=== PATIENT | male | born 1955 | race Caucasian/White ===

== ENCOUNTER → 2018-10-03 10:05 | Outpatient (CLI) | payer MEDICARE, OTHER, SELFPAY ==
--- NOTE | 2018-10-03 10:14 | VDLE_ITS ---
Reason For Study: Increase Swelling RIGHT LEFT GSV is normal. CFV is compressible, spontaneous, phasic, CFV is compressible, spontaneous, phasic, competent, and demonstrates normal competent and demonstrates normal augmentation. augmentation. FV is compressible, spontaneous, phasic, competent and demonstrates normal augmentation. POP V is compressible, spontaneous, phasic, competent and demonstrates normal augmentation. T/P Trunk is compressible. PTV is compressible. RT PerV is compressible. Procedure Exam performed in department. A preliminary report was called and/or faxed to Radha @ 10:36 am. Interpretation Summary Deep veins of the right lower extremity are patent and compressible segmentally. There is no evidence of right lower extremity deep vein thrombosis. Valvular competence appears intact within the proximal deep venous system on the right . The right greater saphenous vein appears patent and compressible segmentally. Ordering Physician: KAYLEN RENE Referring Physician: DOCTOR, OUT OF TOWN Performed By: Ashlie Bruce RVT, RDCS and Student
--- OUTSIDE RECORDS SUMMARY | 2018-11-19 00:35 | XMS RPT_ITS ---
:1955 Author Organization [place] Support Name Relationship Address Phone ESTELLA COLUNGA Unavailable [address] + [place] [address] LULA INGRAM Unavailable Unavailable + JORGE ALBERTO VILLAGRAN Unavailable [address] [facility] [address] + [place] [address] JAMAR LORENZANA Unavailable [address] + [place] [address] ESTELLA COLUNGA Unavailable [address] + [place] [address] LULA INGRAM Unavailable Unavailable + JORGE ALBERTO VILLAGRAN Unavailable [address] [facility] [address] + [place] [address] JAMAR LORENZANA Unavailable [address] + [place] [address] LULA COLUNGA Unavailable [address] + [address] [place] [address] D Unavailable Unavailable Unavailable LULA COLUNGA Unavailable [address] + [address] [place] [address] D Unavailable Unavailable Unavailable LULA COLUNGA Unavailable [address] + [address] [place] [address] D Unavailable Unavailable Unavailable LULA COLUNGA Unavailable [address] + [address] [place] [address] D Unavailable Unavailable Unavailable LULA COLUNGA Unavailable [address] + [address] [place] [address] D Unavailable Unavailable Unavailable LULA COLUNGA Unavailable [address] + [address] [place] [address] D Unavailable Unavailable Unavailable LULA COLUNGA Unavailable [address] + [address] [place] [address] D Unavailable Unavailable Unavailable LULA COLUNGA Unavailable [address] + [address] [place] [address] D Unavailable Unavailable Unavailable LULA COLUNGA Unavailable [address] + [address] [place] [address] D Unavailable Unavailable Unavailable LULA COLUNGA Unavailable [address] + [address] [place] [address] D Unavailable Unavailable Unavailable LULA COLUNGA Unavailable [address] + [address] [place] [address] D Unavailable Unavailable Unavailable LULA COLUNGA Unavailable [address] + [address] [place] [address] D Unavailable Unavailable Unavailable LULA COLUNGA Unavailable [address] + [address] [place] [address] D Unavailable Unavailable Unavailable LULA COLUNGA Unavailable [address] + [address] [place] [address] D Unavailable Unavailable Unavailable LULA COLUNGA Unavailable [address] + [address] [place] [address] D Unavailable Unavailable Unavailable LULA COLUNGA Unavailable [address] + [address] [place] [address] D Unavailable Unavailable Unavailable LULA COLUNGA Unavailable [address] + [address] [place] [address] D Unavailable Unavailable Unavailable LULA COLUNGA Unavailable [address] + [address] [place] [address] D Unavailable Unavailable Unavailable LULA COLUNGA Unavailable [address] + [address] [place] [address] D Unavailable Unavailable Unavailable LULA COLUNGA Unavailable [address] + [address] [place] [address] D Unavailable Unavailable Unavailable LULA COLUNGA Unavailable [address] + [address] [place] [address] D Unavailable Unavailable Unavailable LULA COLUNGA Unavailable [address] + [address] [place] [address] D Unavailable Unavailable Unavailable BRENEMAN, ESTELLA Unavailable [address] + [place] [address] LULA INGRAM Unavailable Unavailable + JORGE ALBERTO VILLAGRAN Unavailable [address] [facility] [address] + [place] [address] KABETHANY, JAMAR Unavailable [address] + [place] [address] BRENEMAN, ESTELLA Unavailable [address] + [place] [address] LULA INGRAM Unavailable Unavailable + JORGE ALBERTO VILLAGRAN Unavailable [address] [facility] [address] + [place] [address] KABETHANY, JAMAR Unavailable [address] + [place] [address] BRENEMAN, ESTELLA Unavailable [address] + [place] [address] LULA INGRAM Unavailable Unavailable + JORGE ALBERTO VILLAGRAN Unavailable [address] [facility] [address] + [place] [address] KAUF, JAMAR Unavailable [address] + [place] [address] LULA COLUNGA Unavailable [address] + [address] [place] [address] D Unavailable Unavailable Unavailable LULA COLUNGA Unavailable [address] + [address] [place] [address] D Unavailable Unavailable Unavailable LULA COLUNGA Unavailable [address] + [address] [place] [address] D Unavailable Unavailable Unavailable LULA COLUNGA Unavailable [address] + [address] [place] [address] D Unavailable Unavailable Unavailable LULA COLUNGA Unavailable [address] + [address] [place] [address] D Unavailable Unavailable Unavailable LULA COLUNGA Unavailable [address] + [address] [place] [address] D Unavailable Unavailable Unavailable LULA COLUNGA Unavailable [address] + [address] [place] [address] D Unavailable Unavailable Unavailable LULA COLUNGA Unavailable [address] + [address] [place] [address] D Unavailable Unavailable Unavailable LULA COLUNGA Unavailable [address] + [address] [place] [address] D Unavailable Unavailable Unavailable LULA COLUNGA Unavailable [address] + [address] [place] [address] D Unavailable Unavailable Unavailable LULA COLUNGA Unavailable [address] + [address] [place] [address] D Unavailable Unavailable Unavailable BRENEMAN, ESTELLA Unavailable [address] + [place] [address] LULA INGRAM Unavailable Unavailable + JORGE ALBERTO VILLAGRAN Unavailable [address] [facility] [address] + [place] [address] KAUF, JAMAR Unavailable [address] + [place] [address] LULA COLUNGA Unavailable [address] + [address] [place] [address] D Unavailable Unavailable Unavailable BRENEMAN, ESTELLA Unavailable [address] + [place] [address] LULA INGRAM Unavailable Unavailable + JORGE ALBERTO VILLAGRAN Unavailable [address] [facility] [address] + [place] [address] KAUF, JAMAR Unavailable [address] + [place] [address] BRENEMAN, ESTELLA Unavailable [address] + [place] [address] LULA INGRAM Unavailable Unavailable + JORGE ALBERTO VILLAGRAN Unavailable [address] [facility] [address] + [place] [address] KABETHANY, JAMAR Unavailable [address] + [place] [address] BRENEMAN, ESTELLA Unavailable [address] + [place] [address] LULA INGRAM Unavailable Unavailable + JORGE ALBERTO VILLAGRAN Unavailable [address] + [place] [address] KAUF, JAMAR Unavailable [address] + [place] [address] BRENEMAN, ESTELLA Unavailable [address] + [place] [address] LULA INGRAM Unavailable Unavailable + JORGE ALBERTO VILLAGRAN Unavailable [address] + [place] [address] KAUF, JAMAR Unavailable [address] + [place] [address] BRENEMAN, ESTELLA Unavailable [address] + [place] [address] LULA INGRAM Unavailable Unavailable + JORGE ALBERTO VILLAGRAN Unavailable [address] [facility] [address] + [place] [address] KAUF, JAMAR Unavailable [address] + [place] [address] BRENEMAN, ESTELLA Unavailable [address] + [place] [address] LULA INGRAM Unavailable Unavailable + JORGE ALBERTO VILLAGRAN Unavailable [address] + [place] [address] KAUF, JAMAR Unavailable [address] + [place] [address] BRENEMAN, ESTELLA Unavailable [address] + [place] [address] LULA INGRAM Unavailable Unavailable + JORGE ALBERTO VILLAGRAN Unavailable [address] + [place] [address] KAUF, JAMAR Unavailable [address] + [place] [address] BRENEMAN, ESTELLA Unavailable [address] + [place] [address] LULA INGRAM Unavailable Unavailable + JORGE ALBERTO VILLAGRAN Unavailable [address] + [place] [address] KABETHANY, JAMAR Unavailable [address] + [place] [address] BRENEMAN, ESTELLA Unavailable [address] + [place] [address] JORGE ALBERTO VILLAGRAN Unavailable [address] + [place] [address] SALOMÓN, JAMAR Unavailable [address] + [place] [address] BRENEMAN, ESTELLA Unavailable [address] + [place] [address] JORGE ALBERTO VILLAGRAN Unavailable [address] + [place] [address] KABETHANY, JAMAR Unavailable [address] + [place] [address] BRENEMAN, ESTELLA Unavailable [address] + [place] [address] JORGE ALBERTO VILLAGRAN Unavailable [address] + [place] [address] SALOMÓN, JAMAR Unavailable [address] + [place] [address] BRENEMAN, ESTELLA Unavailable [address] + [place] [address] JORGE ALBERTO VILLAGRAN Unavailable [address] + [place] [address] KABETHANY, JAMAR Unavailable [address] + [place] [address] BRENEMAN, ESTELLA Unavailable [address] + [place] [address] JORGE ALBERTO VILLAGRAN Unavailable [address] + [place] [address] JORGE ALBERTO VILLAGRAN Unavailable [address] [facility] [address] + [place] [address] BRENEMAN, ESTELLA Unavailable [address] + [place] [address] BRENEMAN, ESTELLA Unavailable [address] + [place] [address] CHARLENE VILLAGRANLI Unavailable [address] [facility] [address] + [place] [address] BRENEMAN, ESTELLA Unavailable [address] + [place] [address] BRENEMAN, ESTELLA Unavailable [address] + [place] [address] CHARLENE VILLAGRANLI Unavailable [address] [address] + [place] [address] BRENEMAN, ESTELLA Unavailable [address] + [place] [address] BRENEMAN, ESTELLA Unavailable [address] + [place] [address] TYSHAWN JORGE ALBERTO Unavailable [address] [facility] + [facility] [address] BRENEMAN, ESTELLA Unavailable [address] + [place] [address] BRENEMAN, ESTELLA Unavailable [address] + [place] [address] JORGE ALBERTO VILLAGRAN Unavailable [address] [facility] [address] + [place] [address] BRENEMAN, ESTELLA Unavailable [address] + [place] [address] BRENEMAN, ESTELLA Unavailable [address] + [place] [address] TYSHAWN JORGE ALBERTO Unavailable [address] [facility] [address] + [facility] [address] Care Team Providers Name Role Phone BOB KEY, TRINITY Gutiérrez Attending Unavailable ALLEN CANTRELL, MER HERNANDEZ Primary Care Unavailable TRINITY ROJAS MD Admitting Unavailable BLAZE ZAMBRANO MD Attending Unavailable ALLEN KEY., MER HERNANDEZ Primary Care Unavailable BLAZE ZAMBRANO MD Attending Unavailable PHYSICIAN, NONE Primary Care Unavailable BLAZE ZAMBRANO MD Attending Unavailable PHYSICIAN, NONE Primary Care Unavailable BLAZE ZAMBRANO MD Attending Unavailable PHYSICIAN, NONE Primary Care Unavailable GARYHRI, ROXANA Primary Care Unavailable NOAH BOUCHER MD, V. Admitting Unavailable NOAH BOUCHER MD, V. Attending Unavailable BRENDAN العراقي MD Consulting Unavailable YODIT TORRES MD Consulting Unavailable MARILU MERCER MD Consulting Unavailable KRISTY DAMON Consulting Unavailable JACKELIN BURGER MD Attending Unavailable GARYHRI, ROXANA Primary Care Unavailable CHASUZANNEHRI, ROXANA Primary Care Unavailable ALICIA SEE MD Admitting Unavailable ALICIA SEE MD Attending Unavailable LEIDY CANTRELL, DR. FALCON Consulting Unavailable GARYHRI, ROXANA Primary Care Unavailable GUY COLES MD Admitting Unavailable HALIMAI, ROXANA Attending Unavailable HALIMAI, ROXANA Consulting Unavailable ORTIZ PERERA MD Consulting Unavailable JACKELIN BURGER MD Consulting Unavailable BLAZE ZAMBRANO MD Consulting Unavailable CONRADO HIGGINS MD Admitting Unavailable CONRADO HIGGINS MD Attending Unavailable NAHID, ROXANA Primary Care Unavailable ROXANA WHITFIELD Consulting Unavailable DAMASO Eid, CECI Panchal Consulting Unavailable CONRADO HIGGINS MD Attending Unavailable JACKELIN BURGER MD Primary Care Unavailable JACKELIN BURGER MD Attending Unavailable JACKELIN BURGER MD Primary Care Unavailable JACKELIN BURGER MD Primary Care Unavailable CHRIS VILLAR, DR. JERI Currie Admitting Unavailable BRENDAN العراقي MD Attending Unavailable BLAZE ZAMBRANO MD Consulting Unavailable BRENDAN العراقي MD Consulting Unavailable JACKELIN BURGER MD Primary Care Unavailable BLAZE ZAMBRANO MD Consulting Unavailable JIM BARRETO MD Admitting Unavailable JIM BARRETO MD Attending Unavailable SHAWNEE CANTRELL, DR. AVITIA Consulting Unavailable JACKELIN BURGER MD Consulting Unavailable SINCERE SHETTY MD Consulting Unavailable JACKELIN BURGER MD Primary Care Unavailable JOSE L BARBOSA MD Attending Unavailable JACKELIN BURGER MD Primary Care Unavailable BLAZE ZAMBRANO MD Admitting Unavailable BLAZE ZAMBRANO MD Attending Unavailable BLAZE ZAMBRANO MD Consulting Unavailable JACKELIN BURGER MD Attending Unavailable JACKELIN BURGER MD Primary Care Unavailable RADHA GARNER, KAYLEN Miller Attending Unavailable JACKELIN BURGER MD Primary Care Unavailable HARINI GUNDERSON MD, JR. Attending Unavailable JACKELIN BURGER MD Primary Care Unavailable LENA JENSEN MD Admitting Unavailable JACKELIN BURGER MD Primary Care Unavailable RAÚL REEVES MD Attending Unavailable VANNA CLAIRE DO Consulting Unavailable JACKELIN BURGER MD Consulting Unavailable RAÚL REEVES MD Consulting Unavailable SERA HYDE MD Consulting Unavailable RAMA BRITTON Consulting Unavailable JC FERNANDES MD Consulting Unavailable SHAVONNE MYERS Consulting Unavailable LINDY LAWSON MD Consulting Unavailable PRASHANT CANTRELL, DR. FIGUEROA Attending Unavailable JACKELIN BURGER MD Primary Care Unavailable RAÚL REEVES MD Attending Unavailable JACKELIN BURGER MD Primary Care Unavailable JIM BARRETO MD Attending Unavailable JACKELIN BURGER MD Primary Care Unavailable JIM BARRETO MD Admitting Unavailable TRINITY ROJAS MD Consulting Unavailable ZOIE JJ MD Consulting Unavailable LIBERTY WOODY MD Consulting Unavailable JACKELIN NOVAK MD Consulting Unavailable HARINI CAMPA DO Consulting Unavailable MARIANA GORE MD Consulting Unavailable BAILEE LOPEZ MD Consulting Unavailable DR. JUSTIN GUY DO Consulting Unavailable CORNELIO GALE MD, JUSTO GUZMÁN Consulting Unavailable HARINI WEBB DO Attending Unavailable JACKELIN BURGER MD Primary Care Unavailable FIOR LYNCH Attending Unavailable FIOR LYNCH Referring Unavailable Primay Care Physicia, No Primary Care Unavailable FIOR LYNCH Primary Care Unavailable James Gunderson Admitting Unavailable Jeremie Blankenship Consulting Unavailable Octavio Alvarez Attending Unavailable Raúl Mendes Consulting Unavailable Aaron Cool Consulting Unavailable Gumaro Ott Consulting Unavailable Sudheer Ken Consulting Unavailable James Gunderson Admitting Unavailable James Gunderson Attending Unavailable FIOR LYNCH Primary Care Unavailable Wunning, Jeremie Consulting Unavailable Tereletsky, James Consulting Unavailable Tereletsky, James Admitting Unavailable Sementi, Geraldine Attending Unavailable FIOR LYNCH Primary Care Unavailable Wunning, Jeremie Consulting Unavailable Sementi, Geradline Consulting Unavailable Tereletsky, James Admitting Unavailable Jopperi, Octavio Attending Unavailable FIOR LYNCH Primary Care Unavailable Wunning, Jeremie Consulting Unavailable Jopperi, Octavio Consulting Unavailable Tereletsky, James Admitting Unavailable Jopperi, Octavio Attending Unavailable FIOR LYNCH Primary Care Unavailable Wunning, Jeremie Consulting Unavailable Vaughn, Raúl Consulting Unavailable Jopperi, Octavio Consulting Unavailable Tereletsky, James Admitting Unavailable Jopperi, Octavio Attending Unavailable FIOR LYNCH Primary Care Unavailable Wunning, Jeremie Consulting Unavailable Vaughn, Raúl Consulting Unavailable Jopperi, Octavio Consulting Unavailable Tereletsky, James Admitting Unavailable FIOR LYNCH Primary Care Unavailable Wunning, Jeremie Consulting Unavailable Jopperi, Octavio Attending Unavailable Vaughn, Raúl Consulting Unavailable Silvina, Aaron Consulting Unavailable Jopperi, Octavio Consulting Unavailable Tereletsky, James Admitting Unavailable Moodispaw, Gumaro Attending Unavailable FIOR LYNCH Primary Care Unavailable Wunning, Jeremie Consulting Unavailable Vaughn, Raúl Consulting Unavailable Silvina, Aaron Consulting Unavailable Moodispaw, Gumaro Consulting Unavailable Jopperi, Octavio Consulting Unavailable Tereletsky, James Admitting Unavailable Moodispaw, Gumaro Attending Unavailable FIOR LYNCH Primary Care Unavailable Wunning, Jeremie Consulting Unavailable Vaughn, Raúl Consulting Unavailable Silvina, Aaron Consulting Unavailable Moodispaw, Gumaro Consulting Unavailable Jesus Manuel, Sudheer Consulting Unavailable Jopperi, Octavio Consulting Unavailable Tereletsky, James Admitting Unavailable Jopperi, Octavio Attending Unavailable FIOR LYNCH Primary Care Unavailable Wunning, Jeremie Consulting Unavailable Vaughn, Raúl Consulting Unavailable Silvina, Aaron Consulting Unavailable Moodispaw, Gumaro Consulting Unavailable Jesus Manuel, Sudheer Consulting Unavailable Jopperi, Octavio Consulting Unavailable Tereletsky, James Admitting Unavailable Jesus Manuel, Sudheer Attending Unavailable FIOR LYNCH Primary Care Unavailable Wunning, Jeremie Consulting Unavailable Vaughn, Raúl Consulting Unavailable Silvina, Aaron Consulting Unavailable Moodispaw, Gumaro Consulting Unavailable Sudheer Ken Consulting Unavailable Niharika Octavio Consulting Unavailable FIOR LYNCH Attending Unavailable FIOR LYNCH Referring Unavailable FIOR LYNCH Primary Care Unavailable Harini Gunderson Attending Unavailable Harini Gunderson Referring Unavailable Primay Care Physicia, No Primary Care Unavailable FIOR LYNCH Primary Care Unavailable Kemp, Gumaro Admitting Unavailable Moodispaw, Gumaro Consulting Unavailable Leidy Parrish Attending Unavailable Elayne, Jayaprakash Consulting Unavailable Kemp, Gumaro Admitting Unavailable Kemp, Gumaro Attending Unavailable FIOR LYNCH Primary Care Unavailable Kemp, Gumaro Consulting Unavailable Kemp, Gumaro Admitting Unavailable FIOR LYNCH Primary Care Unavailable MoodisGumaro wills Consulting Unavailable Ashelfah, Ghasem Attending Unavailable Ashelfah, Ghasem Consulting Unavailable Kemp, Gumaro Admitting Unavailable FIOR LYNCH Primary Care Unavailable Moodispaprerna, Gumaro Consulting Unavailable Ashelfah, Ghasem Attending Unavailable Ashelfah, Ghasem Consulting Unavailable Kemp, Gumaro Admitting Unavailable Moodispaprerna, Guamro Attending Unavailable FIOR LYNCH Primary Care Unavailable Moodispaw, Gumaro Consulting Unavailable Ashelfah, Ghasem Consulting Unavailable Kemp, Gumaro Admitting Unavailable FIOR LYNCH Primary Care Unavailable MoodisGumaro wills Consulting Unavailable Ashelfah, Ghasem Attending Unavailable Ashelfah, Ghasem Consulting Unavailable Kemp, Gumaro Admitting Unavailable Moodispaw, Gumaro Attending Unavailable FIOR LYNCH Primary Care Unavailable Moodispaprerna, Gumaro Consulting Unavailable Ashelfah, Ghasem Consulting Unavailable Kemp, Gumaro Admitting Unavailable Moodispaprerna, Gumaro Attending Unavailable FIOR LYNCH Primary Care Unavailable Moodispaprerna, Gumaro Consulting Unavailable Ashelfah, Ghasem Consulting Unavailable Kemp, Gumaro Admitting Unavailable FIOR LYNCH Primary Care Unavailable MoodisGumaro wills Consulting Unavailable Ashelfah, Ghasem Attending Unavailable Ashelfah, Ghasem Consulting Unavailable Kemp, Gumaro Admitting Unavailable Ashelfah, Ghasem Attending Unavailable FIOR LYNCH Primary Care Unavailable MoodisGumaro wills Consulting Unavailable Elayne, Jayaprakash Consulting Unavailable Ashelfah, Ghasem Consulting Unavailable Kemp, Gumaro Admitting Unavailable Moodispaw, Gumaro Attending Unavailable FIOR LYNCH Primary Care Unavailable Moodispaw, Gumaro Consulting Unavailable Elayne, Jayaprakash Consulting Unavailable Ashelfah, Ghasem Consulting Unavailable Kemp, Gumaro Admitting Unavailable Ashelfah, Ghasem Attending Unavailable FIOR LYNCH Primary Care Unavailable Moodispaw, Gumaro Consulting Unavailable Elayne, Jayaprakash Consulting Unavailable Ashelfah, Ghasem Consulting Unavailable Kemp, Gumaro Admitting Unavailable Moodcynthia, Gumaro Attending Unavailable FIOR LYNCH Primary Care Unavailable Moodispaprerna, Gumaro Consulting Unavailable Elayne, Jayaprakash Consulting Unavailable Ashelfah, Ghasem Consulting Unavailable Kemp, Gumaro Admitting Unavailable FIOR LYNCH Primary Care Unavailable Moodisjohann, Gumaro Consulting Unavailable Leidy Parrish Attending Unavailable Elayne, Jayaprakash Consulting Unavailable Leidy Parrish Consulting Unavailable Kemp, Gumaro Admitting Unavailable Moodispaprerna, Gumaro Attending Unavailable FIOR LYNCH Primary Care Unavailable Moodispaprerna, Gumaro Consulting Unavailable Elayne, Jayaprakash Consulting Unavailable Leidy Parrish Consulting Unavailable FIOR LYNCH Primary Care Unavailable Sementi, Geraldine Admitting Unavailable Knapic, Justin Consulting Unavailable Chuck, Akhil Attending Unavailable Wunning, Jeremie Consulting Unavailable Vaughn, Raúl Consulting Unavailable Bakhous, Aziz Consulting Unavailable Sementi, Geraldine Admitting Unavailable Sementi, Geraldine Attending Unavailable FIOR LYNCH Primary Care Unavailable Knapic, Justin Consulting Unavailable Wunning, Jeremie Consulting Unavailable Sementi, Geraldine Consulting Unavailable Sementi, Geraldine Admitting Unavailable Chuck, Akhil Attending Unavailable FIOR LYNCH Primary Care Unavailable Knapic, Justin Consulting Unavailable Wunning, Jeremie Consulting Unavailable Chuck, Akhil Consulting Unavailable Sementi, Geraldine Admitting Unavailable Chuck, Akhil Attending Unavailable FIOR LYNCH Primary Care Unavailable Knapic, Justin Consulting Unavailable Wunning, Jeremie Consulting Unavailable Vaughn, Raúl Consulting Unavailable Bakhous, Aziz Consulting Unavailable Chuck, Akhil Consulting Unavailable Jonathanispaw, Gumaro Attending Unavailable Leidy Parrish Referring Unavailable PROBLEMS PROBLEMS DATE TYPE CONDITION / CODE ATTENDING STATUS SOURCE 11/12/2018 Unknown R07.9 - Chest pain, Moodispaw, Active [facility] unspecified / [facility] R07.9(ICD-10) Hospital Repository 11/12/2018 Unknown R06.02 - Shortness Moodispaw, Active Sandra of breath / [facility] R06.02(ICD-10) Hospital Repository 11/12/2018 Unknown 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, 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 / I25.10(ICD-10) 11/12/2018 Unknown 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, Active Sandra cardiomyopathy / [facility] I25.5(ICD-10) Hospital Repository 11/12/2018 Unknown I50.23 - Acute on Moodispaw, Active Sandra chronic systolic [facility] (congestive) heart Hospital failure / Repository I50.23(ICD-10) 11/12/2018 Unknown 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, 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 / Z95.810(ICD-10) 11/12/2018 Unknown I11.0 - Hypertensive Moodispaw, Active [facility] heart disease with [facility] heart failure / Hospital I11.0(ICD-10) Repository 11/12/2018 Unknown Z95.5 - Presence of Moodispaw, Active Sandra coronary angioplasty [facility] implant and graft / Hospital Z95.5(ICD-10) Repository 09/19/2018 Admitting Chronic systolic JENNYFER KEY, Active [facility] Diagnosis (congestive) heart [facility] failure / Repository I50.22(ICD-10) PROCEDURES PROCEDURES No Procedure Records FoundRESULTS RESULTS .GFR Collected: 11/12/2018 Status: F Source: [facility] 9:17 AM FOUNDATION REPOSITORY TYPE CODE TESTS RESULT OUT OF REFERENCE UNITS RANGE LAB GFRAA(LOINC ml/min/1.73 ) sqm GFR >60 [place] Result Comment: GFR Population mean for , Non- Americans Ages 20-29 = 116 mL/min/1.73 sq.m. Ages 30-39 = 107 mL/min/1.73 sq.m. Ages 40-49 = 99 mL/min/1.73 sq.m. Ages 50-59 = 93 mL/min/1.73 sq.m. Ages 60-69 = 85 mL/min/1.73 sq.m. Ages 70+ = 75 mL/min/1.73 sq.m. Chronic Kidney Disease: Less than 60 mL/min/1.73 square meters End Stage Renal Disease: Less than 15 mL/min/1.73 square meters LAB GFRNO(LOINC) ml/min/1.73sqm GFR Non- 54 Result Comment: GFR Population mean for , Non- Americans Ages 20-29 = 116 mL/min/1.73 sq.m. Ages 30-39 = 107 mL/min/1.73 sq.m. Ages 40-49 = 99 mL/min/1.73 sq.m. Ages 50-59 = 93 mL/min/1.73 sq.m. Ages 60-69 = 85 mL/min/1.73 sq.m. Ages 70+ = 75 mL/min/1.73 sq.m. Chronic Kidney Disease: Less than 60 mL/min/1.73 square meters End Stage Renal Disease: Less than 15 mL/min/1.73 square meters Performed By: #### GFR, BMP #### [address] [address] BMP Collected: 11/12/2018 Status: F Source: [facility] 9:17 AM FOUNDATION REPOSITORY TYPE CODE TESTS RESULT OUT OF REFERENCE UNITS RANGE LAB GLU(LOINC) 82-115 mg/dL Glucose Level 97 LAB NA(LOINC) 136-145 mEq/L Sodium Level 140 LAB K(LOINC) 3.5-5.0 mEq/L Low Potassium Level 2.9 LAB CL(LOINC) 98-110 mEq/L Chloride 103 LAB CO2(LOINC) 22-32 mEq/L CO2 31 LAB EBAL(LOINC 4.0-15.0 mEq/L ) Electrolyte Balance 6.0 LAB BUN(LOINC) 8.0-22.0 mg/dL BUN High 52.0 LAB CRE(LOINC) 0.60-1.40 mg/dL Creatinine Lvl (s) 1.34 LAB BC(LOINC) 10.0-22.0 ratio High BUN/Creatinine 38.8 Ratio LAB CA(LOINC) 8.4-10.1 mg/dL Low Calcium Lvl 7.3 Performed By: #### GFR, BMP #### [address] [address] [address] HEAD OR BRAIN W/O Observed: 11/11/2018 Status: F Source: [facility] CONTRAST 10:37 AM [facility] REPOSITORY ORIGINAL CT HEAD OR BRAIN W/O CONTRAST This exam was performed according to our departmental dose optimization program, and includes the following measures where applicable: automated exposure control, adjustment of the mAs and/or kVp accord ing to patient size and/or exam, and an iterative reconstruction algorithm. CLINICAL STATEMENT: Altered mentation. COMPARISON: 11/11/2018 FINDINGS: There is smith-white differentiation loss and mild volume loss in the RIGHT parietal lobe medially, suspicious for a subacute to remote infarct. There is a punctate age-indeterminate lacunar in farct in the RIGHT caudate head. There is no acute intracranial hemorrhage. Ventricles are stable. The calvarium and skull base are intact. Mild paranasal sinus mucosal thickening is visible. The tympanomastoid cavities are clear. IMPRESSION: 1. No acute intracranial hemorrhage. 2. 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 3. Punctate age-indeterminate lacunar infarct in the RIGHT caudate head. Interpreted By: Justin Jacobs Preliminary Report By: Justin Jacobs Electronically Signed By: Justin Jacobs Dictated Date: 11/11/2018 10:56:20 AM Prelim Date: 11/11/2018 10:56:20 AM Sign Date: 11/11/2018 11:01:54 AM Observed: 11/11/2018 Status: P Source: [facility] CUR 10:13 AM [facility] REPOSITORY . MICRO - Microbiology PROCEDURE: Urine Culture [*1] SOURCE: Urine, Corea Catheter BODY SITE: COLLECTED DATE/TIME: 11/11/2018 10:13 EST RECEIVED DATE/TIME: 11/11/2018 10:44 EST START DATE/TIME: 11/11/2018 10:44 EST FREE TEXT SOURCE: PRELIMINARY REPORTS Preliminary Report [] Verified Date/Time/Personnel: 11/12/2018 15:05 EST Culture results pending. Performing Locations *1: This test was performed at: [facility], [address] [place] [address], [facility]- , [facility] Performed By: #### CUR #### [place] [address] CBC Collected: 11/11/2018 Status: F Source: [facility] 5:07 AM [facility] REPOSITORY TYPE CODE TESTS RESULT OUT OF REFERENCE UNITS RANGE LAB WBC(LOINC) 4.50-10.80 10 3/mcL WBC 6.60 LAB RBCCT(LOINC 4.50-6.00 10 6/mcL ) Low RBC 2.85 LAB HGB(LOINC) 13.0-17.5 G/dL Low Hgb 8.5 LAB HCT(LOINC) 40.0-52.0 % Low Hct 25.4 LAB MCV(LOINC) 81.0-100.0 fL MCV 89.4 LAB MCH(LOINC) 27.0-33.0 pg MCH 29.7 LAB MCHC(LOINC) 32.0-36.0 G/dL MCHC 33.2 LAB RDW(LOINC) 11.5-15.5 % High RDW 16.8 LAB PLT(LOINC) 150-450 10 3/mcL Platelet 177 LAB MPV(LOINC) 6.4-10.5 fL MPV 7.5 Performed By: #### CBC, ADIFF, ANEU, BMP, GFR #### [place] [address] .AUTO DIFF Collected: 11/11/2018 Status: F Source: [facility] 5:07 AM [facility] REPOSITORY TYPE CODE TESTS RESULT OUT OF REFERENCE UNITS RANGE LAB MOLLY(LOINC) 50.0-75.0 % Neutrophil % 59.6 LAB LYM(LOINC) 20.0-40.0 % Low Lymphocyte % 14.1 LAB MON(LOINC) 2.0-13.0 % Monocyte % 11.8 LAB EO(LOINC) 0.0-6.0 % High Eosinophil % 13.7 LAB BAS(LOINC) 0.0-2.5 % Basophil % 0.8 LAB ABLYM(LOIN 0.90-4.32 10 3/mcL C) Lymphocyte, 0.90 Absolute LAB FRANK(LOINC 0.09-1.40 10 3/mcL ) Monocyte, 0.80 Absolute LAB AEOS(LOINC 0.00-0.65 10 3/mcL ) High Eosinophil, 0.90 Absolute LAB ABAS(LOINC 0.00-0.27 10 3/mcL ) Basophil, 0.10 Absolute Performed By: #### CBC, ADIFF, ANEU, BMP, GFR #### [facility] [address] [place], [place] [address] .NEUABS Collected: 11/11/2018 Status: F Source: [facility] 5:07 AM [facility] REPOSITORY TYPE CODE TESTS RESULT OUT OF REFERENCE UNITS RANGE LAB ANEU(LOINC) 2.25-8.10 10 3/mcL Neutrophil, 3.90 Absolute Performed By: #### CBC, ADIFF, ANEU, BMP, GFR #### [place] [address] BMP Collected: 11/11/2018 Status: F Source: [facility] 5:07 AM [facility] REPOSITORY TYPE CODE TESTS RESULT OUT OF REFERENCE UNITS RANGE LAB GLU(LOINC) 82-115 mg/dL Glucose High Level 151 LAB NA(LOINC) 136-145 mEq/L Sodium Level 141 LAB K(LOINC) 3.5-5.0 mEq/L Potassium Level 4.6 LAB CL(LOINC) 98-110 mEq/L Chloride 106 LAB CO2(LOINC) 22-32 mEq/L CO2 26 LAB EBAL(LOINC 4.0-15.0 mEq/L ) Electrolyte Balance 9.0 LAB BUN(LOINC) 8.0-22.0 mg/dL BUN High 57.0 LAB CRE(LOINC) 0.60-1.40 mg/dL Creatinine High Lvl (s) 1.65 LAB BC(LOINC) 10.0-22.0 ratio High BUN/Creatinine 34.5 Ratio LAB CA(LOINC) 8.4-10.1 mg/dL Calcium Lvl 8.9 Performed By: #### CBC, ADIFF, ANEU, BMP, GFR #### [address] [address] .GFR Collected: 11/11/2018 Status: F Source: [facility] 5:07 AM [facility] REPOSITORY TYPE CODE TESTS RESULT OUT OF REFERENCE UNITS RANGE LAB GFRAA(LOINC ml/min/1.73 ) sqm GFR 51 [place] Result Comment: GFR Population mean for , Non- Americans Ages 20-29 = 116 mL/min/1.73 sq.m. Ages 30-39 = 107 mL/min/1.73 sq.m. Ages 40-49 = 99 mL/min/1.73 sq.m. Ages 50-59 = 93 mL/min/1.73 sq.m. Ages 60-69 = 85 mL/min/1.73 sq.m. Ages 70+ = 75 mL/min/1.73 sq.m. Chronic Kidney Disease: Less than 60 mL/min/1.73 square meters End Stage Renal Disease: Less than 15 mL/min/1.73 square meters LAB GFRNO(LOINC) ml/min/1.73sqm GFR Non- 42 Result Comment: GFR Population mean for , Non- Americans Ages 20-29 = 116 mL/min/1.73 sq.m. Ages 30-39 = 107 mL/min/1.73 sq.m. Ages 40-49 = 99 mL/min/1.73 sq.m. Ages 50-59 = 93 mL/min/1.73 sq.m. Ages 60-69 = 85 mL/min/1.73 sq.m. Ages 70+ = 75 mL/min/1.73 sq.m. Chronic Kidney Disease: Less than 60 mL/min/1.73 square meters End Stage Renal Disease: Less than 15 mL/min/1.73 square meters Performed By: #### CBC, ADIFF, ANEU, BMP, GFR #### [place] [address] 12 LEAD ELECTROCARDIOGRAM Observed: 11/10/2018 Status: F Source: [place] 9:09 AM [facility] REPOSITORY [facility] Cardiovascular Services [address] [place] [id number] 12 Lead EKG 11/05/18 1251 MR#: [id number] Acct: [id number] Name: JADA COLUNGA Rep #: [id number] : 1955 63 From: Faisal Rg MD Attending Dr: Akhil Woods MD Status: DIS IN Ordering Dr: Jeremie Li MD Date: 11/05/18 Location: MS3 Sex: M C Admitted: 11/05/18 Test Reason : FALL Blood Pressure : / mmHG Vent. Rate : 072 BPM Atrial Rate : 072 BPM P-R Int : 232 ms QRS Dur : 170 ms QT Int : 468 ms P-R-T Axes : 071 259 052 degrees QTc Int : 512 ms Sinus rhythm with 1st degree A-V block Right bundle branch block Abnormal ECG Confirmed by SHERI KEY, FAISAL ([id number]), senior editor DORI PRAJAPATI ([id number]) on 11/10/2018 9:09:22 AM Referred By: Harini Gunderson Confirmed By:FAISAL RG MD 11/10/1809 Date Faisal Rg MD CC: Jeremie Li MD; OUT OF TOWN DOCTOR; Akhil Woods MD Signed BMP Collected: 11/10/2018 Status: F Source: [facility] 5:18 AM [facility] REPOSITORY TYPE CODE TESTS RESULT OUT OF REFERENCE UNITS RANGE LAB GLU(LOINC) 82-115 mg/dL Glucose High Level 190 LAB NA(LOINC) 136-145 mEq/L Low Sodium Level 134 LAB K(LOINC) 3.5-5.0 mEq/L Potassium Level 4.4 LAB CL(LOINC) 98-110 mEq/L Chloride 99 LAB CO2(LOINC) 22-32 mEq/L CO2 27 LAB EBAL(LOINC 4.0-15.0 mEq/L ) Electrolyte Balance 8.0 LAB BUN(LOINC) 8.0-22.0 mg/dL BUN High 60.0 LAB CRE(LOINC) 0.60-1.40 mg/dL Creatinine High Lvl (s) 1.70 LAB BC(LOINC) 10.0-22.0 ratio High BUN/Creatinine 35.3 Ratio LAB CA(LOINC) 8.4-10.1 mg/dL Low Calcium Lvl 7.5 Performed By: #### BMP, PBNP, GFR, CBC, ADIFF, ANEU, IFES #### [address] [address] PBNP Collected: 11/10/2018 Status: F Source: [facility] 5:18 AM [facility] REPOSITORY TYPE CODE TESTS RESULT OUT OF REFERENCE UNITS RANGE LAB PBNP(LOINC) 0-900 pg/mL High N-Terminal 7039 proBNP Result Comment: NT-proBNP results of less than 300 pg/mL effectively rules out acute congestive heart failure with 99% negative predictive value. Performed By: #### BMP, PBNP, GFR, CBC, ADIFF, ANEU, IFES #### [address] [address] .GFR Collected: 11/10/2018 Status: F Source: [facility] 5:18 AM [facility] REPOSITORY TYPE CODE TESTS RESULT OUT OF REFERENCE UNITS RANGE LAB GFRAA(LOINC ml/min/1.73 ) sqm GFR 50 [place] Result Comment: GFR Population mean for , Non- Americans Ages 20-29 = 116 mL/min/1.73 sq.m. Ages 30-39 = 107 mL/min/1.73 sq.m. Ages 40-49 = 99 mL/min/1.73 sq.m. Ages 50-59 = 93 mL/min/1.73 sq.m. Ages 60-69 = 85 mL/min/1.73 sq.m. Ages 70+ = 75 mL/min/1.73 sq.m. Chronic Kidney Disease: Less than 60 mL/min/1.73 square meters End Stage Renal Disease: Less than 15 mL/min/1.73 square meters LAB GFRNO(LOINC) ml/min/1.73sqm GFR Non- 41 Result Comment: GFR Population mean for , Non- Americans Ages 20-29 = 116 mL/min/1.73 sq.m. Ages 30-39 = 107 mL/min/1.73 sq.m. Ages 40-49 = 99 mL/min/1.73 sq.m. Ages 50-59 = 93 mL/min/1.73 sq.m. Ages 60-69 = 85 mL/min/1.73 sq.m. Ages 70+ = 75 mL/min/1.73 sq.m. Chronic Kidney Disease: Less than 60 mL/min/1.73 square meters End Stage Renal Disease: Less than 15 mL/min/1.73 square meters Performed By: #### BMP, PBNP, GFR, CBC, ADIFF, ANEU, IFES #### [address] [address] CBC Collected: 11/10/2018 Status: F Source: [facility] 5:18 AM [facility] REPOSITORY TYPE CODE TESTS RESULT OUT OF REFERENCE UNITS RANGE LAB WBC(LOINC) 4.50-10.80 10 3/mcL WBC 7.80 LAB RBCCT(LOINC 4.50-6.00 10 6/mcL ) Low RBC 2.90 LAB HGB(LOINC) 13.0-17.5 G/dL Low Hgb 8.6 LAB HCT(LOINC) 40.0-52.0 % Low Hct 26.0 LAB MCV(LOINC) 81.0-100.0 fL MCV 89.7 LAB MCH(LOINC) 27.0-33.0 pg MCH 29.6 LAB MCHC(LOINC) 32.0-36.0 G/dL MCHC 33.0 LAB RDW(LOINC) 11.5-15.5 % High RDW 16.9 LAB PLT(LOINC) 150-450 10 3/mcL Platelet 185 LAB MPV(LOINC) 6.4-10.5 fL MPV 7.9 Performed By: #### BMP, PBNP, GFR, CBC, ADIFF, ANEU, IFES #### [address] [address] .AUTO DIFF Collected: 11/10/2018 Status: F Source: [facility] 5:18 [facility] REPOSITORY TYPE CODE TESTS RESULT OUT OF REFERENCE UNITS RANGE LAB MOLLY(LOINC) 50.0-75.0 % High Neutrophil % 76.1 LAB LYM(LOINC) 20.0-40.0 % Low Lymphocyte % 9.7 LAB MON(LOINC) 2.0-13.0 % Monocyte % 10.1 LAB EO(LOINC) 0.0-6.0 % Eosinophil % 3.5 LAB BAS(LOINC) 0.0-2.5 % Basophil % 0.6 LAB ABLYM(LOIN 0.90-4.32 10 3/mcL C) Low Lymphocyte, 0.80 Absolute LAB FRANK(LOINC 0.09-1.40 10 3/mcL ) Monocyte, 0.80 Absolute LAB AEOS(LOINC 0.00-0.65 10 3/mcL ) Eosinophil, 0.30 Absolute LAB ABAS(LOINC 0.00-0.27 10 3/mcL ) Basophil, 0.00 Absolute Performed By: #### BMP, PBNP, GFR, CBC, ADIFF, ANEU, IFES #### [address] [address] .NEUABS Collected: 11/10/2018 Status: F Source: [place] [address]:18 AM [facility] REPOSITORY TYPE CODE TESTS RESULT OUT OF REFERENCE UNITS RANGE LAB ANEU(LOINC) 2.25-8.10 10 3/mcL Neutrophil, 6.00 Absolute Performed By: #### BMP, PBNP, GFR, CBC, ADIFF, ANEU, IFES #### [facility] [address] [place] [address] IFES Collected: 11/10/2018 Status: F Source: [facility] 5:18 AM [facility] REPOSITORY TYPE CODE TESTS RESULT OUT OF REFERENCE UNITS RANGE LAB IFES(LUDMILA NC) IFES Immunofixation Interpretation electrophoresis of serum show the presence of a faint possible Result Comment: Electronically Signed by: JAMES WINTERS DO 11/10/2018 11:45 EST Performed By: #### BMP, PBNP, GFR, CBC, ADIFF, ANEU, IFES #### [facility] [address] [place] [address] XR FOOT TWO VIEWS Observed: 11/10/2018 Status: F Source: [facility] RIGHT 5:08 AM [facility] REPOSITORY ORIGINAL XR FOOT TWO VIEWS RIGHT CLINICAL STATEMENT: infection / osteomyelitis , patient has a sore on the bottom of the foot COMPARISON: None FINDINGS: There is moderate arterial calcification in the foot/ankle region. Moderate dorsal soft tissue edema. No soft tissue gas. Bones in the foot show no fracture, lytic process or periosteal reaction. Degene rative changes at the ankle. IMPRESSION: No acute bony abnormality. Soft tissue edema and atherosclerotic arterial calcifications. Interpreted By: Elliott Olivarez MD Preliminary Report By: Elliott Olivarez MD Electronically Signed By: Elliott Olivarez MD Dictated Date: 11/10/2018 8:35:04 AM Prelim Date: 11/10/2018 8:35:04 AM Sign Date: 11/10/2018 8:36:08 AM TROPI Collected: 11/09/2018 Status: F Source: [facility] 10:36 AM [facility] REPOSITORY TYPE CODE TESTS RESULT OUT OF REFERENCE UNITS RANGE LAB TROPI(LOINC 0.000-0.040 ng/mL ) Troponin I 0.023 Result Comment: Troponin I reference ranges (06/28/14): 0.00-0.040 ng/mL Negative and non-diagnostic. >0.040 ng/mL Consistent with cardiac damage, increased clinical risk and possibility of myocardial infarction. Serial measurements, a rise & fall in test results, clinical history, appropriate symptoms and/or ECG changes may help assess possibility of UT. *Other non-acute coronary syndrome conditions such as CHF, myocarditis, pulmonary emboli, sepsis and cardiac surgery could result in myocardial damage and increased troponin levels. Performed By: #### TROPI #### [address] [address] CBC Collected: 11/09/2018 Status: F Source: [facility] 10:36 AM [facility] REPOSITORY TYPE CODE TESTS RESULT OUT OF REFERENCE UNITS RANGE LAB WBC(LOINC) 4.50-10.80 10 3/mcL WBC 8.20 LAB RBCCT(LOINC 4.50-6.00 10 6/mcL ) Low RBC 3.19 LAB HGB(LOINC) 13.0-17.5 G/dL Low Hgb 9.4 LAB HCT(LOINC) 40.0-52.0 % Low Hct 28.7 LAB MCV(LOINC) 81.0-100.0 fL MCV 89.9 LAB MCH(LOINC) 27.0-33.0 pg MCH 29.5 LAB MCHC(LOINC) 32.0-36.0 G/dL MCHC 32.8 LAB RDW(LOINC) 11.5-15.5 % High RDW 16.3 LAB PLT(LOINC) 150-450 10 3/mcL Platelet 175 LAB MPV(LOINC) 6.4-10.5 fL MPV 8.1 Performed By: #### CBC, ADIFF, ANEU #### [address] [address] .AUTO DIFF Collected: 11/09/2018 Status: F Source: [facility] 10:36 [facility] REPOSITORY TYPE CODE TESTS RESULT OUT OF REFERENCE UNITS RANGE LAB MOLLY(LOINC) 50.0-75.0 % High Neutrophil % 88.3 LAB LYM(LOINC) 20.0-40.0 % Low Lymphocyte % 6.2 LAB MON(LOINC) 2.0-13.0 % Monocyte % 5.3 LAB EO(LOINC) 0.0-6.0 % Eosinophil % 0.0 LAB BAS(LOINC) 0.0-2.5 % Basophil % 0.2 LAB ABLYM(LOIN 0.90-4.32 10 3/mcL C) Low Lymphocyte, 0.50 Absolute LAB FRANK(LOINC 0.09-1.40 10 3/mcL ) Monocyte, 0.40 Absolute LAB AEOS(LOINC 0.00-0.65 10 3/mcL ) Eosinophil, 0.00 Absolute LAB ABAS(LOINC 0.00-0.27 10 3/mcL ) Basophil, 0.00 Absolute Performed By: #### CBC, ADIFF, ANEU #### [place] [address] .NEUABS Collected: 11/09/2018 Status: F Source: [facility] 10:36 AM [facility] REPOSITORY TYPE CODE TESTS RESULT OUT OF REFERENCE UNITS RANGE LAB ANEU(LOINC) 2.25-8.10 10 3/mcL Neutrophil, 7.20 Absolute Performed By: #### CBC, ADIFF, ANEU #### [place] [address] NAUR Collected: 11/09/2018 Status: F Source: [facility] 10:36 AM [facility] REPOSITORY TYPE CODE TESTS RESULT OUT OF REFERENCE UNITS RANGE LAB ROSA(LOINC) mEq/L U Sodium 39.0 Performed By: #### NAUR, UA, UAMIC #### [place] [address] UA Collected: 11/09/2018 Status: F Source: [facility] 10:36 AM [facility] REPOSITORY TYPE CODE TESTS RESULT OUT OF RANGE REFERENCE UNITS LAB SPCUA(LUDMILA NC) UA Specimen Type Catheter LAB CLRUA(LUDMILA NC) UA Color Yellow LAB APPUA(LUD[place]A Clear NC) UA Appear Clear LAB SGUA(LOIN 1.006-1.029 C) UA Spec Grav 1.015 LAB GLUA(LOIN Negative mg/dL C) UA Glucose Negative LAB BILUA(LUD[place] Neg-Trace NC) UA Bili Negative LAB KETUA(LUDMILA Neg-Trace mg/dL NC) UA Ketones Trace LAB BLDUA(LUD[place]ILA Neg-Trace NC) UA Blood Unknown Moderate LAB PHUA(LOIN 5.0 - 8.0 C) UA pH 5.0 LAB PROUA(LUDMILA Negative mg/dL NC) UA Protein Negative LAB UROUA(LUDMILA 0.2-1.0 E.U./dL NC) UA Urobilinogen 1.0 LAB NITUA(LUDMILA Negative NC) UA Nitrite Negative LAB LEUUA(LUDMILA Negative NC) UA Leuk Est Unknown Small Performed By: #### BRIAN, UA, UAMIC #### [place] [address] UAMIC Collected: 11/09/2018 Status: F Source: [facility] 10:36 AM [facility] TYPE CODE TESTS RESULT OUT OF RANGE REFERENCE UNITS LAB RBCUA(LOIN 0-2 /hpf C) UA RBC Unknown 25-50 LAB WBCUA(LOIN 0-5 /hpf C) UA WBC Unknown 25-50 LAB EPIUA(LOIN 0-20 /hpf C) UA Squam Epithelial Negative LAB MUCUA(LOIN /hpf C) UA Mucous 2+ LAB AMOUA(LOIN /hpf C) UA Amorphus 1+ LAB BACUA(LOIN Negative /hpf C) UA Unknown Bacteria 1+ LAB YSTUA(LOIN /hpf C) UA Yeast Unknown 1+ LAB HYAC(LOINC /lpf ) UA Hyal Unknown Cast 3-5 Performed By: #### BRIAN, UA, UAMIC #### [place] [address] CRUR Collected: 11/09/2018 Status: F Source: [facility] 10:36 AM [facility] TYPE CODE TESTS RESULT OUT OF REFERENCE UNITS RANGE LAB CRU(LOINC) mg/dL U Creatinine 66.6 Performed By: #### CRUR #### [place] [address] US RENAL Observed: 11/09/2018 Status: F Source: [facility] 10:23 AM [facility] REPOSITORY ORIGINAL US RENAL (US RETROPERITONEUM COMPLETE) CLINICAL STATEMENT: denisha. COMPARISON: CT abdomen and pelvis 10/21/2018 The kidneys are normal in size, contour, cortical thickness, and echogenicity. The right and left kidneys measure 11.2 cm and 11.0 cm in size, respectively. There is no renal calcification, solid renal mass, pelvicaliectasis, or perirenal fluid. There is compromised visualization of the kidneys, due to patient body habitus. There is no free fluid seen in the abdomen. Urinary bladder is decompressed by a Corea catheter. IMPRESSION: Grossly normal kidneys without hydronephrosis. Interpreted By: Lynne Gates MD Preliminary Report By: Lynne Gates MD Electronically Signed By: Lynne Gates MD Dictated Date: 11/09/2018 1:37:38 PM Prelim Date: 11/09/2018 1:37:38 PM Sign Date: 11/09/2018 1:38:42 PM BMP Collected: 11/09/2018 Status: F Source: [facility] 3:27 AM [facility] REPOSITORY TYPE CODE TESTS RESULT OUT OF REFERENCE UNITS RANGE LAB GLU(LOINC) 82-115 mg/dL Glucose High Level 119 LAB NA(LOINC) 136-145 mEq/L Sodium Level 138 LAB K(LOINC) 3.5-5.0 mEq/L Potassium Level 4.7 LAB CL(LOINC) 98-110 mEq/L Chloride 103 LAB CO2(LOINC) 22-32 mEq/L CO2 26 LAB EBAL(LOINC 4.0-15.0 mEq/L ) Electrolyte Balance 9.0 LAB BUN(LOINC) 8.0-22.0 mg/dL BUN High 52.0 LAB CRE(LOINC) 0.60-1.40 mg/dL Creatinine High Lvl (s) 1.81 LAB BC(LOINC) 10.0-22.0 ratio High BUN/Creatinine 28.7 Ratio LAB CA(LOINC) 8.4-10.1 mg/dL Low Calcium Lvl 8.2 Performed By: #### BMP, GFR, PBNP #### [place] [address] .GFR Collected: 11/09/2018 Status: F Source: [facility] 3:27 AM [facility] REPOSITORY TYPE CODE TESTS RESULT OUT OF REFERENCE UNITS RANGE LAB GFRAA(LOINC ml/min/1.73 ) sqm GFR 46 [place] Result Comment: GFR Population mean for , Non- Americans Ages 20-29 = 116 mL/min/1.73 sq.m. Ages 30-39 = 107 mL/min/1.73 sq.m. Ages 40-49 = 99 mL/min/1.73 sq.m. Ages 50-59 = 93 mL/min/1.73 sq.m. Ages 60-69 = 85 mL/min/1.73 sq.m. Ages 70+ = 75 mL/min/1.73 sq.m. Chronic Kidney Disease: Less than 60 mL/min/1.73 square meters End Stage Renal Disease: Less than 15 mL/min/1.73 square meters LAB GFRNO(LOINC) ml/min/1.73sqm GFR Non- 38 Result Comment: GFR Population mean for , Non- Americans Ages 20-29 = 116 mL/min/1.73 sq.m. Ages 30-39 = 107 mL/min/1.73 sq.m. Ages 40-49 = 99 mL/min/1.73 sq.m. Ages 50-59 = 93 mL/min/1.73 sq.m. Ages 60-69 = 85 mL/min/1.73 sq.m. Ages 70+ = 75 mL/min/1.73 sq.m. Chronic Kidney Disease: Less than 60 mL/min/1.73 square meters End Stage Renal Disease: Less than 15 mL/min/1.73 square meters Performed By: #### VINNIE, GFR, PBNP #### [address] [address] PBNP Collected: 11/09/2018 Status: F Source: [facility] REPOSITORY TYPE CODE TESTS RESULT OUT OF REFERENCE UNITS RANGE LAB PBNP(LOINC) 0-900 pg/mL High N-Terminal 5034 proBNP Result Comment: NT-proBNP results of less than 300 pg/mL effectively rules out acute congestive heart failure with 99% negative predictive value. Performed By: #### VINNIE, GFR, PBNP #### [address] [address] TROPI Collected: 11/09/2018 Status: F Source: [facility] REPOSITORY TYPE CODE TESTS RESULT OUT OF REFERENCE UNITS RANGE LAB TROPI(LOINC 0.000-0.040 ng/mL ) Troponin I <0.015 Result Comment: Troponin I reference ranges (06/28/14): 0.00-0.040 ng/mL Negative and non-diagnostic. >0.040 ng/mL Consistent with cardiac damage, increased clinical risk and possibility of myocardial infarction. Serial measurements, a rise & fall in test results, clinical history, appropriate symptoms and/or ECG changes may help assess possibility of UT. *Other non-acute coronary syndrome conditions such as CHF, myocarditis, pulmonary emboli, sepsis and cardiac surgery could result in myocardial damage and increased troponin levels. Performed By: #### TROPI #### [address] [address] BG Collected: 11/08/2018 Status: F Source: [facility] 8:53 PM [facility] REPOSITORY TYPE CODE TESTS RESULT OUT OF REFERENCE UNITS RANGE LAB PH(LOINC) 7.380-7.460 Low pH 7.354 LAB PCO2(LOINC 32.0-46.0 mmHg ) pCO2 43.1 LAB PO2(LOINC) 74.0-108.0 mmHg pO2 80.5 LAB HCO3(LOINC 21.0-29.0 mmol/L ) HCO3 23.5 LAB TCO2(LOINC 22.0-30.0 mmol/L ) CO2 Totl 24.8 LAB BE(LOINC) mmol/L Base Excess -2.0 LAB O2SAT(LOIN 92.0-96.0 % C) O2 Sat 95.3 LAB BPRES(LOIN mmHg C) Barometric 722 Pressure Performed By: #### BG #### [place] [id number] CBC Collected: 11/08/2018 Status: F Source: [facility] 8:33 [facility] REPOSITORY TYPE CODE TESTS RESULT OUT OF REFERENCE UNITS RANGE LAB WBC(LOINC) 4.50-10.80 10 3/mcL WBC 8.20 LAB RBCCT(LOINC 4.50-6.00 10 6/mcL ) Low RBC 3.33 LAB HGB(LOINC) 13.0-17.5 G/dL Low Hgb 9.8 LAB HCT(LOINC) 40.0-52.0 % Low Hct 30.1 LAB MCV(LOINC) 81.0-100.0 fL MCV 90.3 LAB MCH(LOINC) 27.0-33.0 pg MCH 29.4 LAB MCHC(LOINC) 32.0-36.0 G/dL MCHC 32.6 LAB RDW(LOINC) 11.5-15.5 % High RDW 16.6 LAB PLT(LOINC) 150-450 10 3/mcL Low Platelet 146 LAB MPV(LOINC) 6.4-10.5 fL MPV 8.0 Performed By: #### CBC, ADIFF, ANEU, BMP, GFR, CK, TROPI #### [place] [id number] .AUTO DIFF Collected: 11/08/2018 Status: F Source: [facility] 8:33 PM [facility] REPOSITORY TYPE CODE TESTS RESULT OUT OF REFERENCE UNITS RANGE LAB MOLLY(LOINC) 50.0-75.0 % High Neutrophil % 87.8 LAB LYM(LOINC) 20.0-40.0 % Low Lymphocyte % 3.9 LAB MON(LOINC) 2.0-13.0 % Monocyte % 3.1 LAB EO(LOINC) 0.0-6.0 % Eosinophil % 4.8 LAB BAS(LOINC) 0.0-2.5 % Basophil % 0.4 LAB ABLYM(LOIN 0.90-4.32 10 3/mcL C) Low Lymphocyte, 0.30 Absolute LAB FRANK(LOINC 0.09-1.40 10 3/mcL ) Monocyte, 0.30 Absolute LAB AEOS(LOINC 0.00-0.65 10 3/mcL ) Eosinophil, 0.40 Absolute LAB ABAS(LOINC 0.00-0.27 10 3/mcL ) Basophil, 0.00 Absolute Performed By: #### CBC, ADIFF, ANEU, BMP, GFR, CK, TROPI #### [place] [id number] .NEUABS Collected: 11/08/2018 Status: F Source: [facility] 8:33 [facility] REPOSITORY TYPE CODE TESTS RESULT OUT OF REFERENCE UNITS RANGE LAB ANEU(LOINC) 2.25-8.10 10 3/mcL Neutrophil, 7.20 Absolute Performed By: #### CBC, ADIFF, ANEU, BMP, GFR, CK, TROPI #### [place] [id number] BMP Collected: 11/08/2018 Status: F Source: [facility] 8:33 [facility] REPOSITORY TYPE CODE TESTS RESULT OUT OF REFERENCE UNITS RANGE LAB GLU(LOINC) 82-115 mg/dL Glucose Level 99 LAB NA(LOINC) 136-145 mEq/L Low Sodium Level 135 LAB K(LOINC) 3.5-5.0 mEq/L Potassium Level 4.7 LAB CL(LOINC) 98-110 mEq/L Chloride 102 LAB CO2(LOINC) 22-32 mEq/L CO2 27 LAB EBAL(LOINC 4.0-15.0 mEq/L ) Electrolyte Balance 6.0 LAB BUN(LOINC) 8.0-22.0 mg/dL BUN High 58.0 LAB CRE(LOINC) 0.60-1.40 mg/dL Creatinine High Lvl (s) 2.06 LAB BC(LOINC) 10.0-22.0 ratio High BUN/Creatinine 28.2 Ratio LAB CA(LOINC) 8.4-10.1 mg/dL Low Calcium Lvl 7.7 Performed By: #### CBC, ADIFF, ANEU, BMP, GFR, CK, TROPI #### [place] [id number] .GFR Collected: 11/08/2018 Status: F Source: [facility] 8:33 [facility] REPOSITORY TYPE CODE TESTS RESULT OUT OF REFERENCE UNITS RANGE LAB GFRAA(LOINC ml/min/1.73 ) sqm GFR 40 [place] Result Comment: GFR Population mean for , Non- Americans Ages 20-29 = 116 mL/min/1.73 sq.m. Ages 30-39 = 107 mL/min/1.73 sq.m. Ages 40-49 = 99 mL/min/1.73 sq.m. Ages 50-59 = 93 mL/min/1.73 sq.m. Ages 60-69 = 85 mL/min/1.73 sq.m. Ages 70+ = 75 mL/min/1.73 sq.m. Chronic Kidney Disease: Less than 60 mL/min/1.73 square meters End Stage Renal Disease: Less than 15 mL/min/1.73 square meters LAB GFRNO(LOINC) ml/min/1.73sqm GFR Non- 33 Result Comment: GFR Population mean for , Non- Americans Ages 20-29 = 116 mL/min/1.73 sq.m. Ages 30-39 = 107 mL/min/1.73 sq.m. Ages 40-49 = 99 mL/min/1.73 sq.m. Ages 50-59 = 93 mL/min/1.73 sq.m. Ages 60-69 = 85 mL/min/1.73 sq.m. Ages 70+ = 75 mL/min/1.73 sq.m. Chronic Kidney Disease: Less than 60 mL/min/1.73 square meters End Stage Renal Disease: Less than 15 mL/min/1.73 square meters Performed By: #### CBC, ADIFF, ANEU, BMP, GFR, CK, TROPI #### [place] [id number] [address] [place] [id number] CK Collected: 11/08/2018 Status: F Source: [facility] 8:33 PM [facility] REPOSITORY TYPE CODE TESTS RESULT OUT OF RANGE REFERENCE UNITS LAB CK(LOINC) 7-185 U/L CPK 123 Performed By: #### CBC, ADIFF, ANEU, BMP, GFR, CK, TROPI #### [address] [address] TROPI Collected: 11/08/2018 Status: F Source: [facility] 8:33 PM [facility] REPOSITORY TYPE CODE TESTS RESULT OUT OF REFERENCE UNITS RANGE LAB TROPI(LOINC 0.000-0.040 ng/mL ) Troponin I 0.031 Result Comment: Troponin I reference ranges (06/28/14): 0.00-0.040 ng/mL Negative and non-diagnostic. >0.040 ng/mL Consistent with cardiac damage, increased clinical risk and possibility of myocardial infarction. Serial measurements, a rise & fall in test results, clinical history, appropriate symptoms and/or ECG changes may help assess possibility of UT. *Other non-acute coronary syndrome conditions such as CHF, myocarditis, pulmonary emboli, sepsis and cardiac surgery could result in myocardial damage and increased troponin levels. Performed By: #### CBC, ADIFF, ANEU, BMP, GFR, CK, TROPI #### [address] [address] XR ABDOMEN AP Observed: 11/08/2018 Status: F Source: [facility] 8:06 PM [facility] REPOSITORY ORIGINAL XR ABDOMEN AP CLINICAL STATEMENT: NG placement. COMPARISON: 11/26/2016 x-ray abdomen IMPRESSION: Interval placement of an enteric tube, with the distal tip and side-port projecting over the body of the stomach. I have personally reviewed the images of this examination and agree with the resident's findings and interpretation. Interpreted By: Harini Gold MD Preliminary Report By: Leidy Melo DO Electronically Signed By: Harini Gold MD Dictated Date: 11/08/2018 9:36:10 PM Prelim Date: 11/08/2018 9:37:26 PM Sign Date: 11/08/2018 9:40:39 PM XR CHEST 1 VIEW Observed: 11/08/2018 Status: F Source: [facility] 8:06 PM [facility] REPOSITORY ORIGINAL XR CHEST 1 VIEW CLINICAL STATEMENT: Intubation/pos-op COMPARISON: 09/08/2018 chest x-ray FINDINGS: The cardiac silhouette is a candidate enlarged. Several sternotomy wires are noted to be fractured. A LEFT chest ICD is again noted. RIGHT chest port is noted. Interval placement of enteric tu be as described on same day abdominal x-ray. There is been interval placement of an endotracheal tube, which appears to terminate 3 cm above the level of the almita. No focal consolidation, appreciable pleural effusion, pneumothorax, or vascular congestion is noted. IMPRESSION: No acute radiographic findings. Interval placement of enteric and endotracheal tube as above. I have personally reviewed the images of this examination and agree with the resident's findings and interpretation. Interpreted By: Harini Gold MD Preliminary Report By: Leidy Melo DO Electronically Signed By: Harini Gold MD Dictated Date: 11/08/2018 9:37:35 PM Prelim Date: 11/08/2018 9:39:29 PM Sign Date: 11/08/2018 9:59:19 PM XR FLUORO 1-2 HRS Observed: 11/08/2018 Status: F Source: [facility] TECH TIME 9:30 AM [facility] REPOSITORY ORIGINAL Fluoroscopy, 11/08/2018 6:26 PM INDICATION: Fracture COMPARISON: X-ray previous day FLUOROSCOPY TIME: 67 seconds FINDINGS: 11 fluoroscopic images are provided showing internal fixation of the hip. IMPRESSION: Fluoroscopy provided to the orthopedic surgery service. Interpreted By: Harini Gold MD Preliminary Report By: Harini Gold MD Electronically Signed By: Harini Gold MD Dictated Date: 11/08/2018 7:20:10 PM Prelim Date: 11/08/2018 7:20:10 PM Sign Date: 11/08/2018 7:21:05 PM CBC Collected: 11/08/2018 Status: F Source: [facility] 6:02 AM [facility] REPOSITORY TYPE CODE TESTS RESULT OUT OF REFERENCE UNITS RANGE LAB WBC(LOINC) 4.50-10.80 10 3/mcL WBC 7.00 LAB RBCCT(LOINC 4.50-6.00 10 6/mcL ) Low RBC 3.12 LAB HGB(LOINC) 13.0-17.5 G/dL Low Hgb 9.2 LAB HCT(LOINC) 40.0-52.0 % Low Hct 28.1 LAB MCV(LOINC) 81.0-100.0 fL MCV 90.2 LAB MCH(LOINC) 27.0-33.0 pg MCH 29.6 LAB MCHC(LOINC) 32.0-36.0 G/dL MCHC 32.8 LAB RDW(LOINC) 11.5-15.5 % High RDW 16.8 LAB PLT(LOINC) 150-450 10 3/mcL Low Platelet 142 LAB MPV(LOINC) 6.4-10.5 fL MPV 7.9 Performed By: #### CBC, ADIFF, ANEU, BMP, GFR #### [address] [address] .AUTO DIFF Collected: 11/08/2018 Status: F Source: [facility] 6:02 [facility] REPOSITORY TYPE CODE TESTS RESULT OUT OF REFERENCE UNITS RANGE LAB MOLLY(LOINC) 50.0-75.0 % Neutrophil % 63.4 LAB LYM(LOINC) 20.0-40.0 % Low Lymphocyte % 13.4 LAB MON(LOINC) 2.0-13.0 % Monocyte % 9.7 LAB EO(LOINC) 0.0-6.0 % High Eosinophil % 12.8 LAB BAS(LOINC) 0.0-2.5 % Basophil % 0.7 LAB ABLYM(LOIN 0.90-4.32 10 3/mcL C) Lymphocyte, 0.90 Absolute LAB FRANK(LOINC 0.09-1.40 10 3/mcL ) Monocyte, 0.70 Absolute LAB AEOS(LOINC 0.00-0.65 10 3/mcL ) High Eosinophil, 0.90 Absolute LAB ABAS(LOINC 0.00-0.27 10 3/mcL ) Basophil, 0.00 Absolute Performed By: #### CBC, ADIFF, ANEU, BMP, GFR #### [address] [address] .NEUABS Collected: 11/08/2018 Status: F Source: [facility] 6:02 AM [facility] REPOSITORY TYPE CODE TESTS RESULT OUT OF REFERENCE UNITS RANGE LAB ANEU(LOINC) 2.25-8.10 10 3/mcL Neutrophil, 4.50 Absolute Performed By: #### CBC, ADIFF, ANEU, BMP, GFR #### [address] [address] BMP Collected: 11/08/2018 Status: F Source: [facility] 6:02 AM [facility] REPOSITORY TYPE CODE TESTS RESULT OUT OF REFERENCE UNITS RANGE LAB GLU(LOINC) 82-115 mg/dL Glucose Level 115 LAB NA(LOINC) 136-145 mEq/L Sodium Level 137 LAB K(LOINC) 3.5-5.0 mEq/L Potassium Level 4.5 LAB CL(LOINC) 98-110 mEq/L Chloride 103 LAB CO2(LOINC) 22-32 mEq/L CO2 25 LAB EBAL(LOINC 4.0-15.0 mEq/L ) Electrolyte Balance 9.0 LAB BUN(LOINC) 8.0-22.0 mg/dL BUN High 57.0 LAB CRE(LOINC) 0.60-1.40 mg/dL Creatinine High Lvl (s) 2.18 LAB BC(LOINC) 10.0-22.0 ratio High BUN/Creatinine 26.1 Ratio LAB CA(LOINC) 8.4-10.1 mg/dL Low Calcium Lvl 7.6 Performed By: #### CBC, ADIFF, ANEU, BMP, GFR #### [address] [address] .GFR Collected: 11/08/2018 Status: F Source: [facility] 6:02 AM [facility] REPOSITORY TYPE CODE TESTS RESULT OUT OF REFERENCE UNITS RANGE LAB GFRAA(LOINC ml/min/1.73 ) sqm GFR 37 [place] Result Comment: GFR Population mean for , Non- Americans Ages 20-29 = 116 mL/min/1.73 sq.m. Ages 30-39 = 107 mL/min/1.73 sq.m. Ages 40-49 = 99 mL/min/1.73 sq.m. Ages 50-59 = 93 mL/min/1.73 sq.m. Ages 60-69 = 85 mL/min/1.73 sq.m. Ages 70+ = 75 mL/min/1.73 sq.m. Chronic Kidney Disease: Less than 60 mL/min/1.73 square meters End Stage Renal Disease: Less than 15 mL/min/1.73 square meters LAB GFRNO(LOINC) ml/min/1.73sqm GFR Non- 31 Result Comment: GFR Population mean for , Non- Americans Ages 20-29 = 116 mL/min/1.73 sq.m. Ages 30-39 = 107 mL/min/1.73 sq.m. Ages 40-49 = 99 mL/min/1.73 sq.m. Ages 50-59 = 93 mL/min/1.73 sq.m. Ages 60-69 = 85 mL/min/1.73 sq.m. Ages 70+ = 75 mL/min/1.73 sq.m. Chronic Kidney Disease: Less than 60 mL/min/1.73 square meters End Stage Renal Disease: Less than 15 mL/min/1.73 square meters Performed By: #### CBC, ADIFF, ANEU, BMP, GFR #### [place] [address] XR HIP MINIMUM 2 Observed: 11/07/2018 Status: F Source: [facility] VIEWS RIGHT 8:08 PM [facility] REPOSIT[facility] ORIGINAL XR HIP MINIMUM 2 VIEWS RIGHT CLINICAL STATEMENT: Right hip fracture. COMPARISON: CT 10/21/2018 FINDINGS: There is an intertrochanteric fracture without significant displacement. Severe arthritic changes of the hip are again seen with complete obscuration of the joint space, a mushroom head deform ity of the femoral head, subchondral sclerosis, and subchondral cystic changes. IMPRESSION: Acute intertrochanteric fracture without significant displacement. No dislocation. Severe arthritis of the hip. Interpreted By: Shankar Tavarez DO Preliminary Report By: Shankar Tavarez DO Electronically Signed By: Shankar Tavarez DO Dictated Date: 11/07/2018 11:27:11 PM Prelim Date: 11/07/2018 11:27:11 PM Sign Date: 11/07/2018 11:30:11 PM BMP Collected: 11/07/2018 Status: F Source: [facility] 7:58 PM [facility]POS[facility] TYPE CODE TESTS RESULT OUT OF REFERENCE UNITS RANGE LAB GLU(LOINC) 82-115 mg/dL Glucose Level 106 LAB NA(LOINC) 136-145 mEq/L Sodium Level 137 LAB K(LOINC) 3.5-5.0 mEq/L Potassium Level 4.6 LAB CL(LOINC) 98-110 mEq/L Chloride 102 LAB CO2(LOINC) 22-32 mEq/L CO2 27 LAB EBAL(LOINC 4.0-15.0 mEq/L ) Electrolyte Balance 8.0 LAB BUN(LOINC) 8.0-22.0 mg/dL BUN High 50.0 LAB CRE(LOINC) 0.60-1.40 mg/dL Creatinine High Lvl (s) 2.27 LAB BC(LOINC) 10.0-22.0 ratio BUN/Creatinine 22.0 Ratio LAB CA(LOINC) 8.4-10.1 mg/dL Low Calcium Lvl 8.1 Performed By: #### BMP, GFR, PBNP #### [place] [address] .GFR Collected: 11/07/2018 Status: F Source: [facility] 7:58 PM [facility] REPOSIT[facility] TYPE CODE TESTS RESULT OUT OF REFERENCE UNITS RANGE LAB GFRAA(LOINC ml/min/1.73 ) sqm GFR 36 [place] Result Comment: GFR Population mean for , Non- Americans Ages 20-29 = 116 mL/min/1.73 sq.m. Ages 30-39 = 107 mL/min/1.73 sq.m. Ages 40-49 = 99 mL/min/1.73 sq.m. Ages 50-59 = 93 mL/min/1.73 sq.m. Ages 60-69 = 85 mL/min/1.73 sq.m. Ages 70+ = 75 mL/min/1.73 sq.m. Chronic Kidney Disease: Less than 60 mL/min/1.73 square meters End Stage Renal Disease: Less than 15 mL/min/1.73 square meters LAB GFRNO(LOINC) ml/min/1.73sqm GFR Non- 29 Result Comment: GFR Population mean for , Non- Americans Ages 20-29 = 116 mL/min/1.73 sq.m. Ages 30-39 = 107 mL/min/1.73 sq.m. Ages 40-49 = 99 mL/min/1.73 sq.m. Ages 50-59 = 93 mL/min/1.73 sq.m. Ages 60-69 = 85 mL/min/1.73 sq.m. Ages 70+ = 75 mL/min/1.73 sq.m. Chronic Kidney Disease: Less than 60 mL/min/1.73 square meters End Stage Renal Disease: Less than 15 mL/min/1.73 square meters Performed By: #### BMP, GFR, PBNP #### [facility] [address] [place] [address] PBNP Collected: 11/07/2018 Status: F Source: [facility] 7:58 PM [facility] REPOSITORY TYPE CODE TESTS RESULT OUT OF REFERENCE UNITS RANGE LAB PBNP(LOINC) 0-900 pg/mL High [facility] [address] proBNP Result Comment: NT-proBNP results of less than 300 pg/mL effectively rules out acute congestive heart failure with 99% negative predictive value. Performed By: #### BMP, GFR, PBNP #### [facility] [address] [id number] DISCHARGE SUMMARY Observed: 11/07/2018 Status: F Source: [place] 4:13 PM [facility] REPOSITORY [facility] Medical Records Department [address] [place] [address] Discharge Summary 11/07/18 1557 MR#: [id number] Acct: [id number] Name: JADA COLUNGA Rep #: [id number] : [id number] 63 From: Akhil Woods MD PCP: OUT OF TOWN DOCTOR Status: ADM IN Location: [id number] Discharge Date and Diagnosis - Problem List Patient Problems: Active and Suspected Problems LISSA (obstructive sleep apnea) (Acute) Date of Admission: 11/05/18 Date of Discharge: 11/07/18 - Primary Discharge Diagnosis Active and Suspected Problems LISSA (obstructive sleep apnea) (Acute) - Secondary Discharge Diagnosis Chronic Problems Decubitus ulcer of heel, right, unstageable (Chronic) Cellulitis of right heel (Chronic) S/P PTCA (percutaneous transluminal coronary angioplasty) (Chronic) Cardiomyopathy (Chronic) 38% gated nuclear EF on 11/03/18 ICD (implantable cardioverter-defibrillator) in place (Chronic) mediport placement (Chronic) Hyperlipidemia (Chronic) DM type 2 (diabetes mellitus, type 2) (Chronic) Chronic CHF (congestive heart failure) (Chronic) ef=25% as of 04/04 Carotid artery stenosis (Chronic) R CEA CAD (coronary artery disease) (Chronic) extensive disease multiple stents Hx of CABG (Chronic) Obesity (Chronic) Benign hypertension (Chronic) Hospital Course and Treatment Consultations 11/05/18 18:53 Consult: Onc/Wound/program engineer Routine Comment: Operations: None Summary of Care Provided: [] This is a 63-year-old gentleman with with history of multiple comorbidities complicates the present care and expect difficult and delay recovery Including coronary artery disease status post CABG, multiple stents, ischemic cardiomyopathy with EF of about 38% on stress test done on 11/03/2018, chronic systolic congestive heart failure, AICD placement, hyperlipidemia, hypertension, diabetes mellitus type 2, carotid artery stenosis with history of right carotid endarterectomy, chronic renal failure, obstructive sleep apnea was admitted for right hip pain after fall which on further evaluation found to be right hip intertrochanteric fracture with evidence of severe DJD. Patient was seen by Dr. Mensah and recommended further evaluation by Dr. Moriera who is joint a specialist for [facility]. 1. Acute right intertrochanteric hip fracture secondary to fall on chronic degenerative joint disease. Patient is being admitted on regular [facility] floor. Patient was seen by Dr. Mensah. Pain management. Needs further evaluation by Dr. Moreira. Discussed with Dr. Mensah today he advised transfer to tertiary care center as Dr. Moreira is not available. Patient has advanced left hip joint and needs total hip replacement. Transfer line to [facility] called and discussed with Dr. Jim Barreto, hospitalist who accepted the patient. Discussed about the need for packer fuser to follow-up on recent acute kidney injury. Acute kidney injury on CKD stage III, with oliguria most probably secondary to vancomycin toxicity: ID consult was called. Discussed with ID and prefers amoxicillin and doxycycline as the patient is on Zoloft and duloxetine which is significant interaction with Zyvox. No more vancomycin in the future. Patient has vancomycin induced ATN. Patient had 1500 mL normal saline given. Blood pressure is stable. The patient had 325 mill in output. Seen by packer fuser. Discussed with him. 2. Decubitus ulcer right heel, stage II nonhealing, 3 x 3 cm and left heel ulceration/crack: Being followed by bindery technician. Patient had debridement done. Dr. Blankenship consult appreciated. Preliminary Gram stain shows Staphylococcus species and beta hemolytic strep toe coccus. Staph species most likely MRSA based on the previous cultures. Amoxicillin and doxycycline. 3. Ischemic cardiomyopathy with chronic systolic heart failure with EF 38% on recent stress test: stable. Compensated. 4. Coronary artery disease with history of CABG and PTCA/stents 5. Diabetes mellitus type 2 complicated with diabetic neuropathy and peripheral arterial disease: UA is positive of proteinuria and glucosuria. Blood sugar is controlled. 6. Hypertension blood pressure is controlled. 7. Hyperlipidemia 8. Morbid obesity 9. Normochromic normocytic anemia with recent acute blood loss secondary to peptic ulcer disease with hemorrhage 10. Recent acute kidney injury with creatinine of 5.43 on 10/19/2018-never required dialysis and current creatinine is 1.36 11. Mild hypokalemia: K is corrected. K 4.3 12. Carotid artery stenosis with history of right CEA 13. Peptic ulcer disease 14. History of AICD placement 15. Obstructive sleep apnea-compliant with CPAP 16. Hypophosphatemia Transfer line to [facility] called and discussed with Dr. Jim Barreto, hospitalist who accepted the patient. Discussed about the need for packer fuser to follow-up on recent acute kidney injury. Total time spent more than 40 minutes in the discharge process. Transfer process discussed with the patient and all questions were answered to patient's satisfaction.. Patient Problems: Active and Suspected Problems LISSA (obstructive sleep apnea) (Acute) Subjective: Seen and examined in the morning and afternoon. Yesterday vancomycin was started after discussion with the pharmacist at the lower dose on 1 g. Patient had oliguria with increase in creatinine from 1.7 6 to2.35 dose of vancomycin 1 g. Vancomycin is stopped. - Physical Exam General: Alert, Oriented x3, Cooperative HEENT: Atraumatic, PERRLA, EOMI, Normocephalic Neck: Supple, No JVD, Negative Carotid Bruits Lungs: Diminished, Rales, Rhonchi, - - No shortness of breath. Cardiovascular: Regular rate, Regular Rhythm, Normal S1, Normal S2, No murmurs Abdomen: Bowel Sounds Present, Soft, Non Tender, Non-Distended, - - Corea catheter draining clear urine. Extremities: Capillary Refill Less than 3 Seconds, Edema Skin: Ulcer/ Wound - Bilateral heel ulcers. Musculoskeletal: Arthritic Changes, Muscle Wasting, Tenderness - Tenderness over right hip. Right hip fracture with external rotation. Neurological: Cranial nerves II-XII grossly intact Psych/Mental Status: Normal Affect, Appropriate Vital Signs Temp Pulse Resp BP Pulse Ox 99.0 F 64 18 116/57 L 93 11/07/18 14:25 11/07/18 14:25 11/07/18 14:25 11/07/18 14:25 11/07/18 14:25 Oxygen Flow Rate (L/min) 1 Oxygen Delivery Method Room Air Weight: 263 lb 10.766 oz Body Mass Index (BMI) 38.9 Finger Stick Blood Glucose 42 Intake and Output for Last 24 Hours Intake Total 400 / 400 1803.4 / 1803.4 2564 / 2564 Output Total 450 / 450 525 / 525 250 / 250 Balance -50 / -50 1278.4 / 1278.4 2314 / 2314 Microbiology Past 72 Hours 11/05/18 16:35 Urine Culture - Preliminary Urine Catheter - Catheter Culture exhibits no growth. Laboratory Tests Past 24 Hrs POC Glucose POC Glucose 109 116 H 104 POC Glucose 151 H Home Medications: Medications to take at Discharge Isosorbide Mononitrate [Imdur] 30 mg PO BID 03/05/16 Amlodipine [Norvasc] 10 mg PO DAILY 10/13/18 Atorvastatin Calcium [Lipitor] 80 mg PO QHS 10/13/18 Duloxetine HCl 30 mg PO DAILY 10/13/18 Ferrous Sulfate [Ferosul] 325 mg PO QODAY 10/13/18 Gabapentin 600 mg PO TID 10/13/18 Hydroxyzine HCl 25 mg PO TID PRN 10/13/18 Melatonin 20 mg PO QHS PRN 10/13/18 Sertraline HCl 100 mg PO DAILY 10/13/18 hydrALAZINE [Apresoline] 25 mg PO TID 10/13/18 Aspirin [Aspirin, Baby] 81 mg PO DAILY@0800 tab.chew 11/03/18 Furosemide [Lasix] 40 mg PO DAILY #30 tab 11/03/18 Tamsulosin HCl [Flomax] 0.4 mg PO DAILY@0830 #30 cap 11/03/18 Carvedilol 25 mg PO BID 11/05/18 Insulin Glargine,Hum.rec.anlog [Basaglar Kwikpen U-100] 30 unit SC BID 11/05/18 Tizanidine HCl 8 mg PO TID PRN PRN 11/05/18 Primary Care Physician: [facility] Doctor,Out of [Primary Care Provider] - Medical Necessity - Tobacco Use Smoking Status: Never smoker Tobacco Use: Non-smoker Meaningful Use Info Meaningful Use Diagnoses (Choose all that apply): None applicable Code Visit Inpatient E AND M: 33730 Disch Hosp 11/07/18 1613 <Electronically signed by Akhil Woods MD> Date Akhil Woods MD Cosigner Signature (if applicable): Date CC: OUT OF TOWN DOCTOR; Akhil Woods MD Signed CONSULTATION Observed: 11/07/2018 Status: F Source: [place] 1:54 PM [facility] REPOSITORY [facility] Medical Records Department [address] [place] [address] Consultation 11/07/18 1350 MR#: [id number] Acct: [id number] Name: JADA COLUNGA Rep #: [id number] : [id number] 63 From: Raúl Mendes MD PCP: OUT OF TOWN DOCTOR Status: ADM IN Y [place] [facility] [id number] Problem List (1) Cellulitis of right heel Status: Chronic Reason for Consult: heel infection Consulted by: Dr. Woods History of Present Illness: The patient is a 63 year old M with recent admit for L heel MRSA and enterococcus infection complicated by DENISHA while on vanc who presented after fall with R hip fracture. Heel has been doing well off of abx. No fever, no n/v/d. Has not noticed heel drainage, redness, or pain. Admitted here, seen by ortho and podiatry. No heel involvement of bone. Wound cx pending. On vanc with rising Cr, so changed to linezolid but not given yet. Feeling ok. Full ROS performed and neg except as noted above. - Medical History Past Medical History (Chronic Problems): Chronic Problems Decubitus ulcer of heel, right, unstageable (Chronic) Cellulitis of right heel (Chronic) S/P PTCA (percutaneous transluminal coronary angioplasty) (Chronic) Cardiomyopathy (Chronic) 38% gated nuclear EF on 11/03/18 ICD (implantable cardioverter-defibrillator) in place (Chronic) mediport placement (Chronic) Hyperlipidemia (Chronic) DM type 2 (diabetes mellitus, type 2) (Chronic) Chronic CHF (congestive heart failure) (Chronic) ef=25% as of 04/04 Carotid artery stenosis (Chronic) R CEA CAD (coronary artery disease) (Chronic) extensive disease multiple stents Hx of CABG (Chronic) Obesity (Chronic) Benign hypertension (Chronic) Allergies/Adverse Reactions: Allergies metoclopramide HCl [From Reglan] Adverse Reaction (Verified 11/05/18 11:26) goofy, anxious, elevated BP ondansetron HCl [From Zofran] Adverse Reaction (Verified 11/05/18 11:26) goofy, anxious, elevated BP Ubpkznz-Bck-Pxt Reductase Inhibitor Adverse Reaction (Verified 11/05/18 11:26) rhabdomyolosis Home Medications: Ambulatory Orders Medication Instructions Recorded Isosorbide Mononitrate [Imdur] 30 mg PO BID 03/05/16 - Social History Tobacco Use: non-smoker Vital Signs Temp Pulse Resp BP Pulse Ox 100.0 F H 68 18 121/63 H 93 11/07/18 08:16 11/07/18 08:16 11/07/18 08:16 11/07/18 08:16 11/07/18 08:16 Oxygen Flow Rate (L/min) 1 Oxygen Delivery Method Room Air Weight: 119.6 kg Body Mass Index (BMI) 38.9 Finger Stick Blood Glucose 42 Microbiology Past 72 Hours 11/05/18 16:35 Urine Culture - Preliminary Urine Catheter - Catheter Culture exhibits no growth. Laboratory Tests Past 24 Hrs - Other Studies Radiology: [] reviewed Other Studies: [] Route of nutrition/ use of supplements: [] Nutritional Intake: [] IV Site: [] Corea Catheter: [] - Physical Exam General: Alert, Oriented x3, Cooperative, No apparent distress HEENT: Atraumatic, PERRLA, EOMI Neck: Supple, No Nodes Lungs: Clear to auscultation, Normal air movement Cardiovascular: Regular rate, Regular Rhythm Abdomen: Soft, Non Tender, Non-Distended Extremities: Edema - mild Skin: Ulcer/ Wound - L heel, reviewed photo IV Site: Peripheral, without redness Musculoskeletal: - - R hip soreness Neurological: Cranial nerves II-XII grossly intact - Assessment/Plan Antibiotics: [] Assessment/Plan: [] Active and Suspected Problems LISSA (obstructive sleep apnea) (Acute) L heel infection - recent cxs with MRSA and enterococcus. Improving since last admit. I AND D at bedside by podiatry. Cx now with staph and beta hemolytic orgs. PCR (+) MRSA. Rising Cr with vanc. Has been on duloxetine and sertraline, so would like to avoid linezolid with risk of serotonin syndrome. Will change abx to po doxy/amox. Infection of heel appears well controlled. Will follow, thank you. 11/07/18 1354 <Electronically signed by Raúl Mendes MD> Date Raúl Mendes MD Cosigner Signature (if applicable): Date CC: Syed Neville MD; Jeremie GAYM; Justin Mensah DO; OUT OF TOWN DOCTOR; Raúl Mendes MD Signed URINALYSIS, COMPLETE Collected: 11/07/2018 Status: F Source: [place] 1:45 PM [facility] REPOSITORY Order Comment: How was Urine Obtained? YARN SALVAGER TO SPECIFY TYPE CODE TESTS RESULT OUT OF RANGE REFERENCE UNITS LAB L400.3000 Yellow COLOR Normal Yellow LAB L400.3050 Clear Normal CLARITY Sl. Cloudy LAB L400.3200 Normal mg/dl Normal GLUCOSE, UR Normal LAB L400.3300 Negative mg/dL High BILIRUBIN URINE 3 Result Comment: COLOR OF URINE MAY AFFECT DIPSTICK RESULTS. LAB L400.3400 Negative mg/dl High KETONE UR 5 LAB L400.3465 1.002-1.030 Normal SP.GR. DIPSTX 1.020 LAB L400.3550 5.0 - 8.0 pH Normal UR 5.0 LAB L400.3600 Negative mg/dl High PROT DIPSTX 100 LAB L400.3700 Normal mg/dl High UROBILI 4 LAB L400.3750 Negative Normal NITRITE UR Negative LAB L400.3780 Negative /ul High OCCULT 250 BLOOD-UR LAB L400.3800 Negative /ul High LEUK ESTERASE 500 LAB L400.4050 0-5 /hpf Normal WBC 25-50 SEEN LAB L400.4100 0-5 /hpf Normal RBC-UA 25-50 SEEN LAB L400.4150 0-5 /hpf Normal SQUAM EPI 0-5 SEEN LAB L400.4300 None Seen /hpf Normal BACTERIA 1+ LAB L400.4350 <or=2+ /hpf Normal MUCUS, URINE 0 SEEN Performed By: #### L400.0001 #### [facility] [address] [place], [address] URINE SODIUM Collected: 11/07/2018 Status: F Source: [place] 1:45 PM [facility] REPOSITORY TYPE CODE TESTS RESULT OUT OF RANGE REFERENCE UNITS LAB L501.5500 Not Establ. mmol/L Normal UR NA 7 Performed By: #### L501.5500 #### [facility] [address] [place], [address] CREATININE, URINE Collected: 11/07/2018 Status: F Source: [place] 1:45 PM [facility] REPOSITORY TYPE CODE TESTS RESULT OUT OF RANGE REFERENCE UNITS LAB L502.0300 NO RANGE EST. mg/dL Normal URINE 302.00 CREAT Performed By: #### L502.0300 #### [facility] [address] [place], [address] CONSULTATION Observed: 11/07/2018 Status: F Source: [place] 11:49 AM [facility] REPOSITORY [facility] Medical Records Department [address] [place] [address] Consultation 11/07/18 1143 MR#: [id number] Acct: [id number] Name: JADA COLUNGA Rep #: [id number] : 1955 63 From: Syed Neville MD PCP: OUT OF TOWN DOCTOR Status: ADM IN Y Location: MS3 [id number] Problem List (1) Acute kidney injury Status: Resolved Consultation - Renal PCP/ Referring MD: Requesting physician: [] Primary care physician: Out of [facility] Doctor - History of Present Illness History of Present Illness: The patient is a 63 year old M past medical history of coronary artery disease status post PCI , ischemic cardiomyopathy with last ejection fraction of 38% , status post AICD placement , hypertension , diabetes . Patient had recent acute kidney injury from possible vancomycin induced ATN . Patient presented to the hospital after a fall . X-ray shows right hip fracture . Renal team was consulted today for worsening kidney function . In the previous AK I , creatinine peaked at 5.4 . Patient did not the dialysis . Patient presented this time with a creatinine 1.3 and it has been gradually increased to 1.7 and then 2.2 today . Patient was started on vancomycin again this admission for heel ulcers culture positive for MRSA . Patient is complaining of hip pain . Edema is well controlled . Patient is on Lasix 40 mg p.o. daily . Patient is not on MARGARET inhibitor or ARB . Review of system : 12 system review is negative except as mentioned HPI [] - Allergies Allergies: Allergies metoclopramide HCl [From Reglan] Adverse Reaction (Verified 11/05/18 11:26) goofy, anxious, elevated BP ondansetron HCl [From Zofran] Adverse Reaction (Verified 11/05/18 11:26) goofy, anxious, elevated BP Kguustl-Hrv-Lkh Reductase Inhibitor Adverse Reaction (Verified 11/05/18 11:26) rhabdomyolosis - Current Medications Current Medications: Current Medications Amlodipine Besylate (Norvasc) 10 mg PO DAILY [facility] Last Admin: 11/07/18 08:01 Dose: 10 mg Aspirin (Aspirin, Baby) 81 mg PO DAILY@0800 [facility] Last Admin: 11/07/18 08:01 Dose: 81 mg Atorvastatin Calcium (Lipitor) 80 mg PO QHS [facility] Last Admin: 11/06/18 22:10 Dose: 80 mg Bisacodyl (Dulcolax) 10 mg RECTAL .X1 PRN PRN PRN Reason: See label comments Bisacodyl (Dulcolax) 10 mg PO .X1 PRN PRN PRN Reason: See label comments Calamine/Phenol (Calmoseptine Ointment) 1 applic TOPICAL TID [facility]; Protocol Last Admin: 11/07/18 05:30 Dose: 1 applicatio Carvedilol (Coreg) 25 mg PO BID [facility] Last Admin: 11/07/18 08:01 Dose: 25 mg Diphenhydramine HCl (Benadryl) 12.5 - 25 mg PO Q6H PRN PRN PRN Reason: Pruritis Duloxetine HCl (Cymbalta) 30 mg PO DAILY [facility] Last Admin: 11/07/18 08:01 Dose: 30 mg Enoxaparin Sodium (Lovenox) 40 mg SC DAILY [facility] Last Admin: 11/07/18 08:00 Dose: 40 mg Ferrous Sulfate (Ferrous Sulfate) 325 mg PO DAILYCM [facility] Last Admin: 11/07/18 08:01 Dose: 325 mg Furosemide (Lasix) 40 mg PO DAILY [facility] Last Admin: 11/07/18 08:01 Dose: 40 mg Gabapentin (Neurontin) 600 mg PO TIDCM [facility] Last Admin: 11/07/18 11:07 Dose: 600 mg Hydralazine HCl (Apresoline) 25 mg PO TID [facility] Last Admin: 11/07/18 05:30 Dose: 25 mg Naloxone HCl 4 mg/ Dextrose 504 mls @ 0 mls/hr IV .Q0M PRN; Protocol PRN Reason: To maintain Resp. rate >10 Vancomycin IV Pharmacy to Dose (1 ea/ Sodium Chloride) 500 mls @ 250 mls/hr IV DAILY [facility]; Protocol Vancomycin HCl (Vancomycin) 1,000 mg in 200 mls @ 200 mls/hr IV Q24H [facility] Last Admin: 11/06/18 16:25 Dose: 200 mls/hr Insulin Glargine (Lantus (Bkc)) 25 units SC DAILY [facility] Last Admin: 11/07/18 08:01 Dose: 25 units Insulin Glargine (Lantus (Bkc)) 15 units SC QHS [facility] Last Admin: 11/06/18 22:11 Dose: Not Given Insulin Human Lispro (Humalog Kwikpen (Bkc)) 0 unit SC ACHS [facility]; Protocol Last Admin: 11/07/18 11:08 Dose: Not Given Isosorbide Mononitrate (Imdur) 30 mg PO BID [facility] Last Admin: 11/07/18 08:01 Dose: 30 mg Magnesium Hydroxide (Milk Of Magnesia) 30 ml PO DAILY PRN PRN PRN Reason: Constipation Melatonin (Melatonin) 20 mg PO QHS PRN PRN Reason: SLEEP Last Admin: 11/06/18 23:07 Dose: 20 mg Morphine Sulfate () 100 mg IV UD [facility]; Protocol Last Admin: 11/05/18 17:19 Dose: 100 mg Morphine Sulfate () 2 mg IV Q3H PRN PRN PRN Reason: SEVERE PAIN (6-10/10) Last Admin: 11/07/18 06:40 Dose: 2 mg Naloxone HCl (Narcan) 0.02 mg IV Q1M PRN PRN Reason: RR <10 and pt unresponsive Nutritional Formula (Lactose Free) (Glucerna Shake) 120 ml PO 4X/DAY [facility] Last Admin: 11/07/18 08:01 Dose: 120 ml Pantoprazole Sodium (Protonix) 40 mg PO DAILY [facility] Last Admin: 11/07/18 08:00 Dose: 40 mg [facility]assium [facility] Admin: 11/07/18 08:01 Dose: 20 meq Promethazine HCl (Phenergan) 6.25 mg IV Q4H PRN PRN PRN Reason: NAUSEA/VOMITING Last Admin: 11/07/18 07:20 Dose: 6.25 mg Senna/Docusate Sodium (Senokot-S, Kaur-Colace) 2 tablet PO QHS [facility] Last Admin: 11/06/18 22:10 Dose: 2 tablet Sertraline HCl (Zoloft) 100 mg PO DAILY [facility] Last Admin: 11/07/18 08:00 Dose: 100 mg Sodium Chloride () 5 - 15 ml IV UD PRN PRN Reason: SALINE FLUSH Last Admin: 11/07/18 07:23 Dose: 10 ml Sodium Chloride ([place] Nasal [place]) 1 spray NASAL TID PRN PRN PRN Reason: NASAL DRYNESS Tamsulosin HCl (Flomax) 0.4 mg PO DAILY@0830 [facility] Last Admin: 11/07/18 08:01 Dose: 0.4 mg Tizanidine HCl (Zanaflex) 4 mg PO TID PRN PRN Reason: SPASMS - Past Medical History Past Medical History (Chronic Problems): Chronic Problems Decubitus ulcer of heel, right, unstageable (Chronic) Cellulitis of right heel (Chronic) S/P PTCA (percutaneous transluminal coronary angioplasty) (Chronic) Cardiomyopathy (Chronic) 38% gated nuclear EF on 11/03/18 ICD (implantable cardioverter-defibrillator) in place (Chronic) mediport placement (Chronic) Hyperlipidemia (Chronic) DM type 2 (diabetes mellitus, type 2) (Chronic) Chronic CHF (congestive heart failure) (Chronic) ef=25% as of 04/04 Carotid artery stenosis (Chronic) R CEA CAD (coronary artery disease) (Chronic) extensive disease multiple stents Hx of CABG (Chronic) Obesity (Chronic) Benign hypertension (Chronic) - Past Surgical History Surgical History: appendectomy, cataract, cholecystectomy, coronary bypass surgery - 2004 - [place], herniorrhaphy, tonsillectomy, - - Cardiac stent placement 24 (according to patient), right carotid endarterectomy. - Social History Smoking Status: Never smoker Alcohol: Rare Drugs: None - Family History Maternal History Items: No pertinent history Paternal History Items: Heart Disease - of an UT at age 61 Sibling History Items: No pertinent history Patient Problems: Active and Suspected Problems LISSA (obstructive sleep apnea) (Acute) - Physical Exam General: Alert, Oriented x3 HEENT: Atraumatic Oral: Moist Mucosa Neck: Supple, No JVD Lungs: Clear to auscultation, Normal air movement, No rhonchi, No wheeze Cardiovascular: Regular rate, Regular Rhythm, Normal S1, Normal S2 Abdomen: Bowel Sounds Present, Soft, Non Tender Extremities: No clubbing, No cyanosis, Edema - +1 edema of lower extremity Lymphatic: No Cervical, Supraclavicular, or Inguinal Adenopathy Neurological: Cranial nerves II-XII grossly intact, Neuro grossly intact Psych/Mental Status: Normal Affect Vital Signs Temp Pulse Resp BP Pulse Ox 100.0 F H 68 18 121/63 H 93 11/07/18 08:16 11/07/18 08:16 11/07/18 08:16 11/07/18 08:16 11/07/18 08:16 Oxygen Flow Rate (L/min) 1 Oxygen Delivery Method Room Air Weight: 119.6 kg Body Mass Index (BMI) 38.9 Finger Stick Blood Glucose 42 Intake and Output for Last 24 Hours Intake Total 400 / 400 1803.4 / 1803.4 1822 / 1822 Output Total 450 / 450 525 / 525 150 / 150 Balance -50 / -50 1278.4 / 1278.4 1672 / 1672 Microbiology Past 72 Hours 11/05/18 16:35 Urine Culture - Preliminary Urine Catheter - Catheter Culture exhibits no growth. Laboratory Tests Past 24 Hrs POC Glucose POC Glucose 109 116 H 104 POC Glucose 151 H 169 H Assessment/Plan All Active Problems Acute kidney injury (Resolved) LISSA (obstructive sleep apnea) (Acute) Anemia (Acute) Abnormal cardiac enzyme level (Resolved) Chest pain (Resolved) Shortness of breath (Resolved) hx epidural abscess (Resolved) 1-acute kidney injury on chronic kidney disease. Patient has recent history of acute kidney injury from possible vancomycin induced ATN. Creatinine peaked at 5.4. Patient did not need dialysis. Creatinine improved to 1.3 when he presented to the hospital this admission. Creatinine has been increasing slowly since admission. Creatinine today 2.3. Patient said he is making less urine. He has a Corea catheter. UA at admission showed 100 protein, 10 occult blood. No white cell. No red cell. DENISHA this admission is most probablyfrom vancomycin toxicity. I prefer to switch vancomycin to Zyvox. Please check vancomycin trough level. We will do UA along with urine sodium and urine creatinine to calculate FENa No indication for hemodialysis. Please avoid MARGARET inhibitor or ARB. Please check renal function in a.m. 2 hypertension-: Blood pressure is well controlled. I will make no changes in blood pressure medication. Please avoid MARGARET inhibitor or ARB due to acute kidney injury. 3-CHF. Will compensating. Continue the same dose of Lasix. 4-right hip fracture. Management as per the orthopedic team. Thank you for the consult. Renal team will continue to follow. I will discuss with the primary service physician 11/07/18 2228 <Electronically signed by Syed Neville MD> Date Syed Neville MD Cosigner Signature (if applicable): Date CC: Syed Neville MD; Jeremie GAYM; Justin Mensah DO; OUT OF TOWN DOCTOR; Raúl Mendes MD Signed BEDSIDE GLUCOSE Collected: 11/07/2018 Status: F Source: [place] 11:06 AM [facility] REPOSITORY TYPE CODE TESTS RESULT OUT OF RANGE REFERENCE UNITS LAB L501.080 70-110 mg/dL Normal BEDSIDE GLU 109 Result Comment: MANAGEMENT OF PATIENT CARE PER NURSING PROTOCOL Performed By: #### L501.080 #### [facility] Point of Care [address] [place] [address] BEDSIDE GLUCOSE Collected: 11/07/2018 Status: F Source: [place] 6:39 AM [facility] REPOSITORY TYPE CODE TESTS RESULT OUT OF REFERENCE UNITS RANGE LAB L501.080 70-110 mg/dL High BEDSIDE GLU 116 Result Comment: MANAGEMENT OF PATIENT CARE PER NURSING PROTOCOL Performed By: #### L501.080 #### [facility] Point [facility] [address] [place] [address] BASIC METABOLIC Collected: 11/07/2018 Status: F Source: [place] PROFILE (BMP) 5:45 AM [facility] REPOSITORY Order Comment: SPECIMEN OBTAINED FROM LINE DRAW TYPE CODE TESTS RESULT OUT OF RANGE REFERENCE UNITS LAB L501.0100 74-106 mg/dL High GLU 112 Result Comment: Fasting Glucose result from 100 to 125 mg/dL suggests IMPAIRED HOMEOSTASIS per A.D.A. criteria. Please note revised GLUCOSE reference range effective 2017. LAB L501.1000 7-18 mg/dL High BUN 51 LAB L501.1100 0.70-1.30 mg/dL High CREAT,SERUM 2.35 Result Comment: The validity of the calculated GFR AND GFRAA in patients over 70 years has not been determined. Clinical correlation is essential. LAB L501.1110 >60 mL/min Low EST GFR 30 Result Comment: Non- GFR Calc LAB L501.1115 >60 mL/min Low EST GFR - AA 36 Result Comment: GFR Calc LAB L501.1255 ml/min Normal Estimated CRCL 32.59 LAB L501.1300 10-20 RATIO High BUN/CRE 21.7 LAB L501.2200 8.5-10 mg/dL Low .1 CA 8.1 LAB L501.5300 136-14 mmol/L Normal 5 NA 136 LAB L501.5600 3.5-5. mmol/L Normal 1 K 4.5 LAB L501.5900 98-107 mmol/L Normal CL 101 LAB L501.6100 21.0-3 mmol/L Normal 2.0 CO2 27.0 LAB L501.6200 5-15 Normal GAP 8 Performed By: #### L500.2500 #### [facility] [address] [place], [address] BEDSIDE GLUCOSE Collected: 11/06/2018 Status: F Source: [place] 10:05 PM [facility] REPOSITORY TYPE CODE TESTS RESULT OUT OF RANGE REFERENCE UNITS LAB L501.080 70-110 mg/dL Normal BEDSIDE GLU 104 Result Comment: MANAGEMENT OF PATIENT CARE PER NURSING PROTOCOL Performed By: #### L501.080 #### [facility] Point of Care [address] [place] [address] MRSA WOUND DNA BY Collected: 11/06/2018 Status: F Source: [place] PCR 6:25 PM [facility] REPOSITORY Order Comment: Comments: RIGHT HEEL TYPE CODE TESTS RESULT OUT OF REFERENCE UNITS RANGE LAB L8200.1100 Negative High MRSA POSITIVE RESULT Result Comment: CALLED TO Polly CALDERA 11/[birth year]/181956 BY [facility] LAB L8200.1150 Negative High SA RESULT POSITIVE Performed By: #### L8200.1075 #### [facility] [facility] [place], [address] M R STAPH AUREUS Collected: 11/06/2018 Status: F Source: [place] DNA BY PCR 6:15 PM [facility] REPOSITORY TYPE CODE TESTS RESULT OUT OF RANGE REFERENCE UNITS LAB L8200.1100 Negative Normal MRSA Negative RESULT Performed By: #### L8200.1000 #### [facility] [place], [address] BEDSIDE GLUCOSE Collected: 11/06/2018 Status: F Source: [place] 4:33 PM [facility] REPOSITORY TYPE CODE TESTS RESULT OUT OF REFERENCE UNITS RANGE LAB L501.080 70-110 mg/dL High BEDSIDE GLU 151 Result Comment: MANAGEMENT OF PATIENT CARE PER NURSING PROTOCOL Performed By: #### L501.080 #### [facility] Point [facility] [address] [place] [address] CONSULTATION Observed: 11/06/2018 Status: F Source: [place] 1:05 PM [facility] REPOSITORY [facility] Medical Records Department [address] [place] [address] Consultation 11/05/18 1833 MR#: [id number] Acct: [id number] Name: JADA COLUNGA Rep #: [id number] : 1955 63 From: Jeremie Blankenship DPM PCP: OUT OF TOWN DOCTOR Status: ADM IN Y [place] [facility] [place] [id number] Reason for Consult Date of Consultation: 11/05/18 Reason for Consultation: Heel ulcers History of Present Illness: The patient is a 63 year old male with history of bilateral heel ulcerations, was last seen by myself end of 2017, had bilateral heel debridement, had infection to the right foot, was +MRSA at that time, he ultimately was transferred to [place] due to DENISHA, he relates he did not get dialysis. He relates he has been off of antibiotic for several weeks. He presented to the ER today after a fall, broke right hip. He relates his hip surgery is scheduled for Saturday. Podiatry was consulted for management of the heel ulcerations. He relates they have been healing well. He has no new pedal complaints. Right heel ulcer was cultured in preparation for right hip surgery. Past Medical History Past Medical History (Chronic Problems): Chronic Problems Decubitus ulcer of heel, right, unstageable (Chronic) Cellulitis of right heel (Chronic) S/P PTCA (percutaneous transluminal coronary angioplasty) (Chronic) Cardiomyopathy (Chronic) 38% gated nuclear EF on 11/03/18 ICD (implantable cardioverter-defibrillator) in place (Chronic) mediport placement (Chronic) Hyperlipidemia (Chronic) DM type 2 (diabetes mellitus, type 2) (Chronic) Chronic CHF (congestive heart failure) (Chronic) ef=25% as of 04/04 Carotid artery stenosis (Chronic) R CEA CAD (coronary artery disease) (Chronic) extensive disease multiple stents Hx of CABG (Chronic) Obesity (Chronic) Benign hypertension (Chronic) Allergies metoclopramide HCl [From Reglan] Adverse Reaction (Verified 11/05/18 11:26) goofy, anxious, elevated BP ondansetron HCl [From Zofran] Adverse Reaction (Verified 11/05/18 11:26) goofy, anxious, elevated BP Mdzmgeo-Gpg-Zux Reductase Inhibitor Adverse Reaction (Verified 11/05/18 11:26) rhabdomyolosis Home Medications: Ambulatory Orders Medication Instructions Recorded Isosorbide Mononitrate [Imdur] 30 mg PO BID 03/05/16 Surgical History: appendectomy, cataract, cholecystectomy, coronary bypass surgery - 2005 - [place], herniorrhaphy, tonsillectomy, - - Cardiac stent placement 24 (according to patient), right carotid endarterectomy. Psychiatric History: No pertinent psych hx Lives: With Family - he and his daughter live together, - - Smoking Status: Never smoker Tobacco Use: Non-smoker Alcohol: Rare Drugs: None - *Family History Maternal History Items: No pertinent history Paternal History Items: Heart Disease - of an UT at age 61 Sibling History Items: No pertinent history Review of Systems Constitutional: Denies: Chills, Fever Gastrointestinal: Denies: Nausea, Vomiting Patient Problems: Active and Suspected Problems LISSA (obstructive sleep apnea) (Acute) - Physical Exam General: Alert, Oriented x3, Cooperative, No apparent distress Extremities: No clubbing, No cyanosis, Capillary Refill Less than 3 Seconds, Edema - diffuse lower extremity edema, right worse than left, Peripheral Pulses Normal, - - Ulceration right heel - down to the subcutaneous tissue, there is some nonviable tissue present to the base and the margins, there is no deep probing or tracking - no evidence of bone, joint or muscle involvement, the margins are intact with no undermining, there is no maloder, no fluctuance, no crepitus, no visible abscess, no purulence present - there is some granular tissue present in the wound bed, no cellulitis or evidence of infection at this time, prior to debridement measured 2.8cm x 2.9cm down to subcutaneous tissue. Ulceration left heel - down to the subcutaneous tissue, there is some nonviable tissue present to the base and the margins, there is no deep probing or tracking, the margins are intact with no undermining, there is no maloder, no fluctuance, no crepitus, no visible abscess, no purulence present - there is some granular tissue present in the wound bed, no cellulitis or evidence of infection at this time. It measures 0.6cm x 0.3cm down to the subcutaneous tissue prior to debridement. No evidence of bone, joint or muscle involvement. No other open lesions bilateral foot/ankle or leg. Sensation significantly diminished bilateral foot due to peripheral neuropathy. Pedal pulses intact, CFT < 2 seconds to all toes bilateral foot. Musculoskeletal: No Tenderness to Palpation of Joints or Extremities - to the foot/ankle bilateral Vital Signs Temp Pulse Resp BP Pulse Ox 98.0 F 69 16 176/108 H 93 11/05/18 17:26 11/05/18 17:26 11/05/18 17:26 11/05/18 17:26 11/05/18 17:26 Oxygen Flow Rate (L/min) 2 Oxygen Delivery Method Nasal Cannula Weight: 119.6 kg Body Mass Index (BMI) 38.9 Finger Stick Blood Glucose 42 Laboratory Tests Past 24 Hrs WBC 8.6 RBC 3.61 L Hgb 10.5 L Hct 33.8 L MCV 93.6 MCH 29.1 MCHC 31.1 L RDW 17.2 H RDW Differential 59.0 H WBC RBC Hgb Hct MCV WBC RBC Hgb Hct Assessment/Plan All Active Problems Acute kidney injury (Resolved) LISSA (obstructive sleep apnea) (Acute) Anemia (Acute) Abnormal cardiac enzyme level (Resolved) Chest pain (Resolved) Shortness of breath (Resolved) hx epidural abscess (Resolved) Ulcer right heel down to the subcutaneous tissue layer - healing Ulcer/crack left heel down to the subcutaneous tissue layer - healing Diabetes with peripheral neuropathy Reviewed diagnostic data - right foot xray obtained - no acute changes, previous bone scan was negative for osteomyelitis, WBC within normal limits, no evidence of infection to the heel ulcerations. The ulceration right heel was debrided in excisional fashion down to the subcutaneous tissue layer using a 15 blade. Post debridement the ulceration right heel measures 3cm x 3cm, down to the subcutaneous tissue layer, no anesthesia was needed due to patient's peripheral neuropathy, base and margins healthy and viable post debridement - there was no visible abscess or pockets, no fluctuance or crepitus, no purulence, margins intact with no undermining - there is no probe or tracking to bone or deeper structures. Betadine solution and a gauze / margaret dressing applied. Keep offloaded at all times. Ulceration/crack left heel: The ulceration was debrided in excisional fashion down to the subcutaneous tissue layer using a 15 blade. Post debridement the ulceration right heel measures 0.8cm x 0.4cm and down to the subcutaneous tissue layer, no anesthesia was needed due to patient's peripheral neuropathy, base and margins healthy and viable post debridement - there was no visible abscess or pockets, no fluctuance or crepitus, no purulence, margins intact with no undermining - there is no probe or tracking to bone or deeper structures. Betadine solution and a gauze / margaret dressing applied. Keep offloaded at all times. Wound nurse consulted. Daily dressing changes of Aquacel Ag with overlying gauze dressing - change daily. Patient to keep heels offloaded at all times. Reviewed with patient importance of proper diabetic / blood sugar control to optimize healing. Podiatry will continue to follow 1-2 times weekly. Thank you for consultation. 11/06/18 1305 <Electronically signed by Jeremie Blankenship DPM> Date Jeremie Blankenship DPM Cosigner Signature (if applicable): Date CC: Jeremie Blankenship DPM; Justin Mensah DO; OUT OF TOWN DOCTOR Signed CONSULTATION Observed: 11/06/2018 Status: F Source: [place] 12:16 PM [facility] REPOSITORY [facility] Medical Records Department [address] [place] [id number] Consultation 11/06/18 1203 MR#: [id number] Acct: [id number] Name: JADA COLUNGA Rep #: [id number] : 1955 63 From: Justin Mensah DO PCP: OUT OF TOWN DOCTOR Status: ADM IN Y Location: MS3 [id number] Reason for Consult Date of Consultation: 11/06/18 Reason for Consultation: Right hip pain secondary to a fall at home History of Present Illness: The patient is a 63 year old M [with significant DJD of his hip and significant antecedent right hip pain. He uses a wheeled walker at home to ambulate. He fell at home suffering an intertrochanteric fracture of his right hip. He has multiple medical co-morbidities and bilateral heel ulcers. He was seen by podiatry yesterday. He is well known to them. He had the right heel debrided yesterday. Podiatry consult in chart and reviewed.] Past Medical History Past Medical History (Chronic Problems): Chronic Problems Decubitus ulcer of heel, right, unstageable (Chronic) Cellulitis of right heel (Chronic) S/P PTCA (percutaneous transluminal coronary angioplasty) (Chronic) Cardiomyopathy (Chronic) 38% gated nuclear EF on 11/03/18 ICD (implantable cardioverter-defibrillator) in place (Chronic) mediport placement (Chronic) Hyperlipidemia (Chronic) DM type 2 (diabetes mellitus, type 2) (Chronic) Chronic CHF (congestive heart failure) (Chronic) ef=25% as of 04/04 Carotid artery stenosis (Chronic) R CEA CAD (coronary artery disease) (Chronic) extensive disease multiple stents Hx of CABG (Chronic) Obesity (Chronic) Benign hypertension (Chronic) Allergies metoclopramide HCl [From Reglan] Adverse Reaction (Verified 11/05/18 11:26) goofy, anxious, elevated BP ondansetron HCl [From Zofran] Adverse Reaction (Verified 11/05/18 11:26) goofy, anxious, elevated BP Corfave-Txx-Ajs Reductase Inhibitor Adverse Reaction (Verified 11/05/18 11:26) rhabdomyolosis Home Medications: Ambulatory Orders Medication Instructions Recorded Isosorbide Mononitrate [Imdur] 30 mg PO BID 03/05/16 Surgical History: appendectomy, cataract, cholecystectomy, coronary bypass surgery - 2004 - [place], herniorrhaphy, tonsillectomy, - - Cardiac stent placement 24 (according to patient), right carotid endarterectomy. Psychiatric History: No pertinent psych hx Lives: With Family - he and his daughter live together, - - Smoking Status: Never smoker Tobacco Use: Non-smoker Alcohol: Rare Drugs: None - *Family History Maternal History Items: No pertinent history Paternal History Items: Heart Disease - of an UT at age 61 Sibling History Items: No pertinent history Patient Problems: Active and Suspected Problems LISSA (obstructive sleep apnea) (Acute) - Physical Exam General: Alert, Oriented x3, No apparent distress Skin: Ulcer/ Wound - bilateral heels. Dressing in place on right. Musculoskeletal: Tenderness - right hip, motion not tested due to known fracture. Neurological: Neuro grossly intact - Distal sensation is diminished secondary to peripheral neuropathy Psych/Mental Status: Appropriate Comment: xrays and CT reviewed Vital Signs Temp Pulse Resp BP Pulse Ox 99.2 F H 62 18 133/76 H 94 11/06/18 10:00 11/06/18 10:00 11/06/18 10:00 11/06/18 10:00 11/06/18 10:00 Oxygen Flow Rate (L/min) 3 Oxygen Delivery Method Nasal Cannula Weight: 263 lb 10.766 oz Body Mass Index (BMI) 38.9 Finger Stick Blood Glucose 42 Intake and Output for Last 24 Hours Intake Total 400 / 400 1264 / 1264 Output Total 450 / 450 300 / 300 Balance -50 / -50 964 / 964 Microbiology Past 72 Hours 11/05/18 16:45 Gram Stain - Final Wound - Heel Right Laboratory Tests Past 24 Hrs WBC 8.6 RBC 3.61 L Hgb 10.5 L Hct 33.8 L WBC RBC Hgb Hct MCV MCH MCHC RDW RDW Differential Plt Count MPV PT INR Sodium POC Glucose POC Glucose 228 H 213 H Assessment/Plan All Active Problems Acute kidney injury (Resolved) LISSA (obstructive sleep apnea) (Acute) Anemia (Acute) Abnormal cardiac enzyme level (Resolved) Chest pain (Resolved) Shortness of breath (Resolved) hx epidural abscess (Resolved) Intertrochanteric fracture right hip with significant underlying DJD. Bilateral heel ulcers Multiple medical co-morbidities. This patient was scheduled for a right THR in 2015 which was ultimately cancelled due to medical co-morbidities. He is medically more stable now and I think he would benefit most from a right THR. Will discuss case with my partner (Dr. Moreira) who is our total joint specialist. He is unavailable until next week to do this procedure. Patient understands this. If Dr. Moreira is unable or unwilling to do his surgery here due to the patient's medical co-morbidities, the patient may need transferred to a tertiary facility. 11/06/18 1216 <Electronically signed by Justin Mensah DO> Date Justin Antoinesherly DO Cosigner Signature (if applicable): Date CC: Jeremie Blankenship DPM; Justin Mensah DO; OUT OF TOWN DOCTOR Signed BEDSIDE GLUCOSE Collected: 11/06/2018 Status: F Source: [place]DR[facility] 12:02 PM [facility] REPOSITORY TYPE CODE TESTS RESULT OUT OF REFERENCE UNITS RANGE LAB L501.080 70-110 mg/dL High BEDSIDE GLU 169 Result Comment: MANAGEMENT OF PATIENT CARE PER NURSING PROTOCOL Performed By: #### L501.080 #### [facility] Point of Care [address] [place], [place] [address] BEDSIDE GLUCOSE Collected: 11/06/2018 Status: F Source: SANDRA 6:36 AM [facility] REPOSITORY TYPE CODE TESTS RESULT OUT OF REFERENCE UNITS RANGE LAB L501.080 70-110 mg/dL High BEDSIDE GLU 228 Result Comment: MANAGEMENT OF PATIENT CARE PER NURSING PROTOCOL Performed By: #### L501.080 #### [facility] Point [facility] [address] [place], [place] [address] CBC-COMPLETE BLOOD CNT Collected: 11/06/2018 Status: F Source: [place]DR[place] NO DIFF 6:05 AM [facility] REPOSITORY TYPE CODE TESTS RESULT OUT OF RANGE REFERENCE UNITS LAB L100.1000 4.4-11.0 K/mm3 Normal WBC 10.2 LAB L100.1200 4.6-6.2 M/mm3 Low RBC 3.45 LAB L100.1300 13.0-16.5 g/dl Low HGB 10.0 LAB L100.1400 40-54 % Low HCT 32.5 LAB L100.1500 80-94 fL High MCV 94.2 LAB L100.1600 27.0-32.0 pg Normal MCH 29.0 LAB L100.1700 32-36 g/gl Low MCHC 30.8 LAB L100.1810 11.6-14.6 % High RDW CV 16.8 LAB L100.1820 35.1-43.9 fl High RDW SD 58.4 LAB L100.1900 150-450 K/mm3 Normal PLT 189 LAB L100.2000 6.2-12.0 fl Normal MPV 9.8 Performed By: #### L100.0500 #### [facility] [address] [place], [address] BASIC METABOLIC Collected: 11/06/2018 Status: F Source: [place] PROFILE (BMP) 6:05 AM [facility] REPOSITORY TYPE CODE TESTS RESULT OUT OF RANGE REFERENCE UNITS LAB L501.0100 74-106 mg/dL High GLU 231 Result Comment: Glucose result greater than or equal to 200 mg/dL suggests DIABETES MELLITUS per A.D.A. criteria. Please note revised GLUCOSE reference range effective 2017. LAB L501.1000 7-18 mg/dL High BUN 47 LAB L501.1100 0.70-1.30 mg/dL High CREAT,SERUM 1.76 Result Comment: The validity of the calculated GFR AND GFRAA in patients over 70 years has not been determined. Clinical correlation is essential. LAB L501.1110 >60 mL/min Low EST GFR 42 Result Comment: Non- GFR Calc LAB L501.1115 >60 mL/min Low EST GFR - AA 51 Result Comment: GFR Calc LAB L501.1255 ml/min Normal Estimated CRCL 43.52 LAB L501.1300 10-20 RATIO High BUN/CRE 26.7 LAB L501.2200 8.5-10 mg/dL Low .1 CA 8.1 LAB L501.5300 136-14 mmol/L Low 5 NA 135 LAB L501.5600 3.5-5. mmol/L Normal 1 K 4.3 LAB L501.5900 98-107 mmol/L Normal CL 100 LAB L501.6100 21.0-3 mmol/L Normal 2.0 CO2 28.0 LAB L501.6200 5-15 Normal GAP 7 Performed By: #### L500.2500, L500.4100, L501.5200 #### [facility] [address] [place], [place], [address] LIPID PROFILE Collected: 11/06/2018 Status: F Source: [place] 6:05 AM [facility] REPOSITORY TYPE CODE TESTS RESULT OUT OF RANGE REFERENCE UNITS LAB L501.4900 200 mg/dL Normal CHOL 76 Result Comment: <200 mg/dL Desirable 200-240 mg/dL Borderline >240 mg/dL High Risk LAB L501.5000 mg/dL Normal TRIG 99 Result Comment: The drugs N-Acetylcysteine and Metamizole may falsely depress this assay. Serum Triglycerides Reference Interval Normal <150 mg/dL Borderline high 150 - 199 mg/dL High 200 - 499 mg/dL Very High > or = 500 mg/dL LAB L501.6400 mg/dL Low HDL 25 Result Comment: The drugs N-Acetylcysteine and Metamizole may falsely depress this assay. Reference Range HDL <40 mg/dL Low HDL Cholesterol HDL >or= 60 mg/dL High HDL Cholesterol LAB L501.6500 0-130 mg/dL Normal LDL 31 LAB L501.6600 5-40 mg/dL Normal VLDL 20 Performed By: #### L500.2500, L500.4100, L501.5200 #### [facility] [address] [place], [address] MAGNESIUM Collected: 11/06/2018 Status: F Source: [place]DR[place] 6:05 AM [facility] REPOSITORY TYPE CODE TESTS RESULT OUT OF RANGE REFERENCE UNITS LAB L501.5200 1.6-2.6 mg/dL High MG 2.7 Performed By: #### L500.2500, L500.4100, L501.5200 #### [facility] [address] [place], [address] BEDSIDE GLUCOSE Collected: 11/05/2018 Status: F Source: [place] 9:32 PM [facility] REPOSITORY TYPE CODE TESTS RESULT OUT OF REFERENCE UNITS RANGE LAB L501.080 70-110 mg/dL High BEDSIDE GLU 213 Result Comment: MANAGEMENT OF PATIENT CARE PER NURSING PROTOCOL Performed By: #### L501.080 #### [facility] Point [facility] [address] [place] [address] HISTORY AND PHYSICAL Observed: 11/05/2018 Status: F Source: [place] EXAM 5:26 PM [facility] REPOSITORY [facility] Medical Records Department [address] [place] [address] History and Physical 01/16/19 1433 MR#: [id number] Acct: [id number] Name: JADA COLUNGA Rep #: [id number] : [id number] 63 From: Kenyon Hanks DO PCP: OUT OF TOWN DOCTOR Status: ADM IN Y Location: MS3 [id number] ADDENDUM by Geraldine Hanks on 11/05/18 at 1726 Code Visit Inpatient E AND M: [id number] Init Hosp L3 11/05/18 1726 <Electronically signed by Kenyon Hanks DO> Date Kenyon Hanks DO cc: Geraldine Hanks; Justin Mensah DO; OUT OF TOWN DOCTOR * Signed Problem List (1) Abnormal cardiac enzyme level Status: Resolved (2) Acute kidney injury Status: Resolved (3) Anemia Status: Acute Qualifiers: Anemia type: other cause Other causes of anemia: acute posthemorrhagic Qualified Code(s): D62 - Acute posthemorrhagic anemia (4) Chest pain Status: Resolved (5) Shortness of breath Status: Resolved (6) Benign hypertension Status: Chronic (7) CAD (coronary artery disease) Status: Chronic Comment: extensive disease multiple stents (8) Cardiomyopathy Status: Chronic Qualifiers: Cardiomyopathy type: ischemic Comment: 38% gated nuclear EF on 11/03/18 (9) Carotid artery stenosis Status: Chronic Comment: R CEA (10) Cellulitis of right heel Status: Chronic (11) Chronic CHF (congestive heart failure) Status: Chronic Qualifiers: Heart failure type: systolic Qualified Code(s): I50.22 - Chronic systolic (congestive) heart failure Comment: ef=25% as of 04/04 (12) DM type 2 (diabetes mellitus, type 2) Status: Chronic (13) Hx of CABG Status: Chronic (14) Hyperlipidemia Status: Chronic (15) ICD (implantable cardioverter-defibrillator) in place Status: Chronic (16) Obesity Status: Chronic Qualifiers: Obesity classification: adult class 2 (BMI 35 - 39.9) (17) S/P PTCA (percutaneous transluminal coronary angioplasty) Status: Chronic (18) hx epidural abscess Status: Resolved (19) mediport placement Status: Chronic (20) LISSA (obstructive sleep apnea) Status: Acute (21) Decubitus ulcer of heel, right, unstageable Status: Chronic History of Present Illness Date of Admission: 11/05/18 Chief Complaint: Pain in the right hip after falling out of bed. The patient is a 63 year old M with a past medical history of coronary artery disease, PTCA with multiple stents, CABG, ischemic cardiomyopathy with a gated nuclear ejection fraction of 38% on stress test done 11/03/18, chronic systolic congestive heart failure, AICD placement, hyperlipidemia, hypertension, diabetes mellitus type 2, carotid artery stenosis with history of right carotid endarterectomy, chronic renal failure, peptic ulcer disease, anemia thought to be secondary to PUD and morbid obesity who presented to the emergency department at [facility] on 11/05/2018 complaining of right hip pain after a fall at home. He was standing at the bedside using a urinal and when he was done he fell. He denies syncope. no CP and no SOB or palpitations. An x-ray of the right hip revealed a right intertrochanteric fracture and evidence of severe DJD. He admits to having R hip pain for quite some time and has been using a FWW. He also has a decubitus ulcer on the R heel that is at least a stage 2 and is non-healing. He recently had a venous ultrasound of the right lower extremity that was negative for DVT. An arterial study of the RLE recently showed ALFRED's > 1.0 but, there is no read on the study yet. Vital signs at presentation to the emergency room were temp 99 F, pulse rate 75, blood pressure 162/80, respiratory rate 17 and he was 87% saturated on room air. CBC is remarkable for a hemoglobin of 10.5 with normochromic normocytic indices and an elevated RDW at 17.2. INR is prolonged at 1.4 with a PT of 17 and he is on no anticoagulants. BMP shows potassium of 3.5 and a BUN of 46 with a creatinine of 1.36 which is down from 1.9 on 11/03/2018. He has been following with with cardiology in [facility] but, recently moved back to [place] and was recently an inpt at [facility] from 1/7 to 11/03. The last stress test was 1419 and showed extensive previous anterior and anterior apical infarct with minimal kaur-infarct ischemia. Gated nuclear ejection fraction was 38%. The anterior wall is severely hypokinetic. Last echocardiogram was 10/18/2018 and showed mild to moderate segmental systolic dysfunction with an ejection fraction estimated at 45%. There was mild concentric left ventricular hypertrophy, moderate left atrial enlargement, 1-2+ mitral valve insufficiency, borderline enlarged aortic root, evidence of diastolic dysfunction and a right ventricular systolic pressure estimated at 37. Past Medical History Past Medical History (Chronic Problems): Chronic Problems Decubitus ulcer of heel, right, unstageable (Chronic) Cellulitis of right heel (Chronic) S/P PTCA (percutaneous transluminal coronary angioplasty) (Chronic) Cardiomyopathy (Chronic) 38% gated nuclear EF on 11/03/18 ICD (implantable cardioverter-defibrillator) in place (Chronic) mediport placement (Chronic) Hyperlipidemia (Chronic) DM type 2 (diabetes mellitus, type 2) (Chronic) Chronic CHF (congestive heart failure) (Chronic) ef=25% as of 04/04 Carotid artery stenosis (Chronic) R CEA CAD (coronary artery disease) (Chronic) extensive disease multiple stents Hx of CABG (Chronic) Obesity (Chronic) Benign hypertension (Chronic) Allergies metoclopramide HCl [From Reglan] Adverse Reaction (Verified 11/05/18 11:26) goofy, anxious, elevated BP ondansetron HCl [From Zofran] Adverse Reaction (Verified 11/05/18 11:26) goofy, anxious, elevated BP Xqnhppf-Fju-Rua Reductase Inhibitor Adverse Reaction (Verified 11/05/18 11:26) rhabdomyolosis Home Medications: Ambulatory Orders Medication Instructions Recorded Isosorbide Mononitrate [Imdur] 30 mg PO BID 03/05/16 Surgical History: appendectomy, cataract, cholecystectomy, coronary bypass surgery - 2005 - [place], herniorrhaphy, tonsillectomy, - - Cardiac stent placement 24 (according to patient), right carotid endarterectomy. Psychiatric History: No pertinent psych hx Lives: With Family - he and his daughter live together, - - Smoking Status: Never smoker Tobacco Use: Non-smoker Alcohol: Rare Drugs: None - *Family History Maternal History Items: No pertinent history Paternal History Items: Heart Disease - of an UT at age 61 Sibling History Items: No pertinent history Review of Systems Constitutional: Denies: Anorexia, Chills, Fever, Weight Change Eyes: Denies: Conjunctivae Inflammation, Drainage, Redness HEENT: Denies: Difficulty Swallowing, Head Aches, Sinus Congestion, Sinus Drainage Cardiovascular: Denies: Chest Pain, Light Headedness, Orthopnea, Palpitations, Paroxysmal Noc. Dyspnea, Syncope Respiratory: Denies: Cough, Shortness of Breath, Shortness of breath at rest, Sputum production Gastrointestinal: Denies: Abdominal Pain, Nausea, Vomiting Genitourinary: Denies: Dysuria Musculoskeletal: Reports: Joint Tenderness - chronic R hip pain, - - acute R hip pain due to acute R hip fracture. Denies: Joint Pain Skin: Denies: Rash, Wounds Neurological: Denies: Change in Speech, Slurred speech, Confusion, Focal weakness, Numbness, Tingling, Seizures Psychiatric: Denies: Anxiety, Depression, Homicidal Ideations, Suicidal Ideations Endocrine: Denies: Change in Body Habitus Hematologic/ Lymphatic: Denies: Easy Bruising, Easy Bleeding, Hx of blood clot VTE Information - Inpt Only VTE Present on Admission: No VTE Mechan Device Prophylaxis: SCD's, Knee High NUBIA Hose VTE Pharm Prophylaxis ordered?: Yes Patient Problems: Active and Suspected Problems LISSA (obstructive sleep apnea) (Acute) - Physical Exam General: Alert, Oriented x3, Cooperative, Well developed, Well nourished HEENT: Atraumatic, PERRLA, EOMI, Normocephalic, - - No scleral icterus Oral: Moist Mucosa Neck: Supple, No JVD, Negative Carotid Bruits, No Nodes, No Nuchal Rigidity, Trachea Midline Lungs: Clear to auscultation, Normal air movement, No rhonchi, No wheeze, No rales Cardiovascular: Regular rate, Regular Rhythm, Normal S1, Normal S2, Murmur - He has a 1/6 to 2/6 systolic murmur at the lower left sternal border, No rub noted, No Gallop Abdomen: Bowel Sounds Present, Soft, Non Tender, Non-Distended, No Hepato-splenomegaly, - - No masses Extremities: No clubbing, No cyanosis, Capillary Refill Less than 3 Seconds, No Calf Tenderness, Edema - R>L LE, pitting, Peripheral Pulses Normal Skin: No rashes, Ulcer/ Wound - he has at least a stage II decubitus ulcer on the R heel......rim of hyperkeratotic skin with copious yellow/brown DC, can not tell at this time if it is into the muscle or not. there is no erythema and no odor Musculoskeletal: No Tenderness to Palpation of Joints or Extremities, No Muscle Wasting Neurological: Cranial nerves II-XII grossly intact Psych/Mental Status: Normal Affect, Appropriate Vital Signs Temp Pulse Resp BP Pulse Ox 99 F 74 17 164/74 H 93 11/05/18 11:23 11/05/18 14:21 11/05/18 14:21 11/05/18 14:21 11/05/18 14:21 Oxygen Flow Rate (L/min) 2 Oxygen Delivery Method Nasal Cannula Weight: 247 lb Body Mass Index (BMI) 36.4 Finger Stick Blood Glucose 42 Laboratory Tests Past 24 Hrs WBC 8.6 RBC 3.61 L Hgb 10.5 L Hct 33.8 L MCV 93.6 MCH 29.1 MCHC 31.1 L RDW 17.2 H RDW Differential 59.0 H WBC RBC Hgb Hct MCV MCH MCHC RDW RDW Differential Plt Count MPV PT INR Sodium Potassium Chloride Carbon Dioxide Anion Gap Assessment/Plan All Active Problems Acute kidney injury (Resolved) LISSA (obstructive sleep apnea) (Acute) Anemia (Acute) Abnormal cardiac enzyme level (Resolved) Chest pain (Resolved) Shortness of breath (Resolved) hx epidural abscess (Resolved) Impressions 1. Acute right intertrochanteric hip fracture secondary to fall on chronic severe degenerative joint disease right hip 2. Nonhealing decubitus ulcer of the right heel 3. Ischemic cardiomyopathy with a recent gated nuclear ejection fraction of 38% 4. Coronary artery disease with history of CABG and PTCA/stents in the past-recent chemical nuclear stress test with minimal kaur-infarct ischemia 5. Diabetes mellitus type 2 6. Hypertension 7. Hyperlipidemia 8. Morbid obesity 9. Normochromic normocytic anemia with recent acute blood loss secondary to peptic ulcer disease with hemorrhage 10. Recent acute kidney injury with creatinine of 5.43 on 10/19/2018-never required dialysis and current creatinine is 1.36 11. Borderline hypokalemia 12. Carotid artery stenosis with history of right CEA 13. Peptic ulcer disease 14. History of AICD placement 15. Obstructive sleep apnea-compliant with CPAP 16. Hypophosphatemia Admitted to [place] on Telemetry Dr. Mensah on consult CT scan of the R hip - Dr. Mensah suspects he will need a THR Check a HGBA1C, liver panel, mag and phos Accuchecks AC and HS with SSI Lovenox 40 mg daily for DVT prophylaxis in addition to TEDS and SCD's Consult Dr. Blankenship for the R heel Decub Consult the wound care nurse Culture the wound after washing with NS Recheck the lab in the AM Supplement the potassium to keep it at 4 Supplement phosphorus Lipid panel in the a.m. [place] [employer]PER[employer] APPRENTICE for pain control Recently told he has PUD but not on a PPI or and H2 bridgett - start Protonix 40 mg daily Check a Hemoccult stool 11/05/18 1630 <Electronically signed by Kenyon Hanks DO> Date Kenyon Hanks DO Cosigner Signature: Date (if applicable) CC: Geraldine Hanks; Justin Mensah DO; OUT OF TOWN DOCTOR Signed BEDSIDE GLUCOSE Collected: 11/05/2018 Status: F Source: [place]DRA 5:01 PM [facility] REPOSITORY TYPE CODE TESTS RESULT OUT OF REFERENCE UNITS RANGE LAB L501.080 70-110 mg/dL High BEDSIDE GLU 232 Result Comment: MANAGEMENT OF PATIENT CARE PER NURSING PROTOCOL Performed By: #### L501.080 #### [facility] Point of Care [address] [place] [address] URINALYSIS, COMPLETE Collected: 11/05/2018 Status: F Source: SANDRA 4:45 PM [facility] REPOSITORY Order Comment: How was Urine Obtained? CATHETER SPECIMEN TYPE CODE TESTS RESULT OUT OF RANGE REFERENCE UNITS LAB L400.3000 Yellow COLOR Normal Yellow LAB L400.3050 Clear Normal CLARITY Clear LAB L400.3200 Normal mg/dl High GLUCOSE, UR 250 LAB L400.3300 Negative mg/dL Normal BILIRUBIN URINE Negative LAB L400.3400 Negative mg/dl High 5 KETONE UR LAB L400.3465 1.002-1.030 Normal SP.GR. DIPSTX 1.015 LAB L400.3550 5.0 - 8.0 pH UR Normal 5.0 LAB L400.3600 Negative mg/dl High PROT DIPSTX 100 LAB L400.3700 Normal mg/dl High 1 UROBILI LAB L400.3750 Negative Normal NITRITE UR Negative LAB L400.3780 Negative /ul High 10 OCCULT BLOOD-UR LAB L400.3800 Negative /ul LEUK Normal ESTERASE Negative LAB L400.4050 0-5 /hpf WBC 0 Normal SEEN LAB L400.4100 0-5 /hpf 0 Normal RBC-UA SEEN LAB L400.4150 0-5 /hpf SQUAM 0 Normal EPI SEEN LAB L400.4300 None Seen /hpf 0 Normal BACTERIA SEEN LAB L400.4350 <or=2+ /hpf 0 Normal MUCUS, URINE SEEN Performed By: #### L400.0001 #### [facility] [address] [place], [address] Observed: 11/05/2018 Status: F Source: [place] CULTURE, WOUND 4:45 PM [facility] REPOSITORY List Antibiotics Last 48 Hours? none Comments: decub R heel Gram Stain Gram Stain 1+ Gram positive cocci 1+ White Blood Cells Wound Culture RESULTS CALLED TO /NURSE LINE 11/10/18 0814 Teodora Mazariegos. Copy of report sent to Infection Control Printer [id number] 11/08/18 0816 KIMBERLY. ORGANISM 1: Meth. resistant Staph. aureus Amount Growth 3+ ORGANISM 2: Streptococcus group G Amount Growth 3+ Meth. resistant Staph. aureus: REACTION Cefoxitin *NF POS Doxycline <=0.5 S Daptomycin $$ 0.25 S Clindamycin $$ >=4 R Inducable Clindamycin Resistan NEG Erythromycin $ >=8 R Gentamicin $ <=0.5 S Levofloxacin $ 0.5 S Linezolid $$$$ 1 S Moxifloxicin *NF <=0.25 S Oxacillin NF >=4 R Tigecycline $$$$ <=0.12 S Rifampin $$ <=0.5 S Tetracycline NF <=1 S Trimethoprim/Sulfametho $ <=10 S Vancomycin $ <=0.5 S (NF) indicates non-formulary drug at [facility]. Approval by Infectious Disease Specialist required before non-formulary drugs may be ordered and/or dispensed. * CLSI guidelines does not recommend testing of cephalosporins. This interpretation is deduced from Beta-lactam/penicillin results. Streptococcus group G: REACTION Ampicillin $ <=0.25 S Benzylpenicillin NF <=0.06 S Cefotaxime (Other dx) $ <=0.12 S Ceftriaxone (other dx) $ <=0.12 S Clindamycin $$ R Erythromycin $ >=8 R Linezolid $$$$ <=2 S Vancomycin $ 0.5 S (NF) indicates non-formulary drug at [facility]. Approval by Infectious Disease Specialist required before non-formulary drugs may be ordered and/or dispensed. * CLSI guidelines does not recommend testing of cephalosporins. This interpretation is deduced from Beta-lactam/penicillin results. Performed By: #### M100.1400 #### [facility] [address] [place], [address] Observed: 11/05/2018 Status: F Source: [place] CULTURE, URINE 4:35 PM [facility] REPOSITORY Urine Culture Culture exhibits no growth. Performed By: #### M100.0650 #### [facility] [address] [facility] [place], [place], [address] FOOT 2 VIEWS Observed: 11/05/2018 Status: F Source: [place] 4:22 PM [facility] REPOSITORY [facility] Imaging Services [address] [place] [address] Foot 2 Views MR#: [id number] Acct: [id number] Name: JADA COLUNGA Rep #: [id number] : 1955 M 63 From: Gerardo Villegas MD PCP: OUT OF TOWN DOCTOR Status: ADM IN Study: Foot 2 Views Date of Exam: 11/05/18 Exam# [id number] Ordering Dr: Jeremie Blankenship DPM STUDY: X-RAY - RIGHT FOOT CLINICAL: Male, 63 years old. Right foot ulcer TECHNIQUE: 1 view(s) of the foot. COMPARISON: Previous study of 10/13/2018 FINDINGS: There is a tiny plantar aspect calcaneal spur. Normal visualized subtalar, talonavicular, calcaneocuboid, tarsal and tarsometatarsal articulations. Normal metatarsi. Normal metatarsophalangeal joint of the great toe. Normal tibial and fibular sesamoid bones. Normal interphalangeal joint of the great toe. There is limited visualization of the phalanges as only a lateral projection was obtained. There is soft tissue swelling of the dorsum of the foot. Several tiny splinterlike metallic appearing foreign bodies are seen in the soft tissues of the plantar aspect of the midfoot. RAD/Foot 2 Views IMPRESSION: Soft tissue swelling of the dorsum of the foot. Several tiny splinterlike metallic appearing foreign bodies are seen in the soft tissues of the plantar aspect of the midfoot. Arterial calcifications are noted in the right foot and ankle. There is no evidence of soft tissue gas. Electronically Signed: Gerardo Villegas MD at 18:06 EST , Service support , CC: Jeremie Blankenship DPM; OUT OF TOWN DOCTOR Software Developer Mid Level: Signed EMERGENCY DEPARTMENT Observed: 11/05/2018 Status: F Source: [place] SUMMARY 4:04 PM [facility] REPOSITORY [facility] Medical Records Department [address] [place] [address] Emergency Department Summary 11/05/18 1133 MR#: [id number] Acct: [id number] Name: JADA COLUNGA Rep #: [id number] : 1955 63 From: Jeremie Li MD PCP: OUT OF TOWN DOCTOR Status: ADM IN - ER Visit Summary Date of Service: 11/05/18 Chief Complaint: Fall with right hip pain History of Present Illness: The patient is a 63 M history of noncemented diabetes, multiple cardiac stents, CAD,'s TIA and renal insufficiency. Patient states around 10:00 he was try to get out of bed. He fell and landing awkwardly on his right hip. States that he has I am locked hip pain and severe pain with trying to stand and bear weight on his right hip. No prior history of than arthritis in his hip. He denies hitting his head. He is not on blood thinners. Physical Examination: Older male no acute distress. Lying in bed. Vital signs are stable and afebrile. HEENT exam pupils round reactive light. No signs of trauma to his face or scalp. Nontender. C-spine nontender. Trachea midline. Lungs clear to auscultation bilaterally. Heart regular rhythm no murmur. Abdomen is soft and nontender. Normal bowel sounds no peritoneal signs. Upper extremities are nontender. Normal handbag framer strength. Wrists, elbows and shoulders are nontender. Back is nontender. His pelvis and right hip are tender to palpation. He has decreased range of motion of the right hip due to pain. And pain with attempted range of motion. Left lower extremity ankle knee and hip are nontender. Neurologically is awake alert with no focal motor deficits. Test Results: All his right hip x-ray shows an arthritis of the right hip with an acute right intertrochanteric hip fracture.. Screening labs were obtained for preop. EKG shows sinus rhythm rate of 72 with first-degree AV block. White count 8. Hemoglobin 10.5 which is his baseline anemia. Electrolytes show a gap of 7. Creatinine 1.36 which is better than baseline. INR 1.4. Patient was typed and screened. Emergency Department Course and Treatment: Patient will concern for possible right hip fracture. Patient be medicated with morphine and Zofran. X-rays will be obtained. Treatment Plan: Morphine x2 doses and Zofran. Currently is doing well. Hospitalist and orthopedic physician are both on page for admission. Disposition: Admission Impression: Acute fall Acute right hip pain intertrochanteric hip fracture This note was generated with [employer] dictation software. It may contain incorrect words, spelling, and punctuation that were not noted in review of the chart prior to signing ED Disposition - Plan for ED Patient: Chief Complaint: Fall Referrals: [facility] Doctor,Out of [Primary Care Provider] - What to do if you have Problems For any increased pain, shortness of breath, bleeding, nausea or vomiting, chest pain, or any unexpected problems, contact your Primary Care Provider. Call [facility] ([phone]) or report to the closest Emergency Room. Call 911 if necessary. 11/05/18 1604 <Electronically signed by Jeremie Li MD> Date Jeremie Li MD Cosigner Signature (If Indicated): Date CC: OUT OF TOWN DOCTOR CHEST 1 VIEW Observed: 11/05/2018 Status: F Source: [place] 3:05 PM [facility] REPOSITORY [facility] Imaging Services [address] [place] [address] Chest 1 View MR#: [id number] Acct: [id number] Name: BRIGITTEJADA GRAHAM Prerna Rep #: [id number] : 1955 M 63 From: Boris Lizarraga MD PCP: OUT OF TOWN DOCTOR Status: ADM IN Study: Chest 1 View Date of Exam: 11/05/18 Exam# [id number] Ordering Dr: Kenyon Hanks DO STUDY: X-RAY CHEST REASON FOR EXAM: Male, 63 years old. Shortness of breath TECHNIQUE: Frontal view of the chest COMPARISON: 10/27/2018 FINDINGS: There is a right-sided port with its tip in the superior vena cava. The lungs are clear. There are no pleural effusions. There is no pneumothorax. The heart is enlarged, but stable. Again noted is a pacemaker and sternotomy wires. The visualized osseous structures are within normal limits. RAD/Chest 1 View IMPRESSION: No acute thoracic pathology. Electronically Signed: Boris Lizarraga, at 15:37 EST Tel , Service support , CC: Geraldine Hanks; OUT OF TOWN DOCTOR Software Developer Mid Level: Signed PELVIS WITHOUT IV Observed: 11/05/2018 Status: F Source: [place] CONTRAST 3:05 PM [facility] REPOSITORY [facility] Imaging Services [address] [place] [address] Pelvis without IV Contrast MR#: [id number] Acct: [id number] Name: JADA COLUNGA Rep #: [id number] : 1955 63 From: Gerardo Villegas MD PCP: OUT OF TOWN DOCTOR Status: ADM IN Study: Pelvis without IV Contrast Date of Exam: 11/05/18 Exam# [id number] Ordering Dr: Kenyon Hanks DO STUDY: CT PELVIS WITHOUT CONTRAST REASON FOR EXAM: Male, 63 years old. Right hip fracture RADIATION DOSAGE (If Supplied By Facility): CTDIvol = ( 44.58 ) mGy, DLP = ( 1313.30 ) mGycm TECHNIQUE: Transaxial imaging of the pelvis was performed with oral contrast, and without intravenous administration of contrast material. Individualized dose optimization techniques were used for this CT. COMPARISON: None. FINDINGS: Normal urinary bladder. Normal visualized small intestine. Normal visualized colon. There is a small amount of pelvic ascites. There is diffuse fatty stranding of the pelvis. There is no pelvic mass lesion or lymphadenopathy. There is calcification of the vas deferens. Normal visualized pelvic arteries. There is fatty stranding of the subcutaneous fat. There is a fat-containing left inguinal hernia. There are severe arthritic changes of the right hip. There is a nondisplaced comminuted intertrochanteric fracture of the right femur. There is no evidence of pelvic fracture. CT/Pelvis without IV Contrast IMPRESSION: 1. Nondisplaced comminuted intertrochanteric fracture of the right femur. 2. There are severe arthritic changes of the right hip. 3. There is a small amount of pelvic ascites. There is diffuse fatty stranding in the pelvis. 4. Subcutaneous fatty stranding suggestive of anasarca. 5. Fat-containing left inguinal hernia. Electronically Signed: Gerardo Villegas MD at 16:32 EST , Service support , CC: Geraldine Hanks; OUT OF TOWN DOCTOR Software Developer Mid Level: Signed CBC-COMPLETE BLOOD CNT Collected: 11/05/2018 Status: F Source: [place] NO DIFF 12:50 PM [facility] REPOSITORY TYPE CODE TESTS RESULT OUT OF RANGE REFERENCE UNITS LAB L100.1000 4.4-11.0 K/mm3 Normal WBC 8.6 LAB L100.1200 4.6-6.2 M/mm3 Low RBC 3.61 LAB L100.1300 13.0-16.5 g/dl Low HGB 10.5 LAB L100.1400 40-54 % Low HCT 33.8 LAB L100.1500 80-94 fL Normal MCV 93.6 LAB L100.1600 27.0-32.0 pg Normal MCH 29.1 LAB L100.1700 32-36 g/gl Low MCHC 31.1 LAB L100.1810 11.6-14.6 % High RDW CV 17.2 LAB L100.1820 35.1-43.9 fl High RDW SD 59.0 LAB L100.1900 150-450 K/mm3 Normal PLT 166 LAB L100.2000 6.2-12.0 fl Normal MPV 9.6 Performed By: #### L100.0500 #### [facility] [address] [place], [place], [address] PROTHROMBIN TIME W/INR Collected: 11/05/2018 Status: F Source: [place] 12:50 PM [facility] REPOSITORY TYPE CODE TESTS RESULT OUT OF RANGE REFERENCE UNITS LAB L300.4150 11.7-14.9 SECONDS High PROTIME 17.0 LAB L300.4200 Normal INR 1.4 Performed By: #### L300.3900 #### [facility] [address] [address] [place], [address] BASIC METABOLIC Collected: 11/05/2018 Status: F Source: [place] PROFILE (BMP) 12:50 PM [facility] REPOSITORY TYPE CODE TESTS RESULT OUT OF RANGE REFERENCE UNITS LAB L501.0100 74-106 mg/dL High GLU 275 Result Comment: Glucose result greater than or equal to 200 mg/dL suggests DIABETES MELLITUS per A.D.A. criteria. Please note revised GLUCOSE reference range effective 2017. LAB L501.1000 7-18 mg/dL High BUN 46 LAB L501.1100 0.70-1.30 mg/dL High CREAT,SERUM 1.36 Result Comment: The validity of the calculated GFR AND GFRAA in patients over 70 years has not been determined. Clinical correlation is essential. LAB L501.1110 >60 mL/min Low EST GFR 56 Result Comment: Non- GFR Calc LAB L501.1115 >60 mL/min Normal EST GFR - AA 68 Result Comment: GFR Calc LAB L501.1255 ml/min Normal Estimated CRCL 56.32 LAB L501.1300 10-20 RATIO High BUN/CRE 33.8 LAB L501.2200 8.5-10 mg/dL Low .1 CA 8.0 LAB L501.5300 136-14 mmol/L Normal 5 NA 136 LAB L501.5600 3.5-5. mmol/L Normal 1 K 3.5 LAB L501.5900 98-107 mmol/L Normal CL 103 LAB L501.6100 21.0-3 mmol/L Normal 2.0 CO2 26.0 LAB L501.6200 5-15 Normal GAP 7 Performed By: #### L500.2500 #### [facility] [address] [place], [address] TYPE AND SCREEN Collected: 11/05/2018 Status: F Source: [place] 12:50 PM [facility] REPOSITORY Order Comment: Reason for Type AND Screen/Red Cells: SURGERY Type of Surgery: FRACTURED HIP TYPE CODE TESTS RESULT OUT OF RANGE REFERENCE UNITS LAB B10.0800 A Normal BLOOD TYPE GEL POSITIVE LAB B100.4000 Normal Antibody NEGATIVE Screen Performed By: #### B101.7450 #### [facility] [address] [place], [address] PHOSPHORUS Collected: 11/05/2018 Status: F Source: [place] 12:50 PM [facility] REPOSITORY TYPE CODE TESTS RESULT OUT OF RANGE REFERENCE UNITS LAB L501.2300 2.5-4.9 mg/dL Low PHOS 2.2 Performed By: #### L501.2300, L501.5200 #### [facility] [address] [place], [address] MAGNESIUM Collected: 11/05/2018 Status: F Source: [place] 12:50 PM [facility] REPOSITORY TYPE CODE TESTS RESULT OUT OF RANGE REFERENCE UNITS LAB L501.5200 1.6-2.6 mg/dL Normal MG 2.4 Performed By: #### L501.2300, L501.5200 #### [facility] [address] [place], [address] HEMOGLOBIN A1C Collected: 11/05/2018 Status: F Source: [place] 12:50 PM [facility] REPOSITORY TYPE CODE TESTS RESULT OUT OF RANGE REFERENCE UNITS LAB L501.9985 4.2-6.3 % High HGB A1C 7.8 Performed By: #### L501.9985 #### [facility] [address] [place], [address] HIP, UNI W/ PELVIS Observed: 11/05/2018 Status: F Source: [place] 2-3 VIEWS 11:33 AM [facility] REPOSITORY [facility] Imaging Services [address] [place] [address] HIP, UNI W/ Pelvis 2-3 Views MR#: [id number] Acct: [id number] Name: CRISTINEJADA W Rep #: [id number] : 1955 M 63 From: Harry Fair MD PCP: OUT OF TOWN DOCTOR Status: REG ER Study: HIP, UNI W/ Pelvis 2-3 Views Date of Exam: 11/05/18 Exam# [id number] Ordering Dr: Jeremie Li MD STUDY: X-RAY - RIGHT HIP REASON FOR EXAM: Right hip pain, fall. TECHNIQUE: 2 views of the hip. COMPARISON: Radiographs 12/31/2014. FINDINGS: There is calcification of the vas deferens. There is an intertrochanteric right hip fracture. There is advanced right hip arthrosis with subchondral cystic change of the right hip and acetabulum. Normal visualized superior and inferior pubic rami and ischial tuberosities. RAD/HIP, UNI W/ Pelvis 2-3 Views IMPRESSION: Right intertrochanteric hip fracture. Right hip arthrosis. Electronically Signed: Harry Fair MD at 13:23 EST Tel , Service support , CC: Jeremie Li MD; OUT OF TOWN DOCTOR Software Developer Mid Level: Signed 12 LEAD ELECTROCARDIOGRAM Observed: 11/04/2018 Status: F Source: [place] 5:30 PM [facility] REPOSITORY [facility] Cardiovascular Services [address] [place] [address] 12 Lead EKG 11/03/18 0533 MR#: [id number] Acct: [id number] Name: JADA COLUNGA Rep #: [id number] : 1955 63 From: Faisal Rg MD Attending Dr: Leidy Parrish MD Status: DIS IN Ordering Dr: Gumaro Ott MD Date: 11/03/18 Location: [facility] Sex: M C Admitted: 10/28/18 Test Reason : AM EKG Blood Pressure : / mmHG Vent. Rate : 060 BPM Atrial Rate : 060 BPM P-R Int : 264 ms QRS Dur : 170 ms QT Int : 496 ms P-R-T Axes : 060 256 057 degrees QTc Int : 496 ms Sinus rhythm with 1st degree A-V block Right bundle branch block Septal infarct , age undetermined Abnormal ECG When compared with ECG of 28-OCT-2018 00:50, No significant change was found Confirmed by FAISAL RG MD ([id number]), senior editor MATHIEU KOENIG ([id number]) on 11/04/2018 5:30:16 PM Referred By: GAMAL Confirmed By:FAISAL RG MD 11/04/18 1730 Date Faisal Rg MD CC: Leidy Parrish MD; OUT OF TOWN DOCTOR; Gumaro Ott MD Signed DISCHARGE SUMMARY Observed: 11/03/2018 Status: F Source: [place] 3:49 PM [facility] REPOSITORY [facility] Medical Records Department [address] [place] [address] [place] [address] Discharge Summary 11/03/18 1528 MR#: [id number] Acct: [id number] Name: JADA COLUNGA Rep #: [id number] : 1955 63 From: Antonio ONTIVEROS PCP: OUT OF TOWN DOCTOR Status: ADM IN Y Location: [facility] [id number] <Antonio Ham - Last Filed: 11/03/18 15:33> Discharge Date and Diagnosis - Problem List Patient Problems: Active and Suspected Problems Acute kidney injury (Acute) Chest pain (Acute) Shortness of breath (Acute) Abnormal cardiac enzyme level (Acute) Anemia (Acute) Date of Admission: 10/27/18 Date of Discharge: 11/03/18 - Primary Discharge Diagnosis Active and Suspected Problems Chest pain with elevated troponin Acute on chronic heart failure with intermediate ejection fraction Acute kidney injury secondary to Lasix administration Hypertension Ischemic cardiomyopathy AICD in place Urinary retention Hyperlipidemia Type 2 diabetes with hypoglycemia Anxiety and depression CAD with prior stents and prior CABG Obstructive sleep apnea History of CVA History of GI bleed secondary to ulcers with chronic anemia - Secondary Discharge Diagnosis Chronic Problems Cellulitis of right heel (Chronic) S/P CABG (coronary artery bypass graft) (Chronic) S/P PTCA (percutaneous transluminal coronary angioplasty) (Chronic) Cardiomyopathy (Chronic) ICD (implantable cardioverter-defibrillator) in place (Chronic) mediport placement (Chronic) Hyperlipidemia (Chronic) DM type 2 (diabetes mellitus, type 2) (Chronic) Chronic CHF (congestive heart failure) (Chronic) ef=25% as of 04/04 Carotid artery stenosis (Chronic) R CEA CAD (coronary artery disease) (Chronic) extensive disease multiple stents Hx of CABG (Chronic) hx epidural abscess (Chronic) Obesity (Chronic) Benign hypertension (Chronic) Hospital Course and Treatment Imaging Results: RAD/Chest 1 View (Portable) IMPRESSION: No acute cardiopulmonary process. US/Abdomen Limited IMPRESSION: Hepatomegaly and lobular hepatic contour. Mild cirrhosis not excluded. Status post cholecystectomy. Pancreas is obscured. Small right pleural effusion. Consultations Cardiology - [facility] 10/28/18 05:19 Consult: Onc/Wound/program engineer Routine Comment: pressure injuries to bilateral heels Operations: None Procedures: Stress test Summary of Care Provided: Hospital course: The patient is a 63 year old M with extensive past medical history as above who presented to the emergency room with increased left-sided chest pain and shortness of breath and lower extremity edema. He had recently been [facility] with a CHF exacerbation which led to need for dialysis. He also recently had an EGD which demonstrated ulcers. He had a negative EKG, elevated troponin, evidence of congestive heart failure. He was admitted to the PCU and started on IV Lasix and cardiology was consulted. His shortness of breath improved however his renal function did not tolerate the Lasix therapy. He appeared to have some urinary retention and was started on Flomax while here. He also had worsening of chronic anemia and was placed on a Protonix drip given his history of GI bleeding, and his aspirin was decreased to 81 mg from full strength. Protonix was transitioned to p.o. twice daily. He did receive 2 units of packed red blood cells while here and his hemoglobin has remained stable since. With his indeterminate troponins and ongoing chest pain cardiology desired to perform heart catheterization however his renal function continued to decline. Nephrology was consulted and adjusted his Lasix dose. Eventually his renal function stabilized and began to improve. Cardiology decided to pursue a stress test in lieu of heart catheterization. The stress test was negative and cardiology did not feel that any further workup was indicated at this time. An echo was not obtained this admission as he had one 1 month prior. He was discharged home in stable condition and did not desire any home health care services. He was prescribed daily Lasix, Flomax, Protonix. He also experienced hypoglycemia with his home Lantus dose and so this was held while here in exchange for sliding scale. He remained persistently in the 200s with his blood sugar so at discharge he will go back on Lantus but at a much lower dose. He will need this followed up with his with his PCP as well as for his other chronic medical conditions. He will need to follow-up with cardiology in 2 weeks, he will also need to follow-up with nephrology in 2 weeks. He will need to have an outpatient CBC and BMP to follow his anemia and his kidney function in 5 days. He will need to maintain his previously scheduled appointments with his surgeons that took care of him at [facility] as well. This patient was seen by Antonio Ham PA-C under the supervision of Doctor Parrish. [] Patient Problems: Active and Suspected Problems Acute kidney injury (Acute) Chest pain (Acute) Shortness of breath (Acute) Abnormal cardiac enzyme level (Acute) Anemia (Acute) - Physical Exam General: Alert, Oriented x3, Cooperative HEENT: Atraumatic, PERRLA, EOMI, Normocephalic Neck: Supple, No JVD, Negative Carotid Bruits Lungs: Clear to auscultation, Normal air movement Cardiovascular: Regular rate, No murmurs Abdomen: Bowel Sounds Present, Soft, Non Tender Extremities: No edema, Capillary Refill Less than 3 Seconds Skin: No rashes, No breakdown Musculoskeletal: No Tenderness to Palpation of Joints or Extremities Neurological: Cranial nerves II-XII grossly intact Psych/Mental Status: Normal Affect, Appropriate Vital Signs Temp Pulse Resp BP Pulse Ox 98.1 F 65 16 128/72 H 93 11/03/18 09:54 11/03/18 11:33 11/03/18 09:54 11/03/18 09:54 11/03/18 14:00 Oxygen Flow Rate (L/min) 3 Oxygen Delivery Method Room Air Weight: 262 lb 12.656 oz Body Mass Index (BMI) 36.7 Finger Stick Blood Glucose 42 Intake and Output for Last 24 Hours Intake Total 960 / 960 720 / 720 120 / 120 Output Total 875 / 875 1050 / 1050 850 / 850 Balance 85 / 85 -330 / -330 -730 / -730 Laboratory Tests Past 24 Hrs POC Glucose POC Glucose 213 H 180 H 225 H POC Glucose 230 H Discharge Diet: Low fat/ Low Cholesterol, 1800 Calorie Control Diet, 2000 mg Sodium Diet Discharge Activity: Return to Normal Activity Home Medications: Medications to take at Discharge Carvedilol [Coreg (Beta Bridgett)] 25 mg PO BID 08/11/15 Isosorbide Mononitrate [Imdur] 30 mg PO BID 03/05/16 Tizanidine HCl 8 mg PO TID PRN 03/05/16 Amlodipine [Norvasc] 10 mg PO DAILY 10/13/18 Atorvastatin Calcium [Lipitor] 80 mg PO QHS 10/13/18 Duloxetine HCl 30 mg PO DAILY 10/13/18 Ferrous Sulfate [Ferosul] 325 mg PO QODAY 10/13/18 Gabapentin 600 mg PO TID 10/13/18 Hydroxyzine HCl 25 mg PO TID PRN 10/13/18 Melatonin 20 mg PO QHS PRN 10/13/18 Sertraline HCl 100 mg PO DAILY 10/13/18 hydrALAZINE [Apresoline] 25 mg PO TID 10/13/18 Aspirin [Aspirin, Baby] 81 mg PO DAILY@0800 tab.chew 11/03/18 Furosemide [Lasix] 40 mg PO DAILY #30 tablet 11/03/18 Insulin Glargine,Hum.rec.anlog [Basaglar Kwikpen U-100] 10 unit SC QHS #1 pen 11/03/18 Pantoprazole Sodium [Protonix] 40 mg PO BID #60 tablet 11/03/18 Tamsulosin HCl [Flomax] 0.4 mg PO DAILY@0830 #30 capsule 11/03/18 Following Prescrptions Were Given to Patient: Furosemide [Lasix] 40 mg PO DAILY #30 tablet Pantoprazole Sodium [Protonix] 40 mg PO BID #60 tablet Tamsulosin HCl [Flomax] 0.4 mg PO DAILY@0830 #30 capsule Other Amb Orders: Basic Metabolic Profile (BMP) Time Frame: 5 Days, Location: Laboratory CBC-Complete Blood Cnt No Diff Time Frame: 5 Days, Location: Laboratory Primary Care Physician: [facility] Doctor,Out of [Primary Care Provider] - Please follow up with your Primary Care Physician in: 1-2 weeks Please Follow Up With: Gumaro Ott MD When: 2 weeks Please Follow Up With: Cesilia surgeon - concerning ulcers. When: As previously directed Please Follow Up With: Syed Neville MD When: 2 weeks Disposition: Home Minutes spent on discharge:: 35 Patient Condition:: Stable Medical Necessity - Tobacco Use Smoking Status: Never smoker Meaningful Use Info Meaningful Use Diagnoses (Choose all that apply): CHF - CHF MARGARET/ARB ordered at discharge?: No Reason MARGARET/ARB not ordered?: Worsening renal disease Documented LVEF (%): 45 <Leidy Parrish - Last Filed: 11/03/18 15:48> Discharge Date and Diagnosis - Primary Discharge Diagnosis Active and Suspected Problems Acute kidney injury (Acute) Chest pain (Acute) Shortness of breath (Acute) Abnormal cardiac enzyme level (Acute) Anemia (Acute) - Secondary Discharge Diagnosis Chronic Problems Cellulitis of right heel (Chronic) S/P CABG (coronary artery bypass graft) (Chronic) S/P PTCA (percutaneous transluminal coronary angioplasty) (Chronic) Cardiomyopathy (Chronic) ICD (implantable cardioverter-defibrillator) in place (Chronic) mediport placement (Chronic) Hyperlipidemia (Chronic) DM type 2 (diabetes mellitus, type 2) (Chronic) Chronic CHF (congestive heart failure) (Chronic) ef=25% as of 04/04 Carotid artery stenosis (Chronic) R CEA CAD (coronary artery disease) (Chronic) extensive disease multiple stents Hx of CABG (Chronic) hx epidural abscess (Chronic) Obesity (Chronic) Benign hypertension (Chronic) Hospital Course and Treatment Consultations 10/28/18 05:19 Consult: Onc/Wound/program engineer Routine Comment: pressure injuries to bilateral heels Summary of Care Provided: This patient was seen in conjunction with Antonio Ham PA-C . I have independently interviewed and examined the patient and reviewed pertinent historical, laboratory, and other data. Please refer to Antonio Ham PA-C note for details of this patient's presentation, findings, and recommendations. I have reviewed Antonio Ham PA-C note and concur with documented findings. In brief, patient is he patient is a 63 year old M with extensive medical past history admitted with progressive shortness of breath and chest pain. Patient admitted to a monitored bed for subsequent evaluation Patient was seen and examined on the day of his discharge instructions reviewed with him. Hospital course as elicited above by Antonio Ham - Physical Exam Vital Signs Temp Pulse Resp BP Pulse Ox 97.6 F L 64 20 H 113/92 H 90 11/03/18 15:31 11/03/18 15:31 11/03/18 15:31 11/03/18 15:31 11/03/18 15:42 Oxygen Flow Rate (L/min) 3 Oxygen Delivery Method Room Air Weight: 119.2 kg Body Mass Index (BMI) 36.7 Finger Stick Blood Glucose 42 Intake and Output for Last 24 Hours Intake Total 960 / 960 720 / 720 120 / 120 Output Total 875 / 875 1050 / 1050 850 / 850 Balance 85 / 85 -330 / -330 -730 / -730 Laboratory Tests Past 24 Hrs POC Glucose POC Glucose 213 H 180 H 225 H POC Glucose 230 H Code Visit Inpatient E AND M: [id number] Disch Hosp 11/03/18 1538 <Electronically signed by Antonio ONTIVEROS> Date Antonio ONTIVEROS 11/03/18 1549<Electronically signed by Leidy Parrish MD> Cosigner Signature (if applicable): Date Leidy Parrish MD CC: RAMA Ham; Leidy Parrish MD; OUT OF [facility] DOCTOR Signed DISCHARGE INSTRUCTION Observed: 11/03/2018 Status: F Source: [place] 3:28 PM [facility] REPOSITORY [facility] Medical Records Department [address] [place] [id number] Instructions for Home/Discharge Instructions 11/03/18 1524 MR#: [id number] Acct: [id number] Name: JADA COLUNGA Rep #: [id number] : 1955 63 From: Antonio ONTIVEROS PCP: OUT OF TOWN DOCTOR Status: ADM IN - Discharge Diagnoses Current Active Problems: Current Active and Chronic Problems Acute kidney injury (Acute) Chest pain (Acute) Shortness of breath (Acute) Abnormal cardiac enzyme level (Acute) S/P CABG (coronary artery bypass graft) (Chronic) Anemia (Acute) You will use the following diet at home:: Calorie/Carbohydrate Controlled (specify 1200, 1400, etc) - 1800 caitlyn / day, Cardiac Your food should be the consistency of: Regular Your liquids should be the consistency of: Regular/Thin Discharge Activity: Return to Normal Activity Allergies/Adverse Reactions: Allergies metoclopramide HCl [From Reglan] Adverse Reaction (Verified 10/13/18 12:27) goofy, anxious, elevated BP ondansetron HCl [From Zofran] Adverse Reaction (Verified 10/13/18 12:27) goofy, anxious, elevated BP Jlsjrvb-Ofy-Knh Reductase Inhibitor Adverse Reaction (Verified 10/13/18 16:05) rhabdomyolosis Medications to take at Discharge Carvedilol [Coreg (Beta Bridgett)] 25 mg PO BID 08/11/15 Isosorbide Mononitrate [Imdur] 30 mg PO BID 03/05/16 Tizanidine HCl 8 mg PO TID PRN 03/05/16 Amlodipine [Norvasc] 10 mg PO DAILY 10/13/18 Atorvastatin Calcium [Lipitor] 80 mg PO QHS 10/13/18 Duloxetine HCl 30 mg PO DAILY 10/13/18 Ferrous Sulfate [Ferosul] 325 mg PO QODAY 10/13/18 Gabapentin 600 mg PO TID 10/13/18 Hydroxyzine HCl 25 mg PO TID PRN 10/13/18 Melatonin 20 mg PO QHS PRN 10/13/18 Sertraline HCl 100 mg PO DAILY 10/13/18 hydrALAZINE [Apresoline] 25 mg PO TID 10/13/18 Aspirin [Aspirin, Baby] 81 mg PO DAILY@0800 tab.chew 11/03/18 Furosemide [Lasix] 40 mg PO DAILY #30 tablet 11/03/18 Insulin Glargine,Hum.rec.anlog [Basaglar Kwikpen U-100] 10 unit SC QHS #1 pen 11/03/18 Pantoprazole Sodium [Protonix] 40 mg PO BID #60 tablet 11/03/18 Tamsulosin HCl [Flomax] 0.4 mg PO DAILY@0830 #30 capsule 11/03/18 The following prescriptions were given: Furosemide [Lasix] 40 mg PO DAILY #30 tablet Pantoprazole Sodium [Protonix] 40 mg PO BID #60 tablet Tamsulosin HCl [Flomax] 0.4 mg PO DAILY@0830 #30 capsule Orders to be completed after discharge: Basic Metabolic Profile (BMP) Time Frame: 5 Days, Location: Laboratory CBC-Complete Blood Cnt No Diff Time Frame: 5 Days, Location: Laboratory Primary Care Physician: [facility] Doctor,Out of [Primary Care Provider] - Please follow up with your Primary Care Physician in: 1-2 weeks Test Results: Test results from this visit will be discussed in further detail at your follow-up appointment, if applicable. Please Follow Up With: Gumaro Ott MD When: 2 weeks Please Follow Up With: Cesilia surgeon - concerning ulcers. When: As previously directed Please Follow Up With: Syed Neville MD When: 2 weeks Proposed Discharge Date: 11/03/18 11/03/18 1528 <Electronically signed by Antonio ONTIVEROS> Date Antonio ONTIVEROS CC: Charles Holly M.D.; OUT OF TOWN DOCTOR; Gumaro Ott MD Signed STRESS REPORT Observed: 11/03/2018 Status: F Source: [place] 12:52 PM [facility] REPOSITORY [facility] Cardiovascular Services [address] [place] [address] MR#: [id number] Acct: [id number] Name: JADA COLUNGA Rep #: [id number] : 1955 63 From: Faisal Rg MD Primary Care: OUT OF TOWN DOCTOR Status: ADM IN Ordering Dr: Adams: Kenyon C Stress Test Report Pharmacologic myocardial perfusion stress test. 63-year-old man with a history of coronary artery disease status post coronary bypass surgery and ICD implantation. Medications: Norvasc, aspirin, Coreg, Lipitor, Lasix. Stress protocol: Resting EKG demonstrates normal sinus rhythm with a right bundle branch block patent noted. Rate of 63 bpm is noted resting blood pressure 134/80 mmHg. 0.4 mg of regadenoson was infused per usual protocol followed by rapid intravenous saline flush injection continuous EKG monitoring was performed. The patient maintained sinus rhythm throughout the recording. The maximum heart rate attained was 65 bpm which was 41% of maximum predicted heart rate. Patient maintained sinus rhythm throughout the recording. At rest there were no ST or T wave changes noted to suggest abnormal flow reserve at peak infusion nonspecific ST-T wave changes were noted we did not suggest abnormal flow reserve. The resting blood pressure is 134/80 with a final blood pressure 124/72. Myocardial perfusion protocol. 14.8 mCi of technetium 99m sestamibi was injected at rest. 0.4 mg of regadenoson was infused per usual protocol peak infusion 45.0 mCi of technetium 99m sestamibi was injected stress images were obtained stress and rest images were reconstructed and compared in the short axis vertical long horizontal long axis. Gated images were also obtained Perfusion SPECT analysis: Review of the images demonstrate a normal cardiac silhouette size. The septum appears to be well perfused and the inferior wall appears to be largely well perfused. The anterolateral wall also appears to be well perfused in the inferolateral wall as well. There is a large defect involving the mid anterior wall extending to the apex in the anterior apex. This is present on the stress images. The resting images demonstrate minimal improvement at the edges suggestive of mild kaur-infarct ischemia. No large areas of ischemia are noted. Gated SPECT analysis: The gated ejection fraction is noted to be 38% with a dilated cardiomyopathy and severely hypokinetic anterior wall. Conclusion 1 Ischemic cardiomyopathy. Extensive previous anterior and anterior apical infarct with minimal kaur-infarct ischemia. 11/03/18 1252 <Electronically signed by Faisal Rg MD> Date Faisal Rg MD CC: Leidy Parrish MD; OUT OF TOWN DOCTOR Date Dictated: 11/03/18 1249 Date Transcribed: 11/03/18 124 Software Developer Mid Level: [place] Signed BEDSIDE GLUCOSE Collected: 11/03/2018 Status: F Source: [place] 10:40 AM [facility] REPOSITORY TYPE CODE TESTS RESULT OUT OF REFERENCE UNITS RANGE LAB L501.080 70-110 mg/dL High BEDSIDE GLU 213 Result Comment: MANAGEMENT OF PATIENT CARE PER NURSING PROTOCOL Performed By: #### L501.080 #### [facility] Point of Care [address] [place], [place] [address] [address] BEDSIDE GLUCOSE Collected: 11/03/2018 Status: F Source: [place] 4:56 AM [facility] REPOSITORY TYPE CODE TESTS RESULT OUT OF REFERENCE UNITS RANGE LAB L501.080 70-110 mg/dL High BEDSIDE GLU 180 Result Comment: MANAGEMENT OF PATIENT CARE PER NURSING PROTOCOL Performed By: #### L501.080 #### [facility] Point of Care [address] [place], [place] [address] CBC W/DIFF, AUTOMATED Collected: 11/03/2018 Status: F Source: [place] 4:10 AM [facility] REPOSITORY TYPE CODE TESTS RESULT OUT OF RANGE REFERENCE UNITS LAB L100.1000 4.4-11.0 K/mm3 Normal WBC 7.7 LAB L100.1200 4.6-6.2 M/mm3 Low RBC 3.24 LAB L100.1300 13.0-16.5 g/dl Low HGB 9.3 LAB L100.1400 40-54 % Low HCT 30.0 LAB L100.1500 80-94 fL Normal MCV 92.6 LAB L100.1600 27.0-32.0 pg Normal MCH 28.7 LAB L100.1700 32-36 g/gl Low MCHC 31.0 LAB L100.1810 11.6-14.6 % High RDW CV 17.0 LAB L100.1820 35.1-43.9 fl High RDW SD 57.8 LAB L100.1900 150-450 K/mm3 Normal PLT 167 LAB L100.2000 6.2-12.0 fl Normal MPV 9.3 LAB L100.2100 47-70 % Normal NEUT% 69.2 LAB L100.2200 19-41 % Low LY% 9.9 LAB L100.2300 0-10 % High MONO% 10.9 LAB L100.2400 0-5 % High EO% 9.4 LAB L100.2500 0-1 % Normal BASO% 0.5 LAB L100.2550 0.0-0.9 % Normal IM GRAN % 0.100 Result Comment: IG% - Immature Granulocytes (promyelocytes, myelocytes and metamyelocytes) > 1% indicates that a LEFT SHIFT is Present. LAB L100.2620 2.0-7.7 X10 3/uL Normal Absolute Neut 5.4 LAB L100.2720 0.83-4.51 X10 3/ul Low Absolute Lymph 0.77 Performed By: #### L100.0100 #### [facility] [address] [place], [place], [address] BASIC METABOLIC Collected: 11/03/2018 Status: F Source: [place] PROFILE (BMP) 4:10 AM [facility] REPOSITORY TYPE CODE TESTS RESULT OUT OF RANGE REFERENCE UNITS LAB L501.0100 74-106 mg/dL High GLU 172 Result Comment: Fasting Glucose result greater than or equal to 126 mg/dL suggests DIABETES MELLITUS per A.D.A. criteria. Please note revised GLUCOSE reference range effective 2017. LAB L501.1000 7-18 mg/dL High BUN 64 LAB L501.1100 0.70-1.30 mg/dL High CREAT,SERUM 1.90 Result Comment: The validity of the calculated GFR AND GFRAA in patients over 70 years has not been determined. Clinical correlation is essential. LAB L501.1110 >60 mL/min Low EST GFR 38 Result Comment: Non- GFR Calc LAB L501.1115 >60 mL/min Low EST GFR - AA 46 Result Comment: GFR Calc LAB L501.1255 ml/min Normal Estimated CRCL 40.31 LAB L501.1300 10-20 RATIO High BUN/CRE 33.7 LAB L501.2200 8.5-10 mg/dL Low .1 CA 8.1 LAB L501.5300 136-14 mmol/L Low 5 NA 135 LAB L501.5600 3.5-5. mmol/L Normal 1 K 3.7 LAB L501.5900 98-107 mmol/L Normal CL 98 LAB L501.6100 21.0-3 mmol/L Normal 2.0 CO2 27.0 LAB L501.6200 5-15 Normal GAP 10 Performed By: #### L500.2500 #### [facility] [address] [place], [address] PROTHROMBIN TIME W/INR Collected: 11/03/2018 Status: F Source: [place] 4:10 AM [facility] REPOSITORY TYPE CODE TESTS RESULT OUT OF RANGE REFERENCE UNITS LAB L300.4150 11.7-14.9 SECONDS High PROTIME 16.9 LAB L300.4200 Normal INR 1.4 Performed By: #### L300.3900, L300.4310 #### [facility] [address] [place], [address] PARTIAL THROMBOPLAST Collected: 11/03/2018 Status: F Source: [place] TIME 4:10 AM [facility] REPOSITORY TYPE CODE TESTS RESULT OUT OF RANGE REFERENCE UNITS LAB L300.4310 24.1-36.2 Seconds Normal PTT 35.0 Performed By: #### L300.3900, L300.4310 #### [facility] [address] [place], [address] BEDSIDE GLUCOSE Collected: 11/02/2018 Status: F Source: [place] 10:56 PM [facility] REPOSITORY TYPE CODE TESTS RESULT OUT OF REFERENCE UNITS RANGE LAB L501.080 70-110 mg/dL High BEDSIDE GLU 225 Result Comment: MANAGEMENT OF PATIENT CARE PER NURSING PROTOCOL Performed By: #### L501.080 #### [facility] Point of Care [address] [place] [address] BEDSIDE GLUCOSE Collected: 11/02/2018 Status: F Source: [place] 4:13 PM [facility] REPOSITORY TYPE CODE TESTS RESULT OUT OF REFERENCE UNITS RANGE LAB L501.080 70-110 mg/dL High BEDSIDE GLU 230 Result Comment: MANAGEMENT OF PATIENT CARE PER NURSING PROTOCOL Performed By: #### L501.080 #### [facility] Point of Care [address] [place] [address] BEDSIDE GLUCOSE Collected: 11/02/2018 Status: F Source: [place] 10:54 AM [facility] REPOSITORY TYPE CODE TESTS RESULT OUT OF REFERENCE UNITS RANGE LAB L501.080 70-110 mg/dL High BEDSIDE GLU 230 Result Comment: MANAGEMENT OF PATIENT CARE PER NURSING PROTOCOL Performed By: #### L501.080 #### [facility] Point of Care [address] [place] [address] BEDSIDE GLUCOSE Collected: 11/02/2018 Status: F Source: [place] 7:04 AM [facility] REPOSITORY TYPE CODE TESTS RESULT OUT OF REFERENCE UNITS RANGE LAB L501.080 70-110 mg/dL High BEDSIDE GLU 139 Result Comment: MANAGEMENT OF PATIENT CARE PER NURSING PROTOCOL Performed By: #### L501.080 #### [facility] Point of Care [address] [place], [place] [address] URINALYSIS, COMPLETE Collected: 11/02/2018 Status: F Source: [place] 5:50 AM [facility] REPOSITORY Order Comment: How was Urine Obtained? CLEAN CATCH TYPE CODE TESTS RESULT OUT OF RANGE REFERENCE UNITS LAB L400.3000 Yellow COLOR Normal Yellow LAB L400.3050 Clear Normal CLARITY Sl. Cloudy LAB L400.3200 Normal mg/dl Normal GLUCOSE, UR Normal LAB L400.3300 Negative mg/dL Normal BILIRUBIN URINE Negative LAB L400.3400 Negative mg/dl Normal KETONE UR Negative LAB L400.3465 1.002-1.030 Normal SP.GR. DIPSTX 1.020 LAB L400.3550 5.0 - 8.0 pH UR Normal 5.0 LAB L400.3600 Negative mg/dl High PROT 30 DIPSTX LAB L400.3700 Normal mg/dl High 1 UROBILI LAB L400.3750 Negative Normal NITRITE UR Negative LAB L400.3780 Negative /ul Normal OCCULT BLOOD-UR Negative LAB L400.3800 Negative /ul High LEUK 25 ESTERASE LAB L400.4050 0-5 /hpf WBC Normal 0-5 SEEN LAB L400.4100 0-5 /hpf 0 Normal RBC-UA SEEN LAB L400.4150 0-5 /hpf SQUAM Normal EPI 0-5 SEEN LAB L400.4300 None Seen /hpf Normal BACTERIA RARE LAB L400.4350 <or=2+ /hpf 0 Normal MUCUS, URINE SEEN LAB L400.4400 0-5 /lpf Normal HYALINE CAST 0-5 SEEN Performed By: #### L400.0001 #### [facility] [address] [place], [place], [id number] CBC W/DIFF, AUTOMATED Collected: 11/02/2018 Status: F Source: [place] 5:05 AM [facility] REPOSITORY TYPE CODE TESTS RESULT OUT OF RANGE REFERENCE UNITS LAB L100.1000 4.4-11.0 K/mm3 Normal WBC 7.9 LAB L100.1200 4.6-6.2 M/mm3 Low RBC 3.14 LAB L100.1300 13.0-16.5 g/dl Low HGB 9.3 LAB L100.1400 40-54 % Low HCT 29.5 LAB L100.1500 80-94 fL Normal MCV 93.9 LAB L100.1600 27.0-32.0 pg Normal MCH 29.6 LAB L100.1700 32-36 g/gl Low MCHC 31.5 LAB L100.1810 11.6-14.6 % High RDW CV 17.1 LAB L100.1820 35.1-43.9 fl High RDW SD 56.6 LAB L100.1900 150-450 K/mm3 Normal PLT 200 LAB L100.2000 6.2-12.0 fl Normal MPV 9.7 LAB L100.2100 47-70 % High NEUT% 70.1 LAB L100.2200 19-41 % Low LY% 11.3 LAB L100.2300 0-10 % High MONO% 10.7 LAB L100.2400 0-5 % High EO% 7.3 LAB L100.2500 0-1 % Normal BASO% 0.5 LAB L100.2550 0.0-0.9 % Normal IM GRAN % 0.100 Result Comment: IG% - Immature Granulocytes (promyelocytes, myelocytes and metamyelocytes) > 1% indicates that a LEFT SHIFT is Present. LAB L100.2620 2.0-7.7 X10 3/uL Normal Absolute Neut 5.5 LAB L100.2720 0.83-4.51 X10 3/ul Normal Absolute Lymph 0.89 Performed By: #### L100.0100 #### [facility] [address] [place], [place], [id number] BASIC METABOLIC Collected: 11/02/2018 Status: F Source: [place] PROFILE ([facility]) 5:05 AM [facility] REPOSITORY TYPE CODE TESTS RESULT OUT OF RANGE REFERENCE UNITS LAB L501.0100 74-106 mg/dL High GLU 146 Result Comment: Fasting Glucose result greater than or equal to 126 mg/dL suggests DIABETES MELLITUS per A.D.A. criteria. Please note revised GLUCOSE reference range effective 2017. LAB L501.1000 7-18 mg/dL High BUN 63 LAB L501.1100 0.70-1.30 mg/dL High CREAT,SERUM 2.10 Result Comment: The validity of the calculated GFR AND GFRAA in patients over 70 years has not been determined. Clinical correlation is essential. LAB L501.1110 >60 mL/min Low EST GFR 34 Result Comment: Non- GFR Calc LAB L501.1115 >60 mL/min Low EST GFR - AA 41 Result Comment: GFR Calc LAB L501.1255 ml/min Normal Estimated CRCL 36.47 LAB L501.1300 10-20 RATIO High BUN/CRE 30.0 LAB L501.2200 8.5-10 mg/dL Low .1 CA 7.9 LAB L501.5300 136-14 mmol/L Low 5 NA 135 LAB L501.5600 3.5-5. mmol/L Normal 1 K 3.8 LAB L501.5900 98-107 mmol/L Normal CL 98 LAB L501.6100 21.0-3 mmol/L Normal 2.0 CO2 26.0 LAB L501.6200 5-15 Normal GAP 11 Performed By: #### L500.2500 #### [facility] [address] [facility] [place], [address] BEDSIDE GLUCOSE Collected: 11/02/2018 Status: F Source: [place] 3:13 AM [facility] REPOSITORY TYPE CODE TESTS RESULT OUT OF REFERENCE UNITS RANGE LAB L501.080 70-110 mg/dL High BEDSIDE GLU 153 Result Comment: MANAGEMENT OF PATIENT CARE PER NURSING PROTOCOL Performed By: #### L501.080 #### [facility] Point of Care [address] [place] [address] BEDSIDE GLUCOSE Collected: 11/01/2018 Status: F Source: [place] 9:23 PM [facility] REPOSITORY TYPE CODE TESTS RESULT OUT OF REFERENCE UNITS RANGE LAB L501.080 70-110 mg/dL High BEDSIDE GLU 200 Result Comment: MANAGEMENT OF PATIENT CARE PER NURSING PROTOCOL Performed By: #### L501.080 #### [facility] Point of Care [address] [place] [address] BEDSIDE GLUCOSE Collected: 11/01/2018 Status: F Source: [place] 4:42 PM [facility] REPOSITORY TYPE CODE TESTS RESULT OUT OF REFERENCE UNITS RANGE LAB L501.080 70-110 mg/dL High BEDSIDE GLU 185 Result Comment: MANAGEMENT OF PATIENT CARE PER NURSING PROTOCOL Performed By: #### L501.080 #### [facility] Point of Care [address] [place] [address] CONSULTATION Observed: 11/01/2018 Status: F Source: [place] 4:12 PM [facility] REPOSITORY [facility] Medical Records Department [address] [place] [address] Consultation 11/01/18 1607 MR#: [id number] Acct: [id number] Name: JADA COLUNGA Rep #: [id number] : 1955 63 From: Syed Neville MD PCP: OUT OF TOWN DOCTOR Status: ADM IN Y Location: [place] [id number] Problem List (1) Acute kidney injury Status: Acute Consultation - Renal PCP/ Referring MD: Requesting physician: [] Primary care physician: Out of Town Doctor - History of Present Illness History of Present Illness: The patient is a 63 year old M medical history of ischemic cardiomyopathy , UT , CHF . Patient has history of recent admission to [facility] for leg infection needed antibiotics . Patient developed AK I from antibiotics . No record available from [facility] . Patient presented with a creatinine 2.2 mg a deciliter . Patient presented this time to the hospital with the chest pain and some shortness of breath . Patient is going to have cardiac cath tomorrow . Patient is not on MARGARET inhibitor . Patient is taking Norvasc , Coreg , hydralazine , isosorbide dinitrate Blood pressures well controlled . No recent MARGARET inhibitor . No NSAIDs used . No IV contrast exposure Review of systems . 12 systems review is negative except for joint pain and some chest pain [] - Allergies Allergies: Allergies metoclopramide HCl [From Reglan] Adverse Reaction (Verified 10/13/18 12:27) goofy, anxious, elevated BP ondansetron HCl [From Zofran] Adverse Reaction (Verified 10/13/18 12:27) goofy, anxious, elevated BP Kzneixg-Xim-Igu Reductase Inhibitor Adverse Reaction (Verified 10/13/18 16:05) rhabdomyolosis - Current Medications Current Medications: Current Medications Amlodipine Besylate (Norvasc) 10 mg PO DAILY [facility] Last Admin: 11/01/18 08:07 Dose: 10 mg Aspirin (Aspirin, Baby) 81 mg PO DAILY@0800 [facility] Last Admin: 11/01/18 08:05 Dose: 81 mg Atorvastatin Calcium (Lipitor) 80 mg PO QHS [facility] Last Admin: 10/31/18 21:30 Dose: 80 mg Carvedilol (Coreg) 25 mg PO BID [facility] Last Admin: 11/01/18 08:06 Dose: 25 mg Dextrose (D50w Syringe) 0 gm IV X1 PRN; Protocol PRN Reason: Hypoglycemia Duloxetine HCl (Cymbalta) 30 mg PO DAILY [facility] Last Admin: 11/01/18 08:06 Dose: 30 mg Ferrous Sulfate (Ferrous Sulfate) 325 mg PO QODAY@0800 [facility] Last Admin: 10/31/18 10:13 Dose: 325 mg Gabapentin (Neurontin) 600 mg PO TID [facility] Last Admin: 11/01/18 13:54 Dose: 600 mg Glucagon () 1 mg IM .X1 PRN PRN Reason: Hypoglycemia Hydralazine HCl (Apresoline) 25 mg PO TID [facility] Last Admin: 11/01/18 13:53 Dose: 25 mg Hydroxyzine Pamoate (Vistaril Pamoate Capsule) 25 mg PO TID PRN PRN PRN Reason: ITCHING/ANXIETY Last Admin: 10/30/18 10:36 Dose: 25 mg Insulin Human Lispro (Humalog Kwikpen (Bkc)) 0 unit SQ ACHS [facility]; Protocol Last Admin: 11/01/18 11:28 Dose: 2 u Isosorbide Mononitrate (Imdur) 30 mg PO BID [facility] Last Admin: 11/01/18 08:06 Dose: 30 mg Magnesium Hydroxide (Milk Of Magnesia) 30 ml PO DAILY PRN PRN Reason: Constipation Melatonin (Melatonin) 20 mg PO QHS PRN PRN Reason: SLEEP Morphine Sulfate () 2 mg IV Q4H PRN PRN PRN Reason: SEVERE PAIN (6-10/10) Nitroglycerin (Nitrostat) 0.4 mg SUBLINGUAL Q5M PRN PRN Reason: CHEST PAIN Nystatin (Mycostatin Powder) 1 applic TOPICAL BID [facility]; Protocol Last Admin: 11/01/18 08:08 Dose: 1 applic Pantoprazole Sodium (Protonix) 40 mg PO BID [facility] Last Admin: 11/01/18 08:07 Dose: 40 mg Promethazine HCl (Phenergan) 6.25 mg IV Q6H PRN PRN PRN Reason: NAUSEA/VOMITING Last Admin: 11/01/18 11:04 Dose: 6.25 mg Sertraline HCl (Zoloft) 100 mg PO DAILY [facility] Last Admin: 11/01/18 08:07 Dose: 100 mg Sodium Chloride () 10 ml IV UD PRN PRN Reason: VAD FLUSH Last Admin: 11/01/18 11:04 Dose: 10 ml Tamsulosin HCl (Flomax) 0.4 mg PO DAILY@0830 [facility] Last Admin: 11/01/18 08:05 Dose: 0.4 mg Tizanidine HCl (Zanaflex) 8 mg PO TID PRN PRN PRN Reason: SPASMS - Past Medical History Past Medical History (Chronic Problems): Chronic Problems Cellulitis of right heel (Chronic) S/P CABG (coronary artery bypass graft) (Chronic) S/P PTCA (percutaneous transluminal coronary angioplasty) (Chronic) Cardiomyopathy (Chronic) ICD (implantable cardioverter-defibrillator) in place (Chronic) mediport placement (Chronic) Hyperlipidemia (Chronic) DM type 2 (diabetes mellitus, type 2) (Chronic) Chronic CHF (congestive heart failure) (Chronic) ef=25% as of 04/04 Carotid artery stenosis (Chronic) R CEA CAD (coronary artery disease) (Chronic) extensive disease multiple stents Hx of CABG (Chronic) hx epidural abscess (Chronic) Obesity (Chronic) Benign hypertension (Chronic) - Past Surgical History Surgical History: appendectomy, cataract, cholecystectomy, coronary bypass surgery - 2004 - [place], herniorrhaphy, tonsillectomy, - - Cardiac stent placement 24 (according to patient), right carotid endarterectomy. - Social History Smoking Status: Never smoker - Family History Maternal History Items: No pertinent history Paternal History Items: Heart Disease - of an UT at age 61 Sibling History Items: No pertinent history Patient Problems: Active and Suspected Problems Acute kidney injury (Acute) Chest pain (Acute) Shortness of breath (Acute) Abnormal cardiac enzyme level (Acute) Anemia (Acute) - Physical Exam General: Alert, Oriented x3 HEENT: Atraumatic Oral: Moist Mucosa Neck: Supple, No JVD, Negative Carotid Bruits Lungs: Clear to auscultation, Normal air movement, No rhonchi Cardiovascular: Regular rate, Regular Rhythm, Normal S1, Normal S2 Abdomen: Bowel Sounds Present, Soft, Non Tender Extremities: No clubbing, No cyanosis, No edema Skin: No rashes Musculoskeletal: No Tenderness to Palpation of Joints or Extremities Lymphatic: No Cervical, Supraclavicular, or Inguinal Adenopathy Neurological: Cranial nerves II-XII grossly intact, Neuro grossly intact Psych/Mental Status: Normal Affect Vital Signs Temp Pulse Resp BP Pulse Ox 99.1 F 66 16 140/84 H 94 11/01/18 13:49 11/01/18 15:14 11/01/18 13:49 11/01/18 13:49 11/01/18 13:49 Oxygen Flow Rate (L/min) 2 Oxygen Delivery Method Room Air Weight: 119.2 kg Body Mass Index (BMI) 36.7 Finger Stick Blood Glucose 42 Intake and Output for Last 24 Hours Intake Total 1901 / 1901 876 / 876 600 / 600 Output Total 625 / 625 425 / 425 525 / 525 Balance 1276 / 1276 451 / 451 75 / 75 Laboratory Tests Past 24 Hrs Hgb 9.4 L Hct 29.9 L Sodium 134 L Potassium 4.1 Chloride 97 L Carbon Dioxide 27.0 Anion Gap 10 POC Glucose POC Glucose 257 H 180 H 173 H POC Glucose 168 H 248 H Assessment/Plan All Active Problems Acute kidney injury (Acute) Chest pain (Acute) Shortness of breath (Acute) Abnormal cardiac enzyme level (Acute) Anemia (Acute) 1-acute kidney injury. Patient has a history of recent acute kidney injury most probably from antibiotics induced ATN. Creatinine during this admission is stable at 2.2. Check UA Patient at risk for worsening kidney function if he would receive IV contrast. Please hold all diuretics, MARGARET inhibitor/ARB before cardiac cath. Please hydrate the patient with normal saline at 75 cc/h 6 hours before to 6 hours after the procedure check renal function in a.m. 2-hypertension: Blood pressure is well controlled. Please avoid MARGARET inhibitor/ARB for now 3-chest pain. Patient might need cardiac cath. Please see above instruction to preserve kidney function. Thank you for the consult. Renal team will continue to follow 11/01/18 1612 <Electronically signed by Syed Neville MD> Date Syed Neville MD Cosigner Signature (if applicable): Date CC: Charles Holly M.D.; OUT OF TOWN DOCTOR; Gumaro Ott MD Signed BEDSIDE GLUCOSE Collected: 11/01/2018 Status: F Source: [facility] 11:26 AM [facility] REPOSITORY TYPE CODE TESTS RESULT OUT OF REFERENCE UNITS RANGE LAB L501.080 70-110 mg/dL High BEDSIDE GLU 257 Result Comment: MANAGEMENT OF PATIENT CARE PER NURSING PROTOCOL Performed By: #### L501.080 #### [facility] Point of [facility] [address] [place] [address] BEDSIDE GLUCOSE Collected: 11/01/2018 Status: F Source: [facility] 7:02 AM [facility] REPOSITORY TYPE CODE TESTS RESULT OUT OF REFERENCE UNITS RANGE LAB L501.080 70-110 mg/dL High BEDSIDE GLU 180 Result Comment: MANAGEMENT OF PATIENT CARE PER NURSING PROTOCOL Performed By: #### L501.080 #### [facility] [address] [place] [address] HH, HEMOGLOBIN AND Collected: 11/01/2018 Status: F Source: [facility] HEMATOCRIT 4:25 AM [facility] REPOSITORY TYPE CODE TESTS RESULT OUT OF RANGE REFERENCE UNITS LAB L100.1300 13.0-16.5 g/dl Low HGB 9.4 LAB L100.1400 40-54 % Low HCT 29.9 Performed By: #### L100.0600 #### [facility] [address] [place], [address] BASIC METABOLIC Collected: 11/01/2018 Status: F Source: [facility] PROFILE (BMP) 4:25 AM [facility] REPOSITORY TYPE CODE TESTS RESULT OUT OF RANGE REFERENCE UNITS LAB L501.0100 74-106 mg/dL High GLU 176 Result Comment: Fasting Glucose result greater than or equal to 126 mg/dL suggests DIABETES MELLITUS per A.D.A. criteria. Please note revised GLUCOSE reference range effective 2017. LAB L501.1000 7-18 mg/dL High BUN 57 LAB L501.1100 0.70-1.30 mg/dL High CREAT,SERUM 2.20 Result Comment: The validity of the calculated GFR AND GFRAA in patients over 70 years has not been determined. Clinical correlation is essential. LAB L501.1110 >60 mL/min Low EST GFR 32 Result Comment: Non- GFR Calc LAB L501.1115 >60 mL/min Low EST GFR - AA 39 Result Comment: GFR Calc LAB L501.1255 ml/min Normal Estimated CRCL 34.81 LAB L501.1300 10-20 RATIO High BUN/CRE 25.9 LAB L501.2200 8.5-10 mg/dL Low .1 CA 8.3 LAB L501.5300 136-14 mmol/L Low 5 NA 134 LAB L501.5600 3.5-5. mmol/L Normal 1 K 4.1 LAB L501.5900 98-107 mmol/L Low CL 97 LAB L501.6100 21.0-3 mmol/L Normal 2.0 CO2 27.0 LAB L501.6200 5-15 Normal GAP 10 Performed By: #### L500.2500 #### [facility] [address] [facility] [place], [place], [address] BEDSIDE GLUCOSE Collected: 11/01/2018 Status: F Source: [facility] 3:25 AM [facility] REPOSITORY TYPE CODE TESTS RESULT OUT OF REFERENCE UNITS RANGE LAB L501.080 70-110 mg/dL High BEDSIDE GLU 173 Result Comment: MANAGEMENT OF PATIENT CARE PER NURSING PROTOCOL Performed By: #### L501.080 #### [facility] [address] [facility] [place], [place] [address] BEDSIDE GLUCOSE Collected: 10/31/2018 Status: F Source: [facility] 9:26 PM [facility] REPOSITORY TYPE CODE TESTS RESULT OUT OF REFERENCE UNITS RANGE LAB L501.080 70-110 mg/dL High BEDSIDE GLU 168 Result Comment: MANAGEMENT OF PATIENT CARE PER NURSING PROTOCOL Performed By: #### L501.080 #### [facility] [address] [place] [address] BEDSIDE GLUCOSE Collected: 10/31/2018 Status: F Source: [facility] 4:24 PM [facility] REPOSITORY TYPE CODE TESTS RESULT OUT OF REFERENCE UNITS RANGE LAB L501.080 70-110 mg/dL High BEDSIDE GLU 248 Result Comment: MANAGEMENT OF PATIENT CARE PER NURSING PROTOCOL Performed By: #### L501.080 #### [facility] [address] [place] [address] BEDSIDE GLUCOSE Collected: 10/31/2018 Status: F Source: [facility] 12:05 PM [facility] REPOSITORY TYPE CODE TESTS RESULT OUT OF REFERENCE UNITS RANGE LAB L501.080 70-110 mg/dL High BEDSIDE GLU 191 Result Comment: MANAGEMENT OF PATIENT CARE PER NURSING PROTOCOL Performed By: #### L501.080 #### [facility] [address] [place] [address] BEDSIDE GLUCOSE Collected: 10/31/2018 Status: F Source: [facility] 6:35 AM [facility] REPOSITORY TYPE CODE TESTS RESULT OUT OF REFERENCE UNITS RANGE LAB L501.080 70-110 mg/dL High BEDSIDE GLU 136 Result Comment: MANAGEMENT OF PATIENT CARE PER NURSING PROTOCOL Performed By: #### L501.080 #### [facility] [address] [place] [address] BASIC METABOLIC Collected: 10/31/2018 Status: F Source: [facility] PROFILE (BMP) 4:05 AM [facility] REPOSITORY TYPE CODE TESTS RESULT OUT OF RANGE REFERENCE UNITS LAB L501.0100 74-106 mg/dL High GLU 111 Result Comment: Fasting Glucose result from 100 to 125 mg/dL suggests IMPAIRED HOMEOSTASIS per A.D.A. criteria. Please note revised GLUCOSE reference range effective 2017. LAB L501.1000 7-18 mg/dL High BUN 52 LAB L501.1100 0.70-1.30 mg/dL High CREAT,SERUM 2.36 Result Comment: The validity of the calculated GFR AND GFRAA in patients over 70 years has not been determined. Clinical correlation is essential. LAB L501.1110 >60 mL/min Low EST GFR 30 Result Comment: Non- GFR Calc LAB L501.1115 >60 mL/min Low EST GFR - AA 36 Result Comment: GFR Calc LAB L501.1255 ml/min Normal Estimated CRCL 32.45 LAB L501.1300 10-20 RATIO High BUN/CRE 22.0 LAB L501.2200 8.5-10 mg/dL Low .1 CA 8.0 LAB L501.5300 136-14 mmol/L Low 5 NA 135 LAB L501.5600 3.5-5. mmol/L Normal 1 K 4.4 LAB L501.5900 98-107 mmol/L Normal CL 99 LAB L501.6100 21.0-3 mmol/L Normal 2.0 CO2 28.0 LAB L501.6200 5-15 Normal GAP 8 Performed By: #### L500.2500 #### [facility] [address] [facility] [place], [address] BEDSIDE GLUCOSE Collected: 10/31/2018 Status: F Source: [facility] 2:14 AM [facility] REPOSITORY TYPE CODE TESTS RESULT OUT OF REFERENCE UNITS RANGE LAB L501.080 70-110 mg/dL High BEDSIDE GLU 111 Result Comment: MANAGEMENT OF PATIENT CARE PER NURSING PROTOCOL Performed By: #### L501.080 #### [facility] [address] [facility] [place] [address] BEDSIDE GLUCOSE Collected: 10/30/2018 Status: F Source: [facility]A 8:39 PM [facility] REPOSITORY TYPE CODE TESTS RESULT OUT OF REFERENCE UNITS RANGE LAB L501.080 70-110 mg/dL High BEDSIDE GLU 143 Result Comment: MANAGEMENT OF PATIENT CARE PER NURSING PROTOCOL Performed By: #### L501.080 #### [facility] [address] [place] [address] BEDSIDE GLUCOSE Collected: 10/30/2018 Status: F Source: [facility]DRA 3:59 PM [facility] REPOSITORY TYPE CODE TESTS RESULT OUT OF REFERENCE UNITS RANGE LAB L501.080 70-110 mg/dL High BEDSIDE GLU 134 Result Comment: MANAGEMENT OF PATIENT CARE PER NURSING PROTOCOL Performed By: #### L501.080 #### [facility] [address] [place] [address] BEDSIDE GLUCOSE Collected: 10/30/2018 Status: F Source: [place] 11:15 AM [facility] REPOSITORY TYPE CODE TESTS RESULT OUT OF RANGE REFERENCE UNITS LAB L501.080 70-110 mg/dL Normal BEDSIDE GLU 86 Result Comment: MANAGEMENT OF PATIENT CARE PER NURSING PROTOCOL Performed By: #### L501.080 #### [facility] [address] [place] [address] 12 LEAD ELECTROCARDIOGRAM Observed: 10/30/2018 Status: F Source: [place] 10:50 AM [facility] REPOSITORY [facility] Cardiovascular Services [address] [place] [address] 12 Lead EKG 10/28/18 0050 MR#: [id number] Acct: [id number] Name: JADA COLUNGA Prerna Rep #: [id number] : 1955 63 From: Gumaro Ott MD Attending Dr: Nikia Ramirez Status: ADM IN Ordering Dr: Gumaro Kemp MD Date: 10/28/18 Location: [facility] Sex: M C Admitted: 10/28/18 Test Reason : CP ADMISSION Blood Pressure : / mmHG Vent. Rate : 086 BPM Atrial Rate : 086 BPM P-R Int : 224 ms QRS Dur : 164 ms QT Int : 430 ms P-R-T Axes : 059 258 066 degrees QTc Int : 514 ms Sinus rhythm with 1st degree A-V block Right bundle branch block Abnormal ECG Confirmed by NAMRATA KEY, GUMARO ([id number]), senior editor MATHIEU KOENIG ([id number]) on 10/30/2018 10:50:20 AM Referred By: HERMINIO Confirmed By:GUMARO OTT MD 10/30/18 1050 Date Gumaro Ott MD CC: Nikia Ramirez; OUT OF TOWN DOCTOR; Gumaro Kemp MD Signed BEDSIDE GLUCOSE Collected: 10/30/2018 Status: F Source: [facility] 6:45 AM [facility] REPOSITORY TYPE CODE TESTS RESULT OUT OF RANGE REFERENCE UNITS LAB L501.080 70-110 mg/dL Normal BEDSIDE GLU 96 Result Comment: MANAGEMENT OF PATIENT CARE PER NURSING PROTOCOL Performed By: #### L501.080 #### [facility] [address] [place], [place] [address] CBC-COMPLETE BLOOD CNT Collected: 10/30/2018 Status: F Source: [facility] NO DIFF 4:45 AM [facility] REPOSITORY TYPE CODE TESTS RESULT OUT OF RANGE REFERENCE UNITS LAB L100.1000 4.4-11.0 K/mm3 Normal WBC 11.0 LAB L100.1200 4.6-6.2 M/mm3 Low RBC 3.29 LAB L100.1300 13.0-16.5 g/dl Low HGB 9.5 LAB L100.1400 40-54 % Low HCT 30.4 LAB L100.1500 80-94 fL Normal MCV 92.4 LAB L100.1600 27.0-32.0 pg Normal MCH 28.9 LAB L100.1700 32-36 g/gl Low MCHC 31.3 LAB L100.1810 11.6-14.6 % High RDW CV 17.8 LAB L100.1820 35.1-43.9 fl High RDW SD 60.2 LAB L100.1900 150-450 K/mm3 Normal PLT 192 LAB L100.2000 6.2-12.0 fl Normal MPV 9.6 Performed By: #### L100.0500 #### [facility] [address] [place], [place], [id number] BASIC METABOLIC Collected: 10/30/2018 Status: F Source: [facility] PROFILE (BMP) 4:45 AM [facility] REPOSITORY TYPE CODE TESTS RESULT OUT OF RANGE REFERENCE UNITS LAB L501.0100 74-106 mg/dL Normal GLU 88 Result Comment: Please note revised GLUCOSE reference range effective 2017. LAB L501.1000 7-18 mg/dL High BUN 46 LAB L501.1100 0.70-1.30 mg/dL High CREAT,SERUM 2.22 Result Comment: The validity of the calculated GFR AND GFRAA in patients over 70 years has not been determined. Clinical correlation is essential. LAB L501.1110 >60 mL/min Low EST GFR 32 Result Comment: Non- GFR Calc LAB L501.1115 >60 mL/min Low EST GFR - AA 39 Result Comment: GFR Calc LAB L501.1255 ml/min Normal Estimated CRCL 34.50 LAB L501.1300 10-20 RATIO High BUN/CRE 20.7 LAB L501.2200 8.5-10 mg/dL Low .1 CA 8.2 LAB L501.5300 136-14 mmol/L Normal 5 NA 136 LAB L501.5600 3.5-5. mmol/L Normal 1 K 4.2 LAB L501.5900 98-107 mmol/L Normal CL 100 LAB L501.6100 21.0-3 mmol/L Normal 2.0 CO2 24.0 LAB L501.6200 5-15 Normal GAP 12 Performed By: #### L500.2500 #### [facility] [address] [place], [address] T4 FREE DIRECT Collected: 10/30/2018 Status: F Source: [facility] 4:45 AM [facility] REPOSITORY Order Comment: Comments: ok to add on TYPE CODE TESTS RESULT OUT OF RANGE REFERENCE UNITS LAB L506.0400 0.76-1.46 ng/dL Normal T4 FREE 1.17 DIRECT Performed By: #### L506.0400 #### [facility] [address] [place], [address] BEDSIDE GLUCOSE Collected: 10/30/2018 Status: F Source: [place] 3:01 AM [facility] REPOSITORY TYPE CODE TESTS RESULT OUT OF RANGE REFERENCE UNITS LAB L501.080 70-110 mg/dL Normal BEDSIDE GLU 101 Result Comment: MANAGEMENT OF PATIENT CARE PER NURSING PROTOCOL Performed By: #### L501.080 #### [facility] [address] [place] [address] BEDSIDE GLUCOSE Collected: 10/30/2018 Status: F Source: [place] 1:17 AM [facility] REPOSITORY TYPE CODE TESTS RESULT OUT OF REFERENCE UNITS RANGE LAB L501.080 70-110 mg/dL Low BEDSIDE GLU 65 Result Comment: MANAGEMENT OF PATIENT CARE PER NURSING PROTOCOL Performed By: #### L501.080 #### [facility] [address] [place] [address] BEDSIDE GLUCOSE Collected: 10/30/2018 Status: F Source: [place] 12:18 AM [facility] REPOSITORY TYPE CODE TESTS RESULT OUT OF REFERENCE UNITS RANGE LAB L501.080 70-110 mg/dL Low BEDSIDE GLU 67 Result Comment: MANAGEMENT OF PATIENT CARE PER NURSING PROTOCOL Performed By: #### L501.080 #### [facility] [address] [place] [address] BEDSIDE GLUCOSE Collected: 10/29/2018 Status: F Source: [place] 11:52 PM [facility] REPOSITORY TYPE CODE TESTS RESULT OUT OF REFERENCE UNITS RANGE LAB L501.080 70-110 mg/dL Low BEDSIDE GLU 59 Result Comment: MANAGEMENT OF PATIENT CARE PER NURSING PROTOCOL Performed By: #### L501.080 #### [facility] [address] [place] [address] BEDSIDE GLUCOSE Collected: 10/29/2018 Status: F Source: [place] 9:40 PM [facility] REPOSITORY TYPE CODE TESTS RESULT OUT OF REFERENCE UNITS RANGE LAB L501.080 70-110 mg/dL Low BEDSIDE GLU 61 Result Comment: MANAGEMENT OF PATIENT CARE PER NURSING PROTOCOL Performed By: #### L501.080 #### [facility] [address] [place] [address] BEDSIDE GLUCOSE Collected: 10/29/2018 Status: F Source: [facility] 5:02 PM [facility] REPOSITORY TYPE CODE TESTS RESULT OUT OF RANGE REFERENCE UNITS LAB L501.080 70-110 mg/dL Normal BEDSIDE GLU 105 Result Comment: MANAGEMENT OF PATIENT CARE PER NURSING PROTOCOL Performed By: #### L501.080 #### [facility] [address] [place] [address] 12 LEAD ELECTROCARDIOGRAM Observed: 10/29/2018 Status: F Source: [facility] 3:23 PM [facility] REPOSITORY [facility] Cardiovascular Services [address] [place] [address] 12 Lead EKG 10/27/182222 MR#: [id number] Acct: [id number] Name: FERNYSULEIMANJADA Velasquez Rep #: [id number] : 1955 62 From: Gumaro Ott MD Attending Dr: Nikia Ramirez Status: ADM IN Ordering Dr: Justin Woody MD Date: 10/27/18 Location: [facility] Sex: M C Admitted: 10/28/18 Test Reason : CP Blood Pressure : / mmHG Vent. Rate : 091 BPM Atrial Rate : 091 BPM P-R Int : 222 ms QRS Dur : 162 ms QT Int : 418 ms P-R-T Axes : 078 251 058 degrees QTc Int : 514 ms Sinus rhythm with 1st degree A-V block Right bundle branch block Abnormal ECG Confirmed by NAMRATA KEY, GUMARO ([id number]), senior editor MATHIEU KOENIG ([id number]) on 10/29/2018 3:22:59 PM Referred By: Confirmed By:GUMARO OTT MD 10/29/18 1523 Date Gumaro Ott MD CC: Nikia Ramirez; Justin Woody MD; OUT OF TOWN DOCTOR Signed CONSULTATION Observed: 10/29/2018 Status: F Source: [facility]DR[place] 2:08 PM [facility] REPOSITORY [facility] Medical Records Department [address] [place] [address] Consultation 10/28/18 0952 MR#: [id number] Acct: [id number] Name: JADA COLUNGA Rep #: [id number] : 1955 63 From: Gumaro Ott MD PCP: OUT OF TOWN DOCTOR Status: ADM IN Y Location: [place] [address] Problem List (1) Chest pain Status: Acute (2) Shortness of breath Status: Acute (3) Abnormal cardiac enzyme level Status: Acute (4) CAD (coronary artery disease) Status: Chronic Comment: extensive disease multiple stents (5) S/P PTCA (percutaneous transluminal coronary angioplasty) Status: Chronic (6) S/P CABG (coronary artery bypass graft) Status: Chronic (7) Cardiomyopathy Status: Chronic Qualifiers: (8) Chronic CHF (congestive heart failure) Status: Acute Comment: ef=25% as of 04/04 (9) ICD (implantable cardioverter-defibrillator) in place Status: Chronic (10) Hyperlipidemia Status: Chronic (11) Benign hypertension Status: Chronic (12) DM type 2 (diabetes mellitus, type 2) Status: Chronic (13) Carotid artery stenosis Status: Chronic Comment: R CEA (14) Anemia Status: Acute Reason for Consult Date of Consultation: 10/28/18 History of Present Illness: The patient is a 63 year old white male who has previously been evaluated by Faisal Rg MD of the [facility] and currently has been following with cardiology in [place], [place] who is referred at this time for evaluation of concerns of chest discomfort, shortness of breath/dyspnea, nausea, abnormal cardiac enzymes, superimposed upon a history of underlying CAD, PCI, CABG, ischemic mediated cardiomyopathy, chronic systolic CHF, single-chamber ICD, hyperlipidemia, hypertension, diabetes mellitus, carotid artery disease, recent acute renal insufficiency, and now a recent history of anemia thought secondary to a GI bleed secondary to peptic ulcer disease-Per the patient's report, for cardiovascular evaluation. The patient was recently evaluated at [facility] in cardiovascular consultation on 10/18/2018. At that time there was concerns about his multiple medical issues including acute renal insufficiency and the need for dialysis catheter placement and subsequent hemodialysis. He was transferred to [facility] for further evaluation and care. He states while at [facility] a dialysis catheter was placed, however, he states after his svvkcwpfrof-ynjfylsrx-vxyt discontinued that his renal function improved and he did not require dialysis. However while there he was diagnosed with progressive anemia, underwent an EGD, and was diagnosed with peptic ulcer disease. He states he was told he required a repeat EGD in approximately 2 months. He was then released home for outpatient follow-up. He notes that he has had ongoing chest discomfort that waxes and wanes, of ongoing shortness of breath/dyspnea, and nausea. He is also noted edema of his lower extremities. He presented back to the [facility] for reevaluation. He was found to have concerns of abnormal troponin I levels. His ECG demonstrated sinus rhythm with a continued right bundle branch block pattern. He was referred for a pharmacologic stress nuclear imaging study, however, based upon his ongoing symptoms, he declined the study. He has denied any obvious near syncope or syncope. He states his ICD has not discharged. He does not recall undergoing any cardiovascular testing while at [facility]. He only recalls undergoing evaluation by nephrology and gastroenterology. [] Past Medical History Allergies/Adverse Reactions: Allergies metoclopramide HCl [From Reglan] Adverse Reaction (Verified 10/13/18 12:27) goofy, anxious, elevated BP ondansetron HCl [From Zofran] Adverse Reaction (Verified 10/13/18 12:27) goofy, anxious, elevated BP Tzawppe-Dxp-Jrk Reductase Inhibitor Adverse Reaction (Verified 10/13/18 16:05) rhabdomyolosis Home Medications: Ambulatory Orders Medication Instructions Recorded Carvedilol [Coreg (Beta Bridgett)] 25 mg PO BID 08/11/15 Isosorbide Mononitrate [Imdur] 30 mg PO BID 03/05/16 Past Medical History (Chronic Problems): Chronic Problems S/P CABG (coronary artery bypass graft) (Chronic) S/P PTCA (percutaneous transluminal coronary angioplasty) (Chronic) Cardiomyopathy (Chronic) ICD (implantable cardioverter-defibrillator) in place (Chronic) mediport placement (Chronic) Hyperlipidemia (Chronic) DM type 2 (diabetes mellitus, type 2) (Chronic) Carotid artery stenosis (Chronic) R CEA CAD (coronary artery disease) (Chronic) extensive disease multiple stents Hx of CABG (Chronic) hx epidural abscess (Chronic) Obesity (Chronic) Benign hypertension (Chronic) Surgical History: appendectomy, cataract, cholecystectomy, coronary bypass surgery - 2004 - [place], herniorrhaphy, tonsillectomy, - - Cardiac stent placement 24 (according to patient), right carotid endarterectomy. - *Family History Maternal History Items: No pertinent history Paternal History Items: Heart Disease - of an UT at age 61 Sibling History Items: No pertinent history Smoking Status: Never smoker Review of Systems - Review of Systems General: Reports: Weakness. Denies: Fever, Fatigue, Night Sweats Cardiovascular: Reports: Chest Discomfort, Chest Discomfort at Rest, Chest Discomfort with Exertion, Shortness of Breath, Shortness of Breath at Rest, Shortness of Breath with Exertion, Peripheral Edema. Denies: Orthopnea, PND, Palpitations, Lightheadedness, Dizziness, Near Syncope, Syncope Respiratory: Reports: Shortness of Breath. Denies: Cough, Sputum Production, Hemoptysis Gastrointestinal: Denies: Hematemesis, Hematochezia, Melena Genitourinary: Denies: Dysuria, Hematuria Skin: Denies: Rash Hematologic/ Lymphatic: Reports: Anemia Subjectve: This is a 63-year-old white male who appears to not be feeling well at this time but in no acute distress. Objective: Vital Signs Temp Pulse Resp BP Pulse Ox 98.6 F 82 18 148/79 H 98 10/28/18 05:55 10/28/18 06:15 10/28/18 05:55 10/28/18 05:55 10/28/18 05:55 Oxygen Flow Rate (L/min) 2 Oxygen Delivery Method Room Air Weight: 248 lb 10.903 oz Body Mass Index (BMI) 36.7 Finger Stick Blood Glucose 42 Intake and Output for Last 24 Hours Output Total 200 / 200 Balance -200 / -200 General: Awake, Alert, Oriented x 3, Cooperative, Ill Appearing HEENT: Atraumatic, Normocephalic, PERRL, EOMI, Sclera Non Icteric Oral: Moist Mucosa Neck: Supple, Good ROM, No JVD Lungs: Clear to auscultation Cardiovascular: Regular Rhythm, Normal S1, Normal S2 Abdomen: Bowel Sounds Present, Soft, Non Tender Extremities: Mild RLE Edema, Mild LLE Edema Psych/Mental Status: Appropriate 10/27/18 22:34: WBC 13.1 H, RBC 3.07 L, Hgb 9.0 L, Hct 28.4 L, MCV 92.5, MCH 29.3, MCHC 31.7 L, RDW 16.9 H, RDW Differential 56.0 H, Plt Count 202, MPV 8.7, Immature Gran % (Auto) 0.200, Neut % (Auto) 81.3 H, Lymph % (Auto) 8.2 L, Denali % (Auto) 5.9, Eos % (Auto) 4.2, Baso % (Auto) 0.2, Absolute Neuts (auto) 10.7 H, Total Counted Not Reportable 10/27/18 22:34: Sodium 138, Potassium 3.3 L, Chloride 101, Carbon Dioxide 28.0, Anion Gap 9, BUN 30 H, Creatinine 1.23, Est GFR (MDRD) Af Amer 77, Est GFR (MDRD) Non-Af 63, BUN/Creatinine Ratio 24.4 H, Glucose 227 H, Calcium 8.4 L, Troponin I 0.052 H 10/27/18 22:34: B-Natriuretic Peptide 1581.3 H 10/28/18 01:25: Troponin I 0.051 H 10/28/18 04:25: WBC 12.0 H, RBC 2.90 L, Hgb 8.4 L, Hct 27.2 L, MCV 93.8, MCH 29.0, MCHC 30.9 L, RDW 17.0 H, RDW Differential 58.1 H, Plt Count 216, MPV 9.8, Immature Gran % (Auto) 0.200, Neut % (Auto) 76.3 H, Lymph % (Auto) 9.5 L, Denali % (Auto) 7.9, Eos % (Auto) 5.5 H, Baso % (Auto) 0.6, Absolute Neuts (auto) 9.1 H, Total Counted Not Reportable 10/28/18 04:25: APTT 34.0 10/28/18 04:30: Sodium 139, Potassium 3.5, Chloride 102, Carbon Dioxide 30.0, Anion Gap 7, BUN 31 H, Creatinine 1.28, Est GFR (MDRD) Af Amer 73, Est GFR (MDRD) Non-Af 61, BUN/Creatinine Ratio 24.2 H, Glucose 167 H, Calcium 8.1 L, Total Bilirubin 1.60 H, Direct Bilirubin 0.88 H, Triglycerides 74, Cholesterol 75, LDL Cholesterol 33, VLDL Cholesterol 15, HDL Cholesterol 27 L 10/28/18 04:30: B-Natriuretic Peptide 1640.2 H 10/28/18 04:30: PT 16.5 H, INR 1.3 10/28/18 04:30: Troponin I 0.048 H Rhythm: Sinus rhythm EKG: As noted above ECHO: 10/18/2018: Technically difficult study; contrast injection performed; mildly dilated left ventricle with mild to moderate segmental systolic dysfunction; estimated LVEF 45%; mild concentric LVH; moderate left atrial enlargement; mild to moderate MR; mild TR; mild diffuse aortic valve thickening; trivial MD; borderline enlarged aortic root; estimated RV systolic pressure of 37 mmHg; diastolic dysfunction; pacemaker/ICD leads in the right atrium and right ventricle Cardiac Cath: 03/24/2015: [facility]: Left main coronary normal; LAD occluded; LCx proximal stent patent with distal 80% stenosis; RCA with distal 70% stenosis; LV dysfunction with an LVEF of 20-25% PCI: 03/24/2015: [facility]: PTCA/EVERTON to the LCx system and PTCA/EVERTON to the right PDA system CT Surgery: Reported as having a PARK to the LAD and an SVG to the diagonal branch-previously reported as occluded CXR: Preliminary evaluation: Post open heart surgery changes; post ICD changes; no acute cardiopulmonary disease process; please see official report Assessment/Plan 1. Chest pain/shortness of breath/nausea The patient has a combination of symptoms. The symptoms may be concerning for underlying cardiovascular disease. However at the same time they may be compatible with his multiple noncardiovascular issues as well. From a cardiac standpoint the patient has been noted to have indeterminate troponin I levels. His ECG is as noted above. His recent echocardiogram is as noted above. He will continue medical management with adjustment of medications as needed for the possibility of underlying cardiovascular involvement with his CAD/ischemic cardiomyopathy process. As part of this, based upon his anemia thought secondary to his recent GI bleed secondary to what he reports to be an the finding of peptic ulcer disease, be reasonable to try and increase his H AND H and oxygen carrying capacity with additional PRBCs. He states he received 2 units of PRBCs while at [facility]. However, his H AND H remains low. There may be a need for future noninvasive or invasive cardiovascular evaluation. However there may be hesitancy in proceeding in such manner at this time based upon a combination of concerns. These concerns would be in regard to his recent gastrointestinal bleeding process requiring multiple units of PRBCs as well as his recent acute renal insufficiency with continued concern of the possibility of, despite improvement in his renal function, IV contrast related studies producing an episode of acute renal insufficiency, etc. 2. CAD status post PCI and CABG The patient does have a history of underlying CAD, PCI, and CABG as previously noted. Again at the present time he will continue medical management. He may eventually need further noninvasive or invasive evaluation. However it may be prudent to attempt medical management in the interim until his overall status has improved. 3. Ischemic mediated cardiomyopathy He has recently undergone evaluation of his left ventricular wall motion and systolic function. He will need to continue medical therapy. He does have an ICD in place. 4. Chronic systolic CHF States while at [facility] his diuretics were discontinued. There is concern based upon his symptoms, lower extremity edema, and his elevated BNP level that he will retain fluid and have concerns of acute on chronic stomach mediated CHF. Thus he may need to be back on diuretic therapy. 5. ICD The patient does have a single-chamber ICD. It can be reassessed as needed. 6. Hperlipidemia lowering therapy as deemed appropriate. 7. Hypertension The patient will need to have his blood pressure monitored. His medications can be adjusted as needed. 8. Diabetes mellitus The patient will continue under the care of internal medicine for this. 9. Carotid artery disease The patient does have peripheral arterial occlusive disease and is status post right carotid endarterectomy. He will continue medical management and follow- up as deemed appropriate. 10. Anemia thought secondary to upper GI bleed secondary to peptic ulcer disease The patient should be considered for additional medical therapy and PRBCs. He states he was told he required a follow-up EGD in approximately 2 months. This note was generated using a voice recognition system and there may be incorrect words, spelling or punctuation that were not noted when reviewing the office note prior to saving. 10/29/18 1408 <Electronically signed by Gumaro Ott MD> Date Gumaro Ott MD Cosigner Signature (if applicable): Date CC: OUT OF TOWN DOCTOR; Gumaro Ott MD Signed BEDSIDE GLUCOSE Collected: 10/29/2018 Status: F Source: [facility] 11:00 AM [facility] REPOSITORY TYPE CODE TESTS RESULT OUT OF REFERENCE UNITS RANGE LAB L501.080 70-110 mg/dL High BEDSIDE GLU 172 Result Comment: MANAGEMENT OF PATIENT CARE PER NURSING PROTOCOL Performed By: #### L501.080 #### [facility] Point of Care [address] [place], [place] [id number] BEDSIDE GLUCOSE Collected: 10/29/2018 Status: F Source: [place] 6:47 AM [facility] REPOSITORY TYPE CODE TESTS RESULT OUT OF REFERENCE UNITS RANGE LAB L501.080 70-110 mg/dL High BEDSIDE GLU 130 Result Comment: MANAGEMENT OF PATIENT CARE PER NURSING PROTOCOL Performed By: #### L501.080 #### [facility] Point of Care [address] [facility] [place], [place] [address] CBC-COMPLETE BLOOD CNT Collected: 10/29/2018 Status: F Source: [place] NO DIFF 4:44 AM [facility] REPOSITORY TYPE CODE TESTS RESULT OUT OF RANGE REFERENCE UNITS LAB L100.1000 4.4-11.0 K/mm3 Normal WBC 9.1 LAB L100.1200 4.6-6.2 M/mm3 Low RBC 3.04 LAB L100.1300 13.0-16.5 g/dl Low HGB 8.9 LAB L100.1400 40-54 % Low HCT 28.6 LAB L100.1500 80-94 fL High MCV 94.1 LAB L100.1600 27.0-32.0 pg Normal MCH 29.3 LAB L100.1700 32-36 g/gl Low MCHC 31.1 LAB L100.1810 11.6-14.6 % High RDW CV 17.4 LAB L100.1820 35.1-43.9 fl High RDW SD 59.2 LAB L100.1900 150-450 K/mm3 Normal PLT 174 LAB L100.2000 6.2-12.0 fl Normal MPV 9.6 Performed By: #### L100.0500 #### [facility] [address] [facility] [place], [place], [id number] BASIC METABOLIC Collected: 10/29/2018 Status: F Source: [place] PROFILE (BMP) 4:44 AM [facility] REPOSITORY TYPE CODE TESTS RESULT OUT OF RANGE REFERENCE UNITS LAB L501.0100 74-106 mg/dL High GLU 165 Result Comment: Fasting Glucose result greater than or equal to 126 mg/dL suggests DIABETES MELLITUS per A.D.A. criteria. Please note revised GLUCOSE reference range effective 2017. LAB L501.1000 7-18 mg/dL High BUN 38 LAB L501.1100 0.70-1.30 mg/dL High CREAT,SERUM 1.76 Result Comment: The validity of the calculated GFR AND GFRAA in patients over 70 years has not been determined. Clinical correlation is essential. LAB L501.1110 >60 mL/min Low EST GFR 42 Result Comment: Non- GFR Calc LAB L501.1115 >60 mL/min Low EST GFR - AA 51 Result Comment: GFR Calc LAB L501.1255 ml/min Normal Estimated CRCL 43.52 LAB L501.1300 10-20 RATIO High BUN/CRE 21.6 LAB L501.2200 8.5-10 mg/dL Low .1 CA 8.0 LAB L501.5300 136-14 mmol/L Normal 5 NA 137 LAB L501.5600 3.5-5. mmol/L Normal 1 K 3.8 LAB L501.5900 98-107 mmol/L Normal CL 100 LAB L501.6100 21.0-3 mmol/L Normal 2.0 CO2 30.0 LAB L501.6200 5-15 Normal GAP 7 Performed By: #### L500.2500 #### [facility] [address] [facility] [place], [place], [address] IRON+IRON BINDING Collected: 10/29/2018 Status: F Source: [facility] 4:44 AM [facility] REPOSITORY TYPE CODE TESTS RESULT OUT OF RANGE REFERENCE UNITS LAB L503.6075 250-450 ug/dL TIBC Normal 270 LAB L503.6150 65-175 ug/dL Low IRON 51 LAB L503.6250 15.0-55.0 % IRON Normal SATURATION 18.9 Performed By: #### L503.6030, L503.6550 #### [facility] [address] [facility] [place], [place], [address] FERRITIN Collected: 10/29/2018 Status: F Source: [place] 4:44 AM [facility] REPOSITORY TYPE CODE TESTS RESULT OUT OF REFERENCE UNITS RANGE LAB L503.6550 26-388 ng/mL High FERRITIN 402 Performed By: #### L503.6030, L503.6550 #### [facility] [address] [place], [address] VITAMIN B12 Collected: 10/29/2018 Status: F Source: [place] 4:44 AM [facility] REPOSITORY TYPE CODE TESTS RESULT OUT OF RANGE REFERENCE UNITS LAB L503.0105 211-911 pg/mL Normal Vitamin B12 717 Performed By: #### L503.0105 #### [facility] [address] [place], [address] FOLATES, RBC Collected: 10/29/2018 Status: F Source: [place] 4:44 AM [facility] REPOSITORY TYPE CODE TESTS RESULT OUT OF RANGE REFERENCE UNITS LAB L3100.1735 Not Estab. ng/mL Normal 378.3 FOL,HEMOLYSA TE LAB L3100.1740 37.5-51.0 % Low 26.3 FOLR,HEMATOC RIT LAB L3100.1745 >498 ng/mL Normal FOLATE, 1438 RBC Result Comment: Performed at: - [facility] [address] [id number] Dehairing Machine Tender: Lg Kingsley PhD, Phone: [phone] Performed By: #### L3100.1725 #### [facility] (refer to report for specific site) refer to report for address and phone number BEDSIDE GLUCOSE Collected: 2018 Status: F Source: [place] 9:33 PM [facility] REPOSITORY TYPE CODE TESTS RESULT OUT OF REFERENCE UNITS RANGE LAB L501.080 70-110 mg/dL High BEDSIDE GLU 191 Result Comment: MANAGEMENT OF PATIENT CARE PER NURSING PROTOCOL Performed By: #### L501.080 #### [facility] Point [facility] [address] [place], [place] [address] BEDSIDE GLUCOSE Collected: 2018 Status: F Source: [place] 4:00 PM [facility] REPOSITORY TYPE CODE TESTS RESULT OUT OF REFERENCE UNITS RANGE LAB L501.080 70-110 mg/dL High BEDSIDE GLU 195 Result Comment: MANAGEMENT OF PATIENT CARE PER NURSING PROTOCOL Performed By: #### L501.080 #### [facility] [address] [place] [address] ABDOMEN LIMITED Observed: 2018 Status: F Source: [place] 2:01 PM [facility] REPOSITORY [facility] Imaging Services [address] [place] [address] Abdomen Limited MR#: [id number] Acct: [id number] Name: JADA COLUNGA Rep #: [id number] : 1955 M 63 From: Karishma Munoz MD PCP: OUT OF TOWN DOCTOR Status: ADM IN Study: Abdomen Limited Date of Exam: 10/28/18 Exam# [id number] Ordering Dr: Nikia Ramirez MD STUDY: ABDOMINAL ULTRASOUND - RIGHT UPPER QUADRANT REASON FOR VISIT: Male, 63 years old. Elevated liver function tests. TECHNIQUE: Ultrasound evaluation of the right upper quadrant was performed with real-time and static smith-scale imaging. TECHNICAL QUALITY: Limited. Examination limited by bowel gas. COMPARISON: Renal ultrasound 10/17/2018. CTA chest 01/25/2015 and 09/26/2014. CT abdomen pelvis 06/19/2014 and 3-07/20/2014. FINDINGS: Liver: The liver measures 19.3 cm. There is mild lobularity of the hepatic contour. There is normal echogenicity of the liver. The bile ducts are within normal limits. There is hepatic color flow. The direction of portal flow is hepatopetal. There is no demonstrated mass lesion. Gallbladder: The patient is status post cholecystectomy. Common Bile Duct (C.B.D.): The common bile duct measures 7 mm. Pancreas: There is nonvisualization of the pancreas. Right Kidney: Normal size of the right kidney. The right kidney measures 13 x 7 x 6 cm. Normal renal cortex. The right cortex measures 2.5 cm. There is no demonstrated renal mass or cyst. There is no right hydronephrosis. There is small right pleural effusion. There is no ascites. US/Abdomen Limited IMPRESSION: Hepatomegaly and lobular hepatic contour. Mild cirrhosis not excluded. Status post cholecystectomy. Pancreas is obscured. Small right pleural effusion. Electronically Signed: Karishma Munoz MD at 23:35 EST , Service support , CC: Nikia Ramirez; OUT OF TOWN DOCTOR Software Developer Mid Level: Signed BEDSIDE GLUCOSE Collected: 2018 Status: F Source: [place] 11:36 AM [facility] REPOSITORY TYPE CODE TESTS RESULT OUT OF REFERENCE UNITS RANGE LAB L501.080 70-110 mg/dL High BEDSIDE GLU 227 Result Comment: MANAGEMENT OF PATIENT CARE PER NURSING PROTOCOL Performed By: #### L501.080 #### [facility] [address] [facility] [address] [place], [place] [address] TYPE AND SCREEN Collected: 2018 Status: F Source: [place] 10:55 AM [facility] REPOSITORY Order Comment: CMV NEG? N Number of units to transfuse: 1 Reason for Ordering Blood: Acute Are the blood/blood products to be transfused? Y Is the patient having/had surgery? N Give When? When Ready Irradiated? N Leukodepleted? Y TYPE CODE TESTS RESULT OUT OF RANGE REFERENCE UNITS LAB B10.0800 A Normal BLOOD TYPE GEL POSITIVE LAB B100.4000 Normal Antibody NEGATIVE Screen Performed By: #### B101.7450 #### [facility] [address] [place], [place], [address] RC Collected: 2018 Status: F Source: [place] 10:55 AM [facility] REPOSITORY TYPE CODE TESTS RESULT OUT OF REFERENCE UNITS RANGE LAB U100.0000 [id number] TRANSFUSED PRODUCT: T AND S with Crossmatch, Red Cells COUNT: 1 Performed By: #### U100.0000 #### [facility] - refer to report for specific site RC Collected: 2018 Status: F Source: [place] 10:55 AM [facility] REPOSITORY TYPE CODE TESTS RESULT OUT OF REFERENCE UNITS RANGE LAB U100.0000 [id number] TRANSFUSED PRODUCT: T AND S with Crossmatch, Red Cells COUNT: 1 Performed By: #### U100.0000 #### [facility] - refer to report for specific site BEDSIDE GLUCOSE Collected: 2018 Status: F Source: [place] 9:24 AM [facility] REPOSITORY TYPE CODE TESTS RESULT OUT OF REFERENCE UNITS RANGE LAB L501.080 70-110 mg/dL High BEDSIDE GLU 139 Result Comment: MANAGEMENT OF PATIENT CARE PER NURSING PROTOCOL Performed By: #### L501.080 #### [facility] Point [facility] [address] [place] [address] BEDSIDE GLUCOSE Collected: 2018 Status: F Source: [place] 5:55 AM [facility] REPOSITORY TYPE CODE TESTS RESULT OUT OF REFERENCE UNITS RANGE LAB L501.080 70-110 mg/dL High BEDSIDE GLU 154 Result Comment: MANAGEMENT OF PATIENT CARE PER NURSING PROTOCOL Performed By: #### L501.080 #### [facility] [address] [place] [address] TROPONIN-I Collected: 2018 Status: F Source: [place] 4:30 AM [facility] REPOSITORY Order Comment: 'TROP' Serial specimen #1, #2 or #3: 3 TYPE CODE TESTS RESULT OUT OF RANGE REFERENCE UNITS LAB L501.4010 <0.045 ng/mL High 0.048 TROPONIN-I Result Comment: TROPONIN-I EXPECTED VALUES <0.045 Negative 0.045 - 0.590 Consistent with Cardiac Damage > OR = 0.600 Critical Value Not every elevated troponin is indicative of UT. These values should be used with clinical judgement in examining the patient's clinical picture for diagnosis. To establish a diagnosis of UT versus myocardial injury, there must be a demonstrated rise and/or fall in the troponin values, in addition to ischemic symptoms, EKG changes, new regional wall motion abnormality, and/or angiographical evidence. PLEASE NOTE: REFERENCE RANGES EDITED 18 Performed By: #### L501.4010 #### [facility] [address] [place], [place], [address] PROTHROMBIN TIME W/INR Collected: 2018 Status: F Source: [place] 4:30 AM [facility] REPOSITORY TYPE CODE TESTS RESULT OUT OF RANGE REFERENCE UNITS LAB L300.4150 11.7-14.9 SECONDS High PROTIME 16.5 LAB L300.4200 Normal INR 1.3 Performed By: #### L300.3900 #### [facility] [address] [place], [address] BNP,B-TYPE NATRIURETIC Collected: 2018 Status: F Source: [place] PEPTIDE 4:30 AM [facility] REPOSITORY TYPE CODE TESTS RESULT OUT OF RANGE REFERENCE UNITS LAB L503.6620 0-100 pg/mL High B-TYPE 1640.2 FRED PEP Performed By: #### L503.6620 #### [facility] [address] [place], [address] BASIC METABOLIC Collected: 2018 Status: F Source: [place] PROFILE (BMP) 4:30 AM [facility] REPOSITORY TYPE CODE TESTS RESULT OUT OF RANGE REFERENCE UNITS LAB L501.0100 74-106 mg/dL High GLU 167 Result Comment: Fasting Glucose result greater than or equal to 126 mg/dL suggests DIABETES MELLITUS per A.D.A. criteria. Please note revised GLUCOSE reference range effective 2017. LAB L501.1000 7-18 mg/dL High BUN 31 LAB L501.1100 0.70-1.30 mg/dL Normal CREAT,SERUM 1.28 Result Comment: The validity of the calculated GFR AND GFRAA in patients over 70 years has not been determined. Clinical correlation is essential. LAB L501.1110 >60 mL/min Normal EST GFR 61 Result Comment: Non- GFR Calc LAB L501.1115 >60 mL/min Normal EST GFR - AA 73 Result Comment: GFR Calc LAB L501.1255 ml/min Normal Estimated CRCL 59.84 LAB L501.1300 10-20 RATIO High BUN/CRE 24.2 LAB L501.2200 8.5-10 mg/dL Low .1 CA 8.1 LAB L501.5300 136-14 mmol/L Normal 5 NA 139 LAB L501.5600 3.5-5. mmol/L Normal 1 K 3.5 LAB L501.5900 98-107 mmol/L Normal CL 102 LAB L501.6100 21.0-3 mmol/L Normal 2.0 CO2 30.0 LAB L501.6200 5-15 Normal GAP 7 Performed By: #### L500.2500, L500.3400, L500.4050, L500.4100, L501.9520 #### [facility] [address] [place], [place], [id number] LIVER PROFILE Collected: 2018 Status: F Source: [place] 4:30 AM [facility] REPOSITORY TYPE CODE TESTS RESULT OUT OF RANGE REFERENCE UNITS LAB L501.1500 6.4-8.2 g/dL Normal T PROT 6.9 LAB L501.1800 3.2-5.0 g/dL Low ALB 2.8 LAB L501.1950 2.2-4.2 g/dL Normal GLOB 4.1 LAB L501.4100 15-37 U/L Normal AST 32 LAB L501.4305 45-117 U/L High ALK P 248 LAB L501.4405 16-61 U/L Normal ALT 24 LAB L501.4600 0.20-1.00 mg/dL High T BILI 1.60 LAB L501.4700 0.00-0.30 mg/dL High D BILI 0.88 Performed By: #### L500.2500, L500.3400, L500.4050, L500.4100, L501.9520 #### [facility] [address] [place], [place], [id number] COMPREHENSIVE METABOLIC Collected: 2018 Status: F Source: [facility] 4:30 AM [facility] REPOSITORY TYPE CODE TESTS RESULT OUT OF RANGE REFERENCE UNITS LAB L501.2000 0.9-2.4 RATIO Low A/G 0.7 Performed By: #### L500.2500, L500.3400, L500.4050, L500.4100, L501.9520 #### [facility] [address] [facility] [place], [address] LIPID PROFILE Collected: 2018 Status: F Source: [place] 4:30 AM [facility] REPOSITORY TYPE CODE TESTS RESULT OUT OF RANGE REFERENCE UNITS LAB L501.4900 200 mg/dL Normal CHOL 75 Result Comment: <200 mg/dL Desirable 200-240 mg/dL Borderline >240 mg/dL High Risk LAB L501.5000 mg/dL Normal TRIG 74 Result Comment: The drugs N-Acetylcysteine and Metamizole may falsely depress this assay. Serum Triglycerides Reference Interval Normal <150 mg/dL Borderline high 150 - 199 mg/dL High 200 - 499 mg/dL Very High > or = 500 mg/dL LAB L501.6400 mg/dL Low HDL 27 Result Comment: The drugs N-Acetylcysteine and Metamizole may falsely depress this assay. Reference Range HDL <40 mg/dL Low HDL Cholesterol HDL >or= 60 mg/dL High HDL Cholesterol LAB L501.6500 0-130 mg/dL Normal LDL 33 LAB L501.6600 5-40 mg/dL Normal VLDL 15 Performed By: #### L500.2500, L500.3400, L500.4050, L500.4100, L501.9520 #### [facility] [address] [facility] [place], [place], [address] THYROID STIM HORMONE Collected: 2018 Status: F Source: [place] (TSH) 4:30 AM [facility] REPOSITORY TYPE CODE TESTS RESULT OUT OF RANGE REFERENCE UNITS LAB L501.9520 0.358-3.74 uIU/mL High TSH 4.74 Performed By: #### L500.2500, L500.3400, L500.4050, L500.4100, L501.9520 #### [facility] [address] [facility] [place], [place], [address] CBC W/DIFF, AUTOMATED Collected: 2018 Status: F Source: [place] 4:25 AM [facility] REPOSITORY TYPE CODE TESTS RESULT OUT OF RANGE REFERENCE UNITS LAB L100.1000 4.4-11.0 K/mm3 High WBC 12.0 LAB L100.1200 4.6-6.2 M/mm3 Low RBC 2.90 LAB L100.1300 13.0-16.5 g/dl Low HGB 8.4 LAB L100.1400 40-54 % Low HCT 27.2 LAB L100.1500 80-94 fL Normal MCV 93.8 LAB L100.1600 27.0-32.0 pg Normal MCH 29.0 LAB L100.1700 32-36 g/gl Low MCHC 30.9 LAB L100.1810 11.6-14.6 % High RDW CV 17.0 LAB L100.1820 35.1-43.9 fl High RDW SD 58.1 LAB L100.1900 150-450 K/mm3 Normal PLT 216 LAB L100.2000 6.2-12.0 fl Normal MPV 9.8 LAB L100.2100 47-70 % High NEUT% 76.3 LAB L100.2200 19-41 % Low LY% 9.5 LAB L100.2300 0-10 % Normal MONO% 7.9 LAB L100.2400 0-5 % High EO% 5.5 LAB L100.2500 0-1 % Normal BASO% 0.6 LAB L100.2550 0.0-0.9 % Normal IM GRAN % 0.200 Result Comment: IG% - Immature Granulocytes (promyelocytes, myelocytes and metamyelocytes) > 1% indicates that a LEFT SHIFT is Present. LAB L100.2620 2.0-7.7 X10 3/uL High Absolute Neut 9.1 LAB L100.2720 0.83-4.51 X10 3/ul Normal Absolute Lymph 1.13 Performed By: #### L100.0100 #### [facility] [address] [place], [address] PARTIAL THROMBOPLAST Collected: 2018 Status: F Source: [place] TIME 4:25 AM [facility] REPOSITORY TYPE CODE TESTS RESULT OUT OF RANGE REFERENCE UNITS LAB L300.4310 24.1-36.2 Seconds Normal PTT 34.0 Performed By: #### L300.4310 #### [facility] [address] [place], [address] EMERGENCY DEPARTMENT Observed: 2018 Status: F Source: [place] SUMMARY 1:26 AM [facility] REPOSITORY [facility] Medical Records Department [address] [place] [address] Emergency Department Summary 10/27/18 2319 MR#: [id number] Acct: [id number] Name: JADA COLUNGA Rep #: [id number] : 1955 62 From: Justin Woody MD PCP: OUT OF TOWN DOCTOR Status: ADM CECILE - ER Visit Summary Date of Service: 10/27/18 Chief Complaint: Chest pain History of Present Illness: The patient is a 62 M with multiple comorbidities including coronary artery disease status post CABG with multiple stents, cardiomyopathy, implanted defibrillator, hyperlipidemia, diabetes, and heel infection presents to the emergency department chest pain. The patient was recently admitted to the hospital about 2 weeks ago for cellulitis with concern for osteomyelitis. The patient was placed on IV antibiotics. He ended up having acute kidney injury from his antibiotics and was transferred to [facility]. He had a temporary dialysis catheter placed, but his kidney function recovered and he did not require dialysis. He states his been at home. Today, he had gradual onset of chest heaviness and shortness of breath. States his been worsening. He states he does feel like his prior MIs in the past. He denies any fever or chills. He has had a scant cough. Mild dyspnea. Physical Examination: Vital signs reviewed General: Well-nourished, well-developed Head: Normocephalic, atraumatic Eyes: Pupils equal and reactive, extraocular muscles intact Neck, supple, no lymphadenopathy Heart: Regular rate and rhythm Respiratory: No distress, clear bilaterally Abdomen: Soft, nontender, nondistended, no peritoneal signs Back: Nontender Extremities: Nontender, no edema, no cords Skin: Normal color no rash Neuro: Alert and oriented, no focal or lateralizing deficits Test Results: [] Emergency Department Course and Treatment: EKG was obtained on patient arrival. It showed right bundle branch block, but no acute ischemic change. This was unchanged from prior. Patient was given nitro and aspirin. He continued to complain of some mild pain but was improved. His initial cardiac enzymes are mildly elevated. He also has a leukocytosis, but has had no other infectious symptoms. BNP is elevated. My suspicion is that the patient likely has chronic respiratory failure especially given his morbid obesity and dilated cardia myopathy. With his chest pain and indeterminate cardiac enzymes, I do feel that he would benefit from admission for cardiac rule out. Patient was discussed with the hospitalist. Treatment Plan: [] Disposition: Admission Impression: 1. Chest pain 2. CHF This note was generated with DevHDation software. It may contain incorrect words, spelling, and punctuation that were not noted in review of the chart prior to signing ED Disposition - Plan for ED Patient: Chief Complaint: Chest Pain Referrals: [facility] Doctor,Out of [Primary Care Provider] - What to do if you have Problems For any increased pain, shortness of breath, bleeding, nausea or vomiting, chest pain, or any unexpected problems, contact your Primary Care Provider. Call [facility] ([phone]) or report to the closest Emergency Room. Call 911 if necessary. 10/28/18 0126 <Electronically signed by Justin Woody MD> Date Justin Woody MD Cosigner Signature (If Indicated): Date CC: OUT OF TOWN DOCTOR HISTORY AND PHYSICAL Observed: 2018 Status: F Source: [place] EXAM 12:07 AM [facility] REPOSITORY [facility] Medical Records Department [address] [place] [address] History and Physical 10/27/18 2352 MR#: [id number] Acct: [id number] Name: JADA COLUNGA Rep #: [id number] : 1955 62 From: Gumaro Kemp MD PCP: OUT OF TOWN DOCTOR Status: ADM CECILE Y Location: [place] [address] Problem List (1) S/P PTCA (percutaneous transluminal coronary angioplasty) Status: Chronic (2) Cardiomyopathy Status: Chronic Qualifiers: (3) ICD (implantable cardioverter-defibrillator) in place Status: Chronic (4) Hyperlipidemia Status: Chronic (5) DM type 2 (diabetes mellitus, type 2) Status: Chronic (6) Chronic CHF (congestive heart failure) Status: Acute Comment: ef=25% as of 04/04 (7) CAD (coronary artery disease) Status: Chronic Comment: extensive disease multiple stents (8) Hx of CABG Status: Chronic (9) Obesity Status: Chronic (10) Chest pain Status: Acute History of Present Illness Date of Admission: 10/27/18 Chief Complaint: chest pain and shortness of breath The patient is a 62 year old male patient with an extensive cardiac history including UT, CHF, Cardiomyopathy, 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 He was recently at [facility] following treatment for ATN secondary to IV antibiotics for a wound on his heel. His kidney function improved without dialysis. He states nitro did little to help his chest pain. The pain is moderate and substernal. WBC count is 13, hemoglobin is 9.0. potassium is 3.3, troponin. 0.052, BNP is >1500. CXR is negative for acute findings. He will be admitted for chest pain, echo and stress to be done in am along with cardiology consult. 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) mediport placement (Chronic) Hyperlipidemia (Chronic) DM type 2 (diabetes mellitus, type 2) (Chronic) Carotid artery stenosis (Chronic) R CEA CAD (coronary artery disease) (Chronic) extensive disease multiple stents Hx of CABG (Chronic) hx epidural abscess (Chronic) Obesity (Chronic) Benign hypertension (Chronic) Allergies metoclopramide HCl [From Reglan] Adverse Reaction (Verified 10/13/18 12:27) goofy, anxious, elevated BP ondansetron HCl [From Zofran] Adverse Reaction (Verified 10/13/18 12:27) goofy, anxious, elevated BP Gxpohnd-Rgc-Ryc Reductase Inhibitor Adverse Reaction (Verified 10/13/18 16:05) rhabdomyolosis Home Medications: Ambulatory Orders Medication Instructions Recorded Carvedilol [Coreg (Beta Bridgett)] 25 mg PO BID 08/11/15 Isosorbide Mononitrate [Imdur] 30 mg PO BID 03/05/16 Surgical History: appendectomy, cataract, cholecystectomy, coronary bypass surgery - 2005 - [place], herniorrhaphy, tonsillectomy, - - Cardiac stent placement 24 (according to patient), right carotid endarterectomy. Smoking Status: Never smoker - *Family History Maternal History Items: No pertinent history Paternal History Items: Heart Disease - of an UT at age 61 Sibling History Items: No pertinent history Review of Systems Constitutional: Reports: Weakness. Denies: Chills, Fever, Weight Change HEENT: Denies: Head Aches, Sinus Congestion, Sinus Drainage Cardiovascular: Reports: Chest Pain. Denies: Palpitations Respiratory: Reports: Shortness of breath at rest. Denies: Cough, Sputum production Gastrointestinal: Denies: Abdominal Pain, Nausea, Vomiting Genitourinary: Denies: Dysuria Musculoskeletal: Denies: Joint Pain, Joint Tenderness Skin: Reports: Wounds. Denies: Rash Neurological: Denies: Numbness, Tingling, Focal weakness Psychiatric: Denies: Anxiety, Depression, Homicidal Ideations, Suicidal Ideations Hematologic/ Lymphatic: Denies: Easy Bruising, Easy Bleeding VTE Information - Inpt Only VTE Present on Admission: No VTE Mechan Device Prophylaxis: None VTE Pharm Prophylaxis ordered?: Yes Patient Problems: Active and Suspected Problems Chest pain (Acute) - Physical Exam General: Alert, Oriented x3, Cooperative HEENT: Atraumatic, Normocephalic Neck: Supple Lungs: Clear to auscultation, Normal air movement, No rhonchi, No wheeze, No rales Cardiovascular: Regular rate, Normal S1, Normal S2, No murmurs Abdomen: Bowel Sounds Present, Soft, Non Tender, Obese Extremities: No edema, Capillary Refill Less than 3 Seconds Skin: No rashes, Ulcer/ Wound Musculoskeletal: No Tenderness to Palpation of Joints or Extremities Neurological: Neuro grossly intact Psych/Mental Status: Normal Affect, Appropriate Vital Signs Temp Pulse Resp BP Pulse Ox 99.4 F H 91 21 H 117/64 90 10/27/18 22:18 10/27/18 22:58 10/27/18 22:18 10/27/18 22:58 10/27/18 22:39 Oxygen Flow Rate (L/min) 2 Oxygen Delivery Method Nasal Cannula Weight: 254 lb 6.615 oz Body Mass Index (BMI) 37.5 Finger Stick Blood Glucose 42 Laboratory Tests Past 24 Hrs Assessment/Plan All Active Problems Chest pain (Acute) Bradycardia (Acute) Encephalopathy acute (Acute) DENISHA (acute kidney injury) (Acute) Pain of right heel (Acute) Cellulitis of right heel (Acute) Chronic CHF (congestive heart failure) (Acute) Chronic Problems S/P PTCA (percutaneous transluminal coronary angioplasty) (Chronic) Cardiomyopathy (Chronic) ICD (implantable cardioverter-defibrillator) in place (Chronic) mediport placement (Chronic) Hyperlipidemia (Chronic) DM type 2 (diabetes mellitus, type 2) (Chronic) Carotid artery stenosis (Chronic) R CEA CAD (coronary artery disease) (Chronic) extensive disease multiple stents Hx of CABG (Chronic) hx epidural abscess (Chronic) Obesity (Chronic) Benign hypertension (Chronic) Plan 1. Chest Pain- cycle cardiac enzymes, consult Dr Ott, morphine , nitro, oxygen and aspirin per routine, echo and nuclear stress test in am after discussing case with Dr. Rg. repeat CBC, BMP in am 2. CHF - Lasix in ER, repeat BNP in am 3. DVT prophylaxis- LMWH for DVT prophylaxis Code Visit Inpatient E AND M: 16412 Init Hosp L3 10/28/18 0007 <Electronically signed by Gumaro Kemp MD> Date Gumaro Kemp MD Cosigner Signature: Date (if applicable) CC: OUT OF TOWN DOCTOR; Gumaro Kemp MD Signed CBC W/DIFF, AUTOMATED Collected: 10/27/2018 Status: F Source: [place] 10:34 PM [facility] REPOSITORY TYPE CODE TESTS RESULT OUT OF RANGE REFERENCE UNITS LAB L100.1000 4.4-11.0 K/mm3 High WBC 13.1 LAB L100.1200 4.6-6.2 M/mm3 Low RBC 3.07 LAB L100.1300 13.0-16.5 g/dl Low HGB 9.0 LAB L100.1400 40-54 % Low HCT 28.4 LAB L100.1500 80-94 fL Normal MCV 92.5 LAB L100.1600 27.0-32.0 pg Normal MCH 29.3 LAB L100.1700 32-36 g/gl Low MCHC 31.7 LAB L100.1810 11.6-14.6 % High RDW CV 16.9 LAB L100.1820 35.1-43.9 fl High RDW SD 56.0 LAB L100.1900 150-450 K/mm3 Normal PLT 202 LAB L100.2000 6.2-12.0 fl Normal MPV 8.7 LAB L100.2100 47-70 % High NEUT% 81.3 LAB L100.2200 19-41 % Low LY% 8.2 LAB L100.2300 0-10 % Normal MONO% 5.9 LAB L100.2400 0-5 % Normal EO% 4.2 LAB L100.2500 0-1 % Normal BASO% 0.2 LAB L100.2550 0.0-0.9 % Normal IM GRAN % 0.200 Result Comment: IG% - Immature Granulocytes (promyelocytes, myelocytes and metamyelocytes) > 1% indicates that a LEFT SHIFT is Present. LAB L100.2620 2.0-7.7 X10 3/uL High Absolute Neut 10.7 LAB L100.2720 0.83-4.51 X10 3/ul Normal Absolute Lymph 1.08 Performed By: #### L100.0100 #### [facility] [address] [place], [address] BASIC METABOLIC Collected: 10/27/2018 Status: F Source: [place] PROFILE ([facility]) 10:34 PM [facility] REPOSITORY TYPE CODE TESTS RESULT OUT OF RANGE REFERENCE UNITS LAB L501.0100 74-106 mg/dL High GLU 227 Result Comment: Glucose result greater than or equal to 200 mg/dL suggests DIABETES MELLITUS per A.D.A. criteria. Please note revised GLUCOSE reference range effective 2017. LAB L501.1000 7-18 mg/dL High BUN 30 LAB L501.1100 0.70-1.30 mg/dL Normal CREAT,SERUM 1.23 Result Comment: The validity of the calculated GFR AND GFRAA in patients over 70 years has not been determined. Clinical correlation is essential. LAB L501.1110 >60 mL/min Normal EST GFR 63 Result Comment: Non- GFR Calc LAB L501.1115 >60 mL/min Normal EST GFR - AA 77 Result Comment: GFR Calc LAB L501.1255 ml/min Normal Estimated CRCL 63.07 LAB L501.1300 10-20 RATIO High BUN/CRE 24.4 LAB L501.2200 8.5-10 mg/dL Low .1 CA 8.4 LAB L501.5300 136-14 mmol/L Normal 5 NA 138 LAB L501.5600 3.5-5. mmol/L Low 1 K 3.3 LAB L501.5900 98-107 mmol/L Normal CL 101 LAB L501.6100 21.0-3 mmol/L Normal 2.0 CO2 28.0 LAB L501.6200 5-15 Normal GAP 9 Performed By: #### L500.2500, L501.4010 #### [facility] [address] [place], [address] TROPONIN-I Collected: 10/27/2018 Status: F Source: [place] 10:34 PM [facility] REPOSITORY TYPE CODE TESTS RESULT OUT OF RANGE REFERENCE UNITS LAB L501.4010 <0.045 ng/mL High 0.052 TROPONIN-I Result Comment: TROPONIN-I EXPECTED VALUES <0.045 Negative 0.045 - 0.590 Consistent with Cardiac Damage > OR = 0.600 Critical Value Not every elevated troponin is indicative of UT. These values should be used with clinical judgement in examining the patient's clinical picture for diagnosis. To establish a diagnosis of UT versus myocardial injury, there must be a demonstrated rise and/or fall in the troponin values, in addition to ischemic symptoms, EKG changes, new regional wall motion abnormality, and/or angiographical evidence. PLEASE NOTE: REFERENCE RANGES EDITED 18 Performed By: #### L500.2500, L501.4010 #### [facility] [address] [place], [address] BNP,B-TYPE NATRIURETIC Collected: 10/27/2018 Status: F Source: [place] PEPTIDE 10:34 PM [facility] REPOSITORY TYPE CODE TESTS RESULT OUT OF RANGE REFERENCE UNITS LAB L503.6620 0-100 pg/mL High B-TYPE 1581.3 FRED PEP Performed By: #### L503.6620 #### [facility] [address] [place], [address] CHEST 1 VIEW Observed: 10/27/2018 Status: F Source: [place] (PORTABLE) 10:29 PM [facility] REPOSITORY [facility] Imaging Services [address] [place] [address] Chest 1 View (Portable) MR#: [id number] Acct: [id number] Name: JADA COLUNGA Rep #: [id number] : 1955 M 62 From: Elham Wesley MD PCP: OUT OF TOWN DOCTOR Status: REG ER Study: Chest 1 View (Portable) Date of Exam: 10/27/18 Exam# [id number] Ordering Dr: Justin Woody MD STUDY: X-RAY CHEST REASON FOR EXAM: Male, 62 years old. Chest pain. TECHNIQUE: Single frontal view of the chest. COMPARISON: August 11, 2015 FINDINGS: There is no new focal consolidation. There is a pacer device in place. Sternal cerclage wires are present from a prior sternotomy. Cardiac silhouette is within normal limits. There is a right-sided central venous catheter in place terminating within the superior vena cava. Normal mediastinum and rachele. Normal visualized pulmonary arteries. Normal visualized aortic arch and descending thoracic aorta. Normal visualized thoracic spine. There is a left lower posterior rib deformity consistent with a healed fracture. There are degenerative changes of the visualized right shoulder. There is no demonstrated abnormality of the visualized soft tissue structures of the upper abdomen. RAD/Chest 1 View (Portable) IMPRESSION: No acute cardiopulmonary process. Electronically Signed: Elham Wesley MD at 22:56 EST Tel , Service support , CC: Justin Woody MD; OUT OF TOWN DOCTOR Software Developer Mid Level: Signed CBC Collected: 10/24/2018 Status: F Source: [facility] 6:23 AM [facility] REPOSITORY TYPE CODE TESTS RESULT OUT OF REFERENCE UNITS RANGE LAB WBC(LOINC) 4.50-10.80 10 3/mcL WBC 8.30 LAB RBCCT(LOINC 4.50-6.00 10 6/mcL ) Low RBC 2.76 LAB HGB(LOINC) 13.0-17.5 G/dL Low Hgb 8.2 LAB HCT(LOINC) 40.0-52.0 % Low Hct 24.6 LAB MCV(LOINC) 81.0-100.0 fL MCV 89.3 LAB MCH(LOINC) 27.0-33.0 pg MCH 29.8 LAB MCHC(LOINC) 32.0-36.0 G/dL MCHC 33.4 LAB RDW(LOINC) 11.5-15.5 % High RDW 16.5 LAB PLT(LOINC) 150-450 10 3/mcL Platelet 172 LAB MPV(LOINC) 6.4-10.5 fL MPV 7.5 Performed By: #### CBC, ADIFF, ANEU, BMP, GFR #### [address] [address] .AUTO DIFF Collected: 10/24/2018 Status: F Source: [facility] 6:23 [facility] REPOSITORY TYPE CODE TESTS RESULT OUT OF REFERENCE UNITS RANGE LAB MOLLY(LOINC) 50.0-75.0 % Neutrophil % 72.9 LAB LYM(LOINC) 20.0-40.0 % Low Lymphocyte % 9.9 LAB MON(LOINC) 2.0-13.0 % Monocyte % 10.6 LAB EO(LOINC) 0.0-6.0 % Eosinophil % 6.0 LAB BAS(LOINC) 0.0-2.5 % Basophil % 0.6 LAB ABLYM(LOIN 0.90-4.32 10 3/mcL C) Low Lymphocyte, 0.80 Absolute LAB FRANK(LOINC 0.09-1.40 10 3/mcL ) Monocyte, 0.90 Absolute LAB AEOS(LOINC 0.00-0.65 10 3/mcL ) Eosinophil, 0.50 Absolute LAB ABAS(LOINC 0.00-0.27 10 3/mcL ) Basophil, 0.10 Absolute Performed By: #### CBC, ADIFF, ANEU, BMP, GFR #### [address] [address] .NEUABS Collected: 10/24/2018 Status: F Source: [facility] 6:23 AM [facility] REPOSITORY TYPE CODE TESTS RESULT OUT OF REFERENCE UNITS RANGE LAB ANEU(LOINC) 2.25-8.10 10 3/mcL Neutrophil, 6.00 Absolute Performed By: #### CBCAMY ANEU, BMP, GFR #### [place] [id number] BMP Collected: 10/24/2018 Status: F Source: [facility] 6:23 AM [facility] REPOSITORY TYPE CODE TESTS RESULT OUT OF REFERENCE UNITS RANGE LAB GLU(LOINC) 82-115 mg/dL Glucose High Level 232 LAB NA(LOINC) 136-145 mEq/L Sodium Level 138 LAB K(LOINC) 3.5-5.0 mEq/L Potassium Level 3.6 LAB CL(LOINC) 98-110 mEq/L Chloride 98 LAB CO2(LOINC) 22-32 mEq/L CO2 31 LAB EBAL(LOINC 4.0-15.0 mEq/L ) Electrolyte Balance 9.0 LAB BUN(LOINC) 8.0-22.0 mg/dL BUN High 41.0 LAB CRE(LOINC) 0.60-1.40 mg/dL Creatinine High Lvl (s) 1.58 LAB BC(LOINC) 10.0-22.0 ratio High BUN/Creatinine 25.9 Ratio LAB CA(LOINC) 8.4-10.1 mg/dL Low Calcium Lvl 8.0 Performed By: #### AMY HCU ANEU, BMP, GFR #### [address] [address] .GFR Collected: 10/24/2018 Status: F Source: [facility] 6:23 AM [facility] REPOSITORY TYPE CODE TESTS RESULT OUT OF REFERENCE UNITS RANGE LAB GFRAA(LOINC ml/min/1.73 ) sqm GFR 54 [place] Result Comment: GFR Population mean for , Non- Americans Ages 20-29 = 116 mL/min/1.73 sq.m. Ages 30-39 = 107 mL/min/1.73 sq.m. Ages 40-49 = 99 mL/min/1.73 sq.m. Ages 50-59 = 93 mL/min/1.73 sq.m. Ages 60-69 = 85 mL/min/1.73 sq.m. Ages 70+ = 75 mL/min/1.73 sq.m. Chronic Kidney Disease: Less than 60 mL/min/1.73 square meters End Stage Renal Disease: Less than 15 mL/min/1.73 square meters LAB GFRNO(LOINC) ml/min/1.73sqm GFR Non- 45 Result Comment: GFR Population mean for , Non- Americans Ages 20-29 = 116 mL/min/1.73 sq.m. Ages 30-39 = 107 mL/min/1.73 sq.m. Ages 40-49 = 99 mL/min/1.73 sq.m. Ages 50-59 = 93 mL/min/1.73 sq.m. Ages 60-69 = 85 mL/min/1.73 sq.m. Ages 70+ = 75 mL/min/1.73 sq.m. Chronic Kidney Disease: Less than 60 mL/min/1.73 square meters End Stage Renal Disease: Less than 15 mL/min/1.73 square meters Performed By: #### CBC, ADIFF, ANEU, BMP, GFR #### [place] [address] FINAL SURGICAL Observed: 10/23/2018 Status: F Source: [facility] PATHOLOGY REPORT 10:45 AM [facility] REPOSITORY . Pathology Reports Accession: Collected Date/Time: Received Date/Time: Pathologist: [id number] 10/23/2018 10:45 EST 10/23/2018 10:45 DO JAMES MARCIAL Final Surgical Pathology Report DIAGNOSIS: GASTRIC -- MILD REACTIVE GASTROPATHY. Negative for H. Pylori. CLINICAL INFORMATION: ANEMIA, FOB+ Procedure: EGD WITH BIOPSIES SPECIMEN: A GASTRIC ULCER BIOPSY GROSS DESCRIPTION: Received in formalin labeled gastric ulcer biopsy are two baum - red glistening soft tissue, 0.4 and 0.5 cm. TS- 1 Dictated by JAMES WINTERS DO MICROSCOPIC DESCRIPTION: Slides reviewed. Electronically Signed by Pathology Report verified by [facility] Electronically signed by JAMES WINTERS DO Sign out Date: 10/24/2018 12:19 Performing Lab: [address] Performed By: #### SPFR #### [place] [address] FERR Collected: 10/23/2018 Status: F Source: [facility] 8:16 AM [facility] REPOSITORY TYPE CODE TESTS RESULT OUT OF REFERENCE UNITS RANGE LAB FERR(LOINC) 26-388 ng/mL Ferritin 69 Performed By: #### FERR #### [place] [id number] CBC Collected: 10/23/2018 Status: F Source: [facility] 5:14 AM [facility] REPOSITORY TYPE CODE TESTS RESULT OUT OF REFERENCE UNITS RANGE LAB WBC(LOINC) 4.50-10.80 10 3/mcL WBC 9.80 LAB RBCCT(LOINC 4.50-6.00 10 6/mcL ) Low RBC 2.81 LAB HGB(LOINC) 13.0-17.5 G/dL Low Hgb 8.2 LAB HCT(LOINC) 40.0-52.0 % Low Hct 25.0 LAB MCV(LOINC) 81.0-100.0 fL MCV 89.2 LAB MCH(LOINC) 27.0-33.0 pg MCH 29.1 LAB MCHC(LOINC) 32.0-36.0 G/dL MCHC 32.7 LAB RDW(LOINC) 11.5-15.5 % High RDW 16.2 LAB PLT(LOINC) 150-450 10 3/mcL Platelet 174 LAB MPV(LOINC) 6.4-10.5 fL MPV 7.6 Performed By: #### CBC, ADIFF, ANEU, BMP, GFR #### [place] [address] .AUTO DIFF Collected: 10/23/2018 Status: F Source: [facility] 5:14 AM [facility] REPOSITORY TYPE CODE TESTS RESULT OUT OF REFERENCE UNITS RANGE LAB MOLLY(LOINC) 50.0-75.0 % Neutrophil % 73.9 LAB LYM(LOINC) 20.0-40.0 % Low Lymphocyte % 10.2 LAB MON(LOINC) 2.0-13.0 % Monocyte % 11.0 LAB EO(LOINC) 0.0-6.0 % Eosinophil % 4.4 LAB BAS(LOINC) 0.0-2.5 % Basophil % 0.5 LAB ABLYM(LOIN 0.90-4.32 10 3/mcL C) Lymphocyte, 1.00 Absolute LAB FRANK(LOINC 0.09-1.40 10 3/mcL ) Monocyte, 1.10 Absolute LAB AEOS(LOINC 0.00-0.65 10 3/mcL ) Eosinophil, 0.40 Absolute LAB ABAS(LOINC 0.00-0.27 10 3/mcL ) Basophil, 0.10 Absolute Performed By: #### CBC, ADIFF, ANEU, BMP, GFR #### [place] [address] .NEUABS Collected: 10/23/2018 Status: F Source: [facility] 5:14 AM [facility] REPOSITORY TYPE CODE TESTS RESULT OUT OF REFERENCE UNITS RANGE LAB ANEU(LOINC) 2.25-8.10 10 3/mcL Neutrophil, 7.30 Absolute Performed By: #### CBC, ADIFF, ANEU, BMP, GFR #### [place] [address] BMP Collected: 10/23/2018 Status: F Source: [facility] 5:14 AM [facility] REPOSITORY TYPE CODE TESTS RESULT OUT OF REFERENCE UNITS RANGE LAB GLU(LOINC) 82-115 mg/dL Glucose High Level 220 LAB NA(LOINC) 136-145 mEq/L Sodium Level 137 LAB K(LOINC) 3.5-5.0 mEq/L Potassium Level 3.6 LAB CL(LOINC) 98-110 mEq/L Chloride 99 LAB CO2(LOINC) 22-32 mEq/L CO2 30 LAB EBAL(LOINC 4.0-15.0 mEq/L ) Electrolyte Balance 8.0 LAB BUN(LOINC) 8.0-22.0 mg/dL BUN High 58.0 LAB CRE(LOINC) 0.60-1.40 mg/dL Creatinine High Lvl (s) 1.75 LAB BC(LOINC) 10.0-22.0 ratio High BUN/Creatinine 33.1 Ratio LAB CA(LOINC) 8.4-10.1 mg/dL Low Calcium Lvl 7.9 Performed By: #### CBC, ADIFF, ANEU, BMP, GFR #### [place] [address] .GFR Collected: 10/23/2018 Status: F Source: [facility] 5:14 AM [facility] REPOSITORY TYPE CODE TESTS RESULT OUT OF REFERENCE UNITS RANGE LAB GFRAA(LOINC ml/min/1.73 ) sqm GFR 48 [place] Result Comment: GFR Population mean for , Non- Americans Ages 20-29 = 116 mL/min/1.73 sq.m. Ages 30-39 = 107 mL/min/1.73 sq.m. Ages 40-49 = 99 mL/min/1.73 sq.m. Ages 50-59 = 93 mL/min/1.73 sq.m. Ages 60-69 = 85 mL/min/1.73 sq.m. Ages 70+ = 75 mL/min/1.73 sq.m. Chronic Kidney Disease: Less than 60 mL/min/1.73 square meters End Stage Renal Disease: Less than 15 mL/min/1.73 square meters LAB GFRNO(LOINC) ml/min/1.73sqm GFR Non- 40 Result Comment: GFR Population mean for , Non- Americans Ages 20-29 = 116 mL/min/1.73 sq.m. Ages 30-39 = 107 mL/min/1.73 sq.m. Ages 40-49 = 99 mL/min/1.73 sq.m. Ages 50-59 = 93 mL/min/1.73 sq.m. Ages 60-69 = 85 mL/min/1.73 sq.m. Ages 70+ = 75 mL/min/1.73 sq.m. Chronic Kidney Disease: Less than 60 mL/min/1.73 square meters End Stage Renal Disease: Less than 15 mL/min/1.73 square meters Performed By: #### CBC, ADIFF, ANEU, BMP, GFR #### [place] [address] 12 LEAD ELECTROCARDIOGRAM Observed: 10/22/2018 Status: F Source: [place] 3:10 PM [facility] REPOSITORY [facility] Cardiovascular Services [address] [place] [id number] 12 Lead EKG 10/18/18 0014 MR#: [id number] Acct: [id number] Name: JADA COLUNGA Rep #: [id number] : 1955 62 From: Gumaro Ott MD Attending Dr: Octavio Alvarez DO Status: DIS IN Ordering Dr: Mason Paredes MD Date: 10/17/18 Location: U Sex: M C Admitted: 10/13/18 Test Reason : BRADYCARDIA Blood Pressure : / mmHG Vent. Rate : 041 BPM Atrial Rate : 041 BPM P-R Int : 264 ms QRS Dur : 168 ms QT Int : 548 ms P-R-T Axes : 059 251 038 degrees QTc Int : 452 ms Marked sinus bradycardia with 1st degree A-V block Right bundle branch block Abnormal ECG Confirmed by NAMRATA KEY, GUMARO ([id number]), senior editor MATHIEU KOENIG ([id number]) on 10/22/2018 3:09:38 PM Referred By: NIHARIKA Confirmed By:GUMARO OTT MD 10/22/18 1509 Date Gumaro Ott MD CC: Octavio Alvarez DO; Mason Paredes MD; OUT OF TOWN DOCTOR Signed HGB Collected: 10/22/2018 Status: F Source: [facility] 2:38 PM [facility] REPOSITORY TYPE CODE TESTS RESULT OUT OF RANGE REFERENCE UNITS LAB HGB(LOINC) 13.0-17.5 G/dL Low Hgb 8.4 Performed By: #### HGB, FES #### [place] [address] FES Collected: 10/22/2018 Status: F Source: [facility] 2:38 PM [facility] REPOSITORY TYPE CODE TESTS RESULT OUT OF RANGE REFERENCE UNITS LAB FE(LOINC) 49-181 mcg/dL Low Iron 34 LAB IBC(LOINC) 250-500 mcg/dL TIBC 304 LAB FESAT(LOINC % ) Iron Sat 11 Performed By: #### HGB, FES #### [place] [address] RFP Collected: 10/22/2018 Status: F Source: [facility] 5:32 AM [facility] REPOSITORY TYPE CODE TESTS RESULT OUT OF REFERENCE UNITS RANGE LAB GLU(LOINC) 82-115 mg/dL Glucose High Level 303 LAB NA(LOINC) 136-145 mEq/L Sodium Level 138 LAB K(LOINC) 3.5-5.0 mEq/L Low Potassium Level 3.4 LAB CL(LOINC) 98-110 mEq/L Chloride 99 LAB CO2(LOINC) 22-32 mEq/L CO2 29 LAB EBAL(LOINC 4.0-15.0 mEq/L ) Electrolyte Balance 10.0 LAB BUN(LOINC) 8.0-22.0 mg/dL BUN High 81.0 LAB CRE(LOINC) 0.60-1.40 mg/dL Creatinine High Lvl (s) 2.14 LAB BC(LOINC) 10.0-22.0 ratio High BUN/Creatinine 37.9 Ratio LAB CA(LOINC) 8.4-10.1 mg/dL Low Calcium Lvl 8.1 LAB PHOS(LOINC 2.5-4.5 mg/dL ) Phosphorus 3.5 LAB ALB(LOINC) 3.2-4.8 G/dL Low Albumin Level 2.7 Performed By: #### CBC, ADIFF, ANEU, RFP, GFR #### [place] [address] .GFR Collected: 10/22/2018 Status: F Source: [facility] 5:32 AM [facility] REPOSIT[facility] TYPE CODE TESTS RESULT OUT OF REFERENCE UNITS RANGE LAB GFRAA(LOINC ml/min/1.73 ) sqm GFR 38 [place] Result Comment: GFR Population mean for , Non- Americans Ages 20-29 = 116 mL/min/1.73 sq.m. Ages 30-39 = 107 mL/min/1.73 sq.m. Ages 40-49 = 99 mL/min/1.73 sq.m. Ages 50-59 = 93 mL/min/1.73 sq.m. Ages 60-69 = 85 mL/min/1.73 sq.m. Ages 70+ = 75 mL/min/1.73 sq.m. Chronic Kidney Disease: Less than 60 mL/min/1.73 square meters End Stage Renal Disease: Less than 15 mL/min/1.73 square meters LAB GFRNO(LOINC) ml/min/1.73sqm GFR Non- 32 Result Comment: GFR Population mean for , Non- Americans Ages 20-29 = 116 mL/min/1.73 sq.m. Ages 30-39 = 107 mL/min/1.73 sq.m. Ages 40-49 = 99 mL/min/1.73 sq.m. Ages 50-59 = 93 mL/min/1.73 sq.m. Ages 60-69 = 85 mL/min/1.73 sq.m. Ages 70+ = 75 mL/min/1.73 sq.m. Chronic Kidney Disease: Less than 60 mL/min/1.73 square meters End Stage Renal Disease: Less than 15 mL/min/1.73 square meters Performed By: #### CBC, ADIFF, ANEU, RFP, GFR #### [address] [address] CBC Collected: 10/22/2018 Status: F Source: [facility] 4:47 AM [facility] REPOSITORY TYPE CODE TESTS RESULT OUT OF REFERENCE UNITS RANGE LAB WBC(LOINC) 4.50-10.80 10 3/mcL WBC 10.80 LAB RBCCT(LOINC 4.50-6.00 10 6/mcL ) Low RBC 2.85 LAB HGB(LOINC) 13.0-17.5 G/dL Low Hgb 8.4 LAB HCT(LOINC) 40.0-52.0 % Low Hct 24.8 LAB MCV(LOINC) 81.0-100.0 fL MCV 87.0 LAB MCH(LOINC) 27.0-33.0 pg MCH 29.6 LAB MCHC(LOINC) 32.0-36.0 G/dL MCHC 34.0 LAB RDW(LOINC) 11.5-15.5 % High RDW 15.7 LAB PLT(LOINC) 150-450 10 3/mcL Platelet 172 LAB MPV(LOINC) 6.4-10.5 fL MPV 7.7 Performed By: #### CBC, ADIFF, ANEU, RFP, GFR #### [address] [address] .AUTO DIFF Collected: 10/22/2018 Status: F Source: [facility] 4:47 AM [facility] REPOSITORY TYPE CODE TESTS RESULT OUT OF REFERENCE UNITS RANGE LAB MOLLY(LOINC) 50.0-75.0 % Neutrophil % 74.3 LAB LYM(LOINC) 20.0-40.0 % Low Lymphocyte % 10.8 LAB MON(LOINC) 2.0-13.0 % Monocyte % 9.9 LAB EO(LOINC) 0.0-6.0 % Eosinophil % 4.1 LAB BAS(LOINC) 0.0-2.5 % Basophil % 0.9 LAB ABLYM(LOIN 0.90-4.32 10 3/mcL C) Lymphocyte, 1.20 Absolute LAB FRANK(LOINC 0.09-1.40 10 3/mcL ) Monocyte, 1.10 Absolute LAB AEOS(LOINC 0.00-0.65 10 3/mcL ) Eosinophil, 0.40 Absolute LAB ABAS(LOINC 0.00-0.27 10 3/mcL ) Basophil, 0.10 Absolute Performed By: #### CBC, ADIFF, ANEU, RFP, GFR #### [place] [id number] .NEUABS Collected: 10/22/2018 Status: F Source: [facility] 4:47 AM [facility] REPOSITORY TYPE CODE TESTS RESULT OUT OF REFERENCE UNITS RANGE LAB ANEU(LOINC) 2.25-8.10 10 3/mcL Neutrophil, 8.00 Absolute Performed By: #### CBC, ADIFF, ANEU, RFP, GFR #### [place] [id number] HH Collected: 10/21/2018 Status: F Source: [facility] 11:59 PM [facility] REPOSITORY TYPE CODE TESTS RESULT OUT OF RANGE REFERENCE UNITS LAB HGB(LOINC) 13.0-17.5 G/dL Low Hgb 8.7 LAB HCT(LOINC) 40.0-52.0 % Low Hct 26.5 Performed By: #### HH #### [place] [address] CT ABDOMEN/PELVIS W/O Observed: 10/21/2018 Status: F Source: [facility] 8:00 PM HEALTH [facility] REPOSITORY ORIGINAL CT ABDOMEN/PELVIS W/O CONTRAST, 10/21/2018 8:25 PM INDICATION: Patient with an acute drop in hemoglobin. Complaining of bloating. Concern for intra-abdominal bleed. COMPARISON: December 2016 Technique: CT of the abdomen and pelvis with sagittal and coronal reconstructions. This exam was performed according to our departmental dose optimization program, and includes the following measures where applicable: automated exposure control, adjustment of the mAs and/or kVp accord ing to patient size and/or exam, and an iterative reconstruction algorithm. FINDINGS: There are small pleural effusions and there is mild basilar atelectasis on the RIGHT. There is a cholecystectomy. The remaining abdominal organs are unremarkable in appearance. There is mild ascites, mainly over the dome of the liver. There is an appendectomy. Bowel is poorly evaluated in the absence of oral contrast. There is a curvilinear fat focus in the RIGHT lower quadrant. There is a small amount of fluid along the paracolic gu tters and low the kidneys, slightly greater on the LEFT. There is more prominent fluid in the RIGHT lower quadrant. There is mild edema or infiltration on the flanks, noticeably greater on the RIGHT. IMPRESSION: 1. Curvilinear fat density in the RIGHT lower quadrant along with mild RIGHT lower quadrant fluid; this may represents fat necrosis or omental infarct. 2. Mild ascites and small pleural effusions. 3 . Infiltration of the superficial lateral abdominal tissues, RIGHT greater than LEFT. Interpreted By: Harini Gold MD Preliminary Report By: Harini Gold MD Electronically Signed By: Harini Gold MD Dictated Date: 10/21/2018 8:31:39 PM Prelim Date: 10/21/2018 8:31:39 PM Sign Date: 10/21/2018 8:38:25 PM Collected: 10/21/2018 Status: F Source: [facility] 5:13 PM [facility] REPOSITORY TYPE CODE TESTS RESULT OUT OF RANGE REFERENCE UNITS LAB HGB(LOINC) 13.0-17.5 G/dL Low Hgb 9.2 LAB HCT(LOINC) 40.0-52.0 % Low Hct 27.7 Performed By: #### HH #### [address] [address] OCC (LAB) Collected: 10/21/2018 Status: F Source: [facility] 5:13 PM [facility] REPOSITORY TYPE CODE TESTS RESULT OUT OF RANGE REFERENCE UNITS LAB OCC(LOINC) Negative Unknown Occult Positive Blood Fecal Result Comment: This test utilizes the guaiac fecal blood method, which detects peroxidase activity (heme) indicating bleeding from stomach, small intestine, or large intestine. If bleeding from either upper or lower gastrointestinal tract is a clinical consideration, the [facility] recommends the use of both the guaiac fecal blood test and the Immunochemical fecal blood test. Performed By: #### OCC #### [address] [address] UA Collected: 10/21/2018 Status: F Source: [facility] 1:53 PM [facility] REPOSITORY TYPE CODE TESTS RESULT OUT OF RANGE REFERENCE UNITS LAB SPCUA(LUDMILA NC) UA Specimen Type Void LAB CLRUA(LUDMILA NC) UA Color Yellow LAB APPUA(LUDMILA Clear NC) UA Appear Clear LAB SGUA(LOIN 1.006-1.029 C) UA Spec Grav 1.010 LAB GLUA(LOIN Negative mg/dL C) UA Glucose Unknown 250 LAB BILUA(LUDMILA Neg-Trace NC) UA Bili Negative LAB KETUA(LUDMILA Neg-Trace mg/dL NC) UA Ketones Negative LAB BLDUA(LUDMILA Neg-Trace NC) UA Blood Negative LAB PHUA(LOIN 5.0 - 8.0 C) UA pH 5.0 LAB PROUA(LUDMILA Negative mg/dL NC) UA Protein Negative LAB UROUA(LUDMILA 0.2-1.0 E.U./dL NC) UA Urobilinogen 0.2 LAB NITUA(LUDMILA Negative NC) UA Nitrite Negative LAB LEUUA(LUDMILA Negative NC) UA Leuk Est Negative Performed By: #### UA #### [place] [address] RBC (PRODUCT) Collected: 10/21/2018 Status: F Source: [facility] 9:37 AM [facility] REPOSITORY TYPE CODE TESTS RESULT OUT OF REFERENCE UNITS RANGE LAB RBCPR(LOINC ) RBC Product RBC Ready Ready for Pickup Performed By: #### RBCP #### [address] Collected: 10/21/2018 Status: F Source: [facility] 8:42 AM [facility] REPOSITORY Order Comment: Please recollect, specimen QNS. TYPE CODE TESTS RESULT OUT OF RANGE REFERENCE UNITS LAB HGB(LOINC) 13.0-17.5 G/dL Abnormal Alert Hgb 6.8 Result Comment: Microtainer specimen received. LAB HCT(LOINC) 40.0-52.0 % Low Hct 20.5 Performed By: #### ABORH, ANTIS, #### [place] [address] TABO Collected: 10/21/2018 Status: F Source: [facility] 7:58 AM [facility] REPOSITORY TYPE CODE TESTS RESULT OUT OF RANGE REFERENCE UNITS LAB ABORH(LOINC ) Unknown ABO/Rh A POS Interp Performed By: #### ABORH, ANTIS, #### [address] [address] TABS Collected: 10/21/2018 Status: F Source: [facility] 7:58 AM [facility] REPOSIT[facility] TYPE CODE TESTS RESULT OUT OF REFERENCE UNITS RANGE LAB ANST(LOINC ) Antibody Negative ABSC Screen Tango Performed By: #### PAM DO, HH #### [place] [address] BMP Collected: 10/21/2018 Status: F Source: [facility] 5:23 AM [facility] REPOSITORY TYPE CODE TESTS RESULT OUT OF REFERENCE UNITS RANGE LAB GLU(LOINC) 82-115 mg/dL Glucose High Level 241 LAB NA(LOINC) 136-145 mEq/L Sodium Level 137 LAB K(LOINC) 3.5-5.0 mEq/L Potassium Level 3.9 LAB CL(LOINC) 98-110 mEq/L Chloride 101 LAB CO2(LOINC) 22-32 mEq/L CO2 27 LAB EBAL(LOINC 4.0-15.0 mEq/L ) Electrolyte Balance 9.0 LAB BUN(LOINC) 8.0-22.0 mg/dL BUN High 97.0 LAB CRE(LOINC) 0.60-1.40 mg/dL Creatinine High Lvl (s) 3.16 LAB BC(LOINC) 10.0-22.0 ratio High BUN/Creatinine 30.7 Ratio LAB CA(LOINC) 8.4-10.1 mg/dL Low Calcium Lvl 7.8 Performed By: #### BMP, GFR, CBC, DIFF, MORPH #### [place] [address] .GFR Collected: 10/21/2018 Status: F Source: [facility] 5:23 AM [facility] REPOSIT[facility] TYPE CODE TESTS RESULT OUT OF REFERENCE UNITS RANGE LAB GFRAA(LOINC ml/min/1.73 ) sqm GFR 24 [place] Result Comment: GFR Population mean for , Non- Americans Ages 20-29 = 116 mL/min/1.73 sq.m. Ages 30-39 = 107 mL/min/1.73 sq.m. Ages 40-49 = 99 mL/min/1.73 sq.m. Ages 50-59 = 93 mL/min/1.73 sq.m. Ages 60-69 = 85 mL/min/1.73 sq.m. Ages 70+ = 75 mL/min/1.73 sq.m. Chronic Kidney Disease: Less than 60 mL/min/1.73 square meters End Stage Renal Disease: Less than 15 mL/min/1.73 square meters LAB GFRNO(LOINC) ml/min/1.73sqm GFR Non- 20 Result Comment: GFR Population mean for , Non- Americans Ages 20-29 = 116 mL/min/1.73 sq.m. Ages 30-39 = 107 mL/min/1.73 sq.m. Ages 40-49 = 99 mL/min/1.73 sq.m. Ages 50-59 = 93 mL/min/1.73 sq.m. Ages 60-69 = 85 mL/min/1.73 sq.m. Ages 70+ = 75 mL/min/1.73 sq.m. Chronic Kidney Disease: Less than 60 mL/min/1.73 square meters End Stage Renal Disease: Less than 15 mL/min/1.73 square meters Performed By: #### BMP, GFR, CBC, DIFF, MORPH #### [place] [address] CBC Collected: 10/21/2018 Status: F Source: [facility] 5:23 AM [facility] REPOSIT[facility] TYPE CODE TESTS RESULT OUT OF RANGE REFERENCE UNITS LAB WBC(LOINC) 4.50-10.80 10 3/mcL WBC 9.20 LAB RBCCT(LOIN 4.50-6.00 10 6/mcL C) Low RBC 2.28 LAB HGB(LOINC) 13.0-17.5 G/dL Abnormal Alert Hgb 6.6 LAB HCT(LOINC) 40.0-52.0 % Low Hct 19.7 LAB MCV(LOINC) 81.0-100.0 fL MCV 86.7 LAB MCH(LOINC) 27.0-33.0 pg MCH 29.2 LAB MCHC(LOINC 32.0-36.0 G/dL ) MCHC 33.7 LAB RDW(LOINC) 11.5-15.5 % High RDW 15.6 LAB PLT(LOINC) 150-450 10 3/mcL Platelet 165 LAB MPV(LOINC) 6.4-10.5 fL MPV 8.1 Performed By: #### BMP, GFR, CBC, DIFF, MORPH #### [address] [address] .MANUAL DIFF Collected: 10/21/2018 Status: F Source: [facility] 5:23 AM [facility] REPOSITORY TYPE CODE TESTS RESULT OUT OF REFERENCE UNITS RANGE LAB LIMIT(LOIN C) Cells Counted 100 LAB NEUM(LOINC 50.0-75.0 % ) High Neutrophil %, 86.0 Manual LAB LYMM(LOINC 20.0-40.0 % ) Low Lymphocyte %, 6.0 Manual LAB MONM(LOINC 2.0-13.0 % ) Monocyte %, Manual 4.0 LAB EOM(LOINC) 0.0-6.0 % Eosinophil %, 1.0 Manual LAB BASM(LOINC 0.0-2.5 % ) Basophil High %, Manual 3.0 LAB ANEUM(LOIN 2.25-8.10 10 3/mcL C) Neutrophil, Abs 7.91 Manual LAB ABLYMM(LUDMILA 0.90-4.32 10 3/mcL NC) Low Lymphocyte, Abs 0.55 Manual LAB AMONM(LOIN 0.09-1.40 10 3/mcL C) Monocyte, Abs 0.37 Manual LAB AEOSM(LOIN 0.00-0.65 10 3/mcL C) Eosinophil, Abs 0.09 Manual LAB ABASM(LOIN 0.00-0.27 10 3/mcL C) High Basophil, Abs 0.28 Manual Performed By: #### VINNIE, GFR, CBC, DIFF, MORPH #### [place] [address] .MORPH Collected: 10/21/2018 Status: F Source: [facility] 5:23 AM [facility] REPOSITORY TYPE CODE TESTS RESULT OUT OF REFERENCE UNITS RANGE LAB PLTE(LOINC ) Platelet Estimate Normal LAB ANIS(LOINC ) Anisocytosis Slight LAB POLC(LOINC ) Polychrom Slight Performed By: #### BMP, GFR, CBC, DIFF, MORPH #### [place] [address] IR TEMPORARY DIALYSIS Observed: 10/20/2018 Status: F Source: [facility] CATHETER 11:30 AM [facility] REPOSITORY ORIGINAL IR TEMPORARY DIALYSIS CATHETER INSERTION WITH ULTRASOUND AND FLUOROSCOPIC GUIDANCE , 10/20/2018 CLINICAL STATEMENT: AK I/The patient requires dialysis access COMPARISON: None PROCEDURE: The procedure was performed with maximal sterile barrier precautions - cap, mask, sterile gown, sterile gloves, a a large sterile sheet, and a chlorhexidine skin prep. The RIGHT internal jugu lar vein was localized with ultrasound guidance. Lidocaine 2% was injected as a local anesthetic. A micropuncture set was used to access the vein. A permanent sonographic image was obtained to document the access site and placement of the needle in the patent vessel lumen. A Scott wire was advanced through the micropuncture catheter delayed as the EKG was monitored . The vena puncture site in the neck was enlarged with with sequentially larger vessel dilators. A 14 Palestinian 20 cm SLX Dual Lumen catheter was utilized as a dialysis catheter. The tip of the catheter was placed in the cavoatrial junction as confirmed by a Fluoroscopic image. The catheter was sutured in place using 2- 0 Ethibond. Each of the catheter lumens was flushed with saline. No immediate complication was observed. The patient tolerated the procedure well. Total Fluoro Time: 1.1 minutes Total air kerma dose: 35 mGy. IMPRESSION: Successful temporary RIGHT internal jugular hemodialysis catheter insertion. The procedure was performed by Kristel Reeder, Physician R Programmer. I concur with the contents of the report. Interpreted By: Shavonne Myers MD Preliminary Report By: Kristel Reeder CO Electronically Signed By: Shavonne Myers MD Dictated Date: 10/20/2018 1:51:09 PM Prelim Date: 10/20/2018 1:55:19 PM Sign Date: 10/20/2018 2:11:34 PM CONSULTATION Observed: 10/20/2018 Status: F Source: [place] 9:05 AM [facility] REPOSITORY [facility] Medical Records Department [address] [place] [address] Consultation 10/19/18 1059 MR#: [id number] Acct: [id number] Name: JADA COLUNGA Rep #: [id number] : [id number] 62 From: Sudheer Ken MD PCP: OUT OF TOWN DOCTOR Status: DIS IN Y [id number] Problem List (1) S/P PTCA (percutaneous transluminal coronary angioplasty) Status: Chronic (2) Cardiomyopathy Status: Chronic Qualifiers: Cardiomyopathy type: ischemic Qualified Code(s): I25.5 - Ischemic cardiomyopathy (3) ICD (implantable cardioverter-defibrillator) in place Status: Chronic (4) DENISHA (acute kidney injury) Status: Acute (5) Pain of right heel Status: Acute (6) Cellulitis of right heel Status: Acute (7) mediport placement Status: Chronic (8) Hyperlipidemia Status: Chronic (9) DM type 2 (diabetes mellitus, type 2) Status: Chronic (10) Chronic CHF (congestive heart failure) Status: Chronic Comment: ef=25% as of 04/04 (11) Carotid artery stenosis Status: Chronic Comment: R CEA (12) Suspected sleep apnea Status: Suspected (13) CAD (coronary artery disease) Status: Chronic Comment: extensive disease multiple stents (14) Hx of CABG Status: Chronic (15) hx epidural abscess Status: Chronic (16) Obesity Status: Chronic (17) Benign hypertension Status: Chronic Reason for Consult Date of Consultation: 10/19/18 Reason for Consultation: Dialysis catheter placement History of Present Illness: The patient is a 62 year old M, with past medical history listed below, who presented to [facility] on 10/13/2018 secondary to increased pain of his right heel. Patient has had a progressive course over the last 6 days with worsening renal failure. I was called overnight and asked to obtain venous access for hemodialysis. Surgery was called initially, but reportedly does not place hemodialysis lines. Patient reports that he has had multiple issues with venous access in the past leading to the placement of a right subclavian port. She also has an extensive cardiac history requiring PCI, CABG and chronic systolic congestive heart failure. Patient reportedly has been more difficult to arise recently and this is been attributed to patient's uremia. Patient is also been placed on dopamine therapy secondary to bradycardia. Patient has been being treated for osteomyelitis of the right foot. Patient is open for dialysis therapy. Patient has been having significant difficulties with nausea and vomiting overnight, which has been responsive to Phenergan therapy. Discussed risks and benefits of dialysis catheter placement at length with the patient. After review of the risks, benefits and alternatives, patient has agreed to proceed with dialysis catheter placement. Review of systems otherwise negative x10 systems, but accuracy is unclear given patient's mental status. 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) mediport placement (Chronic) Hyperlipidemia (Chronic) DM type 2 (diabetes mellitus, type 2) (Chronic) Chronic CHF (congestive heart failure) (Chronic) ef=25% as of 04/04 Carotid artery stenosis (Chronic) R CEA CAD (coronary artery disease) (Chronic) extensive disease multiple stents Hx of CABG (Chronic) hx epidural abscess (Chronic) Obesity (Chronic) Benign hypertension (Chronic) Allergies metoclopramide HCl [From Reglan] Adverse Reaction (Verified 10/13/18 12:27) goofy, anxious, elevated BP ondansetron HCl [From Zofran] Adverse Reaction (Verified 10/13/18 12:27) goofy, anxious, elevated BP Jbuxjbe-Nxb-Asj Reductase Inhibitor Adverse Reaction (Verified 10/13/18 16:05) rhabdomyolosis Home Medications: Ambulatory Orders Medication Instructions Recorded Clopidogrel Bisulfate [Plavix] 75 mg PO DAILY 02/08/15 Surgical History: appendectomy, cataract, cholecystectomy, coronary bypass surgery - 2004 - [place], herniorrhaphy, tonsillectomy, - - Cardiac stent placement 24 (according to patient), right carotid endarterectomy. Lives: With Family Smoking Status: Never smoker Tobacco Use: Non-smoker Alcohol: None - *Family History Maternal History Items: No pertinent history Paternal History Items: Heart Disease - of an UT at age 61 Sibling History Items: No pertinent history Review of Systems Comment: See HPI, otherwise negative x10 systems Patient Problems: Active and Suspected Problems Bradycardia (Acute) Encephalopathy acute (Acute) DENISHA (acute kidney injury) (Acute) Cellulitis of right heel (Acute) Objective: Attempt #1 After confirmation of informed consent, both IJ's were visualized using ultrasound guidance. The right IJ was chosen. The area was anesthetized using 1% lidocaine no complication. The IJ was cannulized twice using ultrasound guidance without difficulty. However, at approximately 15 cm, resistance was met. There was noted to be some kinking of the guidewire, so the procedure was aborted. Hemostasis was achieved with pressure only. No arterial damage was noted on ultrasound. Patient did not have any change in respiratory status. Attempt #2 Left femoral vein was localized using ultrasound guidance. Area was anesthetized using 1% lidocaine. Nonpulsatile dark blood was noted. Guidewire was placed without difficulty. Patient tolerated initial dilating without difficulty. However, upon attempts at second dilation, significant resistance was noted. Multiple attempts at dilation were not successful. Did attempt to place the catheter to see if it would reach before the obstruction, but would not thread. Patient's procedure was aborted. Left femoral groin was held with pressure for approximately 5 minutes until bleeding cessation was achieved. No hematoma was appreciated. Over 45 minutes was spent on 2 attempts for hemodialysis access. Both attempts were unsuccessful. - Physical Exam General: Oriented x3, Cooperative, No apparent distress, - - Morbidly obese. RASS -2--1 HEENT: Atraumatic, PERRLA, EOMI, Normocephalic, - - No scleral icterus or injection noted. Oral: Moist Mucosa, No Gingival or Mucosal Lesions/ Ulcerations Neck: Supple, No JVD, No Nodes, Trachea Midline, - - Small scar noted in the right vascular bundle Lungs: No rhonchi, No wheeze, No rales, Diminished, - - Symmetric expansion. No dullness to percussion. Cardiovascular: Regular rate, Regular Rhythm, Normal S1, Normal S2, No murmurs, No rub noted, No Gallop Abdomen: Bowel Sounds Present, Soft, Non Tender, Non-Distended, Obese Extremities: No clubbing, No cyanosis, Capillary Refill Less than 3 Seconds, Edema Skin: No rashes, - - Right foot is dressed and was not evaluated. Musculoskeletal: No Tenderness to Palpation of Joints or Extremities Lymphatic: Inguinal Adenopathy Neurological: Cranial nerves II-XII grossly intact, Neuro grossly intact, Motor Exam 5/5 strength throughout Psych/Mental Status: Appropriate, Flat Affect Vital Signs Temp Pulse Resp BP Pulse Ox 37.2 C 70 20 H 138/62 H 96 10/19/18 09:00 10/19/18 10:00 10/19/18 10:00 10/19/18 10:00 10/19/18 10:00 Oxygen Flow Rate (L/min) 2 Oxygen Delivery Method Room Air Weight: 113.534 kg Body Mass Index (BMI) 36.9 Finger Stick Blood Glucose 42 Intake and Output for Last 24 Hours Microbiology Past 72 Hours 10/13/18 13:10 Blood Culture - Final Laboratory Tests Past 24 Hrs WBC RBC Hgb Hct MCV MCH MCHC RDW RDW Differential Plt Count MPV Immature Gran % (Auto) Neut % (Auto) POC Glucose POC Glucose 125 H 134 H 141 H POC Glucose 134 H 100 Clinical Impression(s) from Imaging Studies Foot X-Ray 10/13/18 13:48 IMPRESSION: No fracture or dislocation. Subcutaneous air in the soft tissues overlying the heel, consistent with the patient's history of a wound. Faint lucency in the calcaneus adjacent to the wound. This may represent osteomyelitis. If indicated, further evaluation with MRI can BE performed. Diffuse soft tissue swelling. Electronically Signed: Boris Lizarraga, at 14:07 EST Tel , Service support , Bone Scan Nuclear Medicine 10/15/18 06:30 IMPRESSION: 1. The increase in radiopharmaceutical concentration asymmetrically defined in the right ankle articulation on late projections only likely represents a component of degenerative arthritis. If infection remains a diagnostic consideration, correlation with gallium imaging or a labeled leukocyte scintigraphy is recommended. 2. Degenerative arthritis appears evident in the right forefoot and midfoot. Electronically Signed: Shalom Clark, at 13:20 EST Tel , Service support , Renal Ultrasound 10/17/18 07:50 IMPRESSION: Normal ultrasound of the kidneys and urinary bladder. Electronically Signed: Eric Pandey, at 22:01 EST Tel [phone], Service support , Assessment/Plan All Active Problems Bradycardia (Acute) Encephalopathy acute (Acute) DENISHA (acute kidney injury) (Acute) Pain of right heel (Acute) Cellulitis of right heel (Acute) RECOMMENDATIONS: 1. Hemodialysis per nephrology 2. Obtain chest x-ray to evaluate for complications of initial attempt 3. Antibiotics per infectious disease 4. Consider transfer to tertiary center for placement of dialysis access. IMPRESSIONS: 1. Acute renal failure Patient is in need of emergent dialysis. Attempts at IJ access were unsuccessful, likely secondary to interference with the port. Femoral access was also met by obstruction on the process of dilating. This was aborted for safety reasons. Patient does not have significant renal function to allow for contrasted study for evaluation of other access. Given that surgery was not able to attempt initially, there are no other providers with privileges at this time. Called hospitalist to discuss course of action. Patient will likely require transfer to a tertiary center to obtain dialysis access. 2. Heel cellulitis/osteomyelitis Patient is being followed by infectious disease. Cultures been positive for MRSA. Patient is on Levaquin and Augmentin at this time. Also being followed by podiatry. Unfortunately, femoral access had to be obtained. 3. Diabetes mellitus, CHF, metabolic encephalopathy, bradycardia Complicates care, management, recovery and prognosis. Patient is on dopamine drip at this time. This may be secondary to #1. Hospitalist and cardiology are following. Code Visit Inpatient E AND M: 70383 Init Hosp L3 10/20/1805 <Electronically signed by Sudheer Ken MD> Date Sudheer Ken MD Cosigner Signature (if applicable): Date CC: Sudheer Ken MD; Jeremie Blankenship DPM; OUT OF TOWN DOCTOR; Gumaro Ott MD; Raúl Mendes MD; Aaron Cool MD Signed PRO Collected: 10/20/2018 Status: F Source: [facility] 9:01 AM [facility] Order Comment: for temp dialysis cath TYPE CODE TESTS RESULT OUT OF REFERENCE UNITS RANGE LAB PT(LOINC) 9.0-14.6 seconds Protime 14.4 Result Comment: Effective 05/04/08, Protime results may be affected by some antibiotics (i.e. Ciprofloxacin, Azithromycin, Bactrim) which may potentiate the action of oral anticoagulants, with further increase in Protime/INR. LAB INR(LOINC) ratio PT International Ratio 1.2 Result Comment: The [place] [employer] (CHEST, 1992, 102:[id number]-[id number]) recommended therapeutic range for oral anticoagulant therapy is: LOW RISK: Prophylaxis of venous thrombosis INR: 2.0-3.0 Treatment of pulmonary embolism 2.0-3.0 Prevention of systemic embolism 2.0-3.0 HIGH RISK: Mechanical prosthetic valves 2.5-3.5 Performed By: #### PRO #### [place] [address] CBC Collected: 10/20/2018 Status: F Source: [facility] 5:51 AM [facility] REPOSITORY TYPE CODE TESTS RESULT OUT OF REFERENCE UNITS RANGE LAB WBC(LOINC) 4.50-10.80 10 3/mcL High WBC 12.40 LAB RBCCT(LOINC 4.50-6.00 10 6/mcL ) Low RBC 2.89 LAB HGB(LOINC) 13.0-17.5 G/dL Low Hgb 8.1 LAB HCT(LOINC) 40.0-52.0 % Low Hct 25.0 LAB MCV(LOINC) 81.0-100.0 fL MCV 86.6 LAB MCH(LOINC) 27.0-33.0 pg MCH 28.0 LAB MCHC(LOINC) 32.0-36.0 G/dL MCHC 32.4 LAB RDW(LOINC) 11.5-15.5 % High RDW 15.7 LAB PLT(LOINC) 150-450 10 3/mcL Platelet 188 LAB MPV(LOINC) 6.4-10.5 fL MPV 8.1 Performed By: #### CBC, ADIFF, ANEU, BMP, GFR #### [place] [address] .AUTO DIFF Collected: 10/20/2018 Status: F Source: [facility] 5:51 AM [facility] REPOSITORY TYPE CODE TESTS RESULT OUT OF REFERENCE UNITS RANGE LAB MOLLY(LOINC) 50.0-75.0 % High Neutrophil % 82.2 LAB LYM(LOINC) 20.0-40.0 % Low Lymphocyte % 8.0 LAB MON(LOINC) 2.0-13.0 % Monocyte % 9.1 LAB EO(LOINC) 0.0-6.0 % Eosinophil % 0.3 LAB BAS(LOINC) 0.0-2.5 % Basophil % 0.4 LAB ABLYM(LOIN 0.90-4.32 10 3/mcL C) Lymphocyte, 1.00 Absolute LAB FRANK(LOINC 0.09-1.40 10 3/mcL ) Monocyte, 1.10 Absolute LAB AEOS(LOINC 0.00-0.65 10 3/mcL ) Eosinophil, 0.00 Absolute LAB ABAS(LOINC 0.00-0.27 10 3/mcL ) Basophil, 0.00 Absolute Performed By: #### CBC, ADIFF, ANEU, BMP, GFR #### [place] [address] .NEUABS Collected: 10/20/2018 Status: F Source: [facility] 5:51 AM [facility] REPOSITORY TYPE CODE TESTS RESULT OUT OF REFERENCE UNITS RANGE LAB ANEU(LOINC) 2.25-8.10 10 3/mcL High Neutrophil, 10.20 Absolute Performed By: #### CBC, ADIFF, ANEU, BMP, GFR #### [place] [address] BMP Collected: 10/20/2018 Status: F Source: [facility] 5:51 AM [facility] REPOSITORY TYPE CODE TESTS RESULT OUT OF REFERENCE UNITS RANGE LAB GLU(LOINC) 82-115 mg/dL Glucose High Level 185 LAB NA(LOINC) 136-145 mEq/L Low Sodium Level 134 LAB K(LOINC) 3.5-5.0 mEq/L Potassium Level 4.7 LAB CL(LOINC) 98-110 mEq/L Low Chloride 97 LAB CO2(LOINC) 22-32 mEq/L CO2 24 LAB EBAL(LOINC 4.0-15.0 mEq/L ) Electrolyte Balance 13.0 LAB BUN(LOINC) 8.0-22.0 mg/dL BUN High 93.0 LAB CRE(LOINC) 0.60-1.40 mg/dL Creatinine High Lvl (s) 4.36 LAB BC(LOINC) 10.0-22.0 ratio BUN/Creatinine 21.3 Ratio LAB CA(LOINC) 8.4-10.1 mg/dL Low Calcium Lvl 8.3 Performed By: #### CBC, ADIFF, ANEU, BMP, GFR #### [place] [address] .GFR Collected: 10/20/2018 Status: F Source: [facility] 5:51 AM [facility] REPOSITORY TYPE CODE TESTS RESULT OUT OF REFERENCE UNITS RANGE LAB GFRAA(LOINC ml/min/1.73 ) sqm GFR 17 [place] Result Comment: GFR Population mean for , Non- Americans Ages 20-29 = 116 mL/min/1.73 sq.m. Ages 30-39 = 107 mL/min/1.73 sq.m. Ages 40-49 = 99 mL/min/1.73 sq.m. Ages 50-59 = 93 mL/min/1.73 sq.m. Ages 60-69 = 85 mL/min/1.73 sq.m. Ages 70+ = 75 mL/min/1.73 sq.m. Chronic Kidney Disease: Less than 60 mL/min/1.73 square meters End Stage Renal Disease: Less than 15 mL/min/1.73 square meters LAB GFRNO(LOINC) ml/min/1.73sqm GFR Non- 14 Result Comment: GFR Population mean for , Non- Americans Ages 20-29 = 116 mL/min/1.73 sq.m. Ages 30-39 = 107 mL/min/1.73 sq.m. Ages 40-49 = 99 mL/min/1.73 sq.m. Ages 50-59 = 93 mL/min/1.73 sq.m. Ages 60-69 = 85 mL/min/1.73 sq.m. Ages 70+ = 75 mL/min/1.73 sq.m. Chronic Kidney Disease: Less than 60 mL/min/1.73 square meters End Stage Renal Disease: Less than 15 mL/min/1.73 square meters Performed By: #### CBC, ADIFF, ANEU, BMP, GFR #### [place] [address] BEDSIDE GLUCOSE Collected: 10/19/2018 Status: F Source: [place] 4:50 PM [facility] REPOSITORY TYPE CODE TESTS RESULT OUT OF REFERENCE UNITS RANGE LAB L501.080 70-110 mg/dL High BEDSIDE GLU 142 Result Comment: MANAGEMENT OF PATIENT CARE PER NURSING PROTOCOL Performed By: #### L501.080 #### [facility] Point [place] [address] BEDSIDE GLUCOSE Collected: 10/19/2018 Status: F Source: [place] 2:15 PM [facility] REPOSITORY TYPE CODE TESTS RESULT OUT OF REFERENCE UNITS RANGE LAB L501.080 70-110 mg/dL High BEDSIDE GLU 133 Result Comment: MANAGEMENT OF PATIENT CARE PER NURSING PROTOCOL Performed By: #### L501.080 #### [facility] Point of Care [address] [place] [address] DISCHARGE SUMMARY Observed: 10/19/2018 Status: F Source: [place] 1:11 PM [facility] REPOSITORY [facility] Medical Records Department [address] [place] [address] Discharge Summary 10/19/18 1305 MR#: [id number] Acct: [id number] Name: JADA COLUNGA Rep #: [id number] : [id number] 62 From: Octavio Alvarez DO PCP: OUT OF TOWN DOCTOR Status: ADM IN Y Location: [place] [address] Discharge Date and Diagnosis - Problem List Patient Problems: Active and Suspected Problems Bradycardia (Acute) Encephalopathy acute (Acute) DENISHA (acute kidney injury) (Acute) Cellulitis of right heel (Acute) Date of Admission: 10/13/18 Date of Discharge: 10/19/18 - Primary Discharge Diagnosis Active and Suspected Problems Bradycardia (Acute) Encephalopathy acute (Acute) DENISHA (acute kidney injury) (Acute) Cellulitis of right heel (Acute) - Secondary Discharge Diagnosis Chronic Problems S/P PTCA (percutaneous transluminal coronary angioplasty) (Chronic) Cardiomyopathy (Chronic) ICD (implantable cardioverter-defibrillator) in place (Chronic) mediport placement (Chronic) Hyperlipidemia (Chronic) DM type 2 (diabetes mellitus, type 2) (Chronic) Chronic CHF (congestive heart failure) (Chronic) ef=25% as of 04/04 Carotid artery stenosis (Chronic) R CEA CAD (coronary artery disease) (Chronic) extensive disease multiple stents Hx of CABG (Chronic) hx epidural abscess (Chronic) Obesity (Chronic) Benign hypertension (Chronic) Hospital Course and Treatment Imaging Results: Clinical Impression(s) from Imaging Studies Foot X-Ray 10/13/18 13:48 IMPRESSION: No fracture or dislocation. Subcutaneous air in the soft tissues overlying the heel, consistent with the patient's history of a wound. Faint lucency in the calcaneus adjacent to the wound. This may represent osteomyelitis. If indicated, further evaluation with MRI can BE performed. Diffuse soft tissue swelling. Electronically Signed: Boris Lizarraga at 14:07 EST Tel , Service support , Bone Scan Nuclear Medicine 10/15/18 06:30 IMPRESSION: 1. The increase in radiopharmaceutical concentration asymmetrically defined in the right ankle articulation on late projections only likely represents a component of degenerative arthritis. If infection remains a diagnostic consideration, correlation with gallium imaging or a labeled leukocyte scintigraphy is recommended. 2. Degenerative arthritis appears evident in the right forefoot and midfoot. Electronically Signed: Shalom Clark, DO at 13:20 EST Tel , Service support , Renal Ultrasound 10/17/18 07:50 IMPRESSION: Normal ultrasound of the kidneys and urinary bladder. Electronically Signed: Eric Pandey, DO at 22:01 EST Tel [phone], Service support , Consultations 10/13/18 17:31 Consult: Onc/Wound/program engineer Routine Comment: Reason for Consult:: ulcers bilateral heels [facility]--podiatry Vaughn--ROYN Ott--Cardiology Jesus Manuel--[facility] Silvina--nephrology Operations: None Procedures: 2-D Echocardiogram Summary of Care Provided: The patient is a 62 year old M presents with right heel cellulitis. Right heel cellulitis came back positive for MRSA and patient was on Vanco mycin and Zosyn. Bone scan was negative and patient was eventually changed over to Levaquin and Augmentin. Comp gated factor is acute renal failure on top of chronic kidney disease. Patient became oliguric and his creatinine continued to worsen. Dialysis catheter was attempted in the IJ as well as femoral region with unsuccessful. Patient does require urgent dialysis and I will not be able to get a tunneled dialysis catheter over the weekend Nor until mid next week. The recommendation was to transfer the patient. Discussed with the patient and he requested Vero. I spoke with the hospitalist over at [facility] who agreed to accept the patient and discussed case in detail with him. Patient will be transferred in stable condition. 1. Heel cellulitis * no obvious osteomyelitis * culture + for MRSA * on levaquin and augmentin * podiatry and ID following * ID consult given the MRSA and now DENISHA * Lower extremity duplex ordered. 2. DENISHA * new, worse again today * oliguric * on CKD 3 * suspect d/t vanc v Bumex or combination * continue IVF * FEUrea 14.26, consistent with prerenal azotemia * has been refractory to IVF and Bumex * Nephrology on page to see if any changes or need for DERMATOLOGY TEACHER * for dialysis catheter today, then HD 3. DM2 * hypoglycemic resolved * continue with decreased Lantus 20 bid for now + SSI 4. HFrEF * EF 40% from 2013 * compensated at this time. * continue carvedilol, hydralazine, imdur * not candidate for ACEi/ARB given DENISHA 5. Encephalopathy * resolved * suspect more toxic due to his meds given reduced renal clearance as gabapentin is 100% cleared in the urine * continue to hold potentiating medications ([place], neurontin) 6. Bradycardia * improved today * on Dopamine gtt * Coreg discontinued * cardiology consult 7. DVT proph: SQ heparin. [] Patient Problems: Active and Suspected Problems Bradycardia (Acute) Encephalopathy acute (Acute) DENISHA (acute kidney injury) (Acute) Cellulitis of right heel (Acute) - Physical Exam Vital Signs Temp Pulse Resp BP Pulse Ox 37.2 C 74 14 140/61 H 95 10/19/18 09:00 10/19/18 12:00 10/19/18 12:00 10/19/18 12:00 10/19/18 12:17 Oxygen Flow Rate (L/min) 2 Oxygen Delivery Method Room Air Weight: 113.534 kg Body Mass Index (BMI) 36.9 Finger Stick Blood Glucose 42 Intake and Output for Last 24 Hours Microbiology Past 72 Hours 10/13/18 13:10 Blood Culture - Final Laboratory Tests Past 24 Hrs WBC RBC Hgb Hct MCV MCH MCHC RDW RDW Differential Plt Count MPV Immature Gran % (Auto) Neut % (Auto) POC Glucose POC Glucose 125 H 134 H 141 H POC Glucose 134 H Discharge Diet: Low fat/ Low Cholesterol, 1800 Calorie Control Diet Discharge Activity: Return to Normal Activity Home Medications: Medications to take at Discharge Clopidogrel Bisulfate [Plavix] 75 mg PO DAILY 02/08/15 Carvedilol [Coreg (Beta Bridgett)] 25 mg PO BID 08/11/15 Isosorbide Mononitrate [Imdur] 30 mg PO BID 03/05/16 Tizanidine HCl 8 mg PO TID PRN 03/05/16 Amlodipine [Norvasc] 10 mg PO DAILY 10/13/18 Aspirin 81 mg PO DAILY 10/13/18 Atorvastatin Calcium [Lipitor] 80 mg PO QHS 10/13/18 Bumetanide 3 mg PO BID 10/13/18 Diclofenac [Voltaren] 75 mg PO BIDCM 10/13/18 Duloxetine HCl 30 mg PO DAILY 10/13/18 Ferrous Sulfate [Ferosul] 325 mg PO QODAY 10/13/18 Gabapentin 600 mg PO TID 10/13/18 Hydroxyzine HCl 25 mg PO TID PRN 10/13/18 Insulin Glargine,Hum.rec.anlog [Basaglar Kwikpen U-100] 30 unit SC BID 10/13/18 Melatonin 20 mg PO QHS PRN 10/13/18 Sertraline HCl 100 mg PO DAILY 10/13/18 hydrALAZINE [Apresoline] 25 mg PO TID 10/13/18 Primary Care Physician: Care Physician,No Primary [NON-STAFF] - Disposition: Acute care Hospital Minutes spent on discharge:: 50 Patient Condition:: Stable Medical Necessity - Tobacco Use Smoking Status: Never smoker Tobacco Use: Non-smoker Meaningful Use Info Meaningful Use Diagnoses (Choose all that apply): None applicable Code Visit Inpatient E AND M: 64948 Disch Hosp 10/19/18 1311 <Electronically signed by Octavio Alvarez DO> Date Octavio Alvarez DO Cosigner Signature (if applicable): Date CC: Jackelin Burger; Octavio Alvarez DO; OUT OF TOWN DOCTOR Signed BEDSIDE GLUCOSE Collected: 10/19/2018 Status: F Source: [place] 6:59 AM [facility] REPOSITORY TYPE CODE TESTS RESULT OUT OF REFERENCE UNITS RANGE LAB L501.080 70-110 mg/dL High BEDSIDE GLU 125 Result Comment: MANAGEMENT OF PATIENT CARE PER NURSING PROTOCOL Performed By: #### L501.080 #### [facility] Point of Care [address] [place] [address] BASIC METABOLIC Collected: 10/19/2018 Status: F Source: [place] PROFILE (BMP) 5:40 AM [facility] REPOSITORY Order Comment: SPECIMEN OBTAINED FROM LINE DRAW TYPE CODE TESTS RESULT OUT OF RANGE REFERENCE UNITS LAB L501.0100 74-106 mg/dL High GLU 127 Result Comment: Fasting Glucose result greater than or equal to 126 mg/dL suggests DIABETES MELLITUS per A.D.A. criteria. Please note revised GLUCOSE reference range effective 2017. LAB L501.1000 7-18 mg/dL High BUN 90 LAB L501.1100 0.70-1.30 mg/dL High CREAT,SERUM 5.43 Result Comment: The validity of the calculated GFR AND GFRAA in patients over 70 years has not been determined. Clinical correlation is essential. LAB L501.1110 >60 mL/min Low EST GFR 11 Result Comment: Non- GFR Calc LAB L501.1115 >60 mL/min Low EST GFR - AA 14 Result Comment: GFR Calc LAB L501.1255 ml/min Normal Estimated CRCL 14.29 LAB L501.1300 10-20 RATIO Normal BUN/CRE 16.6 LAB L501.2200 8.5-10 mg/dL Normal .1 CA 8.7 LAB L501.5300 136-14 mmol/L Low 5 NA 134 LAB L501.5600 3.5-5. mmol/L High 1 K 5.7 LAB L501.5900 98-107 mmol/L Low CL 95 LAB L501.6100 21.0-3 mmol/L Normal 2.0 CO2 22.0 LAB L501.6200 5-15 High GAP 17 Performed By: #### L500.2500 #### [facility] [address] [place], [address] CBC W/DIFF, AUTOMATED Collected: 10/19/2018 Status: F Source: [place] 5:40 AM [facility] REPOSITORY Order Comment: SPECIMEN OBTAINED FROM LINE DRAW TYPE CODE TESTS RESULT OUT OF RANGE REFERENCE UNITS LAB L100.1000 4.4-11.0 K/mm3 High WBC 12.8 LAB L100.1200 4.6-6.2 M/mm3 Low RBC 3.14 LAB L100.1300 13.0-16.5 g/dl Low HGB 8.8 LAB L100.1400 40-54 % Low HCT 27.4 LAB L100.1500 80-94 fL Normal MCV 87.3 LAB L100.1600 27.0-32.0 pg Normal MCH 28.0 LAB L100.1700 32-36 g/gl Normal MCHC 32.1 LAB L100.1810 11.6-14.6 % High RDW CV 15.7 LAB L100.1820 35.1-43.9 fl High RDW SD 50.4 LAB L100.1900 150-450 K/mm3 Normal PLT 172 LAB L100.2000 6.2-12.0 fl Normal MPV 9.9 LAB L100.2100 47-70 % High NEUT% 88.2 LAB L100.2200 19-41 % Low LY% 4.8 LAB L100.2300 0-10 % Normal MONO% 6.5 LAB L100.2400 0-5 % Normal EO% 0.2 LAB L100.2500 0-1 % Normal BASO% 0.1 LAB L100.2550 0.0-0.9 % Normal IM GRAN % 0.200 Result Comment: IG% - Immature Granulocytes (promyelocytes, myelocytes and metamyelocytes) > 1% indicates that a LEFT SHIFT is Present. LAB L100.2620 2.0-7.7 X10 3/uL High Absolute Neut 11.3 LAB L100.2720 0.83-4.51 X10 3/ul Low Absolute Lymph 0.62 Performed By: #### L100.0100, L300.3900, L300.4310 #### [facility] [address] [place], [place], [id number] PROTHROMBIN TIME W/INR Collected: 10/19/2018 Status: F Source: [place] 5:40 AM [facility] REPOSITORY Order Comment: SPECIMEN OBTAINED FROM LINE DRAW TYPE CODE TESTS RESULT OUT OF RANGE REFERENCE UNITS LAB L300.4150 11.7-14.9 SECONDS High PROTIME 15.4 LAB L300.4200 Normal INR 1.2 Performed By: #### L100.0100, L300.3900, L300.4310 #### [facility] [address] [place], [address] PARTIAL THROMBOPLAST Collected: 10/19/2018 Status: F Source: [place] TIME 5:40 AM [facility] REPOSITORY Order Comment: SPECIMEN OBTAINED FROM LINE DRAW TYPE CODE TESTS RESULT OUT OF RANGE REFERENCE UNITS LAB L300.4310 24.1-36.2 Seconds Normal PTT 31.7 Performed By: #### L100.0100, L300.3900, L300.4310 #### [facility] [address] [place], [address] BEDSIDE GLUCOSE Collected: 10/19/2018 Status: F Source: [place] 4:17 AM [facility] REPOSITORY TYPE CODE TESTS RESULT OUT OF REFERENCE UNITS RANGE LAB L501.080 70-110 mg/dL High BEDSIDE GLU 134 Result Comment: MANAGEMENT OF PATIENT CARE PER NURSING PROTOCOL Performed By: #### L501.080 #### [facility] Point of Care [address] [place], [place] [id number] BEDSIDE GLUCOSE Collected: 10/18/2018 Status: F Source: [place] 10:03 PM [facility] REPOSITORY TYPE CODE TESTS RESULT OUT OF REFERENCE UNITS RANGE LAB L501.080 70-110 mg/dL High BEDSIDE GLU 141 Result Comment: MANAGEMENT OF PATIENT CARE PER NURSING PROTOCOL Performed By: #### L501.080 #### [facility] Point of Care [address] [place] [address] AMMONIA Collected: 10/18/2018 Status: F Source: [place] 3:50 PM [facility] REPOSITORY TYPE CODE TESTS RESULT OUT OF RANGE REFERENCE UNITS LAB L503.5510 11-32 umol/L Normal AMMONIA 24.0 Performed By: #### L503.5510 #### [facility] [address] [place], [place], [id number] BEDSIDE GLUCOSE Collected: 10/18/2018 Status: F Source: [place] 3:41 PM [facility] REPOSITORY TYPE CODE TESTS RESULT OUT OF REFERENCE UNITS RANGE LAB L501.080 70-110 mg/dL High BEDSIDE GLU 134 Result Comment: MANAGEMENT OF PATIENT CARE PER NURSING PROTOCOL Performed By: #### L501.080 #### [facility] Point of Care [address] [place] [address] ECHO, COMPLETE W/ Observed: 10/18/2018 Status: F Source: [place] CONTRAST 12:54 PM [facility] REPOSITORY [facility] Cardiovascular Services [address] [place] [address] Echo Complete W/ Contrast 10/18/18 0950 MR#: [id number] Acct: [id number] Name: JADA COLUNGA Rep #: [id number] : 1955 62 From: Gumaro Ott MD Attending Dr: Octavio Alvarez DO Status: ADM IN Ordering Dr: Gumaro Ott MD Date: 10/18/18 Location: U Sex: M C Admitted: 10/13/18 Reason For Study: CAD/ASHD Procedure This was a 2D Doppler, Color Flow transthoracic echocardiogram. The study was technically difficult. Contrast injection was performed. Exam performed portable in patient room. Left Ventricle Mildly dilated left ventricle. Mild concentric left ventricular hypertrophy. Mild to moderate segmental systolic dysfunction (see wall motion). The estimated ejection fraction is 45 %. There is evidence of diastolic dysfunction. Basal inferoseptal: Severely Hypokinetic. Basal anteroseptal: Severely Hypokinetic. Mid-Anterior : Hypokinetic. Mid-Lateral : Hypokinetic. Mid-Posterior: Hypokinetic. Mid-inferoseptal : Severly Hypokinetic. Mid-anteroseptal : Hypokinetic. Anterior Mcalister : Akinetic. Inferior Mcalister : Hypokinetic. Lateral Mcalister : Hypokinetic. Septal Mcalister : Hypokinetic. Right Ventricle Normal RV size. ICD or pacer leads identified within the right ventricle. Normal systolic function. Atria The left atrium is moderately enlarged. Normal right atrium. ICD or pacer leads identified within the right atrium. No doppler evidence for ASD. Mitral Valve There is no mitral annular calcification. Normal mitral valve. Mild-Moderate (1-2+) mitral valve insufficiency. Tricuspid Valve Normal tricuspid valve. Mild tricuspid valve insufficiency. Right ventricular systolic pressure estimated to be 37 mmHg. Aortic Valve Trisinus/trileaflet aortic valve. Mild diffuse aortic valve thickening. Pulmonic Valve The pulmonic valve is not well visualized. Trivial pulmonic valve insufficiency. Great Vessels Borderline enlarged aortic root. Pericardium/Pleural No pericardial effusion. Medication Diluted definity 2ml given slow IV push to enhance endocardial definition. MMode/2D Measurements AND Calculations LVIDd: 5.6 cm IVSd: 1.3 cm Ao root diam: 3.9 cm LVIDs: 3.6 cm LVPWd: 1.4 cm LA dimension: 5.3 cm FS: 36.3 % LAV(MOD-bp): 83.8 ml LVAd ap4: 36.3 cm2 SV(MOD-sp4): 72.3 ml LAV(MOD-bp) Indexed: 36.9 ml/m2 EDV(MOD-sp4): 128.6 ml LAV(MOD-sp2): 71.1 ml EDV(sp4-el): 129.4 ml LAV(MOD-sp4): 88.2 ml LVAs ap4: 23.0 cm2 ESV(MOD-sp4): 56.3 ml ESV(sp4-el): 57.7 ml EF(MOD-sp4): 56.2 % EF(sp4-el): 55.4 % SV(sp4-el): 71.7 ml LA A4 area: 26.5 cm2 RA A4 area: 18.8 cm2 Time Measurements MV dec time: 0.32 sec Doppler Measurements AND Calculations MV E max ashok: 102.1 cm/sec Lat Peak E' Ashok: 5.5 cm/sec MV V2 max: 113.0 cm/sec MV A max ashok: 29.7 cm/sec E/E' lat: 18.6 MV max P.1 mmHg MV E/A: 3.4 MV V2 mean: 52.2 cm/sec MV mean P.4 mmHg MV V2 VTI: 49.6 cm MV P1/2t max ashok: 113.0 cm/sec Ao V2 max: 104.9 cm/sec LV V1 max: 87.2 cm/sec MV P1/2t: 165.8 msec Ao max P.4 mmHg LV V1 max P.0 mmHg MV dec slope: 199.6 cm/sec2 MVA(P1/2t): 1.3 cm2 PA V2 max: 83.7 cm/sec TR max ashok: 271.2 cm/sec TR max P.4 mmHg Interpretation Summary The study was technically difficult. Contrast injection was performed. Mildly dilated left ventricle. Mild to moderate segmental systolic dysfunction (see wall motion). The estimated ejection fraction is 45 %. Mild concentric left ventricular hypertrophy. The left atrium is moderately enlarged. Mild-Moderate (1-2+) mitral valve insufficiency. Mild tricuspid valve insufficiency. Mild diffuse aortic valve thickening. Trivial pulmonic valve insufficiency. Borderline enlarged aortic root. Right ventricular systolic pressure estimated to be 37 mmHg. There is evidence of diastolic dysfunction. ICD or pacer leads identified within the right atrium ICD or pacer leads identified within the right ventricle. . Ordering Physician: Gumaro Ott Performed By: Gilmer Mejia RCS 10/18/18 1253 Date Gumaro Ott MD CC: Octavio Alvarez DO; OUT OF TOWN DOCTOR; Gumaro Ott MD Date Dictated: 10/18/18 0950 Date Transcribed: 10/18/18 1253 Software Developer Mid Level: Signed CONSULTATION Observed: 10/18/2018 Status: F Source: [place] 12:01 PM [facility] REPOSITORY [facility] Medical Records Department [address] [place] [address] Consultation 10/18/18 1139 MR#: [id number] Acct: [id number] Name: JADA COLUNGA Rep #: [id number] : 1955 62 From: Gumaro Ott MD PCP: OUT OF TOWN DOCTOR Status: ADM IN Location: [place] [id number] Problem List (1) CAD (coronary artery disease) Status: Chronic Comment: extensive disease multiple stents (2) S/P PTCA (percutaneous transluminal coronary angioplasty) Status: Chronic (3) Hx of CABG Status: Chronic (4) Cardiomyopathy Status: Chronic Qualifiers: Cardiomyopathy type: ischemic Qualified Code(s): I25.5 - Ischemic cardiomyopathy (5) Chronic CHF (congestive heart failure) Status: Chronic Comment: ef=25% as of 04/04 (6) ICD (implantable cardioverter-defibrillator) in place Status: Chronic (7) Hyperlipidemia Status: Chronic (8) Benign hypertension Status: Chronic (9) DM type 2 (diabetes mellitus, type 2) Status: Chronic (10) Carotid artery stenosis Status: Chronic Comment: R CEA (11) DENISHA (acute kidney injury) Status: Acute (12) Cellulitis of right heel Status: Acute Reason for Consult Date of Consultation: 10/18/18 History of Present Illness: The patient is a 62 year old male who previously been evaluated by Faisal Rg MD of the [facility] and currently follows with cardiology in [place], [place], who is referred for evaluation of his cardiovascular status which has included underlying CAD, PCI, CABG, ischemic mediated cardiomyopathy, chronic systolic CHF, and single chamber ICD superimposed on hyperlipidemia, hypertension, diabetes mellitus, carotid artery disease, acute renal insufficiency, and acute lower extremity cellulitis with concerns of possible bradycardia/hypotension. The patient was brought to the hospital for concerns of a lower extremity cellulitis. He has been receiving medical management. He was subsequently noted to have no new acute coronary syndrome. However there is concerns that he became somewhat bradycardic and hypotensive. Also. More challenging to arouse. He was placed in the PCU where he underwent medical management with removal of any rate limiting medications, the addition of atropine, and the addition of IV dopamine. He was noted to be in what appeared to be an underlying sinus rhythm/sinus bradycardia with a first- degree AV block with ventricular rates approaching 40 bpm as well as intermittent ventricular paced rhythm at approximately 40 bpm. He has been somewhat challenging to arouse. He will eventually open his eyes and speak. He mumbles. He knows he is being followed by cardiology in [place], [place]. He does not appear to complain of ongoing chest discomfort or acute shortness of breath or dyspnea. He does not recall having any obvious palpitations or ICD discharge. Without ongoing verbal interaction he quickly returns to sleep. He underwent laboratory studies. There were concerns of hypoglycemia. He was administered D50. His glucose level improved. However his level of alertness did not improved. An ABG was performed. He was noted to have evidence of acidosis with a pH of 7.26 with a PCO2 of 53 and a PO2 of 70. This was despite O2 nasal cannula. He was then placed back on BiPAP. He was also noted to have increasing BUN and creatinine levels thus raising concerns of possible uremia producing symptoms as well. Nephrology has been reconsulted to evaluate the patient. He has been on medical management including antibiotics for his cellulitis therapy. He is pending further cardiovascular evaluation with a transthoracic echocardiogram. Additional cardiovascular medical records have been requested for continuity of care. [] Past Medical History Allergies/Adverse Reactions: Allergies metoclopramide HCl [From Reglan] Adverse Reaction (Verified 10/13/18 12:27) goofy, anxious, elevated BP ondansetron HCl [From Zofran] Adverse Reaction (Verified 10/13/18 12:27) goofy, anxious, elevated BP Sassucr-Puz-Psh Reductase Inhibitor Adverse Reaction (Verified 10/13/18 16:05) rhabdomyolosis Home Medications: Ambulatory Orders Medication Instructions Recorded Clopidogrel Bisulfate [Plavix] 75 mg PO DAILY 02/08/15 Past Medical History (Chronic Problems): Chronic Problems S/P PTCA (percutaneous transluminal coronary angioplasty) (Chronic) Cardiomyopathy (Chronic) ICD (implantable cardioverter-defibrillator) in place (Chronic) mediport placement (Chronic) Hyperlipidemia (Chronic) DM type 2 (diabetes mellitus, type 2) (Chronic) Chronic CHF (congestive heart failure) (Chronic) ef=25% as of 04/04 Carotid artery stenosis (Chronic) R CEA CAD (coronary artery disease) (Chronic) extensive disease multiple stents Hx of CABG (Chronic) hx epidural abscess (Chronic) Obesity (Chronic) Benign hypertension (Chronic) Surgical History: appendectomy, cataract, cholecystectomy, coronary bypass surgery - 2004 - [place], herniorrhaphy, tonsillectomy, - - Cardiac stent placement 24 (according to patient), right carotid endarterectomy. - *Family History Maternal History Items: No pertinent history Paternal History Items: Heart Disease - of an UT at age 62 Sibling History Items: No pertinent history Lives: With Family Smoking Status: Never smoker Tobacco Use: Non-smoker Alcohol: None Review of Systems - Review of Systems General: Reports: - - Lethargic Cardiovascular: Denies: Chest Discomfort, Shortness of Breath, Orthopnea, PND, Palpitations, Lightheadedness, Dizziness, Near Syncope, Syncope Subjectve: This is an obese 62-year-old white male wearing O2 nasal cannula and subsequently BiPAP who appears to be lethargic and difficult to arouse noting a right carotid endarterectomy scar and a median sternotomy scar. Objective: Vital Signs Temp Pulse Resp BP Pulse Ox 98.0 F 43 L 10 L 97/57 L 96 10/18/18 07:00 10/18/18 11:00 10/18/18 11:00 10/18/18 11:00 10/18/18 11:00 Oxygen Flow Rate (L/min) 2 Oxygen Delivery Method CPAP Weight: 250 lb 4.794 oz Body Mass Index (BMI) 36.9 Finger Stick Blood Glucose 42 Intake and Output for Last 24 Hours Intake Total 2288 / 2288 2460 / 2460 1419.9 / 1419.9 Output Total 600 / 600 600 / 600 Balance 1688 / 1688 1860 / 1860 1419.9 / 1419.9 General: Lethargic HEENT: Atraumatic, Normocephalic Neck: Supple Lungs: - - No obvious rales or rhonchi Cardiovascular: Regular Rhythm, Normal S1, Normal S2 Abdomen: Bowel Sounds Present, Soft, Non Tender Extremities: Mild RLE Edema, Mild LLE Edema Psych/Mental Status: - - With allergic 10/18/18 02:20: WBC 9.5, RBC 2.87 L, Hgb 8.0 L, Hct 25.7 L, MCV 89.5, MCH 27.9, MCHC 31.1 L, RDW 16.2 H, RDW Differential 53.3 H, Plt Count 133 L, MPV 9.3, Immature Gran % (Auto) 0.200, Neut % (Auto) 75.1 H, Lymph % (Auto) 9.3 L, Denali % (Auto) 11.3 H, Eos % (Auto) 3.7, Baso % (Auto) 0.4, Absolute Neuts (auto) 7.1, Total Counted Not Reportable 10/18/18 02:20: Sodium 134 L, Potassium 4.9, Chloride 101, Carbon Dioxide 24.0, Anion Gap 9, BUN 77 H, Creatinine 4.42 H, Est GFR (MDRD) Af Amer 18 L, Est GFR (MDRD) Non-Af 15 L, BUN/Creatinine Ratio 17.4, Glucose 118 H, Calcium 8.0 L 10/18/18 10:16: pH 7.26 L, Bicarbonate Actual 23.8, POC Total CO2 25, Base Excess -3 L, O2 Saturation 91 L, ABG pCO2 53.0 H, ABG pO2 70 L, Margie Test NA Rhythm: As noted above EKG: This rhythm/sinus bradycardia; first-degree AV block; right bundle branch block pattern ECHO: 2015: [facility]: Left ventricle: LVEF 30-35%; left atrium dilated; Cardiac Cath: 03/24/2015: [facility]: Left main coronary artery normal; LAD occluded; LCx proximal stent patent with distal 80% stenosis; RCA with distal 70% stenosis; LV dysfunction with an LVEF of 20-25% PCI: 03/24/2015: [facility]: PTCA/EVERTON to the LCx system and PTCA/EVERTON to the right PDA system CT Surgery: Remote: Reported as having a PARK to the LAD and an SVG to diagonal branch-previously reported as occluded CXR: Preliminary evaluation: Single chamber ICD: Please see official report Assessment/Plan 1. CAD status post PCI status post CABG The patient has a history of underlying CAD. He is undergone PCI and CABG as previously noted. He did not present with symptoms of an acute coronary syndrome. He has not had objective findings, thus far, compatible with an acute coronary syndrome. He has been good with medical management. He can be monitored for any acute changes that would require further evaluation and/or care. 2. Ischemic mediated cardiomyopathy The patient does have a history of an underlying ischemic mediated cardiomyopathy. He has diminished LV systolic function. It is unclear whether this is significantly changed as his most recent cardiovascular evaluation available for review. Thus he will have a follow-up transthoracic echocardiogram to reassess his left ventricular wall motion and systolic function especially in light of his recent noncardiovascular issues and findings. This may help guide further evaluation and care. 3. Chronic systolic CHF The patient was not reported on admission to have acute on chronic systolic CHF. It is unclear whether or not his underlying cardiovascular disease process with respect to his vasculature issues, LV dysfunction issues, etc. are participating in his current event with respect to his lethargy etc. Thus at the present time his medications will be adjusted based upon any acute concerns. His left ventricle will be reassessed as described above. 4. ICD The patient does have a single-chamber ICD. It appears he has been in sinus rhythm/sinus bradycardia with a low ventricular rate as well as intermittent ventricular paced rhythm. The patient does not appear to know the name of his ICD. There are no ICD records available for review. A request has been made from [facility] in [place], [place] for additional cardiovascular medical record for continuity of care purposes. If need be, once the identity of his ICD is known, a request can be made to have his ICD interpreted. The interim, based upon concerns of his bradycardia dysrhythmia and whether or not it is contributing to any form of hypotension his rate limiting medications have been placed on hold. His ICD does appear to function as he has had episodes of ventricular paced rhythm at approximately 40 bpm. However, in the interim, he is also been placed on IV dopamine to assist with his underlying rate and blood pressure control. 5. Hyperlipidemia The patient will continue lipid-lowering therapy as deemed appropriate. 6. Hypertension In the patient's blood pressure has been transiently low. Is unclear whether this is related to his medications, his cardiovascular status, his acid base issues, previous infection and concerns of sepsis, etc. Thus there may be multiple etiologies. From a cardiac standpoint medications that may affect his blood pressure adversely by lowering it have been placed on hold. He will undergo further cardiovascular evaluation. In the interim he has been placed on IV dopamine therapy pending further evaluation. 7. Diabetes The patient will continue evaluation care per internal medicine. 8. Carotid artery disease The patient does have peripheral arterial occlusive disease. He is status post right carotid endarterectomy. He will continue risk factor evaluation care as deemed appropriate. 9. Acute renal insufficiency The patient's BUN and creatinine continue to elevate. There is concern this may be contributing to his lethargy. He is going to be reassessed by nephrology for consideration for hemodialysis therapy. 10. Cellulitis He has been treated medically for this. However he will be monitored for any obvious progression of infectious disease related issue that may contribute to his current state of lethargy. Overall the patient will continue evaluation and care. His hemodynamic changes may be multifactorial in etiology. His lethargy may be multifactorial in etiology. Thus he is being evaluated by multiple subspecialties at this time. Comment: The above was discussed and reviewed with Dr. Alvarez. This note was generated using a voice recognition system and there may be incorrect words, spelling or punctuation that were not noted when reviewing the office note prior to saving. 10/18/18 1201 <Electronically signed by Gumaro Ott MD> Date Gumaro Ott MD Cosigner Signature (if applicable): Date CC: Jeremie Blankenship DPM; OUT OF TOWN DOCTOR; Gumaro Ott MD; Raúl Mendes MD; Aaron Cool MD Signed BEDSIDE GLUCOSE Collected: 10/18/2018 Status: F Source: [place] 11:40 AM [facility] REPOSITORY TYPE CODE TESTS RESULT OUT OF RANGE REFERENCE UNITS LAB L501.080 70-110 mg/dL Normal BEDSIDE GLU 100 Result Comment: MANAGEMENT OF PATIENT CARE PER NURSING PROTOCOL Performed By: #### L501.080 #### [facility] Point of Care [address] [place], [place] [id number] BLOOD GASES BY CPS Collected: 10/18/2018 Status: F Source: [place] 10:16 AM [facility] REPOSITORY TYPE CODE TESTS RESULT OUT OF RANGE REFERENCE UNITS LAB L9000.9990 Normal BLD GAS TYPE ART LAB L9001.1000 R Normal SITE Brachial LAB L9001.1010 NA Normal MARGIE TEST LAB L9001.1050 O2 Normal Delivery Dev Nasal Can LAB L9001.1055 /min Normal LPM 2.0 LAB L9001.1104 Normal Results To HOSP MD LAB L9001.1105 Normal Time Given 1020 LAB L9001.1110 7.35-7.45 Low pH - I-STAT 7.26 LAB L9001.1210 35-45 mmHg High pCO2 - ISTAT 53.0 LAB L9001.1310 75-100 mmHG Low 70 PO2 I-STAT LAB L9001.2300 22-26 mmol/L Normal HCO3 ISTAT 23.8 LAB L9001.2400 -2 to +2 mmol/L Low BE -3 ISTAT LAB L9001.2415 mmol/L 25 Normal TOTAL CO2 ISTAT LAB L9001.2425 95-99 % Low 91 SO2 ISTAT Performed By: #### L9000.0800 #### [facility] Point of Care [address] [place], [place] [id number] BEDSIDE GLUCOSE Collected: 10/18/2018 Status: F Source: [place] 9:47 AM [facility] REPOSITORY TYPE CODE TESTS RESULT OUT OF REFERENCE UNITS RANGE LAB L501.080 70-110 mg/dL High BEDSIDE GLU 157 Result Comment: MANAGEMENT OF PATIENT CARE PER NURSING PROTOCOL Performed By: #### L501.080 #### [facility] Point of Care [address] [place] [address] BEDSIDE GLUCOSE Collected: 10/18/2018 Status: F Source: [place] 8:52 AM [facility] REPOSITORY TYPE CODE TESTS RESULT OUT OF REFERENCE UNITS RANGE LAB L501.080 70-110 mg/dL Low BEDSIDE GLU 53 Result Comment: MANAGEMENT OF PATIENT CARE PER NURSING PROTOCOL Performed By: #### L501.080 #### [facility] Point of Care [address] [place], [place] [id number] BEDSIDE GLUCOSE Collected: 10/18/2018 Status: F Source: [place] 7:28 AM [facility] REPOSITORY TYPE CODE TESTS RESULT OUT OF REFERENCE UNITS RANGE LAB L501.080 70-110 mg/dL Low BEDSIDE GLU 60 Result Comment: MANAGEMENT OF PATIENT CARE PER NURSING PROTOCOL Performed By: #### L501.080 #### [facility] Point of Care [address] [place] [address] BEDSIDE GLUCOSE Collected: 10/18/2018 Status: F Source: [place] 7:07 AM [facility] REPOSITORY TYPE CODE TESTS RESULT OUT OF REFERENCE UNITS RANGE LAB L501.080 70-110 mg/dL Low BEDSIDE GLU 50 Result Comment: Snack Given MANAGEMENT OF PATIENT CARE PER NURSING PROTOCOL Performed By: #### L501.080 #### [facility] Point [facility] [address] [place] [address] BEDSIDE GLUCOSE Collected: 10/18/2018 Status: F Source: [place] 6:48 AM [facility] REPOSITORY TYPE CODE TESTS RESULT OUT OF REFERENCE UNITS RANGE LAB L501.080 70-110 mg/dL Low BEDSIDE GLU 45 Result Comment: Snack Given MANAGEMENT OF PATIENT CARE PER NURSING PROTOCOL Performed By: #### L501.080 #### [facility] Point of Care [address] [place], [place] [address] CBC W/DIFF, AUTOMATED Collected: 10/18/2018 Status: F Source: [place] 2:20 AM [facility] REPOSITORY TYPE CODE TESTS RESULT OUT OF RANGE REFERENCE UNITS LAB L100.1000 4.4-11.0 K/mm3 Normal WBC 9.5 LAB L100.1200 4.6-6.2 M/mm3 Low RBC 2.87 LAB L100.1300 13.0-16.5 g/dl Low HGB 8.0 LAB L100.1400 40-54 % Low HCT 25.7 LAB L100.1500 80-94 fL Normal MCV 89.5 LAB L100.1600 27.0-32.0 pg Normal MCH 27.9 LAB L100.1700 32-36 g/gl Low MCHC 31.1 LAB L100.1810 11.6-14.6 % High RDW CV 16.2 LAB L100.1820 35.1-43.9 fl High RDW SD 53.3 LAB L100.1900 150-450 K/mm3 Low PLT 133 LAB L100.2000 6.2-12.0 fl Normal MPV 9.3 LAB L100.2100 47-70 % High NEUT% 75.1 LAB L100.2200 19-41 % Low LY% 9.3 LAB L100.2300 0-10 % High MONO% 11.3 LAB L100.2400 0-5 % Normal EO% 3.7 LAB L100.2500 0-1 % Normal BASO% 0.4 LAB L100.2550 0.0-0.9 % Normal IM GRAN % 0.200 Result Comment: IG% - Immature Granulocytes (promyelocytes, myelocytes and metamyelocytes) > 1% indicates that a LEFT SHIFT is Present. LAB L100.2620 2.0-7.7 X10 3/uL Normal Absolute Neut 7.1 LAB L100.2720 0.83-4.51 X10 3/ul Normal Absolute Lymph 0.88 Performed By: #### L100.0100, L500.2500 #### [facility] [address] [place], [place], [id number] BASIC METABOLIC Collected: 10/18/2018 Status: F Source: [place] PROFILE (BMP) 2:20 AM [facility] REPOSITORY TYPE CODE TESTS RESULT OUT OF RANGE REFERENCE UNITS LAB L501.0100 74-106 mg/dL High GLU 118 Result Comment: Fasting Glucose result from 100 to 125 mg/dL suggests IMPAIRED HOMEOSTASIS per A.D.A. criteria. Please note revised GLUCOSE reference range effective 2017. LAB L501.1000 7-18 mg/dL High BUN 77 LAB L501.1100 0.70-1.30 mg/dL High CREAT,SERUM 4.42 Result Comment: The validity of the calculated GFR AND GFRAA in patients over 70 years has not been determined. Clinical correlation is essential. LAB L501.1110 >60 mL/min Low EST GFR 15 Result Comment: Non- GFR Calc LAB L501.1115 >60 mL/min Low EST GFR - AA 18 Result Comment: GFR Calc LAB L501.1255 ml/min Normal Estimated CRCL 17.55 LAB L501.1300 10-20 RATIO Normal BUN/CRE 17.4 LAB L501.2200 8.5-10 mg/dL Low .1 CA 8.0 LAB L501.5300 136-14 mmol/L Low 5 NA 134 LAB L501.5600 3.5-5. mmol/L Normal 1 K 4.9 LAB L501.5900 98-107 mmol/L Normal CL 101 LAB L501.6100 21.0-3 mmol/L Normal 2.0 CO2 24.0 LAB L501.6200 5-15 Normal GAP 9 Performed By: #### L100.0100, L500.2500 #### [facility] [address] [place], [place], [address] BEDSIDE GLUCOSE Collected: 10/17/2018 Status: F Source: [place] 8:42 PM [facility] REPOSITORY TYPE CODE TESTS RESULT OUT OF REFERENCE UNITS RANGE LAB L501.080 70-110 mg/dL High BEDSIDE GLU 160 Result Comment: MANAGEMENT OF PATIENT CARE PER NURSING PROTOCOL Performed By: #### L501.080 #### [facility] Point of Care [address] [place], [place] [id number] CONSULTATION Observed: 10/17/2018 Status: F Source: [facility] 1[facility]11 [facility] Medical Records Department [address] [place] [address] Consultation 10/17/18 1255 MR#: [id number] Acct: [id number] Name: JADA COLUNGA Rep #: [id number] : 1955 62 From: Aaron Cool MD PCP: OUT OF [facility] DOCTOR Status: ADM IN Y [place] [facility] [id number] Consultation - Renal 10/17/18 PCP/ Referring MD: Requesting physician: [] Primary care physician: Out of Town Doctor Reason for Consultation:: denisha ckd iiiB bsCR 1.88 - History of Present Illness History of Present Illness: The patient is a 62 year old M with DM-2 and CHF with r EF with EF 30 percent biventricular CKD IIIb with BScr 1.88 + proteinuria due to diabetic nephropathy with glomerulosclerosis on bumex 3mg BID on SSRI margaret inhibitor and off and on lasix admitted with heel ulcer +enterococcus and MRSA no evidence of OM we were consulted for DENISHA creatinine peaked 3.77 - Allergies Allergies: Allergies metoclopramide HCl [From Reglan] Adverse Reaction (Verified 10/13/18 12:27) goofy, anxious, elevated BP ondansetron HCl [From Zofran] Adverse Reaction (Verified 10/13/18 12:27) goofy, anxious, elevated BP Znknall-Chx-Wrx Reductase Inhibitor Adverse Reaction (Verified 10/13/18 16:05) rhabdomyolosis - Current Medications Current Medications: Current Medications Acetaminophen (Tylenol) 650 mg PO Q6H PRN PRN PRN Reason: Mild Pain (1-3)/Temp > 100.7 F Last Admin: 10/14/18 21:38 Dose: 650 mg Hydrocodone Bitart/Acetaminophen ([place] 5mg-325mg) 2 tablet PO Q6H PRN PRN PRN Reason: SEVERE PAIN (6-10/10) Last Admin: 10/17/18 06:33 Dose: 2 tablet Albuterol Sulfate (Ventolin Aerosols) 2.5 mg INHALATION Q2H PRN PRN PRN Reason: DYSPNEA Last Admin: 10/14/18 16:34 Dose: 2.5 mg Amlodipine Besylate (Norvasc) 10 mg PO DAILY [facility] Last Admin: 10/17/18 11:33 Dose: 10 mg Amoxicillin/Clavulanate Potassium (Augmentin Tablet) 500 mg PO QAM [facility] Last Admin: 10/17/18 11:31 Dose: 500 mg Aspirin (Aspirin, Baby) 81 mg PO DAILY@0800 [facility] Last Admin: 10/17/18 11:31 Dose: 81 mg Atorvastatin Calcium (Lipitor) 80 mg PO QHS [facility] Last Admin: 10/16/18 23:01 Dose: 80 mg Carvedilol (Coreg) 25 mg PO BID [facility] Last Admin: 10/17/18 11:31 Dose: 25 mg Clopidogrel Bisulfate (Plavix) 75 mg PO DAILY [facility] Last Admin: 10/17/18 11:33 Dose: 75 mg Collagenase (Santyl) 1 applic TOPICAL DAILY [facility]; Protocol Last Admin: 10/17/18 11:33 Dose: 1 applicatio Duloxetine HCl (Cymbalta) 30 mg PO DAILY [facility] Last Admin: 10/17/18 11:31 Dose: 30 mg Ferrous Sulfate (Ferrous Sulfate) 325 mg PO QODAY@0800 [facility] Last Admin: 10/16/18 08:52 Dose: 325 mg Gabapentin (Neurontin) 600 mg PO TID [facility] Last Admin: 10/17/18 11:34 Dose: 600 mg Heparin Sodium (Porcine) (Heparin Na) 5,000 unit SC Q8 [facility] Last Admin: 10/17/18 06:32 Dose: 5,000 unit Hydralazine HCl (Apresoline) 25 mg PO TID [facility] Last Admin: 10/17/18 11:34 Dose: 25 mg Hydroxyzine Pamoate (Vistaril Pamoate Capsule) 25 mg PO TID PRN PRN PRN Reason: ANXIETY Last Admin: 10/14/18 05:34 Dose: 25 mg Sodium Chloride () 1,000 mls @ 100 mls/hr IV .Q10H [facility] Last Admin: 10/17/18 11:27 Dose: 100 mls/hr Insulin Glargine (Lantus (Bkc)) 30 units SC BID [facility] Last Admin: 10/17/18 11:32 Dose: 30 u Insulin Human Lispro (Humalog Kwikpen (Bkc)) 0 unit SC ACHS [facility]; Protocol Last Admin: 10/17/18 11:34 Dose: Not Given Isosorbide Mononitrate (Imdur) 30 mg PO BID [facility] Last Admin: 10/17/18 11:32 Dose: 30 mg Levofloxacin (Levaquin Tablet) 250 mg PO Q48H [facility] Melatonin (Melatonin) 20 mg PO QHS PRN PRN Reason: SLEEP Nutritional Formula (Lactose Free) (Glucerna Shake) 120 ml PO 4X/DAY [facility] Last Admin: 10/17/18 11:32 Dose: 120 ml Promethazine HCl (Phenergan) 6.25 mg IV Q6H PRN PRN PRN Reason: NAUSEA/VOMITING Last Admin: 10/16/18 20:44 Dose: 6.25 mg Sertraline HCl (Zoloft) 100 mg PO DAILY [facility] Last Admin: 10/17/18 11:34 Dose: 100 mg Simethicone (Mylicon) 80 mg PO PCHS [facility] Last Admin: 10/17/18 11:31 Dose: 80 mg Sodium Chloride () 5 - 15 ml IV UD PRN PRN Reason: SALINE FLUSH Last Admin: 10/17/18 11:28 Dose: 10 ml Tizanidine HCl (Zanaflex) 8 mg PO TID PRN PRN Reason: SPASMS Last Admin: 10/16/18 20:44 Dose: 8 mg - Past Medical History Past Medical History (Chronic Problems): Chronic Problems mediport placement (Chronic) Hyperlipidemia (Chronic) DM type 2 (diabetes mellitus, type 2) (Chronic) Chronic CHF (congestive heart failure) (Chronic) ef=25% as of 04/04 Carotid artery stenosis (Chronic) R CEA CAD (coronary artery disease) (Chronic) extensive disease multiple stents Hx of CABG (Chronic) hx epidural abscess (Chronic) Obesity (Chronic) Benign hypertension (Chronic) - Past Surgical History Surgical History: appendectomy, cataract, cholecystectomy, coronary bypass surgery - 2004 - [place], herniorrhaphy, tonsillectomy, - - Cardiac stent placement 24 (according to patient), right carotid endarterectomy. - Social History Smoking Status: Never smoker Alcohol: None - Family History Maternal History Items: No pertinent history Paternal History Items: Heart Disease - of an UT at age 61 Sibling History Items: No pertinent history Review of Systems Constitutional: Denies: Chills, Fever, Weight Change HEENT: Reports: Difficulty Hearing Cardiovascular: Reports: Orthopnea, Palpitations Respiratory: Reports: Shortness of Breath Gastrointestinal: Reports: Dyspepsia Musculoskeletal: Reports: Joint stiffness, Joint swelling, Leg Pain Skin: Reports: Wounds Neurological: Denies: Numbness, Tingling, Focal weakness Psychiatric: Denies: Anxiety, Depression, Homicidal Ideations, Suicidal Ideations Hematologic/ Lymphatic: Reports: Adenopathy Patient Problems: Active and Suspected Problems DENISHA (acute kidney injury) (Acute) Cellulitis of right heel (Acute) - Physical Exam General: Alert, Oriented x3, Cooperative HEENT: Atraumatic, PERRLA, EOMI, Normocephalic Neck: Supple, No JVD, Negative Carotid Bruits Lungs: Clear to auscultation, Normal air movement Cardiovascular: Regular rate, No murmurs Abdomen: Bowel Sounds Present, Soft, Non Tender Extremities: No edema, Capillary Refill Less than 3 Seconds Skin: No rashes, No breakdown Musculoskeletal: No Tenderness to Palpation of Joints or Extremities Neurological: Cranial nerves II-XII grossly intact Psych/Mental Status: Normal Affect, Appropriate Vital Signs Temp Pulse Resp BP Pulse Ox 99.2 F H 60 18 112/56 L 95 10/17/18 02:08 10/17/18 11:34 10/17/18 02:08 10/17/18 06:39 10/17/18 02:08 Oxygen Flow Rate (L/min) 2 Oxygen Delivery Method Room Air Weight: 113.534 kg Body Mass Index (BMI) 36.9 Finger Stick Blood Glucose 42 Intake and Output for Last 24 Hours Intake Total 2219 / 2219 2288 / 2288 1907 / 1907 Output Total 300 / 300 600 / 600 100 / 100 Balance 1919 / 1919 1688 / 1688 1807 / 1807 Microbiology Past 72 Hours 10/13/18 17:30 Gram Stain - Final Laboratory Tests Past 24 Hrs Sodium 136 Potassium 4.9 Chloride 102 Carbon Dioxide 22.0 Anion Gap 12 POC Glucose POC Glucose 75 118 H 50 L POC Glucose 117 H 141 H Assessment/Plan All Active Problems DENISHA (acute kidney injury) (Acute) Pain of right heel (Acute) Cellulitis of right heel (Acute) Non oliguric DENISHA On CKD IIIb Bscr 1.8 now peaked to 3.77 due to excessive diuresis and hemodynamic perturbation and vancomycin level high normal likley now ischaemia ATN and also his diabetic nephropathy is worsening -decrease IVF 50ml/hr and discontinue after 12 hrs -Hold margaret and arb -Hold NSAID -No IV contrast -Keep MAP>65 mmHg CHF -HFrEF - bumex 1 mg BID -hold acein -Keep I/O -500ml -Hold IVF after 12 hrs DM2 -fair control -continue lantus and SSI Cellulitis -on levaquin -on augumentin - R/o AIN -dose anbx e GFR 30ml/min 10/17/18 1311 <Electronically signed by Aaron Cool MD> Date Aaron Cool MD Cosigner Signature (if applicable): Date CC: Jeremie GAYM; OUT OF TOWN DOCTOR; Raúl Mendes MD; Aaron Cool MD Signed BEDSIDE GLUCOSE Collected: 10/17/2018 Status: F Source: [place] 11:26 AM [facility] REPOSITORY TYPE CODE TESTS RESULT OUT OF REFERENCE UNITS RANGE LAB L501.080 70-110 mg/dL High BEDSIDE GLU 122 Result Comment: MANAGEMENT OF PATIENT CARE PER NURSING PROTOCOL Performed By: #### L501.080 #### [facility] Point of Care [address] [place] [address] KIDNEY AND BLADDER Observed: 10/17/2018 Status: F Source: [place] 7:50 AM [facility] REPOSITORY [facility] Imaging Services [address] [place] [address] Kidney and Bladder MR#: [id number] Acct: [id number] Name: CRISTINEJADA W Rep #: [id number] : 1955 M 62 From: Eric Pandey DO PCP: OUT OF TOWN DOCTOR Status: ADM IN Study: Kidney and Bladder Date of Exam: 10/17/18 Exam# [id number] Ordering Dr: Octavio Alvarez DO STUDY: RENAL ULTRASOUND - COMPLETE REASON FOR EXAM: Male, 62 years old. Acute renal failure. No urination for days. TECHNIQUE: Ultrasound evaluation of the kidneys was performed with real-time and static weiss-scale imaging. COMPARISON: None. FINDINGS: RIGHT KIDNEY: Normal location of the right kidney, which is normal in size. The right kidney measures 11.5 cm. There is a normal cortex of the right kidney. The renal cortex measures 2.3 cm. There is no right renal mass or cyst. There are no right renal calculi. There is no right hydronephrosis. DISTAL RIGHT URETER: There is non-visualization of the distal right ureter. There is no demonstrated right ureterovesical junction calculus. There is a visualized right ureteral jet. LEFT KIDNEY: Normal location of the left kidney, which is normal in size. The left kidney measures 11.4 cm. There is a normal cortex of the left kidney. The renal cortex measures 2.1 cm. There is no left renal mass or cyst. There are no left renal calculi. There is no left hydronephrosis. DISTAL LEFT URETER: There is non-visualization of the distal left ureter. There is no demonstrated left ureterovesical junction calculus. There is a visualized left ureteral jet. BLADDER: The distended urinary bladder has a volume of 108 ml. The empty urinary bladder has a volume of 0 ml. There is a normal wall thickness of the distended urinary bladder. There is no demonstrated mass within the urinary bladder. There are no demonstrated bladder calculi. Insult finding is a left pleural effusion. US/Kidney and Bladder IMPRESSION: Normal ultrasound of the kidneys and urinary bladder. Electronically Signed: Eric Pandey DO at 22:01 EST Tel [phone], Service support , CC: Octavio Alvarez DO; OUT OF TOWN DOCTOR Software Developer Mid Level: Signed BEDSIDE GLUCOSE Collected: 10/17/2018 Status: F Source: SANDRA 6:30 AM [facility] REPOSITORY TYPE CODE TESTS RESULT OUT OF RANGE REFERENCE UNITS LAB L501.080 70-110 mg/dL Normal BEDSIDE GLU 75 Result Comment: MANAGEMENT OF PATIENT CARE PER NURSING PROTOCOL Performed By: #### L501.080 #### [facility] Point [facility] [address] [place] [address] BASIC METABOLIC Collected: 10/17/2018 Status: F Source: SANDRA PROFILE (BMP) 5:46 AM [facility] REPOSITORY TYPE CODE TESTS RESULT OUT OF RANGE REFERENCE UNITS LAB L501.0100 74-106 mg/dL Low GLU 69 Result Comment: Please note revised GLUCOSE reference range effective 2017. LAB L501.1000 7-18 mg/dL High BUN 72 LAB L501.1100 0.70-1.30 mg/dL High CREAT,SERUM 3.77 Result Comment: The validity of the calculated GFR AND GFRAA in patients over 70 years has not been determined. Clinical correlation is essential. LAB L501.1110 >60 mL/min Low EST GFR 17 Result Comment: Non- GFR Calc LAB L501.1115 >60 mL/min Low EST GFR - AA 21 Result Comment: GFR Calc LAB L501.1255 ml/min Normal Estimated CRCL 20.58 LAB L501.1300 10-20 RATIO Normal BUN/CRE 19.1 LAB L501.2200 8.5-10 mg/dL Low .1 CA 8.4 LAB L501.5300 136-14 mmol/L Normal 5 NA 136 LAB L501.5600 3.5-5. mmol/L Normal 1 K 4.9 LAB L501.5900 98-107 mmol/L Normal CL 102 LAB L501.6100 21.0-3 mmol/L Normal 2.0 CO2 22.0 LAB L501.6200 5-15 Normal GAP 12 Performed By: #### L500.2500 #### [facility] [address] [place], [place], [address] BEDSIDE GLUCOSE Collected: 10/17/2018 Status: F Source: SANDRA 2:52 AM [facility] REPOSITORY TYPE CODE TESTS RESULT OUT OF REFERENCE UNITS RANGE LAB L501.080 70-110 mg/dL High BEDSIDE GLU 118 Result Comment: MANAGEMENT OF PATIENT CARE PER NURSING PROTOCOL Performed By: #### L501.080 #### [facility] [address] [place] [address] BEDSIDE GLUCOSE Collected: 10/17/2018 Status: F Source: SANDRA 2:14 AM [facility] REPOSITORY TYPE CODE TESTS RESULT OUT OF REFERENCE UNITS RANGE LAB L501.080 70-110 mg/dL Low BEDSIDE GLU 50 Result Comment: MANAGEMENT OF PATIENT CARE PER NURSING PROTOCOL Performed By: #### L501.080 #### [facility] [address] [place] [address] BEDSIDE GLUCOSE Collected: 10/16/2018 Status: F Source: SANDRA 10:49 PM [facility] REPOSITORY TYPE CODE TESTS RESULT OUT OF REFERENCE UNITS RANGE LAB L501.080 70-110 mg/dL High BEDSIDE GLU 117 Result Comment: MANAGEMENT OF PATIENT CARE PER NURSING PROTOCOL Performed By: #### L501.080 #### [facility] [address] [place] [address] BEDSIDE GLUCOSE Collected: 10/16/2018 Status: F Source: SANDRA 4:30 PM [facility] REPOSITORY TYPE CODE TESTS RESULT OUT OF REFERENCE UNITS RANGE LAB L501.080 70-110 mg/dL High BEDSIDE GLU 141 Result Comment: MANAGEMENT OF PATIENT CARE PER NURSING PROTOCOL Performed By: #### L501.080 #### [facility] [address] [place] [address] BEDSIDE GLUCOSE Collected: 10/16/2018 Status: F Source: SANDRA 11:30 AM [facility] REPOSITORY TYPE CODE TESTS RESULT OUT OF REFERENCE UNITS RANGE LAB L501.080 70-110 mg/dL High BEDSIDE GLU 160 Result Comment: MANAGEMENT OF PATIENT CARE PER NURSING PROTOCOL Performed By: #### L501.080 #### [facility] [address] [place] [address] BEDSIDE GLUCOSE Collected: 10/16/2018 Status: F Source: SANDRA 6:41 AM [facility] REPOSITORY TYPE CODE TESTS RESULT OUT OF RANGE REFERENCE UNITS LAB L501.080 70-110 mg/dL Normal BEDSIDE GLU 84 Result Comment: MANAGEMENT OF PATIENT CARE PER NURSING PROTOCOL Performed By: #### L501.080 #### [facility] [address] [place] [address] CREATININE, URINE Collected: 10/16/2018 Status: F Source: SAUSALITO 6:20 AM [facility] REPOSITORY TYPE CODE TESTS RESULT OUT OF RANGE REFERENCE UNITS LAB L502.0300 NO RANGE EST. mg/dL Normal URINE 116.00 CREAT Performed By: #### L502.0300 #### [facility] [address] [place], [address] UREA NITROGEN, URINE Collected: 10/16/2018 Status: F Source: [place]US[place] 6:20 AM [facility] REPOSITORY TYPE CODE TESTS RESULT OUT OF RANGE REFERENCE UNITS LAB L502.0715 NO RANGE EST. mg/dL Normal URINE 378 UREA Performed By: #### L502.0715 #### [facility] [address] [facility] [place], [address] URINALYSIS, COMPLETE Collected: 10/16/2018 Status: F Source: [place] 6:20 AM [facility] REPOSITORY Order Comment: How was Urine Obtained? CLEAN CATCH TYPE CODE TESTS RESULT OUT OF RANGE REFERENCE UNITS LAB L400.3000 Yellow COLOR Normal Yellow LAB L400.3050 Clear Normal CLARITY Clear LAB L400.3200 Normal mg/dl Normal GLUCOSE, UR Normal LAB L400.3300 Negative mg/dL Normal BILIRUBIN URINE Negative LAB L400.3400 Negative mg/dl Normal KETONE UR Negative LAB L400.3465 1.002-1.030 Normal SP.GR. DIPSTX 1.015 LAB L400.3550 5.0 - 8.0 pH UR Normal 5.0 LAB L400.3600 Negative mg/dl High PROT 15 DIPSTX LAB L400.3700 Normal mg/dl High 4 UROBILI LAB L400.3750 Negative Normal NITRITE UR Negative LAB L400.3780 Negative /ul Normal OCCULT BLOOD-UR Negative LAB L400.3800 Negative /ul LEUK Normal ESTERASE Negative LAB L400.4050 0-5 /hpf WBC 0 Normal SEEN LAB L400.4100 0-5 /hpf 0 Normal RBC-UA SEEN LAB L400.4150 0-5 /hpf SQUAM 0 Normal EPI SEEN LAB L400.4300 None Seen /hpf 0 Normal BACTERIA SEEN LAB L400.4350 <or=2+ /hpf 0 Normal MUCUS, URINE SEEN LAB L400.4900 1+ Normal AMORPHOUS Performed By: #### L400.0001 #### [facility] [place], [address] CBC W/DIFF, AUTOMATED Collected: 10/16/2018 Status: F Source: [place] 6:08 AM [facility] REPOSITORY TYPE CODE TESTS RESULT OUT OF RANGE REFERENCE UNITS LAB L100.1000 4.4-11.0 K/mm3 Normal WBC 9.4 LAB L100.1200 4.6-6.2 M/mm3 Low RBC 3.23 LAB L100.1300 13.0-16.5 g/dl Low HGB 9.0 LAB L100.1400 40-54 % Low HCT 29.4 LAB L100.1500 80-94 fL Normal MCV 91.0 LAB L100.1600 27.0-32.0 pg Normal MCH 27.9 LAB L100.1700 32-36 g/gl Low MCHC 30.6 LAB L100.1810 11.6-14.6 % High RDW CV 15.6 LAB L100.1820 35.1-43.9 fl High RDW SD 50.8 LAB L100.1900 150-450 K/mm3 Normal PLT 165 LAB L100.2000 6.2-12.0 fl Normal MPV 10.6 LAB L100.2100 47-70 % High NEUT% 74.6 LAB L100.2200 19-41 % Low LY% 9.8 LAB L100.2300 0-10 % High MONO% 11.7 LAB L100.2400 0-5 % Normal EO% 3.4 LAB L100.2500 0-1 % Normal BASO% 0.3 LAB L100.2550 0.0-0.9 % Normal IM GRAN % 0.200 Result Comment: IG% - Immature Granulocytes (promyelocytes, myelocytes and metamyelocytes) > 1% indicates that a LEFT SHIFT is Present. LAB L100.2620 2.0-7.7 X10 3/uL Normal Absolute Neut 7.0 LAB L100.2720 0.83-4.51 X10 3/ul Normal Absolute Lymph 0.92 Performed By: #### L100.0100 #### [facility] [address] [place], [address] BASIC METABOLIC Collected: 10/16/2018 Status: F Source: SANDRA PROFILE (BMP) 6:08 AM [facility] REPOSITORY TYPE CODE TESTS RESULT OUT OF RANGE REFERENCE UNITS LAB L501.0100 74-106 mg/dL Normal GLU 83 Result Comment: Please note revised GLUCOSE reference range effective 2017. LAB L501.1000 7-18 mg/dL High BUN 69 LAB L501.1100 0.70-1.30 mg/dL High CREAT,SERUM 3.02 Result Comment: The validity of the calculated GFR AND GFRAA in patients over 70 years has not been determined. Clinical correlation is essential. LAB L501.1110 >60 mL/min Low EST GFR 23 Result Comment: Non- GFR Calc LAB L501.1115 >60 mL/min Low EST GFR - AA 27 Result Comment: GFR Calc LAB L501.1255 ml/min Normal Estimated CRCL 25.69 LAB L501.1300 10-20 RATIO High BUN/CRE 22.8 LAB L501.2200 8.5-10 mg/dL Normal .1 CA 8.6 LAB L501.5300 136-14 mmol/L Normal 5 NA 139 LAB L501.5600 3.5-5. mmol/L Normal 1 K 4.9 LAB L501.5900 98-107 mmol/L Normal CL 103 LAB L501.6100 21.0-3 mmol/L Normal 2.0 CO2 25.0 LAB L501.6200 5-15 Normal GAP 11 Performed By: #### L500.2500 #### [facility] [address] [place], [address] BEDSIDE GLUCOSE Collected: 10/15/2018 Status: F Source: SANDRA 10:18 PM [facility] REPOSITORY TYPE CODE TESTS RESULT OUT OF REFERENCE UNITS RANGE LAB L501.080 70-110 mg/dL High BEDSIDE GLU 175 Result Comment: MANAGEMENT OF PATIENT CARE PER NURSING PROTOCOL Performed By: #### L501.080 #### [facility] [address] [place] [address] ARTERIAL Observed: 10/15/2018 Status: F Source: [place] 10:16 PM [facility] REPOSITORY [facility] Cardiovascular Services [address] [place] [address] Lower Ext Art Exam w/o Exercis 10/15/18 0919 MR#: [id number] Acct: [id number] Name: JADA COLUNGA Rep #: [id number] : 1955 62 From: Federico Delgado MD Attending Dr: Octavio Alvarez DO Status: ADM IN Ordering Dr: Jeremie Blankenship DPKenyon Date: 10/13/18 Location: MS3 Sex: M C Admitted: 10/13/18 Reason For Study: heel ulcers Procedure A bilateral lower extremity continuous wave Doppler with analog waveform analysis,segmental pressures,and ankle brachial indexes without exercise. Left Segmental Pressures Left brachial= 110mmHg. Left posterior tibial artery = Non- Compressible.mmHg. Left dorsalis pedis artery = 129mmHg. Left digit = 96 mmHg. The left dorsalis pedis waveforms are triphasic. The left posterior tibial artery waveforms are triphasic. Right Segmental Pressures Right brachial= 111mmHg. Right posterior tibial artery = 130mmHg. Right dorsalis pedis artery = 138mmHg. Right digit = 117 mmHg. The right posterior tibial artery waveforms are triphasic. The right dorsalis pedis waveforms are biphasic. Indices The right ankle brachial index by the dorsalis pedis is 1.24. The right ankle brachial index by the posterior tibial artery is 1.17. The right digital-brachial index is 1.05. The left ankle brachial index by the dorsalis pedis is 1.16. The left ankle brachial index by the posterior tibial artery is Non-Compressible.. The left digital-brachial index is 0.86. Interpretation Summary Triphasic waveforms are noted at ankle level on the right. Triphasic and biphasic waveforms are noted at ankle level on the left. Resting ankle-brachial indices appear bilaterally normal. Resting digital-brachial indices appear bilaterally normal. There is no evidence of significant arterial occlusive disease. Ordering Physician: Jeremie Blankenship Referring Physician: MER BLANKENSHIP Performed By: Ashlie Bruce RVT, RDCS 10/15/182214 Date Federico Delgado MD CC: Octavio Alvarez DO; Jeremie Blankenship DPM; OUT OF TOWN DOCTOR Date Dictated: 10/15/18918 Date Transcribed: 10/15/182214 Software Developer Mid Level: Signed BEDSIDE GLUCOSE Collected: 10/15/2018 Status: F Source: [place] 5:01 PM [facility] REPOSITORY TYPE CODE TESTS RESULT OUT OF REFERENCE UNITS RANGE LAB L501.080 70-110 mg/dL High BEDSIDE GLU 203 Result Comment: MANAGEMENT OF PATIENT CARE PER NURSING PROTOCOL Performed By: #### L501.080 #### [facility] Point [facility] [address] [place], [place] [address] VANCOMYCIN, TROUGH Collected: 10/15/2018 Status: F Source: SANDRA LEVEL 4:45 PM [facility] REPOSITORY Order Comment: Time Medication is to be Given? 1700 TYPE CODE TESTS RESULT OUT OF REFERENCE UNITS RANGE LAB L501.8820 5.0-15.0 ug/mL High VANCO, TROUGH 20.3 Result Comment: VANCOMYCIN STANDARED DRUG THERAPY TROUGH LEVEL: 5.0 - 15.0 mg/L VANCOMYCIN HIGH INTENSITY THERAPY TROUGH LEVEL: 15.0 - 20.0 mg/L High Intensity therapy recommended for serious life threatening infections include: - Meningitis -Endocarditis -Pneumonia (Ventilator/Healtcare Associated) -Sepsis PLEASE CONTACT PHARMACY SERVICES (#[id number]) FOR INTERPRETATION OF RESULTS. Performed By: #### L501.8820 #### [facility] [address] [place], [address] URINE Collected: 10/15/2018 Status: F Source: [place]US[place]O 3:30 PM [facility] REPOSITORY Order Comment: SENT LABELS TO FLOOR TO BE COLLECTED URINE. TYPE CODE TESTS RESULT OUT OF RANGE REFERENCE UNITS LAB L3100.6600 . % No Normal EOS CT Eosinophils Seen [id number] Result Comment: <5% few or none seen Performed at: - [facility] [address] [id number] Dehairing Machine Tender: Lg Kingsley PhD, Phone: [phone] Performed By: #### L3100.6600 #### [facility] (refer to report for specific site) refer to report for address and phone number CONSULTATION Observed: 10/15/2018 Status: F Source: [place] 2:10 PM [facility] REPOSITORY [facility] Medical Records Department [address] [place] [address] Consultation 10/15/18 1406 MR#: [id number] Acct: [id number] Name: JADA COLUNGA Prerna Rep #: [id number] : 1955 62 From: Raúl Mendes MD PCP: OUT OF TOWN DOCTOR Status: ADM IN Y Location: NJ3 [id number] Problem List (1) Cellulitis of right heel Status: Acute Reason for Consult: mrsa infection Consulted by: Dr. Alvarez History of Present Illness: The patient is a 62 year old M with DM neuropathy who presented with 2-3 weeks of progressive R heel infection. Started with blister, developed dull pain, some redness/swelling/drainage. No fever or chills. No n/v/d. Came to ED, started on vanc/zosyn and given dose of clinda. Cxs sent. Abx now narrowed to vanc. Feeling better. Bone scan done. Will follow, thank you. - Medical History Past Medical History (Chronic Problems): Chronic Problems mediport placement (Chronic) Hyperlipidemia (Chronic) DM type 2 (diabetes mellitus, type 2) (Chronic) Chronic CHF (congestive heart failure) (Chronic) ef=25% as of 04/04 Carotid artery stenosis (Chronic) R CEA CAD (coronary artery disease) (Chronic) extensive disease multiple stents Hx of CABG (Chronic) hx epidural abscess (Chronic) Obesity (Chronic) Benign hypertension (Chronic) Allergies/Adverse Reactions: Allergies metoclopramide HCl [From Reglan] Adverse Reaction (Verified 10/13/18 12:27) goofy, anxious, elevated BP ondansetron HCl [From Zofran] Adverse Reaction (Verified 10/13/18 12:27) goofy, anxious, elevated BP Ylvlrct-Sql-Utp Reductase Inhibitor Adverse Reaction (Verified 10/13/18 16:05) rhabdomyolosis Home Medications: Ambulatory Orders Medication Instructions Recorded Clopidogrel Bisulfate [Plavix] 75 mg PO DAILY 02/08/15 - Social History Tobacco Use: non-smoker Vital Signs Temp Pulse Resp BP Pulse Ox 98.4 F 54 L 16 111/52 L 93 10/15/18 09:30 10/15/18 09:30 10/15/18 09:30 10/15/18 09:30 10/15/18 09:30 Oxygen Flow Rate (L/min) 2 Oxygen Delivery Method Room Air Weight: 113.534 kg Body Mass Index (BMI) 36.9 Finger Stick Blood Glucose 42 Microbiology Past 72 Hours 10/13/18 13:10 Blood Culture - Preliminary Blood Culture (Wb) - Right Hand No growth in 48 hours. 10/13/18 13:33 Blood Culture - Preliminary Blood Culture (Wb) - Left Hand No growth in 48 hours. Laboratory Tests Past 24 Hrs Sodium 138 Potassium 4.7 Chloride 103 Carbon Dioxide 24.0 Anion Gap 11 - Other Studies Radiology: [] reviewed Other Studies: [] Route of nutrition/ use of supplements: [] Nutritional Intake: [] IV Site: [] Corea Catheter: [] - Physical Exam General: Alert, Oriented x3, Cooperative, No apparent distress HEENT: Atraumatic, PERRLA, EOMI Neck: Supple, No Nodes Lungs: Clear to auscultation, Normal air movement Cardiovascular: Regular rate, Regular Rhythm, No murmurs Abdomen: Soft, Non Tender, Non-Distended Extremities: Edema - mild Skin: Ulcer/ Wound - reviewed photos of B heels Musculoskeletal: No Tenderness to Palpation of Joints or Extremities Neurological: Cranial nerves II-XII grossly intact, - - peripheral neuropathy - Assessment/Plan Antibiotics: [] Assessment/Plan: [] Active and Suspected Problems DENISHA (acute kidney injury) (Acute) Pain of right heel (Acute) Cellulitis of right heel (Acute) MRSA and enterococcus R heel infected ulcer with DM neuropathy - Worsening DENISHA, urine studies sent. Vanc level to be done today. Will stop vanc, start po levaquin. Not a candidate for linezolid as he is on 2 SSRIs. Will follow, thank you. 10/15/18 1410 <Electronically signed by Raúl Mendes MD> Date [facility]úl Mendes [facility] (if applicable): Date CC: Jeremie Blankenship DPM; OUT OF TOWN DOCTOR; Raúl Mendes MD Signed BEDSIDE GLUCOSE Collected: 10/15/2018 Status: F Source: SANDRA 10:25 AM [facility] REPOSITORY TYPE CODE TESTS RESULT OUT OF REFERENCE UNITS RANGE LAB L501.080 70-110 mg/dL High BEDSIDE GLU 142 Result Comment: MANAGEMENT OF PATIENT CARE PER NURSING PROTOCOL Performed By: #### L501.080 #### [facility] Point [facility] [address] [facility] [place] [address] BEDSIDE GLUCOSE Collected: 10/15/2018 Status: F Source: SANDRA 6:47 AM [facility] REPOSITORY TYPE CODE TESTS RESULT OUT OF RANGE REFERENCE UNITS LAB L501.080 70-110 mg/dL Normal BEDSIDE GLU 79 Result Comment: MANAGEMENT OF PATIENT CARE PER NURSING PROTOCOL Performed By: #### L501.080 #### [facility] [address] [facility] [place] [address] BASIC METABOLIC Collected: 10/15/2018 Status: F Source: SANDRA PROFILE (BMP) 5:30 AM [facility] REPOSITORY TYPE CODE TESTS RESULT OUT OF RANGE REFERENCE UNITS LAB L501.0100 74-106 mg/dL Normal GLU 84 Result Comment: Please note revised GLUCOSE reference range effective 2017. LAB L501.1000 7-18 mg/dL High BUN 60 LAB L501.1100 0.70-1.30 mg/dL High CREAT,SERUM 2.57 Result Comment: The validity of the calculated GFR AND GFRAA in patients over 70 years has not been determined. Clinical correlation is essential. LAB L501.1110 >60 mL/min Low EST GFR 27 Result Comment: Non- GFR Calc LAB L501.1115 >60 mL/min Low EST GFR - AA 33 Result Comment: GFR Calc LAB L501.1255 ml/min Normal Estimated CRCL 30.18 LAB L501.1300 10-20 RATIO High BUN/CRE 23.3 LAB L501.2200 8.5-10 mg/dL Low .1 CA 8.1 LAB L501.5300 136-14 mmol/L Normal 5 NA 138 LAB L501.5600 3.5-5. mmol/L Normal 1 K 4.7 LAB L501.5900 98-107 mmol/L Normal CL 103 LAB L501.6100 21.0-3 mmol/L Normal 2.0 CO2 24.0 LAB L501.6200 5-15 Normal GAP 11 Performed By: #### L500.2500 #### [facility] [address] [place], [place], [id number] BEDSIDE GLUCOSE Collected: 10/14/2018 Status: F Source: SANDRA 9:34 PM [facility] REPOSITORY TYPE CODE TESTS RESULT OUT OF RANGE REFERENCE UNITS LAB L501.080 70-110 mg/dL Normal BEDSIDE GLU 92 Result Comment: MANAGEMENT OF PATIENT CARE PER NURSING PROTOCOL Performed By: #### L501.080 #### [facility] [address] [facility] [place] [address] BEDSIDE GLUCOSE Collected: 10/14/2018 Status: F Source: SANDRA 3:54 PM [facility] REPOSITORY TYPE CODE TESTS RESULT OUT OF RANGE REFERENCE UNITS LAB L501.080 70-110 mg/dL Normal BEDSIDE GLU 91 Result Comment: MANAGEMENT OF PATIENT CARE PER NURSING PROTOCOL Performed By: #### L501.080 #### [facility] [address] [facility] [place] [address] BEDSIDE GLUCOSE Collected: 10/14/2018 Status: F Source: SANDRA 2:37 PM [facility] REPOSITORY TYPE CODE TESTS RESULT OUT OF RANGE REFERENCE UNITS LAB L501.080 70-110 mg/dL Normal BEDSIDE GLU 95 Result Comment: MANAGEMENT OF PATIENT CARE PER NURSING PROTOCOL Performed By: #### L501.080 #### [facility] [address] [place] [address] BEDSIDE GLUCOSE Collected: 10/14/2018 Status: F Source: SANDRA 10:59 AM [facility] REPOSITORY TYPE CODE TESTS RESULT OUT OF REFERENCE UNITS RANGE LAB L501.080 70-110 mg/dL High BEDSIDE GLU 147 Result Comment: MANAGEMENT OF PATIENT CARE PER NURSING PROTOCOL Performed By: #### L501.080 #### [facility] [address] [place] [address] BEDSIDE GLUCOSE Collected: 10/14/2018 Status: F Source: [place] 6:52 AM [facility] REPOSITORY TYPE CODE TESTS RESULT OUT OF REFERENCE UNITS RANGE LAB L501.080 70-110 mg/dL High BEDSIDE GLU 140 Result Comment: MANAGEMENT OF PATIENT CARE PER NURSING PROTOCOL Performed By: #### L501.080 #### [facility] [address] [place] [address] CBC W/DIFF, AUTOMATED Collected: 10/14/2018 Status: F Source: [place] 5:20 AM [facility] REPOSITORY TYPE CODE TESTS RESULT OUT OF RANGE REFERENCE UNITS LAB L100.1000 4.4-11.0 K/mm3 Normal WBC 10.7 LAB L100.1200 4.6-6.2 M/mm3 Low RBC 3.06 LAB L100.1300 13.0-16.5 g/dl Low HGB 8.5 LAB L100.1400 40-54 % Low HCT 27.7 LAB L100.1500 80-94 fL Normal MCV 90.5 LAB L100.1600 27.0-32.0 pg Normal MCH 27.8 LAB L100.1700 32-36 g/gl Low MCHC 30.7 LAB L100.1810 11.6-14.6 % High RDW CV 15.1 LAB L100.1820 35.1-43.9 fl High RDW SD 48.3 LAB L100.1900 150-450 K/mm3 Normal PLT 179 LAB L100.2000 6.2-12.0 fl Normal MPV 10.6 LAB L100.2100 47-70 % High NEUT% 85.0 LAB L100.2200 19-41 % Low LY% 6.1 LAB L100.2300 0-10 % Normal MONO% 6.4 LAB L100.2400 0-5 % Normal EO% 1.6 LAB L100.2500 0-1 % Normal BASO% 0.7 LAB L100.2550 0.0-0.9 % Normal IM GRAN % 0.200 Result Comment: IG% - Immature Granulocytes (promyelocytes, myelocytes and metamyelocytes) > 1% indicates that a LEFT SHIFT is Present. LAB L100.2620 2.0-7.7 X10 3/uL High Absolute Neut 9.1 LAB L100.2720 0.83-4.51 X10 3/ul Low Absolute Lymph 0.65 Performed By: #### L100.0100, L101.9900 #### [facility] [address] [facility] [place], [place], [address] ERYTHROCYTE SED RATE Collected: 10/14/2018 Status: F Source: [place] 5:20 AM [facility] REPOSITORY TYPE CODE TESTS RESULT OUT OF RANGE REFERENCE UNITS LAB L102.0000 0-20 mm/hr High SED RATE 54 Performed By: #### L100.0100, L101.9900 #### [facility] [address] [place], [address] BASIC METABOLIC Collected: 10/14/2018 Status: F Source: [place] PROFILE (BMP) 5:20 AM [facility] REPOSITORY TYPE CODE TESTS RESULT OUT OF RANGE REFERENCE UNITS LAB L501.0100 74-106 mg/dL High GLU 123 Result Comment: Fasting Glucose result from 100 to 125 mg/dL suggests IMPAIRED HOMEOSTASIS per A.D.A. criteria. Please note revised GLUCOSE reference range effective 2017. LAB L501.1000 7-18 mg/dL High BUN 53 LAB L501.1100 0.70-1.30 mg/dL High CREAT,SERUM 1.88 Result Comment: The validity of the calculated GFR AND GFRAA in patients over 70 years has not been determined. Clinical correlation is essential. LAB L501.1110 >60 mL/min Low EST GFR 39 Result Comment: Non- GFR Calc LAB L501.1115 >60 mL/min Low EST GFR - AA 47 Result Comment: GFR Calc LAB L501.1255 ml/min Normal Estimated CRCL 41.26 LAB L501.1300 10-20 RATIO High BUN/CRE 28.2 LAB L501.2200 8.5-10 mg/dL Low .1 CA 8.4 LAB L501.5300 136-14 mmol/L Normal 5 NA 141 LAB L501.5600 3.5-5. mmol/L Normal 1 K 4.2 LAB L501.5900 98-107 mmol/L Normal CL 102 LAB L501.6100 21.0-3 mmol/L Normal 2.0 CO2 29.0 LAB L501.6200 5-15 Normal GAP 10 Performed By: #### L500.2500, L501.6710 #### [facility] [address] [facility] [place], [place], [address] CRP Collected: 10/14/2018 Status: F Source: [place] 5:20 AM [facility] REPOSITORY TYPE CODE TESTS RESULT OUT OF RANGE REFERENCE UNITS LAB L501.6710 0.0-3.0 mg/L High 31.40 C-REACTIVE PROT Result Comment: C-Reactive Protein (CRP) provides useful information for the diagnosis, therapy and monitoring of inflammatory processes and associated diseases. For the evaluation of Relative Risk for Cardiovascular Disease, a High Sensitivity CRP (HSCRP) should be ordered. Performed By: #### L500.2500, L501.6710 #### [facility] [address] [place], [place], [address] LIVER PROFILE Collected: 10/14/2018 Status: F Source: [place] 5:20 AM [facility] REPOSITORY TYPE CODE TESTS RESULT OUT OF RANGE REFERENCE UNITS LAB L501.1500 6.4-8.2 g/dL Normal T PROT 7.2 LAB L501.1800 3.2-5.0 g/dL Low ALB 2.9 LAB L501.1950 2.2-4.2 g/dL High GLOB 4.3 LAB L501.4100 15-37 U/L Normal AST 34 LAB L501.4305 45-117 U/L High ALK P 273 LAB L501.4405 16-61 U/L Normal ALT 22 LAB L501.4600 0.20-1.00 mg/dL High T BILI 1.60 LAB L501.4700 0.00-0.30 mg/dL High D BILI 1.02 Performed By: #### L500.3400, L500.4100, L501.5200 #### [facility] [address] [place], [place], [id number] LIPID PROFILE Collected: 10/14/2018 Status: F Source: [place] 5:20 AM [facility] REPOSITORY TYPE CODE TESTS RESULT OUT OF RANGE REFERENCE UNITS LAB L501.4900 200 mg/dL Normal CHOL 69 Result Comment: <200 mg/dL Desirable 200-240 mg/dL Borderline >240 mg/dL High Risk LAB L501.5000 mg/dL Normal TRIG 52 Result Comment: The drugs N-Acetylcysteine and Metamizole may falsely depress this assay. Serum Triglycerides Reference Interval Normal <150 mg/dL Borderline high 150 - 199 mg/dL High 200 - 499 mg/dL Very High > or = 500 mg/dL LAB L501.6400 mg/dL Low HDL 25 Result Comment: The drugs N-Acetylcysteine and Metamizole may falsely depress this assay. Reference Range HDL <40 mg/dL Low HDL Cholesterol HDL >or= 60 mg/dL High HDL Cholesterol LAB L501.6500 0-130 mg/dL Normal LDL 34 LAB L501.6600 5-40 mg/dL Normal VLDL 10 Performed By: #### L500.3400, L500.4100, L501.5200 #### [facility] [address] [place], [place], [id number] MAGNESIUM Collected: 10/14/2018 Status: F Source: [place] 5:20 AM [facility] REPOSITORY TYPE CODE TESTS RESULT OUT OF RANGE REFERENCE UNITS LAB L501.5200 1.6-2.6 mg/dL Normal MG 2.1 Performed By: #### L500.3400, L500.4100, L501.5200 #### [facility] [address] [place], [place], [id number] HEMOGLOBIN A1C Collected: 10/14/2018 Status: F Source: [place] 5:20 AM [facility] REPOSITORY TYPE CODE TESTS RESULT OUT OF RANGE REFERENCE UNITS LAB L501.9985 4.2-6.3 % High HGB A1C 12.3 Performed By: #### L501.9985 #### [facility] [address] [place], [address] CONSULTATION Observed: 10/13/2018 Status: F Source: [place] 9:58 PM [facility] REPOSITORY [facility] Medical Records Department [address] [place] [address] Consultation 10/13/18 1734 MR#: [id number] Acct: [id number] Name: JADA COLUNGA Rep #: [id number] : 1955 62 From: Jeremie Blankenship DPM PCP: Care Physician, No Primary Status: ADM IN Location: [place] [address] Reason for Consult Date of Consultation: 10/13/18 Reason for Consultation: Right foot ulcer infection History of Present Illness: The patient is a 62 year old gentleman with history of multiple medical problems including diabetes w/ peripheral neuropathy, heart disease w/ pacemaker and s/p stenting, previous back osteomyelitis, as well as partial finger amputation was seen today for right foot ulceration w/ infection as well as significant crack left heel. Patient relates he developed a blister to the right heel 1.5 weeks ago, he states he was putting off care of it, but finally decided to come to the ER today. It was noted there was cellulitis, and possible osteomyelitis present - patient was admitted for further management of this. He relates he has has a chronic crack on the left heel, states his PCP in [place] took a look at this, he states it is looking better than it did before. Patient relates his blood sugars are not controlled. He denies any fever, chills, nausea or vomiting. Podiatry was consulted by Dr. Hammond from the ER, as well as Dr. Gunderson from the hospitalist medicine team. Past Medical History Past Medical History (Chronic Problems): Chronic Problems mediport placement (Chronic) Hyperlipidemia (Chronic) DM type 2 (diabetes mellitus, type 2) (Chronic) Chronic CHF (congestive heart failure) (Chronic) ef=25% as of 04/04 Carotid artery stenosis (Chronic) R CEA CAD (coronary artery disease) (Chronic) extensive disease multiple stents Hx of CABG (Chronic) hx epidural abscess (Chronic) Obesity (Chronic) Benign hypertension (Chronic) Allergies metoclopramide HCl [From Reglan] Adverse Reaction (Verified 10/13/18 12:27) goofy, anxious, elevated BP ondansetron HCl [From Zofran] Adverse Reaction (Verified 10/13/18 12:27) goofy, anxious, elevated BP Plmiopa-Vwl-Syl Reductase Inhibitor Adverse Reaction (Verified 10/13/18 16:05) rhabdomyolosis Home Medications: Ambulatory Orders Medication Instructions Recorded Clopidogrel Bisulfate [Plavix] 75 mg PO DAILY 02/08/15 Surgical History: appendectomy, cataract, cholecystectomy, coronary bypass surgery - 2004 - [place], herniorrhaphy, tonsillectomy, - - Cardiac stent placement 24 (according to patient), right carotid endarterectomy. Psychiatric History: Depression Lives: With Family Smoking Status: Never smoker Tobacco Use: Non-smoker Alcohol: None - *Family History Maternal History Items: No pertinent history Paternal History Items: Heart Disease - of an UT at age 61 Sibling History Items: No pertinent history Review of Systems Constitutional: Denies: Chills, Fever Gastrointestinal: Denies: Nausea, Vomiting Skin: Reports: Wounds Patient Problems: Active and Suspected Problems Pain of right heel (Acute) - Physical Exam General: Alert, Oriented x3, Cooperative, No apparent distress Extremities: No clubbing, No cyanosis, Capillary Refill Less than 3 Seconds, No Calf Tenderness, - - There is ulceration to the posterio heel right foot - there is necrotic nonviable tissue and eschar present with some visible subcutaneous tissue present - there is surrounding erythema c/w cellulitis, there is no streaking up leg, there is no drainage, no fluctuance, no crepitus, no visible abscess - the ulcer measured 3.3cm x 3.3cm prior to debridement - there is no probe to bone or deeper structures, margins with no undermining, there is some edema to the foot; there is also an ulceration / crack to the posterior left heel with nonviable tissue present to the site - measures 3.4cm x 0.5cm prior to debridement down to the subcutaneous tissue, there is no deep probing or tracking - no probe to bone, no visible abscess, no fluctuance, no crepitus, no cellulitis, streaking present, no undermining, no edema present. No other open wounds present bilateral foot/ankle. CFT < 2 seconds to all toes bilateral and appears pedal pulses intact, there is no evidence of acute ischemia to the foot or ankle bilateral. Sensation significantly diminished bilateral foot c/w peripheral neuropathy, motor function intact to the foot/ankle, no evidence of acute or chronic charcot neuroarthropathy present bilateral. Muscle strength intact to the foot/ankle, and muscle mass within normal limits bilateral foot/ankle. No POP or pain on ROM to the foot/ankle bilateral. Musculoskeletal: No Tenderness to Palpation of Joints or Extremities - foot/ankle bilateral., No Muscle Wasting - to the foot/ankle bilateral. Psych/Mental Status: Appropriate, Alert and oriented to time, place, person, mood and affect Vital Signs Temp Pulse Resp BP Pulse Ox 98.1 F 62 20 H 146/79 H 94 10/13/18 16:06 10/13/18 16:06 10/13/18 16:06 10/13/18 16:06 10/13/18 16:06 Oxygen Delivery Method Room Air Weight: 113.534 kg Body Mass Index (BMI) 36.9 Finger Stick Blood Glucose 42 Intake and Output for Last 24 Hours Intake Total 192 / 192 Balance 192 / 192 Laboratory Tests Past 24 Hrs WBC 9.0 RBC 3.23 L Hgb 8.9 L Hct 28.8 L MCV 89.2 MCH 27.6 MCHC 30.9 L RDW 15.0 H POC Glucose POC Glucose 122 H Assessment/Plan All Active Problems Pain of right heel (Acute) Suspected sleep apnea (Acute) Ulcer right heel down to the subcutaneous tissue layer Ulcer/crack left heel down to the subcutaneous tissue layer Cellulitis right heel Diabetes with peripheral neuropathy Reviewed diagnostic data - right foot xrays and labs. The ulceration right heel was debrided in excisional fashion down to the subcutaneous tissue layer using a 15 blade. Post debridement the ulceration right heel measures 3.5cm x 3.5cm and down to the subcutaneous tissue layer, no anesthesia was needed due to patient's peripheral neuropathy, base and margins healthy and viable post debridement - there was no visible abscess or pockets, no fluctuance or crepitus, no purulence, margins intact with no undermining - there is no probe or tracking to bone or deeper structures. Betadine solution and a gauze / margaret dressing applied. Keep offloaded at all times. A culture of the right heel ulceration infection has been obtained and sent to microbiology. Patient is on broad spectrum antibiotics at this time. Blood cultures have been obtained and are pending. Right foot xrays with possible lytic lesion to the calcaneus which may represent osteomyelitis. It appears patient is not able to have an MRI due to his pacemaker, so a bone scan has been ordered for further evaluation. Ulceration/crack left heel: The ulceration was debrided in excisional fashion down to the subcutaneous tissue layer using a 15 blade. Post debridement the ulceration right heel measures 3.5cm x0.8cm and down to the subcutaneous tissue layer, no anesthesia was needed due to patient's peripheral neuropathy, base and margins healthy and viable post debridement - there was no visible abscess or pockets, no fluctuance or crepitus, no purulence, margins intact with no undermining - there is no probe or tracking to bone or deeper structures. Betadine solution and a gauze / margaret dressing applied. Keep offloaded at all times. Santyl has been ordered for daily dressing changes. Again advised patient to keep heels offloaded at all times. No weightbearing right foot, ok to weightbear on left forefoot. Reviewed with patient importance of proper diabetic / blood sugar control to optimize healing. Spoke and reviewed with Dr. Gunderson. Podiatry will continue to follow. Thank you for consultation. 10/13/18 2158 <Electronically signed by Jeremie Blankenship DPM> Date Jeremie Blankenship DPM Cosigner Signature (if applicable): Date CC: No Primary Care Physician; Jeremie Blankenship DPM; OUT OF TOWN DOCTOR Signed BEDSIDE GLUCOSE Collected: 10/13/2018 Status: F Source: [place] 9:38 PM [facility] REPOSITORY TYPE CODE TESTS RESULT OUT OF REFERENCE UNITS RANGE LAB L501.080 70-110 mg/dL High BEDSIDE GLU 191 Result Comment: MANAGEMENT OF PATIENT CARE PER NURSING PROTOCOL Performed By: #### L501.080 #### [facility] Point of Care [address] [place], [place] [address] MRSA WOUND DNA BY Collected: 10/13/2018 Status: F Source: [place] PCR 5:30 PM [facility] REPOSITORY Order Comment: Specimen Source? right foot ulcer TYPE CODE TESTS RESULT OUT OF REFERENCE UNITS RANGE LAB L8200.1100 Negative High MRSA POSITIVE RESULT Result Comment: SENT TO [facility] 10-13-18 AT 1842PM RESULTS CALLED TO NICOLE DOLL RN 10/13/18 1841 Justin Cohen. REPORT READ BACK BY SAME . LAB L8200.1150 Negative High SA RESULT POSITIVE Performed By: #### L8200.1075 #### [facility] [address] [place], [address] Observed: 10/13/2018 Status: F Source: [place] CULTURE, DEEP WOUND 5:30 PM [facility] REPOSITORY Gram Stain Gram Stain 4+ Red Blood Cells 1+ Epithelial cells No organisms seen Wound Culture Copy of report sent to Infection Control Printer [id number] 10/15/18 0844 NSLETICIA. ORGANISM 1: Meth. resistant Staph. aureus Amount Growth 2+ ORGANISM 2: Enterococcus faecalis Amount Growth 3+ Meth. resistant Staph. aureus: REACTION Benzylpenicillin NF >=0.5 R Cefoxitin *NF + Clindamycin $$ >=8 R Inducable Clindamycin Resistan - Erythromycin $ >=8 R Gentamicin $ <=0.5 S Levofloxacin $ <=0.12 S Linezolid $$$$ 1 S Oxacillin NF >=4 R Tigecycline $$$$ <=0.12 S Rifampin $$ <=0.5 S Tetracycline NF <=1 S Trimethoprim/Sulfametho $ <=10 S Vancomycin $ 1 S (NF) indicates non-formulary drug at [facility]. Approval by Infectious Disease Specialist required before non-formulary drugs may be ordered and/or dispensed. * CLSI guidelines does not recommend testing of cephalosporins. This interpretation is deduced from Beta-lactam/penicillin results. Enterococcus faecalis: REACTION Ampicillin $ <=2 S Benzylpenicillin NF 4 S Gentamicin SYN-R R Linezolid $$$$ 2 S Tigecycline $$$$ <=0.12 S Streptomycin $ SYN-R R Vancomycin $ 1 S (NF) indicates non-formulary drug at [facility]. Approval by Infectious Disease Specialist required before non-formulary drugs may be ordered and/or dispensed. * CLSI guidelines does not recommend testing of cephalosporins. This interpretation is deduced from Beta-lactam/penicillin results. Cult, Anaerobic No anaerobic bacteria isolated. Performed By: #### M100.1500 #### [facility] [address] [place], [address] EMERGENCY DEPARTMENT Observed: 10/13/2018 Status: F Source: [place] SUMMARY 4:48 PM [facility] REPOSITORY [facility] Medical Records Department [address] [place] [address] Emergency Department Summary 10/13/18 1520 MR#: [id number] Acct: [id number] Name: BRIGITTEBRII GRAHAMDuy Velasquez Rep #: [id number] : 1955 62 From: Justin Hammond MD PCP: Care Physician, No Primary Status: ADM IN - ER Visit Summary Date of Service: 10/13/18 Chief Complaint: Right foot pain History of Present Illness: The patient is a 62 M presenting for evaluation secondary to a possible foot infection. Patient is diabetic and has decreased sensation of his right foot. Patient reports that he had a blister there that developed about a week ago and spontaneously broke. Patient denies any constitutional symptoms. Physical Examination: Lower extremity exam shows approximately a 4-5 cm open eschar over the patient's right plantar heel. There is evidence of blanching just surrounding this and some subcutaneous emphysema. There is some extending erythema and mild swelling of the foot. Test Results: CBC shows anemia with a hemoglobin of 8, chemistry shows elevated creatinine at 1.8. Blood cultures are pending. Foot x-ray shows potential osteomyelitis Emergency Department Course and Treatment: Patient presented secondary to a diabetic foot infection. Workup as noted above shows likely evidence of the patient having osteomyelitis. I discussed this with podiatry who recommends broad-spectrum antibiotics. Patient will be admitted under the hospitalist. Disposition: Admission Impression: 1. Right heel osteomyelitis This note was generated with [employer] dictation software. It may contain incorrect words, spelling, and punctuation that were not noted in review of the chart prior to signing ED Disposition - Plan for ED Patient: Chief Complaint: Cellulitis Referrals: Care Physician,No Primary [Primary Care Provider] - What to do if you have Problems For any increased pain, shortness of breath, bleeding, nausea or vomiting, chest pain, or any unexpected problems, contact your Primary Care Provider. Call [facility] ([phone]) or report to the closest Emergency Room. Call 911 if necessary. 10/13/18 1648 <Electronically signed by Justin Hammond MD> Date Justin Hammond MD Cosigner Signature (If Indicated): Date CC: No Primary Care Physician; OUT OF TOWN DOCTOR HISTORY AND PHYSICAL Observed: 10/13/2018 Status: F Source: [place] EXAM 4:17 PM [facility] REPOSITORY [facility] Medical Records Department [address] [place] [address] History and Physical 10/13/18 1601 MR#: [id number] Acct: [id number] Name: JADA CLOUNGA Rep #: [id number] : 1955 62 From: James Gunderson DO PCP: Care Physician, No Primary Status: ADM CECILE Y [id number] Problem List (1) Pain of right heel Status: Acute History of Present Illness Date of Admission: 10/13/18 Chief Complaint: Right heel pain The patient is a 62 year old M who was seen in the emergency room at [facility] with chief complaint of increased pain in his right heel today, patient stated that he had a blister on his right heel approximately a week ago and this burst ever since that time, he has had increased swelling in the area of his right heel and he has had pain today. Patient states that he has had some discharge from the right heel that he described as bloody over the past 24 hours. Patient denied any fevers or chills. Evaluation in the emergency room included labs which revealed a normal white blood cell count, hemoglobin was 8.9, chemistry profile was remarkable for a BUN of 60 and a creatinine of 1.89. Patient's blood glucose was 164. X-rays were obtained of the right foot, there was noted to be subcutaneous air in the soft tissues overlying the heel consistent with a wound, there was also a faint lucency in the calcaneus adjacent to the wound which might represent osteomyelitis. There is diffuse soft tissue swelling in the right foot. Podiatry was contacted by the emergency room physician, they requested the hospitalist service admit the patient for deep wound infection of the right foot, the patient's wound on his right heel is covered with an eschar and is is not stageable. Patient was given IV vancomycin and Zosyn in the emergency room Past Medical History Past Medical History (Chronic Problems): Chronic Problems mediport placement (Chronic) Hyperlipidemia (Chronic) DM type 2 (diabetes mellitus, type 2) (Chronic) Chronic CHF (congestive heart failure) (Chronic) ef=25% as of 04/04 Carotid artery stenosis (Chronic) R CEA CAD (coronary artery disease) (Chronic) extensive disease multiple stents Hx of CABG (Chronic) hx epidural abscess (Chronic) Obesity (Chronic) Benign hypertension (Chronic) Allergies Raldkwn-Rfz-Gjc Reductase Inhibitor Allergy (Verified 10/13/18 12:27) rhabdo metoclopramide HCl [From Reglan] Adverse Reaction (Verified 10/13/18 12:27) goofy, anxious, elevated BP ondansetron HCl [From Zofran] Adverse Reaction (Verified 10/13/18 12:27) goofy, anxious, elevated BP Home Medications: Ambulatory Orders Medication Instructions Recorded Clopidogrel Bisulfate [Plavix] 75 mg PO DAILY 02/08/15 Surgical History: appendectomy, cataract, cholecystectomy, coronary bypass surgery - 2005 - [place], herniorrhaphy, tonsillectomy, - - Cardiac stent placement 24 (according to patient), right carotid endarterectomy. Psychiatric History: Depression Lives: With Family Smoking Status: Never smoker Tobacco Use: Non-smoker Alcohol: None - *Family History Maternal History Items: No pertinent history Paternal History Items: Heart Disease - of an UT at age 61 Sibling History Items: No pertinent history Review of Systems Constitutional: Denies: Anorexia, Chills, Fever, Night Sweats, Malaise, Weakness, Weight Change, Fatigue Eyes: Denies: Cataracts, Conjunctivae Inflammation, Double vision, Drainage, Redness, Vision Change HEENT: Denies: Difficulty Swallowing, Dysphasia, Ear Pain, Eye Pain, Head Aches, Hearing Changes, Nasal bleeding, Nasal Congestion, Post Nasal Drip Cardiovascular: Denies: Chest Pain, Claudication, Chest Pressure, Chest Tightness, Edema, Heaviness, Palpitations Respiratory: Denies: Cough, Hemoptysis, Pleuritic Pain, Shortness of Breath, Shortness of breath at rest, Shortness of breath upon exertion Gastrointestinal: Denies: Abdominal Pain, Constipation, Diarrhea, Hematemesis, Hematochezia, Nausea, Melena, Vomiting Genitourinary: Denies: Dysuria, Frequency, Hematuria, Hesitancy, Urgency Musculoskeletal: Reports: Foot Pain - Patient has complained of right heel pain times 1 week. Denies: Joint Pain, Joint stiffness, Joint swelling, Joint Tenderness, Leg Pain, Muscle pain, Neck Pain, Shoulder Pain Skin: Reports: Wounds - Patient had a blister on his right heel which burst a week ago. Denies: Dryness, Pruritis, Rash Neurological: Denies: Blurred vision, Double vision, Slurred speech, Difficulty swallowing, Focal weakness, Headaches, Incoordination, Numbness, Tingling Psychiatric: Denies: Anxiety, Depression, Homicidal Ideations, Suicidal Ideations Endocrine: Denies: Change in Body Habitus, Heat/ Cold Intolerance, Polydipsia, Polyuria Hematologic/ Lymphatic: Denies: Adenopathy, Anemia, Easy Bruising, Easy Bleeding, Petechiae, Purpura VTE Information - Inpt Only VTE Present on Admission: No VTE Mechan Device Prophylaxis: None VTE Pharm Prophylaxis ordered?: Yes Patient Problems: Active and Suspected Problems Pain of right heel (Acute) - Physical Exam General: Alert, Oriented x3, Cooperative, No apparent distress, Well developed, Well nourished HEENT: Atraumatic, PERRLA, EOMI, Normocephalic Oral: Moist Mucosa Neck: Supple, No JVD, Negative Carotid Bruits, No Nuchal Rigidity, Trachea Midline, Thyroid Normal Size and Texture Lungs: Clear to auscultation, Normal air movement, No rhonchi, No wheeze, No rales Cardiovascular: Regular rate, Regular Rhythm, Normal S1, Normal S2, No murmurs, No Ectopic Activity, PMI Normal, No rub noted, No Gallop Abdomen: Bowel Sounds Present, Soft, Non Tender, Non-Distended, No hernias noted Extremities: Capillary Refill Less than 3 Seconds, Edema - There is diffuse edema of the right foot +3 mm noted to be present, there is also edema in the left foot to a lesser extent which is +1 mm pitting Skin: No rashes, Ulcer/ Wound - There are eschars located over the patient's right heel and left medial heel, no discharge is noted from either area Musculoskeletal: No Tenderness to Palpation of Joints or Extremities Neurological: Cranial nerves II-XII grossly intact, Neuro grossly intact, Coordination normal Psych/Mental Status: Normal Affect, Appropriate, Alert and oriented to time, place, person, mood and affect Vital Signs Temp Pulse Resp BP Pulse Ox 98.1 F 64 18 148/76 H 91 10/13/18 12:27 10/13/18 15:16 10/13/18 15:16 10/13/18 15:16 10/13/18 15:16 Oxygen Delivery Method Room Air Weight: 113.534 kg Body Mass Index (BMI) 36.9 Finger Stick Blood Glucose 42 Laboratory Tests Past 24 Hrs WBC 9.0 RBC 3.23 L Hgb 8.9 L Hct 28.8 L MCV 89.2 MCH 27.6 MCHC 30.9 L RDW 15.0 H Assessment/Plan All Active Problems Pain of right heel (Acute) Suspected sleep apnea (Acute) #1 deep wound infection of the right heel/possible osteomyelitis- patient will be admitted to [facility], he will be maintained on IV Zosyn and vancomycin, he will be seen in consultation by podiatry, he will need a bone scan due to the fact that he has either a defibrillator or pacemaker (patient is not sure which) which is not compatible with MRI as he has been told. #2 type 2 diabetes-blood sugars will be monitored, patient will be given sliding scale insulin per protocol, he will remain on his home insulin dosage #3 diabetic neuropathy #4 eschar in the left heel-this area does not appear to be reddened or tender #5 coronary artery disease-patient states he has had multiple stents placed in the past as well as coronary artery bypass grafting. 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, patient states this was several years ago Code Visit Inpatient E AND M: 11054 Init Hosp L3 10/13/18 1617 <Electronically signed by James Gunderson DO> Date James Gunderson DO Cosigner Signature: Date (if applicable) CC: No Primary Care Physician; James Gunderson DO; OUT OF TOWN DOCTOR Signed BEDSIDE GLUCOSE Collected: 10/13/2018 Status: F Source: [place] 4:12 PM [facility] REPOSITORY TYPE CODE TESTS RESULT OUT OF REFERENCE UNITS RANGE LAB L501.080 70-110 mg/dL High BEDSIDE GLU 122 Result Comment: MANAGEMENT OF PATIENT CARE PER NURSING PROTOCOL Performed By: #### L501.080 #### [facility] Point of Care [address] [place] [address] BONE SCAN THREE Observed: 10/13/2018 Status: F Source: [place] PHASE 3:44 PM [facility] REPOSITORY [facility] Imaging Services [address] [place] [address] Bone Scan Three Phase MR#: [id number] Acct: [id number] Name: CRISTINEJADA W Rep #: [id number] : 1955 M 62 From: Shalom Clark DO PCP: OUT OF TOWN DOCTOR Status: ADM IN Study: Bone Scan Three Phase Date of Exam: 10/15/18 Exam# [id number] Ordering Dr: James Gunderson DO CLINICAL: 62-year-old male with reported history of bilateral (R > L) hindfoot soft tissue wound formation. LIMITED 99m Tc MDP THREE PHASE BONE SCINTIGRAPHY COMPARISON: Plain film radiograph report right foot 10/13/2018 FINDINGS: Following the intravenous administration of 26.1 mCi of 99m Tc MDP, three-phase bone acquisitions of the distal lower extremities reveal: 1. The flow and immediate static blood pool acquisitions demonstrate relatively symmetric arterial and venous phase distribution of the radiopharmaceutical to the bilateral visualized lower extremities. 2. Delayed images depict increased radiopharmaceutical concentration asymmetrically apparent in the region of the right ankle diffusely, focally defined in the region of the cuboid tarsal bone of the right midfoot and first metatarsal-phalangeal articulation of the right forefoot. 3. The remaining limited skeletal structures are scintigraphically unremarkable. NM/Bone Scan Three Phase IMPRESSION: 1. The increase in radiopharmaceutical concentration asymmetrically defined in the right ankle articulation on late projections only likely represents a component of degenerative arthritis. If infection remains a diagnostic consideration, correlation with gallium imaging or a labeled leukocyte scintigraphy is recommended. 2. Degenerative arthritis appears evident in the right forefoot and midfoot. Electronically Signed: Shalom Clark DO at 13:20 EST Tel , Service support , CC: Octavio Alvarez DO; James Gunderson DO; OUT OF TOWN DOCTOR Software Developer Mid Level: Signed CBC W/DIFF, AUTOMATED Collected: 10/13/2018 Status: F Source: [place] 1:33 PM [facility] REPOSITORY TYPE CODE TESTS RESULT OUT OF RANGE REFERENCE UNITS LAB L100.1000 4.4-11.0 K/mm3 Normal WBC 9.0 LAB L100.1200 4.6-6.2 M/mm3 Low RBC 3.23 LAB L100.1300 13.0-16.5 g/dl Low HGB 8.9 LAB L100.1400 40-54 % Low HCT 28.8 LAB L100.1500 80-94 fL Normal MCV 89.2 LAB L100.1600 27.0-32.0 pg Normal MCH 27.6 LAB L100.1700 32-36 g/gl Low MCHC 30.9 LAB L100.1810 11.6-14.6 % High RDW CV 15.0 LAB L100.1820 35.1-43.9 fl High RDW SD 49.0 LAB L100.1900 150-450 K/mm3 Normal PLT 151 LAB L100.2000 6.2-12.0 fl Normal MPV 9.6 LAB L100.2100 47-70 % High NEUT% 80.1 LAB L100.2200 19-41 % Low LY% 9.5 LAB L100.2300 0-10 % Normal MONO% 7.8 LAB L100.2400 0-5 % Normal EO% 2.1 LAB L100.2500 0-1 % Normal BASO% 0.4 LAB L100.2550 0.0-0.9 % Normal IM GRAN % 0.100 Result Comment: IG% - Immature Granulocytes (promyelocytes, myelocytes and metamyelocytes) > 1% indicates that a LEFT SHIFT is Present. LAB L100.2620 2.0-7.7 X10 3/uL Normal Absolute Neut 7.2 LAB L100.2720 0.83-4.51 X10 3/ul Normal Absolute Lymph 0.85 Performed By: #### L100.0100 #### [facility] [address] [place], [address] BASIC METABOLIC Collected: 10/13/2018 Status: F Source: [place] PROFILE ([facility]) 1:33 PM [facility] REPOSITORY TYPE CODE TESTS RESULT OUT OF RANGE REFERENCE UNITS LAB L501.0100 74-106 mg/dL High GLU 164 Result Comment: Fasting Glucose result greater than or equal to 126 mg/dL suggests DIABETES MELLITUS per A.D.A. criteria. Please note revised GLUCOSE reference range effective 2017. LAB L501.1000 7-18 mg/dL High BUN 60 LAB L501.1100 0.70-1.30 mg/dL High CREAT,SERUM 1.89 Result Comment: The validity of the calculated GFR AND GFRAA in patients over 70 years has not been determined. Clinical correlation is essential. LAB L501.1110 >60 mL/min Low EST GFR 39 Result Comment: Non- GFR Calc LAB L501.1115 >60 mL/min Low EST GFR - AA 47 Result Comment: GFR Calc LAB L501.1255 ml/min Normal Estimated CRCL 41.04 LAB L501.1300 10-20 RATIO High BUN/CRE 31.7 LAB L501.2200 8.5-10 mg/dL Normal .1 CA 8.7 LAB L501.5300 136-14 mmol/L Normal 5 NA 141 LAB L501.5600 3.5-5. mmol/L Normal 1 K 4.7 LAB L501.5900 98-107 mmol/L Normal CL 101 LAB L501.6100 21.0-3 mmol/L Normal 2.0 CO2 31.0 LAB L501.6200 5-15 Normal GAP 9 Performed By: #### L500.2500 #### [facility] [address] [place], [address] Observed: 10/13/2018 Status: F Source: [place] CULTURE, BLOOD (WB) 1:33 PM [facility] REPOSITORY BC No growth in 5 days. Performed By: #### M200.1000 #### [facility] [address] [place], [address] Observed: 10/13/2018 Status: F Source: [place] CULTURE, BLOOD (WB) 1:10 PM [facility] REPOSITORY BC No growth in 5 days. Performed By: #### M200.1000 #### [facility] [address] [place], [address] FOOT MIN 3 VIEWS Observed: 10/13/2018 Status: F Source: [place] 12:53 PM [facility] REPOSITORY [facility] Imaging Services [address] [place] [address] Foot min 3 Views MR#: [id number] Acct: [id number] Name: BRIGITTEGLADYSJADA W Rep #: [id number] : 1955 M 62 From: Boris Lizarraga MD PCP: Care Physician, No Primary Status: REG ER Study: Foot min 3 Views Date of Exam: 10/13/18 Exam# [id number] Ordering Dr: Justin Hammond MD STUDY: X-RAY - RIGHT FOOT CLINICAL: Male, 62 years old. Wound of lateral heel TECHNIQUE: 3 view(s) of the foot. COMPARISON: None. FINDINGS: There is no evidence of fracture or dislocation. There is faint lucency in the calcaneus which may represent osteomyelitis. There is subcutaneous air in the soft tissues overlying the heel, consistent with the patient's history of a wound. There is diffuse soft tissue swelling. RAD/Foot min 3 Views IMPRESSION: No fracture or dislocation. Subcutaneous air in the soft tissues overlying the heel, consistent with the patient's history of a wound. Faint lucency in the calcaneus adjacent to the wound. This may represent osteomyelitis. If indicated, further evaluation with MRI can BE performed. Diffuse soft tissue swelling. Electronically Signed: Boris Zia, at 14:07 EST Tel , Service support , CC: No Primary Care Physician; Justin Hammond Software Developer Mid Level: Signed VENOUS DUPLEX LOWER Observed: 10/04/2018 Status: F Source: [place] EXTREMITY 1:44 PM [facility] REPOSITORY [facility] Cardiovascular Services [address] [place] [address] Venous Duplex US, Unilateral 10/03/18 1017 MR#: [id number] Acct: [id number] Name: JADA COLUNGA Rep #: [id number] : 1955 62 From: Federico Delgado MD Attending Dr: KAYLEN RENE Status: REG CLI Ordering Dr: KAYLEN RENE Date: 10/03/18 Location: CVS Sex: M C Admitted: Reason For Study: Increase Swelling RIGHT LEFT GSV is normal. CFV is compressible, spontaneous, phasic, CFV is compressible, spontaneous, phasic, competent, and demonstrates normal competent and demonstrates normal augmentation. augmentation. FV is compressible, spontaneous, phasic, competent and demonstrates normal augmentation. POP V is compressible, spontaneous, phasic, competent and demonstrates normal augmentation. T/P Trunk is compressible. PTV is compressible. RT PerV is compressible. Procedure Exam performed in department. A preliminary report was called and/or faxed to Radha @ 10:36 am. Interpretation Summary Deep veins of the right lower extremity are patent and compressible segmentally. There is no evidence of right lower extremity deep vein thrombosis. Valvular competence appears intact within the proximal deep venous system on the right . The right greater saphenous vein appears patent and compressible segmentally. Ordering Physician: KAYLEN RENE Referring Physician: DOCTOR, OUT OF TOWN Performed By: sAhlie Bruce RVT, RDCS and Student 10/04/18 1344 Date Federico Delgado MD CC: No Primary Care Physician; KAYLEN RENE; OUT OF TOWN DOCTOR Date Dictated: 10/03/18 1017 Date Transcribed: 10/04/18 1344 Software Developer Mid Level: Signed CBC Collected: 09/30/2018 Status: F Source: [facility] 4:05 PM [facility] REPOSITORY TYPE CODE TESTS RESULT OUT OF REFERENCE UNITS RANGE LAB WBC(LOINC) 4.50-10.80 10 3/mcL WBC 8.50 LAB RBCCT(LOINC 4.50-6.00 10 6/mcL ) Low RBC 3.55 LAB HGB(LOINC) 13.0-17.5 G/dL Low Hgb 10.2 LAB HCT(LOINC) 40.0-52.0 % Low Hct 30.9 LAB MCV(LOINC) 81.0-100.0 fL MCV 87.0 LAB MCH(LOINC) 27.0-33.0 pg MCH 28.6 LAB MCHC(LOINC) 32.0-36.0 G/dL MCHC 32.9 LAB RDW(LOINC) 11.5-15.5 % RDW 14.7 LAB PLT(LOINC) 150-450 10 3/mcL Platelet 154 LAB MPV(LOINC) 6.4-10.5 fL MPV 8.7 Performed By: #### CBC, ADIFF, ANEU, PBNP, MG, GFR, BMP #### [place] [address] .AUTO DIFF Collected: 09/30/2018 Status: F Source: [facility] 4:05 [facility] REPOSITORY TYPE CODE TESTS RESULT OUT OF REFERENCE UNITS RANGE LAB MOLLY(LOINC) 50.0-75.0 % High Neutrophil % 77.5 LAB LYM(LOINC) 20.0-40.0 % Low Lymphocyte % 10.3 LAB MON(LOINC) 2.0-13.0 % Monocyte % 7.9 LAB EO(LOINC) 0.0-6.0 % Eosinophil % 3.5 LAB BAS(LOINC) 0.0-2.5 % Basophil % 0.8 LAB ABLYM(LOIN 0.90-4.32 10 3/mcL C) Lymphocyte, 0.90 Absolute LAB FRANK(LOINC 0.09-1.40 10 3/mcL ) Monocyte, 0.70 Absolute LAB AEOS(LOINC 0.00-0.65 10 3/mcL ) Eosinophil, 0.30 Absolute LAB ABAS(LOINC 0.00-0.27 10 3/mcL ) Basophil, 0.10 Absolute Performed By: #### CBC, ADIFF, ANEU, PBNP, MG, GFR, BMP #### [place] [address] .NEUABS Collected: 09/30/2018 Status: F Source: [facility] 4:05 [facility] REPOSITORY TYPE CODE TESTS RESULT OUT OF REFERENCE UNITS RANGE LAB ANEU(LOINC) 2.25-8.10 10 3/mcL Neutrophil, 6.60 Absolute Performed By: #### CBC, ADIFF, ANEU, PBNP, MG, GFR, BMP #### [place] [address] PBNP Collected: 09/30/2018 Status: F Source: [facility] 4:05 [facility] REPOSITORY TYPE CODE TESTS RESULT OUT OF REFERENCE UNITS RANGE LAB PBNP(LOINC) 0-900 pg/mL High N-Terminal 6134 proBNP Result Comment: NT-proBNP results of less than 300 pg/mL effectively rules out acute congestive heart failure with 99% negative predictive value. Performed By: #### CBC, ADIFF, ANEU, PBNP, MG, GFR, BMP #### [address] [address] MG Collected: 09/30/2018 Status: F Source: [facility] 4:05 PM [facility] REPOSITORY TYPE CODE TESTS RESULT OUT OF REFERENCE UNITS RANGE LAB MG(LOINC) 1.6-2.4 mg/dL Magnesium Lvl 2.2 Performed By: #### CBC, ADIFF, ANEU, PBNP, MG, GFR, BMP #### [address] [address] .GFR Collected: 09/30/2018 Status: F Source: [facility] 4:05 PM [facility] REPOSITORY TYPE CODE TESTS RESULT OUT OF REFERENCE UNITS RANGE LAB GFRAA(LOINC ml/min/1.73 ) sqm GFR 41 [place] Result Comment: GFR Population mean for , Non- Americans Ages 20-29 = 116 mL/min/1.73 sq.m. Ages 30-39 = 107 mL/min/1.73 sq.m. Ages 40-49 = 99 mL/min/1.73 sq.m. Ages 50-59 = 93 mL/min/1.73 sq.m. Ages 60-69 = 85 mL/min/1.73 sq.m. Ages 70+ = 75 mL/min/1.73 sq.m. Chronic Kidney Disease: Less than 60 mL/min/1.73 square meters End Stage Renal Disease: Less than 15 mL/min/1.73 square meters LAB GFRNO(LOINC) ml/min/1.73sqm GFR Non- 34 Result Comment: GFR Population mean for , Non- Americans Ages 20-29 = 116 mL/min/1.73 sq.m. Ages 30-39 = 107 mL/min/1.73 sq.m. Ages 40-49 = 99 mL/min/1.73 sq.m. Ages 50-59 = 93 mL/min/1.73 sq.m. Ages 60-69 = 85 mL/min/1.73 sq.m. Ages 70+ = 75 mL/min/1.73 sq.m. Chronic Kidney Disease: Less than 60 mL/min/1.73 square meters End Stage Renal Disease: Less than 15 mL/min/1.73 square meters Performed By: #### CBC, ADIFF, ANEU, PBNP, MG, GFR, BMP #### [address] [address] BMP Collected: 09/30/2018 Status: F Source: [facility] 4:05 PM [facility] REPOSITORY TYPE CODE TESTS RESULT OUT OF RANGE REFERENCE UNITS LAB GLU(LOINC) 82-115 mg/dL Glucose Abnormal Level 467 Alert LAB NA(LOINC) 136-145 mEq/L Sodium Level 137 LAB K(LOINC) 3.5-5.0 mEq/L Potassium Level 4.7 LAB CL(LOINC) 98-110 mEq/L Low Chloride 97 LAB CO2(LOINC) 22-32 mEq/L CO2 27 LAB EBAL(LOINC 4.0-15.0 mEq/L ) Electrolyte Balance 13.0 LAB BUN(LOINC) 8.0-22.0 mg/dL High BUN 60.0 LAB CRE(LOINC) 0.60-1.40 mg/dL High Creatinine Lvl (s) 2.03 LAB BC(LOINC) 10.0-22.0 ratio High BUN/Creatinine 29.6 Ratio LAB CA(LOINC) 8.4-10.1 mg/dL Calcium Lvl 8.8 Performed By: #### CBC, ADIFF, ANEU, PBNP, MG, GFR, BMP #### [address] [address] .GFR Collected: 09/19/2018 Status: F Source: [facility] 10:07 AM [facility] REPOSITORY TYPE CODE TESTS RESULT OUT OF REFERENCE UNITS RANGE LAB GFRAA(LOINC ml/min/1.73 ) sqm GFR 43 [place] Result Comment: GFR Population mean for , Non- Americans Ages 20-29 = 116 mL/min/1.73 sq.m. Ages 30-39 = 107 mL/min/1.73 sq.m. Ages 40-49 = 99 mL/min/1.73 sq.m. Ages 50-59 = 93 mL/min/1.73 sq.m. Ages 60-69 = 85 mL/min/1.73 sq.m. Ages 70+ = 75 mL/min/1.73 sq.m. Chronic Kidney Disease: Less than 60 mL/min/1.73 square meters End Stage Renal Disease: Less than 15 mL/min/1.73 square meters LAB GFRNO(LOINC) ml/min/1.73sqm GFR Non- 36 Result Comment: GFR Population mean for , Non- Americans Ages 20-29 = 116 mL/min/1.73 sq.m. Ages 30-39 = 107 mL/min/1.73 sq.m. Ages 40-49 = 99 mL/min/1.73 sq.m. Ages 50-59 = 93 mL/min/1.73 sq.m. Ages 60-69 = 85 mL/min/1.73 sq.m. Ages 70+ = 75 mL/min/1.73 sq.m. Chronic Kidney Disease: Less than 60 mL/min/1.73 square meters End Stage Renal Disease: Less than 15 mL/min/1.73 square meters Performed By: #### GFR, CMP #### [place] [address] CMP Collected: 09/19/2018 Status: F Source: [facility] 10:07 AM [facility]POSIT[facility] TYPE CODE TESTS RESULT OUT OF RANGE REFERENCE UNITS LAB GLU(LOINC) 82-115 mg/dL Glucose Abnormal Level 497 Alert LAB NA(LOINC) 136-145 mEq/L Low Sodium Level 130 LAB K(LOINC) 3.5-5.0 mEq/L High Potassium Level 5.5 LAB CL(LOINC) 98-110 mEq/L Low Chloride 94 LAB CO2(LOINC) 22-32 mEq/L CO2 23 LAB EBAL(LOINC 4.0-15.0 mEq/L ) Electrolyte Balance 13.0 LAB BUN(LOINC) 8.0-22.0 mg/dL High BUN 39.0 LAB CRE(LOINC) 0.60-1.40 mg/dL High Creatinine Lvl (s) 1.92 LAB BC(LOINC) 10.0-22.0 ratio BUN/Creatinine 20.3 Ratio LAB CA(LOINC) 8.4-10.1 mg/dL Calcium Lvl 8.5 LAB PROT(LOINC 6.0-8.5 G/dL ) Total Protein 7.4 LAB ALB(LOINC) 3.2-4.8 G/dL Albumin Level 3.8 LAB GLB(LOINC) 1.5-3.8 G/dL Globulin 3.6 LAB AG(LOINC) 0.9-1.6 ratio A/G Ratio 1.1 LAB BILT(LOINC 0.2-1.2 mg/dL ) Bili Total 0.7 LAB AP(LOINC) 38-126 U/L Alk Phos 117 LAB AST(LOINC) 8-34 U/L AST/SGOT 21 LAB ALT(LOINC) 12-55 U/L ALT/SGPT 21 Performed By: #### GFR, CMP #### [address] [address] BMP Collected: 09/10/2018 Status: F Source: [facility] 6:04 AM [facility] REPOSITORY TYPE CODE TESTS RESULT OUT OF REFERENCE UNITS RANGE LAB GLU(LOINC) 82-115 mg/dL Glucose High Level 140 LAB NA(LOINC) 136-145 mEq/L Sodium Level 141 LAB K(LOINC) 3.5-5.0 mEq/L Potassium Level 3.6 LAB CL(LOINC) 98-110 mEq/L Chloride 101 LAB CO2(LOINC) 22-32 mEq/L CO2 High 34 LAB EBAL(LOINC 4.0-15.0 mEq/L ) Electrolyte Balance 6.0 LAB BUN(LOINC) 8.0-22.0 mg/dL BUN High 31.0 LAB CRE(LOINC) 0.60-1.40 mg/dL Creatinine Lvl (s) 1.30 LAB BC(LOINC) 10.0-22.0 ratio High BUN/Creatinine 23.8 Ratio LAB CA(LOINC) 8.4-10.1 mg/dL Low Calcium Lvl 7.7 Performed By: #### BMP, GFR #### [address] [address] .GFR Collected: 09/10/2018 Status: F Source: [facility] 6:04 AM [facility] REPOSITORY TYPE CODE TESTS RESULT OUT OF REFERENCE UNITS RANGE LAB GFRAA(LOINC ml/min/1.73 ) sqm GFR >60 [place] Result Comment: GFR Population mean for , Non- Americans Ages 20-29 = 116 mL/min/1.73 sq.m. Ages 30-39 = 107 mL/min/1.73 sq.m. Ages 40-49 = 99 mL/min/1.73 sq.m. Ages 50-59 = 93 mL/min/1.73 sq.m. Ages 60-69 = 85 mL/min/1.73 sq.m. Ages 70+ = 75 mL/min/1.73 sq.m. Chronic Kidney Disease: Less than 60 mL/min/1.73 square meters End Stage Renal Disease: Less than 15 mL/min/1.73 square meters LAB GFRNO(LOINC) ml/min/1.73sqm GFR Non- 56 Result Comment: GFR Population mean for , Non- Americans Ages 20-29 = 116 mL/min/1.73 sq.m. Ages 30-39 = 107 mL/min/1.73 sq.m. Ages 40-49 = 99 mL/min/1.73 sq.m. Ages 50-59 = 93 mL/min/1.73 sq.m. Ages 60-69 = 85 mL/min/1.73 sq.m. Ages 70+ = 75 mL/min/1.73 sq.m. Chronic Kidney Disease: Less than 60 mL/min/1.73 square meters End Stage Renal Disease: Less than 15 mL/min/1.73 square meters Performed By: #### BMP, GFR #### [place] [address] US ABDOMEN FOR Observed: 09/09/2018 Status: F Source: [facility] ASCITES 9:00 AM [facility] REPOSITORY ORIGINAL US ABDOMEN FOR ASCITES CLINICAL STATEMENT: r/o ascites. COMPARISON: CT angiography chest with contrast 08/18/2017 FINDINGS: Limited 4 quadrant imaging of the abdomen demonstrate no abdominal ascites. IMPRESSION: Limited 4 quadrant imaging of the abdomen demonstrate no abdominal ascites. Interpreted By: Shavonne Myers MD Preliminary Report By: Shavonne Myers MD Electronically Signed By: Shavonne Myers MD Dictated Date: 09/09/2018 9:54:15 AM Prelim Date: 09/09/2018 9:54:15 AM Sign Date: 09/09/2018 9:58:50 AM CBC Collected: 09/09/2018 Status: F Source: [facility] 5:42 AM [facility] REPOSITORY TYPE CODE TESTS RESULT OUT OF REFERENCE UNITS RANGE LAB WBC(LOINC) 4.50-10.80 10 3/mcL WBC 7.20 LAB RBCCT(LOINC 4.50-6.00 10 6/mcL ) Low RBC 3.37 LAB HGB(LOINC) 13.0-17.5 G/dL Low Hgb 9.7 LAB HCT(LOINC) 40.0-52.0 % Low Hct 29.5 LAB MCV(LOINC) 81.0-100.0 fL MCV 87.7 LAB MCH(LOINC) 27.0-33.0 pg MCH 28.9 LAB MCHC(LOINC) 32.0-36.0 G/dL MCHC 32.9 LAB RDW(LOINC) 11.5-15.5 % High RDW 15.7 LAB PLT(LOINC) 150-450 10 3/mcL Low Platelet 111 LAB MPV(LOINC) 6.4-10.5 fL MPV 8.4 Performed By: #### CBC, ADIFF, ANEU, CMP, PBNP, GFR #### [address] [address] .AUTO DIFF Collected: 09/09/2018 Status: F Source: [facility] 5:42 AM [facility] REPOSITORY TYPE CODE TESTS RESULT OUT OF REFERENCE UNITS RANGE LAB MOLLY(LOINC) 50.0-75.0 % Neutrophil % 73.1 LAB LYM(LOINC) 20.0-40.0 % Low Lymphocyte % 15.1 LAB MON(LOINC) 2.0-13.0 % Monocyte % 8.0 LAB EO(LOINC) 0.0-6.0 % Eosinophil % 3.1 LAB BAS(LOINC) 0.0-2.5 % Basophil % 0.7 LAB ABLYM(LOIN 0.90-4.32 10 3/mcL C) Lymphocyte, 1.10 Absolute LAB FRANK(LOINC 0.09-1.40 10 3/mcL ) Monocyte, 0.60 Absolute LAB AEOS(LOINC 0.00-0.65 10 3/mcL ) Eosinophil, 0.20 Absolute LAB ABAS(LOINC 0.00-0.27 10 3/mcL ) Basophil, 0.10 Absolute Performed By: #### CBC, ADIFF, ANEU, CMP, PBNP, GFR #### [address] [address] .NEUABS Collected: 09/09/2018 Status: F Source: [facility] 5:42 AM [facility] REPOSITORY TYPE CODE TESTS RESULT OUT OF REFERENCE UNITS RANGE LAB ANEU(LOINC) 2.25-8.10 10 3/mcL Neutrophil, 5.30 Absolute Performed By: #### CBC, ADIFF, ANEU, CMP, PBNP, GFR #### [address] [address] CMP Collected: 09/09/2018 Status: F Source: [facility] 5:42 AM [facility] REPOSITORY TYPE CODE TESTS RESULT OUT OF REFERENCE UNITS RANGE LAB GLU(LOINC) 82-115 mg/dL Glucose High Level 251 LAB NA(LOINC) 136-145 mEq/L Sodium Level 139 LAB K(LOINC) 3.5-5.0 mEq/L Potassium Level 4.1 LAB CL(LOINC) 98-110 mEq/L Chloride 101 LAB CO2(LOINC) 22-32 mEq/L CO2 High 35 LAB EBAL(LOINC 4.0-15.0 mEq/L ) Low Electrolyte Balance 3.0 LAB BUN(LOINC) 8.0-22.0 mg/dL BUN High 33.0 LAB CRE(LOINC) 0.60-1.40 mg/dL Creatinine High Lvl (s) 1.56 LAB BC(LOINC) 10.0-22.0 ratio BUN/Creatinine 21.2 Ratio LAB CA(LOINC) 8.4-10.1 mg/dL Low Calcium Lvl 8.3 LAB PROT(LOINC 6.0-8.5 G/dL ) Total Protein 6.6 LAB ALB(LOINC) 3.2-4.8 G/dL Albumin Level 3.3 LAB GLB(LOINC) 1.5-3.8 G/dL Globulin 3.3 LAB AG(LOINC) 0.9-1.6 ratio A/G Ratio 1.0 LAB BILT(LOINC 0.2-1.2 mg/dL ) Bili Total 0.8 LAB AP(LOINC) 38-126 U/L Alk Phos 101 LAB AST(LOINC) 8-34 U/L AST/SGOT 16 LAB ALT(LOINC) 12-55 U/L ALT/SGPT 17 Performed By: #### CBC, ADIFF, ANEU, CMP, PBNP, GFR #### [address] [address] PBNP Collected: 09/09/2018 Status: F Source: [facility] 5:42 AM [facility] REPOSITORY TYPE CODE TESTS RESULT OUT OF REFERENCE UNITS RANGE LAB PBNP(LOINC) 0-900 pg/mL High N-Terminal 5825 proBNP Result Comment: NT-proBNP results of less than 300 pg/mL effectively rules out acute congestive heart failure with 99% negative predictive value. Performed By: #### CBC, ADIFF, ANEU, CMP, PBNP, GFR #### [address] [address] .GFR Collected: 09/09/2018 Status: F Source: [facility] 5:42 AM [facility] REPOSITORY TYPE CODE TESTS RESULT OUT OF REFERENCE UNITS RANGE LAB GFRAA(LOINC ml/min/1.73 ) sqm GFR 55 [place] Result Comment: GFR Population mean for , Non- Americans Ages 20-29 = 116 mL/min/1.73 sq.m. Ages 30-39 = 107 mL/min/1.73 sq.m. Ages 40-49 = 99 mL/min/1.73 sq.m. Ages 50-59 = 93 mL/min/1.73 sq.m. Ages 60-69 = 85 mL/min/1.73 sq.m. Ages 70+ = 75 mL/min/1.73 sq.m. Chronic Kidney Disease: Less than 60 mL/min/1.73 square meters End Stage Renal Disease: Less than 15 mL/min/1.73 square meters LAB GFRNO(LOINC) ml/min/1.73sqm GFR Non- 45 Result Comment: GFR Population mean for , Non- Americans Ages 20-29 = 116 mL/min/1.73 sq.m. Ages 30-39 = 107 mL/min/1.73 sq.m. Ages 40-49 = 99 mL/min/1.73 sq.m. Ages 50-59 = 93 mL/min/1.73 sq.m. Ages 60-69 = 85 mL/min/1.73 sq.m. Ages 70+ = 75 mL/min/1.73 sq.m. Chronic Kidney Disease: Less than 60 mL/min/1.73 square meters End Stage Renal Disease: Less than 15 mL/min/1.73 square meters Performed By: #### CBC, ADIFF, ANEU, CMP, PBNP, GFR #### [address] [address] TROPI Collected: 09/09/2018 Status: F Source: [facility] 12:17 AM [facility] REPOSITORY TYPE CODE TESTS RESULT OUT OF REFERENCE UNITS RANGE LAB TROPI(LOINC 0.000-0.040 ng/mL ) Troponin I 0.031 Result Comment: Troponin I reference ranges (06/28/14): 0.00-0.040 ng/mL Negative and non-diagnostic. >0.040 ng/mL Consistent with cardiac damage, increased clinical risk and possibility of myocardial infarction. Serial measurements, a rise & fall in test results, clinical history, appropriate symptoms and/or ECG changes may help assess possibility of UT. *Other non-acute coronary syndrome conditions such as CHF, myocarditis, pulmonary emboli, sepsis and cardiac surgery could result in myocardial damage and increased troponin levels. Performed By: #### TROPI #### [address] [address] TROPI Collected: 09/08/2018 Status: F Source: [facility] 7:25 PM [facility] REPOSITORY TYPE CODE TESTS RESULT OUT OF REFERENCE UNITS RANGE LAB TROPI(LOINC 0.000-0.040 ng/mL ) Troponin I 0.026 Result Comment: Troponin I reference ranges (06/28/14): 0.00-0.040 ng/mL Negative and non-diagnostic. >0.040 ng/mL Consistent with cardiac damage, increased clinical risk and possibility of myocardial infarction. Serial measurements, a rise & fall in test results, clinical history, appropriate symptoms and/or ECG changes may help assess possibility of UT. *Other non-acute coronary syndrome conditions such as CHF, myocarditis, pulmonary emboli, sepsis and cardiac surgery could result in myocardial damage and increased troponin levels. Performed By: #### TROPI #### [address] [address] TSH Collected: 09/08/2018 Status: F Source: [facility] 7:25 PM [facility] REPOSITORY TYPE CODE TESTS RESULT OUT OF RANGE REFERENCE UNITS LAB TSH(LOINC) 0.360-3.740 mcIU/mL TSH 1.760 Result Comment: Please note as of 05/04/17 new pediatric reference intervals were added for this test. Performed By: #### TSH #### [place] [address] CBC Collected: 09/08/2018 Status: F Source: [facility] 11:29 AM [facility] REPOSITORY TYPE CODE TESTS RESULT OUT OF REFERENCE UNITS RANGE LAB WBC(LOINC) 4.50-10.80 10 3/mcL WBC 7.10 LAB RBCCT(LOINC 4.50-6.00 10 6/mcL ) Low RBC 3.40 LAB HGB(LOINC) 13.0-17.5 G/dL Low Hgb 9.9 LAB HCT(LOINC) 40.0-52.0 % Low Hct 29.7 LAB MCV(LOINC) 81.0-100.0 fL MCV 87.3 LAB MCH(LOINC) 27.0-33.0 pg MCH 29.0 LAB MCHC(LOINC) 32.0-36.0 G/dL MCHC 33.3 LAB RDW(LOINC) 11.5-15.5 % RDW 15.2 LAB PLT(LOINC) 150-450 10 3/mcL Low Platelet 112 LAB MPV(LOINC) 6.4-10.5 fL MPV 8.3 Performed By: #### CBC, ADIFF, ANEU, GFR, BMP, TROPI #### [place] [id number] .AUTO DIFF Collected: 09/08/2018 Status: F Source: [facility] 11:29 AM [facility] REPOSITORY TYPE CODE TESTS RESULT OUT OF REFERENCE UNITS RANGE LAB MOLLY(LOINC) 50.0-75.0 % High Neutrophil % 76.8 LAB LYM(LOINC) 20.0-40.0 % Low Lymphocyte % 11.4 LAB MON(LOINC) 2.0-13.0 % Monocyte % 8.6 LAB EO(LOINC) 0.0-6.0 % Eosinophil % 2.5 LAB BAS(LOINC) 0.0-2.5 % Basophil % 0.7 LAB ABLYM(LOIN 0.90-4.32 10 3/mcL C) Low Lymphocyte, 0.80 Absolute LAB FRANK(LOINC 0.09-1.40 10 3/mcL ) Monocyte, 0.60 Absolute LAB AEOS(LOINC 0.00-0.65 10 3/mcL ) Eosinophil, 0.20 Absolute LAB ABAS(LOINC 0.00-0.27 10 3/mcL ) Basophil, 0.00 Absolute Performed By: #### CBC, ADIFF, ANEU, GFR, BMP, TROPI #### [address] [id number] .NEUABS Collected: 09/08/2018 Status: F Source: [facility] 11:29 AM [facility] REPOSITORY TYPE CODE TESTS RESULT OUT OF REFERENCE UNITS RANGE LAB ANEU(LOINC) 2.25-8.10 10 3/mcL Neutrophil, 5.40 Absolute Performed By: #### CBC, ADIFF, ANEU, GFR, BMP, TROPI #### [address] [address] .GFR Collected: 09/08/2018 Status: F Source: [facility] 11:29 AM [facility] REPOSITORY TYPE CODE TESTS RESULT OUT OF REFERENCE UNITS RANGE LAB GFRAA(LOINC ml/min/1.73 ) sqm GFR >60 [place] Result Comment: GFR Population mean for , Non- Americans Ages 20-29 = 116 mL/min/1.73 sq.m. Ages 30-39 = 107 mL/min/1.73 sq.m. Ages 40-49 = 99 mL/min/1.73 sq.m. Ages 50-59 = 93 mL/min/1.73 sq.m. Ages 60-69 = 85 mL/min/1.73 sq.m. Ages 70+ = 75 mL/min/1.73 sq.m. Chronic Kidney Disease: Less than 60 mL/min/1.73 square meters End Stage Renal Disease: Less than 15 mL/min/1.73 square meters LAB GFRNO(LOINC) ml/min/1.73sqm GFR Non- 50 Result Comment: GFR Population mean for , Non- Americans Ages 20-29 = 116 mL/min/1.73 sq.m. Ages 30-39 = 107 mL/min/1.73 sq.m. Ages 40-49 = 99 mL/min/1.73 sq.m. Ages 50-59 = 93 mL/min/1.73 sq.m. Ages 60-69 = 85 mL/min/1.73 sq.m. Ages 70+ = 75 mL/min/1.73 sq.m. Chronic Kidney Disease: Less than 60 mL/min/1.73 square meters End Stage Renal Disease: Less than 15 mL/min/1.73 square meters Performed By: #### CBC, ADIFF, ANEU, GFR, BMP, TROPI #### [address] [address] BMP Collected: 09/08/2018 Status: F Source: [facility] 11:29 AM [facility] REPOSITORY TYPE CODE TESTS RESULT OUT OF RANGE REFERENCE UNITS LAB GLU(LOINC) 82-115 mg/dL Glucose Abnormal Level 417 Alert LAB NA(LOINC) 136-145 mEq/L Sodium Level 136 LAB K(LOINC) 3.5-5.0 mEq/L Potassium Level 4.4 LAB CL(LOINC) 98-110 mEq/L Chloride 99 LAB CO2(LOINC) 22-32 mEq/L CO2 28 LAB EBAL(LOINC 4.0-15.0 mEq/L ) Electrolyte Balance 9.0 LAB BUN(LOINC) 8.0-22.0 mg/dL High BUN 30.0 LAB CRE(LOINC) 0.60-1.40 mg/dL High Creatinine Lvl (s) 1.43 LAB BC(LOINC) 10.0-22.0 ratio BUN/Creatinine 21.0 Ratio LAB CA(LOINC) 8.4-10.1 mg/dL Calcium Lvl 8.7 Performed By: #### CBC, ADIFF, ANEU, GFR, BMP, TROPI #### [address] [address] TROPI Collected: 09/08/2018 Status: F Source: [facility] 11:29 [facility] REPOSITORY TYPE CODE TESTS RESULT OUT OF REFERENCE UNITS RANGE LAB TROPI(LOINC 0.000-0.040 ng/mL ) Troponin I 0.023 Result Comment: Troponin I reference ranges (06/28/14): 0.00-0.040 ng/mL Negative and non-diagnostic. >0.040 ng/mL Consistent with cardiac damage, increased clinical risk and possibility of myocardial infarction. Serial measurements, a rise & fall in test results, clinical history, appropriate symptoms and/or ECG changes may help assess possibility of UT. *Other non-acute coronary syndrome conditions such as CHF, myocarditis, pulmonary emboli, sepsis and cardiac surgery could result in myocardial damage and increased troponin levels. Performed By: #### CBC, ADIFF, ANEU, GFR, BMP, TROPI #### [place] [id number] [id number] XR CHEST 1 VIEW Observed: 09/08/2018 Status: F Source: [facility] 11:19 AM [facility] REPOSITORY ORIGINAL Chest one view 11:34 AM 09/08/2018 HISTORY: Chest pain COMPARISON: 08/13/2018 Port catheter terminates at the caudal SVC. Pacemaker unit and wire are unchanged. Mild to moderate cardiomegaly is present without vascular congestion. The lungs appear clear and there is no pleural fluid seen. Interpreted By: Justin Doss MD Preliminary Report By: Justin Doss MD Electronically Signed By: Justin Doss MD Dictated Date: 09/08/2018 11:38:53 AM Prelim Date: 09/08/2018 11:38:53 AM Sign Date: 09/08/2018 11:39:23 AM TROPI Collected: 08/13/2018 Status: F Source: [facility] 7:42 AM [facility] REPOSITORY TYPE CODE TESTS RESULT OUT OF REFERENCE UNITS RANGE LAB TROPI(LOINC 0.000-0.040 ng/mL ) Troponin I 0.037 Result Comment: Troponin I reference ranges (06/28/14): 0.00-0.040 ng/mL Negative and non-diagnostic. >0.040 ng/mL Consistent with cardiac damage, increased clinical risk and possibility of myocardial infarction. Serial measurements, a rise & fall in test results, clinical history, appropriate symptoms and/or ECG changes may help assess possibility of UT. *Other non-acute coronary syndrome conditions such as CHF, myocarditis, pulmonary emboli, sepsis and cardiac surgery could result in myocardial damage and increased troponin levels. Performed By: #### TROPI #### [facility] [address] [place] [address] PBNP Collected: 08/13/2018 Status: F Source: [facility] 6:37 AM [facility] REPOSITORY TYPE CODE TESTS RESULT OUT OF REFERENCE UNITS RANGE LAB PBNP(LOINC) 0-900 pg/mL High N-Terminal 3200 proBNP Result Comment: NT-proBNP results of less than 300 pg/mL effectively rules out acute congestive heart failure with 99% negative predictive value. Performed By: #### PBNP #### [address] [address] XR CHEST 2 VIEWS Observed: 08/13/2018 Status: F Source: [facility] 6:19 AM [facility] REPOSITORY ORIGINAL Clinical history: Chest pain. Vomiting. COMPARISON: Chest x-ray on 06/29/2018. PA and lateral radiographs of the chest were obtained. LEFT subclavian defibrillator is in place. The heart size is at the upper limits of normal. Patient has had sternotomy. RIGHT chest port is in place with catheter tip in the RIGHT atrium. The lungs are well aerated. No infiltrate or pulmonary edema is present. There is no sign of pleural fluid or pneumothorax. IMPRESSION: Defibrillator in place. No sign of acute chest abnormality. Interpreted By: Yo Santos MD Preliminary Report By: Yo Santos MD Electronically Signed By: Yo Santos MD Dictated Date: 08/13/2018 6:35:58 AM Prelim Date: 08/13/2018 6:35:58 AM Sign Date: 08/13/2018 6:37:55 AM CBC Collected: 08/13/2018 Status: F Source: [facility] 6:17 AM [facility] REPOSITORY TYPE CODE TESTS RESULT OUT OF REFERENCE UNITS RANGE LAB WBC(LOINC) 4.50-10.80 10 3/mcL WBC 9.20 LAB RBCCT(LOINC 4.50-6.00 10 6/mcL ) Low RBC 4.12 LAB HGB(LOINC) 13.0-17.5 G/dL Low Hgb 11.7 LAB HCT(LOINC) 40.0-52.0 % Low Hct 35.3 LAB MCV(LOINC) 81.0-100.0 fL MCV 85.7 LAB MCH(LOINC) 27.0-33.0 pg MCH 28.5 LAB MCHC(LOINC) 32.0-36.0 G/dL MCHC 33.2 LAB RDW(LOINC) 11.5-15.5 % RDW 14.5 LAB PLT(LOINC) 150-450 10 3/mcL Platelet 153 LAB MPV(LOINC) 6.4-10.5 fL MPV 8.1 Performed By: #### CBC, ADIFF, ANEU, GFR, CMP, TROPI #### [place] [id number] .AUTO DIFF Collected: 08/13/2018 Status: F Source: [facility] 6:17 AM [facility] REPOSITORY TYPE CODE TESTS RESULT OUT OF REFERENCE UNITS RANGE LAB MOLLY(LOINC) 50.0-75.0 % Neutrophil % 73.3 LAB LYM(LOINC) 20.0-40.0 % Low Lymphocyte % 14.5 LAB MON(LOINC) 2.0-13.0 % Monocyte % 8.6 LAB EO(LOINC) 0.0-6.0 % Eosinophil % 2.4 LAB BAS(LOINC) 0.0-2.5 % Basophil % 1.2 LAB ABLYM(LOIN 0.90-4.32 10 3/mcL C) Lymphocyte, 1.30 Absolute LAB FRANK(LOINC 0.09-1.40 10 3/mcL ) Monocyte, 0.80 Absolute LAB AEOS(LOINC 0.00-0.65 10 3/mcL ) Eosinophil, 0.20 Absolute LAB ABAS(LOINC 0.00-0.27 10 3/mcL ) Basophil, 0.10 Absolute Performed By: #### CBC, ADIFF, ANEU, GFR, CMP, TROPI #### [place] [address] .NEUABS Collected: 08/13/2018 Status: F Source: [facility] 6:17 AM [facility] REPOSITORY TYPE CODE TESTS RESULT OUT OF REFERENCE UNITS RANGE LAB ANEU(LOINC) 2.25-8.10 10 3/mcL Neutrophil, 6.80 Absolute Performed By: #### CBC, ADIFF, ANEU, GFR, CMP, TROPI #### [place] [address] .GFR Collected: 08/13/2018 Status: F Source: [facility] 6:17 AM [facility] REPOSITORY TYPE CODE TESTS RESULT OUT OF REFERENCE UNITS RANGE LAB GFRAA(LOINC ml/min/1.73 ) sqm GFR >60 [place] Result Comment: GFR Population mean for , Non- Americans Ages 20-29 = 116 mL/min/1.73 sq.m. Ages 30-39 = 107 mL/min/1.73 sq.m. Ages 40-49 = 99 mL/min/1.73 sq.m. Ages 50-59 = 93 mL/min/1.73 sq.m. Ages 60-69 = 85 mL/min/1.73 sq.m. Ages 70+ = 75 mL/min/1.73 sq.m. Chronic Kidney Disease: Less than 60 mL/min/1.73 square meters End Stage Renal Disease: Less than 15 mL/min/1.73 square meters LAB GFRNO(LOINC) ml/min/1.73sqm GFR Non- >60 Result Comment: GFR Population mean for , Non- Americans Ages 20-29 = 116 mL/min/1.73 sq.m. Ages 30-39 = 107 mL/min/1.73 sq.m. Ages 40-49 = 99 mL/min/1.73 sq.m. Ages 50-59 = 93 mL/min/1.73 sq.m. Ages 60-69 = 85 mL/min/1.73 sq.m. Ages 70+ = 75 mL/min/1.73 sq.m. Chronic Kidney Disease: Less than 60 mL/min/1.73 square meters End Stage Renal Disease: Less than 15 mL/min/1.73 square meters Performed By: #### CBC, ADIFF, ANEU, GFR, CMP, TROPI #### [place] [address] CMP Collected: 08/13/2018 Status: F Source: [facility] 6:17 AM [facility] TYPE CODE TESTS RESULT OUT OF REFERENCE UNITS RANGE LAB GLU(LOINC) 82-115 mg/dL Glucose High Level 236 LAB NA(LOINC) 136-145 mEq/L Sodium Level 138 LAB K(LOINC) 3.5-5.0 mEq/L Potassium Level 4.5 LAB CL(LOINC) 98-110 mEq/L Chloride 102 LAB CO2(LOINC) 22-32 mEq/L CO2 28 LAB EBAL(LOINC 4.0-15.0 mEq/L ) Electrolyte Balance 8.0 LAB BUN(LOINC) 8.0-22.0 mg/dL BUN 19.0 LAB CRE(LOINC) 0.60-1.40 mg/dL Creatinine Lvl (s) 1.10 LAB BC(LOINC) 10.0-22.0 ratio BUN/Creatinine 17.3 Ratio LAB CA(LOINC) 8.4-10.1 mg/dL Calcium Lvl 8.7 LAB PROT(LOINC 6.0-8.5 G/dL ) Total Protein 7.3 LAB ALB(LOINC) 3.2-4.8 G/dL Albumin Level 3.6 LAB GLB(LOINC) 1.5-3.8 G/dL Globulin 3.7 LAB AG(LOINC) 0.9-1.6 ratio A/G Ratio 1.0 LAB BILT(LOINC 0.2-1.2 mg/dL ) Bili Total 0.7 LAB AP(LOINC) 38-126 U/L Alk Phos 117 LAB AST(LOINC) 8-34 U/L AST/SGOT 16 LAB ALT(LOINC) 12-55 U/L ALT/SGPT 19 Performed By: #### CBC, ADIFF, ANEU, GFR, CMP, TROPI #### [address] [address] TROPI Collected: 08/13/2018 Status: F Source: [employer] [facility] 6:17 AM [facility] REPOSITORY TYPE CODE TESTS RESULT OUT OF REFERENCE UNITS RANGE LAB TROPI(LOINC 0.000-0.040 ng/mL ) Troponin I 0.036 Result Comment: Troponin I reference ranges (06/28/14): 0.00-0.040 ng/mL Negative and non-diagnostic. >0.040 ng/mL Consistent with cardiac damage, increased clinical risk and possibility of myocardial infarction. Serial measurements, a rise & fall in test results, clinical history, appropriate symptoms and/or ECG changes may help assess possibility of UT. *Other non-acute coronary syndrome conditions such as CHF, myocarditis, pulmonary emboli, sepsis and cardiac surgery could result in myocardial damage and increased troponin levels. Performed By: #### CBC, ADIFF, ANEU, GFR, CMP, TROPI #### [address] [address] CBC Collected: 07/01/2018 Status: F Source: [facility] 3:15 AM [facility] REPOSITORY TYPE CODE TESTS RESULT OUT OF REFERENCE UNITS RANGE LAB WBC(LOINC) 4.50-10.80 10 3/mcL WBC 7.00 LAB RBCCT(LOINC 4.50-6.00 10 6/mcL ) Low RBC 3.38 LAB HGB(LOINC) 13.0-17.5 G/dL Low Hgb 9.9 LAB HCT(LOINC) 40.0-52.0 % Low Hct 29.4 LAB MCV(LOINC) 81.0-100.0 fL MCV 87.1 LAB MCH(LOINC) 27.0-33.0 pg MCH 29.2 LAB MCHC(LOINC) 32.0-36.0 G/dL MCHC 33.5 LAB RDW(LOINC) 11.5-15.5 % RDW 14.2 LAB PLT(LOINC) 150-450 10 3/mcL Low Platelet 125 LAB MPV(LOINC) 6.4-10.5 fL MPV 8.1 Performed By: #### CBC, ADIFF, ANEU, BMP, GFR #### [address] [address] .AUTO DIFF Collected: 07/01/2018 Status: F Source: [facility] 3:15 AM [facility] REPOSITORY TYPE CODE TESTS RESULT OUT OF REFERENCE UNITS RANGE LAB MOLLY(LOINC) 50.0-75.0 % Neutrophil % 59.5 LAB LYM(LOINC) 20.0-40.0 % Lymphocyte % 22.5 LAB MON(LOINC) 2.0-13.0 % Monocyte High % 13.1 LAB EO(LOINC) 0.0-6.0 % Eosinophil % 3.7 LAB BAS(LOINC) 0.0-2.5 % Basophil % 1.2 LAB ABLYM(LOIN 0.90-4.32 10 3/mcL C) Lymphocyte, 1.60 Absolute LAB FRANK(LOINC 0.09-1.40 10 3/mcL ) Monocyte, 0.90 Absolute LAB AEOS(LOINC 0.00-0.65 10 3/mcL ) Eosinophil, 0.30 Absolute LAB ABAS(LOINC 0.00-0.27 10 3/mcL ) Basophil, 0.10 Absolute Performed By: #### CBC, ADIFF, ANEU, BMP, GFR #### [address] [address] .NEUABS Collected: 07/01/2018 Status: F Source: [facility] 3:15 AM [facility] REPOSITORY TYPE CODE TESTS RESULT OUT OF REFERENCE UNITS RANGE LAB ANEU(LOINC) 2.25-8.10 10 3/mcL Neutrophil, 4.20 Absolute Performed By: #### CBC, ADIFF, ANEU, BMP, GFR #### [address] [address] BMP Collected: 07/01/2018 Status: F Source: [facility] 3:15 AM [facility] REPOSITORY TYPE CODE TESTS RESULT OUT OF REFERENCE UNITS RANGE LAB GLU(LOINC) 82-115 mg/dL Glucose Level 106 LAB NA(LOINC) 136-145 mEq/L Low Sodium Level 135 LAB K(LOINC) 3.5-5.0 mEq/L Potassium Level 4.6 LAB CL(LOINC) 98-110 mEq/L Chloride 100 LAB CO2(LOINC) 22-32 mEq/L CO2 27 LAB EBAL(LOINC 4.0-15.0 mEq/L ) Electrolyte Balance 8.0 LAB BUN(LOINC) 8.0-22.0 mg/dL BUN High 44.0 LAB CRE(LOINC) 0.60-1.40 mg/dL Creatinine High Lvl (s) 1.51 LAB BC(LOINC) 10.0-22.0 ratio High BUN/Creatinine 29.1 Ratio LAB CA(LOINC) 8.4-10.1 mg/dL Low Calcium Lvl 8.3 Performed By: #### CBC, ADIFF, ANEU, BMP, GFR #### [address] [address] .GFR Collected: 07/01/2018 Status: F Source: [facility] 3:15 AM [facility] REPOSITORY TYPE CODE TESTS RESULT OUT OF REFERENCE UNITS RANGE LAB GFRAA(LOINC ml/min/1.73 ) sqm GFR 57 [place] Result Comment: GFR Population mean for , Non- Americans Ages 20-29 = 116 mL/min/1.73 sq.m. Ages 30-39 = 107 mL/min/1.73 sq.m. Ages 40-49 = 99 mL/min/1.73 sq.m. Ages 50-59 = 93 mL/min/1.73 sq.m. Ages 60-69 = 85 mL/min/1.73 sq.m. Ages 70+ = 75 mL/min/1.73 sq.m. Chronic Kidney Disease: Less than 60 mL/min/1.73 square meters End Stage Renal Disease: Less than 15 mL/min/1.73 square meters LAB GFRNO(LOINC) ml/min/1.73sqm GFR Non- 47 Result Comment: GFR Population mean for , Non- Americans Ages 20-29 = 116 mL/min/1.73 sq.m. Ages 30-39 = 107 mL/min/1.73 sq.m. Ages 40-49 = 99 mL/min/1.73 sq.m. Ages 50-59 = 93 mL/min/1.73 sq.m. Ages 60-69 = 85 mL/min/1.73 sq.m. Ages 70+ = 75 mL/min/1.73 sq.m. Chronic Kidney Disease: Less than 60 mL/min/1.73 square meters End Stage Renal Disease: Less than 15 mL/min/1.73 square meters Performed By: #### CBC, ADIFF, ANEU, BMP, GFR #### [place] [address] [address] HEAD OR BRAIN W/O Observed: 06/30/2018 Status: F Source: [facility] 11:18 AM [facility] REPOSITORY ORIGINAL CT HEAD OR BRAIN W/O CONTRAST CLINICAL STATEMENT: New right-sided facial droop with numbness. TECHNIQUE: Axial CT images from skull base to vertex without IV contrast. This exam was performed according to our departmental dose optimization program, and includes the following measures where appli cable: automated exposure control, adjustment of the mAs and/or kVp according to patient size and/or exam, and an iterative reconstruction algorithm. COMPARISON: CT head, 02/08/2018, 09/24/2017 FINDINGS: There is no acute intracranial hemorrhage or fracture axial fluid collection. No mass lesion, mass effect, midline shift, or CT evidence for acute territorial infarction is identified. The barbara tricles and cisternal spaces are within normal limits. Dense atheromatous calcifications are seen in the distal vertebral arteries and carotid siphons. There are patchy foci of hypoattenuation supratentorial white matter tracts favoring sequela of mild, chr onic microvascular angiopathy. There are remote lacunar infarction is seen within the dorsolateral LEFT thalamus. The skull base and calvarium are intact. The visualized paranasal sinuses and dependent mastoid cavities are unopacified. IMPRESSION: No acute intracranial abnormality or significant change compared to 02/08/2018. I have personally reviewed the images of this examination and agree with the resident's findings and interpretation. Interpreted By: Harini Gold MD Preliminary Report By: lCint Landrum MD Electronically Signed By: Harini Gold MD Dictated Date: 06/30/2018 11:34:28 AM Prelim Date: 06/30/2018 11:44:52 AM Sign Date: 06/30/2018 12:26:45 PM CBC Collected: 06/30/2018 Status: F Source: [facility] 4:35 AM [facility] REPOSITORY TYPE CODE TESTS RESULT OUT OF REFERENCE UNITS RANGE LAB WBC(LOINC) 4.50-10.80 10 3/mcL WBC 10.10 LAB RBCCT(LOINC 4.50-6.00 10 6/mcL ) Low RBC 3.57 LAB HGB(LOINC) 13.0-17.5 G/dL Low Hgb 10.4 LAB HCT(LOINC) 40.0-52.0 % Low Hct 30.7 LAB MCV(LOINC) 81.0-100.0 fL MCV 86.1 LAB MCH(LOINC) 27.0-33.0 pg MCH 29.1 LAB MCHC(LOINC) 32.0-36.0 G/dL MCHC 33.8 LAB RDW(LOINC) 11.5-15.5 % RDW 14.1 LAB PLT(LOINC) 150-450 10 3/mcL Low Platelet 130 LAB MPV(LOINC) 6.4-10.5 fL MPV 7.9 Performed By: #### CBC, ADIFF, ANEU, BMP, GFR #### [place] [address] .AUTO DIFF Collected: 06/30/2018 Status: F Source: [facility] 4:35 AM [facility] REPOSITORY TYPE CODE TESTS RESULT OUT OF REFERENCE UNITS RANGE LAB MOLLY(LOINC) 50.0-75.0 % High Neutrophil % 79.2 LAB LYM(LOINC) 20.0-40.0 % Low Lymphocyte % 11.7 LAB MON(LOINC) 2.0-13.0 % Monocyte % 7.3 LAB EO(LOINC) 0.0-6.0 % Eosinophil % 1.4 LAB BAS(LOINC) 0.0-2.5 % Basophil % 0.4 LAB ABLYM(LOIN 0.90-4.32 10 3/mcL C) Lymphocyte, 1.20 Absolute LAB FRANK(LOINC 0.09-1.40 10 3/mcL ) Monocyte, 0.70 Absolute LAB AEOS(LOINC 0.00-0.65 10 3/mcL ) Eosinophil, 0.10 Absolute LAB ABAS(LOINC 0.00-0.27 10 3/mcL ) Basophil, 0.00 Absolute Performed By: #### CBC, ADIFF, ANEU, BMP, GFR #### [place] [address] .NEUABS Collected: 06/30/2018 Status: F Source: [facility] 4:35 AM [facility] REPOSITORY TYPE CODE TESTS RESULT OUT OF REFERENCE UNITS RANGE LAB ANEU(LOINC) 2.25-8.10 10 3/mcL Neutrophil, 7.90 Absolute Performed By: #### CBC, ADIFF, ANEU, BMP, GFR #### [place] [address] BMP Collected: 06/30/2018 Status: F Source: [facility] 4:35 AM [facility] REPOSITORY TYPE CODE TESTS RESULT OUT OF REFERENCE UNITS RANGE LAB GLU(LOINC) 82-115 mg/dL Glucose High Level 143 LAB NA(LOINC) 136-145 mEq/L Low Sodium Level 133 LAB K(LOINC) 3.5-5.0 mEq/L Potassium Level 4.7 LAB CL(LOINC) 98-110 mEq/L Low Chloride 97 LAB CO2(LOINC) 22-32 mEq/L CO2 26 LAB EBAL(LOINC 4.0-15.0 mEq/L ) Electrolyte Balance 10.0 LAB BUN(LOINC) 8.0-22.0 mg/dL BUN High 44.0 LAB CRE(LOINC) 0.60-1.40 mg/dL Creatinine High Lvl (s) 1.75 LAB BC(LOINC) 10.0-22.0 ratio High BUN/Creatinine 25.1 Ratio LAB CA(LOINC) 8.4-10.1 mg/dL Low Calcium Lvl 8.3 Performed By: #### CBC, ADIFF, ANEU, BMP, GFR #### [place] [address] .GFR Collected: 06/30/2018 Status: F Source: [facility] 4:35 AM [facility] REPOSITORY TYPE CODE TESTS RESULT OUT OF REFERENCE UNITS RANGE LAB GFRAA(LOINC ml/min/1.73 ) sqm GFR 48 [place] Result Comment: GFR Population mean for , Non- Americans Ages 20-29 = 116 mL/min/1.73 sq.m. Ages 30-39 = 107 mL/min/1.73 sq.m. Ages 40-49 = 99 mL/min/1.73 sq.m. Ages 50-59 = 93 mL/min/1.73 sq.m. Ages 60-69 = 85 mL/min/1.73 sq.m. Ages 70+ = 75 mL/min/1.73 sq.m. Chronic Kidney Disease: Less than 60 mL/min/1.73 square meters End Stage Renal Disease: Less than 15 mL/min/1.73 square meters LAB GFRNO(LOINC) ml/min/1.73sqm GFR Non- 40 Result Comment: GFR Population mean for , Non- Americans Ages 20-29 = 116 mL/min/1.73 sq.m. Ages 30-39 = 107 mL/min/1.73 sq.m. Ages 40-49 = 99 mL/min/1.73 sq.m. Ages 50-59 = 93 mL/min/1.73 sq.m. Ages 60-69 = 85 mL/min/1.73 sq.m. Ages 70+ = 75 mL/min/1.73 sq.m. Chronic Kidney Disease: Less than 60 mL/min/1.73 square meters End Stage Renal Disease: Less than 15 mL/min/1.73 square meters Performed By: #### CBC, ADIFF, ANEU, BMP, GFR #### [place] [address] XR CHEST 2 VIEWS Observed: 06/29/2018 Status: F Source: [facility] 11:52 AM [facility] ORIGINAL XR CHEST 2 VIEWS Clinical Statement: Cough. COMPARISON: 06/28/2018 FINDINGS: Left-sided buttock. Device unchanged. LEFT basilar airspace disease is unchanged. Heart size and bones are unchanged. A right- sided chest port is again noted unchanged and there are left-sided coronary artery stents. IMPRESSION: No significant change from the prior exam. Interpreted By: Justin Jacobs Preliminary Report By: Justin Jacobs Electronically Signed By: Justin Jacobs Dictated Date: 06/29/2018 3:56:31 PM Prelim Date: 06/29/2018 3:56:31 PM Sign Date: 06/29/2018 3:57:36 PM CBC Collected: 06/29/2018 Status: F Source: [facility] 5:50 AM [facility] REPOSITORY TYPE CODE TESTS RESULT OUT OF REFERENCE UNITS RANGE LAB WBC(LOINC) 4.50-10.80 10 3/mcL High WBC 11.10 LAB RBCCT(LOINC 4.50-6.00 10 6/mcL ) Low RBC 3.46 LAB HGB(LOINC) 13.0-17.5 G/dL Low Hgb 10.0 LAB HCT(LOINC) 40.0-52.0 % Low Hct 29.8 LAB MCV(LOINC) 81.0-100.0 fL MCV 86.2 LAB MCH(LOINC) 27.0-33.0 pg MCH 28.9 LAB MCHC(LOINC) 32.0-36.0 G/dL MCHC 33.5 LAB RDW(LOINC) 11.5-15.5 % RDW 13.8 LAB PLT(LOINC) 150-450 10 3/mcL Platelet 166 LAB MPV(LOINC) 6.4-10.5 fL MPV 8.3 Performed By: #### CBC, ADIFF, ANEU, BMP, GFR #### [place] [address] .AUTO DIFF Collected: 06/29/2018 Status: F Source: [facility] 5:50 AM [facility] REPOSITORY TYPE CODE TESTS RESULT OUT OF REFERENCE UNITS RANGE LAB MOLLY(LOINC) 50.0-75.0 % Neutrophil % 65.5 LAB LYM(LOINC) 20.0-40.0 % Low Lymphocyte % 17.9 LAB MON(LOINC) 2.0-13.0 % Monocyte % 11.2 LAB EO(LOINC) 0.0-6.0 % Eosinophil % 4.6 LAB BAS(LOINC) 0.0-2.5 % Basophil % 0.8 LAB ABLYM(LOIN 0.90-4.32 10 3/mcL C) Lymphocyte, 2.00 Absolute LAB FRANK(LOINC 0.09-1.40 10 3/mcL ) Monocyte, 1.20 Absolute LAB AEOS(LOINC 0.00-0.65 10 3/mcL ) Eosinophil, 0.50 Absolute LAB ABAS(LOINC 0.00-0.27 10 3/mcL ) Basophil, 0.10 Absolute Performed By: #### CBC, ADIFF, ANEU, BMP, GFR #### [address] [address] .NEUABS Collected: 06/29/2018 Status: F Source: [facility] 5:50 AM [facility] REPOSITORY TYPE CODE TESTS RESULT OUT OF REFERENCE UNITS RANGE LAB ANEU(LOINC) 2.25-8.10 10 3/mcL Neutrophil, 7.30 Absolute Performed By: #### CBC, ADIFF, ANEU, BMP, GFR #### [place] [address] BMP Collected: 06/29/2018 Status: F Source: [facility] 5:50 AM [facility] REPOSITORY TYPE CODE TESTS RESULT OUT OF REFERENCE UNITS RANGE LAB GLU(LOINC) 82-115 mg/dL Glucose Level 91 LAB NA(LOINC) 136-145 mEq/L Low Sodium Level 134 LAB K(LOINC) 3.5-5.0 mEq/L Potassium High Level 5.1 LAB CL(LOINC) 98-110 mEq/L Chloride 101 LAB CO2(LOINC) 22-32 mEq/L CO2 27 LAB EBAL(LOINC 4.0-15.0 mEq/L ) Electrolyte Balance 6.0 LAB BUN(LOINC) 8.0-22.0 mg/dL BUN High 41.0 LAB CRE(LOINC) 0.60-1.40 mg/dL Creatinine High Lvl (s) 2.39 LAB BC(LOINC) 10.0-22.0 ratio BUN/Creatinine 17.2 Ratio LAB CA(LOINC) 8.4-10.1 mg/dL Low Calcium Lvl 7.9 Performed By: #### CBC, ADIFF, ANEU, BMP, GFR #### [address] [address] .GFR Collected: 06/29/2018 Status: F Source: [facility] 5:50 AM [facility] REPOSITORY TYPE CODE TESTS RESULT OUT OF REFERENCE UNITS RANGE LAB GFRAA(LOINC ml/min/1.73 ) sqm GFR 34 [place] Result Comment: GFR Population mean for , Non- Americans Ages 20-29 = 116 mL/min/1.73 sq.m. Ages 30-39 = 107 mL/min/1.73 sq.m. Ages 40-49 = 99 mL/min/1.73 sq.m. Ages 50-59 = 93 mL/min/1.73 sq.m. Ages 60-69 = 85 mL/min/1.73 sq.m. Ages 70+ = 75 mL/min/1.73 sq.m. Chronic Kidney Disease: Less than 60 mL/min/1.73 square meters End Stage Renal Disease: Less than 15 mL/min/1.73 square meters LAB GFRNO(LOINC) ml/min/1.73sqm GFR Non- 28 Result Comment: GFR Population mean for , Non- Americans Ages 20-29 = 116 mL/min/1.73 sq.m. Ages 30-39 = 107 mL/min/1.73 sq.m. Ages 40-49 = 99 mL/min/1.73 sq.m. Ages 50-59 = 93 mL/min/1.73 sq.m. Ages 60-69 = 85 mL/min/1.73 sq.m. Ages 70+ = 75 mL/min/1.73 sq.m. Chronic Kidney Disease: Less than 60 mL/min/1.73 square meters End Stage Renal Disease: Less than 15 mL/min/1.73 square meters Performed By: #### CBC, ADIFF, ANEU, BMP, GFR #### [address] [address] DIMER Collected: 06/28/2018 Status: F Source: [facility] 4:41 PM [facility] REPOSITORY TYPE CODE TESTS RESULT OUT OF RANGE REFERENCE UNITS LAB DIMER(LOINC 0-230 ng/mL D-DU ) D-Dimer <200 Result Comment: Results reported in D- DU ng/ml. Negative for D-dimer. DVT/PE is highly unlikely. Note: False negative results may be seen in patients on anticoagulant therapy. The result of the D-Dimer test should be evaluated in the context of all the clinical and laboratory data available. In those instances where the laboratory result does not agree with the clinical evaluation, additional tests should be performed accordingly. Performed By: #### DIMER #### [address] [address] NM PULMONARY PERFUSION Observed: 06/28/2018 Status: F Source: [facility] W/ VENT AEROSOL 1:04 PM [facility] REPOSITORY ORIGINAL NM PULMONARY PERFUSION W/ VENT AEROSOL CLINICAL STATEMENT: shortness of breathe and chest pain. TECHNIQUE: Ventilation: Radiopharmaceutical: Tc-99m DTPA Dose: 2 mCi Aerosol technique with tidal breathing Anterior, posterior, lateral, anterior and posterior oblique planar images Perfusion: Radiopharmaceutical: Tc-99m MAA IV Dose: 7.3 mCi Anterior, posterior, lateral, anterior and posterior oblique planar images COMPARISON: VQ scan 04/21/18; chest radiograph same date FINDINGS: There are matched, nonsegmental V/Q defects in the LEFT upper lobe. There is no correlated consolidation present on comparison chest radiograph. Other minimal nonsegmental matched defects are suggested with heterogeneous activity on both ventilation and perfusion scans. No ventilation/perfusion mismatches identified. IMPRESSION: Low probability of pulmonary embolism. I have personally reviewed the images of this examination and agree with the resident's findings and interpretation. Interpreted By: Shankar Tavarez DO Preliminary Report By: Dayana Ramos MD Electronically Signed By: Shankar Tavarez DO Dictated Date: 06/28/2018 1:49:48 PM Prelim Date: 06/28/2018 2:05:46 PM Sign Date: 06/28/2018 5:00:54 PM XR CHEST 2 VIEWS Observed: 06/28/2018 Status: F Source: [facility] 12:37 PM [facility] REPOSITORY ORIGINAL XR CHEST 2 VIEWS Clinical Statement: Shortness of breath. COMPARISON: 06/26/2018 FINDINGS: The complex character device and the median sternotomy wires are unchanged. RIGHT chest port is unchanged. The aeration of the lungs is grossly stable compared to the prior exam, without focal infiltrate No pneumothorax. The cardiac size is stable. The osseous structures are unchanged. IMPRESSION: No focal infiltrate. Interpreted By: Justin Jacobs Preliminary Report By: Justin Jacobs Electronically Signed By: Justin Jacobs Dictated Date: 06/28/2018 1:22:32 PM Prelim Date: 06/28/2018 1:22:32 PM Sign Date: 06/28/2018 1:23:24 PM BMP Collected: 06/28/2018 Status: F Source: [facility] 5:51 AM [facility] REPOSITORY TYPE CODE TESTS RESULT OUT OF REFERENCE UNITS RANGE LAB GLU(LOINC) 82-115 mg/dL Glucose High Level 195 LAB NA(LOINC) 136-145 mEq/L Sodium Level 138 LAB K(LOINC) 3.5-5.0 mEq/L Potassium Level 4.3 LAB CL(LOINC) 98-110 mEq/L Chloride 100 LAB CO2(LOINC) 22-32 mEq/L CO2 30 LAB EBAL(LOINC 4.0-15.0 mEq/L ) Electrolyte Balance 8.0 LAB BUN(LOINC) 8.0-22.0 mg/dL BUN High 34.0 LAB CRE(LOINC) 0.60-1.40 mg/dL Creatinine High Lvl (s) 1.88 LAB BC(LOINC) 10.0-22.0 ratio BUN/Creatinine 18.1 Ratio LAB CA(LOINC) 8.4-10.1 mg/dL Low Calcium Lvl 8.2 Performed By: #### BMP, GFR, CBC, ADIFF, ANEU #### [place] [address] .GFR Collected: 06/28/2018 Status: F Source: [facility] 5:51 AM [facility] REPOSITORY TYPE CODE TESTS RESULT OUT OF REFERENCE UNITS RANGE LAB GFRAA(LOINC ml/min/1.73 ) sqm GFR 44 [place] Result Comment: GFR Population mean for , Non- Americans Ages 20-29 = 116 mL/min/1.73 sq.m. Ages 30-39 = 107 mL/min/1.73 sq.m. Ages 40-49 = 99 mL/min/1.73 sq.m. Ages 50-59 = 93 mL/min/1.73 sq.m. Ages 60-69 = 85 mL/min/1.73 sq.m. Ages 70+ = 75 mL/min/1.73 sq.m. Chronic Kidney Disease: Less than 60 mL/min/1.73 square meters End Stage Renal Disease: Less than 15 mL/min/1.73 square meters LAB GFRNO(LOINC) ml/min/1.73sqm GFR Non- 37 Result Comment: GFR Population mean for , Non- Americans Ages 20-29 = 116 mL/min/1.73 sq.m. Ages 30-39 = 107 mL/min/1.73 sq.m. Ages 40-49 = 99 mL/min/1.73 sq.m. Ages 50-59 = 93 mL/min/1.73 sq.m. Ages 60-69 = 85 mL/min/1.73 sq.m. Ages 70+ = 75 mL/min/1.73 sq.m. Chronic Kidney Disease: Less than 60 mL/min/1.73 square meters End Stage Renal Disease: Less than 15 mL/min/1.73 square meters Performed By: #### BMP, GFR, CBC, ADIFF, ANEU #### [place] [id number] CBC Collected: 06/28/2018 Status: F Source: [facility] 5:51 AM [facility] REPOSITORY TYPE CODE TESTS RESULT OUT OF REFERENCE UNITS RANGE LAB WBC(LOINC) 4.50-10.80 10 3/mcL WBC 9.30 LAB RBCCT(LOINC 4.50-6.00 10 6/mcL ) Low RBC 3.65 LAB HGB(LOINC) 13.0-17.5 G/dL Low Hgb 10.4 LAB HCT(LOINC) 40.0-52.0 % Low Hct 31.8 LAB MCV(LOINC) 81.0-100.0 fL MCV 87.0 LAB MCH(LOINC) 27.0-33.0 pg MCH 28.5 LAB MCHC(LOINC) 32.0-36.0 G/dL MCHC 32.7 LAB RDW(LOINC) 11.5-15.5 % RDW 14.0 LAB PLT(LOINC) 150-450 10 3/mcL Platelet 167 LAB MPV(LOINC) 6.4-10.5 fL MPV 8.4 Performed By: #### BMP, GFR, CBC, ADIFF, ANEU #### [address] [address] .AUTO DIFF Collected: 06/28/2018 Status: F Source: [facility] 5:51 AM [facility] REPOSITORY TYPE CODE TESTS RESULT OUT OF REFERENCE UNITS RANGE LAB MOLLY(LOINC) 50.0-75.0 % Neutrophil % 61.9 LAB LYM(LOINC) 20.0-40.0 % Lymphocyte % 21.6 LAB MON(LOINC) 2.0-13.0 % Monocyte % 10.5 LAB EO(LOINC) 0.0-6.0 % Eosinophil % 5.2 LAB BAS(LOINC) 0.0-2.5 % Basophil % 0.8 LAB ABLYM(LOIN 0.90-4.32 10 3/mcL C) Lymphocyte, 2.00 Absolute LAB FRANK(LOINC 0.09-1.40 10 3/mcL ) Monocyte, 1.00 Absolute LAB AEOS(LOINC 0.00-0.65 10 3/mcL ) Eosinophil, 0.50 Absolute LAB ABAS(LOINC 0.00-0.27 10 3/mcL ) Basophil, 0.10 Absolute Performed By: #### BMP, GFR, CBC, ADIFF, ANEU #### [place] [address] .NEUABS Collected: 06/28/2018 Status: F Source: [facility] 5:51 AM [facility] REPOSITORY TYPE CODE TESTS RESULT OUT OF REFERENCE UNITS RANGE LAB ANEU(LOINC) 2.25-8.10 10 3/mcL Neutrophil, 5.80 Absolute Performed By: #### BMP, GFR, CBC, ADIFF, ANEU #### [place] [address] TROPI Collected: 06/27/2018 Status: F Source: [facility] 10:59 AM [facility] REPOSITORY TYPE CODE TESTS RESULT OUT OF REFERENCE UNITS RANGE LAB TROPI(LOINC 0.000-0.040 ng/mL ) Troponin I 0.025 Result Comment: Troponin I reference ranges (06/28/14): 0.00-0.040 ng/mL Negative and non-diagnostic. >0.040 ng/mL Consistent with cardiac damage, increased clinical risk and possibility of myocardial infarction. Serial measurements, a rise & fall in test results, clinical history, appropriate symptoms and/or ECG changes may help assess possibility of UT. *Other non-acute coronary syndrome conditions such as CHF, myocarditis, pulmonary emboli, sepsis and cardiac surgery could result in myocardial damage and increased troponin levels. Performed By: #### TROPI #### [place] [address] CBC Collected: 06/27/2018 Status: F Source: [facility] 4:58 AM [facility] REPOSITORY TYPE CODE TESTS RESULT OUT OF REFERENCE UNITS RANGE LAB WBC(LOINC) 4.50-10.80 10 3/mcL WBC 9.40 LAB RBCCT(LOINC 4.50-6.00 10 6/mcL ) Low RBC 3.71 LAB HGB(LOINC) 13.0-17.5 G/dL Low Hgb 10.6 LAB HCT(LOINC) 40.0-52.0 % Low Hct 32.1 LAB MCV(LOINC) 81.0-100.0 fL MCV 86.5 LAB MCH(LOINC) 27.0-33.0 pg MCH 28.7 LAB MCHC(LOINC) 32.0-36.0 G/dL MCHC 33.2 LAB RDW(LOINC) 11.5-15.5 % RDW 14.2 LAB PLT(LOINC) 150-450 10 3/mcL Platelet 153 LAB MPV(LOINC) 6.4-10.5 fL MPV 8.4 Performed By: #### CBC, ADIFF, ANEU, BMP, GFR #### [address] [address] .AUTO DIFF Collected: 06/27/2018 Status: F Source: [facility] 4:58 [facility] REPOSITORY TYPE CODE TESTS RESULT OUT OF REFERENCE UNITS RANGE LAB MOLLY(LOINC) 50.0-75.0 % Neutrophil % 66.6 LAB LYM(LOINC) 20.0-40.0 % Low Lymphocyte % 19.1 LAB MON(LOINC) 2.0-13.0 % Monocyte % 9.1 LAB EO(LOINC) 0.0-6.0 % Eosinophil % 4.0 LAB BAS(LOINC) 0.0-2.5 % Basophil % 1.2 LAB ABLYM(LOIN 0.90-4.32 10 3/mcL C) Lymphocyte, 1.80 Absolute LAB FRANK(LOINC 0.09-1.40 10 3/mcL ) Monocyte, 0.90 Absolute LAB AEOS(LOINC 0.00-0.65 10 3/mcL ) Eosinophil, 0.40 Absolute LAB ABAS(LOINC 0.00-0.27 10 3/mcL ) Basophil, 0.10 Absolute Performed By: #### CBC, ADIFF, ANEU, BMP, GFR #### [address] [address] .NEUABS Collected: 06/27/2018 Status: F Source: [facility] 4:58 AM [facility] REPOSITORY TYPE CODE TESTS RESULT OUT OF REFERENCE UNITS RANGE LAB ANEU(LOINC) 2.25-8.10 10 3/mcL Neutrophil, 6.30 Absolute Performed By: #### AMY CHU ANEU, BMP, GFR #### [address] [address] BMP Collected: 06/27/2018 Status: F Source: [facility] 4:58 AM [facility] REPOSITORY TYPE CODE TESTS RESULT OUT OF REFERENCE UNITS RANGE LAB GLU(LOINC) 82-115 mg/dL Glucose High Level 265 LAB NA(LOINC) 136-145 mEq/L Sodium Level 139 LAB K(LOINC) 3.5-5.0 mEq/L Potassium Level 4.3 LAB CL(LOINC) 98-110 mEq/L Chloride 102 LAB CO2(LOINC) 22-32 mEq/L CO2 29 LAB EBAL(LOINC 4.0-15.0 mEq/L ) Electrolyte Balance 8.0 LAB BUN(LOINC) 8.0-22.0 mg/dL BUN High 28.0 LAB CRE(LOINC) 0.60-1.40 mg/dL Creatinine Lvl (s) 1.36 LAB BC(LOINC) 10.0-22.0 ratio BUN/Creatinine 20.6 Ratio LAB CA(LOINC) 8.4-10.1 mg/dL Low Calcium Lvl 8.1 Performed By: #### AMY CHU ANEU, BMP, GFR #### [address] [address] .GFR Collected: 06/27/2018 Status: F Source: [facility] 4:58 AM [facility] REPOSITORY TYPE CODE TESTS RESULT OUT OF REFERENCE UNITS RANGE LAB GFRAA(LOINC ml/min/1.73 ) sqm GFR >60 [place] Result Comment: GFR Population mean for , Non- Americans Ages 20-29 = 116 mL/min/1.73 sq.m. Ages 30-39 = 107 mL/min/1.73 sq.m. Ages 40-49 = 99 mL/min/1.73 sq.m. Ages 50-59 = 93 mL/min/1.73 sq.m. Ages 60-69 = 85 mL/min/1.73 sq.m. Ages 70+ = 75 mL/min/1.73 sq.m. Chronic Kidney Disease: Less than 60 mL/min/1.73 square meters End Stage Renal Disease: Less than 15 mL/min/1.73 square meters LAB GFRNO(LOINC) ml/min/1.73sqm GFR Non- 53 Result Comment: GFR Population mean for , Non- Americans Ages 20-29 = 116 mL/min/1.73 sq.m. Ages 30-39 = 107 mL/min/1.73 sq.m. Ages 40-49 = 99 mL/min/1.73 sq.m. Ages 50-59 = 93 mL/min/1.73 sq.m. Ages 60-69 = 85 mL/min/1.73 sq.m. Ages 70+ = 75 mL/min/1.73 sq.m. Chronic Kidney Disease: Less than 60 mL/min/1.73 square meters End Stage Renal Disease: Less than 15 mL/min/1.73 square meters Performed By: #### CBC, ADIFF, ANEU, BMP, GFR #### [address] [address] TROPI Collected: 06/27/2018 Status: F Source: [facility] 4:58 AM [facility] REPOSITORY TYPE CODE TESTS RESULT OUT OF REFERENCE UNITS RANGE LAB TROPI(LOINC 0.000-0.040 ng/mL ) Troponin I 0.031 Result Comment: Troponin I reference ranges (06/28/14): 0.00-0.040 ng/mL Negative and non-diagnostic. >0.040 ng/mL Consistent with cardiac damage, increased clinical risk and possibility of myocardial infarction. Serial measurements, a rise & fall in test results, clinical history, appropriate symptoms and/or ECG changes may help assess possibility of UT. *Other non-acute coronary syndrome conditions such as CHF, myocarditis, pulmonary emboli, sepsis and cardiac surgery could result in myocardial damage and increased troponin levels. Performed By: #### TROPI #### [address] [address] TROPI Collected: 06/26/2018 Status: F Source: [facility] 11:07 PM [facility] REPOSITORY TYPE CODE TESTS RESULT OUT OF REFERENCE UNITS RANGE LAB TROPI(LOINC 0.000-0.040 ng/mL ) Troponin I 0.031 Result Comment: Troponin I reference ranges (09/08/14): 0.00-0.040 ng/mL Negative and non-diagnostic. >0.040 ng/mL Consistent with cardiac damage, increased clinical risk and possibility of myocardial infarction. Serial measurements, a rise & fall in test results, clinical history, appropriate symptoms and/or ECG changes may help assess possibility of UT. *Other non-acute coronary syndrome conditions such as CHF, myocarditis, pulmonary emboli, sepsis and cardiac surgery could result in myocardial damage and increased troponin levels. Performed By: #### TROPI #### [address] [address] CBC Collected: 06/26/2018 Status: F Source: [facility] 5:03 [facility] REPOSITORY TYPE CODE TESTS RESULT OUT OF REFERENCE UNITS RANGE LAB WBC(LOINC) 4.50-10.80 10 3/mcL WBC 8.40 LAB RBCCT(LOINC 4.50-6.00 10 6/mcL ) Low RBC 3.60 LAB HGB(LOINC) 13.0-17.5 G/dL Low Hgb 10.5 LAB HCT(LOINC) 40.0-52.0 % Low Hct 31.6 LAB MCV(LOINC) 81.0-100.0 fL MCV 87.9 LAB MCH(LOINC) 27.0-33.0 pg MCH 29.0 LAB MCHC(LOINC) 32.0-36.0 G/dL MCHC 33.0 LAB RDW(LOINC) 11.5-15.5 % RDW 14.0 LAB PLT(LOINC) 150-450 10 3/mcL Platelet 151 LAB MPV(LOINC) 6.4-10.5 fL MPV 8.0 Performed By: #### CBC, ADIFF, ANEU, GFR, BMP, TROPI, PBNP #### [address] [address] .AUTO DIFF Collected: 06/26/2018 Status: F Source: [facility] 5:03 [facility] REPOSITORY TYPE CODE TESTS RESULT OUT OF REFERENCE UNITS RANGE LAB MOLLY(LOINC) 50.0-75.0 % High Neutrophil % 77.3 LAB LYM(LOINC) 20.0-40.0 % Low Lymphocyte % 10.9 LAB MON(LOINC) 2.0-13.0 % Monocyte % 8.3 LAB EO(LOINC) 0.0-6.0 % Eosinophil % 2.7 LAB BAS(LOINC) 0.0-2.5 % Basophil % 0.8 LAB ABLYM(LOIN 0.90-4.32 10 3/mcL C) Lymphocyte, 0.90 Absolute LAB FRANK(LOINC 0.09-1.40 10 3/mcL ) Monocyte, 0.70 Absolute LAB AEOS(LOINC 0.00-0.65 10 3/mcL ) Eosinophil, 0.20 Absolute LAB ABAS(LOINC 0.00-0.27 10 3/mcL ) Basophil, 0.10 Absolute Performed By: #### CBC, ADIFF, ANEU, GFR, BMP, TROPI, PBNP #### [place] [address] .NEUABS Collected: 06/26/2018 Status: F Source: [facility] 5:03 [facility] REPOSITORY TYPE CODE TESTS RESULT OUT OF REFERENCE UNITS RANGE LAB ANEU(LOINC) 2.25-8.10 10 3/mcL Neutrophil, 6.50 Absolute Performed By: #### CBC, ADIFF, ANEU, GFR, BMP, TROPI, PBNP #### [place] [address] .GFR Collected: 06/26/2018 Status: F Source: [facility] 5:03 [facility] REPOSITORY TYPE CODE TESTS RESULT OUT OF REFERENCE UNITS RANGE LAB GFRAA(LOINC ml/min/1.73 ) sqm GFR 55 [place] Result Comment: GFR Population mean for , Non- Americans Ages 20-29 = 116 mL/min/1.73 sq.m. Ages 30-39 = 107 mL/min/1.73 sq.m. Ages 40-49 = 99 mL/min/1.73 sq.m. Ages 50-59 = 93 mL/min/1.73 sq.m. Ages 60-69 = 85 mL/min/1.73 sq.m. Ages 70+ = 75 mL/min/1.73 sq.m. Chronic Kidney Disease: Less than 60 mL/min/1.73 square meters End Stage Renal Disease: Less than 15 mL/min/1.73 square meters LAB GFRNO(LOINC) ml/min/1.73sqm GFR Non- 45 Result Comment: GFR Population mean for , Non- Americans Ages 20-29 = 116 mL/min/1.73 sq.m. Ages 30-39 = 107 mL/min/1.73 sq.m. Ages 40-49 = 99 mL/min/1.73 sq.m. Ages 50-59 = 93 mL/min/1.73 sq.m. Ages 60-69 = 85 mL/min/1.73 sq.m. Ages 70+ = 75 mL/min/1.73 sq.m. Chronic Kidney Disease: Less than 60 mL/min/1.73 square meters End Stage Renal Disease: Less than 15 mL/min/1.73 square meters Performed By: #### CBC, ADIFF, ANEU, GFR, BMP, TROPI, PBNP #### [place] [address] BMP Collected: 06/26/2018 Status: F Source: [facility] 5:03 [facility] REPOSITORY TYPE CODE TESTS RESULT OUT OF RANGE REFERENCE UNITS LAB GLU(LOINC) 82-115 mg/dL Glucose Abnormal Level 441 Alert LAB NA(LOINC) 136-145 mEq/L Low Sodium Level 132 LAB K(LOINC) 3.5-5.0 mEq/L Potassium Level 4.5 LAB CL(LOINC) 98-110 mEq/L Chloride 99 LAB CO2(LOINC) 22-32 mEq/L CO2 25 LAB EBAL(LOINC 4.0-15.0 mEq/L ) Electrolyte Balance 8.0 LAB BUN(LOINC) 8.0-22.0 mg/dL High BUN 28.0 LAB CRE(LOINC) 0.60-1.40 mg/dL High Creatinine Lvl (s) 1.57 LAB BC(LOINC) 10.0-22.0 ratio BUN/Creatinine 17.8 Ratio LAB CA(LOINC) 8.4-10.1 mg/dL Low Calcium Lvl 7.9 Performed By: #### CBC, ADIFF, ANEU, GFR, BMP, TROPI, PBNP #### [address] [address] TROPI Collected: 06/26/2018 Status: F Source: [facility] 5:03 [facility] REPOSITORY TYPE CODE TESTS RESULT OUT OF REFERENCE UNITS RANGE LAB TROPI(LOINC 0.000-0.040 ng/mL ) Troponin I 0.025 Result Comment: Troponin I reference ranges (06/28/14): 0.00-0.040 ng/mL Negative and non-diagnostic. >0.040 ng/mL Consistent with cardiac damage, increased clinical risk and possibility of myocardial infarction. Serial measurements, a rise & fall in test results, clinical history, appropriate symptoms and/or ECG changes may help assess possibility of UT. *Other non-acute coronary syndrome conditions such as CHF, myocarditis, pulmonary emboli, sepsis and cardiac surgery could result in myocardial damage and increased troponin levels. Performed By: #### CBC, ADIFF, ANEU, GFR, BMP, TROPI, PBNP #### [address] [address] PBNP Collected: 06/26/2018 Status: F Source: [facility] 5:03 PM [facility] REPOSITORY TYPE CODE TESTS RESULT OUT OF REFERENCE UNITS RANGE LAB PBNP(LOINC) 0-900 pg/mL High N-Terminal 4921 proBNP Result Comment: NT-proBNP results of less than 300 pg/mL effectively rules out acute congestive heart failure with 99% negative predictive value. Performed By: #### CBC, ADIFF, ANEU, GFR, BMP, TROPI, PBNP #### [address] [address] XR CHEST 1 VIEW Observed: 06/26/2018 Status: F Source: [facility] 4:26 PM [facility] REPOSITORY ORIGINAL XR CHEST 1 VIEW CLINICAL STATEMENT: chest pain. COMPARISON: Chest radiograph 05/27/2018 FINDINGS: The costophrenic angles are not completely included on this exam and repeat imaging was unable to be performed. The heart is upper limits of normal in size. The cardiomediastinal contours are normal. Th e 1st, 2nd, and 5th median sternotomy wires are fractured but unchanged from prior chest radiograph. Other median sternotomy wires appear intact. There is a stable LEFT single lead cardiac device. The R IGHT chemotherapy port is in stable position with the tip at the cavoatrial junction. There is no focal consolidation, vascular congestion, or pneumothorax. No acute osseous abnormalities identified. IMPRESSION: No acute cardiopulmonary process. I have personally reviewed the images of this examination and agree with the resident's findings and interpretation. Interpreted By: Lynne Gates MD Preliminary Report By: Kelsy Robbins DO Electronically Signed By: Lynne Gates MD Dictated Date: 06/26/2018 5:13:08 PM Prelim Date: 06/26/2018 5:14:43 PM Sign Date: 06/26/2018 5:18:51 PM VINNIE Collected: 05/30/2018 Status: F Source: [facility] 10:37 AM [facility] REPOSITORY TYPE CODE TESTS RESULT OUT OF REFERENCE UNITS RANGE LAB GLU(LOINC) 82-115 mg/dL Glucose High Level 217 LAB NA(LOINC) 136-145 mEq/L Sodium Level 138 LAB K(LOINC) 3.5-5.0 mEq/L Potassium Level 4.6 LAB CL(LOINC) 98-110 mEq/L Chloride 99 LAB CO2(LOINC) 22-32 mEq/L CO2 32 LAB EBAL(LOINC 4.0-15.0 mEq/L ) Electrolyte Balance 7.0 LAB BUN(LOINC) 8.0-22.0 mg/dL BUN High 27.0 LAB CRE(LOINC) 0.60-1.40 mg/dL Creatinine Lvl (s) 1.24 LAB BC(LOINC) 10.0-22.0 ratio BUN/Creatinine 21.8 Ratio LAB CA(LOINC) 8.4-10.1 mg/dL Calcium Lvl 8.5 Performed By: #### BMP, GFR #### [place] [address] .GFR Collected: 05/30/2018 Status: F Source: [facility] 10:37 AM [facility] REPOSITORY TYPE CODE TESTS RESULT OUT OF REFERENCE UNITS RANGE LAB GFRAA(LOINC ml/min/1.73 ) sqm GFR >60 [place] Result Comment: GFR Population mean for , Non- Americans Ages 20-29 = 116 mL/min/1.73 sq.m. Ages 30-39 = 107 mL/min/1.73 sq.m. Ages 40-49 = 99 mL/min/1.73 sq.m. Ages 50-59 = 93 mL/min/1.73 sq.m. Ages 60-69 = 85 mL/min/1.73 sq.m. Ages 70+ = 75 mL/min/1.73 sq.m. Chronic Kidney Disease: Less than 60 mL/min/1.73 square meters End Stage Renal Disease: Less than 15 mL/min/1.73 square meters LAB GFRNO(LOINC) ml/min/1.73sqm GFR Non- 59 Result Comment: GFR Population mean for , Non- Americans Ages 20-29 = 116 mL/min/1.73 sq.m. Ages 30-39 = 107 mL/min/1.73 sq.m. Ages 40-49 = 99 mL/min/1.73 sq.m. Ages 50-59 = 93 mL/min/1.73 sq.m. Ages 60-69 = 85 mL/min/1.73 sq.m. Ages 70+ = 75 mL/min/1.73 sq.m. Chronic Kidney Disease: Less than 60 mL/min/1.73 square meters End Stage Renal Disease: Less than 15 mL/min/1.73 square meters Performed By: #### BMP, GFR #### [facility] [address] [place] [address] .GFR Collected: 05/29/2018 Status: F Source: [facility] 5:05 AM [facility] REPOSIT[facility] TYPE CODE TESTS RESULT OUT OF REFERENCE UNITS RANGE LAB GFRAA(LOINC ml/min/1.73 ) sqm GFR >60 [place] Result Comment: GFR Population mean for , Non- Americans Ages 20-29 = 116 mL/min/1.73 sq.m. Ages 30-39 = 107 mL/min/1.73 sq.m. Ages 40-49 = 99 mL/min/1.73 sq.m. Ages 50-59 = 93 mL/min/1.73 sq.m. Ages 60-69 = 85 mL/min/1.73 sq.m. Ages 70+ = 75 mL/min/1.73 sq.m. Chronic Kidney Disease: Less than 60 mL/min/1.73 square meters End Stage Renal Disease: Less than 15 mL/min/1.73 square meters LAB GFRNO(LOINC) ml/min/1.73sqm GFR Non- 54 Result Comment: GFR Population mean for , Non- Americans Ages 20-29 = 116 mL/min/1.73 sq.m. Ages 30-39 = 107 mL/min/1.73 sq.m. Ages 40-49 = 99 mL/min/1.73 sq.m. Ages 50-59 = 93 mL/min/1.73 sq.m. Ages 60-69 = 85 mL/min/1.73 sq.m. Ages 70+ = 75 mL/min/1.73 sq.m. Chronic Kidney Disease: Less than 60 mL/min/1.73 square meters End Stage Renal Disease: Less than 15 mL/min/1.73 square meters Performed By: #### GFR, CMP, CBC, ADIFF, ANEU #### [place] [address] CMP Collected: 05/29/2018 Status: F Source: [facility] 5:05 AM [facility] REPOSIT[facility] TYPE CODE TESTS RESULT OUT OF REFERENCE UNITS RANGE LAB GLU(LOINC) 82-115 mg/dL Glucose High Level 146 LAB NA(LOINC) 136-145 mEq/L Sodium Level 140 LAB K(LOINC) 3.5-5.0 mEq/L Potassium Level 4.5 LAB CL(LOINC) 98-110 mEq/L Chloride 102 LAB CO2(LOINC) 22-32 mEq/L CO2 High 33 LAB EBAL(LOINC 4.0-15.0 mEq/L ) Electrolyte Balance 5.0 LAB BUN(LOINC) 8.0-22.0 mg/dL BUN High 31.0 LAB CRE(LOINC) 0.60-1.40 mg/dL Creatinine Lvl (s) 1.35 LAB BC(LOINC) 10.0-22.0 ratio High BUN/Creatinine 23.0 Ratio LAB CA(LOINC) 8.4-10.1 mg/dL Low Calcium Lvl 8.0 LAB PROT(LOINC 6.0-8.5 G/dL ) Total Protein 6.7 LAB ALB(LOINC) 3.2-4.8 G/dL Albumin Level 3.3 LAB GLB(LOINC) 1.5-3.8 G/dL Globulin 3.4 LAB AG(LOINC) 0.9-1.6 ratio A/G Ratio 1.0 LAB BILT(LOINC 0.2-1.2 mg/dL ) Bili Total 0.6 LAB AP(LOINC) 38-126 U/L Alk Phos 103 LAB AST(LOINC) 8-34 U/L AST/SGOT 15 LAB ALT(LOINC) 12-55 U/L ALT/SGPT 14 Performed By: #### GFR, CMP, CBC, ADIFF, ANEU #### [place] [id number] CBC Collected: 05/29/2018 Status: F Source: [facility] 5:05 [facility] REPOSITORY TYPE CODE TESTS RESULT OUT OF REFERENCE UNITS RANGE LAB WBC(LOINC) 4.50-10.80 10 3/mcL WBC 8.50 LAB RBCCT(LOINC 4.50-6.00 10 6/mcL ) Low RBC 3.50 LAB HGB(LOINC) 13.0-17.5 G/dL Low Hgb 10.1 LAB HCT(LOINC) 40.0-52.0 % Low Hct 30.6 LAB MCV(LOINC) 81.0-100.0 fL MCV 87.4 LAB MCH(LOINC) 27.0-33.0 pg MCH 29.0 LAB MCHC(LOINC) 32.0-36.0 G/dL MCHC 33.2 LAB RDW(LOINC) 11.5-15.5 % RDW 15.2 LAB PLT(LOINC) 150-450 10 3/mcL Platelet 152 LAB MPV(LOINC) 6.4-10.5 fL MPV 8.2 Performed By: #### GFR, CMP, CBC, ADIFF, ANEU #### [place] [id number] .AUTO DIFF Collected: 05/29/2018 Status: F Source: [facility] 5:05 [facility] REPOSITORY TYPE CODE TESTS RESULT OUT OF REFERENCE UNITS RANGE LAB MOLLY(LOINC) 50.0-75.0 % Neutrophil % 66.6 LAB LYM(LOINC) 20.0-40.0 % Low Lymphocyte % 16.3 LAB MON(LOINC) 2.0-13.0 % Monocyte % 10.2 LAB EO(LOINC) 0.0-6.0 % Eosinophil % 5.9 LAB BAS(LOINC) 0.0-2.5 % Basophil % 1.0 LAB ABLYM(LOIN 0.90-4.32 10 3/mcL C) Lymphocyte, 1.40 Absolute LAB FRANK(LOINC 0.09-1.40 10 3/mcL ) Monocyte, 0.90 Absolute LAB AEOS(LOINC 0.00-0.65 10 3/mcL ) Eosinophil, 0.50 Absolute LAB ABAS(LOINC 0.00-0.27 10 3/mcL ) Basophil, 0.10 Absolute Performed By: #### GFR, CMP, CBC, ADIFF, ANEU #### [place] [id number] .NEUABS Collected: 05/29/2018 Status: F Source: [facility] 5:05 AM [facility] REPOSITORY TYPE CODE TESTS RESULT OUT OF REFERENCE UNITS RANGE LAB ANEU(LOINC) 2.25-8.10 10 3/mcL Neutrophil, 5.70 Absolute Performed By: #### GFR, CMP, CBC, ADIFF, ANEU #### [place] [id number] K Collected: 05/28/2018 Status: F Source: [facility] 6:28 AM [facility] REPOSITORY TYPE CODE TESTS RESULT OUT OF REFERENCE UNITS RANGE LAB K(LOINC) 3.5-5.0 mEq/L Potassium Level 4.6 Performed By: #### K #### [place] [id number] TROPI Collected: 05/27/2018 Status: F Source: [facility] 11:54 PM [facility] REPOSITORY TYPE CODE TESTS RESULT OUT OF REFERENCE UNITS RANGE LAB TROPI(LOINC 0.000-0.040 ng/mL ) Troponin I 0.034 Result Comment: Troponin I reference ranges (06/28/14): 0.00-0.040 ng/mL Negative and non-diagnostic. >0.040 ng/mL Consistent with cardiac damage, increased clinical risk and possibility of myocardial infarction. Serial measurements, a rise & fall in test results, clinical history, appropriate symptoms and/or ECG changes may help assess possibility of UT. *Other non-acute coronary syndrome conditions such as CHF, myocarditis, pulmonary emboli, sepsis and cardiac surgery could result in myocardial damage and increased troponin levels. Performed By: #### TROPI #### [place] [address] NM MYOCARDIAL SPECT Observed: 05/27/2018 Status: F Source: [place] STRESS/REST 10:24 PM [facility] REPOSITORY ORIGINAL NM MYOCARDIAL SPECT STRESS/REST CLINICAL STATEMENT: Chest pain TECHNIQUE: Lexiscan dose:0.4 mg Radiopharmaceutical (stress): Tc-99m Sestamibi Dose:18.9 mCi Radiopharmaceutical (rest): Tc-99m Sestamibi Dose:6.6 mCi SPECT acquisition and processing Reconstruction and reorientation of SPECT images into short axis, vertical and horizontal long axis planes Quantitative LVEF assessment COMPARISON:04/02/2018 REPORT:Overall image quality is good. No resolution CT images show bibasilar pleural effusion. SPECT perfusion images show severely decreased tracer uptake in the mid to distal anterior and apical wall in rest and stress without reversibility suggesting prior infarction. No transient ischemic dilatation is seen. The perfusion images show dyskinesis of the anterior, anteroseptal and apical myocardium. Overall LV function is reduced at 40% and LV is dilated with an end-diastolic volume of 1 82 mL. IMPRESSION: 1. 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 2. Dilated ventricles with an EF of 40%. 3. Compared to multiple prior studies the last 3 years, there has been no change in perfusion pattern. 4. Of note there is increased radiotracer uptake in the mandible. Clinical correlation suggested. Interpreted By: Jackelin Luevano MD Preliminary Report By: Valente Morejon MD Electronically Signed By: Jackelin Luevano MD Dictated Date: 05/28/2018 10:37:58 AM Prelim Date: 05/28/2018 10:57:48 AM Sign Date: 05/28/2018 11:09:03 AM TROPI Collected: 05/27/2018 Status: F Source: [facility] 9:11 PM [facility] REPOSITORY TYPE CODE TESTS RESULT OUT OF REFERENCE UNITS RANGE LAB TROPI(LOINC 0.000-0.040 ng/mL ) Troponin I 0.025 Result Comment: Troponin I reference ranges (06/28/14): 0.00-0.040 ng/mL Negative and non-diagnostic. >0.040 ng/mL Consistent with cardiac damage, increased clinical risk and possibility of myocardial infarction. Serial measurements, a rise & fall in test results, clinical history, appropriate symptoms and/or ECG changes may help assess possibility of UT. *Other non-acute coronary syndrome conditions such as CHF, myocarditis, pulmonary emboli, sepsis and cardiac surgery could result in myocardial damage and increased troponin levels. Performed By: #### TROPI #### [place] [address] XR CHEST 2 VIEWS Observed: 05/27/2018 Status: F Source: [facility] 7:33 PM [facility] REPOSITORY ORIGINAL XR CHEST 2 VIEWS PA and lateral chest CLINICAL INDICATION: CHEST PAIN COMPARISON: 04/22/2018 FINDINGS: Sternotomy wires are present. The 3 upper wires are interrupted as seen previously. The cardiac and mediastinal silhouettes are normal. A pacemaker/ICD is implanted in the left upper chest wal l with a single lead extending into the area of the RIGHT ventricle. There is a central venous port implanted in the RIGHT chest wall with catheter tip at the cavoatrial junction. The rachele are not enlar ged. Slight vascular and interstitial prominence are seen, mildly increased from the prior study suggesting mild congestion. There is a small amount of fluid in the minor fissure. Small bilateral pleura l effusions blunt the posterior costophrenic angles. There are moderate degenerative findings in the spine. IMPRESSION: Mild vascular congestion with probable early interstitial edema. Small pleural effusions. Interpreted By: Amish Allen MD Preliminary Report By: Amish Allen MD Electronically Signed By: Amish Allen MD Dictated Date: 05/27/2018 7:48:06 PM Prelim Date: 05/27/2018 7:48:06 PM Sign Date: 05/27/2018 7:51:24 PM CBC Collected: 05/27/2018 Status: F Source: [facility] 5:50 PM [facility] REPOSITORY TYPE CODE TESTS RESULT OUT OF REFERENCE UNITS RANGE LAB WBC(LOINC) 4.50-10.80 10 3/mcL WBC 8.40 LAB RBCCT(LOINC 4.50-6.00 10 6/mcL ) Low RBC 3.79 LAB HGB(LOINC) 13.0-17.5 G/dL Low Hgb 10.9 LAB HCT(LOINC) 40.0-52.0 % Low Hct 33.4 LAB MCV(LOINC) 81.0-100.0 fL MCV 88.2 LAB MCH(LOINC) 27.0-33.0 pg MCH 28.7 LAB MCHC(LOINC) 32.0-36.0 G/dL MCHC 32.5 LAB RDW(LOINC) 11.5-15.5 % RDW 15.3 LAB PLT(LOINC) 150-450 10 3/mcL Low Platelet 133 LAB MPV(LOINC) 6.4-10.5 fL MPV 8.1 Performed By: #### CBC, ADIFF, ANEU, BMP, GFR, TROPI, PBNP #### [place] [address] .AUTO DIFF Collected: 05/27/2018 Status: F Source: [facility] 5:50 PM [facility] REPOSITORY TYPE CODE TESTS RESULT OUT OF REFERENCE UNITS RANGE LAB MOLLY(LOINC) 50.0-75.0 % High Neutrophil % 77.3 LAB LYM(LOINC) 20.0-40.0 % Low Lymphocyte % 11.3 LAB MON(LOINC) 2.0-13.0 % Monocyte % 7.4 LAB EO(LOINC) 0.0-6.0 % Eosinophil % 3.5 LAB BAS(LOINC) 0.0-2.5 % Basophil % 0.5 LAB ABLYM(LOIN 0.90-4.32 10 3/mcL C) Lymphocyte, 0.90 Absolute LAB FRANK(LOINC 0.09-1.40 10 3/mcL ) Monocyte, 0.60 Absolute LAB AEOS(LOINC 0.00-0.65 10 3/mcL ) Eosinophil, 0.30 Absolute LAB ABAS(LOINC 0.00-0.27 10 3/mcL ) Basophil, 0.00 Absolute Performed By: #### CBC, ADIFF, ANEU, BMP, GFR, TROPI, PBNP #### [place] [address] .NEUABS Collected: 05/27/2018 Status: F Source: [facility] 5:50 PM [facility] REPOSITORY TYPE CODE TESTS RESULT OUT OF REFERENCE UNITS RANGE LAB ANEU(LOINC) 2.25-8.10 10 3/mcL Neutrophil, 6.50 Absolute Performed By: #### CBC, ADIFF, ANEU, BMP, GFR, TROPI, PBNP #### [place] [address] BMP Collected: 05/27/2018 Status: F Source: [facility] 5:50 PM [facility] REPOSITORY TYPE CODE TESTS RESULT OUT OF REFERENCE UNITS RANGE LAB GLU(LOINC) 82-115 mg/dL Glucose High Level 240 LAB NA(LOINC) 136-145 mEq/L Sodium Level 140 LAB K(LOINC) 3.5-5.0 mEq/L Potassium High Level 5.3 LAB CL(LOINC) 98-110 mEq/L Chloride 106 LAB CO2(LOINC) 22-32 mEq/L CO2 28 LAB EBAL(LOINC 4.0-15.0 mEq/L ) Electrolyte Balance 6.0 LAB BUN(LOINC) 8.0-22.0 mg/dL BUN High 41.0 LAB CRE(LOINC) 0.60-1.40 mg/dL Creatinine High Lvl (s) 1.61 LAB BC(LOINC) 10.0-22.0 ratio High BUN/Creatinine 25.5 Ratio LAB CA(LOINC) 8.4-10.1 mg/dL Calcium Lvl 8.5 Performed By: #### CBC, ADIFF, ANEU, BMP, GFR, TROPI, PBNP #### [place] [address] .GFR Collected: 05/27/2018 Status: F Source: [facility] 5:50 PM [facility] REPOSITORY TYPE CODE TESTS RESULT OUT OF REFERENCE UNITS RANGE LAB GFRAA(LOINC ml/min/1.73 ) sqm GFR 53 [place] Result Comment: GFR Population mean for , Non- Americans Ages 20-29 = 116 mL/min/1.73 sq.m. Ages 30-39 = 107 mL/min/1.73 sq.m. Ages 40-49 = 99 mL/min/1.73 sq.m. Ages 50-59 = 93 mL/min/1.73 sq.m. Ages 60-69 = 85 mL/min/1.73 sq.m. Ages 70+ = 75 mL/min/1.73 sq.m. Chronic Kidney Disease: Less than 60 mL/min/1.73 square meters End Stage Renal Disease: Less than 15 mL/min/1.73 square meters LAB GFRNO(LOINC) ml/min/1.73sqm GFR Non- 44 Result Comment: GFR Population mean for , Non- Americans Ages 20-29 = 116 mL/min/1.73 sq.m. Ages 30-39 = 107 mL/min/1.73 sq.m. Ages 40-49 = 99 mL/min/1.73 sq.m. Ages 50-59 = 93 mL/min/1.73 sq.m. Ages 60-69 = 85 mL/min/1.73 sq.m. Ages 70+ = 75 mL/min/1.73 sq.m. Chronic Kidney Disease: Less than 60 mL/min/1.73 square meters End Stage Renal Disease: Less than 15 mL/min/1.73 square meters Performed By: #### CBC, ADIFF, ANEU, BMP, GFR, TROPI, PBNP #### [address] [address] TROPI Collected: 05/27/2018 Status: F Source: [facility] 5:50 PM [facility] REPOSITORY TYPE CODE TESTS RESULT OUT OF REFERENCE UNITS RANGE LAB TROPI(LOINC 0.000-0.040 ng/mL ) Troponin I 0.021 Result Comment: Troponin I reference ranges (06/28/14): 0.00-0.040 ng/mL Negative and non-diagnostic. >0.040 ng/mL Consistent with cardiac damage, increased clinical risk and possibility of myocardial infarction. Serial measurements, a rise & fall in test results, clinical history, appropriate symptoms and/or ECG changes may help assess possibility of UT. *Other non-acute coronary syndrome conditions such as CHF, myocarditis, pulmonary emboli, sepsis and cardiac surgery could result in myocardial damage and increased troponin levels. Performed By: #### CBC, ADIFF, ANEU, BMP, GFR, TROPI, PBNP #### [address] [address] PBNP Collected: 05/27/2018 Status: F [facility] REPOSITORY TYPE CODE TESTS RESULT OUT OF REFERENCE UNITS RANGE LAB PBNP(LOINC) 0-900 pg/mL High N-Terminal 9309 proBNP Result Comment: NT-proBNP results of less than 300 pg/mL effectively rules out acute congestive heart failure with 99% negative predictive value. Performed By: #### CBC, ADIFF, ANEU, BMP, GFR, TROPI, PBNP #### [address] [address] .GFR Collected: 05/23/2018 Status: F Source: [facility] 3:03 PM [facility] REPOSITORY TYPE CODE TESTS RESULT OUT OF REFERENCE UNITS RANGE LAB GFRAA(LOINC ml/min/1.73 ) sqm GFR 57 [place] Result Comment: GFR Population mean for , Non- Americans Ages 20-29 = 116 mL/min/1.73 sq.m. Ages 30-39 = 107 mL/min/1.73 sq.m. Ages 40-49 = 99 mL/min/1.73 sq.m. Ages 50-59 = 93 mL/min/1.73 sq.m. Ages 60-69 = 85 mL/min/1.73 sq.m. Ages 70+ = 75 mL/min/1.73 sq.m. Chronic Kidney Disease: Less than 60 mL/min/1.73 square meters End Stage Renal Disease: Less than 15 mL/min/1.73 square meters LAB GFRNO(LOINC) ml/min/1.73sqm GFR Non- 47 Result Comment: GFR Population mean for , Non- Americans Ages 20-29 = 116 mL/min/1.73 sq.m. Ages 30-39 = 107 mL/min/1.73 sq.m. Ages 40-49 = 99 mL/min/1.73 sq.m. Ages 50-59 = 93 mL/min/1.73 sq.m. Ages 60-69 = 85 mL/min/1.73 sq.m. Ages 70+ = 75 mL/min/1.73 sq.m. Chronic Kidney Disease: Less than 60 mL/min/1.73 square meters End Stage Renal Disease: Less than 15 mL/min/1.73 square meters Performed By: #### GFR, CMP, PBNP #### [place] [address] CMP Collected: 05/23/2018 Status: F Source: [facility] 3:03 PM [facility] REPOSITORY TYPE CODE TESTS RESULT OUT OF REFERENCE UNITS RANGE LAB GLU(LOINC) 82-115 mg/dL Glucose High Level 172 LAB NA(LOINC) 136-145 mEq/L Sodium Level 142 LAB K(LOINC) 3.5-5.0 mEq/L Potassium High Level 5.7 LAB CL(LOINC) 98-110 mEq/L Chloride 110 LAB CO2(LOINC) 22-32 mEq/L CO2 22 LAB EBAL(LOINC 4.0-15.0 mEq/L ) Electrolyte Balance 10.0 LAB BUN(LOINC) 8.0-22.0 mg/dL BUN High 33.0 LAB CRE(LOINC) 0.60-1.40 mg/dL Creatinine High Lvl (s) 1.51 LAB BC(LOINC) 10.0-22.0 ratio BUN/Creatinine 21.9 Ratio LAB CA(LOINC) 8.4-10.1 mg/dL Calcium Lvl 8.9 LAB PROT(LOINC 6.0-8.5 G/dL ) Total Protein 6.9 LAB ALB(LOINC) 3.2-4.8 G/dL Albumin Level 3.7 LAB GLB(LOINC) 1.5-3.8 G/dL Globulin 3.2 LAB AG(LOINC) 0.9-1.6 ratio A/G Ratio 1.2 LAB BILT(LOINC 0.2-1.2 mg/dL ) Bili Total 0.5 LAB AP(LOINC) 38-126 U/L Alk Phos 117 LAB AST(LOINC) 8-34 U/L AST/SGOT 19 LAB ALT(LOINC) 12-55 U/L ALT/SGPT 17 Performed By: #### GFR, CMP, PBNP #### [address] [address] PBNP Collected: 05/23/2018 Status: F [facility]: [facility] 3[facility] PM [facility] REPOSITORY TYPE CODE TESTS RESULT OUT OF REFERENCE UNITS RANGE LAB PBNP(LOINC) 0-900 pg/mL High N-Terminal 16634 proBNP Result Comment: NT-proBNP results of less than 300 pg/mL effectively rules out acute congestive heart failure with 99% negative predictive value. Performed By: #### GFR, CMP, PBNP #### [address] [address] BMP Collected: 05/12/2018 Status: F Source: [facility] 4:22 AM [facility] REPOSITORY TYPE CODE TESTS RESULT OUT OF REFERENCE UNITS RANGE LAB GLU(LOINC) 82-115 mg/dL Low Glucose Level 66 LAB NA(LOINC) 136-145 mEq/L Sodium Level 140 LAB K(LOINC) 3.5-5.0 mEq/L Potassium Level 4.1 LAB CL(LOINC) 98-110 mEq/L Chloride 106 LAB CO2(LOINC) 22-32 mEq/L CO2 27 LAB EBAL(LOINC 4.0-15.0 mEq/L ) Electrolyte Balance 7.0 LAB BUN(LOINC) 8.0-22.0 mg/dL BUN High 27.0 LAB CRE(LOINC) 0.60-1.40 mg/dL Creatinine Lvl (s) 1.18 LAB BC(LOINC) 10.0-22.0 ratio High BUN/Creatinine 22.9 Ratio LAB CA(LOINC) 8.4-10.1 mg/dL Low Calcium Lvl 8.3 Performed By: #### BMP, GFR #### [place] [address] .GFR Collected: 05/12/2018 Status: F Source: [facility] 4:22 AM [facility] REPOSITORY TYPE CODE TESTS RESULT OUT OF REFERENCE UNITS RANGE LAB GFRAA(LOINC ml/min/1.73 ) sqm GFR >60 [place] Result Comment: GFR Population mean for , Non- Americans Ages 20-29 = 116 mL/min/1.73 sq.m. Ages 30-39 = 107 mL/min/1.73 sq.m. Ages 40-49 = 99 mL/min/1.73 sq.m. Ages 50-59 = 93 mL/min/1.73 sq.m. Ages 60-69 = 85 mL/min/1.73 sq.m. Ages 70+ = 75 mL/min/1.73 sq.m. Chronic Kidney Disease: Less than 60 mL/min/1.73 square meters End Stage Renal Disease: Less than 15 mL/min/1.73 square meters LAB GFRNO(LOINC) ml/min/1.73sqm GFR Non- >60 Result Comment: GFR Population mean for , Non- Americans Ages 20-29 = 116 mL/min/1.73 sq.m. Ages 30-39 = 107 mL/min/1.73 sq.m. Ages 40-49 = 99 mL/min/1.73 sq.m. Ages 50-59 = 93 mL/min/1.73 sq.m. Ages 60-69 = 85 mL/min/1.73 sq.m. Ages 70+ = 75 mL/min/1.73 sq.m. Chronic Kidney Disease: Less than 60 mL/min/1.73 square meters End Stage Renal Disease: Less than 15 mL/min/1.73 square meters Performed By: #### BMP, GFR #### [address] [address] Observed: 05/07/2018 Status: F Source: [facility] CDPCR 8:13 PM [facility] REPOSITORY . MICRO - Microbiology PROCEDURE: Clostridium difficile PCR [^1 *1] SOURCE: Stool BODY SITE: COLLECTED DATE/TIME: 05/07/2018 20:13 EDT RECEIVED DATE/TIME: 05/08/2018 13:58 EDT START DATE/TIME: 05/08/2018 13:59 EDT FREE TEXT SOURCE: FINAL REPORTS Final Report [] Verified Date/Time/Personnel: 05/08/2018 22:47 EDT NEGATIVE. No tcdB gene DNA detected. Negative test results may occur from improper collection, handling or storage of specimen, technical error, or number of organisms below the analytical sensitivity of the test. Interpretive Data ^1: Clostridium difficile PCR As with all in vitro diagnostic tests, positive and negative predictive values are highly dependent on prevalence. The Shoozy C. difficile PCR Assay performance may vary depending on the prevalence and population tested. Performing Locations *1: This test was performed at: [address], [facility] , [facility] Performed By: #### CDPCR #### [place] [address] BMP Collected: 05/06/2018 Status: F Source: [facility] 9:09 AM [facility] REPOSITORY TYPE CODE TESTS RESULT OUT OF REFERENCE UNITS RANGE LAB GLU(LOINC) 82-115 mg/dL Glucose High Level 130 LAB NA(LOINC) 136-145 mEq/L Sodium Level 140 LAB K(LOINC) 3.5-5.0 mEq/L Potassium Level 4.3 LAB CL(LOINC) 98-110 mEq/L Chloride 109 LAB CO2(LOINC) 22-32 mEq/L CO2 23 LAB EBAL(LOINC 4.0-15.0 mEq/L ) Electrolyte Balance 8.0 LAB BUN(LOINC) 8.0-22.0 mg/dL BUN High 24.0 LAB CRE(LOINC) 0.60-1.40 mg/dL Creatinine Lvl (s) 0.85 LAB BC(LOINC) 10.0-22.0 ratio High BUN/Creatinine 28.2 Ratio LAB CA(LOINC) 8.4-10.1 mg/dL Low Calcium Lvl 7.6 Performed By: #### VINNIE, GFR #### [address] [address] .GFR Collected: 05/06/2018 Status: F Source: [facility] 9:09 AM [facility] REPOSITORY TYPE CODE TESTS RESULT OUT OF REFERENCE UNITS RANGE LAB GFRAA(LOINC ml/min/1.73 ) sqm GFR >60 [place] Result Comment: GFR Population mean for , Non- Americans Ages 20-29 = 116 mL/min/1.73 sq.m. Ages 30-39 = 107 mL/min/1.73 sq.m. Ages 40-49 = 99 mL/min/1.73 sq.m. Ages 50-59 = 93 mL/min/1.73 sq.m. Ages 60-69 = 85 mL/min/1.73 sq.m. Ages 70+ = 75 mL/min/1.73 sq.m. Chronic Kidney Disease: Less than 60 mL/min/1.73 square meters End Stage Renal Disease: Less than 15 mL/min/1.73 square meters LAB GFRNO(LOINC) ml/min/1.73sqm GFR Non- >60 Result Comment: GFR Population mean for , Non- Americans Ages 20-29 = 116 mL/min/1.73 sq.m. Ages 30-39 = 107 mL/min/1.73 sq.m. Ages 40-49 = 99 mL/min/1.73 sq.m. Ages 50-59 = 93 mL/min/1.73 sq.m. Ages 60-69 = 85 mL/min/1.73 sq.m. Ages 70+ = 75 mL/min/1.73 sq.m. Chronic Kidney Disease: Less than 60 mL/min/1.73 square meters End Stage Renal Disease: Less than 15 mL/min/1.73 square meters Performed By: #### BMP, GFR #### [address] [address] CBC Collected: 04/30/2018 Status: F Source: [facility] 5:53 AM [facility] REPOSITORY TYPE CODE TESTS RESULT OUT OF REFERENCE UNITS RANGE LAB WBC(LOINC) 4.50-10.80 10 3/mcL WBC 10.60 LAB RBCCT(LOINC 4.50-6.00 10 6/mcL ) Low RBC 4.10 LAB HGB(LOINC) 13.0-17.5 G/dL Low Hgb 11.7 LAB HCT(LOINC) 40.0-52.0 % Low Hct 35.4 LAB MCV(LOINC) 81.0-100.0 fL MCV 86.5 LAB MCH(LOINC) 27.0-33.0 pg MCH 28.6 LAB MCHC(LOINC) 32.0-36.0 G/dL MCHC 33.1 LAB RDW(LOINC) 11.5-15.5 % RDW 14.5 LAB PLT(LOINC) 150-450 10 3/mcL Platelet 172 LAB MPV(LOINC) 6.4-10.5 fL MPV 8.6 Performed By: #### CBC, ADIFF, ANEU, GFR, BMP #### [address] [address] .AUTO DIFF Collected: 04/30/2018 Status: F Source: [facility] 5:53 AM [facility] REPOSITORY TYPE CODE TESTS RESULT OUT OF REFERENCE UNITS RANGE LAB MOLLY(LOINC) 50.0-75.0 % Neutrophil % 70.0 LAB LYM(LOINC) 20.0-40.0 % Low Lymphocyte % 16.0 LAB MON(LOINC) 2.0-13.0 % Monocyte % 9.5 LAB EO(LOINC) 0.0-6.0 % Eosinophil % 3.5 LAB BAS(LOINC) 0.0-2.5 % Basophil % 1.0 LAB ABLYM(LOIN 0.90-4.32 10 3/mcL C) Lymphocyte, 1.70 Absolute LAB FRANK(LOINC 0.09-1.40 10 3/mcL ) Monocyte, 1.00 Absolute LAB AEOS(LOINC 0.00-0.65 10 3/mcL ) Eosinophil, 0.40 Absolute LAB ABAS(LOINC 0.00-0.27 10 3/mcL ) Basophil, 0.10 Absolute Performed By: #### CBC, ADIFF, ANEU, GFR, BMP #### [address] [address] .NEUABS Collected: 04/30/2018 Status: F Source: [facility] 5:53 AM [facility] REPOSITORY TYPE CODE TESTS RESULT OUT OF REFERENCE UNITS RANGE LAB ANEU(LOINC) 2.25-8.10 10 3/mcL Neutrophil, 7.40 Absolute Performed By: #### VLAD, ADIFF, ANEU, GFR, BMP #### [address] [address] .GFR Collected: 04/30/2018 Status: F Source: [facility] 5:53 AM [facility] REPOSITORY TYPE CODE TESTS RESULT OUT OF REFERENCE UNITS RANGE LAB GFRAA(LOINC ml/min/1.73 ) sqm GFR >60 [place] Result Comment: GFR Population mean for , Non- Americans Ages 20-29 = 116 mL/min/1.73 sq.m. Ages 30-39 = 107 mL/min/1.73 sq.m. Ages 40-49 = 99 mL/min/1.73 sq.m. Ages 50-59 = 93 mL/min/1.73 sq.m. Ages 60-69 = 85 mL/min/1.73 sq.m. Ages 70+ = 75 mL/min/1.73 sq.m. Chronic Kidney Disease: Less than 60 mL/min/1.73 square meters End Stage Renal Disease: Less than 15 mL/min/1.73 square meters LAB GFRNO(LOINC) ml/min/1.73sqm GFR Non- >60 Result Comment: GFR Population mean for , Non- Americans Ages 20-29 = 116 mL/min/1.73 sq.m. Ages 30-39 = 107 mL/min/1.73 sq.m. Ages 40-49 = 99 mL/min/1.73 sq.m. Ages 50-59 = 93 mL/min/1.73 sq.m. Ages 60-69 = 85 mL/min/1.73 sq.m. Ages 70+ = 75 mL/min/1.73 sq.m. Chronic Kidney Disease: Less than 60 mL/min/1.73 square meters End Stage Renal Disease: Less than 15 mL/min/1.73 square meters Performed By: #### CBC, ADIFF, ANEU, GFR, BMP #### [address] [address] BMP Collected: 04/30/2018 Status: F Source: [facility] 5:53 AM [facility] REPOSITORY TYPE CODE TESTS RESULT OUT OF REFERENCE UNITS RANGE LAB GLU(LOINC) 82-115 mg/dL High Glucose Level 171 LAB NA(LOINC) 136-145 mEq/L Sodium Level 141 LAB K(LOINC) 3.5-5.0 mEq/L Potassium Level 4.7 Result Comment: Specimen slightly hemolyzed. Results may be falsely elevated. LAB CL(LOINC) 98-110 mEq/L Chloride 106 LAB CO2(LOINC) 22-32 mEq/L CO2 25 LAB EBAL(LOINC) 4.0-15.0 mEq/L Electrolyte Balance 10.0 LAB BUN(LOINC) 8.0-22.0 mg/dL BUN 18.0 LAB CRE(LOINC) 0.60-1.40 mg/dL Creatinine Lvl (s) 1.18 LAB BC(LOINC) 10.0-22.0 ratio BUN/Creatinine Ratio 15.3 LAB CA(LOINC) 8.4-10.1 mg/dL Calcium Lvl 8.9 Performed By: #### CBC, ADIFF, ANEU, GFR, BMP #### [place] [address] BMP Collected: 04/26/2018 Status: F Source: [facility] 6:09 AM [facility] REPOSITORY TYPE CODE TESTS RESULT OUT OF REFERENCE UNITS RANGE LAB GLU(LOINC) 82-115 mg/dL Glucose Level 99 LAB NA(LOINC) 136-145 mEq/L Sodium Level 141 LAB K(LOINC) 3.5-5.0 mEq/L Potassium High Level 5.1 LAB CL(LOINC) 98-110 mEq/L Chloride 104 LAB CO2(LOINC) 22-32 mEq/L CO2 30 LAB EBAL(LOINC 4.0-15.0 mEq/L ) Electrolyte Balance 7.0 LAB BUN(LOINC) 8.0-22.0 mg/dL BUN High 26.0 LAB CRE(LOINC) 0.60-1.40 mg/dL Creatinine Lvl (s) 1.35 LAB BC(LOINC) 10.0-22.0 ratio BUN/Creatinine 19.3 Ratio LAB CA(LOINC) 8.4-10.1 mg/dL Calcium Lvl 8.5 Performed By: #### BMP, GFR #### [address] [place], [place] [address] .GFR Collected: 04/26/2018 Status: F Source: [facility] 6:09 AM [facility] REPOSITORY TYPE CODE TESTS RESULT OUT OF REFERENCE UNITS RANGE LAB GFRAA(LOINC ml/min/1.73 ) sqm GFR >60 [place] Result Comment: GFR Population mean for , Non- Americans Ages 20-29 = 116 mL/min/1.73 sq.m. Ages 30-39 = 107 mL/min/1.73 sq.m. Ages 40-49 = 99 mL/min/1.73 sq.m. Ages 50-59 = 93 mL/min/1.73 sq.m. Ages 60-69 = 85 mL/min/1.73 sq.m. Ages 70+ = 75 mL/min/1.73 sq.m. Chronic Kidney Disease: Less than 60 mL/min/1.73 square meters End Stage Renal Disease: Less than 15 mL/min/1.73 square meters LAB GFRNO(LOINC) ml/min/1.73sqm GFR Non- 54 Result Comment: GFR Population mean for , Non- Americans Ages 20-29 = 116 mL/min/1.73 sq.m. Ages 30-39 = 107 mL/min/1.73 sq.m. Ages 40-49 = 99 mL/min/1.73 sq.m. Ages 50-59 = 93 mL/min/1.73 sq.m. Ages 60-69 = 85 mL/min/1.73 sq.m. Ages 70+ = 75 mL/min/1.73 sq.m. Chronic Kidney Disease: Less than 60 mL/min/1.73 square meters End Stage Renal Disease: Less than 15 mL/min/1.73 square meters Performed By: #### BMP, GFR #### [address] [address] XR SPINE LUMBAR Observed: 04/25/2018 Status: F Source: [facility] AP/LAT 11:30 AM [facility] REPOSITORY ORIGINAL XR SPINE LUMBAR AP/LAT CLINICAL STATEMENT: low back pain COMPARISON: 06/01/2016 FINDINGS:Diffuse degenerative changes present. Disc space narrowing, endplate sclerosis, and hypertrophic bone formation about severity is noted. Fusion of L3-L4 is stable with straightening of the norm al lordotic curve. There are mild facet degenerative changes noted. IMPRESSION:Stable degenerative changes. Stable fusion of L3-L4 Interpreted By: Alesha Nicole MD Preliminary Report By: Alesha Nicole MD Electronically Signed By: Alesha Nicole MD Dictated Date: 04/25/2018 12:38:58 PM Prelim Date: 04/25/2018 12:38:58 PM Sign Date: 04/25/2018 12:39:38 PM CBC Collected: 04/25/2018 Status: F Source: [facility] 6:15 AM [facility] REPOSITORY TYPE CODE TESTS RESULT OUT OF REFERENCE UNITS RANGE LAB WBC(LOINC) 4.50-10.80 10 3/mcL WBC 7.60 LAB RBCCT(LOINC 4.50-6.00 10 6/mcL ) Low RBC 3.79 LAB HGB(LOINC) 13.0-17.5 G/dL Low Hgb 10.8 LAB HCT(LOINC) 40.0-52.0 % Low Hct 32.9 LAB MCV(LOINC) 81.0-100.0 fL MCV 86.8 LAB MCH(LOINC) 27.0-33.0 pg MCH 28.6 LAB MCHC(LOINC) 32.0-36.0 G/dL MCHC 32.9 LAB RDW(LOINC) 11.5-15.5 % RDW 13.9 LAB PLT(LOINC) 150-450 10 3/mcL Low Platelet 140 LAB MPV(LOINC) 6.4-10.5 fL MPV 8.6 Performed By: #### CBC, ADIFF, ANEU, BMP, GFR #### [place] [id number] .AUTO DIFF Collected: 04/25/2018 Status: F Source: [facility] 6:15 AM [facility] REPOSITORY TYPE CODE TESTS RESULT OUT OF REFERENCE UNITS RANGE LAB MOLLY(LOINC) 50.0-75.0 % Neutrophil % 62.9 LAB LYM(LOINC) 20.0-40.0 % Lymphocyte % 20.5 LAB MON(LOINC) 2.0-13.0 % Monocyte % 11.6 LAB EO(LOINC) 0.0-6.0 % Eosinophil % 4.3 LAB BAS(LOINC) 0.0-2.5 % Basophil % 0.7 LAB ABLYM(LOIN 0.90-4.32 10 3/mcL C) Lymphocyte, 1.50 Absolute LAB FRANK(LOINC 0.09-1.40 10 3/mcL ) Monocyte, 0.90 Absolute LAB AEOS(LOINC 0.00-0.65 10 3/mcL ) Eosinophil, 0.30 Absolute LAB ABAS(LOINC 0.00-0.27 10 3/mcL ) Basophil, 0.10 Absolute Performed By: #### CBC, ADIFF, ANEU, BMP, GFR #### [place] [id number] .NEUABS Collected: 04/25/2018 Status: F Source: [facility] 6:15 AM [facility] REPOSITORY TYPE CODE TESTS RESULT OUT OF REFERENCE UNITS RANGE LAB ANEU(LOINC) 2.25-8.10 10 3/mcL Neutrophil, 4.70 Absolute Performed By: #### CBC, ADIFF, ANEU, BMP, GFR #### [place] [id number] BMP Collected: 04/25/2018 Status: F Source: [facility] 6:15 AM [facility] REPOSITORY TYPE CODE TESTS RESULT OUT OF REFERENCE UNITS RANGE LAB GLU(LOINC) 82-115 mg/dL Glucose High Level 124 LAB NA(LOINC) 136-145 mEq/L Sodium Level 140 LAB K(LOINC) 3.5-5.0 mEq/L Potassium Level 4.8 LAB CL(LOINC) 98-110 mEq/L Chloride 105 LAB CO2(LOINC) 22-32 mEq/L CO2 26 LAB EBAL(LOINC 4.0-15.0 mEq/L ) Electrolyte Balance 9.0 LAB BUN(LOINC) 8.0-22.0 mg/dL BUN High 25.0 LAB CRE(LOINC) 0.60-1.40 mg/dL Creatinine Lvl (s) 1.19 LAB BC(LOINC) 10.0-22.0 ratio BUN/Creatinine 21.0 Ratio LAB CA(LOINC) 8.4-10.1 mg/dL Low Calcium Lvl 8.3 Performed By: #### CBC, ADIFF, ANEU, BMP, GFR #### [address] [address] .GFR Collected: 04/25/2018 Status: F Source: [facility] 6:15 AM [facility] REPOSITORY TYPE CODE TESTS RESULT OUT OF REFERENCE UNITS RANGE LAB GFRAA(LOINC ml/min/1.73 ) sqm GFR >60 [place] Result Comment: GFR Population mean for , Non- Americans Ages 20-29 = 116 mL/min/1.73 sq.m. Ages 30-39 = 107 mL/min/1.73 sq.m. Ages 40-49 = 99 mL/min/1.73 sq.m. Ages 50-59 = 93 mL/min/1.73 sq.m. Ages 60-69 = 85 mL/min/1.73 sq.m. Ages 70+ = 75 mL/min/1.73 sq.m. Chronic Kidney Disease: Less than 60 mL/min/1.73 square meters End Stage Renal Disease: Less than 15 mL/min/1.73 square meters LAB GFRNO(LOINC) ml/min/1.73sqm GFR Non- >60 Result Comment: GFR Population mean for , Non- Americans Ages 20-29 = 116 mL/min/1.73 sq.m. Ages 30-39 = 107 mL/min/1.73 sq.m. Ages 40-49 = 99 mL/min/1.73 sq.m. Ages 50-59 = 93 mL/min/1.73 sq.m. Ages 60-69 = 85 mL/min/1.73 sq.m. Ages 70+ = 75 mL/min/1.73 sq.m. Chronic Kidney Disease: Less than 60 mL/min/1.73 square meters End Stage Renal Disease: Less than 15 mL/min/1.73 square meters Performed By: #### CBC, ADIFF, ANEU, BMP, GFR #### [address] [address] CBC Collected: 04/24/2018 Status: F Source: [facility] 8:17 AM [facility] REPOSITORY TYPE CODE TESTS RESULT OUT OF REFERENCE UNITS RANGE LAB WBC(LOINC) 4.50-10.80 10 3/mcL WBC 8.80 LAB RBCCT(LOINC 4.50-6.00 10 6/mcL ) Low RBC 4.06 LAB HGB(LOINC) 13.0-17.5 G/dL Low Hgb 11.6 LAB HCT(LOINC) 40.0-52.0 % Low Hct 35.1 LAB MCV(LOINC) 81.0-100.0 fL MCV 86.4 LAB MCH(LOINC) 27.0-33.0 pg MCH 28.6 LAB MCHC(LOINC) 32.0-36.0 G/dL MCHC 33.2 LAB RDW(LOINC) 11.5-15.5 % RDW 14.1 LAB PLT(LOINC) 150-450 10 3/mcL Low Platelet 137 LAB MPV(LOINC) 6.4-10.5 fL MPV 8.4 Performed By: #### CBC, ADIFF, ANEU, BMP, GFR #### [address] [address] .AUTO DIFF Collected: 04/24/2018 Status: F Source: [facility] 8:17 [facility] REPOSITORY TYPE CODE TESTS RESULT OUT OF REFERENCE UNITS RANGE LAB MOLLY(LOINC) 50.0-75.0 % High Neutrophil % 75.4 LAB LYM(LOINC) 20.0-40.0 % Low Lymphocyte % 11.2 LAB MON(LOINC) 2.0-13.0 % Monocyte % 9.6 LAB EO(LOINC) 0.0-6.0 % Eosinophil % 3.3 LAB BAS(LOINC) 0.0-2.5 % Basophil % 0.5 LAB ABLYM(LOIN 0.90-4.32 10 3/mcL C) Lymphocyte, 1.00 Absolute LAB FRANK(LOINC 0.09-1.40 10 3/mcL ) Monocyte, 0.80 Absolute LAB AEOS(LOINC 0.00-0.65 10 3/mcL ) Eosinophil, 0.30 Absolute LAB ABAS(LOINC 0.00-0.27 10 3/mcL ) Basophil, 0.00 Absolute Performed By: #### CBC, ADIFF, ANEU, BMP, GFR #### [address] [address] .NEUABS Collected: 04/24/2018 Status: F Source: [facility] 8:17 AM [facility] REPOSITORY TYPE CODE TESTS RESULT OUT OF REFERENCE UNITS RANGE LAB ANEU(LOINC) 2.25-8.10 10 3/mcL Neutrophil, 6.70 Absolute Performed By: #### CBC, ADIFF, ANEU, BMP, GFR #### [address] [address] BMP Collected: 04/24/2018 Status: F Source: [facility] 8:17 AM [facility] REPOSITORY TYPE CODE TESTS RESULT OUT OF REFERENCE UNITS RANGE LAB GLU(LOINC) 82-115 mg/dL Glucose Level 110 LAB NA(LOINC) 136-145 mEq/L Sodium Level 141 LAB K(LOINC) 3.5-5.0 mEq/L Potassium Level 4.8 LAB CL(LOINC) 98-110 mEq/L Chloride 106 LAB CO2(LOINC) 22-32 mEq/L CO2 28 LAB EBAL(LOINC 4.0-15.0 mEq/L ) Electrolyte Balance 7.0 LAB BUN(LOINC) 8.0-22.0 mg/dL BUN High 25.0 LAB CRE(LOINC) 0.60-1.40 mg/dL Creatinine Lvl (s) 1.12 LAB BC(LOINC) 10.0-22.0 ratio High BUN/Creatinine 22.3 Ratio LAB CA(LOINC) 8.4-10.1 mg/dL Calcium Lvl 8.9 Performed By: #### CBC, ADIFF, ANEU, BMP, GFR #### [address] [address] .GFR Collected: 04/24/2018 Status: F Source: [facility] 8:17 AM [facility] REPOSITORY TYPE CODE TESTS RESULT OUT OF REFERENCE UNITS RANGE LAB GFRAA(LOINC ml/min/1.73 ) sqm GFR >60 [place] Result Comment: GFR Population mean for , Non- Americans Ages 20-29 = 116 mL/min/1.73 sq.m. Ages 30-39 = 107 mL/min/1.73 sq.m. Ages 40-49 = 99 mL/min/1.73 sq.m. Ages 50-59 = 93 mL/min/1.73 sq.m. Ages 60-69 = 85 mL/min/1.73 sq.m. Ages 70+ = 75 mL/min/1.73 sq.m. Chronic Kidney Disease: Less than 60 mL/min/1.73 square meters End Stage Renal Disease: Less than 15 mL/min/1.73 square meters LAB GFRNO(LOINC) ml/min/1.73sqm GFR Non- >60 Result Comment: GFR Population mean for , Non- Americans Ages 20-29 = 116 mL/min/1.73 sq.m. Ages 30-39 = 107 mL/min/1.73 sq.m. Ages 40-49 = 99 mL/min/1.73 sq.m. Ages 50-59 = 93 mL/min/1.73 sq.m. Ages 60-69 = 85 mL/min/1.73 sq.m. Ages 70+ = 75 mL/min/1.73 sq.m. Chronic Kidney Disease: Less than 60 mL/min/1.73 square meters End Stage Renal Disease: Less than 15 mL/min/1.73 square meters Performed By: #### CBC, ADVIVIANA ANEU, BMP, GFR #### [address] [address] CBC Collected: 04/23/2018 Status: F Source: [facility] 4:29 AM [facility] REPOSITORY TYPE CODE TESTS RESULT OUT OF REFERENCE UNITS RANGE LAB WBC(LOINC) 4.50-10.80 10 3/mcL WBC 7.00 LAB RBCCT(LOINC 4.50-6.00 10 6/mcL ) Low RBC 3.42 LAB HGB(LOINC) 13.0-17.5 G/dL Low Hgb 9.8 LAB HCT(LOINC) 40.0-52.0 % Low Hct 29.6 LAB MCV(LOINC) 81.0-100.0 fL MCV 86.6 LAB MCH(LOINC) 27.0-33.0 pg MCH 28.8 LAB MCHC(LOINC) 32.0-36.0 G/dL MCHC 33.2 LAB RDW(LOINC) 11.5-15.5 % RDW 14.2 LAB PLT(LOINC) 150-450 10 3/mcL Low Platelet 106 LAB MPV(LOINC) 6.4-10.5 fL MPV 8.5 Performed By: #### CBC, ADVIVIANA, ANEU, BMP, GFR #### [address] [address] .AUTO DIFF Collected: 04/23/2018 Status: F Source: [facility] 4:29 AM [facility] REPOSITORY TYPE CODE TESTS RESULT OUT OF REFERENCE UNITS RANGE LAB MOLLY(LOINC) 50.0-75.0 % Neutrophil % 64.2 LAB LYM(LOINC) 20.0-40.0 % Low Lymphocyte % 19.6 LAB MON(LOINC) 2.0-13.0 % Monocyte % 11.7 LAB EO(LOINC) 0.0-6.0 % Eosinophil % 3.8 LAB BAS(LOINC) 0.0-2.5 % Basophil % 0.7 LAB ABLYM(LOIN 0.90-4.32 10 3/mcL C) Lymphocyte, 1.40 Absolute LAB FRANK(LOINC 0.09-1.40 10 3/mcL ) Monocyte, 0.80 Absolute LAB AEOS(LOINC 0.00-0.65 10 3/mcL ) Eosinophil, 0.30 Absolute LAB ABAS(LOINC 0.00-0.27 10 3/mcL ) Basophil, 0.00 Absolute Performed By: #### CBC, ADIFF, ANEU, BMP, GFR #### [place] [address] .NEUABS Collected: 04/23/2018 Status: F Source: [facility] 4:29 AM [facility] REPOSITORY TYPE CODE TESTS RESULT OUT OF REFERENCE UNITS RANGE LAB ANEU(LOINC) 2.25-8.10 10 3/mcL Neutrophil, 4.50 Absolute Performed By: #### CBC, ADIFF, ANEU, BMP, GFR #### [place] [address] BMP Collected: 04/23/2018 Status: F Source: [facility] 4:29 [facility] REPOSITORY TYPE CODE TESTS RESULT OUT OF REFERENCE UNITS RANGE LAB GLU(LOINC) 82-115 mg/dL Glucose High Level 177 LAB NA(LOINC) 136-145 mEq/L Sodium Level 139 LAB K(LOINC) 3.5-5.0 mEq/L Potassium Level 4.7 LAB CL(LOINC) 98-110 mEq/L Chloride 103 LAB CO2(LOINC) 22-32 mEq/L CO2 28 LAB EBAL(LOINC 4.0-15.0 mEq/L ) Electrolyte Balance 8.0 LAB BUN(LOINC) 8.0-22.0 mg/dL BUN High 34.0 LAB CRE(LOINC) 0.60-1.40 mg/dL Creatinine High Lvl (s) 1.53 LAB BC(LOINC) 10.0-22.0 ratio High BUN/Creatinine 22.2 Ratio LAB CA(LOINC) 8.4-10.1 mg/dL Low Calcium Lvl 8.1 Performed By: #### AMY CHU, ANEU, BMP, GFR #### [address] [address] .GFR Collected: 04/23/2018 Status: F Source: [facility] 4:29 AM [facility] REPOSITORY TYPE CODE TESTS RESULT OUT OF REFERENCE UNITS RANGE LAB GFRAA(LOINC ml/min/1.73 ) sqm GFR 56 [place] Result Comment: GFR Population mean for , Non- Americans Ages 20-29 = 116 mL/min/1.73 sq.m. Ages 30-39 = 107 mL/min/1.73 sq.m. Ages 40-49 = 99 mL/min/1.73 sq.m. Ages 50-59 = 93 mL/min/1.73 sq.m. Ages 60-69 = 85 mL/min/1.73 sq.m. Ages 70+ = 75 mL/min/1.73 sq.m. Chronic Kidney Disease: Less than 60 mL/min/1.73 square meters End Stage Renal Disease: Less than 15 mL/min/1.73 square meters LAB GFRNO(LOINC) ml/min/1.73sqm GFR Non- 46 Result Comment: GFR Population mean for , Non- Americans Ages 20-29 = 116 mL/min/1.73 sq.m. Ages 30-39 = 107 mL/min/1.73 sq.m. Ages 40-49 = 99 mL/min/1.73 sq.m. Ages 50-59 = 93 mL/min/1.73 sq.m. Ages 60-69 = 85 mL/min/1.73 sq.m. Ages 70+ = 75 mL/min/1.73 sq.m. Chronic Kidney Disease: Less than 60 mL/min/1.73 square meters End Stage Renal Disease: Less than 15 mL/min/1.73 square meters Performed By: #### VLAD, ADVIVIANA, ANEU, BMP, GFR #### [address] [address] XR CHEST 2 VIEWS Observed: 04/22/2018 Status: F [facility] REPOSITORY ORIGINAL XR CHEST 2 VIEWS CLINICAL STATEMENT: SOB and chest pain COMPARISON: 04/21/2018 FINDINGS:Pacer is present with battery pack overlying the LEFT midlung. There is a right-sided port. Poststernotomy changes are present with sternal wire dehiscent of proximal sternal wires. There is no pulmonary vascular congestion or consolidation. No pleural effusion or pneumothorax is noted. Degenerative changes are present in the spine. Minimal calcification along the carotid arteries and within the aortic knob is noted. Remote traumatic change to the LEFT ribs is present. IMPRESSION:No acute process or interval change Interpreted By: Alesha Nicole MD Preliminary Report By: Alesha Nicole MD Electronically Signed By: Alesha Nicole MD Dictated Date: 04/22/2018 11:43:01 AM Prelim Date: 04/22/2018 11:43:01 AM Sign Date: 04/22/2018 11:43:46 AM FERR Collected: 04/22/2018 Status: F Source: [facility] 9:19 AM [facility] REPOSITORY TYPE CODE TESTS RESULT OUT OF REFERENCE UNITS RANGE LAB FERR(LOINC) 26-388 ng/mL Ferritin 51 Performed By: #### FERR, FOL, FES, B12 #### [place] [address] FOL Collected: 04/22/2018 Status: F Source: [facility] 9:19 AM [facility] REPOSITORY TYPE CODE TESTS RESULT OUT OF REFERENCE UNITS RANGE LAB FOL(LOINC) 1.1-20.0 ng/mL Folate 15.7 Performed By: #### FERR, FOL, FES, B12 #### [place] [address] FES Collected: 04/22/2018 Status: F Source: [facility] 9:19 AM [facility] REPOSITORY TYPE CODE TESTS RESULT OUT OF RANGE REFERENCE UNITS LAB FE(LOINC) 49-181 mcg/dL Low Iron 20 LAB IBC(LOINC) 250-500 mcg/dL TIBC 282 LAB FESAT(LOINC % ) Iron Sat 7 Performed By: #### FERR, FOL, FES, B12 #### [place] [address] B12 Collected: 04/22/2018 Status: F Source: [facility] 9:19 AM [facility] REPOSITORY TYPE CODE TESTS RESULT OUT OF REFERENCE UNITS RANGE LAB B12(LOINC) 211-911 pg/mL Vitamin B12 465 Lvl Performed By: #### FERR, FOL, FES, B12 #### [address] [address] PBNP Collected: 04/22/2018 Status: F Source: [facility] 9:19 AM [facility] REPOSITORY TYPE CODE TESTS RESULT OUT OF REFERENCE UNITS RANGE LAB PBNP(LOINC) 0-900 pg/mL High N-Terminal 5429 proBNP Result Comment: NT-proBNP results of less than 300 pg/mL effectively rules out acute congestive heart failure with 99% negative predictive value. Performed By: #### PBNP #### [address] [address] CBC Collected: 04/22/2018 Status: F Source: [facility] 5:05 [facility] REPOSITORY TYPE CODE TESTS RESULT OUT OF REFERENCE UNITS RANGE LAB WBC(LOINC) 4.50-10.80 10 3/mcL WBC 9.80 LAB RBCCT(LOINC 4.50-6.00 10 6/mcL ) Low RBC 3.66 LAB HGB(LOINC) 13.0-17.5 G/dL Low Hgb 10.5 LAB HCT(LOINC) 40.0-52.0 % Low Hct 31.4 LAB MCV(LOINC) 81.0-100.0 fL MCV 85.7 LAB MCH(LOINC) 27.0-33.0 pg MCH 28.7 LAB MCHC(LOINC) 32.0-36.0 G/dL MCHC 33.5 LAB RDW(LOINC) 11.5-15.5 % RDW 14.1 LAB PLT(LOINC) 150-450 10 3/mcL Low Platelet 126 LAB MPV(LOINC) 6.4-10.5 fL MPV 8.8 Performed By: #### CBC, ADIFF, ANEU, BMP, TSH, GFR #### [address] [address] .AUTO DIFF Collected: 04/22/2018 Status: F Source: [facility] 5:05 [facility]POS[facility] TYPE CODE TESTS RESULT OUT OF REFERENCE UNITS RANGE LAB MOLLY(LOINC) 50.0-75.0 % Neutrophil % 68.4 LAB LYM(LOINC) 20.0-40.0 % Low Lymphocyte % 18.5 LAB MON(LOINC) 2.0-13.0 % Monocyte % 8.6 LAB EO(LOINC) 0.0-6.0 % Eosinophil % 4.1 LAB BAS(LOINC) 0.0-2.5 % Basophil % 0.4 LAB ABLYM(LOIN 0.90-4.32 10 3/mcL C) Lymphocyte, 1.80 Absolute LAB FRANK(LOINC 0.09-1.40 10 3/mcL ) Monocyte, 0.80 Absolute LAB AEOS(LOINC 0.00-0.65 10 3/mcL ) Eosinophil, 0.40 Absolute LAB ABAS(LOINC 0.00-0.27 10 3/mcL ) Basophil, 0.00 Absolute Performed By: #### CBC, ADIFF, ANEU, BMP, TSH, GFR #### [place] [address] .NEUABS Collected: 04/22/2018 Status: F Source: [facility] 5:05 AM [facility] REPOSITORY TYPE CODE TESTS RESULT OUT OF REFERENCE UNITS RANGE LAB ANEU(LOINC) 2.25-8.10 10 3/mcL Neutrophil, 6.70 Absolute Performed By: #### CBC, ADIFF, ANEU, BMP, TSH, GFR #### [place] [address] BMP Collected: 04/22/2018 Status: F Source: [facility] 5:05 AM [facility] REPOSITORY TYPE CODE TESTS RESULT OUT OF REFERENCE UNITS RANGE LAB GLU(LOINC) 82-115 mg/dL Glucose High Level 145 LAB NA(LOINC) 136-145 mEq/L Sodium Level 138 LAB K(LOINC) 3.5-5.0 mEq/L Potassium High Level 5.1 LAB CL(LOINC) 98-110 mEq/L Chloride 101 LAB CO2(LOINC) 22-32 mEq/L CO2 26 LAB EBAL(LOINC 4.0-15.0 mEq/L ) Electrolyte Balance 11.0 LAB BUN(LOINC) 8.0-22.0 mg/dL BUN High 37.0 LAB CRE(LOINC) 0.60-1.40 mg/dL Creatinine High Lvl (s) 2.09 LAB BC(LOINC) 10.0-22.0 ratio BUN/Creatinine 17.7 Ratio LAB CA(LOINC) 8.4-10.1 mg/dL Low Calcium Lvl 8.2 Performed By: #### CBC, ADIFF, ANEU, BMP, TSH, GFR #### [address] [address] TSH Collected: 04/22/2018 Status: F Source: [facility] 5:05 AM [facility] REPOSITORY TYPE CODE TESTS RESULT OUT OF RANGE REFERENCE UNITS LAB TSH(LOINC) 0.360-3.740 mcIU/mL TSH 1.540 Result Comment: Please note ? as of 05/04/17 new pediatric reference intervals were added for this test. Performed By: #### CBC, ADIFF, ANEU, BMP, TSH, GFR #### [address] [address] .GFR Collected: 04/22/2018 Status: F Source: [facility] 5:05 AM [facility] REPOSITORY TYPE CODE TESTS RESULT OUT OF REFERENCE UNITS RANGE LAB GFRAA(LOINC ml/min/1.73 ) sqm GFR 39 [place] Result Comment: GFR Population mean for , Non- Americans Ages 20-29 = 116 mL/min/1.73 sq.m. Ages 30-39 = 107 mL/min/1.73 sq.m. Ages 40-49 = 99 mL/min/1.73 sq.m. Ages 50-59 = 93 mL/min/1.73 sq.m. Ages 60-69 = 85 mL/min/1.73 sq.m. Ages 70+ = 75 mL/min/1.73 sq.m. Chronic Kidney Disease: Less than 60 mL/min/1.73 square meters End Stage Renal Disease: Less than 15 mL/min/1.73 square meters LAB GFRNO(LOINC) ml/min/1.73sqm GFR Non- 32 Result Comment: GFR Population mean for , Non- Americans Ages 20-29 = 116 mL/min/1.73 sq.m. Ages 30-39 = 107 mL/min/1.73 sq.m. Ages 40-49 = 99 mL/min/1.73 sq.m. Ages 50-59 = 93 mL/min/1.73 sq.m. Ages 60-69 = 85 mL/min/1.73 sq.m. Ages 70+ = 75 mL/min/1.73 sq.m. Chronic Kidney Disease: Less than 60 mL/min/1.73 square meters End Stage Renal Disease: Less than 15 mL/min/1.73 square meters Performed By: #### CBC, ADIFF, ANEU, BMP, TSH, GFR #### [facility] [address] [place] [address] NM PULMONARY PERFUSION Observed: 04/21/2018 Status: F Source: [facility] W/ VENT AEROSOL 6:36 PM [facility] REPOSITORY ORIGINAL NM PULMONARY PERFUSION W/ VENT AEROSOL CLINICAL STATEMENT: Chest pain, concern for PE. TECHNIQUE: Ventilation: Radiopharmaceutical: Tc-99m DTPA Dose: 2 mCi Aerosol technique with tidal breathing Anterior, posterior, lateral, anterior and posterior oblique planar images Perfusion: Radiopharmaceutical: Tc-99m MAA IV Dose: 6.8 mCi Anterior, posterior, lateral, anterior and posterior oblique planar images COMPARISON: Chest radiograph from same day, CTA chest 04/01/2018 FINDINGS: The ventilation images demonstrate a homogeneous distribution of radioaerosol throughout both lung le. The perfusion images also have a homogeneous pattern. No ventilation/perfusion mismatches identified.. IMPRESSION: Low probability of pulmonary embolism. I have personally reviewed the images of this examination and agree with the resident's findings and interpretation. Interpreted By: Genaro Mondragon MD Preliminary Report By: Kelsy Robbins DO Electronically Signed By: Genaro Mondragon MD Dictated Date: 04/21/2018 7:51:14 PM Prelim Date: 04/21/2018 7:55:44 PM Sign Date: 04/21/2018 8:39:13 PM XR CHEST 2 VIEWS Observed: 04/21/2018 Status: F Source: [facility] 6:00 PM [facility] REPOSITORY ORIGINAL XR CHEST 2 VIEWS CLINICAL STATEMENT: chest pain. Shortness of breath COMPARISON: Chest radiograph 04/20/2018 FINDINGS: The heart is upper limits of normal in size. The cardiomediastinal contours are normal. There is a single lead LEFT AICD/pacemaker device. There is a RIGHT chemotherapy port with the tip at the cavoatri al junction. The 1st, 2nd and 3rd median sternotomy wires are fractured. The other median sternotomy wires appear intact. There is no focal consolidation, pleural effusion, vascular congestion, or pneum othorax. There are remote healed rib fractures of the LEFT lower chest. IMPRESSION: No acute cardiopulmonary process. I have personally reviewed the images of this examination and agree with the resident's findings and interpretation. Interpreted By: Genaro Mondragon MD Preliminary Report By: Kelsy Robbins DO Electronically Signed By: Genaro Mondragon MD Dictated Date: 04/21/2018 7:49:18 PM Prelim Date: 04/21/2018 7:51:02 PM Sign Date: 04/21/2018 8:05:32 PM CBC Collected: 04/21/2018 Status: F Source: [facility] 4:13 AM [facility] REPOSITORY TYPE CODE TESTS RESULT OUT OF REFERENCE UNITS RANGE LAB WBC(LOINC) 4.50-10.80 10 3/mcL WBC 9.90 LAB RBCCT(LOINC 4.50-6.00 10 6/mcL ) Low RBC 3.80 LAB HGB(LOINC) 13.0-17.5 G/dL Low Hgb 10.8 LAB HCT(LOINC) 40.0-52.0 % Low Hct 32.4 LAB MCV(LOINC) 81.0-100.0 fL MCV 85.4 LAB MCH(LOINC) 27.0-33.0 pg MCH 28.4 LAB MCHC(LOINC) 32.0-36.0 G/dL MCHC 33.2 LAB RDW(LOINC) 11.5-15.5 % RDW 13.8 LAB PLT(LOINC) 150-450 10 3/mcL Low Platelet 134 LAB MPV(LOINC) 6.4-10.5 fL MPV 8.1 Performed By: #### CBC, ADIFF, ANEU, BMP, GFR #### [place] [address] .AUTO DIFF Collected: 04/21/2018 Status: F Source: [facility] 4:13 AM [facility] REPOSITORY TYPE CODE TESTS RESULT OUT OF REFERENCE UNITS RANGE LAB MOLLY(LOINC) 50.0-75.0 % Neutrophil % 64.9 LAB LYM(LOINC) 20.0-40.0 % Lymphocyte % 22.1 LAB MON(LOINC) 2.0-13.0 % Monocyte % 8.2 LAB EO(LOINC) 0.0-6.0 % Eosinophil % 4.4 LAB BAS(LOINC) 0.0-2.5 % Basophil % 0.4 LAB ABLYM(LOIN 0.90-4.32 10 3/mcL C) Lymphocyte, 2.20 Absolute LAB FRANK(LOINC 0.09-1.40 10 3/mcL ) Monocyte, 0.80 Absolute LAB AEOS(LOINC 0.00-0.65 10 3/mcL ) Eosinophil, 0.40 Absolute LAB ABAS(LOINC 0.00-0.27 10 3/mcL ) Basophil, 0.00 Absolute Performed By: #### CBC, ADIFF, ANEU, BMP, GFR #### [place] [address] .NEUABS Collected: 04/21/2018 Status: F Source: [place] 4:13 AM [facility] REPOSITORY TYPE CODE TESTS RESULT OUT OF REFERENCE UNITS RANGE LAB ANEU(LOINC) 2.25-8.10 10 3/mcL Neutrophil, 6.40 Absolute Performed By: #### CBC, ADIFF, ANEU, BMP, GFR #### [place] [address] BMP Collected: 04/21/2018 Status: F Source: [place] 4:13 AM [facility] REPOSITORY TYPE CODE TESTS RESULT OUT OF REFERENCE UNITS RANGE LAB GLU(LOINC) 82-115 mg/dL Glucose High Level 119 LAB NA(LOINC) 136-145 mEq/L Sodium Level 138 LAB K(LOINC) 3.5-5.0 mEq/L Potassium Level 4.7 LAB CL(LOINC) 98-110 mEq/L Chloride 101 LAB CO2(LOINC) 22-32 mEq/L CO2 29 LAB EBAL(LOINC 4.0-15.0 mEq/L ) Electrolyte Balance 8.0 LAB BUN(LOINC) 8.0-22.0 mg/dL BUN High 29.0 LAB CRE(LOINC) 0.60-1.40 mg/dL Creatinine High Lvl (s) 1.56 LAB BC(LOINC) 10.0-22.0 ratio BUN/Creatinine 18.6 Ratio LAB CA(LOINC) 8.4-10.1 mg/dL Low Calcium Lvl 8.2 Performed By: #### CBC, ADIFF, ANEU, BMP, GFR #### [place] [address] .GFR Collected: 04/21/2018 Status: F Source: [facility] 4:13 AM [facility] REPOSITORY TYPE CODE TESTS RESULT OUT OF REFERENCE UNITS RANGE LAB GFRAA(LOINC ml/min/1.73 ) sqm GFR 55 [place] Result Comment: GFR Population mean for , Non- Americans Ages 20-29 = 116 mL/min/1.73 sq.m. Ages 30-39 = 107 mL/min/1.73 sq.m. Ages 40-49 = 99 mL/min/1.73 sq.m. Ages 50-59 = 93 mL/min/1.73 sq.m. Ages 60-69 = 85 mL/min/1.73 sq.m. Ages 70+ = 75 mL/min/1.73 sq.m. Chronic Kidney Disease: Less than 60 mL/min/1.73 square meters End Stage Renal Disease: Less than 15 mL/min/1.73 square meters LAB GFRNO(LOINC) ml/min/1.73sqm GFR Non- 45 Result Comment: GFR Population mean for , Non- Americans Ages 20-29 = 116 mL/min/1.73 sq.m. Ages 30-39 = 107 mL/min/1.73 sq.m. Ages 40-49 = 99 mL/min/1.73 sq.m. Ages 50-59 = 93 mL/min/1.73 sq.m. Ages 60-69 = 85 mL/min/1.73 sq.m. Ages 70+ = 75 mL/min/1.73 sq.m. Chronic Kidney Disease: Less than 60 mL/min/1.73 square meters End Stage Renal Disease: Less than 15 mL/min/1.73 square meters Performed By: #### CBC, ADIFF, ANEU, BMP, GFR #### [address] [address] TROPI Collected: 04/20/2018 Status: F Source: [facility] 8:07 PM [facility] REPOSITORY TYPE CODE TESTS RESULT OUT OF REFERENCE UNITS RANGE LAB TROPI(LOINC 0.000-0.040 ng/mL ) Troponin I 0.024 Result Comment: Troponin I reference ranges (06/28/14): 0.00-0.040 ng/mL Negative and non-diagnostic. >0.040 ng/mL Consistent with cardiac damage, increased clinical risk and possibility of myocardial infarction. Serial measurements, a rise & fall in test results, clinical history, appropriate symptoms and/or ECG changes may help assess possibility of UT. *Other non-acute coronary syndrome conditions such as CHF, myocarditis, pulmonary emboli, sepsis and cardiac surgery could result in myocardial damage and increased troponin levels. Performed By: #### TROPI #### [address] [id number] [facility] Collected: 04/20/2018 Status: F Source: [facility] 3:13 PM [facility] REPOSITORY TYPE CODE TESTS RESULT OUT OF REFERENCE UNITS RANGE LAB TROPI(LOINC 0.000-0.040 ng/mL ) Troponin I 0.026 Result Comment: Troponin I reference ranges (06/28/14): 0.00-0.040 ng/mL Negative and non-diagnostic. >0.040 ng/mL Consistent with cardiac damage, increased clinical risk and possibility of myocardial infarction. Serial measurements, a rise & fall in test results, clinical history, appropriate symptoms and/or ECG changes may help assess possibility of UT. *Other non-acute coronary syndrome conditions such as CHF, myocarditis, pulmonary emboli, sepsis and cardiac surgery could result in myocardial damage and increased troponin levels. Performed By: #### TROPI #### [address] [address] TR[facility] Collected: 04/20/2018 Status: F Source: [facility] 7:01 AM [facility] REPOSITORY TYPE CODE TESTS RESULT OUT OF REFERENCE UNITS RANGE LAB TROPI(LOINC 0.000-0.040 ng/mL ) Troponin I 0.031 Result Comment: Troponin I reference ranges (06/28/14): 0.00-0.040 ng/mL Negative and non-diagnostic. >0.040 ng/mL Consistent with cardiac damage, increased clinical risk and possibility of myocardial infarction. Serial measurements, a rise & fall in test results, clinical history, appropriate symptoms and/or ECG changes may help assess possibility of UT. *Other non-acute coronary syndrome conditions such as CHF, myocarditis, pulmonary emboli, sepsis and cardiac surgery could result in myocardial damage and increased troponin levels. Performed By: #### TROPI #### [address] [address] TR[facility] Collected: 04/20/2018 Status: F Source: [facility] 3:06 AM [facility] REPOSITORY TYPE CODE TESTS RESULT OUT OF REFERENCE UNITS RANGE LAB TROPI(LOINC 0.000-0.040 ng/mL ) Troponin I 0.039 Result Comment: Troponin I reference ranges (06/28/14): 0.00-0.040 ng/mL Negative and non-diagnostic. >0.040 ng/mL Consistent with cardiac damage, increased clinical risk and possibility of myocardial infarction. Serial measurements, a rise & fall in test results, clinical history, appropriate symptoms and/or ECG changes may help assess possibility of UT. *Other non-acute coronary syndrome conditions such as CHF, myocarditis, pulmonary emboli, sepsis and cardiac surgery could result in myocardial damage and increased troponin levels. Performed By: #### TROPI #### [place] [address] XR CHEST 1 VIEW Observed: 04/20/2018 Status: F Source: [facility] 2:28 AM [facility] REPOSITORY ORIGINAL XR CHEST 1 VIEW Clinical Statement: SOB/cough/fever. COMPARISON: CT chest 612 2 FINDINGS: There is no focal consolidation. No pleural fluid or pneumothorax. The heart size is within normal limits. There is no visible acute rib fracture or aggressive osseous lesion. There is a left- sided implanted cardiac device with its lead in the expected location. The RIGHT chest port is redemonstrated, unchanged. There are median sternotomy wires. Remote LEFT lower rib fractures are visible. IMPRESSION: No acute cardiopulmonary abnormality. Interpreted By: Justin Jacobs Preliminary Report By: Justin Jacobs Electronically Signed By: Justin Jacobs Dictated Date: 04/20/2018 2:39:46 AM Prelim Date: 04/20/2018 2:39:46 AM Sign Date: 04/20/2018 2:40:57 AM CBC Collected: 04/20/2018 Status: F Source: [facility] 1:00 AM [facility] REPOSITORY TYPE CODE TESTS RESULT OUT OF REFERENCE UNITS RANGE LAB WBC(LOINC) 4.50-10.80 10 3/mcL WBC 10.40 LAB RBCCT(LOINC 4.50-6.00 10 6/mcL ) Low RBC 4.00 LAB HGB(LOINC) 13.0-17.5 G/dL Low Hgb 11.6 LAB HCT(LOINC) 40.0-52.0 % Low Hct 34.0 LAB MCV(LOINC) 81.0-100.0 fL MCV 85.0 LAB MCH(LOINC) 27.0-33.0 pg MCH 28.9 LAB MCHC(LOINC) 32.0-36.0 G/dL MCHC 34.0 LAB RDW(LOINC) 11.5-15.5 % RDW 14.2 LAB PLT(LOINC) 150-450 10 3/mcL Platelet 151 LAB MPV(LOINC) 6.4-10.5 fL MPV 8.5 Performed By: #### CBC, ADIFF, ANEU, BMP, GFR, TROPI #### [place] [address] .AUTO DIFF Collected: 04/20/2018 Status: F Source: [facility] 1:00 AM [facility] REPOSITORY TYPE CODE TESTS RESULT OUT OF REFERENCE UNITS RANGE LAB MOLLY(LOINC) 50.0-75.0 % Neutrophil % 72.9 LAB LYM(LOINC) 20.0-40.0 % Low Lymphocyte % 14.4 LAB MON(LOINC) 2.0-13.0 % Monocyte % 9.7 LAB EO(LOINC) 0.0-6.0 % Eosinophil % 2.2 LAB BAS(LOINC) 0.0-2.5 % Basophil % 0.8 LAB ABLYM(LOIN 0.90-4.32 10 3/mcL C) Lymphocyte, 1.50 Absolute LAB FRANK(LOINC 0.09-1.40 10 3/mcL ) Monocyte, 1.00 Absolute LAB AEOS(LOINC 0.00-0.65 10 3/mcL ) Eosinophil, 0.20 Absolute LAB ABAS(LOINC 0.00-0.27 10 3/mcL ) Basophil, 0.10 Absolute Performed By: #### CBC, ADIFF, ANEU, BMP, GFR, TROPI #### [place] [address] .NEUABS Collected: 04/20/2018 Status: F Source: [facility] 1:00 AM [facility] REPOSITORY TYPE CODE TESTS RESULT OUT OF REFERENCE UNITS RANGE LAB ANEU(LOINC) 2.25-8.10 10 3/mcL Neutrophil, 7.60 Absolute Performed By: #### CBC, ADIFF, ANEU, BMP, GFR, TROPI #### [place] [address] BMP Collected: 04/20/2018 Status: F Source: [facility] 1:00 AM [facility] REPOSITORY TYPE CODE TESTS RESULT OUT OF REFERENCE UNITS RANGE LAB GLU(LOINC) 82-115 mg/dL Glucose High Level 286 LAB NA(LOINC) 136-145 mEq/L Sodium Level 138 LAB K(LOINC) 3.5-5.0 mEq/L Potassium Level 4.5 LAB CL(LOINC) 98-110 mEq/L Chloride 103 LAB CO2(LOINC) 22-32 mEq/L CO2 25 LAB EBAL(LOINC 4.0-15.0 mEq/L ) Electrolyte Balance 10.0 LAB BUN(LOINC) 8.0-22.0 mg/dL BUN High 24.0 LAB CRE(LOINC) 0.60-1.40 mg/dL Creatinine High Lvl (s) 1.59 LAB BC(LOINC) 10.0-22.0 ratio BUN/Creatinine 15.1 Ratio LAB CA(LOINC) 8.4-10.1 mg/dL Calcium Lvl 8.5 Performed By: #### CBC, ADIFF, ANEU, BMP, GFR, TROPI #### [facility] [address] [place] [address] .GFR Collected: 04/20/2018 Status: F Source: [facility] 1:00 AM [facility] REPOSITORY TYPE CODE TESTS RESULT OUT OF REFERENCE UNITS RANGE LAB GFRAA(LOINC ml/min/1.73 ) sqm GFR 54 [place] Result Comment: GFR Population mean for , Non- Americans Ages 20-29 = 116 mL/min/1.73 sq.m. Ages 30-39 = 107 mL/min/1.73 sq.m. Ages 40-49 = 99 mL/min/1.73 sq.m. Ages 50-59 = 93 mL/min/1.73 sq.m. Ages 60-69 = 85 mL/min/1.73 sq.m. Ages 70+ = 75 mL/min/1.73 sq.m. Chronic Kidney Disease: Less than 60 mL/min/1.73 square meters End Stage Renal Disease: Less than 15 mL/min/1.73 square meters LAB GFRNO(LOINC) ml/min/1.73sqm GFR Non- 44 Result Comment: GFR Population mean for , Non- Americans Ages 20-29 = 116 mL/min/1.73 sq.m. Ages 30-39 = 107 mL/min/1.73 sq.m. Ages 40-49 = 99 mL/min/1.73 sq.m. Ages 50-59 = 93 mL/min/1.73 sq.m. Ages 60-69 = 85 mL/min/1.73 sq.m. Ages 70+ = 75 mL/min/1.73 sq.m. Chronic Kidney Disease: Less than 60 mL/min/1.73 square meters End Stage Renal Disease: Less than 15 mL/min/1.73 square meters Performed By: #### CBC, ADIFF, ANEU, BMP, GFR, TROPI #### [address] [address] TROPI Collected: 04/20/2018 Status: F Source: [facility] 1:00 AM [facility] REPOSITORY TYPE CODE TESTS RESULT OUT OF REFERENCE UNITS RANGE LAB TROPI(LOINC 0.000-0.040 ng/mL ) Troponin I 0.017 Result Comment: Troponin I reference ranges (06/28/14): 0.00-0.040 ng/mL Negative and non-diagnostic. >0.040 ng/mL Consistent with cardiac damage, increased clinical risk and possibility of myocardial infarction. Serial measurements, a rise & fall in test results, clinical history, appropriate symptoms and/or ECG changes may help assess possibility of UT. *Other non-acute coronary syndrome conditions such as CHF, myocarditis, pulmonary emboli, sepsis and cardiac surgery could result in myocardial damage and increased troponin levels. Performed By: #### CBC, ADIFF, ANEU, BMP, GFR, TROPI #### [address] [address] TROPI Collected: 04/01/2018 Status: F Source: [facility] 11:55 PM [facility] REPOSITORY TYPE CODE TESTS RESULT OUT OF REFERENCE UNITS RANGE LAB TROPI(LOINC 0.000-0.040 ng/mL ) Troponin I 0.030 Result Comment: Troponin I reference ranges (06/28/14): 0.00-0.040 ng/mL Negative and non-diagnostic. >0.040 ng/mL Consistent with cardiac damage, increased clinical risk and possibility of myocardial infarction. Serial measurements, a rise & fall in test results, clinical history, appropriate symptoms and/or ECG changes may help assess possibility of UT. *Other non-acute coronary syndrome conditions such as CHF, myocarditis, pulmonary emboli, sepsis and cardiac surgery could result in myocardial damage and increased troponin levels. Performed By: #### TROPI #### [facility] [address] [place] [address] NM MYOCARDIAL SPECT Observed: 04/01/2018 Status: C Source: [place] STRESS/REST 11:18 PM [facility] REPOSITORY ADDENDUM There is increased radiotracer uptake on the right chest wall. ADDENDUM There is increased radiotracer uptake on the right chest wall. ORIGINAL NM MYOCARDIAL SPECT STRESS/REST CLINICAL STATEMENT: Chest pain TECHNIQUE: Lexiscan dose:0.4 mg Radiopharmaceutical (stress): Tc-99m Sestamibi Dose:18.9 mCi Radiopharmaceutical (rest): Tc-99m Sestamibi Dose:7 mCi SPECT acquisition and processing Reconstruction and reorientation of SPECT images into short axis, vertical and horizontal long axis planes Quantitative LVEF assessment COMPARISON:October 2017 REPORT: 1. SPECT images demonstrate severely decreased uptake in the mid to distal anterior wall and the apex. This is present both corrected and non corrected images likely represent previous infarct. Also dec reased uptake noticed on the inferior wall which improved in the corrected images likely due to diaphragmatic attenuation. 2. Gated SPECT imaging reveals hypokinesia of the anterior wall and apex. 3. Reduced LV function with EF of 33% with an end-diastolic volume of 221 mL. 4. Dilated LEFT ventricle and tid of 1.06 IMPRESSION: 1. 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 No evidence of reversible ischemia noticed in this study. 2. Severe hypokinesis of the anterior wall with dyskinesis of the apex. Decreased LV function with EF 33% 3. Compared to the study from October 2017 there is no new significant changes. Interpreted By: Ortiz Perera MD Preliminary Report By: Louie Turner Electronically Signed By: Ortiz Perera MD Dictated Date: 04/02/2018 10:40:51 AM Prelim Date: 04/02/2018 10:57:41 AM Sign Date: 04/02/2018 11:16:37 AM TROPI Collected: 04/01/2018 Status: F Source: [facility] 9:02 PM [facility] TYPE CODE TESTS RESULT OUT OF REFERENCE UNITS RANGE LAB TROPI(LOINC 0.000-0.040 ng/mL ) Troponin I 0.027 Result Comment: Troponin I reference ranges (06/28/14): 0.00-0.040 ng/mL Negative and non-diagnostic. >0.040 ng/mL Consistent with cardiac damage, increased clinical risk and possibility of myocardial infarction. Serial measurements, a rise & fall in test results, clinical history, appropriate symptoms and/or ECG changes may help assess possibility of UT. *Other non-acute coronary syndrome conditions such as CHF, myocarditis, pulmonary emboli, sepsis and cardiac surgery could result in myocardial damage and increased troponin levels. Performed By: #### TROPI #### [place] [address] CT ANGIOGRAPHY CHEST Observed: 04/01/2018 Status: F Source: [place] W/CONTRAST 7:07 [facility] REPOSITORY ORIGINAL CT ANGIOGRAPHY CHEST W/CONTRAST: Multiplanar sagittal, axial, coronal, and 3D reconstructions were reviewed on a separate workstation. This exam was performed according to our departmental dose optimization program, and includes the following measures where applicable: automated exposure control, adjustment of the mAs and/or kVp accord ing to patient size and/or exam, and an iterative reconstruction algorithm. CLINICAL INDICATION: chest pain; suspect PE. Chest pain short of breath for 10 days. Patient had PE 10 years ago COMPARISON: CT thorax without contrast 12/10/2017, CTA chest 08/18/2017 FINDINGS: The contrast bolus is adequate for the evaluation of the lobar and segmental pulmonary arterial branches. No intraluminal thrombus or abrupt arterial cut off is seen to suggest acute pulmonary embolism. The main pulmonary artery is normal in caliber, and there is no evidence of RIGHT ventricular strain. There is normal intravascular enhancement of the aortic arch without evidence of dissection. Mild atherosclerotic irregularity is seen within the aortic arch, and there is no aneurysm. Calcific atherosc lerotic irregularity is seen within the coronary arteries. The heart is enlarged. There is post surgical changes of median sternotomy and CABG. There is a left- sided AICD within the chest wall in approp riate position. There is a right-sided port with tip ending in RIGHT atrium. The trachea and mainstem bronchi are patent. The esophagus is nondilated, and the visualized thyroid exhibits no focal abnormality. No pathologically enlarged axillary, hilar, or mediastinal lymph nodes are identified. No focal consolidation, pleural effusion, or pneumothorax is seen. There are scattered areas of scarring and/or atelectasis bilaterally. The previously described nodule along the RIGHT major fissure is no longer visualized. No acute osseous abnormality. Degenerative changes are seen within the spine. Limited images through the upper abdomen are noncontributory. IMPRESSION: No evidence of pulmonary embolism. No acute infiltrates. I have personally reviewed the images of this examination and agree with the resident's findings and interpretation. Interpreted By: Ranjana Diallo MD Preliminary Report By: Rich Escobar MD Electronically Signed By: Ranjana Diallo MD Dictated Date: 04/01/2018 7:22:27 PM Prelim Date: 04/01/2018 7:49:59 PM Sign Date: 04/02/2018 1:44:13 AM XR CHEST 2 VIEWS Observed: 04/01/2018 Status: F Source: [place] [facility] 2:48 PM [facility] REPOSITORY ORIGINAL XR CHEST 2 VIEWS, Clinical Statement: CHEST PAIN, Comparison: 02/08/2018 Findings: The lungs show no consolidation or mass. Heart size and mediastinal contours are stable. No consolidation, pneumothorax, pleural fluid, or vascular congestion is seen. The bones show no acute process. P revious sternotomy with fracture of the couple of upper sternal wires. Single lead left-sided pacemaker as previously. Right-sided central venous port also present previously. Moderate coronary artery calcification. IMPRESSION: No acute cardio pulmonary process. Interpreted By: Elliott Olivarez MD Preliminary Report By: Elliott Olivarez MD Electronically Signed By: Elliott Olivarez MD Dictated Date: 04/01/2018 3:12:05 PM Prelim Date: 04/01/2018 3:12:05 PM Sign Date: 04/01/2018 3:12:51 PM CBC Collected: 04/01/2018 Status: F Source: [place] [facility] 2:21 PM [facility] REPOSITORY TYPE CODE TESTS RESULT OUT OF REFERENCE UNITS RANGE LAB WBC(LOINC) 4.50-10.80 10 3/mcL High WBC 12.50 LAB RBCCT(LOINC 4.50-6.00 10 6/mcL ) Low RBC 4.48 LAB HGB(LOINC) 13.0-17.5 G/dL Low Hgb 12.6 LAB HCT(LOINC) 40.0-52.0 % Low Hct 37.6 LAB MCV(LOINC) 81.0-100.0 fL MCV 83.9 LAB MCH(LOINC) 27.0-33.0 pg MCH 28.2 LAB MCHC(LOINC) 32.0-36.0 G/dL MCHC 33.6 LAB RDW(LOINC) 11.5-15.5 % RDW 13.8 LAB PLT(LOINC) 150-450 10 3/mcL Low Platelet 147 LAB MPV(LOINC) 6.4-10.5 fL MPV 8.2 Performed By: #### CBC, ADIFF, ANEU, GFR, TROPI, BMP, DIMER #### [address] [address] .AUTO DIFF Collected: 04/01/2018 Status: F Source: [facility] 2:21 [facility] REPOSITORY TYPE CODE TESTS RESULT OUT OF REFERENCE UNITS RANGE LAB MOLLY(LOINC) 50.0-75.0 % High Neutrophil % 77.8 LAB LYM(LOINC) 20.0-40.0 % Low Lymphocyte % 8.9 LAB MON(LOINC) 2.0-13.0 % Monocyte % 10.1 LAB EO(LOINC) 0.0-6.0 % Eosinophil % 2.7 LAB BAS(LOINC) 0.0-2.5 % Basophil % 0.5 LAB ABLYM(LOIN 0.90-4.32 10 3/mcL C) Lymphocyte, 1.10 Absolute LAB FRANK(LOINC 0.09-1.40 10 3/mcL ) Monocyte, 1.30 Absolute LAB AEOS(LOINC 0.00-0.65 10 3/mcL ) Eosinophil, 0.30 Absolute LAB ABAS(LOINC 0.00-0.27 10 3/mcL ) Basophil, 0.10 Absolute Performed By: #### CBC, ADIFF, ANEU, GFR, TROPI, BMP, DIMER #### [address] [address] .NEUABS Collected: 04/01/2018 Status: F Source: [facility] 2:21 [facility] REPOSITORY TYPE CODE TESTS RESULT OUT OF REFERENCE UNITS RANGE LAB ANEU(LOINC) 2.25-8.10 10 3/mcL High Neutrophil, 9.70 Absolute Performed By: #### CBC, ADIFF, ANEU, GFR, TROPI, BMP, DIMER #### [address] [address] .GFR Collected: 04/01/2018 Status: F Source: [facility] 2:21 PM [facility] REPOSITORY TYPE CODE TESTS RESULT OUT OF REFERENCE UNITS RANGE LAB GFRAA(LOINC ml/min/1.73 ) sqm GFR 57 [place] Result Comment: GFR Population mean for , Non- Americans Ages 20-29 = 116 mL/min/1.73 sq.m. Ages 30-39 = 107 mL/min/1.73 sq.m. Ages 40-49 = 99 mL/min/1.73 sq.m. Ages 50-59 = 93 mL/min/1.73 sq.m. Ages 60-69 = 85 mL/min/1.73 sq.m. Ages 70+ = 75 mL/min/1.73 sq.m. Chronic Kidney Disease: Less than 60 mL/min/1.73 square meters End Stage Renal Disease: Less than 15 mL/min/1.73 square meters LAB GFRNO(LOINC) ml/min/1.73sqm GFR Non- 47 Result Comment: GFR Population mean for , Non- Americans Ages 20-29 = 116 mL/min/1.73 sq.m. Ages 30-39 = 107 mL/min/1.73 sq.m. Ages 40-49 = 99 mL/min/1.73 sq.m. Ages 50-59 = 93 mL/min/1.73 sq.m. Ages 60-69 = 85 mL/min/1.73 sq.m. Ages 70+ = 75 mL/min/1.73 sq.m. Chronic Kidney Disease: Less than 60 mL/min/1.73 square meters End Stage Renal Disease: Less than 15 mL/min/1.73 square meters Performed By: #### CBC, ADIFF, ANEU, GFR, TROPI, BMP, DIMER #### [address] [address] TROPI Collected: 04/01/2018 Status: F Source: [facility] 2:21 PM [facility] REPOSITORY TYPE CODE TESTS RESULT OUT OF REFERENCE UNITS RANGE LAB TROPI(LOINC 0.000-0.040 ng/mL ) Troponin I 0.021 Result Comment: Troponin I reference ranges (06/28/14): 0.00-0.040 ng/mL Negative and non-diagnostic. >0.040 ng/mL Consistent with cardiac damage, increased clinical risk and possibility of myocardial infarction. Serial measurements, a rise & fall in test results, clinical history, appropriate symptoms and/or ECG changes may help assess possibility of UT. *Other non-acute coronary syndrome conditions such as CHF, myocarditis, pulmonary emboli, sepsis and cardiac surgery could result in myocardial damage and increased troponin levels. Performed By: #### CBC, ADIFF, ANEU, GFR, TROPI, BMP, DIMER #### [address] [address] BMP Collected: 04/01/2018 Status: F Source: [facility] 2:21 [facility] REPOSITORY TYPE CODE TESTS RESULT OUT OF RANGE REFERENCE UNITS LAB GLU(LOINC) 82-115 mg/dL Glucose Abnormal Level 420 Alert LAB NA(LOINC) 136-145 mEq/L Low Sodium Level 133 LAB K(LOINC) 3.5-5.0 mEq/L Potassium Level 4.6 LAB CL(LOINC) 98-110 mEq/L Low Chloride 97 LAB CO2(LOINC) 22-32 mEq/L CO2 29 LAB EBAL(LOINC 4.0-15.0 mEq/L ) Electrolyte Balance 7.0 LAB BUN(LOINC) 8.0-22.0 mg/dL High BUN 23.0 LAB CRE(LOINC) 0.60-1.40 mg/dL High Creatinine Lvl (s) 1.51 LAB BC(LOINC) 10.0-22.0 ratio BUN/Creatinine 15.2 Ratio LAB CA(LOINC) 8.4-10.1 mg/dL Calcium Lvl 8.9 Performed By: #### CBC, ADIFF, ANEU, GFR, TROPI, BMP, DIMER #### [address] [address] DIMER Collected: 04/01/2018 Status: F Source: [facility] 2:21 [facility] REPOSITORY TYPE CODE TESTS RESULT OUT OF RANGE REFERENCE UNITS LAB DIMER(LOINC 0-230 ng/mL D-DU ) High D-Dimer 291 Result Comment: Results reported in D- DU ng/ml. Positive for D-dimer. A positive D-dimer may occur in the following: DVT, PE, DIC, Trauma, Cancer, Sepsis, , Rheumatoid arthritis, Myocardial infarction and Cirrhosis. Note: Not affected by Rheumatoid Factor <=1400 IU/mL The result of the D-Dimer test should be evaluated in the context of all the clinical and laboratory data available. In those instances where the laboratory result does not agree with the clinical evaluation, additional tests should be performed accordingly. Performed By: #### CBC, ADIFF, ANEU, GFR, TROPI, BMP, DIMER #### [address] [address] CBC Collected: 04/01/2018 Status: F Source: [facility] 12:52 [facility] REPOSITORY TYPE CODE TESTS RESULT OUT OF REFERENCE UNITS RANGE LAB WBC(LOINC) 4.50-10.80 10 3/mcL High WBC 12.00 LAB RBCCT(LOINC 4.50-6.00 10 6/mcL ) RBC 4.78 LAB HGB(LOINC) 13.0-17.5 G/dL Hgb 13.5 LAB HCT(LOINC) 40.0-52.0 % Hct 40.5 LAB MCV(LOINC) 81.0-100.0 fL MCV 84.8 LAB MCH(LOINC) 27.0-33.0 pg MCH 28.2 LAB MCHC(LOINC) 32.0-36.0 G/dL MCHC 33.3 LAB RDW(LOINC) 11.5-15.5 % RDW 13.5 LAB PLT(LOINC) 150-450 10 3/mcL Platelet 176 LAB MPV(LOINC) 6.4-10.5 fL MPV 9.0 Performed By: #### CBC, ADIFF, ANEU, GFR, BMP, A1C #### [address] [address] .AUTO DIFF Collected: 04/01/2018 Status: F Source: [facility] 12:52 [facility] REPOSITORY TYPE CODE TESTS RESULT OUT OF REFERENCE UNITS RANGE LAB MOLLY(LOINC) 50.0-75.0 % High Neutrophil % 77.2 LAB LYM(LOINC) 20.0-40.0 % Low Lymphocyte % 10.3 LAB MON(LOINC) 2.0-13.0 % Monocyte % 8.9 LAB EO(LOINC) 0.0-6.0 % Eosinophil % 3.1 LAB BAS(LOINC) 0.0-2.5 % Basophil % 0.5 LAB ABLYM(LOIN 0.90-4.32 10 3/mcL C) Lymphocyte, 1.20 Absolute LAB FRANK(LOINC 0.09-1.40 10 3/mcL ) Monocyte, 1.10 Absolute LAB AEOS(LOINC 0.00-0.65 10 3/mcL ) Eosinophil, 0.40 Absolute LAB ABAS(LOINC 0.00-0.27 10 3/mcL ) Basophil, 0.10 Absolute Performed By: #### CBC, ADIFF, ANEU, GFR, BMP, A1C #### [address] [address] .NEUABS Collected: 04/01/2018 Status: F Source: [facility] 12:52 PM [facility] REPOSITORY TYPE CODE TESTS RESULT OUT OF REFERENCE UNITS RANGE LAB ANEU(LOINC) 2.25-8.10 10 3/mcL High Neutrophil, 9.30 Absolute Performed By: #### CBC, ADIFF, ANEU, GFR, BMP, A1C #### [place] [address] .GFR Collected: 04/01/2018 Status: F Source: [facility] 12:52 [facility] REPOSITORY TYPE CODE TESTS RESULT OUT OF REFERENCE UNITS RANGE LAB GFRAA(LOINC ml/min/1.73 ) sqm GFR 54 [place] Result Comment: GFR Population mean for , Non- Americans Ages 20-29 = 116 mL/min/1.73 sq.m. Ages 30-39 = 107 mL/min/1.73 sq.m. Ages 40-49 = 99 mL/min/1.73 sq.m. Ages 50-59 = 93 mL/min/1.73 sq.m. Ages 60-69 = 85 mL/min/1.73 sq.m. Ages 70+ = 75 mL/min/1.73 sq.m. Chronic Kidney Disease: Less than 60 mL/min/1.73 square meters End Stage Renal Disease: Less than 15 mL/min/1.73 square meters LAB GFRNO(LOINC) ml/min/1.73sqm GFR Non- 44 Result Comment: GFR Population mean for , Non- Americans Ages 20-29 = 116 mL/min/1.73 sq.m. Ages 30-39 = 107 mL/min/1.73 sq.m. Ages 40-49 = 99 mL/min/1.73 sq.m. Ages 50-59 = 93 mL/min/1.73 sq.m. Ages 60-69 = 85 mL/min/1.73 sq.m. Ages 70+ = 75 mL/min/1.73 sq.m. Chronic Kidney Disease: Less than 60 mL/min/1.73 square meters End Stage Renal Disease: Less than 15 mL/min/1.73 square meters Performed By: #### CBC, ADIFF, ANEU, GFR, BMP, A1C #### [address] [address] BMP Collected: 04/01/2018 Status: F Source: [facility] 12:52 [facility] REPOSITORY TYPE CODE TESTS RESULT OUT OF RANGE REFERENCE UNITS LAB GLU(LOINC) 82-115 mg/dL Glucose Abnormal Level 429 Alert LAB NA(LOINC) 136-145 mEq/L Low Sodium Level 135 LAB K(LOINC) 3.5-5.0 mEq/L Potassium Level 4.8 LAB CL(LOINC) 98-110 mEq/L Chloride 98 LAB CO2(LOINC) 22-32 mEq/L CO2 27 LAB EBAL(LOINC 4.0-15.0 mEq/L ) Electrolyte Balance 10.0 LAB BUN(LOINC) 8.0-22.0 mg/dL High BUN 24.0 LAB CRE(LOINC) 0.60-1.40 mg/dL High Creatinine Lvl (s) 1.59 LAB BC(LOINC) 10.0-22.0 ratio BUN/Creatinine 15.1 Ratio LAB CA(LOINC) 8.4-10.1 mg/dL Calcium Lvl 9.2 Performed By: #### CBC, ADIFF, ANEU, GFR, BMP, A1C #### [address] [address] A1C Collected: 04/01/2018 Status: F Source: [facility] 12:52 [facility] REPOSITORY TYPE CODE TESTS RESULT OUT OF RANGE REFERENCE UNITS LAB A1C(LOINC) 4.0-6.0 % High Hgb A1c 13.6 Performed By: #### CBC, ADIFF, ANEU, GFR, BMP, A1C #### [facility] [address] [place] [address] TROPI Collected: 02/08/2018 Status: F Source: [facility] 7:36 AM [facility] REPOSITORY TYPE CODE TESTS RESULT OUT OF REFERENCE UNITS RANGE LAB TROPI(LOINC 0.000-0.040 ng/mL ) High Troponin I 0.052 Result Comment: Troponin I reference ranges (06/28/14): 0.00-0.040 ng/mL Negative and non-diagnostic. >0.040 ng/mL Consistent with cardiac damage, increased clinical risk and possibility of myocardial infarction. Serial measurements, a rise & fall in test results, clinical history, appropriate symptoms and/or ECG changes may help assess possibility of UT. *Other non-acute coronary syndrome conditions such as CHF, myocarditis, pulmonary emboli, sepsis and cardiac surgery could result in myocardial damage and increased troponin levels. Performed By: #### TROPI #### [address] [address] TROPI Collected: 02/08/2018 Status: F Source: [facility] 4:32 AM [facility] REPOSITORY TYPE CODE TESTS RESULT OUT OF REFERENCE UNITS RANGE LAB TROPI(LOINC 0.000-0.040 ng/mL ) High Troponin I 0.046 Result Comment: Troponin I reference ranges (06/28/14): 0.00-0.040 ng/mL Negative and non-diagnostic. >0.040 ng/mL Consistent with cardiac damage, increased clinical risk and possibility of myocardial infarction. Serial measurements, a rise & fall in test results, clinical history, appropriate symptoms and/or ECG changes may help assess possibility of UT. *Other non-acute coronary syndrome conditions such as CHF, myocarditis, pulmonary emboli, sepsis and cardiac surgery could result in myocardial damage and increased troponin levels. Performed By: #### TROPI #### [address] [address] [address] HIP W/O CONTRAST Observed: 02/08/2018 Status: F Source: [facility] 2:03 AM [facility] REPOSITORY ORIGINAL CT HIP W/O CONTRAST RIGHT CLINICAL STATEMENT: fall, pain COMPARISON: None FINDINGS: This exam was performed according to our departmental dose- optimization program which includes automated exposure control, adjustment of the mA and/or kVp according to patient size and/or use of iterati ve reconstruction technique where applicable. Severe degenerative changes seen in the right hip with bone on bone arthropathy. Irregular subchondral sclerosis and innumerable small subchondral cysts seen. Remodeling of the femoral head and acetabul um noted. There are significant degenerative changes in the visualized right sacroiliac joint. No fracture is identified. No suspicious findings seen in the soft tissues. Fat-containing right inguinal hernia noted. Atherosclerotic calcifications seen. IMPRESSION: 1. Severe degenerative changes in the right hip with bone on bone arthropathy. There is remodeling of the femoral head and acetabulum. No fracture. If there is concern for occult fracture, follow-up MRI may be obtained. 2. Significant degenerative changes of the right sacroiliac joint Interpreted By: Brendan Arana MD Preliminary Report By: Brendan Arana MD Electronically Signed By: Brendan Arana MD Dictated Date: 02/08/2018 2:27:08 AM Prelim Date: 02/08/2018 2:27:08 AM Sign Date: 02/08/2018 2:30:48 AM CBC Collected: 02/08/2018 Status: F Source: [facility] 12:34 AM [facility] REPOSITORY TYPE CODE TESTS RESULT OUT OF REFERENCE UNITS RANGE LAB WBC(LOINC) 4.50-10.80 10 3/mcL High WBC 11.20 LAB RBCCT(LOINC 4.50-6.00 10 6/mcL ) Low RBC 4.44 LAB HGB(LOINC) 13.0-17.5 G/dL Low Hgb 12.3 LAB HCT(LOINC) 40.0-52.0 % Low Hct 36.5 LAB MCV(LOINC) 81.0-100.0 fL MCV 82.1 LAB MCH(LOINC) 27.0-33.0 pg MCH 27.7 LAB MCHC(LOINC) 32.0-36.0 G/dL MCHC 33.8 LAB RDW(LOINC) 11.5-15.5 % High RDW 16.0 LAB PLT(LOINC) 150-450 10 3/mcL Platelet 153 LAB MPV(LOINC) 6.4-10.5 fL MPV 8.6 Performed By: #### CBC, ADIFF, ANEU, BMP, GFR, TROPI, PBNP #### [place] [address] .AUTO DIFF Collected: 02/08/2018 Status: F Source: [facility] 12:34 AM [facility] REPOSITORY TYPE CODE TESTS RESULT OUT OF REFERENCE UNITS RANGE LAB MOLLY(LOINC) 50.0-75.0 % Neutrophil % 69.0 LAB LYM(LOINC) 20.0-40.0 % Low Lymphocyte % 17.6 LAB MON(LOINC) 2.0-13.0 % Monocyte % 10.1 LAB EO(LOINC) 0.0-6.0 % Eosinophil % 2.6 LAB BAS(LOINC) 0.0-2.5 % Basophil % 0.7 LAB ABLYM(LOIN 0.90-4.32 10 3/mcL C) Lymphocyte, 2.00 Absolute LAB FRANK(LOINC 0.09-1.40 10 3/mcL ) Monocyte, 1.10 Absolute LAB AEOS(LOINC 0.00-0.65 10 3/mcL ) Eosinophil, 0.30 Absolute LAB ABAS(LOINC 0.00-0.27 10 3/mcL ) Basophil, 0.10 Absolute Performed By: #### CBC, ADIFF, ANEU, BMP, GFR, TROPI, PBNP #### [address] [address] .NEUABS Collected: 02/08/2018 Status: F Source: [facility] 12:34 AM [facility] REPOSITORY TYPE CODE TESTS RESULT OUT OF REFERENCE UNITS RANGE LAB ANEU(LOINC) 2.25-8.10 10 3/mcL Neutrophil, 7.70 Absolute Performed By: #### CBC, ADIFF, ANEU, BMP, GFR, TROPI, PBNP #### [place] [address] BMP Collected: 02/08/2018 Status: F Source: [facility] 12:34 AM [facility] REPOSITORY TYPE CODE TESTS RESULT OUT OF REFERENCE UNITS RANGE LAB GLU(LOINC) 82-115 mg/dL Glucose High Level 366 LAB NA(LOINC) 136-145 mEq/L Low Sodium Level 134 LAB K(LOINC) 3.5-5.0 mEq/L Potassium Level 4.4 LAB CL(LOINC) 98-110 mEq/L Low Chloride 97 LAB CO2(LOINC) 22-32 mEq/L CO2 30 LAB EBAL(LOINC 4.0-15.0 mEq/L ) Electrolyte Balance 7.0 LAB BUN(LOINC) 8.0-22.0 mg/dL BUN High 26.0 LAB CRE(LOINC) 0.60-1.40 mg/dL Creatinine Lvl (s) 1.16 LAB BC(LOINC) 10.0-22.0 ratio High BUN/Creatinine 22.4 Ratio LAB CA(LOINC) 8.4-10.1 mg/dL Calcium Lvl 8.6 Performed By: #### CBC, ADIFF, ANEU, BMP, GFR, TROPI, PBNP #### [facility] [address] [place] [address] .GFR Collected: 02/08/2018 Status: F Source: [facility] 12:34 AM [facility] REPOSITORY TYPE CODE TESTS RESULT OUT OF REFERENCE UNITS RANGE LAB GFRAA(LOINC ml/min/1.73 ) sqm GFR >60 [place] Result Comment: GFR Population mean for , Non- Americans Ages 20-29 = 116 mL/min/1.73 sq.m. Ages 30-39 = 107 mL/min/1.73 sq.m. Ages 40-49 = 99 mL/min/1.73 sq.m. Ages 50-59 = 93 mL/min/1.73 sq.m. Ages 60-69 = 85 mL/min/1.73 sq.m. Ages 70+ = 75 mL/min/1.73 sq.m. Chronic Kidney Disease: Less than 60 mL/min/1.73 square meters End Stage Renal Disease: Less than 15 mL/min/1.73 square meters LAB GFRNO(LOINC) ml/min/1.73sqm GFR Non- >60 Result Comment: GFR Population mean for , Non- Americans Ages 20-29 = 116 mL/min/1.73 sq.m. Ages 30-39 = 107 mL/min/1.73 sq.m. Ages 40-49 = 99 mL/min/1.73 sq.m. Ages 50-59 = 93 mL/min/1.73 sq.m. Ages 60-69 = 85 mL/min/1.73 sq.m. Ages 70+ = 75 mL/min/1.73 sq.m. Chronic Kidney Disease: Less than 60 mL/min/1.73 square meters End Stage Renal Disease: Less than 15 mL/min/1.73 square meters Performed By: #### CBC, ADIFF, ANEU, BMP, GFR, TROPI, PBNP #### [place] [id number] TROPI Collected: 02/08/2018 Status: F Source: [facility] 12:34 AM [facility] REPOSITORY TYPE CODE TESTS RESULT OUT OF REFERENCE UNITS RANGE LAB TROPI(LOINC 0.000-0.040 ng/mL ) Troponin I 0.038 Result Comment: Troponin I reference ranges (06/28/14): 0.00-0.040 ng/mL Negative and non-diagnostic. >0.040 ng/mL Consistent with cardiac damage, increased clinical risk and possibility of myocardial infarction. Serial measurements, a rise & fall in test results, clinical history, appropriate symptoms and/or ECG changes may help assess possibility of UT. *Other non-acute coronary syndrome conditions such as CHF, myocarditis, pulmonary emboli, sepsis and cardiac surgery could result in myocardial damage and increased troponin levels. Performed By: #### CBC, ADIFF, ANEU, BMP, GFR, TROPI, PBNP #### [place] [id number] PBNP Collected: 02/08/2018 Status: F Source: [facility] 12:34 AM [facility] REPOSITORY TYPE CODE TESTS RESULT OUT OF REFERENCE UNITS RANGE LAB PBNP(LOINC) 0-900 pg/mL High N-Terminal 2368 proBNP Result Comment: NT-proBNP results of less than 300 pg/mL effectively rules out acute congestive heart failure with 99% negative predictive value. Performed By: #### CBC, ADIFF, ANEU, BMP, GFR, TROPI, PBNP #### [place] [id number] UA Collected: 02/08/2018 Status: F Source: [facility] 12:34 AM [facility] REPOSITORY TYPE CODE TESTS RESULT OUT OF RANGE REFERENCE UNITS LAB SPCUA(LUDMILA NC) UA Specimen Type Clean Catch LAB CLRUA(LUDMILA NC) UA Color Straw LAB APPUA(LUDMILA NC) UA Appear Clear LAB SGUA(LOIN C) UA Spec Grav 1.015 LAB GLUA(LOIN Negative mg/dL C) UA Glucose Unknown >=1000 LAB BILUA(LUDMILA Neg-Trace NC) UA Bili Negative LAB KETUA(LUDMILA Neg-Trace mg/dL NC) UA Ketones Negative LAB BLDUA(LUDMILA Neg-Trace NC) UA Blood Negative LAB PHUA(LOIN 5.0 - 8.0 C) UA pH 5.5 LAB PROUA(LUDMILA Negative mg/dL NC) UA Protein Unknown 100 LAB UROUA(LUDMILA E.U./dL NC) UA Urobilinogen 0.2 LAB NITUA(LUDMILA Negative NC) UA Nitrite Negative LAB LEUUA(LUDMILA Negative NC) UA Leuk Est Negative Performed By: #### UA, UAMIC #### [address] [address] UAMIC Collected: 02/08/2018 Status: F Source: [facility] 12:34 AM [facility] REPOSITORY TYPE CODE TESTS RESULT OUT OF REFERENCE UNITS RANGE LAB RBCUA(LOIN 0-2 /hpf C) UA RBC Negative LAB WBCUA(LOIN 0-5 /hpf C) UA WBC Rare LAB EPIUA(LOIN 0-20 /hpf C) UA Squam Epithelial Rare Performed By: #### UA, UAMIC #### [place] [address] CT HEAD OR BRAIN W/O Observed: 02/08/2018 Status: F Source: [facility] CONTRAST 12:08 AM [facility] REPOSITORY ORIGINAL CT HEAD OR BRAIN W/O CONTRAST CLINICAL STATEMENT: syncopal episode COMPARISON: 09/24/2017 FINDINGS: This exam was performed according to our departmental dose- optimization program which includes automated exposure control, adjustment of the mA and/or kVp according to patient size and/or use of iterati ve reconstruction technique where applicable. The ventricles are normal in caliber. Mild white matter disease identified. There is no hemorrhage or mass effect. Dural calcifications seen. No extra-axial fluid collection identified. Mastoids are aerated. Hyperostosis frontalis noted. No suspicious osseous lesion identified. Orbits are grossly intact. Vascular calcifications noted. IMPRESSION: 1. No hemorrhage or territorial infarct. 2. Mild microvascular angiopathy Interpreted By: Brendan Arana MD Preliminary Report By: Brendan Arana MD Electronically Signed By: Brendan Arana MD Dictated Date: 02/08/2018 12:35:18 AM Prelim Date: 02/08/2018 12:35:18 AM Sign Date: 02/08/2018 12:37:09 AM XR CHEST 2 VIEWS Observed: 02/07/2018 Status: F Source: [facility] 11:41 PM [facility] REPOSITORY ORIGINAL XR CHEST 2 VIEWS CLINICAL STATEMENT: pain. COMPARISON: 09/26/2017 FINDINGS: Enlargement of cardiac silhouette with a pacer device noted. Sternotomy wires are intact. Central vascular catheter projects to the right atrial level. Lordotic positioning noted. Mild patchy atelectasis or other airspace disease seen in the retrocardiac region on the lateral view.. No pneumothorax. Coronary artery stent grafts seen. IMPRESSION: Retrocardiac atelectasis or other airspace disease seen on the lateral view Interpreted By: Brendan Arana MD Preliminary Report By: Brendan Arana MD Electronically Signed By: Brendan Arana MD Dictated Date: 02/08/2018 12:10:46 AM Prelim Date: 02/08/2018 12:10:46 AM Sign Date: 02/08/2018 12:12:00 AM XR HIP RIGHT W/PELVIS Observed: 02/07/2018 Status: F Source: [facility] 4 VIEWS 11:41 PM [facility] REPOSITORY ORIGINAL XR HIP RIGHT W/PELVIS 4 VIEWS CLINICAL STATEMENT: pain COMPARISON: 09/29/2017 FINDINGS: 2 views pelvis: The iliopectineal and ilioischial lines are intact. Multifocal Enthesopathy seen. Advanced degenerative change of the right hip and there is moderate degenerative change in the left hip. 2 views right hip: Flattened contour of the superior articular surface of the femoral head noted. There is adaptive remodeling of the acetabulum. Severe jcry-hv-eyyw arthrosis noted. There is no fracture identified. Atherosclerotic vascular calcifications noted. IMPRESSION: 1. Severe degenerative changes in the right hip with flattened articular surface. Background of avascular necrosis is a consideration 2. Moderate degenerative changes in the left hip. 3. No acute fracture Interpreted By: Brendan Arana MD Preliminary Report By: Brendan Arana MD Electronically Signed By: Brendan Arana MD Dictated Date: 02/08/2018 12:32:17 AM Prelim Date: 02/08/2018 12:32:17 AM Sign Date: 02/08/2018 12:35:14 AM XR KNEE 1 OR 2 Observed: 02/07/2018 Status: F Source: [facility] VIEWS RIGHT 11:41 PM [facility] REPOSITORY ORIGINAL XR KNEE 1 OR 2 VIEWS RIGHT CLINICAL STATEMENT: pain COMPARISON: None FINDINGS: The alignment is anatomic. Patellofemoral spurring seen. Surgical clips identified in the medial soft tissues. There is no fracture. IMPRESSION: No acute fracture Interpreted By: Brendan Arana MD Preliminary Report By: Brendan Arana MD Electronically Signed By: Brendan Arana MD Dictated Date: 02/08/2018 12:31:38 AM Prelim Date: 02/08/2018 12:31:38 AM Sign Date: 02/08/2018 12:32:15 AM XR SHOULDER MINIMUM 2 Observed: 02/07/2018 Status: F Source: [facility] VIEWS RIGHT 11:41 PM [facility] REPOSITORY ORIGINAL XR SHOULDER MINIMUM 2 VIEWS RIGHT CLINICAL STATEMENT: pain COMPARISON: 12/19/2014 FINDINGS: 3 view evaluation of the right shoulder obtained. There is advanced glenohumeral joint arthrosis. Flattened contour of the humeral head is likely on a chronic basis. There is degenerative schneider ge of the right acromioclavicular joint. Scapula appears grossly intact. Visualized right ribs are normal. There is a right subclavian Mediport. IMPRESSION: 1. Advanced glenohumeral joint arthrosis with chronic appearing deformity of the humeral head. If there is concern for a superimposed acute fracture, further evaluation with CT is suggested. 2. Acromioclavicular joint arthrosis Interpreted By: Brendan Arana MD Preliminary Report By: Brendan Arana MD Electronically Signed By: Brendan Arana MD Dictated Date: 02/08/2018 12:25:10 AM Prelim Date: 02/08/2018 12:25:10 AM Sign Date: 02/08/2018 12:31:35 AM K Collected: 02/04/2018 Status: F Source: [facility] 3:24 PM [facility] REPOSITORY TYPE CODE TESTS RESULT OUT OF REFERENCE UNITS RANGE LAB K(LOINC) 3.5-5.0 mEq/L Potassium Level 4.6 Performed By: #### K #### [place] [address] K Collected: 01/28/2018 Status: F Source: [facility] 3:13 PM [facility] REPOSITORY TYPE CODE TESTS RESULT OUT OF REFERENCE UNITS RANGE LAB K(LOINC) 3.5-5.0 mEq/L High Potassium Level 5.4 Performed By: #### K #### [address] [address] K Collected: 01/03/2018 Status: F Source: [facility] 11:50 AM [facility] REPOSITORY TYPE CODE TESTS RESULT OUT OF REFERENCE UNITS RANGE LAB K(LOINC) 3.5-5.0 mEq/L Potassium Level 4.9 Performed By: #### K #### [address] [address] BMP Collected: 12/31/2017 Status: F Source: [facility] 1:57 PM [facility] REPOSITORY TYPE CODE TESTS RESULT OUT OF RANGE REFERENCE UNITS LAB GLU(LOINC) 82-115 mg/dL Glucose Abnormal Level 428 Alert LAB NA(LOINC) 136-145 mEq/L Sodium Level 136 LAB K(LOINC) 3.5-5.0 mEq/L High Potassium Level 5.3 LAB CL(LOINC) 98-110 mEq/L Chloride 99 LAB CO2(LOINC) 22-32 mEq/L CO2 23 LAB EBAL(LOINC 4.0-15.0 mEq/L ) Electrolyte Balance 14.0 LAB BUN(LOINC) 8.0-22.0 mg/dL BUN 21.0 LAB CRE(LOINC) 0.60-1.40 mg/dL Creatinine Lvl (s) 1.02 LAB BC(LOINC) 10.0-22.0 ratio BUN/Creatinine 20.6 Ratio LAB CA(LOINC) 8.4-10.1 mg/dL Calcium Lvl 8.7 Performed By: #### BMP, GFR #### [address] [address] .GFR Collected: 12/31/2017 Status: F Source: [facility] 1:57 PM [facility] REPOSITORY TYPE CODE TESTS RESULT OUT OF REFERENCE UNITS RANGE LAB GFRAA(LOINC ml/min/1.73 ) sqm GFR >60 [place] Result Comment: GFR Population mean for , Non- Americans Ages 20-29 = 116 mL/min/1.73 sq.m. Ages 30-39 = 107 mL/min/1.73 sq.m. Ages 40-49 = 99 mL/min/1.73 sq.m. Ages 50-59 = 93 mL/min/1.73 sq.m. Ages 60-69 = 85 mL/min/1.73 sq.m. Ages 70+ = 75 mL/min/1.73 sq.m. Chronic Kidney Disease: Less than 60 mL/min/1.73 square meters End Stage Renal Disease: Less than 15 mL/min/1.73 square meters LAB GFRNO(LOINC) ml/min/1.73sqm GFR Non- >60 Result Comment: GFR Population mean for , Non- Americans Ages 20-29 = 116 mL/min/1.73 sq.m. Ages 30-39 = 107 mL/min/1.73 sq.m. Ages 40-49 = 99 mL/min/1.73 sq.m. Ages 50-59 = 93 mL/min/1.73 sq.m. Ages 60-69 = 85 mL/min/1.73 sq.m. Ages 70+ = 75 mL/min/1.73 sq.m. Chronic Kidney Disease: Less than 60 mL/min/1.73 square meters End Stage Renal Disease: Less than 15 mL/min/1.73 square meters Performed By: #### BMP, GFR #### [place] [address] CT THORAX W/O Observed: 12/10/2017 Status: F Source: [facility] CONTRAST 2:45 PM [facility] REPOSITORY ORIGINAL CT THORAX W/O CONTRAST CLINICAL STATEMENT: LUNG NODULE COMPARISON: 08/18/2017 FINDINGS:Today's exam was performed as a noncontrast enhanced CT of the chest. There is a right port and left tunneled pacer battery pack noted. The cervical soft tissues are unchanged from prior films. There are poststernotomy changes noted. The cardiac contours have decreased slightly in prominence when compared to prior films. No pericardial effusion is noted. There has been resolution of previous bilateral pleural effusions. There is a mild prominence to the distal esophageal wall without hiatal hernia. No mediastinal adenopathy is noted. There is limited evaluation of the hilar contours due to the absence of IV contrast material. No axillary adenopathy is noted. Partial inclusion of the upper abdominal contents is noncontributory. Images reviewed at lung windows demonstrate marked improvement in aeration with resolution of groundglass opacities. No discrete suspicious infiltrate or consolidation is noted. The nodular opacity pres ent along the anterior aspect of the right major fissure is markedly reduced on today's examination best appreciated on image 34 measuring just 5 mm in size. No new suspicious nodular density has developed. There are healed rib fractures present. IMPRESSION:Significant decrease in size of right nodular density along the fissure. This likely represented loculated fluid with minimal residual thickening. No new pathology is identified. This exam was performed according to our departmental dose optimization program, and includes the following measures where applicable: automated exposure control, adjustment of the mAs and/or kVp accord ing to patient size and/or exam, and an iterative reconstruction algorithm. Interpreted By: Alesha Nicole MD Preliminary Report By: Alesha Nicole MD Electronically Signed By: Alesha Nicole MD Dictated Date: 12/11/2017 9:56:39 AM Prelim Date: 12/11/2017 9:56:39 AM Sign Date: 12/11/2017 10:03:17 AM PROGRESS Observed: 12/04/2017 Status: COMPLETED Source: [facility] 11:17 AM [facility] REPOSITORY HNO ID: [id number] Author: Josué Fernandez (Rn) Service: (none) Author Type: Registered Nurse Type: Progress Notes Filed: 12/04/2017 11:40 AM Note Text: PRIMARY CARE COORDINATION QUICK NOTE Provider Action/OLESYAI Carlos w/ [facility] JESSICA discussed Health Maintenance and Chronic care. Pt has not been an active participant in his health care, and has not been engaged. No Care Coordination services indicated at this time. Patient identified by name and date . Jim Moses RN December 04, 2017 11:18 AM CNPTOSERENE Observed: 12/04/2017 Status: COMPLETED Source: [facility] 12:00 AM [facility] REPOSITORY Patient Outreach (FAMPWS) JADA COLUNGA ([id number]) 1955 M Date Time Provider Department 12/04/17 JOSUÉ FERNANDEZ (RN) FAMPWS During your visit today, we recorded the following information about you: Jim Moses RN 12/04/2017 11:40 AM Signed PRIMARY CARE COORDINATION QUICK NOTE Provider Action/FYI Carlos w/ [facility] discussed Health Maintenance and Chronic care. Pt has not been an active participant in his health care, and has not been engaged. No Care Coordination services indicated at this time. Patient identified by name and date . Jim Moses RN December 04, 2017 11:18 AM Allergies As of Date: 12/04/2017 Noted Allergy Reaction REGLAN (METOCLOPRAMIDE HCL) 04/24/2011 14 - Other: See Comments Comments: Anxiety, hypertension [id number] REDUCTASE INHIBIT*04/24/2011 10 - Anaphylaxis Comments: Rhabdomyolysis. 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] Cmt: [facility] Maintenance Reason For Visit History Recorded Prescriptions as of 12/04/2017 Sig: INSULIN GLARGINE 100 UNIT/ML * Inject 30 Units subcutaneousl* TIZANIDINE 4 MG TABLET TAKE 1 TABLET BY MOUTH EVERY * INSULIN ASPART 100 UNIT/ML DINERO* Inject 35 Units subcutaneousl* SERTRALINE 100 MG TABLET Take 1 tablet by mouth once d* INSULIN GLARGINE 100 UNIT/ML * Inject 30 Units subcutaneousl* HYDROXYZINE HCL 25 MG TABLET Take 1 tablet by mouth every * CLOPIDOGREL 75 MG TABLET Take 1 tablet by mouth once d* GABAPENTIN 400 MG CAPSULE Take 1 capsule by mouth three* CARVEDILOL 6.25 MG TABLET Take 1 tablet by mouth twice * COMPOUNDED PRESCRIPTION Pulse oximeter for in home us* COMPOUNDED PRESCRIPTION Portable ramp for access into* AMOXICILLIN 875 MG-POTASSIUM * Take 1 tablet by mouth twice * OXYCODONE 5 MG CAPSULE Take 5 mg by mouth every 6 ho* SPIRONOLACTONE 25 MG TABLET Take 12.5 mg by mouth once da* PROMETHAZINE 25 MG TAB (PHENE* Take 12.5 mg by mouth every 6* ALLERGY RELIEF (CETIRIZINE) O* Take by mouth as needed. DOCUSATE SODIUM 100 MG CAPSULE Take 100 mg by mouth twice da* GLUCOSAMINE-CHONDROITIN COMPL* Take by mouth once daily. FENTANYL 12 MCG/HR TRANSDERMA* Apply 1 Patch as directed kimberley* MICONAZOLE NITRATE 2 % TOPICA* Apply to affected area as ne* MELATONIN 3 MG TABLET Take by mouth daily at bedti* NITROGLYCERIN 0.4 MG SUBLINGU* Dissolve 1 tablet under the t* PEN NEEDLE, DIABETIC 32 GAUGE* Use one needle for each injec* CPAP Initiate CPAP @ 14 cm of wate* LISINOPRIL 2.5 MG TABLET Take 1 tablet by mouth once d* TRAMADOL 50 MG TABLET Take 1 tablet by mouth every * ASPIRIN 325 MG TABLET,DELAYED* Take 1 tablet by mouth once d* LACTOBACILLUS ACIDOPHILUS CAP* Take 1 capsule by mouth twice* BLOOD-GLUCOSE METER Accu-chek meter. Use 4 times* BLOOD SUGAR DIAGNOSTIC STRIPS Accu-chek. Test 4 times daily* BLOOD SUGAR DIAGNOSTIC STRIPS 4 daily Problem List As Of Date 12/04/2017 Noted Resolved DIZZINESS AND GIDDINESS [R42] INVALID FOR* CERVICALGIA [M54.2] INVALID FOR* Uncontrolled type 2 diabetes mellitus with diab*INVALID FOR* Priority: D More... Morbid obesity [E66.01] INVALID FOR* Priority: F More... RECTAL AND ANAL HEMORRHAGE [K62.5] INVALID FOR* Essential hypertension, benign [I10] INVALID FOR* Priority: E More... Other and unspecified hyperlipidemia [E78.5] INVALID FOR* Priority: H More... OSTEOARTHROS hip [M19.90] INVALID FOR* GERD (gastroesophageal reflux disease) [K21.9] More... Bilat ing hernia [K40.20] INVALID FOR* BPH (benign prostatic hyperplasia) [N40.0] INVALID FOR* Coronary artery disease [I25.10] INVALID FOR* Priority: C More... S/P CABG (status post coronary artery bypass gr*INVALID FOR* Status post angioplasty with stent INVALID FOR* More... Fibromyalgia [M79.7] INVALID FOR* Priority: F More... Hx of transient ischemic attack (TIA) [Z86.73] INVALID FOR* Carotid stenosis [I65.29] INVALID FOR* Exhausted vascular access [Z45.2] INVALID FOR* Chest pain [R07.9] INVALID FOR*01/23/2014 Priority: B More... CAD (coronary artery disease) [I25.10] INVALID FOR* Essential hypertension [I10] INVALID FOR* Diabetes mellitus [E11.9] INVALID FOR* Mixed hyperlipidemia [E78.2] INVALID FOR* SUMMARY [V999.95] INVALID FOR* Priority: A More... Hyponatremia [E87.1] INVALID FOR* More... Abdominal pain, unspecified site [R10.9] INVALID FOR* Chronic low back pain with right-sided sciatica*INVALID FOR* Priority: B Hiccups [R06.6] INVALID FOR*01/24/2014 Priority: B More... Constipation [K59.00] INVALID FOR*01/24/2014 Priority: E More... Osteomyelitis of lumbar spine [M86.9] INVALID FOR*10/02/2015 Priority: B More... Coagulase-negative staphylococcal infection [B9*INVALID FOR*10/02/2015 Inguinal neuralgia of left side INVALID FOR* TIA (transient ischemic attack) [G45.9] INVALID FOR* Carotid artery stenosis [I65.29] INVALID FOR* Impingement syndrome of right shoulder [M75.41] INVALID FOR* Chronic anxiety [F41.9] INVALID FOR* Encounter Status:Closed by JIM MOSES on 12/04/17 ARACELI Observed: 12/04/2017 Status: COMPLETED Source: COUNSELOR 12:00 AM [facility] REPOSITORY Patient Outreach (FAMPWS) JADA COLUNGA ([id number]) 1955 M Date Time Provider Department 12/04/17 ELIN OCAMPO) MATTIPWS During your visit today, we recorded the following information about you: Allergies As of Date: 12/04/2017 Noted Allergy Reaction REGLAN (METOCLOPRAMIDE HCL) 04/24/2011 14 - Other: See Comments Comments: Anxiety, hypertension [id number] REDUCTASE INHIBIT*04/24/2011 10 - Anaphylaxis Comments: Rhabdomyolysis. 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 Reason for Visit: PHMA/Care Gap Outreach [3605] Prescriptions as of 12/04/2017 Sig: INSULIN GLARGINE 100 UNIT/ML * Inject 30 Units subcutaneousl* TIZANIDINE 4 MG TABLET TAKE 1 TABLET BY MOUTH EVERY * INSULIN ASPART 100 UNIT/ML DINERO* Inject 35 Units subcutaneousl* SERTRALINE 100 MG TABLET Take 1 tablet by mouth once d* INSULIN GLARGINE 100 UNIT/ML * Inject 30 Units subcutaneousl* HYDROXYZINE HCL 25 MG TABLET Take 1 tablet by mouth every * CLOPIDOGREL 75 MG TABLET Take 1 tablet by mouth once d* GABAPENTIN 400 MG CAPSULE Take 1 capsule by mouth three* CARVEDILOL 6.25 MG TABLET Take 1 tablet by mouth twice * COMPOUNDED PRESCRIPTION Pulse oximeter for in home us* COMPOUNDED PRESCRIPTION Portable ramp for access into* AMOXICILLIN 875 MG-POTASSIUM * Take 1 tablet by mouth twice * OXYCODONE 5 MG CAPSULE Take 5 mg by mouth every 6 ho* SPIRONOLACTONE 25 MG TABLET Take 12.5 mg by mouth once da* PROMETHAZINE 25 MG TAB (PHENE* Take 12.5 mg by mouth every 6* ALLERGY RELIEF (CETIRIZINE) O* Take by mouth as needed. DOCUSATE SODIUM 100 MG CAPSULE Take 100 mg by mouth twice da* GLUCOSAMINE-CHONDROITIN COMPL* Take by mouth once daily. FENTANYL 12 MCG/HR TRANSDERMA* Apply 1 Patch as directed kimberley* MICONAZOLE NITRATE 2 % TOPICA* Apply to affected area as ne* MELATONIN 3 MG TABLET Take by mouth daily at bedti* NITROGLYCERIN 0.4 MG SUBLINGU* Dissolve 1 tablet under the t* PEN NEEDLE, DIABETIC 32 GAUGE* Use one needle for each injec* CPAP Initiate CPAP @ 14 cm of wate* LISINOPRIL 2.5 MG TABLET Take 1 tablet by mouth once d* TRAMADOL 50 MG TABLET Take 1 tablet by mouth every * ASPIRIN 325 MG TABLET,DELAYED* Take 1 tablet by mouth once d* LACTOBACILLUS ACIDOPHILUS CAP* Take 1 capsule by mouth twice* BLOOD-GLUCOSE METER Accu-chek meter. Use 4 times* BLOOD SUGAR DIAGNOSTIC STRIPS Accu-chek. Test 4 times daily* BLOOD SUGAR DIAGNOSTIC STRIPS 4 daily Problem List As Of Date 12/04/2017 Noted Resolved DIZZINESS AND GIDDINESS [R42] INVALID FOR* CERVICALGIA [M54.2] INVALID FOR* Uncontrolled type 2 diabetes mellitus with diab*INVALID FOR* Priority: D More... Morbid obesity [E66.01] INVALID FOR* Priority: F More... RECTAL AND ANAL HEMORRHAGE [K62.5] INVALID FOR* Essential hypertension, benign [I10] INVALID FOR* Priority: E More... Other and unspecified hyperlipidemia [E78.5] INVALID FOR* Priority: H More... OSTEOARTHROS hip [M19.90] INVALID FOR* GERD (gastroesophageal reflux disease) [K21.9] More... Bilat ing hernia [K40.20] INVALID FOR* BPH (benign prostatic hyperplasia) [N40.0] INVALID FOR* Coronary artery disease [I25.10] INVALID FOR* Priority: C More... S/P CABG (status post coronary artery bypass gr*INVALID FOR* Status post angioplasty with stent INVALID FOR* More... Fibromyalgia [M79.7] INVALID FOR* Priority: F More... Hx of transient ischemic attack (TIA) [Z86.73] INVALID FOR* Carotid stenosis [I65.29] INVALID FOR* Exhausted vascular access [Z45.2] INVALID FOR* Chest pain [R07.9] INVALID FOR*01/23/2014 Priority: B More... CAD (coronary artery disease) [I25.10] INVALID FOR* Essential hypertension [I10] INVALID FOR* Diabetes mellitus [E11.9] INVALID FOR* Mixed hyperlipidemia [E78.2] INVALID FOR* SUMMARY [V999.95] INVALID FOR* Priority: A More... Hyponatremia [E87.1] INVALID FOR* More... Abdominal pain, unspecified site [R10.9] INVALID FOR* Chronic low back pain with right-sided sciatica*INVALID FOR* Priority: B Hiccups [R06.6] INVALID FOR*01/24/2014 Priority: B More... Constipation [K59.00] INVALID FOR*01/24/2014 Priority: E More... Osteomyelitis of lumbar spine [M86.9] INVALID FOR*10/02/2015 Priority: B More... Coagulase-negative staphylococcal infection [B9*INVALID FOR*10/02/2015 Inguinal neuralgia of left side INVALID FOR* TIA (transient ischemic attack) [G45.9] INVALID FOR* Carotid artery stenosis [I65.29] INVALID FOR* Impingement syndrome of right shoulder [M75.41] INVALID FOR* Chronic anxiety [F41.9] INVALID FOR* Letter Text Mer Mccormick MD [address] [facility] [address] [phone] Elin Ocampo MA, Population [employer] December 04, 2017 Jada Cristine [address] [facility] [address] Dear Mr. Colunga In an effort to serve your healthcare needs, it has come to the attention of Mer Mccormick MD, your Primary Care Provider, that you are overdue for routine health care. We've attempted to contact you and have been unsuccessful. Please call the office at [phone] to schedule an appointment for Follow Up. In addition, you are due for the following health maintenance.c Health Maintenance Due: DILATED RETINAL EXAM due on 11/21/2011 COLORECTAL CANCER SCREENING,SEE MODIFIER due on 07/11/2015 DIABETIC FOOT EXAM due on 08/18/2016 HBA1C due on 01/16/2017 URINE ALBUMIN CREATININE RATIO due on 04/10/2017 LDL due on 04/10/2017 INFLUENZA(1) due on 06/21/2017 If you have any questions, please feel free to call the office at [phone] message us via [employer]. Thank you for choosing the [facility]. Sincerely, Elin Ocampo MA, Population [employer] M[employer] (electronically signed to expedite mailing) Encounter Status:Closed by VIELKA QUINTANAUSER on 12/08/17 ALLERGIES ALLERGIES DATE TYPE / NAME / CODE REACTION SEVERITY SOURCE CODE 11/05/2018 Drug metoclopramide goofy, anxious, Unknown Thayer Allergy/4 HCl/[id number](RXNO elevated BP Community [id number]( [facility] 11/05/2018 Drug ondansetron goofy, anxious, Unknown Sandra Allergy/4 HCl/Z480146768(RXNO elevated BP Community [id number]( ) Hospital SNOMED Repository CT) 11/05/2018 Drug Yngptsk-Rql-Nnl rhabdomyolosis Unknown Sandra Allergy/4 Reductase Community [id number]( Inhibitor/[id number] Hospital SNOMED 5(RXNORM) Repository CT) ENCOUNTERS ENCOUNTERS ADMIT/DISCHARGE ACCOUNT NUMBER ADMITTING ENCOUNTER LOCATION SOURCE CLASS 11/12/2018 [id number] Ambulatory RBuilding:Haritha Red 2 [facility] Repository 11/07/2018 [id number] SALTY KEY, Inpatient ABuilding:Kenyon Kendrick Encounter A5Room: [place] [address]Bed: A [facility] Repository 11/05/2018/ [id number] Sementi, Inpatient Thayer Sandra 019 Geraldine Encounter [facility] lding:MS3Ro Repository om: VL717Rrd: 1 11/05/2018 [id number] Sementi, Ambulatory BMSBuilding Sandra Geraldine :BMS.formerly [facility] Repository 11/05/2018 [id number] Sementi, Ambulatory BMSBuilding Thayer Geraldine :BMS.formerly [facility] Repository 11/05/2018 [id number] Sementi, Ambulatory BMSBuilding Sandra Geraldine :BMS.formerly [facility] Repository 11/04/2018 [id number] Ambulatory [facility] lding:[facility] Repository 10/29/2018 [id number] [facility] Rep[facility] TP 10/28/2018/ [id number] Gumaro Kemp Inpatient Thayer Thayer 019 Encounter [facility] lding:PCURo Repository om: VDD460Xiz: 1 2018 [id number] Gumaro Kemp Ambulatory BMSBuilding Thayer :BMS.formerly [facility] Repository 2018 [id number] Gumaro Kemp Ambulatory BMSBuilding Sandra :[facility] Repository 2018 [id number] Gumaro Kemp Ambulatory BMSBuilding Thayer :NATALIE.formerly [facility] Repository 2018 [id number] Kemp, Gumaro Ambulatory BMSBuilding Sandra :BMS.[facility] Repository 2018 [id number] Justo, Gumaro Ambulatory BMSBuilding Thayer :BMS.[facility] Repository 2018 [id number] Kemp, Gumaro Ambulatory BMSBuilding Thayer :BMS.formerly [facility] Repository 2018 [id number] Kemp, Gumaro Ambulatory BMSBuilding Thayer :BMS.formerly [facility] Repository 2018 [id number] Kemp, Gumaro Ambulatory BMSBuilding Thayer :BMS.[facility] Repository 2018 [id number] Kemp, Gumaro Ambulatory BMSBuilding Thayer :BMS.formerly [facility] Repository 2018 [id number] Kemp, Gumaro Ambulatory BMSBuilding Sandra :BMS.[facility] Repository 2018 [id number] Justo, Gumaro Ambulatory BMSBuilding Sandra :BMS.formerly [facility] Repository 2018 [id number] Justo, Gumaro Ambulatory BMSBuilding Thayer :BMS.[facility] Repository 10/28/2018/ [id number] Ambulatory BMSBuilding Thayer 019 :[facility] Repository 10/27/2018 [id number] Gumaro Kemp Ambulatory BMSBuilding Sandra :BMS.formerly [facility] Repository 10/27/2018 [id number] Justo, Gumaro Ambulatory BMSBuilding Thayer :BMS.formerly [facility] Repository 10/27/2018 [id number] Ambulatory ABuilding:Tierra Red [facility] Repository 10/27/2018 [id number] Ambulatory RBuilding:Prerna Red [facility] Repository 10/19/2018/ [id number] GEBREGIORGIS Inpatient ABuilding:Kenyon Lyon MD, LENA Encounter M0OCogc: Health 4673Bed: A [facility] Repository 10/13/2018/ [id number] Tereletsky, Inpatient Sandra Sandra 018 James [facility] lding:PCURo Repository om: [id number]: 1 10/13/2018 [id number] Tereletsky, Ambulatory BMSBuilding Thayer James :BMS.formerly [facility] Repository 10/13/2018 [id number] Tereletsky, Ambulatory BMSBuilding Sandra James :BMS.formerly [facility] Repository 10/13/2018 [id number] Tereletsky, Ambulatory BMSBuilding Thayer James :BMS.formerly [facility] Repository 10/13/2018 [id number] Tereletsky, Ambulatory BMSBuilding Thayer James :BMS.formerly [facility] Repository 10/13/2018 [id number] Tereletsky, Ambulatory BMSBuilding Sandra James :BMS.formerly [facility] Repository 10/13/2018 [id number] Tereletsky, Ambulatory BMSBuilding Sandra James :BMS.[facility] Repository 10/13/2018 [id number] Tereletsky, Ambulatory BMSBuilding Thayer James :BMS.[facility] Repository 10/13/2018 [id number] Tereletsky, Ambulatory BMSBuilding Thayer James :BMS.formerly [facility] Repository 10/13/2018 [id number] Tereletsky, Ambulatory BMSBuilding Sandra James :BMS.[facility] Repository 10/13/2018 [id number] Tereletsky, Ambulatory BMSBuilding Thayer James :BMS.formerly [facility] Repository 10/10/2018/ [id number] Ambulatory BBuilding:Lizzie Beckford [facility] Repository 10/03/2018 [id number] Ambulatory Thayer Sandra [facility] lding:[facility] Repository 09/30/2018/ [id number] Ambulatory ABuilding:Mireille Beckford [facility] Repository 09/19/2018/ [id number] Ambulatory ABuilding:Kenyon Beckford [facility] Repository 09/08/2018/ [id number] JUAN MANUEL KEY, Inpatient ABuilding:Selene THAKUR Encounter CURoom: Health 0326Bed: A [facility] Repository 08/13/2018/ [id number] Emergency ABuilding:E [facility] Repository 06/26/2018/2 [id number] SALTY KEY, Ambulatory ABuilding:C Cesilia 018 JIM Kendrick CURoom: Health 0319Bed: A [facility] Repository 05/27/2018/ [id number] [address] Inpatient ABuilding:C Cesilia 018 JERI Kendrick. Encounter CURoom: Health 0306Bed: A [facility] Repository 05/23/2018/ [id number] Ambulatory AULTMANBuil Cesilia 018 ding:LAB [facility] Repository 05/17/2018/ [id number] Ambulatory RBuilding:W Cesilia 018 [facility] Repository 04/25/2018/ [id number] RONALDO KEY, Inpatient RBuilding:T Cesilia 018 CONRADO W Encounter CUWRoom: Health 0346Bed: A [facility] Repository 04/20/2018/2 [id number] SHARYN KEY, GUY Inpatient ABuilding:M Cesilia 018 Ansley Encounter X7MHmmb: Health 4716Bed: A [facility] Repository 04/01/2018/06/03/12 [id number] MAYI KEY, Ambulatory ABuilding:C Cesilia 018 ALICIA PCRoom: Health UVJ8Duk: A [facility] Repository 04/01/2018/ [id number] Ambulatory AULTMANBuil Cesilia 018 ding:LAB [facility] Repository 02/07/2018/2 [id number] CITLALY KEY, Ambulatory ABuilding:C Cesilia 018 NOAH Anderson DOURoom: Health 2652Bed: A [facility] Repository 02/04/2018/ [id number] Ambulatory AULTMANBuil Cesilia 018 ding:[facility] Repository 01/28/2018/ [id number] Ambulatory AULTMANBuil Cesilia 018 ding:[facility] Repository 01/03/2018/ [id number] Ambulatory AULTMANBuil Cesilia 018 ding:LAB [facility] Repository 12/31/2017/ [id number] Ambulatory AULTGAVIBuil Cesilia 018 ding:[facility] Repository 12/10/2017/ [id number] BOB KEY, Ambulatory CESILIA Cesilia 018 TRINITY Guti[facility] g:[facility] Repository PAYERS PAYERS ENCOUNTER GUARANTOR PAYER SUBSCRIBER SOURCE 11/12/2018 JADA W [facility]ANDOB: Insurance:MEDICARE BRENEMANDOB: [facility] E PART A INSCOPolicy [id number] Repository [facility] APT Number: T[address] [facility] [address] [id number] [address], [place] [email or web address] Date:2018-11-12Tel: (660) Tiipz.com~[facility] [phone]-24-30Nqko [phone] Name:MMail Code AG (HP)Tel: (081) MTel: [phone] (WP) [phone] () 344217Wviqlkds, [place] [address]AF: 11/12/2018 Secondary [facility] Insurance:MEDICARE BRENEMANDOB: [facility] PART B INSCOPolicy [id number] Repository Number: Tiffanie [facility] [id number] [address] [place] [place] Date:2018-11-12Tel: [phone]) [phone] [phone] Name:PCGS ()Tel: (959) Codagjftjcxxys LLCPO [phone] (WP) [address] [address]Pxrwnrtsu, [place] [address]PR: 11/12/2018 Tertiary JADA [facility] Insurance:AULTCARE BRENEMANDOB: [facility] O1AXgedac Number: [id number] Repository [id number] E [facility] [address] Date:2018-[address], [place] 6038-04-52Weoe [address]Cvv: (330) 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 [phone] [place] [address] (HP)Tel: [phone]: ([phone] 11/07/2018 [facility] Primary [facility] BRENEMANDOB: Insurance:MEDICARE BRENEMANDOB: [facility] E PART A INSCOPolicy [id number] Repository [facility] [address] Number: T[address] [facility] [address], [place] [id number] 106[place], [place] [email or web address]@[facility] Date:2017-05-04Tel: (655) Tiipz.com~[facility] [id number]-12-32Konz [phone] Name:MMail Code AG (HP)Tel: (171) MTel: [phone]) [phone] (WP) [phone] () 888[place]Ubxc[place]hs, [place] [address]SP: 11/07/2018 Secondary [facility] Insurance:MEDICARE BRENEMANDOB: [facility] PART B INSCOPolicy [id number] Repository Number: Tiffanie [facility] [id number] [address], [place] Date:2018-11-07Tel: [phone]) 7542-52-26Batk [phone] Name:PCGS (HP)Tel: (149) Administrators LLCPO [phone] (WP) [address] [address]Qvyqcyivy, [place] [address]TQ: 11/07/2018 Tertiary [facility] Insurance:AULTCARE BRENEMANDOB: Foundation C7DZhndaa Number: [id number] Repository [id number] E [facility] [address] Date:2017-[address], [place] 5732-36-39Vtmc [address]Ttk: (330) 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 [phone] [address], [place] (HP)Tel: [phone]: (wp) [phone] 11/05/2018 JADA W Primary JADA W Thayer [id number] E Insurance:MEDICARE BRENEMANDOB: Community [address] PART A [facility] [id number] Number: Repository [address]Tgo: 330 [id number] [phone] (HP) Date:2018-11-05 11/05/2018 Secondary JADA W Thayer Insurance:AULTCAREPol BRENEMANDOB: Community icy Number: [id number] Hospital [id number] Repository Date:9676-24-39JO [address] [place] [address]IW: 11/05/2018 Tertiary NOT GIVENUNK Sandra Insurance:SELF PAY [facility] Number: Effective Repository Date:2018-11-05 11/05/2018 JADA W Primary JADA W Sandra [id number] E Insurance:MEDICARE BRENEMANDOB: [facility] STAPT PART A [facility] [id number], [place] Number: Repository [address]Ljd: 330 [id number] [phone] (HP) Date:2018-11-05 11/05/2018 Secondary JADA W Thayer Insurance:AULTCAREPol BRENEMANDOB: [facility] icy Number: [id number] Hospital [id number] Repository Date:6206-49-75QW [address] [place] [address]EC: 11/05/2018 Tertiary NOT GIVENUNK Sandra Insurance:SELF PAY [facility] Number: Effective Repository Date:2018-11-05 11/05/2018 JADA W Primary JADA W Thayer [id number] E Insurance:MEDICARE BRENEMANDOB: [facility] STAPT PART A [facility] [id number] Number: Repository [address]Ahy: 330 [id number] [phone] (HP) Date:2018-11-05 11/05/2018 Secondary JADA W Thayer Insurance:AULTCAREPol BRENEMANDOB: Community icy Number: [id number] Hospital [id number] Repository Date:9153-49-54BC [address] [place] [address]AL: 11/05/2018 Tertiary NOT GIVENUNK Thayer Insurance:SELF PAY [facility] Number: Effective Repository Date:2018-11-05 11/05/2018 JADA W Primary JADA W Sandra [id number] E Insurance:MEDICARE BRENEMANDOB: Community [address] PART A [facility] [id number] Number: Repository [id number]: [phone] [id number] [phone] (HP) Date:2018-11-05 11/05/2018 Secondary JADA W Sandra Insurance:AULTCAREPol BRENEMANDOB: Community icy Number: [id number] Hospital [id number] Repository Date:5338-52-09HC[address] [address]LK: 11/05/2018 Tertiary NOT GIVENUNK Thayer Insurance:SELF PAY [facility] Number: Effective Repository Date:2018-11-05 11/04/2018 JADA W Primary JADA W Sandra [id number] E Insurance:MEDICARE BRENEMANDOB: Community [address] PART A [facility] [id number] Number: Repository [id number]: [phone]) [id number] [phone] (HP) Date:2018-10-10 11/04/2018 Secondary JADA W Sandra Insurance:AULTCAREPol BRENEMANDOB: Community icy Number: [id number] Hospital [id number] Repository Date:9772-44-36UT [address] [place] [address]YS: 11/04/2018 Tertiary NOT GIVENUNK Sandra Insurance:SELF PAY [facility] Number: Effective Repository Date:2018-10-10 10/29/2018 JADA W Primary JADA W Thayer [id number] E Insurance:MEDICARE BRENEMANDOB: Community [address] PART A [facility] [id number] Number: Repository [address]Rto: 330 [id number] [phone] () Date:2018-10-24 10/29/2018 Secondary JADA W Sandra Insurance:AULTCAREPol BRENEMANDOB: Community icy Number: [id number] Hospital [id number] Repository Date:1618-31-67MO [address] [address]RG: 10/29/2018 Tertiary NOT GIVENUNK Thayer Insurance:SELF PAY [facility] Number: Effective Repository Date:2018-10-24 2018 JADA W Primary JADA W Sandra [id number] E Insurance:MEDICARE BRENEMANDOB: Community [address] PART A [facility] [id number] Number: Repository [address]Hgo: 330 [id number] [phone] () Date:2018-10-27 2018 Secondary JADA W Sandra Insurance:AULTCAREPol BRENEMANDOB: Community icy Number: [id number] Hospital [id number] Repository Date:2648-52-64IS [address] [place] [address]PO: 2018 Tertiary NOT GIVENUNK Sandra Insurance:SELF PAY [facility] Number: Effective Repository Date:2018-10-27 2018 JADA W Primary JADA W Sandra [id number] E Insurance:MEDICARE BRENEMANDOB: Community [address] PART A [facility] [id number] Number: Repository [address]Qtw: 330 [id number] [phone] () Date:2018-10-27 2018 Secondary JADA W Thayer Insurance:AULTCAREPol BRENEMANDOB: Community icy Number: [id number] Hospital [id number] Repository Date:5394-71-95FB [address] [place] [address]MU: 2018 Tertiary NOT GIVENUNK Thayer Insurance:SELF PAY [facility] Number: Effective Repository Date:2018 2018 JADA W Primary JADA W Sandra [id number] E Insurance:MEDICARE BRENEMANDOB: Community [address] PART A [facility] [id number] Number: Repository [id number]: 330 [id number] [phone] () Date:2018-10-27 2018 Secondary JADA W Thayer Insurance:AULTCAREPol BRENEMANDOB: Community icy Number: [id number] Hospital [id number] Repository Date:0700-62-37PY [address] [address]OF: 2018 Tertiary NOT GIVENUNK Sandra Insurance:SELF PAY [facility] Number: Effective Repository Date:2018 2018 JADA W Primary JADA W Thayer [id number] E Insurance:MEDICARE BRENEMANDOB: Community [address] PART A [facility] [id number] [place] Number: Repository [id number]: 330 [id number] [phone] () Date:2018-10-27 2018 Secondary JADA W Sandra Insurance:AULTCAREPol BRENEMANDOB: Community icy Number: [id number] Hospital [id number] Repository Date:5854-10-17DC [address], [place] [address]QF: 2018 Tertiary NOT GIVENUNK Thayer Insurance:SELF PAY [facility] Number: Effective Repository Date:2018 2018 JADA W Primary JADA W Thayer [id number] E Insurance:MEDICARE BRENEMANDOB: Community [address] PART A [facility] [id number] Number: Repository [address]Gkp: 330 [id number] [phone] (HP) Date:2018-10-27 2018 Secondary JADA W Thayer Insurance:AULTCAREPol BRENEMANDOB: Community icy Number: [id number] Hospital [id number] Repository Date:9202-87-81UL [address] [place] [address]ZL: 2018 Tertiary NOT GIVENUNK Thayer Insurance:SELF PAY [facility] Number: Effective Repository Date:2018 2018 JADA W Primary JADA W Thayer [id number] E Insurance:MEDICARE BRENEMANDOB: [facility] [id number] Number: Repository [id number]: 330 [id number] [phone] () Date:2018-10-27 2018 Secondary JADA W Sandra Insurance:AULTCAREPol BRENEMANDOB: Community icy Number: [id number] Hospital [id number] Repository Date:4211-41-92WU [address] [place] [address]VA: 2018 Tertiary NOT GIVENUNK Thayer Insurance:SELF PAY [facility] Number: Effective Repository Date:2018 2018 JADA W Primary JADA W Sandra [id number] E Insurance:MEDICARE [facility]OB: [facility] [id number] Number: Repository [address]Bpq: 330 [id number] [phone] (HP) Date:2018-10-27 2018 Secondary JADA W Thayer Insurance:AULTCAREPol BRENEMANDOB: Community icy Number: [id number] Hospital [id number] Repository Date:5482-08-03AK [address] [address]NA: 2018 Tertiary NOT GIVENUNK Sandra Insurance:SELF PAY [facility] Number: Effective Repository Date:2018 2018 JADA W Primary JADA W Thayer [id number] E Insurance:MEDICARE BRENEMANDOB: Community [address] PART A [facility] [id number] Number: Repository [address]Yhr: 330 [id number] [phone] (HP) Date:2018-10-27 2018 Secondary JADA W Thayer Insurance:AULTCAREPol BRENEMANDOB: Community icy Number: [id number] Hospital [id number] Repository Date:8856-38-59NT [address] [place] [address]QO: 2018 Tertiary NOT GIVENUNK Thayer Insurance:SELF PAY [facility] Number: Effective Repository Date:2018 2018 JADA W Primary JADA W Sandra [id number] E Insurance:MEDICARE BRENEMANDOB: Community [address] PART A [facility] [id number] Number: Repository [address]Qbj: 330 [id number] [phone] () Date:2018-10-27 2018 Secondary JADA W Thayer Insurance:AULTCAREPol BRENEMANDOB: Community icy Number: [id number] Hospital [id number] Repository Date:1208-29-96LC [address] [place] [address]OP: 2018 Tertiary NOT GIVENUNK Thayer Insurance:SELF PAY [facility] Number: Effective Repository Date:2018 2018 JADA W Primary JADA W Sandra [id number] E Insurance:MEDICARE BRENEMANDOB: Community [address] PART A [facility] [id number] Number: Repository [address]Hpw: 330 [id number] [phone] (HP) Date:2018-10-27 2018 Secondary JADA W Thayer Insurance:AULTCAREPol BRENEMANDOB: Community icy Number: [id number] Hospital [id number] Repository Date:7233-91-42AA [address] [place] [address]MU: 2018 Tertiary NOT GIVENUNK Thayer Insurance:SELF PAY [facility] Number: Effective Repository Date:2018 2018 JADA W Primary JADA W Sandra [id number] E Insurance:MEDICARE BRENEMANDOB: Community [address] PART A [facility] [id number] Number: Repository [address]Dos: (335) [id number] [phone] () Date:2018-10-27 2018 Secondary JADA W Thayer Insurance:AULTCAREPol BRENEMANDOB: Community icy Number: 3108-12-24GGJ [facility] [id number] Repository Date:3926-07-02WH [address] [place] [address]DW: 2018 Tertiary NOT GIVENUNK Sandra Insurance:SELF PAY [facility] Number: Effective Repository Date:2018 2018 JADA W Primary JADA W Thayer [id number] E Insurance:MEDICARE BRENEMANDOB: Community [address] PART A [facility] [id number] Number: Repository [address]Rhr: 330 [id number] [phone] () Date:2018-10-27 2018 Secondary JADA W Sandra Insurance:AULTCAREPol BRENEMANDOB: Community icy Number: [id number] Hospital [id number] Repository Date:8345-18-30OV [address] [place] [address]GS: 2018 Tertiary NOT GIVENUNK Thayer Insurance:SELF PAY [facility] Number: Effective Repository Date:2018 2018 JADA W Primary JADA W Sandra [id number] E Insurance:MEDICARE BRENEMANDOB: Community [address] PART A olic [id number] Number: Repository [address]Fpt: 330 [id number] [phone] () Date:2018-10-27 2018 Secondary JADA W Thayer Insurance:AULTCAREPol BRENEMANDOB: Community icy Number: [id number] Hospital [id number] Repository Date:5474-57-65[address] [address]ZW: 2018 Tertiary NOT GIVENUNK Sandra Insurance:SELF PAY [facility] Number: Effective Repository Date:2018 2018 JADA W Primary JADA W Sandra [id number] E Insurance:MEDICARE BRENEMANDOB: [facility] STAPT PART A [facility] [id number] Number: Repository [address]Daj: 330 [id number] [phone] () Date:2018-10-27 2018 Secondary JADA W Sandra Insurance:AULTCAREPol BRENEMANDOB: [facility] icy Number: [id number] Hospital [id number] Repository Date:2601-36-06JS [address] [place] [address]GF: 2018 Tertiary NOT GIVENUNK Sandra Insurance:SELF PAY [facility] Number: Effective Repository Date:2018 10/27/2018 JADA W Primary JADA W Thayer [id number] E Insurance:MEDICARE BRENEMANDOB: [facility] [address] PART A [facility] [id number] Number: Repository [address]Oio: 330 [id number] [phone] () Date:2018-10-27 10/27/2018 Secondary JADA W Thayer Insurance:AULTCAREPol BRENEMANDOB: [facility] icy Number: [id number] Hospital [id number] Repository Date:4456-18-16MD [address] [place] [address]17[address]JB: 10/27/2018 Tertiary NOT GIVENUNK Sandra Insurance:SELF PAY [facility] Number: Effective Repository Date:2018-10-27 10/27/2018 JADA W Primary JADA W Thayer [id number] E Insurance:MEDICARE [facility]OB[facility] [id number] [facility] [place] Number: Repository [address]Lfe: (157) [id number] [phone] () Date:2018-10-27 10/27/2018 Secondary JADA W Thayer Insurance:AULTCAREPol BRENEMANDOB: [facility] Number: [id number] Hospital [id number] Repository Date:5521-31-24PM [address] [place] [address]AM: 10/27/2018 Tertiary NOT GIVENUNK Sandra Insurance:SELF PAY [facility] Number: Effective Repository Date:2018-10-27 10/27/2018 JADA W Primary JADA [facility] BRENEMANDOB: Insurance:MEDICARE BRENEMANDOB: [facility] E PART B INSCOPolicy [id number] Repository [facility] [address] Number: E [facility] [address] [id number] [address] [place] [address]~[email or web address]@[facility] Date:2018-10-24Tel: (906) Tiipz.com~BRIIYBREN 2713-74-14Etzc [phone] Name:CECILIA (HP)Tel: (321) MTel: (765) Clvwqbbyxojrmw LLCBS [phone] (SX) [phone] () [address]umf, [place] [address]HB: 10/27/2018 Secondary JADA W [facility] Insurance:AULTCARE BRENEMANDOB: Foundation T4AYaclpd Number: [id number] Repository [id number] [address] Date:2018-10-24 - [address], [place] 8037-61-51Qdkn [address]Ydk: (110) 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 Number: E [facility] [id number], [id number] YXE164HCDLHTT, [place] Date:2018-10-19 - [place] [address]Jdp: [address]~VO3520@[facility] 4003-99-88Wywq Tiipz.com~SAMIR Name:MMail Code AG (HP)Tel: [phone]) [phone] (WP) MTel: (191) 088457QfbokcrrCHARLEST[place], [place] [phone] () [address]ED: 10/19/2018 Secondary JADA [facility] Health Insurance:MEDICARE BRENEMANDOB: Foundation PART B INSCOPolicy [id number] Repository Number: [facility] [id number], Date:2018-10-19 - [place] [address]Uvf: 1291-10-27Zqcp Name:PCGS ()Tel: (140) Administrators LLCPO [phone] (WP) [address]Lyynbwjet, [place] [address]WZ: 10/19/2018 Tertiary [facility] Health Insurance:AULTCARE BRENEMANDOB: [facility] S8HXfdaso Number: [id number] Repository [id number] [facility] Date:2018-10-19 - LXB619GXNGVLT, 4190-59-69Viab [place] [address]Fmw: Name:[facility] [address] [place] [address] ()Tel: [phone]: (wp) [phone] 10/13/2018 JADA W Primary JADA W Sandra [id number] E Insurance:MEDICARE BRENEMANDOB: [facility] PART A BPolicy [id number] Number: Repository [address]Xtb: 330 [id number] [phone] () Date:2018-10-13 10/13/2018 Secondary JADA W Sandra Insurance:AULTCAREPol BRENEMANDOB: [facility] icy Number: [id number] Hospital [id number] Repository Date:3658-72-92OR [address] [place] [address]DR: 10/13/2018 Tertiary NOT GIVENUNK Sandra Insurance:SELF PAY [facility] Number: Effective Repository Date:2018-10-13 10/13/2018 JADA W Primary JADA W Sandra [id number] E Insurance:MEDICARE BRENEMANDOB: Community [address] PART A [facility] [id number] Number: Repository [address]Ohc: 330 [id number] [phone] (HP) Date:2018-10-13 10/13/2018 Secondary JADA W Thayer Insurance:AULTCAREPol BRENEMANDOB: Community icy Number: [id number] Hospital [id number] Repository Date:5562-51-32AY [facility] [address] [place] [address]XN: 10/13/2018 Tertiary NOT GIVENUNK Sandra Insurance:SELF PAY [facility] Number: Effective Repository Date:2018-10-13 10/13/2018 JADA W Primary JADA W Sandra [id number] E Insurance:MEDICARE BRENEMANDOB: Community [address] PART A [facility] [id number] Number: Repository [address]Xzb: 330 [id number] [phone] (HP) Date:2018-10-13 10/13/2018 Secondary JADA W Thayer Insurance:AULTCAREPol BRENEMANDOB: Community icy Number: [id number] Hospital [id number] Repository Date:8667-12-30KJ [address] [place] [address]NX: 10/13/2018 Tertiary NOT GIVENUNK Sandra Insurance:SELF PAY [facility] Number: Effective Repository Date:2018-10-13 10/13/2018 JADA W Primary JADA W Thayer [id number] E Insurance:MEDICARE BRENEMANDOB: Community [address] PART A [facility] [id number] Number: Repository [address]Pae: 330 [id number] [phone] (HP) Date:2018-10-13 10/13/2018 Secondary AJDA W Thayer Insurance:AULTCAREPol BRENEMANDOB: Community icy Number: [id number] Hospital [id number] Repository Date:6593-33-83VO [facility] [address] [place] [address]IU: 10/13/2018 Tertiary NOT GIVENUNK Thayer Insurance:SELF PAY [facility] Number: Effective Repository Date:2018-10-13 10/13/2018 JADA W Primary JADA W Sandra [id number] E Insurance:MEDICARE BRENEMANDOB: Community [address] PART A [facility] [id number] Number: Repository [address]Pss: (475) [id number] [phone] (HP) Date:2018-10-13 10/13/2018 Secondary JADA W Sandra Insurance:AULTCAREPol BRENEMANDOB: Community icy Number: [id number] Hospital [id number] Repository Date:9157-38-58FM [address] [address]VW: 10/13/2018 Tertiary NOT GIVENUNK Thayer Insurance:SELF PAY [facility] Number: Effective Repository Date:2018-10-13 10/13/2018 JADA W Primary JADA W Thayer [id number] E Insurance:MEDICARE BRENEMANDOB: Community [address] PART A [facility] [id number] Number: Repository [address]Xyg: 330 [id number] [phone] (HP) Date:2018-10-13 10/13/2018 Secondary JADA W Thayer Insurance:AULTCAREPol BRENEMANDOB: Community icy Number: [id number] Hospital [id number] Repository Date:1618-04-30AQ [facility] [address] [place] [address]TZ: 10/13/2018 Tertiary NOT GIVENUNK Sandra Insurance:SELF PAY [facility] Number: Effective Repository Date:2018-10-13 10/13/2018 JADA W Primary JADA W Thayer [id number] E Insurance:MEDICARE BRENEMANDOB: Community [address] PART A [facility] [id number] Number: Repository [address]Dzr: 330 [id number] [phone] (HP) Date:2018-10-13 10/13/2018 Secondary JADA W Thayer Insurance:AULTCAREPol BRENEMANDOB: Community icy Number: [id number] Hospital [id number] Repository Date:4209-63-49MC [facility] [address] [place] [address]LU: 10/13/2018 Tertiary NOT GIVENUNK Sandra Insurance:SELF PAY [facility] Number: Effective Repository Date:2018-10-13 10/13/2018 JADA W Primary JADA W Thayer [id number] E Insurance:MEDICARE BRENEMANDOB: Community [address] PART A [facility] [id number] Number: Repository [address]Pvy: 330 [id number] [phone] (HP) Date:2018-10-13 10/13/2018 Secondary JADA W Sandra Insurance:AULTCAREPol BRENEMANDOB: Community icy Number: [id number] Hospital [id number] Repository Date:3927-54-05UJ [address] [address]LL: 10/13/2018 Tertiary NOT GIVENUNK Sandra Insurance:SELF PAY [facility] Number: Effective Repository Date:2018-10-13 10/13/2018 JADA W Primary JADA W Thayer [id number] E Insurance:MEDICARE BRENEMANDOB: Community [address] PART A [facility] [id number] Number: Repository [address]Qem: 330 [id number] [phone] (HP) Date:2018-10-13 10/13/2018 Secondary JADA W Thayer Insurance:AULTCAREPol BRENEMANDOB: [facility] icy Number: [id number] Hospital [id number] Repository Date:0490-85-94XL [facility] [address] [place] [address]PM: 10/13/2018 Tertiary NOT GIVENUNK Thayer Insurance:SELF PAY [facility] Number: Effective Repository Date:2018-10-13 10/13/2018 JADA W Primary JADA W Thayer [id number] E Insurance:MEDICARE BRENEMANDOB: Community [address] PART A [facility] [id number] Number: Repository [id number]: (695) [id number] [phone] (HP) Date:2018-10-13 10/13/2018 Secondary JADA W Sandra Insurance:AULTCAREPol BRENEMANDOB: [facility] icy Number: [id number] Hospital [id number] Repository Date:6755-01-63QQ [address] [address]OC: 10/13/2018 Tertiary NOT GIVENUNK Thayer Insurance:SELF PAY [facility] Number: Effective Repository Date:2018-10-13 10/13/2018 JADA W Primary JADA Velasquez Sandra [id number] E Insurance:MEDICARE BRENEMANDOB: [facility] [address] PART A [facility] [id number] Number: Repository [id number]: [phone]) [id number] [phone] (HP) Date:2018-10-13 10/13/2018 Secondary JADA W Thayer Insurance:AULTCAREPol BRENEMANDOB: Community icy Number: [id number] Hospital [id number] Repository Date:5729-59-05PV [facility] [address] [place] [address]LK: 10/13/2018 Tertiary NOT GIVENUNK Thayer Insurance:SELF PAY [facility] Number: Effective Repository Date:2018-10-13 10/10/2018 JADA W Primary JADA Velasquez [facility] BRENEMANDOB: Insurance:MEDICARE BRENEMANDOB: [facility] E PART B INSCOPolicy [id number] Repository [facility] Number: E [facility] [id number], [id number] [address] Date:2018-10-10 - [place] [address]Sly: [address]~[email or web address]@[facility] 8149-04-52Lpxs31plan Tiipz.com~SAMIR Name:PCGS (HP)Tel: (017) Administrators LLCPO [phone] (WP) MTel: ([phone]) [address]Fnulhzfpm, [phone] () [place] [address]GY: 10/10/2018 Secondary JADA Velasquez [facility] Insurance:AULTCARE BRENEMANDOB: [facility] N2PJeewxy Number: [id number] Repository [id number] E [facility] Date:2018-10-10 - [id number], 4258-55-39Odvp [place] [address]Jsz: 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 [address] [place] [address] ()Tel: [phone]) [phone]: (wp) [phone] 10/03/2018 JADA Velasquez Primary JADA W Thayer [id number] E Insurance:MEDICARE BRENEMANDOB: [facility] PART A BPolic [id number] Number: Repository [address]Hpl: ([phone]) [id number] [phone] () Date:2018-10-01 10/03/2018 Secondary JADA W Thayer Insurance:AULTCAREPol BRENEMANDOB: [facility] Number: [id number] Hospital [id number] Repository Date:3960-87-35YS [address] [place] [address]QP: 10/03/2018 Tertiary NOT GIVENUNK Sandra Insurance:SELF PAY [facility] Number: Effective Repository Date:2018-10-01 09/30/2018 JADA W Primary JADA W [facility] BRENEMANDOB: Insurance:AULTCARE BRENEMANDOB: [facility] E [id number] Number: [id number] Repository [facility] [id number] E [facility] [id number], Date:2018-09-30 - VES916BWFRAMC, [place] 3959-84-92Xtve [place] [address]Mmu: [address]~BL7308@[facility] 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 Box OO.COM~BRII[address] ()Tel: [phone]: (WP) MTel: [phone] () 09/19/2018 [facility] BRENEMANDOB: Insurance:MEDICARE BRENEMANDOB: [facility] PART A INSCOPolicy [id number] [address] Number: [address] [place], [place] [id number] [place] [address]~ZH8087@[facility] Date:2018-09-19Tel: (073) Tiipz.com~[employer] 9692-05-67Jxbx-68Vfdi [phone] Name:MMail Code (HP)Tel: (154) MTel: [phone] [phone] (RW) [phone] () 130745Rmhmgnsb, [place] [address]KM: 09/19/2018 Secondary [facility] Insurance:AULTCARE BRENEMANDOB: [facility] [id number] Number: [id number] Repository [id number] [address] Date:2018-09-19 - [place], [place] 1902-23-25Ckuv [address]Gel: (330) 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 [phone] [place] [address] ()Tel: [phone]: (wp) [phone] 09/08/2018 [facility] BRENEMANDOB: Insurance:MEDICARE BRENEMANDOB: [facility] PART A INSCOPolicy [id number] [address] Number: [address] [place], [place] [id number] [place] [address]~JS0118@[facility] Date:2017-05-04Tel: (912) Covagen.COM~[facility] 3318-04-01Gasy -3405 [email or web address]@[facility] Name:MMail Code AG (HP)Tel: (340) MTel: ([phone] 717GK [phone] (WP) [phone] () [address]69652Viafvmcm, [place] [address]OO: 09/08/2018 Secondary [facility] Insurance:MEDICARE BRENEMANDOB: [facility] PART B INSCOPolicy [id number] Repository Number: [address] [id number] [place] Date:2017-05-04Tel: (377) 8699-00-03Yilr [phone] Name:PCGS ()Tel: (507) Qqcqyzaforzdxh LLCPO [phone] (WP) [address] [place] [address]JY: 09/08/2018 Tertiary [facility] Insurance:AULTCARE BRENEMANDOB: Foundation [id number] Number: [id number] Repository [id number] [address] Date:2017-05-04 [place] 2990-88-18Lklo [address]Onq: (330) 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 [phone] [place] [address] ()Tel: [phone]: (WP) [phone] 08/13/2018 [facility] Primary [facility] BRENEMANDOB: Insurance:MEDICARE BRENEMANDOB: [facility] PART BPolicy Number: [id number] [id number] [address] [place], [place] Date:2018-08-13 - [place] [address]~EF2179@[facility] 5512-14-95Buhu [address]Jck: (330) Tiipz.com~SAMIR Name:CECILIA 454Bushra8658 Administrators LLCPO (HP)Tel: (869) MTel: (330) [address]Knijwdxpn, [phone] (WP) [phone] (HP) [place] [address]UW: 08/13/2018 Secondary [facility] [id number] Number: [id number] Repository [id number] [address] Date:2018-08-13 - [place] 9493-66-40Haum [address]Exi: (330) 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 Velarde [phone] [place] [address] ()Tel: [phone]: (wp) [phone] 06/26/2018 [facility] BRENEMANDOB: Insurance:MEDICARE [facility]: [facility] PART BPolicy Number: [id number] [address] [id number] [address] [place], [place] Date:2018-06-26 - [place] [address]~AF2231@[facility] 9093-90-78Txev 434[address]Mxr: (330) Tiipz.com~SAMIR Name:CECILIA 454-8658 Administrators LLCPO (HP)Tel: ([phone]) MTel: (330) [address]Djmksipii, [phone] (WP) [phone] (HP) [place] [address]SB: 06/26/2018 Secondary [facility] Insurance:[facility] BRENEMANDOB: [facility] [id number] Number: [id number] Repository [id number] [address] Date:2018-06-26 - [place] 8895-94-23Jeik [address]Iag: (330) 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 [phone] [place] [address] (HP)Tel: [phone]) [phone]: (wp) [phone] 05/27/2018 [facility] BRENEMANDOB: Insurance:MEDICARE BRENEMANDOB: [facility] PART APolicy Number: [id number] [address] [id number] [address] [place], [place] Date:2018-05-27 [place] [address]~WD6549@[facility] 0906-62-16Vgis [address]Ymu: (138) Tiipz.com~SAMIR Name:MMail Code DELORES [phone] [address] (HP)Tel: 330 MTel: (846) 291440Ncfwoudx, [place] [phone] (WP) [phone] (HP) [address]MH: 05/27/2018 Secondary [facility] Insurance:MEDICARE BRENEMANDOB: [facility] PART BPolicy Number: [id number] Repository [id number] [address] Date:2018-05-27 - [place] 8690-31-12Cghs [address]Ymu: (330) Name:[facility]Alex 244Bushra6753 [facility] LLCPO (HP)Tel: 330) [address]Lhyjhwgmm, [phone] (WP) [place] [address]RJ: 05/27/2018 Tertiary [facility] Insurance:AULTCARE BRENEMANDOB: [facility] [id number] Number: [id number] Repository [id number] [address] Date:2018-05-27 - [place] 9335-86-71Fmrn [address]Nai: (330) 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 BRENEMANDOB: Insurance:MEDICARE BRENEMANDOB: Foundation PART BPolicy Number: [id number] [address] [id number] [address] [place], [place] Date:2018-05-23 - [place] [address]~UD1931@[facility] 7871-75-34Nppk 88[address]Wpg: (334) Covagen.COM~SAMIR Name:[facility] [phone] [facility] (HP)Tel: ([phone]) MTel: (539) [address]Hiqmteekz, [phone] (RJ) [phone] () [place] [address]FV: 05/23/2018 [facility] BRENEMANDOB: Foundation [id number] Number: [id number] Repository [id number] [address] Date:2018-05-23 - [place] 7863-43-86Apvf [address]Rqq: (330) Name:[facility] [phone] [address], [place] ()Tel: [phone]) [phone]: (wp) [phone] 05/17/2018 JADA Velasquez [facility] JADA [facility] BRENEMANDOB: Insurance:SELF BRENEMANDOB: [facility] PAYPolicy Number: [id number] [address] Effective [address] [place], [place] Date:2018-05-13 - [place] [address]~ZA5135@[facility] 2152-49-43Lqpy Name:8 [address]Oiq: (239) Covagen.COM~SAMIR [phone] (HP)Tel: ([phone]) MTel: (wp) [phone] () 05/17/2018 [facility] BRENEMANDOB: Foundation PART BPolicy Number: [id number] Repository [id number] [address] Date:2018-05-13 - [place] [id number]: (330) Name:[facility] [employer] LLCP[employer] (HP)Tel: ([phone]) [address] [address]Jawsjunwv, [phone] (WP) [place] [address]TY: 05/17/2018 Tertiary [facility] Insurance:AULTCARE BRENEMANDOB: [facility] [id number] Number: [id number] Repository [id number] [address] Date:2018-05-13 - [place], [place] [id number]: (330) Name:[facility] [phone] [place] (HP)Tel: ) [phone]: (WP) [phone] 04/25/2018 [facility] Primary [facility] BRENEMANDOB: Insurance:MEDICARE BRENEMANDOB: [facility] PART APolicy Number: [id number] [address]ository [address] [id number] [address] [place], [place] Date:2018-04-25 - [place] [email or web address] [id number]: (330) [email or web address] [facility] [phone] [address] (HP)Tel: (330) MTel: [phone] [id number], [place] [phone] (WP) [phone] (HP) [address]ZO: 04/25/2018 Secondary [facility] Insurance:MEDICARE BRENEMANDOB: [facility] PART BPolicy Number: [id number] Repository [id number] [address] Date:2018-04-25 - [place], [place] [id number]: (330) Name:[facility] [employer] LLCPO (HP)Tel: ([phone]) [address] [phone], [phone] (WP) [place] [address]FM: 04/25/2018 Tertiary [facility] Insurance:AULTCARE BRENEMANDOB: [facility] [id number] Number: [id number] Repository [id number] [address] Date:2018-04-25 - [place], [place] 2607-91-39Vpjb 48062Ibj: (330) 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 [phone] [address], [place] (HP)Tel: [phone]) [phone]: (WP) [phone] 04/20/2018 [facility] BRENEMANDOB: Insurance:MEDICARE BRENEMANDOB: [facility] PART APolicy Number: [id number] [address] [id number] [address] [place], [place] Date:2018-04-20 - [place] [email or web address] [id number] 30850Jev: (330) [email or web address]~SAMIR Name:[facility] Code [phone] [address] ([place])Tel: [phone] MTel: [phone] 707064Uppvjntu, [place] [phone] (WP) [phone] (HP) [address]CQ: 04/20/2018 Secondary [facility] Insurance:MEDICARE BRENEMANDOB: Foundation PART BPolicy Number: [id number] Repository [id number] [address] Date:2018-04-20 - [place], [place] [id number] 12642Fgv: (330) Name:[facility] [phone] Administrators LLCPO (HP)Tel: [phone]) [address] [address]Tiryaqqru, [phone] (WP) [place] [address]OA: 04/20/2018 Tertiary [facility] Insurance:AULTCARE BRENEMANDOB: [address] Number: [id number] Repository [id number] [address] Date:2018-04-20 [place], [place] 1306-88-00Yqma 45574Tdg: (330) 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 Velarde [phone] [place] [address] ()Tel: [phone]: (wp) [phone] 04/01/2018 [facility] Primary [facility] BRENEMANDOB: Insurance:MEDICARE BRENEMANDOB: [facility] PART BPolicy Number: [id number] [address] [id number] [address] [place], [place] Date:2018-04-01 - [place] [email or web address] [id number] 80668Air: (682) [email or web address]~SAMIR Name:[facility] [phone] [email or web address] Administrators [facility] (HP)Tel: [phone] MTel: [phone]) [address] [address]Thevpgnct, [phone] (JS) [phone] () [place] [address]DQ: 04/01/2018 Secondary [facility] BRENEMANDOB: [facility] [id number] Number: [id number] Repository [id number] [address] Date:2018-04-01 [place], [place] 7105-81-99Pwdl 07803Ygp: (330) 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 Prachi [phone] [place] [address] ()Tel: [phone]: (wp) [phone] 04/01/2018 [facility] Primary [facility] BRENEMANDOB: Insurance:MEDICARE BRENEMANDOB: [facility] PART BPolicy Number: [id number] [address] [id number] [address] [place], [place] Date:2018-04-01 - [place] [email or web address] [id number] 28301Jvk: (330) [email or web address]~SAMIR Name:CECILIA [phone] Administrators LLCPO (HP)Tel: [phone] MTel: [phone]) [address]Dcoyxcwua, [phone] (WP) [phone] (HP) [place] [address]AB: 04/01/2018 Secondary [facility] Insurance[facility] [id number] Number: [id number] Repository [id number] [address] Date:2018-04-01 - [place], [place] [id number] 816[address]Mnl: (330) Name:[facility] [phone] [place] [address] ()Tel: [phone]: (wp) [phone] 02/07/2018 [facility] Primary [facility] BRENEMANDOB: Insurance:MEDICARE [facility]: [facility] PART BPolicy Number: [id number] [address] [id number] [address] [place], [place] Date:2018-02-07 - [place] [email or web address] [id number] 78970Brj: 330) [email or web address]~SAMIR Name:CECILIA [phone] Administrators LLCPO (HP)Tel: [phone] MTel: ([phone]) [address]Vtmtnbtzp, [phone] (WP) [phone] (HP) [place] [address]BT: 02/07/2018 Secondary [facility] Insurance:[facility]ITAL[facility]: [facility] [id number] Number: [id number] Repository [id number] [address] Date:2018-02-07 - [place], [place] 7213-45-71Uuxh 23895Xgr: (330) Name:[facility] [phone] [place] [address] ()Tel: [phone]: (wp) [phone] 02/04/2018 JADA W [facility]ENEMANDOB: Insurance:MEDICARE BRENEMANDOB: [facility] PART BPolicy Number: [id number] [address] [id number] [address] [place], [place] Date:2018-02-04 - [place] [address]~[email or web address] [id number] 32705Ray: (910) [email or web address]~[email or web address] Name:[facility] [phone] Administrators LLCPO (HP)Tel: [phone]) MTel: 330) [address]Qpolzjgfo, [phone] (WP) [phone] () [place] [address]DN: 02/04/2018 Secondary [facility]ITALANDOB: [facility] [id number] Number: [id number] Repository [id number] [address] Date:2018-02-04 - [place] 8223-33-15Pgrc 97559Ykj: (330) 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 Velarde [phone] [place] [address] ()Tel: [phone]: (wp) [phone] 01/28/2018 [facility]EM[facility]OB: Insurance:MEDICARE BRENEMANDOB: [facility] PART BPolicy Number: [id number] [address] [id number] [address] [place], [place] Date:2018-01-28 - [place] [address]~[email or web address]@[facility] [id number] 26854Yoq: (719) [email or web address]~BRIIYBREN Name:[facility] [phone] Administrators LLCPO (HP)Tel: [phone]) MTel: ([phone]) [address] [address]Xikbhovae, [phone] () [phone] (HP) [place] [address]ZT: 01/28/2018 Secondary JADA Velasquez [facility] Insurance:AUCARE BRENEMANDOB: [facility] [id number] Number: [id number] Repository [id number] [address] Date:2018-01-28 [place], [place] 6411-70-62Uvoa 30949Zrr: (330) 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 [phone] [place] [address] ()Tel: [phone]: (wp) [phone] 01/03/2018 JADA [facility] BRENEMANDOB: Insurance:MEDICARE BRENEMANDOB: [facility] PART BPolicy Number: [id number] [id number] [address] [facility] [place] Date:2018-01-03 [place] [address]~[email or web address] [id number] 17888Ybh: (830) [email or web address]~[email or web address] PIERRE Name:[facility] [phone] Administrators [facility] (HP)Tel: ([phone]) MTel: 330) [address] [address]Efdkahedm, [phone] (WP) [phone] () [place] [address]AA: 01/03/2018 [facility]:AULTCARE BRENEMANDOB: [facility] [id number] Number: [id number] Repository [id number] [address] Date:2018-01-03 - [place] 9730-69-19Skpg 21527Rgb: (330) Name:[facility] [phone] [place] [address] ()Tel: [phone]: (wp) [phone] 12/31/2017 JADA [facility] BRENEMANDOB: Insurance:MEDICARE BRENEMANDOB: [facility] PART BPolicy Number: [id number] [id number] [address] [place], [place] Date:2017-12-31 - [place] [address]~[email or web address] [id number] 19391Cvu: (330) [email or web address] [email or web address]~SAMIR Name:CECILIA [phone] Administrators LLCPO (HP)Tel: [phone] MTel: ([phone]) [address] [address]Cbgjmrane, [phone] (WP) [phone] (HP) [place] [address]LJ: 12/31/2017 Secondary [facility] Insurance:[facility]: [address] Number: [id number] Repository [id number] [address] Date:2017-12-31 - [place], [place] 4668-78-38Lrsj 46334Isr: (330) Name:[facility] [phone] [place] [address] ()Tel: [phone]: (wp) [phone] 12/10/2017 [facility]: [facility] PART BPolicy Number: [id number] [id number] [address] [place], [place] Date:2017-11-27 - [place] [address]~[email or web address] [id number] 97934Wwe: (330) [email or web address] [email or web address]~SAMIR Name:CECILIA [phone] Administrators LLCPO (HP)Tel: [phone]) MTel: ([phone]) [address] [address]Wavppoaou, [phone] (WP) [phone] (HP) [place] [address]BI: 12/10/2017 Secondary [facility] Insurance:AUCARE BRENEMANDOB: [facility] [id number] Number: [id number] Repository [id number] [address] Date:2017-11-27 - [place], [place] 6712-53-87Pnux 64567Hzt: (529) 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
== END ==
DX: M79.89 Other specified soft tissue disorders (principal)
CPT/HCPCS: 93971

== ENCOUNTER 2018-10-13 12:26 | Inpatient (IN) | payer MEDICARE, OTHER, SELFPAY ==
[2018-10-13] VITALS (7 sets, daily range): BP systolic 139–148; BP diastolic 72–79; PULSE 59–77; RESP 17–20; TEMP 36.7–37.2; O2SAT 91–98; BMI 37.2; BMI 36.9; BMI 37.0
--- NOTE | 2018-10-13 13:48 | RAD_ITS ---
STUDY: X-RAY - RIGHT FOOT CLINICAL: Male, 62 years old. Wound of lateral heel TECHNIQUE: 3 view(s) of the foot. COMPARISON: None. FINDINGS: There is no evidence of fracture or dislocation. There is faint lucency in the calcaneus which may represent osteomyelitis. There is subcutaneous air in the soft tissues overlying the heel, consistent with the patient's history of a wound. There is diffuse soft tissue swelling. RAD/Foot min 3 Views IMPRESSION: No fracture or dislocation. Subcutaneous air in the soft tissues overlying the heel, consistent with the patient's history of a wound. Faint lucency in the calcaneus adjacent to the wound. This may represent osteomyelitis. If indicated, further evaluation with MRI can BE performed. Diffuse soft tissue swelling. Electronically Signed: Boris Lizarraga, at 14:07 EST Tel , Service support ,
[2018-10-13 13:50] LABS: Absolute Lymphocyte Count 0.85 X10^3/ul (0.83-4.51); Absolute Neutrophil Count 7.2 X10^3/uL (2.0-7.7); Basophil# 0.04 X10^3/uL; Basophil% 0.4 % (0-1); Eosinophil# 0.19 X10^3/uL; Eosinophils% 2.1 % (0-5); Hematocrit 28.8 % (40-54); Hemoglobin 8.9 g/dl (13.0-16.5); Lymphocyte # 0.85 X10^3/ul (4.0); Lymphocyte % 9.5 % (19-41); Mean Corp Hgb Conc 30.9 g/gl (32-36); Mean Corpuscular Hgb 27.6 pg (27.0-32.0); Mean Corpuscular Volume 89.2 fL (80-94); Mean Platelet Vol. 9.6 fl (6.2-12.0); Monocyte% 7.8 % (0-10); Neutrophil # 7.18 X10^3/uL (2.7-7.7); Neutrophil % 80.1 % (47-70); POSITIVE COUNT NO; POSITIVE DIFFERENTIAL NO; POSITIVE MORPHOLOGY NO; Platelet Count 151 K/mm3 (150-450); Red Blood Count 3.23 M/mm3 (4.6-6.2)
[2018-10-13 14:01] LABS: Anion Gap 9 (5-15); BUN 60 mg/dL (7-18); BUN/Creat Ratio 31.7 RATIO (10-20); Calcium,Total 8.7 mg/dL (8.5-10.1); Chloride 101 mmol/L (98-107); Creatinine, Serum 1.89 mg/dL (0.70-1.30); EST Glomerular Filtration Rate 39 mL/min (>60); Est Glom Filt Rate - Afr Amer 47 mL/min (>60); Estimated Creatinine Clearance 41.04 ml/min; Glucose 164 mg/dL (74-106); Potassium 4.7 mmol/L (3.5-5.1); Sodium Level 141 mmol/L (136-145)
--- NOTE | 2018-10-13 14:49 | NURSING ---
MED SURG DIABETIC FOOT INFECTION, OSTEOMYELITIS ODALIS
[2018-10-13] MEDS: Piperacil/Tazobactam 3.375 GM/50 ML ML IV ×2 (15:14→21:48)
--- NOTE | 2018-10-13 15:24 | ED.DCSUM_ITS ---
- ER Visit Summary Date of Service: 10/13/18 Chief Complaint: Right foot pain History of Present Illness: The patient is a 62 M presenting for evaluation secondary to a possible foot infection. Patient is diabetic and has decreased sensation of his right foot. Patient reports that he had a blister there that developed about a week ago and spontaneously broke. Patient denies any constitutional symptoms. Physical Examination: Lower extremity exam shows approximately a 4-5 cm open eschar over the patient's right plantar heel. There is evidence of blanching just surrounding this and some subcutaneous emphysema. There is some extending erythema and mild swelling of the foot. Test Results: CBC shows anemia with a hemoglobin of 8, chemistry shows elevated creatinine at 1.8. Blood cultures are pending. Foot x-ray shows potential osteomyelitis Emergency Department Course and Treatment: Patient presented secondary to a diabetic foot infection. Workup as noted above shows likely evidence of the patient having osteomyelitis. I discussed this with podiatry who recommends broad-spectrum antibiotics. Patient will be admitted under the hospitalist. Disposition: Admission Impression: 1. Right heel osteomyelitis This note was generated with [employer] dictation software. It may contain incorrect words, spelling, and punctuation that were not noted in review of the chart prior to signing ED Disposition - Plan for ED Patient: Chief Complaint: Cellulitis Referrals: Care Physician,No Primary [Primary Care Provider] -
--- NOTE | 2018-10-13 16:01 | PCM.HP.STD ---
Problem List (1) Pain of right heel Status: Acute History of Present Illness Date of Admission: 10/13/18 Chief Complaint: Right heel pain The patient is a 62 year old M who was seen in the emergency room at [facility] with chief complaint of increased pain in his right heel today, patient stated that he had a blister on his right heel approximately a week ago and this burst ever since that time, he has had increased swelling in the area of his right heel and he has had pain today. Patient states that he has had some discharge from the right heel that he described as bloody over the past 24 hours. Patient denied any fevers or chills. Evaluation in the emergency room included labs which revealed a normal white blood cell count, hemoglobin was 8.9, chemistry profile was remarkable for a BUN of 60 and a creatinine of 1.89. Patient's blood glucose was 164. X-rays were obtained of the right foot, there was noted to be subcutaneous air in the soft tissues overlying the heel consistent with a wound, there was also a faint lucency in the calcaneus adjacent to the wound which might represent osteomyelitis. There is diffuse soft tissue swelling in the right foot. Podiatry was contacted by the emergency room physician, they requested the hospitalist service admit the patient for deep wound infection of the right foot, the patient's wound on his right heel is covered with an eschar and is is not stageable. Patient was given IV vancomycin and Zosyn in the emergency room Past Medical History Past Medical History (Chronic Problems): Chronic Problems mediport placement (Chronic) Hyperlipidemia (Chronic) DM type 2 (diabetes mellitus, type 2) (Chronic) Chronic CHF (congestive heart failure) (Chronic) ef=25% as of 04/04 Carotid artery stenosis (Chronic) R CEA CAD (coronary artery disease) (Chronic) extensive disease multiple stents Hx of CABG (Chronic) hx epidural abscess (Chronic) Obesity (Chronic) Benign hypertension (Chronic) Allergies [place]-Zwb-Lpc Reductase Inhibitor Allergy (Verified 10/13/18 12:27) rhabdo metoclopramide HCl [From Reglan] Adverse Reaction (Verified 10/13/18 12:27) goofy, anxious, elevated BP ondansetron HCl [From Zofran] Adverse Reaction (Verified 10/13/18 12:27) goofy, anxious, elevated BP Home Medications: Ambulatory Orders Medication Instructions Recorded Clopidogrel Bisulfate [Plavix] 75 mg PO DAILY 02/08/15 Carvedilol [Coreg (Beta Ronald)] 25 mg PO BID 08/11/15 Isosorbide Mononitrate [Imdur] 60 mg PO DAILY 03/05/16 Tizanidine HCl 8 mg PO TID PRN 03/05/16 Aspirin 81 mg PO DAILY 10/13/18 Atorvastatin Calcium [Lipitor] 80 mg PO QHS 10/13/18 Bumetanide 3 mg PO DAILY 10/13/18 Diclofenac [Voltaren] 75 mg PO BIDCM 10/13/18 Duloxetine HCl 30 mg PO DAILY 10/13/18 Ferrous Sulfate [Ferosul] 325 mg PO QODAY 10/13/18 Gabapentin 600 mg PO TID 10/13/18 Hydrocodone/Acetaminophen [[place] 1 each PO PRN PRN 10/13/18 5-325 Tablet] Hydroxyzine HCl 25 mg PO TID 10/13/18 Insulin Glargine,Hum.rec.anlog 30 unit SC BID 10/13/18 [Basaglar Kwikpen U-100] Melatonin 20 mg PO QHS 10/13/18 Sertraline HCl 100 mg PO DAILY 10/13/18 hydrALAZINE [Apresoline] 25 mg PO TID 10/13/18 Surgical History: appendectomy, cataract, cholecystectomy, coronary bypass surgery - 2004 - [place], herniorrhaphy, tonsillectomy, - - Cardiac stent placement ?24 (according to patient), right carotid endarterectomy. Psychiatric History: Depression Lives: With Family Smoking Status: Never smoker Tobacco Use: Non-smoker Alcohol: None - *Family History Maternal History Items: No pertinent history Paternal History Items: Heart Disease - of an [place] at age 61 Sibling History Items: No pertinent history Review of Systems Constitutional: Denies: Anorexia, Chills, Fever, Night Sweats, Malaise, Weakness, Weight Change, Fatigue Eyes: Denies: Cataracts, Conjunctivae Inflammation, Double vision, Drainage, Redness, Vision Change HEENT: Denies: Difficulty Swallowing, Dysphasia, Ear Pain, Eye Pain, Head Aches, Hearing Changes, Nasal bleeding, Nasal Congestion, Post Nasal Drip Cardiovascular: Denies: Chest Pain, Claudication, Chest Pressure, Chest Tightness, Edema, Heaviness, Palpitations Respiratory: Denies: Cough, Hemoptysis, Pleuritic Pain, Shortness of Breath, Shortness of breath at rest, Shortness of breath upon exertion Gastrointestinal: Denies: Abdominal Pain, Constipation, Diarrhea, Hematemesis, Hematochezia, Nausea, Melena, Vomiting Genitourinary: Denies: Dysuria, Frequency, Hematuria, Hesitancy, Urgency Musculoskeletal: Reports: Foot Pain - Patient has complained of right heel pain times 1 week. Denies: Joint Pain, Joint stiffness, Joint swelling, Joint Tenderness, Leg Pain, Muscle pain, Neck Pain, Shoulder Pain Skin: Reports: Wounds - Patient had a blister on his right heel which burst a week ago. Denies: Dryness, Pruritis, Rash Neurological: Denies: Blurred vision, Double vision, Slurred speech, Difficulty swallowing, Focal weakness, Headaches, Incoordination, Numbness, Tingling Psychiatric: Denies: Anxiety, Depression, Homicidal Ideations, Suicidal Ideations Endocrine: Denies: Change in Body Habitus, Heat/ Cold Intolerance, Polydipsia, Polyuria Hematologic/ Lymphatic: Denies: Adenopathy, Anemia, Easy Bruising, Easy Bleeding, Petechiae, Purpura VTE Information - Inpt Only VTE Present on Admission: No VTE Mechan Device Prophylaxis: None VTE Pharm Prophylaxis ordered?: Yes Patient Problems: Active and Suspected Problems Pain of right heel (Acute) - Physical Exam General: Alert, Oriented x3, Cooperative, No apparent distress, Well developed, Well nourished HEENT: Atraumatic, PERRLA, EOMI, Normocephalic Oral: Moist Mucosa Neck: Supple, No JVD, Negative Carotid Bruits, No Nuchal Rigidity, Trachea Midline, Thyroid Normal Size and Texture Lungs: Clear to auscultation, Normal air movement, No rhonchi, No wheeze, No rales Cardiovascular: Regular rate, Regular Rhythm, Normal S1, Normal S2, No murmurs, No Ectopic Activity, PMI Normal, No rub noted, No Gallop Abdomen: Bowel Sounds Present, Soft, Non Tender, Non-Distended, No hernias noted Extremities: Capillary Refill Less than 3 Seconds, Edema - There is diffuse edema of the right foot +3 mm noted to be present, there is also edema in the left foot to a lesser extent which is +1 mm pitting Skin: No rashes, Ulcer/ Wound - There are eschars located over the patient's right heel and left medial heel, no discharge is noted from either area Musculoskeletal: No Tenderness to Palpation of Joints or Extremities Neurological: Cranial nerves II-XII grossly intact, Neuro grossly intact, Coordination normal Psych/Mental Status: Normal Affect, Appropriate, Alert and oriented to time, place, person, mood and affect Vital Signs Temp Pulse Resp BP Pulse Ox 98.1 F 64 18 148/76 H 91 10/13/18 12:27 10/13/18 15:16 10/13/18 15:16 10/13/18 15:16 10/13/18 15:16 Oxygen Delivery Method Room Air Weight: 113.534 kg Body Mass Index (BMI) 36.9 Finger Stick Blood Glucose 42 Laboratory Tests Past 24 Hrs 10/13/18 10/13/18 13:33 13:33 WBC 9.0 RBC 3.23 L Hgb 8.9 L Hct 28.8 L MCV 89.2 MCH 27.6 MCHC 30.9 L RDW 15.0 H RDW Differential 49.0 H Plt Count 151 MPV 9.6 Immature Gran % (Auto) 0.100 Neut % (Auto) 80.1 H Lymph % (Auto) 9.5 L [place] % (Auto) 7.8 Eos % (Auto) 2.1 Baso % (Auto) 0.4 Absolute Neuts (auto) 7.2 Absolute Lymphs (auto) 0.85 Total Counted Not Reportable Sodium 141 Potassium 4.7 Chloride 101 Carbon Dioxide 31.0 Anion Gap 9 BUN 60 H Creatinine 1.89 H Estim Creat Clear Calc 41.04 Est GFR (MDRD) Af Amer 47 L Est GFR (MDRD) Non-Af 39 L BUN/Creatinine Ratio 31.7 H Glucose 164 H Calcium 8.7 Assessment/Plan All Active Problems Pain of right heel (Acute) Suspected sleep apnea (Acute) #1 deep wound infection of the right heel/possible osteomyelitis-patient will be admitted to [facility], he will be maintained on IV Zosyn and vancomycin, he will be seen in consultation by podiatry, he will need a bone scan due to the fact that he has either a defibrillator or pacemaker (patient is not sure which) which is not compatible with MRI as he has been told. #2 type 2 diabetes-blood sugars will be monitored, patient will be given sliding scale insulin per protocol, he will remain on his home insulin dosage #3 diabetic neuropathy #4 eschar in the left heel-this area does not appear to be reddened or tender #5 coronary artery disease-patient states he has had multiple stents placed in the past as well as coronary artery bypass grafting. 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, patient states this was several years ago Code Visit Inpatient E&M: 00901 Init Hosp L3
--- NOTE | 2018-10-13 16:07 | HP.PCM_ITS ---
Problem List (1) Pain of right heel Status: Acute History of Present Illness Date of Admission: 10/13/18 Chief Complaint: Right heel pain The patient is a 62 year old M who was seen in the emergency room at [facility] with chief complaint of increased pain in his right heel today, patient stated that he had a blister on his right heel approximately a week ago and this burst ever since that time, he has had increased swelling in the area of his right heel and he has had pain today. Patient states that he has had some discharge from the right heel that he described as bloody over the past 24 hours. Patient denied any fevers or chills. Evaluation in the emergency room included labs which revealed a normal white blood cell count, hemoglobin was 8.9, chemistry profile was remarkable for a BUN of 60 and a creatinine of 1.89. Patient's blood glucose was 164. X-rays were obtained of the right foot, there was noted to be subcutaneous air in the soft tissues overlying the heel consistent with a wound, there was also a faint luce ncy in the calcaneus adjacent to the wound which might represent osteomyelitis. There is diffuse soft tissue swelling in the right foot. Podiatry was contacted by the emergency room physician, they requested the hospitalist service admit the patient for deep wound infection of the right foot, the patient's wound on his right heel is covered with an eschar and is is not stageable. Patient was given IV vancomycin and Zosyn in the emergency room Past Medical History Past Medical History (Chronic Problems): Chronic Problems mediport placement (Chronic) Hyperlipidemia (Chronic) DM type 2 (diabetes mellitus, type 2) (Chronic) Chronic CHF (congestive heart failure) (Chronic) ef=25% as of 04/04 Carotid artery stenosis (Chronic) R CEA CAD (coronary artery disease) (Chronic) extensive disease multiple stents Hx of CABG (Chronic) hx epidural abscess (Chronic) Obesity (Chronic) Benign hypertension (Chronic) Allergies Qfvctek-Vqp-Nkg Reductase Inhibitor Allergy (Verified 10/13/18 12:27) rhabdo metoclopramide HCl [From Reglan] Adverse Reaction (Verified 10/13/18 12:27) goofy, anxious, elevated BP ondansetron HCl [From Zofran] Adverse Reaction (Verified 10/13/18 12:27) goofy, anxious, elevated BP Home Medications: Ambulatory Orders Medication Instructions Recorded Clopidogrel Bisulfate [Plavix] 75 mg PO DAILY 02/08/15 Carvedilol [Coreg (Beta Ronald)] 25 mg PO BID 08/11/15 Isosorbide Mononitrate [Imdur] 60 mg PO DAILY 03/05/16 Tizanidine HCl 8 mg PO TID PRN 03/05/16 Aspirin 81 mg PO DAILY 10/13/18 Atorvastatin Calcium [Lipitor] 80 mg PO QHS 10/13/18 Bumetanide 3 mg PO DAILY 10/13/18 Diclofenac [Voltaren] 75 mg PO BIDCM 10/13/18 Duloxetine HCl 30 mg PO DAILY 10/13/18 Ferrous Sulfate [Ferosul] 325 mg PO QODAY 10/13/18 Gabapentin 600 mg PO TID 10/13/18 Hydrocodone/Acetaminophen [[place] 1 each PO PRN PRN 10/13/18 5-325 Tablet] Hydroxyzine HCl 25 mg PO TID 10/13/18 Insulin Glargine,Hum.rec.anlog 30 unit SC BID 10/13/18 [Basaglar Kwikpen U-100] Melatonin 20 mg PO QHS 10/13/18 Sertraline HCl 100 mg PO DAILY 10/13/18 hydrALAZINE [Apresoline] 25 mg PO TID 10/13/18 Surgical History: appendectomy, cataract, cholecystectomy, coronary bypass surgery - 2004 - [place], herniorrhaphy, tonsillectomy, - - Cardiac stent placement ?24 (according to patient), right carotid endarterectomy. Psychiatric History: Depression Lives: With Family Smoking Status: Never smoker Tobacco Use: Non-smoker Alcohol: None - *Family History Maternal History Items: No pertinent history Paternal History Items: Heart Disease - of an MA at age 61 Sibling History Items: No pertinent history Review of Systems Constitutional: Denies: Anorexia, Chills, Fever, Night Sweats, Malaise, Weakness, Weight Change, Fatigue Eyes: Denies: Cataracts, Conjunctivae Inflammation, Double vision, Drainage, Redness, Vision Change HEENT: Denies: Difficulty Swallowing, Dysphasia, Ear Pain, Eye Pain, Head Aches, Hearing Changes, Nasal bleeding, Nasal Congestion, Post Nasal Drip Cardiovascular: Denies: Chest Pain, Claudication, Chest Pressure, Chest Tightness, Edema, Heaviness, Palpitations Respiratory: Denies: Cough, Hemoptysis, Pleuritic Pain, Shortness of Breath, Shortness of breath at rest, Shortness of breath upon exertion Gastrointestinal: Denies: Abdominal Pain, Constipation, Diarrhea, Hematemesis, Hematochezia, Nausea, Melena, Vomiting Genitourinary: Denies: Dysuria, Frequency, Hematuria, Hesitancy, Urgency Musculoskeletal: Reports: Foot Pain - Patient has complained of right heel pain times 1 week. Denies: Joint Pain, Joint stiffness, Joint swelling, Joint Tenderness, Leg Pain, Muscle pain, Neck Pain, Shoulder Pain Skin: Reports: Wounds - Patient had a blister on his right heel which burst a week ago. Denies: Dryness, Pruritis, Rash Neurological: Denies: Blurred vision, Double vision, Slurred speech, Difficulty swallowing, Focal weakness, Headaches, Incoordination, Numbness, Tingling Psychiatric: Denies: Anxiety, Depression, Homicidal Ideations, Suicidal Ideations Endocrine: Denies: Change in Body Habitus, Heat/ Cold Intolerance, Polydipsia, Polyuria Hematologic/ Lymphatic: Denies: Adenopathy, Anemia, Easy Bruising, Easy Bleeding, Petechiae, Purpura VTE Information - Inpt Only VTE Present on Admission: No VTE Mechan Device Prophylaxis: None VTE Pharm Prophylaxis ordered?: Yes Patient Problems: Active and Suspected Problems Pain of right heel (Acute) - Physical Exam General: Alert, Oriented x3, Cooperative, No apparent distress, Well developed, Well nourished HEENT: Atraumatic, PERRLA, EOMI, Normocephalic Oral: Moist Mucosa Neck: Supple, No JVD, Negative Carotid Bruits, No Nuchal Rigidity, Trachea Midline, Thyroid Normal Size and Texture Lungs: Clear to auscultation, Normal air movement, No rhonchi, No wheeze, No rales Cardiovascular: Regular rate, Regular Rhythm, Normal S1, Normal S2, No murmurs, No Ectopic Activity, PMI Normal, No rub noted, No Gallop Abdomen: Bowel Sounds Present, Soft, Non Tender, Non-Distended, No hernias noted Extremities: Capillary Refill Less than 3 Seconds, Edema - There is diffuse edema of the right foot +3 mm noted to be present, there is also edema in the left foot to a lesser extent which is +1 mm pitting Skin: No rashes, Ulcer/ Wound - There are eschars located over the patient's right heel and left medial heel, no discharge is noted from either area Musculoskeletal: No Tenderness to Palpation of Joints or Extremities Neurological: Cranial nerves II-XII grossly intact, Neuro grossly intact, Coordination normal Psych/Mental Status: Normal Affect, Appropriate, Alert and oriented to time, place, person, mood and affect Vital Signs Temp Pulse Resp BP Pulse Ox 98.1 F 64 18 148/76 H 91 10/13/18 12:27 10/13/18 15:16 10/13/18 15:16 10/13/18 15:16 10/13/18 15:16 Oxygen Delivery Method Room Air Weight: 113.534 kg Body Mass Index (BMI) 36.9 Finger Stick Blood Glucose 42 Laboratory Tests Past 24 Hrs 10/13/18 10/13/18 13:33 13:33 WBC 9.0 RBC 3.23 L Hgb 8.9 L Hct 28.8 L MCV 89.2 MCH 27.6 MCHC 30.9 L RDW 15.0 H RDW Differential 49.0 H Plt Count 151 MPV 9.6 Immature Gran % (Auto) 0.100 Neut % (Auto) 80.1 H Lymph % (Auto) 9.5 L [place] % (Auto) 7.8 Eos % (Auto) 2.1 Baso % (Auto) 0.4 Absolute Neuts (auto) 7.2 Absolute Lymphs (auto) 0.85 Total Counted Not Reportable Sodium 141 Potassium 4.7 Chloride 101 Carbon Dioxide 31.0 Anion Gap 9 BUN 60 H Creatinine 1.89 H Estim Creat Clear Calc 41.04 Est GFR (MDRD) Af Amer 47 L Est GFR (MDRD) Non-Af 39 L BUN/Creatinine Ratio 31.7 H Glucose 164 H Calcium 8.7 Assessment/Plan All Active Problems Pain of right heel (Acute) Suspected sleep apnea (Acute) #1 deep wound infection of the right heel/possible osteomyelitis-patient will be admitted to [facility], he will be maintained on IV Zosyn and vancomycin, he will be seen in consultation by podiatry, he will need a bone scan due to the fact that he has either a defibrillator or pacemaker (patient is not sure which) which is not compatible with MRI as he has been told. #2 type 2 diabetes-blood sugars will be monitored, patient will be given sliding scale insulin per protocol, he will remain on his home insulin dosage #3 diabetic neuropathy #4 eschar in the left heel-this area does not appear to be reddened or tender #5 coronary artery disease-patient states he has had multiple stents placed in the past as well as coronary artery bypass grafting. 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, patient states this was several years ago Code Visit Inpatient E&M: 37725 Init Hosp L3
--- NOTE | 2018-10-13 16:08 | PCM.RX.CS ---
Consult Pharmacy has been consulted to manage selected antiobiotic: Vancomycin Type of Consult: New start Suspected Infection: Osteomyelitis Labs: Sodium 141 mmol/L (136-145) 10/13/18 13:33 Potassium 4.7 mmol/L (3.5-5.1) 10/13/18 13:33 Chloride 101 mmol/L (98-107) 10/13/18 13:33 Carbon Dioxide 31.0 mmol/L (21.0-32.0) 10/13/18 13:33 Anion Gap 9 (5-15) 10/13/18 13:33 BUN 60 mg/dL (7-18) H 10/13/18 13:33 Creatinine 1.89 mg/dL (0.70-1.30) H 10/13/18 13:33 Est GFR (MDRD) Af Amer 47 mL/min (>60) L 10/13/18 13:33 Est GFR (MDRD) Non-Af 39 mL/min (>60) L 10/13/18 13:33 BUN/Creatinine Ratio 31.7 RATIO (10-20) H 10/13/18 13:33 Glucose 164 mg/dL (74-106) H 10/13/18 13:33 Weight used for dosin lb 1.957 oz Estimated Creatinine Clearance: 41 Goal Trough: 15-20 mcg/mL Pharmacy Plan for Drug Dosing: Pharmacy Service will continue to monitor and adjust dosing as required. Dose ordered in ed was not given prior to patient going to floor. Calculated Dose of 1750mg given 10/13 at 1700 Calculated dose of 1500mg q24h to start 10/14 at 1700 for trough goal of 15-20 Trough will be obtained prior to 3rd dose on 10/15 at 1630 Follow-Up Labs: Trough Vancomycin - 10-15
[2018-10-13] MEDS: Glucerna Shake 120 ML LIQUID PO ×2 (17:09→21:47)
--- NOTE | 2018-10-13 17:30 | ART_ITS ---
Reason For Study: heel ulcers Procedure A bilateral lower extremity continuous wave Doppler with analog waveform analysis,segmental pressures,and ankle brachial indexes without exercise. Left Segmental Pressures Left brachial= 110mmHg. Left posterior tibial artery = Non-Compressible.mmHg. Left dorsalis pedis artery = 129mmHg. Left digit = 96 mmHg. The left dorsalis pedis waveforms are triphasic. The left posterior tibial artery waveforms are triphasic. Right Segmental Pressures Right brachial= 111mmHg. Right posterior tibial artery = 130mmHg. Right dorsalis pedis artery = 138mmHg. Right digit = 117 mmHg. The right posterior tibial artery waveforms are triphasic. The right dorsalis pedis waveforms are biphasic. Indices The right ankle brachial index by the dorsalis pedis is 1.24. The right ankle brachial index by the posterior tibial artery is 1.17. The right digital-brachial index is 1.05. The left ankle brachial index by the dorsalis pedis is 1.16. The left ankle brachial index by the posterior tibial artery is Non-Compressible.. The left digital-brachial index is 0.86. Interpretation Summary Triphasic waveforms are noted at ankle level on the right. Triphasic and biphasic waveforms are noted at ankle level on the left. Resting ankle-brachial indices appear bilaterally normal. Resting digital-brachial indices appear bilaterally normal. There is no evidence of significant arterial occlusive disease. Ordering Physician: Jeremie Blankenship Referring Physician: MER BLANKENSHIP Performed By: Ashlie Bruce RVT, RDCS
[2018-10-13 17:31] LABS: Bedside Glucose 122 mg/dL (70-110)
--- NOTE | 2018-10-13 17:40 | CON.PCM_ITS ---
Reason for Consult Date of Consultation: 10/13/18 Reason for Consultation: Right foot ulcer infection History of Present Illness: The patient is a 62 year old gentleman with history of multiple medical problems including diabetes w/ peripheral neuropathy, heart disease w/ pacemaker and s/p stenting, previous back osteomyelitis, as well as partial finger amputation was seen today for right foot ulceration w/ infection as well as significant crack left heel. Patient relates he developed a blister to the right heel ~1.5 weeks ago, he states he was putting off care of it, but finally decided to come to the ER today. It was noted there was cellulitis, and possible osteomyelitis present - patient was admitted for further management of this. He relates he has has a chronic crack on the left heel, states his PCP in [place] took a look at this, he states it is looking better than it did before. Patient relates his blood sugars are not controlled. He denies any fever, chills, nausea or vomiting. Podiatry was consulted by Dr. Hammond from the ER, as well as Dr. Gunderson from the hospitalist medicine team. Past Medical History Past Medical History (Chronic Problems): Chronic Problems mediport placement (Chronic) Hyperlipidemia (Chronic) DM type 2 (diabetes mellitus, type 2) (Chronic) Chronic CHF (congestive heart failure) (Chronic) ef=25% as of 04/04 Carotid artery stenosis (Chronic) R CEA CAD (coronary artery disease) (Chronic) extensive disease multiple stents Hx of CABG (Chronic) hx epidural abscess (Chronic) Obesity (Chronic) Benign hypertension (Chronic) Allergies metoclopramide HCl [From Reglan] Adverse Reaction (Verified 10/13/18 12:27) goofy, anxious, elevated BP ondansetron HCl [From Zofran] Adverse Reaction (Verified 10/13/18 12:27) goofy, anxious, elevated BP Tfksyfp-Bmz-Vgv Reductase Inhibitor Adverse Reaction (Verified 10/13/18 16:05) rhabdomyolosis Home Medications: Ambulatory Orders Medication Instructions Recorded Clopidogrel Bisulfate [Plavix] 75 mg PO DAILY 02/08/15 Carvedilol [Coreg (Beta Ronald)] 25 mg PO BID 08/11/15 Isosorbide Mononitrate [Imdur] 30 mg PO BID 03/05/16 Tizanidine HCl 8 mg PO TID PRN 05/16/16 Amlodipine [Norvasc] 10 mg PO DAILY 10/13/18 Aspirin 81 mg PO DAILY 10/13/18 Atorvastatin Calcium [Lipitor] 80 mg PO QHS 10/13/18 Bumetanide 3 mg PO BID 10/13/18 Diclofenac [Voltaren] 75 mg PO BIDCM 10/13/18 Duloxetine HCl 30 mg PO DAILY 10/13/18 Ferrous Sulfate [Ferosul] 325 mg PO QODAY 10/13/18 Gabapentin 600 mg PO TID 10/13/18 Hydroxyzine HCl 25 mg PO TID PRN 10/13/18 Insulin Glargine,Hum.rec.anlog 30 unit SC BID 10/13/18 [Basaglar Kwikpen U-100] Melatonin 20 mg PO QHS PRN 10/13/18 Sertraline HCl 100 mg PO DAILY 10/13/18 hydrALAZINE [Apresoline] 25 mg PO TID 10/13/18 Surgical History: appendectomy, cataract, cholecystectomy, coronary bypass surgery - 2004 - [place], herniorrhaphy, tonsillectomy, - - Cardiac stent placement ? (according to patient), right carotid endarterectomy. Psychiatric History: Depression Lives: With Family Smoking Status: Never smoker Tobacco Use: Non-smoker Alcohol: None - *Family History Maternal History Items: No pertinent history Paternal History Items: Heart Disease - of an LA at age 61 Sibling History Items: No pertinent history Review of Systems Constitutional: Denies: Chills, Fever Gastrointestinal: Denies: Nausea, Vomiting Skin: Reports: Wounds Patient Problems: Active and Suspected Problems Pain of right heel (Acute) - Physical Exam General: Alert, Oriented x3, Cooperative, No apparent distress Extremities: No clubbing, No cyanosis, Capillary Refill Less than 3 Seconds, No Calf Tenderness, - - There is ulceration to the posterio heel right foot - there is necrotic nonviable tissue and eschar present with some visible subcutaneous tissue present - there is surrounding erythema c/w cellulitis, there is no streaking up leg, there is no drainage, no fluctuance, no crepitus, no visible abscess - the ulcer measured 3.3cm x 3.3cm prior to debridement - there is no probe to bone or deeper structures, margins with no undermining, there is some edema to the foot; there is also an ulceration / crack to the posterior left heel with nonviable tissue present to the site - measures 3.4cm x 0.5cm prior to debridement down to the subcutaneous tissue, there is no deep probing or tracking - no probe to bone, no visible abscess, no fluctuance, no crepitus, no cellulitis, streaking present, no undermining, no edema present. No other open wounds present bilateral foot/ankle. CFT < 2 seconds to all toes bilateral and appears pedal pulses intact, there is no evidence of acute ischemia to the foot or ankle bilateral. Sensation significantly diminished bilateral foot c/w peripheral neuropathy, motor function intact to the foot/ankle, no evidence of acute or chronic charcot neuroarthropathy present bilateral. Muscle strength intact to the foot/ankle, and muscle mass within normal limits bilateral foot/ankle. No POP or pain on ROM to the foot/ankle bilateral. Musculoskeletal: No Tenderness to Palpation of Joints or Extremities - foot/ankle bilateral., No Muscle Wasting - to the foot/ankle bilateral. Psych/Mental Status: Appropriate, Alert and oriented to time, place, person, mood and affect Vital Signs Temp Pulse Resp BP Pulse Ox 98.1 F 62 20 H 146/79 H 94 10/13/18 16:06 10/13/18 16:06 10/13/18 16:06 10/13/18 16:06 10/13/18 16:06 Oxygen Delivery Method Room Air Weight: 113.534 kg Body Mass Index (BMI) 36.9 Finger Stick Blood Glucose 42 Intake and Output for Last 24 Hours 10/11/18 10/12/18 10/13/18 23:59 23:59 23:59 Intake Total 192 / 192 Balance 192 / 192 Laboratory Tests Past 24 Hrs 10/13/18 10/13/18 13:33 13:33 WBC 9.0 RBC 3.23 L Hgb 8.9 L Hct 28.8 L MCV 89.2 MCH 27.6 MCHC 30.9 L RDW 15.0 H RDW Differential 49.0 H Plt Count 151 MPV 9.6 Immature Gran % (Auto) 0.100 Neut % (Auto) 80.1 H Lymph % (Auto) 9.5 L [place] % (Auto) 7.8 Eos % (Auto) 2.1 Baso % (Auto) 0.4 Absolute Neuts (auto) 7.2 Absolute Lymphs (auto) 0.85 Total Counted Not Reportable Sodium 141 Potassium 4.7 Chloride 101 Carbon Dioxide 31.0 Anion Gap 9 BUN 60 H Creatinine 1.89 H Estim Creat Clear Calc 41.04 Est GFR (MDRD) Af Amer 47 L Est GFR (MDRD) Non-Af 39 L BUN/Creatinine Ratio 31.7 H Glucose 164 H Calcium 8.7 POC Glucose 10/13/18 16:12 POC Glucose 122 H Assessment/Plan All Active Problems Pain of right heel (Acute) Suspected sleep apnea (Acute) Ulcer right heel down to the subcutaneous tissue layer Ulcer/crack left heel down to the subcutaneous tissue layer Cellulitis right heel Diabetes with peripheral neuropathy Reviewed diagnostic data - right foot xrays and labs. The ulceration right heel was debrided in excisional fashion down to the subcutaneous tissue layer using a 15 blade. Post debridement the ulceration right heel measures 3.5cm x 3.5cm and down to the subcutaneous tissue layer, no anesthesia was needed due to patient's peripheral neuropathy, base and margins healthy and viable post debridement - there was no visible abscess or pockets, no fluctuance or crepitus, no purulence, margins intact with no undermining - there is no probe or tracking to bone or deeper structures. Betadine solution and a gauze / margaret dressing applied. Keep offloaded at all times. A culture of the right heel ulceration infection has been obtained and sent to microbiology. Patient is on broad spectrum antibiotics at this time. Blood cultures have been obtained and are pending. Right foot xrays with possible lytic lesion to the calcaneus which may represent osteomyelitis. It appears patient is not able to have an MRI due to his pacemaker, so a bone scan has been ordered for further evaluation. Ulceration/crack left heel: The ulceration was debrided in excisional fashion down to the subcutaneous tissue layer using a 15 blade. Post debridement the ulceration right heel measures 3.5cm x0.8cm and down to the subcutaneous tissue layer, no anesthesia was needed due to patient's peripheral neuropathy, base and margins healthy and viable post debridement - there was no visible abscess or pockets, no fluctuance or crepitus, no purulence, margins intact with no undermi josh - there is no probe or tracking to bone or deeper structures. Betadine solution and a gauze / margaret dressing applied. Keep offloaded at all times. Santyl has been ordered for daily dressing changes. Again advised patient to keep heels offloaded at all times. No weightbearing right foot, ok to weightbear on left forefoot. Reviewed with patient importance of proper diabetic / blood sugar control to optimize healing. Spoke and reviewed with Dr. Gunderson. Podiatry will continue to follow. Thank you for consultation.
[2018-10-13] MEDS: Diclofenac 75 MG Tablet PO (17:43)
[2018-10-13 18:40] LABS: Probe Check PASS; Staph aureus DNA By PCR POSITIVE (Negative)
[2018-10-13 18:42] LABS: M R Staph aureus DNA By PCR POSITIVE (Negative)
--- NOTE | 2018-10-13 20:45 | NURSING ---
While assessing fall risk score and asking pt if he's fallen in the past 3 months, pt states, Actually, I just fell a little while ago. Pt states around 2014, he dropped something on the floor on the side of his bed. He states he was reaching over the side of the bed to retrieve it when he fell onto the floor landing on his knees and hands. Pt states that he got himself back into bed without difficulty and did not alert the staff because it was no big deal. Pt denies pain or injury from fall. Vital signs and neuro checks WNL. adriana Kam RN and Dr. Paredes notified. Bed alarm on and call light within reach.
[2018-10-13] MEDS: Atorvastatin Calcium 80 MG Tablet PO (21:47)
[2018-10-13] MEDS: Bumetanide 2 MG Tablet 3 MG PO (21:47)
[2018-10-13] MEDS: Gabapentin 600 MG Tablet PO (21:47)
[2018-10-13] MEDS: Isosorbide Mononitrate 30 MG Tablet PO (21:47)
[2018-10-13] MEDS: hydrALAZINE 25 MG Tablet PO (21:47)
[2018-10-13] MEDS: Carvedilol 25 MG Tablet PO (21:47)
[2018-10-13] MEDS: Heparin Injection (Vial) 5,000 UNIT/ML VIAL 5000 UNIT SC (21:48)
[2018-10-13] MEDS: HYDROcodone Bitartrate/Apap 5/325 Tablet PO (21:48)
[2018-10-13] MEDS: Insulin Lispro 100 UNIT/ML INSULN.PEN SC (21:48)
[2018-10-13 22:01] LABS: Bedside Glucose 191 mg/dL (70-110)
[2018-10-14] VITALS (15 sets, daily range): BP systolic 110–137; BP diastolic 50–79; PULSE 60–81; RESP 16–21; TEMP 36.8–37.3; O2SAT 93–96
[2018-10-14] MEDS: 0.9% NaCl Peripheral Flush Adult/Peds IV ×8 (02:07→10:03)
--- NOTE | 2018-10-14 02:07 | NURSING ---
Pt c/o nausea, requesting meds for same. Zofran signed out of Accudose and drawn up. After explaining medication to pt, pt states he has an allergy and Zofran affects his BP. Med not given and rinsed down the sink in room. Hospitalist notified of Zofran allergy and requested different nausea med.
[2018-10-14] MEDS: proMETHazine 25 MG/ML Syringe 6.25 MG IV ×3 (02:37→21:38)
--- NOTE | 2018-10-14 03:15 | CPS ---
CALLED BY NURSING TO EVALUATE PT ON PAP. MACHINE ALARMING AND RN UNABLE TO ADJUST MASK TO PT COMFORT. UPON ARRIVAL TO ROOM PT HAS MASK TORN APART, PRESSURE LINE UNHOOKED FROM MASK AND BLUE TAPE WRAPPED AROUND EXHALATION PORT OF TUBING. PT INFORMED THAT HE CAN NOT PUT TAPE THERE AND THAT ALL THE LINES MUST STAY ATTATCHED TO MASK/TUBING. PT VERBALIZES UNDERSTANDING AND A NEW MASK WAS OPENED AND PLACED ON PATIENT.
--- NOTE | 2018-10-14 03:54 | CPS ---
PT PAP CONTINUES TO ALARM AFTER RT ADJUSTED MASK AND TUBING. UPON ENTRANCE TO ROOM, PT HAS MASK OFF AND TORN APART AND THIS TIME MASK IS BROKEN. PT STATED TO RT THAT THE MASK FELL OFF AGAIN. EXPLAINED TO PT THAT HE MUST LEAVE MASK ALONE AND IF HE NEEDS HELP TO CALL. PT VERBALIZES UNDERSTANDING. AT THIS TIME PT WAS PLACED ON 2L NASAL CANNULA WITH HOB ELEVATED. NURSING AWARE.
[2018-10-14] MEDS: HYDROcodone Bitartrate/Apap 5/325 Tablet PO (05:20)
[2018-10-14] MEDS: Gabapentin 600 MG Tablet PO ×3 (05:21→21:36)
[2018-10-14] MEDS: Heparin Injection (Vial) 5,000 UNIT/ML VIAL 5000 UNIT SC ×3 (05:21→21:39)
[2018-10-14] MEDS: Piperacil/Tazobactam 3.375 GM/50 ML ML IV ×3 (05:21→21:39)
[2018-10-14] MEDS: hydrALAZINE 25 MG Tablet PO ×3 (05:21→21:36)
[2018-10-14] MEDS: hydrOXYzine PAM 25 MG Capsule PO (05:34)
[2018-10-14 06:12] LABS: Absolute Lymphocyte Count 0.65 X10^3/ul (0.83-4.51); Absolute Neutrophil Count 9.1 X10^3/uL (2.0-7.7); Basophil# 0.07 X10^3/uL; Basophil% 0.7 % (0-1); Eosinophil# 0.17 X10^3/uL; Eosinophils% 1.6 % (0-5); Hematocrit 27.7 % (40-54); Hemoglobin 8.5 g/dl (13.0-16.5); Lymphocyte # 0.65 X10^3/ul (4.0); Lymphocyte % 6.1 % (19-41); Mean Corp Hgb Conc 30.7 g/gl (32-36); Mean Corpuscular Hgb 27.8 pg (27.0-32.0); Mean Corpuscular Volume 90.5 fL (80-94); Mean Platelet Vol. 10.6 fl (6.2-12.0); Monocyte# 0.68 X10^3/uL; Monocyte% 6.4 % (0-10); Neutrophil # 9.11 X10^3/uL (2.7-7.7); Platelet Count 179 K/mm3 (150-450); RBC Distribution Width CV 15.1 % (11.6-14.6); RBC Distribution Width SD 48.3 fl (35.1-43.9); Red Blood Count 3.06 M/mm3 (4.6-6.2); White Blood Count 10.7 K/mm3 (4.4-11.0)
[2018-10-14 06:13] LABS: POSITIVE COUNT NO; POSITIVE DIFFERENTIAL NO; POSITIVE MORPHOLOGY NO
[2018-10-14 06:40] LABS: Erythrocyte Sedimentation Rate 54 mm/hr (0-20)
[2018-10-14 06:45] LABS: Anion Gap 10 (5-15); BUN 53 mg/dL (7-18); BUN/Creat Ratio 28.2 RATIO (10-20); Calcium,Total 8.4 mg/dL (8.5-10.1); Chloride 102 mmol/L (98-107); Creatinine, Serum 1.88 mg/dL (0.70-1.30); EST Glomerular Filtration Rate 39 mL/min (>60); Est Glom Filt Rate - Afr Amer 47 mL/min (>60); Estimated Creatinine Clearance 41.26 ml/min; Glucose 123 mg/dL (74-106); Potassium 4.2 mmol/L (3.5-5.1); Sodium Level 141 mmol/L (136-145)
[2018-10-14 07:01] LABS: Bedside Glucose 140 mg/dL (70-110)
[2018-10-14] MEDS: Ferrous Sulfate 325 MG Tablet PO (09:03)
[2018-10-14] MEDS: Aspirin 81 MG TAB.CHEW PO (09:03)
[2018-10-14] MEDS: Bumetanide 2 MG Tablet 3 MG PO (09:04)
[2018-10-14] MEDS: Diclofenac 75 MG Tablet PO ×2 (09:04→16:57)
[2018-10-14] MEDS: Carvedilol 25 MG Tablet PO ×2 (09:05→21:38)
[2018-10-14] MEDS: DULoxetine Hcl 30 MG Capsule PO (09:05)
[2018-10-14] MEDS: Isosorbide Mononitrate 30 MG Tablet PO ×2 (09:05→21:36)
[2018-10-14] MEDS: amLODIPine 10 MG Tablet PO (09:05)
[2018-10-14] MEDS: Sertraline 100 MG Tablet PO (09:07)
--- NOTE | 2018-10-14 09:08 | PN_ITS ---
Patient Problems: Active and Suspected Problems Pain of right heel (Acute) Subjective: The patient is a 62-year-old male with a past medical history of hyperlipidemia, diabetes mellitus type 2, systolic congestive heart failure, pacemaker insertion, obstructive sleep apnea, diabetic peripheral polyneuropathy, carotid artery disease (status post right carotid endarterectomy), coronary artery disease with multiple stents, history of CABG, morbid obesity, history of an epidural abscess and hypertension who presented to the emergency department at [facility] on 10/13/2018 complaining of increased pain in his right heel. He had a blister on his right heel approximately 1 week prior to presenting to the emergency room and stated that it burst and since then it was swollen and painful. He was treated with IV vancomycin and Zosyn in the emergency department and admitted to a medical surgical floor. He was seen in consultation by Dr. Chen who debrided the ulceration at the bedside down to the subcutaneous tissue. Culture was obtained and sent to microbiology. Plain x-ray of the heel revealed a lytic lesion which may be secondary to osteomyelitis. Wound culture is already growing Staphylococcus aureus and another gram-positive organism. PCR was positive for MRSA. All events of the past 24 hours been reviewed. Day #2 antibiotics-Zosyn and vancomycin T-max is 99.2 Vital signs are stable he is 96% saturated on a 2 L nasal cannula. All lab was personally reviewed. The hemoglobin is 8.5 today with normochromic normocytic indices and a mildly increased RDW at 15.1. Platelets are within normal limits. Electrolytes are unremarkable and the BUN is 53 with a creatinine of 1.88. Creatinine in 2016 was 1.22. Blood sugars are all less than 200. ESR is 54 and the CRP is 31. He is c/o SOB when lying down. No CP, nausea. He is c/o pain in both heels - Physical Exam General: Alert, Oriented x3, Cooperative, No apparent distress HEENT: Atraumatic, PERRLA, EOMI Oral: Moist Mucosa Neck: Supple, Trachea Midline Lungs: No rhonchi, No wheeze, Diminished, Rales - in the bases with decreased BS's in the bases. Not tachypneic at rest and no conversational dyspnea. Cardiovascular: Regular rate, Regular Rhythm, Normal S1, Normal S2, No rub noted, No Gallop Abdomen: Bowel Sounds Present, Soft, Non Tender, Non-Distended, Obese Extremities: No clubbing, No cyanosis, Edema Skin: No rashes, - - I did not take down the dressings......will try and be ther e when podiatry changes the dressing today Neurological: Cranial nerves II-XII grossly intact, Neuro grossly intact Psych/Mental Status: Normal Affect, Appropriate Vital Signs Temp Pulse Resp BP Pulse Ox 99.2 F H 66 18 137/79 H 96 10/14/18 05:12 10/14/18 05:21 10/14/18 05:12 10/14/18 05:12 10/14/18 07:43 Oxygen Flow Rate (L/min) 2 Oxygen Delivery Method Nasal Cannula Weight: 250 lb 4.8 oz Body Mass Index (BMI) 36.9 Finger Stick Blood Glucose 42 Intake and Output for Last 24 Hours 10/12/18 10/13/18 10/14/18 23:59 23:59 23:59 Intake Total 192 / 192 1422 / 1422 Output Total 725 / 725 450 / 450 Balance -533 / -533 972 / 972 Microbiology Past 72 Hours 10/13/18 17:30 Wound Culture - Preliminary Wound - Right Foot Staphylococcus aureus Gram positive organism Laboratory Tests Past 24 Hrs 10/13/18 10/13/18 10/13/18 13:33 13:33 17:30 WBC 9.0 RBC 3.23 L Hgb 8.9 L Hct 28.8 L MCV 89.2 MCH 27.6 MCHC 30.9 L RDW 15.0 H RDW Differential 49.0 H Plt Count 151 MPV 9.6 Immature Gran % (Auto) 0.100 Neut % (Auto) 80.1 H Lymph % (Auto) 9.5 L [place] % (Auto) 7.8 Eos % (Auto) 2.1 Baso % (Auto) 0.4 Absolute Neuts (auto) 7.2 Absolute Lymphs (auto) 0.85 Total Counted Not Reportable ESR Sodium 141 Potassium 4.7 Chloride 101 Carbon Dioxide 31.0 Anion Gap 9 BUN 60 H Creatinine 1.89 H Estim Creat Clear Calc 41.04 Est GFR (MDRD) Af Amer 47 L Est GFR (MDRD) Non-Af 39 L BUN/Creatinine Ratio 31.7 H Glucose 164 H Calcium 8.7 C-React Prot Ext Range S.aureus Protein A PCR POSITIVE H MRSA (PCR) POSITIVE H 10/14/18 10/14/18 05:20 05:20 WBC 10.7 RBC 3.06 L Hgb 8.5 L Hct 27.7 L MCV 90.5 MCH 27.8 MCHC 30.7 L RDW 15.1 H RDW Differential 48.3 H Plt Count 179 MPV 10.6 Immature Gran % (Auto) 0.200 Neut % (Auto) 85.0 H Lymph % (Auto) 6.1 L [place] % (Auto) 6.4 Eos % (Auto) 1.6 Baso % (Auto) 0.7 Absolute Neuts (auto) 9.1 H Absolute Lymphs (auto) 0.65 L Total Counted Not Reportable ESR 54 H Sodium 141 Potassium 4.2 Chloride 102 Carbon Dioxide 29.0 Anion Gap 10 BUN 53 H Creatinine 1.88 H Estim Creat Clear Calc 41.26 Est GFR (MDRD) Af Amer 47 L Est GFR (MDRD) Non-Af 39 L BUN/Creatinine Ratio 28.2 H Glucose 123 H Calcium 8.4 L C-React Prot Ext Range 31.40 H S.aureus Protein A PCR MRSA (PCR) POC Glucose 10/14/18 10/13/18 10/13/18 06:52 21:38 16:12 POC Glucose 140 H 191 H 122 H Medical Necessity - Tobacco Use Smoking Status: Never smoker Tobacco Use: Non-smoker Assessment/Plan All Active Problems Pain of right heel (Acute) Suspected sleep apnea (Acute) Impression 1. diabetic foot infection R foot - debrided at the bedside by Dr. Chen. 2. possible osteomyelitis. Bone scan ordered 3. Acute on chronic systolic congestive heart failure 4. Cardiomyopathy 5. Diabetes mellitus type 2 6. LISSA 7. History of pacemaker insertion 8. Diabetic peripheral polyneuropathy 9. Carotid artery disease-status post carotid endarterectomy 10. Coronary artery disease with history of stents and CABG 11. Eschar of the left heel-no evidence of cellulitis check a HGBA1C, liver and lipid profiles and MAG Continue the antibiotics. Recheck a BMP in the AM non-weight bearing on the RLE Will likely need a PICC for the [place] bone scan to evaluate for osteomyelitis of the R calcaneus DC the PO Bumex and start Bumex 2 mg IV BID.....he tells me that this works better....continue to monitor the fluid balance Code Visit Inpatient E&M: 46140 Subs Hosp L2
[2018-10-14] MEDS: Clopidogrel Bisulfate 75 MG Tablet PO (09:14)
[2018-10-14] MEDS: Glucerna Shake 120 ML LIQUID PO ×4 (10:01→21:37)
[2018-10-14 10:05] LABS: AST(SGOT) 34 U/L (15-37); Alanine Aminotransfer ALT/SGPT 22 U/L (16-61); Albumin, Serum 2.9 g/dL (3.2-5.0); Alkaline Phosphatase 273 U/L (45-117); Bilirubin, Direct 1.02 mg/dL (0.00-0.30); Cholesterol 69 mg/dL (200); Globulin 4.3 g/dL (2.2-4.2); High Density Lipoprotein 25 mg/dL; Magnesium 2.1 mg/dL (1.6-2.6); Protein, Total 7.2 g/dL (6.4-8.2); Triglycerides 52 mg/dL; Very Low Density Lipoprotein 10 mg/dL (5-40)
[2018-10-14 10:12] LABS: Hemoglobin A1c 12.3 % (4.2-6.3)
[2018-10-14 11:06] LABS: Bedside Glucose 147 mg/dL (70-110)
[2018-10-14] MEDS: tiZANidine HCl 2 MG Tablet 8 MG PO (11:27)
--- NOTE | 2018-10-14 12:30 | PCM.PROGNOTE ---
Patient Problems: Active and Suspected Problems Pain of right heel (Acute) Subjective: Patient was seen today for follow up on bilateral heel ulcers, with right heel infection. He was resting comfortably in bed, no new complaints, he relates today is going much better than yesterday. MRSA DNA PCR was positive for MRSA, cultures growing staph and gram + organism so far, patient afebrile, WBC normal. Patient with no complaints of fever, chills, nausea or vomiting. - Physical Exam General: Alert, Oriented x3, Cooperative, No apparent distress Extremities: No cyanosis, Capillary Refill Less than 3 Seconds, No Calf Tenderness, - - Ulceration to the posterior heel right foot - with mostly granular tissue and viable marings - ulceration is healing well so far, there is some fibrotic tissue to the wound bed, ulcer is done to the subcutaneous tissue layer, cellulitis much improved, there is no streaking up leg, there is no drainage, no fluctuance, no crepitus, no visible abscess, there is no probe to bone or deeper structures, margins with no undermining. Ulceration / crack to the posterior left heel with mostly granular tissue. with mostly granular tissue and viable marings - ulceration is healing well so far, there is some fibrotic tissue to the wound bed, ulcer is done to the subcutaneous tissue layer, cellulitis much improved, there is no streaking up leg, there is no drainage, no fluctuance, no crepitus, no visible abscess, there is no probe to bone or deeper structures, margins with no undermining. No new ulcerations or new areas of infection bilateral foot/ankle. There is some pinkness to the skin overlying the lateral malleolus - likely from pressure - but no break down or blistering present (nursing order placed to change blankets to pillows to provide heel offloaded and pillows will be softer on surrounding skin / tissues). Musculoskeletal: No Tenderness to Palpation of Joints or Extremities - to the foot/ankle bilateral Vital Signs Temp Pulse Resp BP Pulse Ox 99 F 63 16 112/59 L 94 10/14/18 11:05 10/14/18 11:05 10/14/18 11:05 10/14/18 11:05 10/14/18 11:05 Oxygen Flow Rate (L/min) 2 Oxygen Delivery Method Nasal Cannula Weight: 113.534 kg Body Mass Index (BMI) 36.9 Finger Stick Blood Glucose 42 Intake and Output for Last 24 Hours 10/12/18 10/13/18 10/14/18 23:59 23:59 23:59 Intake Total 192 / 192 2071 / 207 Output Total 725 / 725 450 / 450 Balance -533 / -533 1622 / 1622 Microbiology Past 72 Hours 10/13/18 17:30 Gram Stain - Final Wound - Right Foot Wound Culture - Preliminary Staphylococcus aureus Gram positive organism Laboratory Tests Past 24 Hrs 10/13/18 10/13/18 10/13/18 13:33 13:33 17:30 WBC 9.0 RBC 3.23 L Hgb 8.9 L Hct 28.8 L MCV 89.2 MCH 27.6 MCHC 30.9 L RDW 15.0 H RDW Differential 49.0 H Plt Count 151 MPV 9.6 Immature Gran % (Auto) 0.100 Neut % (Auto) 80.1 H Lymph % (Auto) 9.5 L [place] % (Auto) 7.8 Eos % (Auto) 2.1 Baso % (Auto) 0.4 Absolute Neuts (auto) 7.2 Absolute Lymphs (auto) 0.85 Total Counted Not Reportable ESR Sodium 141 Potassium 4.7 Chloride 101 Carbon Dioxide 31.0 Anion Gap 9 BUN 60 H Creatinine 1.89 H Estim Creat Clear Calc 41.04 Est GFR (MDRD) Af Amer 47 L Est GFR (MDRD) Non-Af 39 L BUN/Creatinine Ratio 31.7 H Glucose 164 H Hemoglobin A1c Calcium 8.7 Magnesium Total Bilirubin Direct Bilirubin AST ALT Alkaline Phosphatase C-React Prot Ext Range Total Protein Albumin Globulin Triglycerides Cholesterol LDL Cholesterol VLDL Cholesterol HDL Cholesterol S.aureus Protein A PCR POSITIVE H MRSA (PCR) POSITIVE H 10/14/18 10/14/18 10/14/18 05:20 05:20 05:20 WBC 10.7 RBC 3.06 L Hgb 8.5 L Hct 27.7 L MCV 90.5 MCH 27.8 MCHC 30.7 L RDW 15.1 H RDW Differential 48.3 H Plt Count 179 MPV 10.6 Immature Gran % (Auto) 0.200 Neut % (Auto) 85.0 H Lymph % (Auto) 6.1 L [place] % (Auto) 6.4 Eos % (Auto) 1.6 Baso % (Auto) 0.7 Absolute Neuts (auto) 9.1 H Absolute Lymphs (auto) 0.65 L Total Counted Not Reportable ESR 54 H Sodium 141 Potassium 4.2 Chloride 102 Carbon Dioxide 29.0 Anion Gap 10 BUN 53 H Creatinine 1.88 H Estim Creat Clear Calc 41.26 Est GFR (MDRD) Af Amer 47 L Est GFR (MDRD) Non-Af 39 L BUN/Creatinine Ratio 28.2 H Glucose 123 H Hemoglobin A1c Calcium 8.4 L Magnesium 2.1 Total Bilirubin 1.60 H Direct Bilirubin 1.02 H AST 34 ALT 22 Alkaline Phosphatase 273 H C-React Prot Ext Range 31.40 H Total Protein 7.2 Albumin 2.9 L Globulin 4.3 H Triglycerides 52 Cholesterol 69 LDL Cholesterol 34 VLDL Cholesterol 10 HDL Cholesterol 25 L S.aureus Protein A PCR MRSA (PCR) 10/14/18 05:20 WBC RBC Hgb Hct MCV MCH MCHC RDW RDW Differential Plt Count MPV Immature Gran % (Auto) Neut % (Auto) Lymph % (Auto) [place] % (Auto) Eos % (Auto) Baso % (Auto) Absolute Neuts (auto) Absolute Lymphs (auto) Total Counted ESR Sodium Potassium Chloride Carbon Dioxide Anion Gap BUN Creatinine Estim Creat Clear Calc Est GFR (MDRD) Af Amer Est GFR (MDRD) Non-Af BUN/Creatinine Ratio Glucose Hemoglobin A1c 12.3 H Calcium Magnesium Total Bilirubin Direct Bilirubin AST ALT Alkaline Phosphatase C-React Prot Ext Range Total Protein Albumin Globulin Triglycerides Cholesterol LDL Cholesterol VLDL Cholesterol HDL Cholesterol S.aureus Protein A PCR MRSA (PCR) POC Glucose 10/14/18 10/14/18 10/13/18 10:59 06:52 21:38 POC Glucose 147 H 140 H 191 H 10/13/18 16:12 POC Glucose 122 H Medical Necessity - Tobacco Use Smoking Status: Never smoker Tobacco Use: Non-smoker Assessment/Plan All Active Problems Pain of right heel (Acute) Suspected sleep apnea (Acute) Ulcer right heel down to the subcutaneous tissue layer - healing Ulcer/crack left heel down to the subcutaneous tissue layer - healing Cellulitis right heel - much improved Diabetes with peripheral neuropathy Significant improvement clinical bilateral heels today. Cellulitis has pretty much resolved at this time. Cultures reviewed (so far growing staph aureus and another gram + organism, MRSA + on PCR)- final results pending. Patient is on broad spectrum antibiotics at this time. Blood cultures have been obtained and are pending. Bone scan is pending for further evaluation. Wound care bilateral heels: Santyl with overlying gauze/kerlix and margaret dressing - which was applied today - change daily. Patient to to keep heels offloaded at all times. No weightbearing right foot, ok to weightbear on left forefoot. Lower extremity arterial studies have been ordered - pending. Podiatry will continue to follow.
[2018-10-14] MEDS: Collagenase 30gm Tube 1 APPLIC TOPICAL (13:27)
[2018-10-14] MEDS: Bumetanide 1 MG/4 ML Vial 2 MG IV ×2 (13:28→16:57)
[2018-10-14 14:40] LABS: Bedside Glucose 95 mg/dL (70-110)
[2018-10-14 16:01] LABS: Bedside Glucose 91 mg/dL (70-110)
[2018-10-14] MEDS: Albuterol 2.5 MG/3 ML VIAL.NEB. INHALATION (16:34)
[2018-10-14] MEDS: Atorvastatin Calcium 80 MG Tablet PO (21:37)
[2018-10-14] MEDS: Acetaminophen 325 MG Tablet 650 MG PO (21:38)
[2018-10-14 21:50] LABS: Bedside Glucose 92 mg/dL (70-110)
[2018-10-15 03:30] VITALS: BP 106/57; PULSE 55; RESP 16; TEMP 37; O2SAT 93
[2018-10-15] MEDS: Piperacil/Tazobactam 3.375 GM/50 ML ML IV (05:50)
[2018-10-15] MEDS: Heparin Injection (Vial) 5,000 UNIT/ML VIAL 5000 UNIT SC ×3 (05:50→22:21)
[2018-10-15] MEDS: Gabapentin 600 MG Tablet PO ×3 (05:50→22:21)
[2018-10-15 05:53] VITALS: PULSE 55
--- NOTE | 2018-10-15 06:30 | NM_ITS ---
CLINICAL: 62-year-old male with reported history of bilateral (R > L) hindfoot soft tissue wound formation. LIMITED 99m Tc MDP THREE PHASE BONE SCINTIGRAPHY COMPARISON: Plain film radiograph report right foot 10/13/2018 FINDINGS: Following the intravenous administration of 26.1 mCi of 99m Tc MDP, three-phase bone acquisitions of the distal lower extremities reveal: 1. The flow and immediate static blood pool acquisitions demonstrate relatively symmetric arterial and venous phase distribution of the radiopharmaceutical to the bilateral visualized lower extremities. 2. Delayed images depict increased radiopharmaceutical concentration asymmetrically apparent in the region of the right ankle diffusely, focally defined in the region of the cuboid tarsal bone of the right midfoot and first metatarsal-phalangeal articulation of the right forefoot. 3. The remaining limited skeletal structures are scintigraphically unremarkable. NM/Bone Scan Three Phase IMPRESSION: 1. The increase in radiopharmaceutical concentration asymmetrically defined in the right ankle articulation on late projections only likely represents a component of degenerative arthritis. If infection remains a diagnostic consideration, correlation with gallium imaging or a labeled leukocyte scintigraphy is recommended. 2. Degenerative arthritis appears evident in the right forefoot and midfoot. Electronically Signed: Shalom Clark DO at 13:20 EST Tel , Service support ,
[2018-10-15 06:34] LABS: Anion Gap 11 (5-15); BUN 60 mg/dL (7-18); BUN/Creat Ratio 23.3 RATIO (10-20); Calcium,Total 8.1 mg/dL (8.5-10.1); Chloride 103 mmol/L (98-107); Creatinine, Serum 2.57 mg/dL (0.70-1.30); EST Glomerular Filtration Rate 27 mL/min (>60); Est Glom Filt Rate - Afr Amer 33 mL/min (>60); Estimated Creatinine Clearance 30.18 ml/min; Glucose 84 mg/dL (74-106); Potassium 4.7 mmol/L (3.5-5.1); Sodium Level 138 mmol/L (136-145)
[2018-10-15 06:51] LABS: Bedside Glucose 79 mg/dL (70-110)
[2018-10-15] MEDS: 0.9% Normal Saline 1,000 ML 150 ML IV (08:08)
[2018-10-15] MEDS: Aspirin 81 MG TAB.CHEW PO (08:08)
[2018-10-15] MEDS: Diclofenac 75 MG Tablet PO ×2 (08:08→17:14)
[2018-10-15] MEDS: Collagenase 30gm Tube 1 APPLIC TOPICAL (08:08)
[2018-10-15] MEDS: Sertraline 100 MG Tablet PO (08:11)
[2018-10-15] MEDS: Carvedilol 25 MG Tablet PO ×2 (08:11→22:21)
[2018-10-15] MEDS: DULoxetine Hcl 30 MG Capsule PO (08:11)
[2018-10-15] MEDS: amLODIPine 10 MG Tablet PO (08:11)
[2018-10-15] MEDS: Isosorbide Mononitrate 30 MG Tablet PO ×2 (08:11→22:21)
[2018-10-15] MEDS: Clopidogrel Bisulfate 75 MG Tablet PO (08:14)
--- NOTE | 2018-10-15 08:33 | NURSING ---
wound photo: bilateral heels
[2018-10-15 09:30] VITALS: BP 111/52; PULSE 54; RESP 16; TEMP 36.9; O2SAT 93
--- NOTE | 2018-10-15 10:14 | PCM.PN.HOSP ---
Patient Problems: Active and Suspected Problems Pain of right heel (Acute) Cellulitis of right heel (Acute) AYE (acute kidney injury) (Acute) Subjective: No new complaints. He has neuropathy, so denies any pain in his feet. Vitals/I&O's: Vital Signs Temp Pulse Resp BP Pulse Ox 37.0 C 55 L 16 106/57 L 93 10/15/18 03:30 10/15/18 05:53 10/15/18 03:30 10/15/18 03:30 10/15/18 03:30 Oxygen Flow Rate (L/min) 2 Oxygen Delivery Method Room Air Weight: 113.534 kg Body Mass Index (BMI) 36.9 Finger Stick Blood Glucose 42 Intake and Output for Last 24 Hours 10/13/18 10/14/18 10/15/18 23:59 23:59 23:59 Intake Total 192 / 192 2680 / 2680 1168 / 1168 Output Total 725 / 725 800 / 800 300 / 300 Balance -533 / -533 1880 / 1880 868 / 868 General: Alert, Cooperative, No apparent distress HEENT: Atraumatic, Normocephalic Oral: Moist Mucosa, No Gingival or Mucosal Lesions/ Ulcerations Neck: No Nodes, Thyroid Normal Size and Texture Lungs: Clear to auscultation, Normal air movement, No rhonchi, No wheeze Cardiovascular: Regular rate, Regular Rhythm, Normal S1, Normal S2, No murmurs Abdomen: Bowel Sounds Present, Soft, Non Tender, Non-Distended, No Hepato-splenomegaly Extremities: No edema, Capillary Refill Less than 3 Seconds, No Calf Tenderness Skin: - - per photo by Malathi Cooper showed a stage 2-3 ulcer on right heel about 3cm in diameter. on left heel, a stage 2 ulcer approximately 1x2 cm Musculoskeletal: - - feet and ankles wrapped--did not remove Neurological: - - diminished sensation in toes. Psych/Mental Status: Normal Affect, Appropriate Microbiology Past 72 Hours 10/13/18 17:30 Wound - Right Foot Gram Stain - Final 10/13/18 17:30 Wound - Right Foot Wound Culture - Preliminary Meth. resistant Staph. aureus GPC Poss Enterococcus sp Laboratory Results 10/14/18 10:59: POC Glucose 147 H 10/14/18 14:37: POC Glucose 95 10/14/18 15:54: POC Glucose 91 10/14/18 21:34: POC Glucose 92 10/15/18 05:30: Sodium 138, Potassium 4.7, Chloride 103, Carbon Dioxide 24.0, Anion Gap 11, BUN 60 H, Creatinine 2.57 H, Estim Creat Clear Calc 30.18, Est GFR (MDRD) Af Amer 33 L, Est GFR (MDRD) Non-Af 27 L, BUN/Creatinine Ratio 23.3 H, Glucose 84, Calcium 8.1 L 10/15/18 06:47: POC Glucose 79 Current Medications Acetaminophen (Tylenol) 650 mg PO Q6H PRN PRN PRN Reason: Mild Pain (1-3)/Temp > 100.7 F Last Admin: 10/14/18 21:38 Dose: 650 mg Hydrocodone Bitart/Acetaminophen ([place] 5mg-325mg) 2 tablet PO Q6H PRN PRN PRN Reason: SEVERE PAIN (6-10/10) Last Admin: 10/14/18 05:20 Dose: 2 tablet Albuterol Sulfate (Ventolin Aerosols) 2.5 mg INHALATION Q2H PRN PRN PRN Reason: DYSPNEA Last Admin: 10/14/18 16:34 Dose: 2.5 mg Amlodipine Besylate (Norvasc) 10 mg PO DAILY [facility] Last Admin: 10/15/18 08:11 Dose: 10 mg Aspirin (Aspirin, Baby) 81 mg PO DAILY@0800 [facility] Last Admin: 10/15/18 08:08 Dose: 81 mg Atorvastatin Calcium (Lipitor) 80 mg PO QHS [facility] Last Admin: 10/14/18 21:37 Dose: 80 mg Carvedilol (Coreg) 25 mg PO BID [facility] Last Admin: 10/15/18 08:11 Dose: 25 mg Clopidogrel Bisulfate (Plavix) 75 mg PO DAILY [facility] Last Admin: 10/15/18 08:14 Dose: 75 mg Collagenase (Santyl) 1 applic TOPICAL DAILY [facility]; Protocol Last Admin: 10/15/18 08:08 Dose: 1 applicatio [facility]icl[facility]enac [facility] ([facility] Last Admin: 10/15/18 08:08 Dose: 75 mg Duloxetine HCl (Cymbalta) 30 mg PO DAILY [facility] Last Admin: 10/15/18 08:11 Dose: 30 mg Ferrous Sulfate (Ferrous Sulfate) 325 mg PO QODAY@0800 [facility] Last Admin: 10/14/18 09:03 Dose: 325 mg Gabapentin (Neurontin) 600 mg PO TID [facility] Last Admin: 10/15/18 05:50 Dose: 600 mg Heparin Sodium (Porcine) (Heparin Na) 5,000 unit SC Q8 [facility] Last Admin: 10/15/18 05:50 Dose: 5,000 unit Hydralazine HCl (Apresoline) 25 mg PO TID [facility] Last Admin: 10/15/18 05:53 Dose: Not Given Hydroxyzine Pamoate (Vistaril Pamoate Capsule) 25 mg PO TID PRN PRN PRN Reason: ANXIETY Last Admin: 10/14/18 05:34 Dose: 25 mg Vancomycin IV Pharmacy to Dose (1 ea/ Sodium Chloride) 500 mls @ 250 mls/hr IV X1 PRN; Protocol PRN Reason: Rx to Dose Vancomycin HCl 1,500 mg/ (Sodium Chloride) 530 mls @ 250 mls/hr IV Q24H [facility] Last Admin: 10/14/18 17:41 Dose: 250 mls/hr Sodium Chloride () 1,000 mls @ 150 mls/hr IV .Q6H40M [facility] Stop: 10/15/18 14:19 Last Admin: 10/15/18 08:08 Dose: 150 mls/hr Insulin Glargine (Lantus (Bkc)) 30 units SC BID [facility] Last Admin: 10/14/18 21:37 Dose: 30 u Insulin Human Lispro (Humalog Kwikpen (Bkc)) 0 unit SC ACHS [facility]; Protocol Last Admin: 10/15/18 06:59 Dose: Not Given Isosorbide Mononitrate (Imdur) 30 mg PO BID [facility] Last Admin: 10/15/18 08:11 Dose: 30 mg Melatonin (Melatonin) 20 mg PO QHS PRN PRN Reason: SLEEP Nutritional Formula (Lactose Free) (Glucerna Shake) 120 ml PO 4X/DAY [facility] Last Admin: 10/14/18 21:37 Dose: 120 ml Promethazine HCl (Phenergan) 6.25 mg IV Q6H PRN PRN PRN Reason: NAUSEA/VOMITING Last Admin: 10/14/18 21:38 Dose: 6.25 mg Sertraline HCl (Zoloft) 100 mg PO DAILY [facility] Last Admin: 10/15/18 08:11 Dose: 100 mg Sodium Chloride () 5 - 15 ml IV UD PRN PRN Reason: SALINE FLUSH Last Admin: 10/14/18 10:03 Dose: 10 ml Tizanidine HCl (Zanaflex) 8 mg PO TID PRN PRN Reason: SPASMS Last Admin: 10/14/18 11:27 Dose: 8 mg Medical Necessity - Tobacco Use Smoking Status: Never smoker Tobacco Use: Non-smoker Assessment/Plan All Active Problems Pain of right heel (Acute) Cellulitis of right heel (Acute) AYE (acute kidney injury) (Acute) 1. Heel cellulitis concern for OM bone scan ordered culture + for MRSA continue vanc, DC zosyn podiatry following ID consult given the MRSA and now AYE Lower extremity duplex ordered. 2. AYE new on CKD 3 suspect d/t vanc v Bumex or combination IVF check urine studies. 3. DM2 fair control continue lantus and SSI. 4. HFrEF EF 40% from 2014 compensated at this time. continue carvedilol, hydralazine, imdur not candidate for ACEi/ARB given AYE 5. DVT proph: SQ heparin. Code Visit Inpatient E&M: 67938 Subs Hosp L2
[2018-10-15] MEDS: Glucerna Shake 120 ML LIQUID PO ×4 (10:20→22:29)
[2018-10-15] MEDS: proMETHazine 25 MG/ML Syringe 6.25 MG IV ×2 (10:20→20:24)
--- NOTE | 2018-10-15 10:25 | PN_ITS ---
Patient Problems: Active and Suspected Problems Pain of right heel (Acute) Cellulitis of right heel (Acute) AYE (acute kidney injury) (Acute) Subjective: No new complaints. He has neuropathy, so denies any pain in his feet. Vitals/I&O's: Vital Signs Temp Pulse Resp BP Pulse Ox 37.0 C 55 L 16 106/57 L 93 10/15/18 03:30 10/15/18 05:53 10/15/18 03:30 10/15/18 03:30 10/15/18 03:30 Oxygen Flow Rate (L/min) 2 Oxygen Delivery Method Room Air Weight: 113.534 kg Body Mass Index (BMI) 36.9 Finger Stick Blood Glucose 42 Intake and Output for Last 24 Hours 10/13/18 10/14/18 10/15/18 23:59 23:59 23:59 Intake Total 192 / 192 2680 / 2680 1168 / 1168 Output Total 725 / 725 800 / 800 300 / 300 Balance -533 / -533 1880 / 1880 868 / 868 General: Alert, Cooperative, No apparent distress HEENT: Atraumatic, Normocephalic Oral: Moist Mucosa, No Gingival or Mucosal Lesions/ Ulcerations Neck: No Nodes, Thyroid Normal Size and Texture Lungs: Clear to auscultation, Normal air movement, No rhonchi, No wheeze Cardiovascular: Regular rate, Regular Rhythm, Normal S1, Normal S2, No murmurs Abdomen: Bowel Sounds Present, Soft, Non Tender, Non-Distended, No Hepato- splenomegaly Extremities: No edema, Capillary Refill Less than 3 Seconds, No Calf Tenderness Skin: - - per photo by Malathi Cooper showed a stage 2-3 ulcer on right heel about 3cm in diameter. on left heel, a stage 2 ulcer approximately 1x2 cm Musculoskeletal: - - feet and ankles wrapped--did not remove Neurological: - - diminished sensation in toes. Psych/Mental Status: Normal Affect, Appropriate Microbiology Past 72 Hours 10/13/18 17:30 Wound - Right Foot Gram Stain - Final 10/13/18 17:30 Wound - Right Foot Wound Culture - Preliminary Meth. resistant Staph. aureus GPC Poss Enterococcus sp Laboratory Results 10/14/18 10:59: POC Glucose 147 H 10/14/18 14:37: POC Glucose 95 10/14/18 15:54: POC Glucose 91 10/14/18 21:34: POC Glucose 92 10/15/18 05:30: Sodium 138, Potassium 4.7, Chloride 103, Carbon Dioxide 24.0, Anion Gap 11, BUN 60 H, Creatinine 2.57 H, Estim Creat Clear Calc 30.18, Est GFR (MDRD) Af Amer 33 L, Est GFR (MDRD) Non-Af 27 L, BUN/Creatinine Ratio 23.3 H, Glucose 84, Calcium 8.1 L 10/15/18 06:47: POC Glucose 79 Current Medications Acetaminophen (Tylenol) 650 mg PO Q6H PRN PRN PRN Reason: Mild Pain (1-3)/Temp > 100.7 F Last Admin: 10/14/18 21:38 Dose: 650 mg Hydrocodone Bitart/Acetaminophen ([place] 5mg-325mg) 2 tablet PO Q6H PRN PRN PRN Reason: SEVERE PAIN (6-10/10) Last Admin: 10/14/18 05:20 Dose: 2 tablet Albuterol Sulfate (Ventolin Aerosols) 2.5 mg INHALATION Q2H PRN PRN PRN Reason: DYSPNEA Last Admin: 10/14/18 16:34 Dose: 2.5 mg Amlodipine Besylate (Norvasc) 10 mg PO DAILY [facility] Last Admin: 10/15/18 08:11 Dose: 10 mg Aspirin (Aspirin, Baby) 81 mg PO DAILY@0800 [facility] Last Admin: 10/15/18 08:08 Dose: 81 mg Atorvastatin Calcium (Lipitor) 80 mg PO QHS [facility] Last Admin: 10/14/18 21:37 Dose: 80 mg Carvedilol (Coreg) 25 mg PO BID [facility] Last Admin: 10/15/18 08:11 Dose: 25 mg Clopidogrel Bisulfate (Plavix) 75 mg PO DAILY [facility] Last Admin: 10/15/18 08:14 Dose: 75 mg Collagenase (Santyl) 1 applic TOPICAL DAILY [facility]; Protocol Last Admin: 10/15/18 08:08 Dose: 1 applicatio [facility] Last Admin: 10/15/18 08:08 Dose: 75 mg Duloxetine HCl (Cymbalta) 30 mg PO DAILY [facility] Last Admin: 10/15/18 08:11 Dose: 30 mg Ferrous Sulfate (Ferrous Sulfate) 325 mg PO QODAY@0800 [facility] Last Admin: 10/14/18 09:03 Dose: 325 mg Gabapentin (Neurontin) 600 mg PO TID [facility] Last Admin: 10/15/18 05:50 Dose: 600 mg Heparin Sodium (Porcine) (Heparin Na) 5,000 unit SC Q8 [facility] Last Admin: 10/15/18 05:50 Dose: 5,000 unit Hydralazine HCl (Apresoline) 25 mg PO TID [facility] Last Admin: 10/15/18 05:53 Dose: Not Given Hydroxyzine Pamoate (Vistaril Pamoate Capsule) 25 mg PO TID PRN PRN PRN Reason: ANXIETY Last Admin: 10/14/18 05:34 Dose: 25 mg Vancomycin IV Pharmacy to Dose (1 ea/ Sodium Chloride) 500 mls @ 250 mls/hr IV X1 PRN; Protocol PRN Reason: Rx to Dose Vancomycin HCl 1,500 mg/ (Sodium Chloride) 530 mls @ 250 mls/hr IV Q24H [facility] Last Admin: 10/14/18 17:41 Dose: 250 mls/hr Sodium Chloride () 1,000 mls @ 150 mls/hr IV .Q6H40M [facility] Stop: 10/15/18 14:19 Last Admin: 10/15/18 08:08 Dose: 150 mls/hr Insulin Glargine (Lantus (Bkc)) 30 units SC BID [facility] Last Admin: 10/14/18 21:37 Dose: 30 u Insulin Human Lispro (Humalog Kwikpen (Bkc)) 0 unit SC ACHS [facility]; Protocol Last Admin: 10/15/18 06:59 Dose: Not Given Isosorbide Mononitrate (Imdur) 30 mg PO BID [facility] Last Admin: 10/15/18 08:11 Dose: 30 mg Melatonin (Melatonin) 20 mg PO QHS PRN PRN Reason: SLEEP Nutritional Formula (Lactose Free) (Glucerna Shake) 120 ml PO 4X/DAY [facility] Last Admin: 10/14/18 21:37 Dose: 120 ml Promethazine HCl (Phenergan) 6.25 mg IV Q6H PRN PRN PRN Reason: NAUSEA/VOMITING Last Admin: 10/14/18 21:38 Dose: 6.25 mg Sertraline HCl (Zoloft) 100 mg PO DAILY [facility] Last Admin: 10/15/18 08:11 Dose: 100 mg Sodium Chloride () 5 - 15 ml IV UD PRN PRN Reason: SALINE FLUSH Last Admin: 10/14/18 10:03 Dose: 10 ml Tizanidine HCl (Zanaflex) 8 mg PO TID PRN PRN Reason: SPASMS Last Admin: 10/14/18 11:27 Dose: 8 mg Medical Necessity - Tobacco Use Smoking Status: Never smoker Tobacco Use: Non-smoker Assessment/Plan All Active Problems Pain of right heel (Acute) Cellulitis of right heel (Acute) AYE (acute kidney injury) (Acute) 1. Heel cellulitis * concern for OM * bone scan ordered * culture + for MRSA * continue vanc, DC zosyn * podiatry following * ID consult given the MRSA and now AYE * Lower extremity duplex ordered. 2. AYE * new * on CKD 3 * suspect d/t vanc v Bumex or combination * IVF * check urine studies. 3. DM2 * fair control * continue lantus and SSI. 4. HFrEF * EF 40% from 2014 * compensated at this time. * continue carvedilol, hydralazine, imdur * not candidate for ACEi/ARB given AYE 5. DVT proph: SQ heparin. Code Visit Inpatient E&M: 44658 Subs Hosp L2
[2018-10-15 11:21] LABS: Bedside Glucose 142 mg/dL (70-110)
--- NOTE | 2018-10-15 12:45 | CASEMGMT ---
BRITTANY SOTO ASSESSMENT Face to Face with patient for initial transition planning/care coordination assessment. BRITTANY SOTO introduced self and role at [facility]. Pt voices understanding and consents to assessment at this time. Pt resting in bed in no distress at this time. Pt is A/O at this time and answers all questions appropriately. Care providers, pharmacy, and demographics verified/updated at this time. PCP: Carlos Hollingsworth Specialists: [employer] in [place] [facility]erred [facility] Prescription Benefit: Yes Living Will/HPOA: has both LW and HCPOA, which is his daughter, Lorie. Pt states he does not know where the paperwork is since he just moved and doesn't know if he can find them. Pt inquired about having new forms completed and states would like to talk to SW. Laury GUERRERO, notified. Living Arrangements:DaughterLorie, lives with him in one-story home, no stairs to enter. was independent with ADL's prior to admission. DaughterLorie, helps with meals. Transportation: Pt states drives self and states no transportation concerns at this time. Lorie Davila can help with transportation if needed. DME: has the following DME: Shower chair, hospital bed, grab bars in shower, rollator, and CPAP. Pt states no need for further DME at this time. Pt does not have a W/C and does not want one at this time, HHC/SNF: Has used [facility] in the past and has been to [facility]. Pt wishes to return home @ discharge. Agreeable to [facility] for therapy and chcf. Will need dressing changes and awaiting I.D consult. Pt may need IV antibiotics on d/c. States no preference of [facility] agency. Pt states does not smoke or drink ETOH. CM to follow any further discharge planning/needs. Pt voices no further concerns/needs at this time. Advised pt to ask for CM if any further questions/concerns/needs arise. Voices understanding. Plan: Home with [facility] Anson MENDOZA RN, CM
--- NOTE | 2018-10-15 14:06 | PCM.HP.ID ---
Problem List (1) Cellulitis of right heel Status: Acute Reason for Consult: mrsa infection Consulted by: Dr. Alvarez History of Present Illness: The patient is a 62 year old M with DM neuropathy who presented with 2-3 weeks of progressive R heel infection. Started with blister, developed dull pain, some redness/swelling/drainage. No fever or chills. No n/v/d. Came to ED, started on vanc/zosyn and given dose of clinda. Cxs sent. Abx now narrowed to vanc. Feeling better. Bone scan done. Will follow, thank you. - Medical History Past Medical History (Chronic Problems): Chronic Problems mediport placement (Chronic) Hyperlipidemia (Chronic) DM type 2 (diabetes mellitus, type 2) (Chronic) Chronic CHF (congestive heart failure) (Chronic) ef=25% as of 04/04 Carotid artery stenosis (Chronic) R CEA CAD (coronary artery disease) (Chronic) extensive disease multiple stents Hx of CABG (Chronic) hx epidural abscess (Chronic) Obesity (Chronic) Benign hypertension (Chronic) Allergies/Adverse Reactions: Allergies metoclopramide HCl [From Reglan] Adverse Reaction (Verified 10/13/18 12:27) goofy, anxious, elevated BP ondansetron HCl [From Zofran] Adverse Reaction (Verified 10/13/18 12:27) goofy, anxious, elevated BP Goxiwlf-Loz-Pzk Reductase Inhibitor Adverse Reaction (Verified 10/13/18 16:05) rhabdomyolosis Home Medications: Ambulatory Orders Medication Instructions Recorded Clopidogrel Bisulfate [Plavix] 75 mg PO DAILY 02/08/15 Carvedilol [Coreg (Beta Ronald)] 25 mg PO BID 08/11/15 Isosorbide Mononitrate [Imdur] 30 mg PO BID 03/05/16 Tizanidine HCl 8 mg PO TID PRN 03/05/16 Amlodipine [Norvasc] 10 mg PO DAILY 10/13/18 Aspirin 81 mg PO DAILY 10/13/18 Atorvastatin Calcium [Lipitor] 80 mg PO QHS 10/13/18 Bumetanide 3 mg PO BID 10/13/18 Diclofenac [Voltaren] 75 mg PO BIDCM 10/13/18 Duloxetine HCl 30 mg PO DAILY 10/13/18 Ferrous Sulfate [Ferosul] 325 mg PO QODAY 10/13/18 Gabapentin 600 mg PO TID 10/13/18 Hydroxyzine HCl 25 mg PO TID PRN 10/13/18 Insulin Glargine,Hum.rec.anlog 30 unit SC BID 10/13/18 [Basaglar Kwikpen U-100] Melatonin 20 mg PO QHS PRN 10/13/18 Sertraline HCl 100 mg PO DAILY 10/13/18 hydrALAZINE [Apresoline] 25 mg PO TID 10/13/18 - Social History Tobacco Use: non-smoker Vital Signs Temp Pulse Resp BP Pulse Ox 98.4 F 54 L 16 111/52 L 93 10/15/18 09:30 10/15/18 09:30 10/15/18 09:30 10/15/18 09:30 10/15/18 09:30 Oxygen Flow Rate (L/min) 2 Oxygen Delivery Method Room Air Weight: 113.534 kg Body Mass Index (BMI) 36.9 Finger Stick Blood Glucose 42 Microbiology Past 72 Hours 10/13/18 13:10 Blood Culture - Preliminary Blood Culture (Wb) - Right Hand No growth in 48 hours. 10/13/18 13:33 Blood Culture - Preliminary Blood Culture (Wb) - Left Hand No growth in 48 hours. 10/13/18 17:30 Gram Stain - Final Wound - Right Foot Wound Culture - Preliminary Meth. resistant Staph. aureus GPC Poss Enterococcus sp Laboratory Tests Past 24 Hrs 10/15/18 05:30 Sodium 138 Potassium 4.7 Chloride 103 Carbon Dioxide 24.0 Anion Gap 11 BUN 60 H Creatinine 2.57 H Estim Creat Clear Calc 30.18 Est GFR (MDRD) Af Amer 33 L Est GFR (MDRD) Non-Af 27 L BUN/Creatinine Ratio 23.3 H Glucose 84 Calcium 8.1 L - Other Studies Radiology: [] reviewed Other Studies: [] Route of nutrition/ use of supplements: [] Nutritional Intake: [] IV Site: [] Corea Catheter: [] - Physical Exam General: Alert, Oriented x3, Cooperative, No apparent distress HEENT: Atraumatic, PERRLA, EOMI Neck: Supple, No Nodes Lungs: Clear to auscultation, Normal air movement Cardiovascular: Regular rate, Regular Rhythm, No murmurs Abdomen: Soft, Non Tender, Non-Distended Extremities: Edema - mild Skin: Ulcer/ Wound - reviewed photos of B heels Musculoskeletal: No Tenderness to Palpation of Joints or Extremities Neurological: Cranial nerves II-XII grossly intact, - - peripheral neuropathy - Assessment/Plan Antibiotics: [] Assessment/Plan: [] Active and Suspected Problems AYE (acute kidney injury) (Acute) Pain of right heel (Acute) Cellulitis of right heel (Acute) MRSA and enterococcus R heel infected ulcer with DM neuropathy - Worsening AYE, urine studies sent. Vanc level to be done today. Will stop vanc, start po levaquin. Not a candidate for linezolid as he is on 2 SSRIs. Will follow, thank you.
--- NOTE | 2018-10-15 14:14 | CASEMGMT ---
Pt wanted to complete POA papers. SW assisted pt in completing POA papers, gave pt the original and a copy, and placed a copy on the chart. LOLY Ortega MSW
[2018-10-15 14:46] VITALS: PULSE 84
[2018-10-15] MEDS: hydrALAZINE 25 MG Tablet PO (14:46)
[2018-10-15] MEDS: levoFLOXacin 500 MG Tablet PO (14:50)
[2018-10-15 15:30] VITALS: BP 107/57; PULSE 55; RESP 16; TEMP 36.7; O2SAT 94
[2018-10-15] MEDS: Insulin Lispro 100 UNIT/ML INSULN.PEN SC ×2 (17:05→22:22)
[2018-10-15 17:11] LABS: Bedside Glucose 203 mg/dL (70-110)
[2018-10-15 17:32] LABS: Vancomycin, Trough Level 20.3 ug/mL (5.0-15.0)
--- NOTE | 2018-10-15 18:01 | PCM.PROGNOTE ---
Patient Problems: Active and Suspected Problems AYE (acute kidney injury) (Acute) Pain of right heel (Acute) Cellulitis of right heel (Acute) Subjective: Patient being followed for bilateral heel ulcerations with infection right, patient had bone scan today, was also seen and evaluated by Infectious disease. Patient with no new complaints. No complaints of fever, chills, nausea or vomiting. - Physical Exam General: Alert, Oriented x3, Cooperative, No apparent distress Extremities: - - Heels ulcers are healing well with healthy viable tissue. Vital Signs Temp Pulse Resp BP Pulse Ox 98.0 F 55 L 16 107/57 L 94 10/15/18 15:30 10/15/18 15:30 10/15/18 15:30 10/15/18 15:30 10/15/18 15:30 Oxygen Flow Rate (L/min) 2 Oxygen Delivery Method Room Air Weight: 113.534 kg Body Mass Index (BMI) 36.9 Finger Stick Blood Glucose 42 Intake and Output for Last 24 Hours 10/13/18 10/14/18 10/15/18 23:59 23:59 23:59 Intake Total 192 / 192 2680 / 2680 2219 / 2219 Output Total 725 / 725 800 / 800 300 / 300 Balance -533 / -533 1880 / 1880 191 / 191 Microbiology Past 72 Hours 10/13/18 13:10 Blood Culture - Preliminary Blood Culture (Wb) - Right Hand No growth in 48 hours. 10/13/18 13:33 Blood Culture - Preliminary Blood Culture (Wb) - Left Hand No growth in 48 hours. 10/13/18 17:30 Gram Stain - Final Wound - Right Foot Wound Culture - Preliminary Meth. resistant Staph. aureus GPC Poss Enterococcus sp Laboratory Tests Past 24 Hrs 10/15/18 10/15/18 10/15/18 05:30 15:30 16:45 Eos Smear Total Cells Pending Sodium 138 Potassium 4.7 Chloride 103 Carbon Dioxide 24.0 Anion Gap 11 BUN 60 H Creatinine 2.57 H Estim Creat Clear Calc 30.18 Est GFR (MDRD) Af Amer 33 L Est GFR (MDRD) Non-Af 27 L BUN/Creatinine Ratio 23.3 H Glucose 84 Calcium 8.1 L Vancomycin Trough 20.3 H POC Glucose 10/15/18 10/15/18 10/15/18 17:01 10:25 06:47 POC Glucose 203 H 142 H 79 10/14/18 21:34 POC Glucose 92 Medical Necessity - Tobacco Use Smoking Status: Never smoker Tobacco Use: Non-smoker Assessment/Plan All Active Problems AYE (acute kidney injury) (Acute) Pain of right heel (Acute) Cellulitis of right heel (Acute) Ulcer right heel down to the subcutaneous tissue layer - healing Ulcer/crack left heel down to the subcutaneous tissue layer - healing Cellulitis right heel - MRSA - much improved Diabetes with peripheral neuropathy Bone scan reviewed. Noted increased signal to the right ankle, cuboid and 1st MTPJ, more c/w degenerative arthritic change, no specific signal to the calcaneus to indicate osteomyelitis - given these findings along with no probe or tracking to bone clinically not consistent with osteomyelitis at this time. Patient is also being followed by Infectious Disease who is managing antibiotics. Continue with wound care bilateral heels: Santyl with overlying gauze/kerlix and margaret dressing - change daily. Patient to to keep heels offloaded at all times. No weightbearing right foot, ok to weightbear on left forefoot. Lower extremity arterial studies have been ordered - appears to have good arterial flow to foot, formal vascular read pending. Discussed and reviewed with patient. Podiatry will continue to follow.
[2018-10-15] MEDS: 0.9% NaCl Peripheral Flush Adult/Peds IV (20:31)
[2018-10-15 20:37] VITALS: BP 143/74; PULSE 59; RESP 16; TEMP 37.1; O2SAT 94
[2018-10-15] MEDS: Atorvastatin Calcium 80 MG Tablet PO (22:21)
[2018-10-15 22:36] LABS: Bedside Glucose 175 mg/dL (70-110)
[2018-10-16] VITALS (10 sets, daily range): BP systolic 127–144; BP diastolic 64–73; PULSE 58–88; RESP 16–18; TEMP 36.7–37; O2SAT 92–95
[2018-10-16] MEDS: Gabapentin 600 MG Tablet PO ×3 (06:35→23:01)
[2018-10-16] MEDS: levoFLOXacin 250 MG Tablet PO (06:35)
[2018-10-16] MEDS: Heparin Injection (Vial) 5,000 UNIT/ML VIAL 5000 UNIT SC ×3 (06:35→23:02)
[2018-10-16 06:45] LABS: Bedside Glucose 84 mg/dL (70-110)
[2018-10-16 06:51] LABS: Absolute Lymphocyte Count 0.92 X10^3/ul (0.83-4.51); Basophil# 0.03 X10^3/uL; Basophil% 0.3 % (0-1); Eosinophil# 0.32 X10^3/uL; Eosinophils% 3.4 % (0-5); Hematocrit 29.4 % (40-54); Lymphocyte # 0.92 X10^3/ul (4.0); Lymphocyte % 9.8 % (19-41); Mean Corp Hgb Conc 30.6 g/gl (32-36); Mean Corpuscular Hgb 27.9 pg (27.0-32.0); Mean Platelet Vol. 10.6 fl (6.2-12.0); Monocyte% 11.7 % (0-10); Neutrophil # 7.02 X10^3/uL (2.7-7.7); Neutrophil % 74.6 % (47-70); Platelet Count 165 K/mm3 (150-450); RBC Distribution Width CV 15.6 % (11.6-14.6); RBC Distribution Width SD 50.8 fl (35.1-43.9); Red Blood Count 3.23 M/mm3 (4.6-6.2); White Blood Count 9.4 K/mm3 (4.4-11.0)
[2018-10-16 06:53] LABS: POSITIVE COUNT NO; POSITIVE DIFFERENTIAL NO; POSITIVE MORPHOLOGY NO
[2018-10-16 07:02] LABS: Anion Gap 11 (5-15); BUN 69 mg/dL (7-18); BUN/Creat Ratio 22.8 RATIO (10-20); Calcium,Total 8.6 mg/dL (8.5-10.1); Chloride 103 mmol/L (98-107); Creatinine, Serum 3.02 mg/dL (0.70-1.30); EST Glomerular Filtration Rate 23 mL/min (>60); Est Glom Filt Rate - Afr Amer 27 mL/min (>60); Estimated Creatinine Clearance 25.69 ml/min; Glucose 83 mg/dL (74-106); Potassium 4.9 mmol/L (3.5-5.1); Sodium Level 139 mmol/L (136-145)
[2018-10-16 07:14] LABS: Urea Nitrogen, Urine 378 mg/dL (NO RANGE EST.)
[2018-10-16] MEDS: proMETHazine 25 MG/ML Syringe 6.25 MG IV ×2 (07:23→20:44)
[2018-10-16] MEDS: Collagenase 30gm Tube 1 APPLIC TOPICAL (08:09)
--- NOTE | 2018-10-16 08:24 | PCM.PROGNOTE ---
Patient Problems: Active and Suspected Problems AYE (acute kidney injury) (Acute) Pain of right heel (Acute) Cellulitis of right heel (Acute) Subjective: Patient seen today for follow up bilateral heel ulcerations. He relates overall he is doing well, but relates has not urinated in 3 days. Otherwise he has no new complaints, no complaints of fever, chills, nausea or vomiting. - Physical Exam General: Alert, Oriented x3, Cooperative, No apparent distress Vital Signs Temp Pulse Resp BP Pulse Ox 98.0 F 58 L 16 144/72 H 94 10/16/18 02:27 10/16/18 06:35 10/16/18 02:27 10/16/18 02:27 10/16/18 08:03 Oxygen Flow Rate (L/min) 2 Oxygen Delivery Method Room Air Weight: 113.534 kg Body Mass Index (BMI) 36.9 Finger Stick Blood Glucose 42 Intake and Output for Last 24 Hours 10/14/18 10/15/18 10/16/18 23:59 23:59 23:59 Intake Total 2680 / 2680 2219 / 2219 600 / 600 Output Total 800 / 800 300 / 300 Balance 1880 / 1880 1919 / 1919 600 / 600 Microbiology Past 72 Hours 10/13/18 17:30 Gram Stain - Final Wound - Right Foot Wound Culture - Final Meth. resistant Staph. aureus Enterococcus faecalis 10/13/18 13:10 Blood Culture - Preliminary Blood Culture (Wb) - Right Hand No growth in 48 hours. 10/13/18 13:33 Blood Culture - Preliminary Blood Culture (Wb) - Left Hand No growth in 48 hours. Laboratory Tests Past 24 Hrs 10/15/18 10/15/18 10/16/18 15:30 16:45 06:08 WBC 9.4 RBC 3.23 L Hgb 9.0 L Hct 29.4 L MCV 91.0 MCH 27.9 MCHC 30.6 L RDW 15.6 H RDW Differential 50.8 H Plt Count 165 MPV 10.6 Immature Gran % (Auto) 0.200 Neut % (Auto) 74.6 H Lymph % (Auto) 9.8 L [place] % (Auto) 11.7 H Eos % (Auto) 3.4 Baso % (Auto) 0.3 Absolute Neuts (auto) 7.0 Absolute Lymphs (auto) 0.92 Total Counted Not Reportable Eos Smear Total Cells Pending Sodium Potassium Chloride Carbon Dioxide Anion Gap BUN Creatinine Estim Creat Clear Calc Est GFR (MDRD) Af Amer Est GFR (MDRD) Non-Af BUN/Creatinine Ratio Glucose Calcium Urine Creatinine Urine Urea Nitrogen Vancomycin Trough 20.3 H 10/16/18 10/16/18 10/16/18 06:08 06:20 06:20 WBC RBC Hgb Hct MCV MCH MCHC RDW RDW Differential Plt Count MPV Immature Gran % (Auto) Neut % (Auto) Lymph % (Auto) [place] % (Auto) Eos % (Auto) Baso % (Auto) Absolute Neuts (auto) Absolute Lymphs (auto) Total Counted Eos Smear Total Cells Sodium 139 Potassium 4.9 Chloride 103 Carbon Dioxide 25.0 Anion Gap 11 BUN 69 H Creatinine 3.02 H Estim Creat Clear Calc 25.69 Est GFR (MDRD) Af Amer 27 L Est GFR (MDRD) Non-Af 23 L BUN/Creatinine Ratio 22.8 H Glucose 83 Calcium 8.6 Urine Creatinine 116.00 Urine Urea Nitrogen 378 Vancomycin Trough POC Glucose 10/16/18 10/15/18 10/15/18 06:41 22:18 17:01 POC Glucose 84 175 H 203 H 10/15/18 10:25 POC Glucose 142 H Medical Necessity - Tobacco Use Smoking Status: Never smoker Tobacco Use: Non-smoker Assessment/Plan All Active Problems AYE (acute kidney injury) (Acute) Pain of right heel (Acute) Cellulitis of right heel (Acute) Ulcer right heel down to the subcutaneous tissue layer - healing Ulcer/crack left heel down to the subcutaneous tissue layer - healing Cellulitis right heel - MRSA - much improved Diabetes with peripheral neuropathy Acute kidney injury, chronic kidney disease Bone scan has been reviewed. Noted increased signal to the right ankle, cuboid and 1st MTPJ, more c/w degenerative arthritic change, no specific signal to the calcaneus to indicate osteomyelitis - given these findings along with no probe or tracking to bone clinically not consistent with osteomyelitis at this time. Patient is being followed by Infectious Disease who is managing the antibiotics. Continue with wound care bilateral heels: Santyl with overlying gauze/kerlix and margaret dressing - change daily. Patient to to keep heels offloaded at all times. No weightbearing right foot, ok to weightbear on left forefoot. Patient will need home health care once discharged. Lower extremity arterial studies have been obtained - no evidence of arterial disease to the lower extremity bilateral. Medical management, AYE per medicine team. Infectious Disease is managing antibiotics. Discussed and reviewed with patient. Podiatry will continue to follow.
[2018-10-16] MEDS: Ferrous Sulfate 325 MG Tablet PO (08:52)
[2018-10-16] MEDS: Aspirin 81 MG TAB.CHEW PO (08:52)
[2018-10-16] MEDS: Diclofenac 75 MG Tablet PO ×2 (08:53→17:14)
[2018-10-16] MEDS: Carvedilol 25 MG Tablet PO ×2 (08:53→23:00)
[2018-10-16] MEDS: DULoxetine Hcl 30 MG Capsule PO (08:53)
[2018-10-16] MEDS: Isosorbide Mononitrate 30 MG Tablet PO ×2 (08:53→23:02)
[2018-10-16] MEDS: Glucerna Shake 120 ML LIQUID PO ×2 (08:53→23:00)
[2018-10-16] MEDS: amLODIPine 10 MG Tablet PO (08:54)
[2018-10-16] MEDS: Sertraline 100 MG Tablet PO (08:54)
[2018-10-16] MEDS: Clopidogrel Bisulfate 75 MG Tablet PO (08:54)
--- NOTE | 2018-10-16 09:36 | PCM.PN.HOSP ---
Patient Problems: Active and Suspected Problems AYE (acute kidney injury) (Acute) Pain of right heel (Acute) Cellulitis of right heel (Acute) Subjective: no new complaints at this time. Vitals/I&O's: Vital Signs Temp Pulse Resp BP Pulse Ox 36.8 C 60 18 139/73 H 94 10/16/18 09:00 10/16/18 09:07 10/16/18 09:00 10/16/18 09:00 10/16/18 09:00 Oxygen Flow Rate (L/min) 2 Oxygen Delivery Method Room Air Weight: 113.534 kg Body Mass Index (BMI) 36.9 Finger Stick Blood Glucose 42 Intake and Output for Last 24 Hours 10/14/18 10/15/18 10/16/18 23:59 23:59 23:59 Intake Total 2680 / 2680 2219 / 2219 600 / 600 Output Total 800 / 800 300 / 300 Balance 1880 / 1880 1919 / 1919 600 / 600 General: Alert, Cooperative, No apparent distress HEENT: Atraumatic, Normocephalic Oral: Moist Mucosa, No Gingival or Mucosal Lesions/ Ulcerations Neck: No Nodes, Thyroid Normal Size and Texture Lungs: Clear to auscultation, Normal air movement, No rhonchi, No wheeze Cardiovascular: Regular rate, Regular Rhythm, Normal S1, Normal S2 Abdomen: Bowel Sounds Present, Soft, Non Tender, Non-Distended Extremities: No edema, No Calf Tenderness Psych/Mental Status: Normal Affect, Appropriate Microbiology Past 72 Hours 10/13/18 17:30 Wound - Right Foot Gram Stain - Final 10/13/18 17:30 Wound - Right Foot Wound Culture - Final Meth. resistant Staph. aureus Enterococcus faecalis 10/13/18 17:30 Wound - Right Foot Anaerobic Culture - Preliminary Checking for anaerobes, further studies to follow. 10/13/18 13:10 Blood Culture (Wb) - Right Hand Blood Culture - Preliminary No growth in 48 hours. 10/13/18 13:33 Blood Culture (Wb) - Left Hand Blood Culture - Preliminary No growth in 48 hours. Laboratory Results 10/15/18 10:25: POC Glucose 142 H 10/15/18 15:30: Eos Smear Total Cells Pending 10/15/18 16:45: Vancomycin Trough 20.3 H 10/15/18 17:01: POC Glucose 203 H 10/15/18 22:18: POC Glucose 175 H 10/16/18 06:08: WBC 9.4, RBC 3.23 L, Hgb 9.0 L, Hct 29.4 L, MCV 91.0, MCH 27.9, MCHC 30.6 L, RDW 15.6 H, RDW Differential 50.8 H, Plt Count 165, MPV 10.6, Immature Gran % (Auto) 0.200, Neut % (Auto) 74.6 H, Lymph % (Auto) 9.8 L, [place] % (Auto) 11.7 H, Eos % (Auto) 3.4, Baso % (Auto) 0.3, Absolute Neuts (auto) 7.0, Absolute Lymphs (auto) 0.92, Total Counted Not Reportable 10/16/18 06:08: Sodium 139, Potassium 4.9, Chloride 103, Carbon Dioxide 25.0, Anion Gap 11, BUN 69 H, Creatinine 3.02 H, Estim Creat Clear Calc 25.69, Est GFR (MDRD) Af Amer 27 L, Est GFR (MDRD) Non-Af 23 L, BUN/Creatinine Ratio 22.8 H, Glucose 83, Calcium 8.6 10/16/18 06:20: Urine Creatinine 116.00 10/16/18 06:20: Urine Urea Nitrogen 378 10/16/18 06:41: POC Glucose 84 Current Medications Acetaminophen (Tylenol) 650 mg PO Q6H PRN PRN PRN Reason: Mild Pain (1-3)/Temp > 100.7 F Last Admin: 10/14/18 21:38 Dose: 650 mg Hydrocodone Bitart/Acetaminophen ([place] 5mg-325mg) 2 tablet PO Q6H PRN PRN PRN Reason: SEVERE PAIN (6-10/10) Last Admin: 10/14/18 05:20 Dose: 2 tablet Albuterol Sulfate (Ventolin Aerosols) 2.5 mg INHALATION Q2H PRN PRN PRN Reason: DYSPNEA Last Admin: 10/14/18 16:34 Dose: 2.5 mg Amlodipine Besylate (Norvasc) 10 mg PO DAILY [facility] Last Admin: 10/16/18 08:54 Dose: 10 mg Aspirin (Aspirin, Baby) 81 mg PO DAILY@0800 [facility] Last Admin: 12/27/18 08:52 Dose: 81 mg Atorvastatin Calcium (Lipitor) 80 mg PO QHS [facility] Last Admin: 10/15/18 22:21 Dose: 80 mg Carvedilol (Coreg) 25 mg PO BID [facility] Last Admin: 10/16/18 08:53 Dose: 25 mg Clopidogrel Bisulfate (Plavix) 75 mg PO DAILY [facility] Last Admin: 10/16/18 08:54 Dose: 75 mg Collagenase (Santyl) 1 applic TOPICAL DAILY [facility]; Protocol Last Admin: 10/16/18 08:09 Dose: 1 applicatio [facility]enac [facility]) [facility] Last Admin: 10/16/18 08:53 Dose: 75 mg Duloxetine HCl (Cymbalta) 30 mg PO DAILY [facility] Last Admin: 10/16/18 08:53 Dose: 30 mg Ferrous Sulfate (Ferrous Sulfate) 325 mg PO QODAY@0800 [facility] Last Admin: 10/16/18 08:52 Dose: 325 mg Gabapentin (Neurontin) 600 mg PO TID [facility] Last Admin: 10/16/18 06:35 Dose: 600 mg Heparin Sodium (Porcine) (Heparin Na) 5,000 unit SC Q8 [facility] Last Admin: 10/16/18 06:35 Dose: 5,000 unit Hydralazine HCl (Apresoline) 25 mg PO TID [facility] Last Admin: 10/16/18 06:35 Dose: Not Given Hydroxyzine Pamoate (Vistaril Pamoate Capsule) 25 mg PO TID PRN PRN PRN Reason: ANXIETY Last Admin: 10/14/18 05:34 Dose: 25 mg Insulin Glargine (Lantus (Bkc)) 30 units SC BID [facility] Last Admin: 10/16/18 08:54 Dose: 30 u Insulin Human Lispro (Humalog Kwikpen (Bkc)) 0 unit SC ACHS [facility]; Protocol Last Admin: 10/16/18 06:42 Dose: Not Given Isosorbide Mononitrate (Imdur) 30 mg PO BID [facility] Last Admin: 10/16/18 08:53 Dose: 30 mg Levofloxacin (Levaquin Tablet) 250 mg PO DAILY@0600 [facility] Last Admin: 10/16/18 06:35 Dose: 250 mg Melatonin (Melatonin) 20 mg PO QHS PRN PRN Reason: SLEEP Nutritional Formula (Lactose Free) (Glucerna Shake) 120 ml PO 4X/DAY [facility] Last Admin: 10/16/18 08:53 Dose: 120 ml Promethazine HCl (Phenergan) 6.25 mg IV Q6H PRN PRN PRN Reason: NAUSEA/VOMITING Last Admin: 10/16/18 07:23 Dose: 6.25 mg Sertraline HCl (Zoloft) 100 mg PO DAILY [facility] Last Admin: 10/16/18 08:54 Dose: 100 mg Sodium Chloride () 5 - 15 ml IV UD PRN PRN Reason: SALINE FLUSH Last Admin: 10/15/18 20:31 Dose: 10 ml Tizanidine HCl (Zanaflex) 8 mg PO TID PRN PRN Reason: SPASMS Last Admin: 10/14/18 11:27 Dose: 8 mg Medical Necessity - Tobacco Use Smoking Status: Never smoker Tobacco Use: Non-smoker Assessment/Plan All Active Problems YAE (acute kidney injury) (Acute) Pain of right heel (Acute) Cellulitis of right heel (Acute) 1. Heel cellulitis no obvious osteomyelitis culture + for MRSA continue vanc, ALEXANDER zosyn podiatry following ID consult given the MRSA and now AYE Lower extremity duplex ordered. 2. AYE new, worse again today on CKD 3 suspect d/t vanc v Bumex or combination continue IVF FEUrea 14.26, consistent with prerenal azotemia 3. DM2 fair control continue lantus and SSI. 4. HFrEF EF 40% from 2014 compensated at this time. continue carvedilol, hydralazine, imdur not candidate for ACEi/ARB given AYE 5. DVT proph: SQ heparin. Code Visit Inpatient E&M: 28194 Subs Hosp L2
--- NOTE | 2018-10-16 09:39 | PN_ITS ---
Patient Problems: Active and Suspected Problems AYE (acute kidney injury) (Acute) Pain of right heel (Acute) Cellulitis of right heel (Acute) Subjective: no new complaints at this time. Vitals/I&O's: Vital Signs Temp Pulse Resp BP Pulse Ox 36.8 C 60 18 139/73 H 94 10/16/18 09:00 10/16/18 09:07 10/16/18 09:00 10/16/18 09:00 10/16/18 09:00 Oxygen Flow Rate (L/min) 2 Oxygen Delivery Method Room Air Weight: 113.534 kg Body Mass Index (BMI) 36.9 Finger Stick Blood Glucose 42 Intake and Output for Last 24 Hours 10/14/18 10/15/18 10/16/18 23:59 23:59 23:59 Intake Total 2680 / 2680 2219 / 2219 600 / 600 Output Total 800 / 800 300 / 300 Balance 1880 / 1880 1919 / 1919 600 / 600 General: Alert, Cooperative, No apparent distress HEENT: Atraumatic, Normocephalic Oral: Moist Mucosa, No Gingival or Mucosal Lesions/ Ulcerations Neck: No Nodes, Thyroid Normal Size and Texture Lungs: Clear to auscultation, Normal air movement, No rhonchi, No wheeze Cardiovascular: Regular rate, Regular Rhythm, Normal S1, Normal S2 Abdomen: Bowel Sounds Present, Soft, Non Tender, Non-Distended Extremities: No edema, No Calf Tenderness Psych/Mental Status: Normal Affect, Appropriate Microbiology Past 72 Hours 10/13/18 17:30 Wound - Right Foot Gram Stain - Final 10/13/18 17:30 Wound - Right Foot Wound Culture - Final Meth. resistant Staph. aureus Enterococcus faecalis 10/13/18 17:30 Wound - Right Foot Anaerobic Culture - Preliminary Checking for anaerobes, further studies to follow. 10/13/18 13:10 Blood Culture (Wb) - Right Hand Blood Culture - Preliminary No growth in 48 hours. 10/13/18 13:33 Blood Culture (Wb) - Left Hand Blood Culture - Preliminary No growth in 48 hours. Laboratory Results 10/15/18 10:25: POC Glucose 142 H 10/15/18 15:30: Eos Smear Total Cells Pending 10/15/18 16:45: Vancomycin Trough 20.3 H 10/15/18 17:01: POC Glucose 203 H 10/15/18 22:18: POC Glucose 175 H 10/16/18 06:08: WBC 9.4, RBC 3.23 L, Hgb 9.0 L, Hct 29.4 L, MCV 91.0, MCH 27.9, MCHC 30.6 L, RDW 15.6 H, RDW Differential 50.8 H, Plt Count 165, MPV 10.6, Immature Gran % (Auto) 0.200, Neut % (Auto) 74.6 H, Lymph % (Auto) 9.8 L, [place] % (Auto) 11.7 H, Eos % (Auto) 3.4, Baso % (Auto) 0.3, Absolute Neuts (auto) 7.0, Absolute Lymphs (auto) 0.92, Total Counted Not Reportable 10/16/18 06:08: Sodium 139, Potassium 4.9, Chloride 103, Carbon Dioxide 25.0, Anion Gap 11, BUN 69 H, Creatinine 3.02 H, Estim Creat Clear Calc 25.69, Est GFR (MDRD) Af Amer 27 L, Est GFR (MDRD) Non-Af 23 L, BUN/Creatinine Ratio 22.8 H, Glucose 83, Calcium 8.6 10/16/18 06:20: Urine Creatinine 116.00 10/16/18 06:20: Urine Urea Nitrogen 378 10/16/18 06:41: POC Glucose 84 Current Medications Acetaminophen (Tylenol) 650 mg PO Q6H PRN PRN PRN Reason: Mild Pain (1-3)/Temp > 100.7 F Last Admin: 10/14/18 21:38 Dose: 650 mg Hydrocodone Bitart/Acetaminophen ([place] 5mg-325mg) 2 tablet PO Q6H PRN PRN PRN Reason: SEVERE PAIN (6-10/10) Last Admin: 10/14/18 05:20 Dose: 2 tablet Albuterol Sulfate (Ventolin Aerosols) 2.5 mg INHALATION Q2H PRN PRN PRN Reason: DYSPNEA Last Admin: 10/14/18 16:34 Dose: 2.5 mg Amlodipine Besylate (Norvasc) 10 mg PO DAILY [facility] Last Admin: 10/16/18 08:54 Dose: 10 mg Aspirin (Aspirin, Baby) 81 mg PO DAILY@0800 [facility] Last Admin: 12/27/18 08:52 Dose: 81 mg Atorvastatin Calcium (Lipitor) 80 mg PO QHS [facility] Last Admin: 10/15/18 22:21 Dose: 80 mg Carvedilol (Coreg) 25 mg PO BID [facility] Last Admin: 10/16/18 08:53 Dose: 25 mg Clopidogrel Bisulfate (Plavix) 75 mg PO DAILY [facility] Last Admin: 10/16/18 08:54 Dose: 75 mg Collagenase (Santyl) 1 applic TOPICAL DAILY [facility]; Protocol Last Admin: 10/16/18 08:09 Dose: 1 applicatio [facility]) [facility] Last Admin: 10/16/18 08:53 Dose: 75 mg Duloxetine HCl (Cymbalta) 30 mg PO DAILY [facility] Last Admin: 10/16/18 08:53 Dose: 30 mg Ferrous Sulfate (Ferrous Sulfate) 325 mg PO QODAY@0800 [facility] Last Admin: 10/16/18 08:52 Dose: 325 mg Gabapentin (Neurontin) 600 mg PO TID [facility] Last Admin: 10/16/18 06:35 Dose: 600 mg Heparin Sodium (Porcine) (Heparin Na) 5,000 unit SC Q8 [facility] Last Admin: 10/16/18 06:35 Dose: 5,000 unit Hydralazine HCl (Apresoline) 25 mg PO TID [facility] Last Admin: 10/16/18 06:35 Dose: Not Given Hydroxyzine Pamoate (Vistaril Pamoate Capsule) 25 mg PO TID PRN PRN PRN Reason: ANXIETY Last Admin: 10/14/18 05:34 Dose: 25 mg Insulin Glargine (Lantus (Bkc)) 30 units SC BID [facility] Last Admin: 10/16/18 08:54 Dose: 30 u Insulin Human Lispro (Humalog Kwikpen (Bkc)) 0 unit SC ACHS [facility]; Protocol Last Admin: 10/16/18 06:42 Dose: Not Given Isosorbide Mononitrate (Imdur) 30 mg PO BID [facility] Last Admin: 10/16/18 08:53 Dose: 30 mg Levofloxacin (Levaquin Tablet) 250 mg PO DAILY@0600 [facility] Last Admin: 10/16/18 06:35 Dose: 250 mg Melatonin (Melatonin) 20 mg PO QHS PRN PRN Reason: SLEEP Nutritional Formula (Lactose Free) (Glucerna Shake) 120 ml PO 4X/DAY [facility] Last Admin: 10/16/18 08:53 Dose: 120 ml Promethazine HCl (Phenergan) 6.25 mg IV Q6H PRN PRN PRN Reason: NAUSEA/VOMITING Last Admin: 10/16/18 07:23 Dose: 6.25 mg Sertraline HCl (Zoloft) 100 mg PO DAILY [facility] Last Admin: 10/16/18 08:54 Dose: 100 mg Sodium Chloride () 5 - 15 ml IV UD PRN PRN Reason: SALINE FLUSH Last Admin: 10/15/18 20:31 Dose: 10 ml Tizanidine HCl (Zanaflex) 8 mg PO TID PRN PRN Reason: SPASMS Last Admin: 10/14/18 11:27 Dose: 8 mg Medical Necessity - Tobacco Use Smoking Status: Never smoker Tobacco Use: Non-smoker Assessment/Plan All Active Problems AYE (acute kidney injury) (Acute) Pain of right heel (Acute) Cellulitis of right heel (Acute) 1. Heel cellulitis * no obvious osteomyelitis * culture + for MRSA * continue vanc, [place] zosyn * podiatry following * ID consult given the MRSA and now AYE * Lower extremity duplex ordered. 2. AYE * new, worse again today * on CKD 3 * suspect d/t vanc v Bumex or combination * continue IVF * FEUrea 14.26, consistent with prerenal azotemia 3. DM2 * fair control * continue lantus and SSI. 4. HFrEF * EF 40% from 2013 * compensated at this time. * continue carvedilol, hydralazine, imdur * not candidate for ACEi/ARB given AYE 5. DVT proph: SQ heparin. Code Visit Inpatient E&M: 56515 Subs Hosp L2
[2018-10-16 09:41] LABS: Bacteria 0 SEEN /hpf (None Seen); Mucous, Urine 0 SEEN /hpf (<or=2+); Red Blood Cells-Urine 0 SEEN /hpf (0-5); Squamous Epithelial Cells - UA 0 SEEN /hpf (0-5)
[2018-10-16 09:44] LABS: Color, Urine Yellow (Yellow); Glucose, Dipstick Normal (Normal); Ketone-Dipstick Negative (Negative); Leukocyte Esterase-Dipstick Negative /ul (Negative); Nitrite-Dipstick Negative (Negative); Occult Blood-Urine Negative /ul (Negative); Protein-Dipstick 15 mg/dl (Negative); Specific Gravity, Urine 1.015 (1.002-1.030); Urine Bilirubin Dipstick Negative (Negative); Urine Clarity Clear (Clear); Urine Urobilinogen 4 mg/dl (Normal)
[2018-10-16 09:53] LABS: Amorphous Sediment 1+; White Blood Cells 0 SEEN /hpf (0-5)
--- NOTE | 2018-10-16 10:08 | PCM.PN.ID ---
Patient Problems: Active and Suspected Problems AYE (acute kidney injury) (Acute) Pain of right heel (Acute) Cellulitis of right heel (Acute) Subjective: Feeling ok, no fever, mild nausea, mild pain in feet. - Physical Exam General: Alert, Cooperative, No apparent distress Lungs: Clear to auscultation, Normal air movement Cardiovascular: Regular rate, Regular Rhythm Abdomen: Soft, Non Tender, Non-Distended Skin: Ulcer/ Wound - feet wrapped Vital Signs Temp Pulse Resp BP Pulse Ox 98.2 F 60 18 139/73 H 94 10/16/18 09:00 10/16/18 09:07 10/16/18 09:00 10/16/18 09:00 10/16/18 09:00 Oxygen Flow Rate (L/min) 2 Oxygen Delivery Method Room Air Weight: 113.534 kg Body Mass Index (BMI) 36.9 Finger Stick Blood Glucose 42 Intake and Output for Last 24 Hours 10/14/18 10/15/18 10/16/18 23:59 23:59 23:59 Intake Total 2680 / 2680 2219 / 2219 600 / 600 Output Total 800 / 800 300 / 300 Balance 1880 / 1880 1919 / 1919 600 / 600 Microbiology Past 72 Hours 10/13/18 17:30 Gram Stain - Final Wound - Right Foot Wound Culture - Final Meth. resistant Staph. aureus Enterococcus faecalis Anaerobic Culture - Preliminary Checking for anaerobes, further studies to follow. 10/13/18 13:10 Blood Culture - Preliminary Blood Culture (Wb) - Right Hand No growth in 48 hours. 10/13/18 13:33 Blood Culture - Preliminary Blood Culture (Wb) - Left Hand No growth in 48 hours. Laboratory Tests Past 24 Hrs 10/15/18 10/15/18 10/16/18 15:30 16:45 06:08 WBC 9.4 RBC 3.23 L Hgb 9.0 L Hct 29.4 L MCV 91.0 MCH 27.9 MCHC 30.6 L RDW 15.6 H RDW Differential 50.8 H Plt Count 165 MPV 10.6 Immature Gran % (Auto) 0.200 Neut % (Auto) 74.6 H Lymph % (Auto) 9.8 L [place] % (Auto) 11.7 H Eos % (Auto) 3.4 Baso % (Auto) 0.3 Absolute Neuts (auto) 7.0 Absolute Lymphs (auto) 0.92 Total Counted Not Reportable Eos Smear Total Cells Pending Sodium Potassium Chloride Carbon Dioxide Anion Gap BUN Creatinine Estim Creat Clear Calc Est GFR (MDRD) Af Amer Est GFR (MDRD) Non-Af BUN/Creatinine Ratio Glucose Calcium Urine Color Urine Clarity Urine pH Ur Specific [place] Urine Protein Urine Glucose (UA) Urine Ketones Urine Occult Blood Urine Nitrite Urine Bilirubin Urine Urobilinogen Ur Leukocyte Esterase Urine RBC Urine WBC Ur Squamous Epith Cells Amorphous Sediment Urine Bacteria Urine Mucus Urine Creatinine Urine Urea Nitrogen Vancomycin Trough 20.3 H 10/16/18 10/16/18 10/16/18 06:08 06:20 06:20 WBC RBC Hgb Hct MCV MCH MCHC RDW RDW Differential Plt Count MPV Immature Gran % (Auto) Neut % (Auto) Lymph % (Auto) [place] % (Auto) Eos % (Auto) Baso % (Auto) Absolute Neuts (auto) Absolute Lymphs (auto) Total Counted Eos Smear Total Cells Sodium 139 Potassium 4.9 Chloride 103 Carbon Dioxide 25.0 Anion Gap 11 BUN 69 H Creatinine 3.02 H Estim Creat Clear Calc 25.69 Est GFR (MDRD) Af Amer 27 L Est GFR (MDRD) Non-Af 23 L BUN/Creatinine Ratio 22.8 H Glucose 83 Calcium 8.6 Urine Color Urine Clarity Urine pH Ur Specific [place] Urine Protein Urine Glucose (UA) Urine Ketones Urine Occult Blood Urine Nitrite Urine Bilirubin Urine Urobilinogen Ur Leukocyte Esterase Urine RBC Urine WBC Ur Squamous Epith Cells Amorphous Sediment Urine Bacteria Urine Mucus Urine Creatinine 116.00 Urine Urea Nitrogen 378 Vancomycin Trough 10/16/18 06:20 WBC RBC Hgb Hct MCV MCH MCHC RDW RDW Differential Plt Count MPV Immature Gran % (Auto) Neut % (Auto) Lymph % (Auto) [place] % (Auto) Eos % (Auto) Baso % (Auto) Absolute Neuts (auto) Absolute Lymphs (auto) Total Counted Eos Smear Total Cells Sodium Potassium Chloride Carbon Dioxide Anion Gap BUN Creatinine Estim Creat Clear Calc Est GFR (MDRD) Af Amer Est GFR (MDRD) Non-Af BUN/Creatinine Ratio Glucose Calcium Urine Color Yellow Urine Clarity Clear Urine pH 5.0 Ur Specific [place] 1.015 Urine Protein 15 H Urine Glucose (UA) Normal Urine Ketones Negative Urine Occult Blood Negative Urine Nitrite Negative Urine Bilirubin Negative Urine Urobilinogen 4 H Ur Leukocyte Esterase Negative Urine RBC 0 SEEN Urine WBC 0 SEEN Ur Squamous Epith Cells 0 SEEN Amorphous Sediment 1+ Urine Bacteria 0 SEEN Urine Mucus 0 SEEN Urine Creatinine Urine Urea Nitrogen Vancomycin Trough POC Glucose 10/16/18 10/15/18 10/15/18 06:41 22:18 17:01 POC Glucose 84 175 H 203 H 10/15/18 10:25 POC Glucose 142 H Medical Necessity - Tobacco Use Smoking Status: Never smoker Tobacco Use: Non-smoker Route of nutrition/ use of supplements: [] Nutritional Intake: [] IV Site: [] Corea Catheter: [] - Assessment/Plan Antibiotics: [] Assessment/Plan: [] Active and Suspected Problems AYE (acute kidney injury) (Acute) Pain of right heel (Acute) Cellulitis of right heel (Acute) MRSA and enterococcus R heel infected ulcer with DM neuropathy - Worsening AYE, urine studies sent. Vanc level 10/15 was just above normal range. Not a candidate for linezolid as he is on 2 SSRIs. Will cover with levaquin and augmentin. No sign of bone involvement on exam per Dr. Chen or on bone scan. AYE - worsened today, may need renal eval if continues to worsen Will follow
[2018-10-16 11:36] LABS: Bedside Glucose 160 mg/dL (70-110)
[2018-10-16] MEDS: 0.9% Normal Saline 1,000 ML 125 ML IV (12:21)
[2018-10-16] MEDS: Insulin Lispro 100 UNIT/ML INSULN.PEN SC (12:21)
[2018-10-16] MEDS: Amox/Clavulanate 500 MG Tablet PO (12:21)
[2018-10-16] MEDS: hydrALAZINE 25 MG Tablet PO ×2 (12:22→23:00)
--- NOTE | 2018-10-16 14:44 | NURSING ---
awaRe per rob at [facility] [place] they do not carry off loading boots for heel wounds. informed tonny Ramires cm.
[2018-10-16] MEDS: HYDROcodone Bitartrate/Apap 5/325 Tablet PO (17:13)
[2018-10-16] MEDS: tiZANidine HCl 2 MG Tablet 8 MG PO (20:44)
[2018-10-16 21:36] LABS: Bedside Glucose 141 mg/dL (70-110)
[2018-10-16] MEDS: Atorvastatin Calcium 80 MG Tablet PO (23:01)
[2018-10-16 23:16] LABS: Bedside Glucose 117 mg/dL (70-110)
[2018-10-17] VITALS (9 sets, daily range): BP systolic 101–123; BP diastolic 43–68; PULSE 43–70; RESP 14–18; TEMP 36–37.3; O2SAT 92–96
[2018-10-17 03:00] LABS: Bedside Glucose 50 mg/dL (70-110)
[2018-10-17 03:00] LABS: Bedside Glucose 118 mg/dL (70-110)
[2018-10-17] MEDS: 0.9% Normal Saline 1,000 ML 125 ML IV (03:34)
[2018-10-17] MEDS: Heparin Injection (Vial) 5,000 UNIT/ML VIAL 5000 UNIT SC ×3 (06:32→22:46)
[2018-10-17] MEDS: HYDROcodone Bitartrate/Apap 5/325 Tablet PO ×3 (06:33→22:45)
[2018-10-17] MEDS: Gabapentin 600 MG Tablet PO ×3 (06:36→22:44)
[2018-10-17 06:39] LABS: Anion Gap 12 (5-15); BUN 72 mg/dL (7-18); BUN/Creat Ratio 19.1 RATIO (10-20); Calcium,Total 8.4 mg/dL (8.5-10.1); Chloride 102 mmol/L (98-107); Creatinine, Serum 3.77 mg/dL (0.70-1.30); EST Glomerular Filtration Rate 17 mL/min (>60); Est Glom Filt Rate - Afr Amer 21 mL/min (>60); Estimated Creatinine Clearance 20.58 ml/min; Glucose 69 mg/dL (74-106); Potassium 4.9 mmol/L (3.5-5.1); Sodium Level 136 mmol/L (136-145)
[2018-10-17 07:10] LABS: Bedside Glucose 75 mg/dL (70-110)
--- NOTE | 2018-10-17 07:50 | US_ITS ---
STUDY: RENAL ULTRASOUND - COMPLETE REASON FOR EXAM: Male, 62 years old. Acute renal failure. No urination for days. TECHNIQUE: Ultrasound evaluation of the kidneys was performed with real-time and static weiss-scale imaging. COMPARISON: None. FINDINGS: RIGHT KIDNEY: Normal location of the right kidney, which is normal in size. The right kidney measures 11.5 cm. There is a normal cortex of the right kidney. The renal cortex measures 2.3 cm. There is no right renal mass or cyst. There are no right renal calculi. There is no right hydronephrosis. DISTAL RIGHT URETER: There is non-visualization of the distal right ureter. There is no demonstrated right ureterovesical junction calculus. There is a visualized right ureteral jet. LEFT KIDNEY: Normal location of the left kidney, which is normal in size. The left kidney measures 11.4 cm. There is a normal cortex of the left kidney. The renal cortex measures 2.1 cm. There is no left renal mass or cyst. There are no left renal calculi. There is no left hydronephrosis. DISTAL LEFT URETER: There is non-visualization of the distal left ureter. There is no demonstrated left ureterovesical junction calculus. There is a visualized left ureteral jet. BLADDER: The distended urinary bladder has a volume of 108 ml. The empty urinary bladder has a volume of 0 ml. There is a normal wall thickness of the distended urinary bladder. There is no demonstrated mass within the urinary bladder. There are no demonstrated bladder calculi. Insult finding is a left pleural effusion. US/Kidney and Bladder IMPRESSION: Normal ultrasound of the kidneys and urinary bladder. Electronically Signed: Eric Pandey DO at 22:01 EST Tel [phone], Service support ,
--- NOTE | 2018-10-17 10:32 | NURSING ---
@ [id number] pt off unit for testing, pt remains off unit at this time
--- NOTE | 2018-10-17 10:56 | PCM.PN.HOSP ---
Patient Problems: Active and Suspected Problems AYE (acute kidney injury) (Acute) Cellulitis of right heel (Acute) Subjective: noted swelling on eye lids. Vitals/I&O's: Vital Signs Temp Pulse Resp BP Pulse Ox 37.3 C H 58 L 18 112/56 L 95 10/17/18 02:08 10/17/18 10:00 10/17/18 02:08 10/17/18 06:39 10/17/18 02:08 Oxygen Flow Rate (L/min) 2 Oxygen Delivery Method Room Air Weight: 113.534 kg Body Mass Index (BMI) 36.9 Finger Stick Blood Glucose 42 Intake and Output for Last 24 Hours 10/15/18 10/16/18 10/17/18 23:59 23:59 23:59 Intake Total 2219 / 2219 2288 / 2288 890 / 890 Output Total 300 / 300 600 / 600 0 / 0 Balance 1918 / 1918 1688 / 1688 890 / 890 General: Alert, No apparent distress HEENT: Atraumatic, Normocephalic, - - eyelid swelling Oral: Moist Mucosa, No Gingival or Mucosal Lesions/ Ulcerations Neck: No Nodes, Thyroid Normal Size and Texture Lungs: Clear to auscultation, Normal air movement, No rhonchi, No wheeze Cardiovascular: Regular rate, Regular Rhythm, Normal S1, Normal S2, No murmurs Abdomen: Bowel Sounds Present, Soft, Non Tender, Non-Distended, No Hepato-splenomegaly Extremities: No Calf Tenderness, Edema Skin: No rashes, No breakdown Psych/Mental Status: Normal Affect, Appropriate Microbiology Past 72 Hours 10/13/18 17:30 Wound - Right Foot Gram Stain - Final 10/13/18 17:30 Wound - Right Foot Wound Culture - Final Meth. resistant Staph. aureus Enterococcus faecalis 10/13/18 17:30 Wound - Right Foot Anaerobic Culture - Final No anaerobic bacteria isolated. 10/13/18 13:10 Blood Culture (Wb) - Right Hand Blood Culture - Preliminary No growth in 48 hours. 10/13/18 13:33 Blood Culture (Wb) - Left Hand Blood Culture - Preliminary No growth in 48 hours. Laboratory Results 10/16/18 11:30: POC Glucose 160 H 10/16/18 16:30: POC Glucose 141 H 10/16/18 22:49: POC Glucose 117 H 10/17/18 02:14: POC Glucose 50 L 10/17/18 02:52: POC Glucose 118 H 10/17/18 05:46: Sodium 136, Potassium 4.9, Chloride 102, Carbon Dioxide 22.0, Anion Gap 12, BUN 72 H, Creatinine 3.77 H, Estim Creat Clear Calc 20.58, Est GFR (MDRD) Af Amer 21 L, Est GFR (MDRD) Non-Af 17 L, BUN/Creatinine Ratio 19.1, Glucose 69 L, Calcium 8.4 L 10/17/18 06:30: POC Glucose 75 Current Medications Acetaminophen (Tylenol) 650 mg PO Q6H PRN PRN PRN Reason: Mild Pain (1-3)/Temp > 100.7 F Last Admin: 10/14/18 21:38 Dose: 650 mg Hydrocodone Bitart/Acetaminophen ([place] 5mg-325mg) 2 tablet PO Q6H PRN PRN PRN Reason: SEVERE PAIN (6-10/10) Last Admin: 10/17/18 06:33 Dose: 2 tablet Albuterol Sulfate (Ventolin Aerosols) 2.5 mg INHALATION Q2H PRN PRN PRN Reason: DYSPNEA Last Admin: 10/14/18 16:34 Dose: 2.5 mg Amlodipine Besylate (Norvasc) 10 mg PO DAILY [facility] Last Admin: 10/16/18 08:54 Dose: 10 mg Amoxicillin/Clavulanate Potassium (Augmentin Tablet) 500 mg PO QAM [facility] Last Admin: 10/16/18 12:21 Dose: 500 mg Aspirin (Aspirin, Baby) 81 mg PO DAILY@0800 [facility] Last Admin: 10/16/18 08:52 Dose: 81 mg Atorvastatin Calcium (Lipitor) 80 mg PO QHS [facility] Last Admin: 10/16/18 23:01 Dose: 80 mg Carvedilol (Coreg) 25 mg PO BID [facility] Last Admin: 10/16/18 23:00 Dose: 25 mg Clopidogrel Bisulfate (Plavix) 75 mg PO DAILY [facility] Last Admin: 10/16/18 08:54 Dose: 75 mg Collagenase (Santyl) 1 applic TOPICAL DAILY [facility]; Protocol Last Admin: 10/16/18 08:09 Dose: 1 applicatio Duloxetine HCl (Cymbalta) 30 mg PO DAILY [facility] Last Admin: 10/16/18 08:53 Dose: 30 mg Ferrous Sulfate (Ferrous Sulfate) 325 mg PO QODAY@0800 [facility] Last Admin: 10/16/18 08:52 Dose: 325 mg Gabapentin (Neurontin) 600 mg PO TID [facility] Last Admin: 10/17/18 06:36 Dose: 600 mg Heparin Sodium (Porcine) (Heparin Na) 5,000 unit SC Q8 [facility] Last Admin: 10/17/18 06:32 Dose: 5,000 unit Hydralazine HCl (Apresoline) 25 mg PO TID [facility] Last Admin: 10/17/18 06:39 Dose: Not Given Hydroxyzine Pamoate (Vistaril Pamoate Capsule) 25 mg PO TID PRN PRN PRN Reason: ANXIETY Last Admin: 10/14/18 05:34 Dose: 25 mg Sodium Chloride () 1,000 mls @ 125 mls/hr IV .Q8H [facility] Stop: 10/17/18 11:24 Last Admin: 10/17/18 03:34 Dose: 125 mls/hr Insulin Glargine (Lantus (Bkc)) 30 units SC BID [facility] Last Admin: 10/16/18 23:03 Dose: 30 u Insulin Human Lispro (Humalog Kwikpen (Bkc)) 0 unit SC ACHS [facility]; Protocol Last Admin: 10/17/18 06:31 Dose: Not Given Isosorbide Mononitrate (Imdur) 30 mg PO BID [facility] Last Admin: 10/16/18 23:02 Dose: 30 mg Levofloxacin (Levaquin Tablet) 250 mg PO Q48H [facility] Melatonin (Melatonin) 20 mg PO QHS PRN PRN Reason: SLEEP Nutritional Formula (Lactose Free) (Glucerna Shake) 120 ml PO 4X/DAY [facility] Last Admin: 10/16/18 23:00 Dose: 120 ml Promethazine HCl (Phenergan) 6.25 mg IV Q6H PRN PRN PRN Reason: NAUSEA/VOMITING Last Admin: 10/16/18 20:44 Dose: 6.25 mg Sertraline HCl (Zoloft) 100 mg PO DAILY [facility] Last Admin: 10/16/18 08:54 Dose: 100 mg Simethicone (Mylicon) 80 mg PO PCHS [facility] Last Admin: 10/16/18 22:59 Dose: 80 mg Sodium Chloride () 5 - 15 ml IV UD PRN PRN Reason: SALINE FLUSH Last Admin: 10/15/18 20:31 Dose: 10 ml Tizanidine HCl (Zanaflex) 8 mg PO TID PRN PRN Reason: SPASMS Last Admin: 10/16/18 20:44 Dose: 8 mg Medical Necessity - Tobacco Use Smoking Status: Never smoker Tobacco Use: Non-smoker Assessment/Plan All Active Problems AYE (acute kidney injury) (Acute) Pain of right heel (Acute) Cellulitis of right heel (Acute) 1. Heel cellulitis no obvious osteomyelitis culture + for MRSA on levaquin podiatry following ID consult given the MRSA and now AYE Lower extremity duplex ordered. 2. AYE new, worse again today on CKD 3 suspect d/t vanc v Bumex or combination continue IVF FEUrea 14.26, consistent with prerenal azotemia Nephrology consult 3. DM2 fair control continue lantus and SSI. 4. HFrEF EF 40% from 2014 compensated at this time. continue carvedilol, hydralazine, imdur not candidate for ACEi/ARB given AYE 5. DVT proph: SQ heparin. Code Visit Inpatient E&M: 01731 Subs Hosp L2
--- NOTE | 2018-10-17 11:01 | PN_ITS ---
Patient Problems: Active and Suspected Problems AYE (acute kidney injury) (Acute) Cellulitis of right heel (Acute) Subjective: noted swelling on eye lids. Vitals/I&O's: Vital Signs Temp Pulse Resp BP Pulse Ox 37.3 C H 58 L 18 112/56 L 95 10/17/18 02:08 10/17/18 10:00 10/17/18 02:08 10/17/18 06:39 10/17/18 02:08 Oxygen Flow Rate (L/min) 2 Oxygen Delivery Method Room Air Weight: 113.534 kg Body Mass Index (BMI) 36.9 Finger Stick Blood Glucose 42 Intake and Output for Last 24 Hours 10/15/18 10/16/18 10/17/18 23:59 23:59 23:59 Intake Total 2219 / 2219 2288 / 2288 890 / 890 Output Total 300 / 300 600 / 600 0 / 0 Balance 1918 / 1918 1688 / 1688 890 / 890 General: Alert, No apparent distress HEENT: Atraumatic, Normocephalic, - - eyelid swelling Oral: Moist Mucosa, No Gingival or Mucosal Lesions/ Ulcerations Neck: No Nodes, Thyroid Normal Size and Texture Lungs: Clear to auscultation, Normal air movement, No rhonchi, No wheeze Cardiovascular: Regular rate, Regular Rhythm, Normal S1, Normal S2, No murmurs Abdomen: Bowel Sounds Present, Soft, Non Tender, Non-Distended, No Hepato- splenomegaly Extremities: No Calf Tenderness, Edema Skin: No rashes, No breakdown Psych/Mental Status: Normal Affect, Appropriate Microbiology Past 72 Hours 10/13/18 17:30 Wound - Right Foot Gram Stain - Final 10/13/18 17:30 Wound - Right Foot Wound Culture - Final Meth. resistant Staph. aureus Enterococcus faecalis 10/13/18 17:30 Wound - Right Foot Anaerobic Culture - Final No anaerobic bacteria isolated. 10/13/18 13:10 Blood Culture (Wb) - Right Hand Blood Culture - Preliminary No growth in 48 hours. 10/13/18 13:33 Blood Culture (Wb) - Left Hand Blood Culture - Preliminary No growth in 48 hours. Laboratory Results 10/16/18 11:30: POC Glucose 160 H 10/16/18 16:30: POC Glucose 141 H 10/16/18 22:49: POC Glucose 117 H 10/17/18 02:14: POC Glucose 50 L 10/17/18 02:52: POC Glucose 118 H 10/17/18 05:46: Sodium 136, Potassium 4.9, Chloride 102, Carbon Dioxide 22.0, Anion Gap 12, BUN 72 H, Creatinine 3.77 H, Estim Creat Clear Calc 20.58, Est GFR (MDRD) Af Amer 21 L, Est GFR (MDRD) Non-Af 17 L, BUN/Creatinine Ratio 19.1, Glucose 69 L, Calcium 8.4 L 10/17/18 06:30: POC Glucose 75 Current Medications Acetaminophen (Tylenol) 650 mg PO Q6H PRN PRN PRN Reason: Mild Pain (1-3)/Temp > 100.7 F Last Admin: 10/14/18 21:38 Dose: 650 mg Hydrocodone Bitart/Acetaminophen ([place] 5mg-325mg) 2 tablet PO Q6H PRN PRN PRN Reason: SEVERE PAIN (6-10/10) Last Admin: 10/17/18 06:33 Dose: 2 tablet Albuterol Sulfate (Ventolin Aerosols) 2.5 mg INHALATION Q2H PRN PRN PRN Reason: DYSPNEA Last Admin: 10/14/18 16:34 Dose: 2.5 mg Amlodipine Besylate (Norvasc) 10 mg PO DAILY [facility] Last Admin: 10/16/18 08:54 Dose: 10 mg Amoxicillin/Clavulanate Potassium (Augmentin Tablet) 500 mg PO QAM [facility] Last Admin: 10/16/18 12:21 Dose: 500 mg Aspirin (Aspirin, Baby) 81 mg PO DAILY@0800 [facility] Last Admin: 10/16/18 08:52 Dose: 81 mg Atorvastatin Calcium (Lipitor) 80 mg PO QHS [facility] Last Admin: 10/16/18 23:01 Dose: 80 mg Carvedilol (Coreg) 25 mg PO BID [facility] Last Admin: 10/16/18 23:00 Dose: 25 mg Clopidogrel Bisulfate (Plavix) 75 mg PO DAILY [facility] Last Admin: 10/16/18 08:54 Dose: 75 mg Collagenase (Santyl) 1 applic TOPICAL DAILY [facility]; Protocol Last Admin: 10/16/18 08:09 Dose: 1 applicatio Duloxetine HCl (Cymbalta) 30 mg PO DAILY [facility] Last Admin: 10/16/18 08:53 Dose: 30 mg Ferrous Sulfate (Ferrous Sulfate) 325 mg PO QODAY@0800 [facility] Last Admin: 10/16/18 08:52 Dose: 325 mg Gabapentin (Neurontin) 600 mg PO TID [facility] Last Admin: 10/17/18 06:36 Dose: 600 mg Heparin Sodium (Porcine) (Heparin Na) 5,000 unit SC Q8 [facility] Last Admin: 10/17/18 06:32 Dose: 5,000 unit Hydralazine HCl (Apresoline) 25 mg PO TID [facility] Last Admin: 10/17/18 06:39 Dose: Not Given Hydroxyzine Pamoate (Vistaril Pamoate Capsule) 25 mg PO TID PRN PRN PRN Reason: ANXIETY Last Admin: 10/14/18 05:34 Dose: 25 mg Sodium Chloride () 1,000 mls @ 125 mls/hr IV .Q8H [facility] Stop: 10/17/18 11:24 Last Admin: 10/17/18 03:34 Dose: 125 mls/hr Insulin Glargine (Lantus (Bkc)) 30 units SC BID [facility] Last Admin: 10/16/18 23:03 Dose: 30 u Insulin Human Lispro (Humalog Kwikpen (Bkc)) 0 unit SC ACHS [facility]; Protocol Last Admin: 10/17/18 06:31 Dose: Not Given Isosorbide Mononitrate (Imdur) 30 mg PO BID [facility] Last Admin: 10/16/18 23:02 Dose: 30 mg Levofloxacin (Levaquin Tablet) 250 mg PO Q48H [facility] Melatonin (Melatonin) 20 mg PO QHS PRN PRN Reason: SLEEP Nutritional Formula (Lactose Free) (Glucerna Shake) 120 ml PO 4X/DAY [facility] Last Admin: 10/16/18 23:00 Dose: 120 ml Promethazine HCl (Phenergan) 6.25 mg IV Q6H PRN PRN PRN Reason: NAUSEA/VOMITING Last Admin: 10/16/18 20:44 Dose: 6.25 mg Sertraline HCl (Zoloft) 100 mg PO DAILY [facility] Last Admin: 10/16/18 08:54 Dose: 100 mg Simethicone (Mylicon) 80 mg PO PCHS [facility] Last Admin: 10/16/18 22:59 Dose: 80 mg Sodium Chloride () 5 - 15 ml IV UD PRN PRN Reason: SALINE FLUSH Last Admin: 10/15/18 20:31 Dose: 10 ml Tizanidine HCl (Zanaflex) 8 mg PO TID PRN PRN Reason: SPASMS Last Admin: 10/16/18 20:44 Dose: 8 mg Medical Necessity - Tobacco Use Smoking Status: Never smoker Tobacco Use: Non-smoker Assessment/Plan All Active Problems AYE (acute kidney injury) (Acute) Pain of right heel (Acute) Cellulitis of right heel (Acute) 1. Heel cellulitis * no obvious osteomyelitis * culture + for MRSA * on levaquin * podiatry following * ID consult given the MRSA and now AYE * Lower extremity duplex ordered. 2. AYE * new, worse again today * on CKD 3 * suspect d/t vanc v Bumex or combination * continue IVF * FEUrea 14.26, consistent with prerenal azotemia * Nephrology consult 3. DM2 * fair control * continue lantus and SSI. 4. HFrEF * EF 40% from 2014 * compensated at this time. * continue carvedilol, hydralazine, imdur * not candidate for ACEi/ARB given AYE 5. DVT proph: SQ heparin. Code Visit Inpatient E&M: 38306 Subs Hosp L2
[2018-10-17] MEDS: 0.9% Normal Saline 1,000 ML 100 ML IV (11:27)
[2018-10-17] MEDS: 0.9% NaCl Peripheral Flush Adult/Peds IV (11:28)
[2018-10-17] MEDS: DULoxetine Hcl 30 MG Capsule PO (11:31)
[2018-10-17] MEDS: Carvedilol 25 MG Tablet PO (11:31)
[2018-10-17] MEDS: Aspirin 81 MG TAB.CHEW PO (11:31)
[2018-10-17] MEDS: Amox/Clavulanate 500 MG Tablet PO (11:31)
[2018-10-17] MEDS: Glucerna Shake 120 ML LIQUID PO ×3 (11:32→22:46)
[2018-10-17] MEDS: Isosorbide Mononitrate 30 MG Tablet PO (11:32)
[2018-10-17] MEDS: Clopidogrel Bisulfate 75 MG Tablet PO (11:33)
[2018-10-17] MEDS: Collagenase 30gm Tube 1 APPLIC TOPICAL (11:33)
[2018-10-17] MEDS: amLODIPine 10 MG Tablet PO (11:33)
[2018-10-17] MEDS: hydrALAZINE 25 MG Tablet PO (11:34)
[2018-10-17] MEDS: Sertraline 100 MG Tablet PO (11:34)
--- NOTE | 2018-10-17 12:10 | NURSING ---
wound photo: left medial heel
--- NOTE | 2018-10-17 12:10 | NURSING ---
wound photo: right heel
--- NOTE | 2018-10-17 12:55 | PCM.CONS.R ---
Consultation - Renal 10/17/18 PCP/ Referring MD: Requesting physician: [] Primary care physician: Out of Town Doctor Reason for Consultation:: aye ckd iiiB bsCR 1.88 - History of Present Illness History of Present Illness: The patient is a 62 year old M with DM-2 and CHF with r EF with EF ~30 percent biventricular CKD IIIb with BScr 1.88 + proteinuria due to diabetic nephropathy with glomerulosclerosis on bumex 3mg BID on SSRI amrgaret inhibitor and off and on lasix admitted with heel ulcer +enterococcus and MRSA no evidence of OM we were consulted for AYE creatinine peaked 3.77 - Allergies Allergies: Allergies metoclopramide HCl [From Reglan] Adverse Reaction (Verified 10/13/18 12:27) goofy, anxious, elevated BP ondansetron HCl [From Zofran] Adverse Reaction (Verified 10/13/18 12:27) goofy, anxious, elevated BP Cgyomkd-Eds-Tzl Reductase Inhibitor Adverse Reaction (Verified 10/13/18 16:05) rhabdomyolosis - Current Medications Current Medications: Current Medications Acetaminophen (Tylenol) 650 mg PO Q6H PRN PRN PRN Reason: Mild Pain (1-3)/Temp > 100.7 F Last Admin: 10/14/18 21:38 Dose: 650 mg Hydrocodone Bitart/Acetaminophen ([place] 5mg-325mg) 2 tablet PO Q6H PRN PRN PRN Reason: SEVERE PAIN (6-10/10) Last Admin: 10/17/18 06:33 Dose: 2 tablet Albuterol Sulfate (Ventolin Aerosols) 2.5 mg INHALATION Q2H PRN PRN PRN Reason: DYSPNEA Last Admin: 10/14/18 16:34 Dose: 2.5 mg Amlodipine Besylate (Norvasc) 10 mg PO DAILY [facility] Last Admin: 10/17/18 11:33 Dose: 10 mg Amoxicillin/Clavulanate Potassium (Augmentin Tablet) 500 mg PO QAM [facility] Last Admin: 10/17/18 11:31 Dose: 500 mg Aspirin (Aspirin, Baby) 81 mg PO DAILY@0800 [facility] Last Admin: 10/17/18 11:31 Dose: 81 mg Atorvastatin Calcium (Lipitor) 80 mg PO QHS [facility] Last Admin: 10/16/18 23:01 Dose: 80 mg Carvedilol (Coreg) 25 mg PO BID [facility] Last Admin: 10/17/18 11:31 Dose: 25 mg Clopidogrel Bisulfate (Plavix) 75 mg PO DAILY [facility] Last Admin: 10/17/18 11:33 Dose: 75 mg Collagenase (Santyl) 1 applic TOPICAL DAILY [facility]; Protocol Last Admin: 10/17/18 11:33 Dose: 1 applicatio Duloxetine HCl (Cymbalta) 30 mg PO DAILY [facility] Last Admin: 10/17/18 11:31 Dose: 30 mg Ferrous Sulfate (Ferrous Sulfate) 325 mg PO QODAY@0800 [facility] Last Admin: 10/16/18 08:52 Dose: 325 mg Gabapentin (Neurontin) 600 mg PO TID [facility] Last Admin: 10/17/18 11:34 Dose: 600 mg Heparin Sodium (Porcine) (Heparin Na) 5,000 unit SC Q8 [facility] Last Admin: 10/17/18 06:32 Dose: 5,000 unit Hydralazine HCl (Apresoline) 25 mg PO TID [facility] Last Admin: 10/17/18 11:34 Dose: 25 mg Hydroxyzine Pamoate (Vistaril Pamoate Capsule) 25 mg PO TID PRN PRN PRN Reason: ANXIETY Last Admin: 10/14/18 05:34 Dose: 25 mg Sodium Chloride () 1,000 mls @ 100 mls/hr IV .Q10H [facility] Last Admin: 10/17/18 11:27 Dose: 100 mls/hr Insulin Glargine (Lantus (Bkc)) 30 units SC BID [facility] Last Admin: 10/17/18 11:32 Dose: 30 u Insulin Human Lispro (Humalog Kwikpen (Bkc)) 0 unit SC ACHS [facility]; Protocol Last Admin: 10/17/18 11:34 Dose: Not Given Isosorbide Mononitrate (Imdur) 30 mg PO BID [facility] Last Admin: 10/17/18 11:32 Dose: 30 mg Levofloxacin (Levaquin Tablet) 250 mg PO Q48H [facility] Melatonin (Melatonin) 20 mg PO QHS PRN PRN Reason: SLEEP Nutritional Formula (Lactose Free) (Glucerna Shake) 120 ml PO 4X/DAY [facility] Last Admin: 10/17/18 11:32 Dose: 120 ml Promethazine HCl (Phenergan) 6.25 mg IV Q6H PRN PRN PRN Reason: NAUSEA/VOMITING Last Admin: 10/16/18 20:44 Dose: 6.25 mg Sertraline HCl (Zoloft) 100 mg PO DAILY [facility] Last Admin: 10/17/18 11:34 Dose: 100 mg Simethicone (Mylicon) 80 mg PO PCHS [facility] Last Admin: 10/17/18 11:31 Dose: 80 mg Sodium Chloride () 5 - 15 ml IV UD PRN PRN Reason: SALINE FLUSH Last Admin: 10/17/18 11:28 Dose: 10 ml Tizanidine HCl (Zanaflex) 8 mg PO TID PRN PRN Reason: SPASMS Last Admin: 10/16/18 20:44 Dose: 8 mg - Past Medical History Past Medical History (Chronic Problems): Chronic Problems mediport placement (Chronic) Hyperlipidemia (Chronic) DM type 2 (diabetes mellitus, type 2) (Chronic) Chronic CHF (congestive heart failure) (Chronic) ef=25% as of 04/04 Carotid artery stenosis (Chronic) R CEA CAD (coronary artery disease) (Chronic) extensive disease multiple stents Hx of CABG (Chronic) hx epidural abscess (Chronic) Obesity (Chronic) Benign hypertension (Chronic) - Past Surgical History Surgical History: appendectomy, cataract, cholecystectomy, coronary bypass surgery - 2004 - [place], herniorrhaphy, tonsillectomy, - - Cardiac stent placement ?24 (according to patient), right carotid endarterectomy. - Social History Smoking Status: Never smoker Alcohol: None - Family History Maternal History Items: No pertinent history Paternal History Items: Heart Disease - of an [place] at age 61 Sibling History Items: No pertinent history Review of Systems Constitutional: Denies: Chills, Fever, Weight Change HEENT: Reports: Difficulty Hearing Cardiovascular: Reports: Orthopnea, Palpitations Respiratory: Reports: Shortness of Breath Gastrointestinal: Reports: Dyspepsia Musculoskeletal: Reports: Joint stiffness, Joint swelling, Leg Pain Skin: Reports: Wounds Neurological: Denies: Numbness, Tingling, Focal weakness Psychiatric: Denies: Anxiety, Depression, Homicidal Ideations, Suicidal Ideations Hematologic/ Lymphatic: Reports: Adenopathy Patient Problems: Active and Suspected Problems AYE (acute kidney injury) (Acute) Cellulitis of right heel (Acute) - Physical Exam General: Alert, Oriented x3, Cooperative HEENT: Atraumatic, PERRLA, EOMI, Normocephalic Neck: Supple, No JVD, Negative Carotid Bruits Lungs: Clear to auscultation, Normal air movement Cardiovascular: Regular rate, No murmurs Abdomen: Bowel Sounds Present, Soft, Non Tender Extremities: No edema, Capillary Refill Less than 3 Seconds Skin: No rashes, No breakdown Musculoskeletal: No Tenderness to Palpation of Joints or Extremities Neurological: Cranial nerves II-XII grossly intact Psych/Mental Status: Normal Affect, Appropriate Vital Signs Temp Pulse Resp BP Pulse Ox 99.2 F H 60 18 112/56 L 95 10/17/18 02:08 10/17/18 11:34 10/17/18 02:08 10/17/18 06:39 10/17/18 02:08 Oxygen Flow Rate (L/min) 2 Oxygen Delivery Method Room Air Weight: 113.534 kg Body Mass Index (BMI) 36.9 Finger Stick Blood Glucose 42 Intake and Output for Last 24 Hours 10/15/18 10/16/18 10/17/18 23:59 23:59 23:59 Intake Total 2219 / 2219 2288 / 2288 1907 / 1907 Output Total 300 / 300 600 / 600 100 / 100 Balance 1919 / 1919 1688 / 1688 1807 / 1807 Microbiology Past 72 Hours 10/13/18 17:30 Gram Stain - Final Wound - Right Foot Wound Culture - Final Meth. resistant Staph. aureus Enterococcus faecalis Anaerobic Culture - Final No anaerobic bacteria isolated. 10/13/18 13:10 Blood Culture - Preliminary Blood Culture (Wb) - Right Hand No growth in 48 hours. 10/13/18 13:33 Blood Culture - Preliminary Blood Culture (Wb) - Left Hand No growth in 48 hours. Laboratory Tests Past 24 Hrs 10/17/18 05:46 Sodium 136 Potassium 4.9 Chloride 102 Carbon Dioxide 22.0 Anion Gap 12 BUN 72 H Creatinine 3.77 H Estim Creat Clear Calc 20.58 Est GFR (MDRD) Af Amer 21 L Est GFR (MDRD) Non-Af 17 L BUN/Creatinine Ratio 19.1 Glucose 69 L Calcium 8.4 L POC Glucose 10/17/18 10/17/18 10/17/18 06:30 02:52 02:14 POC Glucose 75 118 H 50 L 10/16/18 10/16/18 22:49 16:30 POC Glucose 117 H 141 H Assessment/Plan All Active Problems AYE (acute kidney injury) (Acute) Pain of right heel (Acute) Cellulitis of right heel (Acute) Non oliguric AYE On CKD IIIb Bscr 1.8 now peaked to 3.77 due to excessive diuresis and hemodynamic perturbation and vancomycin level high normal aimee now ischaemia ATN and also his diabetic nephropathy is worsening -decrease IVF 50ml/hr and discontinue after 12 hrs -Hold margaret and arb -Hold NSAID -No IV contrast -Keep MAP>65 mmHg CHF -HFrEF - bumex 1 mg BID -hold acein -Keep I/O -500ml -Hold IVF after 12 hrs DM2 -fair control -continue lantus and SSI Cellulitis -on levaquin -on augumentin - R/o AIN -dose anbx e GFR 30ml/min
--- NOTE | 2018-10-17 12:59 | CON.PCM_ITS ---
Consultation - Renal 10/17/18 PCP/ Referring MD: Requesting physician: [] Primary care physician: Out of Town Doctor Reason for Consultation:: aye ckd iiiB bsCR 1.88 - History of Present Illness History of Present Illness: The patient is a 62 year old M with DM-2 and CHF with r EF with EF ~30 percent biventricular CKD IIIb with BScr 1.88 + proteinuria due to diabetic nephropathy with glomerulosclerosis on bumex 3mg BID on SSRI margaret inhibitor and off and on lasix admitted with heel ulcer +enterococcus and MRSA no evidence of OM we were consulted for AYE creatinine peaked 3.77 - Allergies Allergies: Allergies metoclopramide HCl [From Reglan] Adverse Reaction (Verified 10/13/18 12:27) goofy, anxious, elevated BP ondansetron HCl [From Zofran] Adverse Reaction (Verified 10/13/18 12:27) goofy, anxious, elevated BP Rqsxdka-Nhy-Rxd Reductase Inhibitor Adverse Reaction (Verified 10/13/18 16:05) rhabdomyolosis - Current Medications Current Medications: Current Medications Acetaminophen (Tylenol) 650 mg PO Q6H PRN PRN PRN Reason: Mild Pain (1-3)/Temp > 100.7 F Last Admin: 10/14/18 21:38 Dose: 650 mg Hydrocodone Bitart/Acetaminophen ([place] 5mg-325mg) 2 tablet PO Q6H PRN PRN PRN Reason: SEVERE PAIN (6-10/10) Last Admin: 10/17/18 06:33 Dose: 2 tablet Albuterol Sulfate (Ventolin Aerosols) 2.5 mg INHALATION Q2H PRN PRN PRN Reason: DYSPNEA Last Admin: 10/14/18 16:34 Dose: 2.5 mg Amlodipine Besylate (Norvasc) 10 mg PO DAILY [facility] Last Admin: 10/17/18 11:33 Dose: 10 mg Amoxicillin/Clavulanate Potassium (Augmentin Tablet) 500 mg PO QAM [facility] Last Admin: 10/17/18 11:31 Dose: 500 mg Aspirin (Aspirin, Baby) 81 mg PO DAILY@0800 [facility] Last Admin: 10/17/18 11:31 Dose: 81 mg Atorvastatin Calcium (Lipitor) 80 mg PO QHS [facility] Last Admin: 10/16/18 23:01 Dose: 80 mg Carvedilol (Coreg) 25 mg PO BID [facility] Last Admin: 10/17/18 11:31 Dose: 25 mg Clopidogrel Bisulfate (Plavix) 75 mg PO DAILY [facility] Last Admin: 10/17/18 11:33 Dose: 75 mg Collagenase (Santyl) 1 applic TOPICAL DAILY [facility]; Protocol Last Admin: 10/17/18 11:33 Dose: 1 applicatio Duloxetine HCl (Cymbalta) 30 mg PO DAILY [facility] Last Admin: 10/17/18 11:31 Dose: 30 mg Ferrous Sulfate (Ferrous Sulfate) 325 mg PO QODAY@0800 [facility] Last Admin: 10/16/18 08:52 Dose: 325 mg Gabapentin (Neurontin) 600 mg PO TID [facility] Last Admin: 10/17/18 11:34 Dose: 600 mg Heparin Sodium (Porcine) (Heparin Na) 5,000 unit SC Q8 [facility] Last Admin: 10/17/18 06:32 Dose: 5,000 unit Hydralazine HCl (Apresoline) 25 mg PO TID [facility] Last Admin: 10/17/18 11:34 Dose: 25 mg Hydroxyzine Pamoate (Vistaril Pamoate Capsule) 25 mg PO TID PRN PRN PRN Reason: ANXIETY Last Admin: 10/14/18 05:34 Dose: 25 mg Sodium Chloride () 1,000 mls @ 100 mls/hr IV .Q10H [facility] Last Admin: 10/17/18 11:27 Dose: 100 mls/hr Insulin Glargine (Lantus (Bkc)) 30 units SC BID [facility] Last Admin: 10/17/18 11:32 Dose: 30 u Insulin Human Lispro (Humalog Kwikpen (Bkc)) 0 unit SC ACHS [facility]; Protocol Last Admin: 10/17/18 11:34 Dose: Not Given Isosorbide Mononitrate (Imdur) 30 mg PO BID [facility] Last Admin: 10/17/18 11:32 Dose: 30 mg Levofloxacin (Levaquin Tablet) 250 mg PO Q48H [facility] Melatonin (Melatonin) 20 mg PO QHS PRN PRN Reason: SLEEP Nutritional Formula (Lactose Free) (Glucerna Shake) 120 ml PO 4X/DAY [facility] Last Admin: 10/17/18 11:32 Dose: 120 ml Promethazine HCl (Phenergan) 6.25 mg IV Q6H PRN PRN PRN Reason: NAUSEA/VOMITING Last Admin: 10/16/18 20:44 Dose: 6.25 mg Sertraline HCl (Zoloft) 100 mg PO DAILY [facility] Last Admin: 10/17/18 11:34 Dose: 100 mg Simethicone (Mylicon) 80 mg PO PCHS [facility] Last Admin: 10/17/18 11:31 Dose: 80 mg Sodium Chloride () 5 - 15 ml IV UD PRN PRN Reason: SALINE FLUSH Last Admin: 10/17/18 11:28 Dose: 10 ml Tizanidine HCl (Zanaflex) 8 mg PO TID PRN PRN Reason: SPASMS Last Admin: 10/16/18 20:44 Dose: 8 mg - Past Medical History Past Medical History (Chronic Problems): Chronic Problems mediport placement (Chronic) Hyperlipidemia (Chronic) DM type 2 (diabetes mellitus, type 2) (Chronic) Chronic CHF (congestive heart failure) (Chronic) ef=25% as of 04/04 Carotid artery stenosis (Chronic) R CEA CAD (coronary artery disease) (Chronic) extensive disease multiple stents Hx of CABG (Chronic) hx epidural abscess (Chronic) Obesity (Chronic) Benign hypertension (Chronic) - Past Surgical History Surgical History: appendectomy, cataract, cholecystectomy, coronary bypass surgery - 2004 - [place], herniorrhaphy, tonsillectomy, - - Cardiac stent place ment ?24 (according to patient), right carotid endarterectomy. - Social History Smoking Status: Never smoker Alcohol: None - Family History Maternal History Items: No pertinent history Paternal History Items: Heart Disease - of an [place] at age 61 Sibling History Items: No pertinent history Review of Systems Constitutional: Denies: Chills, Fever, Weight Change HEENT: Reports: Difficulty Hearing Cardiovascular: Reports: Orthopnea, Palpitations Respiratory: Reports: Shortness of Breath Gastrointestinal: Reports: Dyspepsia Musculoskeletal: Reports: Joint stiffness, Joint swelling, Leg Pain Skin: Reports: Wounds Neurological: Denies: Numbness, Tingling, Focal weakness Psychiatric: Denies: Anxiety, Depression, Homicidal Ideations, Suicidal Ideations Hematologic/ Lymphatic: Reports: Adenopathy Patient Problems: Active and Suspected Problems AYE (acute kidney injury) (Acute) Cellulitis of right heel (Acute) - Physical Exam General: Alert, Oriented x3, Cooperative HEENT: Atraumatic, PERRLA, EOMI, Normocephalic Neck: Supple, No JVD, Negative Carotid Bruits Lungs: Clear to auscultation, Normal air movement Cardiovascular: Regular rate, No murmurs Abdomen: Bowel Sounds Present, Soft, Non Tender Extremities: No edema, Capillary Refill Less than 3 Seconds Skin: No rashes, No breakdown Musculoskeletal: No Tenderness to Palpation of Joints or Extremities Neurological: Cranial nerves II-XII grossly intact Psych/Mental Status: Normal Affect, Appropriate Vital Signs Temp Pulse Resp BP Pulse Ox 99.2 F H 60 18 112/56 L 95 10/17/18 02:08 10/17/18 11:34 10/17/18 02:08 10/17/18 06:39 10/17/18 02:08 Oxygen Flow Rate (L/min) 2 Oxygen Delivery Method Room Air Weight: 113.534 kg Body Mass Index (BMI) 36.9 Finger Stick Blood Glucose 42 Intake and Output for Last 24 Hours 10/15/18 10/16/18 10/17/18 23:59 23:59 23:59 Intake Total 2219 / 2219 2288 / 2288 1907 / 1907 Output Total 300 / 300 600 / 600 100 / 100 Balance 1919 / 1919 1688 / 1688 1807 / 1807 Microbiology Past 72 Hours 10/13/18 17:30 Gram Stain - Final Wound - Right Foot Wound Culture - Final Meth. resistant Staph. aureus Enterococcus faecalis Anaerobic Culture - Final No anaerobic bacteria isolated. 10/13/18 13:10 Blood Culture - Preliminary Blood Culture (Wb) - Right Hand No growth in 48 hours. 10/13/18 13:33 Blood Culture - Preliminary Blood Culture (Wb) - Left Hand No growth in 48 hours. Laboratory Tests Past 24 Hrs 10/17/18 05:46 Sodium 136 Potassium 4.9 Chloride 102 Carbon Dioxide 22.0 Anion Gap 12 BUN 72 H Creatinine 3.77 H Estim Creat Clear Calc 20.58 Est GFR (MDRD) Af Amer 21 L Est GFR (MDRD) Non-Af 17 L BUN/Creatinine Ratio 19.1 Glucose 69 L Calcium 8.4 L POC Glucose 10/17/18 10/17/18 10/17/18 06:30 02:52 02:14 POC Glucose 75 118 H 50 L 10/16/18 10/16/18 22:49 16:30 POC Glucose 117 H 141 H Assessment/Plan All Active Problems AYE (acute kidney injury) (Acute) Pain of right heel (Acute) Cellulitis of right heel (Acute) Non oliguric AYE On CKD IIIb Bscr 1.8 now peaked to 3.77 due to excessive diuresis and hemodynamic perturbation and vancomycin level high normal aimee now ischaemia ATN and also his diabetic nephropathy is worsening -decrease IVF 50ml/hr and discontinue after 12 hrs -Hold margaret and arb -Hold NSAID -No IV contrast -Keep MAP>65 mmHg CHF -HFrEF - bumex 1 mg BID -hold acein -Keep I/O -500ml -Hold IVF after 12 hrs DM2 -fair control -continue lantus and SSI Cellulitis -on levaquin -on augumentin - R/o AIN -dose anbx e GFR 30ml/min
--- NOTE | 2018-10-17 13:39 | PCM.PN.ID ---
Patient Problems: Active and Suspected Problems AYE (acute kidney injury) (Acute) Cellulitis of right heel (Acute) Subjective: Feeling ok, some nausea. No fever. - Physical Exam General: Alert, Cooperative, No apparent distress Lungs: Clear to auscultation, Normal air movement Cardiovascular: Regular rate, Regular Rhythm Abdomen: Soft, Non Tender, Non-Distended Skin: Ulcer/ Wound - reviewed photos, heels improving Vital Signs Temp Pulse Resp BP Pulse Ox 99.2 F H 60 18 112/56 L 95 10/17/18 02:08 10/17/18 11:34 10/17/18 02:08 10/17/18 06:39 10/17/18 02:08 Oxygen Flow Rate (L/min) 2 Oxygen Delivery Method Room Air Weight: 113.534 kg Body Mass Index (BMI) 36.9 Finger Stick Blood Glucose 42 Intake and Output for Last 24 Hours 10/15/18 10/16/18 10/17/18 23:59 23:59 23:59 Intake Total 2219 / 2219 2288 / 2288 1907 / 1907 Output Total 300 / 300 600 / 600 100 / 100 Balance 1919 / 1919 1688 / 1688 1807 / 1807 Microbiology Past 72 Hours 10/13/18 17:30 Gram Stain - Final Wound - Right Foot Wound Culture - Final Meth. resistant Staph. aureus Enterococcus faecalis Anaerobic Culture - Final No anaerobic bacteria isolated. 10/13/18 13:10 Blood Culture - Preliminary Blood Culture (Wb) - Right Hand No growth in 48 hours. 10/13/18 13:33 Blood Culture - Preliminary Blood Culture (Wb) - Left Hand No growth in 48 hours. Laboratory Tests Past 24 Hrs 10/17/18 05:46 Sodium 136 Potassium 4.9 Chloride 102 Carbon Dioxide 22.0 Anion Gap 12 BUN 72 H Creatinine 3.77 H Estim Creat Clear Calc 20.58 Est GFR (MDRD) Af Amer 21 L Est GFR (MDRD) Non-Af 17 L BUN/Creatinine Ratio 19.1 Glucose 69 L Calcium 8.4 L POC Glucose 10/17/18 10/17/18 10/17/18 06:30 02:52 02:14 POC Glucose 75 118 H 50 L 10/16/18 10/16/18 22:49 16:30 POC Glucose 117 H 141 H Medical Necessity - Tobacco Use Smoking Status: Never smoker Tobacco Use: Non-smoker Route of nutrition/ use of supplements: [] Nutritional Intake: [] IV Site: [] Corea Catheter: [] - Assessment/Plan Antibiotics: [] Assessment/Plan: [] Active and Suspected Problems AYE (acute kidney injury) (Acute) Pain of right heel (Acute) Cellulitis of right heel (Acute) MRSA and enterococcus R heel infected ulcer with DM neuropathy - Vanc level 10/15 was just above normal range. Not a candidate for linezolid as he is on 2 SSRIs. Will cover with levaquin and augmentin. No sign of bone involvement on exam per Dr. Chen or on bone scan. Stop date for 10 day course will be 10/22/18. AYE - worsened today, d/w nephrology Will follow
--- NOTE | 2018-10-17 13:48 | PCM.PROGNOTE ---
Patient Problems: Active and Suspected Problems AYE (acute kidney injury) (Acute) Cellulitis of right heel (Acute) Subjective: Patient being follow by Podiatry for bilateral heel ulcerations. Patient was evaluated by nephrology for AYE. Patient with no new pedal complaints, he was resting in bed. Patient afebrile. - Physical Exam General: Alert, Oriented x3, Cooperative, No apparent distress Extremities: No clubbing, No cyanosis, Capillary Refill Less than 3 Seconds, No Calf Tenderness, - - Ulceration to the posterior heel right foot - with mostly granular tissue and viable marings - ulceration continues to heal, margins closing in, ulcer is done to the subcutaneous tissue layer, minimal to no cellulitis, there is no drainage, no fluctuance, no crepitus, no visible abscess, there is no probe to bone or deeper structures, margins with no undermining. Ulceration / crack to the posterior left heel continues to heal with mostly granular tissue and viable marings, ulcer is down to the subcutaneous tissue layer, no cellulitis, no streaking, there is no drainage, no fluctuance, no crepitus, no visible abscess, there is no probe to bone or deeper structures, margins with no undermining. No new ulcerations or new areas of infection bilateral foot/ankle. No other break down bilateral foot/ankle/leg. Vital Signs Temp Pulse Resp BP Pulse Ox 99.2 F H 60 18 112/56 L 95 10/17/18 02:08 10/17/18 11:34 10/17/18 02:08 10/17/18 06:39 10/17/18 02:08 Oxygen Flow Rate (L/min) 2 Oxygen Delivery Method Room Air Weight: 113.534 kg Body Mass Index (BMI) 36.9 Finger Stick Blood Glucose 42 Intake and Output for Last 24 Hours 10/15/18 10/16/18 10/17/18 23:59 23:59 23:59 Intake Total 2219 / 2219 2288 / 2288 1907 / 1907 Output Total 300 / 300 600 / 600 100 / 100 Balance 1919 / 1919 1688 / 1688 1807 / 1807 Microbiology Past 72 Hours 10/13/18 17:30 Gram Stain - Final Wound - Right Foot Wound Culture - Final Meth. resistant Staph. aureus Enterococcus faecalis Anaerobic Culture - Final No anaerobic bacteria isolated. 10/13/18 13:10 Blood Culture - Preliminary Blood Culture (Wb) - Right Hand No growth in 48 hours. 10/13/18 13:33 Blood Culture - Preliminary Blood Culture (Wb) - Left Hand No growth in 48 hours. Laboratory Tests Past 24 Hrs 10/17/18 05:46 Sodium 136 Potassium 4.9 Chloride 102 Carbon Dioxide 22.0 Anion Gap 12 BUN 72 H Creatinine 3.77 H Estim Creat Clear Calc 20.58 Est GFR (MDRD) Af Amer 21 L Est GFR (MDRD) Non-Af 17 L BUN/Creatinine Ratio 19.1 Glucose 69 L Calcium 8.4 L POC Glucose 10/17/18 10/17/18 10/17/18 06:30 02:52 02:14 POC Glucose 75 118 H 50 L 10/16/18 10/16/18 22:49 16:30 POC Glucose 117 H 141 H Medical Necessity - Tobacco Use Smoking Status: Never smoker Tobacco Use: Non-smoker Assessment/Plan All Active Problems AYE (acute kidney injury) (Acute) Pain of right heel (Acute) Cellulitis of right heel (Acute) Ulcer right heel down to the subcutaneous tissue layer - healing Ulcer/crack left heel down to the subcutaneous tissue layer - healing Cellulitis right heel - MRSA - much improved Diabetes with peripheral neuropathy Acute kidney injury, chronic kidney disease Ulcerations healing. Continue with wound care bilateral heels: Santyl with overlying gauze/kerlix and margaret dressing - change daily. Patient to to keep heels offloaded at all times. No weightbearing right foot, ok to weightbear on left forefoot. Patient will need home health care once discharged. Clinically cellulitis much improved, he is being followed by Infectious Disease who is managing the antibiotics. No evidence of arterial disease to the lower extremity bilateral on noninvasive lower extremity arterial study. Medical management, AYE per medicine team and nephrology. Infectious Disease is managing antibiotics. Discussed and reviewed with patient. Podiatry will continue to follow.
[2018-10-17] MEDS: 0.9% Normal Saline 1,000 ML 50 ML IV (14:37)
[2018-10-17] MEDS: proMETHazine 25 MG/ML Syringe 6.25 MG IV ×2 (14:39→22:37)
[2018-10-17] MEDS: tiZANidine HCl 2 MG Tablet 8 MG PO ×2 (14:39→22:44)
[2018-10-17 17:45] LABS: Bedside Glucose 122 mg/dL (70-110)
[2018-10-17] MEDS: Bumetanide 1 MG/4 ML Vial IV (17:54)
[2018-10-17 22:25] LABS: Bedside Glucose 160 mg/dL (70-110)
[2018-10-17] MEDS: Atorvastatin Calcium 80 MG Tablet PO (22:44)
[2018-10-17] MEDS: Insulin Lispro 100 UNIT/ML INSULN.PEN SC (22:47)
--- NOTE | 2018-10-17 23:36 | NURSING ---
Pts HR maintaing in low 40's. Only presenting sx is fatigue. Sent Dr. Cuevas a text, will await his response.
--- NOTE | 2018-10-17 23:49 | EKG12_ITS ---
Test Reason : BRADYCARDIA Blood Pressure : / mmHG Vent. Rate : 041 BPM Atrial Rate : 041 BPM P-R Int : 264 ms QRS Dur : 168 ms QT Int : 548 ms P-R-T Axes : 059 251 038 degrees QTc Int : 452 ms Marked sinus bradycardia with 1st degree A-V block Right bundle branch block Abnormal ECG Confirmed by AMY KEY, ARMIDA ([id number]), supervising editor trailer MATHIEU KOENIG ([id number] on 10/22/2018 3:09:38 PM Referred By: NIHARIKA Confirmed By:ARMIDA REYES MD
[2018-10-18] VITALS (42 sets, daily range): BP systolic 88–161; BP diastolic 49–83; PULSE 40–79; RESP 7–19; TEMP 35.8–36.7; O2SAT 91–100
--- NOTE | 2018-10-18 00:25 | NURSING ---
Pt's VS recheck, per Dr. Cuevas's request, was HR 42 & BP 94/49. Pt's EKG read NS Fernando w/ 1st degree AV block. Informed Dr. Cuevas, and pt will be transferred to PCU promptly.
--- NOTE | 2018-10-18 00:47 | PCM.PN.BLA ---
Progress Note Patient is being seen for MRSA and enterococcus R heel infected ulcer with DM neuropathy and he is on antibiotics (Levaquin and Augmentin). He has a history of reduced heart failure with ejection fraction 20-25% (03/23/2015 heart cath) and with ICD; CAD status post stent and CABG; obstructive sleep apnea on CPAP; and diabetes. His home medication includes Lopressor 25 mg p.o. twice daily; Plavix; Imdur 30 mg p.o. twice daily; amlodipine 10 mg daily; aspirin; and hydralazine 25 mg p.o. 3 times daily. These medications were continued at the hospital. I was notified that patient has persistent heart rate in the 40s. Upon examination patient reported tiredness. His heart rate was 41 blood pressure was 94/49. EKG showed first-degree AV block.Was transferred to the PCU because of symptomatic bradycardia. Patient alert and oriented. Heart sounds S1, S2 present no murmur, gallop or rub. Lungs were clear to auscultate. Atropine 0.5 mg IV was ordered. Patient remained tired. His blood pressure was in the low 100s. Dopamine drip was started at 2 mcg/kg/min. His heart rate remained 40. His dopamine drip will be increased to 30 mcg/kg/min. However we are restricted by more dopamine infusion because of his poor renal function. Will consult cardiology.
--- NOTE | 2018-10-18 01:14 | NURSING ---
Report called down to Wendy in PCU
[2018-10-18] MEDS: 0.9% NaCl Peripheral Flush Adult/Peds IV ×5 (01:40→11:42)
[2018-10-18] MEDS: Atropine Sulfate 1 MG/10 ML Syringe 0.5 MG IV ×2 (01:46→02:53)
[2018-10-18 02:30] LABS: Absolute Lymphocyte Count 0.88 X10^3/ul (0.83-4.51); Absolute Neutrophil Count 7.1 X10^3/uL (2.0-7.7); Basophil# 0.04 X10^3/uL; Basophil% 0.4 % (0-1); Eosinophil# 0.35 X10^3/uL; Eosinophils% 3.7 % (0-5); Hematocrit 25.7 % (40-54); Lymphocyte # 0.88 X10^3/ul (4.0); Lymphocyte % 9.3 % (19-41); Mean Corp Hgb Conc 31.1 g/gl (32-36); Mean Corpuscular Hgb 27.9 pg (27.0-32.0); Mean Corpuscular Volume 89.5 fL (80-94); Mean Platelet Vol. 9.3 fl (6.2-12.0); Monocyte# 1.07 X10^3/uL; Monocyte% 11.3 % (0-10); Neutrophil % 75.1 % (47-70); Platelet Count 133 K/mm3 (150-450); RBC Distribution Width CV 16.2 % (11.6-14.6); RBC Distribution Width SD 53.3 fl (35.1-43.9); Red Blood Count 2.87 M/mm3 (4.6-6.2); White Blood Count 9.5 K/mm3 (4.4-11.0)
[2018-10-18 02:35] LABS: POSITIVE COUNT NO; POSITIVE DIFFERENTIAL NO; POSITIVE MORPHOLOGY NO
[2018-10-18 02:44] LABS: Anion Gap 9 (5-15); BUN 77 mg/dL (7-18); BUN/Creat Ratio 17.4 RATIO (10-20); Chloride 101 mmol/L (98-107); Creatinine, Serum 4.42 mg/dL (0.70-1.30); EST Glomerular Filtration Rate 15 mL/min (>60); Est Glom Filt Rate - Afr Amer 18 mL/min (>60); Estimated Creatinine Clearance 17.55 ml/min; Glucose 118 mg/dL (74-106); Potassium 4.9 mmol/L (3.5-5.1); Sodium Level 134 mmol/L (136-145)
[2018-10-18] MEDS: DOPamine IV 800 MG/250 ML IV.SOLN. IV (03:54)
[2018-10-18] MEDS: Alteplase 2 MG/2 ML Vial IV (04:09)
[2018-10-18] MEDS: Gabapentin 600 MG Tablet PO (05:37)
[2018-10-18] MEDS: levoFLOXacin 250 MG Tablet PO (05:37)
[2018-10-18] MEDS: Heparin Injection (Vial) 5,000 UNIT/ML VIAL 5000 UNIT SC ×3 (05:38→22:07)
[2018-10-18 06:56] LABS: Bedside Glucose 45 mg/dL (70-110)
[2018-10-18 07:30] LABS: Bedside Glucose 50 mg/dL (70-110)
[2018-10-18 07:30] LABS: Bedside Glucose 60 mg/dL (70-110)
--- NOTE | 2018-10-18 08:53 | ECHOCS_ITS ---
Reason For Study: CAD/ASHD Procedure This was a 2D Doppler, Color Flow transthoracic echocardiogram. The study was technically difficult. Contrast injection was performed. Exam performed portable in patient room. Left Ventricle Mildly dilated left ventricle. Mild concentric left ventricular hypertrophy. Mild to moderate segmental systolic dysfunction (see wall motion). The estimated ejection fraction is 45 %. There is evidence of diastolic dysfunction. Basal inferoseptal: Severely Hypokinetic. Basal anteroseptal: Severely Hypokinetic. Mid-Anterior : Hypokinetic. Mid-Lateral : Hypokinetic. Mid-Posterior: Hypokinetic. Mid-inferoseptal : Severly Hypokinetic. Mid-anteroseptal : Hypokinetic. Anterior [place] : Akinetic. Inferior [place] : Hypokinetic. Lateral [place] : Hypokinetic. Septal [place] : Hypokinetic. Right Ventricle Normal RV size. ICD or pacer leads identified within the right ventricle. Normal systolic function. Atria The left atrium is moderately enlarged. Normal right atrium. ICD or pacer leads identified within the right atrium. No doppler evidence for ASD. Mitral Valve There is no mitral annular calcification. Normal mitral valve. Mild-Moderate (1-2+) mitral valve insufficiency. Tricuspid Valve Normal tricuspid valve. Mild tricuspid valve insufficiency. Right ventricular systolic pressure estimated to be 37 mmHg. Aortic Valve Trisinus/trileaflet aortic valve. Mild diffuse aortic valve thickening. Pulmonic Valve The pulmonic valve is not well visualized. Trivial pulmonic valve insufficiency. Great Vessels Borderline enlarged aortic root. Pericardium/Pleural No pericardial effusion. Medication Diluted definity 2ml given slow IV push to enhance endocardial definition. MMode/2D Measurements & Calculations LVIDd: 5.6 cm IVSd: 1.3 cm Ao root diam: 3.9 cm LVIDs: 3.6 cm LVPWd: 1.4 cm LA dimension: 5.3 cm FS: 36.3 % LAV(MOD-bp): 83.8 ml LVAd ap4: 36.3 cm2 SV(MOD-sp4): 72.3 ml LAV(MOD-bp) Indexed: 36.9 ml/m2 EDV(MOD-sp4): 128.6 ml LAV(MOD-sp2): 71.1 ml EDV(sp4-el): 129.4 ml LAV(MOD-sp4): 88.2 ml LVAs ap4: 23.0 cm2 ESV(MOD-sp4): 56.3 ml ESV(sp4-el): 57.7 ml EF(MOD-sp4): 56.2 % EF(sp4-el): 55.4 % SV(sp4-el): 71.7 ml LA A4 area: 26.5 cm2 RA A4 area: 18.8 cm2 Time Measurements MV dec time: 0.32 sec Doppler Measurements & Calculations MV E max carloz: 102.1 cm/sec Lat Peak E' Carloz: 5.5 cm/sec MV V2 max: 113.0 cm/sec MV A max carloz: 29.7 cm/sec E/E' lat: 18.6 MV max P.1 mmHg MV E/A: 3.4 MV V2 mean: 52.2 cm/sec MV mean P.4 mmHg MV V2 VTI: 49.6 cm MV P1/2t max carloz: 113.0 cm/sec Ao V2 max: 104.9 cm/sec LV V1 max: 87.2 cm/sec MV P1/2t: 165.8 msec Ao max P.4 mmHg LV V1 max P.0 mmHg MV dec slope: 199.6 cm/sec2 MVA(P1/2t): 1.3 cm2 PA V2 max: 83.7 cm/sec TR max carloz: 271.2 cm/sec TR max P.4 mmHg Interpretation Summary The study was technically difficult. Contrast injection was performed. Mildly dilated left ventricle. Mild to moderate segmental systolic dysfunction (see wall motion). The estimated ejection fraction is 45 %. Mild concentric left ventricular hypertrophy. The left atrium is moderately enlarged. Mild-Moderate (1-2+) mitral valve insufficiency. Mild tricuspid valve insufficiency. Mild diffuse aortic valve thickening. Trivial pulmonic valve insufficiency. Borderline enlarged aortic root. Right ventricular systolic pressure estimated to be 37 mmHg. There is evidence of diastolic dysfunction. ICD or pacer leads identified within the right atrium ICD or pacer leads identified within the right ventricle. . Ordering Physician: Gumaro Ott Performed By: Gilmer Mejia RCS
--- NOTE | 2018-10-18 09:38 | PCM.PN.HOSP ---
Patient Problems: Active and Suspected Problems AYE (acute kidney injury) (Acute) Cellulitis of right heel (Acute) Subjective: bradycardic overnight, requiring dopamine gtt. Pt somnolent, awoke briefly, but then quickly fell asleep during my encounter, therefore, no history could be obtained from the patient. Vitals/I&O's: Vital Signs Temp Pulse Resp BP Pulse Ox 36.7 C 50 L 13 128/69 H 95 10/18/18 07:00 10/18/18 09:00 10/18/18 09:00 10/18/18 09:00 10/18/18 09:00 Oxygen Flow Rate (L/min) 2 Oxygen Delivery Method Nasal Cannula Weight: 113.534 kg Body Mass Index (BMI) 36.9 Finger Stick Blood Glucose 42 Intake and Output for Last 24 Hours 10/16/18 10/17/18 10/18/18 23:59 23:59 23:59 Intake Total 2288 / 2288 2460 / 2460 1419.9 / 1419.9 Output Total 600 / 600 600 / 600 Balance 1688 / 1688 1860 / 1860 1419.9 / 1419.9 General: - - somnolent. afebrile. HEENT: Atraumatic, Normocephalic Oral: Moist Mucosa Neck: No Nodes, Thyroid Normal Size and Texture Lungs: Clear to auscultation, Normal air movement, No rhonchi, No wheeze Cardiovascular: Regular rate, Regular Rhythm, Normal S1, Normal S2, No murmurs Abdomen: Bowel Sounds Present, Soft, Non Tender, Non-Distended, Obese Extremities: No Calf Tenderness, Edema Skin: No rashes, No breakdown Microbiology Past 72 Hours 10/13/18 17:30 Wound - Right Foot Gram Stain - Final 10/13/18 17:30 Wound - Right Foot Wound Culture - Final Meth. resistant Staph. aureus Enterococcus faecalis 10/13/18 17:30 Wound - Right Foot Anaerobic Culture - Final No anaerobic bacteria isolated. 10/13/18 13:10 Blood Culture (Wb) - Right Hand Blood Culture - Preliminary No growth in 48 hours. 10/13/18 13:33 Blood Culture (Wb) - Left Hand Blood Culture - Preliminary No growth in 48 hours. Laboratory Results 10/17/18 11:26: POC Glucose 122 H 10/17/18 20:42: POC Glucose 160 H 10/18/18 02:20: WBC 9.5, RBC 2.87 L, Hgb 8.0 L, Hct 25.7 L, MCV 89.5, MCH 27.9, MCHC 31.1 L, RDW 16.2 H, RDW Differential 53.3 H, Plt Count 133 L, MPV 9.3, Immature Gran % (Auto) 0.200, Neut % (Auto) 75.1 H, Lymph % (Auto) 9.3 L, [place] % (Auto) 11.3 H, Eos % (Auto) 3.7, Baso % (Auto) 0.4, Absolute Neuts (auto) 7.1, Absolute Lymphs (auto) 0.88, Total Counted Not Reportable 10/18/18 02:20: Sodium 134 L, Potassium 4.9, Chloride 101, Carbon Dioxide 24.0, Anion Gap 9, BUN 77 H, Creatinine 4.42 H, Estim Creat Clear Calc 17.55, Est GFR (MDRD) Af Amer 18 L, Est GFR (MDRD) Non-Af 15 L, BUN/Creatinine Ratio 17.4, Glucose 118 H, Calcium 8.0 L 10/18/18 06:48: POC Glucose 45 L 10/18/18 07:07: POC Glucose 50 L 10/18/18 07:28: POC Glucose 60 L Current Medications Acetaminophen (Tylenol) 650 mg PO Q6H PRN PRN PRN Reason: Mild Pain (1-3)/Temp > 100.7 F Last Admin: 10/14/18 21:38 Dose: 650 mg Hydrocodone Bitart/Acetaminophen (Juda 5mg-325mg) 2 tablet PO Q6H PRN PRN PRN Reason: SEVERE PAIN (6-10/10) Last Admin: 10/17/18 22:45 Dose: 2 tablet Albuterol Sulfate (Ventolin Aerosols) 2.5 mg INHALATION Q2H PRN PRN PRN Reason: DYSPNEA Last Admin: 10/14/18 16:34 Dose: 2.5 mg Amoxicillin/Clavulanate Potassium (Augmentin Tablet) 500 mg PO QAM [facility] Last Admin: 10/17/18 11:31 Dose: 500 mg Aspirin (Aspirin, Baby) 81 mg PO DAILY@0800 [facility] Last Admin: 10/17/18 11:31 Dose: 81 mg Atorvastatin Calcium (Lipitor) 80 mg PO QHS [facility] Last Admin: 10/17/18 22:44 Dose: 80 mg Atropine Sulfate () 0.5 mg IV Q5M PRN PRN Reason: Heart rate<50 Last Admin: 10/18/18 02:53 Dose: 0.5 mg Bumetanide (Bumex) 1 mg IV BID@1000,1800 [facility] Last Admin: 10/17/18 17:54 Dose: 1 mg Clopidogrel Bisulfate (Plavix) 75 mg PO DAILY [facility] Last Admin: 10/17/18 11:33 Dose: 75 mg Collagenase (Santyl) 1 applic TOPICAL DAILY [facility]; Protocol Last Admin: 10/17/18 11:33 Dose: 1 applicatio Dextrose (D50w Syringe) 0 gm IV X1 PRN; Protocol PRN Reason: Hypoglycemia Duloxetine HCl (Cymbalta) 30 mg PO DAILY [facility] Last Admin: 10/17/18 11:31 Dose: 30 mg Ferrous Sulfate (Ferrous Sulfate) 325 mg PO QODAY@0800 [facility] Last Admin: 10/16/18 08:52 Dose: 325 mg Gabapentin (Neurontin) 600 mg PO TID [facility] Last Admin: 10/18/18 05:37 Dose: 600 mg Glucagon () 1 mg IM .X1 PRN PRN Reason: Hypoglycemia Heparin Sodium (Beef Lung) () 50 units IV UD PRN PRN Reason: HEPARIN FLUSH Heparin Sodium (Porcine) (Heparin Na) 5,000 unit SC Q8 [facility] Last Admin: 10/18/18 05:38 Dose: 5,000 unit Hydroxyzine Pamoate (Vistaril Pamoate Capsule) 25 mg PO TID PRN PRN PRN Reason: ANXIETY Last Admin: 10/14/18 05:34 Dose: 25 mg Sodium Chloride () 250 mls @ 15 mls/hr IV .[id number] PRN PRN Reason: SALINE FLUSH Dopamine HCl/Dextrose () 800 mg in 250 mls @ 4.258 mls/hr IV .[id number] [facility]; Protocol Last Admin: 10/18/18 03:54 Dose: 4.258 mls/hr Insulin Glargine (Lantus (Bkc)) 20 units SC BID [facility] Insulin Human Lispro (Humalog Kwikpen (Bk)) 0 unit SC ACHS [facility]; Protocol Last Admin: 10/18/18 06:55 Dose: Not Given Levofloxacin (Levaquin Tablet) 250 mg PO Q48H [facility] Last Admin: 10/18/18 05:37 Dose: 250 mg Melatonin (Melatonin) 20 mg PO QHS PRN PRN Reason: SLEEP Nutritional Formula (Lactose Free) (Glucerna Shake) 120 ml PO 4X/DAY [facility] Last Admin: 10/17/18 22:46 Dose: 120 ml Promethazine HCl (Phenergan) 6.25 mg IV Q6H PRN PRN PRN Reason: NAUSEA/VOMITING Last Admin: 10/17/18 22:37 Dose: 6.25 mg Sertraline HCl (Zoloft) 100 mg PO DAILY [facility] Last Admin: 10/17/18 11:34 Dose: 100 mg Simethicone (Mylicon) 80 mg PO PCHS [facility] Last Admin: 10/17/18 22:44 Dose: 80 mg Sodium Chloride () 5 - 15 ml IV UD PRN PRN Reason: SALINE FLUSH Sodium Chloride () 10 ml IV UD PRN PRN Reason: R PORT FLUSH Tizanidine HCl (Zanaflex) 8 mg PO TID PRN PRN Reason: SPASMS Last Admin: 10/17/18 22:44 Dose: 8 mg Medical Necessity - Tobacco Use Smoking Status: Never smoker Tobacco Use: Non-smoker Assessment/Plan All Active Problems AYE (acute kidney injury) (Acute) Pain of right heel (Acute) Cellulitis of right heel (Acute) 1. Heel cellulitis no obvious osteomyelitis culture + for MRSA on levaquin and augmentin podiatry and ID following ID consult given the MRSA and now AYE Lower extremity duplex ordered. 2. AYE new, worse again today oliguric on CKD 3 suspect d/t vanc v Bumex or combination continue IVF FEUrea 14.26, consistent with prerenal azotemia started on Bumex, IV fluids completed Nephrology on page to see if any changes or need for [employer] 3. DM2 hypoglycemic today will decrease Lantus 20 bid for now. 4. HFrEF EF 40% from 2014 compensated at this time. continue carvedilol, hydralazine, imdur not candidate for ACEi/ARB given AYE 5. Encephalopathy Metabolic v toxic v combined DC potentiating medications (Juda, neurontin) 6. Bradycardia on Dopamine gtt Coreg discontinued cardiology consult 7. DVT proph: SQ heparin. Code Visit Inpatient E&M: 01565 Subs Hosp L2
[2018-10-18] MEDS: Dextrose 50%-Water 25 GM/50 ML DISP.SYRIN IV (09:45)
--- NOTE | 2018-10-18 09:46 | PN_ITS ---
Patient Problems: Active and Suspected Problems AYE (acute kidney injury) (Acute) Cellulitis of right heel (Acute) Subjective: bradycardic overnight, requiring dopamine gtt. Pt somnolent, awoke briefly, but then quickly fell asleep during my encounter, therefore, no history could be obtained from the patient. Vitals/I&O's: Vital Signs Temp Pulse Resp BP Pulse Ox 36.7 C 50 L 13 128/69 H 95 10/18/18 07:00 10/18/18 09:00 10/18/18 09:00 10/18/18 09:00 10/18/18 09:00 Oxygen Flow Rate (L/min) 2 Oxygen Delivery Method Nasal Cannula Weight: 113.534 kg Body Mass Index (BMI) 36.9 Finger Stick Blood Glucose 42 Intake and Output for Last 24 Hours 10/16/18 10/17/18 10/18/18 23:59 23:59 23:59 Intake Total 2288 / 2288 2460 / 2460 1419.9 / 1419.9 Output Total 600 / 600 600 / 600 Balance 1688 / 1688 1860 / 1860 1419.9 / 1419.9 General: - - somnolent. afebrile. HEENT: Atraumatic, Normocephalic Oral: Moist Mucosa Neck: No Nodes, Thyroid Normal Size and Texture Lungs: Clear to auscultation, Normal air movement, No rhonchi, No wheeze Cardiovascular: Regular rate, Regular Rhythm, Normal S1, Normal S2, No murmurs Abdomen: Bowel Sounds Present, Soft, Non Tender, Non-Distended, Obese Extremities: No Calf Tenderness, Edema Skin: No rashes, No breakdown Microbiology Past 72 Hours 10/13/18 17:30 Wound - Right Foot Gram Stain - Final 10/13/18 17:30 Wound - Right Foot Wound Culture - Final Meth. resistant Staph. aureus Enterococcus faecalis 10/13/18 17:30 Wound - Right Foot Anaerobic Culture - Final No anaerobic bacteria isolated. 10/13/18 13:10 Blood Culture (Wb) - Right Hand Blood Culture - Preliminary No growth in 48 hours. 10/13/18 13:33 Blood Culture (Wb) - Left Hand Blood Culture - Preliminary No growth in 48 hours. Laboratory Results 10/17/18 11:26: POC Glucose 122 H 10/17/18 20:42: POC Glucose 160 H 10/18/18 02:20: WBC 9.5, RBC 2.87 L, Hgb 8.0 L, Hct 25.7 L, MCV 89.5, MCH 27.9, MCHC 31.1 L, RDW 16.2 H, RDW Differential 53.3 H, Plt Count 133 L, MPV 9.3, Immature Gran % (Auto) 0.200, Neut % (Auto) 75.1 H, Lymph % (Auto) 9.3 L, [place] % (Auto) 11.3 H, Eos % (Auto) 3.7, Baso % (Auto) 0.4, Absolute Neuts (auto) 7.1, Absolute Lymphs (auto) 0.88, Total Counted Not Reportable 10/18/18 02:20: Sodium 134 L, Potassium 4.9, Chloride 101, Carbon Dioxide 24.0, Anion Gap 9, BUN 77 H, Creatinine 4.42 H, Estim Creat Clear Calc 17.55, Est GFR (MDRD) Af Amer 18 L, Est GFR (MDRD) Non-Af 15 L, BUN/Creatinine Ratio 17.4, Glucose 118 H, Calcium 8.0 L 10/18/18 06:48: POC Glucose 45 L 10/18/18 07:07: POC Glucose 50 L 10/18/18 07:28: POC Glucose 60 L Current Medications Acetaminophen (Tylenol) 650 mg PO Q6H PRN PRN PRN Reason: Mild Pain (1-3)/Temp > 100.7 F Last Admin: 10/14/18 21:38 Dose: 650 mg Hydrocodone Bitart/Acetaminophen ([place]ar[place] 5mg-325mg) 2 tablet PO Q6H PRN PRN PRN Reason: SEVERE PAIN (6-10/10) Last Admin: 10/17/18 22:45 Dose: 2 tablet Albuterol Sulfate (Ventolin Aerosols) 2.5 mg INHALATION Q2H PRN PRN PRN Reason: DYSPNEA Last Admin: 10/14/18 16:34 Dose: 2.5 mg Amoxicillin/Clavulanate Potassium (Augmentin Tablet) 500 mg PO QAM [facility] Last Admin: 10/17/18 11:31 Dose: 500 mg Aspirin (Aspirin, Baby) 81 mg PO DAILY@0800 [facility] Last Admin: 10/17/18 11:31 Dose: 81 mg Atorvastatin Calcium (Lipitor) 80 mg PO QHS [facility] Last Admin: 10/17/18 22:44 Dose: 80 mg Atropine Sulfate () 0.5 mg IV Q5M PRN PRN Reason: Heart rate<50 Last Admin: 10/18/18 02:53 Dose: 0.5 mg Bumetanide (Bumex) 1 mg IV BID@1000,1800 [facility] Last Admin: 10/17/18 17:54 Dose: 1 mg Clopidogrel Bisulfate (Plavix) 75 mg PO DAILY [facility] Last Admin: 10/17/18 11:33 Dose: 75 mg Collagenase (Santyl) 1 applic TOPICAL DAILY [facility]; Protocol Last Admin: 10/17/18 11:33 Dose: 1 applicatio Dextrose (D50w Syringe) 0 gm IV X1 PRN; Protocol PRN Reason: Hypoglycemia Duloxetine HCl (Cymbalta) 30 mg PO DAILY [facility] Last Admin: 10/17/18 11:31 Dose: 30 mg Ferrous Sulfate (Ferrous Sulfate) 325 mg PO QODAY@0800 [facility] Last Admin: 10/16/18 08:52 Dose: 325 mg Gabapentin (Neurontin) 600 mg PO TID [facility] Last Admin: 10/18/18 05:37 Dose: 600 mg Glucagon () 1 mg IM .X1 PRN PRN Reason: Hypoglycemia Heparin Sodium (Beef Lung) () 50 units IV UD PRN PRN Reason: HEPARIN FLUSH Heparin Sodium (Porcine) (Heparin Na) 5,000 unit SC Q8 [facility] Last Admin: 10/18/18 05:38 Dose: 5,000 unit Hydroxyzine Pamoate (Vistaril Pamoate Capsule) 25 mg PO TID PRN PRN PRN Reason: ANXIETY Last Admin: 10/14/18 05:34 Dose: 25 mg Sodium Chloride () 250 mls @ 15 mls/hr IV .[id number] PRN PRN Reason: SALINE FLUSH Dopamine HCl/Dextrose () 800 mg in 250 mls @ 4.258 mls/hr IV .[id number] [facility]; Protocol Last Admin: 10/18/18 03:54 Dose: 4.258 mls/hr Insulin Glargine (Lantus (Bkc)) 20 units SC BID [facility] Insulin Human Lispro (Humalog Kwikpen (Bk)) 0 unit SC ACHS [facility]; Protocol Last Admin: 10/18/18 06:55 Dose: Not Given Levofloxacin (Levaquin Tablet) 250 mg PO Q48H [facility] Last Admin: 10/18/18 05:37 Dose: 250 mg Melatonin (Melatonin) 20 mg PO QHS PRN PRN Reason: SLEEP Nutritional Formula (Lactose Free) (Glucerna Shake) 120 ml PO 4X/DAY [facility] Last Admin: 10/17/18 22:46 Dose: 120 ml Promethazine HCl (Phenergan) 6.25 mg IV Q6H PRN PRN PRN Reason: NAUSEA/VOMITING Last Admin: 10/17/18 22:37 Dose: 6.25 mg Sertraline HCl (Zoloft) 100 mg PO DAILY [facility] Last Admin: 10/17/18 11:34 Dose: 100 mg Simethicone (Mylicon) 80 mg PO PCHS [facility] Last Admin: 10/17/18 22:44 Dose: 80 mg Sodium Chloride () 5 - 15 ml IV UD PRN PRN Reason: SALINE FLUSH Sodium Chloride () 10 ml IV UD PRN PRN Reason: R PORT FLUSH Tizanidine HCl (Zanaflex) 8 mg PO TID PRN PRN Reason: SPASMS Last Admin: 10/17/18 22:44 Dose: 8 mg Medical Necessity - Tobacco Use Smoking Status: Never smoker Tobacco Use: Non-smoker Assessment/Plan All Active Problems AYE (acute kidney injury) (Acute) Pain of right heel (Acute) Cellulitis of right heel (Acute) 1. Heel cellulitis * no obvious osteomyelitis * culture + for MRSA * on levaquin and augmentin * podiatry and ID following * ID consult given the MRSA and now AYE * Lower extremity duplex ordered. 2. AYE * new, worse again today * oliguric * on CKD 3 * suspect d/t vanc v Bumex or combination * continue IVF * FEUrea 14.26, consistent with prerenal azotemia * started on Bumex, IV fluids completed * Nephrology on page to see if any changes or need for [employer]MI[employer] 3. DM2 * hypoglycemic today * will decrease Lantus 20 bid for now. 4. HFrEF * EF 40% from 2013 * compensated at this time. * continue carvedilol, hydralazine, imdur * not candidate for ACEi/ARB given AYE 5. Encephalopathy * Metabolic v toxic v combined * DC potentiating medications (Scarbro, neurontin) 6. Bradycardia * on Dopamine gtt * Coreg discontinued * cardiology consult 7. DVT proph: SQ heparin. Code Visit Inpatient E&M: 61768 Subs Hosp L2
[2018-10-18 09:51] LABS: Bedside Glucose 157 mg/dL (70-110)
[2018-10-18 09:51] LABS: Bedside Glucose 53 mg/dL (70-110)
--- NOTE | 2018-10-18 09:55 | NURSING ---
pt very lethargic this AM. BG checked. Amp of D50 given with Dr. Ott at the bedside. BG rechecked with result of 157. pt still very lethargic. STAT ABG ordered per Dr. Ott
[2018-10-18 10:21] LABS: Base Excess -3 mmol/L (-2 to +2); Bicarbonate 23.8 mmol/L (22-26); Blood Gas Specimen Type ART; O2 Delivery Device Nasal Can; PO2 70 mmHG (75-100); SITE R Brachial; SO2 91 % (95-99); Time Given 1020; Total Carbon Dioxide 25 mmol/L; pH 7.26 (7.35-7.45)
[2018-10-18] MEDS: Collagenase 30gm Tube 1 APPLIC TOPICAL (10:40)
--- NOTE | 2018-10-18 10:46 | CPS ---
Pt placed back on home cpap/bipap unit. made aware of ABG and Placement of home unit.
--- NOTE | 2018-10-18 11:39 | PCM.CONS.C ---
Problem List (1) CAD (coronary artery disease) Status: Chronic Comment: extensive disease multiple stents (2) S/P PTCA (percutaneous transluminal coronary angioplasty) Status: Chronic (3) Hx of CABG Status: Chronic (4) Cardiomyopathy Status: Chronic Qualifiers: Cardiomyopathy type: ischemic Qualified Code(s): I25.5 - Ischemic cardiomyopathy (5) Chronic CHF (congestive heart failure) Status: Chronic Comment: ef=25% as of 04/04 (6) ICD (implantable cardioverter-defibrillator) in place Status: Chronic (7) Hyperlipidemia Status: Chronic (8) Benign hypertension Status: Chronic (9) DM type 2 (diabetes mellitus, type 2) Status: Chronic (10) Carotid artery stenosis Status: Chronic Comment: R CEA (11) AYE (acute kidney injury) Status: Acute (12) Cellulitis of right heel Status: Acute Reason for Consult Date of Consultation: 10/18/18 History of Present Illness: The patient is a 62 year old male who previously been evaluated by Faisal Rg MD of the [facility] and currently follows with cardiology in [place], [place], who is referred for evaluation of his cardiovascular status which has included underlying CAD, PCI, CABG, ischemic mediated cardiomyopathy, chronic systolic CHF, and single chamber ICD superimposed on hyperlipidemia, hypertension, diabetes mellitus, carotid artery disease, acute renal insufficiency, and acute lower extremity cellulitis with concerns of possible bradycardia/hypotension. The patient was brought to the hospital for concerns of a lower extremity cellulitis. He has been receiving medical management. He was subsequently noted to have no new acute coronary syndrome. However there is concerns that he became somewhat bradycardic and hypotensive. Also. More challenging to arouse. He was placed in the PCU where he underwent medical management with removal of any rate limiting medications, the addition of atropine, and the addition of IV dopamine. He was noted to be in what appeared to be an underlying sinus rhythm/sinus bradycardia with a first-degree AV block with ventricular rates approaching 40 bpm as well as intermittent ventricular paced rhythm at approximately 40 bpm. He has been somewhat challenging to arouse. He will eventually open his eyes and speak. He mumbles. He knows he is being followed by cardiology in [place], [place]. He does not appear to complain of ongoing chest discomfort or acute shortness of breath or dyspnea. He does not recall having any obvious palpitations or ICD discharge. Without ongoing verbal interaction he quickly returns to sleep. He underwent laboratory studies. There were concerns of hypoglycemia. He was administered D50. His glucose level improved. However his level of alertness did not improved. An ABG was performed. He was noted to have evidence of acidosis with a pH of 7.26 with a PCO2 of 53 and a PO2 of 70. This was despite O2 nasal cannula. He was then placed back on BiPAP. He was also noted to have increasing BUN and creatinine levels thus raising concerns of possible uremia producing symptoms as well. Nephrology has been reconsulted to evaluate the patient. He has been on medical management including antibiotics for his cellulitis therapy. He is pending further cardiovascular evaluation with a transthoracic echocardiogram. Additional cardiovascular medical records have been requested for continuity of care. [] Past Medical History Allergies/Adverse Reactions: Allergies metoclopramide HCl [From Reglan] Adverse Reaction (Verified 10/13/18 12:27) goofy, anxious, elevated BP ondansetron HCl [From Zofran] Adverse Reaction (Verified 10/13/18 12:27) goofy, anxious, elevated BP Slnbijg-Ohm-Xio Reductase Inhibitor Adverse Reaction (Verified 10/13/18 16:05) rhabdomyolosis Home Medications: Ambulatory Orders Medication Instructions Recorded Clopidogrel Bisulfate [Plavix] 75 mg PO DAILY 02/08/15 Carvedilol [Coreg (Beta Ronald)] 25 mg PO BID 08/11/15 Isosorbide Mononitrate [Imdur] 30 mg PO BID 03/05/16 Tizanidine HCl 8 mg PO TID PRN 03/05/16 Amlodipine [Norvasc] 10 mg PO DAILY 10/13/18 Aspirin 81 mg PO DAILY 10/13/18 Atorvastatin Calcium [Lipitor] 80 mg PO QHS 10/13/18 Bumetanide 3 mg PO BID 10/13/18 Diclofenac [Voltaren] 75 mg PO BIDCM 10/13/18 Duloxetine HCl 30 mg PO DAILY 10/13/18 Ferrous Sulfate [Ferosul] 325 mg PO QODAY 10/13/18 Gabapentin 600 mg PO TID 10/13/18 Hydroxyzine HCl 25 mg PO TID PRN 10/13/18 Insulin Glargine,Hum.rec.anlog 30 unit SC BID 10/13/18 [Bambi Lozano U-100] Melatonin 20 mg PO QHS PRN 10/13/18 Sertraline HCl 100 mg PO DAILY 10/13/18 hydrALAZINE [Apresoline] 25 mg PO TID 10/13/18 Past Medical History (Chronic Problems): Chronic Problems S/P PTCA (percutaneous transluminal coronary angioplasty) (Chronic) Cardiomyopathy (Chronic) ICD (implantable cardioverter-defibrillator) in place (Chronic) mediport placement (Chronic) Hyperlipidemia (Chronic) DM type 2 (diabetes mellitus, type 2) (Chronic) Chronic CHF (congestive heart failure) (Chronic) ef=25% as of 04/04 Carotid artery stenosis (Chronic) R CEA CAD (coronary artery disease) (Chronic) extensive disease multiple stents Hx of CABG (Chronic) hx epidural abscess (Chronic) Obesity (Chronic) Benign hypertension (Chronic) Surgical History: appendectomy, cataract, cholecystectomy, coronary bypass surgery - 2004 - [place], herniorrhaphy, tonsillectomy, - - Cardiac stent placement ?24 (according to patient), right carotid endarterectomy. - *Family History Maternal History Items: No pertinent history Paternal History Items: Heart Disease - of an NC at age 61 Sibling History Items: No pertinent history Lives: With Family Smoking Status: Never smoker Tobacco Use: Non-smoker Alcohol: None Review of Systems - Review of Systems General: Reports: - - Lethargic Cardiovascular: Denies: Chest Discomfort, Shortness of Breath, Orthopnea, PND, Palpitations, Lightheadedness, Dizziness, Near Syncope, Syncope Subjectve: This is an obese 62-year-old white male wearing O2 nasal cannula and subsequently BiPAP who appears to be lethargic and difficult to arouse noting a right carotid endarterectomy scar and a median sternotomy scar. Objective: Vital Signs Temp Pulse Resp BP Pulse Ox 98.0 F 43 L 10 L 97/57 L 96 10/18/18 07:00 10/18/18 11:00 10/18/18 11:00 10/18/18 11:00 10/18/18 11:00 Oxygen Flow Rate (L/min) 2 Oxygen Delivery Method CPAP Weight: 250 lb 4.794 oz Body Mass Index (BMI) 36.9 Finger Stick Blood Glucose 42 Intake and Output for Last 24 Hours 12/27/18 12/28/18 12/29/18 23:59 23:59 23:59 Intake Total 2288 / 2288 2460 / 2460 1419.9 / 1419.9 Output Total 600 / 600 600 / 600 Balance 1688 / 1688 1860 / 1860 1419.9 / 1419.9 General: Lethargic HEENT: Atraumatic, Normocephalic Neck: Supple Lungs: - - No obvious rales or rhonchi Cardiovascular: Regular Rhythm, Normal S1, Normal S2 Abdomen: Bowel Sounds Present, Soft, Non Tender Extremities: Mild RLE Edema, Mild LLE Edema Psych/Mental Status: - - With allergic 10/18/18 02:20: WBC 9.5, RBC 2.87 L, Hgb 8.0 L, Hct 25.7 L, MCV 89.5, MCH 27.9, MCHC 31.1 L, RDW 16.2 H, RDW Differential 53.3 H, Plt Count 133 L, MPV 9.3, Immature Gran % (Auto) 0.200, Neut % (Auto) 75.1 H, Lymph % (Auto) 9.3 L, [place] % (Auto) 11.3 H, Eos % (Auto) 3.7, Baso % (Auto) 0.4, Absolute Neuts (auto) 7.1, Total Counted Not Reportable 10/18/18 02:20: Sodium 134 L, Potassium 4.9, Chloride 101, Carbon Dioxide 24.0, Anion Gap 9, BUN 77 H, Creatinine 4.42 H, Est GFR (MDRD) Af Amer 18 L, Est GFR (MDRD) Non-Af 15 L, BUN/Creatinine Ratio 17.4, Glucose 118 H, Calcium 8.0 L 10/18/18 10:16: pH 7.26 L, Bicarbonate Actual 23.8, POC Total CO2 25, Base Excess -3 L, O2 Saturation 91 L, ABG pCO2 53.0 H, ABG pO2 70 L, Saran Test NA Rhythm: As noted above EKG: This rhythm/sinus bradycardia; first-degree AV block; right bundle branch block pattern ECHO: 2015: [facility]: Left ventricle: LVEF 30-35%; left atrium dilated; Cardiac Cath: 03/24/2015: [facility]: Left main coronary artery normal; LAD occluded; LCx proximal stent patent with distal 80% stenosis; RCA with distal 70% stenosis; LV dysfunction with an LVEF of 20-25% PCI: 03/24/2015: [facility]: PTCA/EVERTON to the LCx system and PTCA/EVERTON to the right PDA system CT Surgery: Remote: Reported as having a PARK to the LAD and an SVG to diagonal branch-previously reported as occluded CXR: Preliminary evaluation: Single chamber ICD: Please see official report Assessment/Plan 1. CAD status post PCI status post CABG The patient has a history of underlying CAD. He is undergone PCI and CABG as previously noted. He did not present with symptoms of an acute coronary syndrome. He has not had objective findings, thus far, compatible with an acute coronary syndrome. He has been good with medical management. He can be monitored for any acute changes that would require further evaluation and/or care. 2. Ischemic mediated cardiomyopathy The patient does have a history of an underlying ischemic mediated cardiomyopathy. He has diminished LV systolic function. It is unclear whether this is significantly changed as his most recent cardiovascular evaluation available for review. Thus he will have a follow-up transthoracic echocardiogram to reassess his left ventricular wall motion and systolic function especially in light of his recent noncardiovascular issues and findings. This may help guide further evaluation and care. 3. Chronic systolic CHF The patient was not reported on admission to have acute on chronic systolic CHF. It is unclear whether or not his underlying cardiovascular disease process with respect to his vasculature issues, LV dysfunction issues, etc. are participating in his current event with respect to his lethargy etc. Thus at the present time his medications will be adjusted based upon any acute concerns. His left ventricle will be reassessed as described above. 4. ICD The patient does have a single-chamber ICD. It appears he has been in sinus rhythm/sinus bradycardia with a low ventricular rate as well as intermittent ventricular paced rhythm. The patient does not appear to know the name of his ICD. There are no ICD records available for review. A request has been made from [facility] in [place], [place] for additional cardiovascular medical record for continuity of care purposes. If need be, once the identity of his ICD is known, a request can be made to have his ICD interpreted. The interim, based upon concerns of his bradycardia dysrhythmia and whether or not it is contributing to any form of hypotension his rate limiting medications have been placed on hold. His ICD does appear to function as he has had episodes of ventricular paced rhythm at approximately 40 bpm. However, in the interim, he is also been placed on IV dopamine to assist with his underlying rate and blood pressure control. 5. Hyperlipidemia The patient will continue lipid-lowering therapy as deemed appropriate. 6. Hypertension In the patient's blood pressure has been transiently low. Is unclear whether this is related to his medications, his cardiovascular status, his acid base issues, previous infection and concerns of sepsis, etc. Thus there may be multiple etiologies. From a cardiac standpoint medications that may affect his blood pressure adversely by lowering it have been placed on hold. He will undergo further cardiovascular evaluation. In the interim he has been placed on IV dopamine therapy pending further evaluation. 7. Diabetes The patient will continue evaluation care per internal medicine. 8. Carotid artery disease The patient does have peripheral arterial occlusive disease. He is status post right carotid endarterectomy. He will continue risk factor evaluation care as deemed appropriate. 9. Acute renal insufficiency The patient's BUN and creatinine continue to elevate. There is concern this may be contributing to his lethargy. He is going to be reassessed by nephrology for consideration for hemodialysis therapy. 10. Cellulitis He has been treated medically for this. However he will be monitored for any obvious progression of infectious disease related issue that may contribute to his current state of lethargy. Overall the patient will continue evaluation and care. His hemodynamic changes may be multifactorial in etiology. His lethargy may be multifactorial in etiology. Thus he is being evaluated by multiple subspecialties at this time. Comment: The above was discussed and reviewed with Dr. Alvarez. This note was generated using a voice recognition system and there may be incorrect words, spelling or punctuation that were not noted when reviewing the office note prior to saving.
[2018-10-18] MEDS: Bumetanide 1 MG/4 ML Vial IV (11:42)
[2018-10-18 11:51] LABS: Bedside Glucose 100 mg/dL (70-110)
[2018-10-18] MEDS: proMETHazine 25 MG/ML Syringe 6.25 MG IV ×2 (12:30→18:55)
--- NOTE | 2018-10-18 13:12 | CASEMGMT ---
Social Work PCU Received consult for correction placement. Reviewed chart and noted that original plan for patient set as home with [facility]. Received report that patient is confused today. Attempted to reach patient's daughter Lorie, who is the [facility], at [phone]. No answer and mailbox if full so unable to leave a message. Plan: Social work can follow back up again on Saturday as needed regarding referral for possible SNF placement. -LOLY Myles, [employer]
--- NOTE | 2018-10-18 15:33 | PN.RENAL_ITS ---
Subjective: creatinine worsened SOB better - Physical Exam General: Alert, Oriented x3, Cooperative HEENT: Atraumatic, PERRLA, EOMI, Normocephalic Neck: Supple, No JVD, Negative Carotid Bruits Lungs: Clear to auscultation, Normal air movement Cardiovascular: Regular rate, No murmurs Abdomen: Bowel Sounds Present, Soft, Non Tender Extremities: No edema, Capillary Refill Less than 3 Seconds Skin: No rashes, No breakdown Musculoskeletal: No Tenderness to Palpation of Joints or Extremities Neurological: Cranial nerves II-XII grossly intact Psych/Mental Status: Normal Affect, Appropriate Vital Signs Temp Pulse Resp BP Pulse Ox 97.9 F 46 L 12 102/71 95 10/18/18 13:00 10/18/18 14:00 10/18/18 14:00 10/18/18 14:00 10/18/18 14:00 Oxygen Flow Rate (L/min) 2 Oxygen Delivery Method CPAP Weight: 113.534 kg Body Mass Index (BMI) 36.9 Finger Stick Blood Glucose 42 Intake and Output for Last 24 Hours 10/16/18 10/17/18 10/18/18 23:59 23:59 23:59 Intake Total 2288 / 2288 2460 / 2460 1579.8 / 1579.8 Output Total 600 / 600 600 / 600 Balance 1688 / 1688 1860 / 1860 1579.8 / 1579.8 Microbiology Past 72 Hours 10/13/18 13:10 Blood Culture - Final Blood Culture (Wb) - Right Hand No growth in 5 days. 10/13/18 13:33 Blood Culture - Final Blood Culture (Wb) - Left Hand No growth in 5 days. 10/13/18 17:30 Gram Stain - Final Wound - Right Foot Wound Culture - Final Meth. resistant Staph. aureus Enterococcus faecalis Anaerobic Culture - Final No anaerobic bacteria isolated. Laboratory Tests Past 24 Hrs 10/18/18 10/18/18 10/18/18 02:20 02:20 10:16 WBC 9.5 RBC 2.87 L Hgb 8.0 L Hct 25.7 L MCV 89.5 MCH 27.9 MCHC 31.1 L RDW 16.2 H RDW Differential 53.3 H Plt Count 133 L MPV 9.3 Immature Gran % (Auto) 0.200 Neut % (Auto) 75.1 H Lymph % (Auto) 9.3 L Petroleum % (Auto) 11.3 H Eos % (Auto) 3.7 Baso % (Auto) 0.4 Absolute Neuts (auto) 7.1 Absolute Lymphs (auto) 0.88 Total Counted Not Reportable Specimen Type ART Sample Site R Brachial pH 7.26 L Bicarbonate Actual 23.8 POC Total CO2 25 Base Excess -3 L O2 Saturation 91 L ABG pCO2 53.0 H ABG pO2 70 L Saran Test NA O2 Delivery Device Nasal Can Liter Flow 2.0 Blood Gas Notified Whom HOSP Blood Gas Notified Time 1020 Sodium 134 L Potassium 4.9 Chloride 101 Carbon Dioxide 24.0 Anion Gap 9 BUN 77 H Creatinine 4.42 H Estim Creat Clear Calc 17.55 Est GFR (MDRD) Af Amer 18 L Est GFR (MDRD) Non-Af 15 L BUN/Creatinine Ratio 17.4 Glucose 118 H Calcium 8.0 L POC Glucose 10/18/18 10/18/18 10/18/18 11:40 09:47 08:52 POC Glucose 100 157 H 53 L 10/18/18 10/18/18 10/18/18 07:28 07:07 06:48 POC Glucose 60 L 50 L 45 L 10/17/18 10/17/18 20:42 11:26 POC Glucose 160 H 122 H Medical Necessity - Tobacco Use Smoking Status: Never smoker Tobacco Use: Non-smoker Assessment/Plan All Active Problems AYE (acute kidney injury) (Acute) Pain of right heel (Acute) Cellulitis of right heel (Acute) Non oliguric AYE On CKD IIIb Bscr 1.8 now peaked to4 due to excessive diuresis and hemodynamic perturbation and vancomycin level high normal aimee now ischaemia ATN and also his diabetic nephropathy is worsening -decrease IVF 50ml/hr and discontinue after 12 hrs -Hold margaret and arb -Hold NSAID -No IV contrast -Keep MAP>65 mmHg CHF -HFrEF - bumex 1 mg BID -hold acein -Keep I/O -500ml -Hold IVF after 12 hrs DM2 -fair control -continue lantus and SSI Cellulitis -on levaquin -on augumentin - R/o AIN -dose anbx e GFR 30ml/min
[2018-10-18 15:46] LABS: Bedside Glucose 134 mg/dL (70-110)
[2018-10-18] MEDS: Amox/Clavulanate 500 MG Tablet PO (16:50)
[2018-10-18] MEDS: Atorvastatin Calcium 80 MG Tablet PO (22:08)
[2018-10-19] VITALS (23 sets, daily range): BP systolic 119–171; BP diastolic 56–88; PULSE 66–80; RESP 12–20; TEMP 36.6–37.4; O2SAT 92–97
[2018-10-19 00:16] LABS: Bedside Glucose 141 mg/dL (70-110)
[2018-10-19] MEDS: proMETHazine 25 MG/ML Syringe 6.25 MG IV ×2 (01:00→07:02)
[2018-10-19] MEDS: 0.9% NaCl Peripheral Flush Adult/Peds IV ×3 (01:01→07:02)
[2018-10-19 04:26] LABS: Bedside Glucose 134 mg/dL (70-110)
[2018-10-19] MEDS: Morphine 2 MG/ML Syringe 1 MG IV (05:47)
[2018-10-19] MEDS: proCHLORPERazine 10 MG/2 ML Vial 5 MG IV ×2 (05:47→10:43)
[2018-10-19 06:21] LABS: Absolute Lymphocyte Count 0.62 X10^3/ul (0.83-4.51); Absolute Neutrophil Count 11.3 X10^3/uL (2.0-7.7); Basophil# 0.01 X10^3/uL; Basophil% 0.1 % (0-1); Eosinophil# 0.03 X10^3/uL; Eosinophils% 0.2 % (0-5); Hematocrit 27.4 % (40-54); Hemoglobin 8.8 g/dl (13.0-16.5); Lymphocyte # 0.62 X10^3/ul (4.0); Lymphocyte % 4.8 % (19-41); Mean Corp Hgb Conc 32.1 g/gl (32-36); Mean Corpuscular Volume 87.3 fL (80-94); Mean Platelet Vol. 9.9 fl (6.2-12.0); Monocyte# 0.83 X10^3/uL; Monocyte% 6.5 % (0-10); Neutrophil # 11.32 X10^3/uL (2.7-7.7); Neutrophil % 88.2 % (47-70); Platelet Count 172 K/mm3 (150-450); RBC Distribution Width CV 15.7 % (11.6-14.6); RBC Distribution Width SD 50.4 fl (35.1-43.9); Red Blood Count 3.14 M/mm3 (4.6-6.2); White Blood Count 12.8 K/mm3 (4.4-11.0)
[2018-10-19 06:25] LABS: International Normalized Ratio 1.2; Partial Thromboplast Time 31.7 Seconds (24.1-36.2); Prothrombin Time (Protime)PT. 15.4 SECONDS (11.7-14.9)
[2018-10-19 06:36] LABS: Anion Gap 17 (5-15); BUN 90 mg/dL (7-18); BUN/Creat Ratio 16.6 RATIO (10-20); Calcium,Total 8.7 mg/dL (8.5-10.1); Chloride 95 mmol/L (98-107); Creatinine, Serum 5.43 mg/dL (0.70-1.30); EST Glomerular Filtration Rate 11 mL/min (>60); Est Glom Filt Rate - Afr Amer 14 mL/min (>60); Estimated Creatinine Clearance 14.29 ml/min; Glucose 127 mg/dL (74-106); Potassium 5.7 mmol/L (3.5-5.1); Sodium Level 134 mmol/L (136-145)
[2018-10-19 06:47] LABS: POSITIVE COUNT NO; POSITIVE DIFFERENTIAL NO; POSITIVE MORPHOLOGY NO
[2018-10-19 07:12] LABS: Bedside Glucose 125 mg/dL (70-110)
--- NOTE | 2018-10-19 10:59 | PCM.CONS.GEN ---
Problem List (1) S/P PTCA (percutaneous transluminal coronary angioplasty) Status: Chronic (2) Cardiomyopathy Status: Chronic Qualifiers: Cardiomyopathy type: ischemic Qualified Code(s): I25.5 - Ischemic cardiomyopathy (3) ICD (implantable cardioverter-defibrillator) in place Status: Chronic (4) AYE (acute kidney injury) Status: Acute (5) Pain of right heel Status: Acute (6) Cellulitis of right heel Status: Acute (7) mediport placement Status: Chronic (8) Hyperlipidemia Status: Chronic (9) DM type 2 (diabetes mellitus, type 2) Status: Chronic (10) Chronic CHF (congestive heart failure) Status: Chronic Comment: ef=25% as of 04/04 (11) Carotid artery stenosis Status: Chronic Comment: R CEA (12) Suspected sleep apnea Status: Suspected (13) CAD (coronary artery disease) Status: Chronic Comment: extensive disease multiple stents (14) Hx of CABG Status: Chronic (15) hx epidural abscess Status: Chronic (16) Obesity Status: Chronic (17) Benign hypertension Status: Chronic Reason for Consult Date of Consultation: 10/19/18 Reason for Consultation: Dialysis catheter placement History of Present Illness: The patient is a 62 year old M, with past medical history listed below, who presented to [facility] on 10[facility]13/2018 secondary to increased pain of his right heel. Patient has had a progressive course over the last 6 days with worsening renal failure. I was called overnight and asked to obtain venous access for hemodialysis. Surgery was called initially, but reportedly does not place hemodialysis lines. Patient reports that he has had multiple issues with venous access in the past leading to the placement of a right subclavian port. She also has an extensive cardiac history requiring PCI, CABG and chronic systolic congestive heart failure. Patient reportedly has been more difficult to arise recently and this is been attributed to patient's uremia. Patient is also been placed on dopamine therapy secondary to bradycardia. Patient has been being treated for osteomyelitis of the right foot. Patient is open for dialysis therapy. Patient has been having significant difficulties with nausea and vomiting overnight, which has been responsive to Phenergan therapy. Discussed risks and benefits of dialysis catheter placement at length with the patient. After review of the risks, benefits and alternatives, patient has agreed to proceed with dialysis catheter placement. Review of systems otherwise negative x10 systems, but accuracy is unclear given patient's mental status. 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) mediport placement (Chronic) Hyperlipidemia (Chronic) DM type 2 (diabetes mellitus, type 2) (Chronic) Chronic CHF (congestive heart failure) (Chronic) ef=25% as of 04/04 Carotid artery stenosis (Chronic) R CEA CAD (coronary artery disease) (Chronic) extensive disease multiple stents Hx of CABG (Chronic) hx epidural abscess (Chronic) Obesity (Chronic) Benign hypertension (Chronic) Allergies metoclopramide HCl [From Reglan] Adverse Reaction (Verified 10/13/18 12:27) goofy, anxious, elevated BP ondansetron HCl [From Zofran] Adverse Reaction (Verified 10/13/18 12:27) goofy, anxious, elevated BP Jpufsov-Ooh-Cse Reductase Inhibitor Adverse Reaction (Verified 10/13/18 16:05) rhabdomyolosis Home Medications: Ambulatory Orders Medication Instructions Recorded Clopidogrel Bisulfate [Plavix] 75 mg PO DAILY 02/08/15 Carvedilol [Coreg (Beta Ronald)] 25 mg PO BID 08/11/15 Isosorbide Mononitrate [Imdur] 30 mg PO BID 03/05/16 Tizanidine HCl 8 mg PO TID PRN 03/05/16 Amlodipine [Norvasc] 10 mg PO DAILY 10/13/18 Aspirin 81 mg PO DAILY 10/13/18 Atorvastatin Calcium [Lipitor] 80 mg PO QHS 10/13/18 Bumetanide 3 mg PO BID 10/13/18 Diclofenac [Voltaren] 75 mg PO BIDCM 10/13/18 Duloxetine HCl 30 mg PO DAILY 10/13/18 Ferrous Sulfate [Ferosul] 325 mg PO QODAY 10/13/18 Gabapentin 600 mg PO TID 10/13/18 Hydroxyzine HCl 25 mg PO TID PRN 10/13/18 Insulin Glargine,Hum.rec.anlog 30 unit SC BID 10/13/18 [Basaglar Marta U-100] Melatonin 20 mg PO QHS PRN 10/13/18 Sertraline HCl 100 mg PO DAILY 10/13/18 hydrALAZINE [Apresoline] 25 mg PO TID 10/13/18 Surgical History: appendectomy, cataract, cholecystectomy, coronary bypass surgery - 2005 - [place], herniorrhaphy, tonsillectomy, - - Cardiac stent placement ?24 (according to patient), right carotid endarterectomy. Lives: With Family Smoking Status: Never smoker Tobacco Use: Non-smoker Alcohol: None - *Family History Maternal History Items: No pertinent history Paternal History Items: Heart Disease - of an IN at age 61 Sibling History Items: No pertinent history Review of Systems Comment: See HPI, otherwise negative x10 systems Patient Problems: Active and Suspected Problems Bradycardia (Acute) Encephalopathy acute (Acute) AYE (acute kidney injury) (Acute) Cellulitis of right heel (Acute) Objective: Attempt #1 After confirmation of informed consent, both IJ's were visualized using ultrasound guidance. The right IJ was chosen. The area was anesthetized using 1% lidocaine no complication. The IJ was cannulized twice using ultrasound guidance without difficulty. However, at approximately 15 cm, resistance was met. There was noted to be some kinking of the guidewire, so the procedure was aborted. Hemostasis was achieved with pressure only. No arterial damage was noted on ultrasound. Patient did not have any change in respiratory status. Attempt #2 Left femoral vein was localized using ultrasound guidance. Area was anesthetized using 1% lidocaine. Nonpulsatile dark blood was noted. Guidewire was placed without difficulty. Patient tolerated initial dilating without difficulty. However, upon attempts at second dilation, significant resistance was noted. Multiple attempts at dilation were not successful. Did attempt to place the catheter to see if it would reach before the obstruction, but would not thread. Patient's procedure was aborted. Left femoral groin was held with pressure for approximately 5 minutes until bleeding cessation was achieved. No hematoma was appreciated. Over 45 minutes was spent on 2 attempts for hemodialysis access. Both attempts were unsuccessful. - Physical Exam General: Oriented x3, Cooperative, No apparent distress, - - Morbidly obese. RASS -2--1 HEENT: Atraumatic, PERRLA, EOMI, Normocephalic, - - No scleral icterus or injection noted. Oral: Moist Mucosa, No Gingival or Mucosal Lesions/ Ulcerations Neck: Supple, No JVD, No Nodes, Trachea Midline, - - Small scar noted in the right vascular bundle Lungs: No rhonchi, No wheeze, No rales, Diminished, - - Symmetric expansion. No dullness to percussion. Cardiovascular: Regular rate, Regular Rhythm, Normal S1, Normal S2, No murmurs, No rub noted, No Gallop Abdomen: Bowel Sounds Present, Soft, Non Tender, Non-Distended, Obese Extremities: No clubbing, No cyanosis, Capillary Refill Less than 3 Seconds, Edema Skin: No rashes, - - Right foot is dressed and was not evaluated. Musculoskeletal: No Tenderness to Palpation of Joints or Extremities Lymphatic: Inguinal Adenopathy Neurological: Cranial nerves II-XII grossly intact, Neuro grossly intact, Motor Exam 5/5 strength throughout Psych/Mental Status: Appropriate, Flat Affect Vital Signs Temp Pulse Resp BP Pulse Ox 37.2 C 70 20 H 138/62 H 96 10/19/18 09:00 10/19/18 10:00 10/19/18 10:00 10/19/18 10:00 10/19/18 10:00 Oxygen Flow Rate (L/min) 2 Oxygen Delivery Method Room Air Weight: 113.534 kg Body Mass Index (BMI) 36.9 Finger Stick Blood Glucose 42 Intake and Output for Last 24 Hours 10/17/18 10/18/18 10/19/18 23:59 23:59 23:59 Intake Total 2460 / 2460 2259.8 / 2259.8 553.8 / 553.8 Output Total 600 / 600 300 / 300 320 / 320 Balance 1860 / 1860 1959.8 / 1959.8 233.8 / 233.8 Microbiology Past 72 Hours 10/13/18 13:10 Blood Culture - Final Blood Culture (Wb) - Right Hand No growth in 5 days. 10/13/18 13:33 Blood Culture - Final Blood Culture (Wb) - Left Hand No growth in 5 days. 10/13/18 17:30 Gram Stain - Final Wound - Right Foot Wound Culture - Final Meth. resistant Staph. aureus Enterococcus faecalis Anaerobic Culture - Final No anaerobic bacteria isolated. Laboratory Tests Past 24 Hrs 10/18/18 10/19/18 10/19/18 15:50 05:40 05:40 WBC 12.8 H RBC 3.14 L Hgb 8.8 L Hct 27.4 L MCV 87.3 MCH 28.0 MCHC 32.1 RDW 15.7 H RDW Differential 50.4 H Plt Count 172 MPV 9.9 Immature Gran % (Auto) 0.200 Neut % (Auto) 88.2 H Lymph % (Auto) 4.8 L [place] % (Auto) 6.5 Eos % (Auto) 0.2 Baso % (Auto) 0.1 Absolute Neuts (auto) 11.3 H Absolute Lymphs (auto) 0.62 L Total Counted Not Reportable PT INR APTT Sodium 134 L Potassium 5.7 H Chloride 95 L Carbon Dioxide 22.0 Anion Gap 17 H BUN 90 H Creatinine 5.43 H Estim Creat Clear Calc 14.29 Est GFR (MDRD) Af Amer 14 L Est GFR (MDRD) Non-Af 11 L BUN/Creatinine Ratio 16.6 Glucose 127 H Calcium 8.7 Ammonia 24.0 10/19/18 05:40 WBC RBC Hgb Hct MCV MCH MCHC RDW RDW Differential Plt Count MPV Immature Gran % (Auto) Neut % (Auto) Lymph % (Auto) [place] % (Auto) Eos % (Auto) Baso % (Auto) Absolute Neuts (auto) Absolute Lymphs (auto) Total Counted PT 15.4 H INR 1.2 APTT 31.7 Sodium Potassium Chloride Carbon Dioxide Anion Gap BUN Creatinine Estim Creat Clear Calc Est GFR (MDRD) Af Amer Est GFR (MDRD) Non-Af BUN/Creatinine Ratio Glucose Calcium Ammonia POC Glucose 10/19/18 10/19/18 10/18/18 06:59 04:17 22:03 POC Glucose 125 H 134 H 141 H 10/18/18 10/18/18 15:41 11:40 POC Glucose 134 H 100 Clinical Impression(s) from Imaging Studies Foot X-Ray 10/13/18 13:48 IMPRESSION: No fracture or dislocation. Subcutaneous air in the soft tissues overlying the heel, consistent with the patient's history of a wound. Faint lucency in the calcaneus adjacent to the wound. This may represent osteomyelitis. If indicated, further evaluation with MRI can BE performed. Diffuse soft tissue swelling. Electronically Signed: Boris Lizarraga, at 14:07 EST Tel , Service support , Bone Scan Nuclear Medicine 10/15/18 06:30 IMPRESSION: 1. The increase in radiopharmaceutical concentration asymmetrically defined in the right ankle articulation on late projections only likely represents a component of degenerative arthritis. If infection remains a diagnostic consideration, correlation with gallium imaging or a labeled leukocyte scintigraphy is recommended. 2. Degenerative arthritis appears evident in the right forefoot and midfoot. Electronically Signed: Shalom Eduardo, DO at 13:20 EST Tel , Service support , Renal Ultrasound 10/17/18 07:50 IMPRESSION: Normal ultrasound of the kidneys and urinary bladder. Electronically Signed: Eric Pandey, DO at 22:01 EST Tel [phone], Service support , Assessment/Plan All Active Problems Bradycardia (Acute) Encephalopathy acute (Acute) AYE (acute kidney injury) (Acute) Pain of right heel (Acute) Cellulitis of right heel (Acute) RECOMMENDATIONS: 1. Hemodialysis per nephrology 2. Obtain chest x-ray to evaluate for complications of initial attempt 3. Antibiotics per infectious disease 4. Consider transfer to tertiary center for placement of dialysis access. IMPRESSIONS: 1. Acute renal failure Patient is in need of emergent dialysis. Attempts at IJ access were unsuccessful, likely secondary to interference with the port. Femoral access was also met by obstruction on the process of dilating. This was aborted for safety reasons. Patient does not have significant renal function to allow for contrasted study for evaluation of other access. Given that surgery was not able to attempt initially, there are no other providers with privileges at this time. Called hospitalist to discuss course of action. Patient will likely require transfer to a tertiary center to obtain dialysis access. 2. Heel cellulitis/osteomyelitis Patient is being followed by infectious disease. Cultures been positive for MRSA. Patient is on Levaquin and Augmentin at this time. Also being followed by podiatry. Unfortunately, femoral access had to be obtained. 3. Diabetes mellitus, CHF, metabolic encephalopathy, bradycardia Complicates care, management, recovery and prognosis. Patient is on dopamine drip at this time. This may be secondary to #1. Hospitalist and cardiology are following. Code Visit Inpatient E&M: 95070 Init Hosp L3
--- NOTE | 2018-10-19 11:56 | PCM.PN.CARD ---
Subjectve: The patient appears to be more awake and alert today. He does acknowledge she has a inspector [employer] in the [place], [place] area who follows his cardiovascular status and his ICD. He states he will be looking to transfer his cardiovascular care back to his previous [employer], Dr. Rg, at the [facility]. In the interim he denies any ongoing chest discomfort. He states he has had no acute respiratory related issues he is aware of. He does not believe his ICD has not discharged. Objective: Vital Signs Temp Pulse Resp BP Pulse Ox 98.9 F 70 20 H 138/62 H 96 10/19/18 09:00 10/19/18 10:00 10/19/18 10:00 10/19/18 10:00 10/19/18 10:00 Oxygen Flow Rate (L/min) 2 Oxygen Delivery Method Room Air Weight: 250 lb 4.794 oz Body Mass Index (BMI) 36.9 Finger Stick Blood Glucose 42 Intake and Output for Last 24 Hours 10/17/18 10/18/18 10/19/18 23:59 23:59 23:59 Intake Total 2460 / 2460 2259.8 / 2259.8 553.8 / 553.8 Output Total 600 / 600 300 / 300 320 / 320 Balance 1860 / 1860 1959.8 / 1959.8 233.8 / 233.8 General: Awake, Alert, Oriented x 3, Obese HEENT: Atraumatic, Normocephalic, PERRL, EOMI, Sclera Non Icteric Oral: Moist Mucosa Neck: Supple, Good ROM Lungs: - - No obvious rales or rhonchi Cardiovascular: Regular Rhythm, Normal S1, Normal S2 Abdomen: Bowel Sounds Present, Soft, Non Tender Extremities: Trace RLE Edema, Trace LLE Edema Psych/Mental Status: Appropriate 10/19/18 05:40: Sodium 134 L, Potassium 5.7 H, Chloride 95 L, Carbon Dioxide 22.0, Anion Gap 17 H, BUN 90 H, Creatinine 5.43 H, Est GFR (MDRD) Af Amer 14 L, Est GFR (MDRD) Non-Af 11 L, BUN/Creatinine Ratio 16.6, Glucose 127 H, Calcium 8.7 10/19/18 05:40: WBC 12.8 H, RBC 3.14 L, Hgb 8.8 L, Hct 27.4 L, MCV 87.3, MCH 28.0, MCHC 32.1, RDW 15.7 H, RDW Differential 50.4 H, Plt Count 172, MPV 9.9, Immature Gran % (Auto) 0.200, Neut % (Auto) 88.2 H, Lymph % (Auto) 4.8 L, [place] % (Auto) 6.5, Eos % (Auto) 0.2, Baso % (Auto) 0.1, Absolute Neuts (auto) 11.3 H, Total Counted Not Reportable 10/19/18 05:40: PT 15.4 H, INR 1.2, APTT 31.7 Rhythm: Sinus rhythm Medical Necessity - Tobacco Use Smoking Status: Never smoker Tobacco Use: Non-smoker Assessment/Plan 1. CAD status post PCI status post CABG The patient has a history of underlying CAD. He is undergone PCI and CABG as previously noted. He did not present with symptoms of an acute coronary syndrome. He has not had objective findings, thus far, compatible with an acute coronary syndrome. He has been good with medical management. He can be monitored for any acute changes that would require further evaluation and/or care. As his overall status stabilizes, and his IV dopamine is weaned off, then his cardiovascular medicines can be readjusted as tolerated. 2. Ischemic mediated cardiomyopathy The patient does have a history of an underlying ischemic mediated cardiomyopathy. He has diminished LV systolic function. His overall LV systolic function was reassessed. Based upon his recent echocardiographic studies his estimated LVEF was approximately 45%. He will continue medical management. 3. Chronic systolic CHF The patient was not reported on admission to have acute on chronic systolic CHF. It is unclear whether or not his underlying cardiovascular disease process with respect to his vasculature issues, LV dysfunction issues, etc. are participating in his current event with respect to his lethargy etc. Thus at the present time his medications will be adjusted based upon any acute concerns. 4. ICD The patient does have a single-chamber ICD. It appears he has been in sinus rhythm/sinus bradycardia with a low ventricular rate as well as intermittent ventricular paced rhythm. Based upon medical records obtained it appears he has a [place] ICD. This can be interrogated with respect to battery life, underlying cardiac dysrhythmias, and any evidence of any previous discharge. 5. Hyperlipidemia The patient will continue lipid-lowering therapy as deemed appropriate. 6. Hypertension In the patient's blood pressure has been transiently low. Is unclear whether this is related to his medications, his cardiovascular status, his acid base issues, previous infection and concerns of sepsis, etc. Thus there may be multiple etiologies. Hopefully as his status stabilizes he will be able to be weaned off his IV dopamine. 7. Diabetes The patient will continue evaluation care per internal medicine. 8. Carotid artery disease The patient does have peripheral arterial occlusive disease. He is status post right carotid endarterectomy. He will continue risk factor evaluation care as deemed appropriate. 9. Acute renal insufficiency The patient's BUN and creatinine continue to elevate. There is concern this may be contributing to his lethargy. A dialysis catheter is being placed this day to initiate dialysis therapy. 10. Cellulitis He has been treated medically for this. However he will be monitored for any obvious progression of infectious disease related issue that may contribute to his current state of lethargy. Comment: The above was discussed and reviewed with the patient. This note was generated using a voice recognition system and there may be incorrect words, spelling or punctuation that were not noted when reviewing the office note prior to saving.
--- NOTE | 2018-10-19 11:56 | PCM.PN.HOSP ---
Patient Problems: Active and Suspected Problems Encephalopathy acute (Acute) Bradycardia (Acute) AYE (acute kidney injury) (Acute) Cellulitis of right heel (Acute) Subjective: Feels well. Still with edema. Vitals/I&O's: Vital Signs Temp Pulse Resp BP Pulse Ox 37.2 C 70 20 H 138/62 H 96 10/19/18 09:00 10/19/18 10:00 10/19/18 10:00 10/19/18 10:00 10/19/18 10:00 Oxygen Flow Rate (L/min) 2 Oxygen Delivery Method Room Air Weight: 113.534 kg Body Mass Index (BMI) 36.9 Finger Stick Blood Glucose 42 Intake and Output for Last 24 Hours 10/17/18 10/18/18 10/19/18 23:59 23:59 23:59 Intake Total 2460 / 2460 2259.8 / 2259.8 553.8 / 553.8 Output Total 600 / 600 300 / 300 320 / 320 Balance 1860 / 1860 1959.8 / 1959.8 233.8 / 233.8 General: Alert, Cooperative, No apparent distress HEENT: Atraumatic, Normocephalic Oral: Moist Mucosa, No Gingival or Mucosal Lesions/ Ulcerations Neck: No Nodes, Thyroid Normal Size and Texture Lungs: No rhonchi, No wheeze, Diminished Cardiovascular: Regular rate, Regular Rhythm, Normal S1, Normal S2, No murmurs Abdomen: Bowel Sounds Present, Soft, Non Tender, Non-Distended, Obese Extremities: No Calf Tenderness, Edema Skin: No rashes, No breakdown Psych/Mental Status: Normal Affect, Appropriate Microbiology Past 72 Hours 10/13/18 13:10 Blood Culture (Wb) - Right Hand Blood Culture - Final No growth in 5 days. 10/13/18 13:33 Blood Culture (Wb) - Left Hand Blood Culture - Final No growth in 5 days. 10/13/18 17:30 Wound - Right Foot Gram Stain - Final 10/13/18 17:30 Wound - Right Foot Wound Culture - Final Meth. resistant Staph. aureus Enterococcus faecalis 10/13/18 17:30 Wound - Right Foot Anaerobic Culture - Final No anaerobic bacteria isolated. Laboratory Results 10/18/18 15:41: POC Glucose 134 H 10/18/18 15:50: Ammonia 24.0 10/18/18 22:03: POC Glucose 141 H 10/19/18 04:17: POC Glucose 134 H 10/19/18 05:40: Sodium 134 L, Potassium 5.7 H, Chloride 95 L, Carbon Dioxide 22.0, Anion Gap 17 H, BUN 90 H, Creatinine 5.43 H, Estim Creat Clear Calc 14.29, Est GFR (MDRD) Af Amer 14 L, Est GFR (MDRD) Non-Af 11 L, BUN/Creatinine Ratio 16.6, Glucose 127 H, Calcium 8.7 10/19/18 05:40: WBC 12.8 H, RBC 3.14 L, Hgb 8.8 L, Hct 27.4 L, MCV 87.3, MCH 28.0, MCHC 32.1, RDW 15.7 H, RDW Differential 50.4 H, Plt Count 172, MPV 9.9, Immature Gran % (Auto) 0.200, Neut % (Auto) 88.2 H, Lymph % (Auto) 4.8 L, [place] % (Auto) 6.5, Eos % (Auto) 0.2, Baso % (Auto) 0.1, Absolute Neuts (auto) 11.3 H, Absolute Lymphs (auto) 0.62 L, Total Counted Not Reportable 10/19/18 05:40: PT 15.4 H, INR 1.2, APTT 31.7 10/19/18 06:59: POC Glucose 125 H Current Medications Acetaminophen (Tylenol) 650 mg PO Q6H PRN PRN PRN Reason: Mild Pain (1-3)/Temp > 100.7 F Last Admin: 10/14/18 21:38 Dose: 650 mg Albuterol Sulfate (Ventolin Aerosols) 2.5 mg INHALATION Q2H PRN PRN PRN Reason: DYSPNEA Last Admin: 10/14/18 16:34 Dose: 2.5 mg Amoxicillin/Clavulanate Potassium (Augmentin Tablet) 500 mg PO QAM [facility] Last Admin: 10/18/18 16:50 Dose: 500 mg Aspirin (Aspirin, Baby) 81 mg PO DAILY@0800 [facility] Last Admin: 10/18/18 14:07 Dose: Not Given Atorvastatin Calcium (Lipitor) 80 mg PO QHS [facility] Last Admin: 10/18/18 22:08 Dose: 80 mg Atropine Sulfate () 0.5 mg IV Q5M PRN PRN Reason: Heart rate<50 Last Admin: 10/18/18 02:53 Dose: 0.5 mg Bumetanide (Bumex) 1 mg IV BID@1000,1800 [facility] Last Admin: 10/18/18 15:45 Dose: Not Given Calamine/Phenol (Calmoseptine Ointment) 1 applic TOPICAL BID [facility]; Protocol Last Admin: 10/19/18 08:47 Dose: Not Given Clopidogrel Bisulfate (Plavix) 75 mg PO DAILY [facility] Last Admin: 10/18/18 14:08 Dose: Not Given Collagenase (Santyl) 1 applic TOPICAL DAILY [facility]; Protocol Last Admin: 10/18/18 10:40 Dose: 1 applicatio Dextrose (D50w Syringe) 0 gm IV X1 PRN; Protocol PRN Reason: Hypoglycemia Last Admin: 10/18/18 09:45 Dose: 25 gm Ferrous Sulfate (Ferrous Sulfate) 325 mg PO QODAY@0800 [facility] Last Admin: 10/18/18 14:07 Dose: Not Given Glucagon () 1 mg IM .X1 PRN PRN Reason: Hypoglycemia Heparin Sodium (Beef Lung) () 50 units IV UD PRN PRN Reason: HEPARIN FLUSH Heparin Sodium (Porcine) (Heparin Na) 5,000 unit SC Q8 [facility] Last Admin: 10/19/18 05:20 Dose: Not Given Dopamine HCl/Dextrose () 800 mg in 250 mls @ 4.258 mls/hr IV .[id number] [facility]; Protocol Last Admin: 10/18/18 03:54 Dose: 4.258 mls/hr Insulin Glargine (Lantus (Bkc)) 20 units SC BID [facility] Last Admin: 10/19/18 08:47 Dose: Not Given Insulin Human Lispro (Humalog Kwikpen (Bkc)) 0 unit SC ACHS [facility]; Protocol Last Admin: 10/19/18 07:13 Dose: Not Given Levofloxacin (Levaquin Tablet) 250 mg PO Q48H [facility] Last Admin: 10/18/18 05:37 Dose: 250 mg Nutritional Formula (Lactose Free) (Glucerna Shake) 120 ml PO 4X/DAY [facility] Last Admin: 10/19/18 08:47 Dose: Not Given Prochlorperazine Edisylate (Compazine Iv) 5 mg IV Q6H PRN PRN PRN Reason: NAUSEA/VOMITING Last Admin: 10/19/18 10:43 Dose: 5 mg Promethazine HCl (Phenergan) 6.25 mg IV Q6H PRN PRN PRN Reason: NAUSEA/VOMITING Last Admin: 10/19/18 07:02 Dose: 6.25 mg Simethicone (Mylicon) 80 mg PO PCHS [facility] Last Admin: 10/18/18 22:08 Dose: 80 mg Sodium Chloride () 5 - 15 ml IV UD PRN PRN Reason: SALINE FLUSH Last Admin: 10/19/18 07:02 Dose: 15 ml Sodium Chloride () 10 ml IV UD PRN PRN Reason: R PORT FLUSH Last Admin: 10/19/18 10:44 Dose: 10 ml Sodium Chloride () 10 - 40 ml IV UD PRN PRN Reason: MULTILUMEN/HICMAN CATH FLUSH Last Admin: 10/19/18 05:49 Dose: 10 ml Medical Necessity - Tobacco Use Smoking Status: Never smoker Tobacco Use: Non-smoker Assessment/Plan All Active Problems Encephalopathy acute (Acute) Bradycardia (Acute) AYE (acute kidney injury) (Acute) Pain of right heel (Acute) Cellulitis of right heel (Acute) 1. Heel cellulitis no obvious osteomyelitis culture + for MRSA on levaquin and augmentin podiatry and ID following ID consult given the MRSA and now AYE Lower extremity duplex ordered. 2. AYE new, worse again today oliguric on CKD 3 suspect d/t vanc v Bumex or combination continue IVF FEUrea 14.26, consistent with prerenal azotemia has been refractory to IVF and Bumex Nephrology on page to see if any changes or need for MANAGER AUDIO for dialysis catheter today, then HD 3. DM2 hypoglycemic resolved continue with decreased Lantus 20 bid for now + SSI 4. HFrEF EF 40% from 2014 compensated at this time. continue carvedilol, hydralazine, imdur not candidate for ACEi/ARB given AYE 5. Encephalopathy resolved suspect more toxic due to his meds given reduced renal clearance as gabapentin is 100% cleared in the urine continue to hold potentiating medications ([place], neurontin) 6. Bradycardia improved today on Dopamine gtt Coreg discontinued cardiology consult 7. DVT proph: SQ heparin. Code Visit Inpatient E&M: 32354 Subs Hosp L2
--- NOTE | 2018-10-19 12:02 | PN_ITS ---
Patient Problems: Active and Suspected Problems Encephalopathy acute (Acute) Bradycardia (Acute) AYE (acute kidney injury) (Acute) Cellulitis of right heel (Acute) Subjective: Feels well. Still with edema. Vitals/I&O's: Vital Signs Temp Pulse Resp BP Pulse Ox 37.2 C 70 20 H 138/62 H 96 10/19/18 09:00 10/19/18 10:00 10/19/18 10:00 10/19/18 10:00 10/19/18 10:00 Oxygen Flow Rate (L/min) 2 Oxygen Delivery Method Room Air Weight: 113.534 kg Body Mass Index (BMI) 36.9 Finger Stick Blood Glucose 42 Intake and Output for Last 24 Hours 10/17/18 10/18/18 10/19/18 23:59 23:59 23:59 Intake Total 2460 / 2460 2259.8 / 2259.8 553.8 / 553.8 Output Total 600 / 600 300 / 300 320 / 320 Balance 1860 / 1860 1959.8 / 1959.8 233.8 / 233.8 General: Alert, Cooperative, No apparent distress HEENT: Atraumatic, Normocephalic Oral: Moist Mucosa, No Gingival or Mucosal Lesions/ Ulcerations Neck: No Nodes, Thyroid Normal Size and Texture Lungs: No rhonchi, No wheeze, Diminished Cardiovascular: Regular rate, Regular Rhythm, Normal S1, Normal S2, No murmurs Abdomen: Bowel Sounds Present, Soft, Non Tender, Non-Distended, Obese Extremities: No Calf Tenderness, Edema Skin: No rashes, No breakdown Psych/Mental Status: Normal Affect, Appropriate Microbiology Past 72 Hours 10/13/18 13:10 Blood Culture (Wb) - Right Hand Blood Culture - Final No growth in 5 days. 10/13/18 13:33 Blood Culture (Wb) - Left Hand Blood Culture - Final No growth in 5 days. 10/13/18 17:30 Wound - Right Foot Gram Stain - Final 10/13/18 17:30 Wound - Right Foot Wound Culture - Final Meth. resistant Staph. aureus Enterococcus faecalis 10/13/18 17:30 Wound - Right Foot Anaerobic Culture - Final No anaerobic bacteria isolated. Laboratory Results 10/18/18 15:41: POC Glucose 134 H 10/18/18 15:50: Ammonia 24.0 10/18/18 22:03: POC Glucose 141 H 10/19/18 04:17: POC Glucose 134 H 10/19/18 05:40: Sodium 134 L, Potassium 5.7 H, Chloride 95 L, Carbon Dioxide 22.0, Anion Gap 17 H, BUN 90 H, Creatinine 5.43 H, Estim Creat Clear Calc 14.29, Est GFR (MDRD) Af Amer 14 L, Est GFR (MDRD) Non-Af 11 L, BUN/Creatinine Ratio 16.6, Glucose 127 H, Calcium 8.7 10/19/18 05:40: WBC 12.8 H, RBC 3.14 L, Hgb 8.8 L, Hct 27.4 L, MCV 87.3, MCH 28.0, MCHC 32.1, RDW 15.7 H, RDW Differential 50.4 H, Plt Count 172, MPV 9.9, Immature Gran % (Auto) 0.200, Neut % (Auto) 88.2 H, Lymph % (Auto) 4.8 L, [place] % (Auto) 6.5, Eos % (Auto) 0.2, Baso % (Auto) 0.1, Absolute Neuts (auto) 11.3 H, Absolute Lymphs (auto) 0.62 L, Total Counted Not Reportable 10/19/18 05:40: PT 15.4 H, INR 1.2, APTT 31.7 10/19/18 06:59: POC Glucose 125 H Current Medications Acetaminophen (Tylenol) 650 mg PO Q6H PRN PRN PRN Reason: Mild Pain (1-3)/Temp > 100.7 F Last Admin: 10/14/18 21:38 Dose: 650 mg Albuterol Sulfate (Ventolin Aerosols) 2.5 mg INHALATION Q2H PRN PRN PRN Reason: DYSPNEA Last Admin: 10/14/18 16:34 Dose: 2.5 mg Amoxicillin/Clavulanate Potassium (Augmentin Tablet) 500 mg PO QAM [facility] Last Admin: 10/18/18 16:50 Dose: 500 mg Aspirin (Aspirin, Baby) 81 mg PO DAILY@0800 [facility] Last Admin: 10/18/18 14:07 Dose: Not Given Atorvastatin Calcium (Lipitor) 80 mg PO QHS [facility] Last Admin: 10/18/18 22:08 Dose: 80 mg Atropine Sulfate () 0.5 mg IV Q5M PRN PRN Reason: Heart rate<50 Last Admin: 10/18/18 02:53 Dose: 0.5 mg Bumetanide (Bumex) 1 mg IV BID@1000,1800 [facility] Last Admin: 10/18/18 15:45 Dose: Not Given Calamine/Phenol (Calmoseptine Ointment) 1 applic TOPICAL BID [facility]; Protocol Last Admin: 10/19/18 08:47 Dose: Not Given Clopidogrel Bisulfate (Plavix) 75 mg PO DAILY [facility] Last Admin: 10/18/18 14:08 Dose: Not Given Collagenase (Santyl) 1 applic TOPICAL DAILY [facility]; Protocol Last Admin: 10/18/18 10:40 Dose: 1 applicatio Dextrose (D50w Syringe) 0 gm IV X1 PRN; Protocol PRN Reason: Hypoglycemia Last Admin: 10/18/18 09:45 Dose: 25 gm Ferrous Sulfate (Ferrous Sulfate) 325 mg PO QODAY@0800 [facility] Last Admin: 10/18/18 14:07 Dose: Not Given Glucagon () 1 mg IM .X1 PRN PRN Reason: Hypoglycemia Heparin Sodium (Beef Lung) () 50 units IV UD PRN PRN Reason: HEPARIN FLUSH Heparin Sodium (Porcine) (Heparin Na) 5,000 unit SC Q8 [facility] Last Admin: 10/19/18 05:20 Dose: Not Given Dopamine HCl/Dextrose () 800 mg in 250 mls @ 4.258 mls/hr IV .[id number] [facility]; Protocol Last Admin: 10/18/18 03:54 Dose: 4.258 mls/hr Insulin Glargine (Lantus (Bkc)) 20 units SC BID [facility] Last Admin: 10/19/18 08:47 Dose: Not Given Insulin Human Lispro (Humalog Kwikpen (Bkc)) 0 unit SC ACHS [facility]; Protocol Last Admin: 10/19/18 07:13 Dose: Not Given Levofloxacin (Levaquin Tablet) 250 mg PO Q48H [facility] Last Admin: 10/18/18 05:37 Dose: 250 mg Nutritional Formula (Lactose Free) (Glucerna Shake) 120 ml PO 4X/DAY [facility] Last Admin: 10/19/18 08:47 Dose: Not Given Prochlorperazine Edisylate (Compazine Iv) 5 mg IV Q6H PRN PRN PRN Reason: NAUSEA/VOMITING Last Admin: 10/19/18 10:43 Dose: 5 mg Promethazine HCl (Phenergan) 6.25 mg IV Q6H PRN PRN PRN Reason: NAUSEA/VOMITING Last Admin: 10/19/18 07:02 Dose: 6.25 mg Simethicone (Mylicon) 80 mg PO PCHS [facility] Last Admin: 10/18/18 22:08 Dose: 80 mg Sodium Chloride () 5 - 15 ml IV UD PRN PRN Reason: SALINE FLUSH Last Admin: 10/19/18 07:02 Dose: 15 ml Sodium Chloride () 10 ml IV UD PRN PRN Reason: R PORT FLUSH Last Admin: 10/19/18 10:44 Dose: 10 ml Sodium Chloride () 10 - 40 ml IV UD PRN PRN Reason: MULTILUMEN/HICMAN CATH FLUSH Last Admin: 10/19/18 05:49 Dose: 10 ml Medical Necessity - Tobacco Use Smoking Status: Never smoker Tobacco Use: Non-smoker Assessment/Plan All Active Problems Encephalopathy acute (Acute) Bradycardia (Acute) AYE (acute kidney injury) (Acute) Pain of right heel (Acute) Cellulitis of right heel (Acute) 1. Heel cellulitis * no obvious osteomyelitis * culture + for MRSA * on levaquin and augmentin * podiatry and ID following * ID consult given the MRSA and now AYE * Lower extremity duplex ordered. 2. AYE * new, worse again today * oliguric * on CKD 3 * suspect d/t vanc v Bumex or combination * continue IVF * FEUrea 14.26, consistent with prerenal azotemia * has been refractory to IVF and Bumex * Nephrology on page to see if any changes or need for SALES LEAD * for dialysis catheter today, then HD 3. DM2 * hypoglycemic resolved * continue with decreased Lantus 20 bid for now + SSI 4. HFrEF * EF 40% from 2014 * compensated at this time. * continue carvedilol, hydralazine, imdur * not candidate for ACEi/ARB given AEY 5. Encephalopathy * resolved * suspect more toxic due to his meds given reduced renal clearance as gabapentin is 100% cleared in the urine * continue to hold potentiating medications ([place], neurontin) 6. Bradycardia * improved today * on Dopamine gtt * Coreg discontinued * cardiology consult 7. DVT proph: SQ heparin. Code Visit Inpatient E&M: 91387 Subs Hosp L2
--- NOTE | 2018-10-19 13:05 | PCM.DC.SUM ---
Discharge Date and Diagnosis - Problem List Patient Problems: Active and Suspected Problems Bradycardia (Acute) Encephalopathy acute (Acute) AYE (acute kidney injury) (Acute) Cellulitis of right heel (Acute) Date of Admission: 10/13/18 Date of Discharge: 10/19/18 - Primary Discharge Diagnosis Active and Suspected Problems Bradycardia (Acute) Encephalopathy acute (Acute) AYE (acute kidney injury) (Acute) Cellulitis of right heel (Acute) - Secondary Discharge Diagnosis Chronic Problems S/P PTCA (percutaneous transluminal coronary angioplasty) (Chronic) Cardiomyopathy (Chronic) ICD (implantable cardioverter-defibrillator) in place (Chronic) mediport placement (Chronic) Hyperlipidemia (Chronic) DM type 2 (diabetes mellitus, type 2) (Chronic) Chronic CHF (congestive heart failure) (Chronic) ef=25% as of 04/04 Carotid artery stenosis (Chronic) R CEA CAD (coronary artery disease) (Chronic) extensive disease multiple stents Hx of CABG (Chronic) hx epidural abscess (Chronic) Obesity (Chronic) Benign hypertension (Chronic) Hospital Course and Treatment Imaging Results: Clinical Impression(s) from Imaging Studies Foot X-Ray 10/13/18 13:48 IMPRESSION: No fracture or dislocation. Subcutaneous air in the soft tissues overlying the heel, consistent with the patient's history of a wound. Faint lucency in the calcaneus adjacent to the wound. This may represent osteomyelitis. If indicated, further evaluation with MRI can BE performed. Diffuse soft tissue swelling. Electronically Signed: Boris Lizarraga, at 14:07 EST Tel , Service support , Bone Scan Nuclear Medicine 10/15/18 06:30 IMPRESSION: 1. The increase in radiopharmaceutical concentration asymmetrically defined in the right ankle articulation on late projections only likely represents a component of degenerative arthritis. If infection remains a diagnostic consideration, correlation with gallium imaging or a labeled leukocyte scintigraphy is recommended. 2. Degenerative arthritis appears evident in the right forefoot and midfoot. Electronically Signed: Shalom Clark DO at 13:20 EST Tel , Service support , Renal Ultrasound 10/17/18 07:50 IMPRESSION: Normal ultrasound of the kidneys and urinary bladder. 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 Right heel cellulitis came back positive for MRSA and patient was on Vanco mycin and Zosyn. Bone scan was negative and patient was eventually changed over to Levaquin and Augmentin. Comp gated factor is acute renal failure on top of chronic kidney disease. Patient became oliguric and his creatinine continued to worsen. Dialysis catheter was attempted in the IJ as well as femoral region with unsuccessful. Patient does require urgent dialysis and I will not be able to get a tunneled dialysis catheter over the weekend Nor until mid next week. The recommendation was to transfer the patient. Discussed with the patient and he requested [facility]. I spoke with the hospitalist over at [facility] who agreed to accept the patient and discussed case in detail with him. Patient will be transferred in stable condition. 1. Heel cellulitis no obvious osteomyelitis culture + for MRSA on levaquin and augmentin podiatry and ID following ID consult given the MRSA and now AYE Lower extremity duplex ordered. 2. AYE new, worse again today oliguric on CKD 3 suspect d/t vanc v Bumex or combination continue IVF FEUrea 14.26, consistent with prerenal azotemia has been refractory to IVF and Bumex Nephrology on page to see if any changes or need for EHS TEACHER for dialysis catheter today, then HD 3. DM2 hypoglycemic resolved continue with decreased Lantus 20 bid for now + SSI 4. HFrEF EF 40% from 2014 compensated at this time. continue carvedilol, hydralazine, imdur not candidate for ACEi/ARB given AYE 5. Encephalopathy resolved suspect more toxic due to his meds given reduced renal clearance as gabapentin is 100% cleared in the urine continue to hold potentiating medications ([place], neurontin) 6. Bradycardia improved today on Dopamine gtt Coreg discontinued cardiology consult 7. DVT proph: SQ heparin. [] Patient Problems: Active and Suspected Problems Bradycardia (Acute) Encephalopathy acute (Acute) AYE (acute kidney injury) (Acute) Cellulitis of right heel (Acute) - Physical Exam Vital Signs Temp Pulse Resp BP Pulse Ox 37.2 C 74 14 140/61 H 95 10/19/18 09:00 10/19/18 12:00 10/19/18 12:00 10/19/18 12:00 10/19/18 12:17 Oxygen Flow Rate (L/min) 2 Oxygen Delivery Method Room Air Weight: 113.534 kg Body Mass Index (BMI) 36.9 Finger Stick Blood Glucose 42 Intake and Output for Last 24 Hours 10/17/18 10/18/18 10/19/18 23:59 23:59 23:59 Intake Total 2460 / 2460 2259.8 / 2259.8 591.8 / 591.8 Output Total 600 / 600 300 / 300 320 / 320 Balance 1860 / 1860 1959.8 / 1959.8 271.8 / 271.8 Microbiology Past 72 Hours 10/13/18 13:10 Blood Culture - Final Blood Culture (Wb) - Right Hand No growth in 5 days. 10/13/18 13:33 Blood Culture - Final Blood Culture (Wb) - Left Hand No growth in 5 days. 10/13/18 17:30 Gram Stain - Final Wound - Right Foot Wound Culture - Final Meth. resistant Staph. aureus Enterococcus faecalis Anaerobic Culture - Final No anaerobic bacteria isolated. Laboratory Tests Past 24 Hrs 10/18/18 10/19/18 10/19/18 15:50 05:40 05:40 WBC 12.8 H RBC 3.14 L Hgb 8.8 L Hct 27.4 L MCV 87.3 MCH 28.0 MCHC 32.1 RDW 15.7 H RDW Differential 50.4 H Plt Count 172 MPV 9.9 Immature Gran % (Auto) 0.200 Neut % (Auto) 88.2 H Lymph % (Auto) 4.8 L [place] % (Auto) 6.5 Eos % (Auto) 0.2 Baso % (Auto) 0.1 Absolute Neuts (auto) 11.3 H Absolute Lymphs (auto) 0.62 L Total Counted Not Reportable PT INR APTT Sodium 134 L Potassium 5.7 H Chloride 95 L Carbon Dioxide 22.0 Anion Gap 17 H BUN 90 H Creatinine 5.43 H Estim Creat Clear Calc 14.29 Est GFR (MDRD) Af Amer 14 L Est GFR (MDRD) Non-Af 11 L BUN/Creatinine Ratio 16.6 Glucose 127 H Calcium 8.7 Ammonia 24.0 10/19/18 05:40 WBC RBC Hgb Hct MCV MCH MCHC RDW RDW Differential Plt Count MPV Immature Gran % (Auto) Neut % (Auto) Lymph % (Auto) [place] % (Auto) Eos % (Auto) Baso % (Auto) Absolute Neuts (auto) Absolute Lymphs (auto) Total Counted PT 15.4 H INR 1.2 APTT 31.7 Sodium Potassium Chloride Carbon Dioxide Anion Gap BUN Creatinine Estim Creat Clear Calc Est GFR (MDRD) Af Amer Est GFR (MDRD) Non-Af BUN/Creatinine Ratio Glucose Calcium Ammonia POC Glucose 10/19/18 10/19/18 10/18/18 06:59 04:17 22:03 POC Glucose 125 H 134 H 141 H 10/18/18 15:41 POC Glucose 134 H Discharge Diet: Low fat/ Low Cholesterol, 1800 Calorie Control Diet Discharge Activity: Return to Normal Activity Home Medications: Medications to take at Discharge Clopidogrel Bisulfate [Plavix] 75 mg PO DAILY 02/08/15 Carvedilol [Coreg (Beta Ronald)] 25 mg PO BID 08/11/15 Isosorbide Mononitrate [Imdur] 30 mg PO BID 03/05/16 Tizanidine HCl 8 mg PO TID PRN 03/05/16 Amlodipine [Norvasc] 10 mg PO DAILY 10/13/18 Aspirin 81 mg PO DAILY 10/13/18 Atorvastatin Calcium [Lipitor] 80 mg PO QHS 10/13/18 Bumetanide 3 mg PO BID 10/13/18 Diclofenac [Voltaren] 75 mg PO BIDCM 10/13/18 Duloxetine HCl 30 mg PO DAILY 10/13/18 Ferrous Sulfate [Ferosul] 325 mg PO QODAY 10/13/18 Gabapentin 600 mg PO TID 10/13/18 Hydroxyzine HCl 25 mg PO TID PRN 10/13/18 Insulin Glargine,Hum.rec.anlog [Basaglar Kwikpen U-100] 30 unit SC BID 10/13/18 Melatonin 20 mg PO QHS PRN 10/13/18 Sertraline HCl 100 mg PO DAILY 10/13/18 hydrALAZINE [Apresoline] 25 mg PO TID 10/13/18 Primary Care Physician: Care Physician,No Primary [NON-STAFF] - Disposition: Acute care Hospital Minutes spent on discharge:: 50 Patient Condition:: Stable Medical Necessity - Tobacco Use Smoking Status: Never smoker Tobacco Use: Non-smoker Meaningful Use Info Meaningful Use Diagnoses (Choose all that apply): None applicable Code Visit Inpatient E&M: 75308 Disch Hosp
--- NOTE | 2018-10-19 13:11 | DS.PCM_ITS ---
Discharge Date and Diagnosis - Problem List Patient Problems: Active and Suspected Problems Bradycardia (Acute) Encephalopathy acute (Acute) AYE (acute kidney injury) (Acute) Cellulitis of right heel (Acute) Date of Admission: 10/13/18 Date of Discharge: 10/19/18 - Primary Discharge Diagnosis Active and Suspected Problems Bradycardia (Acute) Encephalopathy acute (Acute) AYE (acute kidney injury) (Acute) Cellulitis of right heel (Acute) - Secondary Discharge Diagnosis Chronic Problems S/P PTCA (percutaneous transluminal coronary angioplasty) (Chronic) Cardiomyopathy (Chronic) ICD (implantable cardioverter-defibrillator) in place (Chronic) mediport placement (Chronic) Hyperlipidemia (Chronic) DM type 2 (diabetes mellitus, type 2) (Chronic) Chronic CHF (congestive heart failure) (Chronic) ef=25% as of 04/04 Carotid artery stenosis (Chronic) R CEA CAD (coronary artery disease) (Chronic) extensive disease multiple stents Hx of CABG (Chronic) hx epidural abscess (Chronic) Obesity (Chronic) Benign hypertension (Chronic) Hospital Course and Treatment Imaging Results: Clinical Impression(s) from Imaging Studies Foot X-Ray 10/13/18 13:48 IMPRESSION: No fracture or dislocation. Subcutaneous air in the soft tissues overlying the heel, consistent with the patient's history of a wound. Faint lucency in the calcaneus adjacent to the wound. This may represent osteomyelitis. If indicated, further evaluation with MRI can BE performed. Diffuse soft tissue swelling. Electronically Signed: Boris Lizarraga, at 14:07 EST Tel , Service support , Bone Scan Nuclear Medicine 10/15/18 06:30 IMPRESSION: 1. The increase in radiopharmaceutical concentration asymmetrically defined in the right ankle articulation on late projections only likely represents a component of degenerative arthritis. If infection remains a diagnostic consideration, correlation with gallium imaging or a labeled leukocyte scintigraphy is recommended. 2. Degenerative arthritis appears evident in the right forefoot and midfoot. Electronically Signed: Shalom Clark DO at 13:20 EST Tel , Service support , Renal Ultrasound 10/17/18 07:50 IMPRESSION: Normal ultrasound of the kidneys and urinary bladder. Electronically Signed: Eric Pandey DO at 22:01 EST Tel [phone], Service support , Consultations 10/13/18 17:31 Consult: Onc/Wound/screen handler Routine Comment: Reason for Consult:: ulcers bilateral heels [place]unning--podiatry Vaughn--ID Moodcynthia--Cardiology Jesus Manuel--[facility] Silvina--nephrology Operations: None Procedures: 2-D Echocardiogram Summary of Care Provided: The patient is a 62 year old M presents with right heel cellulitis. Right heel cellulitis came back positive for MRSA and patient was on Vanco mycin and Zosyn. Bone scan was negative and patient was eventually changed over to Levaquin and Augmentin. Comp gated factor is acute renal failure on top of chronic kidney disease. Patient became oliguric and his creatinine continued to worsen. Dialysis catheter was attempted in the IJ as well as femoral region with unsuccessful. Patient does require urgent dialysis and I will not be able to get a tunneled dialysis catheter over the weekend Nor until mid next week. The recommendation was to transfer the patient. Discussed with the patient and he requested [facility]. I spoke with the hospitalist over at [facility] who agreed to accept the patient and discussed case in detail with him. Patient will be transferred in stable condition. 1. Heel cellulitis * no obvious osteomyelitis * culture + for MRSA * on levaquin and augmentin * podiatry and ID following * ID consult given the MRSA and now AYE * Lower extremity duplex ordered. 2. AYE * new, worse again today * oliguric * on CKD 3 * suspect d/t vanc v Bumex or combination * continue IVF * FEUrea 14.26, consistent with prerenal azotemia * has been refractory to IVF and Bumex * Nephrology on page to see if any changes or need for PHOTORADIO OPERATOR * for dialysis catheter today, then HD 3. DM2 * hypoglycemic resolved * continue with decreased Lantus 20 bid for now + SSI 4. HFrEF * EF 40% from 2013 * compensated at this time. * continue carvedilol, hydralazine, imdur * not candidate for ACEi/ARB given AYE 5. Encephalopathy * resolved * suspect more toxic due to his meds given reduced renal clearance as gabapentin is 100% cleared in the urine * continue to hold potentiating medications (Moffat, neurontin) 6. Bradycardia * improved today * on Dopamine gtt * Coreg discontinued * cardiology consult 7. DVT proph: SQ heparin. [] Patient Problems: Active and Suspected Problems Bradycardia (Acute) Encephalopathy acute (Acute) AYE (acute kidney injury) (Acute) Cellulitis of right heel (Acute) - Physical Exam Vital Signs Temp Pulse Resp BP Pulse Ox 37.2 C 74 14 140/61 H 95 10/19/18 09:00 10/19/18 12:00 10/19/18 12:00 10/19/18 12:00 10/19/18 12:17 Oxygen Flow Rate (L/min) 2 Oxygen Delivery Method Room Air Weight: 113.534 kg Body Mass Index (BMI) 36.9 Finger Stick Blood Glucose 42 Intake and Output for Last 24 Hours 10/17/18 10/18/18 10/19/18 23:59 23:59 23:59 Intake Total 2460 / 2460 2259.8 / 2259.8 591.8 / 591.8 Output Total 600 / 600 300 / 300 320 / 320 Balance 1860 / 1860 1959.8 / 1959.8 271.8 / 271.8 Microbiology Past 72 Hours 10/13/18 13:10 Blood Culture - Final Blood Culture (Wb) - Right Hand No growth in 5 days. 10/13/18 13:33 Blood Culture - Final Blood Culture (Wb) - Left Hand No growth in 5 days. 10/13/18 17:30 Gram Stain - Final Wound - Right Foot Wound Culture - Final Meth. resistant Staph. aureus Enterococcus faecalis Anaerobic Culture - Final No anaerobic bacteria isolated. Laboratory Tests Past 24 Hrs 10/18/18 10/19/18 10/19/18 15:50 05:40 05:40 WBC 12.8 H RBC 3.14 L Hgb 8.8 L Hct 27.4 L MCV 87.3 MCH 28.0 MCHC 32.1 RDW 15.7 H RDW Differential 50.4 H Plt Count 172 MPV 9.9 Immature Gran % (Auto) 0.200 Neut % (Auto) 88.2 H Lymph % (Auto) 4.8 L [place] % (Auto) 6.5 Eos % (Auto) 0.2 Baso % (Auto) 0.1 Absolute Neuts (auto) 11.3 H Absolute Lymphs (auto) 0.62 L Total Counted Not Reportable PT INR APTT Sodium 134 L Potassium 5.7 H Chloride 95 L Carbon Dioxide 22.0 Anion Gap 17 H BUN 90 H Creatinine 5.43 H Estim Creat Clear Calc 14.29 Est GFR (MDRD) Af Amer 14 L Est GFR (MDRD) Non-Af 11 L BUN/Creatinine Ratio 16.6 Glucose 127 H Calcium 8.7 Ammonia 24.0 10/19/18 05:40 WBC RBC Hgb Hct MCV MCH MCHC RDW RDW Differential Plt Count MPV Immature Gran % (Auto) Neut % (Auto) Lymph % (Auto) Mont[place] % (Auto) Eos % (Auto) Baso % (Auto) Absolute Neuts (auto) Absolute Lymphs (auto) Total Counted PT 15.4 H INR 1.2 APTT 31.7 Sodium Potassium Chloride Carbon Dioxide Anion Gap BUN Creatinine Estim Creat Clear Calc Est GFR (MDRD) Af Amer Est GFR (MDRD) Non-Af BUN/Creatinine Ratio Glucose Calcium Ammonia POC Glucose 10/19/18 10/19/18 10/18/18 06:59 04:17 22:03 POC Glucose 125 H 134 H 141 H 10/18/18 15:41 POC Glucose 134 H Discharge Diet: Low fat/ Low Cholesterol, 1800 Calorie Control Diet Discharge Activity: Return to Normal Activity Home Medications: Medications to take at Discharge Clopidogrel Bisulfate [Plavix] 75 mg PO DAILY 02/08/15 Carvedilol [Coreg (Beta Ronald)] 25 mg PO BID 08/11/15 Isosorbide Mononitrate [Imdur] 30 mg PO BID 03/05/16 Tizanidine HCl 8 mg PO TID PRN 03/05/16 Amlodipine [Norvasc] 10 mg PO DAILY 10/13/18 Aspirin 81 mg PO DAILY 10/13/18 Atorvastatin Calcium [Lipitor] 80 mg PO QHS 10/13/18 Bumetanide 3 mg PO BID 10/13/18 Diclofenac [Voltaren] 75 mg PO BIDCM 10/13/18 Duloxetine HCl 30 mg PO DAILY 10/13/18 Ferrous Sulfate [Ferosul] 325 mg PO QODAY 10/13/18 Gabapentin 600 mg PO TID 10/13/18 Hydroxyzine HCl 25 mg PO TID PRN 10/13/18 Insulin Glargine,Hum.rec.anlog [Santosaglbrittany Lozano U-100] 30 unit SC BID 10/13/18 Melatonin 20 mg PO QHS PRN 10/13/18 Sertraline HCl 100 mg PO DAILY 10/13/18 hydrALAZINE [Apresoline] 25 mg PO TID 10/13/18 Primary Care Physician: Care Physician,No Primary [NON-STAFF] - Disposition: Acute care Hospital Minutes spent on discharge:: 50 Patient Condition:: Stable Medical Necessity - Tobacco Use Smoking Status: Never smoker Tobacco Use: Non-smoker Meaningful Use Info Meaningful Use Diagnoses (Choose all that apply): None applicable Code Visit Inpatient E&M: 63135 Disch Hosp
[2018-10-19 13:42] LABS: Eosinophil Ct. Urine No Eosinophils Seen % (.)
--- NOTE | 2018-10-19 14:00 | NURSING ---
Called report on patient to nurse Vora at [facility] - given SBAR. Given my direct line for any questions.
[2018-10-19] MEDS: Amox/Clavulanate 500 MG Tablet PO (14:10)
[2018-10-19] MEDS: Collagenase 30gm Tube 1 APPLIC TOPICAL (14:12)
[2018-10-19 14:25] LABS: Bedside Glucose 133 mg/dL (70-110)
[2018-10-19] MEDS: DOPamine IV 800 MG/250 ML IV.SOLN. IV (14:45)
[2018-10-19 17:06] LABS: Bedside Glucose 142 mg/dL (70-110)
--- NOTE | 2018-10-19 17:11 | NURSING ---
Called and spoke to Nadine SOTO at [facility] and gave most recent vitals - recent blood sugar and brief update to report given already to Vielka SOTO. Given my phone number. Patients belongings bagged - cell phone with patient. Glasses and wallet in red reusable bag patient has from home. PT aware.
--- NOTE | 2018-10-19 17:26 | NURSING ---
Called Nadine back and informed that drip was stopped since his BP's were running higher and BP and HR above parameter in drip
== END 2018-10-19 17:07 | disposition short-term general hospital (02) | DRG 570 ==
LOC: ED 14:07 → MS3 15:36 → PCU 10-18 02:04
PROVIDERS: Hospitalist; Internal Medicine; Internal Medicine Cardiovascular Disease; Internal Medicine Critical Care Medicine; Podiatrist; Admitting Provider Internal Medicine; Emergency Provider Emergency Medicine
DX: L03.115 Cellulitis of right lower limb (principal); G92 Toxic encephalopathy; L97.419 Non-pressure chronic ulcer of right heel and midfoot with unspecified severity; I50.22 Chronic systolic (congestive) heart failure; N17.9 Acute kidney failure, unspecified; I13.0 Hypertensive heart and chronic kidney disease with heart failure and stage 1 through stage 4 chronic kidney disease, or unspecified chronic kidney disease; L97.429 Non-pressure chronic ulcer of left heel and midfoot with unspecified severity; E11.42 Type 2 diabetes mellitus with diabetic polyneuropathy; E11.22 Type 2 diabetes mellitus with diabetic chronic kidney disease; N18.3 Chronic kidney disease, stage 3 (moderate); B95.62 Methicillin resistant Staphylococcus aureus infection as the cause of diseases classified elsewhere; R00.1 Bradycardia, unspecified; I25.10 Atherosclerotic heart disease of native coronary artery without angina pectoris; E11.649 Type 2 diabetes mellitus with hypoglycemia without coma; E78.5 Hyperlipidemia, unspecified; M19.90 Unspecified osteoarthritis, unspecified site; E66.9 Obesity, unspecified; B95.2 Enterococcus as the cause of diseases classified elsewhere; G47.33 Obstructive sleep apnea (adult) (pediatric); I25.5 Ischemic cardiomyopathy; Z95.1 Presence of aortocoronary bypass graft; Z68.36 Body mass index [BMI] 36.0-36.9, adult; Z95.810 Presence of automatic (implantable) cardiac defibrillator; Z79.4 Long term (current) use of insulin; Z95.5 Presence of coronary angioplasty implant and graft; Z79.899 Other long term (current) drug therapy
CPT/HCPCS: 36415; 36600; 73630; 76770; 78315; 80048; 80061; 80076; 80202; 81001; 82140; 82570; 82803; 82962; 83036; 83735; 84540; 85025; 85610; 85652; 85730; 86140; 87040; 87070; 87075; 87077; 87186; 87205; 87640; 93005; 93306; 93923; 94640; 94660; 97110; 97162; 97166; 97530; 97802; 99281; J2997; J7030; J7040; J7050; Q9957; A4216; C1752; C8929; J2405

== ENCOUNTER 2018-10-27 22:17 | Inpatient (IN) | payer MEDICARE, OTHER, SELFPAY ==
[2018-10-13 15:40] VITALS: BMI 36.9
[2018-10-27 22:18] VITALS: BP 130/75; PULSE 91; RESP 21; TEMP 37.4; O2SAT 88; BMI 37.5
--- NOTE | 2018-10-27 22:21 | ED.RN ---
CALLED FOR EKG PER RN REQUEST, PULLED OLD EKGS FOR
--- NOTE | 2018-10-27 22:28 | EKG12_ITS ---
Test Reason : CP Blood Pressure : / mmHG Vent. Rate : 091 BPM Atrial Rate : 091 BPM P-R Int : 222 ms QRS Dur : 162 ms QT Int : 418 ms P-R-T Axes : 078 251 058 degrees QTc Int : 514 ms Sinus rhythm with 1st degree A-V block Right bundle branch block Abnormal ECG Confirmed by AMY KEY, ARMIDA ([id number]), assistant film editor MATHIEU KOENIG ([id number]) on 10/29/2018 3:22:59 PM Referred By: Confirmed By:ARMIDA REYES MD
[2018-10-27 22:39] VITALS: O2SAT 90
--- NOTE | 2018-10-27 22:40 | RAD_ITS ---
STUDY: X-RAY CHEST REASON FOR EXAM: Male, 62 years old. Chest pain. TECHNIQUE: Single frontal view of the chest. COMPARISON: August 11, 2015 FINDINGS: There is no new focal consolidation. There is a pacer device in place. Sternal cerclage wires are present from a prior sternotomy. Cardiac silhouette is within normal limits. There is a right-sided central venous catheter in place terminating within the superior vena cava. Normal mediastinum and rachele. Normal visualized pulmonary arteries. Normal visualized aortic arch and descending thoracic aorta. Normal visualized thoracic spine. There is a left lower posterior rib deformity consistent with a healed fracture. There are degenerative changes of the visualized right shoulder. There is no demonstrated abnormality of the visualized soft tissue structures of the upper abdomen. RAD/Chest 1 View (Portable) IMPRESSION: No acute cardiopulmonary process. Electronically Signed: Elham Wesley MD at 22:56 EST Tel , Service support ,
[2018-10-27 22:44] LABS: Absolute Lymphocyte Count 1.08 X10^3/ul (0.83-4.51); Absolute Neutrophil Count 10.7 X10^3/uL (2.0-7.7); Basophil# 0.03 X10^3/uL; Basophil% 0.2 % (0-1); Eosinophil# 0.55 X10^3/uL; Eosinophils% 4.2 % (0-5); Hematocrit 28.4 % (40-54); Lymphocyte # 1.08 X10^3/ul (4.0); Lymphocyte % 8.2 % (19-41); Mean Corp Hgb Conc 31.7 g/gl (32-36); Mean Corpuscular Hgb 29.3 pg (27.0-32.0); Mean Corpuscular Volume 92.5 fL (80-94); Mean Platelet Vol. 8.7 fl (6.2-12.0); Monocyte# 0.77 X10^3/uL; Monocyte% 5.9 % (0-10); Neutrophil # 10.66 X10^3/uL (2.7-7.7); Neutrophil % 81.3 % (47-70); Platelet Count 202 K/mm3 (150-450); RBC Distribution Width CV 16.9 % (11.6-14.6); Red Blood Count 3.07 M/mm3 (4.6-6.2); White Blood Count 13.1 K/mm3 (4.4-11.0)
[2018-10-27 22:45] LABS: POSITIVE COUNT NO; POSITIVE DIFFERENTIAL NO; POSITIVE MORPHOLOGY NO
[2018-10-27 22:54] VITALS: BP 153/90; PULSE 82
[2018-10-27] MEDS: proMETHazine 25 MG/ML Syringe 6.25 MG IV (22:54)
[2018-10-27 22:57] LABS: Anion Gap 9 (5-15); BUN 30 mg/dL (7-18); BUN/Creat Ratio 24.4 RATIO (10-20); Calcium,Total 8.4 mg/dL (8.5-10.1); Chloride 101 mmol/L (98-107); Creatinine, Serum 1.23 mg/dL (0.70-1.30); EST Glomerular Filtration Rate 63 mL/min (>60); Est Glom Filt Rate - Afr Amer 77 mL/min (>60); Estimated Creatinine Clearance 63.07 ml/min; Glucose 227 mg/dL (74-106); Potassium 3.3 mmol/L (3.5-5.1); Sodium Level 138 mmol/L (136-145)
[2018-10-27 22:58] VITALS: BP 117/64; PULSE 91
[2018-10-27 23:16] LABS: BNP,B-Type NATRIURETIC PEPTIDE 1581.3 pg/mL (0-100)
--- NOTE | 2018-10-27 23:19 | ED.VISSUMM ---
- ER Visit Summary Date of Service: 10/27/18 Chief Complaint: Chest pain History of Present Illness: The patient is a 62 M with multiple comorbidities including coronary artery disease status post CABG with multiple stents, cardiomyopathy, implanted defibrillator, hyperlipidemia, diabetes, and heel infection presents to the emergency department chest pain. The patient was recently admitted to the hospital about 2 weeks ago for cellulitis with concern for osteomyelitis. The patient was placed on IV antibiotics. He ended up having acute kidney injury from his antibiotics and was transferred to [facility]. He had a temporary dialysis catheter placed, but his kidney function recovered and he did not require dialysis. He states his been at home. Today, he had gradual onset of chest heaviness and shortness of breath. States his been worsening. He states he does feel like his prior MIs in the past. He denies any fever or chills. He has had a scant cough. Mild dyspnea. Physical Examination: Vital signs reviewed General: Well-nourished, well-developed Head: Normocephalic, atraumatic Eyes: Pupils equal and reactive, extraocular muscles intact Neck, supple, no lymphadenopathy Heart: Regular rate and rhythm Respiratory: No distress, clear bilaterally Abdomen: Soft, nontender, nondistended, no peritoneal signs Back: Nontender Extremities: Nontender, no edema, no cords Skin: Normal color no rash Neuro: Alert and oriented, no focal or lateralizing deficits Test Results: [] Emergency Department Course and Treatment: EKG was obtained on patient arrival. It showed right bundle branch block, but no acute ischemic change. This was unchanged from prior. Patient was given nitro and aspirin. He continued to complain of some mild pain but was improved. His initial cardiac enzymes are mildly elevated. He also has a leukocytosis, but has had no other infectious symptoms. BNP is elevated. My suspicion is that the patient likely has chronic respiratory failure especially given his morbid obesity and dilated cardia myopathy. With his chest pain and indeterminate cardiac enzymes, I do feel that he would benefit from admission for cardiac rule out. Patient was discussed with the hospitalist. Treatment Plan: [] Disposition: Admission Impression: 1. Chest pain 2. CHF This note was generated with [employer] dictation software. It may contain incorrect words, spelling, and punctuation that were not noted in review of the chart prior to signing ED Disposition - Plan for ED Patient: Chief Complaint: Chest Pain Referrals: [facility] Doctor,Out of [Primary Care Provider] -
[2018-10-28] VITALS (25 sets, daily range): BP systolic 119–154; BP diastolic 70–79; PULSE 65–86; RESP 13–20; TEMP 36.3–37.3; O2SAT 93–98; BMI 36.7
--- NOTE | 2018-10-28 | HP.PCM_ITS ---
Problem List (1) S/P PTCA (percutaneous transluminal coronary angioplasty) Status: Chronic (2) Cardiomyopathy Status: Chronic Qualifiers: (3) ICD (implantable cardioverter-defibrillator) in place Status: Chronic (4) Hyperlipidemia Status: Chronic (5) DM type 2 (diabetes mellitus, type 2) Status: Chronic (6) Chronic CHF (congestive heart failure) Status: Acute Comment: ef=25% as of 04/04 (7) CAD (coronary artery disease) Status: Chronic Comment: extensive disease multiple stents (8) Hx of CABG Status: Chronic (9) Obesity Status: Chronic (10) Chest pain Status: Acute History of Present Illness Date of Admission: 10/27/18 Chief Complaint: chest pain and shortness of breath The patient is a 62 year old male patient with an extensive cardiac history including OK, CHF, Cardiomyopathy, 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 He was recently at [facility] following treatment for ATN secondary to IV antibiotics for a wound on his heel. His kidney function improved without dialysis. He states nitro did little to help his chest pain. The pain is moderate and substernal. WBC count is 13, hemoglobin is 9.0. potassium is 3.3, troponin. 0.052, BNP is >1500. CXR is negative for acute findings. He will be admitted for chest pain, echo and stress to be done in am along with cardiology consult. 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) mediport placement (Chronic) Hyperlipidemia (Chronic) DM type 2 (diabetes mellitus, type 2) (Chronic) Carotid artery stenosis (Chronic) R CEA CAD (coronary artery disease) (Chronic) extensive disease multiple stents Hx of CABG (Chronic) hx epidural abscess (Chronic) Obesity (Chronic) Benign hypertension (Chronic) Allergies metoclopramide HCl [From Reglan] Adverse Reaction (Verified 10/13/18 12:27) goofy, anxious, elevated BP ondansetron HCl [From Zofran] Adverse Reaction (Verified 10/13/18 12:27) goofy, anxious, elevated BP Gztbogr-Iux-Ykd Reductase Inhibitor Adverse Reaction (Verified 10/13/18 16:05) rhabdomyolosis Home Medications: Ambulatory Orders Medication Instructions Recorded Carvedilol [Coreg (Beta Ronald)] 25 mg PO BID 08/11/15 Isosorbide Mononitrate [Imdur] 30 mg PO BID 03/05/16 Tizanidine HCl 8 mg PO TID PRN 03/05/16 Amlodipine [Norvasc] 10 mg PO DAILY 10/13/18 Atorvastatin Calcium [Lipitor] 80 mg PO QHS 10/13/18 Bumetanide 2 mg PO BID 10/13/18 Duloxetine HCl 30 mg PO DAILY 10/13/18 Ferrous Sulfate [Ferosul] 325 mg PO QODAY 10/13/18 Gabapentin 600 mg PO TID 10/13/18 Hydroxyzine HCl 25 mg PO TID PRN 10/13/18 Insulin Glargine,Hum.rec.anlog 30 unit SC BID 10/13/18 [Basaglar Kwikpen U-100] Melatonin 20 mg PO QHS PRN 10/13/18 Sertraline HCl 100 mg PO DAILY 10/13/18 hydrALAZINE [Apresoline] 25 mg PO TID 10/13/18 Surgical History: appendectomy, cataract, cholecystectomy, coronary bypass surgery - 2004 - [facility], herniorrhaphy, tonsillectomy, - - Cardiac stent placement ?24 (according to patient), right carotid endarterectomy. Smoking Status: Never smoker - *Family History Maternal History Items: No pertinent history Paternal History Items: Heart Disease - of an OK at age 61 Sibling History Items: No pertinent history Review of Systems Constitutional: Reports: Weakness. Denies: Chills, Fever, Weight Change HEENT: Denies: Head Aches, Sinus Congestion, Sinus Drainage Cardiovascular: Reports: Chest Pain. Denies: Palpitations Respiratory: Reports: Shortness of breath at rest. Denies: Cough, Sputum production Gastrointestinal: Denies: Abdominal Pain, Nausea, Vomiting Genitourinary: Denies: Dysuria Musculoskeletal: Denies: Joint Pain, Joint Tenderness Skin: Reports: Wounds. Denies: Rash Neurological: Denies: Numbness, Tingling, Focal weakness Psychiatric: Denies: Anxiety, Depression, Homicidal Ideations, Suicidal Ideations Hematologic/ Lymphatic: Denies: Easy Bruising, Easy Bleeding VTE Information - Inpt Only VTE Present on Admission: No VTE Mechan Device Prophylaxis: None VTE Pharm Prophylaxis ordered?: Yes Patient Problems: Active and Suspected Problems Chest pain (Acute) - Physical Exam General: Alert, Oriented x3, Cooperative HEENT: Atraumatic, Normocephalic Neck: Supple Lungs: Clear to auscultation, Normal air movement, No rhonchi, No wheeze, No rales Cardiovascular: Regular rate, Normal S1, Normal S2, No murmurs Abdomen: Bowel Sounds Present, Soft, Non Tender, Obese Extremities: No edema, Capillary Refill Less than 3 Seconds Skin: No rashes, Ulcer/ Wound Musculoskeletal: No Tenderness to Palpation of Joints or Extremities Neurological: Neuro grossly intact Psych/Mental Status: Normal Affect, Appropriate Vital Signs Temp Pulse Resp BP Pulse Ox 99.4 F H 91 21 H 117/64 90 10/27/18 22:18 10/27/18 22:58 10/27/18 22:18 10/27/18 22:58 10/27/18 22:39 Oxygen Flow Rate (L/min) 2 Oxygen Delivery Method Nasal Cannula Weight: 254 lb 6.615 oz Body Mass Index (BMI) 37.5 Finger Stick Blood Glucose 42 Laboratory Tests Past 24 Hrs 10/27/18 10/27/18 10/27/18 22:34 22:34 22:34 WBC 13.1 H RBC 3.07 L Hgb 9.0 L Hct 28.4 L MCV 92.5 MCH 29.3 MCHC 31.7 L RDW 16.9 H RDW Differential 56.0 H Plt Count 202 MPV 8.7 Immature Gran % (Auto) 0.200 Neut % (Auto) 81.3 H Lymph % (Auto) 8.2 L [place] % (Auto) 5.9 Eos % (Auto) 4.2 Baso % (Auto) 0.2 Absolute Neuts (auto) 10.7 H Absolute Lymphs (auto) 1.08 Total Counted Not Reportable Sodium 138 Potassium 3.3 L Chloride 101 Carbon Dioxide 28.0 Anion Gap 9 BUN 30 H Creatinine 1.23 Estim Creat Clear Calc 63.07 Est GFR (MDRD) Af Amer 77 Est GFR (MDRD) Non-Af 63 BUN/Creatinine Ratio 24.4 H Glucose 227 H Calcium 8.4 L Troponin I 0.052 H B-Natriuretic Peptide 1581.3 H Assessment/Plan All Active Problems Chest pain (Acute) Bradycardia (Acute) Encephalopathy acute (Acute) AYE (acute kidney injury) (Acute) Pain of right heel (Acute) Cellulitis of right heel (Acute) Chronic CHF (congestive heart failure) (Acute) Chronic Problems S/P PTCA (percutaneous transluminal coronary angioplasty) (Chronic) Cardiomyopathy (Chronic) ICD (implantable cardioverter-defibrillator) in place (Chronic) mediport placement (Chronic) Hyperlipidemia (Chronic) DM type 2 (diabetes mellitus, type 2) (Chronic) Carotid artery stenosis (Chronic) R CEA CAD (coronary artery disease) (Chronic) extensive disease multiple stents Hx of CABG (Chronic) hx epidural abscess (Chronic) Obesity (Chronic) Benign hypertension (Chronic) Plan 1. Chest Pain- cycle cardiac enzymes, consult Dr Ott, morphine , nitro, oxygen and aspirin per routine, echo and nuclear stress test in am after discussing case with Dr. Rg. repeat CBC, BMP in am 2. CHF - Lasix in ER, repeat BNP in am 3. DVT prophylaxis- LMWH for DVT prophylaxis Code Visit Inpatient E&M: 09767 Init Hosp L3
[2018-10-28] MEDS: Morphine 4 MG/ML Syringe IV ×5 (00:04→22:22)
[2018-10-28] MEDS: hydrOXYzine PAM 25 MG Capsule PO ×2 (01:10→22:23)
[2018-10-28] MEDS: 0.9% NaCl VAD Flush 10 ML IV ×9 (01:20→22:40)
--- NOTE | 2018-10-28 03:06 | EKG12_ITS ---
Test Reason : CP ADMISSION Blood Pressure : / mmHG Vent. Rate : 086 BPM Atrial Rate : 086 BPM P-R Int : 224 ms QRS Dur : 164 ms QT Int : 430 ms P-R-T Axes : 059 258 066 degrees QTc Int : 514 ms Sinus rhythm with 1st degree A-V block Right bundle branch block Abnormal ECG Confirmed by AMY KEY, ARMIDA ([id number]), primer expeditor and drier MATHIEU KOENIG ([id number]) on 10/30/2018 10:50:20 AM Referred By: HERMINIO Confirmed By:ARMIDA REYES MD
[2018-10-28 04:43] LABS: International Normalized Ratio 1.3; Prothrombin Time (Protime)PT. 16.5 SECONDS (11.7-14.9)
[2018-10-28 05:40] LABS: BNP,B-Type NATRIURETIC PEPTIDE 1640.2 pg/mL (0-100)
[2018-10-28 05:46] LABS: ALB/GLOB Ratio 0.7 RATIO (0.9-2.4); AST(SGOT) 32 U/L (15-37); Alanine Aminotransfer ALT/SGPT 24 U/L (16-61); Albumin, Serum 2.8 g/dL (3.2-5.0); Alkaline Phosphatase 248 U/L (45-117); Anion Gap 7 (5-15); BUN 31 mg/dL (7-18); BUN/Creat Ratio 24.2 RATIO (10-20); Bilirubin, Direct 0.88 mg/dL (0.00-0.30); Calcium,Total 8.1 mg/dL (8.5-10.1); Chloride 102 mmol/L (98-107); Cholesterol 75 mg/dL (200); Creatinine, Serum 1.28 mg/dL (0.70-1.30); EST Glomerular Filtration Rate 61 mL/min (>60); Est Glom Filt Rate - Afr Amer 73 mL/min (>60); Estimated Creatinine Clearance 59.84 ml/min; Globulin 4.1 g/dL (2.2-4.2); Glucose 167 mg/dL (74-106); High Density Lipoprotein 27 mg/dL; Potassium 3.5 mmol/L (3.5-5.1); Protein, Total 6.9 g/dL (6.4-8.2); Sodium Level 139 mmol/L (136-145); Thyroid Stim Hormone (TSH) 4.74 uIU/mL (0.358-3.74); Triglycerides 74 mg/dL; Very Low Density Lipoprotein 15 mg/dL (5-40)
[2018-10-28] MEDS: hydrALAZINE 25 MG Tablet PO ×3 (05:59→21:43)
[2018-10-28] MEDS: Gabapentin 600 MG Tablet PO ×3 (06:00→21:43)
[2018-10-28] MEDS: Aspirin E.C. 325 MG Tablet PO (06:00)
[2018-10-28 06:01] LABS: Bedside Glucose 154 mg/dL (70-110)
[2018-10-28 06:57] LABS: Absolute Lymphocyte Count 1.13 X10^3/ul (0.83-4.51); Absolute Neutrophil Count 9.1 X10^3/uL (2.0-7.7); Basophil# 0.07 X10^3/uL; Basophil% 0.6 % (0-1); Eosinophil# 0.66 X10^3/uL; Eosinophils% 5.5 % (0-5); Hematocrit 27.2 % (40-54); Hemoglobin 8.4 g/dl (13.0-16.5); Lymphocyte # 1.13 X10^3/ul (4.0); Lymphocyte % 9.5 % (19-41); Mean Corp Hgb Conc 30.9 g/gl (32-36); Mean Corpuscular Volume 93.8 fL (80-94); Mean Platelet Vol. 9.8 fl (6.2-12.0); Monocyte# 0.94 X10^3/uL; Monocyte% 7.9 % (0-10); Neutrophil # 9.13 X10^3/uL (2.7-7.7); Neutrophil % 76.3 % (47-70); Platelet Count 216 K/mm3 (150-450); RBC Distribution Width SD 58.1 fl (35.1-43.9)
[2018-10-28 07:00] LABS: POSITIVE COUNT NO; POSITIVE DIFFERENTIAL NO; POSITIVE MORPHOLOGY NO
--- NOTE | 2018-10-28 08:05 | NURSING ---
Pt off the unit for stress/echo.
--- NOTE | 2018-10-28 08:22 | NURSING ---
Per stress lab, pt unable to complete stress test today due to CP rates a 7 on pain scale and nausea. Dr. Rg aware. Pt will be coming back to the unit.
[2018-10-28] MEDS: amLODIPine 10 MG Tablet PO (09:26)
[2018-10-28] MEDS: DULoxetine Hcl 30 MG Capsule PO (09:26)
[2018-10-28] MEDS: Isosorbide Mononitrate 30 MG Tablet PO ×2 (09:26→21:43)
[2018-10-28] MEDS: Sertraline 100 MG Tablet PO (09:26)
[2018-10-28] MEDS: Carvedilol 25 MG Tablet PO ×2 (09:27→21:43)
[2018-10-28] MEDS: Furosemide 40 MG/4 ML Vial IV ×2 (09:27→17:36)
[2018-10-28] MEDS: Bumetanide 2 MG Tablet PO ×2 (09:27→21:43)
[2018-10-28 09:51] LABS: Bedside Glucose 139 mg/dL (70-110)
--- NOTE | 2018-10-28 09:59 | CON.PCM_ITS ---
Problem List (1) Chest pain Status: Acute (2) Shortness of breath Status: Acute (3) Abnormal cardiac enzyme level Status: Acute (4) CAD (coronary artery disease) Status: Chronic Comment: extensive disease multiple stents (5) S/P PTCA (percutaneous transluminal coronary angioplasty) Status: Chronic (6) S/P CABG (coronary artery bypass graft) Status: Chronic (7) Cardiomyopathy Status: Chronic Qualifiers: (8) Chronic CHF (congestive heart failure) Status: Acute Comment: ef=25% as of 04/04 (9) ICD (implantable cardioverter-defibrillator) in place Status: Chronic (10) Hyperlipidemia Status: Chronic (11) Benign hypertension Status: Chronic (12) DM type 2 (diabetes mellitus, type 2) Status: Chronic (13) Carotid artery stenosis Status: Chronic Comment: R CEA (14) Anemia Status: Acute Reason for Consult Date of Consultation: 10/28/18 History of Present Illness: The patient is a 63 year old white male who has previously been evaluated by Faisal Rg MD of the [facility] and currently has been following with cardiology in [place], [place] who is referred at this time for evaluation of concerns of chest discomfort, shortness of breath/dyspnea, nausea, abnormal cardiac enzymes, superimposed upon a history of underlying CAD, PCI, CABG, ischemic mediated cardiomyopathy, chronic systolic CHF, single-chamber ICD, hyperlipidemia, hypertension, diabetes mellitus, carotid artery disease, recent acute renal insufficiency, and now a recent history of anemia thought secondary to a GI bleed secondary to peptic ulcer disease-Per the patient's report, for cardiovascular evaluation. The patient was recently evaluated at [facility] in cardiovascular consultation on 10/18/2018. At that time there was concerns about his multiple medical issues including acute renal insufficiency and the need for dialysis catheter placement and subsequent hemodialysis. He was transferred to [facility] for further evaluation and care. He states while at [facility] a dialysis catheter was placed, however, he states after his tjwnczuedzl-mygevyhfu-vvpb discontinued that his renal function improved and he did not require dialysis. However while there he was diagnosed with progressive anemia, underwent an EGD, and was diagnosed with peptic ulcer disease. He states he was told he required a repeat EGD in approximately 2 months. He was then released home for outpatient follow-up. He notes that he has had ongoing chest discomfort that waxes and wanes, of ongoing shortness of breath/dyspnea, and nausea. He is also noted edema of his lower extremities. He presented back to the [facility] for reevaluation. He was found to have concerns of abnormal troponin I levels. His ECG demonstrated sinus rhythm with a continued right bundle branch block pattern. He was referred for a pharmacologic stress nuclear imaging study, however, based upon his ongoing symptoms, he declined the study. He has denied any obvious near syncope or syncope. He states his ICD has not discharged. He does not recall undergoing any cardiovascular testing while at [facility]. He only recalls undergoing evaluation by nephrology and gastroenterology. [] Past Medical History Allergies/Adverse Reactions: Allergies metoclopramide HCl [From Reglan] Adverse Reaction (Verified 10/13/18 12:27) goofy, anxious, elevated BP ondansetron HCl [From Zofran] Adverse Reaction (Verified 10/13/18 12:27) goofy, anxious, elevated BP Kqjxfuu-Vfs-Rnk Reductase Inhibitor Adverse Reaction (Verified 10/13/18 16:05) rhabdomyolosis Home Medications: Ambulatory Orders Medication Instructions Recorded Carvedilol [Coreg (Beta Ronald)] 25 mg PO BID 08/11/15 Isosorbide Mononitrate [Imdur] 30 mg PO BID 03/05/16 Tizanidine HCl 8 mg PO TID PRN 03/05/16 Amlodipine [Norvasc] 10 mg PO DAILY 10/13/18 Atorvastatin Calcium [Lipitor] 80 mg PO QHS 10/13/18 Bumetanide 2 mg PO BID 10/13/18 Duloxetine HCl 30 mg PO DAILY 10/13/18 Ferrous Sulfate [Ferosul] 325 mg PO QODAY 10/13/18 Gabapentin 600 mg PO TID 10/13/18 Hydroxyzine HCl 25 mg PO TID PRN 10/13/18 Insulin Glargine,Hum.rec.anlog 30 unit SC BID 10/13/18 [Basaglbrittany Lozano U-100] Melatonin 20 mg PO QHS PRN 10/13/18 Sertraline HCl 100 mg PO DAILY 10/13/18 hydrALAZINE [Apresoline] 25 mg PO TID 10/13/18 Past Medical History (Chronic Problems): Chronic Problems S/P CABG (coronary artery bypass graft) (Chronic) S/P PTCA (percutaneous transluminal coronary angioplasty) (Chronic) Cardiomyopathy (Chronic) ICD (implantable cardioverter-defibrillator) in place (Chronic) mediport placement (Chronic) Hyperlipidemia (Chronic) DM type 2 (diabetes mellitus, type 2) (Chronic) Carotid artery stenosis (Chronic) R CEA CAD (coronary artery disease) (Chronic) extensive disease multiple stents Hx of CABG (Chronic) hx epidural abscess (Chronic) Obesity (Chronic) Benign hypertension (Chronic) Surgical History: appendectomy, cataract, cholecystectomy, coronary bypass surgery - 2005 - [facility], herniorrhaphy, tonsillectomy, - - Cardiac stent placement ?24 (according to patient), right carotid endarterectomy. - *Family History Maternal History Items: No pertinent history Paternal History Items: Heart Disease - of an SD at age 61 Sibling History Items: No pertinent history Smoking Status: Never smoker Review of Systems - Review of Systems General: Reports: Weakness. Denies: Fever, Fatigue, Night Sweats Cardiovascular: Reports: Chest Discomfort, Chest Discomfort at Rest, Chest Discomfort with Exertion, Shortness of Breath, Shortness of Breath at Rest, Shortness of Breath with Exertion, Peripheral Edema. Denies: Orthopnea, PND, Palpitations, Lightheadedness, Dizziness, Near Syncope, Syncope Respiratory: Reports: Shortness of Breath. Denies: Cough, Sputum Production, Hemoptysis Gastrointestinal: Denies: Hematemesis, Hematochezia, Melena Genitourinary: Denies: Dysuria, Hematuria Skin: Denies: Rash Hematologic/ Lymphatic: Reports: Anemia Subjectve: This is a 63-year-old white male who appears to not be feeling well at this time but in no acute distress. Objective: Vital Signs Temp Pulse Resp BP Pulse Ox 98.6 F 82 18 148/79 H 98 10/28/18 05:55 10/28/18 06:15 10/28/18 05:55 10/28/18 05:55 10/28/18 05:55 Oxygen Flow Rate (L/min) 2 Oxygen Delivery Method Room Air Weight: 248 lb 10.903 oz Body Mass Index (BMI) 36.7 Finger Stick Blood Glucose 42 Intake and Output for Last 24 Hours 10/26/18 10/27/18 10/28/18 23:59 23:59 23:59 Output Total 200 / 200 Balance -200 / -200 General: Awake, Alert, Oriented x 3, Cooperative, Ill Appearing HEENT: Atraumatic, Normocephalic, PERRL, EOMI, Sclera Non Icteric Oral: Moist Mucosa Neck: Supple, Good ROM, No JVD Lungs: Clear to auscultation Cardiovascular: Regular Rhythm, Normal S1, Normal S2 Abdomen: Bowel Sounds Present, Soft, Non Tender Extremities: Mild RLE Edema, Mild LLE Edema Psych/Mental Status: Appropriate 10/27/18 22:34: WBC 13.1 H, RBC 3.07 L, Hgb 9.0 L, Hct 28.4 L, MCV 92.5, MCH 29.3, MCHC 31.7 L, RDW 16.9 H, RDW Differential 56.0 H, Plt Count 202, MPV 8.7, Immature Gran % (Auto) 0.200, Neut % (Auto) 81.3 H, Lymph % (Auto) 8.2 L, Toole % (Auto) 5.9, Eos % (Auto) 4.2, Baso % (Auto) 0.2, Absolute Neuts (auto) 10.7 H, Total Counted Not Reportable 10/27/18 22:34: Sodium 138, Potassium 3.3 L, Chloride 101, Carbon Dioxide 28.0, Anion Gap 9, BUN 30 H, Creatinine 1.23, Est GFR (MDRD) Af Amer 77, Est GFR (MDRD) Non-Af 63, BUN/Creatinine Ratio 24.4 H, Glucose 227 H, Calcium 8.4 L, Troponin I 0.052 H 10/27/18 22:34: B-Natriuretic Peptide 1581.3 H 10/28/18 01:25: Troponin I 0.051 H 10/28/18 04:25: WBC 12.0 H, RBC 2.90 L, Hgb 8.4 L, Hct 27.2 L, MCV 93.8, MCH 29. 0, MCHC 30.9 L, RDW 17.0 H, RDW Differential 58.1 H, Plt Count 216, MPV 9.8, Immature Gran % (Auto) 0.200, Neut % (Auto) 76.3 H, Lymph % (Auto) 9.5 L, Toole % (Auto) 7.9, Eos % (Auto) 5.5 H, Baso % (Auto) 0.6, Absolute Neuts (auto) 9.1 H, Total Counted Not Reportable 10/28/18 04:25: APTT 34.0 10/28/18 04:30: Sodium 139, Potassium 3.5, Chloride 102, Carbon Dioxide 30.0, Anion Gap 7, BUN 31 H, Creatinine 1.28, Est GFR (MDRD) Af Amer 73, Est GFR (MDRD) Non-Af 61, BUN/Creatinine Ratio 24.2 H, Glucose 167 H, Calcium 8.1 L, Total Bilirubin 1.60 H, Direct Bilirubin 0.88 H, Triglycerides 74, Cholesterol 75, LDL Cholesterol 33, VLDL Cholesterol 15, HDL Cholesterol 27 L 10/28/18 04:30: B-Natriuretic Peptide 1640.2 H 10/28/18 04:30: PT 16.5 H, INR 1.3 10/28/18 04:30: Troponin I 0.048 H Rhythm: Sinus rhythm EKG: As noted above ECHO: 10/18/2018: Technically difficult study; contrast injection performed; mildly dilated left ventricle with mild to moderate segmental systolic dysfunction; estimated LVEF 45%; mild concentric LVH; moderate left atrial enlargement; mild to moderate MR; mild TR; mild diffuse aortic valve thickening; trivial OH; borderline enlarged aortic root; estimated RV systolic pressure of 37 mmHg; diastolic dysfunction; pacemaker/ICD leads in the right atrium and right ventricle Cardiac Cath: 03/24/2015: [facility]: Left main coronary normal; LAD occluded; LCx proximal stent patent with distal 80% stenosis; RCA with distal 70% stenosis; LV dysfunction with an LVEF of 20-25% PCI: 03/24/2015: [facility]: PTCA/EVERTON to the LCx system and PTCA/EVERTON to the right PDA system CT Surgery: Reported as having a PARK to the LAD and an SVG to the diagonal branch-previously reported as occluded CXR: Preliminary evaluation: Post open heart surgery changes; post ICD changes; no acute cardiopulmonary disease process; please see official report Assessment/Plan 1. Chest pain/shortness of breath/nausea The patient has a combination of symptoms. The symptoms may be concerning for underlying cardiovascular disease. However at the same time they may be compatible with his multiple noncardiovascular issues as well. From a cardiac standpoint the patient has been noted to have indeterminate troponin I levels. His ECG is as noted above. His recent echocardiogram is as noted above. He will continue medical management with adjustment of medications as needed for the possibility of underlying cardiovascular involvement with his CAD/ischemic cardiomyopathy process. As part of this, based upon his anemia thought secondary to his recent GI bleed secondary to what he reports to be an the finding of peptic ulcer disease, be reasonable to try and increase his H&H and oxygen carrying capacity with additional PRBCs. He states he received 2 units of PRBCs while at [facility]. However, his H&H remains low. There may be a need for future noninvasive or invasive cardiovascular evaluation. However there may be hesitancy in proceeding in such manner at this time based upon a combination of concerns. These concerns would be in regard to his recent gastrointestinal bleeding process requiring multiple units of PRBCs as well as his recent acute renal insufficiency with continued concern of the possibility of, despite improvement in his renal function, IV contrast related studies producing an episode of acute renal insufficiency, etc. 2. CAD status post PCI and CABG The patient does have a history of underlying CAD, PCI, and CABG as previously noted. Again at the present time he will continue medical management. He may eventually need further noninvasive or invasive evaluation. However it may be prudent to attempt medical management in the interim until his overall status has improved. 3. Ischemic mediated cardiomyopathy He has recently undergone evaluation of his left ventricular wall motion and systolic function. He will need to continue medical therapy. He does have an ICD in place. 4. Chronic systolic CHF States while at [facility] his diuretics were discontinued. There is concern based upon his symptoms, lower extremity edema, and his elevated BNP level that he will retain fluid and have concerns of acute on chronic stomach mediated CHF. Thus he may need to be back on diuretic therapy. 5. ICD The patient does have a single-chamber ICD. It can be reassessed as needed. 6. Hperlipidemia lowering therapy as deemed appropriate. 7. Hypertension The patient will need to have his blood pressure monitored. His medications can be adjusted as needed. 8. Diabetes mellitus The patient will continue under the care of internal medicine for this. 9. Carotid artery disease The patient does have peripheral arterial occlusive disease and is status post right carotid endarterectomy. He will continue medical management and follow-up as deemed appropriate. 10. Anemia thought secondary to upper GI bleed secondary to peptic ulcer disease The patient should be considered for additional medical therapy and PRBCs. He states he was told he required a follow-up EGD in approximately 2 months. This note was generated using a voice recognition system and there may be incorrect words, spelling or punctuation that were not noted when reviewing the office note prior to saving.
[2018-10-28] MEDS: Insulin Lispro 100 UNIT/ML INSULN.PEN SQ ×3 (11:49→21:44)
--- NOTE | 2018-10-28 11:49 | NURSING ---
wound photo: left heel
--- NOTE | 2018-10-28 11:50 | NURSING ---
wound photo: right heel
[2018-10-28 12:00] LABS: Bedside Glucose 227 mg/dL (70-110)
--- NOTE | 2018-10-28 12:03 | CASEMGMT ---
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 and it is on file. He has a living will, but just moved so does not know where it is located right now. Letty GALVAN
--- NOTE | 2018-10-28 13:59 | US_ITS ---
STUDY: ABDOMINAL ULTRASOUND - RIGHT UPPER QUADRANT REASON FOR VISIT: Male, 63 years old. Elevated liver function tests. TECHNIQUE: Ultrasound evaluation of the right upper quadrant was performed with real-time and static smith-scale imaging. TECHNICAL QUALITY: Limited. Examination limited by bowel gas. COMPARISON: Renal ultrasound 10/17/2018. CTA chest 01/25/2015 and 09/26/2014. CT abdomen pelvis 06/19/2014 and 3-07/20/2014. FINDINGS: Liver: The liver measures 19.3 cm. There is mild lobularity of the hepatic contour. There is normal echogenicity of the liver. The bile ducts are within normal limits. There is hepatic color flow. The direction of portal flow is hepatopetal. There is no demonstrated mass lesion. Gallbladder: The patient is status post cholecystectomy. Common Bile Duct (C.B.D.): The common bile duct measures 7 mm. Pancreas: There is nonvisualization of the pancreas. Right Kidney: Normal size of the right kidney. The right kidney measures 13 x 7 x 6 cm. Normal renal cortex. The right cortex measures 2.5 cm. There is no demonstrated renal mass or cyst. There is no right hydronephrosis. There is small right pleural effusion. There is no ascites. US/Abdomen Limited IMPRESSION: Hepatomegaly and lobular hepatic contour. Mild cirrhosis not excluded. Status post cholecystectomy. Pancreas is obscured. Small right pleural effusion. Electronically Signed: Karishma Munoz MD at 23:35 EST , Service support ,
--- NOTE | 2018-10-28 14:06 | PCM.PROGNOTE ---
<Jessa Castaneda - Last Filed: 10/28/18 14:33> Patient Problems: Active and Suspected Problems Chest pain (Acute) Shortness of breath (Acute) Abnormal cardiac enzyme level (Acute) Anemia (Acute) Subjective: Patient seen and examined. Denies current chest pain. Reports he did have chest pain and shortness of breath overnight. Reports lower extremity edema. - Physical Exam General: Alert, Oriented x3, Cooperative, No apparent distress HEENT: Atraumatic, PERRLA, EOMI, Normocephalic Oral: Moist Mucosa Neck: Supple, No JVD, Negative Carotid Bruits Lungs: Clear to auscultation, Diminished Cardiovascular: Regular rate, Regular Rhythm, Normal S1, Normal S2, No murmurs Abdomen: Bowel Sounds Present, Soft, Non Tender, Non-Distended Extremities: No clubbing, No cyanosis, Edema - Bilateral lower extremities Skin: No rashes, No breakdown Musculoskeletal: No Tenderness to Palpation of Joints or Extremities Neurological: Cranial nerves II-XII grossly intact, Neuro grossly intact Psych/Mental Status: Normal Affect, Appropriate Vital Signs Temp Pulse Resp BP Pulse Ox 98.7 F 71 20 H 144/77 H 94 10/28/18 08:45 10/28/18 11:36 10/28/18 08:45 10/28/18 08:45 10/28/18 10:00 Oxygen Flow Rate (L/min) 2 Oxygen Delivery Method Nasal Cannula Weight: 248 lb 10.903 oz Body Mass Index (BMI) 36.7 Finger Stick Blood Glucose 42 Intake and Output for Last 24 Hours 10/26/18 10/27/18 10/28/18 23:59 23:59 23:59 Intake Total 360 / 360 Output Total 400 / 400 Balance -40 / -40 Laboratory Tests Past 24 Hrs 10/27/18 10/27/18 10/27/18 22:34 22:34 22:34 WBC 13.1 H RBC 3.07 L Hgb 9.0 L Hct 28.4 L MCV 92.5 MCH 29.3 MCHC 31.7 L RDW 16.9 H RDW Differential 56.0 H Plt Count 202 MPV 8.7 Immature Gran % (Auto) 0.200 Neut % (Auto) 81.3 H Lymph % (Auto) 8.2 L Travis % (Auto) 5.9 Eos % (Auto) 4.2 Baso % (Auto) 0.2 Absolute Neuts (auto) 10.7 H Absolute Lymphs (auto) 1.08 Total Counted Not Reportable PT INR APTT Sodium 138 Potassium 3.3 L Chloride 101 Carbon Dioxide 28.0 Anion Gap 9 BUN 30 H Creatinine 1.23 Estim Creat Clear Calc 63.07 Est GFR (MDRD) Af Amer 77 Est GFR (MDRD) Non-Af 63 BUN/Creatinine Ratio 24.4 H Glucose 227 H Calcium 8.4 L Total Bilirubin Direct Bilirubin AST ALT Alkaline Phosphatase Troponin I 0.052 H B-Natriuretic Peptide 1581.3 H Total Protein Albumin Globulin Albumin/Globulin Ratio Triglycerides Cholesterol LDL Cholesterol VLDL Cholesterol HDL Cholesterol TSH Blood Type Antibody Screen Crossmatch 10/28/18 10/28/18 10/28/18 01:25 04:25 04:25 WBC 12.0 H RBC 2.90 L Hgb 8.4 L Hct 27.2 L MCV 93.8 MCH 29.0 MCHC 30.9 L RDW 17.0 H RDW Differential 58.1 H Plt Count 216 MPV 9.8 Immature Gran % (Auto) 0.200 Neut % (Auto) 76.3 H Lymph % (Auto) 9.5 L Travis % (Auto) 7.9 Eos % (Auto) 5.5 H Baso % (Auto) 0.6 Absolute Neuts (auto) 9.1 H Absolute Lymphs (auto) 1.13 Total Counted Not Reportable PT INR APTT 34.0 Sodium Potassium Chloride Carbon Dioxide Anion Gap BUN Creatinine Estim Creat Clear Calc Est GFR (MDRD) Af Amer Est GFR (MDRD) Non-Af BUN/Creatinine Ratio Glucose Calcium Total Bilirubin Direct Bilirubin AST ALT Alkaline Phosphatase Troponin I 0.051 H B-Natriuretic Peptide Total Protein Albumin Globulin Albumin/Globulin Ratio Triglycerides Cholesterol LDL Cholesterol VLDL Cholesterol HDL Cholesterol TSH Blood Type Antibody Screen Crossmatch 10/28/18 10/28/18 10/28/18 04:30 04:30 04:30 WBC RBC Hgb Hct MCV MCH MCHC RDW RDW Differential Plt Count MPV Immature Gran % (Auto) Neut % (Auto) Lymph % (Auto) Travis % (Auto) Eos % (Auto) Baso % (Auto) Absolute Neuts (auto) Absolute Lymphs (auto) Total Counted PT 16.5 H INR 1.3 APTT Sodium 139 Potassium 3.5 Chloride 102 Carbon Dioxide 30.0 Anion Gap 7 BUN 31 H Creatinine 1.28 Estim Creat Clear Calc 59.84 Est GFR (MDRD) Af Amer 73 Est GFR (MDRD) Non-Af 61 BUN/Creatinine Ratio 24.2 H Glucose 167 H Calcium 8.1 L Total Bilirubin 1.60 H Direct Bilirubin 0.88 H AST 32 ALT 24 Alkaline Phosphatase 248 H Troponin I B-Natriuretic Peptide 1640.2 H Total Protein 6.9 Albumin 2.8 L Globulin 4.1 Albumin/Globulin Ratio 0.7 L Triglycerides 74 Cholesterol 75 LDL Cholesterol 33 VLDL Cholesterol 15 HDL Cholesterol 27 L TSH 4.74 H Blood Type Antibody Screen Crossmatch 10/28/18 10/28/18 04:30 10:55 WBC RBC Hgb Hct MCV MCH MCHC RDW RDW Differential Plt Count MPV Immature Gran % (Auto) Neut % (Auto) Lymph % (Auto) Travis % (Auto) Eos % (Auto) Baso % (Auto) Absolute Neuts (auto) Absolute Lymphs (auto) Total Counted PT INR APTT Sodium Potassium Chloride Carbon Dioxide Anion Gap BUN Creatinine Estim Creat Clear Calc Est GFR (MDRD) Af Amer Est GFR (MDRD) Non-Af BUN/Creatinine Ratio Glucose Calcium Total Bilirubin Direct Bilirubin AST ALT Alkaline Phosphatase Troponin I 0.048 H B-Natriuretic Peptide Total Protein Albumin Globulin Albumin/Globulin Ratio Triglycerides Cholesterol LDL Cholesterol VLDL Cholesterol HDL Cholesterol TSH Blood Type A POSITIVE Antibody Screen NEGATIVE Crossmatch See Detail POC Glucose 10/28/18 10/28/18 10/28/18 11:36 09:24 05:55 POC Glucose 227 H 139 H 154 H Medical Necessity - Tobacco Use Smoking Status: Never smoker Assessment/Plan All Active Problems Chest pain (Acute) Shortness of breath (Acute) Abnormal cardiac enzyme level (Acute) Anemia (Acute) 1. Chest pain/indeterminate troponin with history of CAD status post CABG/PTCA (PARK to LAD, 2004)-cardiology following. Patient was to undergo stress test this morning which was canceled. Cardiology recommending 1 unit PRBC for anemia. Continue medical management including aspirin, statin, carvedilol, Bumex, Lasix, Imdur. Further cardiac evaluation per cardiology recommendations. 2. Acute on chronic systolic CHF/Ischemic cardiomyopathy status post AICD in 2014-recent echo September 2018 with EF 45%. BNP elevated on admission 1640. Lower extremity edema. CXR clear. Diuretic regimen recently discontinued at [facility] due to acute renal failure. Resume previous Bumex and Lasix regimen. Cardiology following. 3. Acute on Chronic normochromic normocytic anemia/iron deficiency anemia-patient underwent EGD 10/23/2018 due to anemia with stool guaiac positive at [facility]. EGD findings showed normal esophagus, multiple gastric ulcers and small duodenal ulcer. Biopsy showed mild reactive gastropathy. Negative for H. pylori. Patient is not on a PPI? Initiate PPI given recent ulcers. Continue iron supplementation. 1 unit PRBC per cardiology request. Trend CBC. 4. Hypertension-stable, continue home Bumex, carvedilol, Lasix, hydralazine, isosorbide. 5. Hyperlipidemia-continue statin. 6. Type 2 diabetes [id number] AC at bedtime with sliding scale insulin. Continue Lantus regimen. 7. Anxiety/depression-continue home sertraline, duloxetine regimen. 8. History of CVA-continue aspirin, statin. 9. LISSA-continue CPAP regimen. 10. Chronic back pain-continue gabapentin, Zanaflex regimen. DVT prophylaxis-Lovenox subcu This patient was seen by JUANIS Butt under the supervision of Dr. Ramirez. <Nikia Ramirez E - Last Filed: 10/28/18 14:45> - Physical Exam Vital Signs Temp Pulse Resp BP Pulse Ox 98.5 F 65 16 119/71 94 10/28/18 14:31 10/28/18 14:31 10/28/18 14:31 10/28/18 14:31 10/28/18 14:31 Oxygen Flow Rate (L/min) 2 Oxygen Delivery Method Nasal Cannula Weight: 248 lb 10.903 oz Body Mass Index (BMI) 36.7 Finger Stick Blood Glucose 42 Intake and Output for Last 24 Hours 10/26/18 10/27/18 10/28/18 23:59 23:59 23:59 Intake Total 360 / 360 Output Total 400 / 400 Balance -40 / -40 Laboratory Tests Past 24 Hrs 10/27/18 10/27/18 10/27/18 22:34 22:34 22:34 WBC 13.1 H RBC 3.07 L Hgb 9.0 L Hct 28.4 L MCV 92.5 MCH 29.3 MCHC 31.7 L RDW 16.9 H RDW Differential 56.0 H Plt Count 202 MPV 8.7 Immature Gran % (Auto) 0.200 Neut % (Auto) 81.3 H Lymph % (Auto) 8.2 L Travis % (Auto) 5.9 Eos % (Auto) 4.2 Baso % (Auto) 0.2 Absolute Neuts (auto) 10.7 H Absolute Lymphs (auto) 1.08 Total Counted Not Reportable PT INR APTT Sodium 138 Potassium 3.3 L Chloride 101 Carbon Dioxide 28.0 Anion Gap 9 BUN 30 H Creatinine 1.23 Estim Creat Clear Calc 63.07 Est GFR (MDRD) Af Amer 77 Est GFR (MDRD) Non-Af 63 BUN/Creatinine Ratio 24.4 H Glucose 227 H Calcium 8.4 L Total Bilirubin Direct Bilirubin AST ALT Alkaline Phosphatase Troponin I 0.052 H B-Natriuretic Peptide 1581.3 H Total Protein Albumin Globulin Albumin/Globulin Ratio Triglycerides Cholesterol LDL Cholesterol VLDL Cholesterol HDL Cholesterol TSH Blood Type Antibody Screen Crossmatch 10/28/18 10/28/18 10/28/18 01:25 04:25 04:25 WBC 12.0 H RBC 2.90 L Hgb 8.4 L Hct 27.2 L MCV 93.8 MCH 29.0 MCHC 30.9 L RDW 17.0 H RDW Differential 58.1 H Plt Count 216 MPV 9.8 Immature Gran % (Auto) 0.200 Neut % (Auto) 76.3 H Lymph % (Auto) 9.5 L Travis % (Auto) 7.9 Eos % (Auto) 5.5 H Baso % (Auto) 0.6 Absolute Neuts (auto) 9.1 H Absolute Lymphs (auto) 1.13 Total Counted Not Reportable PT INR APTT 34.0 Sodium Potassium Chloride Carbon Dioxide Anion Gap BUN Creatinine Estim Creat Clear Calc Est GFR (MDRD) Af Amer Est GFR (MDRD) Non-Af BUN/Creatinine Ratio Glucose Calcium Total Bilirubin Direct Bilirubin AST ALT Alkaline Phosphatase Troponin I 0.051 H B-Natriuretic Peptide Total Protein Albumin Globulin Albumin/Globulin Ratio Triglycerides Cholesterol LDL Cholesterol VLDL Cholesterol HDL Cholesterol TSH Blood Type Antibody Screen Crossmatch 10/28/18 10/28/18 10/28/18 04:30 04:30 04:30 WBC RBC Hgb Hct MCV MCH MCHC RDW RDW Differential Plt Count MPV Immature Gran % (Auto) Neut % (Auto) Lymph % (Auto) Travis % (Auto) Eos % (Auto) Baso % (Auto) Absolute Neuts (auto) Absolute Lymphs (auto) Total Counted PT 16.5 H INR 1.3 APTT Sodium 139 Potassium 3.5 Chloride 102 Carbon Dioxide 30.0 Anion Gap 7 BUN 31 H Creatinine 1.28 Estim Creat Clear Calc 59.84 Est GFR (MDRD) Af Amer 73 Est GFR (MDRD) Non-Af 61 BUN/Creatinine Ratio 24.2 H Glucose 167 H Calcium 8.1 L Total Bilirubin 1.60 H Direct Bilirubin 0.88 H AST 32 ALT 24 Alkaline Phosphatase 248 H Troponin I B-Natriuretic Peptide 1640.2 H Total Protein 6.9 Albumin 2.8 L Globulin 4.1 Albumin/Globulin Ratio 0.7 L Triglycerides 74 Cholesterol 75 LDL Cholesterol 33 VLDL Cholesterol 15 HDL Cholesterol 27 L TSH 4.74 H Blood Type Antibody Screen Crossmatch 10/28/18 10/28/18 04:30 10:55 WBC RBC Hgb Hct MCV MCH MCHC RDW RDW Differential Plt Count MPV Immature Gran % (Auto) Neut % (Auto) Lymph % (Auto) Travis % (Auto) Eos % (Auto) Baso % (Auto) Absolute Neuts (auto) Absolute Lymphs (auto) Total Counted PT INR APTT Sodium Potassium Chloride Carbon Dioxide Anion Gap BUN Creatinine Estim Creat Clear Calc Est GFR (MDRD) Af Amer Est GFR (MDRD) Non-Af BUN/Creatinine Ratio Glucose Calcium Total Bilirubin Direct Bilirubin AST ALT Alkaline Phosphatase Troponin I 0.048 H B-Natriuretic Peptide Total Protein Albumin Globulin Albumin/Globulin Ratio Triglycerides Cholesterol LDL Cholesterol VLDL Cholesterol HDL Cholesterol TSH Blood Type A POSITIVE Antibody Screen NEGATIVE Crossmatch See Detail POC Glucose 10/28/18 10/28/18 10/28/18 11:36 09:24 05:55 POC Glucose 227 H 139 H 154 H Assessment/Plan Hospitalist note: I am seeing this patient in conjunction with Jessa Castaneda. I independently seen and examined the patient. Progress note above, laboratory data and imaging studies reviewed and I agree with the above treatment and workup plan. Patient seen and examined. Although initially, he denied any more chest pain this morning but when I saw the patient, he reported mild chest discomfort, denied shortness of breath. His troponin are borderline elevated and trending down. BNP is elevated. Chest x-ray reviewed. Today, he went for stress test but because his hemoglobin was 8.4 g/dL, Dr. Ott recommended blood transfusion before stress test. - Physical Exam General: Alert, Oriented x3, Cooperative, No apparent distress. HEENT: Atraumatic, PERRLA, EOMI. Neck: Supple, No JVD, Negative Carotid Bruits, Trachea Midline, Thyroid Normal. Lungs: Decreased breath sounds bilateral more at the bases with faint crackles, scattered rhonchi, no wheezes. Cardiovascular: Regular rate, Regular Rhythm, Normal S1, Normal S2, PMI Normal. Abdomen: Bowel Sounds Present, Soft, Non Tender, Non-Distended, No Hepato-splenomegaly. Extremities: No clubbing, No cyanosis, + edema Skin: No rashes, No breakdown Neurological: Neuro grossly intact Assessment and plan: #1 chest pain/indeterminate troponin: In context of history of CAD status post CABG and PTCA. Patient still having intermittent chest pain. Troponin are borderline elevated and trended down. He was sent down for stress test today but was canceled because of low hemoglobin. He is on aspirin, statins, Coreg, Lasix, Bumex and Imdur. Cardiology on the case, recommended blood transfusion before nuclear stress testing. #2 acute on chronic systolic CHF/ischemic cardiomyopathy, status post ICD. Most recent 2D echocardiogram on September, revealed ejection fraction of 45%. BNP was highly elevated, patient has bilateral leg edema. Reportedly, his diuretics was recently discontinued at [facility] due to acute kidney injury. He is on IV Lasix and Bumex, continue Coreg, Imdur and hydralazine. #3 acute on chronic anemia/iron deficiency anemia: Recently, hemoglobin has been declining. His baseline hemoglobin around 11-12 g/dL. Patient reported black stool, melena. He had upper EGD at [facility] that revealed multiple gastric ulcers and small duodenal ulcer. Started on PPI. Plan to transfuse 1 unit of packed RBCs, repeat CBC tomorrow morning. #4 other chronic medical problems: Stable, continue current medications as above. This note was generated with [employer] dictation software. It may contain incorrect words, spelling, and punctuation that were not noted in checking the note before signing. Code Visit Inpatient E&M: 49170 Subs Hosp L3
[2018-10-28 16:11] LABS: Bedside Glucose 195 mg/dL (70-110)
[2018-10-28] MEDS: proMETHazine 25 MG/ML Syringe 6.25 MG IV (18:43)
[2018-10-28] MEDS: Atorvastatin Calcium 80 MG Tablet PO (21:43)
[2018-10-28 22:13] LABS: Bedside Glucose 191 mg/dL (70-110)
[2018-10-29] VITALS (20 sets, daily range): BP systolic 115–136; BP diastolic 60–75; PULSE 58–69; RESP 15–20; TEMP 36.7–37.3; O2SAT 92–94
[2018-10-29] MEDS: Morphine 4 MG/ML Syringe IV ×6 (00:43→18:30)
[2018-10-29] MEDS: 0.9% NaCl VAD Flush 10 ML IV ×9 (00:44→21:50)
[2018-10-29 05:00] LABS: Hematocrit 28.6 % (40-54); Hemoglobin 8.9 g/dl (13.0-16.5); Mean Corp Hgb Conc 31.1 g/gl (32-36); Mean Corpuscular Hgb 29.3 pg (27.0-32.0); Mean Corpuscular Volume 94.1 fL (80-94); Mean Platelet Vol. 9.6 fl (6.2-12.0); Platelet Count 174 K/mm3 (150-450); RBC Distribution Width CV 17.4 % (11.6-14.6); RBC Distribution Width SD 59.2 fl (35.1-43.9); Red Blood Count 3.04 M/mm3 (4.6-6.2); White Blood Count 9.1 K/mm3 (4.4-11.0)
[2018-10-29 05:01] LABS: Scan Indicated on CBC? Y/N NO
[2018-10-29 05:17] LABS: Anion Gap 7 (5-15); BUN 38 mg/dL (7-18); BUN/Creat Ratio 21.6 RATIO (10-20); Chloride 100 mmol/L (98-107); Creatinine, Serum 1.76 mg/dL (0.70-1.30); EST Glomerular Filtration Rate 42 mL/min (>60); Est Glom Filt Rate - Afr Amer 51 mL/min (>60); Estimated Creatinine Clearance 43.52 ml/min; Glucose 165 mg/dL (74-106); Potassium 3.8 mmol/L (3.5-5.1); Sodium Level 137 mmol/L (136-145)
[2018-10-29] MEDS: Gabapentin 600 MG Tablet PO ×3 (05:39→21:47)
[2018-10-29] MEDS: hydrALAZINE 25 MG Tablet PO ×3 (05:39→21:47)
[2018-10-29] MEDS: Tamsulosin HCl 0.4 MG Capsule PO (06:43)
[2018-10-29 06:56] LABS: Bedside Glucose 130 mg/dL (70-110)
[2018-10-29] MEDS: Carvedilol 25 MG Tablet PO ×2 (08:36→21:47)
[2018-10-29] MEDS: Aspirin E.C. 325 MG Tablet PO (08:36)
[2018-10-29] MEDS: Enoxaparin 40 MG/0.4 ML Syringe SC (08:36)
[2018-10-29] MEDS: amLODIPine 10 MG Tablet PO (08:36)
[2018-10-29] MEDS: Isosorbide Mononitrate 30 MG Tablet PO ×2 (08:36→21:47)
[2018-10-29] MEDS: Sertraline 100 MG Tablet PO (08:36)
[2018-10-29] MEDS: Ferrous Sulfate 325 MG Tablet PO (08:36)
[2018-10-29] MEDS: DULoxetine Hcl 30 MG Capsule PO (08:36)
[2018-10-29] MEDS: Furosemide 40 MG/4 ML Vial IV ×2 (08:36→18:31)
[2018-10-29] MEDS: Bumetanide 2 MG Tablet PO (08:36)
[2018-10-29] MEDS: Insulin Lispro 100 UNIT/ML INSULN.PEN SQ (11:01)
[2018-10-29 11:11] LABS: Bedside Glucose 172 mg/dL (70-110)
--- NOTE | 2018-10-29 12:01 | CASEMGMT ---
Readmission chart review: Pt was initially admitted 10/13/18 for right heel infection and ultimately ended up being transferred for AYE. See assessment completed by John SOTO CM on 10/15/18. During this visit, pt was initially going to have HHC set up and then be discharged to SNF but he was transferred. Pt returned this visit for chest pain. This RN CM to room to speak with pt regarding possible HHC vs SNF. Pt states that at this time, he would like to go home and is unsure if he will even need HHC at that time. Advised pt that CM will follow PT/OT and will check back with him regarding HHC need at discharge, pt voices understanding. Pt voices no further questions/concerns/needs at this time. Anusha SOTO CM
--- NOTE | 2018-10-29 13:06 | PCM.PROGNOTE ---
<Jessa Castaneda - Last Filed: 10/29/18 14:18> Patient Problems: Active and Suspected Problems Chest pain (Acute) Shortness of breath (Acute) Abnormal cardiac enzyme level (Acute) Anemia (Acute) Subjective: Patient seen and examined. Continues to have intermittent chest pain although he states this is improved. Complains of generalized swelling. No other complaints. - Physical Exam General: Alert, Oriented x3, Cooperative, No apparent distress HEENT: Atraumatic, PERRLA, EOMI, Normocephalic Oral: Moist Mucosa Neck: Supple, No JVD, Negative Carotid Bruits Lungs: Clear to auscultation, Diminished Cardiovascular: Regular rate, Regular Rhythm, Normal S1, Normal S2, No murmurs Abdomen: Bowel Sounds Present, Soft, Non Tender, Non-Distended, Obese Extremities: No clubbing, No cyanosis, Edema - Bilateral lower extremity edema, nonpitting Skin: No rashes, No breakdown Musculoskeletal: No Tenderness to Palpation of Joints or Extremities Neurological: Cranial nerves II-XII grossly intact, Neuro grossly intact Psych/Mental Status: Normal Affect, Appropriate Vital Signs Temp Pulse Resp BP Pulse Ox 98.7 F 64 18 123/60 H 94 10/29/18 08:34 10/29/18 11:22 10/29/18 08:34 10/29/18 08:34 10/29/18 08:34 Oxygen Flow Rate (L/min) 2.5 Oxygen Delivery Method Nasal Cannula Weight: 248 lb 10.903 oz Body Mass Index (BMI) 36.7 Finger Stick Blood Glucose 42 Intake and Output for Last 24 Hours 10/27/18 10/28/18 10/29/18 23:59 23:59 23:59 Intake Total 2116 / 2116 1450 / 1450 Output Total 600 / 600 375 / 375 Balance 1516 / 1516 1075 / 1075 Laboratory Tests Past 24 Hrs 10/28/18 10/29/18 10/29/18 10:55 04:44 04:44 WBC 9.1 RBC 3.04 L Hgb 8.9 L Hct 28.6 L MCV 94.1 H MCH 29.3 MCHC 31.1 L RDW 17.4 H RDW Differential 59.2 H Plt Count 174 MPV 9.6 Sodium 137 Potassium 3.8 Chloride 100 Carbon Dioxide 30.0 Anion Gap 7 BUN 38 H Creatinine 1.76 H Estim Creat Clear Calc 43.52 Est GFR (MDRD) Af Amer 51 L Est GFR (MDRD) Non-Af 42 L BUN/Creatinine Ratio 21.6 H Glucose 165 H Calcium 8.0 L Blood Type A POSITIVE Antibody Screen NEGATIVE Crossmatch See Detail POC Glucose 10/29/18 10/29/18 10/28/18 11:00 06:47 21:33 POC Glucose 172 H 130 H 191 H 10/28/18 16:00 POC Glucose 195 H Medical Necessity - Tobacco Use Smoking Status: Never smoker Assessment/Plan All Active Problems Chest pain (Acute) Shortness of breath (Acute) Abnormal cardiac enzyme level (Acute) Anemia (Acute) 1. Chest pain/indeterminate troponin with history of CAD status post CABG/PTCA (PARK to LAD, 2004)-cardiology following. Patient was to undergo stress test which was canceled due to anemia. Continue medical management including aspirin, statin, carvedilol, Imdur. Further cardiac evaluation per cardiology recommendations. Patient had normal stress test May 2018 at [facility]. 2. Acute on chronic systolic CHF/Ischemic cardiomyopathy status post AICD in 2014-recent echo September 2018 with EF 45%. BNP elevated on admission 1640. Lower extremity edema. CXR clear. Diuretic regimen recently discontinued at [facility] due to acute renal failure. Cardiology following. Continue IV Lasix. Discontinue home Bumex regimen. Strict I&O. Daily weight. 1500 fluid restriction. 3. Acute on Chronic normochromic normocytic anemia/iron deficiency anemia-patient underwent EGD 10/23/2018 due to anemia with stool guaiac positive at [facility]. EGD findings showed normal esophagus, multiple gastric ulcers and small duodenal ulcer. Biopsy showed mild reactive gastropathy. Negative for H. pylori. Continue PPI. Complete iron studies, b12, folate. Patient appears to already be on iron supplementation however no history of iron studies per labs. Status post 1 unit PRBC per cardiology request. Additional 1 unit PRBC today. Trend CBC. 4. Acute kidney injury-secondary to diuretic regimen. Bumex discontinued. Continue IV Lasix. Trend BMP. 5. Urinary retention-patient was straight cathed this morning with 525 cc. Started on flomax. Repeat bladder scan, place bledsoe if bladder scan greater than 400cc. 6. Hypertension-stable, continue home carvedilol, hydralazine, isosorbide. 7. Hyperlipidemia-continue statin. 8. Type 2 diabetes [id number] AC at bedtime with sliding scale insulin. Continue Lantus regimen. 9. Anxiety/depression-continue home sertraline, duloxetine regimen. 10. History of CVA-continue aspirin, statin. 11. LISSA-continue CPAP regimen. 12. Chronic back pain-continue gabapentin, Zanaflex regimen. DVT prophylaxis-Lovenox subcu This patient was seen by JUANIS Butt under the supervision of Dr. Ramirez. <Nikia Ramirez E - Last Filed: 10/29/18 14:30> - Physical Exam Vital Signs Temp Pulse Resp BP Pulse Ox 98.7 F 67 16 129/65 H 92 10/29/18 13:17 10/29/18 13:22 10/29/18 13:17 10/29/18 13:22 10/29/18 13:17 Oxygen Flow Rate (L/min) 2.5 Oxygen Delivery Method Nasal Cannula Weight: 248 lb 10.903 oz Body Mass Index (BMI) 36.7 Finger Stick Blood Glucose 42 Intake and Output for Last 24 Hours 10/27/18 10/28/18 10/29/18 23:59 23:59 23:59 Intake Total 2116 / 2116 1450 / 1450 Output Total 600 / 600 475 / 475 Balance 1516 / 1516 975 / 975 Laboratory Tests Past 24 Hrs 10/28/18 10/29/18 10/29/18 10:55 04:44 04:44 WBC 9.1 RBC 3.04 L Hgb 8.9 L Hct 28.6 L MCV 94.1 H MCH 29.3 MCHC 31.1 L RDW 17.4 H RDW Differential 59.2 H Plt Count 174 MPV 9.6 Sodium 137 Potassium 3.8 Chloride 100 Carbon Dioxide 30.0 Anion Gap 7 BUN 38 H Creatinine 1.76 H Estim Creat Clear Calc 43.52 Est GFR (MDRD) Af Amer 51 L Est GFR (MDRD) Non-Af 42 L BUN/Creatinine Ratio 21.6 H Glucose 165 H Calcium 8.0 L Iron TIBC Iron Saturation Ferritin Vitamin B12 RBC Folate Hemolysate RBC Folate Hematocrit Blood Type A POSITIVE Antibody Screen NEGATIVE Crossmatch See Detail 10/29/18 10/29/18 10/29/18 04:44 04:44 04:44 WBC RBC Hgb Hct MCV MCH MCHC RDW RDW Differential Plt Count MPV Sodium Potassium Chloride Carbon Dioxide Anion Gap BUN Creatinine Estim Creat Clear Calc Est GFR (MDRD) Af Amer Est GFR (MDRD) Non-Af BUN/Creatinine Ratio Glucose Calcium Iron 51 L TIBC 270 Iron Saturation 18.9 Ferritin 402 H Vitamin B12 717 RBC Folate Hemolysate Pending RBC Folate Pending Hematocrit Pending Blood Type Antibody Screen Crossmatch POC Glucose 10/29/18 10/29/18 10/28/18 11:00 06:47 21:33 POC Glucose 172 H 130 H 191 H 10/28/18 16:00 POC Glucose 195 H Assessment/Plan Hospitalist note: I am seeing this patient in conjunction with Jessa Castaneda. I independently seen and examined the patient. Progress note above, laboratory data and I agree with the above treatment and workup plan. Patient still complaining of intermittent chest pain, minimal shortness of breath. He is still requiring oxygen 2.5 L, other vital signs are stable. - Physical Exam General: Alert, Oriented x3, Cooperative, No apparent distress. HEENT: Atraumatic, PERRLA, EOMI. Neck: Supple, No JVD, Negative Carotid Bruits, Trachea Midline, Thyroid Normal. Lungs: Decreased breath sounds bilateral more at the bases with faint crackles, scattered rhonchi, no wheezes. Cardiovascular: Regular rate, Regular Rhythm, Normal S1, Normal S2, PMI Normal. Abdomen: Bowel Sounds Present, Soft, Non Tender, Non-Distended, No Hepato-splenomegaly. Extremities: No clubbing, No cyanosis, + edema Skin: No rashes, No breakdown Neurological: Neuro grossly intact Assessment and plan: #1 chest pain/indeterminate troponin: In context of history of CAD status post CABG and PTCA. Patient still having intermittent chest pain. Troponin are borderline elevated and trended down. He is on aspirin, statins, Coreg, Lasix, Bumex and Imdur. Cardiology on the case, awaiting their recommendations. #2 acute on chronic systolic CHF/ischemic cardiomyopathy, status post ICD. Most recent 2D echocardiogram on September, revealed ejection fraction of 45%. BNP was highly elevated, patient has bilateral leg edema. Today's creatinine is 1.76, started to go up. Reportedly, his diuretics was recently discontinued at [facility] due to acute kidney injury. He is on IV Lasix and Bumex, continue Coreg, Imdur and hydralazine. #3 acute on chronic anemia/iron deficiency anemia: Recently, hemoglobin has been declining. His baseline hemoglobin around 11-12 g/dL. Patient reported black stool, melena. He had upper EGD at [facility] that revealed multiple gastric ulcers and small duodenal ulcer. Started on PPI. He received 1 unit of packed RBCs, today's hemoglobin is 8.9 g/dL. #4 acute kidney injury: Likely due to Lasix and Bumex. Bumex discontinued, continue IV Lasix. Repeat BMP tomorrow morning. #5 other chronic medical problems: Stable, continue current medications as above. This note was generated with [employer] dictation software. It may contain incorrect words, spelling, and punctuation that were not noted in checking the note before signing. Code Visit Inpatient E&M: 56904 Subs Hosp L2
--- NOTE | 2018-10-29 13:12 | PN_ITS ---
<Jessa Castaneda - Last Filed: 10/29/18 14:18> Patient Problems: Active and Suspected Problems Chest pain (Acute) Shortness of breath (Acute) Abnormal cardiac enzyme level (Acute) Anemia (Acute) Subjective: Patient seen and examined. Continues to have intermittent chest pain although he states this is improved. Complains of generalized swelling. No other complaints. - Physical Exam General: Alert, Oriented x3, Cooperative, No apparent distress HEENT: Atraumatic, PERRLA, EOMI, Normocephalic Oral: Moist Mucosa Neck: Supple, No JVD, Negative Carotid Bruits Lungs: Clear to auscultation, Diminished Cardiovascular: Regular rate, Regular Rhythm, Normal S1, Normal S2, No murmurs Abdomen: Bowel Sounds Present, Soft, Non Tender, Non-Distended, Obese Extremities: No clubbing, No cyanosis, Edema - Bilateral lower extremity edema, nonpitting Skin: No rashes, No breakdown Musculoskeletal: No Tenderness to Palpation of Joints or Extremities Neurological: Cranial nerves II-XII grossly intact, Neuro grossly intact Psych/Mental Status: Normal Affect, Appropriate Vital Signs Temp Pulse Resp BP Pulse Ox 98.7 F 64 18 123/60 H 94 10/29/18 08:34 10/29/18 11:22 10/29/18 08:34 10/29/18 08:34 10/29/18 08:34 Oxygen Flow Rate (L/min) 2.5 Oxygen Delivery Method Nasal Cannula Weight: 248 lb 10.903 oz Body Mass Index (BMI) 36.7 Finger Stick Blood Glucose 42 Intake and Output for Last 24 Hours 10/27/18 10/28/18 10/29/18 23:59 23:59 23:59 Intake Total 2116 / 2116 1450 / 1450 Output Total 600 / 600 375 / 375 Balance 1516 / 1516 1075 / 1075 Laboratory Tests Past 24 Hrs 10/28/18 10/29/18 10/29/18 10:55 04:44 04:44 WBC 9.1 RBC 3.04 L Hgb 8.9 L Hct 28.6 L MCV 94.1 H MCH 29.3 MCHC 31.1 L RDW 17.4 H RDW Differential 59.2 H Plt Count 174 MPV 9.6 Sodium 137 Potassium 3.8 Chloride 100 Carbon Dioxide 30.0 Anion Gap 7 BUN 38 H Creatinine 1.76 H Estim Creat Clear Calc 43.52 Est GFR (MDRD) Af Amer 51 L Est GFR (MDRD) Non-Af 42 L BUN/Creatinine Ratio 21.6 H Glucose 165 H Calcium 8.0 L Blood Type A POSITIVE Antibody Screen NEGATIVE Crossmatch See Detail POC Glucose 10/29/18 10/29/18 10/28/18 11:00 06:47 21:33 POC Glucose 172 H 130 H 191 H 10/28/18 16:00 POC Glucose 195 H Medical Necessity - Tobacco Use Smoking Status: Never smoker Assessment/Plan All Active Problems Chest pain (Acute) Shortness of breath (Acute) Abnormal cardiac enzyme level (Acute) Anemia (Acute) 1. Chest pain/indeterminate troponin with history of CAD status post CABG/PTCA (PARK to LAD, 2004)-cardiology following. Patient was to undergo stress test which was canceled due to anemia. Continue medical management including aspirin, statin, carvedilol, Imdur. Further cardiac evaluation per cardiology recommendations. Patient had normal stress test May 2018 at [facility]. 2. Acute on chronic systolic CHF/Ischemic cardiomyopathy status post AICD in 2014-recent echo September 2018 with EF 45%. BNP elevated on admission 1640. Lower extremity edema. CXR clear. Diuretic regimen recently discontinued at [facility] due to acute renal failure. Cardiology following. Continue IV Lasix. Discontinue home Bumex regimen. Strict I&O. Daily weight. 1500 fluid restriction. 3. Acute on Chronic normochromic normocytic anemia/iron deficiency anemia- patient underwent EGD 10/23/2018 due to anemia with stool guaiac positive at [facility]. EGD findings showed normal esophagus, multiple gastric ulcers and small duodenal ulcer. Biopsy showed mild reactive gastropathy. Negative for H. pylori. Continue PPI. Complete iron studies, b12, folate. Patient appears to already be on iron supplementation however no history of iron studies per labs. Status post 1 unit PRBC per cardiology request. Additional 1 unit PRBC today. Trend CBC. 4. Acute kidney injury-secondary to diuretic regimen. Bumex discontinued. Continue IV Lasix. Trend BMP. 5. Urinary retention-patient was straight cathed this morning with 525 cc. Started on flomax. Repeat bladder scan, place bledsoe if bladder scan greater than 400cc. 6. Hypertension-stable, continue home carvedilol, hydralazine, isosorbide. 7. Hyperlipidemia-continue statin. 8. Type 2 diabetes [id number] AC at bedtime with sliding scale insulin. Continue Lantus regimen. 9. Anxiety/depression-continue home sertraline, duloxetine regimen. 10. History of CVA-continue aspirin, statin. 11. LISSA-continue CPAP regimen. 12. Chronic back pain-continue gabapentin, Zanaflex regimen. DVT prophylaxis-Lovenox subcu This patient was seen by JUANIS Butt under the supervision of Dr. Ramirez. <Nikia Ramirez E - Last Filed: 10/29/18 14:30> - Physical Exam Vital Signs Temp Pulse Resp BP Pulse Ox 98.7 F 67 16 129/65 H 92 10/29/18 13:17 10/29/18 13:22 10/29/18 13:17 10/29/18 13:22 10/29/18 13:17 Oxygen Flow Rate (L/min) 2.5 Oxygen Delivery Method Nasal Cannula Weight: 248 lb 10.903 oz Body Mass Index (BMI) 36.7 Finger Stick Blood Glucose 42 Intake and Output for Last 24 Hours 10/27/18 10/28/18 10/29/18 23:59 23:59 23:59 Intake Total 2116 / 2116 1450 / 1450 Output Total 600 / 600 475 / 475 Balance 1516 / 1516 975 / 975 Laboratory Tests Past 24 Hrs 10/28/18 10/29/18 10/29/18 10:55 04:44 04:44 WBC 9.1 RBC 3.04 L Hgb 8.9 L Hct 28.6 L MCV 94.1 H MCH 29.3 MCHC 31.1 L RDW 17.4 H RDW Differential 59.2 H Plt Count 174 MPV 9.6 Sodium 137 Potassium 3.8 Chloride 100 Carbon Dioxide 30.0 Anion Gap 7 BUN 38 H Creatinine 1.76 H Estim Creat Clear Calc 43.52 Est GFR (MDRD) Af Amer 51 L Est GFR (MDRD) Non-Af 42 L BUN/Creatinine Ratio 21.6 H Glucose 165 H Calcium 8.0 L Iron TIBC Iron Saturation Ferritin Vitamin B12 RBC Folate Hemolysate RBC Folate Hematocrit Blood Type A POSITIVE Antibody Screen NEGATIVE Crossmatch See Detail 10/29/18 10/29/18 10/29/18 04:44 04:44 04:44 WBC RBC Hgb Hct MCV MCH MCHC RDW RDW Differential Plt Count MPV Sodium Potassium Chloride Carbon Dioxide Anion Gap BUN Creatinine Estim Creat Clear Calc Est GFR (MDRD) Af Amer Est GFR (MDRD) Non-Af BUN/Creatinine Ratio Glucose Calcium Iron 51 L TIBC 270 Iron Saturation 18.9 Ferritin 402 H Vitamin B12 717 RBC Folate Hemolysate Pending RBC Folate Pending Hematocrit Pending Blood Type Antibody Screen Crossmatch POC Glucose 10/29/18 10/29/18 10/28/18 11:00 06:47 21:33 POC Glucose 172 H 130 H 191 H 10/28/18 16:00 POC Glucose 195 H Assessment/Plan Hospitalist note: I am seeing this patient in conjunction with Jessa Castaneda. I independently seen and examined the patient. Progress note above, laboratory data and I agree with the above treatment and workup plan. Patient still complaining of intermittent chest pain, minimal shortness of breath. He is still requiring oxygen 2.5 L, other vital signs are stable. - Physical Exam General: Alert, Oriented x3, Cooperative, No apparent distress. HEENT: Atraumatic, PERRLA, EOMI. Neck: Supple, No JVD, Negative Carotid Bruits, Trachea Midline, Thyroid Normal. Lungs: Decreased breath sounds bilateral more at the bases with faint crackles, scattered rhonchi, no wheezes. Cardiovascular: Regular rate, Regular Rhythm, Normal S1, Normal S2, PMI Normal. Abdomen: Bowel Sounds Present, Soft, Non Tender, Non-Distended, No Hepato-splenomegaly. Extremities: No clubbing, No cyanosis, + edema Skin: No rashes, No breakdown Neurological: Neuro grossly intact Assessment and plan: #1 chest pain/indeterminate troponin: In context of history of CAD status post CABG and PTCA. Patient still having intermittent chest pain. Troponin are borderline elevated and trended down. He is on aspirin, statins, Coreg, Lasix, Bumex and Imdur. Cardiology on the case, awaiting their recommendations. #2 acute on chronic systolic CHF/ischemic cardiomyopathy, status post ICD. Most recent 2D echocardiogram on September, revealed ejection fraction of 45%. BNP was highly elevated, patient has bilateral leg edema. Today's creatinine is 1.76, started to go up. Reportedly, his diuretics was recently discontinued at [facility] due to acute kidney injury. He is on IV Lasix and Bumex, continue Coreg, Imdur and hydralazine. #3 acute on chronic anemia/iron deficiency anemia: Recently, hemoglobin has been declining. His baseline hemoglobin around 11-12 g/dL. Patient reported black stool, melena. He had upper EGD at [facility] that revealed multiple gastric ulcers and small duodenal ulcer. Started on PPI. He received 1 unit of packed RBCs, today's hemoglobin is 8.9 g/dL. #4 acute kidney injury: Likely due to Lasix and Bumex. Bumex discontinued, continue IV Lasix. Repeat BMP tomorrow morning. #5 other chronic medical problems: Stable, continue current medications as above. This note was generated with [employer] dictation software. It may contain incorrect words, spelling, and punctuation that were not noted in checking the note before signing. Code Visit Inpatient E&M: 10678 Subs Hosp L2
[2018-10-29 13:35] LABS: Ferritin 402 ng/mL (26-388); Iron 51 ug/dL (65-175); Iron Binding Capacity,Total 270 ug/dL (250-450); PERCENT IRON SATURATION 18.9 % (15.0-55.0)
[2018-10-29 13:40] LABS: Vitamin B12 717 pg/mL (211-911)
[2018-10-29 17:11] LABS: Bedside Glucose 105 mg/dL (70-110)
--- NOTE | 2018-10-29 17:37 | PCM.PN.CARD ---
Subjectve: The patient states that overall he may feel somewhat better. He is not complaining of any acute chest discomfort or difficulty breathing. He believes he feels somewhat better since diuretic therapy and PRBCs. Objective: Vital Signs Temp Pulse Resp BP Pulse Ox 98.5 F 64 20 H 134/73 H 93 10/29/18 16:52 10/29/18 16:52 10/29/18 16:52 10/29/18 16:52 10/29/18 16:52 Oxygen Flow Rate (L/min) 2 Oxygen Delivery Method Nasal Cannula Weight: 248 lb 10.903 oz Body Mass Index (BMI) 36.7 Finger Stick Blood Glucose 42 Intake and Output for Last 24 Hours 10/27/18 10/28/18 10/29/18 23:59 23:59 23:59 Intake Total 2116 / 2116 1570 / 1570 Output Total 600 / 600 505 / 505 Balance 1516 / 1516 1065 / 1065 General: Awake, Alert, Oriented x 3, Cooperative, No Acute Distress HEENT: Atraumatic, Normocephalic, PERRL, EOMI, Sclera Non Icteric Oral: Moist Mucosa Neck: Supple, Good ROM, No JVD Lungs: Diminished Mat Bases, - Cardiovascular: Regular Rhythm, Normal S1, Normal S2 Abdomen: Bowel Sounds Present, Soft, Non Tender Extremities: Trace RLE Edema, Trace LLE Edema Psych/Mental Status: Appropriate 10/29/18 04:44: WBC 9.1, RBC 3.04 L, Hgb 8.9 L, Hct 28.6 L, MCV 94.1 H, MCH 29.3, MCHC 31.1 L, RDW 17.4 H, RDW Differential 59.2 H, Plt Count 174, MPV 9.6 10/29/18 04:44: Sodium 137, Potassium 3.8, Chloride 100, Carbon Dioxide 30.0, Anion Gap 7, BUN 38 H, Creatinine 1.76 H, Est GFR (MDRD) Af Amer 51 L, Est GFR (MDRD) Non-Af 42 L, BUN/Creatinine Ratio 21.6 H, Glucose 165 H, Calcium 8.0 L 10/29/18 04:44: Iron 51 L, TIBC 270, Iron Saturation 18.9, Ferritin 402 H Rhythm: ventricular paced rhythm ECHO: 09/09/2018: [facility]: Left ventricle reported with an LVEF of 45-50%; right ventricle with normal size/function; right and left atrium reported as mildly and mild lead to moderately dilated respectively; mild TR; Stress Test: 05/28/2018: [facility]: Pharmacologic stress nuclear imaging study: Report stating negative stress ECG; no significant arrhythmias; myocardial perfusion scan demonstrating an area of prior infarction in the mid to distal anterior and apical regions with an LVEF of 40% with no report of inducible myocardial ischemia Cardiac Cath: 09/27/2017: LAD chronically [id number] restenosis; LCx with 90% stenosis; RCA with moderate to severe ostial PDA 90% lesion; PARK to LAD patent; unable to advance wire past the stenosis and PCI unsuccessful to the PDA Medical Necessity - Tobacco Use Smoking Status: Never smoker Assessment/Plan 1. Chest pain/shortness of breath/nausea The patient has a combination of symptoms. The symptoms may be concerning for underlying cardiovascular disease. However at the same time they may be compatible with his multiple noncardiovascular issues as well. From a cardiac standpoint the patient has been noted to have indeterminate troponin I levels. His ECG is as noted above. His recent echocardiogram is as noted above. His most recent [facility] echocardiogram, stress test, and cardiac catheterization are as described above. He will continue medical management with adjustment of medications as needed for the possibility of underlying cardiovascular involvement with his CAD/ischemic cardiomyopathy process. As part of this, based upon his anemia thought secondary to his recent GI bleed secondary to what he reports to be an the finding of peptic ulcer disease, be reasonable to try and increase his H&H and oxygen carrying capacity with additional PRBCs. He states he received 2 units of PRBCs while at [facility]. However, his H&H remains low. There may be a need for future noninvasive or invasive cardiovascular evaluation. However there may be hesitancy in proceeding in such manner at this time based upon a combination of concerns. These concerns would be in regard to his recent gastrointestinal bleeding process requiring multiple units of PRBCs as well as his recent acute renal insufficiency with continued concern of the possibility of, despite improvement in his renal function, IV contrast related studies producing an episode of acute renal insufficiency, etc. At the present time his medications are being adjusted to monitor his increased creatinine level. His H&H remains low and he is receiving additional PRBCs. 2. CAD status post PCI and CABG The patient does have a history of underlying CAD, PCI, and CABG as previously noted. Again at the present time he will continue medical management. He may eventually need further noninvasive or invasive evaluation. However it may be prudent to attempt medical management in the interim until his overall status has improved. 3. Ischemic mediated cardiomyopathy He has recently undergone evaluation of his left ventricular wall motion and systolic function. He will need to continue medical therapy. He does have an ICD in place. 4. Chronic systolic CHF States while at [facility] his diuretics were discontinued. There is concern based upon his symptoms, lower extremity edema, and his elevated BNP level that he will retain fluid and have concerns of acute on chronic stomach mediated CHF. Thus he may need to be back on diuretic therapy. However his diuretics will have to be adjusted based upon his increasing creatinine levels. 5. ICD The patient does have a single-chamber ICD. It can be reassessed as needed. 6. Hyperlipidemia He will continue lowering therapy as deemed appropriate. 7. Hypertension The patient will need to have his blood pressure monitored. His medications can be adjusted as needed. 8. Diabetes mellitus The patient will continue under the care of internal medicine for this. 9. Carotid artery disease The patient does have peripheral arterial occlusive disease and is status post right carotid endarterectomy. He will continue medical management and follow-up as deemed appropriate. 10. Anemia thought secondary to upper GI bleed secondary to peptic ulcer disease The patient should be considered for additional medical therapy and PRBCs. He states he was told he required a follow-up EGD in approximately 2 months. 11. Renal insufficiency The patient's creatinine level is increasing. His medications are being adjusted. This will have to be taken into consideration with respect to further medical therapy and the possibility of a future repeat diagnostic cardiac catheterization. This note was generated using a voice recognition system and there may be incorrect words, spelling or punctuation that were not noted when reviewing the office note prior to saving.
[2018-10-29] MEDS: proMETHazine 25 MG/ML Syringe 6.25 MG IV (18:31)
[2018-10-29] MEDS: Nystatin Powder 15gm Bottle 1 APPLIC TOPICAL (21:46)
[2018-10-29] MEDS: Atorvastatin Calcium 80 MG Tablet PO (21:47)
[2018-10-29 22:50] LABS: Bedside Glucose 61 mg/dL (70-110)
[2018-10-30] VITALS (14 sets, daily range): BP systolic 116–136; BP diastolic 56–70; PULSE 61–72; RESP 16–18; TEMP 36.3–37.4; O2SAT 93–96
[2018-10-30] MEDS: Morphine 4 MG/ML Syringe IV ×5 (00:55→22:01)
[2018-10-30] MEDS: 0.9% NaCl VAD Flush 10 ML IV ×11 (00:55→04:20)
[2018-10-30 01:21] LABS: Bedside Glucose 67 mg/dL (70-110)
[2018-10-30 01:21] LABS: Bedside Glucose 65 mg/dL (70-110)
[2018-10-30 01:21] LABS: Bedside Glucose 59 mg/dL (70-110)
[2018-10-30] MEDS: Dextrose 50%-Water 25 GM/50 ML DISP.SYRIN IV (01:40)
[2018-10-30] MEDS: proMETHazine 25 MG/ML Syringe 6.25 MG IV (03:03)
[2018-10-30 03:16] LABS: Bedside Glucose 101 mg/dL (70-110)
[2018-10-30 05:32] LABS: Hematocrit 30.4 % (40-54); Hemoglobin 9.5 g/dl (13.0-16.5); Mean Corp Hgb Conc 31.3 g/gl (32-36); Mean Corpuscular Hgb 28.9 pg (27.0-32.0); Mean Corpuscular Volume 92.4 fL (80-94); Mean Platelet Vol. 9.6 fl (6.2-12.0); Platelet Count 192 K/mm3 (150-450); RBC Distribution Width CV 17.8 % (11.6-14.6); RBC Distribution Width SD 60.2 fl (35.1-43.9); Red Blood Count 3.29 M/mm3 (4.6-6.2)
[2018-10-30 05:53] LABS: Scan Indicated on CBC? Y/N NO
[2018-10-30 05:54] LABS: BUN 46 mg/dL (7-18); Creatinine, Serum 2.22 mg/dL (0.70-1.30); EST Glomerular Filtration Rate 32 mL/min (>60); Glucose 88 mg/dL (74-106)
[2018-10-30 05:55] LABS: Anion Gap 12 (5-15); BUN/Creat Ratio 20.7 RATIO (10-20); Calcium,Total 8.2 mg/dL (8.5-10.1); Chloride 100 mmol/L (98-107); Est Glom Filt Rate - Afr Amer 39 mL/min (>60); Potassium 4.2 mmol/L (3.5-5.1); Sodium Level 136 mmol/L (136-145)
[2018-10-30] MEDS: hydrALAZINE 25 MG Tablet PO ×3 (06:09→21:01)
[2018-10-30] MEDS: Gabapentin 600 MG Tablet PO ×3 (06:10→21:00)
[2018-10-30 07:05] LABS: Bedside Glucose 96 mg/dL (70-110)
[2018-10-30] MEDS: Carvedilol 25 MG Tablet PO ×2 (07:57→21:00)
[2018-10-30] MEDS: Sertraline 100 MG Tablet PO (07:57)
[2018-10-30] MEDS: Isosorbide Mononitrate 30 MG Tablet PO ×2 (07:57→21:00)
[2018-10-30] MEDS: DULoxetine Hcl 30 MG Capsule PO (07:57)
[2018-10-30] MEDS: Aspirin E.C. 325 MG Tablet PO (07:57)
[2018-10-30] MEDS: Tamsulosin HCl 0.4 MG Capsule PO (07:57)
[2018-10-30] MEDS: amLODIPine 10 MG Tablet PO (07:57)
[2018-10-30] MEDS: Nystatin Powder 15gm Bottle 1 APPLIC TOPICAL ×2 (07:58→21:00)
[2018-10-30 09:08] LABS: T4 Free Direct 1.17 ng/dL (0.76-1.46)
[2018-10-30] MEDS: hydrOXYzine PAM 25 MG Capsule PO (10:36)
[2018-10-30] MEDS: Heparin Injection (Vial) 5,000 UNIT/ML VIAL 5000 UNIT SC ×2 (11:16→21:00)
[2018-10-30 11:30] LABS: Bedside Glucose 86 mg/dL (70-110)
--- NOTE | 2018-10-30 12:36 | PN_ITS ---
<Antonio Ham - Last Filed: 10/30/18 12:30> Patient Problems: Active and Suspected Problems Chest pain (Acute) Shortness of breath (Acute) Abnormal cardiac enzyme level (Acute) Anemia (Acute) Subjective: Patient complains of ongoing left-sided chest pain. He has no shortness of breath and does not complain of any significant lower extremity edema. He is tolerating the Corea catheter with no discomfort. He does not use at home normally. He has no dizziness, lightheadedness, palpitations, nausea, vomiting, diarrhea. - Physical Exam General: Alert, Oriented x3, Cooperative HEENT: Atraumatic, PERRLA, EOMI, Normocephalic Neck: Supple, No JVD, Negative Carotid Bruits Lungs: Clear to auscultation, Normal air movement Cardiovascular: Regular rate, No murmurs Abdomen: Bowel Sounds Present, Soft, Non Tender Extremities: No edema, Capillary Refill Less than 3 Seconds Skin: No rashes, No breakdown Musculoskeletal: No Tenderness to Palpation of Joints or Extremities Neurological: Cranial nerves II-XII grossly intact Psych/Mental Status: Normal Affect, Appropriate, Alert and oriented to time, place, person, mood and affect Vital Signs Temp Pulse Resp BP Pulse Ox 98.9 F 61 16 130/64 H 95 10/30/18 07:52 10/30/18 10:54 10/30/18 07:52 10/30/18 07:52 10/30/18 07:52 Oxygen Flow Rate (L/min) 3 Oxygen Delivery Method Nasal Cannula Weight: 258 lb 9.636 oz Body Mass Index (BMI) 36.7 Finger Stick Blood Glucose 42 Intake and Output for Last 24 Hours 10/28/18 10/29/18 10/30/18 23:59 23:59 23:59 Intake Total 2116 / 2116 2325 / 2325 946 / 946 Output Total 600 / 600 635 / 635 300 / 300 Balance 1516 / 1516 1690 / 1690 646 / 646 Laboratory Tests Past 24 Hrs 10/28/18 10/28/18 10/29/18 10:55 10:55 04:44 WBC RBC Hgb Hct MCV MCH MCHC RDW RDW Differential Plt Count MPV Sodium Potassium Chloride Carbon Dioxide Anion Gap BUN Creatinine Estim Creat Clear Calc Est GFR (MDRD) Af Amer Est GFR (MDRD) Non-Af BUN/Creatinine Ratio Glucose Calcium Iron 51 L TIBC 270 Iron Saturation 18.9 Ferritin 402 H Vitamin B12 RBC Folate Hemolysate RBC Folate Hematocrit Free T4 Crossmatch See Detail See Detail 10/29/18 10/29/18 10/30/18 04:44 04:44 04:45 WBC 11.0 RBC 3.29 L Hgb 9.5 L Hct 30.4 L MCV 92.4 MCH 28.9 MCHC 31.3 L RDW 17.8 H RDW Differential 60.2 H Plt Count 192 MPV 9.6 Sodium Potassium Chloride Carbon Dioxide Anion Gap BUN Creatinine Estim Creat Clear Calc Est GFR (MDRD) Af Amer Est GFR (MDRD) Non-Af BUN/Creatinine Ratio Glucose Calcium Iron TIBC Iron Saturation Ferritin Vitamin B12 717 RBC Folate Hemolysate Pending RBC Folate Pending Hematocrit Pending Free T4 Crossmatch 10/30/18 10/30/18 04:45 04:45 WBC RBC Hgb Hct MCV MCH MCHC RDW RDW Differential Plt Count MPV Sodium 136 Potassium 4.2 Chloride 100 Carbon Dioxide 24.0 Anion Gap 12 BUN 46 H Creatinine 2.22 H Estim Creat Clear Calc 34.50 Est GFR (MDRD) Af Amer 39 L Est GFR (MDRD) Non-Af 32 L BUN/Creatinine Ratio 20.7 H Glucose 88 Calcium 8.2 L Iron TIBC Iron Saturation Ferritin Vitamin B12 RBC Folate Hemolysate RBC Folate Hematocrit Free T4 1.17 Crossmatch POC Glucose 10/30/18 10/30/18 10/30/18 11:15 06:45 03:01 POC Glucose 86 96 101 10/30/18 10/30/18 10/29/18 01:17 00:18 23:52 POC Glucose 65 L 67 L 59 L 10/29/18 10/29/18 21:40 17:02 POC Glucose 61 L 105 Medical Necessity - Tobacco Use Smoking Status: Never smoker Assessment/Plan All Active Problems Chest pain (Acute) Shortness of breath (Acute) Abnormal cardiac enzyme level (Acute) Anemia (Acute) 1. Chest pain-patient has continued ongoing left-sided chest pain. Troponins were indeterminate but remained flat. Cardiology is following. TSH was elevated however T4 was normal. 2. Acute on chronic systolic congestive heart failure exacerbation complicated by ischemic cardiomyopathy-improved. Patient has AICD. EF 45% on last echo in 2018. With worsening renal function will discontinue Lasix at this point he has no shortness of breath or lower extremity edema. Admission his BNP was 1581, however his chest x-ray was negative. 3. AYE -hold Lasix until cardiology evaluates patient. 4. Urinary retention-started on Flomax, maintain Corea catheter. Will attempt voiding trial prior to discharge, however he may need to go with one and have urology follow-up as an outpatient as this could also lead to further CHF exacerbations. 5. Hypertension-stable 6. Hyperlipidemia-statin 7. Type 2 diabetes mellitus with obesity-continue sliding scale insulin, lantus held for hypoglycemia 8. Anxiety depression-continue home meds 9. History of CVA-aspirin and statin 10. Obstructive sleep apnea-CPAP at night 11. Chronic back pain-continue gabapentin and Zanaflex. 12. CAD - prior stents, CABG - on statin, asa, coreg, hydralazine, imdur, no SHEEBA/ARB 2/2 poor renal function. DVT prophylaxis-change to Lovenox DC planning-pending further cardiac workup. This patient was seen by Antonio Ham PA-C under the supervision of Doctor Ashley . <Nikia Ramirez E - Last Filed: 10/30/18 12:52> - Physical Exam Vital Signs Temp Pulse Resp BP Pulse Ox 98.9 F 61 16 130/64 H 95 10/30/18 07:52 10/30/18 10:54 10/30/18 07:52 10/30/18 07:52 10/30/18 07:52 Oxygen Flow Rate (L/min) 3 Oxygen Delivery Method Nasal Cannula Weight: 258 lb 9.636 oz Body Mass Index (BMI) 36.7 Finger Stick Blood Glucose 42 Intake and Output for Last 24 Hours 10/28/18 10/29/18 10/30/18 23:59 23:59 23:59 Intake Total 2116 / 2116 2325 / 2325 946 / 946 Output Total 600 / 600 635 / 635 300 / 300 Balance 1516 / 1516 1690 / 1690 646 / 646 Laboratory Tests Past 24 Hrs 10/28/18 10/28/18 10/29/18 10:55 10:55 04:44 WBC RBC Hgb Hct MCV MCH MCHC RDW RDW Differential Plt Count MPV Sodium Potassium Chloride Carbon Dioxide Anion Gap BUN Creatinine Estim Creat Clear Calc Est GFR (MDRD) Af Amer Est GFR (MDRD) Non-Af BUN/Creatinine Ratio Glucose Calcium Iron 51 L TIBC 270 Iron Saturation 18.9 Ferritin 402 H Vitamin B12 RBC Folate Hemolysate RBC Folate Hematocrit Free T4 Crossmatch See Detail See Detail 10/29/18 10/29/18 10/30/18 04:44 04:44 04:45 WBC 11.0 RBC 3.29 L Hgb 9.5 L Hct 30.4 L MCV 92.4 MCH 28.9 MCHC 31.3 L RDW 17.8 H RDW Differential 60.2 H Plt Count 192 MPV 9.6 Sodium Potassium Chloride Carbon Dioxide Anion Gap BUN Creatinine Estim Creat Clear Calc Est GFR (MDRD) Af Amer Est GFR (MDRD) Non-Af BUN/Creatinine Ratio Glucose Calcium Iron TIBC Iron Saturation Ferritin Vitamin B12 717 RBC Folate Hemolysate Pending RBC Folate Pending Hematocrit Pending Free T4 Crossmatch 10/30/18 10/30/18 04:45 04:45 WBC RBC Hgb Hct MCV MCH MCHC RDW RDW Differential Plt Count MPV Sodium 136 Potassium 4.2 Chloride 100 Carbon Dioxide 24.0 Anion Gap 12 BUN 46 H Creatinine 2.22 H Estim Creat Clear Calc 34.50 Est GFR (MDRD) Af Amer 39 L Est GFR (MDRD) Non-Af 32 L BUN/Creatinine Ratio 20.7 H Glucose 88 Calcium 8.2 L Iron TIBC Iron Saturation Ferritin Vitamin B12 RBC Folate Hemolysate RBC Folate Hematocrit Free T4 1.17 Crossmatch POC Glucose 10/30/18 10/30/18 10/30/18 11:15 06:45 03:01 POC Glucose 86 96 101 10/30/18 10/30/18 10/29/18 01:17 00:18 23:52 POC Glucose 65 L 67 L 59 L 10/29/18 10/29/18 21:40 17:02 POC Glucose 61 L 105 Assessment/Plan Hospitalist note: I am seeing this patient in conjunction with Antonio Ham. I independently seen and examined the patient. Progress note above, laboratory data and I agree with the above treatment and workup plan. Today, patient complained again of intermittent chest pain and discomfort but better than yesterday. Denies shortness of breath. His vital signs are stable, pulse ox maintained at 95% on 2 L. - Physical Exam General: Alert, Oriented x3, Cooperative, No apparent distress. HEENT: Atraumatic, PERRLA, EOMI. Neck: Supple, No JVD, Negative Carotid Bruits, Trachea Midline, Thyroid Normal. Lungs: Decreased breath sounds bilateral more at the bases, scattered rhonchi, no wheezes. Cardiovascular: Regular rate, Regular Rhythm, Normal S1, Normal S2, PMI Normal. Abdomen: Bowel Sounds Present, Soft, Non Tender, Non-Distended, No Hepato- splenomegaly. Extremities: No clubbing, No cyanosis, + edema Skin: No rashes, No breakdown Neurological: Neuro grossly intact Assessment and plan: #1 chest pain/indeterminate troponin: Still symptomatic, intermittent chest pain. He had of history of CAD status post CABG and PTCA. Troponin are borderline elevated and trended down. He is on aspirin, statins, Coreg, Lasix, Bumex and Imdur. Cardiology on the case, planning for cardiac catheterization but this will be postponed because of worsening kidney function. #2 acute on chronic systolic CHF/ischemic cardiomyopathy, status post ICD. He is on IV Lasix, creatinine is worsening. Patient reported improvement of his shortness of breath, remained stable on 2 L. Most recent 2D echocardiogram on September, revealed ejection fraction of 45%. He is on IV Lasix and Bumex, continue Coreg, Imdur and hydralazine. Plan as above. #3 acute on chronic anemia/iron deficiency anemia: Recently, hemoglobin has been declining. His baseline hemoglobin around 11-12 g/dL. Patient reported black stool, melena. He had upper EGD at [facility] that revealed multiple gastric ulcers and small duodenal ulcer. Started on PPI. He received 1 unit of packed RBCs, today's hemoglobin is 8.9 g/dL. #4 acute kidney injury: Likely due to Lasix and Bumex. Kidney function continued to worsen. Plan to hold Lasix for now. #5 other chronic medical problems: Stable, continue current medications as above. This note was generated with [employer] software. It may contain incorrect words, spelling, and punctuation that were not noted in checking the note before signing. Code Visit Inpatient E&M: 48722 Subs Hosp L2
[2018-10-30 14:34] LABS: Folate, Hemolysate Test 378.3 ng/mL (Not Estab.); Folate, RBC (Hct) Test 26.3 % (37.5-51.0)
[2018-10-30 15:27] LABS: Folates, RBC Test 1438 ng/mL (>498)
[2018-10-30 16:10] LABS: Bedside Glucose 134 mg/dL (70-110)
--- NOTE | 2018-10-30 19:08 | PCM.PN.CARD ---
Subjectve: The patient appears to be resting comfortably at this time with no acute symptoms. Objective: Vital Signs Temp Pulse Resp BP Pulse Ox 97.4 F L 63 18 116/56 L 96 10/30/18 14:51 10/30/18 14:59 10/30/18 14:51 10/30/18 14:54 10/30/18 14:51 Oxygen Flow Rate (L/min) 3 Oxygen Delivery Method CPAP Weight: 258 lb 9.636 oz Body Mass Index (BMI) 36.7 Finger Stick Blood Glucose 42 Intake and Output for Last 24 Hours 10/28/18 10/29/18 10/30/18 23:59 23:59 23:59 Intake Total 2116 / 2116 2325 / 2325 1146 / 1146 Output Total 600 / 600 635 / 635 450 / 450 Balance 1516 / 1516 1690 / 1690 696 / 696 General: Awake, Alert, Oriented x 3, Cooperative, No Acute Distress HEENT: Atraumatic, Normocephalic, PERRL, EOMI Oral: Moist Mucosa Neck: Supple, Good ROM, No JVD Lungs: Clear to auscultation Cardiovascular: Regular Rhythm, Normal S1, Normal S2 Abdomen: Bowel Sounds Present, Soft, Non Tender Extremities: Trace RLE Edema, Trace LLE Edema Psych/Mental Status: Appropriate 10/30/18 04:45: WBC 11.0, RBC 3.29 L, Hgb 9.5 L, Hct 30.4 L, MCV 92.4, MCH 28.9, MCHC 31.3 L, RDW 17.8 H, RDW Differential 60.2 H, Plt Count 192, MPV 9.6 10/30/18 04:45: Sodium 136, Potassium 4.2, Chloride 100, Carbon Dioxide 24.0, Anion Gap 12, BUN 46 H, Creatinine 2.22 H, Est GFR (MDRD) Af Amer 39 L, Est GFR (MDRD) Non-Af 32 L, BUN/Creatinine Ratio 20.7 H, Glucose 88, Calcium 8.2 L Rhythm: Electronic ventricular paced rhythm Medical Necessity - Tobacco Use Smoking Status: Never smoker Assessment/Plan 1. Chest pain/shortness of breath/nausea The patient has a combination of symptoms. The symptoms may be concerning for underlying cardiovascular disease. However at the same time they may be compatible with his multiple noncardiovascular issues as well. From a cardiac standpoint the patient has been noted to have indeterminate troponin I levels. His ECG is as noted above. His recent echocardiogram is as noted above. He will continue medical management with adjustment of medications as needed for the possibility of underlying cardiovascular involvement with his CAD/ischemic cardiomyopathy process. As part of this, based upon his anemia thought secondary to his recent GI bleed secondary to what he reports to be an the finding of peptic ulcer disease, be reasonable to try and increase his H&H and oxygen carrying capacity with additional PRBCs. He states he received 2 units of PRBCs while at [facility]. However, his H&H remains low. There may be a need for future noninvasive or invasive cardiovascular evaluation. However there may be hesitancy in proceeding in such manner at this time based upon a combination of concerns. These concerns would be in regard to his recent gastrointestinal bleeding process requiring multiple units of PRBCs as well as his recent acute renal insufficiency with continued concern of the possibility of, despite improvement in his renal function, IV contrast related studies producing an episode of acute renal insufficiency, etc. 2. CAD status post PCI and CABG The patient does have a history of underlying CAD, PCI, and CABG as previously noted. Again at the present time he will continue medical management. He may eventually need further noninvasive or invasive evaluation. However it may be prudent to attempt medical management in the interim until his overall status has improved. 3. Ischemic mediated cardiomyopathy He has recently undergone evaluation of his left ventricular wall motion and systolic function. He will need to continue medical therapy. He does have an ICD in place. 4. Chronic systolic CHF He states while at [facility] his diuretics were discontinued. Headaches at [facility]. He did appear to be somewhat symptomatically improved. However his creatinine level is increasing. Thus at the present time it appears prudent to decrease and/or temporarily hold his diuretic therapy and follow his clinical status and his creatinine level. 5. ICD The patient does have a single-chamber ICD. It can be reassessed as needed. 6. Hyperlipidemia He will continue lowering therapy as deemed appropriate. 7. Hypertension The patient will need to have his blood pressure monitored. His medications can be adjusted as needed. 8. Diabetes mellitus The patient will continue under the care of internal medicine for this. 9. Carotid artery disease The patient does have peripheral arterial occlusive disease and is status post right carotid endarterectomy. He will continue medical management and follow-up as deemed appropriate. 10. Anemia thought secondary to upper GI bleed secondary to peptic ulcer disease His H&H does appear to be improved status post his 2 units of PRBCs. 11. Renal insufficiency The patient's creatinine level is increasing. His medications are being adjusted. This includes decreasing and/or temporarily holding his IV diuretics. This will have to be taken into consideration with respect to further medical therapy and the possibility of a future repeat diagnostic cardiac catheterization. This note was generated using a voice recognition system and there may be incorrect words, spelling or punctuation that were not noted when reviewing the office note prior to saving.
[2018-10-30] MEDS: Atorvastatin Calcium 80 MG Tablet PO (21:00)
[2018-10-30 22:56] LABS: Bedside Glucose 143 mg/dL (70-110)
[2018-10-31] VITALS (14 sets, daily range): BP systolic 112–140; BP diastolic 55–78; PULSE 60–69; RESP 18–20; TEMP 36.8–37.1; O2SAT 86–97
[2018-10-31 02:20] LABS: Bedside Glucose 111 mg/dL (70-110)
[2018-10-31] MEDS: Morphine 4 MG/ML Syringe IV ×3 (04:15→16:27)
[2018-10-31 04:31] LABS: Anion Gap 8 (5-15); BUN 52 mg/dL (7-18); Chloride 99 mmol/L (98-107); Creatinine, Serum 2.36 mg/dL (0.70-1.30); EST Glomerular Filtration Rate 30 mL/min (>60); Est Glom Filt Rate - Afr Amer 36 mL/min (>60); Estimated Creatinine Clearance 32.45 ml/min; Glucose 111 mg/dL (74-106); Potassium 4.4 mmol/L (3.5-5.1); Sodium Level 135 mmol/L (136-145)
[2018-10-31] MEDS: hydrALAZINE 25 MG Tablet PO ×3 (05:00→21:31)
[2018-10-31] MEDS: Gabapentin 600 MG Tablet PO ×3 (05:00→21:29)
[2018-10-31] MEDS: proMETHazine 25 MG/ML Syringe 6.25 MG IV ×3 (05:55→23:58)
[2018-10-31 06:50] LABS: Bedside Glucose 136 mg/dL (70-110)
--- NOTE | 2018-10-31 08:41 | PCM.PN.CARD ---
Subjectve: The patient notes he has had intermittent chest discomfort. He states his breathing at times is better and other times he still feels short of breath. He still has an element of lower extremity edema. Objective: Vital Signs Temp Pulse Resp BP Pulse Ox 98.6 F 63 18 140/78 H 95 10/31/18 02:30 10/31/18 07:12 10/31/18 02:30 10/31/18 02:30 10/31/18 02:30 Oxygen Flow Rate (L/min) 2 Oxygen Delivery Method Nasal Cannula Weight: 260 lb 9.382 oz Body Mass Index (BMI) 36.7 Finger Stick Blood Glucose 42 Intake and Output for Last 24 Hours 10/29/18 10/30/18 10/31/18 23:59 23:59 23:59 Intake Total 2325 / 2325 1901 / 1901 240 / 240 Output Total 635 / 635 625 / 625 225 / 225 Balance 1690 / 1690 1276 / 1276 15 / 15 General: No Acute Distress, Obese HEENT: Atraumatic, Normocephalic Oral: Moist Mucosa Neck: Supple, Good ROM, No JVD Lungs: - - No obvious rales or rhonchi Cardiovascular: Regular Rhythm, Normal S1, Normal S2 Abdomen: Bowel Sounds Present, Soft Extremities: Mild RLE Edema, Trace LLE Edema Psych/Mental Status: Appropriate 10/31/18 04:05: Sodium 135 L, Potassium 4.4, Chloride 99, Carbon Dioxide 28.0, Anion Gap 8, BUN 52 H, Creatinine 2.36 H, Est GFR (MDRD) Af Amer 36 L, Est GFR (MDRD) Non-Af 30 L, BUN/Creatinine Ratio 22.0 H, Glucose 111 H, Calcium 8.0 L Rhythm: Electronic ventricular paced rhythm Medical Necessity - Tobacco Use Smoking Status: Never smoker Assessment/Plan 1. Chest pain/shortness of breath/nausea The patient has a combination of symptoms. The symptoms may be concerning for underlying cardiovascular disease. However at the same time they may be compatible with his multiple noncardiovascular issues as well. From a cardiac standpoint the patient has been noted to have indeterminate troponin I levels. If over time his renal function improved and he can be considered for reevaluation in the cardiac catheterization laboratory as deemed appropriate. If not then he may need to be considered for a repeat noninvasive evaluation such as a pharmacologic stress nuclear imaging study, to screen for obvious significant myocardial ischemia that would warrant returning to the cardiac catheterization laboratory, despite his renal function, noting an increased risk of IV contrast related nephropathy. Thus at the present time he will continue medical adjustment. His renal function will be followed. 2. CAD status post PCI and CABG The patient does have a history of underlying CAD, PCI, and CABG as previously noted. Again at the present time he will continue medical management. He may eventually need further noninvasive or invasive evaluation. However it may be prudent to attempt medical management in the interim until his overall status has improved as noted above. 3. Ischemic mediated cardiomyopathy He has recently undergone evaluation of his left ventricular wall motion and systolic function. He will need to continue medical therapy. He does have an ICD in place. 4. Chronic systolic CHF He states while at [facility] his diuretics were discontinued. Based upon concerns of increased volume he did receive diuretic therapy. His creatinine level has increased. His diuretics are now on hold. He is being followed clinically. His creatinine level is being followed as well. To needs to have issues with his renal function he may need to be reassessed by nephrology. 5. ICD The patient does have a single-chamber ICD. It can be reassessed as needed. 6. Hyperlipidemia He will continue lowering therapy as deemed appropriate. 7. Hypertension The patient will need to have his blood pressure monitored. His medications can be adjusted as needed. 8. Diabetes mellitus The patient will continue under the care of internal medicine for this. 9. Carotid artery disease The patient does have peripheral arterial occlusive disease and is status post right carotid endarterectomy. He will continue medical management and follow-up as deemed appropriate. 10. Anemia thought secondary to upper GI bleed secondary to peptic ulcer disease His H&H does appear to be improved status post his 2 units of PRBCs. 11. Renal insufficiency The patient's creatinine level is increasing. His medications are being adjusted. This note was generated using a voice recognition system and there may be incorrect words, spelling or punctuation that were not noted when reviewing the office note prior to saving.
[2018-10-31] MEDS: Heparin Injection (Vial) 5,000 UNIT/ML VIAL 5000 UNIT SC (10:13)
[2018-10-31] MEDS: Ferrous Sulfate 325 MG Tablet PO (10:13)
[2018-10-31] MEDS: amLODIPine 10 MG Tablet PO (10:13)
[2018-10-31] MEDS: Aspirin E.C. 325 MG Tablet PO (10:13)
[2018-10-31] MEDS: Tamsulosin HCl 0.4 MG Capsule PO (10:14)
[2018-10-31] MEDS: Isosorbide Mononitrate 30 MG Tablet PO ×2 (10:14→21:30)
[2018-10-31] MEDS: Nystatin Powder 15gm Bottle 1 APPLIC TOPICAL ×2 (10:14→21:29)
[2018-10-31] MEDS: DULoxetine Hcl 30 MG Capsule PO (10:14)
[2018-10-31] MEDS: Carvedilol 25 MG Tablet PO ×2 (10:14→21:31)
[2018-10-31] MEDS: Sertraline 100 MG Tablet PO (10:14)
[2018-10-31] MEDS: 0.9% NaCl VAD Flush 10 ML IV ×2 (10:15→23:59)
[2018-10-31] MEDS: Insulin Lispro 100 UNIT/ML INSULN.PEN SQ ×3 (12:07→21:30)
[2018-10-31 12:55] LABS: Bedside Glucose 191 mg/dL (70-110)
--- NOTE | 2018-10-31 13:15 | PN_ITS ---
<Antonio Ham - Last Filed: 10/31/18 13:10> Patient Problems: Active and Suspected Problems Chest pain (Acute) Shortness of breath (Acute) Abnormal cardiac enzyme level (Acute) Anemia (Acute) Subjective: Pt complains of ongoing chest pain on the left side. He also has intermittent black stools, however he is on iron. He does however have a hx of stomach bleeding - he is not sure if he had ulcers. He is tolerating the catheter without discomfort. He has no dizziness or LH. He has no palp. He has no fevers or chills. He feels his LE edema is improved. He reports no worsening of SOB. - Physical Exam General: Alert, Oriented x3, Cooperative HEENT: Atraumatic, PERRLA, EOMI, Normocephalic Neck: Supple, No JVD, Negative Carotid Bruits Lungs: Clear to auscultation, Normal air movement Cardiovascular: Regular rate, No murmurs Abdomen: Bowel Sounds Present, Soft, Non Tender, Obese Extremities: Capillary Refill Less than 3 Seconds, Edema - 2-3+ pitting edema BLE up to knees Skin: No rashes, No breakdown Musculoskeletal: No Tenderness to Palpation of Joints or Extremities Neurological: Cranial nerves II-XII grossly intact Psych/Mental Status: Normal Affect, Appropriate, Alert and oriented to time, place, person, mood and affect Vital Signs Temp Pulse Resp BP Pulse Ox 98.3 F 68 18 112/55 L 97 10/31/18 10:11 10/31/18 11:50 10/31/18 10:11 10/31/18 10:11 10/31/18 10:11 Oxygen Flow Rate (L/min) 2 Oxygen Delivery Method Nasal Cannula Weight: 260 lb 9.382 oz Body Mass Index (BMI) 36.7 Finger Stick Blood Glucose 42 Intake and Output for Last 24 Hours 10/29/18 10/30/18 10/31/18 23:59 23:59 23:59 Intake Total 2325 / 2325 1901 / 1901 636 / 636 Output Total 635 / 635 625 / 625 425 / 425 Balance 1690 / 1690 1276 / 1276 211 / 211 Laboratory Tests Past 24 Hrs 10/29/18 10/31/18 04:44 04:05 Sodium 135 L Potassium 4.4 Chloride 99 Carbon Dioxide 28.0 Anion Gap 8 BUN 52 H Creatinine 2.36 H Estim Creat Clear Calc 32.45 Est GFR (MDRD) Af Amer 36 L Est GFR (MDRD) Non-Af 30 L BUN/Creatinine Ratio 22.0 H Glucose 111 H Calcium 8.0 L RBC Folate Hemolysate 378.3 RBC Folate 1438 Hematocrit 26.3 L POC Glucose 10/31/18 10/31/18 10/31/18 12:05 06:35 02:14 POC Glucose 191 H 136 H 111 H 10/30/18 10/30/18 20:39 15:59 POC Glucose 143 H 134 H Medical Necessity - Tobacco Use Smoking Status: Never smoker Assessment/Plan All Active Problems Chest pain (Acute) Shortness of breath (Acute) Abnormal cardiac enzyme level (Acute) Anemia (Acute) 1. Chest pain-patient has continued ongoing left-sided chest pain. Troponins were indeterminate but remained flat. Cardiology is following. TSH was elevated however T4 was normal. Cardiology is weighing the pros and cons of a heart cath or a stress test given his poor renal function. 2. Acute on chronic systolic congestive heart failure exacerbation complicated by ischemic cardiomyopathy- he has remained stable with the discontinuation of lasix. Patient has AICD. EF 45% on last echo in 2018. Admission his BNP was 1581, however his chest x-ray was negative. 3. AYE -lasix DCd yesterday. Slightly worse. Nephrology consulted. He has been dialyzed before [facility]. 4. Urinary retention- continue flomax. Voiding trial today. 5. Hypertension-stable 6. Hyperlipidemia-statin 7. Type 2 diabetes mellitus with obesity-continue sliding scale insulin, lantus held for hypoglycemia 8. Anxiety depression-continue home meds 9. History of CVA-aspirin and statin 10. Obstructive sleep apnea-CPAP at night 11. Chronic back pain-continue gabapentin and Zanaflex. 12. CAD - prior stents, CABG - on statin, asa, coreg, hydralazine, imdur, no SHEEBA/ARB 2/2 poor renal function. 13. Hx GI bleeding - on iron. Black stools. PPI to PO BID. DC high dose aspirin. DC heparin DVT prophylaxis-SCDs. Chemoppx contraindicated with #13. DC planning-pending further cardiac workup. This patient was seen by Antonio Ham PA-C under the supervision of Doctor Ramirez . <Nikia Ramirez Last Filed: 10/31/18 14:08> - Physical Exam Vital Signs Temp Pulse Resp BP Pulse Ox 98.3 F 68 18 112/55 L 97 10/31/18 10:11 10/31/18 11:50 10/31/18 10:11 10/31/18 10:11 10/31/18 10:11 Oxygen Flow Rate (L/min) 2 Oxygen Delivery Method Nasal Cannula Weight: 260 lb 9.382 oz Body Mass Index (BMI) 36.7 Finger Stick Blood Glucose 42 Intake and Output for Last 24 Hours 10/29/18 10/30/18 10/31/18 23:59 23:59 23:59 Intake Total 2325 / 2325 1901 / 1901 636 / 636 Output Total 635 / 635 625 / 625 425 / 425 Balance 1690 / 1690 1276 / 1276 211 / 211 Laboratory Tests Past 24 Hrs 10/29/18 10/31/18 04:44 04:05 Sodium 135 L Potassium 4.4 Chloride 99 Carbon Dioxide 28.0 Anion Gap 8 BUN 52 H Creatinine 2.36 H Estim Creat Clear Calc 32.45 Est GFR (MDRD) Af Amer 36 L Est GFR (MDRD) Non-Af 30 L BUN/Creatinine Ratio 22.0 H Glucose 111 H Calcium 8.0 L RBC Folate Hemolysate 378.3 RBC Folate 1438 Hematocrit 26.3 L POC Glucose 10/31/18 10/31/18 10/31/18 12:05 06:35 02:14 POC Glucose 191 H 136 H 111 H 10/30/18 10/30/18 20:39 15:59 POC Glucose 143 H 134 H Assessment/Plan Hospitalist note: I am seeing this patient in conjunction with Antonio Ham. I independently seen and examined the patient. Progress note above, laboratory data and I agree with the above treatment and workup plan. He is still complaining of intermittent left-sided chest pain. His vital signs are stable. - Physical Exam General: Alert, Oriented x3, Cooperative, No apparent distress. HEENT: Atraumatic, PERRLA, EOMI. Neck: Supple, No JVD, Negative Carotid Bruits, Trachea Midline, Thyroid Normal. Lungs: Decreased breath sounds bilateral more at the bases, scattered rhonchi, no wheezes. Cardiovascular: Regular rate, Regular Rhythm, Normal S1, Normal S2, PMI Normal. Abdomen: Bowel Sounds Present, Soft, Non Tender, Non-Distended, No Hepato- splenomegaly. Extremities: No clubbing, No cyanosis, + edema Skin: No rashes, No breakdown Neurological: Neuro grossly intact Assessment and plan: #1 chest pain/indeterminate troponin: Still symptomatic, intermittent chest pain. He is on aspirin, statins, beta-blockers, nitrates and hydralazine. He had of history of CAD status post CABG and PTCA. Troponin are borderline elevated and trended down. He is on aspirin, statins, Coreg, Lasix, Bumex and Imdur. BUN and creatinine are still trending up. Cardiology on the case, planning for cardiac catheterization but this will be postponed because of worsening kidney function. #2 acute on chronic systolic CHF/ischemic cardiomyopathy, status post ICD. IV Lasix discontinued. Patient reported improvement of his shortness of breath, remained stable on 2 L. Most recent 2D echocardiogram on September, revealed ejection fraction of 45%. He is on IV Lasix and Bumex, continue Coreg, Imdur and hydralazine. Plan as above. #3 acute on chronic anemia/iron deficiency anemia: Recently, hemoglobin has been declining. His baseline hemoglobin around 11-12 g/dL. Patient reported black stool, melena. He had upper EGD at [facility] that revealed multiple gastric ulcers and small duodenal ulcer. He is on PPI. He received 2 unit of packed RBCs, yesterday's hemoglobin is 9.5 g/dL. Plan to repeat CBC tomorrow morning. #4 acute kidney injury: Likely due to Lasix and Bumex and both were held. Kidney function continued to worsen today. Plan: Nephrology consult. #5 other chronic medical problems: Stable, continue current medications as above. This note was generated with Sals[employer] dictation software. It may contain incorrect words, spelling, and punctuation that were not noted in checking the note before signing. Code Visit Inpatient E&M: 20068 Subs Hosp L2
[2018-10-31 16:36] LABS: Bedside Glucose 248 mg/dL (70-110)
[2018-10-31] MEDS: Pantoprazole Sodium 40 MG Tablet PO (21:29)
[2018-10-31] MEDS: Atorvastatin Calcium 80 MG Tablet PO (21:30)
[2018-10-31 22:31] LABS: Bedside Glucose 168 mg/dL (70-110)
[2018-11-01] VITALS (15 sets, daily range): BP systolic 130–142; BP diastolic 66–85; PULSE 63–67; RESP 16–20; TEMP 36.8–37.3; O2SAT 91–96
[2018-11-01 03:31] LABS: Bedside Glucose 173 mg/dL (70-110)
[2018-11-01] MEDS: 0.9% NaCl VAD Flush 10 ML IV ×5 (04:25→21:17)
[2018-11-01 04:52] LABS: Hematocrit 29.9 % (40-54); Hemoglobin 9.4 g/dl (13.0-16.5)
[2018-11-01 05:02] LABS: Anion Gap 10 (5-15); BUN 57 mg/dL (7-18); BUN/Creat Ratio 25.9 RATIO (10-20); Calcium,Total 8.3 mg/dL (8.5-10.1); Chloride 97 mmol/L (98-107); EST Glomerular Filtration Rate 32 mL/min (>60); Est Glom Filt Rate - Afr Amer 39 mL/min (>60); Estimated Creatinine Clearance 34.81 ml/min; Glucose 176 mg/dL (74-106); Potassium 4.1 mmol/L (3.5-5.1); Sodium Level 134 mmol/L (136-145)
[2018-11-01] MEDS: hydrALAZINE 25 MG Tablet PO ×3 (05:21→21:24)
[2018-11-01] MEDS: Gabapentin 600 MG Tablet PO ×3 (05:22→21:25)
[2018-11-01] MEDS: Morphine 4 MG/ML Syringe IV (05:22)
[2018-11-01 07:10] LABS: Bedside Glucose 180 mg/dL (70-110)
[2018-11-01] MEDS: Insulin Lispro 100 UNIT/ML INSULN.PEN SQ ×4 (08:04→21:23)
[2018-11-01] MEDS: Tamsulosin HCl 0.4 MG Capsule PO (08:05)
[2018-11-01] MEDS: Aspirin 81 MG TAB.CHEW PO (08:05)
[2018-11-01] MEDS: DULoxetine Hcl 30 MG Capsule PO (08:06)
[2018-11-01] MEDS: Isosorbide Mononitrate 30 MG Tablet PO ×2 (08:06→21:24)
[2018-11-01] MEDS: Carvedilol 25 MG Tablet PO ×2 (08:06→21:24)
[2018-11-01] MEDS: amLODIPine 10 MG Tablet PO (08:07)
[2018-11-01] MEDS: Pantoprazole Sodium 40 MG Tablet PO ×2 (08:07→21:25)
[2018-11-01] MEDS: Sertraline 100 MG Tablet PO (08:07)
[2018-11-01] MEDS: Nystatin Powder 15gm Bottle 1 APPLIC TOPICAL ×2 (08:08→21:25)
--- NOTE | 2018-11-01 08:22 | PCM.PROGNOTE ---
Patient Problems: Active and Suspected Problems Chest pain (Acute) Shortness of breath (Acute) Abnormal cardiac enzyme level (Acute) Anemia (Acute) Subjective: Chief complaint: Follow-up after admission for chest pain with abnormal troponin, acute on chronic systolic CHF, acute on chronic anemia and acute kidney injury. Patient seen and examined. No acute events overnight. Still complaining of intermittent chest pain, breathing is stable. Denies any other complaints. His vital signs are stable. - Physical Exam General: Alert, Oriented x3, Cooperative, No apparent distress HEENT: Atraumatic, PERRLA, EOMI, Normocephalic Oral: Moist Mucosa, No Gingival or Mucosal Lesions/ Ulcerations Neck: Supple, No JVD, Negative Carotid Bruits, Trachea Midline, Thyroid Normal Size and Texture Lungs: Clear to auscultation, No rhonchi, No wheeze, No rales, Diminished Cardiovascular: Regular rate, Regular Rhythm, Normal S1, Normal S2, PMI Normal Abdomen: Bowel Sounds Present, Soft, Non Tender, Non-Distended, No Hepato-splenomegaly Extremities: No clubbing, No cyanosis, Edema - + Edema. Skin: No rashes, No breakdown Lymphatic: No Cervical, Supraclavicular, or Inguinal Adenopathy Neurological: Cranial nerves II-XII grossly intact, Neuro grossly intact Psych/Mental Status: Normal Affect, Appropriate, Alert and oriented to time, place, person, mood and affect Vital Signs Temp Pulse Resp BP Pulse Ox 98.2 F 65 20 H 134/85 H 94 11/01/18 08:02 11/01/18 08:02 11/01/18 08:02 11/01/18 08:02 11/01/18 08:02 Oxygen Flow Rate (L/min) 2 Oxygen Delivery Method Room Air Weight: 262 lb 12.656 oz Body Mass Index (BMI) 36.7 Finger Stick Blood Glucose 42 Intake and Output for Last 24 Hours 10/30/18 10/31/18 11/01/18 23:59 23:59 23:59 Intake Total 1901 / 1901 876 / 876 360 / 360 Output Total 625 / 625 425 / 425 525 / 525 Balance 1276 / 1276 451 / 451 -165 / -165 Laboratory Tests Past 24 Hrs 11/01/18 11/01/18 04:25 04:25 Hgb 9.4 L Hct 29.9 L Sodium 134 L Potassium 4.1 Chloride 97 L Carbon Dioxide 27.0 Anion Gap 10 BUN 57 H Creatinine 2.20 H Estim Creat Clear Calc 34.81 Est GFR (MDRD) Af Amer 39 L Est GFR (MDRD) Non-Af 32 L BUN/Creatinine Ratio 25.9 H Glucose 176 H Calcium 8.3 L POC Glucose 11/01/18 11/01/18 10/31/18 07:02 03:25 21:26 POC Glucose 180 H 173 H 168 H 10/31/18 10/31/18 16:24 12:05 POC Glucose 248 H 191 H Medical Necessity - Tobacco Use Smoking Status: Never smoker Assessment/Plan All Active Problems Chest pain (Acute) Shortness of breath (Acute) Abnormal cardiac enzyme level (Acute) Anemia (Acute) This is a 63 years old male patient admitted because of chest pain or shortness of breath, found to have borderline elevated troponin and acute on chronic systolic CHF, hospital course complicated by acute on chronic anemia required blood transfusion as well as acute kidney injury. #1 chest pain/indeterminate troponin: Still symptomatic, intermittent chest pain. His vital signs are stable. Remained on aspirin, statins, beta-blockers, nitrates and hydralazine. He had of history of CAD status post CABG and PTCA. Troponin are borderline elevated and trended down. He is on aspirin, statins, Coreg, Lasix, Bumex and Imdur. BUN and creatinine remained almost the same, minimal improvement. Cardiology on the case, planning for cardiac catheterization but this will be postponed because of worsening kidney function. Plan: DC fluid restriction, no IV fluids, repeat BMP tomorrow morning. #2 acute on chronic systolic CHF/ischemic cardiomyopathy, status post ICD. IV Lasix discontinued, continued on Coreg, nitrates and hydralazine.. Patient reported improvement of his shortness of breath, remained stable on 2 L. Most recent 2D echocardiogram on September, revealed ejection fraction of 45%. Serum creatinine remained almost the same as yesterday, minimal improvement. Plan as above. #3 acute on chronic anemia/iron deficiency anemia: Recently, hemoglobin has been declining. His baseline hemoglobin around 11-12 g/dL. Patient reported black stool, melena. He had upper EGD at [facility] that revealed multiple gastric ulcers and small duodenal ulcer. He is on PPI. He received 2 unit of packed RBCs, today's hemoglobin is 9.4 g/dL. Plan to repeat CBC tomorrow morning. #4 acute kidney injury: Likely due to Lasix and Bumex and both were held. Today's creatinine is 2.20, minimally improved. Nephrology consulted, awaiting their recommendations. #5 type 2 diabetes mellitus: Blood sugar has been stable, continue Accu-Cheks. At home, patient has been on glargine insulin 30 units twice daily which are held. #6 hypertension: Blood pressure stable, continue Norvasc, Coreg, nitrate and hydralazine. #7 history of CVA: Stable, continue aspirin and statins. #8 CAD status post CABG and stents: Plan as above. Continue aspirin, statins, beta-blockers, nitrates and hydralazine. #9 history of GI bleed: No evidence of active bleeding. Hemoglobin stabilized after blood transfusion. Patient is on PPI. #10 anxiety/depression: Continue Cymbalta and Zoloft. #12 hyperlipidemia: Continue statins. #13 obstructive sleep apnea: Continue CPAP at night. #14 DVT prophylaxis: SCDs, no chemical prophylaxis. This note was generated with [employer] dictation software. It may contain incorrect words, spelling, and punctuation that were not noted in checking the note before signing. Code Visit Inpatient E&M: 38362 Subs Hosp L2
[2018-11-01] MEDS: proMETHazine 25 MG/ML Syringe 6.25 MG IV ×2 (11:04→21:16)
[2018-11-01 12:11] LABS: Bedside Glucose 257 mg/dL (70-110)
--- NOTE | 2018-11-01 14:33 | PN.CARD_ITS ---
Subjectve: The patient remains without acute cardiovascular complaints. Objective: Vital Signs Temp Pulse Resp BP Pulse Ox 99.1 F 64 16 140/84 H 94 11/01/18 13:49 11/01/18 13:53 11/01/18 13:49 11/01/18 13:49 11/01/18 13:49 Oxygen Flow Rate (L/min) 2 Oxygen Delivery Method Room Air Weight: 262 lb 12.656 oz Body Mass Index (BMI) 36.7 Finger Stick Blood Glucose 42 Intake and Output for Last 24 Hours 10/30/18 10/31/18 11/01/18 23:59 23:59 23:59 Intake Total 1901 / 1901 876 / 876 600 / 600 Output Total 625 / 625 425 / 425 525 / 525 Balance 1276 / 1276 451 / 451 75 / 75 General: No Acute Distress, Obese Neck: No JVD Lungs: Clear to auscultation Cardiovascular: Regular Rhythm, Normal S1, Normal S2 Abdomen: Bowel Sounds Present, Soft, Obese 11/01/18 04:25: Sodium 134 L, Potassium 4.1, Chloride 97 L, Carbon Dioxide 27.0, Anion Gap 10, BUN 57 H, Creatinine 2.20 H, Est GFR (MDRD) Af Amer 39 L, Est GFR (MDRD) Non-Af 32 L, BUN/Creatinine Ratio 25.9 H, Glucose 176 H, Calcium 8.3 L 11/01/18 04:25: Hgb 9.4 L, Hct 29.9 L Rhythm:Electronic ventricular paced rhythm Medical Necessity - Tobacco Use Smoking Status: Never smoker Assessment/Plan 1. Chest pain/shortness of breath/nausea The patient has a combination of symptoms. The symptoms may be concerning for underlying cardiovascular disease. However at the same time they may be néstor tible with his multiple noncardiovascular issues as well. From a cardiac standpoint the patient has been noted to have indeterminate troponin I levels. At the present time the patient continues to be monitored. His creatinine level remains elevated. Thus he may be considered for a future pharmacologic stress nuclear imaging study to reassess his coronary perfusion/ischemic burden which may assist in determining whether or not he is a candidate for a repeat trip to the cardiac catheterization laboratory noting the concerns of underlying renal insufficiency. 2. CAD status post PCI and CABG The patient does have a history of underlying CAD, PCI, and CABG as previously noted. Again at the present time he will continue medical management. 3. Ischemic mediated cardiomyopathy He has recently undergone evaluation of his left ventricular wall motion and systolic function. He will need to continue medical therapy. He does have an ICD in place. 4. Chronic systolic CHF He states while at [facility] his diuretics were discontinued. Based upon concerns of increased volume he did receive diuretic therapy. His creatinine level has increased. His diuretics are now on hold. He is being followed clinically. His creatinine level is being followed as well. 5. ICD The patient does have a single-chamber ICD. It can be reassessed as needed. 6. Hyperlipidemia He will continue lowering therapy as deemed appropriate. 7. Hypertension The patient will need to have his blood pressure monitored. His medications can be adjusted as needed. 8. Diabetes mellitus The patient will continue under the care of internal medicine for this. 9. Carotid artery disease The patient does have peripheral arterial occlusive disease and is status post right carotid endarterectomy. He will continue medical management and follow-up as deemed appropriate. 10. Anemia thought secondary to upper GI bleed secondary to peptic ulcer disease His H&H does appear to be improved status post his 2 units of PRBCs. 11. Renal insufficiency The patient's creatinine level remains elevated. A nephrology consult is pending. Comment: The above case was discussed with Dr. Ramirez. This note was generated using a voice recognition system and there may be incorrect words, spelling or punctuation that were not noted when reviewing the office note prior to saving.
--- NOTE | 2018-11-01 16:07 | PCM.CONS.R ---
Problem List (1) Acute kidney injury Status: Acute Consultation - Renal PCP/ Referring MD: Requesting physician: [] Primary care physician: Out of Town Doctor - History of Present Illness History of Present Illness: The patient is a 63 year old M medical history of ischemic cardiomyopathy , MS , CHF . Patient has history of recent admission to [facility] for leg infection needed antibiotics . Patient developed AK I from antibiotics . No record available from [facility] . Patient presented with a creatinine 2.2 mg a deciliter . Patient presented this time to the hospital with the chest pain and some shortness of breath . Patient is going to have cardiac cath tomorrow . Patient is not on SHEEBA inhibitor . Patient is taking Norvasc , Coreg , hydralazine , isosorbide dinitrate Blood pressures well controlled . No recent SHEEBA inhibitor . No NSAIDs used . No IV contrast exposure Review of systems . 12 systems review is negative except for joint pain and some chest pain [] - Allergies Allergies: Allergies metoclopramide HCl [From Reglan] Adverse Reaction (Verified 10/13/18 12:27) goofy, anxious, elevated BP ondansetron HCl [From Zofran] Adverse Reaction (Verified 10/13/18 12:27) goofy, anxious, elevated BP Wnvenes-Dte-Cou Reductase Inhibitor Adverse Reaction (Verified 10/13/18 16:05) rhabdomyolosis - Current Medications Current Medications: Current Medications Amlodipine Besylate (Norvasc) 10 mg PO DAILY [facility] Last Admin: 11/01/18 08:07 Dose: 10 mg Aspirin (Aspirin, Baby) 81 mg PO DAILY@0800 [facility] Last Admin: 11/01/18 08:05 Dose: 81 mg Atorvastatin Calcium (Lipitor) 80 mg PO QHS [facility] Last Admin: 10/31/18 21:30 Dose: 80 mg Carvedilol (Coreg) 25 mg PO BID [facility] Last Admin: 11/01/18 08:06 Dose: 25 mg Dextrose (D50w Syringe) 0 gm IV X1 PRN; Protocol PRN Reason: Hypoglycemia Duloxetine HCl (Cymbalta) 30 mg PO DAILY [facility] Last Admin: 11/01/18 08:06 Dose: 30 mg Ferrous Sulfate (Ferrous Sulfate) 325 mg PO QODAY@0800 [facility] Last Admin: 10/31/18 10:13 Dose: 325 mg Gabapentin (Neurontin) 600 mg PO TID [facility] Last Admin: 11/01/18 13:54 Dose: 600 mg Glucagon () 1 mg IM .X1 PRN PRN Reason: Hypoglycemia Hydralazine HCl (Apresoline) 25 mg PO TID [facility] Last Admin: 11/01/18 13:53 Dose: 25 mg Hydroxyzine Pamoate (Vistaril Pamoate Capsule) 25 mg PO TID PRN PRN PRN Reason: ITCHING/ANXIETY Last Admin: 10/30/18 10:36 Dose: 25 mg Insulin Human Lispro (Humalog Kwikpen (Bkc)) 0 unit SQ ACHS [facility]; Protocol Last Admin: 11/01/18 11:28 Dose: 2 u Isosorbide Mononitrate (Imdur) 30 mg PO BID [facility] Last Admin: 11/01/18 08:06 Dose: 30 mg Magnesium Hydroxide (Milk Of Magnesia) 30 ml PO DAILY PRN PRN Reason: Constipation Melatonin (Melatonin) 20 mg PO QHS PRN PRN Reason: SLEEP Morphine Sulfate () 2 mg IV Q4H PRN PRN PRN Reason: SEVERE PAIN (6-10/10) Nitroglycerin (Nitrostat) 0.4 mg SUBLINGUAL Q5M PRN PRN Reason: CHEST PAIN Nystatin (Mycostatin Powder) 1 applic TOPICAL BID [facility]; Protocol Last Admin: 11/01/18 08:08 Dose: 1 applic Pantoprazole Sodium (Protonix) 40 mg PO BID [facility] Last Admin: 11/01/18 08:07 Dose: 40 mg Promethazine HCl (Phenergan) 6.25 mg IV Q6H PRN PRN PRN Reason: NAUSEA/VOMITING Last Admin: 11/01/18 11:04 Dose: 6.25 mg Sertraline HCl (Zoloft) 100 mg PO DAILY [facility] Last Admin: 11/01/18 08:07 Dose: 100 mg Sodium Chloride () 10 ml IV UD PRN PRN Reason: VAD FLUSH Last Admin: 11/01/18 11:04 Dose: 10 ml Tamsulosin HCl (Flomax) 0.4 mg PO DAILY@0830 [facility] Last Admin: 11/01/18 08:05 Dose: 0.4 mg Tizanidine HCl (Zanaflex) 8 mg PO TID PRN PRN PRN Reason: SPASMS - Past Medical History Past Medical History (Chronic Problems): Chronic Problems Cellulitis of right heel (Chronic) S/P CABG (coronary artery bypass graft) (Chronic) S/P PTCA (percutaneous transluminal coronary angioplasty) (Chronic) Cardiomyopathy (Chronic) ICD (implantable cardioverter-defibrillator) in place (Chronic) mediport placement (Chronic) Hyperlipidemia (Chronic) DM type 2 (diabetes mellitus, type 2) (Chronic) Chronic CHF (congestive heart failure) (Chronic) ef=25% as of 04/04 Carotid artery stenosis (Chronic) R CEA CAD (coronary artery disease) (Chronic) extensive disease multiple stents Hx of CABG (Chronic) hx epidural abscess (Chronic) Obesity (Chronic) Benign hypertension (Chronic) - Past Surgical History Surgical History: appendectomy, cataract, cholecystectomy, coronary bypass surgery - 2004 - [place], herniorrhaphy, tonsillectomy, - - Cardiac stent placement ?24 (according to patient), right carotid endarterectomy. - Social History Smoking Status: Never smoker - Family History Maternal History Items: No pertinent history Paternal History Items: Heart Disease - of an MS at age 61 Sibling History Items: No pertinent history Patient Problems: Active and Suspected Problems Acute kidney injury (Acute) Chest pain (Acute) Shortness of breath (Acute) Abnormal cardiac enzyme level (Acute) Anemia (Acute) - Physical Exam General: Alert, Oriented x3 HEENT: Atraumatic Oral: Moist Mucosa Neck: Supple, No JVD, Negative Carotid Bruits Lungs: Clear to auscultation, Normal air movement, No rhonchi Cardiovascular: Regular rate, Regular Rhythm, Normal S1, Normal S2 Abdomen: Bowel Sounds Present, Soft, Non Tender Extremities: No clubbing, No cyanosis, No edema Skin: No rashes Musculoskeletal: No Tenderness to Palpation of Joints or Extremities Lymphatic: No Cervical, Supraclavicular, or Inguinal Adenopathy Neurological: Cranial nerves II-XII grossly intact, Neuro grossly intact Psych/Mental Status: Normal Affect Vital Signs Temp Pulse Resp BP Pulse Ox 99.1 F 66 16 140/84 H 94 11/01/18 13:49 11/01/18 15:14 11/01/18 13:49 11/01/18 13:49 11/01/18 13:49 Oxygen Flow Rate (L/min) 2 Oxygen Delivery Method Room Air Weight: 119.2 kg Body Mass Index (BMI) 36.7 Finger Stick Blood Glucose 42 Intake and Output for Last 24 Hours 10/30/18 10/31/18 11/01/18 23:59 23:59 23:59 Intake Total 1901 / 1901 876 / 876 600 / 600 Output Total 625 / 625 425 / 425 525 / 525 Balance 1276 / 1276 451 / 451 75 / 75 Laboratory Tests Past 24 Hrs 11/01/18 11/01/18 04:25 04:25 Hgb 9.4 L Hct 29.9 L Sodium 134 L Potassium 4.1 Chloride 97 L Carbon Dioxide 27.0 Anion Gap 10 BUN 57 H Creatinine 2.20 H Estim Creat Clear Calc 34.81 Est GFR (MDRD) Af Amer 39 L Est GFR (MDRD) Non-Af 32 L BUN/Creatinine Ratio 25.9 H Glucose 176 H Calcium 8.3 L POC Glucose 11/01/18 11/01/18 11/01/18 11:26 07:02 03:25 POC Glucose 257 H 180 H 173 H 10/31/18 10/31/18 21:26 16:24 POC Glucose 168 H 248 H Assessment/Plan All Active Problems Acute kidney injury (Acute) Chest pain (Acute) Shortness of breath (Acute) Abnormal cardiac enzyme level (Acute) Anemia (Acute) 1-acute kidney injury. Patient has a history of recent acute kidney injury most probably from antibiotics induced ATN. Creatinine during this admission is stable at 2.2. Check UA Patient at risk for worsening kidney function if he would receive IV contrast. Please hold all diuretics, SHEEBA inhibitor/ARB before cardiac cath. Please hydrate the patient with normal saline at 75 cc/h 6 hours before to 6 hours after the procedure check renal function in a.m. 2-hypertension: Blood pressure is well controlled. Please avoid SHEEBA inhibitor/ARB for now 3-chest pain. Patient might need cardiac cath. Please see above instruction to preserve kidney function. Thank you for the consult. Renal team will continue to follow
--- NOTE | 2018-11-01 16:11 | CON.PCM_ITS ---
Problem List (1) Acute kidney injury Status: Acute Consultation - Renal PCP/ Referring MD: Requesting physician: [] Primary care physician: Out of Town Doctor - History of Present Illness History of Present Illness: The patient is a 63 year old M medical history of ischemic cardiomyopathy , CO , CHF . Patient has history of recent admission to [facility] for leg infection needed antibiotics . Patient developed AK I from antibiotics . No record available from [facility] . Patient presented with a creatinine 2.2 mg a deciliter . Patient presented this time to the hospital with the chest pain and some shortness of breath . Patient is going to have cardiac cath tomorrow . Patient is not on SHEEBA inhibitor . Patient is taking Norvasc , Coreg , hydralazine , isosorbide dinitrate Blood pressures well controlled . No recent SHEEBA inhibitor . No NSAIDs used . No IV contrast exposure Review of systems . 12 systems review is negative except for joint pain and some chest pain [] - Allergies Allergies: Allergies metoclopramide HCl [From Reglan] Adverse Reaction (Verified 10/13/18 12:27) goofy, anxious, elevated BP ondansetron HCl [From Zofran] Adverse Reaction (Verified 10/13/18 12:27) goofy, anxious, elevated BP Cnvbnxh-Vae-Sje Reductase Inhibitor Adverse Reaction (Verified 10/13/18 16:05) rhabdomyolosis - Current Medications Current Medications: Current Medications Amlodipine Besylate (Norvasc) 10 mg PO DAILY [facility] Last Admin: 11/01/18 08:07 Dose: 10 mg Aspirin (Aspirin, Baby) 81 mg PO DAILY@0800 [facility] Last Admin: 11/01/18 08:05 Dose: 81 mg Atorvastatin Calcium (Lipitor) 80 mg PO QHS [facility] Last Admin: 10/31/18 21:30 Dose: 80 mg Carvedilol (Coreg) 25 mg PO BID [facility] Last Admin: 11/01/18 08:06 Dose: 25 mg Dextrose (D50w Syringe) 0 gm IV X1 PRN; Protocol PRN Reason: Hypoglycemia Duloxetine HCl (Cymbalta) 30 mg PO DAILY [facility] Last Admin: 11/01/18 08:06 Dose: 30 mg Ferrous Sulfate (Ferrous Sulfate) 325 mg PO QODAY@0800 [facility] Last Admin: 10/31/18 10:13 Dose: 325 mg Gabapentin (Neurontin) 600 mg PO TID [facility] Last Admin: 11/01/18 13:54 Dose: 600 mg Glucagon () 1 mg IM .X1 PRN PRN Reason: Hypoglycemia Hydralazine HCl (Apresoline) 25 mg PO TID [facility] Last Admin: 11/01/18 13:53 Dose: 25 mg Hydroxyzine Pamoate (Vistaril Pamoate Capsule) 25 mg PO TID PRN PRN PRN Reason: ITCHING/ANXIETY Last Admin: 10/30/18 10:36 Dose: 25 mg Insulin Human Lispro (Humalog Kwikpen (Bkc)) 0 unit SQ ACHS [facility]; Protocol Last Admin: 11/01/18 11:28 Dose: 2 u Isosorbide Mononitrate (Imdur) 30 mg PO BID [facility] Last Admin: 11/01/18 08:06 Dose: 30 mg Magnesium Hydroxide (Milk Of Magnesia) 30 ml PO DAILY PRN PRN Reason: Constipation Melatonin (Melatonin) 20 mg PO QHS PRN PRN Reason: SLEEP Morphine Sulfate () 2 mg IV Q4H PRN PRN PRN Reason: SEVERE PAIN (6-10/10) Nitroglycerin (Nitrostat) 0.4 mg SUBLINGUAL Q5M PRN PRN Reason: CHEST PAIN Nystatin (Mycostatin Powder) 1 applic TOPICAL BID [facility]; Protocol Last Admin: 11/01/18 08:08 Dose: 1 applic Pantoprazole Sodium (Protonix) 40 mg PO BID [facility] Last Admin: 11/01/18 08:07 Dose: 40 mg Promethazine HCl (Phenergan) 6.25 mg IV Q6H PRN PRN PRN Reason: NAUSEA/VOMITING Last Admin: 11/01/18 11:04 Dose: 6.25 mg Sertraline HCl (Zoloft) 100 mg PO DAILY [facility] Last Admin: 11/01/18 08:07 Dose: 100 mg Sodium Chloride () 10 ml IV UD PRN PRN Reason: VAD FLUSH Last Admin: 11/01/18 11:04 Dose: 10 ml Tamsulosin HCl (Flomax) 0.4 mg PO DAILY@0830 [facility] Last Admin: 11/01/18 08:05 Dose: 0.4 mg Tizanidine HCl (Zanaflex) 8 mg PO TID PRN PRN PRN Reason: SPASMS - Past Medical History Past Medical History (Chronic Problems): Chronic Problems Cellulitis of right heel (Chronic) S/P CABG (coronary artery bypass graft) (Chronic) S/P PTCA (percutaneous transluminal coronary angioplasty) (Chronic) Cardiomyopathy (Chronic) ICD (implantable cardioverter-defibrillator) in place (Chronic) mediport placement (Chronic) Hyperlipidemia (Chronic) DM type 2 (diabetes mellitus, type 2) (Chronic) Chronic CHF (congestive heart failure) (Chronic) ef=25% as of 04/04 Carotid artery stenosis (Chronic) R CEA CAD (coronary artery disease) (Chronic) extensive disease multiple stents Hx of CABG (Chronic) hx epidural abscess (Chronic) Obesity (Chronic) Benign hypertension (Chronic) - Past Surgical History Surgical History: appendectomy, cataract, cholecystectomy, coronary bypass surgery - 2004 - [place], herniorrhaphy, tonsillectomy, - - Cardiac stent placement ?24 (according to patient), right carotid endarterectomy. - Social History Smoking Status: Never smoker - Family History Maternal History Items: No pertinent history Paternal History Items: Heart Disease - of an CO at age 61 Sibling History Items: No pertinent history Patient Problems: Active and Suspected Problems Acute kidney injury (Acute) Chest pain (Acute) Shortness of breath (Acute) Abnormal cardiac enzyme level (Acute) Anemia (Acute) - Physical Exam General: Alert, Oriented x3 HEENT: Atraumatic Oral: Moist Mucosa Neck: Supple, No JVD, Negative Carotid Bruits Lungs: Clear to auscultation, Normal air movement, No rhonchi Cardiovascular: Regular rate, Regular Rhythm, Normal S1, Normal S2 Abdomen: Bowel Sounds Present, Soft, Non Tender Extremities: No clubbing, No cyanosis, No edema Skin: No rashes Musculoskeletal: No Tenderness to Palpation of Joints or Extremities Lymphatic: No Cervical, Supraclavicular, or Inguinal Adenopathy Neurological: Cranial nerves II-XII grossly intact, Neuro grossly intact Psych/Mental Status: Normal Affect Vital Signs Temp Pulse Resp BP Pulse Ox 99.1 F 66 16 140/84 H 94 11/01/18 13:49 11/01/18 15:14 11/01/18 13:49 11/01/18 13:49 11/01/18 13:49 Oxygen Flow Rate (L/min) 2 Oxygen Delivery Method Room Air Weight: 119.2 kg Body Mass Index (BMI) 36.7 Finger Stick Blood Glucose 42 Intake and Output for Last 24 Hours 10/30/18 10/31/18 11/01/18 23:59 23:59 23:59 Intake Total 1901 / 1901 876 / 876 600 / 600 Output Total 625 / 625 425 / 425 525 / 525 Balance 1276 / 1276 451 / 451 75 / 75 Laboratory Tests Past 24 Hrs 11/01/18 11/01/18 04:25 04:25 Hgb 9.4 L Hct 29.9 L Sodium 134 L Potassium 4.1 Chloride 97 L Carbon Dioxide 27.0 Anion Gap 10 BUN 57 H Creatinine 2.20 H Estim Creat Clear Calc 34.81 Est GFR (MDRD) Af Amer 39 L Est GFR (MDRD) Non-Af 32 L BUN/Creatinine Ratio 25.9 H Glucose 176 H Calcium 8.3 L POC Glucose 11/01/18 11/01/18 11/01/18 11:26 07:02 03:25 POC Glucose 257 H 180 H 173 H 10/31/18 10/31/18 21:26 16:24 POC Glucose 168 H 248 H Assessment/Plan All Active Problems Acute kidney injury (Acute) Chest pain (Acute) Shortness of breath (Acute) Abnormal cardiac enzyme level (Acute) Anemia (Acute) 1-acute kidney injury. Patient has a history of recent acute kidney injury most probably from antibiotics induced ATN. Creatinine during this admission is stable at 2.2. Check UA Patient at risk for worsening kidney function if he would receive IV contrast. Please hold all diuretics, SHEEBA inhibitor/ARB before cardiac cath. Please hydrate the patient with normal saline at 75 cc/h 6 hours before to 6 hours after the procedure check renal function in a.m. 2-hypertension: Blood pressure is well controlled. Please avoid SHEEBA inhibitor/ARB for now 3-chest pain. Patient might need cardiac cath. Please see above instruction to preserve kidney function. Thank you for the consult. Renal team will continue to follow
[2018-11-01 16:56] LABS: Bedside Glucose 185 mg/dL (70-110)
[2018-11-01] MEDS: Morphine 2 MG/ML Syringe IV (21:16)
[2018-11-01] MEDS: Atorvastatin Calcium 80 MG Tablet PO (21:24)
[2018-11-01 21:36] LABS: Bedside Glucose 200 mg/dL (70-110)
[2018-11-02] VITALS (18 sets, daily range): BP systolic 133–143; BP diastolic 58–103; PULSE 60–71; RESP 16–26; TEMP 36.6–37.2; O2SAT 93–97
[2018-11-02 03:20] LABS: Bedside Glucose 153 mg/dL (70-110)
[2018-11-02 05:37] LABS: Absolute Lymphocyte Count 0.89 X10^3/ul (0.83-4.51); Absolute Neutrophil Count 5.5 X10^3/uL (2.0-7.7); Basophil# 0.04 X10^3/uL; Basophil% 0.5 % (0-1); Eosinophil# 0.57 X10^3/uL; Eosinophils% 7.3 % (0-5); Hematocrit 29.5 % (40-54); Hemoglobin 9.3 g/dl (13.0-16.5); Lymphocyte # 0.89 X10^3/ul (4.0); Lymphocyte % 11.3 % (19-41); Mean Corp Hgb Conc 31.5 g/gl (32-36); Mean Corpuscular Hgb 29.6 pg (27.0-32.0); Mean Corpuscular Volume 93.9 fL (80-94); Mean Platelet Vol. 9.7 fl (6.2-12.0); Monocyte# 0.84 X10^3/uL; Monocyte% 10.7 % (0-10); Neutrophil # 5.51 X10^3/uL (2.7-7.7); Neutrophil % 70.1 % (47-70); Platelet Count 200 K/mm3 (150-450); RBC Distribution Width CV 17.1 % (11.6-14.6); RBC Distribution Width SD 56.6 fl (35.1-43.9); Red Blood Count 3.14 M/mm3 (4.6-6.2); White Blood Count 7.9 K/mm3 (4.4-11.0)
[2018-11-02] MEDS: Morphine 2 MG/ML Syringe IV ×5 (05:56→23:05)
[2018-11-02] MEDS: 0.9% NaCl VAD Flush 10 ML IV ×4 (05:57→18:29)
[2018-11-02] MEDS: proMETHazine 25 MG/ML Syringe 6.25 MG IV ×3 (05:57→18:38)
[2018-11-02 06:15] LABS: Mucous, Urine 0 SEEN /hpf (<or=2+); Red Blood Cells-Urine 0 SEEN /hpf (0-5)
[2018-11-02] MEDS: Gabapentin 600 MG Tablet PO ×3 (06:18→22:59)
[2018-11-02] MEDS: hydrALAZINE 25 MG Tablet PO ×3 (06:18→22:59)
[2018-11-02 06:31] LABS: POSITIVE COUNT NO; POSITIVE DIFFERENTIAL NO; POSITIVE MORPHOLOGY NO
[2018-11-02 06:48] LABS: Anion Gap 11 (5-15); BUN 63 mg/dL (7-18); Calcium,Total 7.9 mg/dL (8.5-10.1); Chloride 98 mmol/L (98-107); EST Glomerular Filtration Rate 34 mL/min (>60); Est Glom Filt Rate - Afr Amer 41 mL/min (>60); Estimated Creatinine Clearance 36.47 ml/min; Glucose 146 mg/dL (74-106); Potassium 3.8 mmol/L (3.5-5.1); Sodium Level 135 mmol/L (136-145)
[2018-11-02 07:11] LABS: Bedside Glucose 139 mg/dL (70-110)
[2018-11-02 07:17] LABS: Color, Urine Yellow (Yellow); Glucose, Dipstick Normal (Normal); Ketone-Dipstick Negative (Negative); Leukocyte Esterase-Dipstick 25 /ul (Negative); Nitrite-Dipstick Negative (Negative); Occult Blood-Urine Negative /ul (Negative); Protein-Dipstick 30 mg/dl (Negative); Urine Bilirubin Dipstick Negative (Negative); Urine Clarity Sl. Cloudy (Clear); Urine Urobilinogen 1 mg/dl (Normal)
[2018-11-02 07:19] LABS: Bacteria RARE /hpf (None Seen); Hyaline Cast 0-5 SEEN /lpf (0-5); Squamous Epithelial Cells - UA 0-5 SEEN /hpf (0-5); White Blood Cells 0-5 SEEN /hpf (0-5)
[2018-11-02] MEDS: Aspirin 81 MG TAB.CHEW PO (08:39)
[2018-11-02] MEDS: Tamsulosin HCl 0.4 MG Capsule PO (08:39)
[2018-11-02] MEDS: Ferrous Sulfate 325 MG Tablet PO (08:39)
--- NOTE | 2018-11-02 08:39 | PCM.PROGNOTE ---
Patient Problems: Active and Suspected Problems Acute kidney injury (Acute) Chest pain (Acute) Shortness of breath (Acute) Abnormal cardiac enzyme level (Acute) Anemia (Acute) Subjective: Chief complaint: Follow-up after admission for chest pain with abnormal troponin, acute on chronic systolic CHF, acute on chronic anemia and acute kidney injury. Patient seen and examined. No acute events overnight. To me, he is still complaining of intermittent chest pain and every morning, he has been asking about increasing pain medications. His breathing has been stable. His vital signs are stable. - Physical Exam General: Alert, Oriented x3, Cooperative, No apparent distress HEENT: Atraumatic, PERRLA, EOMI, Normocephalic Oral: Moist Mucosa, No Gingival or Mucosal Lesions/ Ulcerations Neck: Supple, No JVD, Negative Carotid Bruits, Trachea Midline, Thyroid Normal Size and Texture Lungs: Clear to auscultation, No rhonchi, No wheeze, No rales, Diminished Cardiovascular: Regular rate, Regular Rhythm, Normal S1, Normal S2, PMI Normal Abdomen: Bowel Sounds Present, Soft, Non Tender, Non-Distended, No Hepato-splenomegaly, Obese Extremities: No clubbing, No cyanosis, Edema Skin: No rashes, No breakdown Lymphatic: No Cervical, Supraclavicular, or Inguinal Adenopathy Neurological: Cranial nerves II-XII grossly intact, Neuro grossly intact Psych/Mental Status: Normal Affect, Appropriate, Alert and oriented to time, place, person, mood and affect Vital Signs Temp Pulse Resp BP Pulse Ox 98.3 F 71 18 133/74 H 93 11/02/18 05:52 11/02/18 06:18 11/02/18 05:52 11/02/18 05:52 11/02/18 07:40 Oxygen Flow Rate (L/min) 2 Oxygen Delivery Method Room Air Weight: 261 lb 7.492 oz Body Mass Index (BMI) 36.7 Finger Stick Blood Glucose 42 Intake and Output for Last 24 Hours 10/31/18 11/01/18 11/02/18 23:59 23:59 23:59 Intake Total 876 / 876 960 / 960 Output Total 425 / 425 875 / 875 275 / 275 Balance 451 / 451 85 / 85 -275 / -275 Laboratory Tests Past 24 Hrs 11/02/18 11/02/18 11/02/18 05:05 05:05 05:50 WBC 7.9 RBC 3.14 L Hgb 9.3 L Hct 29.5 L MCV 93.9 MCH 29.6 MCHC 31.5 L RDW 17.1 H RDW Differential 56.6 H Plt Count 200 MPV 9.7 Immature Gran % (Auto) 0.100 Neut % (Auto) 70.1 H Lymph % (Auto) 11.3 L Moody % (Auto) 10.7 H Eos % (Auto) 7.3 H Baso % (Auto) 0.5 Absolute Neuts (auto) 5.5 Absolute Lymphs (auto) 0.89 Total Counted Not Reportable Sodium 135 L Potassium 3.8 Chloride 98 Carbon Dioxide 26.0 Anion Gap 11 BUN 63 H Creatinine 2.10 H Estim Creat Clear Calc 36.47 Est GFR (MDRD) Af Amer 41 L Est GFR (MDRD) Non-Af 34 L BUN/Creatinine Ratio 30.0 H Glucose 146 H Calcium 7.9 L Urine Color Yellow Urine Clarity Sl. Cloudy Urine pH 5.0 Ur Specific [place] 1.020 Urine Protein 30 H Urine Glucose (UA) Normal Urine Ketones Negative Urine Occult Blood Negative Urine Nitrite Negative Urine Bilirubin Negative Urine Urobilinogen 1 H Ur Leukocyte Esterase 25 H Urine RBC 0 SEEN Urine WBC 0-5 SEEN Ur Squamous Epith Cells 0-5 SEEN Urine Bacteria RARE Hyaline Casts 0-5 SEEN Urine Mucus 0 SEEN POC Glucose 11/02/18 11/02/18 11/01/18 07:04 03:13 21:23 POC Glucose 139 H 153 H 200 H 11/01/18 11/01/18 16:42 11:26 POC Glucose 185 H 257 H Medical Necessity - Tobacco Use Smoking Status: Never smoker Assessment/Plan All Active Problems Acute kidney injury (Acute) Chest pain (Acute) Shortness of breath (Acute) Abnormal cardiac enzyme level (Acute) Anemia (Acute) This is a 63 years old male patient admitted because of chest pain or shortness of breath, found to have borderline elevated troponin and acute on chronic systolic CHF, hospital course complicated by acute on chronic anemia required blood transfusion as well as acute kidney injury. #1 chest pain/indeterminate troponin: He is still complaining of intermittent chest pain, mainly on exertion and every morning, he has been asking about pain medications.. His vital signs are stable. Remained on aspirin, statins, beta-blockers, nitrates and hydralazine. He had of history of CAD status post CABG and PTCA. Troponin are borderline elevated and trended down. He is on aspirin, statins, Coreg, Lasix, Bumex and Imdur. BUN and creatinine continued to improve very slowly. Cardiology on the case, plan for probable nuclear stress test tomorrow before going directly to cardiac catheterization. #2 acute on chronic systolic CHF/ischemic cardiomyopathy, status post ICD. IV Lasix discontinued, continued on Coreg, nitrates and hydralazine. Shortness of breath improved, today he is on room air. Most recent 2D echocardiogram on September, revealed ejection fraction of 45%. Serum creatinine continued to improve very slowly. Plan as above. #3 acute on chronic anemia/iron deficiency anemia: Recently, hemoglobin has been declining. His baseline hemoglobin around 11-12 g/dL. Patient reported black stool, melena. He had upper EGD at [facility] that revealed multiple gastric ulcers and small duodenal ulcer. He is on PPI. He received 2 unit of packed RBCs, today's hemoglobin is 9.3 g/dL. #4 acute kidney injury: Likely due to Lasix and Bumex and both were held. Today's creatinine is 2.10, minimally improved. Nephrology consulted, recommendation reviewed and appreciated. #5 type 2 diabetes mellitus: Blood sugar has been stable, continue Accu-Cheks. At home, patient has been on glargine insulin 30 units twice daily which are held. #6 hypertension: Blood pressure stable, continue Norvasc, Coreg, nitrate and hydralazine. #7 history of CVA: Stable, continue aspirin and statins. #8 CAD status post CABG and stents: Plan as above. Continue aspirin, statins, beta-blockers, nitrates and hydralazine. #9 history of GI bleed: No evidence of active bleeding. Hemoglobin stabilized after blood transfusion. Patient is on PPI. #10 anxiety/depression: Continue Cymbalta and Zoloft. #12 hyperlipidemia: Continue statins. #13 obstructive sleep apnea: Continue CPAP at night. #14 DVT prophylaxis: SCDs, no chemical prophylaxis. This note was generated with [employer] dictation software. It may contain incorrect words, spelling, and punctuation that were not noted in checking the note before signing. Code Visit Inpatient E&M: 77496 Subs Hosp L2
[2018-11-02] MEDS: Isosorbide Mononitrate 30 MG Tablet PO ×2 (10:21→22:59)
[2018-11-02] MEDS: Pantoprazole Sodium 40 MG Tablet PO ×2 (10:21→23:00)
[2018-11-02] MEDS: amLODIPine 10 MG Tablet PO (10:21)
[2018-11-02] MEDS: DULoxetine Hcl 30 MG Capsule PO (10:21)
[2018-11-02] MEDS: Sertraline 100 MG Tablet PO (10:21)
[2018-11-02] MEDS: Carvedilol 25 MG Tablet PO ×2 (10:22→22:59)
[2018-11-02] MEDS: Nystatin Powder 15gm Bottle 1 APPLIC TOPICAL ×2 (10:22→22:58)
[2018-11-02] MEDS: Insulin Lispro 100 UNIT/ML INSULN.PEN SQ ×3 (10:57→22:57)
[2018-11-02 12:05] LABS: Bedside Glucose 230 mg/dL (70-110)
--- NOTE | 2018-11-02 13:08 | PCM.PN.CARD ---
Subjectve: The patient appears to rest comfortably with no acute symptoms. Objective: Vital Signs Temp Pulse Resp BP Pulse Ox 98 F 69 20 H 136/58 H 93 11/02/18 08:40 11/02/18 11:01 11/02/18 08:40 11/02/18 08:40 11/02/18 08:50 Oxygen Flow Rate (L/min) 3 Oxygen Delivery Method Room Air Weight: 261 lb 7.492 oz Body Mass Index (BMI) 36.7 Finger Stick Blood Glucose 42 Intake and Output for Last 24 Hours 10/31/18 11/01/18 11/02/18 23:59 23:59 23:59 Intake Total 876 / 876 960 / 960 360 / 360 Output Total 425 / 425 875 / 875 550 / 550 Balance 451 / 451 85 / 85 -190 / -190 General: No Acute Distress HEENT: Atraumatic, Normocephalic, PERRL, EOMI, Sclera Non Icteric Oral: Moist Mucosa Neck: Supple, Good ROM, No JVD Lungs: Clear to auscultation Cardiovascular: Regular Rhythm, Normal S1, Normal S2 Abdomen: Bowel Sounds Present, Soft Extremities: Trace RLE Edema, Trace LLE Edema Psych/Mental Status: Appropriate 11/02/18 05:05: WBC 7.9, RBC 3.14 L, Hgb 9.3 L, Hct 29.5 L, MCV 93.9, MCH 29.6, MCHC 31.5 L, RDW 17.1 H, RDW Differential 56.6 H, Plt Count 200, MPV 9.7, Immature Gran % (Auto) 0.100, Neut % (Auto) 70.1 H, Lymph % (Auto) 11.3 L, [place] % (Auto) 10.7 H, Eos % (Auto) 7.3 H, Baso % (Auto) 0.5, Absolute Neuts (auto) 5.5, Total Counted Not Reportable 11/02/18 05:05: Sodium 135 L, Potassium 3.8, Chloride 98, Carbon Dioxide 26.0, Anion Gap 11, BUN 63 H, Creatinine 2.10 H, Est GFR (MDRD) Af Amer 41 L, Est GFR (MDRD) Non-Af 34 L, BUN/Creatinine Ratio 30.0 H, Glucose 146 H, Calcium 7.9 L 11/02/18 05:50: Urine Color Yellow, Urine Clarity Sl. Cloudy, Urine pH 5.0, Ur Specific [place] 1.020, Urine Protein 30 H, Urine Glucose (UA) Normal, Urine Ketones Negative, Urine Occult Blood Negative, Urine Nitrite Negative, Urine Bilirubin Negative, Urine Urobilinogen 1 H, Ur Leukocyte Esterase 25 H, Urine RBC 0 SEEN, Urine WBC 0-5 SEEN Rhythm: Electronic ventricular paced rhythm Medical Necessity - Tobacco Use Smoking Status: Never smoker Assessment/Plan 1. Chest pain/shortness of breath/nausea The patient has a combination of symptoms. The symptoms may be concerning for underlying cardiovascular disease. However at the same time they may be compatible with his multiple noncardiovascular issues as well. From a cardiac standpoint the patient has been noted to have indeterminate troponin I levels. At the present time the patient continues to be monitored. His BUN and creatinine level remains elevated. Thus, prior to proceeding with any further invasive evaluation requiring IV contrast may produce IV contrast related nephropathy it would not be unreasonable to reassess him with a pharmacologic stress nuclear imaging study. This will be scheduled. Depending upon the findings he may or may not need to be considered for repeat cardiac catheterization. However again there is concern about proceeding in this manner based upon his underlying renal insufficiency and the concern of IV contrast related nephropathy. 2. CAD status post PCI and CABG The patient does have a history of underlying CAD, PCI, and CABG as previously noted. Again at the present time he will continue medical management. He will proceed with noninvasive evaluation. 3. Ischemic mediated cardiomyopathy He has recently undergone evaluation of his left ventricular wall motion and systolic function. He will need to continue medical therapy. He does have an ICD in place. 4. Chronic systolic CHF He states while at [facility] his diuretics were discontinued. Based upon concerns of increased volume he did receive diuretic therapy. His creatinine level has increased. His diuretics remain on hold. He is being followed clinically. His creatinine level remains elevated. 5. ICD The patient does have a single-chamber ICD. It can be reassessed as needed. 6. Hyperlipidemia He will continue lowering therapy as deemed appropriate. 7. Hypertension The patient will need to have his blood pressure monitored. His medications can be adjusted as needed. 8. Diabetes mellitus The patient will continue under the care of internal medicine for this. 9. Carotid artery disease The patient does have peripheral arterial occlusive disease and is status post right carotid endarterectomy. He will continue medical management and follow-up as deemed appropriate. 10. Anemia thought secondary to upper GI bleed secondary to peptic ulcer disease His H&H does appear to be improved status post his 2 units of PRBCs. 11. Renal insufficiency The patient's creatinine level remains elevated. Nephrology has evaluated the patient. This note was generated using a voice recognition system and there may be incorrect words, spelling or punctuation that were not noted when reviewing the office note prior to saving.
--- NOTE | 2018-11-02 15:59 | PCM.PN.REN ---
Patient Problems: Active and Suspected Problems Acute kidney injury (Acute) Chest pain (Acute) Shortness of breath (Acute) Abnormal cardiac enzyme level (Acute) Anemia (Acute) Subjective: Patient still has some chest pain. He feels is more swelling Breathing is stable - Physical Exam General: Alert, Oriented x3 HEENT: Atraumatic Oral: Moist Mucosa Neck: Supple, No JVD Lungs: Clear to auscultation, Normal air movement, No rhonchi Cardiovascular: Regular rate, Regular Rhythm, Normal S1, Normal S2, No Ectopic Activity Abdomen: Bowel Sounds Present, Soft Extremities: Edema - +2 edema of lower extremities Skin: No rashes Musculoskeletal: No Tenderness to Palpation of Joints or Extremities Lymphatic: No Cervical, Supraclavicular, or Inguinal Adenopathy Neurological: Cranial nerves II-XII grossly intact, Neuro grossly intact Psych/Mental Status: Normal Affect Vital Signs Temp Pulse Resp BP Pulse Ox 98.9 F 64 16 133/69 H 93 11/02/18 13:41 11/02/18 15:01 11/02/18 13:41 11/02/18 13:41 11/02/18 13:45 Oxygen Flow Rate (L/min) 3 Oxygen Delivery Method Room Air Weight: 118.6 kg Body Mass Index (BMI) 36.7 Finger Stick Blood Glucose 42 Intake and Output for Last 24 Hours 10/31/18 11/01/18 11/02/18 23:59 23:59 23:59 Intake Total 876 / 876 960 / 960 360 / 360 Output Total 425 / 425 875 / 875 550 / 550 Balance 451 / 451 85 / 85 -190 / -190 Laboratory Tests Past 24 Hrs 11/02/18 11/02/18 11/02/18 05:05 05:05 05:50 WBC 7.9 RBC 3.14 L Hgb 9.3 L Hct 29.5 L MCV 93.9 MCH 29.6 MCHC 31.5 L RDW 17.1 H RDW Differential 56.6 H Plt Count 200 MPV 9.7 Immature Gran % (Auto) 0.100 Neut % (Auto) 70.1 H Lymph % (Auto) 11.3 L [place] % (Auto) 10.7 H Eos % (Auto) 7.3 H Baso % (Auto) 0.5 Absolute Neuts (auto) 5.5 Absolute Lymphs (auto) 0.89 Total Counted Not Reportable Sodium 135 L Potassium 3.8 Chloride 98 Carbon Dioxide 26.0 Anion Gap 11 BUN 63 H Creatinine 2.10 H Estim Creat Clear Calc 36.47 Est GFR (MDRD) Af Amer 41 L Est GFR (MDRD) Non-Af 34 L BUN/Creatinine Ratio 30.0 H Glucose 146 H Calcium 7.9 L Urine Color Yellow Urine Clarity Sl. Cloudy Urine pH 5.0 Ur Specific [place] 1.020 Urine Protein 30 H Urine Glucose (UA) Normal Urine Ketones Negative Urine Occult Blood Negative Urine Nitrite Negative Urine Bilirubin Negative Urine Urobilinogen 1 H Ur Leukocyte Esterase 25 H Urine RBC 0 SEEN Urine WBC 0-5 SEEN Ur Squamous Epith Cells 0-5 SEEN Urine Bacteria RARE Hyaline Casts 0-5 SEEN Urine Mucus 0 SEEN POC Glucose 11/02/18 11/02/18 11/02/18 10:54 07:04 03:13 POC Glucose 230 H 139 H 153 H 11/01/18 11/01/18 21:23 16:42 POC Glucose 200 H 185 H Medical Necessity - Tobacco Use Smoking Status: Never smoker Assessment/Plan All Active Problems Acute kidney injury (Acute) Chest pain (Acute) Shortness of breath (Acute) Abnormal cardiac enzyme level (Acute) Anemia (Acute) 1-acute kidney injury. Patient has a history of recent acute kidney injury most probably from antibiotics induced ATN. Creatinine during this admission is stable at 2.1 -2.2. UA showed 30 protein I will start the patient on Lasix 40 mg p.o. daily for volume management check renal function in a.m. 2-hypertension: Blood pressure is well controlled. Please avoid SHEEBA inhibitor/ARB for now 3-chest pain. Ischemia workup as per the cardiology service Thank you for the consult. Renal team will continue to follow
--- NOTE | 2018-11-02 16:19 | NURSING ---
Pt up to BR, tolerated well.
[2018-11-02 16:26] LABS: Bedside Glucose 230 mg/dL (70-110)
[2018-11-02] MEDS: Atorvastatin Calcium 80 MG Tablet PO (22:59)
[2018-11-03] VITALS (12 sets, daily range): BP systolic 113–139; BP diastolic 72–92; PULSE 59–67; RESP 16–20; TEMP 36.4–36.7; O2SAT 90–95
[2018-11-03 00:05] LABS: Bedside Glucose 225 mg/dL (70-110)
[2018-11-03 04:19] LABS: Absolute Lymphocyte Count 0.77 X10^3/ul (0.83-4.51); Absolute Neutrophil Count 5.4 X10^3/uL (2.0-7.7); Basophil# 0.04 X10^3/uL; Basophil% 0.5 % (0-1); Eosinophil# 0.73 X10^3/uL; Eosinophils% 9.4 % (0-5); Hemoglobin 9.3 g/dl (13.0-16.5); Lymphocyte # 0.77 X10^3/ul (4.0); Lymphocyte % 9.9 % (19-41); Mean Corpuscular Hgb 28.7 pg (27.0-32.0); Mean Corpuscular Volume 92.6 fL (80-94); Mean Platelet Vol. 9.3 fl (6.2-12.0); Monocyte# 0.84 X10^3/uL; Monocyte% 10.9 % (0-10); Neutrophil # 5.35 X10^3/uL (2.7-7.7); Neutrophil % 69.2 % (47-70); Platelet Count 167 K/mm3 (150-450); RBC Distribution Width SD 57.8 fl (35.1-43.9); Red Blood Count 3.24 M/mm3 (4.6-6.2); White Blood Count 7.7 K/mm3 (4.4-11.0)
[2018-11-03 04:21] LABS: POSITIVE COUNT NO; POSITIVE DIFFERENTIAL NO; POSITIVE MORPHOLOGY NO
[2018-11-03 04:25] LABS: International Normalized Ratio 1.4; Prothrombin Time (Protime)PT. 16.9 SECONDS (11.7-14.9)
[2018-11-03] MEDS: 0.9% NaCl VAD Flush 10 ML IV ×5 (04:25→17:03)
[2018-11-03 04:40] LABS: Anion Gap 10 (5-15); BUN 64 mg/dL (7-18); BUN/Creat Ratio 33.7 RATIO (10-20); Calcium,Total 8.1 mg/dL (8.5-10.1); Chloride 98 mmol/L (98-107); EST Glomerular Filtration Rate 38 mL/min (>60); Est Glom Filt Rate - Afr Amer 46 mL/min (>60); Estimated Creatinine Clearance 40.31 ml/min; Glucose 172 mg/dL (74-106); Potassium 3.7 mmol/L (3.5-5.1); Sodium Level 135 mmol/L (136-145)
[2018-11-03] MEDS: Aspirin 81 MG TAB.CHEW PO (05:03)
[2018-11-03] MEDS: Gabapentin 600 MG Tablet PO ×2 (05:03→13:15)
[2018-11-03] MEDS: Morphine 2 MG/ML Syringe IV ×2 (05:55→10:34)
[2018-11-03] MEDS: proMETHazine 25 MG/ML Syringe 6.25 MG IV (05:55)
--- NOTE | 2018-11-03 05:55 | EKG12_ITS ---
Test Reason : AM EKG Blood Pressure : / mmHG Vent. Rate : 060 BPM Atrial Rate : 060 BPM P-R Int : 264 ms QRS Dur : 170 ms QT Int : 496 ms P-R-T Axes : 060 256 057 degrees QTc Int : 496 ms Sinus rhythm with 1st degree A-V block Right bundle branch block Septal infarct , age undetermined Abnormal ECG When compared with ECG of 28-OCT-2018 00:50, No significant change was found Confirmed by SHERI KEY, ACE ([id number]), electronic news gathering editor MATHIEU KOENIG ([id number] on 11/04/2018 5:30:16 PM Referred By: GAMAL Confirmed By:ACE WADE MD
[2018-11-03 06:20] LABS: Bedside Glucose 180 mg/dL (70-110)
--- NOTE | 2018-11-03 08:13 | NURSING ---
Pt being taken down for stress test
--- NOTE | 2018-11-03 09:59 | NURSING ---
PT/OT here pt up to chair, tolerated well. Pt requesting pain medication, rates generalized pain a 7 on pain scale.
[2018-11-03] MEDS: Insulin Lispro 100 UNIT/ML INSULN.PEN SQ (10:41)
[2018-11-03 10:55] LABS: Bedside Glucose 213 mg/dL (70-110)
--- NOTE | 2018-11-03 11:19 | PN.RENAL_ITS ---
Patient Problems: Active and Suspected Problems Acute kidney injury (Acute) Chest pain (Acute) Shortness of breath (Acute) Abnormal cardiac enzyme level (Acute) Anemia (Acute) Subjective: Doing well. no nausea No vomiting - Physical Exam General: Alert, Oriented x3 HEENT: Atraumatic Oral: Moist Mucosa Neck: Supple, No JVD Lungs: Clear to auscultation, Normal air movement, No rhonchi, No wheeze Cardiovascular: Regular rate, Regular Rhythm, Normal S1 Abdomen: Bowel Sounds Present, Soft, Non Tender Extremities: No clubbing, No cyanosis, No edema Skin: No rashes Musculoskeletal: No Tenderness to Palpation of Joints or Extremities Lymphatic: No Cervical, Supraclavicular, or Inguinal Adenopathy Neurological: Cranial nerves II-XII grossly intact, Neuro grossly intact Psych/Mental Status: Normal Affect Vital Signs Temp Pulse Resp BP Pulse Ox 98.1 F 67 16 128/72 H 93 11/03/18 09:54 11/03/18 10:56 11/03/18 09:54 11/03/18 09:54 11/03/18 10:00 Oxygen Flow Rate (L/min) 3 Oxygen Delivery Method Room Air Weight: 119.2 kg Body Mass Index (BMI) 36.7 Finger Stick Blood Glucose 42 Intake and Output for Last 24 Hours 11/01/18 11/02/18 11/03/18 23:59 23:59 23:59 Intake Total 960 / 960 720 / 720 120 / 120 Output Total 875 / 875 1050 / 1050 850 / 850 Balance 85 / 85 -330 / -330 -730 / -730 Laboratory Tests Past 24 Hrs 11/03/18 11/03/18 11/03/18 04:10 04:10 04:10 WBC 7.7 RBC 3.24 L Hgb 9.3 L Hct 30.0 L MCV 92.6 MCH 28.7 MCHC 31.0 L RDW 17.0 H RDW Differential 57.8 H Plt Count 167 MPV 9.3 Immature Gran % (Auto) 0.100 Neut % (Auto) 69.2 Lymph % (Auto) 9.9 L [place] % (Auto) 10.9 H Eos % (Auto) 9.4 H Baso % (Auto) 0.5 Absolute Neuts (auto) 5.4 Absolute Lymphs (auto) 0.77 L Total Counted Not Reportable PT 16.9 H INR 1.4 APTT 35.0 Sodium 135 L Potassium 3.7 Chloride 98 Carbon Dioxide 27.0 Anion Gap 10 BUN 64 H Creatinine 1.90 H Estim Creat Clear Calc 40.31 Est GFR (MDRD) Af Amer 46 L Est GFR (MDRD) Non-Af 38 L BUN/Creatinine Ratio 33.7 H Glucose 172 H Calcium 8.1 L POC Glucose 11/03/18 11/03/18 11/02/18 10:40 04:56 22:56 POC Glucose 213 H 180 H 225 H 11/02/18 11/02/18 16:13 10:54 POC Glucose 230 H 230 H Medical Necessity - Tobacco Use Smoking Status: Never smoker Assessment/Plan All Active Problems Acute kidney injury (Acute) Chest pain (Acute) Shortness of breath (Acute) Abnormal cardiac enzyme level (Acute) Anemia (Acute) 1-Acute kidney injury. Patient has a history of recent acute kidney injury most probably from antibiotics induced ATN. Cr continues to improve slowly UA showed 30 protein continue lasix Avoid ACEI/ARB check renal function in a.m. 2-hypertension: Blood pressure is well controlled. Please avoid SHEEBA inhibitor/ARB for now 3-chest pain. Ischemia workup as per the cardiology service Thank you for the consult. Renal team will continue to follow
[2018-11-03] MEDS: hydrALAZINE 25 MG Tablet PO (11:33)
[2018-11-03] MEDS: Carvedilol 25 MG Tablet PO (11:34)
[2018-11-03] MEDS: Isosorbide Mononitrate 30 MG Tablet PO (11:35)
[2018-11-03] MEDS: amLODIPine 10 MG Tablet PO (11:35)
--- NOTE | 2018-11-03 12:52 | STRESSREP_ITS ---
Stress Test Report Pharmacologic myocardial perfusion stress test. 63-year-old man with a history of coronary artery disease status post coronary bypass surgery and ICD implantation. Medications: Norvasc, aspirin, Coreg, Lipitor, Lasix. Stress protocol: Resting EKG demonstrates normal sinus rhythm with a right bundle branch block patent noted. Rate of 63 bpm is noted resting blood pressure 134/80 mmHg. 0.4 mg of regadenoson was infused per usual protocol followed by rapid intravenous saline flush injection continuous EKG monitoring was performed. The patient maintained sinus rhythm throughout the recording. The maximum heart rate attained was 65 bpm which was 41% of maximum predicted heart rate. Patient maintained sinus rhythm throughout the recording. At rest there were no ST or T wave changes noted to suggest abnormal flow reserve at peak infusion nonspecific ST-T wave changes were noted we did not suggest abnormal flow reserve. The resting blood pressure is 134/80 with a final blood pressure 124/72. Myocardial perfusion protocol. 14.8 mCi of technetium 99m sestamibi was injected at rest. 0.4 mg of regadenoson was infused per usual protocol peak infusion 45.0 mCi of technetium 99m sestamibi was injected stress images were obtained stress and rest images were reconstructed and compared in the short axis vertical long horizontal long axis. Gated images were also obtained Perfusion SPECT analysis: Review of the images demonstrate a normal cardiac silhouette size. The septum appears to be well perfused and the inferior wall appears to be largely well perfused. The anterolateral wall also appears to be well perfused in the inferolateral wall as well. There is a large defect involving the mid anterior wall extending to the apex in the anterior apex. This is present on the stress images. The resting images demonstrate minimal improvement at the edges suggestive of mild víctor-infarct ischemia. No large areas of ischemia are noted. Gated SPECT analysis: The gated ejection fraction is noted to be 38% with a dilated cardiomyopathy and severely hypokinetic anterior wall. Conclusion 1 Ischemic cardiomyopathy. Extensive previous anterior and anterior apical infarct with minimal víctor- infarct ischemia.
[2018-11-03] MEDS: Tamsulosin HCl 0.4 MG Capsule PO (13:09)
[2018-11-03] MEDS: DULoxetine Hcl 30 MG Capsule PO (13:09)
[2018-11-03] MEDS: Furosemide 40 MG Tablet PO (13:09)
[2018-11-03] MEDS: Pantoprazole Sodium 40 MG Tablet PO (13:10)
[2018-11-03] MEDS: Nystatin Powder 15gm Bottle 1 APPLIC TOPICAL (13:10)
[2018-11-03] MEDS: Sertraline 100 MG Tablet PO (13:11)
--- NOTE | 2018-11-03 14:07 | CASEMGMT ---
This RN CM to room to confirm discharge plan at this time. Pt declines HHC again at this time. Pt states no further discharge needs/concerns at this time. Pt voices no further questions/concerns/needs at this time. SStaten RN CM
--- NOTE | 2018-11-03 15:24 | PCM.DC ---
- Discharge Diagnoses Current Active Problems: Current Active and Chronic Problems Acute kidney injury (Acute) Chest pain (Acute) Shortness of breath (Acute) Abnormal cardiac enzyme level (Acute) S/P CABG (coronary artery bypass graft) (Chronic) Anemia (Acute) You will use the following diet at home:: Calorie/Carbohydrate Controlled (specify 1200, 1400, etc) - 1800 caitlyn / day, Cardiac Your food should be the consistency of: Regular Your liquids should be the consistency of: Regular/Thin Discharge Activity: Return to Normal Activity Allergies/Adverse Reactions: Allergies metoclopramide HCl [From Reglan] Adverse Reaction (Verified 10/13/18 12:27) goofy, anxious, elevated BP ondansetron HCl [From Zofran] Adverse Reaction (Verified 10/13/18 12:27) goofy, anxious, elevated BP Nreukqw-Vek-Aap Reductase Inhibitor Adverse Reaction (Verified 10/13/18 16:05) rhabdomyolosis Medications to take at Discharge Carvedilol [Coreg (Beta Ronald)] 25 mg PO BID 08/11/15 Isosorbide Mononitrate [Imdur] 30 mg PO BID 03/05/16 Tizanidine HCl 8 mg PO TID PRN 03/05/16 Amlodipine [Norvasc] 10 mg PO DAILY 10/13/18 Atorvastatin Calcium [Lipitor] 80 mg PO QHS 10/13/18 Duloxetine HCl 30 mg PO DAILY 10/13/18 Ferrous Sulfate [Ferosul] 325 mg PO QODAY 10/13/18 Gabapentin 600 mg PO TID 10/13/18 Hydroxyzine HCl 25 mg PO TID PRN 10/13/18 Melatonin 20 mg PO QHS PRN 10/13/18 Sertraline HCl 100 mg PO DAILY 10/13/18 hydrALAZINE [Apresoline] 25 mg PO TID 10/13/18 Aspirin [Aspirin, Baby] 81 mg PO DAILY@0800 tab.chew 11/03/18 Furosemide [Lasix] 40 mg PO DAILY #30 tablet 11/03/18 Insulin Glargine,Hum.rec.anlog [Basaglar Kwikpen U-100] 10 unit SC QHS #1 pen 11/03/18 Pantoprazole Sodium [Protonix] 40 mg PO BID #60 tablet 11/03/18 Tamsulosin HCl [Flomax] 0.4 mg PO DAILY@0830 #30 capsule 11/03/18 The following prescriptions were given: Furosemide [Lasix] 40 mg PO DAILY #30 tablet Pantoprazole Sodium [Protonix] 40 mg PO BID #60 tablet Tamsulosin HCl [Flomax] 0.4 mg PO DAILY@0830 #30 capsule Orders to be completed after discharge: Basic Metabolic Profile (BMP) Time Frame: 5 Days, Location: Laboratory CBC-Complete Blood Cnt No Diff Time Frame: 5 Days, Location: Laboratory Primary Care Physician: [facility] Doctor,Out of [Primary Care Provider] - Please follow up with your Primary Care Physician in: 1-2 weeks Test Results: Test results from this visit will be discussed in further detail at your follow-up appointment, if applicable. Please Follow Up With: Gumaro Ott MD When: 2 weeks Please Follow Up With: Neda surgeon - concerning ulcers. When: As previously directed Please Follow Up With: Syed Neville MD When: 2 weeks Proposed Discharge Date: 11/03/18
--- NOTE | 2018-11-03 15:28 | DCINST_ITS ---
- Discharge Diagnoses Current Active Problems: Current Active and Chronic Problems Acute kidney injury (Acute) Chest pain (Acute) Shortness of breath (Acute) Abnormal cardiac enzyme level (Acute) S/P CABG (coronary artery bypass graft) (Chronic) Anemia (Acute) You will use the following diet at home:: Calorie/Carbohydrate Controlled (specify 1200, 1400, etc) - 1800 caitlyn / day, Cardiac Your food should be the consistency of: Regular Your liquids should be the consistency of: Regular/Thin Discharge Activity: Return to Normal Activity Allergies/Adverse Reactions: Allergies metoclopramide HCl [From Reglan] Adverse Reaction (Verified 10/13/18 12:27) goofy, anxious, elevated BP ondansetron HCl [From Zofran] Adverse Reaction (Verified 10/13/18 12:27) goofy, anxious, elevated BP Lvsjtvb-Tnz-Dop Reductase Inhibitor Adverse Reaction (Verified 10/13/18 16:05) rhabdomyolosis Medications to take at Discharge Carvedilol [Coreg (Beta Ronald)] 25 mg PO BID 08/11/15 Isosorbide Mononitrate [Imdur] 30 mg PO BID 03/05/16 Tizanidine HCl 8 mg PO TID PRN 03/05/16 Amlodipine [Norvasc] 10 mg PO DAILY 10/13/18 Atorvastatin Calcium [Lipitor] 80 mg PO QHS 10/13/18 Duloxetine HCl 30 mg PO DAILY 10/13/18 Ferrous Sulfate [Ferosul] 325 mg PO QODAY 10/13/18 Gabapentin 600 mg PO TID 10/13/18 Hydroxyzine HCl 25 mg PO TID PRN 10/13/18 Melatonin 20 mg PO QHS PRN 10/13/18 Sertraline HCl 100 mg PO DAILY 10/13/18 hydrALAZINE [Apresoline] 25 mg PO TID 10/13/18 Aspirin [Aspirin, Baby] 81 mg PO DAILY@0800 tab.chew 11/03/18 Furosemide [Lasix] 40 mg PO DAILY #30 tablet 11/03/18 Insulin Glargine,Hum.rec.anlog [Basaglar Kwikpen U-100] 10 unit SC QHS #1 pen 11/03/18 Pantoprazole Sodium [Protonix] 40 mg PO BID #60 tablet 11/03/18 Tamsulosin HCl [Flomax] 0.4 mg PO DAILY@0830 #30 capsule 11/03/18 The following prescriptions were given: Furosemide [Lasix] 40 mg PO DAILY #30 tablet Pantoprazole Sodium [Protonix] 40 mg PO BID #60 tablet Tamsulosin HCl [Flomax] 0.4 mg PO DAILY@0830 #30 capsule Orders to be completed after discharge: Basic Metabolic Profile (BMP) Time Frame: 5 Days, Location: Laboratory CBC-Complete Blood Cnt No Diff Time Frame: 5 Days, Location: Laboratory Primary Care Physician: [facility] Doctor,Out of [Primary Care Provider] - Please follow up with your Primary Care Physician in: 1-2 weeks Test Results: Test results from this visit will be discussed in further detail at your follow- up appointment, if applicable. Please Follow Up With: Gumaro Ott MD When: 2 weeks Please Follow Up With: Neda surgeon - concerning ulcers. When: As previously directed Please Follow Up With: Syed Neville MD When: 2 weeks Proposed Discharge Date: 11/03/18
--- NOTE | 2018-11-03 15:28 | PCM.DC.SUM ---
<Antonio Ham - Last Filed: 11/03/18 15:33> Discharge Date and Diagnosis - Problem List Patient Problems: Active and Suspected Problems Acute kidney injury (Acute) Chest pain (Acute) Shortness of breath (Acute) Abnormal cardiac enzyme level (Acute) Anemia (Acute) Date of Admission: 10/27/18 Date of Discharge: 11/03/18 - Primary Discharge Diagnosis Active and Suspected Problems Chest pain with elevated troponin Acute on chronic heart failure with intermediate ejection fraction Acute kidney injury secondary to Lasix administration Hypertension Ischemic cardiomyopathy AICD in place Urinary retention Hyperlipidemia Type 2 diabetes with hypoglycemia Anxiety and depression CAD with prior stents and prior CABG Obstructive sleep apnea History of CVA History of GI bleed secondary to ulcers with chronic anemia - Secondary Discharge Diagnosis Chronic Problems Cellulitis of right heel (Chronic) S/P CABG (coronary artery bypass graft) (Chronic) S/P PTCA (percutaneous transluminal coronary angioplasty) (Chronic) Cardiomyopathy (Chronic) ICD (implantable cardioverter-defibrillator) in place (Chronic) mediport placement (Chronic) Hyperlipidemia (Chronic) DM type 2 (diabetes mellitus, type 2) (Chronic) Chronic CHF (congestive heart failure) (Chronic) ef=25% as of 04/04 Carotid artery stenosis (Chronic) R CEA CAD (coronary artery disease) (Chronic) extensive disease multiple stents Hx of CABG (Chronic) hx epidural abscess (Chronic) Obesity (Chronic) Benign hypertension (Chronic) Hospital Course and Treatment Imaging Results: RAD/Chest 1 View (Portable) IMPRESSION: No acute cardiopulmonary process. US/Abdomen Limited IMPRESSION: Hepatomegaly and lobular hepatic contour. Mild cirrhosis not excluded. Status post cholecystectomy. Pancreas is obscured. Small right pleural effusion. [facility] 10/28/18 05:19 Consult: Onc/Wound/black belt Routine Comment: pressure injuries to bilateral heels Operations: None Procedures: Stress test Summary of Care Provided: Hospital course: The patient is a 63 year old M with extensive past medical history as above who presented to the emergency room with increased left-sided chest pain and shortness of breath and lower extremity edema. He had recently been [facility] with a CHF exacerbation which led to need for dialysis. He also recently had an EGD which demonstrated ulcers. He had a negative EKG, elevated troponin, evidence of congestive heart failure. He was admitted to the PCU and started on IV Lasix and cardiology was consulted. His shortness of breath improved however his renal function did not tolerate the Lasix therapy. He appeared to have some urinary retention and was started on Flomax while here. He also had worsening of chronic anemia and was placed on a Protonix drip given his history of GI bleeding, and his aspirin was decreased to 81 mg from full strength. Protonix was transitioned to p.o. twice daily. He did receive 2 units of packed red blood cells while here and his hemoglobin has remained stable since. With his indeterminate troponins and ongoing chest pain cardiology desired to perform heart catheterization however his renal function continued to decline. Nephrology was consulted and adjusted his Lasix dose. Eventually his renal function stabilized and began to improve. Cardiology decided to pursue a stress test in lieu of heart catheterization. The stress test was negative and cardiology did not feel that any further workup was indicated at this time. An echo was not obtained this admission as he had one 1 month prior. He was discharged home in stable condition and did not desire any home health care services. He was prescribed daily Lasix, Flomax, Protonix. He also experienced hypoglycemia with his home Lantus dose and so this was held while here in exchange for sliding scale. He remained persistently in the 200s with his blood sugar so at discharge he will go back on Lantus but at a much lower dose. He will need this followed up with his with his PCP as well as for his other chronic medical conditions. He will need to follow-up with cardiology in 2 weeks, he will also need to follow-up with nephrology in 2 weeks. He will need to have an outpatient CBC and BMP to follow his anemia and his kidney function in 5 days. He will need to maintain his previously scheduled appointments with his surgeons that took care of him at [facility] as well. This patient was seen by Antonio Ham PA-C under the supervision of Doctor Parrish. [] Patient Problems: Active and Suspected Problems Acute kidney injury (Acute) Chest pain (Acute) Shortness of breath (Acute) Abnormal cardiac enzyme level (Acute) Anemia (Acute) - Physical Exam General: Alert, Oriented x3, Cooperative HEENT: Atraumatic, PERRLA, EOMI, Normocephalic Neck: Supple, No JVD, Negative Carotid Bruits Lungs: Clear to auscultation, Normal air movement Cardiovascular: Regular rate, No murmurs Abdomen: Bowel Sounds Present, Soft, Non Tender Extremities: No edema, Capillary Refill Less than 3 Seconds Skin: No rashes, No breakdown Musculoskeletal: No Tenderness to Palpation of Joints or Extremities Neurological: Cranial nerves II-XII grossly intact Psych/Mental Status: Normal Affect, Appropriate Vital Signs Temp Pulse Resp BP Pulse Ox 98.1 F 65 16 128/72 H 93 11/03/18 09:54 11/03/18 11:33 11/03/18 09:54 11/03/18 09:54 11/03/18 14:00 Oxygen Flow Rate (L/min) 3 Oxygen Delivery Method Room Air Weight: 262 lb 12.656 oz Body Mass Index (BMI) 36.7 Finger Stick Blood Glucose 42 Intake and Output for Last 24 Hours 11/01/18 11/02/18 11/03/18 23:59 23:59 23:59 Intake Total 960 / 960 720 / 720 120 / 120 Output Total 875 / 875 1050 / 1050 850 / 850 Balance 85 / 85 -330 / -330 -730 / -730 Laboratory Tests Past 24 Hrs 11/03/18 11/03/18 11/03/18 04:10 04:10 04:10 WBC 7.7 RBC 3.24 L Hgb 9.3 L Hct 30.0 L MCV 92.6 MCH 28.7 MCHC 31.0 L RDW 17.0 H RDW Differential 57.8 H Plt Count 167 MPV 9.3 Immature Gran % (Auto) 0.100 Neut % (Auto) 69.2 Lymph % (Auto) 9.9 L [place] % (Auto) 10.9 H Eos % (Auto) 9.4 H Baso % (Auto) 0.5 Absolute Neuts (auto) 5.4 Absolute Lymphs (auto) 0.77 L Total Counted Not Reportable PT 16.9 H INR 1.4 APTT 35.0 Sodium 135 L Potassium 3.7 Chloride 98 Carbon Dioxide 27.0 Anion Gap 10 BUN 64 H Creatinine 1.90 H Estim Creat Clear Calc 40.31 Est GFR (MDRD) Af Amer 46 L Est GFR (MDRD) Non-Af 38 L BUN/Creatinine Ratio 33.7 H Glucose 172 H Calcium 8.1 L POC Glucose 11/03/18 11/03/1819 10:40 04:56 22:56 POC Glucose 213 H 180 H 225 H 11/02/18 16:13 POC Glucose 230 H Discharge Diet: Low fat/ Low Cholesterol, 1800 Calorie Control Diet, 2000 mg Sodium Diet Discharge Activity: Return to Normal Activity Home Medications: Medications to take at Discharge Carvedilol [Coreg (Beta Ronald)] 25 mg PO BID 08/11/15 Isosorbide Mononitrate [Imdur] 30 mg PO BID 03/05/16 Tizanidine HCl 8 mg PO TID PRN 03/05/16 Amlodipine [Norvasc] 10 mg PO DAILY 10/13/18 Atorvastatin Calcium [Lipitor] 80 mg PO QHS 10/13/18 Duloxetine HCl 30 mg PO DAILY 10/13/18 Ferrous Sulfate [Ferosul] 325 mg PO QODAY 10/13/18 Gabapentin 600 mg PO TID 10/13/18 Hydroxyzine HCl 25 mg PO TID PRN 10/13/18 Melatonin 20 mg PO QHS PRN 10/13/18 Sertraline HCl 100 mg PO DAILY 10/13/18 hydrALAZINE [Apresoline] 25 mg PO TID 10/13/18 Aspirin [Aspirin, Baby] 81 mg PO DAILY@0800 tab.chew 11/03/18 Furosemide [Lasix] 40 mg PO DAILY #30 tablet 11/03/18 Insulin Glargine,Hum.rec.anlog [Basaglar Kwikpen U-100] 10 unit SC QHS #1 pen 11/03/18 Pantoprazole Sodium [Protonix] 40 mg PO BID #60 tablet 11/03/18 Tamsulosin HCl [Flomax] 0.4 mg PO DAILY@0830 #30 capsule 11/03/18 Following Prescrptions Were Given to Patient: Furosemide [Lasix] 40 mg PO DAILY #30 tablet Pantoprazole Sodium [Protonix] 40 mg PO BID #60 tablet Tamsulosin HCl [Flomax] 0.4 mg PO DAILY@0830 #30 capsule Other Amb Orders: Basic Metabolic Profile (BMP) Time Frame: 5 Days, Location: Laboratory CBC-Complete Blood Cnt No Diff Time Frame: 5 Days, Location: Laboratory Primary Care Physician: [facility] Doctor,Out of [Primary Care Provider] - Please follow up with your Primary Care Physician in: 1-2 weeks Please Follow Up With: Gumaro Ott MD When: 2 weeks Please Follow Up With: Neda surgeon - concerning ulcers. When: As previously directed Please Follow Up With: Syed Neville MD When: 2 weeks Disposition: Home Minutes spent on discharge:: 35 Patient Condition:: Stable Medical Necessity - Tobacco Use Smoking Status: Never smoker Meaningful Use Info Meaningful Use Diagnoses (Choose all that apply): CHF - CHF SHEEBA/ARB ordered at discharge?: No Reason SHEEBA/ARB not ordered?: Worsening renal disease Documented LVEF (%): 45 <ShivaniJohnny - Last Filed: 11/03/18 15:48> Discharge Date and Diagnosis - Primary Discharge Diagnosis Active and Suspected Problems Acute kidney injury (Acute) Chest pain (Acute) Shortness of breath (Acute) Abnormal cardiac enzyme level (Acute) Anemia (Acute) - Secondary Discharge Diagnosis Chronic Problems Cellulitis of right heel (Chronic) S/P CABG (coronary artery bypass graft) (Chronic) S/P PTCA (percutaneous transluminal coronary angioplasty) (Chronic) Cardiomyopathy (Chronic) ICD (implantable cardioverter-defibrillator) in place (Chronic) mediport placement (Chronic) Hyperlipidemia (Chronic) DM type 2 (diabetes mellitus, type 2) (Chronic) Chronic CHF (congestive heart failure) (Chronic) ef=25% as of 04/04 Carotid artery stenosis (Chronic) R CEA CAD (coronary artery disease) (Chronic) extensive disease multiple stents Hx of CABG (Chronic) hx epidural abscess (Chronic) Obesity (Chronic) Benign hypertension (Chronic) Hospital Course and Treatment Consultations 10/28/18 05:19 Consult: Onc/Wound/black belt Routine Comment: pressure injuries to bilateral heels Summary of Care Provided: This patient was seen in conjunction with Antonio Ham PA-C . I have independently interviewed and examined the patient and reviewed pertinent historical, laboratory, and other data. Please refer to Antonio Ham PA-C note for details of this patient's presentation, findings, and recommendations. I have reviewed Antonio Ham PA-C note and concur with documented findings. In brief, patient is he patient is a 63 year old M with extensive medical past history admitted with progressive shortness of breath and chest pain. Patient admitted to a monitored bed for subsequent evaluation Patient was seen and examined on the day of his discharge instructions reviewed with him. Hospital course as elicited above by Antonio Fatoumata - Physical Exam Vital Signs Temp Pulse Resp BP Pulse Ox 97.6 F L 64 20 H 113/92 H 90 11/03/18 15:31 11/03/18 15:31 11/03/18 15:31 11/03/18 15:31 11/03/18 15:42 Oxygen Flow Rate (L/min) 3 Oxygen Delivery Method Room Air Weight: 119.2 kg Body Mass Index (BMI) 36.7 Finger Stick Blood Glucose 42 Intake and Output for Last 24 Hours 11/01/18 11/02/18 11/03/18 23:59 23:59 23:59 Intake Total 960 / 960 720 / 720 120 / 120 Output Total 875 / 875 1050 / 1050 850 / 850 Balance 85 / 85 -330 / -330 -730 / -730 Laboratory Tests Past 24 Hrs 11/03/18 11/03/18 11/03/18 04:10 04:10 04:10 WBC 7.7 RBC 3.24 L Hgb 9.3 L Hct 30.0 L MCV 92.6 MCH 28.7 MCHC 31.0 L RDW 17.0 H RDW Differential 57.8 H Plt Count 167 MPV 9.3 Immature Gran % (Auto) 0.100 Neut % (Auto) 69.2 Lymph % (Auto) 9.9 L [place] % (Auto) 10.9 H Eos % (Auto) 9.4 H Baso % (Auto) 0.5 Absolute Neuts (auto) 5.4 Absolute Lymphs (auto) 0.77 L Total Counted Not Reportable PT 16.9 H INR 1.4 APTT 35.0 Sodium 135 L Potassium 3.7 Chloride 98 Carbon Dioxide 27.0 Anion Gap 10 BUN 64 H Creatinine 1.90 H Estim Creat Clear Calc 40.31 Est GFR (MDRD) Af Amer 46 L Est GFR (MDRD) Non-Af 38 L BUN/Creatinine Ratio 33.7 H Glucose 172 H Calcium 8.1 L POC Glucose 11/03/18 11/03/18 11/02/18 10:40 04:56 22:56 POC Glucose 213 H 180 H 225 H 11/02/18 16:13 POC Glucose 230 H Code Visit Inpatient E&M: 97899 Disch Hosp
--- NOTE | 2018-11-03 15:33 | DS.PCM_ITS ---
<Antonio Ham - Last Filed: 11/03/18 15:33> Discharge Date and Diagnosis - Problem List Patient Problems: Active and Suspected Problems Acute kidney injury (Acute) Chest pain (Acute) Shortness of breath (Acute) Abnormal cardiac enzyme level (Acute) Anemia (Acute) Date of Admission: 10/27/18 Date of Discharge: 11/03/18 - Primary Discharge Diagnosis Active and Suspected Problems Chest pain with elevated troponin Acute on chronic heart failure with intermediate ejection fraction Acute kidney injury secondary to Lasix administration Hypertension Ischemic cardiomyopathy AICD in place Urinary retention Hyperlipidemia Type 2 diabetes with hypoglycemia Anxiety and depression CAD with prior stents and prior CABG Obstructive sleep apnea History of CVA History of GI bleed secondary to ulcers with chronic anemia - Secondary Discharge Diagnosis Chronic Problems Cellulitis of right heel (Chronic) S/P CABG (coronary artery bypass graft) (Chronic) S/P PTCA (percutaneous transluminal coronary angioplasty) (Chronic) Cardiomyopathy (Chronic) ICD (implantable cardioverter-defibrillator) in place (Chronic) mediport placement (Chronic) Hyperlipidemia (Chronic) DM type 2 (diabetes mellitus, type 2) (Chronic) Chronic CHF (congestive heart failure) (Chronic) ef=25% as of 04/04 Carotid artery stenosis (Chronic) R CEA CAD (coronary artery disease) (Chronic) extensive disease multiple stents Hx of CABG (Chronic) hx epidural abscess (Chronic) Obesity (Chronic) Benign hypertension (Chronic) Hospital Course and Treatment Imaging Results: RAD/Chest 1 View (Portable) IMPRESSION: No acute cardiopulmonary process. US/Abdomen Limited IMPRESSION: Hepatomegaly and lobular hepatic contour. Mild cirrhosis not excluded. Status post cholecystectomy. Pancreas is obscured. Small right pleural effusion. [facility] 10/28/18 05:19 Consult: Onc/Wound/central lab technician Routine Comment: pressure injuries to bilateral heels Operations: None Procedures: Stress test Summary of Care Provided: Hospital course: The patient is a 63 year old M with extensive past medical history as above who presented to the emergency room with increased left-sided chest pain and shortness of breath and lower extremity edema. He had recently been [facility] with a CHF exacerbation which led to need for dialysis. He also rec ently had an EGD which demonstrated ulcers. He had a negative EKG, elevated troponin, evidence of congestive heart failure. He was admitted to the PCU and started on IV Lasix and cardiology was consulted. His shortness of breath improved however his renal function did not tolerate the Lasix therapy. He appeared to have some urinary retention and was started on Flomax while here. He also had worsening of chronic anemia and was placed on a Protonix drip given his history of GI bleeding, and his aspirin was decreased to 81 mg from full strength. Protonix was transitioned to p.o. twice daily. He did receive 2 units of packed red blood cells while here and his hemoglobin has remained stable since. With his indeterminate troponins and ongoing chest pain cardiology desired to perform heart catheterization however his renal function continued to decline. Nephrology was consulted and adjusted his Lasix dose. Eventually his renal function stabilized and began to improve. Cardiology de cided to pursue a stress test in lieu of heart catheterization. The stress test was negative and cardiology did not feel that any further workup was indicated at this time. An echo was not obtained this admission as he had one 1 month prior. He was discharged home in stable condition and did not desire any home health care services. He was prescribed daily Lasix, Flomax, Protonix. He also experienced hypoglycemia with his home Lantus dose and so this was held while here in exchange for sliding scale. He remained persistently in the 200s with his blood sugar so at discharge he will go back on Lantus but at a much lower dose. He will need this followed up with his with his PCP as well as for his other chronic medical conditions. He will need to follow-up with cardiology in 2 weeks, he will also need to follow-up with nephrology in 2 weeks. He will need to have an outpatient CBC and BMP to follow his anemia and his kidney function in 5 days. He will need to maintain his previously scheduled appointments with his surgeons that took care of him at [facility] as well. This patient was seen by Antonio Ham PA-C under the supervision of Doctor Parrish. [] Patient Problems: Active and Suspected Problems Acute kidney injury (Acute) Chest pain (Acute) Shortness of breath (Acute) Abnormal cardiac enzyme level (Acute) Anemia (Acute) - Physical Exam General: Alert, Oriented x3, Cooperative HEENT: Atraumatic, PERRLA, EOMI, Normocephalic Neck: Supple, No JVD, Negative Carotid Bruits Lungs: Clear to auscultation, Normal air movement Cardiovascular: Regular rate, No murmurs Abdomen: Bowel Sounds Present, Soft, Non Tender Extremities: No edema, Capillary Refill Less than 3 Seconds Skin: No rashes, No breakdown Musculoskeletal: No Tenderness to Palpation of Joints or Extremities Neurological: Cranial nerves II-XII grossly intact Psych/Mental Status: Normal Affect, Appropriate Vital Signs Temp Pulse Resp BP Pulse Ox 98.1 F 65 16 128/72 H 93 11/03/18 09:54 11/03/18 11:33 11/03/18 09:54 11/03/18 09:54 11/03/18 14:00 Oxygen Flow Rate (L/min) 3 Oxygen Delivery Method Room Air Weight: 262 lb 12.656 oz Body Mass Index (BMI) 36.7 Finger Stick Blood Glucose 42 Intake and Output for Last 24 Hours 11/01/18 11/02/18 11/03/18 23:59 23:59 23:59 Intake Total 960 / 960 720 / 720 120 / 120 Output Total 875 / 875 1050 / 1050 850 / 850 Balance 85 / 85 -330 / -330 -730 / -730 Laboratory Tests Past 24 Hrs 11/03/18 11/03/18 11/03/18 04:10 04:10 04:10 WBC 7.7 RBC 3.24 L Hgb 9.3 L Hct 30.0 L MCV 92.6 MCH 28.7 MCHC 31.0 L RDW 17.0 H RDW Differential 57.8 H Plt Count 167 MPV 9.3 Immature Gran % (Auto) 0.100 Neut % (Auto) 69.2 Lymph % (Auto) 9.9 L [place] % (Auto) 10.9 H Eos % (Auto) 9.4 H Baso % (Auto) 0.5 Absolute Neuts (auto) 5.4 Absolute Lymphs (auto) 0.77 L Total Counted Not Reportable PT 16.9 H INR 1.4 APTT 35.0 Sodium 135 L Potassium 3.7 Chloride 98 Carbon Dioxide 27.0 Anion Gap 10 BUN 64 H Creatinine 1.90 H Estim Creat Clear Calc 40.31 Est GFR (MDRD) Af Amer 46 L Est GFR (MDRD) Non-Af 38 L BUN/Creatinine Ratio 33.7 H Glucose 172 H Calcium 8.1 L POC Glucose 11/03/18 11/03/18 11/02/18 10:40 04:56 22:56 POC Glucose 213 H 180 H 225 H 11/02/18 16:13 POC Glucose 230 H Discharge Diet: Low fat/ Low Cholesterol, 1800 Calorie Control Diet, 2000 mg Sodium Diet Discharge Activity: Return to Normal Activity Home Medications: Medications to take at Discharge Carvedilol [Coreg (Beta Ronald)] 25 mg PO BID 08/11/15 Isosorbide Mononitrate [Imdur] 30 mg PO BID 03/05/16 Tizanidine HCl 8 mg PO TID PRN 03/05/16 Amlodipine [Norvasc] 10 mg PO DAILY 10/13/18 Atorvastatin Calcium [Lipitor] 80 mg PO QHS 10/13/18 Duloxetine HCl 30 mg PO DAILY 10/13/18 Ferrous Sulfate [Ferosul] 325 mg PO QODAY 10/13/18 Gabapentin 600 mg PO TID 10/13/18 Hydroxyzine HCl 25 mg PO TID PRN 10/13/18 Melatonin 20 mg PO QHS PRN 10/13/18 Sertraline HCl 100 mg PO DAILY 10/13/18 hydrALAZINE [Apresoline] 25 mg PO TID 10/13/18 Aspirin [Aspirin, Baby] 81 mg PO DAILY@0800 tab.chew 11/03/18 Furosemide [Lasix] 40 mg PO DAILY #30 tablet 11/03/18 Insulin Glargine,Hum.rec.anlog [Basaglar Kwikpen U-100] 10 unit SC QHS #1 pen 11/03/18 Pantoprazole Sodium [Protonix] 40 mg PO BID #60 tablet 11/03/18 Tamsulosin HCl [Flomax] 0.4 mg PO DAILY@0830 #30 capsule 11/03/18 Following Prescrptions Were Given to Patient: Furosemide [Lasix] 40 mg PO DAILY #30 tablet Pantoprazole Sodium [Protonix] 40 mg PO BID #60 tablet Tamsulosin HCl [Flomax] 0.4 mg PO DAILY@0830 #30 capsule Other Amb Orders: Basic Metabolic Profile (BMP) Time Frame: 5 Days, Location: Laboratory CBC-Complete Blood Cnt No Diff Time Frame: 5 Days, Location: Laboratory Primary Care Physician: [facility] Doctor,Out of [Primary Care Provider] - Please follow up with your Primary Care Physician in: 1-2 weeks Please Follow Up With: Gumaro Ott MD When: 2 weeks Please Follow Up With: Neda surgeon - concerning ulcers. When: As previously directed Please Follow Up With: Syed Neville MD When: 2 weeks Disposition: Home Minutes spent on discharge:: 35 Patient Condition:: Stable Medical Necessity - Tobacco Use Smoking Status: Never smoker Meaningful Use Info Meaningful Use Diagnoses (Choose all that apply): CHF - CHF SHEEBA/ARB ordered at discharge?: No Reason SHEEBA/ARB not ordered?: Worsening renal disease Documented LVEF (%): 45 <Johnny Parrish - Last Filed: 11/03/18 15:48> Discharge Date and Diagnosis - Primary Discharge Diagnosis Active and Suspected Problems Acute kidney injury (Acute) Chest pain (Acute) Shortness of breath (Acute) Abnormal cardiac enzyme level (Acute) Anemia (Acute) - Secondary Discharge Diagnosis Chronic Problems Cellulitis of right heel (Chronic) S/P CABG (coronary artery bypass graft) (Chronic) S/P PTCA (percutaneous transluminal coronary angioplasty) (Chronic) Cardiomyopathy (Chronic) ICD (implantable cardioverter-defibrillator) in place (Chronic) mediport placement (Chronic) Hyperlipidemia (Chronic) DM type 2 (diabetes mellitus, type 2) (Chronic) Chronic CHF (congestive heart failure) (Chronic) ef=25% as of 04/04 Carotid artery stenosis (Chronic) R CEA CAD (coronary artery disease) (Chronic) extensive disease multiple stents Hx of CABG (Chronic) hx epidural abscess (Chronic) Obesity (Chronic) Benign hypertension (Chronic) Hospital Course and Treatment Consultations 10/28/18 05:19 Consult: Onc/Wound/central lab technician Routine Comment: pressure injuries to bilateral heels Summary of Care Provided: This patient was seen in conjunction with Antonio Hma PA-C . I have independently interviewed and examined the patient and reviewed pertinent historical, laboratory, and other data. Please refer to Antonio Ham PA-C note for details of this patient's presentation, findings, and recommendations. I have reviewed Antonio Ham PA-C note and concur with documented findings. In brief, patient is he patient is a 63 year old M with extensive medical past history admitted with progressive shortness of breath and chest pain. Patient admitted to a monitored bed for subsequent evaluation Patient was seen and examined on the day of his discharge instructions reviewed with him. Hospital course as elicited above by Antonio Ham - Physical Exam Vital Signs Temp Pulse Resp BP Pulse Ox 97.6 F L 64 20 H 113/92 H 90 11/03/18 15:31 11/03/18 15:31 11/03/18 15:31 11/03/18 15:31 11/03/18 15:42 Oxygen Flow Rate (L/min) 3 Oxygen Delivery Method Room Air Weight: 119.2 kg Body Mass Index (BMI) 36.7 Finger Stick Blood Glucose 42 Intake and Output for Last 24 Hours 11/01/18 11/02/18 11/03/18 23:59 23:59 23:59 Intake Total 960 / 960 720 / 720 120 / 120 Output Total 875 / 875 1050 / 1050 850 / 850 Balance 85 / 85 -330 / -330 -730 / -730 Laboratory Tests Past 24 Hrs 11/03/18 11/03/18 11/03/18 04:10 04:10 04:10 WBC 7.7 RBC 3.24 L Hgb 9.3 L Hct 30.0 L MCV 92.6 MCH 28.7 MCHC 31.0 L RDW 17.0 H RDW Differential 57.8 H Plt Count 167 MPV 9.3 Immature Gran % (Auto) 0.100 Neut % (Auto) 69.2 Lymph % (Auto) 9.9 L [place] % (Auto) 10.9 H Eos % (Auto) 9.4 H Baso % (Auto) 0.5 Absolute Neuts (auto) 5.4 Absolute Lymphs (auto) 0.77 L Total Counted Not Reportable PT 16.9 H INR 1.4 APTT 35.0 Sodium 135 L Potassium 3.7 Chloride 98 Carbon Dioxide 27.0 Anion Gap 10 BUN 64 H Creatinine 1.90 H Estim Creat Clear Calc 40.31 Est GFR (MDRD) Af Amer 46 L Est GFR (MDRD) Non-Af 38 L BUN/Creatinine Ratio 33.7 H Glucose 172 H Calcium 8.1 L POC Glucose 11/03/18 11/03/18 11/02/18 10:40 04:56 22:56 POC Glucose 213 H 180 H 225 H 11/02/18 16:13 POC Glucose 230 H Code Visit Inpatient E&M: 07118 Disch Hosp
--- NOTE | 2018-11-03 15:56 | NURSING ---
Pt to be discharged to home. Pt will call his daughter to come and get him.
--- NOTE | 2018-11-03 17:12 | PN.CARD_ITS ---
Subjectve: The patient was evaluated earlier this day. He was up in his chair. He appeared to be somewhat more awake and alert and interactive. She had no new acute complaints. Objective: Vital Signs Temp Pulse Resp BP Pulse Ox 97.6 F L 64 20 H 113/92 H 90 11/03/18 15:31 11/03/18 15:31 11/03/18 15:31 11/03/18 15:31 11/03/18 15:42 Oxygen Flow Rate (L/min) 3 Oxygen Delivery Method Room Air Weight: 262 lb 12.656 oz Body Mass Index (BMI) 36.7 Finger Stick Blood Glucose 42 Intake and Output for Last 24 Hours 11/01/18 11/02/18 11/03/18 23:59 23:59 23:59 Intake Total 960 / 960 720 / 720 120 / 120 Output Total 875 / 875 1050 / 1050 850 / 850 Balance 85 / 85 -330 / -330 -730 / -730 General: Awake, Alert, Oriented x 3, Cooperative, No Acute Distress HEENT: Atraumatic, Normocephalic, PERRL, EOMI, Sclera Non Icteric Oral: Moist Mucosa Neck: Supple, Good ROM, No JVD Lungs: Clear to auscultation Cardiovascular: Regular Rhythm, Normal S1, Normal S2 Abdomen: Bowel Sounds Present, Soft Extremities: Trace RLE Edema, Trace LLE Edema Psych/Mental Status: Appropriate 11/03/18 04:10: WBC 7.7, RBC 3.24 L, Hgb 9.3 L, Hct 30.0 L, MCV 92.6, MCH 28.7, MCHC 31.0 L, RDW 17.0 H, RDW Differential 57.8 H, Plt Count 167, MPV 9.3, Immature Gran % (Auto) 0.100, Neut % (Auto) 69.2, Lymph % (Auto) 9.9 L, [place] % (Auto) 10.9 H, Eos % (Auto) 9.4 H, Baso % (Auto) 0.5, Absolute Neuts (auto) 5.4, Total Counted Not Reportable 11/03/18 04:10: PT 16.9 H, INR 1.4, APTT 35.0 11/03/18 04:10: Sodium 135 L, Potassium 3.7, Chloride 98, Carbon Dioxide 27.0, Anion Gap 10, BUN 64 H, Creatinine 1.90 H, Est GFR (MDRD) Af Amer 46 L, Est GFR (MDRD) Non-Af 38 L, BUN/Creatinine Ratio 33.7 H, Glucose 172 H, Calcium 8.1 L Rhythm:Electronic ventricular paced rhythm Medical Necessity - Tobacco Use Smoking Status: Never smoker Assessment/Plan 1. Chest pain/shortness of breath/nausea The patient has a combination of symptoms. The symptoms may be concerning for underlying cardiovascular disease. However at the same time they may be compatible with his multiple noncardiovascular issues as well. From a cardiac standpoint the patient has been noted to have indeterminate troponin I levels. At the present time the patient continues to be monitored. His BUN and creatinine level remains elevated. He has undergone further evaluation with a pharmacologic stress nuclear imaging study. He was found to have evidence of previous anterior/apical myocardial infarction with minimal víctor-infarct related myocardial ischemia. This based on his clinical course, his noninvasive findings, and his ongoing concerns of his elevated creatinine levels and the concern for possible IV contrast related neuropathy for such procedures such as diagnostic cardiac catheterization, it would be reasonable to continue him on medical management and not necessarily proceed with further invasive evaluation at this time. 2. CAD status post PCI and CABG The patient does have a history of underlying CAD, PCI, and CABG as previously noted. Again at the present time he will continue medical management. He will continue evaluation and care as noted above. 3. Ischemic mediated cardiomyopathy He has recently undergone evaluation of his left ventricular wall motion and systolic function. He will need to continue medical therapy. He does have an ICD in place. 4. Chronic systolic CHF He states while at [facility] his diuretics were discontinued. Based upon concerns of increased volume he did receive diuretic therapy. His creatinine level has increased. His diuretics remain on hold. He is being followed clinically. His creatinine level remains elevated. 5. ICD The patient does have a single-chamber ICD. It can be reassessed as needed. 6. Hyperlipidemia He will continue lowering therapy as deemed appropriate. 7. Hypertension The patient will need to have his blood pressure monitored. His medications can be adjusted as needed. 8. Diabetes mellitus The patient will continue under the care of internal medicine for this. 9. Carotid artery disease The patient does have peripheral arterial occlusive disease and is status post right carotid endarterectomy. He will continue medical management and follow-up as deemed appropriate. 10. Anemia thought secondary to upper GI bleed secondary to peptic ulcer disease His H&H does appear to be improved status post his 2 units of PRBCs. 11. Renal insufficiency The patient's creatinine level remains elevated. Again based upon his fluctuations with his renal function with antibiotics and volume shifts and diuretics there is significant concern with respect to the possibility of the patient having IV contrast related neuropathy and progressive renal insufficiency/failure with a diagnostic cardiac catheterization. This, based upon those concerns and the finding on his pharmacologic stress nuclear imaging study suggesting previous myocardial injury/infarction with only minimal víctor-infarct related myocardial ischemia it would be reasonable to continue medical management and not pursue further invasive evaluation at this time. The patient will continue medical management. He will continue with outpatient followup. This note was generated using a voice recognition system and there may be incorrect words, spelling or punctuation that were not noted when reviewing the office note prior to saving.
--- NOTE | 2018-11-04 13:44 | CASEMGMT ---
BRITTANY SOTO DC phone call. DC DATE: 11/03/18 DC Dispostion: Home LACE/STRATA: 31/01 Attempted to call, phone did not connect.
== END 2018-11-03 17:10 | disposition home or self-care (01) | DRG 292 ==
LOC: ED 23:16 → PCU 10-28 00:17
PROVIDERS: Hospitalist; Internal Medicine Cardiovascular Disease; Internal Medicine Nephrology; Nurse Practitioner Family; Physician Assistant; Admitting Provider Family Medicine; Emergency Provider Emergency Medicine; Visit Provider Internal Medicine
DX: I11.0 Hypertensive heart disease with heart failure (principal); N17.9 Acute kidney failure, unspecified; I50.23 Acute on chronic systolic (congestive) heart failure; I25.10 Atherosclerotic heart disease of native coronary artery without angina pectoris; R07.9 Chest pain, unspecified; G47.33 Obstructive sleep apnea (adult) (pediatric); E78.5 Hyperlipidemia, unspecified; G89.29 Other chronic pain; M54.9 Dorsalgia, unspecified; I25.5 Ischemic cardiomyopathy; R74.8 Abnormal levels of other serum enzymes; D50.0 Iron deficiency anemia secondary to blood loss (chronic); E11.649 Type 2 diabetes mellitus with hypoglycemia without coma; R33.9 Retention of urine, unspecified; F41.8 Other specified anxiety disorders; E66.9 Obesity, unspecified; Z68.36 Body mass index [BMI] 36.0-36.9, adult; I25.2 Old myocardial infarction; Z95.5 Presence of coronary angioplasty implant and graft; Z79.82 Long term (current) use of aspirin; Z79.4 Long term (current) use of insulin; Z79.899 Other long term (current) drug therapy; Z95.810 Presence of automatic (implantable) cardiac defibrillator; Z86.73 Personal history of transient ischemic attack (TIA), and cerebral infarction without residual deficits; Z95.1 Presence of aortocoronary bypass graft
CPT/HCPCS: 36415; 36591; 71045; 76705; 78452; 80048; 80053; 80061; 80076; 81001; 82607; 82728; 82747; 82962; 83540; 83550; 83880; 84439; 84443; 84484; 85014; 85018; 85025; 85027; 85610; 85730; 86850; 86900; 86920; 86922; 93005; 93017; 94660; 97110; 97116; 97162; 97165; 97530; 97802; 99284; A9500; J7040; P9016; A4216; J1940; J2785

== ENCOUNTER 2018-11-05 11:19 | Inpatient (IN) | payer MEDICARE, OTHER, SELFPAY ==
[2018-10-28 00:44] VITALS: BMI 36.7
[2018-11-05] VITALS (21 sets, daily range): BP systolic 138–176; BP diastolic 70–108; PULSE 62–75; RESP 16–18; TEMP 36.6–37.3; O2SAT 87–98; BMI 36.4; BMI 36.5; BMI 38.9
--- NOTE | 2018-11-05 11:32 | RAD_ITS ---
STUDY: X-RAY - RIGHT HIP REASON FOR EXAM: Right hip pain, fall. TECHNIQUE: 2 views of the hip. COMPARISON: Radiographs 12/31/2014. FINDINGS: There is calcification of the vas deferens. There is an intertrochanteric right hip fracture. There is advanced right hip arthrosis with subchondral cystic change of the right hip and acetabulum. Normal visualized superior and inferior pubic rami and ischial tuberosities. RAD/HIP, UNI W/ Pelvis 2-3 Views IMPRESSION: Right intertrochanteric hip fracture. Right hip arthrosis. Electronically Signed: Harry Fari MD at 13:23 EST Tel , Service support ,
--- NOTE | 2018-11-05 11:33 | ED.VISSUMM ---
- ER Visit Summary Date of Service: 11/05/18 Chief Complaint: Fall with right hip pain History of Present Illness: The patient is a 63 M history of noncemented diabetes, multiple cardiac stents, CAD,'s TIA and renal insufficiency. Patient states around 10:00 he was try to get out of bed. He fell and landing awkwardly on his right hip. States that he has I am locked hip pain and severe pain with trying to stand and bear weight on his right hip. No prior history of than arthritis in his hip. He denies hitting his head. He is not on blood thinners. Physical Examination: Older male no acute distress. Lying in bed. Vital signs are stable and afebrile. HEENT exam pupils round reactive light. No signs of trauma to his face or scalp. Nontender. C-spine nontender. Trachea midline. Lungs clear to auscultation bilaterally. Heart regular rhythm no murmur. Abdomen is soft and nontender. Normal bowel sounds no peritoneal signs. Upper extremities are nontender. Normal occupational therapy aides teacher strength. Wrists, elbows and shoulders are nontender. Back is nontender. His pelvis and right hip are tender to palpation. He has decreased range of motion of the right hip due to pain. And pain with attempted range of motion. Left lower extremity ankle knee and hip are nontender. Neurologically is awake alert with no focal motor deficits. Test Results: All his right hip x-ray shows an arthritis of the right hip with an acute right intertrochanteric hip fracture.. Screening labs were obtained for preop. EKG shows sinus rhythm rate of 72 with first-degree AV block. White count 8. Hemoglobin 10.5 which is his baseline anemia. Electrolytes show a gap of 7. Creatinine 1.36 which is better than baseline. INR 1.4. Patient was typed and screened. Emergency Department Course and Treatment: Patient will concern for possible right hip fracture. Patient be medicated with morphine and Zofran. X-rays will be obtained. Treatment Plan: Morphine x2 doses and Zofran. Currently is doing well. Hospitalist and orthopedic physician are both on page for admission. Disposition: Admission Impression: Acute fall Acute right hip pain intertrochanteric hip fracture This note was generated with Amitree dictation software. It may contain incorrect words, spelling, and punctuation that were not noted in review of the chart prior to signing ED Disposition - Plan for ED Patient: Chief Complaint: Fall Referrals: [facility] Doctor,Out of [Primary Care Provider] -
[2018-11-05] MEDS: Morphine 4 MG/ML Syringe IV (11:47)
[2018-11-05] MEDS: proMETHazine 25 MG/ML Syringe 6.25 MG IV ×2 (11:48→17:49)
--- NOTE | 2018-11-05 12:31 | EKG12_ITS ---
Test Reason : FALL Blood Pressure : / mmHG Vent. Rate : 072 BPM Atrial Rate : 072 BPM P-R Int : 232 ms QRS Dur : 170 ms QT Int : 468 ms P-R-T Axes : 071 259 052 degrees QTc Int : 512 ms Sinus rhythm with 1st degree A-V block Right bundle branch block Abnormal ECG Confirmed by SHERI KEY, ACE ([id number]), staff development coordinator rn DORI PRAJAPATI ([id number]) on 11/10/2018 9:09:22 AM Referred By: Carlos Manuel Nunez Confirmed By:ACE WADE MD
[2018-11-05 13:02] LABS: Hematocrit 33.8 % (40-54); Hemoglobin 10.5 g/dl (13.0-16.5); Mean Corp Hgb Conc 31.1 g/gl (32-36); Mean Corpuscular Hgb 29.1 pg (27.0-32.0); Mean Corpuscular Volume 93.6 fL (80-94); Mean Platelet Vol. 9.6 fl (6.2-12.0); Platelet Count 166 K/mm3 (150-450); RBC Distribution Width CV 17.2 % (11.6-14.6); Red Blood Count 3.61 M/mm3 (4.6-6.2); White Blood Count 8.6 K/mm3 (4.4-11.0)
[2018-11-05] MEDS: morphine 10 MG/ML Syringe 6 MG IV (13:03)
[2018-11-05 13:04] LABS: Scan Indicated on CBC? Y/N NO
[2018-11-05 13:09] LABS: International Normalized Ratio 1.4
[2018-11-05 13:14] LABS: Anion Gap 7 (5-15); BUN 46 mg/dL (7-18); BUN/Creat Ratio 33.8 RATIO (10-20); Chloride 103 mmol/L (98-107); Creatinine, Serum 1.36 mg/dL (0.70-1.30); EST Glomerular Filtration Rate 56 mL/min (>60); Est Glom Filt Rate - Afr Amer 68 mL/min (>60); Estimated Creatinine Clearance 56.32 ml/min; Glucose 275 mg/dL (74-106); Potassium 3.5 mmol/L (3.5-5.1); Sodium Level 136 mmol/L (136-145)
--- NOTE | 2018-11-05 14:47 | HP.PCM_ITS ---
Problem List (1) Abnormal cardiac enzyme level Status: Resolved (2) Acute kidney injury Status: Resolved (3) Anemia Status: Acute Qualifiers: Anemia type: other cause Other causes of anemia: acute posthemorrhagic Qualified Code(s): D62 - Acute posthemorrhagic anemia (4) Chest pain Status: Resolved (5) Shortness of breath Status: Resolved (6) Benign hypertension Status: Chronic (7) CAD (coronary artery disease) Status: Chronic Comment: extensive disease multiple stents (8) Cardiomyopathy Status: Chronic Qualifiers: Cardiomyopathy type: ischemic Comment: 38% gated nuclear EF on 11/03/18 (9) Carotid artery stenosis Status: Chronic Comment: R CEA (10) Cellulitis of right heel Status: Chronic (11) Chronic CHF (congestive heart failure) Status: Chronic Qualifiers: Heart failure type: systolic Qualified Code(s): I50.22 - Chronic systolic (congestive) heart failure Comment: ef=25% as of 04/04 (12) DM type 2 (diabetes mellitus, type 2) Status: Chronic (13) Hx of CABG Status: Chronic (14) Hyperlipidemia Status: Chronic (15) ICD (implantable cardioverter-defibrillator) in place Status: Chronic (16) Obesity Status: Chronic Qualifiers: Obesity classification: adult class 2 (BMI 35 - 39.9) (17) S/P PTCA (percutaneous transluminal coronary angioplasty) Status: Chronic (18) hx epidural abscess Status: Resolved (19) mediport placement Status: Chronic (20) LISSA (obstructive sleep apnea) Status: Acute (21) Decubitus ulcer of heel, right, unstageable Status: Chronic History of Present Illness Date of Admission: 11/05/18 Chief Complaint: Pain in the right hip after falling out of bed. The patient is a 63 year old M with a past medical history of coronary artery disease, PTCA with multiple stents, CABG, ischemic cardiomyopathy with a gated nuclear ejection fraction of 38% on stress test done 11/03/18, chronic systolic congestive heart failure, AICD placement, hyperlipidemia, hypertension, diabetes mellitus type 2, carotid artery stenosis with history of right carotid endarterectomy, chronic renal failure, peptic ulcer disease, anemia thought to be secondary to PUD and morbid obesity who presented to the emergency department at [facility] on 11/05/2018 complaining of right hip pain after a fall at home. He was standing at the bedside using a urinal and when he was done he fell. He denies syncope. no CP and no SOB or palpitations. An x-ray of the right hip revealed a right intertrochanteric fracture and evidence of severe DJD. He admits to having R hip pain for quite some time and has been using a FWW. He also has a decubitus ulcer on the R heel that is at least a stage 2 and is non-healing. He recently had a venous ultrasound of the right lower extremity that was negative for DVT. An arterial study of the RLE recently showed ALFRED's > 1.0 but, there is no read on the study yet. Vital signs at presentation to the emergency room were temp 99 ?F, pulse rate 75, blood pressure 162/80, respiratory rate 17 and he was 87% saturated on room air. CBC is remarkable for a hemoglobin of 10.5 with normochromic normocytic indices and an elevated RDW at 17.2. INR is prolonged at 1.4 with a PT of 17 and he is on no anticoagulants. BMP shows potassium of 3.5 and a BUN of 46 with a creatinine of 1.36 which is down from 1.9 on 11/03/2018. He has been following with with cardiology in [facility] but, recently moved back to [place] and was recently an inpt at [facility] from 10/27 to 11/03. The last stress test was 1419 and showed extensive previous anterior and anterior apical infarct with minimal víctor-infarct ischemia. Gated nuclear ejection fraction was 38%. The anterior wall is severely hypokinetic. Last echocardiogram was 10/18/2018 and showed mild to moderate segmental systolic dysfunction with an ejection fraction estimated at 45%. There was mild concentric left ventricular hypertrophy, moderate left atrial enlargement, 1-2+ mitral valve insufficiency, borderline enlarged aortic root, evidence of diastolic dysfunction and a right ventricular systolic pressure estimated at 37. Past Medical History Past Medical History (Chronic Problems): Chronic Problems Decubitus ulcer of heel, right, unstageable (Chronic) Cellulitis of right heel (Chronic) S/P PTCA (percutaneous transluminal coronary angioplasty) (Chronic) Cardiomyopathy (Chronic) 38% gated nuclear EF on 11/03/18 ICD (implantable cardioverter-defibrillator) in place (Chronic) mediport placement (Chronic) Hyperlipidemia (Chronic) DM type 2 (diabetes mellitus, type 2) (Chronic) Chronic CHF (congestive heart failure) (Chronic) ef=25% as of 04/04 Carotid artery stenosis (Chronic) R CEA CAD (coronary artery disease) (Chronic) extensive disease multiple stents Hx of CABG (Chronic) Obesity (Chronic) Benign hypertension (Chronic) Allergies metoclopramide HCl [From Reglan] Adverse Reaction (Verified 11/05/18 11:26) goofy, anxious, elevated BP ondansetron HCl [From Zofran] Adverse Reaction (Verified 11/05/18 11:26) goofy, anxious, elevated BP Ithbbxj-Pqi-Hyt Reductase Inhibitor Adverse Reaction (Verified 11/05/18 11:26) rhabdomyolosis Home Medications: Ambulatory Orders Medication Instructions Recorded Isosorbide Mononitrate [Imdur] 30 mg PO BID 03/05/16 Amlodipine [Norvasc] 10 mg PO DAILY 10/13/18 Atorvastatin Calcium [Lipitor] 80 mg PO QHS 10/13/18 Duloxetine HCl 30 mg PO DAILY 10/13/18 Ferrous Sulfate [Ferosul] 325 mg PO QODAY 10/13/18 Gabapentin 600 mg PO TID 10/13/18 Hydroxyzine HCl 25 mg PO TID PRN 10/13/18 Melatonin 20 mg PO QHS PRN 10/13/18 Sertraline HCl 100 mg PO DAILY 10/13/18 hydrALAZINE [Apresoline] 25 mg PO TID 10/13/18 Aspirin [Aspirin, Baby] 81 mg PO DAILY@0800 tab.chew 11/03/18 Furosemide [Lasix] 40 mg PO DAILY #30 tab 11/03/18 Tamsulosin HCl [Flomax] 0.4 mg PO DAILY@0830 #30 cap 11/03/18 Carvedilol 25 mg PO BID 11/05/18 Insulin Glargine,Hum.rec.anlog 30 unit SC BID 11/05/18 [Basaglar Kwikpen U-100] Tizanidine HCl 8 mg PO TID PRN PRN 11/05/18 Surgical History: appendectomy, cataract, cholecystectomy, coronary bypass surgery - 2004 - [place], herniorrhaphy, tonsillectomy, - - Cardiac stent placement ?24 (according to patient), right carotid endarterectomy. Psychiatric History: No pertinent psych hx Lives: With Family - he and his daughter live together, - - Smoking Status: Never smoker Tobacco Use: Non-smoker Alcohol: Rare Drugs: None - *Family History Maternal History Items: No pertinent history Paternal History Items: Heart Disease - of an [place] at age 61 Sibling History Items: No pertinent history Review of Systems Constitutional: Denies: Anorexia, Chills, Fever, Weight Change Eyes: Denies: Conjunctivae Inflammation, Drainage, Redness HEENT: Denies: Difficulty Swallowing, Head Aches, Sinus Congestion, Sinus Drainage Cardiovascular: Denies: Chest Pain, Light Headedness, Orthopnea, Palpitations, Paroxysmal Noc. Dyspnea, Syncope Respiratory: Denies: Cough, Shortness of Breath, Shortness of breath at rest, Sputum production Gastrointestinal: Denies: Abdominal Pain, Nausea, Vomiting Genitourinary: Denies: Dysuria Musculoskeletal: Reports: Joint Tenderness - chronic R hip pain, - - acute R hip pain due to acute R hip fracture. Denies: Joint Pain Skin: Denies: Rash, Wounds Neurological: Denies: Change in Speech, Slurred speech, Confusion, Focal weakness, Numbness, Tingling, Seizures Psychiatric: Denies: Anxiety, Depression, Homicidal Ideations, Suicidal Ideatio ns Endocrine: Denies: Change in Body Habitus Hematologic/ Lymphatic: Denies: Easy Bruising, Easy Bleeding, Hx of blood clot VTE Information - Inpt Only VTE Present on Admission: No VTE Mechan Device Prophylaxis: SCD's, Knee High NUBIA Hose VTE Pharm Prophylaxis ordered?: Yes Patient Problems: Active and Suspected Problems LISSA (obstructive sleep apnea) (Acute) - Physical Exam General: Alert, Oriented x3, Cooperative, Well developed, Well nourished HEENT: Atraumatic, PERRLA, EOMI, Normocephalic, - - No scleral icterus Oral: Moist Mucosa Neck: Supple, No JVD, Negative Carotid Bruits, No Nodes, No Nuchal Rigidity, Trachea Midline Lungs: Clear to auscultation, Normal air movement, No rhonchi, No wheeze, No rales Cardiovascular: Regular rate, Regular Rhythm, Normal S1, Normal S2, Murmur - He has a 1/6 to 2/6 systolic murmur at the lower left sternal border, No rub noted, No Gallop Abdomen: Bowel Sounds Present, Soft, Non Tender, Non-Distended, No Hepato- splenomegaly, - - No masses Extremities: No clubbing, No cyanosis, Capillary Refill Less than 3 Seconds, No Calf Tenderness, Edema - R>L LE, pitting, Peripheral Pulses Normal Skin: No rashes, Ulcer/ Wound - he has at least a stage II decubitus ulcer on the R heel......rim of hyperkeratotic skin with copious yellow/brown DC, can not tell at this time if it is into the muscle or not. there is no erythema and no odor Musculoskeletal: No Tenderness to Palpation of Joints or Extremities, No Muscle Wasting Neurological: Cranial nerves II-XII grossly intact Psych/Mental Status: Normal Affect, Appropriate Vital Signs Temp Pulse Resp BP Pulse Ox 99 F 74 17 164/74 H 93 11/05/18 11:23 11/05/18 14:21 11/05/18 14:21 11/05/18 14:21 11/05/18 14:21 Oxygen Flow Rate (L/min) 2 Oxygen Delivery Method Nasal Cannula Weight: 247 lb Body Mass Index (BMI) 36.4 Finger Stick Blood Glucose 42 Laboratory Tests Past 24 Hrs 11/05/18 11/05/18 11/05/18 12:50 12:50 12:50 WBC 8.6 RBC 3.61 L Hgb 10.5 L Hct 33.8 L MCV 93.6 MCH 29.1 MCHC 31.1 L RDW 17.2 H RDW Differential 59.0 H Plt Count 166 MPV 9.6 PT 17.0 H INR 1.4 Sodium 136 Potassium 3.5 Chloride 103 Carbon Dioxide 26.0 Anion Gap 7 BUN 46 H Creatinine 1.36 H Estim Creat Clear Calc 56.32 Est GFR (MDRD) Af Amer 68 Est GFR (MDRD) Non-Af 56 L BUN/Creatinine Ratio 33.8 H Glucose 275 H Calcium 8.0 L Blood Type Antibody Screen 11/05/18 12:50 WBC RBC Hgb Hct MCV MCH MCHC RDW RDW Differential Plt Count MPV PT INR Sodium Potassium Chloride Carbon Dioxide Anion Gap BUN Creatinine Estim Creat Clear Calc Est GFR (MDRD) Af Amer Est GFR (MDRD) Non-Af BUN/Creatinine Ratio Glucose Calcium Blood Type A POSITIVE Antibody Screen NEGATIVE Assessment/Plan All Active Problems Acute kidney injury (Resolved) LISSA (obstructive sleep apnea) (Acute) Anemia (Acute) Abnormal cardiac enzyme level (Resolved) Chest pain (Resolved) Shortness of breath (Resolved) hx epidural abscess (Resolved) Impressions 1. Acute right intertrochanteric hip fracture secondary to fall on chronic severe degenerative joint disease right hip 2. Nonhealing decubitus ulcer of the right heel 3. Ischemic cardiomyopathy with a recent gated nuclear ejection fraction of 38% 4. Coronary artery disease with history of CABG and PTCA/stents in the past- recent chemical nuclear stress test with minimal víctor-infarct ischemia 5. Diabetes mellitus type 2 6. Hypertension 7. Hyperlipidemia 8. Morbid obesity 9. Normochromic normocytic anemia with recent acute blood loss secondary to peptic ulcer disease with hemorrhage 10. Recent acute kidney injury with creatinine of 5.43 on 10/19/2018-never required dialysis and current creatinine is 1.36 11. Borderline hypokalemia 12. Carotid artery stenosis with history of right CEA 13. Peptic ulcer disease 14. History of AICD placement 15. Obstructive sleep apnea-compliant with CPAP 16. Hypophosphatemia Admitted to [facility] on Telemetry Dr. Mensah on consult CT scan of the R hip - Dr. Mensah suspects he will need a THR Check a HGBA1C, liver panel, mag and phos Accuchecks AC and HS with SSI Lovenox 40 mg daily for DVT prophylaxis in addition to TEDS and SCD's Consult Dr. Chen for the R heel Decub Consult the wound care nurse Culture the wound after washing with NS Recheck the lab in the AM Supplement the potassium to keep it at 4 Supplement phosphorus Lipid panel in the a.m. [facility]ATOR for pain control Recently told he has PUD but not on a PPI or and H2 bridgett - start Protonix 40 mg daily Check a Hemoccult stool
--- NOTE | 2018-11-05 15:04 | CT_ITS ---
STUDY: CT PELVIS WITHOUT CONTRAST REASON FOR EXAM: Male, 63 years old. Right hip fracture RADIATION DOSAGE (If Supplied By Facility): CTDIvol = ( 44.58 ) mGy, DLP = ( 1313.30 ) mGycm TECHNIQUE: Transaxial imaging of the pelvis was performed with oral contrast, and without intravenous administration of contrast material. Individualized dose optimization techniques were used for this CT. COMPARISON: None. FINDINGS: Normal urinary bladder. Normal visualized small intestine. Normal visualized colon. There is a small amount of pelvic ascites. There is diffuse fatty stranding of the pelvis. There is no pelvic mass lesion or lymphadenopathy. There is calcification of the vas deferens. Normal visualized pelvic arteries. There is fatty stranding of the subcutaneous fat. There is a fat-containing left inguinal hernia. There are severe arthritic changes of the right hip. There is a nondisplaced comminuted intertrochanteric fracture of the right femur. There is no evidence of pelvic fracture. CT/Pelvis without IV Contrast IMPRESSION: 1. Nondisplaced comminuted intertrochanteric fracture of the right femur. 2. There are severe arthritic changes of the right hip. 3. There is a small amount of pelvic ascites. There is diffuse fatty stranding in the pelvis. 4. Subcutaneous fatty stranding suggestive of anasarca. 5. Fat-containing left inguinal hernia. Electronically Signed: Gerardo Villegas MD at 16:32 EST , Service support ,
--- NOTE | 2018-11-05 15:15 | RAD_ITS ---
STUDY: X-RAY CHEST REASON FOR EXAM: Male, 63 years old. Shortness of breath TECHNIQUE: Frontal view of the chest COMPARISON: 10/27/2018 FINDINGS: There is a right-sided port with its tip in the superior vena cava. The lungs are clear. There are no pleural effusions. There is no pneumothorax. The heart is enlarged, but stable. Again noted is a pacemaker and sternotomy wires. The visualized osseous structures are within normal limits. RAD/Chest 1 View IMPRESSION: No acute thoracic pathology. Electronically Signed: Boris Lizarraga, at 15:37 EST Tel , Service support ,
[2018-11-05 15:24] LABS: Magnesium 2.4 mg/dL (1.6-2.6); Phosphorus 2.2 mg/dL (2.5-4.9)
[2018-11-05 16:01] LABS: Hemoglobin A1c 7.8 % (4.2-6.3)
[2018-11-05 16:57] LABS: Bacteria 0 SEEN /hpf (None Seen); Mucous, Urine 0 SEEN /hpf (<or=2+); Red Blood Cells-Urine 0 SEEN /hpf (0-5); Squamous Epithelial Cells - UA 0 SEEN /hpf (0-5); White Blood Cells 0 SEEN /hpf (0-5)
[2018-11-05] MEDS: Enoxaparin 40 MG/0.4 ML Syringe SC (17:02)
[2018-11-05] MEDS: Insulin Lispro 100 UNIT/ML INSULN.PEN SC ×2 (17:02→21:35)
[2018-11-05] MEDS: Gabapentin 600 MG Tablet PO (17:02)
[2018-11-05 17:04] LABS: Color, Urine Yellow (Yellow); Glucose, Dipstick 250 mg/dl (Normal); Ketone-Dipstick 5 mg/dl (Negative); Leukocyte Esterase-Dipstick Negative /ul (Negative); Nitrite-Dipstick Negative (Negative); Occult Blood-Urine 10 /ul (Negative); Protein-Dipstick 100 mg/dl (Negative); Specific Gravity, Urine 1.015 (1.002-1.030); Urine Bilirubin Dipstick Negative (Negative); Urine Clarity Clear (Clear); Urine Urobilinogen 1 mg/dl (Normal)
--- NOTE | 2018-11-05 17:25 | RAD_ITS ---
STUDY: X-RAY - RIGHT FOOT CLINICAL: Male, 63 years old. Right foot ulcer TECHNIQUE: 1 view(s) of the foot. COMPARISON: Previous study of 10/13/2018 FINDINGS: There is a tiny plantar aspect calcaneal spur. Normal visualized subtalar, talonavicular, calcaneocuboid, tarsal and tarsometatarsal articulations. Normal metatarsi. Normal metatarsophalangeal joint of the great toe. Normal tibial and fibular sesamoid bones. Normal interphalangeal joint of the great toe. There is limited visualization of the phalanges as only a lateral projection was obtained. There is soft tissue swelling of the dorsum of the foot. Several tiny splinterlike metallic appearing foreign bodies are seen in the soft tissues of the plantar aspect of the midfoot. RAD/Foot 2 Views IMPRESSION: Soft tissue swelling of the dorsum of the foot. Several tiny splinterlike metallic appearing foreign bodies are seen in the soft tissues of the plantar aspect of the midfoot. Arterial calcifications are noted in the right foot and ankle. There is no evidence of soft tissue gas. Electronically Signed: Gerardo Villegas MD at 18:06 EST , Service support ,
--- NOTE | 2018-11-05 18:39 | CON.PCM_ITS ---
Reason for Consult Date of Consultation: 11/05/18 Reason for Consultation: Heel ulcers History of Present Illness: The patient is a 63 year old male with history of bilateral heel ulcerations, was last seen by myself end of 2017, had bilateral heel debridement, had infection to the right foot, was +MRSA at that time, he ultimately was transferred to [place] due to AYE, he relates he did not get dialysis. He relates he has been off of antibiotic for several weeks. He presented to the ER today after a fall, broke right hip. He relates his hip surgery is scheduled for Saturday. Podiatry was consulted for management of the heel ulcerations. He relates they have been healing well. He has no new pedal complaints. Right heel ulcer was cultured in preparation for right hip surgery. Past Medical History Past Medical History (Chronic Problems): Chronic Problems Decubitus ulcer of heel, right, unstageable (Chronic) Cellulitis of right heel (Chronic) S/P PTCA (percutaneous transluminal coronary angioplasty) (Chronic) Cardiomyopathy (Chronic) 38% gated nuclear EF on 11/03/18 ICD (implantable cardioverter-defibrillator) in place (Chronic) mediport placement (Chronic) Hyperlipidemia (Chronic) DM type 2 (diabetes mellitus, type 2) (Chronic) Chronic CHF (congestive heart failure) (Chronic) ef=25% as of 04/04 Carotid artery stenosis (Chronic) R CEA CAD (coronary artery disease) (Chronic) extensive disease multiple stents Hx of CABG (Chronic) Obesity (Chronic) Benign hypertension (Chronic) Allergies metoclopramide HCl [From Reglan] Adverse Reaction (Verified 11/05/18 11:26) goofy, anxious, elevated BP ondansetron HCl [From Zofran] Adverse Reaction (Verified 11/05/18 11:26) goofy, anxious, elevated BP Jqjkztg-Kqw-Kdn Reductase Inhibitor Adverse Reaction (Verified 11/05/18 11:26) rhabdomyolosis Home Medications: Ambulatory Orders Medication Instructions Recorded Isosorbide Mononitrate [Imdur] 30 mg PO BID 03/05/16 Amlodipine [Norvasc] 10 mg PO DAILY 10/13/18 Atorvastatin Calcium [Lipitor] 80 mg PO QHS 10/13/18 Duloxetine HCl 30 mg PO DAILY 10/13/18 Ferrous Sulfate [Ferosul] 325 mg PO QODAY 10/13/18 Gabapentin 600 mg PO TID 10/13/18 Hydroxyzine HCl 25 mg PO TID PRN 10/13/18 Melatonin 20 mg PO QHS PRN 10/13/18 Sertraline HCl 100 mg PO DAILY 10/13/18 hydrALAZINE [Apresoline] 25 mg PO TID 10/13/18 Aspirin [Aspirin, Baby] 81 mg PO DAILY@0800 tab.chew 11/03/18 Furosemide [Lasix] 40 mg PO DAILY #30 tab 11/03/18 Tamsulosin HCl [Flomax] 0.4 mg PO DAILY@0830 #30 cap 11/03/18 Carvedilol 25 mg PO BID 11/05/18 Insulin Glargine,Hum.rec.anlog 30 unit SC BID 11/05/18 [Basaglar Kwikpen U-100] Tizanidine HCl 8 mg PO TID PRN PRN 11/05/18 Surgical History: appendectomy, cataract, cholecystectomy, coronary bypass surgery - 2004 - [place], herniorrhaphy, tonsillectomy, - - Cardiac stent placement ?24 (according to patient), right carotid endarterectomy. Psychiatric History: No pertinent psych hx Lives: With Family - he and his daughter live together, - - Smoking Status: Never smoker Tobacco Use: Non-smoker Alcohol: Rare Drugs: None - *Family History Maternal History Items: No pertinent history Paternal History Items: Heart Disease - of an AL at age 61 Sibling History Items: No pertinent history Review of Systems Constitutional: Denies: Chills, Fever Gastrointestinal: Denies: Nausea, Vomiting Patient Problems: Active and Suspected Problems LISSA (obstructive sleep apnea) (Acute) - Physical Exam General: Alert, Oriented x3, Cooperative, No apparent distress Extremities: No clubbing, No cyanosis, Capillary Refill Less than 3 Seconds, Edema - diffuse lower extremity edema, right worse than left, Peripheral Pulses Normal, - - Ulceration right heel - down to the subcutaneous tissue, there is some nonviable tissue present to the base and the margins, there is no deep probing or tracking - no evidence of bone, joint or muscle involvement, the margins are intact with no undermining, there is no maloder, no fluctuance, no crepitus, no visible abscess, no purulence present - there is some granular tissue present in the wound bed, no cellulitis or evidence of infection at this time, prior to debridement measured 2.8cm x 2.9cm down to subcutaneous tissue. Ulceration left heel - down to the subcutaneous tissue, there is some nonviable tissue present to the base and the margins, there is no deep probing or tracking, the margins are intact with no undermining, there is no maloder, no fluctuance, no crepitus, no visible abscess, no purulence present - there is some granular tissue present in the wound bed, no cellulitis or evidence of infection at this time. It measures 0.6cm x 0.3cm down to the subcutaneous tissue prior to debridement. No evidence of bone, joint or muscle involvement. No other open lesions bilateral foot/ankle or leg. Sensation significantly diminished bilateral foot due to peripheral neuropathy. Pedal pulses intact, CFT < 2 seconds to all toes bilateral foot. Musculoskeletal: No Tenderness to Palpation of Joints or Extremities - to the foot/ankle bilateral Vital Signs Temp Pulse Resp BP Pulse Ox 98.0 F 69 16 176/108 H 93 11/05/18 17:26 11/05/18 17:26 11/05/18 17:26 11/05/18 17:26 11/05/18 17:26 Oxygen Flow Rate (L/min) 2 Oxygen Delivery Method Nasal Cannula Weight: 119.6 kg Body Mass Index (BMI) 38.9 Finger Stick Blood Glucose 42 Laboratory Tests Past 24 Hrs 11/05/18 11/05/18 11/05/18 12:50 12:50 12:50 WBC 8.6 RBC 3.61 L Hgb 10.5 L Hct 33.8 L MCV 93.6 MCH 29.1 MCHC 31.1 L RDW 17.2 H RDW Differential 59.0 H Plt Count 166 MPV 9.6 PT 17.0 H INR 1.4 Sodium 136 Potassium 3.5 Chloride 103 Carbon Dioxide 26.0 Anion Gap 7 BUN 46 H Creatinine 1.36 H Estim Creat Clear Calc 56.32 Est GFR (MDRD) Af Amer 68 Est GFR (MDRD) Non-Af 56 L BUN/Creatinine Ratio 33.8 H Glucose 275 H Hemoglobin A1c Calcium 8.0 L Phosphorus Magnesium Urine Color Urine Clarity Urine pH Ur Specific [place] Urine Protein Urine Glucose (UA) Urine Ketones Urine Occult Blood Urine Nitrite Urine Bilirubin Urine Urobilinogen Ur Leukocyte Esterase Urine RBC Urine WBC Ur Squamous Epith Cells Urine Bacteria Urine Mucus Blood Type Antibody Screen 11/05/18 11/05/18 11/05/18 12:50 12:50 12:50 WBC RBC Hgb Hct MCV MCH MCHC RDW RDW Differential Plt Count MPV PT INR Sodium Potassium Chloride Carbon Dioxide Anion Gap BUN Creatinine Estim Creat Clear Calc Est GFR (MDRD) Af Amer Est GFR (MDRD) Non-Af BUN/Creatinine Ratio Glucose Hemoglobin A1c 7.8 H Calcium Phosphorus 2.2 L Magnesium 2.4 Urine Color Urine Clarity Urine pH Ur Specific [place] Urine Protein Urine Glucose (UA) Urine Ketones Urine Occult Blood Urine Nitrite Urine Bilirubin Urine Urobilinogen Ur Leukocyte Esterase Urine RBC Urine WBC Ur Squamous Epith Cells Urine Bacteria Urine Mucus Blood Type A POSITIVE Antibody Screen NEGATIVE 11/05/18 16:45 WBC RBC Hgb Hct MCV MCH MCHC RDW RDW Differential Plt Count MPV PT INR Sodium Potassium Chloride Carbon Dioxide Anion Gap BUN Creatinine Estim Creat Clear Calc Est GFR (MDRD) Af Amer Est GFR (MDRD) Non-Af BUN/Creatinine Ratio Glucose Hemoglobin A1c Calcium Phosphorus Magnesium Urine Color Yellow Urine Clarity Clear Urine pH 5.0 Ur Specific [place] 1.015 Urine Protein 100 H Urine Glucose (UA) 250 H Urine Ketones 5 H Urine Occult Blood 10 H Urine Nitrite Negative Urine Bilirubin Negative Urine Urobilinogen 1 H Ur Leukocyte Esterase Negative Urine RBC 0 SEEN Urine WBC 0 SEEN Ur Squamous Epith Cells 0 SEEN Urine Bacteria 0 SEEN Urine Mucus 0 SEEN Blood Type Antibody Screen Assessment/Plan All Active Problems Acute kidney injury (Resolved) LISSA (obstructive sleep apnea) (Acute) Anemia (Acute) Abnormal cardiac enzyme level (Resolved) Chest pain (Resolved) Shortness of breath (Resolved) hx epidural abscess (Resolved) Ulcer right heel down to the subcutaneous tissue layer - healing Ulcer/crack left heel down to the subcutaneous tissue layer - healing Diabetes with peripheral neuropathy Reviewed diagnostic data - right foot xray obtained - no acute changes, previous bone scan was negative for osteomyelitis, WBC within normal limits, no evidence of infection to the heel ulcerations. The ulceration right heel was debrided in excisional fashion down to the subcutaneous tissue layer using a 15 blade. Post debridement the ulceration right heel measures 3cm x 3cm, down to the subcutaneous tissue layer, no anesthesia was needed due to patient's peripheral neuropathy, base and margins healthy and viable post debridement - there was no visible abscess or pockets, no fluctuance or crepitus, no purulence, margins intact with no undermining - there is no probe or tracking to bone or deeper structures. Betadine solution and a gauze / margaret dressing applied. Keep offloaded at all times. Ulceration/crack left heel: The ulceration was debrided in excisional fashion down to the subcutaneous tissue layer using a 15 blade. Post debridement the ulceration right heel measures 0.8cm x 0.4cm and down to the subcutaneous tissue layer, no anesthesia was needed due to patient's peripheral neuropathy, base and margins healthy and viable post debridement - there was no visible abscess or po ckets, no fluctuance or crepitus, no purulence, margins intact with no undermining - there is no probe or tracking to bone or deeper structures. Betadine solution and a gauze / margaret dressing applied. Keep offloaded at all times. Wound nurse consulted. Daily dressing changes of Aquacel Ag with overlying gauze dressing - change daily. Patient to keep heels offloaded at all times. Reviewed with patient importance of proper diabetic / blood sugar control to optimize healing. Podiatry will continue to follow 1-2 times weekly. Thank you for consultation.
--- NOTE | 2018-11-05 19:41 | CPS ---
Pt. refuses usage of hospital CPAP. Says own unit is on its way for tonight. Currently on 2L NC with SpO2 of 94%.
[2018-11-05] MEDS: Carvedilol 25 MG Tablet PO (21:33)
[2018-11-05] MEDS: hydrALAZINE 25 MG Tablet PO (21:33)
[2018-11-05] MEDS: Atorvastatin Calcium 80 MG Tablet PO (21:34)
[2018-11-05] MEDS: Senna/Docusate Sodium 1 Tablet 2 TABLET PO (21:34)
[2018-11-05] MEDS: Isosorbide Mononitrate 30 MG Tablet PO (21:34)
[2018-11-05] MEDS: 0.9% NaCl Peripheral Flush Adult/Peds IV (21:39)
[2018-11-05 21:45] LABS: Bedside Glucose 213 mg/dL (70-110)
[2018-11-05] MEDS: MELATONIN 10 MG TABLET 20 MG PO (22:17)
[2018-11-05] MEDS: Menthol/Lanolin/Calamine/Znox 113 GM Tube 1 APPLIC TOPICAL (22:18)
--- NOTE | 2018-11-05 23:45 | CPS ---
RN called about pt. SpO2 being slightly down on Home CPAP unit. Checked Pulse Ox on CPAP and was 87%. Pt. typically wears a 2L NC when not on CPAP. Bled in 3L into Home CPAP unit to increase pulse ox overnight with comfort.
[2018-11-06] VITALS (22 sets, daily range): BP systolic 100–140; BP diastolic 58–82; PULSE 59–73; RESP 17–18; TEMP 36.3–37.3; O2SAT 91–98
--- NOTE | 2018-11-06 03:09 | NURSING ---
Pt keeps taking his cpap off and on. pt po 78% on ra. Encourage pt to leave on. Pt struggles to put his own cpap mask on from home. Pt stated he puts it on at home. pt drinking strawberry milk.
[2018-11-06] MEDS: Menthol/Lanolin/Calamine/Znox 113 GM Tube 1 APPLIC TOPICAL ×3 (06:15→22:10)
[2018-11-06] MEDS: hydrALAZINE 25 MG Tablet PO ×3 (06:15→22:10)
[2018-11-06 06:29] LABS: Hematocrit 32.5 % (40-54); Mean Corp Hgb Conc 30.8 g/gl (32-36); Mean Corpuscular Volume 94.2 fL (80-94); Mean Platelet Vol. 9.8 fl (6.2-12.0); Platelet Count 189 K/mm3 (150-450); RBC Distribution Width CV 16.8 % (11.6-14.6); RBC Distribution Width SD 58.4 fl (35.1-43.9); Red Blood Count 3.45 M/mm3 (4.6-6.2); White Blood Count 10.2 K/mm3 (4.4-11.0)
[2018-11-06 06:36] LABS: Scan Indicated on CBC? Y/N NO
[2018-11-06 06:41] LABS: Bedside Glucose 228 mg/dL (70-110)
[2018-11-06] MEDS: 0.9% NaCl Peripheral Flush Adult/Peds IV ×2 (06:44→22:21)
[2018-11-06] MEDS: Insulin Lispro 100 UNIT/ML INSULN.PEN SC ×3 (06:44→16:34)
[2018-11-06 06:54] LABS: Anion Gap 7 (5-15); BUN 47 mg/dL (7-18); BUN/Creat Ratio 26.7 RATIO (10-20); Calcium,Total 8.1 mg/dL (8.5-10.1); Chloride 100 mmol/L (98-107); Cholesterol 76 mg/dL (200); Creatinine, Serum 1.76 mg/dL (0.70-1.30); EST Glomerular Filtration Rate 42 mL/min (>60); Est Glom Filt Rate - Afr Amer 51 mL/min (>60); Estimated Creatinine Clearance 43.52 ml/min; Glucose 231 mg/dL (74-106); High Density Lipoprotein 25 mg/dL; Magnesium 2.7 mg/dL (1.6-2.6); Potassium 4.3 mmol/L (3.5-5.1); Sodium Level 135 mmol/L (136-145); Triglycerides 99 mg/dL; Very Low Density Lipoprotein 20 mg/dL (5-40)
--- NOTE | 2018-11-06 07:04 | NURSING ---
Pt keeps diconnecting the 02 from the cpap. cpap removed and 02 at 2lnc applied. Pt can be inappropriate with staff
[2018-11-06] MEDS: Isosorbide Mononitrate 30 MG Tablet PO ×2 (08:02→22:10)
[2018-11-06] MEDS: Ferrous Sulfate 325 MG Tablet PO (08:02)
[2018-11-06] MEDS: Gabapentin 600 MG Tablet PO ×3 (08:03→16:26)
[2018-11-06] MEDS: Tamsulosin HCl 0.4 MG Capsule PO (08:03)
[2018-11-06] MEDS: Furosemide 40 MG Tablet PO (08:04)
[2018-11-06] MEDS: DULoxetine Hcl 30 MG Capsule PO (08:04)
[2018-11-06] MEDS: amLODIPine 10 MG Tablet PO (08:04)
[2018-11-06] MEDS: Carvedilol 25 MG Tablet PO ×2 (08:05→22:10)
[2018-11-06] MEDS: Pantoprazole Sodium 40 MG Tablet PO (08:05)
[2018-11-06] MEDS: Sertraline 100 MG Tablet PO (08:05)
--- NOTE | 2018-11-06 09:43 | NURSING ---
wound photo: left heel
--- NOTE | 2018-11-06 09:44 | NURSING ---
wound photo: right heel
--- NOTE | 2018-11-06 09:47 | PN_ITS ---
Patient Problems: Active and Suspected Problems LISSA (obstructive sleep apnea) (Acute) Subjective: Patient had right intertrochanteric fracture after fall with history of degenerative arthritis for many years. Patient is unstable on gait and balance and uses walker for mobilization. He has multiple comorbidities including coronary artery disease, CHF, diabetes mellitus type 2, obstructive sleep apnea and is noncompliant to medications and follow-up. Vitals/I&O's: Vital Signs Temp Pulse Resp BP Pulse Ox 99.2 F H 59 L 18 123/67 H 98 11/06/18 08:00 11/06/18 08:00 11/06/18 08:00 11/06/18 08:00 11/06/18 08:00 Oxygen Flow Rate (L/min) 3 Oxygen Delivery Method Nasal Cannula Weight: 263 lb 10.766 oz Body Mass Index (BMI) 38.9 Finger Stick Blood Glucose 42 Intake and Output for Last 24 Hours 11/04/18 11/05/18 11/06/18 23:59 23:59 23:59 Intake Total 400 / 400 1264 / 1264 Output Total 450 / 450 300 / 300 Balance -50 / -50 964 / 964 General: Alert, Oriented x3, Cooperative HEENT: Atraumatic, PERRLA, EOMI, Normocephalic Neck: Supple, No JVD, Negative Carotid Bruits Lungs: No rhonchi, No wheeze, Diminished Cardiovascular: Regular rate, Normal S1, Normal S2, No murmurs, - - AICD Abdomen: Bowel Sounds Present, Soft, Non Tender, Non-Distended Extremities: Capillary Refill Less than 3 Seconds, Edema Skin: No rashes, No breakdown Musculoskeletal: No Tenderness to Palpation of Joints or Extremities, Arthritic Changes, Muscle Wasting Neurological: Cranial nerves II-XII grossly intact, Deep Tendon Reflexes 2+/4 and Symmetrical, Neuro grossly intact Psych/Mental Status: Normal Affect, Appropriate Laboratory Results 11/05/18 12:50: WBC 8.6, RBC 3.61 L, Hgb 10.5 L, Hct 33.8 L, MCV 93.6, MCH 29.1, MCHC 31.1 L, RDW 17.2 H, RDW Differential 59.0 H, Plt Count 166, MPV 9.6 11/05/18 12:50: PT 17.0 H, INR 1.4 11/05/18 12:50: Sodium 136, Potassium 3.5, Chloride 103, Carbon Dioxide 26.0, Anion Gap 7, BUN 46 H, Creatinine 1.36 H, Estim Creat Clear Calc 56.32, Est GFR (MDRD) Af Amer 68, Est GFR (MDRD) Non-Af 56 L, BUN/Creatinine Ratio 33.8 H, Glucose 275 H, Calcium 8.0 L 11/05/18 12:50: Blood Type A POSITIVE, Antibody Screen NEGATIVE 11/05/18 12:50: Hemoglobin A1c 7.8 H 11/05/18 12:50: Phosphorus 2.2 L, Magnesium 2.4 11/05/18 16:45: Urine Color Yellow, Urine Clarity Clear, Urine pH 5.0, Ur Specific [place] 1.015, Urine Protein 100 H, Urine Glucose (UA) 250 H, Urine Ketones 5 H, Urine Occult Blood 10 H, Urine Nitrite Negative, Urine Bilirubin Negative, Urine Urobilinogen 1 H, Ur Leukocyte Esterase Negative, Urine RBC 0 SEEN, Urine WBC 0 SEEN, Ur Squamous Epith Cells 0 SEEN, Urine Bacteria 0 SEEN, Urine Mucus 0 SEEN 11/05/18 21:32: POC Glucose 213 H 11/06/18 06:05: WBC 10.2, RBC 3.45 L, Hgb 10.0 L, Hct 32.5 L, MCV 94.2 H, MCH 29.0, MCHC 30.8 L, RDW 16.8 H, RDW Differential 58.4 H, Plt Count 189, MPV 9.8 11/06/18 06:05: Sodium 135 L, Potassium 4.3, Chloride 100, Carbon Dioxide 28.0, Anion Gap 7, BUN 47 H, Creatinine 1.76 H, Estim Creat Clear Calc 43.52, Est GFR (MDRD) Af Amer 51 L, Est GFR (MDRD) Non-Af 42 L, BUN/Creatinine Ratio 26.7 H, Glucose 231 H, Calcium 8.1 L, Magnesium 2.7 H, Triglycerides 99, Cholesterol 76, LDL Cholesterol 31, VLDL Cholesterol 20, HDL Cholesterol 25 L 11/06/18 06:36: POC Glucose 228 H Current Medications Amlodipine Besylate (Norvasc) 10 mg PO DAILY [facility] Last Admin: 11/06/18 08:04 Dose: 10 mg Aspirin (Aspirin, Baby) 81 mg PO DAILY@0800 [facility] Atorvastatin Calcium (Lipitor) 80 mg PO QHS [facility] Last Admin: 11/05/18 21:34 Dose: 80 mg Bisacodyl (Dulcolax) 10 mg RECTAL .X1 PRN PRN PRN Reason: See label comments Bisacodyl (Dulcolax) 10 mg PO .X1 PRN PRN PRN Reason: See label comments Calamine/Phenol (Calmoseptine Ointment) 1 applic TOPICAL TID [facility]; Protocol Last Admin: 11/06/18 06:15 Dose: 1 applicatio Carvedilol (Coreg) 25 mg PO BID [facility] Last Admin: 11/06/18 08:05 Dose: 25 mg Diphenhydramine HCl (Benadryl) 12.5 - 25 mg PO Q6H PRN PRN PRN Reason: Pruritis Duloxetine HCl (Cymbalta) 30 mg PO DAILY [facility] Last Admin: 11/06/18 08:04 Dose: 30 mg Enoxaparin Sodium (Lovenox) 40 mg SC DAILY [facility] Last Admin: 11/05/18 17:02 Dose: 40 mg Ferrous Sulfate (Ferrous Sulfate) 325 mg [facility] Last Admin: 11/06/18 08:02 Dose: 325 mg Furosemide (Lasix) 40 mg PO DAILY [facility] Last Admin: 11/06/18 08:04 Dose: 40 mg Gabapentin (Neurontin) 600 mg PO TIDCM [facility] Last Admin: 11/06/18 08:03 Dose: 600 mg Hydralazine HCl (Apresoline) 25 mg PO TID [facility] Last Admin: 11/06/18 06:15 Dose: 25 mg Naloxone HCl 4 mg/ Dextrose 504 mls @ 0 mls/hr IV .Q0M PRN; Protocol PRN Reason: To maintain Resp. rate >10 Insulin Glargine (Lantus (Bkc)) 25 units SC DAILY [facility] Last Admin: 11/06/18 08:06 Dose: 25 units Insulin Glargine (Lantus (Bkc)) 15 units SC QHS [facility] Last Admin: 11/05/18 21:34 Dose: 15 u Insulin Human Lispro (Humalog Kwikpen (Bkc)) 0 unit SC ACHS [facility]; Protocol Last Admin: 11/06/18 06:44 Dose: 4 units Isosorbide Mononitrate (Imdur) 30 mg PO BID [facility] Last Admin: 11/06/18 08:02 Dose: 30 mg Magnesium Hydroxide (Milk Of Magnesia) 30 ml PO DAILY PRN PRN PRN Reason: Constipation Melatonin (Melatonin) 20 mg PO QHS PRN PRN Reason: SLEEP Last Admin: 11/05/18 22:17 Dose: 20 mg Morphine Sulfate () 100 mg IV UD [facility]; Protocol Last Admin: 11/05/18 17:19 Dose: 100 mg Naloxone HCl (Narcan) 0.02 mg IV Q1M PRN PRN Reason: RR <10 and pt unresponsive Nutritional Formula (Lactose Free) (Ensure Enlive) 120 ml PO 4X/DAY [facility] Last Admin: 11/06/18 08:08 Dose: 120 ml Pantoprazole Sodium (Protonix) 40 mg PO DAILY [facility] Last Admin: 11/06/18 08:05 Dose: 40 mg Potassium Chloride (K-Dur) 20 meq PO DAILYCM [facility] Last Admin: 11/06/18 08:03 Dose: 20 meq Promethazine HCl (Phenergan) 6.25 mg IV Q4H PRN PRN PRN Reason: NAUSEA/VOMITING Last Admin: 11/05/18 17:49 Dose: 6.25 mg Senna/Docusate Sodium (Senokot-S, Kaur-Colace) 2 tablet PO QHS [facility] Last Admin: 11/05/18 21:34 Dose: 2 tablet Sertraline HCl (Zoloft) 100 mg PO DAILY [facility] Last Admin: 11/06/18 08:05 Dose: 100 mg Sodium Chloride () 5 - 15 ml IV UD PRN PRN Reason: SALINE FLUSH Last Admin: 11/06/18 06:44 Dose: 10 ml Tamsulosin HCl (Flomax) 0.4 mg PO DAILY@0830 [facility] Last Admin: 11/06/18 08:03 Dose: 0.4 mg Tizanidine HCl (Zanaflex) 4 mg PO TID PRN PRN Reason: SPASMS Medical Necessity - Tobacco Use Smoking Status: Never smoker Tobacco Use: Non-smoker Assessment/Plan All Active Problems Acute kidney injury (Resolved) LISSA (obstructive sleep apnea) (Acute) Anemia (Acute) Abnormal cardiac enzyme level (Resolved) Chest pain (Resolved) Shortness of breath (Resolved) hx epidural abscess (Resolved) This is a 63-year-old gentleman with with history of multiple comorbidities complicates the present care and expect difficult and delay recovery Including coronary artery disease status post CABG, multiple stents, ischemic cardiomyopathy with EF of about 38% on stress test done on 11/03/2018, chronic systolic congestive heart failure, AICD placement, hyperlipidemia, hypertension, diabetes mellitus type 2, carotid artery stenosis with history of right carotid endarterectomy, chronic renal failure, obstructive sleep apnea was admitted for right hip pain after fall which on further evaluation found to be right hip intertrochanteric fracture with evidence of severe DJD. Patient was seen by Dr. Mensah and recommended further evaluation by Dr. Moreira who is joint a specialist for [facility]. 1. Acute right intertrochanteric hip fracture secondary to fall on chronic degenerative joint disease. Patient is being admitted on regular [facility] floor. Patient was seen by Dr. Mensah. Pain management. Needs further evaluation by Dr. Moreira. 2. Decubitus ulcer right heel, stage II nonhealing, 3 x 3 cm and left heel ulceration/crack: Being followed by butting saw operator. Patient had debridement done. Dr. Chen consult appreciated. 3. Ischemic cardiomyopathy with chronic systolic heart failure with EF 38% on recent stress test: 4. Coronary artery disease with history of CABG and PTCA/stents 5. Diabetes mellitus type 2 complicated with diabetic neuropathy and peripheral arterial disease: UA is positive of proteinuria and glucosuria. Blood sugar is controlled. 6. Hypertension blood pressure is controlled. 7. Hyperlipidemia 8. Morbid obesity 9. Normochromic normocytic anemia with recent acute blood loss secondary to peptic ulcer disease with hemorrhage 10. Recent acute kidney injury with creatinine of 5.43 on 10/19/2018-never required dialysis and current creatinine is 1.36 11. Mild hypokalemia: K is corrected. K 4.3 12. Carotid artery stenosis with history of right CEA 13. Peptic ulcer disease 14. History of AICD placement 15. Obstructive sleep apnea-compliant with CPAP 16. Hypophosphatemia Home medication reconciliation done. Laboratory Results 11/05/18 12:50: WBC 8.6, RBC 3.61 L, Hgb 10.5 L, Hct 33.8 L, MCV 93.6, MCH 29.1, MCHC 31.1 L, RDW 17.2 H, RDW Differential 59.0 H, Plt Count 166, MPV 9.6 11/05/18 12:50: PT 17.0 H, INR 1.4 11/05/18 12:50: Sodium 136, Potassium 3.5, Chloride 103, Carbon Dioxide 26.0, Anion Gap 7, BUN 46 H, Creatinine 1.36 H, Estim Creat Clear Calc 56.32, Est GFR (MDRD) Af Amer 68, Est GFR (MDRD) Non-Af 56 L, BUN/Creatinine Ratio 33.8 H, Glucose 275 H, Calcium 8.0 L 11/05/18 12:50: Blood Type A POSITIVE, Antibody Screen NEGATIVE 11/05/18 12:50: Hemoglobin A1c 7.8 H 11/05/18 12:50: Phosphorus 2.2 L, Magnesium 2.4 11/05/18 16:45: Urine Color Yellow, Urine Clarity Clear, Urine pH 5.0, Ur Specific [place] 1.015, Urine Protein 100 H, Urine Glucose (UA) 250 H, Urine Ketones 5 H, Urine Occult Blood 10 H, Urine Nitrite Negative, Urine Bilirubin Negative, Urine Urobilinogen 1 H, Ur Leukocyte Esterase Negative, Urine RBC 0 SEEN, Urine WBC 0 SEEN, Ur Squamous Epith Cells 0 SEEN, Urine Bacteria 0 SEEN, Urine Mucus 0 SEEN 11/05/18 21:32: POC Glucose 213 H 11/06/18 06:05: WBC 10.2, RBC 3.45 L, Hgb 10.0 L, Hct 32.5 L, MCV 94.2 H, MCH 29.0, MCHC 30.8 L, RDW 16.8 H, RDW Differential 58.4 H, Plt Count 189, MPV 9.8 11/06/18 06:05: Sodium 135 L, Potassium 4.3, Chloride 100, Carbon Dioxide 28.0, Anion Gap 7, BUN 47 H, Creatinine 1.76 H, Estim Creat Clear Calc 43.52, Est GFR (MDRD) Af Amer 51 L, Est GFR (MDRD) Non-Af 42 L, BUN/Creatinine Ratio 26.7 H, Glucose 231 H, Calcium 8.1 L, Magnesium 2.7 H, Triglycerides 99, Cholesterol 76, LDL Cholesterol 31, VLDL Cholesterol 20, HDL Cholesterol 25 L 11/06/18 06:36: POC Glucose 228 H Clinical Impression(s) from Imaging Studies Hip/Pelvis X-Ray 11/05/18 11:32 IMPRESSION: Right intertrochanteric hip fracture. Right hip arthrosis. Electronically Signed: Harry Fair MD at 13:23 EST Tel , Service support , Pelvis CT 11/05/18 15:04 IMPRESSION: 1. Nondisplaced comminuted intertrochanteric fracture of the right femur. 2. There are severe arthritic changes of the right hip. 3. There is a small amount of pelvic ascites. There is diffuse fatty stranding in the pelvis. 4. Subcutaneous fatty stranding suggestive of anasarca. 5. Fat-containing left inguinal hernia. Chest X-Ray 11/05/18 15:15 IMPRESSION: No acute thoracic pathology. Foot X-Ray 11/05/18 17:25 IMPRESSION: Soft tissue swelling of the dorsum of the foot. Several tiny splinterlike metallic appearing foreign bodies are seen in the soft tissues of the plantar aspect of the midfoot. Arterial calcifications are noted in the right foot and ankle. There is no evidence of soft tissue gas. Code Visit Inpatient E&M: 18029 Subs Hosp L3
[2018-11-06] MEDS: Aspirin 81 MG TAB.CHEW PO (12:03)
[2018-11-06] MEDS: Enoxaparin 40 MG/0.4 ML Syringe SC (12:03)
--- NOTE | 2018-11-06 12:07 | CON.PCM_ITS ---
Reason for Consult Date of Consultation: 11/06/18 Reason for Consultation: Right hip pain secondary to a fall at home History of Present Illness: The patient is a 63 year old M [with significant DJD of his hip and significant antecedent right hip pain. He uses a wheeled walker at home to ambulate. He fell at home suffering an intertrochanteric fracture of his right hip. He has multiple medical co-morbidities and bilateral heel ulcers. He was seen by podiatry yesterday. He is well known to them. He had the right heel debrided yesterday. Podiatry consult in chart and reviewed.] Past Medical History Past Medical History (Chronic Problems): Chronic Problems Decubitus ulcer of heel, right, unstageable (Chronic) Cellulitis of right heel (Chronic) S/P PTCA (percutaneous transluminal coronary angioplasty) (Chronic) Cardiomyopathy (Chronic) 38% gated nuclear EF on 11/03/18 ICD (implantable cardioverter-defibrillator) in place (Chronic) mediport placement (Chronic) Hyperlipidemia (Chronic) DM type 2 (diabetes mellitus, type 2) (Chronic) Chronic CHF (congestive heart failure) (Chronic) ef=25% as of 04/04 Carotid artery stenosis (Chronic) R CEA CAD (coronary artery disease) (Chronic) extensive disease multiple stents Hx of CABG (Chronic) Obesity (Chronic) Benign hypertension (Chronic) Allergies metoclopramide HCl [From Reglan] Adverse Reaction (Verified 11/05/18 11:26) goofy, anxious, elevated BP ondansetron HCl [From Zofran] Adverse Reaction (Verified 11/05/18 11:26) goofy, anxious, elevated BP Qdhjqxu-Lug-Wvl Reductase Inhibitor Adverse Reaction (Verified 11/05/18 11:26) rhabdomyolosis Home Medications: Ambulatory Orders Medication Instructions Recorded Isosorbide Mononitrate [Imdur] 30 mg PO BID 03/05/16 Amlodipine [Norvasc] 10 mg PO DAILY 10/13/18 Atorvastatin Calcium [Lipitor] 80 mg PO QHS 10/13/18 Duloxetine HCl 30 mg PO DAILY 10/13/18 Ferrous Sulfate [Ferosul] 325 mg PO QODAY 10/13/18 Gabapentin 600 mg PO TID 10/13/18 Hydroxyzine HCl 25 mg PO TID PRN 10/13/18 Melatonin 20 mg PO QHS PRN 10/13/18 Sertraline HCl 100 mg PO DAILY 10/13/18 hydrALAZINE [Apresoline] 25 mg PO TID 10/13/18 Aspirin [Aspirin, Baby] 81 mg PO DAILY@0800 tab.chew 11/03/18 Furosemide [Lasix] 40 mg PO DAILY #30 tab 11/03/18 Tamsulosin HCl [Flomax] 0.4 mg PO DAILY@0830 #30 cap 11/03/18 Carvedilol 25 mg PO BID 11/05/18 Insulin Glargine,Hum.rec.anlog 30 unit SC BID 11/05/18 [Basaglar Kwikpen U-100] Tizanidine HCl 8 mg PO TID PRN PRN 11/05/18 Surgical History: appendectomy, cataract, cholecystectomy, coronary bypass surgery - 2004 - [place], herniorrhaphy, tonsillectomy, - - Cardiac stent placement ?24 (according to patient), right carotid endarterectomy. Psychiatric History: No pertinent psych hx Lives: With Family - he and his daughter live together, - - Smoking Status: Never smoker Tobacco Use: Non-smoker Alcohol: Rare Drugs: None - *Family History Maternal History Items: No pertinent history Paternal History Items: Heart Disease - of an [place] at age 61 Sibling History Items: No pertinent history Patient Problems: Active and Suspected Problems LISSA (obstructive sleep apnea) (Acute) - Physical Exam General: Alert, Oriented x3, No apparent distress Skin: Ulcer/ Wound - bilateral heels. Dressing in place on right. Musculoskeletal: Tenderness - right hip, motion not tested due to known fracture. Neurological: Neuro grossly intact - Distal sensation is diminished secondary to peripheral neuropathy Psych/Mental Status: Appropriate Comment: xrays and CT reviewed Vital Signs Temp Pulse Resp BP Pulse Ox 99.2 F H 62 18 133/76 H 94 11/06/18 10:00 11/06/18 10:00 11/06/18 10:00 11/06/18 10:11/06/18 10:00 Oxygen Flow Rate (L/min) 3 Oxygen Delivery Method Nasal Cannula Weight: 263 lb 10.766 oz Body Mass Index (BMI) 38.9 Finger Stick Blood Glucose 42 Intake and Output for Last 24 Hours 11/04/18 11/05/18 11/06/18 23:59 23:59 23:59 Intake Total 400 / 400 1264 / 1264 Output Total 450 / 450 300 / 300 Balance -50 / -50 964 / 964 Microbiology Past 72 Hours 11/05/18 16:45 Gram Stain - Final Wound - Heel Right Laboratory Tests Past 24 Hrs 11/05/18 11/05/18 11/05/18 12:50 12:50 12:50 WBC 8.6 RBC 3.61 L Hgb 10.5 L Hct 33.8 L MCV 93.6 MCH 29.1 MCHC 31.1 L RDW 17.2 H RDW Differential 59.0 H Plt Count 166 MPV 9.6 PT 17.0 H INR 1.4 Sodium 136 Potassium 3.5 Chloride 103 Carbon Dioxide 26.0 Anion Gap 7 BUN 46 H Creatinine 1.36 H Estim Creat Clear Calc 56.32 Est GFR (MDRD) Af Amer 68 Est GFR (MDRD) Non-Af 56 L BUN/Creatinine Ratio 33.8 H Glucose 275 H Hemoglobin A1c Calcium 8.0 L Phosphorus Magnesium Triglycerides Cholesterol LDL Cholesterol VLDL Cholesterol HDL Cholesterol Urine Color Urine Clarity Urine pH Ur Specific [place] Urine Protein Urine Glucose (UA) Urine Ketones Urine Occult Blood Urine Nitrite Urine Bilirubin Urine Urobilinogen Ur Leukocyte Esterase Urine RBC Urine WBC Ur Squamous Epith Cells Urine Bacteria Urine Mucus Blood Type Antibody Screen 11/05/18 11/05/18 11/05/18 12:50 12:50 12:50 WBC RBC Hgb Hct MCV MCH MCHC RDW RDW Differential Plt Count MPV PT INR Sodium Potassium Chloride Carbon Dioxide Anion Gap BUN Creatinine Estim Creat Clear Calc Est GFR (MDRD) Af Amer Est GFR (MDRD) Non-Af BUN/Creatinine Ratio Glucose Hemoglobin A1c 7.8 H Calcium Phosphorus 2.2 L Magnesium 2.4 Triglycerides Cholesterol LDL Cholesterol VLDL Cholesterol HDL Cholesterol Urine Color Urine Clarity Urine pH Ur Specific [place] Urine Protein Urine Glucose (UA) Urine Ketones Urine Occult Blood Urine Nitrite Urine Bilirubin Urine Urobilinogen Ur Leukocyte Esterase Urine RBC Urine WBC Ur Squamous Epith Cells Urine Bacteria Urine Mucus Blood Type A POSITIVE Antibody Screen NEGATIVE 11/05/18 11/06/18 11/06/18 16:45 06:05 06:05 WBC 10.2 RBC 3.45 L Hgb 10.0 L Hct 32.5 L MCV 94.2 H MCH 29.0 MCHC 30.8 L RDW 16.8 H RDW Differential 58.4 H Plt Count 189 MPV 9.8 PT INR Sodium 135 L Potassium 4.3 Chloride 100 Carbon Dioxide 28.0 Anion Gap 7 BUN 47 H Creatinine 1.76 H Estim Creat Clear Calc 43.52 Est GFR (MDRD) Af Amer 51 L Est GFR (MDRD) Non-Af 42 L BUN/Creatinine Ratio 26.7 H Glucose 231 H Hemoglobin A1c Calcium 8.1 L Phosphorus Magnesium 2.7 H Triglycerides 99 Cholesterol 76 LDL Cholesterol 31 VLDL Cholesterol 20 HDL Cholesterol 25 L Urine Color Yellow Urine Clarity Clear Urine pH 5.0 Ur Specific [place] 1.015 Urine Protein 100 H Urine Glucose (UA) 250 H Urine Ketones 5 H Urine Occult Blood 10 H Urine Nitrite Negative Urine Bilirubin Negative Urine Urobilinogen 1 H Ur Leukocyte Esterase Negative Urine RBC 0 SEEN Urine WBC 0 SEEN Ur Squamous Epith Cells 0 SEEN Urine Bacteria 0 SEEN Urine Mucus 0 SEEN Blood Type Antibody Screen POC Glucose 11/06/18 11/05/18 06:36 21:32 POC Glucose 228 H 213 H Assessment/Plan All Active Problems Acute kidney injury (Resolved) LISSA (obstructive sleep apnea) (Acute) Anemia (Acute) Abnormal cardiac enzyme level (Resolved) Chest pain (Resolved) Shortness of breath (Resolved) hx epidural abscess (Resolved) Intertrochanteric fracture right hip with significant underlying DJD. Bilateral heel ulcers Multiple medical co-morbidities. This patient was scheduled for a right THR in 2015 which was ultimately cancelled due to medical co-morbidities. He is medically more stable now and I think he would benefit most from a right THR. Will discuss case with my partner (Dr. Moreira) who is our total joint specialist. He is unavailable until next week to do this procedure. Patient understands this. If Dr. Moreira is unable or unwilling to do his surgery here due to the patient's medical co-morbidities, the patient may need transferred to a tertiary facility.
--- NOTE | 2018-11-06 12:15 | CASEMGMT ---
RN CHARLES Face to Face with patient for initial transition planning/care coordination assessment. RN CM introduced self and role at [facility]. Patient lying in bed, alert and oriented. Patient willing to participate in assessment and is able to answer all questions appropriately. Care providers, pharmacy, and demographics verified. Patient wishes to discharge home but is willing to go to SNF if necessary. Patient states he has no further needs or concerns at this time. CM to follow for discharge planning needs that may arise. PCP: Darrick Specialists: None Preferred Pharmacy: [facility] Insurance: [facility] Prescription Benefit: Yes Living Will/HPOA: Yes, daughter Lorie Colunga LNOK: Daughter Living Arrangements: Patient lives with daughter in town house. Bed and bath on 1st floor. Transportation: Daughter DME/HHC: Patient states he has shower chair, grab bars, walker, and cpap at home. Disposition Plan: TBD. Surgery planned for 11/11/18. Will monitor PT/OT Debra MENDOZA, RN, CM
[2018-11-06 12:26] LABS: Bedside Glucose 169 mg/dL (70-110)
[2018-11-06] MEDS: Glucerna Shake 120 ML LIQUID PO ×3 (13:58→22:10)
--- NOTE | 2018-11-06 15:37 | PCM.RX.CS ---
Consult Pharmacy has been consulted to manage selected antiobiotic: Vancomycin Type of Consult: New start Suspected Infection: Skin/Soft tissue Labs: Sodium 135 mmol/L (136-145) L 11/06/18 06:05 Potassium 4.3 mmol/L (3.5-5.1) 11/06/18 06:05 Chloride 100 mmol/L (98-107) 11/06/18 06:05 Carbon Dioxide 28.0 mmol/L (21.0-32.0) 11/06/18 06:05 Anion Gap 7 (5-15) 11/06/18 06:05 BUN 47 mg/dL (7-18) H 11/06/18 06:05 Creatinine 1.76 mg/dL (0.70-1.30) H 11/06/18 06:05 Est GFR (MDRD) Af Amer 51 mL/min (>60) L 11/06/18 06:05 Est GFR (MDRD) Non-Af 42 mL/min (>60) L 11/06/18 06:05 BUN/Creatinine Ratio 26.7 RATIO (10-20) H 11/06/18 06:05 Glucose 231 mg/dL (74-106) H 11/06/18 06:05 Microbiology: Microbiology 11/05/18 16:45 Wound - Heel Right Gram Stain - Final 11/05/18 16:45 Wound - Heel Right Wound Culture - Preliminary Staphylococcus species Beta hemolytic organism Weight used for dosin kg Goal Trough: 10-15 mcg/mL Pharmacy Plan for Drug Dosing: Discussed with Dr Woods. Patient recently here and received vanc, went into renal failure. Due to concurrent medications, Dr Woods would like for patient to start on vancomycin 1000mg IV q24h with no loading dose and trough prior to 4th dose. Pharmacy Service will continue to monitor and adjust dosing as required.
[2018-11-06] MEDS: 0.9% Normal Saline 1,000 ML 50 ML IV (15:40)
[2018-11-06] MEDS: Vancomycin IV 1,000 MG/200 ML BAG 200 MG IV (16:25)
[2018-11-06 16:45] LABS: Bedside Glucose 151 mg/dL (70-110)
[2018-11-06] MEDS: Morphine 2 MG/ML Syringe IV ×2 (18:21→22:22)
[2018-11-06 19:56] LABS: Probe Check PASS; Staph aureus DNA By PCR POSITIVE (Negative)
[2018-11-06 19:57] LABS: M R Staph aureus DNA By PCR Negative (Negative); Probe Check PASS; Specimen Processing Control PASS
[2018-11-06 19:57] LABS: M R Staph aureus DNA By PCR POSITIVE (Negative)
[2018-11-06] MEDS: Atorvastatin Calcium 80 MG Tablet PO (22:10)
[2018-11-06] MEDS: Senna/Docusate Sodium 1 Tablet 2 TABLET PO (22:10)
[2018-11-06 22:20] LABS: Bedside Glucose 104 mg/dL (70-110)
[2018-11-06] MEDS: MELATONIN 10 MG TABLET 20 MG PO (23:07)
[2018-11-07] VITALS (9 sets, daily range): BP systolic 116–137; BP diastolic 57–73; PULSE 64–72; RESP 18; TEMP 36.3–37.8; O2SAT 93–95
[2018-11-07] MEDS: proMETHazine 25 MG/ML Syringe 6.25 MG IV ×3 (00:21→16:00)
[2018-11-07] MEDS: 0.9% NaCl Peripheral Flush Adult/Peds IV ×9 (00:21→15:59)
[2018-11-07] MEDS: Morphine 2 MG/ML Syringe IV ×4 (01:41→16:00)
[2018-11-07] MEDS: hydrALAZINE 25 MG Tablet PO ×2 (05:30→14:23)
[2018-11-07] MEDS: Menthol/Lanolin/Calamine/Znox 113 GM Tube 1 APPLIC TOPICAL ×2 (05:30→14:23)
[2018-11-07 06:09] LABS: Anion Gap 8 (5-15); BUN 51 mg/dL (7-18); BUN/Creat Ratio 21.7 RATIO (10-20); Calcium,Total 8.1 mg/dL (8.5-10.1); Chloride 101 mmol/L (98-107); Creatinine, Serum 2.35 mg/dL (0.70-1.30); EST Glomerular Filtration Rate 30 mL/min (>60); Est Glom Filt Rate - Afr Amer 36 mL/min (>60); Estimated Creatinine Clearance 32.59 ml/min; Glucose 112 mg/dL (74-106); Potassium 4.5 mmol/L (3.5-5.1); Sodium Level 136 mmol/L (136-145)
[2018-11-07 06:51] LABS: Bedside Glucose 116 mg/dL (70-110)
[2018-11-07] MEDS: Enoxaparin 40 MG/0.4 ML Syringe SC (08:00)
[2018-11-07] MEDS: Sertraline 100 MG Tablet PO (08:00)
[2018-11-07] MEDS: Pantoprazole Sodium 40 MG Tablet PO (08:00)
[2018-11-07] MEDS: Gabapentin 600 MG Tablet PO ×2 (08:01→11:07)
[2018-11-07] MEDS: Isosorbide Mononitrate 30 MG Tablet PO (08:01)
[2018-11-07] MEDS: Carvedilol 25 MG Tablet PO (08:01)
[2018-11-07] MEDS: Furosemide 40 MG Tablet PO (08:01)
[2018-11-07] MEDS: Ferrous Sulfate 325 MG Tablet PO (08:01)
[2018-11-07] MEDS: amLODIPine 10 MG Tablet PO (08:01)
[2018-11-07] MEDS: Tamsulosin HCl 0.4 MG Capsule PO (08:01)
[2018-11-07] MEDS: Glucerna Shake 120 ML LIQUID PO ×2 (08:01→14:23)
[2018-11-07] MEDS: Aspirin 81 MG TAB.CHEW PO (08:01)
[2018-11-07] MEDS: DULoxetine Hcl 30 MG Capsule PO (08:01)
[2018-11-07 11:15] LABS: Bedside Glucose 109 mg/dL (70-110)
--- NOTE | 2018-11-07 11:43 | PCM.CONS.R ---
Problem List (1) Acute kidney injury Status: Resolved Consultation - Renal PCP/ Referring MD: Requesting physician: [] Primary care physician: Out of Town Doctor - History of Present Illness History of Present Illness: The patient is a 63 year old M past medical history of coronary artery disease status post PCI , ischemic cardiomyopathy with last ejection fraction of 38% , status post AICD placement , hypertension , diabetes . Patient had recent acute kidney injury from possible vancomycin induced ATN . Patient presented to the hospital after a fall . X-ray shows right hip fracture . Renal team was consulted today for worsening kidney function . In the previous AK I , creatinine peaked at 5.4 . Patient did not the dialysis . Patient presented this time with a creatinine 1.3 and it has been gradually increased to 1.7 and then 2.2 today . Patient was started on vancomycin again this admission for heel ulcers culture positive for MRSA . Patient is complaining of hip pain . Edema is well controlled . Patient is on Lasix 40 mg p.o. daily . Patient is not on SHEEBA inhibitor or ARB . Review of system : 12 system review is negative except as mentioned HPI [] - Allergies Allergies: Allergies metoclopramide HCl [From Reglan] Adverse Reaction (Verified 11/05/18 11:26) goofy, anxious, elevated BP ondansetron HCl [From Zofran] Adverse Reaction (Verified 11/05/18 11:26) goofy, anxious, elevated BP Gxorxmh-Sys-Lgk Reductase Inhibitor Adverse Reaction (Verified 11/05/18 11:26) rhabdomyolosis - Current Medications Current Medications: Current Medications Amlodipine Besylate (Norvasc) 10 mg PO DAILY [facility] Last Admin: 11/07/18 08:01 Dose: 10 mg Aspirin (Aspirin, Baby) 81 mg PO DAILY@0800 [facility] Last Admin: 11/07/18 08:01 Dose: 81 mg Atorvastatin Calcium (Lipitor) 80 mg PO QHS [facility] Last Admin: 11/06/18 22:10 Dose: 80 mg Bisacodyl (Dulcolax) 10 mg RECTAL .X1 PRN PRN PRN Reason: See label comments Bisacodyl (Dulcolax) 10 mg PO .X1 PRN PRN PRN Reason: See label comments Calamine/Phenol (Calmoseptine Ointment) 1 applic TOPICAL TID [facility]; Protocol Last Admin: 11/07/18 05:30 Dose: 1 applicatio Carvedilol (Coreg) 25 mg PO BID [facility] Last Admin: 11/07/18 08:01 Dose: 25 mg Diphenhydramine HCl (Benadryl) 12.5 - 25 mg PO Q6H PRN PRN PRN Reason: Pruritis Duloxetine HCl (Cymbalta) 30 mg PO DAILY [facility] Last Admin: 11/07/18 08:01 Dose: 30 mg Enoxaparin Sodium (Lovenox) 40 mg SC DAILY [facility] Last Admin: 11/07/18 08:00 Dose: 40 mg Ferrous Sulfate (Ferrous Sulfate) 325 mg PO DAILYCM [facility] Last Admin: 11/07/18 08:01 Dose: 325 mg Furosemide (Lasix) 40 mg PO DAILY [facility] Last Admin: 11/07/18 08:01 Dose: 40 mg Gabapentin (Neurontin) 600 mg PO TIDCM [facility] Last Admin: 11/07/18 11:07 Dose: 600 mg Hydralazine HCl (Apresoline) 25 mg PO TID [facility] Last Admin: 11/07/18 05:30 Dose: 25 mg Naloxone HCl 4 mg/ Dextrose 504 mls @ 0 mls/hr IV .Q0M PRN; Protocol PRN Reason: To maintain Resp. rate >10 Vancomycin IV Pharmacy to Dose (1 ea/ Sodium Chloride) 500 mls @ 250 mls/hr IV DAILY [facility]; Protocol Vancomycin HCl (Vancomycin) 1,000 mg in 200 mls @ 200 mls/hr IV Q24H [facility] Last Admin: 11/06/18 16:25 Dose: 200 mls/hr Insulin Glargine (Lantus (Bkc)) 25 units SC DAILY [facility] Last Admin: 11/07/18 08:01 Dose: 25 units Insulin Glargine (Lantus (Bkc)) 15 units SC QHS [facility] Last Admin: 11/06/18 22:11 Dose: Not Given Insulin Human Lispro (Humalog Kwikpen (Bkc)) [facility]; Protocol Last Admin: 11/07/18 11:08 Dose: Not Given Isosorbide Mononitrate (Imdur) 30 mg PO BID [facility] Last Admin: 11/07/18 08:01 Dose: 30 mg Magnesium Hydroxide (Milk Of Magnesia) 30 ml PO DAILY PRN PRN PRN Reason: Constipation Melatonin (Melatonin) 20 mg PO QHS PRN PRN Reason: SLEEP Last Admin: 11/06/18 23:07 Dose: 20 mg Morphine Sulfate () 100 mg IV UD [facility]; Protocol Last Admin: 11/05/18 17:19 Dose: 100 mg Morphine Sulfate () 2 mg IV Q3H PRN PRN PRN Reason: SEVERE PAIN (6-10/10) Last Admin: 11/07/18 06:40 Dose: 2 mg Naloxone HCl (Narcan) 0.02 mg IV Q1M PRN PRN Reason: RR <10 and pt unresponsive Nutritional Formula (Lactose Free) (Glucerna Shake) 120 ml PO 4X/DAY [facility] Last Admin: 11/07/18 08:01 Dose: 120 ml Pantoprazole Sodium (Protonix) 40 mg PO DAILY [facility] Last Admin: 11/07/18 08:00 Dose: 40 mg Potassium Ch[facility] ([facility]Dur) [facility] Last Admin: 11/07/18 08:01 Dose: 20 meq Promethazine HCl (Phenergan) 6.25 mg IV Q4H PRN PRN PRN Reason: NAUSEA/VOMITING Last Admin: 11/07/18 07:20 Dose: 6.25 mg Senna/Docusate Sodium (Senokot-S, Kaur-Colace) 2 tablet PO QHS [facility] Last Admin: 11/06/18 22:10 Dose: 2 tablet Sertraline HCl (Zoloft) 100 mg PO DAILY [facility] Last Admin: 11/07/18 08:00 Dose: 100 mg Sodium Chloride () 5 - 15 ml IV UD PRN PRN Reason: SALINE FLUSH Last Admin: 11/07/18 07:23 Dose: 10 ml Sodium Chloride ([place] Nasal [place]) 1 spray NASAL TID PRN PRN PRN Reason: NASAL DRYNESS Tamsulosin HCl (Flomax) 0.4 mg PO DAILY@0830 [facility] Last Admin: 11/07/18 08:01 Dose: 0.4 mg Tizanidine HCl (Zanaflex) 4 mg PO TID PRN PRN Reason: SPASMS - Past Medical History Past Medical History (Chronic Problems): Chronic Problems Decubitus ulcer of heel, right, unstageable (Chronic) Cellulitis of right heel (Chronic) S/P PTCA (percutaneous transluminal coronary angioplasty) (Chronic) Cardiomyopathy (Chronic) 38% gated nuclear EF on 11/03/18 ICD (implantable cardioverter-defibrillator) in place (Chronic) mediport placement (Chronic) Hyperlipidemia (Chronic) DM type 2 (diabetes mellitus, type 2) (Chronic) Chronic CHF (congestive heart failure) (Chronic) ef=25% as of 04/04 Carotid artery stenosis (Chronic) R CEA CAD (coronary artery disease) (Chronic) extensive disease multiple stents Hx of CABG (Chronic) Obesity (Chronic) Benign hypertension (Chronic) - Past Surgical History Surgical History: appendectomy, cataract, cholecystectomy, coronary bypass surgery - 2004 - [place], herniorrhaphy, tonsillectomy, - - Cardiac stent placement ?24 (according to patient), right carotid endarterectomy. - Social History Smoking Status: Never smoker Alcohol: Rare Drugs: None - Family History Maternal History Items: No pertinent history Paternal History Items: Heart Disease - of an [place] at age 61 Sibling History Items: No pertinent history Patient Problems: Active and Suspected Problems LISSA (obstructive sleep apnea) (Acute) - Physical Exam General: Alert, Oriented x3 HEENT: Atraumatic Oral: Moist Mucosa Neck: Supple, No JVD Lungs: Clear to auscultation, Normal air movement, No rhonchi, No wheeze Cardiovascular: Regular rate, Regular Rhythm, Normal S1, Normal S2 Abdomen: Bowel Sounds Present, Soft, Non Tender Extremities: No clubbing, No cyanosis, Edema - +1 edema of lower extremity Lymphatic: No Cervical, Supraclavicular, or Inguinal Adenopathy Neurological: Cranial nerves II-XII grossly intact, Neuro grossly intact Psych/Mental Status: Normal Affect Vital Signs Temp Pulse Resp BP Pulse Ox 100.0 F H 68 18 121/63 H 93 11/07/18 08:16 11/07/18 08:16 11/07/18 08:16 11/07/18 08:16 11/07/18 08:16 Oxygen Flow Rate (L/min) 1 Oxygen Delivery Method Room Air Weight: 119.6 kg Body Mass Index (BMI) 38.9 Finger Stick Blood Glucose 42 Intake and Output for Last 24 Hours 11/05/18 11/06/18 11/07/18 23:59 23:59 23:59 Intake Total 400 / 400 1803.4 / 1803.4 1822 / 1822 Output Total 450 / 450 525 / 525 150 / 150 Balance -50 / -50 1278.4 / 1278.4 1672 / 1672 Microbiology Past 72 Hours 11/05/18 16:35 Urine Culture - Preliminary Urine Catheter - Catheter Culture exhibits no growth. 11/05/18 16:45 Gram Stain - Final Wound - Heel Right Wound Culture - Preliminary Staphylococcus species Beta hemolytic organism Laboratory Tests Past 24 Hrs 11/06/18 11/06/18 11/07/18 18:15 18:25 05:45 Sodium 136 Potassium 4.5 Chloride 101 Carbon Dioxide 27.0 Anion Gap 8 BUN 51 H Creatinine 2.35 H Estim Creat Clear Calc 32.59 Est GFR (MDRD) Af Amer 36 L Est GFR (MDRD) Non-Af 30 L BUN/Creatinine Ratio 21.7 H Glucose 112 H Calcium 8.1 L S.aureus Protein A PCR POSITIVE H MRSA (PCR) Negative POSITIVE H POC Glucose 11/07/18 11/07/18 11/06/18 11:06 06:39 22:05 POC Glucose 109 116 H 104 11/06/18 11/06/18 16:33 12:02 POC Glucose 151 H 169 H Assessment/Plan All Active Problems Acute kidney injury (Resolved) LISSA (obstructive sleep apnea) (Acute) Anemia (Acute) Abnormal cardiac enzyme level (Resolved) Chest pain (Resolved) Shortness of breath (Resolved) hx epidural abscess (Resolved) 1-acute kidney injury on chronic kidney disease. Patient has recent history of acute kidney injury from possible vancomycin induced ATN. Creatinine peaked at 5.4. Patient did not need dialysis. Creatinine improved to 1.3 when he presented to the hospital this admission. Creatinine has been increasing slowly since admission. Creatinine today 2.3. Patient said he is making less urine. He has a Corea catheter. UA at admission showed 100 protein, 10 occult blood. No white cell. No red cell. AYE this admission is most probablyfrom vancomycin toxicity. I prefer to switch vancomycin to Zyvox. Please check vancomycin trough level. We will do UA along with urine sodium and urine creatinine to calculate FENa No indication for hemodialysis. Please avoid SHEEBA inhibitor or ARB. Please check renal function in a.m. 2 hypertension-: Blood pressure is well controlled. I will make no changes in blood pressure medication. Please avoid SHEEBA inhibitor or ARB due to acute kidney injury. 3-CHF. Will compensating. Continue the same dose of Lasix. 4-right hip fracture. Management as per the orthopedic team. Thank you for the consult. Renal team will continue to follow. I will discuss with the primary service physician
--- NOTE | 2018-11-07 11:49 | CON.PCM_ITS ---
Problem List (1) Acute kidney injury Status: Resolved Consultation - Renal PCP/ Referring MD: Requesting physician: [] Primary care physician: Out of Town Doctor - History of Present Illness History of Present Illness: The patient is a 63 year old M past medical history of coronary artery disease status post PCI , ischemic cardiomyopathy with last ejection fraction of 38% , status post AICD placement , hypertension , diabetes . Patient had recent acute kidney injury from possible vancomycin induced ATN . Patient presented to the hospital after a fall . X-ray shows right hip fracture . Renal team was consulted today for worsening kidney function . In the previous AK I , creatinine peaked at 5.4 . Patient did not the dialysis . Patient presented this time with a creatinine 1.3 and it has been gradually increased to 1.7 and then 2.2 today . Patient was started on vancomycin again this admission for heel ulcers culture positive for MRSA . Patient is complaining of hip pain . Edema is well controlled . Patient is on Lasix 40 mg p.o. daily . Patient is not on SHEEBA inhibitor or ARB . Review of system : 12 system review is negative except as mentioned HPI [] - Allergies Allergies: Allergies metoclopramide HCl [From Reglan] Adverse Reaction (Verified 11/05/18 11:26) goofy, anxious, elevated BP ondansetron HCl [From Zofran] Adverse Reaction (Verified 11/05/18 11:26) goofy, anxious, elevated BP Vpndlgc-Izy-Eju Reductase Inhibitor Adverse Reaction (Verified 11/05/18 11:26) rhabdomyolosis - Current Medications Current Medications: Current Medications Amlodipine Besylate (Norvasc) 10 mg PO DAILY [facility] Last Admin: 11/07/18 08:01 Dose: 10 mg Aspirin (Aspirin, Baby) 81 mg PO DAILY@0800 [facility] Last Admin: 11/07/18 08:01 Dose: 81 mg Atorvastatin Calcium (Lipitor) 80 mg PO QHS [facility] Last Admin: 11/06/18 22:10 Dose: 80 mg Bisacodyl (Dulcolax) 10 mg RECTAL .X1 PRN PRN PRN Reason: See label comments Bisacodyl (Dulcolax) 10 mg PO .X1 PRN PRN PRN Reason: See label comments Calamine/Phenol (Calmoseptine Ointment) 1 applic TOPICAL TID [facility]; Protocol Last Admin: 11/07/18 05:30 Dose: 1 applicatio Carvedilol (Coreg) 25 mg PO BID [facility] Last Admin: 11/07/18 08:01 Dose: 25 mg Diphenhydramine HCl (Benadryl) 12.5 - 25 mg PO Q6H PRN PRN PRN Reason: Pruritis Duloxetine HCl (Cymbalta) 30 mg PO DAILY [facility] Last Admin: 11/07/18 08:01 Dose: 30 mg Enoxaparin Sodium (Lovenox) 40 mg SC DAILY [facility] Last Admin: 11/07/18 08:00 Dose: 40 mg Ferrous Sulfate (Ferrous Sulfate) 325 mg PO DAILYCM [facility] Last Admin: 11/07/18 08:01 Dose: 325 mg Furosemide (Lasix) 40 mg PO DAILY [facility] Last Admin: 11/07/18 08:01 Dose: 40 mg Gabapentin (Neurontin) 600 mg PO TIDCM [facility] Last Admin: 11/07/18 11:07 Dose: 600 mg Hydralazine HCl (Apresoline) 25 mg PO TID [facility] Last Admin: 11/07/18 05:30 Dose: 25 mg Naloxone HCl 4 mg/ Dextrose 504 mls @ 0 mls/hr IV .Q0M PRN; Protocol PRN Reason: To maintain Resp. rate >10 Vancomycin IV Pharmacy to Dose (1 ea/ Sodium Chloride) 500 mls @ 250 mls/hr IV DAILY [facility]; Protocol Vancomycin HCl (Vancomycin) 1,000 mg in 200 mls @ 200 mls/hr IV Q24H [facility] Last Admin: 11/06/18 16:25 Dose: 200 mls/hr Insulin Glargine (Lantus (Bkc)) 25 units SC DAILY [facility] Last Admin: 11/07/18 08:01 Dose: 25 units Insulin Glargine (Lantus (Bkc)) 15 units SC QHS [facility] Last Admin: 11/06/18 22:11 Dose: Not Given Insulin Human Lispro (Humalog Kwikpen (Bkc)) [facility]; Protocol Last Admin: 11/07/18 11:08 Dose: Not Given Isosorbide Mononitrate (Imdur) 30 mg PO BID [facility] Last Admin: 11/07/18 08:01 Dose: 30 mg Magnesium Hydroxide (Milk Of Magnesia) 30 ml PO DAILY PRN PRN PRN Reason: Constipation Melatonin (Melatonin) 20 mg PO QHS PRN PRN Reason: SLEEP Last Admin: 11/06/18 23:07 Dose: 20 mg Morphine Sulfate () 100 mg IV UD [facility]; Protocol Last Admin: 11/05/18 17:19 Dose: 100 mg Morphine Sulfate () 2 mg IV Q3H PRN PRN PRN Reason: SEVERE PAIN (6-10/10) Last Admin: 11/07/18 06:40 Dose: 2 mg Naloxone HCl (Narcan) 0.02 mg IV Q1M PRN PRN Reason: RR <10 and pt unresponsive Nutritional Formula (Lactose Free) (Glucerna Shake) 120 ml PO 4X/DAY [facility] Last Admin: 11/07/18 08:01 Dose: 120 ml Pantoprazole Sodium (Protonix) 40 mg PO DAILY [facility] Last Admin: 11/07/18 08:00 Dose: 40 mg Potassium Chloride (K[facility]Dur) [facility] Last Admin: 11/07/18 08:01 Dose: 20 meq Promethazine HCl (Phenergan) 6.25 mg IV Q4H PRN PRN PRN Reason: NAUSEA/VOMITING Last Admin: 11/07/18 07:20 Dose: 6.25 mg Senna/Docusate Sodium (Senokot-S, Kaur-Colace) 2 tablet PO QHS [facility] Last Admin: 11/06/18 22:10 Dose: 2 tablet Sertraline HCl (Zoloft) 100 mg PO DAILY [facility] Last Admin: 11/07/18 08:00 Dose: 100 mg Sodium Chloride () 5 - 15 ml IV UD PRN PRN Reason: SALINE FLUSH Last Admin: 11/07/18 07:23 Dose: 10 ml Sodium Chloride (Spiro Nasal [place]) 1 spray NASAL TID PRN PRN PRN Reason: NASAL DRYNESS Tamsulosin HCl (Flomax) 0.4 mg PO DAILY@0830 [facility] Last Admin: 11/07/18 08:01 Dose: 0.4 mg Tizanidine HCl (Zanaflex) 4 mg PO TID PRN PRN Reason: SPASMS - Past Medical History Past Medical History (Chronic Problems): Chronic Problems Decubitus ulcer of heel, right, unstageable (Chronic) Cellulitis of right heel (Chronic) S/P PTCA (percutaneous transluminal coronary angioplasty) (Chronic) Cardiomyopathy (Chronic) 38% gated nuclear EF on 11/03/18 ICD (implantable cardioverter-defibrillator) in place (Chronic) mediport placement (Chronic) Hyperlipidemia (Chronic) DM type 2 (diabetes mellitus, type 2) (Chronic) Chronic CHF (congestive heart failure) (Chronic) ef=25% as of 04/04 Carotid artery stenosis (Chronic) R CEA CAD (coronary artery disease) (Chronic) extensive disease multiple stents Hx of CABG (Chronic) Obesity (Chronic) Benign hypertension (Chronic) - Past Surgical History Surgical History: appendectomy, cataract, cholecystectomy, coronary bypass surgery - 2004 - [place], herniorrhaphy, tonsillectomy, - - Cardiac stent placement ?24 (according to patient), right carotid endarterectomy. - Social History Smoking Status: Never smoker Alcohol: Rare Drugs: None - Family History Maternal History Items: No pertinent history Paternal History Items: Heart Disease - of an [place] at age 61 Sibling History Items: No pertinent history Patient Problems: Active and Suspected Problems LISSA (obstructive sleep apnea) (Acute) - Physical Exam General: Alert, Oriented x3 HEENT: Atraumatic Oral: Moist Mucosa Neck: Supple, No JVD Lungs: Clear to auscultation, Normal air movement, No rhonchi, No wheeze Cardiovascular: Regular rate, Regular Rhythm, Normal S1, Normal S2 Abdomen: Bowel Sounds Present, Soft, Non Tender Extremities: No clubbing, No cyanosis, Edema - +1 edema of lower extremity Lymphatic: No Cervical, Supraclavicular, or Inguinal Adenopathy Neurological: Cranial nerves II-XII grossly intact, Neuro grossly intact Psych/Mental Status: Normal Affect Vital Signs Temp Pulse Resp BP Pulse Ox 100.0 F H 68 18 121/63 H 93 11/07/18 08:16 11/07/18 08:16 11/07/18 08:16 11/07/18 08:16 11/07/18 08:16 Oxygen Flow Rate (L/min) 1 Oxygen Delivery Method Room Air Weight: 119.6 kg Body Mass Index (BMI) 38.9 Finger Stick Blood Glucose 42 Intake and Output for Last 24 Hours 11/05/18 11/06/18 11/07/18 23:59 23:59 23:59 Intake Total 400 / 400 1803.4 / 1803.4 1822 / 1822 Output Total 450 / 450 525 / 525 150 / 150 Balance -50 / -50 1278.4 / 1278.4 1672 / 1672 Microbiology Past 72 Hours 11/05/18 16:35 Urine Culture - Preliminary Urine Catheter - Catheter Culture exhibits no growth. 11/05/18 16:45 Gram Stain - Final Wound - Heel Right Wound Culture - Preliminary Staphylococcus species Beta hemolytic organism Laboratory Tests Past 24 Hrs 11/06/18 11/06/18 11/07/18 18:15 18:25 05:45 Sodium 136 Potassium 4.5 Chloride 101 Carbon Dioxide 27.0 Anion Gap 8 BUN 51 H Creatinine 2.35 H Estim Creat Clear Calc 32.59 Est GFR (MDRD) Af Amer 36 L Est GFR (MDRD) Non-Af 30 L BUN/Creatinine Ratio 21.7 H Glucose 112 H Calcium 8.1 L S.aureus Protein A PCR POSITIVE H MRSA (PCR) Negative POSITIVE H POC Glucose 11/07/18 11/07/18 11/06/18 11:06 06:39 22:05 POC Glucose 109 116 H 104 11/06/18 11/06/18 16:33 12:02 POC Glucose 151 H 169 H Assessment/Plan All Active Problems Acute kidney injury (Resolved) LISSA (obstructive sleep apnea) (Acute) Anemia (Acute) Abnormal cardiac enzyme level (Resolved) Chest pain (Resolved) Shortness of breath (Resolved) hx epidural abscess (Resolved) 1-acute kidney injury on chronic kidney disease. Patient has recent history of acute kidney injury from possible vancomycin induced ATN. Creatinine peaked at 5.4. Patient did not need dialysis. Creatinine improved to 1.3 when he presented to the hospital this admission. Creatinine has been increasing slowly since admission. Creatinine today 2.3. Patient said he is making less urine. He has a Corea catheter. UA at admission showed 100 protein, 10 occult blood. No white cell. No red cell. AYE this admission is most probablyfrom vancomycin toxicity. I prefer to switch vancomycin to Zyvox. Please check vancomycin trough level. We will do UA along with urine sodium and urine creatinine to calculate FENa No indication for hemodialysis. Please avoid SHEEBA inhibitor or ARB. Please check renal function in a.m. 2 hypertension-: Blood pressure is well controlled. I will make no changes in blood pressure medication. Please avoid SHEEBA inhibitor or ARB due to acute kidney injury. 3-CHF. Will compensating. Continue the same dose of Lasix. 4-right hip fracture. Management as per the orthopedic team. Thank you for the consult. Renal team will continue to follow. I will discuss with the primary service physician
--- NOTE | 2018-11-07 13:50 | PCM.HP.ID ---
Problem List (1) Cellulitis of right heel Status: Chronic Reason for Consult: heel infection Consulted by: Dr. Woods History of Present Illness: The patient is a 63 year old M with recent admit for L heel MRSA and enterococcus infection complicated by AYE while on vanc who presented after fall with R hip fracture. Heel has been doing well off of abx. No fever, no n/v/d. Has not noticed heel drainage, redness, or pain. Admitted here, seen by ortho and podiatry. No heel involvement of bone. Wound cx pending. On vanc with rising Cr, so changed to linezolid but not given yet. Feeling ok. Full ROS performed and neg except as noted above. - Medical History Past Medical History (Chronic Problems): Chronic Problems Decubitus ulcer of heel, right, unstageable (Chronic) Cellulitis of right heel (Chronic) S/P PTCA (percutaneous transluminal coronary angioplasty) (Chronic) Cardiomyopathy (Chronic) 38% gated nuclear EF on 11/03/18 ICD (implantable cardioverter-defibrillator) in place (Chronic) mediport placement (Chronic) Hyperlipidemia (Chronic) DM type 2 (diabetes mellitus, type 2) (Chronic) Chronic CHF (congestive heart failure) (Chronic) ef=25% as of 04/04 Carotid artery stenosis (Chronic) R CEA CAD (coronary artery disease) (Chronic) extensive disease multiple stents Hx of CABG (Chronic) Obesity (Chronic) Benign hypertension (Chronic) Allergies/Adverse Reactions: Allergies metoclopramide HCl [From Reglan] Adverse Reaction (Verified 11/05/18 11:26) goofy, anxious, elevated BP ondansetron HCl [From Zofran] Adverse Reaction (Verified 11/05/18 11:26) goofy, anxious, elevated BP Rapvjbr-Esx-Uji Reductase Inhibitor Adverse Reaction (Verified 11/05/18 11:26) rhabdomyolosis Home Medications: Ambulatory Orders Medication Instructions Recorded Isosorbide Mononitrate [Imdur] 30 mg PO BID 03/05/16 Amlodipine [Norvasc] 10 mg PO DAILY 10/13/18 Atorvastatin Calcium [Lipitor] 80 mg PO QHS 10/13/18 Duloxetine HCl 30 mg PO DAILY 10/13/18 Ferrous Sulfate [Ferosul] 325 mg PO QODAY 10/13/18 Gabapentin 600 mg PO TID 10/13/18 Hydroxyzine HCl 25 mg PO TID PRN 10/13/18 Melatonin 20 mg PO QHS PRN 10/13/18 Sertraline HCl 100 mg PO DAILY 10/13/18 hydrALAZINE [Apresoline] 25 mg PO TID 10/13/18 Aspirin [Aspirin, Baby] 81 mg PO DAILY@0800 tab.chew 11/03/18 Furosemide [Lasix] 40 mg PO DAILY #30 tab 11/03/18 Tamsulosin HCl [Flomax] 0.4 mg PO DAILY@0830 #30 cap 11/03/18 Carvedilol 25 mg PO BID 11/05/18 Insulin Glargine,Hum.rec.anlog 30 unit SC BID 11/05/18 [Basaglar Kwikpen U-100] Tizanidine HCl 8 mg PO TID PRN PRN 11/05/18 - Social History Tobacco Use: non-smoker Vital Signs Temp Pulse Resp BP Pulse Ox 100.0 F H 68 18 121/63 H 93 11/07/18 08:16 11/07/18 08:16 11/07/18 08:16 11/07/18 08:16 11/07/18 08:16 Oxygen Flow Rate (L/min) 1 Oxygen Delivery Method Room Air Weight: 119.6 kg Body Mass Index (BMI) 38.9 Finger Stick Blood Glucose 42 Microbiology Past 72 Hours 11/05/18 16:35 Urine Culture - Preliminary Urine Catheter - Catheter Culture exhibits no growth. 11/05/18 16:45 Gram Stain - Final Wound - Heel Right Wound Culture - Preliminary Staphylococcus species Beta hemolytic organism Laboratory Tests Past 24 Hrs 11/06/18 11/06/18 11/07/18 18:15 18:25 05:45 Sodium 136 Potassium 4.5 Chloride 101 Carbon Dioxide 27.0 Anion Gap 8 BUN 51 H Creatinine 2.35 H Estim Creat Clear Calc 32.59 Est GFR (MDRD) Af Amer 36 L Est GFR (MDRD) Non-Af 30 L BUN/Creatinine Ratio 21.7 H Glucose 112 H Calcium 8.1 L S.aureus Protein A PCR POSITIVE H MRSA (PCR) Negative POSITIVE H - Other Studies Radiology: [] reviewed Other Studies: [] Route of nutrition/ use of supplements: [] Nutritional Intake: [] IV Site: [] Corea Catheter: [] - Physical Exam General: Alert, Oriented x3, Cooperative, No apparent distress HEENT: Atraumatic, PERRLA, EOMI Neck: Supple, No Nodes Lungs: Clear to auscultation, Normal air movement Cardiovascular: Regular rate, Regular Rhythm Abdomen: Soft, Non Tender, Non-Distended Extremities: Edema - mild Skin: Ulcer/ Wound - L heel, reviewed photo IV Site: Peripheral, without redness Musculoskeletal: - - R hip soreness Neurological: Cranial nerves II-XII grossly intact - Assessment/Plan Antibiotics: [] Assessment/Plan: [] Active and Suspected Problems LISSA (obstructive sleep apnea) (Acute) L heel infection - recent cxs with MRSA and enterococcus. Improving since last admit. I&D at bedside by podiatry. Cx now with staph and beta hemolytic orgs. PCR (+) MRSA. Rising Cr with vanc. Has been on duloxetine and sertraline, so would like to avoid linezolid with risk of serotonin syndrome. Will change abx to po doxy/amox. Infection of heel appears well controlled. Will follow, thank you.
[2018-11-07 13:53] LABS: Mucous, Urine 0 SEEN /hpf (<or=2+)
[2018-11-07 13:58] LABS: Color, Urine Yellow (Yellow); Glucose, Dipstick Normal (Normal); Ketone-Dipstick 5 mg/dl (Negative); Leukocyte Esterase-Dipstick 500 /ul (Negative); Nitrite-Dipstick Negative (Negative); Occult Blood-Urine 250 /ul (Negative); Protein-Dipstick 100 mg/dl (Negative); Urine Clarity Sl. Cloudy (Clear); Urine Urobilinogen 4 mg/dl (Normal)
[2018-11-07 14:07] LABS: Urine Bilirubin Dipstick 3 mg/dL (Negative)
[2018-11-07 14:11] LABS: Bacteria 1+ /hpf (None Seen); Red Blood Cells-Urine 25-50 SEEN /hpf (0-5); Squamous Epithelial Cells - UA 0-5 SEEN /hpf (0-5); White Blood Cells 25-50 SEEN /hpf (0-5)
[2018-11-07] MEDS: Doxycycline 100 MG CAPSULE PO (14:23)
--- NOTE | 2018-11-07 14:29 | NURSING ---
Daughter Zelda notified of pt transfer to [facility].
[2018-11-07 15:01] LABS: Urine Sodium 7 mmol/L (Not Establ.)
--- NOTE | 2018-11-07 15:57 | PCM.DC.SUM ---
Discharge Date and Diagnosis - Problem List Patient Problems: Active and Suspected Problems LISSA (obstructive sleep apnea) (Acute) Date of Admission: 11/05/18 Date of Discharge: 11/07/18 - Primary Discharge Diagnosis Active and Suspected Problems LISSA (obstructive sleep apnea) (Acute) - Secondary Discharge Diagnosis Chronic Problems Decubitus ulcer of heel, right, unstageable (Chronic) Cellulitis of right heel (Chronic) S/P PTCA (percutaneous transluminal coronary angioplasty) (Chronic) Cardiomyopathy (Chronic) 38% gated nuclear EF on 11/03/18 ICD (implantable cardioverter-defibrillator) in place (Chronic) mediport placement (Chronic) Hyperlipidemia (Chronic) DM type 2 (diabetes mellitus, type 2) (Chronic) Chronic CHF (congestive heart failure) (Chronic) ef=25% as of 04/04 Carotid artery stenosis (Chronic) R CEA CAD (coronary artery disease) (Chronic) extensive disease multiple stents Hx of CABG (Chronic) Obesity (Chronic) Benign hypertension (Chronic) Hospital Course and Treatment Consultations 11/05/18 18:53 Consult: Onc/Wound/rim turning finisher Routine Comment: Operations: None Summary of Care Provided: [] This is a 63-year-old gentleman with with history of multiple comorbidities complicates the present care and expect difficult and delay recovery Including coronary artery disease status post CABG, multiple stents, ischemic cardiomyopathy with EF of about 38% on stress test done on 11/03/2018, chronic systolic congestive heart failure, AICD placement, hyperlipidemia, hypertension, diabetes mellitus type 2, carotid artery stenosis with history of right carotid endarterectomy, chronic renal failure, obstructive sleep apnea was admitted for right hip pain after fall which on further evaluation found to be right hip intertrochanteric fracture with evidence of severe DJD. Patient was seen by Dr. Mensah and recommended further evaluation by Dr. Moreira who is joint a specialist for [facility]. 1. Acute right intertrochanteric hip fracture secondary to fall on chronic degenerative joint disease. Patient is being admitted on regular MedSurg floor. Patient was seen by Dr. Mensah. Pain management. Needs further evaluation by Dr. Moreira. Discussed with Dr. Mensah today he advised transfer to tertiary care center as Dr. Moreira is not available. Patient has advanced left hip joint and needs total hip replacement. Transfer line to [facility] called and discussed with Dr. Alyssia Barreto, hospitalist who accepted the patient. Discussed about the need for senior data warehouse developer to follow-up on recent acute kidney injury. Acute kidney injury on CKD stage III, with oliguria most probably secondary to vancomycin toxicity: ID consult was called. Discussed with ID and prefers amoxicillin and doxycycline as the patient is on Zoloft and duloxetine which is significant interaction with Zyvox. No more vancomycin in the future. Patient has vancomycin induced ATN. Patient had 1500 mL normal saline given. Blood pressure is stable. The patient had 325 mill in output. Seen by senior data warehouse developer. Discussed with him. 2. Decubitus ulcer right heel, stage II nonhealing, 3 x 3 cm and left heel ulceration/crack: Being followed by transplant nurse practitioner. Patient had debridement done. Dr. Chen consult appreciated. Preliminary Gram stain shows Staphylococcus species and beta hemolytic strep toe coccus. Staph species most likely MRSA based on the previous cultures. Amoxicillin and doxycycline. 3. Ischemic cardiomyopathy with chronic systolic heart failure with EF 38% on recent stress test: stable. Compensated. 4. Coronary artery disease with history of CABG and PTCA/stents 5. Diabetes mellitus type 2 complicated with diabetic neuropathy and peripheral arterial disease: UA is positive of proteinuria and glucosuria. Blood sugar is controlled. 6. Hypertension blood pressure is controlled. 7. Hyperlipidemia 8. Morbid obesity 9. Normochromic normocytic anemia with recent acute blood loss secondary to peptic ulcer disease with hemorrhage 10. Recent acute kidney injury with creatinine of 5.43 on 10/19/2018-never required dialysis and current creatinine is 1.36 11. Mild hypokalemia: K is corrected. K 4.3 12. Carotid artery stenosis with history of right CEA 13. Peptic ulcer disease 14. History of AICD placement 15. Obstructive sleep apnea-compliant with CPAP 16. Hypophosphatemia Transfer line to [facility] called and discussed with Dr. Alyssia Barreto, hospitalist who accepted the patient. Discussed about the need for senior data warehouse developer to follow-up on recent acute kidney injury. Total time spent more than 40 minutes in the discharge process. Transfer process discussed with the patient and all questions were answered to patient's satisfaction.. Patient Problems: Active and Suspected Problems LISSA (obstructive sleep apnea) (Acute) Subjective: Seen and examined in the morning and afternoon. Yesterday vancomycin was started after discussion with the pharmacist at the lower dose on 1 g. Patient had oliguria with increase in creatinine from 1.7 6 to2.35 dose of vancomycin 1 g. Vancomycin is stopped. - Physical Exam General: Alert, Oriented x3, Cooperative HEENT: Atraumatic, PERRLA, EOMI, Normocephalic Neck: Supple, No JVD, Negative Carotid Bruits Lungs: Diminished, Rales, Rhonchi, - - No shortness of breath. Cardiovascular: Regular rate, Regular Rhythm, Normal S1, Normal S2, No murmurs Abdomen: Bowel Sounds Present, Soft, Non Tender, Non-Distended, - - Corea catheter draining clear urine. Extremities: Capillary Refill Less than 3 Seconds, Edema Skin: Ulcer/ Wound - Bilateral heel ulcers. Musculoskeletal: Arthritic Changes, Muscle Wasting, Tenderness - Tenderness over right hip. Right hip fracture with external rotation. Neurological: Cranial nerves II-XII grossly intact Psych/Mental Status: Normal Affect, Appropriate Vital Signs Temp Pulse Resp BP Pulse Ox 99.0 F 64 18 116/57 L 93 11/07/18 14:25 11/07/18 14:25 11/07/18 14:25 11/07/18 14:25 11/07/18 14:25 Oxygen Flow Rate (L/min) 1 Oxygen Delivery Method Room Air Weight: 263 lb 10.766 oz Body Mass Index (BMI) 38.9 Finger Stick Blood Glucose 42 Intake and Output for Last 24 Hours 11/05/18 11/06/18 11/07/18 23:59 23:59 23:59 Intake Total 400 / 400 1803.4 / 1803.4 2564 / 2564 Output Total 450 / 450 525 / 525 250 / 250 Balance -50 / -50 1278.4 / 1278.4 2314 / 2314 Microbiology Past 72 Hours 11/05/18 16:35 Urine Culture - Preliminary Urine Catheter - Catheter Culture exhibits no growth. 11/05/18 16:45 Gram Stain - Final Wound - Heel Right Wound Culture - Preliminary Staphylococcus species Beta hemolytic organism Laboratory Tests Past 24 Hrs 11/06/18 11/06/18 11/07/18 18:15 18:25 05:45 Sodium 136 Potassium 4.5 Chloride 101 Carbon Dioxide 27.0 Anion Gap 8 BUN 51 H Creatinine 2.35 H Estim Creat Clear Calc 32.59 Est GFR (MDRD) Af Amer 36 L Est GFR (MDRD) Non-Af 30 L BUN/Creatinine Ratio 21.7 H Glucose 112 H Calcium 8.1 L Urine Color Urine Clarity Urine pH Ur Specific [place] Urine Protein Urine Glucose (UA) Urine Ketones Urine Occult Blood Urine Nitrite Urine Bilirubin Urine Urobilinogen Ur Leukocyte Esterase Urine RBC Urine WBC Ur Squamous Epith Cells Urine Bacteria Urine Mucus Ur Random Sodium Urine Creatinine S.aureus Protein A PCR POSITIVE H MRSA (PCR) Negative POSITIVE H 11/07/18 11/07/18 11/07/18 13:45 13:45 13:45 Sodium Potassium Chloride Carbon Dioxide Anion Gap BUN Creatinine Estim Creat Clear Calc Est GFR (MDRD) Af Amer Est GFR (MDRD) Non-Af BUN/Creatinine Ratio Glucose Calcium Urine Color Yellow Urine Clarity Sl. Cloudy Urine pH 5.0 Ur Specific [place] 1.020 Urine Protein 100 H Urine Glucose (UA) Normal Urine Ketones 5 H Urine Occult Blood 250 H Urine Nitrite Negative Urine Bilirubin 3 H Urine Urobilinogen 4 H Ur Leukocyte Esterase 500 H Urine RBC 25-50 SEEN Urine WBC 25-50 SEEN Ur Squamous Epith Cells 0-5 SEEN Urine Bacteria 1+ Urine Mucus 0 SEEN Ur Random Sodium 7 Urine Creatinine 302.00 S.aureus Protein A PCR MRSA (PCR) POC Glucose 11/07/18 11/07/18 11/06/18 11:06 06:39 22:05 POC Glucose 109 116 H 104 11/06/18 16:33 POC Glucose 151 H Home Medications: Medications to take at Discharge Isosorbide Mononitrate [Imdur] 30 mg PO BID 03/05/16 Amlodipine [Norvasc] 10 mg PO DAILY 10/13/18 Atorvastatin Calcium [Lipitor] 80 mg PO QHS 10/13/18 Duloxetine HCl 30 mg PO DAILY 10/13/18 Ferrous Sulfate [Ferosul] 325 mg PO QODAY 10/13/18 Gabapentin 600 mg PO TID 10/13/18 Hydroxyzine HCl 25 mg PO TID PRN 10/13/18 Melatonin 20 mg PO QHS PRN 10/13/18 Sertraline HCl 100 mg PO DAILY 10/13/18 hydrALAZINE [Apresoline] 25 mg PO TID 10/13/18 Aspirin [Aspirin, Baby] 81 mg PO DAILY@0800 tab.chew 11/03/18 Furosemide [Lasix] 40 mg PO DAILY #30 tab 11/03/18 Tamsulosin HCl [Flomax] 0.4 mg PO DAILY@0830 #30 cap 11/03/18 Carvedilol 25 mg PO BID 11/05/18 Insulin Glargine,Hum.rec.anlog [Santosaglbrittany Emilynicolette U-100] 30 unit SC BID 11/05/18 Tizanidine HCl 8 mg PO TID PRN PRN 11/05/18 Primary Care Physician: Malik Roper,Out of [Primary Care Provider] - Medical Necessity - Tobacco Use Smoking Status: Never smoker Tobacco Use: Non-smoker Meaningful Use Info Meaningful Use Diagnoses (Choose all that apply): None applicable Code Visit Inpatient E&M: 49496 Disch Hosp
--- OUTSIDE RECORDS SUMMARY | 2019-01-10 09:00 | XMS RPT_ITS ---
:1955 Author Organization [place] Support Name Relationship Address Phone ESTELLA COLUNGA Unavailable [address] + [place] [address] LULA INGRAM Unavailable Unavailable + JORGE ALBERTO VILLAGRAN Unavailable [address] [facility] [address] + [place] [address] JAMAR LORENZANA Unavailable [address] + [place] [address] ESTELLA COLUNGA Unavailable [address] + [place] [address] LULA INGRAM Unavailable Unavailable + JORGE ALBERTO VILLAGRAN Unavailable [address] [facility] [address] + [place] [address] JAMAR LORENZANA Unavailable [address] + [place] [address] LULA COLUNGA Unavailable [address] + [address] [place] [address] D Unavailable Unavailable Unavailable LULA COLUNGA Unavailable [address] + [address] [place] [address] D Unavailable Unavailable Unavailable LULA COLUNGA Unavailable [address] + [address] [place] [address] D Unavailable Unavailable Unavailable LULA COLUNGA Unavailable [address] + [address] [place] [address] D Unavailable Unavailable Unavailable LULA COLUNGA Unavailable [address] + [address] [place] [address] D Unavailable Unavailable Unavailable LULA COLUNGA Unavailable [address] + [address] [place] [address] D Unavailable Unavailable Unavailable LULA COLUNGA Unavailable [address] + [address] [place] [address] D Unavailable Unavailable Unavailable LULA COLUNGA Unavailable [address] + [address] [place] [address] D Unavailable Unavailable Unavailable LULA COLUNGA Unavailable [address] + [address] [place] [address] D Unavailable Unavailable Unavailable LULA COLUNGA Unavailable [address] + [address] [place] [address] D Unavailable Unavailable Unavailable LULA COLUNGA Unavailable [address] + [address] [place] [address] D Unavailable Unavailable Unavailable LULA COLUNGA Unavailable [address] + [address] [place] [address] D Unavailable Unavailable Unavailable LULA COLUNGA Unavailable [address] + [address] [place] [address] D Unavailable Unavailable Unavailable LULA COLUNGA Unavailable [address] + [address] [place] [address] D Unavailable Unavailable Unavailable LULA COLUNGA Unavailable [address] + [address] [place] [address] D Unavailable Unavailable Unavailable LULA COLUNGA Unavailable [address] + [address] [place] [address] D Unavailable Unavailable Unavailable LULA COLUNGA Unavailable [address] + [address] [place] [address] D Unavailable Unavailable Unavailable LULA COLUNGA Unavailable [address] + [address] [place] [address] D Unavailable Unavailable Unavailable LULA COLUNGA Unavailable [address] + [address] [place] [address] D Unavailable Unavailable Unavailable LULA COLUNGA Unavailable [address] + [address] [place] [address] D Unavailable Unavailable Unavailable LULA COLUNGA Unavailable [address] + [address] [place] [address] D Unavailable Unavailable Unavailable LULA COLUNGA Unavailable [address] + [address] [place] [address] D Unavailable Unavailable Unavailable BRENEMAN, ESTELLA Unavailable [address] + [place] [address] LULA INGRAM Unavailable Unavailable + JORGE ALBERTO VILLAGRAN Unavailable [address] [facility] [address] + [place] [address] KABETHANY, JAMAR Unavailable [address] + [place] [address] BRENEMAN, ESTELLA Unavailable [address] + [place] [address] LULA INGRAM Unavailable Unavailable + JORGE ALBERTO VILLAGRAN Unavailable [address] [facility] [address] + [place] [address] KABETHANY, JAMAR Unavailable [address] + [place] [address] BRENEMAN, ESTELLA Unavailable [address] + [place] [address] LULA INGRAM Unavailable Unavailable + JORGE ALBERTO VILLAGRAN Unavailable [address] [facility] [address] + [place] [address] KAUF, JAMAR Unavailable [address] + [place] [address] LULA COLUNGA Unavailable [address] + [address] [place] [address] D Unavailable Unavailable Unavailable LULA COLUNGA Unavailable [address] + [address] [place] [address] D Unavailable Unavailable Unavailable LULA COLUNGA Unavailable [address] + [address] [place] [address] D Unavailable Unavailable Unavailable LULA COLUNGA Unavailable [address] + [address] [place] [address] D Unavailable Unavailable Unavailable LULA COLUNGA Unavailable [address] + [address] [place] [address] D Unavailable Unavailable Unavailable LULA COLUNGA Unavailable [address] + [address] [place] [address] D Unavailable Unavailable Unavailable LULA COLUNGA Unavailable [address] + [address] [place] [address] D Unavailable Unavailable Unavailable LULA COLUNGA Unavailable [address] + [address] [place] [address] D Unavailable Unavailable Unavailable LULA COLUNGA Unavailable [address] + [address] [place] [address] D Unavailable Unavailable Unavailable LULA COLUNGA Unavailable [address] + [address] [place] [address] D Unavailable Unavailable Unavailable LULA COLUNGA Unavailable [address] + [address] [place] [address] D Unavailable Unavailable Unavailable BRENEMAN, ESTELLA Unavailable [address] + [place] [address] LULA INGRAM Unavailable Unavailable + JORGE ALBERTO VILLAGRAN Unavailable [address] [facility] [address] + [place] [address] KAUF, JAMAR Unavailable [address] + [place] [address] LULA COLUNGA Unavailable [address] + [address] [place] [address] D Unavailable Unavailable Unavailable BRENEMAN, ESTELLA Unavailable [address] + [place] [address] LULA INGRAM Unavailable Unavailable + JORGE ALBERTO VILLAGRAN Unavailable [address] [facility] [address] + [place] [address] KAUF, JAMAR Unavailable [address] + [place] [address] BRENEMAN, ESTELLA Unavailable [address] + [place] [address] LULA INGRAM Unavailable Unavailable + JORGE ALBERTO VILLAGRAN Unavailable [address] [facility] [address] + [place] [address] KABETHANY, JAMAR Unavailable [address] + [place] [address] BRENEMAN, ESTELLA Unavailable [address] + [place] [address] LULA INGRAM Unavailable Unavailable + JORGE ALBERTO VILLAGRAN Unavailable [address] + [place] [address] KAUF, JAMAR Unavailable [address] + [place] [address] BRENEMAN, ESTELLA Unavailable [address] + [place] [address] LULA INGRAM Unavailable Unavailable + JORGE ALBERTO VILLAGRAN Unavailable [address] + [place] [address] KAUF, JAMAR Unavailable [address] + [place] [address] BRENEMAN, ESTELLA Unavailable [address] + [place] [address] LULA INGRAM Unavailable Unavailable + JORGE ALBERTO VILLAGRAN Unavailable [address] + [place] [address] KAUF, JAMAR Unavailable [address] + [place] [address] BRENEMAN, ESTELLA Unavailable [address] + [place] [address] LULA INGRAM Unavailable Unavailable + JORGE ALBERTO VILLAGRAN Unavailable [address] + [place] [address] KAUF, JAMAR Unavailable [address] + [place] [address] BRENEMAN, ESTELLA Unavailable [address] + [place] [address] LULA INGRAM Unavailable Unavailable + JORGE ALBERTO VILLAGRAN Unavailable [address] + [place] [address] KAUF, JAMAR Unavailable [address] + [place] [address] BRENEMAN, ESTELLA Unavailable [address] + [place] [address] LULA INGRAM Unavailable Unavailable + JORGE ALBERTO VILLAGRAN Unavailable [address] + [place] [address] KABETHANY, JAMAR Unavailable [address] + [place] [address] BRENEMAN, ESTELLA Unavailable [address] + [place] [address] JORGE ALBERTO VILLAGRAN Unavailable [address] + [place] [address] SALOMÓN, JAMAR Unavailable [address] + [place] [address] BRENEMAN, ESTELLA Unavailable [address] + [place] [address] JORGE ALBERTO VILLAGRAN Unavailable [address] + [place] [address] KABETHANY, JAMAR Unavailable [address] + [place] [address] BRENEMAN, ESTELLA Unavailable [address] + [place] [address] JORGE ALBERTO VILLAGRAN Unavailable [address] + [place] [address] SALOMÓN, JAMAR Unavailable [address] + [place] [address] BRENEMAN, ESTELLA Unavailable [address] + [place] [address] JORGE ALBERTO VILLAGRAN Unavailable [address] + [place] [address] KABETHANY, JAMAR Unavailable [address] + [place] [address] BRENEMAN, ESTELLA Unavailable [address] + [place] [address] JORGE ALBERTO VILLAGRAN Unavailable [address] + [place] [address] JORGE ALBERTO VILLAGRAN Unavailable [address] [facility] [address] + [place] [address] BRENEMAN, ESTELLA Unavailable [address] + [place] [address] BRENEMAN, ESTELLA Unavailable [address] + [place] [address] CHARLENE VILLAGRANLI Unavailable [address] [facility] [address] + [place] [address] BRENEMAN, ESTELLA Unavailable [address] + [place] [address] BRENEMAN, ESTELLA Unavailable [address] + [place] [address] CHARLENE VILLAGRANLI Unavailable [address] + [place] [address] BRENEMAN, ESTELLA Unavailable [address] + [place] [address] BRENEMAN, ESTELLA Unavailable [address] + [place] [address] TYSHAWN JORGE ALBERTO Unavailable [address] [facility] + [place] [address] BRENEMAN, ESTELLA Unavailable [address] + [place] [address] BRENEMAN, ESTELLA Unavailable [address] + [place] [address] JORGE ALBERTO VILLAGRAN Unavailable [address] [facility] [address] + [place] [address] BRENEMAN, ESTELLA Unavailable [address] + [place] [address] BRENEMAN, ESTELLA Unavailable [address] + [place] [address] TYSHAWN JORGE ALBERTO Unavailable [address] [facility] [address] + [place] [address] Care Team Providers Name Role Phone BOB [...] Unavailable JIM BARRETO MD Attending Unavailable JACKELIN BURGRE MD Primary Care Unavailable JIM BARRETO MD Admitting Unavailable TRINITY ROJAS MD Consulting Unavailable ZOIE JJ MD Consulting Unavailable JACKELIN NOVAK MD Consulting Unavailable HARINI CAMPA DO Consulting Unavailable BAILEE LOPEZ MD Consulting Unavailable DR. JUSTIN GUY DO Consulting Unavailable HARINI WEBB DO Attending Unavailable [...] Attending Unavailable FIOR LYNCH Primary Care Unavailable Jeremie Blankenship Consulting Unavailable James Gunderson Consulting Unavailable James Gunderson Admitting Unavailable Sementi, Geraldine Attending Unavailable FIOR LYNCH Primary Care Unavailable Wunning, Jeremie Consulting Unavailable Sementi, Geraldine Consulting Unavailable Tereletsky, James Admitting Unavailable Jopperi, [...] Consulting Unavailable Tereletsky, James Admitting Unavailable Jesus Maneul, Sudheer Attending Unavailable FIOR LYNCH Primary Care Unavailable Wunning, Jeremie Consulting Unavailable Vaughn, Raúl Consulting Unavailable Silvina, Aaron Consulting Unavailable Moodispaw, Gumaro Consulting Unavailable Jesus Manuel, Sudheer Consulting Unavailable Jopperi, Octavio Consulting Unavailable FIOR LYNCH Attending Unavailable [...] Admitting Unavailable FIOR LYNCH Primary Care Unavailable Moodispaw, Gumaro Consulting Unavailable Ashelfah, Ghasem Attending Unavailable Ashelfah, Ghasem Consulting Unavailable Kemp, Gumaro Admitting Unavailable FIOR LYNCH Primary Care Unavailable Moodispaprerna, Gumaro Consulting Unavailable Ashelfah, Ghasem Attending Unavailable Ashelfah, Ghasem Consulting Unavailable Kemp, Gumaro Admitting Unavailable Moodispaw, Gumaro Attending Unavailable FIOR LYNCH Primary Care Unavailable MoodispaGumaro graff Consulting Unavailable Ashelfah, Ghasem Consulting Unavailable Kemp, Gumaro Admitting Unavailable FIOR LYNCH Primary Care Unavailable MoodispaGumaro graff Consulting Unavailable Ashelfah, Ghasem Attending Unavailable Ashelfah, Ghasem Consulting Unavailable Kemp, Gumaro Admitting Unavailable Moodispaw, Gumaro Attending Unavailable FIOR LYNCH Primary Care Unavailable MoodispaGumaro graff Consulting Unavailable Ashelfah, Ghasem Consulting Unavailable Kemp, Gumaro Admitting Unavailable Moodispaw, Gumaro Attending Unavailable FIOR LYNCH Primary Care Unavailable MoodisGumaro wills Consulting Unavailable Ashelfah, Ghasem Consulting Unavailable Kemp, Gumaro Admitting Unavailable FIOR LYNCH Primary Care Unavailable MoodispaGumaro graff Consulting Unavailable Ashelfah, Ghasem Attending Unavailable Ashelfah, Ghasem Consulting Unavailable Kemp, Gumaro Admitting Unavailable Ashelfah, Ghasem Attending Unavailable FIOR LYNCH Primary Care Unavailable MoodisGumaro wills Consulting Unavailable Elayne, Jayaprakash Consulting Unavailable Ashelfah, Ghasem Consulting Unavailable Kemp, Gumaro Admitting Unavailable Moodispaw, Gumaro Attending Unavailable FIOR LYNCH Primary Care Unavailable Gumaro Ott Consulting Unavailable Elayne, Jayaprakash Consulting Unavailable Ashelfah, [...] Admitting Unavailable FIOR LYNCH Primary Care Unavailable Moodispaw, Gumaro Consulting Unavailable Leidy Parrish Attending Unavailable Elayne, Jayaprakash Consulting Unavailable Shivani, Leidy Consulting Unavailable Kemp, Gumaro Admitting Unavailable Moodispaw, Gumaro Attending Unavailable FIOR LYNCH Primary Care Unavailable Moodispaw, Gumaro Consulting Unavailable Elayne, Jayaprakash Consulting Unavailable Leidy Parrish Consulting Unavailable FIOR LYNCH Primary Care Unavailable Sementi, Geraldine Admitting Unavailable Arashapjusto, Justin Consulting Unavailable Chuck, Akhil Attending Unavailable Wusarahing, Jeremie Consulting Unavailable Vaughn, Raúl Consulting Unavailable Bakhous, Aziz Consulting Unavailable Sementi, Geraldine Admitting Unavailable Sementi, Geraldine Attending Unavailable FIOR LYNCH Primary Care Unavailable Knapjusto, Justin Consulting Unavailable Wunning, Jeremie Consulting Unavailable [...] Aziz Consulting Unavailable Chuck, Akhil Consulting Unavailable Moodispaw, Gumaro Attending Unavailable Leidy Parrish Referring Unavailable PROBLEMS PROBLEMS DATE TYPE CONDITION / CODE ATTENDING STATUS SOURCE 11/12/2018 Unknown R07.9 - Chest pain, Moodisp[place], Active [place] unspecified / [facility] R07.9(ICD-10) Hospital Repository 11/12/2018 Unknown R06.02 - Shortness [place], Active [place] of breath / [facility] R06.02(ICD-10) Hospital Repository 11/12/2018 Unknown 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, 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 / I25.10(ICD-10) 11/12/2018 Unknown 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, Active [place] cardiomyopathy / [facility] I25.5(ICD-10) Hospital Repository 11/12/2018 Unknown I50.23 - Acute on [place], Active [place] chronic systolic [facility] (congestive) heart Hospital failure / Repository I50.23(ICD-10) 11/12/2018 Unknown 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, 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 / Z95.810(ICD-10) 11/12/2018 Unknown I11.0 - Hypertensive [place], Active [place] heart disease with [facility] heart failure / Hospital I11.0(ICD-10) Repository 11/12/2018 Unknown Z95.5 - Presence of [place], Active [place] coronary angioplasty [facility] implant and graft / Hospital Z95.5(ICD-10) Repository 09/19/2018 Admitting Chronic systolic JENNYFER KEY, Active [facility] Diagnosis (congestive) heart [facility] failure / Repository I50.22(ICD-10) PROCEDURES PROCEDURES No Procedure Records FoundRESULTS RESULTS CBC Collected: 11/15/2018 Status: F Source: [facility] 5:32 AM [facility]OUNDATION REPOSITORY TYPE CODE TESTS RESULT OUT OF REFERENCE UNITS RANGE LAB WBC(LOINC) 4.50-10.80 10 3/mcL WBC 8.50 LAB RBCCT(LOINC 4.50-6.00 10 6/mcL ) Low RBC 3.30 LAB HGB(LOINC) 13.0-17.5 G/dL Low Hgb 9.7 LAB HCT(LOINC) 40.0-52.0 % Low Hct 29.5 LAB MCV(LOINC) 81.0-100.0 fL MCV 89.3 LAB MCH(LOINC) 27.0-33.0 pg MCH 29.5 LAB MCHC(LOINC) 32.0-36.0 G/dL MCHC 33.1 LAB RDW(LOINC) 11.5-15.5 % High RDW 17.3 LAB PLT(LOINC) 150-450 10 3/mcL Platelet 191 LAB MPV(LOINC) 6.4-10.5 fL MPV 7.3 Performed By: #### CBC, BMP, GFR, DIFF, MORPH #### [address] [address] BMP Collected: 11/15/2018 Status: F Source: [facility] 5:32 AM [facility] EMERGENCY DEPARTMENT REPOSITORY TYPE CODE TESTS RESULT OUT OF REFERENCE UNITS RANGE LAB GLU(LOINC) 82-115 mg/dL Glucose Level 96 LAB NA(LOINC) 136-145 mEq/L Sodium Level 143 LAB K(LOINC) 3.5-5.0 mEq/L Potassium Level 4.3 LAB CL(LOINC) 98-110 mEq/L Chloride 102 LAB CO2(LOINC) 22-32 mEq/L CO2 High 37 LAB EBAL(LOINC 4.0-15.0 mEq/L ) Electrolyte Balance 4.0 LAB BUN(LOINC) 8.0-22.0 mg/dL BUN High 36.0 LAB CRE(LOINC) 0.60-1.40 mg/dL Creatinine Lvl (s) 1.33 LAB BC(LOINC) 10.0-22.0 ratio High BUN/Creatinine 27.1 Ratio LAB CA(LOINC) 8.4-10.1 mg/dL Low Calcium Lvl 7.7 Performed By: #### CBC, BMP, GFR, DIFF, MORPH #### [address] [address] .GFR Collected: 11/15/2018 Status: F [facility] 5:32 AM [facility] EM[facility]PART[facility] REPOSITORY TYPE CODE TESTS RESULT OUT OF REFERENCE UNITS RANGE LAB GFRAA(LOINC ml/min/1.73 ) sqm GFR >60 Sudanese Result Comment: GFR Population mean for , [...] mL/min/1.73 square meters Performed By: #### CBC, BMP, GFR, DIFF, MORPH #### [place] [address] .MANUAL DIFF Collected: 11/15/2018 Status: F Source: [facility] 5:32 AM [facility] EM[facility]PART[facility] REPOSITORY TYPE CODE TESTS RESULT OUT OF REFERENCE UNITS RANGE LAB LIMIT(LOIN C) Cells Counted 100 LAB NEUM(LOINC 50.0-75.0 % ) Neutrophil %, 53.0 Manual LAB LYMM(LOINC 20.0-40.0 % ) Low Lymphocyte %, 19.0 Manual LAB MONM(LOINC 2.0-13.0 % ) Monocyte %, Manual 6.0 LAB EOM(LOINC) 0.0-6.0 % High Eosinophil %, 22.0 Manual LAB BASM(LOINC 0.0-2.5 % ) Basophil %, Manual 0.0 LAB ANEUM(LOIN 2.25-8.10 10 3/mcL C) Neutrophil, Abs 4.51 Manual LAB ABLYMM(LUDMILA 0.90-4.32 10 3/mcL NC) Lymphocyte, Abs 1.61 Manual LAB AMONM(LOIN 0.09-1.40 10 3/mcL C) Monocyte, Abs 0.51 Manual LAB AEOSM(LOIN 0.00-0.65 10 3/mcL C) High Eosinophil, Abs 1.87 Manual LAB ABASM(LOIN 0.00-0.27 10 3/mcL C) Basophil, Abs 0.00 Manual Performed By: #### CBC, BMP, GFR, DIFF, MORPH #### [address] [address] .MORPH Collected: 11/15/2018 Status: F Source: [facility] 5:32 AM [facility] EM[facility]PART[facility] REPOSITORY TYPE CODE TESTS RESULT OUT OF REFERENCE UNITS RANGE LAB PLTE(LOINC ) Platelet Estimate Normal LAB ANIS(LOINC ) Anisocytosis Slight LAB POIK(LOINC ) Poik Slight LAB HYPC(LOINC ) Hypochrom Slight Performed By: #### CBC, BMP, GFR, DIFF, MORPH #### [address] [address] CBC Collected: 11/14/2018 Status: F Source: [facility] 5:34 AM [facility] EM[facility]PART[facility] REPOSITORY TYPE CODE TESTS RESULT OUT OF REFERENCE UNITS RANGE LAB WBC(LOINC) 4.50-10.80 10 3/mcL WBC 7.60 LAB RBCCT(LOINC 4.50-6.00 10 6/mcL ) Low RBC 3.38 LAB HGB(LOINC) 13.0-17.5 G/dL Low Hgb 10.1 LAB HCT(LOINC) 40.0-52.0 % Low Hct 30.3 LAB MCV(LOINC) 81.0-100.0 fL MCV 89.5 LAB MCH(LOINC) 27.0-33.0 pg MCH 29.8 LAB MCHC(LOINC) 32.0-36.0 G/dL MCHC 33.3 LAB RDW(LOINC) 11.5-15.5 % High RDW 17.1 LAB PLT(LOINC) 150-450 10 3/mcL Platelet 186 LAB MPV(LOINC) 6.4-10.5 fL MPV 7.1 Performed By: #### CBC, BMP, GFR, ADIFF, ANEU, MORPH #### [address] [address] BMP Collected: 11/14/2018 Status: F Source: [facility] 5:34 AM [facility] EM[facility]PART[facility] REPOSITORY TYPE CODE TESTS RESULT OUT OF REFERENCE UNITS RANGE LAB GLU(LOINC) 82-115 mg/dL Glucose Level 106 LAB NA(LOINC) 136-145 mEq/L Sodium Level 144 LAB K(LOINC) 3.5-5.0 mEq/L Potassium Level 4.0 LAB CL(LOINC) 98-110 mEq/L Chloride 105 LAB CO2(LOINC) 22-32 mEq/L CO2 High 33 LAB EBAL(LOINC 4.0-15.0 mEq/L ) Electrolyte Balance 6.0 LAB BUN(LOINC) 8.0-22.0 mg/dL BUN High 39.0 LAB CRE(LOINC) 0.60-1.40 mg/dL Creatinine Lvl (s) 1.19 LAB BC(LOINC) 10.0-22.0 ratio High BUN/Creatinine 32.8 Ratio LAB CA(LOINC) 8.4-10.1 mg/dL Low Calcium Lvl 7.2 Performed By: #### CBC, BMP, GFR, ADIFF, ANEU, MORPH #### [place] [address] .GFR Collected: 11/14/2018 Status: F Source: [facility] 5:34 AM [facility] REPOSITORY TYPE CODE TESTS RESULT OUT OF REFERENCE UNITS RANGE LAB GFRAA(LOINC ml/min/1.73 ) sqm GFR >60 Sudanese Result Comment: GFR Population mean for , [...] mL/min/1.73 square meters Performed By: #### CBC, BMP, GFR, ADIFF, ANEU, MORPH #### [address] [address] .AUTO DIFF Collected: 11/14/2018 Status: F Source: [facility] 5:34 AM [facility] EM[facility]PART[facility] REPOSITORY TYPE CODE TESTS RESULT OUT OF REFERENCE UNITS RANGE LAB MOLLY(LOINC) 50.0-75.0 % Neutrophil % 52.0 LAB LYM(LOINC) 20.0-40.0 % Low Lymphocyte % 16.4 LAB MON(LOINC) 2.0-13.0 % Monocyte % 9.9 LAB EO(LOINC) 0.0-6.0 % High Eosinophil % 21.0 LAB BAS(LOINC) 0.0-2.5 % Basophil % 0.7 LAB ABLYM(LOIN 0.90-4.32 10 3/mcL C) Lymphocyte, 1.20 Absolute LAB FRANK(LOINC 0.09-1.40 10 3/mcL ) Monocyte, 0.70 Absolute LAB AEOS(LOINC 0.00-0.65 10 3/mcL ) High Eosinophil, 1.60 Absolute LAB ABAS(LOINC 0.00-0.27 10 3/mcL ) Basophil, 0.10 Absolute Performed By: #### CBC, BMP, GFR, ADIFF, ANEU, MORPH #### [address] [address] .NEUABS Collected: 11/14/2018 Status: F Source: [facility] 5:34 AM [facility] EM[facility] REPOSITORY TYPE CODE TESTS RESULT OUT OF REFERENCE UNITS RANGE LAB ANEU(LOINC) 2.25-8.10 10 3/mcL Neutrophil, 3.90 Absolute Performed By: #### CBC, BMP, GFR, ADIFF, ANEU, MORPH #### [address] [address] .MORPH Collected: 11/14/2018 Status: F Source: [facility] 5:34 AM [facility]PART[facility] REPOSITORY TYPE CODE TESTS RESULT OUT OF REFERENCE UNITS RANGE LAB PLTE(LOINC ) Platelet Estimate Normal LAB ANIS(LOINC ) Anisocytosis Slight LAB POLC(LOINC ) Polychrom Slight Performed By: #### CBC, BMP, GFR, ADIFF, ANEU, MORPH #### [facility] [address] [place] [address] MG Collected: 11/13/2018 Status: F Source: [facility] 5:45 AM [facility] REPOSITORY TYPE CODE TESTS RESULT OUT OF REFERENCE UNITS RANGE LAB MG(LOINC) 1.6-2.4 mg/dL Magnesium Lvl 1.9 Performed By: #### MG, BMP, GFR #### [address] [address] BMP Collected: 11/13/2018 Status: F Source: [facility] 5:45 AM [facility] EM[facility]PART[facility] REPOSITORY TYPE CODE TESTS RESULT OUT OF REFERENCE UNITS RANGE LAB GLU(LOINC) 82-115 mg/dL Glucose Level 98 LAB NA(LOINC) 136-145 mEq/L Sodium High Level 146 LAB K(LOINC) 3.5-5.0 mEq/L Low Potassium Level 3.3 LAB CL(LOINC) 98-110 mEq/L Chloride 106 LAB CO2(LOINC) 22-32 mEq/L CO2 32 LAB EBAL(LOINC 4.0-15.0 mEq/L ) Electrolyte Balance 8.0 LAB BUN(LOINC) 8.0-22.0 mg/dL BUN High 42.0 LAB CRE(LOINC) 0.60-1.40 mg/dL Creatinine Lvl (s) 1.28 LAB BC(LOINC) 10.0-22.0 ratio High BUN/Creatinine 32.8 Ratio LAB CA(LOINC) 8.4-10.1 mg/dL Low Calcium Lvl 7.7 Performed By: #### MG, BMP, GFR #### [address] [address] .GFR Collected: 11/13/2018 Status: F Source: [facility] 5:45 AM [facility] EM[facility]PART[facility] REPOSITORY TYPE CODE TESTS RESULT OUT OF REFERENCE UNITS RANGE LAB GFRAA(LOINC ml/min/1.73 ) sqm GFR >60 Sudanese Result Comment: GFR Population mean for , [...] square meters LAB GFRNO(LOINC) ml/min/1.73sqm GFR Non- 57 Result Comment: GFR Population mean for , [...] 15 mL/min/1.73 square meters Performed By: #### MG, BMP, GFR #### [place] [address] K Collected: 11/12/2018 Status: F Source: [facility] [facility] 7:46 PM [facility] REPOSITORY TYPE CODE TESTS RESULT OUT OF REFERENCE UNITS RANGE LAB K(LOINC) 3.5-5.0 mEq/L Low Potassium Level 3.0 Performed By: #### K #### [address] [address] .GFR Collected: 11/12/2018 Status: F Source: [employer] 9:17 AM [facility] REPOSITORY TYPE CODE TESTS RESULT OUT OF REFERENCE UNITS RANGE LAB GFRAA(LOINC ml/min/1.73 ) sqm GFR >60 [place] Result Comment: GFR Population mean for , [...] meters Performed By: #### GFR, BMP #### [place] [address] BMP Collected: 11/12/2018 Status: F Source: [facility] 9:17 AM [facility] REPOSITORY TYPE CODE TESTS [...] 7.3 Performed By: #### GFR, BMP #### [place] [address] CT HEAD OR BRAIN W/O Observed: 11/11/2018 Status: F Source: [employer] CONTRAST 10:37 AM [facility] EM[facility]ENCY DEPARTMENT REPOSITORY ORIGINAL CT HEAD OR BRAIN W/O [...] Date: 11/11/2018 11:01:54 AM Observed: 11/11/2018 Status: F Source: [employer] CUR 10:13 AM [facility] EMERGENCY DEPARTMENT REPOSITORY . MICRO - Microbiology PROCEDURE: Urine Culture [*1] SOURCE: Urine, Corea Catheter BODY SITE: COLLECTED DATE/TIME: 11/11/2018 10:13 EST RECEIVED DATE/TIME: 11/11/2018 10:44 EST START DATE/TIME: 11/11/2018 10:44 EST FREE TEXT SOURCE: FINAL REPORTS Final Report [] Verified Date/Time/Personnel: 11/13/2018 11:23 EST >100,000 organisms per mL Presumptive Jaimie albicans Contact Microbiology within 72 hours if further identification is indicated ([id number]). Eden counts from a single urine are equivocal in determining infection vs. colonization of yeast. Multiple cultures at least 24 hours apart may be helpful in differentiating colonization from infection. PRELIMINARY REPORTS Preliminary Report [] Verified Date/Time/Personnel: 11/12/2018 15:05 EST Culture results pending. Performing Locations *1: This test was performed at: [facility], [address] [place] [address], [address] [place] [address] Performed By: #### CUR #### [place] [address] CBC Collected: 11/11/2018 Status: F Source: [facility] 5:07 AM [facility] EMERGENCY DEPARTMENT REPOSITORY TYPE CODE TESTS RESULT OUT OF [...] #### CBC, ADIFF, ANEU, BMP, GFR #### [place] [address] .AUTO DIFF Collected: 11/11/2018 Status: F Source: [facility] 5:07 [place] EMERGENCY DEPARTMENT REPOSITORY TYPE CODE TESTS RESULT OUT OF [...] #### CBC, ADIFF, ANEU, BMP, GFR #### [place] [address] .NEUABS Collected: 11/11/2018 Status: F Source: [facility] 5:07 AM [facility] EMERGENCY DEPARTMENT REPOSITORY TYPE CODE TESTS RESULT OUT OF REFERENCE UNITS RANGE LAB ANEU(LOINC) 2.25-8.10 10 3/mcL Neutrophil, 3.90 Absolute Performed By: #### CBC, ADIFF, ANEU, BMP, GFR #### [place] [address] BMP Collected: 11/11/2018 Status: F Source: [facility] 5:07 AM [facility] EMERGENCY DEPARTMENT REPOSITORY TYPE CODE TESTS RESULT OUT OF [...] #### CBC, ADIFF, ANEU, BMP, GFR #### [address] [address] .GFR Collected: 11/11/2018 Status: F Source: [facility] 5:07 AM [facility] REPOSITORY TYPE CODE TESTS RESULT OUT OF REFERENCE UNITS RANGE LAB GFRAA(LOINC ml/min/1.73 ) sqm GFR 51 Sudanese Result Comment: GFR Population mean for , [...] mL/min/1.73 square meters Performed By: #### VLAD, ADIFF, ANEU, BMP, GFR #### [address] [address] 12 LEAD ELECTROCARDIOGRAM Observed: 11/10/2018 Status: F Source: [facility] 9:09 AM [facility] REPOSITORY [facility] Cardiovascular Services [place] [address] 12 Lead EKG 11/05/18 1251 MR#: [id number] Acct: [id number] Name: JADA COLUNGA Rep #: [id number] : 1955 63 From: Faisal Rg MD Attending Dr: Akhil Woods MD Status: DIS IN Ordering Dr: Jeremie Li MD Date: 11/05/18 Location: [facility] Sex: M C Admitted: 11/05/18 Test Reason [...] bundle branch block Abnormal ECG Confirmed by FAISAL RG MD ([id number]), loan expeditor DORI PRAJAPATI ([id number]) on 11/10/2018 9:09:22 AM Referred By: Harini Gunderson Confirmed By:FAISAL RG MD 11/10/18 0909 Date Faisal Rg MD CC: Jeremie Li MD; OUT OF TOWN DOCTOR; Akhil Woods MD Signed BMP Collected: 11/10/2018 Status: F Source: [facility] 5:18 AM [facility] EMERGENCY DEPARTMENT REPOSITORY TYPE CODE TESTS RESULT OUT OF [...] PBNP, GFR, CBC, ADIFF, ANEU, IFES #### [address] [address] PBNP Collected: 11/10/2018 Status: F Source: [facility] 5:18 AM [facility] EMERGENCY DEPARTMENT REPOSITORY TYPE CODE TESTS RESULT OUT OF REFERENCE UNITS RANGE LAB PBNP(LOINC) 0-900 pg/mL High N-Terminal 7039 proBNP Result Comment: NT-proBNP results of less than 300 pg/mL effectively rules out acute congestive heart failure with 99% negative predictive value. Performed By: #### BMP, PBNP, GFR, CBC, ADIFF, ANEU, IFES #### [address] [address] .GFR Collected: 11/10/2018 Status: F Source: [facility] 5:18 AM [facility] EMERGENCY DEPARTMENT REPOSITORY TYPE CODE TESTS RESULT OUT OF REFERENCE UNITS RANGE LAB GFRAA(LOINC ml/min/1.73 ) sqm GFR 50 Sudanese Result Comment: GFR Population mean for , [...] mL/min/1.73 square meters Performed By: #### VINNIE, PBNP, GFR, CBC, ADIFF, ANEU, IFES #### [address] [address] CBC Collected: 11/10/2018 Status: F Source: [facility] 5:18 AM [facility] EMERGENCY DEPARTMENT REPOSITORY TYPE CODE TESTS RESULT OUT OF [...] 6.4-10.5 fL MPV 7.9 Performed By: #### VINNIE, PBNP, GFR, CBC, ADIFF, ANEU, IFES #### [address] [address] .AUTO DIFF Collected: 11/10/2018 Status: F Source: [facility] 5:18 AM [facility] EMERGENCY DEPARTMENT REPOSITORY TYPE CODE TESTS RESULT OUT OF [...] PBNP, GFR, CBC, ADIFF, ANEU, IFES #### [place] [address] .NEUABS Collected: 11/10/2018 Status: F Source: [employer] 5:18 AM [facility] EMERGENCY DEPARTMENT REPOSITORY TYPE CODE TESTS RESULT OUT OF REFERENCE UNITS RANGE LAB ANEU(LOINC) 2.25-8.10 10 3/mcL Neutrophil, 6.00 Absolute Performed By: #### BMP, PBNP, GFR, CBC, ADIFF, ANEU, IFES #### [place] [address] IFES Collected: 11/10/2018 Status: F Source: [employer] 5:18 AM [facility] EMERGENCY DEPARTMENT REPOSITORY TYPE CODE TESTS RESULT OUT OF REFERENCE UNITS RANGE LAB IFES(LUDMILA NC) IFES Immunofixation Interpretation electrophoresis of serum show the presence of a faint possible Result Comment: Electronically Signed by: JAMES WINTERS DO 11/10/2018 11:45 EST Performed By: #### BMP, PBNP, GFR, CBC, ADIFF, ANEU, IFES #### [place] [address] XR FOOT TWO VIEWS Observed: 11/10/2018 Status: F Source: [employer] [facility] 5:08 AM [facility] EMERGENCY DEPARTMENT REPOSITORY ORIGINAL XR FOOT TWO VIEWS RIGHT [...] AM TROPI Collected: 11/09/2018 Status: F Source: [facility] 10:36 AM [facility] EMERGENCY DEPARTMENT REPOSITORY TYPE CODE TESTS RESULT OUT OF [...] ECG changes may help assess possibility of IL. *Other non-acute coronary syndrome conditions such as CHF, myocarditis, pulmonary emboli, sepsis and cardiac surgery could result in myocardial damage and increased troponin levels. Performed By: #### TROPI #### [place] [address] CBC Collected: 11/09/2018 Status: F Source: [facility] 10:36 AM [facility] EMERGENCY DEPARTMENT REPOSITORY TYPE CODE TESTS RESULT OUT OF [...] fL MPV 8.1 Performed By: #### CBC, ADVIVIANA, ANEU #### [place] [address] .AUTO DIFF Collected: 11/09/2018 Status: F Source: [facility] 10:36 AM [facility] EMERGENCY DEPARTMENT REPOSITORY TYPE CODE TESTS RESULT OUT OF [...] Performed By: #### CBC, ADIFF, ANEU #### [place] [address] .NEUABS Collected: 11/09/2018 Status: F Source: [facility] 10:36 AM [facility] EMERGENCY DEPARTMENT REPOSITORY TYPE CODE TESTS RESULT OUT OF REFERENCE UNITS RANGE LAB ANEU(LOINC) 2.25-8.10 10 3/mcL Neutrophil, 7.20 Absolute Performed By: #### CBC, ADIFF, ANEU #### [place] [address] NAUR Collected: 11/09/2018 Status: F Source: [facility] 10:36 AM [facility] EMERGENCY DEPARTMENT REPOSITORY TYPE CODE TESTS RESULT OUT OF REFERENCE UNITS RANGE LAB ROSA(LOINC) mEq/L U Sodium 39.0 Performed By: #### NAUR, UA, UAMIC #### [place] [address] UA Collected: 11/09/2018 Status: F Source: [facility] 10:36 AM [facility] EMERGENCY DEPARTMENT REPOSITORY TYPE CODE TESTS RESULT OUT OF [...] Performed By: #### BRIAN, UA, UAMIC #### [place] [address] UAMIC Collected: 11/09/2018 Status: F Source: [facility] 10:36 AM [facility] EMERGENCY DEPARTMENT REPOSITORY TYPE CODE TESTS RESULT OUT OF [...] Performed By: #### BRIAN, UA, UAMIC #### [place] [address] CRUR Collected: 11/09/2018 Status: F Source: [facility] 10:36 AM [facility] EMERGENCY DEPARTMENT REPOSITORY TYPE CODE TESTS RESULT OUT OF REFERENCE UNITS RANGE LAB CRU(LOINC) mg/dL U Creatinine 66.6 Performed By: #### CRYAYA #### [place] [address] US RENAL Observed: 11/09/2018 Status: F Source: [facility] 10:23 AM [facility] EMERGENCY DEPARTMENT REPOSITORY ORIGINAL US RENAL (US RETROPERITONEUM COMPLETE) [...] PM BMP Collected: 11/09/2018 Status: F Source: [facility] 3:27 AM [facility] EMERGENCY DEPARTMENT REPOSITORY TYPE CODE TESTS RESULT OUT OF [...] Performed By: #### BMP, GFR, PBNP #### [place] [address] .GFR Collected: 11/09/2018 Status: F Source: [facility] 3:27 AM [facility] EMERGENCY DEPARTMENT REPOSITORY TYPE CODE TESTS RESULT OUT OF REFERENCE UNITS RANGE LAB GFRAA(LOINC ml/min/1.73 ) sqm GFR 46 Sudanese Result Comment: GFR Population mean for , [...] Performed By: #### VINNIE, GFR, PBNP #### [address] [address] PBNP Collected: 11/09/2018 Status: F Source: [place] [employer] 3:27 AM [facility] EMERGENCY DEPARTMENT REPOSITORY TYPE CODE TESTS RESULT OUT OF REFERENCE UNITS RANGE LAB PBNP(LOINC) 0-900 pg/mL High N-Terminal 5034 proBNP Result Comment: NT-proBNP results of less than 300 pg/mL effectively rules out acute congestive heart failure with 99% negative predictive value. Performed By: #### BMP, GFR, PBNP #### [address] [address] TROPI Collected: 11/09/2018 Status: F Source: [facility] 3:27 AM [facility] EMERGENCY DEPARTMENT REPOSITORY TYPE CODE TESTS RESULT OUT OF [...] ECG changes may help assess possibility of IL. *Other non-acute coronary syndrome conditions such as CHF, myocarditis, pulmonary emboli, sepsis and cardiac surgery could result in myocardial damage and increased troponin levels. Performed By: #### TROPI #### [place] [address] BG Collected: 11/08/2018 Status: F Source: [facility] 8:53 PM [facility] EMERGENCY DEPARTMENT REPOSITORY TYPE CODE TESTS RESULT OUT OF [...] 722 Pressure Performed By: #### BG #### [address] [address] CBC Collected: 11/08/2018 Status: F Source: [facility] 8:33 PM [facility] EMERGENCY DEPARTMENT REPOSITORY TYPE CODE TESTS RESULT OUT OF [...] ADIFF, ANEU, BMP, GFR, CK, TROPI #### [address] [address] .AUTO DIFF Collected: 11/08/2018 Status: F Source: [facility] 8:33 [facility] REPOSITORY TYPE CODE TESTS RESULT OUT OF [...] ADIFF, ANEU, BMP, GFR, CK, TROPI #### [address] [address] .NEUABS Collected: 11/08/2018 Status: F Source: [facility] 8:33 [facility] REPOSITORY TYPE CODE TESTS RESULT OUT OF REFERENCE UNITS RANGE LAB ANEU(LOINC) 2.25-8.10 10 3/mcL Neutrophil, 7.20 Absolute Performed By: #### CBC, ADIFF, ANEU, BMP, GFR, CK, TROPI #### [address] [address] BMP Collected: 11/08/2018 Status: F Source: [facility] 8:33 PM [facility] EMERGENCY DEPARTMENT REPOSITORY TYPE CODE TESTS RESULT OUT OF [...] ADIFF, ANEU, BMP, GFR, CK, TROPI #### [address] [address] .GFR Collected: 11/08/2018 Status: F Source: [facility] 8:33 [facility] REPOSITORY TYPE CODE TESTS RESULT OUT OF REFERENCE UNITS RANGE LAB GFRAA(LOINC ml/min/1.73 ) sqm GFR 40 Sudanese Result Comment: GFR Population mean for , [...] ADIFF, ANEU, BMP, GFR, CK, TROPI #### [address] [address] CK Collected: 11/08/2018 Status: F Source: [facility] 8:33 [facility] REPOSITORY TYPE CODE TESTS RESULT OUT OF RANGE REFERENCE UNITS LAB CK(LOINC) 7-185 U/L CPK 123 Performed By: #### CBC, ADIFF, ANEU, BMP, GFR, CK, TROPI #### [address] [address] TROPI Collected: 11/08/2018 Status: F Source: [facility] 8:33 [facility] REPOSITORY TYPE CODE TESTS RESULT OUT OF [...] ECG changes may help assess possibility of IL. *Other non-acute coronary syndrome conditions such as CHF, myocarditis, pulmonary emboli, sepsis and cardiac surgery could result in myocardial damage and increased troponin levels. Performed By: #### CBC, ADIFF, ANEU, BMP, GFR, CK, TROPI #### [facility] [address] [place] [address] XR ABDOMEN AP Observed: 11/08/2018 Status: F Source: [facility] 8:06 PM [facility] EMERGENCY DEPARTMENT REPOSITORY ORIGINAL XR ABDOMEN AP CLINICAL STATEMENT: [...] 1 VIEW Observed: 11/08/2018 Status: F Source: [facility] 8:06 PM [facility] EMERGENCY DEPARTMENT REPOSITORY ORIGINAL XR CHEST 1 VIEW CLINICAL [...] 1-2 HRS Observed: 11/08/2018 Status: F Source: [place] [employer] TECH TIME 9:30 AM [facility] EMERGENCY DEPARTMENT REPOSITORY ORIGINAL Fluoroscopy, 11/08/2018 6:26 PM INDICATION: [...] PM CBC Collected: 11/08/2018 Status: F Source: [facility] 6:02 AM [facility] EMERGENCY DEPARTMENT REPOSITORY TYPE CODE TESTS RESULT OUT OF [...] #### CBC, ADIFF, ANEU, BMP, GFR #### [place] [address] .AUTO DIFF Collected: 11/08/2018 Status: F Source: [facility] 6:02 AM [facility] EMERGENCY DEPARTMENT REPOSITORY TYPE CODE TESTS RESULT OUT OF [...] #### CBC, ADIFF, ANEU, BMP, GFR #### [place] [address] .NEUABS Collected: 11/08/2018 Status: F Source: [facility] 6:02 AM [facility] EMERGENCY DEPARTMENT REPOSITORY TYPE CODE TESTS RESULT OUT OF REFERENCE UNITS RANGE LAB ANEU(LOINC) 2.25-8.10 10 3/mcL Neutrophil, 4.50 Absolute Performed By: #### CBC, ADIFF, ANEU, BMP, GFR #### [place] [address] BMP Collected: 11/08/2018 Status: F Source: [facility] 6:02 AM [facility] EMERGENCY DEPARTMENT REPOSITORY TYPE CODE TESTS RESULT OUT OF [...] #### CBC, ADIFF, ANEU, BMP, GFR #### [place] [address] .GFR Collected: 11/08/2018 Status: F Source: [facility] 6:02 AM [facility] EMERGENCY DEPARTMENT REPOSITORY TYPE CODE TESTS RESULT OUT OF REFERENCE UNITS RANGE LAB GFRAA(LOINC ml/min/1.73 ) sqm GFR 37 Sudanese Result Comment: GFR Population mean for , [...] #### CBC, ADIFF, ANEU, BMP, GFR #### [place] [address] XR HIP MINIMUM 2 Observed: 11/07/2018 Status: F Source: [place] [employer] VIEWS RIGHT 8:08 PM [facility] REPOSITORY ORIGINAL [...] PM BMP Collected: 11/07/2018 Status: F Source: [facility] 7:58 PM [facility] EMERGENCY DEPARTMENT REPOSITORY TYPE CODE TESTS RESULT OUT OF [...] Performed By: #### BMP, GFR, PBNP #### [place] [address] .GFR Collected: 11/07/2018 Status: F Source: [facility] 7:58 PM [facility] EMERGENCY DEPARTMENT REPOSITORY TYPE CODE TESTS RESULT OUT OF REFERENCE UNITS RANGE LAB GFRAA(LOINC ml/min/1.73 ) sqm GFR 36 Sudanese Result Comment: GFR Population mean for , [...] Performed By: #### BMP, GFR, PBNP #### [place] [address] PBNP Collected: 11/07/2018 Status: F Source: [facility] 7:58 PM [facility] EMERGENCY DEPARTMENT REPOSITORY TYPE CODE TESTS RESULT OUT OF REFERENCE UNITS RANGE LAB PBNP(LOINC) 0-900 pg/mL High N-Terminal 98171 proBNP Result Comment: NT-proBNP results of less than 300 pg/mL effectively rules out acute congestive heart failure with 99% negative predictive value. Performed By: #### BMP, GFR, PBNP #### [address] [address] DISCHARGE SUMMARY Observed: 11/07/2018 Status: F Source: [facility] 4:13 PM [facility] REPOSITORY [facility] Medical Records Department [address] [place] [address] Discharge Summary 11/07/18 1557 MR#: [id number] Acct: [id number] Name: JADA COLUNGA Rep #: [id number] : 1955 63 From: Akhil Woods MD PCP: OUT OF TOWN DOCTOR Status: ADM IN Y Location: [facility] FC794-2 Discharge Date and Diagnosis - Problem List [...] Course and Treatment Consultations 11/05/18 18:53 Consult: Onc/Wound/assistant manager trainee Routine Comment: Operations: None Summary of Care [...] Mensah and recommended further evaluation by Dr. Moreira who is joint a specialist for [facility]. 1. Acute right intertrochanteric hip fracture secondary to fall on chronic degenerative joint disease. Patient is being admitted on regular MedSurg floor. Patient was seen by Dr. Mensah. Pain management. Needs further evaluation by Dr. Moreira. Discussed with Dr. Mensah today he advised transfer to tertiary care center as Dr. Moreira is not available. Patient has advanced left hip joint and needs total hip replacement. Transfer line to [facility] called and discussed with Dr. Jim Barreto, hospitalist who accepted the patient. Discussed about the need for drapery cutter to follow-up on recent acute kidney injury. [...] had 325 mill in output. Seen by drapery cutter. Discussed with him. 2. Decubitus ulcer right heel, stage II nonhealing, 3 x 3 cm and left heel ulceration/crack: Being followed by information security associate. Patient had debridement done. Dr. Blankenship consult [...] with CPAP 16. Hypophosphatemia Transfer line to [facility] called and discussed with Dr. Jim Barreto, hospitalist who accepted the patient. Discussed about the need for drapery cutter to follow-up on recent acute kidney injury. [...] TID PRN PRN 11/05/18 Primary Care Physician: [facility] Doctor,Out of [Primary Care Provider] - Medical Necessity - Tobacco Use Smoking Status: Never smoker Tobacco Use: Non-smoker Meaningful Use Info Meaningful Use Diagnoses (Choose all that apply): None applicable Code Visit Inpatient E AND M: 66339 Disch Hosp 11/07/18 1613 <Electronically signed by Akhil Woods MD> Date Akhil Woods MD Cosigner Signature (if applicable): Date CC: OUT OF TOWN DOCTOR; Akhil Woods MD Signed CONSULTATION Observed: 11/07/2018 Status: F Source: [facility] 1:54 PM [facility] REPOSITORY [facility] Medical Records Department [address] [place] [address] Consultation 11/07/18 1350 MR#: [id number] Acct: [id number] Name: JADA COLUNGA Rep #: [id number] : 1955 63 From: Raúl Mendes MD PCP: OUT OF TOWN DOCTOR Status: ADM IN Y Location: [facility] [id number] Problem List (1) Cellulitis of right heel [...] (Verified 11/05/18 11:26) goofy, anxious, elevated BP Vguhswi-Svm-Qzv Reductase Inhibitor Adverse Reaction (Verified 11/05/18 11:26) [...] well controlled. Will follow, thank you. 11/07/18 1357 <Electronically signed by Raúl Mendes MD> Date Raúl Mendes MD Cosigner Signature (if applicable): Date CC: Syed [place] MD; Jeremie GAYM; Justin Mensah DO; OUT OF TOWN DOCTOR; Raúl Mendes MD Signed URINALYSIS, COMPLETE Collected: 11/07/2018 Status: F Source: [place] 1:45 PM [facility] REPOSITORY Order Comment: How was Urine Obtained? NURSERY TEACHER TO SPECIFY TYPE CODE TESTS RESULT OUT [...] 0 SEEN Performed By: #### L400.0001 #### [facility] [address] [facility] [facility] [address] URINE SODIUM Collected: 11/07/2018 Status: F Source: [place] 1:45 PM [facility] REPOSITORY TYPE CODE TESTS RESULT OUT OF RANGE REFERENCE UNITS LAB L501.5500 Not Establ. mmol/L Normal UR NA 7 Performed By: #### L501.5500 #### [facility] [address] [facility] [address] [facility] [address] CREATININE, URINE Collected: 11/07/2018 Status: F Source: [place] 1:45 PM [facility] REPOSITORY TYPE CODE TESTS RESULT OUT OF RANGE REFERENCE UNITS LAB L502.0300 NO RANGE EST. mg/dL Normal URINE 302.00 CREAT Performed By: #### L502.0300 #### [facility] [address] [facility] [facility] [address] CONSULTATION Observed: 11/07/2018 Status: F Source: [place] 11:49 AM [facility] REPOSITORY [facility] Medical Records Department [address] [place] [address] Consultation 11/07/18 1143 MR#: [id number] Acct: [id number] Name: JADA COLUNGA Rep #: [id number] : 1955 63 From: Syed Neville MD PCP: OUT OF TOWN DOCTOR Status: ADM IN Y Location: [facility] [id number] Problem List (1) Acute kidney injury Status: Resolved Consultation - Renal PCP/ Referring MD: Requesting physician: [] Primary care physician: Out of [facility] Doctor - History of Present Illness History [...] (Verified 11/05/18 11:26) goofy, anxious, elevated BP Juiggng-Mdp-Lqb Reductase Inhibitor Adverse Reaction (Verified 11/05/18 11:26) rhabdomyolosis - Current Medications Current Medications: Current Medications Amlodipine Besylate (Norvasc) 10 mg PO DAILY [facility] Last Admin: 11/07/18 08:01 Dose: 10 mg Aspirin (Aspirin, Baby) 81 mg PO DAILY@0800 [facility] Last Admin: 11/07/18 08:01 Dose: 81 mg Atorvastatin Calcium (Lipitor) 80 mg PO QHS [facility] Last Admin: 11/06/18 22:10 Dose: 80 mg Bisacodyl (Dulcolax) 10 mg RECTAL .X1 PRN PRN PRN Reason: See label comments Bisacodyl (Dulcolax) 10 mg PO .X1 PRN PRN PRN Reason: See label comments Calamine/Phenol (Calmoseptine Ointment) 1 applic TOPICAL TID [facility]; Protocol Last Admin: 11/07/18 05:30 Dose: 1 applicatio Carvedilol (Coreg) 25 mg PO BID [facility] Last Admin: 11/07/18 08:01 Dose: 25 mg Diphenhydramine HCl (Benadryl) 12.5 - 25 mg PO Q6H PRN PRN PRN Reason: Pruritis Duloxetine HCl (Cymbalta) 30 mg PO DAILY [facility] Last Admin: 11/07/18 08:01 Dose: 30 mg Enoxaparin Sodium (Lovenox) 40 mg SC DAILY [facility] Last Admin: 11/07/18 08:00 Dose: 40 mg Ferrous Sulfate ([facility]ous Sulfate) [facility] Last Admin: 11/07/18 08:01 Dose: 325 mg Furosemide (Lasix) 40 mg PO DAILY [facility] Last Admin: 11/07/18 08:01 Dose: 40 mg Gabapentin (Neurontin) 600 mg PO TIDCM [facility] Last Admin: 11/07/18 11:07 Dose: 600 mg Hydralazine HCl (Apresoline) 25 mg PO TID [facility] Last Admin: 11/07/18 05:30 Dose: 25 mg Naloxone HCl 4 mg/ Dextrose 504 mls @ 0 mls/hr IV .Q0M PRN; Protocol PRN Reason: To maintain Resp. rate >10 Vancomycin IV Pharmacy to Dose (1 ea/ Sodium Chloride) 500 mls @ 250 mls/hr IV DAILY [facility]; Protocol Vancomycin HCl (Vancomycin) 1,000 mg in 200 mls @ 200 mls/hr IV Q24H [facility] Last Admin: 11/06/18 16:25 Dose: 200 mls/hr Insulin Glargine (Lantus (Bkc)) 25 units SC DAILY [facility] Last Admin: 11/07/18 08:01 Dose: 25 units Insulin Glargine (Lantus (Bk)) 15 units SC QHS [facility] Last Admin: 11/06/18 22:11 Dose: Not Given Insulin Human Lispro (Humalog Kwikpen ([facility])) 0 unit SC ACHS [facility]; Protocol Last Admin: 11/07/18 11:08 Dose: Not Given Isosorbide Mononitrate (Imdur) 30 mg PO BID [facility] Last Admin: 11/07/18 08:01 Dose: 30 mg Magnesium Hydroxide (Milk Of Magnesia) 30 ml PO DAILY PRN PRN PRN Reason: Constipation Melatonin (Melatonin) 20 mg PO QHS PRN PRN Reason: SLEEP Last Admin: 11/06/18 23:07 Dose: 20 mg Morphine Sulfate () 100 mg IV UD [facility]; Protocol Last Admin: 11/05/18 17:19 Dose: 100 mg Morphine Sulfate () 2 mg IV Q3H PRN PRN PRN Reason: SEVERE PAIN (6-10/10) Last Admin: 11/07/18 06:40 Dose: 2 mg Naloxone HCl (Narcan) 0.02 mg IV Q1M PRN PRN Reason: RR <10 and pt unresponsive Nutritional Formula (Lactose Free) (Glucerna Shake) 120 ml PO 4X/DAY [facility] Last Admin: 11/07/18 08:01 Dose: 120 ml Pantoprazole Sodium (Protonix) 40 mg PO DAILY [facility] Last Admin: 11/07/18 08:00 Dose: 40 mg Potassium Chloride (K[facility]Dur) [facility] Last Admin: 11/07/18 08:01 Dose: 20 meq Promethazine HCl (Phenergan) 6.25 mg IV Q4H PRN PRN PRN Reason: NAUSEA/VOMITING Last Admin: 11/07/18 07:20 Dose: 6.25 mg Senna/Docusate Sodium (Senokot-S, Kaur-Colace) 2 tablet PO QHS [facility] Last Admin: 11/06/18 22:10 Dose: 2 tablet Sertraline HCl (Zoloft) 100 mg PO DAILY [facility] Last Admin: 11/07/18 08:00 Dose: 100 mg Sodium Chloride () 5 - 15 ml IV UD PRN PRN Reason: SALINE FLUSH Last Admin: 11/07/18 07:23 Dose: 10 ml Sodium Chloride (Mineral Nasal [place]) 1 spray NASAL TID PRN PRN PRN Reason: NASAL DRYNESS Tamsulosin HCl (Flomax) 0.4 mg PO DAILY@0830 FRANSICO Last Admin: 11/07/18 08:01 Dose: 0.4 mg [...] cholecystectomy, coronary bypass surgery - 2004 - [facility], herniorrhaphy, tonsillectomy, - - Cardiac stent placement 24 (according to patient), right carotid endarterectomy. - Social History Smoking Status: Never smoker Alcohol: Rare Drugs: None - Family History Maternal History Items: No pertinent history Paternal History Items: Heart Disease - of an [place] at age 61 Sibling History Items: No [...] discuss with the primary service physician 11/07/18 6798 <Electronically signed by Syed Neville MD> Date Syed Neville MD Cosigner Signature (if applicable): Date CC: Syed Neville MD; Jeremie GAYM; Justin Mensah DO; OUT OF TOWN DOCTOR; Raúl Mendes MD Signed BEDSIDE GLUCOSE Collected: 11/07/2018 Status: F Source: SANDRA 11:06 AM [facility] REPOSITORY TYPE CODE TESTS RESULT OUT OF RANGE REFERENCE UNITS LAB L501.080 70-110 mg/dL Normal BEDSIDE GLU 109 Result Comment: MANAGEMENT OF PATIENT CARE PER NURSING PROTOCOL Performed By: #### L501.080 #### [facility] Point of Care [address] [place] [address] BEDSIDE GLUCOSE Collected: 11/07/2018 Status: F Source: SANDRA 6:39 AM [facility] REPOSITORY TYPE CODE TESTS RESULT OUT OF REFERENCE UNITS RANGE LAB L501.080 70-110 mg/dL High BEDSIDE GLU 116 Result Comment: MANAGEMENT OF PATIENT CARE PER NURSING PROTOCOL Performed By: #### L501.080 #### [facility] Point of Care [address] [place] [address] BASIC METABOLIC Collected: 11/07/2018 Status: F Source: SANDRA PROFILE (BMP) 5:45 AM [facility] REPOSITORY Order Comment: SPECIMEN OBTAINED FROM [...] GAP 8 Performed By: #### L500.2500 #### [facility] [address] [facility] [place], [address] BEDSIDE GLUCOSE Collected: 11/06/2018 Status: F Source: [place] 10:05 PM [facility] REPOSITORY TYPE CODE TESTS RESULT OUT OF RANGE REFERENCE UNITS LAB L501.080 70-110 mg/dL Normal BEDSIDE GLU 104 Result Comment: MANAGEMENT OF PATIENT CARE PER NURSING PROTOCOL Performed By: #### L501.080 #### [facility] Point of Care [address] [facility] [place] [address] MRSA WOUND DNA BY Collected: 11/06/2018 Status: F Source: [place] PCR 6:25 PM [facility] REPOSITORY Order Comment: Comments: RIGHT HEEL TYPE CODE TESTS RESULT OUT OF REFERENCE UNITS RANGE LAB L8200.1100 Negative High MRSA POSITIVE RESULT Result Comment: CALLED TO Polly CALDERA 11/06/181956 BY [facility] LAB L8200.1150 Negative High SA RESULT POSITIVE Performed By: #### L8200.1075 #### [facility] [address] [facility] [place], [address] M R STAPH AUREUS Collected: 11/06/2018 Status: F Source: [place] DNA BY PCR 6:15 PM [facility] REPOSITORY TYPE CODE TESTS RESULT OUT OF RANGE REFERENCE UNITS LAB L8200.1100 Negative Normal MRSA Negative RESULT Performed By: #### L8200.1000 #### [facility] [address] [place], [address] BEDSIDE GLUCOSE Collected: 11/06/2018 Status: F Source: [place] 4:33 PM [facility] REPOSITORY TYPE CODE TESTS RESULT OUT OF REFERENCE UNITS RANGE LAB L501.080 70-110 mg/dL High BEDSIDE GLU 151 Result Comment: MANAGEMENT OF PATIENT CARE PER NURSING PROTOCOL Performed By: #### L501.080 #### [facility] Point of Care [address] [facility] [place] [address] CONSULTATION Observed: 11/06/2018 Status: F Source: [place] 1:05 PM [facility] REPOSITORY [facility] Medical Records Department [address] [facility] [place] [address] Consultation 11/05/18 1833 MR#: [id number] Acct: [id number] Name: JADA COLUNGA Rep #: [id number] : 1955 63 From: Jeremie Blankenship DPM PCP: OUT OF TOWN DOCTOR Status: ADM IN Y Location: [facility] [id number] Reason for Consult Date of Consultation: 11/05/18 Reason for Consultation: Heel ulcers History of Present Illness: The patient is a 63 year old male with history of bilateral heel ulcerations, was last seen by myself end of 2018, had bilateral heel debridement, had infection to the right foot, was +MRSA at that time, he ultimately was transferred to [facility] due to DENISHA, he relates he did [...] (Verified 11/05/18 11:26) goofy, anxious, elevated BP Zneubft-Rwg-Pvd Reductase Inhibitor Adverse Reaction (Verified 11/05/18 11:26) rhabdomyolosis Home Medications: Ambulatory Orders Medication Instructions Recorded Isosorbide Mononitrate [Imdur] 30 mg PO BID 03/05/16 Surgical History: appendectomy, cataract, cholecystectomy, coronary bypass surgery - 2004 - [facility], herniorrhaphy, tonsillectomy, - - Cardiac stent placement 24 (according to patient), right carotid endarterectomy. Psychiatric History: No pertinent psych hx Lives: With Family - he and his daughter live together, - - Smoking Status: Never smoker Tobacco Use: Non-smoker Alcohol: Rare Drugs: None - *Family History Maternal History Items: No pertinent history Paternal History Items: Heart Disease - of an [place] at age 61 Sibling History Items: No [...] Signed CONSULTATION Observed: 11/06/2018 Status: F Source: [place] 12:16 PM [facility] REPOSITORY [facility] Medical Records Department [address] [place] [address] Consultation 11/06/18 1203 MR#: [id number] Acct: [id number] Name: JADA COLUNGA Rep #: [id number] : 1955 63 From: Justin Mensah DO PCP: OUT OF TOWN DOCTOR Status: ADM IN Y Location: [facility] [id number] Reason for Consult Date of Consultation: 11/06/18 [...] (Verified 11/05/18 11:26) goofy, anxious, elevated BP Kofddnu-Qzi-Bnp Reductase Inhibitor Adverse Reaction (Verified 11/05/18 11:26) rhabdomyolosis Home Medications: Ambulatory Orders Medication Instructions Recorded Isosorbide Mononitrate [Imdur] 30 mg PO BID 03/05/16 Surgical History: appendectomy, cataract, cholecystectomy, coronary bypass surgery - 2005 - [facility], herniorrhaphy, tonsillectomy, - - Cardiac stent placement 24 (according to patient), right carotid endarterectomy. Psychiatric History: No pertinent psych hx Lives: With Family - he and his daughter live together, - - Smoking Status: Never smoker Tobacco Use: Non-smoker Alcohol: Rare Drugs: None - *Family History Maternal History Items: No pertinent history Paternal History Items: Heart Disease - of an [place] at age 61 Sibling History Items: No [...] signed by Justin Mensah DO> Date Justin Mensah DO Cosigner Signature (if applicable): Date CC: Jeremie GAYM; Justin Mensah DO; OUT OF TOWN DOCTOR Signed BEDSIDE GLUCOSE Collected: 11/06/2018 Status: F Source: SANDRA 12:02 PM [facility] REPOSITORY TYPE CODE TESTS RESULT OUT OF REFERENCE UNITS RANGE LAB L501.080 70-110 mg/dL High BEDSIDE GLU 169 Result Comment: MANAGEMENT OF PATIENT CARE PER NURSING PROTOCOL Performed By: #### L501.080 #### [facility] Point of Care [address] [place] [address] BEDSIDE GLUCOSE Collected: 11/06/2018 Status: F Source: SANDRA 6:36 AM [facility] REPOSITORY TYPE CODE TESTS RESULT OUT OF REFERENCE UNITS RANGE LAB L501.080 70-110 mg/dL High BEDSIDE GLU 228 Result Comment: MANAGEMENT OF PATIENT CARE PER NURSING PROTOCOL Performed By: #### L501.080 #### [facility] Point of Care [address] [place] [address] CBC-COMPLETE BLOOD CNT Collected: 11/06/2018 Status: F Source: SANDRA NO DIFF 6:05 AM [facility] REPOSITORY TYPE CODE TESTS RESULT OUT [...] MPV 9.8 Performed By: #### L100.0500 #### [facility] [address] [place], [address] BASIC METABOLIC Collected: 11/06/2018 Status: F Source: [place] PROFILE (BMP) 6:05 AM [facility] REPOSITORY TYPE CODE TESTS RESULT OUT [...] Performed By: #### L500.2500, L500.4100, L501.5200 #### [facility] [address] [facility] [place], [address] LIPID PROFILE Collected: 11/06/2018 Status: F Source: [place] 6:05 AM [facility] REPOSITORY TYPE CODE TESTS RESULT OUT [...] Performed By: #### L500.2500, L500.4100, L501.5200 #### [facility] [address] [place], [place], [address] MAGNESIUM Collected: 11/06/2018 Status: F Source: [place] 6:05 AM [facility] REPOSITORY TYPE CODE TESTS RESULT OUT OF RANGE REFERENCE UNITS LAB L501.5200 1.6-2.6 mg/dL High MG 2.7 Performed By: #### L500.2500, L500.4100, L501.5200 #### [facility] [address] [place], [address] BEDSIDE GLUCOSE Collected: 11/05/2018 Status: F Source: SANDRA 9:32 PM [facility] REPOSITORY TYPE CODE TESTS RESULT OUT OF REFERENCE UNITS RANGE LAB L501.080 70-110 mg/dL High BEDSIDE GLU 213 Result Comment: MANAGEMENT OF PATIENT CARE PER NURSING PROTOCOL Performed By: #### L501.080 #### [facility] Point of Care [address] [place] [address] HISTORY AND PHYSICAL Observed: 11/05/2018 Status: F Source: [place] EXAM 5:26 PM [facility] REPOSITORY [facility] Medical Records Department [address] [place] [address] History and Physical 11/05/18 1433 MR#: [id number] Acct: [id number] Name: JADA COLUNGA Rep #: [id number] : 1955 63 From: Kenyon Hanks DO PCP: OUT OF TOWN DOCTOR Status: ADM IN Y Location: [facility] [id number] ADDENDUM by Geraldine Hanks on 11/05/18 at 1726 Code Visit Inpatient E AND M: [id number] Init Hosp L3 11/05/18 1726 <Electronically signed [...] who presented to the emergency department at [facility] on 11/05/2018 complaining of right hip pain [...] has been following with with cardiology in [facility] but, recently moved back to [place] and 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 The last stress test was [...] (Verified 11/05/18 11:26) goofy, anxious, elevated BP Bhvblfu-Pkp-Ywk Reductase Inhibitor Adverse Reaction (Verified 11/05/18 11:26) rhabdomyolosis Home Medications: Ambulatory Orders Medication Instructions Recorded Isosorbide Mononitrate [Imdur] 30 mg PO BID 03/05/16 Surgical History: appendectomy, cataract, cholecystectomy, coronary bypass surgery - 2005 - [facility], herniorrhaphy, tonsillectomy, - - Cardiac stent placement 24 (according to patient), right carotid endarterectomy. Psychiatric History: No pertinent psych hx Lives: With Family - he and his daughter live together, - - Smoking Status: Never smoker Tobacco Use: Non-smoker Alcohol: Rare Drugs: None - *Family History Maternal History Items: No pertinent history Paternal History Items: Heart Disease - of an [place] at age 61 Sibling History Items: No [...] past-recent chemical nuclear stress test with minimal karu-infarct ischemia 5. Diabetes mellitus type 2 6. [...] apnea-compliant with CPAP 16. Hypophosphatemia Admitted to [facility] on Telemetry Dr. Mensah on consult CT [...] phosphorus Lipid panel in the a.m. 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 Recently told he has [...] 11/05/2018 Status: F Source: SANDRA 5:01 PM [facility] REPOSITORY TYPE CODE TESTS RESULT OUT OF REFERENCE UNITS RANGE LAB L501.080 70-110 mg/dL High BEDSIDE GLU 232 Result Comment: MANAGEMENT OF PATIENT CARE PER NURSING PROTOCOL Performed By: #### L501.080 #### [facility] Point of Care [address] [place], [place] [address] URINALYSIS, COMPLETE Collected: 11/05/2018 Status: F Source: SANDRA 4:45 PM [facility] REPOSITORY Order Comment: How was Urine [...] URINE SEEN Performed By: #### L400.0001 #### [facility] [address] [place], [address] Observed: 11/05/2018 Status: F Source: SANDRA CULTURE, WOUND 4:45 PM [facility] REPOSITORY List Antibiotics Last 48 Hours? none Comments: decub R heel Gram Stain Gram Stain 1+ Gram positive cocci 1+ White Blood Cells Wound Culture RESULTS CALLED TO /NURSE LINE 11/10/18 0810 Teodora Mazariegos. Copy of report sent to Infection Control Printer [id number] 11/08/18 0816 DCANNON. ORGANISM 1: Meth. resistant Staph. aureus Amount [...] <=0.5 S (NF) indicates non-formulary drug at [facility]. Approval by Infectious Disease Specialist required [...] 0.5 S (NF) indicates non-formulary drug at [facility]. Approval by Infectious Disease Specialist required before non-formulary drugs may be ordered and/or dispensed. * CLSI guidelines does not recommend testing of cephalosporins. This interpretation is deduced from Beta-lactam/penicillin results. Performed By: #### M100.1400 #### [facility] [address] [place], [place], [address] Observed: 11/05/2018 Status: F Source: SANDRA CULTURE, URINE 4:35 PM [facility] REPOSITORY Urine Culture Culture exhibits no growth. Performed By: #### M100.0650 #### [facility] [address] [place], [place], [address] FOOT 2 VIEWS Observed: 11/05/2018 Status: F Source: SANDRA 4:22 PM [facility] REPOSITORY [facility] Imaging Services [address] [place] [address] Foot 2 Views MR#: [id number] Acct: [id number] Name: JADA COLUNGA Rep #: [id number] : 1955 M 63 From: Gerardo Villegas MD PCP: OUT OF TOWN DOCTOR Status: ADM IN Study: Foot 2 Views Date of Exam: 11/05/18 Exam# [id number] Ordering Dr: Jeremie Blankenship DPM STUDY: X-RAY [...] Jeremie Blankenship DPM; OUT OF TOWN DOCTOR Interior Systems Carpenter: Signed EMERGENCY DEPARTMENT Observed: 11/05/2018 Status: F Source: [place] SUMMARY 4:04 PM [facility] REPOSITORY [facility] Medical Records Department [address] [place] [address] Emergency Department Summary 11/05/18 1133 MR#: [id number] Acct: [id number] Name: JADA COLUNGA Rep #: [id number] : 1955 63 From: Jeremie Li MD [...] peritoneal signs. Upper extremities are nontender. 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 Wrists, elbows and shoulders are nontender. [...] hip fracture This note was generated with [employer] dictation software. It may contain incorrect words, spelling, and punctuation that were not noted in review of the chart prior to signing ED Disposition - Plan for ED Patient: Chief Complaint: Fall Referrals: [facility] Doctor,Out of [Primary Care Provider] - What to do if you have Problems For any increased pain, shortness of breath, bleeding, nausea or vomiting, chest pain, or any unexpected problems, contact your Primary Care Provider. Call [facility] ([phone]) or report to the closest Emergency Room. Call 911 if necessary. 11/05/18 1604 <Electronically signed by Jeremie Li MD> Date Jeremie Li MD Cosigner Signature (If Indicated): Date CC: OUT OF TOWN DOCTOR CHEST 1 VIEW Observed: 11/05/2018 Status: F Source: [place] 3:05 PM [facility] REPOSITORY [facility] Imaging Services [address] [place] [address] Chest 1 View MR#: [id number] Acct: [id number] Name: JADA COLUNGA Rep #: [id number] : 1955 M 63 From: Boris Lizarraga MD PCP: OUT OF TOWN DOCTOR Status: ADM IN Study: Chest 1 View Date of Exam: 11/05/18 Exam# [id number] Ordering Dr: Kenyon Hanks DO STUDY: X-RAY [...] No acute thoracic pathology. Electronically Signed: Boris Letyoneal, at 15:37 EST Tel , Service support , CC: Geraldine Hanks; OUT OF TOWN DOCTOR Interior Systems Carpenter: Signed PELVIS WITHOUT IV Observed: 11/05/2018 Status: F Source: [place] CONTRAST 3:05 PM [facility] REPOSITORY [facility] Imaging Services [address] [place] [address] Pelvis without IV Contrast MR#: [id number] Acct: [id number] Name: JADA COLUNGA Rep #: [id number] : 1955 M 63 From: Gerardo Villegas MD PCP: OUT OF TOWN DOCTOR Status: ADM IN Study: Pelvis without IV Contrast Date of Exam: 11/05/18 Exam# [id number] Ordering Dr: Kenyon Hanks DO STUDY: CT [...] CC: Geraldine Hanks; OUT OF TOWN DOCTOR Interior Systems Carpenter: Signed CBC-COMPLETE BLOOD CNT Collected: 11/05/2018 Status: F Source: [place]DR[place] NO DIFF 12:50 PM [facility] REPOSITORY TYPE CODE TESTS RESULT OUT [...] MPV 9.6 Performed By: #### L100.0500 #### [facility] [address] [place], [address] PROTHROMBIN TIME W/INR Collected: 11/05/2018 Status: F Source: [place] 12:50 PM [facility] REPOSITORY TYPE CODE TESTS RESULT OUT OF RANGE REFERENCE UNITS LAB L300.4150 11.7-14.9 SECONDS High PROTIME 17.0 LAB L300.4200 Normal INR 1.4 Performed By: #### L300.3900 #### [facility] [address] [facility] [place], [address] BASIC METABOLIC Collected: 11/05/2018 Status: F Source: [place] PROFILE (BMP) 12:50 PM [facility] REPOSITORY TYPE CODE TESTS RESULT OUT [...] GAP 7 Performed By: #### L500.2500 #### [facility] [address] [place], [address] TYPE AND SCREEN Collected: 11/05/2018 Status: F Source: [place] 12:50 PM [facility] REPOSITORY Order Comment: Reason for Type AND Screen/Red Cells: SURGERY Type of Surgery: FRACTURED HIP TYPE CODE TESTS RESULT OUT OF RANGE REFERENCE UNITS LAB B10.0800 A Normal BLOOD TYPE GEL POSITIVE LAB B100.4000 Normal Antibody NEGATIVE Screen Performed By: #### B101.7450 #### [facility] [address] [facility] [place], [address] PHOSPHORUS Collected: 11/05/2018 Status: F Source: [place] 12:50 PM [facility] REPOSITORY TYPE CODE TESTS RESULT OUT OF RANGE REFERENCE UNITS LAB L501.2300 2.5-4.9 mg/dL Low PHOS 2.2 Performed By: #### L501.2300, L501.5200 #### [facility] [address] [place], [address] MAGNESIUM Collected: 11/05/2018 Status: F Source: [place] 12:50 PM [facility] REPOSITORY TYPE CODE TESTS RESULT OUT OF RANGE REFERENCE UNITS LAB L501.5200 1.6-2.6 mg/dL Normal MG 2.4 Performed By: #### L501.2300, L501.5200 #### [facility] [address] [place], [address] HEMOGLOBIN A1C Collected: 11/05/2018 Status: F Source: [place] 12:50 PM [facility] REPOSITORY TYPE CODE TESTS RESULT OUT OF RANGE REFERENCE UNITS LAB L501.9985 4.2-6.3 % High HGB A1C 7.8 Performed By: #### L501.9985 #### [facility] [address] [place], [address] HIP, UNI W/ PELVIS Observed: 11/05/2018 Status: F Source: [place]DRA 2-3 VIEWS 11:33 AM [facility] REPOSITORY [facility] Imaging Services [address] [place] [address] HIP, UNI W/ Pelvis 2-3 Views MR#: [id number] Acct: [id number] Name: JADA COLUNGA Rep #: [id number] : 1955 M 63 From: Harry Fair MD PCP: OUT OF TOWN DOCTOR Status: REG ER Study: HIP, UNI W/ Pelvis 2-3 Views Date of Exam: 11/05/18 Exam# [id number] Ordering Dr: Jeremie Li MD STUDY: X-RAY [...] Jeremie Li MD; OUT OF TOWN DOCTOR Interior Systems Carpenter: Signed 12 LEAD ELECTROCARDIOGRAM Observed: 11/04/2018 Status: F Source: SANDRA 5:30 PM [facility] REPOSITORY [facility] Cardiovascular Services [address] [place] [address] 12 Lead EKG 11/03/18 0533 MR#: [id number] Acct: [id number] Name: JADA COLUNGA W Rep #: [id number] : 1955 63 From: Faisal Rg MD Attending Dr: Leidy Parrish MD Status: DIS IN Ordering Dr: Gumaro Ott MD Date: 11/03/18 Location: [facility] Sex: M C Admitted: 10/28/18 Test Reason [...] found Confirmed by FAISAL RG MD ([id number]), loan expeditor MATHIEU KOENIG ([id number]) on 11/04/2018 5:30:16 PM Referred By: [facility] Confirmed By:FAISAL RG MD 11/04/18 173 Date Faisal Rg MD CC: Leidy Parrish MD; OUT OF TOWN DOCTOR; Gumaro Ott MD Signed DISCHARGE SUMMARY Observed: 11/03/2018 Status: F Source: [place] 3:49 PM [facility] REPOSITORY [facility] Medical Records Department [address] [place] [address] Discharge Summary 11/03/18 1528 MR#: [id number] Acct: [id number] Name: JADA COLUNGA Rep #: [id number] : 1955 63 From: Antonio ONTIVEROS PCP: OUT OF TOWN DOCTOR Status: ADM IN Y [id number] <Antonio Ham - Last Filed: 11/03/18 15:33> [...] Small right pleural effusion. [facility] 10/28/18 05:19 Consult: Onc/Wound/assistant manager trainee Routine Comment: pressure injuries to bilateral heels [...] surgeons that took care of him at [facility] as well. This patient was seen [...] 5 Days, Location: Laboratory Primary Care Physician: [facility] Doctor,Out of [Primary Care Provider] - Please [...] Course and Treatment Consultations 10/28/18 05:19 Consult: Onc/Wound/assistant manager trainee Routine Comment: pressure injuries to bilateral heels Summary of Care Provided: This patient was seen in conjunction with Antonio Fatoumata PA-C . I have independently interviewed and [...] POC Glucose 230 H Code Visit Inpatient [facility] AND M: [id number] Disch Hosp 11/03/18 1538 <Electronically signed by Antonio ONTIVEROS> Date Antonio ONTIVEROS 11/03/18 1549<Electronically signed by Leidy Parrish MD> Cosigner Signature (if applicable): Date Leidy Parrish MD CC: RAMA Ham; Leidy Parrish MD; OUT OF TOWN DOCTOR Signed DISCHARGE INSTRUCTION Observed: 11/03/2018 Status: F Source: SANDRA 3:28 PM [facility] REPOSITORY [facility] Medical Records Department [address] [place] [address] Instructions for Home/Discharge Instructions 11/03/18 1524 MR#: [id number] Acct: [id number] Name: JADA COLUNGA Rep #: [id number] : 1955 63 From: Antonio ONTIVEROS PCP: [...] (Verified 10/13/18 12:27) goofy, anxious, elevated BP Znpsjgs-Eal-Jfg Reductase Inhibitor Adverse Reaction (Verified 10/13/18 16:05) [...] DAILY #30 tablet 11/03/18 Insulin Glargine,Hum.rec.anlog [Basaglar Shaylaikpen U-100] 10 unit SC QHS #1 pen [...] 5 Days, Location: Laboratory Primary Care Physician: [facility] Doctor,Out of [Primary Care Provider] - Please [...] STRESS REPORT Observed: 11/03/2018 Status: F Source: SANDRA 12:52 PM [facility] REPOSITORY [facility] Cardiovascular Services [address] [place] [address] MR#: [id number] Acct: [id number] Name: JADA COLUNGA Rep #: [id number] : 1955 63 From: Faisal Rg MD Primary Care: OUT OF TOWN DOCTOR Status: ADM IN Ordering Dr: Adams: M C Stress Test Report Pharmacologic myocardial perfusion [...] apical infarct with minimal kaur-infarct ischemia. 11/03/18 3622 <Electronically signed by Faisal Rg MD> Date Faisal Rg MD CC: Leidy Parrish MD; OUT OF TOWN DOCTOR Date Dictated: 11/03/181248 Date Transcribed: 11/03/181248 Interior Systems Carpenter: CO Signed BEDSIDE GLUCOSE Collected: 11/03/2018 Status: F Source: SANDRA 10:40 AM [facility] REPOSITORY TYPE CODE TESTS RESULT OUT OF REFERENCE UNITS RANGE LAB L501.080 70-110 mg/dL High BEDSIDE GLU 213 Result Comment: MANAGEMENT OF PATIENT CARE PER NURSING PROTOCOL Performed By: #### L501.080 #### [facility] Point of Care [address] [place], [place] [address] BEDSIDE GLUCOSE Collected: 11/03/2018 Status: F Source: SANDRA 4:56 AM [facility] REPOSITORY TYPE CODE TESTS RESULT OUT OF REFERENCE UNITS RANGE LAB L501.080 70-110 mg/dL High BEDSIDE GLU 180 Result Comment: MANAGEMENT OF PATIENT CARE PER NURSING PROTOCOL Performed By: #### L501.080 #### [facility] Point of Care [address] [place] [address] CBC W/DIFF, AUTOMATED Collected: 11/03/2018 Status: F Source: SANDRA 4:10 AM [facility] REPOSITORY TYPE CODE TESTS RESULT OUT [...] Lymph 0.77 Performed By: #### L100.0100 #### [facility] [address] [place], [place], [address] BASIC METABOLIC Collected: 11/03/2018 Status: F Source: [place] PROFILE (BMP) 4:10 AM [facility] REPOSITORY TYPE CODE TESTS RESULT OUT [...] GAP 10 Performed By: #### L500.2500 #### [facility] [address] [place], [address] PROTHROMBIN TIME W/INR Collected: 11/03/2018 Status: F Source: [place] 4:10 AM [facility] REPOSITORY TYPE CODE TESTS RESULT OUT OF RANGE REFERENCE UNITS LAB L300.4150 11.7-14.9 SECONDS High PROTIME 16.9 LAB L300.4200 Normal INR 1.4 Performed By: #### L300.3900, L300.4310 #### [facility]. [facility] [address] PARTIAL THROMBOPLAST Collected: 11/03/2018 Status: F Source: [place] TIME 4:10 AM [facility] REPOSITORY TYPE CODE TESTS RESULT OUT OF RANGE REFERENCE UNITS LAB L300.4310 24.1-36.2 Seconds Normal PTT 35.0 Performed By: #### L300.3900, L300.4310 #### [facility] [address] [facility] [place], [address] BEDSIDE GLUCOSE Collected: 11/02/2018 Status: F Source: [place] 10:56 PM [facility] REPOSITORY TYPE CODE TESTS RESULT OUT OF REFERENCE UNITS RANGE LAB L501.080 70-110 mg/dL High BEDSIDE GLU 225 Result Comment: MANAGEMENT OF PATIENT CARE PER NURSING PROTOCOL Performed By: #### L501.080 #### [facility] Point of Care [address] [facility] [place] [address] BEDSIDE GLUCOSE Collected: 11/02/2018 Status: F Source: [place] 4:13 PM [facility] REPOSITORY TYPE CODE TESTS RESULT OUT OF REFERENCE UNITS RANGE LAB L501.080 70-110 mg/dL High BEDSIDE GLU 230 Result Comment: MANAGEMENT OF PATIENT CARE PER NURSING PROTOCOL Performed By: #### L501.080 #### [facility] Point of Care [address] [place] [address] BEDSIDE GLUCOSE Collected: 11/02/2018 Status: F Source: [place] 10:54 AM [facility] REPOSITORY TYPE CODE TESTS RESULT OUT OF REFERENCE UNITS RANGE LAB L501.080 70-110 mg/dL High BEDSIDE GLU 230 Result Comment: MANAGEMENT OF PATIENT CARE PER NURSING PROTOCOL Performed By: #### L501.080 #### [facility] Point of Care [address] [place] [address] BEDSIDE GLUCOSE Collected: 11/02/2018 Status: F Source: [place] 7:04 AM [facility] REPOSITORY TYPE CODE TESTS RESULT OUT OF REFERENCE UNITS RANGE LAB L501.080 70-110 mg/dL High BEDSIDE GLU 139 Result Comment: MANAGEMENT OF PATIENT CARE PER NURSING PROTOCOL Performed By: #### L501.080 #### [facility] Point of Care [address] [place] [address] URINALYSIS, COMPLETE Collected: 11/02/2018 Status: F Source: [place] 5:50 AM [facility] REPOSITORY Order Comment: How was Urine [...] 0-5 SEEN Performed By: #### L400.0001 #### [facility] [address] [place], [place], [address] CBC W/DIFF, AUTOMATED Collected: 11/02/2018 Status: F Source: [place] 5:05 AM [facility] REPOSITORY TYPE CODE TESTS RESULT OUT [...] Lymph 0.89 Performed By: #### L100.0100 #### [facility] [address] [place], [place], [address] BASIC METABOLIC Collected: 11/02/2018 Status: F Source: [place] PROFILE (BMP) 5:05 AM [facility] REPOSITORY TYPE CODE TESTS RESULT OUT [...] GAP 11 Performed By: #### L500.2500 #### [facility] [address] [place], [place], [address] BEDSIDE GLUCOSE Collected: 11/02/2018 Status: F Source: [place] 3:13 AM [facility] REPOSITORY TYPE CODE TESTS RESULT OUT OF REFERENCE UNITS RANGE LAB L501.080 70-110 mg/dL High BEDSIDE GLU 153 Result Comment: MANAGEMENT OF PATIENT CARE PER NURSING PROTOCOL Performed By: #### L501.080 #### [facility] Point of Care [address] [place] [address] BEDSIDE GLUCOSE Collected: 11/01/2018 Status: F Source: [place] 9:23 PM [facility] REPOSITORY TYPE CODE TESTS RESULT OUT OF REFERENCE UNITS RANGE LAB L501.080 70-110 mg/dL High BEDSIDE GLU 200 Result Comment: MANAGEMENT OF PATIENT CARE PER NURSING PROTOCOL Performed By: #### L501.080 #### [facility] Point of Care [address] [place] [address] BEDSIDE GLUCOSE Collected: 11/01/2018 Status: F Source: [place] 4:42 PM [facility] REPOSITORY TYPE CODE TESTS RESULT OUT OF REFERENCE UNITS RANGE LAB L501.080 70-110 mg/dL High BEDSIDE GLU 185 Result Comment: MANAGEMENT OF PATIENT CARE PER NURSING PROTOCOL Performed By: #### L501.080 #### [facility] Point of Care [address] [place] [address] CONSULTATION Observed: 11/01/2018 Status: F Source: [place] 4:12 PM [facility] REPOSITORY [facility] Medical Records Department [address] [facility] [place] [address] Consultation 11/01/18 1607 MR#: [id number] Acct: [id number] Name: JADA COLUNGA Rep #: [id number] : 1955 63 From: Syed Neville MD PCP: OUT OF TOWN DOCTOR Status: ADM IN Y Location: [facility] [id number] Problem List (1) Acute kidney injury Status: Acute Consultation - Renal PCP/ Referring MD: Requesting physician: [] Primary care physician: Out of Town Doctor - History of Present Illness History of Present Illness: The patient is a 63 year old M medical history of ischemic cardiomyopathy , [place] , CHF . Patient has history of recent admission to [facility] for leg infection needed antibiotics . Patient developed AK I from antibiotics . No record available from [facility] . Patient presented with a creatinine 2.2 [...] (Verified 10/13/18 12:27) goofy, anxious, elevated BP Znehvxm-Str-Bgd Reductase Inhibitor Adverse Reaction (Verified 10/13/18 16:05) rhabdomyolosis - Current Medications Current Medications: Current Medications Amlodipine Besylate (Norvasc) 10 mg PO DAILY [facility] Last Admin: 11/01/18 08:07 Dose: 10 mg Aspirin (Aspirin, Baby) 81 mg PO DAILY@0800 [facility] Last Admin: 11/01/18 08:05 Dose: 81 mg Atorvastatin Calcium (Lipitor) 80 mg PO QHS [facility] Last Admin: 10/31/18 21:30 Dose: 80 mg Carvedilol (Coreg) 25 mg PO BID [facility] Last Admin: 11/01/18 08:06 Dose: 25 mg Dextrose (D50w Syringe) 0 gm IV X1 PRN; Protocol PRN Reason: Hypoglycemia Duloxetine HCl (Cymbalta) 30 mg PO DAILY [facility] Last Admin: 11/01/18 08:06 Dose: 30 mg Ferrous Sulfate (Ferrous Sulfate) 325 mg PO QODAY@0800 [facility] Last Admin: 10/31/18 10:13 Dose: 325 mg Gabapentin (Neurontin) 600 mg PO TID [facility] Last Admin: 11/01/18 13:54 Dose: 600 mg Glucagon () 1 mg IM .X1 PRN PRN Reason: Hypoglycemia Hydralazine HCl (Apresoline) 25 mg PO TID [facility] Last Admin: 11/01/18 13:53 Dose: 25 mg Hydroxyzine Pamoate (Vistaril Pamoate Capsule) 25 mg PO TID PRN PRN PRN Reason: ITCHING/ANXIETY Last Admin: 10/30/18 10:36 Dose: 25 mg Insulin Human Lispro (Humalog Kwikpen (Bkc)) 0 unit SQ ACHS [facility]; Protocol Last Admin: 11/01/18 11:28 Dose: 2 u Isosorbide Mononitrate (Imdur) 30 mg PO BID [facility] Last Admin: 11/01/18 08:06 Dose: 30 mg Magnesium Hydroxide (Milk Of Magnesia) 30 ml PO DAILY PRN PRN Reason: Constipation Melatonin (Melatonin) 20 mg PO QHS PRN PRN Reason: SLEEP Morphine Sulfate () 2 mg IV Q4H PRN PRN PRN Reason: SEVERE PAIN (-07/30) Nitroglycerin (Nitrostat) 0.4 mg SUBLINGUAL Q5M PRN PRN Reason: CHEST PAIN Nystatin (Mycostatin Powder) 1 applic TOPICAL BID [facility]; Protocol Last Admin: 11/01/18 08:08 Dose: 1 applic Pantoprazole Sodium (Protonix) 40 mg PO BID [facility] Last Admin: 11/01/18 08:07 Dose: 40 mg Promethazine HCl (Phenergan) 6.25 mg IV Q6H PRN PRN PRN Reason: NAUSEA/VOMITING Last Admin: 11/01/18 11:04 Dose: 6.25 mg Sertraline HCl (Zoloft) 100 mg PO DAILY [facility] Last Admin: 11/01/18 08:07 Dose: 100 mg Sodium Chloride () 10 ml IV UD PRN PRN Reason: VAD FLUSH Last Admin: 11/01/18 11:04 Dose: 10 ml Tamsulosin HCl (Flomax) 0.4 mg PO DAILY@0830 [facility] Last Admin: 11/01/18 08:05 Dose: 0.4 mg [...] cholecystectomy, coronary bypass surgery - 2005 - [facility], herniorrhaphy, tonsillectomy, - - Cardiac stent placement 24 (according to patient), right carotid endarterectomy. - Social History Smoking Status: Never smoker - Family History Maternal History Items: No pertinent history Paternal History Items: Heart Disease - of an [place] at age 61 Sibling History Items: No [...] 11/01/2018 Status: F Source: [place] 11:26 AM [facility] REPOSITORY TYPE CODE TESTS RESULT OUT OF REFERENCE UNITS RANGE LAB L501.080 70-110 mg/dL High BEDSIDE GLU 257 Result Comment: MANAGEMENT OF PATIENT CARE PER NURSING PROTOCOL Performed By: #### L501.080 #### [facility] Point of Care [address] [place], [place] [address] BEDSIDE GLUCOSE Collected: 11/01/2018 Status: F Source: [place] 7:02 AM [facility] REPOSITORY TYPE CODE TESTS RESULT OUT OF REFERENCE UNITS RANGE LAB L501.080 70-110 mg/dL High BEDSIDE GLU 180 Result Comment: MANAGEMENT OF PATIENT CARE PER NURSING PROTOCOL Performed By: #### L501.080 #### [facility] Point of Care [address] [place] [address] HH, HEMOGLOBIN AND Collected: 11/01/2018 Status: F Source: [place] HEMATOCRIT 4:25 AM [facility] REPOSITORY TYPE CODE TESTS RESULT OUT OF RANGE REFERENCE UNITS LAB L100.1300 13.0-16.5 g/dl Low HGB 9.4 LAB L100.1400 40-54 % Low HCT 29.9 Performed By: #### L100.0600 #### [facility] [address] [facility] [place], [address] BASIC METABOLIC Collected: 11/01/2018 Status: F Source: [place] PROFILE (BMP) 4:25 AM [facility] REPOSITORY TYPE CODE TESTS RESULT OUT [...] GAP 10 Performed By: #### L500.2500 #### [facility] [address] [facility] [place], [address] BEDSIDE GLUCOSE Collected: 11/01/2018 Status: F Source: [place] 3:25 AM [facility] REPOSITORY TYPE CODE TESTS RESULT OUT OF REFERENCE UNITS RANGE LAB L501.080 70-110 mg/dL High BEDSIDE GLU 173 Result Comment: MANAGEMENT OF PATIENT CARE PER NURSING PROTOCOL Performed By: #### L501.080 #### [facility] Point of Care [address] [place] [address] BEDSIDE GLUCOSE Collected: 10/31/2018 Status: F Source: [place] 9:26 PM [facility] REPOSITORY TYPE CODE TESTS RESULT OUT OF REFERENCE UNITS RANGE LAB L501.080 70-110 mg/dL High BEDSIDE GLU 168 Result Comment: MANAGEMENT OF PATIENT CARE PER NURSING PROTOCOL Performed By: #### L501.080 #### [facility] Point of Care [address] [place] [address] BEDSIDE GLUCOSE Collected: 10/31/2018 Status: F Source: [place] 4:24 PM [facility] REPOSITORY TYPE CODE TESTS RESULT OUT OF REFERENCE UNITS RANGE LAB L501.080 70-110 mg/dL High BEDSIDE GLU 248 Result Comment: MANAGEMENT OF PATIENT CARE PER NURSING PROTOCOL Performed By: #### L501.080 #### [facility] Point of Care [address] [place] [address] BEDSIDE GLUCOSE Collected: 10/31/2018 Status: F Source: [place] 12:05 PM [facility] REPOSITORY TYPE CODE TESTS RESULT OUT OF REFERENCE UNITS RANGE LAB L501.080 70-110 mg/dL High BEDSIDE GLU 191 Result Comment: MANAGEMENT OF PATIENT CARE PER NURSING PROTOCOL Performed By: #### L501.080 #### [facility] Point of Care [address] [place] [address] BEDSIDE GLUCOSE Collected: 10/31/2018 Status: F Source: [place] 6:35 AM [facility] REPOSITORY TYPE CODE TESTS RESULT OUT OF REFERENCE UNITS RANGE LAB L501.080 70-110 mg/dL High BEDSIDE GLU 136 Result Comment: MANAGEMENT OF PATIENT CARE PER NURSING PROTOCOL Performed By: #### L501.080 #### [facility] Point of Care [address] [place] [address] BASIC METABOLIC Collected: 10/31/2018 Status: F Source: [place] PROFILE (BMP) 4:05 AM [facility] REPOSITORY TYPE CODE TESTS RESULT OUT [...] GAP 8 Performed By: #### L500.2500 #### [facility] [address] [place], [place], [address] BEDSIDE GLUCOSE Collected: 10/31/2018 Status: F Source: [place] 2:14 AM [facility] REPOSITORY TYPE CODE TESTS RESULT OUT OF REFERENCE UNITS RANGE LAB L501.080 70-110 mg/dL High BEDSIDE GLU 111 Result Comment: MANAGEMENT OF PATIENT CARE PER NURSING PROTOCOL Performed By: #### L501.080 #### [facility] Point of Care [address] [place] [address] BEDSIDE GLUCOSE Collected: 10/30/2018 Status: F Source: [place] 8:39 PM [facility] REPOSITORY TYPE CODE TESTS RESULT OUT OF REFERENCE UNITS RANGE LAB L501.080 70-110 mg/dL High BEDSIDE GLU 143 Result Comment: MANAGEMENT OF PATIENT CARE PER NURSING PROTOCOL Performed By: #### L501.080 #### [facility] Point of Care [address] [place] [address] BEDSIDE GLUCOSE Collected: 10/30/2018 Status: F Source: [place] 3:59 PM [facility] REPOSITORY TYPE CODE TESTS RESULT OUT OF REFERENCE UNITS RANGE LAB L501.080 70-110 mg/dL High BEDSIDE GLU 134 Result Comment: MANAGEMENT OF PATIENT CARE PER NURSING PROTOCOL Performed By: #### L501.080 #### [facility] Point of Care [address] [place] [address] BEDSIDE GLUCOSE Collected: 10/30/2018 Status: F Source: [place] 11:15 AM [facility] REPOSITORY TYPE CODE TESTS RESULT OUT OF RANGE REFERENCE UNITS LAB L501.080 70-110 mg/dL Normal BEDSIDE GLU 86 Result Comment: MANAGEMENT OF PATIENT CARE PER NURSING PROTOCOL Performed By: #### L501.080 #### [facility] Point of Care [address] [place] [address] 12 LEAD ELECTROCARDIOGRAM Observed: 10/30/2018 Status: F Source: [place] 10:50 AM [facility] REPOSITORY [facility] Cardiovascular Services [address] [place] [address] 12 Lead EKG 10/28/18 0050 MR#: [id number] Acct: [id number] Name: JADA COLUNGA Rep #: [id number] : 1955 63 From: Gumaro Ott MD Attending Dr: Nikia Ramirez Status: ADM IN Ordering Dr: Gumaro Kemp MD Date: 10/28/18 Location: [facility] Sex: M C Admitted: 10/28/18 Test Reason [...] Abnormal ECG Confirmed by NAMRATA KEY, GUMARO ([id number]), loan expeditor MATHIEU KOENIG ([id number]) on 10/30/2018 10:50:20 AM Referred By: HERMINIO Confirmed By:GUMARO OTT MD 10/30/18 1050 Date Gumaro Ott MD CC: Nikia Ramirez; OUT OF TOWN DOCTOR; Gumaro Kemp MD Signed BEDSIDE GLUCOSE Collected: 10/30/2018 Status: F Source: [place]DRA 6:45 AM [facility] REPOSITORY TYPE CODE TESTS RESULT OUT OF RANGE REFERENCE UNITS LAB L501.080 70-110 mg/dL Normal BEDSIDE GLU 96 Result Comment: MANAGEMENT OF PATIENT CARE PER NURSING PROTOCOL Performed By: #### L501.080 #### [facility] Point of Care [address] [place] [address] CBC-COMPLETE BLOOD CNT Collected: 10/30/2018 Status: F Source: [place] NO DIFF 4:45 AM [facility] REPOSITORY TYPE CODE TESTS RESULT OUT [...] MPV 9.6 Performed By: #### L100.0500 #### [facility] [address] [place], [place], [address] BASIC METABOLIC Collected: 10/30/2018 Status: F Source: [place] PROFILE (BMP) 4:45 AM [facility] REPOSITORY TYPE CODE TESTS RESULT OUT [...] GAP 12 Performed By: #### L500.2500 #### [facility] [address] [place], [place], [address] T4 FREE DIRECT Collected: 10/30/2018 Status: F Source: [place] 4:45 AM [facility] REPOSITORY Order Comment: Comments: ok to add on TYPE CODE TESTS RESULT OUT OF RANGE REFERENCE UNITS LAB L506.0400 0.76-1.46 ng/dL Normal T4 FREE 1.17 DIRECT Performed By: #### L506.0400 #### [facility] [address] [place], [address] BEDSIDE GLUCOSE Collected: 10/30/2018 Status: F Source: [place]DRA 3:01 AM [facility] REPOSITORY TYPE CODE TESTS RESULT OUT OF RANGE REFERENCE UNITS LAB L501.080 70-110 mg/dL Normal BEDSIDE GLU 101 Result Comment: MANAGEMENT OF PATIENT CARE PER NURSING PROTOCOL Performed By: #### L501.080 #### [facility] Point of Care [address] [place] [address] BEDSIDE GLUCOSE Collected: 10/30/2018 Status: F Source: [place]DRA 1:17 AM [facility] REPOSITORY TYPE CODE TESTS RESULT OUT OF REFERENCE UNITS RANGE LAB L501.080 70-110 mg/dL Low BEDSIDE GLU 65 Result Comment: MANAGEMENT OF PATIENT CARE PER NURSING PROTOCOL Performed By: #### L501.080 #### [facility] Point of Care [address] [place] [address] BEDSIDE GLUCOSE Collected: 10/30/2018 Status: F Source: [place]DRA 12:18 AM [facility] REPOSITORY TYPE CODE TESTS RESULT OUT OF REFERENCE UNITS RANGE LAB L501.080 70-110 mg/dL Low BEDSIDE GLU 67 Result Comment: MANAGEMENT OF PATIENT CARE PER NURSING PROTOCOL Performed By: #### L501.080 #### [facility] Point of Care [address] [place] [address] BEDSIDE GLUCOSE Collected: 10/29/2018 Status: F Source: [place]DRA 11:52 PM [facility] REPOSITORY TYPE CODE TESTS RESULT OUT OF REFERENCE UNITS RANGE LAB L501.080 70-110 mg/dL Low BEDSIDE GLU 59 Result Comment: MANAGEMENT OF PATIENT CARE PER NURSING PROTOCOL Performed By: #### L501.080 #### [facility] Point of Care [address] [place] [address] BEDSIDE GLUCOSE Collected: 10/29/2018 Status: F Source: [place]DRA 9:40 PM [facility] REPOSITORY TYPE CODE TESTS RESULT OUT OF REFERENCE UNITS RANGE LAB L501.080 70-110 mg/dL Low BEDSIDE GLU 61 Result Comment: MANAGEMENT OF PATIENT CARE PER NURSING PROTOCOL Performed By: #### L501.080 #### [facility] Point of Care [address] [place] [place] [address] BEDSIDE GLUCOSE Collected: 10/29/2018 Status: F Source: [place] 5:02 PM [facility] REPOSITORY TYPE CODE TESTS RESULT OUT OF RANGE REFERENCE UNITS LAB L501.080 70-110 mg/dL Normal BEDSIDE GLU 105 Result Comment: MANAGEMENT OF PATIENT CARE PER NURSING PROTOCOL Performed By: #### L501.080 #### [facility] Point of Care [address] [place] [address] 12 LEAD ELECTROCARDIOGRAM Observed: 10/29/2018 Status: F Source: [place] 3:23 PM [facility] REPOSITORY [facility] Cardiovascular Services [address] [facility] [place] [address] 12 Lead EKG 10/27/183 MR#: [id number] Acct: [id number] Name: JADA COLUNGA Prerna Rep #: [id number] : 1955 62 From: Gumaro Ott MD Attending Dr: Nikia Ramirez Status: ADM IN Ordering Dr: Justin Mohr MD Date: 10/27/18 Location: [facility] Sex: M C Admitted: 10/28/18 Test Reason [...] ECG Confirmed by NAMRATA KEY, GUMARO ([id number]), loan expeditor MATHIEU KOENIG ([id number]) on 10/29/2018 3:22:59 PM Referred By: Confirmed By:GUMARO OTT MD 10/29/18 1523 Date Gumaro Ott MD CC: Nikia Ramirez; Justin Mohr MD; OUT OF TOWN DOCTOR Signed CONSULTATION Observed: 10/29/2018 Status: F Source: [place] 2:08 PM [facility] REPOSITORY [facility] Medical Records Department [address] [place] [address] Consultation 10/28/18 0952 MR#: [id number] Acct: [id number] Name: JADA COLUNGA Rep #: [id number] : 1955 63 From: Gumaro Ott MD PCP: OUT OF TOWN DOCTOR Status: ADM IN Y Location: [place] [id number] Problem List (1) Chest pain Status: Acute [...] evaluated by Faisal Rg MD of the [facility] and currently has been following with cardiology in [place], [place] who is referred at this time [...] evaluation. The patient was recently evaluated at [facility] in cardiovascular consultation on 10/18/2018. At that time there was concerns about his multiple medical issues including acute renal insufficiency and the need for dialysis catheter placement and subsequent hemodialysis. He was transferred to [facility] for further evaluation and care. He states while at [facility] a dialysis catheter was placed, however, he states after his ulzojzzaotw-zyeojjpxj-wvte discontinued that his renal function improved and [...] lower extremities. He presented back to the [facility] for reevaluation. He was found to [...] recall undergoing any cardiovascular testing while at [facility]. He only recalls undergoing evaluation by nephrology and gastroenterology. [] Past Medical History Allergies/Adverse Reactions: Allergies metoclopramide HCl [From Reglan] Adverse Reaction (Verified 10/13/18 12:27) goofy, anxious, elevated BP ondansetron HCl [From Zofran] Adverse Reaction (Verified 10/13/18 12:27) goofy, anxious, elevated BP Tjqmslh-Myz-Acw Reductase Inhibitor Adverse Reaction (Verified 10/13/18 16:05) [...] cholecystectomy, coronary bypass surgery - 2005 - [facility], herniorrhaphy, tonsillectomy, - - Cardiac stent placement 24 (according to patient), right carotid endarterectomy. - *Family History Maternal History Items: No pertinent history Paternal History Items: Heart Disease - of an [place] at age 61 Sibling History Items: No [...] 81.3 H, Lymph % (Auto) 8.2 L, Juncos % (Auto) 5.9, Eos % (Auto) 4.2, [...] 76.3 H, Lymph % (Auto) 9.5 L, Jun[place] % (Auto) 7.9, Eos % (Auto) 5.5 [...] TR; mild diffuse aortic valve thickening; trivial MN; borderline enlarged aortic root; estimated RV systolic pressure of 37 mmHg; diastolic dysfunction; pacemaker/ICD leads in the right atrium and right ventricle Cardiac Cath: 03/24/2015: [facility]: Left main coronary normal; LAD occluded; LCx proximal stent patent with distal 80% stenosis; RCA with distal 70% stenosis; LV dysfunction with an LVEF of 20-25% PCI: 03/24/2015: [facility]: PTCA/EVERTON to the LCx system and [...] received 2 units of PRBCs while at [facility]. However, his H AND H remains low. [...] 4. Chronic systolic CHF States while at [facility] his diuretics were discontinued. There is concern [...] the office note prior to saving. 10/29/18 0350 <Electronically signed by Gumaro Ott MD> Date Gumaro Ott MD Cosigner Signature (if applicable): Date CC: OUT OF TOWN DOCTOR; Gumaro Ott MD Signed BEDSIDE GLUCOSE Collected: 10/29/2018 Status: F Source: [facility]DRA 11:00 AM [facility] REPOSITORY TYPE CODE TESTS RESULT OUT OF REFERENCE UNITS RANGE LAB L501.080 70-110 mg/dL High BEDSIDE GLU 172 Result Comment: MANAGEMENT OF PATIENT CARE PER NURSING PROTOCOL Performed By: #### L501.080 #### [facility] Point of Care [address] [place], [place] [address] BEDSIDE GLUCOSE Collected: 10/29/2018 Status: F Source: [place]DRA 6:47 AM [facility] REPOSITORY TYPE CODE TESTS RESULT OUT OF REFERENCE UNITS RANGE LAB L501.080 70-110 mg/dL High BEDSIDE GLU 130 Result Comment: MANAGEMENT OF PATIENT CARE PER NURSING PROTOCOL Performed By: #### L501.080 #### [facility] Point of Care [address] [place], [place] [address] CBC-COMPLETE BLOOD CNT Collected: 10/29/2018 Status: F Source: [place]DR[place] NO DIFF 4:44 AM [facility] REPOSITORY TYPE CODE TESTS RESULT OUT [...] MPV 9.6 Performed By: #### L100.0500 #### [facility] [address] [place], [address] BASIC METABOLIC Collected: 10/29/2018 Status: F Source: [place] PROFILE (BMP) 4:44 AM [facility] REPOSITORY TYPE CODE TESTS RESULT OUT [...] GAP 7 Performed By: #### L500.2500 #### [facility] [address] [place], [address] IRON+IRON BINDING Collected: 10/29/2018 Status: F Source: [place] CAPACITY 4:44 AM [facility] REPOSITORY TYPE CODE TESTS RESULT OUT OF RANGE REFERENCE UNITS LAB L503.6075 250-450 ug/dL TIBC Normal 270 LAB L503.6150 65-175 ug/dL Low IRON 51 LAB L503.6250 15.0-55.0 % IRON Normal SATURATION 18.9 Performed By: #### L503.6030, L503.6550 #### [facility] [address] [place], [address] FERRITIN Collected: 10/29/2018 Status: F Source: [place] 4:44 AM [facility] REPOSITORY TYPE CODE TESTS RESULT OUT OF REFERENCE UNITS RANGE LAB L503.6550 26-388 ng/mL High FERRITIN 402 Performed By: #### L503.6030, L503.6550 #### [facility] [address] [place], [address] VITAMIN B12 Collected: 10/29/2018 Status: F Source: [place] 4:44 AM [facility] REPOSITORY TYPE CODE TESTS RESULT OUT OF RANGE REFERENCE UNITS LAB L503.0105 211-911 pg/mL Normal Vitamin B12 717 Performed By: #### L503.0105 #### [facility] [address] [place], [address] FOLATES, RBC Collected: 10/29/2018 Status: F Source: [place] 4:44 AM [facility] REPOSITORY TYPE CODE TESTS RESULT OUT OF RANGE REFERENCE UNITS LAB L3100.1735 Not Estab. ng/mL Normal 378.3 FOL,HEMOLYSA TE LAB L3100.1740 37.5-51.0 % Low 26.3 FOLR,HEMATOC RIT LAB L3100.1745 >498 ng/mL Normal FOLATE, 1438 RBC Result Comment: Performed at: - [facility] [address] [id number] Set Key Driver: Lg Kingsley PhD, Phone: [phone] Performed By: #### L3100.1721 #### [facility] (refer to report for specific site) refer to report for address and phone number BEDSIDE GLUCOSE Collected: 2018 Status: F Source: [facility] TYPE CODE TESTS RESULT OUT OF REFERENCE UNITS RANGE LAB L501.080 70-110 mg/dL High BEDSIDE GLU 191 Result Comment: MANAGEMENT OF PATIENT CARE PER NURSING PROTOCOL Performed By: #### L501.080 #### [facility] Point of Care [address] [place] [address] BEDSIDE GLUCOSE Collected: 2018 Status: F Source: [place] 4:00 PM [facility] REPOSITORY TYPE CODE TESTS RESULT OUT OF REFERENCE UNITS RANGE LAB L501.080 70-110 mg/dL High BEDSIDE GLU 195 Result Comment: MANAGEMENT OF PATIENT CARE PER NURSING PROTOCOL Performed By: #### L501.080 #### [facility] Point of Care [address] [place] [address] ABDOMEN LIMITED Observed: 2018 Status: F Source: [place] 2:01 PM [facility] REPOSITORY [facility] Imaging Services [address] [place] [address] Abdomen Limited MR#: [id number] Acct: [id number] Name: JADA COLUNGA Rep #: [id number] : 1955 M 63 From: Karishma Munoz MD PCP: OUT OF TOWN DOCTOR Status: ADM IN Study: Abdomen Limited Date of Exam: 10/28/18 Exam# [id number] Ordering Dr: Nikia Ramirez MD STUDY: ABDOMINAL [...] CC: Nikia Ramirez; OUT OF TOWN DOCTOR [employer] Carpenter: Signed BEDSIDE GLUCOSE Collected: 2018 Status: F Source: [place] 11:36 AM [facility] REPOSITORY TYPE CODE TESTS RESULT OUT OF REFERENCE UNITS RANGE LAB L501.080 70-110 mg/dL High BEDSIDE GLU 227 Result Comment: MANAGEMENT OF PATIENT CARE PER NURSING PROTOCOL Performed By: #### L501.080 #### [facility] Point of Care [address] [facility] [place] [address] TYPE AND SCREEN Collected: 2018 Status: F Source: [place] 10:55 AM [facility] REPOSITORY Order Comment: CMV NEG? N [...] NEGATIVE Screen Performed By: #### B101.7450 #### [facility] [address] [place], [place], [address] RC Collected: 2018 Status: F Source: [place] 10:55 AM [facility] REPOSITORY TYPE CODE TESTS RESULT OUT OF REFERENCE UNITS RANGE LAB U100.0000 [id number] TRANSFUSED PRODUCT: T AND S with Crossmatch, Red Cells COUNT: 1 Performed By: #### U100.0000 #### [facility] - refer to report for specific site RC Collected: 2018 Status: F Source: [place] 10:55 AM [facility] REPOSITORY TYPE CODE TESTS RESULT OUT OF REFERENCE UNITS RANGE LAB U100.0000 [id number] TRANSFUSED PRODUCT: T AND S with Crossmatch, Red Cells COUNT: 1 Performed By: #### U100.0000 #### [facility] - refer to report for specific site BEDSIDE GLUCOSE Collected: 2018 Status: F Source: [place] 9:24 AM [facility] REPOSITORY TYPE CODE TESTS RESULT OUT OF REFERENCE UNITS RANGE LAB L501.080 70-110 mg/dL High BEDSIDE GLU 139 Result Comment: MANAGEMENT OF PATIENT CARE PER NURSING PROTOCOL Performed By: #### L501.080 #### [facility] Point of Care [address] [place], [place] [address] BEDSIDE GLUCOSE Collected: 2018 Status: F Source: [place] 5:55 AM [facility] REPOSITORY TYPE CODE TESTS RESULT OUT OF REFERENCE UNITS RANGE LAB L501.080 70-110 mg/dL High BEDSIDE GLU 154 Result Comment: MANAGEMENT OF PATIENT CARE PER NURSING PROTOCOL Performed By: #### L501.080 #### [facility] Point of Care [address] [place] [place] [address] TROPONIN-I Collected: 2018 Status: F Source: [place] 4:30 AM [facility] REPOSITORY Order Comment: 'TROP' Serial specimen #1, #2 or #3: 3 TYPE CODE TESTS RESULT OUT OF RANGE REFERENCE UNITS LAB L501.4010 <0.045 ng/mL High 0.048 TROPONIN-I Result Comment: TROPONIN-I EXPECTED VALUES <0.045 Negative 0.045 - 0.590 Consistent with Cardiac Damage > OR = 0.600 Critical Value Not every elevated troponin is indicative of IL. These values should be used with clinical judgement in examining the patient's clinical picture for diagnosis. To establish a diagnosis of IL versus myocardial injury, there must be a demonstrated rise and/or fall in the troponin values, in addition to ischemic symptoms, EKG changes, new regional wall motion abnormality, and/or angiographical evidence. PLEASE NOTE: REFERENCE RANGES EDITED 18 Performed By: #### L501.4010 #### [facility] [address] [facility] [place] [place], [address] PROTHROMBIN TIME W/INR Collected: 2018 Status: F Source: [place] 4:30 AM [facility] REPOSITORY TYPE CODE TESTS RESULT OUT OF RANGE REFERENCE UNITS LAB L300.4150 11.7-14.9 SECONDS High PROTIME 16.5 LAB L300.4200 Normal INR 1.3 Performed By: #### L300.3900 #### [facility] [address] [facility] [place], [address] BNP,B-TYPE NATRIURETIC Collected: 2018 Status: F Source: [place] PEPTIDE 4:30 AM [facility] REPOSITORY TYPE CODE TESTS RESULT OUT OF RANGE REFERENCE UNITS LAB L503.6620 0-100 pg/mL High B-TYPE 1640.2 FRED PEP Performed By: #### L503.6620 #### [facility] [address] [facility] [place] [place], [address] BASIC METABOLIC Collected: 2018 Status: F Source: [place] PROFILE (BMP) 4:30 AM [facility] REPOSITORY TYPE CODE TESTS RESULT OUT [...] #### L500.2500, L500.3400, L500.4050, L500.4100, L501.9520 #### [facility] [address] [place], [place], [address] LIVER PROFILE Collected: 2018 Status: F Source: [place] 4:30 AM [facility] REPOSITORY TYPE CODE TESTS RESULT OUT [...] #### L500.2500, L500.3400, L500.4050, L500.4100, L501.9520 #### [facility] [address] [facility] [place], [place], [address] COMPREHENSIVE METABOLIC Collected: 2018 Status: F Source: [place] PROFIL 4:30 AM [facility] REPOSITORY TYPE CODE TESTS RESULT OUT OF RANGE REFERENCE UNITS LAB L501.2000 0.9-2.4 RATIO Low A/G 0.7 Performed By: #### L500.2500, L500.3400, L500.4050, L500.4100, L501.9520 #### [facility] [address] [place], [place], [address] LIPID PROFILE Collected: 2018 Status: F Source: [place] 4:30 AM [facility] REPOSITORY TYPE CODE TESTS RESULT OUT [...] #### L500.2500, L500.3400, L500.4050, L500.4100, L501.9520 #### [facility] [address] [place], [place], [address] THYROID STIM HORMONE Collected: 2018 Status: F Source: [place] (TSH) 4:30 AM [facility] REPOSITORY TYPE CODE TESTS RESULT OUT OF RANGE REFERENCE UNITS LAB L501.9520 0.358-3.74 uIU/mL High TSH 4.74 Performed By: #### L500.2500, L500.3400, L500.4050, L500.4100, L501.9520 #### [facility] [address] [place], [place], [address] CBC W/DIFF, AUTOMATED Collected: 2018 Status: F Source: [place] 4:25 AM [facility] REPOSITORY TYPE CODE TESTS RESULT OUT [...] Lymph 1.13 Performed By: #### L100.0100 #### [facility] [address] [place], [place], [address] PARTIAL THROMBOPLAST Collected: 2018 Status: F Source: [place] TIME 4:25 AM [facility] REPOSITORY TYPE CODE TESTS RESULT OUT OF RANGE REFERENCE UNITS LAB L300.4310 24.1-36.2 Seconds Normal PTT 34.0 Performed By: #### L300.4310 #### [facility] [address] [place], [address] EMERGENCY DEPARTMENT Observed: 2018 Status: F Source: [place] SUMMARY 1:26 AM [facility] REPOSITORY [facility] Medical Records Department [address] [place] [address] Emergency Department Summary 10/27/18 2319 MR#: [id number] Acct: [id number] Name: JADA COLUNGA Rep #: [id number] : 1955 62 From: Justin Mohr MD PCP: OUT OF TOWN DOCTOR Status: [...] from his antibiotics and was transferred to [facility]. He had a temporary dialysis catheter placed, [...] 2. CHF This note was generated with [employer] dictation software. It may contain incorrect words, spelling, and punctuation that were not noted in review of the chart prior to signing ED Disposition - Plan for ED Patient: Chief Complaint: Chest Pain Referrals: [facility] Doctor,Out of [Primary Care Provider] - What to do if you have Problems For any increased pain, shortness of breath, bleeding, nausea or vomiting, chest pain, or any unexpected problems, contact your Primary Care Provider. Call [facility] ([phone]) or report to the closest Emergency Room. Call 911 if necessary. 10/28/18 0126 <Electronically signed by Justin Mohr MD> Date Justin Mohr MD Cosigner Signature (If Indicated): Date CC: OUT OF TOWN DOCTOR HISTORY AND PHYSICAL Observed: 2018 Status: F Source: [place] EXAM 12:07 AM [facility] REPOSITORY [facility] Medical Records Department [address] [place] [address] History and Physical 10/27/18 3965 MR#: [id number] Acct: [id number] Name: JADA COLUNGA Rep #: [id number] : 1955 62 From: Gumaro Kemp MD PCP: OUT OF TOWN DOCTOR Status: ADM CECILE Y Location: [place] [address] Problem List (1) S/P PTCA (percutaneous transluminal [...] patient with an extensive cardiac history including IL, CHF, Cardiomyopathy, 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 He was recently at [facility] following treatment for ATN secondary [...] (Verified 10/13/18 12:27) goofy, anxious, elevated BP Nvekmhe-Igw-Skt Reductase Inhibitor Adverse Reaction (Verified 10/13/18 16:05) rhabdomyolosis Home Medications: Ambulatory Orders Medication Instructions Recorded Carvedilol [Coreg (Beta Bridgett)] 25 mg PO BID 08/11/15 Isosorbide Mononitrate [Imdur] 30 mg PO BID 03/05/16 Surgical History: appendectomy, cataract, cholecystectomy, coronary bypass surgery - 2005 - [facility], herniorrhaphy, tonsillectomy, - - Cardiac stent placement 24 (according to patient), right carotid endarterectomy. Smoking Status: Never smoker - *Family History Maternal History Items: No pertinent history Paternal History Items: Heart Disease - of an IL at age 61 Sibling History Items: No [...] prophylaxis Code Visit Inpatient E AND M: 88231 Init Hosp L3 10/28/18 0007 <Electronically signed by Gumaro Kemp MD> Date Gumaro Kemp MD Cosigner Signature: Date (if applicable) CC: OUT OF TOWN DOCTOR; Gumaro Kemp MD Signed CBC W/DIFF, AUTOMATED Collected: 10/27/2018 Status: F Source: [place] 10:34 PM [facility] REPOSITORY TYPE CODE TESTS RESULT OUT [...] Lymph 1.08 Performed By: #### L100.0100 #### [facility] [address] [place], [place], [address] BASIC METABOLIC Collected: 10/27/2018 Status: F Source: [place] PROFILE (BMP) 10:34 PM [facility] REPOSITORY TYPE CODE TESTS RESULT OUT [...] 9 Performed By: #### L500.2500, L501.4010 #### [facility] [address] [place], [address] TROPONIN-I Collected: 10/27/2018 Status: F Source: [place] 10:34 PM [facility] REPOSITORY TYPE CODE TESTS RESULT OUT OF RANGE REFERENCE UNITS LAB L501.4010 <0.045 ng/mL High 0.052 TROPONIN-I Result Comment: TROPONIN-I EXPECTED VALUES <0.045 Negative 0.045 - 0.590 Consistent with Cardiac Damage > OR = 0.600 Critical Value Not every elevated troponin is indicative of IL. These values should be used with clinical judgement in examining the patient's clinical picture for diagnosis. To establish a diagnosis of IL versus myocardial injury, there must be a demonstrated rise and/or fall in the troponin values, in addition to ischemic symptoms, EKG changes, new regional wall motion abnormality, and/or angiographical evidence. PLEASE NOTE: REFERENCE RANGES EDITED 18 Performed By: #### L500.2500, L501.4010 #### [facility] [address] [place], [address] BNP,B-TYPE NATRIURETIC Collected: 10/27/2018 Status: F Source: [place] PEPTIDE 10:34 PM [facility] REPOSITORY TYPE CODE TESTS RESULT OUT OF RANGE REFERENCE UNITS LAB L503.6620 0-100 pg/mL High B-TYPE 1581.3 FRED PEP Performed By: #### L503.6620 #### [facility] [address] [place], [address] CHEST 1 VIEW Observed: 10/27/2018 Status: F Source: [place] (PORTABLE) 10:29 PM [facility] REPOSITORY [facility] Imaging Services [address] [place] [address] Chest 1 View (Portable) MR#: [id number] Acct: [id number] Name: JADA COLUNGA Rep #: [id number] : 1955 M 62 From: Elham Wesley MD PCP: OUT OF TOWN DOCTOR Status: REG ER Study: Chest 1 View (Portable) Date of Exam: 10/27/18 Exam# [id number] Ordering Dr: Justin Mohr MD STUDY: X-RAY CHEST REASON FOR EXAM: [...] Tel , Service support , CC: Justin Mohr MD; OUT OF [facility] DOCTOR Interior Systems Carpenter: Signed CBC Collected: 10/24/2018 Status: F Source: [facility] 6:23 AM [facility] EMERGENCY DEPARTMENT REPOSITORY TYPE CODE TESTS RESULT OUT OF [...] #### CBC, ADIFF, ANEU, BMP, GFR #### [place] [address] .AUTO DIFF Collected: 10/24/2018 Status: F Source: [facility] 6:23 AM [facility] EMERGENCY DEPARTMENT REPOSITORY TYPE CODE TESTS RESULT OUT OF [...] #### CBC, ADIFF, ANEU, BMP, GFR #### [place] [address] .NEUABS Collected: 10/24/2018 Status: F Source: [facility] 6:23 AM [facility] EMERGENCY DEPARTMENT REPOSITORY TYPE CODE TESTS RESULT OUT OF REFERENCE UNITS RANGE LAB ANEU(LOINC) 2.25-8.10 10 3/mcL Neutrophil, 6.00 Absolute Performed By: #### CBC, ADIFF, ANEU, BMP, GFR #### [place] [address] BMP Collected: 10/24/2018 Status: F Source: [facility] 6:23 AM [facility] EMERGENCY DEPARTMENT REPOSITORY TYPE CODE TESTS RESULT OUT OF [...] Low Calcium Lvl 8.0 Performed By: #### CBC, ADIFF, ANEU, BMP, GFR #### [place] [address] .GFR Collected: 10/24/2018 Status: F Source: [facility] 6:23 AM [facility] EMERGENCY DEPARTMENT REPOSITORY TYPE CODE TESTS RESULT OUT OF REFERENCE UNITS RANGE LAB GFRAA(LOINC ml/min/1.73 ) sqm GFR 54 Sudanese Result Comment: GFR Population mean for , [...] #### CBC, ADIFF, ANEU, BMP, GFR #### [place] [address] FINAL SURGICAL Observed: 10/23/2018 Status: F Source: [facility] PATHOLOGY REPORT 10:45 AM [facility] EMERGENCY DEPARTMENT REPOSITORY . Pathology Reports Accession: Collected Date/Time: Received Date/Time: Pathologist: [id number] 10/23/2018 10:45 EST 10/23/2018 10:45 EST DO JAMES WINTERS Final Surgical Pathology Report DIAGNOSIS: GASTRIC -- [...] Electronically Signed by Pathology Report verified by [facility] Electronically signed by JAMES WINTERS DO Sign out Date: 10/24/2018 12:19 Performing Lab: [facility], [address] [place] [address] Performed By: #### SPFR #### [place] [address] FERR Collected: 10/23/2018 Status: F Source: [facility] 8:16 AM [facility] EMERGENCY DEPARTMENT REPOSITORY TYPE CODE TESTS RESULT OUT OF REFERENCE UNITS RANGE LAB FERR(LOINC) 26-388 ng/mL Ferritin 69 Performed By: #### FERR #### [place] [address] CBC Collected: 10/23/2018 Status: F Source: [facility] 5:14 AM [facility] EMERGENCY DEPARTMENT REPOSITORY TYPE CODE TESTS RESULT OUT OF [...] #### CBC, ADIFF, ANEU, BMP, GFR #### [place] [address] .AUTO DIFF Collected: 10/23/2018 Status: F Source: [facility] 5:14 AM [facility] EMERGENCY DEPARTMENT REPOSITORY TYPE CODE TESTS RESULT OUT OF [...] #### CBC, ADIFF, ANEU, BMP, GFR #### [place] [address] .NEUABS Collected: 10/23/2018 Status: F Source: [facility] 5:14 AM [facility] EMERGENCY DEPARTMENT REPOSITORY TYPE CODE TESTS RESULT OUT OF REFERENCE UNITS RANGE LAB ANEU(LOINC) 2.25-8.10 10 3/mcL Neutrophil, 7.30 Absolute Performed By: #### CBC, ADIFF, ANEU, BMP, GFR #### [place] [address] BMP Collected: 10/23/2018 Status: F Source: [facility] 5:14 AM [facility] EMERGENCY DEPARTMENT REPOSITORY TYPE CODE TESTS RESULT OUT OF [...] #### CBC, ADIFF, ANEU, BMP, GFR #### [address] [address] .GFR Collected: 10/23/2018 Status: F Source: [facility] 5:14 AM [facility] REPOSITORY TYPE CODE TESTS RESULT OUT OF REFERENCE UNITS RANGE LAB GFRAA(LOINC ml/min/1.73 ) sqm GFR 48 Sudanese Result Comment: GFR Population mean for , [...] #### CBC, ADIFF, ANEU, BMP, GFR #### [address] [address] 12 LEAD ELECTROCARDIOGRAM Observed: 10/22/2018 Status: F Source: [place] 3:10 PM [facility] REPOSITORY [facility] Cardiovascular Services [address] [place] [address] 12 Lead EKG 10/18/18 0014 MR#: [id number] Acct: [id number] Name: JADA COLUNGA Rep #: [id number] : 1955 62 From: Gumaro Ott MD Attending Dr: Octavio Alvarez DO Status: DIS IN Ordering Dr: Mason Paredes MD Date: 10/17/18 Location: [facility] Sex: M C Admitted: 10/13/18 Test Reason [...] Abnormal ECG Confirmed by NAMRATA KEY, GUMARO ([id number]), loan expeditor MATHIEU KOENIG ([id number]) on 10/22/2018 3:09:38 PM Referred By: NIHARIKA Confirmed By:GUMARO OTT MD 10/22/18 1509 Date Gumaro Ott MD CC: Octavio Alvarez DO; Mason Paredes MD; OUT OF TOWN DOCTOR Signed HGB Collected: 10/22/2018 Status: F Source: [facility] 2:38 PM [facility] EMERGENCY DEPARTMENT REPOSITORY TYPE CODE TESTS RESULT OUT OF RANGE REFERENCE UNITS LAB HGB(LOINC) 13.0-17.5 G/dL Low Hgb 8.4 Performed By: #### HGB, FES #### [place] [address] FES Collected: 10/22/2018 Status: F Source: [facility] 2:38 PM [facility] EMERGENCY DEPARTMENT REPOSITORY TYPE CODE TESTS RESULT OUT OF RANGE REFERENCE UNITS LAB FE(LOINC) 49-181 mcg/dL Low Iron 34 LAB IBC(LOINC) 250-500 mcg/dL TIBC 304 LAB FESAT(LOINC % ) Iron Sat 11 Performed By: #### HGB, FES #### [place] [address] RFP Collected: 10/22/2018 Status: F Source: [facility] 5:32 AM [facility] EMERGENCY DEPARTMENT REPOSITORY TYPE CODE TESTS RESULT OUT OF [...] #### CBC, ADIFF, ANEU, RFP, GFR #### [place] [address] .GFR Collected: 10/22/2018 Status: F Source: [facility] 5:32 AM [facility] EMERGENCY DEPARTMENT REPOSITORY TYPE CODE TESTS RESULT OUT OF REFERENCE UNITS RANGE LAB GFRAA(LOINC ml/min/1.73 ) sqm GFR 38 Sudanese Result Comment: GFR Population mean for , [...] #### CBC, ADIFF, ANEU, RFP, GFR #### [place] [address] CBC Collected: 10/22/2018 Status: F Source: [facility] 4:47 AM [facility] EMERGENCY DEPARTMENT REPOSITORY TYPE CODE TESTS RESULT OUT OF [...] #### CBC, ADIFF, ANEU, RFP, GFR #### [place] [address] .AUTO DIFF Collected: 10/22/2018 Status: F Source: [facility] 4:47 AM [facility] EMERGENCY DEPARTMENT REPOSITORY TYPE CODE TESTS RESULT OUT OF [...] #### CBC, ADIFF, ANEU, RFP, GFR #### [place] [address] .NEUABS Collected: 10/22/2018 Status: F Source: [facility] 4:47 AM [facility] EMERGENCY DEPARTMENT REPOSITORY TYPE CODE TESTS RESULT OUT OF REFERENCE UNITS RANGE LAB ANEU(LOINC) 2.25-8.10 10 3/mcL Neutrophil, 8.00 Absolute Performed By: #### CBC, ADIFF, ANEU, RFP, GFR #### [place] [address] HH Collected: 10/21/2018 Status: F Source: [facility] 11:59 PM [facility] EMERGENCY DEPARTMENT REPOSITORY TYPE CODE TESTS RESULT OUT OF RANGE REFERENCE UNITS LAB HGB(LOINC) 13.0-17.5 G/dL Low Hgb 8.7 LAB HCT(LOINC) 40.0-52.0 % Low Hct 26.5 Performed By: #### HH #### [place] [address] CT ABDOMEN/PELVIS W/O Observed: 10/21/2018 Status: F Source: [facility] 8:00 PM [facility] REPOSITORY ORIGINAL CT ABDOMEN/PELVIS W/O CONTRAST, 10/21/2018 [...] 8:38:25 PM Collected: 10/21/2018 Status: F Source: [facility] 5:13 PM [facility] EMERGENCY DEPARTMENT REPOSITORY TYPE CODE TESTS RESULT OUT OF RANGE REFERENCE UNITS LAB HGB(LOINC) 13.0-17.5 G/dL Low Hgb 9.2 LAB HCT(LOINC) 40.0-52.0 % Low Hct 27.7 Performed By: #### HH #### [place] [address] OCC (LAB) Collected: 10/21/2018 Status: F Source: [facility] 5:13 PM [facility] EMERGENCY DEPARTMENT REPOSITORY TYPE CODE TESTS RESULT OUT OF RANGE REFERENCE UNITS LAB OCC(LOINC) Negative Unknown Occult Positive Blood Fecal Result Comment: This test utilizes the guaiac fecal blood method, which detects peroxidase activity (heme) indicating bleeding from stomach, small intestine, or large intestine. If bleeding from either upper or lower gastrointestinal tract is a clinical consideration, the [facility] recommends the use of both the guaiac fecal blood test and the Immunochemical fecal blood test. Performed By: #### OCC #### [place] [address] UA Collected: 10/21/2018 Status: F Source: [facility] 1:53 PM [facility] EMERGENCY DEPARTMENT REPOSITORY TYPE CODE TESTS RESULT OUT OF [...] Est Negative Performed By: #### UA #### [place] [address] RBC (PRODUCT) Collected: 10/21/2018 Status: F Source: [facility] 9:37 AM [facility] EMERGENCY DEPARTMENT REPOSITORY TYPE CODE TESTS RESULT OUT OF REFERENCE UNITS RANGE LAB RBCPR(LOINC ) RBC Product RBC Ready Ready for Pickup Performed By: #### RBCP #### [place] [address] HH Collected: 10/21/2018 Status: F Source: [facility] 8:42 AM [facility] EMERGENCY DEPARTMENT REPOSITORY Order Comment: Please recollect, specimen QNS. TYPE CODE TESTS RESULT OUT OF RANGE REFERENCE UNITS LAB HGB(LOINC) 13.0-17.5 G/dL Abnormal Alert Hgb 6.8 Result Comment: Microtainer specimen received. LAB HCT(LOINC) 40.0-52.0 % Low Hct 20.5 Performed By: #### ABORH, ANTIS, HH #### [address] [address] TABO Collected: 10/21/2018 Status: F Source: [facility] 7:58 AM [facility] EMERGENCY DEPARTMENT REPOSITORY TYPE CODE TESTS RESULT OUT OF RANGE REFERENCE UNITS LAB ABORH(LOINC ) Unknown ABO/Rh A POS Interp Performed By: #### ERNESTINA, ANTIS, HH #### [place] [address] TABS Collected: 10/21/2018 Status: F Source: [facility] 7:58 AM [facility] EMERGENCY DEPARTMENT REPOSITORY TYPE CODE TESTS RESULT OUT OF REFERENCE UNITS RANGE LAB ANST(LOINC ) Antibody Negative ABSC Screen Tango Performed By: #### ABORKaren, ANTIS, #### [place] [address] BMP Collected: 10/21/2018 Status: F Source: [facility] 5:23 AM [facility] EMERGENCY DEPARTMENT REPOSITORY TYPE CODE TESTS RESULT OUT OF [...] #### BMP, GFR, CBC, DIFF, MORPH #### [address] [address] .GFR Collected: 10/21/2018 Status: F Source: [facility] 5:23 AM [facility] EMERGENCY DEPARTMENT REPOSITORY TYPE CODE TESTS RESULT OUT OF REFERENCE UNITS RANGE LAB GFRAA(LOINC ml/min/1.73 ) sqm GFR 24 Sudanese Result Comment: GFR Population mean for , [...] #### BMP, GFR, CBC, DIFF, MORPH #### [address] [address] CBC Collected: 10/21/2018 Status: F Source: [facility] 5:23 AM [facility] EM[facility]GENCY DEPARTMENT REPOSITORY TYPE CODE TESTS RESULT OUT OF [...] #### BMP, GFR, CBC, DIFF, MORPH #### [place] [address] .MANUAL DIFF Collected: 10/21/2018 Status: F Source: [facility] 5:23 AM [facility] EM[facility]PART[facility] REPOSITORY TYPE CODE TESTS RESULT OUT OF [...] Basophil, Abs 0.28 Manual Performed By: #### BMP, GFR, CBC, DIFF, MORPH #### [facility] [address] [place] [address] .MORPH Collected: 10/21/2018 Status: F Source: [facility] 5:23 AM [facility] EM[facility]GENC[facility]PARTMENT REPOSITORY TYPE CODE TESTS RESULT OUT OF REFERENCE UNITS RANGE LAB PLTE(LOINC ) Platelet Estimate Normal LAB ANIS(LOINC ) Anisocytosis Slight LAB POLC(LOINC ) Polychrom Slight Performed By: #### BMP, GFR, CBC, DIFF, MORPH #### [facility] [address] [place], [place] [address] IR TEMPORARY DIALYSIS Observed: 10/20/2018 Status: F Source: [facility] [employer] CATHETER 11:30 AM [facility] EMERGENC[facility]PARTMENT REPOSITORY ORIGINAL IR TEMPORARY DIALYSIS CATHETER INSERTION [...] with sequentially larger vessel dilators. A 14 Prydeinig 20 cm SLX Dual Lumen catheter was [...] procedure was performed by Kristel Reeder, Physician Junior Brand Manager. I concur with the contents of the report. Interpreted By: Shavonne Myers MD Preliminary Report By: Kristel Reeder PA Electronically Signed By: Shavonne Myers MD Dictated Date: 10/20/2018 1:51:09 PM Prelim Date: 10/20/2018 1:55:19 PM Sign Date: 10/20/2018 2:11:34 PM CONSULTATION Observed: 10/20/2018 Status: F Source: [facility] 9:05 AM [facility] REPOSITORY [facility] Medical Records Department [address] [place] [address] Consultation 10/19/18 1059 MR#: [id number] Acct: [id number] Name: JADA COLUNGA Rep #: [id number] : 1955 62 From: Sudheer Ken MD PCP: OUT OF TOWN DOCTOR Status: DIS IN Y [id number] Problem List (1) S/P PTCA (percutaneous transluminal [...] medical history listed below, who presented to [facility] on 10/13/2018 secondary to increased pain of [...] (Verified 10/13/18 12:27) goofy, anxious, elevated BP Ljnxtct-Nxe-Xkx Reductase Inhibitor Adverse Reaction (Verified 10/13/18 16:05) rhabdomyolosis Home Medications: Ambulatory Orders Medication Instructions Recorded Clopidogrel Bisulfate [Plavix] 75 mg PO DAILY 02/08/15 Surgical History: appendectomy, cataract, cholecystectomy, coronary bypass surgery - 2004 - [facility], herniorrhaphy, tonsillectomy, - - Cardiac stent placement 24 (according to patient), right carotid endarterectomy. Lives: With Family Smoking Status: Never smoker Tobacco Use: Non-smoker Alcohol: None - *Family History Maternal History Items: No pertinent history Paternal History Items: Heart Disease - of an [place] at age 61 Sibling History Items: No [...] the kidneys and urinary bladder. Electronically Signed: Eirc Pandey DO at 22:01 EST Tel [phone], Service support , Assessment/Plan All Active Problems [...] following. Code Visit Inpatient E AND M: [id number] Init Hosp L3 10/20/18 0905 <Electronically signed by Sudheer Ken MD> Date Sudheer Ken MD Cosigner Signature (if applicable): Date CC: Sudheer Ken MD; Jeremie Blankenship DPM; OUT OF TOWN DOCTOR; Gumaro Ott MD; Raúl Mendes MD; Aaron Cool MD Signed PRO Collected: 10/20/2018 Status: F Source: [facility] 9:01 AM [facility] EM[facility]PART[facility] REPOSITORY Order Comment: for temp dialysis cath TYPE CODE TESTS RESULT OUT OF REFERENCE UNITS RANGE LAB PT(LOINC) 9.0-14.6 seconds Protime 14.4 Result Comment: Effective 05/04/08, Protime results may be affected by some antibiotics (i.e. Ciprofloxacin, Azithromycin, Bactrim) which may potentiate the action of oral anticoagulants, with further increase in Protime/INR. LAB INR(LOINC) ratio PT International Ratio 1.2 Result Comment: [employer] (CHEST, 1992, 102:312S-25S) recommended therapeutic range for oral anticoagulant therapy is: LOW RISK: Prophylaxis of venous thrombosis INR: 2.0-3.0 Treatment of pulmonary embolism 2.0-3.0 Prevention of systemic embolism 2.0-3.0 HIGH RISK: Mechanical prosthetic valves 2.5-3.5 Performed By: #### PRO #### [place] [address] CBC Collected: 10/20/2018 Status: F Source: [facility] 5:51 AM [facility] EM[facility] REPOSITORY TYPE CODE TESTS RESULT OUT OF [...] #### CBC, ADIFF, ANEU, BMP, GFR #### [place] [address] .AUTO DIFF Collected: 10/20/2018 Status: F Source: [facility] 5:51 AM [facility] EMERGENC[facility]PART[facility] REPOSITORY TYPE CODE TESTS RESULT OUT OF [...] #### CBC, ADIFF, ANEU, BMP, GFR #### [place] [address] .NEUABS Collected: 10/20/2018 Status: F Source: [facility] 5:51 AM [facility] EMERGENCY DEPARTMENT REPOSITORY TYPE CODE TESTS RESULT OUT OF REFERENCE UNITS RANGE LAB ANEU(LOINC) 2.25-8.10 10 3/mcL High Neutrophil, 10.20 Absolute Performed By: #### CBC, ADIFF, ANEU, BMP, GFR #### [place] [address] BMP Collected: 10/20/2018 Status: F Source: [facility] 5:51 AM [facility] EMERGENCY DEPARTMENT REPOSITORY TYPE CODE TESTS RESULT OUT OF [...] #### CBC, ADIFF, ANEU, BMP, GFR #### [place] [address] .GFR Collected: 10/20/2018 Status: F Source: [facility] 5:51 AM [facility] REPOSITORY TYPE CODE TESTS RESULT OUT OF REFERENCE UNITS RANGE LAB GFRAA(LOINC ml/min/1.73 ) sqm GFR 17 [employer] Result Comment: GFR Population mean for , [...] #### CBC, ADIFF, ANEU, BMP, GFR #### [facility] [address] [place] [address] BEDSIDE GLUCOSE Collected: 10/19/2018 Status: F Source: [facility] 4:50 PM [facility] REPOSITORY TYPE CODE TESTS RESULT OUT OF REFERENCE UNITS RANGE LAB L501.080 70-110 mg/dL High BEDSIDE GLU 142 Result Comment: MANAGEMENT OF PATIENT CARE PER NURSING PROTOCOL Performed By: #### L501.080 #### [facility] Point of Care [address] [place] [address] BEDSIDE GLUCOSE Collected: 10/19/2018 Status: F Source: [facility] 2:15 PM [facility] REPOSITORY TYPE CODE TESTS RESULT OUT OF REFERENCE UNITS RANGE LAB L501.080 70-110 mg/dL High BEDSIDE GLU 133 Result Comment: MANAGEMENT OF PATIENT CARE PER NURSING PROTOCOL Performed By: #### L501.080 #### [facility] Point of Care [address] [place], [place] [address] DISCHARGE SUMMARY Observed: 10/19/2018 Status: F Source: [facility] 1:11 PM [facility] REPOSITORY [facility] Medical Records Department [address] [place] [address] Discharge Summary 10/19/18 1305 MR#: [id number] Acct: [id number] Name: JADA COLUNGA Prerna Rep #: [id number] : 1955 62 From: Octavio Alvarez DO PCP: OUT OF TOWN DOCTOR Status: ADM IN Y Location: [place] [address] Discharge Date and Diagnosis - Problem List [...] Eric Pandey DO at 22:01 EST Tel [phone], Service support , Consultations 10/13/18 17:31 Consult: Onc/Wound/assistant manager trainee Routine Comment: Reason for Consult:: ulcers bilateral heels Gustavo--podiatry Vaughn--ID Namrata--Cardiology Jesus Manuel--[facility] Silvina--nephrology Operations: None Procedures: 2-D Echocardiogram Summary [...] I spoke with the hospitalist over at [facility] who agreed to accept the patient [...] see if any changes or need for CHRONIC SPECIALIST * for dialysis catheter today, then HD [...] urine * continue to hold potentiating medications ([place], neurontin) 6. Bradycardia * improved today * [...] applicable Code Visit Inpatient E AND M: [id number] Disch Hosp 10/19/18 1311 <Electronically signed by Octavio Jopperi DO> Date Octavio Alvarez DO Cosigner Signature (if applicable): Date CC: Jackelin Burger; Octavio Christiansirenaestiven DO; OUT OF TOWN DOCTOR Signed BEDSIDE GLUCOSE Collected: 10/19/2018 Status: F Source: [facility] 6:59 AM [facility] REPOSITORY TYPE CODE TESTS RESULT OUT OF REFERENCE UNITS RANGE LAB L501.080 70-110 mg/dL High BEDSIDE GLU 125 Result Comment: MANAGEMENT OF PATIENT CARE PER NURSING PROTOCOL Performed By: #### L501.080 #### [facility] Point of Care [place] [address] BASIC METABOLIC Collected: 10/19/2018 Status: F Source: [facility] PROFILE (BMP) 5:40 AM [facility] REPOSITORY Order Comment: SPECIMEN OBTAINED FROM [...] GAP 17 Performed By: #### L500.2500 #### [facility] [address] [place], [place], [address] CBC W/DIFF, AUTOMATED Collected: 10/19/2018 Status: F Source: [place] 5:40 AM [facility] REPOSITORY Order Comment: SPECIMEN OBTAINED FROM [...] Performed By: #### L100.0100, L300.3900, L300.4310 #### [facility] [address] [place], [address] PROTHROMBIN TIME W/INR Collected: 10/19/2018 Status: F Source: [facility] 5:40 AM [facility] REPOSITORY Order Comment: SPECIMEN OBTAINED FROM LINE DRAW TYPE CODE TESTS RESULT OUT OF RANGE REFERENCE UNITS LAB L300.4150 11.7-14.9 SECONDS High PROTIME 15.4 LAB L300.4200 Normal INR 1.2 Performed By: #### L100.0100, L300.3900, L300.4310 #### [facility] [address] [place], [address] PARTIAL THROMBOPLAST Collected: 10/19/2018 Status: F Source: [facility] TIME 5:40 AM [facility] REPOSITORY Order Comment: SPECIMEN OBTAINED FROM LINE DRAW TYPE CODE TESTS RESULT OUT OF RANGE REFERENCE UNITS LAB L300.4310 24.1-36.2 Seconds Normal PTT 31.7 Performed By: #### L100.0100, L300.3900, L300.4310 #### [facility] [address] [place], [place], [address] BEDSIDE GLUCOSE Collected: 10/19/2018 Status: F Source: [facility] 4:17 AM [facility] REPOSITORY TYPE CODE TESTS RESULT OUT OF REFERENCE UNITS RANGE LAB L501.080 70-110 mg/dL High BEDSIDE GLU 134 Result Comment: MANAGEMENT OF PATIENT CARE PER NURSING PROTOCOL Performed By: #### L501.080 #### [facility] Point of Care [address] [facility] [place], [place] [address] BEDSIDE GLUCOSE Collected: 10/18/2018 Status: F Source: [facility] 10:03 PM [facility] REPOSITORY TYPE CODE TESTS RESULT OUT OF REFERENCE UNITS RANGE LAB L501.080 70-110 mg/dL High BEDSIDE GLU 141 Result Comment: MANAGEMENT OF PATIENT CARE PER NURSING PROTOCOL Performed By: #### L501.080 #### [facility] Point of Care [address] [place] [address] AMMONIA Collected: 10/18/2018 Status: F Source: [place] 3:50 PM [facility] REPOSITORY TYPE CODE TESTS RESULT OUT OF RANGE REFERENCE UNITS LAB L503.5510 11-32 umol/L Normal AMMONIA 24.0 Performed By: #### L503.5510 #### [facility] [address] [place], [address] BEDSIDE GLUCOSE Collected: 10/18/2018 Status: F Source: [place] 3:41 PM [facility] REPOSITORY TYPE CODE TESTS RESULT OUT OF REFERENCE UNITS RANGE LAB L501.080 70-110 mg/dL High BEDSIDE GLU 134 Result Comment: MANAGEMENT OF PATIENT CARE PER NURSING PROTOCOL Performed By: #### L501.080 #### [facility] Point of Care [address] [place] [address] ECHO, COMPLETE W/ Observed: 10/18/2018 Status: F Source: [place] CONTRAST 12:54 PM [facility] REPOSITORY [facility] Cardiovascular Services [address] [facility] [place] [address] Echo Complete W/ Contrast 10/18/18 0950 MR#: [id number] Acct: [id number] Name: JADA COLUNGA Rep #: [id number] : 1955 62 From: Gumaro Ott MD [...] : Severly Hypokinetic. Mid-anteroseptal : Hypokinetic. Anterior [place] : Akinetic. Inferior [place] : Hypokinetic. Lateral [place] : Hypokinetic. Septal [place] : Hypokinetic. Right Ventricle Normal RV size. [...] Date Dictated: 10/18/18 0950 Date Transcribed: 10/18/18 125 Interior Systems Carpenter: Signed CONSULTATION Observed: 10/18/2018 Status: F Source: [facility] 12:01 PM [facility] REPOSITORY [facility] Medical Records Department [address] [place] [address] Consultation 10/18/18 1139 MR#: [id number] Acct: [id number] Name: JADA COLUNGA Rep #: [id number] : 1955 62 From: Gumaro Ott MD PCP: OUT OF TOWN DOCTOR Status: ADM IN Y Location: [place] [id number] Problem List (1) CAD (coronary artery disease) [...] evaluated by Faisal Rg MD of the [facility] and currently follows with cardiology in [place], [place], who is referred for evaluation of [...] he is being followed by cardiology in [place], [place]. He does not appear to complain [...] (Verified 10/13/18 12:27) goofy, anxious, elevated BP Vwhnkia-Jgr-Njd Reductase Inhibitor Adverse Reaction (Verified 10/13/18 16:05) [...] cholecystectomy, coronary bypass surgery - 2004 - [facility], herniorrhaphy, tonsillectomy, - - Cardiac stent placement 24 (according to patient), right carotid endarterectomy. - *Family History Maternal History Items: No pertinent history Paternal History Items: Heart Disease - of an [place] at age 61 Sibling History Items: No [...] 75.1 H, Lymph % (Auto) 9.3 L, [place] % (Auto) 11.3 H, Eos % (Auto) [...] right bundle branch block pattern ECHO: 2015: [facility]: Left ventricle: LVEF 30-35%; left atrium dilated; Cardiac Cath: 03/24/2015: [facility]: Left main coronary artery normal; LAD occluded; LCx proximal stent patent with distal 80% stenosis; RCA with distal 70% stenosis; LV dysfunction with an LVEF of 20-25% PCI: 03/24/2015: [facility]: PTCA/EVERTON to the LCx system and [...] review. A request has been made from [facility] in [place], [place] for additional cardiovascular medical record for [...] BEDSIDE GLUCOSE Collected: 10/18/2018 Status: F Source: [place] 11:40 AM [facility] REPOSITORY TYPE CODE TESTS RESULT OUT OF RANGE REFERENCE UNITS LAB L501.080 70-110 mg/dL Normal BEDSIDE GLU 100 Result Comment: MANAGEMENT OF PATIENT CARE PER NURSING PROTOCOL Performed By: #### L501.080 #### [facility] Point of Care [address] [place] [address] [place] [address] BLOOD GASES BY [facility] Collected: 10/18/2018 Status: F Source: [place] 10:16 AM [facility] REPOSITORY TYPE CODE TESTS RESULT OUT [...] SO2 ISTAT Performed By: #### L9000.0800 #### [facility] Point of Care [address] [place] [address] BEDSIDE GLUCOSE Collected: 10/18/2018 Status: F Source: [facility] 9:47 AM [facility] REPOSITORY TYPE CODE TESTS RESULT OUT OF REFERENCE UNITS RANGE LAB L501.080 70-110 mg/dL High BEDSIDE GLU 157 Result Comment: MANAGEMENT OF PATIENT CARE PER NURSING PROTOCOL Performed By: #### L501.080 #### [facility] Point of Care [address] [place] [address] BEDSIDE GLUCOSE Collected: 10/18/2018 Status: F Source: [facility] 8:52 AM [facility] REPOSITORY TYPE CODE TESTS RESULT OUT OF REFERENCE UNITS RANGE LAB L501.080 70-110 mg/dL Low BEDSIDE GLU 53 Result Comment: MANAGEMENT OF PATIENT CARE PER NURSING PROTOCOL Performed By: #### L501.080 #### [facility] Point of Care [address] [place] [address] BEDSIDE GLUCOSE Collected: 10/18/2018 Status: F Source: [facility] 7:28 AM [facility] REPOSITORY TYPE CODE TESTS RESULT OUT OF REFERENCE UNITS RANGE LAB L501.080 70-110 mg/dL Low BEDSIDE GLU 60 Result Comment: MANAGEMENT OF PATIENT CARE PER NURSING PROTOCOL Performed By: #### L501.080 #### [facility] Point of Care [address] [place] [address] BEDSIDE GLUCOSE Collected: 10/18/2018 Status: F Source: [facility] 7:07 AM [facility] REPOSITORY TYPE CODE TESTS RESULT OUT OF REFERENCE UNITS RANGE LAB L501.080 70-110 mg/dL Low BEDSIDE GLU 50 Result Comment: Snack Given MANAGEMENT OF PATIENT CARE PER NURSING PROTOCOL Performed By: #### L501.080 #### [facility] Point of Care [address] [place], [place] [address] BEDSIDE GLUCOSE Collected: 10/18/2018 Status: F Source: [facility] 6:48 AM [facility] REPOSITORY TYPE CODE TESTS RESULT OUT OF REFERENCE UNITS RANGE LAB L501.080 70-110 mg/dL Low BEDSIDE GLU 45 Result Comment: Snack Given MANAGEMENT OF PATIENT CARE PER NURSING PROTOCOL Performed By: #### L501.080 #### [facility] Point of Care [address] [facility] [place] [address] CBC W/DIFF, AUTOMATED Collected: 10/18/2018 Status: F Source: [place] 2:20 AM [facility] REPOSITORY TYPE CODE TESTS RESULT OUT [...] 0.88 Performed By: #### L100.0100, L500.2500 #### [facility] [address] [place], [address] BASIC METABOLIC Collected: 10/18/2018 Status: F Source: [place] PROFILE (BMP) 2:20 AM [facility] REPOSITORY TYPE CODE TESTS RESULT OUT [...] 9 Performed By: #### L100.0100, L500.2500 #### [facility] [address] [place], [address] BEDSIDE GLUCOSE Collected: 10/17/2018 Status: F Source: [place] 8:42 PM [facility] REPOSITORY TYPE CODE TESTS RESULT OUT OF REFERENCE UNITS RANGE LAB L501.080 70-110 mg/dL High BEDSIDE GLU 160 Result Comment: MANAGEMENT OF PATIENT CARE PER NURSING PROTOCOL Performed By: #### L501.080 #### [facility] Point of Care [address] [place] [address] CONSULTATION Observed: 10/17/2018 Status: F Source: [place] 1:11 PM [facility] REPOSITORY [facility] Medical Records Department [address] [place] [address] Consultation 10/17/18 1255 MR#: [id number] Acct: [id number] Name: JADA COLUNGA Rep #: [id number] : 1955 62 From: Aaron Cool MD PCP: OUT OF TOWN DOCTOR Status: ADM IN Y Location: [id number] Consultation - Renal 10/17/18 PCP/ Referring MD: [...] (Verified 10/13/18 12:27) goofy, anxious, elevated BP Dzovlmn-Zyf-Yuc Reductase Inhibitor Adverse Reaction (Verified 10/13/18 16:05) rhabdomyolosis - Current Medications Current Medications: Current Medications Acetaminophen (Tylenol) 650 mg PO Q6H PRN PRN PRN Reason: Mild Pain (1-3)/Temp > 100.7 F Last Admin: 10/14/18 21:38 Dose: 650 mg Hydrocodone Bitart/Acetaminophen ([place] 5mg-325mg) 2 tablet PO Q6H PRN PRN PRN Reason: SEVERE PAIN (6-10/10) Last Admin: 10/17/18 06:33 Dose: 2 tablet Albuterol Sulfate (Ventolin Aerosols) 2.5 mg INHALATION Q2H PRN PRN PRN Reason: DYSPNEA Last Admin: 10/14/18 16:34 Dose: 2.5 mg Amlodipine Besylate (Norvasc) 10 mg PO DAILY [facility] Last Admin: 10/17/18 11:33 Dose: 10 mg Amoxicillin/Clavulanate Potassium (Augmentin Tablet) 500 mg PO QAM [facility] Last Admin: 10/17/18 11:31 Dose: 500 mg Aspirin (Aspirin, Baby) 81 mg PO DAILY@0800 [facility] Last Admin: 10/17/18 11:31 Dose: 81 mg Atorvastatin Calcium (Lipitor) 80 mg PO QHS [facility] Last Admin: 10/16/18 23:01 Dose: 80 mg Carvedilol (Coreg) 25 mg PO BID [facility] Last Admin: 10/17/18 11:31 Dose: 25 mg Clopidogrel Bisulfate (Plavix) 75 mg PO DAILY [facility] Last Admin: 10/17/18 11:33 Dose: 75 mg Collagenase (Santyl) 1 applic TOPICAL DAILY [facility]; Protocol Last Admin: 10/17/18 11:33 Dose: 1 applicatio Duloxetine HCl (Cymbalta) 30 mg PO DAILY [facility] Last Admin: 10/17/18 11:31 Dose: 30 mg Ferrous Sulfate (Ferrous Sulfate) 325 mg PO QODAY@0800 [facility] Last Admin: 10/16/18 08:52 Dose: 325 mg Gabapentin (Neurontin) 600 mg PO TID [facility] Last Admin: 10/17/18 11:34 Dose: 600 mg Heparin Sodium (Porcine) (Heparin Na) 5,000 unit SC Q8 [facility] Last Admin: 10/17/18 06:32 Dose: 5,000 unit Hydralazine HCl (Apresoline) 25 mg PO TID [facility] Last Admin: 10/17/18 11:34 Dose: 25 mg Hydroxyzine Pamoate (Vistaril Pamoate Capsule) 25 mg PO TID PRN PRN PRN Reason: ANXIETY Last Admin: 10/14/18 05:34 Dose: 25 mg Sodium Chloride () 1,000 mls @ 100 mls/hr IV .Q10H [facility] Last Admin: 10/17/18 11:27 Dose: 100 mls/hr Insulin Glargine (Lantus (Bkc)) 30 units SC BID [facility] Last Admin: 10/17/18 11:32 Dose: 30 u Insulin Human Lispro (Humalog Kwikpen ([facility])) 0 unit SC ACHS [facility]; Protocol Last Admin: 10/17/18 11:34 Dose: Not Given Isosorbide Mononitrate (Imdur) 30 mg PO BID [facility] Last Admin: 10/17/18 11:32 Dose: 30 mg Levofloxacin (Levaquin Tablet) 250 mg PO Q48H [facility] Melatonin (Melatonin) 20 mg PO QHS PRN PRN Reason: SLEEP Nutritional Formula (Lactose Free) (Glucerna Shake) 120 ml PO 4X/DAY [facility] Last Admin: 10/17/18 11:32 Dose: 120 ml Promethazine HCl (Phenergan) 6.25 mg IV Q6H PRN PRN PRN Reason: NAUSEA/VOMITING Last Admin: 10/16/18 20:44 Dose: 6.25 mg Sertraline HCl (Zoloft) 100 mg PO DAILY [facility] Last Admin: 10/17/18 11:34 Dose: 100 mg Simethicone (Mylicon) 80 mg PO PCHS [facility] Last Admin: 10/17/18 11:31 Dose: 80 mg [...] cholecystectomy, coronary bypass surgery - 2005 - [facility], herniorrhaphy, tonsillectomy, - - Cardiac stent placement 24 (according to patient), right carotid endarterectomy. - Social History Smoking Status: Never smoker Alcohol: None - Family History Maternal History Items: No pertinent history Paternal History Items: Heart Disease - of an [place] at age 61 Sibling History Items: No [...] 600 / 600 100 / 100 Balance 191 / 1919 1688 / 1688 1807 / [...] DPM; OUT OF TOWN DOCTOR; Raúl Mendes MD; Aaron Cool MD Signed BEDSIDE GLUCOSE Collected: 10/17/2018 Status: F Source: [facility] 11:26 AM [facility] REPOSITORY TYPE CODE TESTS RESULT OUT OF REFERENCE UNITS RANGE LAB L501.080 70-110 mg/dL High BEDSIDE GLU 122 Result Comment: MANAGEMENT OF PATIENT CARE PER NURSING PROTOCOL Performed By: #### L501.080 #### [facility] Point of Care [address] [place] [address] KIDNEY AND BLADDER Observed: 10/17/2018 Status: F Source: [facility] 7:50 AM [facility] REPOSITORY [facility] Imaging Services [address] [place] [address] Kidney and Bladder MR#: [id number] Acct: [id number] Name: JADA COLUNGA Rep #: [id number] : 1955 M 62 From: Eric Pandey DO PCP: OUT OF TOWN DOCTOR Status: ADM IN Study: Kidney and Bladder Date of Exam: 10/17/18 Exam# [id number] Ordering Dr: Octavio Alvarez DO STUDY: RENAL [...] kidneys and urinary bladder. Electronically Signed: Eric DonohueonDO at 22:01 EST Tel [phone], Service support , CC: Octavio Alvarez DO; OUT OF TOWN DOCTOR [employer] Carpenter: Signed BEDSIDE GLUCOSE Collected: 10/17/2018 Status: F Source: [facility] 6:30 AM [facility] REPOSITORY TYPE CODE TESTS RESULT OUT OF RANGE REFERENCE UNITS LAB L501.080 70-110 mg/dL Normal BEDSIDE GLU 75 Result Comment: MANAGEMENT OF PATIENT CARE PER NURSING PROTOCOL Performed By: #### L501.080 #### [facility] Point of Care [address] [place] [address] BASIC METABOLIC Collected: 10/17/2018 Status: F Source: [facility] PROFILE (BMP) 5:46 AM [facility] REPOSITORY TYPE CODE TESTS RESULT OUT [...] GAP 12 Performed By: #### L500.2500 #### [facility] [address] [place], [address] BEDSIDE GLUCOSE Collected: 10/17/2018 Status: F Source: [facility] 2:52 AM [facility] REPOSITORY TYPE CODE TESTS RESULT OUT OF REFERENCE UNITS RANGE LAB L501.080 70-110 mg/dL High BEDSIDE GLU 118 Result Comment: MANAGEMENT OF PATIENT CARE PER NURSING PROTOCOL Performed By: #### L501.080 #### [facility] Point of Care [address] [place] [address] BEDSIDE GLUCOSE Collected: 10/17/2018 Status: F Source: [facility] 2:14 AM [facility] REPOSITORY TYPE CODE TESTS RESULT OUT OF REFERENCE UNITS RANGE LAB L501.080 70-110 mg/dL Low BEDSIDE GLU 50 Result Comment: MANAGEMENT OF PATIENT CARE PER NURSING PROTOCOL Performed By: #### L501.080 #### [facility] Point of Care [address] [place] [address] BEDSIDE GLUCOSE Collected: 10/16/2018 Status: F Source: SANDRA 10:49 PM [facility] REPOSITORY TYPE CODE TESTS RESULT OUT OF REFERENCE UNITS RANGE LAB L501.080 70-110 mg/dL High BEDSIDE GLU 117 Result Comment: MANAGEMENT OF PATIENT CARE PER NURSING PROTOCOL Performed By: #### L501.080 #### [facility] Point of Care [address] [place] [address] BEDSIDE GLUCOSE Collected: 10/16/2018 Status: F Source: SANDRA 4:30 PM [facility] REPOSITORY TYPE CODE TESTS RESULT OUT OF REFERENCE UNITS RANGE LAB L501.080 70-110 mg/dL High BEDSIDE GLU 141 Result Comment: MANAGEMENT OF PATIENT CARE PER NURSING PROTOCOL Performed By: #### L501.080 #### [facility] Point of Care [address] [place] [address] BEDSIDE GLUCOSE Collected: 10/16/2018 Status: F Source: SANDRA 11:30 AM [facility] REPOSITORY TYPE CODE TESTS RESULT OUT OF REFERENCE UNITS RANGE LAB L501.080 70-110 mg/dL High BEDSIDE GLU 160 Result Comment: MANAGEMENT OF PATIENT CARE PER NURSING PROTOCOL Performed By: #### L501.080 #### [facility] Point of Care [address] [place] [address] BEDSIDE GLUCOSE Collected: 10/16/2018 Status: F Source: [place] 6:41 AM [facility] REPOSITORY TYPE CODE TESTS RESULT OUT OF RANGE REFERENCE UNITS LAB L501.080 70-110 mg/dL Normal BEDSIDE GLU 84 Result Comment: MANAGEMENT OF PATIENT CARE PER NURSING PROTOCOL Performed By: #### L501.080 #### [facility] Point of Care [address] [place] [address] CREATININE, URINE Collected: 10/16/2018 Status: F Source: [place] 6:20 AM [facility] REPOSITORY TYPE CODE TESTS RESULT OUT OF RANGE REFERENCE UNITS LAB L502.0300 NO RANGE EST. mg/dL Normal URINE 116.00 CREAT Performed By: #### L502.0300 #### [facility] [address] [facility] [address] UREA NITROGEN, URINE Collected: 10/16/2018 Status: F Source: [place] 6:20 AM [facility] REPOSITORY TYPE CODE TESTS RESULT OUT OF RANGE REFERENCE UNITS LAB L502.0715 NO RANGE EST. mg/dL Normal URINE 378 UREA Performed By: #### L502.0715 #### [facility] [address] [facility] [address] [place], [address] URINALYSIS, COMPLETE Collected: 10/16/2018 Status: F Source: [place] 6:20 AM [facility] REPOSITORY Order Comment: How was Urine [...] Normal AMORPHOUS Performed By: #### L400.0001 #### [facility] [address] [place], [address] CBC W/DIFF, AUTOMATED Collected: 10/16/2018 Status: F Source: [place] 6:08 AM [facility] REPOSITORY TYPE CODE TESTS RESULT OUT [...] Lymph 0.92 Performed By: #### L100.0100 #### [facility] [address] [place], [address] BASIC METABOLIC Collected: 10/16/2018 Status: F Source: [place] PROFILE (BMP) 6:08 AM [facility] REPOSITORY TYPE CODE TESTS RESULT OUT [...] GAP 11 Performed By: #### L500.2500 #### [facility] [address] [place], [address] BEDSIDE GLUCOSE Collected: 10/15/2018 Status: F Source: [place] 10:18 PM [facility] REPOSITORY TYPE CODE TESTS RESULT OUT OF REFERENCE UNITS RANGE LAB L501.080 70-110 mg/dL High BEDSIDE GLU 175 Result Comment: MANAGEMENT OF PATIENT CARE PER NURSING PROTOCOL Performed By: #### L501.080 #### [facility] Point of Care [address] [place] [address] ARTERIAL Observed: 10/15/2018 Status: F Source: [place] 10:16 PM [facility] REPOSITORY [facility] Cardiovascular Services [address] [facility] [place] [address] Lower Ext Art Exam w/o Exercis 10/15/18 0919 MR#: [id number] Acct: [id number] Name: JADA COLUNGA Prerna Rep #: [id number] : 1955 62 From: Federico Delgado MD Attending Dr: Octavio Alvarez DO Status: ADM IN Ordering Dr: Jeremie Blankenship DPM Date: 10/13/18 [place] [facility] Sex: M C Admitted: 10/13/18 Reason For [...] Physician: MER BLANKENSHIP Performed By: Ashlie Bruce Luis, [facility] 10/15/182214 Date Federico Delgado MD CC: Octavio Alvarez DO; Jeremie Blankenship DPM; OUT OF TOWN DOCTOR Date Dictated: 10/15/18918 Date Transcribed: 10/15/182214 Interior Systems Carpenter: Signed BEDSIDE GLUCOSE Collected: 10/15/2018 Status: F Source: SANDRA 5:01 PM [facility] REPOSITORY TYPE CODE TESTS RESULT OUT OF REFERENCE UNITS RANGE LAB L501.080 70-110 mg/dL High BEDSIDE GLU 203 Result Comment: MANAGEMENT OF PATIENT CARE PER NURSING PROTOCOL Performed By: #### L501.080 #### [facility] Point of Care [address] [place] [address] VANCOMYCIN, TROUGH Collected: 10/15/2018 Status: F Source: [place] LEVEL 4:45 PM [facility] REPOSITORY Order Comment: Time Medication is [...] (Ventilator/Healtcare Associated) -Sepsis PLEASE CONTACT PHARMACY SERVICES (#[id number]) FOR INTERPRETATION OF RESULTS. Performed By: #### L501.8820 #### [facility] [address] [facility]. [place], [place], [address] EOSINOPHIL [address]. URINE Collected: 10/15/2018 Status: F Source: [place] 3:30 PM [facility] REPOSITORY Order Comment: SENT LABELS TO FLOOR TO BE COLLECTED URINE. TYPE CODE TESTS RESULT OUT OF RANGE REFERENCE UNITS LAB L3100.6600 . % No Normal EOS CT Eosinophils Seen 129060 Result Comment: <5% few or none seen Performed at: - [facility] [address] [id number] Set Key Driver: Lg Kingsley PhD, Phone: [phone] Performed By: #### L3100.6600 #### [facility] (refer to report for specific site) refer to report for address and phone number CONSULTATION Observed: 10/15/2018 Status: F Source: [place] 2:10 PM [facility] REPOSITORY [facility] Medical Records Department [address] [place] [address] Consultation 10/15/18 1406 MR#: [id number] Acct: [id number] Name: HUMBERTOJADA W Rep #: [id number] : 1955 62 From: Raúl Mendes MD PCP: OUT OF TOWN DOCTOR Status: ADM IN Y Location: [facility] OK729-4 Problem List (1) Cellulitis of right heel [...] (Verified 10/13/18 12:27) goofy, anxious, elevated BP Knxipsw-Ugf-Imp Reductase Inhibitor Adverse Reaction (Verified 10/13/18 16:05) [...] Raúl Mendes MD> Date Raúl Mendes MD [facility] Signature (if applicable): Date CC: Jeremie Blankenship DPM; OUT OF TOWN DOCTOR; Raúl Mendes MD Signed BEDSIDE GLUCOSE Collected: 10/15/2018 Status: F Source: SANDRA 10:25 AM [facility] REPOSITORY TYPE CODE TESTS RESULT OUT OF REFERENCE UNITS RANGE LAB L501.080 70-110 mg/dL High BEDSIDE GLU 142 Result Comment: MANAGEMENT OF PATIENT CARE PER NURSING PROTOCOL Performed By: #### L501.080 #### [facility] Point of Care [address] [place] [address] BEDSIDE GLUCOSE Collected: 10/15/2018 Status: F Source: [place] 6:47 AM [facility] REPOSITORY TYPE CODE TESTS RESULT OUT OF RANGE REFERENCE UNITS LAB L501.080 70-110 mg/dL Normal BEDSIDE GLU 79 Result Comment: MANAGEMENT OF PATIENT CARE PER NURSING PROTOCOL Performed By: #### L501.080 #### [facility] Point of Care [address] [place] [address] BASIC METABOLIC Collected: 10/15/2018 Status: F Source: [place] PROFILE (BMP) 5:30 AM [facility] REPOSITORY TYPE CODE TESTS RESULT OUT [...] GAP 11 Performed By: #### L500.2500 #### [facility] [address] [place], [address] BEDSIDE GLUCOSE Collected: 10/14/2018 Status: F Source: [place] 9:34 PM [facility] REPOSITORY TYPE CODE TESTS RESULT OUT OF RANGE REFERENCE UNITS LAB L501.080 70-110 mg/dL Normal BEDSIDE GLU 92 Result Comment: MANAGEMENT OF PATIENT CARE PER NURSING PROTOCOL Performed By: #### L501.080 #### [facility] Point of Care [address] [place] [address] BEDSIDE GLUCOSE Collected: 10/14/2018 Status: F Source: [place]A 3:54 PM [facility] REPOSITORY TYPE CODE TESTS RESULT OUT OF RANGE REFERENCE UNITS LAB L501.080 70-110 mg/dL Normal BEDSIDE GLU 91 Result Comment: MANAGEMENT OF PATIENT CARE PER NURSING PROTOCOL Performed By: #### L501.080 #### [facility] Point of Care [address] [place], [place] [address] BEDSIDE GLUCOSE Collected: 10/14/2018 Status: F Source: [place]DRA 2:37 PM [facility] REPOSITORY TYPE CODE TESTS RESULT OUT OF RANGE REFERENCE UNITS LAB L501.080 70-110 mg/dL Normal BEDSIDE GLU 95 Result Comment: MANAGEMENT OF PATIENT CARE PER NURSING PROTOCOL Performed By: #### L501.080 #### [facility] Point of Care [address] [place], [place] [address] BEDSIDE GLUCOSE Collected: 10/14/2018 Status: F Source: [place]A 10:59 AM [facility] REPOSITORY TYPE CODE TESTS RESULT OUT OF REFERENCE UNITS RANGE LAB L501.080 70-110 mg/dL High BEDSIDE GLU 147 Result Comment: MANAGEMENT OF PATIENT CARE PER NURSING PROTOCOL Performed By: #### L501.080 #### [facility] Point of Care [address] [place], [place] [address] BEDSIDE GLUCOSE Collected: 10/14/2018 Status: F Source: [place] 6:52 AM [facility] REPOSITORY TYPE CODE TESTS RESULT OUT OF REFERENCE UNITS RANGE LAB L501.080 70-110 mg/dL High BEDSIDE GLU 140 Result Comment: MANAGEMENT OF PATIENT CARE PER NURSING PROTOCOL Performed By: #### L501.080 #### [facility] Point of Care [address] [place], [place] [address] CBC W/DIFF, AUTOMATED Collected: 10/14/2018 Status: F Source: [place]A 5:20 AM [facility] REPOSITORY TYPE CODE TESTS RESULT OUT [...] 0.65 Performed By: #### L100.0100, L101.9900 #### [facility] [address] [facility]. [place], [place], [address] ERYTHROCYTE SED RATE Collected: 10/14/2018 Status: F Source: [place] 5:20 AM [facility] REPOSITORY TYPE CODE TESTS RESULT OUT OF RANGE REFERENCE UNITS LAB L102.0000 0-20 mm/hr High SED RATE 54 Performed By: #### L100.0100, L101.9900 #### [facility] [address] [place], [address] BASIC METABOLIC Collected: 10/14/2018 Status: F Source: [place]A PROFILE (BMP) 5:20 AM [facility] REPOSITORY TYPE CODE TESTS RESULT OUT [...] 10 Performed By: #### L500.2500, L501.6710 #### [facility] [address] [place], [address] CRP Collected: 10/14/2018 Status: F Source: [place] 5:20 AM [facility] REPOSITORY TYPE CODE TESTS RESULT OUT OF RANGE REFERENCE UNITS LAB L501.6710 0.0-3.0 mg/L High 31.40 C-REACTIVE PROT Result Comment: C-Reactive Protein (CRP) provides useful information for the diagnosis, therapy and monitoring of inflammatory processes and associated diseases. For the evaluation of Relative Risk for Cardiovascular Disease, a High Sensitivity CRP (HSCRP) should be ordered. Performed By: #### L500.2500, L501.6710 #### [facility] [address] [facility]. [place], [place], [address] LIVER PROFILE Collected: 10/14/2018 Status: F Source: [place] 5:20 AM [facility] REPOSITORY TYPE CODE TESTS RESULT OUT [...] Performed By: #### L500.3400, L500.4100, L501.5200 #### [facility] [address] [facility]. [place], [place], [address] LIPID PROFILE Collected: 10/14/2018 Status: F Source: [place] 5:20 AM [facility] REPOSITORY TYPE CODE TESTS RESULT OUT [...] Performed By: #### L500.3400, L500.4100, L501.5200 #### [facility] [address] [facility] [place], [address] MAGNESIUM Collected: 10/14/2018 Status: F Source: [place] 5:20 AM [facility] REPOSITORY TYPE CODE TESTS RESULT OUT OF RANGE REFERENCE UNITS LAB L501.5200 1.6-2.6 mg/dL Normal MG 2.1 Performed By: #### L500.3400, L500.4100, L501.5200 #### [facility] [address] [facility] [place], [address] HEMOGLOBIN A1C Collected: 10/14/2018 Status: F Source: [place] 5:20 AM [facility] REPOSITORY TYPE CODE TESTS RESULT OUT OF RANGE REFERENCE UNITS LAB L501.9985 4.2-6.3 % High HGB A1C 12.3 Performed By: #### L501.9985 #### [facility] [address] [facility] [place], [address] CONSULTATION Observed: 10/13/2018 Status: F Source: [place] 9:58 PM [facility] REPOSITORY [facility] Medical Records Department [address] [place] [address] Consultation 10/13/18 1734 MR#: [id number] Acct: [id number] Name: JADA COLUNGA Rep #: [id number] : 1955 62 From: Jeremie Blankenship DPM PCP: Care Physician, No Primary Status: ADM IN Location: [facility] [id number] Reason for Consult Date of Consultation: 10/13/18 [...] the left heel, states his PCP in [place] took a look at this, he states [...] (Verified 10/13/18 12:27) goofy, anxious, elevated BP Qfdnkts-Rzw-Lpv Reductase Inhibitor Adverse Reaction (Verified 10/13/18 16:05) rhabdomyolosis Home Medications: Ambulatory Orders Medication Instructions Recorded Clopidogrel Bisulfate [Plavix] 75 mg PO DAILY 02/08/15 Surgical History: appendectomy, cataract, cholecystectomy, coronary bypass surgery - 2005 - [facility], herniorrhaphy, tonsillectomy, - - Cardiac stent placement 24 (according to patient), right carotid endarterectomy. Psychiatric History: Depression Lives: With Family Smoking Status: Never smoker Tobacco Use: Non-smoker Alcohol: None - *Family History Maternal History Items: No pertinent history Paternal History Items: Heart Disease - of an IL at age 61 Sibling History Items: No [...] to follow. Thank you for consultation. 10/13/18 3860 <Electronically signed by Jeremie Blankenship DPM> Date Jeremie Blankenship DPM Cosigner Signature (if applicable): Date CC: No Primary Care Physician; Jeremie Blankenship DPM; OUT OF TOWN DOCTOR Signed BEDSIDE GLUCOSE Collected: 10/13/2018 Status: F Source: [place]A 9:38 PM [facility] REPOSITORY TYPE CODE TESTS RESULT OUT OF REFERENCE UNITS RANGE LAB L501.080 70-110 mg/dL High BEDSIDE GLU 191 Result Comment: MANAGEMENT OF PATIENT CARE PER NURSING PROTOCOL Performed By: #### L501.080 #### [facility] Point of Care [address] [place], [place] [address] MRSA WOUND DNA BY Collected: 10/13/2018 Status: F Source: [place] PCR 5:30 PM [facility] REPOSITORY Order Comment: Specimen Source? right foot ulcer TYPE CODE TESTS RESULT OUT OF REFERENCE UNITS RANGE LAB L8200.1100 Negative High MRSA POSITIVE RESULT Result Comment: SENT TO [facility] 10-13-18 AT 1842PM RESULTS CALLED TO NICOLE DOLL RN 10/13/18 1841 Justin Cohen. REPORT READ BACK BY SAME . LAB L8200.1150 Negative High SA RESULT POSITIVE Performed By: #### L8200.1075 #### [facility] [address] [facility] [place], [address] Observed: 10/13/2018 Status: F Source: [place] CULTURE, DEEP WOUND 5:30 PM [facility] REPOSITORY Gram Stain Gram Stain 4+ Red Blood Cells 1+ Epithelial cells No organisms seen Wound Culture Copy of report sent to Infection Control Printer [id number] 10/15/18 0844 RENNY. ORGANISM 1: Meth. resistant Staph. aureus Amount [...] 1 S (NF) indicates non-formulary drug at [facility]. Approval by Infectious Disease Specialist required [...] 1 S (NF) indicates non-formulary drug at [facility]. Approval by Infectious Disease Specialist required before non-formulary drugs may be ordered and/or dispensed. * CLSI guidelines does not recommend testing of cephalosporins. This interpretation is deduced from Beta-lactam/penicillin results. Cult, Anaerobic No anaerobic bacteria isolated. Performed By: #### M100.1500 #### [facility] [address] [facility] [place], [address] EMERGENCY DEPARTMENT Observed: 10/13/2018 Status: F Source: [place] SUMMARY 4:48 PM [facility] REPOSITORY [facility] Medical Records Department [address] [facility] [place] [address] Emergency Department Summary 10/13/18 1520 MR#: [id number] Acct: [id number] Name: JADA COLUNGA Rep #: [id number] : 1955 62 From: Justin Hammond MD [...] heel osteomyelitis This note was generated with [employer] dictation software. It may contain incorrect words, [...] your Primary Care Provider. Call [facility] ([phone]) or report to the closest Emergency Room. Call 911 if necessary. 10/13/18 1648 <Electronically signed by Justin Hammond MD> Date Justin Hammond MD Cosigner Signature (If Indicated): Date CC: No Primary Care Physician; OUT OF TOWN DOCTOR HISTORY AND PHYSICAL Observed: 10/13/2018 Status: F Source: [place] EXAM 4:17 PM [facility] REPOSITORY [facility] Medical Records Department [address] [place] [address] History and Physical 10/13/18 1601 MR#: [id number] Acct: [id number] Name: JADA COLUNGA Rep #: [id number] : 1955 62 From: James Gunderson DO PCP: Care Physician, No Primary Status: ADM CECILE Y Location: [facility] HG119-8 Problem List (1) Pain of right heel Status: Acute History of Present Illness Date of Admission: 10/13/18 Chief Complaint: Right heel pain The patient is a 62 year old M who was seen in the emergency room at [facility] with chief complaint of increased pain in [...] (Chronic) Obesity (Chronic) Benign hypertension (Chronic) Allergies Pmhgbyi-Rmm-Anq Reductase Inhibitor Allergy (Verified 10/13/18 12:27) rhabdo metoclopramide HCl [From Reglan] Adverse Reaction (Verified 10/13/18 12:27) goofy, anxious, elevated BP ondansetron HCl [From Zofran] Adverse Reaction (Verified 10/13/18 12:27) goofy, anxious, elevated BP Home Medications: Ambulatory Orders Medication Instructions Recorded Clopidogrel Bisulfate [Plavix] 75 mg PO DAILY 02/08/15 Surgical History: appendectomy, cataract, cholecystectomy, coronary bypass surgery - 2005 - [facility], herniorrhaphy, tonsillectomy, - - Cardiac stent placement 24 (according to patient), right carotid endarterectomy. Psychiatric History: Depression Lives: With Family Smoking Status: Never smoker Tobacco Use: Non-smoker Alcohol: None - *Family History Maternal History Items: No pertinent history Paternal History Items: Heart Disease - of an [place] at age 61 Sibling History Items: No [...] heel/possible osteomyelitis- patient will be admitted to [facility], he will be maintained on IV Zosyn [...] ago Code Visit Inpatient E AND M: [id number] Init Hosp L3 10/13/18 1617 <Electronically signed by James Gunderson DO> Date James Gunderson DO Cosigner Signature: Date (if applicable) CC: No Primary Care Physician; James Gunderson DO; OUT OF TOWN DOCTOR Signed BEDSIDE GLUCOSE Collected: 10/13/2018 Status: F Source: [place] 4:12 PM [facility] REPOSITORY TYPE CODE TESTS RESULT OUT OF REFERENCE UNITS RANGE LAB L501.080 70-110 mg/dL High BEDSIDE GLU 122 Result Comment: MANAGEMENT OF PATIENT CARE PER NURSING PROTOCOL Performed By: #### L501.080 #### [facility] Point [place] [address] BONE SCAN THREE Observed: 10/13/2018 Status: F Source: [facility] PHASE [facility]:44 [facility] Imaging Services [address] [place] [address] Bone Scan Three Phase MR#: [id number] Acct: [id number] Name: JADA COLUNGA Rep #: [id number] : 1955 M 62 From: Shalom Clark DO PCP: OUT OF TOWN DOCTOR Status: ADM IN Study: Bone Scan Three Phase Date of Exam: 10/15/18 Exam# [id number] Ordering Dr: James Gunderson DO CLINICAL: 62-year-old [...] James Gunderson DO; OUT OF TOWN DOCTOR Interior Systems Carpenter: Signed CBC W/DIFF, AUTOMATED Collected: 10/13/2018 Status: F Source: [place] 1:33 PM [facility] REPOSITORY TYPE CODE TESTS RESULT OUT [...] Lymph 0.85 Performed By: #### L100.0100 #### [facility] [address] [place], [place], [address] BASIC METABOLIC Collected: 10/13/2018 Status: F Source: [place] PROFILE ([facility]) 1:33 PM [facility] REPOSITORY TYPE CODE TESTS RESULT OUT [...] GAP 9 Performed By: #### L500.2500 #### [facility] [place], [address] Observed: 10/13/2018 Status: F Source: [place] CULTURE, BLOOD (WB) 1:33 PM [facility] REPOSITORY BC No growth in 5 days. Performed By: #### M200.1000 #### [facility] [address] [facility] [place], [address] Observed: 10/13/2018 Status: F Source: [place] CULTURE, BLOOD (WB) 1:10 PM [facility] REPOSITORY BC No growth in 5 days. Performed By: #### M200.1000 #### [facility] [place], [address] FOOT MIN 3 VIEWS Observed: 10/13/2018 Status: F Source: [place]DRA 12:53 PM [facility] REPOSITORY [facility] Imaging Services [address] [place] [address] [place] [address] Foot min 3 Views MR#: [id number] Acct: [id number] Name: JADA COLUNGA Rep #: [id number] : 1955 M 62 From: Boris Lizarraga MD PCP: Care Physician, No Primary Status: REG ER Study: Foot min 3 Views Date of Exam: 10/13/18 Exam# [id number] Ordering Dr: Justin Hammond MD STUDY: X-RAY [...] CC: No Primary Care Physician; Justin Hammond Interior Systems Carpenter: Signed VENOUS DUPLEX LOWER Observed: 10/04/2018 Status: F Source: [place] EXTREMITY 1:44 PM [facility] REPOSITORY [facility] Cardiovascular Services [address] [place] [address] Venous Duplex US, Unilateral 10/03/18 1017 MR#: [id number] Acct: [id number] Name: JADA COLUNGA Rep #: [id number] : 1955 62 From: Federico Delgado MD [...] Physician: DOCTOR, OUT OF TOWN Performed By: Teo OLIVER RD, Ashlie and Student 10/04/18 1344 Date Federico Delgado MD CC: No Primary Care Physician; KAYLEN RENE; OUT OF TOWN DOCTOR Date Dictated: 10/03/18 1017 Date Transcribed: 10/04/18 1344 Interior Systems Carpenter: Signed CBC Collected: 09/30/2018 Status: F Source: [facility] 4:05 PM [facility] REPOSITORY TYPE CODE TESTS RESULT [...] ADIFF, ANEU, PBNP, MG, GFR, BMP #### [address] [address] .AUTO DIFF Collected: 09/30/2018 Status: F Source: [facility] 4:05 PM [facility] REPOSITORY TYPE CODE TESTS RESULT [...] ADIFF, ANEU, PBNP, MG, GFR, BMP #### [address] [address] .NEUABS Collected: 09/30/2018 Status: F Source: [facility] 4:05 [facility] REPOSITORY TYPE CODE TESTS RESULT OUT OF REFERENCE UNITS RANGE LAB ANEU(LOINC) 2.25-8.10 10 3/mcL Neutrophil, 6.60 Absolute Performed By: #### CBC, ADIFF, ANEU, PBNP, MG, GFR, BMP #### [place] [address] PBNP Collected: 09/30/2018 Status: F Source: [facility] 4:05 [facility] REPOSITORY TYPE CODE TESTS RESULT OUT OF REFERENCE UNITS RANGE LAB PBNP(LOINC) 0-900 pg/mL High N-Terminal 6134 proBNP Result Comment: NT-proBNP results of less than 300 pg/mL effectively rules out acute congestive heart failure with 99% negative predictive value. Performed By: #### CBC, ADIFF, ANEU, PBNP, MG, GFR, BMP #### [place] [address] MG Collected: 09/30/2018 Status: F Source: [facility] 4:05 [facility] REPOSITORY TYPE CODE TESTS RESULT OUT OF REFERENCE UNITS RANGE LAB MG(LOINC) 1.6-2.4 mg/dL Magnesium Lvl 2.2 Performed By: #### CBC, ADIFF, ANEU, PBNP, MG, GFR, BMP #### [place] [address] .GFR Collected: 09/30/2018 Status: F Source: [facility] [address] [place] [address] REPOSITORY TYPE CODE TESTS RESULT OUT OF REFERENCE UNITS RANGE LAB GFRAA(LOINC ml/min/1.73 ) sqm GFR 41 Sudanese Result Comment: GFR Population mean for , [...] ADIFF, ANEU, PBNP, MG, GFR, BMP #### [address] [address] BMP Collected: 09/30/2018 Status: F Source: [facility] 4:05 PM [facility]OUNDATION REPOSITORY TYPE CODE TESTS RESULT [...] ADIFF, ANEU, PBNP, MG, GFR, BMP #### [address] [address] .GFR Collected: 09/19/2018 Status: F Source: [facility] 10:07 AM [facility] REPOSITORY TYPE CODE TESTS RESULT OUT OF REFERENCE UNITS RANGE LAB GFRAA(LOINC ml/min/1.73 ) sqm GFR 43 Sudanese Result Comment: GFR Population mean for , [...] meters Performed By: #### GFR, CMP #### [facility] [address] [place] [address] CMP Collected: 09/19/2018 Status: F Source: [facility] 10:07 AM [facility] REPOSITORY TYPE CODE TESTS RESULT OUT OF [...] 21 Performed By: #### GFR, CMP #### [place] [address] BMP Collected: 09/10/2018 Status: F Source: [facility] 6:04 AM [facility] REPOSITORY TYPE CODE TESTS RESULT [...] 7.7 Performed By: #### BMP, GFR #### [address] [address] .GFR Collected: 09/10/2018 Status: F Source: [employer] 6:04 AM [facility] REPOSITORY TYPE CODE TESTS RESULT OUT OF REFERENCE UNITS RANGE LAB GFRAA(LOINC ml/min/1.73 ) sqm GFR >60 Sudanese Result Comment: GFR Population mean for , [...] meters Performed By: #### BMP, GFR #### [place] [address] US ABDOMEN FOR Observed: 09/09/2018 Status: F Source: [employer] [facility] 9:00 AM [facility] REPOSITORY ORIGINAL US ABDOMEN FOR [facility] CLINICAL [...] AM CBC Collected: 09/09/2018 Status: F Source: [facility] 5:42 AM [facility] REPOSITORY TYPE CODE TESTS RESULT OUT OF [...] CBC, ADIFF, ANEU, CMP, PBNP, GFR #### [place] [address] .AUTO DIFF Collected: 09/09/2018 Status: F Source: [facility] 5:42 AM [facility] REPOSITORY TYPE CODE TESTS RESULT OUT OF [...] CBC, ADIFF, ANEU, CMP, PBNP, GFR #### [place] [address] .NEUABS Collected: 09/09/2018 Status: F Source: [facility] 5:42 AM [facility] REPOSITORY TYPE CODE TESTS RESULT OUT OF REFERENCE UNITS RANGE LAB ANEU(LOINC) 2.25-8.10 10 3/mcL Neutrophil, 5.30 Absolute Performed By: #### CBC, ADIFF, ANEU, CMP, PBNP, GFR #### [place] [address] CMP Collected: 09/09/2018 Status: F Source: [facility] 5:42 AM [facility] REPOSITORY TYPE CODE TESTS RESULT OUT OF [...] CBC, ADIFF, ANEU, CMP, PBNP, GFR #### [address] [address] PBNP Collected: 09/09/2018 Status: F Source: [facility] 5:42 AM [facility] REPOSITORY TYPE CODE TESTS RESULT OUT OF REFERENCE UNITS RANGE LAB PBNP(LOINC) 0-900 pg/mL High N-Terminal 5825 proBNP Result Comment: NT-proBNP results of less than 300 pg/mL effectively rules out acute congestive heart failure with 99% negative predictive value. Performed By: #### CBC, ADIFF, ANEU, CMP, PBNP, GFR #### [address] [address] .GFR Collected: 09/09/2018 Status: F Source: [facility] 5:42 AM [facility] REPOSITORY TYPE CODE TESTS RESULT OUT OF REFERENCE UNITS RANGE LAB GFRAA(LOINC ml/min/1.73 ) sqm GFR 55 Sudanese Result Comment: GFR Population mean for , [...] CBC, ADIFF, ANEU, CMP, PBNP, GFR #### [address] [address] TROPI Collected: 09/09/2018 Status: F Source: [employer] 12:17 AM [facility] REPOSITORY TYPE CODE TESTS RESULT OUT OF [...] ECG changes may help assess possibility of IL. *Other non-acute coronary syndrome conditions such as CHF, myocarditis, pulmonary emboli, sepsis and cardiac surgery could result in myocardial damage and increased troponin levels. Performed By: #### TROPI #### [address] [address] TROPI Collected: 09/08/2018 Status: F Source: [employer] 7:25 PM [facility] REPOSITORY TYPE CODE TESTS RESULT OUT OF [...] ECG changes may help assess possibility of IL. *Other non-acute coronary syndrome conditions such as CHF, myocarditis, pulmonary emboli, sepsis and cardiac surgery could result in myocardial damage and increased troponin levels. Performed By: #### TROPI #### [address] [address] TSH Collected: 09/08/2018 Status: F Source: [facility] 7:25 PM [facility] REPOSITORY TYPE CODE TESTS RESULT OUT OF RANGE REFERENCE UNITS LAB TSH(LOINC) 0.360-3.740 mcIU/mL TSH 1.760 Result Comment: Please note as of 05/04/17 new pediatric reference intervals were added for this test. Performed By: #### TSH #### [place] [address] CBC Collected: 09/08/2018 Status: F Source: [facility] 11:29 AM [facility] REPOSITORY TYPE CODE TESTS RESULT OUT OF [...] CBC, ADIFF, ANEU, GFR, BMP, TROPI #### [address] [address] .AUTO DIFF Collected: 09/08/2018 Status: F Source: [facility] 11:29 AM [facility] REPOSITORY TYPE CODE TESTS RESULT OUT OF [...] CBC, ADIFF, ANEU, GFR, BMP, TROPI #### [place] [address] .NEUABS Collected: 09/08/2018 Status: F Source: [facility] 11:29 [place] [facility] REPOSITORY TYPE CODE TESTS RESULT OUT OF REFERENCE UNITS RANGE LAB ANEU(LOINC) 2.25-8.10 10 3/mcL Neutrophil, 5.40 Absolute Performed By: #### CBC, ADIFF, ANEU, GFR, BMP, TROPI #### [place] [address] .GFR Collected: 09/08/2018 Status: F Source: [facility] 11:29 [place] [facility] REPOSITORY TYPE CODE TESTS RESULT OUT OF REFERENCE UNITS RANGE LAB GFRAA(LOINC ml/min/1.73 ) sqm GFR >60 Sudanese Result Comment: GFR Population mean for , [...] CBC, ADIFF, ANEU, GFR, BMP, TROPI #### [address] [address] BMP Collected: 09/08/2018 Status: F Source: [facility] 11:29 AM [facility] REPOSITORY TYPE CODE TESTS RESULT [...] CBC, ADIFF, ANEU, GFR, BMP, TROPI #### [address] [address] TROPI Collected: 09/08/2018 Status: F Source: [facility] [employer] 11:29 AM [facility] REPOSITORY TYPE CODE TESTS RESULT OUT OF [...] ECG changes may help assess possibility of IL. *Other non-acute coronary syndrome conditions such as CHF, myocarditis, pulmonary emboli, sepsis and cardiac surgery could result in myocardial damage and increased troponin levels. Performed By: #### CBC, ADIFF, ANEU, GFR, BMP, TROPI #### [address] [address] XR CHEST 1 VIEW Observed: 09/08/2018 Status: F Source: [facility] [employer] 11:19 AM [facility] REPOSITORY ORIGINAL Chest one view 11:34 AM [...] AM TROPI Collected: 08/13/2018 Status: F Source: [facility] [employer] 7:42 AM [facility]PART[facility] REPOSITORY TYPE CODE TESTS RESULT OUT OF [...] ECG changes may help assess possibility of IL. *Other non-acute coronary syndrome conditions such as CHF, myocarditis, pulmonary emboli, sepsis and cardiac surgery could result in myocardial damage and increased troponin levels. Performed By: #### TROPI #### [address] [address] PBNP Collected: 08/13/2018 Status: F Source: [facility] 6:37 AM [facility] REPOSITORY TYPE CODE TESTS RESULT OUT OF REFERENCE UNITS RANGE LAB PBNP(LOINC) 0-900 pg/mL High N-Terminal 3200 proBNP Result Comment: NT-proBNP results of less than 300 pg/mL effectively rules out acute congestive heart failure with 99% negative predictive value. Performed By: #### PBNP #### [place] [id number] XR CHEST 2 VIEWS Observed: 08/13/2018 Status: F Source: [facility] 6:19 AM [facility]PART[facility] REPOSITORY ORIGINAL Clinical history: Chest pain. Vomiting. [...] AM CBC Collected: 08/13/2018 Status: F Source: [facility] 6:17 AM [facility]PART[facility] REPOSITORY TYPE CODE TESTS RESULT OUT OF [...] CBC, ADIFF, ANEU, GFR, CMP, TROPI #### [address] [address] .AUTO DIFF Collected: 08/13/2018 Status: F Source: [facility] 6:17 AM [facility]PART[facility] REPOSITORY TYPE CODE TESTS RESULT OUT OF [...] CBC, ADIFF, ANEU, GFR, CMP, TROPI #### [address] [address] .NEUABS Collected: 08/13/2018 Status: F Source: [facility] 6:17 AM [facility]PART[facility] REPOSITORY TYPE CODE TESTS RESULT OUT OF REFERENCE UNITS RANGE LAB ANEU(LOINC) 2.25-8.10 10 3/mcL Neutrophil, 6.80 Absolute Performed By: #### CBC, ADIFF, ANEU, GFR, CMP, TROPI #### [address] [address] .GFR Collected: 08/13/2018 Status: F Source: [facility] 6:17 AM [facility]PART[facility] REPOSITORY TYPE CODE TESTS RESULT OUT OF REFERENCE UNITS RANGE LAB GFRAA(LOINC ml/min/1.73 ) sqm GFR >60 Sudanese Result Comment: GFR Population mean for , [...] mL/min/1.73 square meters Performed By: #### CBC, ADVIVIANA, ANEU, GFR, CMP, TROPI #### [address] [address] CMP Collected: 08/13/2018 Status: F Source: [facility] 6:17 AM [facility]PART[facility] REPOSITORY TYPE CODE TESTS RESULT OUT OF [...] CBC, ADIFF, ANEU, GFR, CMP, TROPI #### [place] [address] TROPI Collected: 08/13/2018 Status: F Source: [facility] 6:17 AM [facility] REPOSITORY TYPE CODE TESTS [...] ECG changes may help assess possibility of IL. *Other non-acute coronary syndrome conditions such as CHF, myocarditis, pulmonary emboli, sepsis and cardiac surgery could result in myocardial damage and increased troponin levels. Performed By: #### CBC, ADIFF, ANEU, GFR, CMP, TROPI #### [address] [address] CBC Collected: 07/01/2018 Status: F Source: [facility] 3:15 AM [facility] REPOSITORY TYPE CODE TESTS RESULT OUT OF [...] #### CBC, ADIFF, ANEU, BMP, GFR #### [address] [address] .AUTO DIFF Collected: 07/01/2018 Status: F Source: [facility] 3:15 AM [facility] REPOSITORY TYPE CODE TESTS RESULT OUT OF [...] #### CBC, ADIFF, ANEU, BMP, GFR #### [place] [address] .NEUABS Collected: 07/01/2018 Status: F Source: [facility] 3:15 AM [facility] REPOSITORY TYPE CODE TESTS RESULT OUT OF REFERENCE UNITS RANGE LAB ANEU(LOINC) 2.25-8.10 10 3/mcL Neutrophil, 4.20 Absolute Performed By: #### CBC, ADIFF, ANEU, BMP, GFR #### [place] [address] BMP Collected: 07/01/2018 Status: F Source: [facility] 3:15 AM [facility]PART[facility] REPOSITORY TYPE CODE TESTS RESULT OUT OF [...] #### CBC, ADIFF, ANEU, BMP, GFR #### [place] [address] .GFR Collected: 07/01/2018 Status: F Source: [facility] 3:15 AM [facility]PART[facility] REPOSITORY TYPE CODE TESTS RESULT OUT OF REFERENCE UNITS RANGE LAB GFRAA(LOINC ml/min/1.73 ) sqm GFR 57 Sudanese Result Comment: GFR Population mean for , [...] #### CBC, ADIFF, ANEU, BMP, GFR #### [place] [address] CT HEAD OR BRAIN W/O Observed: 06/30/2018 Status: F Source: [place] [employer] CONTRAST 11:18 AM [facility] EM[facility]PARTMENT REPOSITORY ORIGINAL CT HEAD OR BRAIN W/O [...] By: Harini Gold MD Preliminary Report By: Clint Landrum MD Electronically Signed By: Harini Gold MD Dictated Date: 06/30/2018 11:34:28 AM Prelim Date: 06/30/2018 11:44:52 AM Sign Date: 06/30/2018 12:26:45 PM CBC Collected: 06/30/2018 Status: F Source: [facility] 4:35 AM [facility] REPOSITORY TYPE CODE TESTS RESULT OUT OF [...] #### CBC, ADIFF, ANEU, BMP, GFR #### [place] [address] .AUTO DIFF Collected: 06/30/2018 Status: F Source: [facility] 4:35 AM [facility]PART[facility] REPOSITORY TYPE CODE TESTS RESULT OUT OF [...] #### CBC, ADIFF, ANEU, BMP, GFR #### [place] [address] .NEUABS Collected: 06/30/2018 Status: F Source: [facility] 4:35 [place] [facility]PART[facility] REPOSITORY TYPE CODE TESTS RESULT OUT OF REFERENCE UNITS RANGE LAB ANEU(LOINC) 2.25-8.10 10 3/mcL Neutrophil, 7.90 Absolute Performed By: #### CBC, ADIFF, ANEU, BMP, GFR #### [place] [address] BMP Collected: 06/30/2018 Status: F Source: [facility] 4:35 [place] [facility] REPOSITORY TYPE CODE TESTS RESULT OUT OF [...] #### CBC, ADIFF, ANEU, BMP, GFR #### [place] [address] .GFR Collected: 06/30/2018 Status: F Source: [facility] 4:35 AM [facility] REPOSITORY TYPE CODE TESTS RESULT OUT OF REFERENCE UNITS RANGE LAB GFRAA(LOINC ml/min/1.73 ) sqm GFR 48 Sudanese Result Comment: GFR Population mean for , [...] #### CBC, ADIFF, ANEU, BMP, GFR #### [facility] [address] [place] [address] XR CHEST 2 VIEWS Observed: 06/29/2018 Status: F Source: [employer] 11:52 AM [facility]PART[facility] REPOSITORY ORIGINAL XR CHEST 2 VIEWS Clinical [...] PM CBC Collected: 06/29/2018 Status: F Source: [employer] 5:50 AM [facility]PARTMENT REPOSITORY TYPE CODE TESTS RESULT OUT OF [...] #### CBC, ADIFF, ANEU, BMP, GFR #### [facility] [address] [place] [address] .AUTO DIFF Collected: 06/29/2018 Status: F Source: [employer] 5:50 AM [facility]PARTMENT REPOSITORY TYPE CODE TESTS RESULT OUT OF [...] #### CBC, ADIFF, ANEU, BMP, GFR #### [place] [address] .NEUABS Collected: 06/29/2018 Status: F Source: [facility] 5:50 AM [facility]PART[facility] REPOSITORY TYPE CODE TESTS RESULT OUT OF REFERENCE UNITS RANGE LAB ANEU(LOINC) 2.25-8.10 10 3/mcL Neutrophil, 7.30 Absolute Performed By: #### CBC, ADIFF, ANEU, BMP, GFR #### [place] [address] BMP Collected: 06/29/2018 Status: F Source: [facility] 5:50 AM [facility]PARTMENT REPOSITORY TYPE CODE TESTS RESULT OUT OF [...] #### CBC, ADIFF, ANEU, BMP, GFR #### [address] [address] .GFR Collected: 06/29/2018 Status: F Source: [facility] 5:50 AM [facility] REPOSITORY TYPE CODE TESTS RESULT OUT OF REFERENCE UNITS RANGE LAB GFRAA(LOINC ml/min/1.73 ) sqm GFR 34 Sudanese Result Comment: GFR Population mean for , [...] #### CBC, ADIFF, ANEU, BMP, GFR #### [address] [address] DIMER Collected: 06/28/2018 Status: F Source: [facility] 4:41 PM [facility]PART[facility] REPOSITORY TYPE CODE TESTS RESULT OUT OF [...] performed accordingly. Performed By: #### DIMER #### [place] [address] NM PULMONARY PERFUSION Observed: 06/28/2018 Status: F Source: [employer] [facility] 1:04 PM [facility] REPOSITORY ORIGINAL [place] PULMONARY PERFUSION W/ VENT [...] 2 VIEWS Observed: 06/28/2018 Status: F Source: [employer] 12:37 PM [facility] EM[facility]PART[facility] REPOSITORY ORIGINAL XR CHEST 2 VIEWS Clinical [...] PM BMP Collected: 06/28/2018 Status: F Source: [facility] 5:51 AM [facility]PARTMENT REPOSITORY TYPE CODE TESTS RESULT OUT OF [...] #### BMP, GFR, CBC, ADIFF, ANEU #### [place] [address] .GFR Collected: 06/28/2018 Status: F Source: [facility] 5:51 AM [facility]PART[facility] REPOSITORY TYPE CODE TESTS RESULT OUT OF REFERENCE UNITS RANGE LAB GFRAA(LOINC ml/min/1.73 ) sqm GFR 44 Sudanese Result Comment: GFR Population mean for , [...] #### BMP, GFR, CBC, ADIFF, ANEU #### [place] [address] CBC Collected: 06/28/2018 Status: F Source: [facility] 5:51 AM [facility] REPOSITORY TYPE CODE TESTS [...] #### BMP, GFR, CBC, ADIFF, ANEU #### [place] [address] .AUTO DIFF Collected: 06/28/2018 Status: F Source: [facility] 5:51 AM [facility]PARTMENT REPOSITORY TYPE CODE TESTS RESULT OUT OF [...] #### BMP, GFR, CBC, ADIFF, ANEU #### [place] [address] .NEUABS Collected: 06/28/2018 Status: F Source: [facility] 5:51 AM [facility]PARTMENT REPOSITORY TYPE CODE TESTS RESULT OUT OF REFERENCE UNITS RANGE LAB ANEU(LOINC) 2.25-8.10 10 3/mcL Neutrophil, 5.80 Absolute Performed By: #### BMP, GFR, CBC, ADIFF, ANEU #### [place] [address] TROPI Collected: 06/27/2018 Status: F Source: [facility] 10:59 AM [facility]PARTMENT REPOSITORY TYPE CODE TESTS RESULT OUT OF [...] ECG changes may help assess possibility of IL. *Other non-acute coronary syndrome conditions such as CHF, myocarditis, pulmonary emboli, sepsis and cardiac surgery could result in myocardial damage and increased troponin levels. Performed By: #### TROPI #### [address] [address] CBC Collected: 06/27/2018 Status: F Source: [facility] 4:58 AM [facility]PART[facility] REPOSITORY TYPE CODE TESTS RESULT OUT OF [...] #### CBC, ADIFF, ANEU, BMP, GFR #### [address] [address] .AUTO DIFF Collected: 06/27/2018 Status: F Source: [facility] 4:58 AM [facility]PART[facility] REPOSITORY TYPE CODE TESTS RESULT OUT OF [...] #### CBC, ADIFF, ANEU, BMP, GFR #### [address] [address] .NEUABS Collected: 06/27/2018 Status: F Source: [facility] 4:58 AM [facility] DEPART[facility] REPOSITORY TYPE CODE TESTS RESULT OUT OF REFERENCE UNITS RANGE LAB ANEU(LOINC) 2.25-8.10 10 3/mcL Neutrophil, 6.30 Absolute Performed By: #### CBC, ADIFF, ANEU, BMP, GFR #### [place] [address] BMP Collected: 06/27/2018 Status: F Source: [facility] 4:58 AM [facility]PART[facility] REPOSITORY TYPE CODE TESTS RESULT OUT OF [...] Low Calcium Lvl 8.1 Performed By: #### CBC, ADIFF, ANEU, BMP, GFR #### [address] [address] .GFR Collected: 06/27/2018 Status: F Source: [facility] 4:58 AM [facility]PART[facility] REPOSITORY TYPE CODE TESTS RESULT OUT OF REFERENCE UNITS RANGE LAB GFRAA(LOINC ml/min/1.73 ) sqm GFR >60 Sudanese Result Comment: GFR Population mean for , [...] #### CBC, ADIFF, ANEU, BMP, GFR #### [address] [address] TROPI Collected: 06/27/2018 Status: F Source: [facility] 4:58 AM [facility]PART[facility] REPOSITORY TYPE CODE TESTS RESULT OUT OF [...] ECG changes may help assess possibility of IL. *Other non-acute coronary syndrome conditions such as CHF, myocarditis, pulmonary emboli, sepsis and cardiac surgery could result in myocardial damage and increased troponin levels. Performed By: #### TROPI #### [address] [address] TROPI Collected: 06/26/2018 Status: F Source: [facility] 11:07 [facility] REPOSITORY TYPE CODE TESTS RESULT OUT OF [...] ECG changes may help assess possibility of IL. *Other non-acute coronary syndrome conditions such as CHF, myocarditis, pulmonary emboli, sepsis and cardiac surgery could result in myocardial damage and increased troponin levels. Performed By: #### TROPI #### [address] [address] CBC Collected: 06/26/2018 Status: F Source: [facility] 5:03 [facility] REPOSITORY TYPE CODE TESTS RESULT OUT OF [...] ADIFF, ANEU, GFR, BMP, TROPI, PBNP #### [place] [address] .AUTO DIFF Collected: 06/26/2018 Status: F Source: [facility] 5:03 PM [facility]PART[facility] REPOSITORY TYPE CODE TESTS RESULT OUT OF [...] ADIFF, ANEU, GFR, BMP, TROPI, PBNP #### [place] [address] .NEUABS Collected: 06/26/2018 Status: F Source: [facility] 5:03 PM [facility]PART[facility] REPOSITORY TYPE CODE TESTS RESULT OUT OF REFERENCE UNITS RANGE LAB ANEU(LOINC) 2.25-8.10 10 3/mcL Neutrophil, 6.50 Absolute Performed By: #### CBC, ADIFF, ANEU, GFR, BMP, TROPI, PBNP #### [place] [address] .GFR Collected: 06/26/2018 Status: F Source: [facility] 5:03 PM [facility]PARTMENT REPOSITORY TYPE CODE TESTS RESULT OUT OF REFERENCE UNITS RANGE LAB GFRAA(LOINC ml/min/1.73 ) sqm GFR 55 Sudanese Result Comment: GFR Population mean for , [...] ADIFF, ANEU, GFR, BMP, TROPI, PBNP #### [place] [address] BMP Collected: 06/26/2018 Status: F Source: [facility] 5:03 PM [facility] REPOSITORY TYPE CODE TESTS RESULT [...] ADIFF, ANEU, GFR, BMP, TROPI, PBNP #### [address] [address] TROPI Collected: 06/26/2018 Status: F Source: [facility] 5:03 [facility] REPOSITORY TYPE CODE TESTS RESULT OUT OF [...] ECG changes may help assess possibility of [place]. *Other non-acute coronary syndrome conditions such as CHF, myocarditis, pulmonary emboli, sepsis and cardiac surgery could result in myocardial damage and increased troponin levels. Performed By: #### CBC, ADIFF, ANEU, GFR, BMP, TROPI, PBNP #### [address] [address] PBNP Collected: 06/26/2018 Status: F Source: [facility] 5:03 [facility] REPOSITORY TYPE CODE TESTS RESULT OUT OF REFERENCE UNITS RANGE LAB PBNP(LOINC) 0-900 pg/mL High N-Terminal 4921 proBNP Result Comment: NT-proBNP results of less than 300 pg/mL effectively rules out acute congestive heart failure with 99% negative predictive value. Performed By: #### CBC, ADIFF, ANEU, GFR, BMP, TROPI, PBNP #### [address] [address] XR CHEST 1 VIEW Observed: 06/26/2018 Status: F Source: [facility] 4:26 PM [facility] REPOSITORY ORIGINAL XR CHEST 1 VIEW CLINICAL [...] 5:14:43 PM Sign Date: 06/26/2018 5:18:51 PM BMP Collected: 05/30/2018 Status: F Source: [facility] 10:37 AM [facility]PART[facility] REPOSITORY TYPE CODE TESTS RESULT OUT OF [...] 8.5 Performed By: #### BMP, GFR #### [place] [address] .GFR Collected: 05/30/2018 Status: F Source: [facility] 10:37 AM [facility] EMERGENC[facility] DEPARTMENT REPOSITORY TYPE CODE TESTS RESULT OUT OF REFERENCE UNITS RANGE LAB GFRAA(LOINC ml/min/1.73 ) sqm GFR >60 Sudanese Result Comment: GFR Population mean for , [...] meters Performed By: #### BMP, GFR #### [place] [address] .GFR Collected: 05/29/2018 Status: F Source: [facility] 5:05 AM [facility] REPOSITORY TYPE CODE TESTS RESULT OUT OF REFERENCE UNITS RANGE LAB GFRAA(LOINC ml/min/1.73 ) sqm GFR >60 Sudanese Result Comment: GFR Population mean for , [...] #### GFR, CMP, CBC, ADIFF, ANEU #### [place] [address] CMP Collected: 05/29/2018 Status: F Source: [facility] 5:05 AM [facility] REPOSITORY TYPE CODE TESTS RESULT OUT OF [...] #### GFR, CMP, CBC, ADIFF, ANEU #### [address] [address] CBC Collected: 05/29/2018 Status: F Source: [facility] 5:05 [place] [facility] REPOSITORY TYPE CODE TESTS RESULT OUT OF [...] #### GFR, CMP, CBC, ADIFF, ANEU #### [address] [address] .AUTO DIFF Collected: 05/29/2018 Status: F Source: [facility] 5:05 AM [facility]PART[facility] REPOSITORY TYPE CODE TESTS RESULT OUT OF [...] #### GFR, CMP, CBC, ADIFF, ANEU #### [place] [address] .NEUABS Collected: 05/29/2018 Status: F Source: [facility] 5:05 AM [facility]PARTMENT REPOSITORY TYPE CODE TESTS RESULT OUT OF REFERENCE UNITS RANGE LAB ANEU(LOINC) 2.25-8.10 10 3/mcL Neutrophil, 5.70 Absolute Performed By: #### GFR, CMP, CBC, ADIFF, ANEU #### [place] [address] K Collected: 05/28/2018 Status: F Source: [facility] 6:28 AM [facility] EM[facility]GENC[facility] DEPARTMENT REPOSITORY TYPE CODE TESTS RESULT OUT OF REFERENCE UNITS RANGE LAB K(LOINC) 3.5-5.0 mEq/L Potassium Level 4.6 Performed By: #### K #### [place] [address] TROPI Collected: 05/27/2018 Status: F Source: [facility] [employer] 11:54 PM [facility] EMERGENC[facility] DEPARTMENT REPOSITORY TYPE CODE TESTS RESULT OUT OF [...] ECG changes may help assess possibility of [place]. *Other non-acute coronary syndrome conditions such as CHF, myocarditis, pulmonary emboli, sepsis and cardiac surgery could result in myocardial damage and increased troponin levels. Performed By: #### TROPI #### [facility] [address] [place] [address] NM MYOCARDIAL SPECT Observed: 05/27/2018 Status: F Source: [facility] STRESS/REST 10:24 PM [facility] REPOSITORY ORIGINAL NM MYOCARDIAL SPECT STRESS/REST CLINICAL [...] AM TROPI Collected: 05/27/2018 Status: F Source: [facility] 9:11 PM [facility] EMER[facility]ENC[facility]MENT REPOSITORY TYPE CODE TESTS RESULT OUT OF [...] ECG changes may help assess possibility of [place]. *Other non-acute coronary syndrome conditions such as CHF, myocarditis, pulmonary emboli, sepsis and cardiac surgery could result in myocardial damage and increased troponin levels. Performed By: #### TROPI #### [facility] [address] [place] [address] XR CHEST 2 VIEWS Observed: 05/27/2018 Status: F Source: [facility] 7:33 PM [facility] EM[facility] REPOSITORY ORIGINAL XR CHEST 2 VIEWS PA [...] PM CBC Collected: 05/27/2018 Status: F Source: [facility] 5:50 PM [facility] EMERGENC[facility]PARTMENT REPOSITORY TYPE CODE TESTS RESULT OUT OF [...] ADIFF, ANEU, BMP, GFR, TROPI, PBNP #### [address] [address] .AUTO DIFF Collected: 05/27/2018 Status: F Source: [facility] 5:50 [facility] REPOSITORY TYPE CODE TESTS RESULT OUT OF [...] ADIFF, ANEU, BMP, GFR, TROPI, PBNP #### [address] [address] .NEUABS Collected: 05/27/2018 Status: F Source: [facility] 5:50 PM [facility] EMERGENC[facility]PARTMENT REPOSITORY TYPE CODE TESTS RESULT OUT OF REFERENCE UNITS RANGE LAB ANEU(LOINC) 2.25-8.10 10 3/mcL Neutrophil, 6.50 Absolute Performed By: #### CBC, ADIFF, ANEU, BMP, GFR, TROPI, PBNP #### [address] [address] BMP Collected: 05/27/2018 Status: F Source: [facility] 5:50 PM [facility] EMERGENC[facility]PARTMENT REPOSITORY TYPE CODE TESTS RESULT OUT OF [...] ADIFF, ANEU, BMP, GFR, TROPI, PBNP #### [address] [address] .GFR Collected: 05/27/2018 Status: F Source: [facility] 5:50 PM [facility] EMERGENC[facility] DEPARTMENT REPOSITORY TYPE CODE TESTS RESULT OUT OF REFERENCE UNITS RANGE LAB GFRAA(LOINC ml/min/1.73 ) sqm GFR 53 Sudanese Result Comment: GFR Population mean for , [...] ADIFF, ANEU, BMP, GFR, TROPI, PBNP #### [address] [address] TROPI Collected: 05/27/2018 Status: F Source: [employer] 5:50 [facility] REPOSITORY TYPE CODE TESTS RESULT OUT OF [...] ECG changes may help assess possibility of [place]. *Other non-acute coronary syndrome conditions such as CHF, myocarditis, pulmonary emboli, sepsis and cardiac surgery could result in myocardial damage and increased troponin levels. Performed By: #### CBC, ADIFF, ANEU, BMP, GFR, TROPI, PBNP #### [address] [address] PBNP Collected: 05/27/2018 Status: F Source: [employer] [facility] 5:50 PM [facility] EMERGENC[facility]PARTMENT REPOSITORY TYPE CODE TESTS RESULT OUT OF REFERENCE UNITS RANGE LAB PBNP(LOINC) 0-900 pg/mL High N-Terminal 9309 proBNP Result Comment: NT-proBNP results of less than 300 pg/mL effectively rules out acute congestive heart failure with 99% negative predictive value. Performed By: #### CBC, ADIFF, ANEU, BMP, GFR, TROPI, PBNP #### [address] [address] .GFR Collected: 05/23/2018 Status: F Source: [facility] 3:03 PM [facility] REPOSITORY TYPE CODE TESTS RESULT OUT OF REFERENCE UNITS RANGE LAB GFRAA(LOINC ml/min/1.73 ) sqm GFR 57 Sudanese Result Comment: GFR Population mean for , [...] Performed By: #### GFR, CMP, PBNP #### [address] [address] CMP Collected: 05/23/2018 Status: F Source: [facility] 3:03 PM [facility] EM[facility]PART[facility] REPOSITORY TYPE CODE TESTS RESULT OUT OF [...] Performed By: #### GFR, CMP, PBNP #### [place] [address] PBNP Collected: 05/23/2018 Status: F Source: [facility] 3:03 PM [facility] EMERGENC[facility] DEPARTMENT REPOSITORY TYPE CODE TESTS RESULT OUT OF REFERENCE UNITS RANGE LAB PBNP(LOINC) 0-900 pg/mL High N-Terminal [address] proBNP Result Comment: NT-proBNP results of less than 300 pg/mL effectively rules out acute congestive heart failure with 99% negative predictive value. Performed By: #### GFR, CMP, PBNP #### [address] [address] BMP Collected: 05/12/2018 Status: F Source: [facility] 4:22 AM [facility] EMERGENC[facility] DEPARTMENT REPOSITORY TYPE CODE TESTS RESULT OUT OF [...] 8.3 Performed By: #### BMP, GFR #### [address] [address] .GFR Collected: 05/12/2018 Status: F Source: [facility] 4:22 AM [facility] EMERGENC[facility] DEPARTMENT REPOSITORY TYPE CODE TESTS RESULT OUT OF REFERENCE UNITS RANGE LAB GFRAA(LOINC ml/min/1.73 ) sqm GFR >60 Sudanese Result Comment: GFR Population mean for , [...] meters Performed By: #### BMP, GFR #### [place] [address] Observed: 05/07/2018 Status: F Source: [facility] 8:13 PM [facility] EMERG[facility]MENT REPOSITORY . MICRO - Microbiology PROCEDURE: Clostridium [...] values are highly dependent on prevalence. The BD MAX C. difficile PCR Assay performance may vary depending on the prevalence and population tested. Performing Locations *1: This test was performed at: [address], [address] [place] [address] Performed By: #### CDPCR #### [address] [address] BMP Collected: 05/06/2018 Status: F Source: [facility] 9:09 AM [facility] EMERGENC[facility] DEPARTMENT REPOSITORY TYPE CODE TESTS RESULT OUT OF [...] Low Calcium Lvl 7.6 Performed By: #### BMP, GFR #### [facility] [address] [place] [address] .GFR Collected: 05/06/2018 Status: F Source: [facility] 9:09 AM [facility] REPOSITORY TYPE CODE TESTS RESULT OUT OF REFERENCE UNITS RANGE LAB GFRAA(LOINC ml/min/1.73 ) sqm GFR >60 Sudanese Result Comment: GFR Population mean for , [...] meters Performed By: #### BMP, GFR #### [address] [address] CBC Collected: 04/30/2018 Status: F Source: [facility] 5:53 AM [facility] EMERGENC[facility] DEPARTMENT REPOSITORY TYPE CODE TESTS RESULT OUT OF [...] #### CBC, ADIFF, ANEU, GFR, BMP #### [address] [address] .AUTO DIFF Collected: 04/30/2018 Status: F Source: [facility] 5:53 AM [facility] EMERGENC[facility] DEPARTMENT REPOSITORY TYPE CODE TESTS RESULT OUT OF [...] #### CBC, ADIFF, ANEU, GFR, BMP #### [address] [address] .NEUABS Collected: 04/30/2018 Status: F Source: [place] [employer] 5:53 AM [facility] EMERGENC[facility] DEPARTMENT REPOSITORY TYPE CODE TESTS RESULT OUT OF REFERENCE UNITS RANGE LAB ANEU(LOINC) 2.25-8.10 10 3/mcL Neutrophil, 7.40 Absolute Performed By: #### CBC, ADIFF, ANEU, GFR, BMP #### [place] [id number] .GFR Collected: 04/30/2018 Status: F Source: [facility] [employer] 5:53 [place] EMERGENCY DEPARTMENT REPOSITORY TYPE CODE TESTS RESULT OUT OF REFERENCE UNITS RANGE LAB GFRAA(LOINC ml/min/1.73 ) sqm GFR >60 Sudanese Result Comment: GFR Population mean for , [...] #### CBC, ADIFF, ANEU, GFR, BMP #### [address] [address] BMP Collected: 04/30/2018 Status: F Source: [facility] 5:53 AM [facility] EMERGENC[facility] DEPARTMENT REPOSITORY TYPE CODE TESTS RESULT OUT OF [...] #### CBC, ADIFF, ANEU, GFR, BMP #### [address] [address] BMP Collected: 04/26/2018 Status: F Source: [facility] 6:09 AM [facility] EMERGENC[facility] DEPARTMENT REPOSITORY TYPE CODE TESTS RESULT OUT OF [...] 8.5 Performed By: #### BMP, GFR #### [place] [address] .GFR Collected: 04/26/2018 Status: F Source: [facility] 6:09 AM [facility] REPOSITORY TYPE CODE TESTS RESULT OUT OF REFERENCE UNITS RANGE LAB GFRAA(LOINC ml/min/1.73 ) sqm GFR >60 Sudanese Result Comment: GFR Population mean for , [...] meters Performed By: #### BMP, GFR #### [place] [address] XR SPINE LUMBAR Observed: 04/25/2018 Status: F Source: [facility] AP/LAT 11:30 AM [facility] EMERGENC[facility]PARTMENT REPOSITORY ORIGINAL XR SPINE LUMBAR AP/LAT CLINICAL [...] PM CBC Collected: 04/25/2018 Status: F Source: [facility] 6:15 AM [facility] EMERGENC[facility] DEPARTMENT REPOSITORY TYPE CODE TESTS RESULT OUT OF [...] #### CBC, ADIFF, ANEU, BMP, GFR #### [place] [address] .AUTO DIFF Collected: 04/25/2018 Status: F Source: [facility] 6:15 AM [facility] EMERGENC[facility] DEPARTMENT REPOSITORY TYPE CODE TESTS RESULT OUT OF [...] #### CBC, ADIFF, ANEU, BMP, GFR #### [place] [address] .NEUABS Collected: 04/25/2018 Status: F Source: [facility] 6:15 AM [facility] EMERGENC[facility] DEPARTMENT REPOSITORY TYPE CODE TESTS RESULT OUT OF REFERENCE UNITS RANGE LAB ANEU(LOINC) 2.25-8.10 10 3/mcL Neutrophil, 4.70 Absolute Performed By: #### CBC, ADIFF, ANEU, BMP, GFR #### [place] [address] BMP Collected: 04/25/2018 Status: F Source: [facility] 6:15 AM [facility] EMERGENC[facility] DEPARTMENT REPOSITORY TYPE CODE TESTS RESULT OUT OF [...] #### CBC, ADIFF, ANEU, BMP, GFR #### [facility] [address] [place] [address] .GFR Collected: 04/25/2018 Status: F Source: [facility] 6:15 AM [facility] REPOSITORY TYPE CODE TESTS RESULT OUT OF REFERENCE UNITS RANGE LAB GFRAA(LOINC ml/min/1.73 ) sqm GFR >60 Sudanese Result Comment: GFR Population mean for , [...] #### CBC, ADIFF, ANEU, BMP, GFR #### [address] [address] CBC Collected: 04/24/2018 Status: F Source: [facility] 8:17 AM [facility] EMERGENC[facility] DEPARTMENT REPOSITORY TYPE CODE TESTS RESULT OUT OF [...] #### CBC, ADIFF, ANEU, BMP, GFR #### [address] [address] .AUTO DIFF Collected: 04/24/2018 Status: F Source: [facility] 8:17 AM [facility] EMERGENC[facility] DEPARTMENT REPOSITORY TYPE CODE TESTS RESULT OUT OF [...] #### CBC, ADIFF, ANEU, BMP, GFR #### [place] [address] .NEUABS Collected: 04/24/2018 Status: F Source: [facility] 8:17 AM [facility] EMERGENC[facility] DEPARTMENT REPOSITORY TYPE CODE TESTS RESULT OUT OF REFERENCE UNITS RANGE LAB ANEU(LOINC) 2.25-8.10 10 3/mcL Neutrophil, 6.70 Absolute Performed By: #### CBC, ADIFF, ANEU, BMP, GFR #### [place] [address] BMP Collected: 04/24/2018 Status: F Source: [facility] 8:17 AM [facility] EMERGENC[facility] DEPARTMENT REPOSITORY TYPE CODE TESTS RESULT OUT OF [...] #### CBC, ADIFF, ANEU, BMP, GFR #### [place] [address] .GFR Collected: 04/24/2018 Status: F Source: [facility] 8:17 AM [facility] EMERGENC[facility] DEPARTMENT REPOSITORY TYPE CODE TESTS RESULT OUT OF REFERENCE UNITS RANGE LAB GFRAA(LOINC ml/min/1.73 ) sqm GFR >60 Sudanese Result Comment: GFR Population mean for , [...] #### CBC, ADIFF, ANEU, BMP, GFR #### [place] [address] CBC Collected: 04/23/2018 Status: F Source: [facility] 4:29 AM [facility] REPOSITORY TYPE CODE TESTS RESULT [...] #### CBC, ADIFF, ANEU, BMP, GFR #### [place] [address] .AUTO DIFF Collected: 04/23/2018 Status: F Source: [facility] 4:29 AM [facility] EMERGENC[facility] DEPARTMENT REPOSITORY TYPE CODE TESTS RESULT OUT OF [...] #### CBC, ADIFF, ANEU, BMP, GFR #### [place] [address] .NEUABS Collected: 04/23/2018 Status: F Source: [facility] 4:29 AM [facility] EMERGENC[facility] DEPARTMENT REPOSITORY TYPE CODE TESTS RESULT OUT OF REFERENCE UNITS RANGE LAB ANEU(LOINC) 2.25-8.10 10 3/mcL Neutrophil, 4.50 Absolute Performed By: #### CBC, ADIFF, ANEU, BMP, GFR #### [place] [address] BMP Collected: 04/23/2018 Status: F Source: [facility] 4:29 AM [facility] EMERGENC[facility] DEPARTMENT REPOSITORY TYPE CODE TESTS RESULT OUT OF [...] Low Calcium Lvl 8.1 Performed By: #### CBC, ADIFF, ANEU, BMP, GFR #### [place] [address] .GFR Collected: 04/23/2018 Status: F Source: [facility] 4:29 AM [facility] REPOSITORY TYPE CODE TESTS RESULT OUT OF REFERENCE UNITS RANGE LAB GFRAA(LOINC ml/min/1.73 ) sqm GFR 56 Sudanese Result Comment: GFR Population mean for , [...] #### CBC, ADIFF, ANEU, BMP, GFR #### [address] [address] XR CHEST 2 VIEWS Observed: 04/22/2018 Status: F Source: [facility] 10:45 AM [facility] EMER[facility]PART[facility] REPOSITORY ORIGINAL XR CHEST 2 VIEWS CLINICAL [...] AM FERR Collected: 04/22/2018 Status: F Source: [facility] [employer] 9:19 AM [facility] EMER[facility]ENC[facility]PART[facility] REPOSITORY TYPE CODE TESTS RESULT OUT OF REFERENCE UNITS RANGE LAB FERR(LOINC) 26-388 ng/mL Ferritin 51 Performed By: #### FERR, FOL, FES, B12 #### [address] [address] FOL Collected: 04/22/2018 Status: F Source: [facility] 9:19 AM [facility] EMERG[facility]PART[facility] REPOSITORY TYPE CODE TESTS RESULT OUT OF REFERENCE UNITS RANGE LAB FOL(LOINC) 1.1-20.0 ng/mL Folate 15.7 Performed By: #### FERR, FOL, FES, B12 #### [place] [id number] FES Collected: 04/22/2018 Status: F Source: [facility] 9:19 AM [facility] EMERGENC[facility] DEPARTMENT REPOSITORY TYPE CODE TESTS RESULT OUT OF RANGE REFERENCE UNITS LAB FE(LOINC) 49-181 mcg/dL Low Iron 20 LAB IBC(LOINC) 250-500 mcg/dL TIBC 282 LAB FESAT(LOINC % ) Iron Sat 7 Performed By: #### FERR, FOL, FES, B12 #### [place] [address] B12 Collected: 04/22/2018 Status: F Source: [facility] 9:19 AM [facility] EMERGENC[facility] DEPARTMENT REPOSITORY TYPE CODE TESTS RESULT OUT OF REFERENCE UNITS RANGE LAB B12(LOINC) 211-911 pg/mL Vitamin B12 465 Lvl Performed By: #### FERR, FOL, FES, B12 #### [place] [address] PBNP Collected: 04/22/2018 Status: F Source: [facility] 9:19 AM [facility] EMERGENC[facility] DEPARTMENT REPOSITORY TYPE CODE TESTS RESULT OUT OF REFERENCE UNITS RANGE LAB PBNP(LOINC) 0-900 pg/mL High N-Terminal 5429 proBNP Result Comment: NT-proBNP results of less than 300 pg/mL effectively rules out acute congestive heart failure with 99% negative predictive value. Performed By: #### PBNP #### [place] [address] CBC Collected: 04/22/2018 Status: F Source: [facility] 5:05 AM [facility] EMERGENC[facility] DEPARTMENT REPOSITORY TYPE CODE TESTS RESULT OUT OF [...] CBC, ADIFF, ANEU, BMP, TSH, GFR #### [address] [address] .AUTO DIFF Collected: 04/22/2018 Status: F Source: [facility] 5:05 AM [facility] EMERGENC[facility] DEPARTMENT REPOSITORY TYPE CODE TESTS RESULT OUT OF [...] CBC, ADIFF, ANEU, BMP, TSH, GFR #### [place] [address] .NEUABS Collected: 04/22/2018 Status: F Source: [facility] 5:05 AM [facility] EMERGENC[facility] DEPARTMENT REPOSITORY TYPE CODE TESTS RESULT OUT OF REFERENCE UNITS RANGE LAB ANEU(LOINC) 2.25-8.10 10 3/mcL Neutrophil, 6.70 Absolute Performed By: #### CBC, ADIFF, ANEU, BMP, TSH, GFR #### [address] [address] BMP Collected: 04/22/2018 Status: F Source: [facility] 5:05 AM [facility] EMERGENC[facility] DEPARTMENT REPOSITORY TYPE CODE TESTS RESULT OUT OF [...] CBC, ADIFF, ANEU, BMP, TSH, GFR #### [place] [id number] TSH Collected: 04/22/2018 Status: F Source: [employer] 5:05 [facility] REPOSITORY TYPE CODE TESTS RESULT OUT OF RANGE REFERENCE UNITS LAB TSH(LOINC) 0.360-3.740 mcIU/mL TSH 1.540 Result Comment: Please note ? as of 05/04/17 new pediatric reference intervals were added for this test. Performed By: #### CBC, ADIFF, ANEU, BMP, TSH, GFR #### [address] [address] .GFR Collected: 04/22/2018 Status: F Source: [employer] 5:05 [employer] REPOSITORY TYPE CODE TESTS RESULT OUT OF REFERENCE UNITS RANGE LAB GFRAA(LOINC ml/min/1.73 ) sqm GFR 39 Sudanese Result Comment: GFR Population mean for , [...] CBC, ADIFF, ANEU, BMP, TSH, GFR #### [place] [address] NM PULMONARY PERFUSION Observed: 04/21/2018 Status: F Source: [employer] W/ [facility] 6:36 PM [facility] REPOSITORY ORIGINAL NM PULMONARY PERFUSION W/ VENT [...] 2 VIEWS Observed: 04/21/2018 Status: F Source: [employer] 6:00 PM [facility] REPOSITORY ORIGINAL XR CHEST 2 VIEWS CLINICAL [...] PM CBC Collected: 04/21/2018 Status: F Source: [employer] 4:13 AM [facility] EMER[facility]PART[facility] REPOSITORY TYPE CODE TESTS RESULT OUT OF [...] #### CBC, ADIFF, ANEU, BMP, GFR #### [place] [address] .AUTO DIFF Collected: 04/21/2018 Status: F Source: [facility] 4:13 AM [facility] EM[facility]PARTMENT REPOSITORY TYPE CODE TESTS RESULT OUT OF [...] #### CBC, ADIFF, ANEU, BMP, GFR #### [place] [address] .NEUABS Collected: 04/21/2018 Status: F Source: [facility] 4:13 AM [facility] EMERGENC[facility] DEPARTMENT REPOSITORY TYPE CODE TESTS RESULT OUT OF REFERENCE UNITS RANGE LAB ANEU(LOINC) 2.25-8.10 10 3/mcL Neutrophil, 6.40 Absolute Performed By: #### CBC, ADIFF, ANEU, BMP, GFR #### [place] [address] BMP Collected: 04/21/2018 Status: F Source: [facility] 4:13 AM [facility] EMERGENC[facility] DEPARTMENT REPOSITORY TYPE CODE TESTS RESULT OUT OF [...] #### CBC, ADIFF, ANEU, BMP, GFR #### [facility] [address] [place] [address] .GFR Collected: 04/21/2018 Status: F Source: [facility] 4:13 AM [facility] REPOSITORY TYPE CODE TESTS RESULT OUT OF REFERENCE UNITS RANGE LAB GFRAA(LOINC ml/min/1.73 ) sqm GFR 55 Sudanese Result Comment: GFR Population mean for , [...] #### CBC, ADIFF, ANEU, BMP, GFR #### [address] [address] TROPI Collected: 04/20/2018 Status: F Source: [facility] 8:07 PM [facility] EMERGENC[facility]PARTMENT REPOSITORY TYPE CODE TESTS RESULT OUT OF [...] ECG changes may help assess possibility of [place]. *Other non-acute coronary syndrome conditions such as CHF, myocarditis, pulmonary emboli, sepsis and cardiac surgery could result in myocardial damage and increased troponin levels. Performed By: #### TROPI #### [address] [address] TROPI Collected: 04/20/2018 Status: F Source: [facility] 3:13 PM [facility] EMERGENC[facility]PARTMENT REPOSITORY TYPE CODE TESTS RESULT OUT OF [...] ECG changes may help assess possibility of [place]. *Other non-acute coronary syndrome conditions such as CHF, myocarditis, pulmonary emboli, sepsis and cardiac surgery could result in myocardial damage and increased troponin levels. Performed By: #### TROPI #### [address] [address] TROPI Collected: 04/20/2018 Status: F Source: [facility] 7:01 AM [facility] REPOSITORY TYPE CODE TESTS RESULT [...] ECG changes may help assess possibility of [place]. *Other non-acute coronary syndrome conditions such as CHF, myocarditis, pulmonary emboli, sepsis and cardiac surgery could result in myocardial damage and increased troponin levels. Performed By: #### TROPI #### [address] [address] TROPI Collected: 04/20/2018 Status: F Source: [employer] 3:06 AM [facility] EMERG[facility]PARTMENT REPOSITORY TYPE CODE TESTS RESULT OUT OF [...] ECG changes may help assess possibility of [place]. *Other non-acute coronary syndrome conditions such as CHF, myocarditis, pulmonary emboli, sepsis and cardiac surgery could result in myocardial damage and increased troponin levels. Performed By: #### TROPI #### [address] [address] XR CHEST 1 VIEW Observed: 04/20/2018 Status: F Source: [employer] 2:28 AM [facility] EMERGENC[facility] DEPARTMENT REPOSITORY ORIGINAL XR CHEST 1 VIEW Clinical [...] AM CBC Collected: 04/20/2018 Status: F Source: [facility] 1:00 AM [facility] EM[facility]PARTMENT REPOSITORY TYPE CODE TESTS RESULT OUT OF [...] CBC, ADIFF, ANEU, BMP, GFR, TROPI #### [place] [address] .AUTO DIFF Collected: 04/20/2018 Status: F Source: [facility] 1:00 AM [facility] EMERGENC[facility] DEPARTMENT REPOSITORY TYPE CODE TESTS RESULT OUT OF [...] CBC, ADIFF, ANEU, BMP, GFR, TROPI #### [address] [address] .NEUABS Collected: 04/20/2018 Status: F Source: [facility] 1:00 AM [facility] EMERGENC[facility] DEPARTMENT REPOSITORY TYPE CODE TESTS RESULT OUT OF REFERENCE UNITS RANGE LAB ANEU(LOINC) 2.25-8.10 10 3/mcL Neutrophil, 7.60 Absolute Performed By: #### CBC, ADIFF, ANEU, BMP, GFR, TROPI #### [place] [address] BMP Collected: 04/20/2018 Status: F Source: [facility] 1:00 AM [facility] EMERGENC[facility] DEPARTMENT REPOSITORY TYPE CODE TESTS RESULT OUT OF [...] CBC, ADIFF, ANEU, BMP, GFR, TROPI #### [address] [address] .GFR Collected: 04/20/2018 Status: F Source: [facility] 1:00 AM [facility] EMERGENC[facility] DEPARTMENT REPOSITORY TYPE CODE TESTS RESULT OUT OF REFERENCE UNITS RANGE LAB GFRAA(LOINC ml/min/1.73 ) sqm GFR 54 Sudanese Result Comment: GFR Population mean for , [...] CBC, ADIFF, ANEU, BMP, GFR, TROPI #### [place] [address] TROPI Collected: 04/20/2018 Status: F Source: [facility] 1:00 AM [facility] REPOSITORY TYPE CODE TESTS RESULT [...] ECG changes may help assess possibility of IL. *Other non-acute coronary syndrome conditions such as CHF, myocarditis, pulmonary emboli, sepsis and cardiac surgery could result in myocardial damage and increased troponin levels. Performed By: #### CBC, ADIFF, ANEU, BMP, GFR, TROPI #### [place] [id number] [place] [address] TROPI Collected: 04/01/2018 Status: F Source: [facility] 11:55 PM [facility] EMERGENCY DEPARTMENT REPOSITORY TYPE CODE TESTS RESULT OUT OF [...] ECG changes may help assess possibility of [place]. *Other non-acute coronary syndrome conditions such as CHF, myocarditis, pulmonary emboli, sepsis and cardiac surgery could result in myocardial damage and increased troponin levels. Performed By: #### TROPI #### [address] [address] NM MYOCARDIAL SPECT Observed: 04/01/2018 Status: C Source: [place] [facility] 11:18 PM [facility] REPOSITORY ADDENDUM There is increased radiotracer uptake [...] AM TROPI Collected: 04/01/2018 Status: F Source: [facility] 9:02 PM [facility] EMERGENCY DEPARTMENT REPOSITORY TYPE CODE TESTS RESULT OUT OF [...] ECG changes may help assess possibility of [place]. *Other non-acute coronary syndrome conditions such as CHF, myocarditis, pulmonary emboli, sepsis and cardiac surgery could result in myocardial damage and increased troponin levels. Performed By: #### TROPI #### [place] [address] CT ANGIOGRAPHY CHEST Observed: 04/01/2018 Status: F Source: [employer] W/CONTRAST 7:07 PM [facility] REPOSITORY ORIGINAL CT ANGIOGRAPHY CHEST W/CONTRAST: Multiplanar [...] 2 VIEWS Observed: 04/01/2018 Status: F Source: [place] [employer] 2:48 PM [facility] REPOSITORY ORIGINAL XR CHEST 2 VIEWS, Clinical [...] PM CBC Collected: 04/01/2018 Status: F Source: [facility] 2:21 PM [facility] EMERGENCY DEPARTMENT REPOSITORY TYPE CODE TESTS RESULT OUT OF [...] ADIFF, ANEU, GFR, TROPI, BMP, DIMER #### [place] [address] .AUTO DIFF Collected: 04/01/2018 Status: F Source: [facility] 2:21 PM [facility] EMERGENCY DEPARTMENT REPOSITORY TYPE CODE TESTS RESULT OUT OF [...] ADIFF, ANEU, GFR, TROPI, BMP, DIMER #### [address] [address] .NEUABS Collected: 04/01/2018 Status: F Source: [facility] 2:21 PM [facility] EMERGENCY DEPARTMENT REPOSITORY TYPE CODE TESTS RESULT OUT OF REFERENCE UNITS RANGE LAB ANEU(LOINC) 2.25-8.10 10 3/mcL High Neutrophil, 9.70 Absolute Performed By: #### CBC, ADIFF, ANEU, GFR, TROPI, BMP, DIMER #### [address] [address] .GFR Collected: 04/01/2018 Status: F Source: [facility] 2:21 [facility] REPOSITORY TYPE CODE TESTS RESULT OUT OF REFERENCE UNITS RANGE LAB GFRAA(LOINC ml/min/1.73 ) sqm GFR 57 Sudanese Result Comment: GFR Population mean for , [...] ADIFF, ANEU, GFR, TROPI, BMP, DIMER #### [address] [address] TROPI Collected: 04/01/2018 Status: F Source: [facility] [address] [place] [address] REPOSITORY TYPE CODE TESTS RESULT OUT OF [...] ECG changes may help assess possibility of [place]. *Other non-acute coronary syndrome conditions such as CHF, myocarditis, pulmonary emboli, sepsis and cardiac surgery could result in myocardial damage and increased troponin levels. Performed By: #### CBC, ADIFF, ANEU, GFR, TROPI, BMP, DIMER #### [address] [address] BMP Collected: 04/01/2018 Status: F Source: [facility] [address] [place] [address] REPOSITORY TYPE CODE TESTS RESULT OUT OF [...] ADIFF, ANEU, GFR, TROPI, BMP, DIMER #### [address] [address] DIMER Collected: 04/01/2018 Status: F Source: [facility] 2:21 PM [facility] EM[facility]GENCY DEPARTMENT REPOSITORY TYPE CODE TESTS RESULT OUT OF [...] ADIFF, ANEU, GFR, TROPI, BMP, DIMER #### [address] [address] CBC Collected: 04/01/2018 Status: F Source: [facility] 12:52 PM [facility] EM[facility]PARTMENT REPOSITORY TYPE CODE TESTS RESULT OUT OF [...] CBC, ADIFF, ANEU, GFR, BMP, A1C #### [place] [address] .AUTO DIFF Collected: 04/01/2018 Status: F Source: [facility] 12:52 PM [facility] EM[facility]GENC[facility] DEPARTMENT REPOSITORY TYPE CODE TESTS RESULT OUT OF [...] CBC, ADIFF, ANEU, GFR, BMP, A1C #### [place] [address] .NEUABS Collected: 04/01/2018 Status: F Source: [facility] 12:52 PM [facility] EMERGENC[facility] DEPARTMENT REPOSITORY TYPE CODE TESTS RESULT OUT OF REFERENCE UNITS RANGE LAB ANEU(LOINC) 2.25-8.10 10 3/mcL High Neutrophil, 9.30 Absolute Performed By: #### CBC, ADIFF, ANEU, GFR, BMP, A1C #### [place] [address] .GFR Collected: 04/01/2018 Status: F Source: [facility] 12:52 PM [facility] EMERGENC[facility] DEPARTMENT REPOSITORY TYPE CODE TESTS RESULT OUT OF REFERENCE UNITS RANGE LAB GFRAA(LOINC ml/min/1.73 ) sqm GFR 54 Sudanese Result Comment: GFR Population mean for , [...] CBC, ADIFF, ANEU, GFR, BMP, A1C #### [place] [address] BMP Collected: 04/01/2018 Status: F Source: [facility] 12:52 PM [facility]OUNDATION REPOSITORY TYPE CODE TESTS RESULT [...] CBC, ADIFF, ANEU, GFR, BMP, A1C #### [address] [address] A1C Collected: 04/01/2018 Status: F Source: [facility] 12:52 PM [facility] EMERGENC[facility] DEPARTMENT REPOSITORY TYPE CODE TESTS RESULT OUT OF RANGE REFERENCE UNITS LAB A1C(LOINC) 4.0-6.0 % High Hgb A1c 13.6 Performed By: #### CBC, ADIFF, ANEU, GFR, BMP, A1C #### [place] [address] TROPI Collected: 02/08/2018 Status: F Source: [facility] 7:36 AM [facility] EMERGENC[facility] DEPARTMENT REPOSITORY TYPE CODE TESTS RESULT OUT OF [...] ECG changes may help assess possibility of IL. *Other non-acute coronary syndrome conditions such as CHF, myocarditis, pulmonary emboli, sepsis and cardiac surgery could result in myocardial damage and increased troponin levels. Performed By: #### TROPI #### [address] [address] TROPI Collected: 02/08/2018 Status: F Source: [employer] 4:32 AM [facility] EMERGENC[facility] DEPARTMENT REPOSITORY TYPE CODE TESTS RESULT OUT OF [...] ECG changes may help assess possibility of IL. *Other non-acute coronary syndrome conditions such as CHF, myocarditis, pulmonary emboli, sepsis and cardiac surgery could result in myocardial damage and increased troponin levels. Performed By: #### TROPI #### [facility] [address] [place] [address] CT HIP W/O CONTRAST Observed: 02/08/2018 Status: F Source: [facility] RIGHT 2:03 AM [facility] EMERGENC[facility] DEPARTMENT REPOSITORY ORIGINAL CT HIP W/O CONTRAST RIGHT [...] Brendan Arana MD Electronically Signed By: Brendan rAana MD Dictated Date: 02/08/2018 2:27:08 AM Prelim Date: 02/08/2018 2:27:08 AM Sign Date: 02/08/2018 2:30:48 AM CBC Collected: 02/08/2018 Status: F Source: [facility] 12:34 AM [facility] EM[facility] DEPARTMENT REPOSITORY TYPE CODE TESTS RESULT OUT OF [...] ADIFF, ANEU, BMP, GFR, TROPI, PBNP #### [address] [address] .AUTO DIFF Collected: 02/08/2018 Status: F Source: [facility] 12:34 AM [facility] EMERGENC[facility] DEPARTMENT REPOSITORY TYPE CODE TESTS RESULT OUT OF [...] ADIFF, ANEU, BMP, GFR, TROPI, PBNP #### [address] [address] .NEUABS Collected: 02/08/2018 Status: F Source: [facility] 12:34 AM [facility] EMERGENC[facility] DEPARTMENT REPOSITORY TYPE CODE TESTS RESULT OUT OF REFERENCE UNITS RANGE LAB ANEU(LOINC) 2.25-8.10 10 3/mcL Neutrophil, 7.70 Absolute Performed By: #### CBC, ADIFF, ANEU, BMP, GFR, TROPI, PBNP #### [address] [address] BMP Collected: 02/08/2018 Status: F Source: [facility] 12:34 AM [facility] EMERGENC[facility] DEPARTMENT REPOSITORY TYPE CODE TESTS RESULT OUT OF [...] ADIFF, ANEU, BMP, GFR, TROPI, PBNP #### [address] [address] .GFR Collected: 02/08/2018 Status: F Source: [facility] 12:34 AM [facility] EMERGENC[facility] DEPARTMENT REPOSITORY TYPE CODE TESTS RESULT OUT OF REFERENCE UNITS RANGE LAB GFRAA(LOINC ml/min/1.73 ) sqm GFR >60 Sudanese Result Comment: GFR Population mean for , [...] ADIFF, ANEU, BMP, GFR, TROPI, PBNP #### [address] [address] TROPI Collected: 02/08/2018 Status: F Source: [employer] 12:34 maufait REPOSITORY TYPE CODE TESTS RESULT OUT OF [...] ECG changes may help assess possibility of IL. *Other non-acute coronary syndrome conditions such as CHF, myocarditis, pulmonary emboli, sepsis and cardiac surgery could result in myocardial damage and increased troponin levels. Performed By: #### CBC, ADIFF, ANEU, BMP, GFR, TROPI, PBNP #### [address] [address] PBNP Collected: 02/08/2018 Status: F Source: [employer] 12:34 [place]ait REPOSITORY TYPE CODE TESTS RESULT OUT OF REFERENCE UNITS RANGE LAB PBNP(LOINC) 0-900 pg/mL High N-Terminal 2368 proBNP Result Comment: NT-proBNP results of less than 300 pg/mL effectively rules out acute congestive heart failure with 99% negative predictive value. Performed By: #### CBC, ADIFF, ANEU, BMP, GFR, TROPI, PBNP #### [place] [address] UA Collected: 02/08/2018 Status: F Source: [facility] 12:34 AM [facility] EM[facility]PART[facility] REPOSITORY TYPE CODE TESTS RESULT OUT OF [...] Negative Performed By: #### UA, UAMIC #### [place] [address] UAMIC Collected: 02/08/2018 Status: F Source: [place] [employer] 12:34 AM [facility] TYPE CODE TESTS RESULT OUT OF REFERENCE UNITS RANGE LAB RBCUA(LOIN 0-2 /hpf C) UA RBC Negative LAB WBCUA(LOIN 0-5 /hpf C) UA WBC Rare LAB EPIUA(LOIN 0-20 /hpf C) UA Squam Epithelial Rare Performed By: #### UA, UAMIC #### [place] [address] CT HEAD OR BRAIN W/O Observed: 02/08/2018 Status: F Source: [place] [employer] CONTRAST 12:08 AM [facility] EMERG[facility] DEPARTMENT REPOSITORY ORIGINAL CT HEAD OR BRAIN W/O [...] 2 VIEWS Observed: 02/07/2018 Status: F Source: [employer] 11:41 PM [facility] EMERG[facility] REPOSITORY ORIGINAL XR CHEST 2 VIEWS CLINICAL [...] RIGHT W/PELVIS Observed: 02/07/2018 Status: F Source: [employer] 4 VIEWS 11:41 PM [facility] EMERGENC[facility] DEPARTMENT REPOSITORY ORIGINAL XR HIP RIGHT W/PELVIS 4 [...] is adaptive remodeling of the acetabulum. Severe cyix-kh-dfji arthrosis noted. There is no fracture identified. [...] OR 2 Observed: 02/07/2018 Status: F Source: [employer] RIGHT 11:41 PM [facility] EMERGENCY DEPARTMENT REPOSITORY ORIGINAL XR KNEE 1 OR 2 VIEWS RIGHT CLINICAL STATEMENT: pain COMPARISON: None FINDINGS: The alignment is anatomic. Patellofemoral spurring seen. Surgical clips identified in the medial soft tissues. There is no fracture. IMPRESSION: No acute fracture Interpreted By: Brendan Arana MD Preliminary Report By: Brendan Arana MD Electronically Signed By: Berndan Arana MD Dictated Date: 02/08/2018 12:31:38 AM Prelim Date: 02/08/2018 12:31:38 AM Sign Date: 02/08/2018 12:32:15 AM XR SHOULDER MINIMUM 2 Observed: 02/07/2018 Status: F Source: [employer] VIEWS RIGHT 11:41 PM [facility]OUNDATION REPOSITORY ORIGINAL [...] AM K Collected: 02/04/2018 Status: F Source: [facility] 3:24 PM [facility] EMERGENCY DEPARTMENT REPOSITORY TYPE CODE TESTS RESULT OUT OF REFERENCE UNITS RANGE LAB K(LOINC) 3.5-5.0 mEq/L Potassium Level 4.6 Performed By: #### K #### [place] [address] K Collected: 01/28/2018 Status: F Source: [facility] 3:13 PM [facility] EMERGENCY DEPARTMENT REPOSITORY TYPE CODE TESTS RESULT OUT OF REFERENCE UNITS RANGE LAB K(LOINC) 3.5-5.0 mEq/L High Potassium Level 5.4 Performed By: #### K #### [place] [address] K Collected: 01/03/2018 Status: F Source: [facility] 11:50 AM [facility] EMERGENCY DEPARTMENT REPOSITORY TYPE CODE TESTS RESULT OUT OF REFERENCE UNITS RANGE LAB K(LOINC) 3.5-5.0 mEq/L Potassium Level 4.9 Performed By: #### K #### [place] [address] BMP Collected: 12/31/2017 Status: F Source: [facility] 1:57 PM [facility] EMERGENCY DEPARTMENT REPOSITORY TYPE CODE TESTS RESULT OUT OF [...] 8.7 Performed By: #### BMP, GFR #### [address] [address] .GFR Collected: 12/31/2017 Status: F Source: [employer] 1:57 PM [facility] EMERGENCY DEPARTMENT REPOSITORY TYPE CODE TESTS RESULT OUT OF REFERENCE UNITS RANGE LAB GFRAA(LOINC ml/min/1.73 ) sqm GFR >60 Sudanese Result Comment: GFR Population mean for , [...] meters Performed By: #### BMP, GFR #### [address] [address] [address] THORAX W/O Observed: 12/10/2017 Status: F Source: [employer] CONTRAST 2:45 PM [facility] EMERGENC[facility] DEPARTMENT REPOSITORY ORIGINAL CT THORAX W/O CONTRAST CLINICAL [...] AM PROGRESS Observed: 12/04/2017 Status: COMPLETED Source: [place] 11:[address] [facility] REPOSITORY HNO ID: [id number] Author: Josué Fernandez (Rn) Service: (none) Author Type: Registered Nurse Type: Progress Notes Filed: 12/04/2017 11:40 AM Note Text: PRIMARY CARE COORDINATION QUICK NOTE Provider Action/FYI Spk w/ K. [facility] discussed Health Maintenance and Chronic care. Pt has not been an active participant in his health care, and has not been engaged. No Care Coordination services indicated at this time. Patient identified by name and date . Jim Moses RN December 04, 2017 11:18 AM CNPTOUTREACH Observed: 12/04/2017 Status: COMPLETED Source: [place] 12:00 AM [facility] REPOSITORY Patient Outreach (FAMPWS) JADA COLUNGA ([id number]) 1955 M Date Time Provider Department 12/04/17 [facility] During your visit today, we recorded the following information about you: Jim Moses RN 12/04/2017 11:40 AM Signed PRIMARY CARE COORDINATION QUICK NOTE Provider Action/FYI Spk w/ K. [facility] discussed Health Maintenance and Chronic care. Pt [...] - Other: See Comments Comments: Anxiety, hypertension HTBFEEA-MYY-PKJ REDUCTASE INHIBIT*04/24/2011 10 - Anaphylaxis Comments: Rhabdomyolysis. LEAH (ONDANSETRON HCL (PF)) 12/08/2013 1 - Mental Status Change Date Reviewed: 04/15/2017 Reviewed by: Lotus ([facility]) JESSICA Rivera - Fully Assessed Reason for Visit: Rn Discharge Chronic Care [3614] Cmt: [place] Maintenance Reason For Visit History Recorded Prescriptions [...] 12/04/17 ARACELI Observed: 12/04/2017 Status: COMPLETED Source: [place] 12:00 AM [facility] REPOSITORY Patient Outreach (FAMPWS) JADA COLUNGA ([id number]) 1955 M Date Time Provider Department 12/04/17 ELIN OCAMPO) ROSALIO During your visit today, we recorded the following information about you: Allergies As of Date: 12/04/2017 Noted Allergy Reaction REGLAN (METOCLOPRAMIDE HCL) 04/24/2011 14 - Other: See Comments Comments: Anxiety, hypertension SLCTQOD-KAF-CLW REDUCTASE INHIBIT*04/24/2011 10 - Anaphylaxis Comments: Rhabdomyolysis. ARYFRSULEIMAN (ONDANSETRON HCL (PF)) 12/08/2013 1 - Mental Status Change Date Reviewed: 04/15/2017 Reviewed by: Lotus ([facility]) JESSICA Rivera - Fully Assessed Reason for Visit: [facility]/Care Gap Outreach [8645] Prescriptions as of 12/04/2017 Sig: INSULIN GLARGINE [...] INVALID FOR* Letter Text Mer Mccormick MD [address] [facility] [id number] [phone] Elin Ocampo MA, Population Health .A. December 04, 2017 Jada Baileyrick [address] [facility] [address] Dear Mr. Colunga In an effort to serve your healthcare needs, it has come to the attention of Mer Mccormick MD, your Primary Care Provider, that you are overdue for routine health care. We've attempted to contact you and have been unsuccessful. Please call the office at [phone] to schedule an appointment for Follow Up. In addition, you are due for the following health maintenance.vbc Health Maintenance Due: DILATED RETINAL EXAM due on 11/21/2011 COLORECTAL CANCER SCREENING,SEE MODIFIER due on 07/11/2015 DIABETIC FOOT EXAM due on 08/18/2016 HBA1C due on 01/16/2017 URINE ALBUMIN CREATININE RATIO due on 04/10/2017 LDL due on 04/10/2017 INFLUENZA(1) due on 06/21/2017 If you have any questions, please feel free to call the office at [phone] message us via [employer]. Thank you for choosing the [facility]. Sincerely, Elin Ocampo MA, Population Health M.A. (electronically signed to expedite mailing) Encounter Status:Closed by EPIC, PRODUSER on 12/08/17 ALLERGIES ALLERGIES DATE TYPE / NAME / CODE REACTION SEVERITY SOURCE CODE 11/05/2018 Drug metoclopramide goofy, anxious, Unknown [place] Allergy/4 HCl/[id number](RXNO elevated BP Community [id number]( [facility] SNOMED Repository CT) 11/05/2018 Drug ondansetron goofy, anxious, Unknown [place] Allergy/4 HCl/[id number](RXNO elevated BP Community [id number]( [facility] SNOMED Repository CT) 11/05/2018 Drug Wsontuu-Sxk-Lve rhabdomyolosis Unknown [place] Allergy/4 Reductase Community 25200932( Inhibitor/[id number] [facility] SNOMED 5(RXNORM) Repository CT) ENCOUNTERS ENCOUNTERS ADMIT/DISCHARGE ACCOUNT NUMBER ADMITTING ENCOUNTER LOCATION SOURCE CLASS 11/12/2018 [id number] Ambulatory RBuilding:Haritha Red [address] Repository 11/07/2018 [id number] SALTY KEY, Inpatient ABuilding:Kenyon Kendrick Encounter A5Room: [place] [address]Bed: [facility] Repository 11/05/2018/ [id number] Sementi, Inpatient Sandra Sandra 019 Geraldine Encounter [facility] lding:MS3Ro Repository om: [id number]: 1 11/05/2018 [id number] Sementi, Ambulatory BMSBuilding [place] Geraldine :[facility] Repository 11/05/2018 [id number] Sementi, Ambulatory BMSBuilding [place] Geraldine :[facility] Repository 11/05/2018 [id number] Sementi, Ambulatory BMSBuilding [place] Geraldine :[facility] Repository 11/04/2018 [id number] Ambulatory [facility] lding:[facility] Repository 10/29/2018 [id number] Ambulatory [facility] lding:MEDOU Repository TP 10/28/2018/ [id number] Justo, Gumaro Inpatient [place] Sandra 019 [facility] lding:PCURo Repository om: [id number]: 1 2018 [id number] Justo, Gumaro Ambulatory BMSBuilding [place] :BMS.[facility] Repository 2018 [id number] Kemp, Gumaro Ambulatory BMSBuilding Sandra :BMS.[facility] Repository 2018 [id number] Kemp, Gumaro Ambulatory BMSBuilding Sandra :BMS.[facility] Repository 2018 [id number] Kemp, Gumaro Ambulatory BMSBuilding [place] :BMS.[facility] Repository 2018 [id number] Kemp, Gumaro Ambulatory BMSBuilding Sandra :BMS.[facility] Repository 2018 [id number] Justo, Gumaro Ambulatory BMSBuilding Sandra :BMS.[facility] Repository 2018 [id number] Kemp, Gumaro Ambulatory BMSBuilding [place] :BMS.[facility] Repository 2018 [id number] Kemp, Gumaro Ambulatory BMSBuilding Sandra :BMS.[facility] Repository 2018 [id number] Kemp, Gumaro Ambulatory BMSBuilding Sandra :BMS.[facility] Repository 2018 [id number] Kemp, Gumaro Ambulatory BMSBuilding Sandra :BMS.[facility] Repository 2018 [id number] Kemp, Gumaro Ambulatory BMSBuilding [place] :BMS.[facility] Repository 2018 [id number] Kemp, Gumaro Ambulatory BMSBuilding Sandra :BMS.[facility] Repository 10/28/2018/ [id number] Ambulatory BMSBuilding [place] 019 :[facility] Repository 10/27/2018 [id number] Kemp, Gumaro Ambulatory BMSBuilding [place] :BMS.[facility] Repository 10/27/2018 [id number] Kemp, Gumaro Ambulatory BMSBuilding Sandra :BMS.[facility] Repository 10/27/2018 [id number] Ambulatory ABuilding:Tierra Cesilia [facility] Repository 10/27/2018 [id number] Ambulatory RBuilding:Prerna GonzalezCesilia [facility] Repository 10/19/2018/ [id number] GEBREGIORGIS Inpatient ABuilding:Kenyon Lyon MD, LENA Encounter V4FZlrb: Health 4673Bed: A [facility] Repository 10/13/2018/ [id number] Tereletsky, Inpatient Sandra Sandra 018 James Encounter [facility] lding:PCURo Repository om: [id number]: 1 10/13/2018 [id number] Tereletsky, Ambulatory BMSBuilding Sandra James :BMS.[facility] Repository 10/13/2018 [id number] Tereletsky, Ambulatory BMSBuilding [place] [facility] 10/13/2018 [id number] Tereletsky, Ambulatory BMSBuilding [place] James :BMS.[facility] Repository 10/13/2018 [id number] Tereletsky, Ambulatory BMSBuilding Sandra James :BMS.[facility] Repository 10/13/2018 [id number] Tereletsky, Ambulatory BMSBuilding Sandra James :BMS.[facility] Repository 10/13/2018 [id number] Tereletsky, Ambulatory BMSBuilding Sandra James :BMS.[facility] Repository 10/13/2018 [id number] Tereletsky, Ambulatory BMSBuilding [place] James :B[facility] Repository 10/13/2018 [id number] Tereletsky, Ambulatory BMSBuilding [place] James :BMS.[facility] Repository 10/13/2018 [id number] Tereletsky, Ambulatory BMSBuilding Sandra James :BMS.[facility] Repository 10/13/2018 [id number] Tereletsky, Ambulatory BMSBuilding [place] James [facility] Rep[facility] 10/10/2018/ [id number] Ambulatory BBuilding:Lizzie Red [address] [place] [address] Repository 10/03/2018 [id number] Ambulatory [facility] lding:[facility] Repository 09/30/2018/ [id number] Ambulatory ABuilding:Mireille [facility] Repository 09/19/2018/ [id number] Ambulatory ABuilding:Kenyon Red 018 [facility] Repository 09/08/2018/ [id number] JUAN MANUEL KYE, Inpatient ABuilding:C Cesilia 018 BLAZE Encounter CURoom: Health 0326Bed: A [facility] Repository 08/13/2018/ [id number] Emergency ABuilding:E Cesilia 018 [facility] Repository 06/26/2018/ [id number] SALTY KEY, Ambulatory ABuilding:C Cesilia 018 JIM L CURoom: Health 0319Bed: A [facility] Repository 05/27/2018/ [id number] [address] Inpatient ABuilding:C Cesilia 018 JERI Currie Encounter CURoom: Health 0306Bed: A [facility] Repository 05/23/2018/ [id number] Ambulatory AULTMANBuil Cesilia 018 ding:LAB [facility] Repository 05/17/2018/ [id number] Ambulatory RBuilding:W Cesilia 018 [facility] Repository 04/25/2018/ [id number] RONALDO KEY, Inpatient RBuilding:T Cesilia 018 CONRADO Graff Encounter CUWRoom: Health 0346Bed: A [facility] Repository 04/20/2018/ [id number] SHARYN KEY, GUY Inpatient ABuilding:Kenyon Mathews. Encounter B2QFwev: Health 4716Bed: A [facility] Repository 04/01/2018/2 [id number] MAYI KEY, Ambulatory ABuilding:C Cesilia 018 ALICIA PCRoom: [facility] XOX2Jgj: A Foundation Repository 04/01/2018/ [id number] Ambulatory AULTMANBuil Cesilia 018 ding:LAB Health [facility] Repository 02/07/2018/ [id number] CITLALY KEY, Ambulatory ABuilding:C Cesilia 018 NOAH Cruzom: Health 2652Bed: A [facility] Repository 02/04/2018/ [id number] Ambulatory AULTMANBuil Cesilia 018 ding:[facility] Repository 01/28/2018/ [id number] Ambulatory AULTMANBuil Cesilia 018 ding:[facility] Health [facility] Repository 01/03/2018/ [id number] Ambulatory AULTMANBuil Cesilia 018 ding:[facility] Repository 12/31/2017/ [id number] Ambulatory AULTMANBuil Cesilia 018 ding:[facility] Repository 12/10/2017/ [id number] BOB KEY, Ambulatory CESILIA Cesilia 018 [facility] g:[facility] Repository PAYERS PAYERS ENCOUNTER GUARANTOR PAYER SUBSCRIBER SOURCE 11/12/2018 [facility] Primary [facility] BRENEMANDOB: Insurance:MEDICARE BRENEMANDOB: [facility] E PART A INSC[employer] [id number] Repository [facility] [address] Number: [address] [facility] [address], [place] [id number] [address], [place] [email or web address] Date:2018-11-12Tel: ([phone]) D-Sight~BRIIDYLAN [phone] [phone] [email or web address] Name:Toñoil Stevenson ESTRELLA ()Tel: ([phone]) MTel: [phone] [phone] () [phone] () 510750Ssvyqmpn, [place] [address]FX: 11/12/2018 [facility]ARE BRENEMANDOB: [facility] PART B INSCOPolicy [id number] Repository Number: E [facility] [id number] [address], [place] Date:2018-11-12Tel: [phone] Name[facility] ()Tel: (197) Bjfbsbuwgthesu LLCPO [phone] (WP) [address] [address]Pggishtht, [place] [address]PP: 11/12/2018 Tertiary [facility] Insurance:[employer]ARE BRENEMANDOB: [facility] [id number] Number: [id number] Repository [id number] E [facility] [address] Date:2018-11-12[place], [place] [id number]: ([phone]) 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 [phone] [place] [address] ()Tel: [phone]: ([phone]) [phone] 11/07/2018 [facility] BRENEMANDOB: Insurance:MEDICARE BRENEMANDOB: [facility] E PART A INSCOPolicy [id number] Repository [facility] [address] Number: E [facility] [address], [place] [id number] [address], [place] [email or web address] Date:2017-05-04Tel: ([phone]) D-Sight~SAMIR [id number] [phone] Name:Toñoil Stevenson ()Tel: (001) MTel: [phone] [phone] ([phone]) [phone] () [id number], [place] [address]EF: 11/07/2018 Secondary [facility] Insurance:MEDICARE BRENEMANDOB: Foundation PART B INSCOPolicy [id number] Repository Number: E [facility] [id number] [address], [place] Date:2018-11-07Tel: [phone] [phone] Name:[facility] ()Tel: ([phone]) Administrators LLCLG [phone] () [address] [address]Jjiiwfdmd, [place] [address]NX: 11/07/2018 Tertiary [facility] Insurance:[employer]ULTCARE BRENEMANDOB: [address] Number: [id number] Repository [id number] E [facility] [address] Date:2017-05-[address] [place] [address] [id number]: ([phone]) 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 [phone] [place] [address] ()Tel: [phone]: ([phone] 11/05/2018 JADA W Primary JADA W Sandra [id number] E Insurance:MEDICARE BRENEMANDOB: [facility] [place] [place] [facility] [id number] Number: Repository [address]Hxr: 330 [id number] [phone] () Date:2018-11-05 11/05/2018 Secondary JADA W Sandra Insurance:AULTCAREPol BRENEMANDOB: [facility] icy Number: [id number] [id number] Repository Date:9381-54-79YI[address] [address]EQ: 11/05/2018 Tertiary NOT GIVENUNK Sandra Insurance:SELF PAY [facility] Number: Effective Repository Date:2018-11-05 11/05/2018 JADA W Primary JADA W Sandra [id number] E Insurance:MEDICARE BRENEMANDOB: [facility] [place] [place] [facility] [id number] Number: Repository [address]Dsr: 330 [id number] [phone] () Date:2018-11-05 11/05/2018 Secondary JADA W [place] Insurance:AULTCAREPol BRENEMANDOB: [facility] icy Number: [id number] Hospital [id number] Repository Date:1820-06-16JM [address] [place] [address]BL: 11/05/2018 Tertiary NOT GIVENUNK Sandra Insurance:SELF PAY [facility] Number: Effective Repository Date:2018-11-05 11/05/2018 JADA W Primary JADA W [place] [id number] E Insurance:MEDICARE BRENEMANDOB: [facility] [id number] [place] Number: Repository [id number]: (313) [id number] [phone] () Date:2018-11-05 11/05/2018 Secondary JADA W [place] Insurance:AULTCAREPol BRENEMANDOB: Community icy Number: [id number] Hospital [id number] Repository Date:7285-76-04QG [address], [place] [address]YB: 11/05/2018 Tertiary NOT GIVENUNK [place] Insurance:SELF PAY [facility] Number: Effective Repository Date:2018-11-05 11/05/2018 JADA W Primary JADA W Sandra [id number] E Insurance:MEDICARE BRENEMANDOB: [facility] [id number] [place] Number: Repository [id number]: (617) [id number] [phone] () Date:2018-11-05 11/05/2018 Secondary JADA W [place] Insurance:AULTCAREPol BRENEMANDOB: Community icy Number: [id number] Hospital [id number] Repository Date:0971-54-00YU [facility] [address] [address]CN: 11/05/2018 Tertiary NOT GIVENUNK Sandra Insurance:SELF PAY [facility] Number: Effective Repository Date:2018-11-05 11/04/2018 JADA W Primary JADA W [place] [id number] E Insurance:MEDICARE BRENEMANDOB: [facility] [id number] [place] Number: Repository [address]Ssp: (333) [id number] [phone] () Date:2018-10-10 11/04/2018 Secondary JADA W [place] Insurance:AULTCAREPol BRENEMANDOB: Community icy Number: [id number] Hospital [id number] Repository Date:8530-74-23GH [facility] [address] [place] [address]TX: 11/04/2018 Tertiary NOT GIVENUNK [place] Insurance:SELF PAY [facility] Number: Effective Repository Date:2018-10-10 10/29/2018 JADA W Primary JADA W [place] [id number] E Insurance:MEDICARE BRENEMANDOB: [place] [facility] [facility] [id number] Number: Repository [address]Krd: 330 [id number] [phone] () Date:2018-10-24 10/29/2018 Secondary JADA W [place] Insurance:AULTCAREPol BRENEMANDOB: Community icy Number: [id number] Hospital [id number] Repository Date:0145-65-28IK[address] [address]UR: 10/29/2018 Tertiary NOT GIVENUNK [place] Insurance:SELF PAY [facility] Number: Effective Repository Date:2018-10-24 2018 JADA W Primary JADA W [place] [id number] E Insurance:MEDICARE BRENEMANDOB: [facility] [id number] Number: Repository [address]Eap: (318) [id number] [phone] () Date:2018-10-27 2018 Secondary JADA W [place] Insurance:AULTCAREPol BRENEMANDOB: Community icy Number: [id number] Hospital [id number] Repository Date:2819-00-98WF [address], [place] [address]SC: 2018 Tertiary NOT GIVENUNK [place] Insurance:SELF PAY [facility] Number: Effective Repository Date:2018-10-27 2018 JADA W Primary JADA W [place] [id number] E Insurance:MEDICARE BRENEMANDOB: Community [facility] [id number], [place] Number: Repository [id number]: 330 [id number] [phone] (HP) Date:2018-10-27 2018 Secondary JADA W [place] Insurance:AULTCAREPol BRENEMANDOB: Community icy Number: [id number] Hospital [id number] Repository Date:5971-98-20MJ [facility] [address] [place] [address]BF: 2018 Tertiary NOT GIVENUNK Sandra Insurance:SELF PAY [facility] Number: Effective Repository Date:2018 2018 JADA W Primary JADA W [place] [id number] E Insurance:MEDICARE BRENEMANDOB: Community [facility] [id number] Number: Repository [address]Elg: 330 [id number] [phone] () Date:2018-10-27 2018 Secondary JADA W [place] Insurance:AULTCAREPol BRENEMANDOB: Community icy Number: [id number] Hospital [id number] Repository Date:4688-40-91VY [address] [address]LL: 2018 Tertiary NOT GIVENUNK [place] Insurance:SELF PAY [facility] Number: Effective Repository Date:2018 2018 JADA W Primary JADA W [place] [id number] E Insurance:MEDICARE BRENEMANDOB: Community [facility] [id number], [place] Number: Repository [address]Jrh: 330 [id number] [phone] (HP) Date:2018-10-27 2018 Secondary JADA W [place] Insurance:AULTCAREPol BRENEMANDOB: Community icy Number: [id number] Hospital [id number] Repository Date:4546-35-08OX [address], [place] [address]DZ: 2018 Tertiary NOT GIVENUNK [place] Insurance:SELF PAY [facility] Number: Effective Repository Date:2018 2018 JADA W Primary JADA W Sandra [id number] E Insurance:MEDICARE BRENEMANDOB: Community [facility] [id number] Number: Repository [address]Roo: (457) [id number] [phone] () Date:2018-10-27 2018 Secondary JADA W [place] Insurance:AULTCAREPol BRENEMANDOB: Community icy Number: [id number] Hospital [id number] Repository Date:4532-59-77RG [address] [place] [address]ED: 2018 Tertiary NOT GIVENUNK [place] Insurance:SELF PAY [facility] Number: Effective Repository Date:2018 2018 JADA W Primary JADA W [place] [id number] E Insurance:MEDICARE BRENEMANDOB: Community [facility] [id number] [place] Number: Repository [address]Src: [phone] [id number] [phone] () Date:2018-10-27 2018 Secondary JADA W [place] Insurance:AULTCAREPol BRENEMANDOB: Community icy Number: [id number] Hospital [id number] Repository Date:5705-37-59JH [address], [place] [address]AK: 2018 Tertiary NOT GIVENUNK [place] Insurance:SELF PAY [facility] Number: Effective Repository Date:2018 2018 JADA W Primary JADA W [place] [id number] E Insurance:MEDICARE BRENEMANDOB: Community [facility] [id number] Number: Repository [address]Yco: 330 [id number] [phone] () Date:2018-10-27 2018 Secondary JADA W [place] Insurance:AULTCAREPol BRENEMANDOB: [facility] icy Number: [id number] Hospital [id number] Repository Date:3591-24-56JZ[address] [address]HZ: 2018 Tertiary NOT GIVENUNK Sandra Insurance:SELF PAY [facility] Number: Effective Repository Date:2018 2018 JADA W Primary JADA W [place] [id number] E Insurance:MEDICARE BRENEMANDOB: [facility] [place] [facility] [id number] Number: Repository [address]Cfk: 330 [id number] [phone] () Date:2018-10-27 2018 Secondary JADA W [place] Insurance:AULTCAREPol BRENEMANDOB: [facility] icy Number: [id number] Hospital [id number] Repository Date:8550-84-71QN [address] [place] [address]JV: 2018 Tertiary NOT GIVENUNK Sandra Insurance:SELF PAY [facility] Number: Effective Repository Date:2018 2018 JADA W Primary JADA W [place] [id number] E Insurance:MEDICARE BRENEMANDOB: [facility] [id number] Number: Repository [id number]: 330 [id number] [phone] () Date:2018-10-27 2018 Secondary JADA W [place] Insurance:AULTCAREPol BRENEMANDOB: [facility] icy Number: [id number] Hospital [id number] Repository Date:7763-32-68JM [address] [place] [address]MS: 2018 Tertiary NOT GIVENUNK [place] Insurance:SELF PAY [facility] Number: Effective Repository Date:2018 2018 JADA W Primary JADA W [place] [id number] E Insurance:MEDICARE BRENEMANDOB: Community [facility] [facility] [id number] Number: Repository [address]Jro: (722) [id number] [phone] (HP) Date:2018-10-27 2018 Secondary JADA W [place] Insurance:AULTCAREPol BRENEMANDOB: Community icy Number: [id number] Hospital [id number] Repository Date:7934-28-40WE [address] [place] [address]DI: 2018 Tertiary NOT GIVENUNK [place] Insurance:SELF PAY [facility] Number: Effective Repository Date:2018 2018 JADA W Primary JADA W [place] [id number] E Insurance:MEDICARE BRENEMANDOB: Community [facility] [facility] [id number] Number: Repository [address]Dxf: 330 [id number] [phone] () Date:2018-10-27 2018 Secondary JADA W [place] Insurance:AULTCAREPol BRENEMANDOB: Community icy Number: [id number] Hospital [id number] Repository Date:6690-81-73WB [address] [place] [address]YO: 2018 Tertiary NOT GIVENUNK Sandra Insurance:SELF PAY [facility] Number: Effective Repository Date:2018 2018 JADA W Primary JADA W [place] [id number] E Insurance:MEDICARE BRENEMANDOB: Community [facility] [id number] Number: Repository [address]Mqi: 330 [id number] [phone] (HP) Date:2018-10-27 2018 Secondary JADA W [place] Insurance:AULTCAREPol BRENEMANDOB: Community icy Number: [id number] Hospital [id number] Repository Date:0180-95-11KG [address] [place] [address]KE: 2018 Tertiary NOT GIVENUNK Sandra Insurance:SELF PAY [facility] Number: Effective Repository Date:2018 2018 JADA W Primary JADA W [place] [id number] E Insurance:MEDICARE BRENEMANDOB: Community [facility] [id number] Number: Repository [address]Lbq: 330 [id number] [phone] (HP) Date:2018-10-27 2018 Secondary JADA W [place] Insurance:AULTCAREPol BRENEMANDOB: Community icy Number: [id number] Hospital [id number] Repository Date:5090-64-06FJ[address] [address]MR: 2018 Tertiary NOT GIVENUNK Sandra Insurance:SELF PAY [facility] Number: Effective Repository Date:2018 2018 JADA W Primary JADA W [place] [id number] E Insurance:MEDICARE BRENEMANDOB: Community [facility] [id number] Number: Repository [address]Fnb: 330 [id number] [phone] (HP) Date:2018-10-27 2018 Secondary JADA W [place] Insurance:AULTCAREPol BRENEMANDOB: Community icy Number: [id number] Hospital [id number] Repository Date:1819-66-43VV [address] [place] [address]CG: 2018 Tertiary NOT GIVENUNK [place] Insurance:SELF PAY [facility] Number: Effective Repository Date:2018 10/27/2018 JADA W Primary JADA W [place] [id number] E Insurance:MEDICARE BRENEMANDOB: [facility] [id number] Number: Repository [id number]: 330 [id number] [phone] () Date:2018-10-27 10/27/2018 Secondary JADA W [place] Insurance:AULTCAREPol BRENEMANDOB: [facility] icy Number: [id number] Hospital [id number] Repository Date:0084-40-88ZL [address] [place] [address]XF: 10/27/2018 Tertiary NOT GIVENUNK [place] Insurance:SELF PAY [facility] Number: Effective Repository Date:2018-10-27 10/27/2018 JADA W Primary JADA W [place] [id number] E Insurance:MEDICARE BRENEMANDOB: [facility] [id number] Number: Repository [address]Kjo: 330 [id number] [phone] () Date:2018-10-27 10/27/2018 Secondary JADA W [place] Insurance:AULTCAREPol BRENEMANDOB: Community icy Number: [id number] Hospital [id number] Repository Date:5479-82-29SI[address] [address]NB: 10/27/2018 Tertiary NOT GIVENUNK [place] Insurance:SELF PAY [facility] Number: Effective Repository Date:2018-10-27 10/27/2018 JADA W Primary JADA W [facility] BRENEMANDOB: Insurance:MEDICARE BRENEMANDOB: Foundation E PART B INSCOPolicy [id number] Repository [facility] [address] Number: E [facility] [address] [place] [address] [id number] [address], [place] [address]~[email or web address]@[facility] Date:2018-10-2494821Tox: (222) D-Sight~BRIIYBREN 9997-86-46Xwqx76-68Ebka [phone] [email or web address] Name:PCGS (HP)Tel: (222) MTel: (072) Administrators [facility] [phone] (WP) [phone] () [address] [place] [address]HF: 10/27/2018 Secondary [facility] Insurance:AULTCARE BRENEMANDOB: [facility] [id number] Number: [id number] Repository [id number][facility] Date:2018-10-24 106[facility] [place] 7791-30-52Jvpc [address]Sfn: (988) Name:[facility] [phone] [place] [address] ()Tel: [phone]: (wp) [phone] 10/27/2018 [facility] BRENEMANDOB: Insurance:SELF PAY BRENEMANDOB: [facility] E INSCOPolicy Number: [id number] Repository [facility] Effective E [facility] [id number], Date:2018-10-27 [place]NS[place], [place] 4919-77-26Mbsy Name:[facility] [address]Ftw: [email or web address]@[facility] OO.COM~BRIIYBREN (HP)Tel: [phone]) [email or web address] [phone] (WP) MTel: () 10/27/2018 Secondary [facility] Insurance:AULTCARE BRENEMANDOB: Foundation T1KCrixjc Number: [id number] Repository [id number] Date:2018-10-27 - ARH340GUSVQMF, 5334-03-60Jcfl [place] [address]Vpd: 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 [address] [place] [address] ()Tel: [phone]: ([phone]) [phone] 10/19/2018 JADA Graff Primary JADA [facility] BRENEMANDOB: Insurance:MEDICARE BRENEMANDOB: Foundation E PART A INSCOPolicy [id number] Repository [facility] Number: Tiffanie [facility] [id number], [id number], [place] Date:2018-10-19 [place] [address]Gpw: [id number]~[email or web address]@[facility] 5145-31-92Uxdb D-Sight~SAMIR Name:MMail Code AG ()Tel: [phone] [email or web address] [phone] (WP) MTel: (688) 839160Gyepvbfn, [place] [phone] () [address]DK: 10/19/2018 Secondary JADA [facility] Insurance:MEDICARE BRENEMANDOB: Foundation PART B INSCOPolicy [id number] Repository Number: Tiffanie [facility] [id number] [id number], Date:2018-10-19 - [place] [address]Adj: 0761-82-60Bvqz Name:[facility] ()Tel: (572) Administrators LLCPO [phone] (WP) [address] [place] [address]WN: 10/19/2018 Tertiary [facility] Insurance:AULTCARE BRENEMANDOB: [facility] [id number] Number: [id number] Repository [id number] E [facility] Date:2018-10-19 - [id number], 3828-28-87Lcdp [place] [address]Ycq: 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 [address] [place] [address] ()Tel: [phone]: (wp) [phone] 10/13/2018 JADA W Primary JADA W [place] [id number] E Insurance:MEDICARE BRENEMANDOB: Community [facility] [id number] [place] Number: Repository [id number]: 330 [id number] [phone] (HP) Date:2018-10-13 10/13/2018 Secondary JADA W [place] Insurance:AULTCAREPol BRENEMANDOB: Community icy Number: [id number] Hospital [id number] Repository Date:2829-94-07YU [address] [address]PY: 10/13/2018 Tertiary NOT GIVENUNK [place] Insurance:SELF PAY [facility] Number: Effective Repository Date:2018-10-13 10/13/2018 JADA W Primary JADA W [place] [id number] E Insurance:MEDICARE BRENEMANDOB: Community [facility] [id number] Number: Repository [id number]: 330 [id number] [phone] (HP) Date:2018-10-13 10/13/2018 Secondary JADA W [place] Insurance:AULTCAREPol BRENEMANDOB: [facility] icy Number: [id number] Hospital [id number] Repository Date:7501-97-54KG [address] [address]LV: 10/13/2018 Tertiary NOT GIVENUNK [place] Insurance:SELF PAY [facility] Number: Effective Repository Date:2018-10-13 10/13/2018 JADA W Primary JADA W [place] [id number] E Insurance:MEDICARE BRENEMANDOB: Community [facility] [id number] Number: Repository [address]Jjs: 330 [id number] [phone] (HP) Date:2018-10-13 10/13/2018 Secondary JADA W [place] Insurance:AULTCAREPol BRENEMANDOB: [facility] icy Number: [id number] Hospital [id number] Repository Date:5162-87-40FO [address] [place] [address]CW: 10/13/2018 Tertiary NOT GIVENUNK [place] Insurance:SELF PAY [facility] Number: Effective Repository Date:2018-10-13 10/13/2018 JADA W Primary JADA W [place] [id number] E Insurance:MEDICARE BRENEMANDOB: Community [facility] [id number] Number: Repository [address]Yvx: (858) [id number] [phone] (HP) Date:2018-10-13 10/13/2018 Secondary JADA W [place] Insurance:AULTCAREPol BRENEMANDOB: Community icy Number: [id number] Hospital [id number] Repository Date:5432-01-86WY [facility] [address], [place] [address]UK: 10/13/2018 Tertiary NOT GIVENUNK [place] Insurance:SELF PAY [facility] Number: Effective Repository Date:2018-10-13 10/13/2018 JADA W Primary JADA W [place] [id number] E Insurance:MEDICARE BRENEMANDOB: Community [facility] [id number] Number: Repository [id number]: 330 [id number] [phone] () Date:2018-10-13 10/13/2018 Secondary JADA W [place] Insurance:AULTCAREPol BRENEMANDOB: Community icy Number: [id number] Hospital [id number] Repository Date:5027-27-65JZ [address] [place] [address]UQ: 10/13/2018 Tertiary NOT GIVENUNK [place] Insurance:SELF PAY [facility] Number: Effective Repository Date:2018-10-13 10/13/2018 JADA W Primary JADA W [place] [id number] E Insurance:MEDICARE BRENEMANDOB: Community [facility] [id number] Number: Repository [address]Sap: 330 [id number] [phone] (HP) Date:2018-10-13 10/13/2018 Secondary JADA W [place] Insurance:AULTCAREPol BRENEMANDOB: Community icy Number: [id number] Hospital [id number] Repository Date:6732-34-80OH [address] [place] [address]RN: 10/13/2018 Tertiary NOT GIVENUNK [place] Insurance:SELF PAY [facility] Number: Effective Repository Date:2018-10-13 10/13/2018 JADA W Primary JADA W [place] [id number] E Insurance:MEDICARE BRENEMANDOB: Community [facility] [id number] Number: Repository [address]Bfe: 330 [id number] [phone] (HP) Date:2018-10-13 10/13/2018 Secondary JADA W [place] Insurance:AULTCAREPol BRENEMANDOB: Community icy Number: [id number] Hospital [id number] Repository Date:3934-51-71XT [facility] [address] [place] [address]EU: 10/13/2018 Tertiary NOT GIVENUNK [place] Insurance:SELF PAY [facility] Number: Effective Repository Date:2018-10-13 10/13/2018 JADA W Primary JADA W [place] [id number] E Insurance:MEDICARE BRENEMANDOB: Community [facility] [id number] Number: Repository [address]Nuw: 330 [id number] [phone] (HP) Date:2018-10-13 10/13/2018 Secondary JADA W [place] Insurance:AULTCAREPol BRENEMANDOB: Community icy Number: [id number] Hospital [id number] Repository Date:1512-93-54GE [address] [place] [address]IF: 10/13/2018 Tertiary NOT GIVENUNK [place] Insurance:SELF PAY [facility] Number: Effective Repository Date:2018-10-13 10/13/2018 JADA W Primary JADA W [place] [id number] E Insurance:MEDICARE BRENEMANDOB: Community [facility] [id number] Number: Repository [id number]: (737) [id number] [phone] (HP) Date:2018-10-13 10/13/2018 Secondary JADA W [place] Insurance:AULTCAREPol BRENEMANDOB: [facility] icy Number: [id number] Hospital [id number] Repository Date:7069-75-74SU [facility] [address] [place] [address]WR: 10/13/2018 Tertiary NOT GIVENUNK [place] Insurance:SELF PAY [facility] Number: Effective Repository Date:2018-10-13 10/13/2018 JADA W Primary JADA W [place] [id number] E Insurance:MEDICARE BRENEMANDOB: Community [facility] [id number] Number: Repository [id number]: (553) [id number] [phone] () Date:2018-10-13 10/13/2018 Secondary JADA W [place] Insurance:AULTCAREPol BRENEMANDOB: Community icy Number: [id number] Hospital [id number] Repository Date:3464-99-75NC [facility] [address] [place] [address]XW: 10/13/2018 Tertiary NOT GIVENUNK [place] Insurance:SELF PAY [facility] Number: Effective Repository Date:2018-10-13 10/13/2018 JADA W Primary JADA W [place] [id number] E Insurance:MEDICARE BRENEMANDOB: Community [facility] [id number] Number: Repository [address]Myl: 330 [id number] [phone] (HP) Date:2018-10-13 10/13/2018 Secondary JADA Graff [place] Insurance:AULTCAREPol BRENEMANDOB: [facility] Number: [id number] Hospital [id number] Repository Date:5716-85-55OH [address] [place] [address]CG: 10/13/2018 Tertiary NOT GIVENUNK [place] Insurance:SELF PAY [facility] Number: Effective Repository Date:2018-10-13 10/10/2018 JADA W Primary JADA Graff [facility] BRENEMANDOB: Insurance:MEDICARE BRENEMANDOB: [facility] E PART B INSCOPolicy [id number] Repository [facility] Number: [facility] [id number], [id number] [address] Date:2018-10-10 - [place] [address]Nct: [id number]~[email or web address]@[facility] [id number] D-Sight~SAMIR Name:[facility] ()Tel: [phone] [email or web address] Administrators [facility] [phone] () MTel: [phone] [address] [phone], [phone] () [place] [address]RY: 10/10/2018 Secondary JADA Red 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 [address] [place] [address] ()Tel: [phone]) [phone]: () [phone] 10/03/2018 JADA Graff Primary JADA Graff Sandra [id number] Insurance:MEDICARE BRENEMANDOB: [facility] [place], [place] [facility] A [facility] [id number] Hospital [place] Number: Repository [address]Tlh: (804) [id number] [phone] () Date:2018-10-01 10/03/2018 Secondary JADA W Sandra Insurance:AULTCAREPol BRENEMANDOB: [facility] Number: [id number] Hospital [id number] Repository Date:6189-78-03LG [address] [address]FW: 10/03/2018 Tertiary NOT GIVENUNK [place] Insurance:SELF PAY [facility] Number: Effective Repository Date:2018-10-01 09/30/2018 JADA Primary JADA [facility] BRENEMANDOB: Insurance:AULTCARE BRENEMANDOB: Foundation E [id number] Number: [id number] Repository [facility] [id number] E [facility] LST545GLADDAR, Date:2018-09-30 [place], [place] 0478-89-86Qmzo [place] [address]Rsx: [address]~ZP3738@[facility] 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 Box D-Sight~[address] ()Tel: ([phone]) [email or web address] [address]VJ: (WP) MTel: [phone] () 09/19/2018 JADA [facility] JADA [facility] BRENEMANDOB: Insurance:MEDICARE BRENEMANDOB: Foundation PART A INSCOPolicy [id number] Repository [address] AVTiffanie Number: [address] [facility], [place] [id number] [facility] [place] [address]~NM0994@[facility] Date:2018-09-19Tel: (964) D-Sight~100e.comKALKASK[facility] 0161-34-28Nxse-91-65Vvww [phone] [email or web address] Name:MMail Code AG ()Tel: (372) MTel: [phone] [phone] (WP) [phone] (HP) 720376UwclxqlvTOSHIA [address]NH: 09/19/2018 Secondary [facility] Health Insurance:AULTCARE BRENEMANDOB: [facility] [id number] Number: [id number] Repository [id number] [address] Date:2018-09-19 - [place] 4446-24-26Tjkf [address]Lfe: (330) Name:[facility] [phone] [place] [address] ()Tel: [phone]: (wp) [phone] 09/08/2018 [facility] BRENEMANDOB: Insurance:MEDICARE BRENEMANDOB: [facility] PART A INSCOPolicy [id number] [address] Number: [address] [place], [place] [id number] [address]~OF0239@[facility] Date:2017-05-04Tel: (574) D-Sight~[facility] AV[facility]ALEYBKALK[facility] 1104-32-42Fshs-85-76Xevy [phone] [email or web address] Name:MMail Stevenson ESTRELLA ()Tel: (113) MTel: [phone] 600DZ [phone] (WP) [phone] () [place], [place] [address]LB: 09/08/2018 Secondary [facility] Health Insurance:MEDICARE BRENEMANDOB: Foundation PART B INSCOPolicy [id number] Repository Number: [address] [id number] [place] Date:2017-05-04Tel: (116) 9404-25-48Laaf [phone] Name:PCGS ()Tel: ([phone]) Administrators LLCPO [phone] (WP) [address]Auvwhsnzw, [place] [address]GK: 09/08/2018 Tertiary [facility] Health Insurance:AULTCARE BRENEMANDOB: [facility] [id number] Number: [id number] Repository [id number] [address] Date:2017-05-04 - [place] 1283-87-91Mupl [address]Gso: (330) 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 [phone] [place], [place] ()Tel: [phone]) [phone]: (wp) [phone] 06/26/2018 [facility] Primary [facility] BRENEMANDOB: Insurance:MEDICARE BRENEMANDOB: [facility] PART BPolicy Number: [id number] [id number] [address] [place] Date:2018-06-26 - [place] [address]~MM1471@[facility] 7676-10-07Womt 27[address]Xdg: (330) D-Sight~SAMIR Name:[facility] LAWTONOneal [phone] [email or web address] Administrators LLCPO (HP)Tel: (330) MTel: (330) [address] 83402Xntehdgrk, [phone] (WP) [phone] (HP) [place] [address]PC: 06/26/2018 Secondary [facility] Insurance:AULTCARE BRENEMANDOB: [facility] [id number] Number: [id number] Repository [id number] [address] Date:2018-06-26 - [place] 7960-17-50Rlby [address]Vvk: (330) 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 [phone] [place] (HP)Tel: [phone]) [phone]: (WP) [phone] 05/27/2018 [facility] Primary [facility] BRENEMANDOB: Insurance:MEDICARE BRENEMANDOB: [facility] PART APolicy Number: [id number] [address] [id number] [address] [place], [place] Date:2018-05-27 - [place] [address]~DH9289@[facility] 0228-21-29Haik 637[address]Xly: (330) D-Sight~SAMIR Name:[facility] [phone] [email or web address] 600PO Box (HP)Tel: (330) MTel: (330) 630177KefishfwMODOC, [place] [phone] (WP) [phone] (HP) [address]LV: 05/27/2018 Secondary [facility] Insurance:MEDICARE BRENEMANDOB: Foundation PART BPolicy Number: [id number] Repository [id number] [address] Date:2018-05-27 - [place] 7286-20-60Ctgz [address]Hgc: (330) Name:[facility] LAWTONOneal [phone] Administrators LLCPO (HP)Tel: (330) [address] [address]Saoudyejy, [phone] (WP) [place] [address]PB: 05/27/2018 Tertiary JADA Graff [facility] Insurance:AULTCARE BRENEMANDOB: [facility] [id number] Number: [id number] Repository [id number] [address] Date:2018-05-27 - [place] 6798-06-06Nrgh [address]Njd: (330) 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 [phone] [email or web address] Administrators LLC (HP)Tel: (062) MTel: 330) [address] 706[address]Chwtmikuz, [phone] (WP) [phone] () [place] [address]IR: 05/23/2018 Secondary JADA [facility] Insurance:AULTCARE BRENEMANDOB: [facility] [id number] Number: [id number] Repository [id number] [address] Date:2018-05-23 - [place] 1403-63-96Napo 26[address]Qsz: (330) Name:[facility] [phone] [place] [address] (HP)Tel: [phone]) [phone]: (wp) [phone] 05/17/2018 JADA [facility] JADA [facility] BRENEMANDOB: Insurance:SELF BRENEMANDOB: [facility] PAYPolicy Number: [id number] [address] Effective [address] [place], [place] Date:2018-05-13 [place] [address]~NC2265@[facility] 6236-03-04Bdph Name:8 236[address]Nnl: (330) Ahaali.[employer]~SAMIR [phone] [email or web address] (HP)Tel: (503) MTel: (WA) [phone] () 05/17/2018 Secondary [facility] Health Insurance:MEDICARE BRENEMANDOB: Foundation PART BPolicy Number: [id number] Repository [id number] [address] Date:2018-05-13 [place] 8192-82-17Utnl [address]Fsk: (330) Name:[facility] [phone] [facility] ()Tel: 330 [address]Lisalijgj, [phone] (WP) [place] [address]IP: 05/17/2018 Tertiary [facility] BRENEMANDOB: [facility] [id number] Number: [id number] Repository [id number] [address] Date:2018-05-13 [place] 4190-48-55Tvif [address]Nyo: (330) Name:[facility] [phone] [place] [address] ()Tel: [phone]) [phone]: (wp) [phone] 04/25/2018 [facility] BRENEMANDOB: Insurance:MEDICARE BRENEMANDOB: [facility] PART APolicy Number: [id number] [id number] [address] [place] Date:2018-04-25 - [place] [address]~OJ1893@[facility] 0883-63-62Ztzy 59[address]Uut: (117) OO.COM~BRIIIVANNAJEAN PIERRE Name:[facility] [phone] [email or web address] 600PO [address] (HP)Tel: 330 MTel: (330) 547202BabgxfcxMODOC, [place] [phone] (WP) [phone] (HP) [address]EX: 04/25/2018 Secondary [facility] Health Insurance:MEDICARE BRENEMANDOB: Foundation PART BPolicy Number: [id number] Repository [id number] [address] Date:2018-04-25 - [place] 1914-31-60Frai 45[address]Unz: (330) Name:[facility] [address] Administrators LLCPO (HP)Tel: (330) [address]2068Tpldqvhhh, [phone] (WP) [place] [address]WS: 04/25/2018 [facility] Insurance:AULTCARE BRENEMANDOB: Foundation [id number] Number: [id number] Repository [id number] [address] Date:2018-04-25 - [place] 1613-17-77Pumn 595[address]Kzc: (330) Name:[facility] [address] [phone] [place], [place] (HP)Tel: ([phone]) [phone]: () [phone] 04/20/2018 [facility] BRENEMANDOB: Insurance:MEDICARE BRENEMANDOB: Foundation PART APolicy Number: [id number] [address] [id number] [address] [place] Date:2018-04-20 - [place] [address]~XZ1645@[facility] 3574-24-77Akvf 14299Sfd: (330) D-Sight~SAMIR Name:MMail Code DELORES [phone] [email or web address] [address] Box (HP)Tel: 330 MTel: 330) 799081EepcxqxaMODOC, [place] [phone] (WP) [phone] (HP) [address]FK: 04/20/2018 Secondary [facility] Insurance:MEDICARE BRENEMANDOB: Foundation PART BPolicy Number: [id number] Repository [id number] [address] Date:2018-04-20 - [place] 7991-13-53Ppmn 34681Khy: (330) Name:[facility] LAWTONOneal [phone] Administrators LLCPO (HP)Tel: 330) [address] 39767Wkqofsmlz, [phone] (WP) [place] [address]QG: 04/20/2018 Tertiary [facility] Insurance:AULTCARE BRENEMANDOB: [facility] [id number] Number: [id number] Repository [id number] [address] Date:2018-04-20 - [place] 8056-43-36Wthc 33587Txr: (330) Name:[facility] Prachi [phone] [place] [address] ()Tel: ([phone]) [phone]: (wp) [phone] 04/01/2018 [facility] Primary [facility] BRENEMANDOB: Insurance:MEDICARE BRENEMANDOB: Foundation PART BPolicy Number: [id number] [id number] [address] [place] Date:2018-04-01 - [place] [address]~GO1505@[facility] 6525-79-10Vjat 68355Mqs: (330) D-Sight~BRIIYBREN Name:[facility] LAWTONOneal [phone] [email or web address] Administrators LLCPO (HP)Tel: (677) MTel: 330) [address]Rvacamnpp, [phone] (WP) [phone] (HP) [place] [address]ER: 04/01/2018 Secondary [facility] Insurance:AULTCARE BRENEMANDOB: Foundation W4SWandwm Number: [id number] Repository [id number] [address] Date:2018-04-01 - [place] 8421-16-38Ljne 440[address]Ksq: (330) 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 [phone] [place] [address] ()Tel: [phone]) [phone]: (wp) [phone] 04/01/2018 JADA Primary JADA [facility] BRENEMANDOB: Insurance:MEDICARE BRENEMANDOB: [facility] PART BPolicy Number: [id number] [id number] [address] [place] Date:2018-04-01 - [place] [address]~IK8977@[facility] 6577-82-28Igzb 99664Efq: 330) D-Sight~SAMIR Name:CECILIA [phone] [email or web address]rators [employer] (HP)Tel: (119) MTel: (255) [address] 09836Rfjrtnqog, [phone] (UJ) [phone] () [place] [address]CG: 04/01/2018 Secondary [facility] Insurance:AULTCARE BRENEMANDOB: [facility] [id number] Number: [id number] Repository [id number] [address] Date:2018-04-01 - [place] 6460-37-67Uhpe 547[address]Drk: (330) 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 [phone] [place] [address] ()Tel: [phone]: (wp) [phone] 02/07/2018 JADA [facility] BRENEMANDOB: Insurance:MEDICARE BRENEMANDOB: [facility] PART BPolicy Number: [id number] [address] [id number] [address] [place] Date:2018-02-07 - [place] [address]~UX1526@[facility] 4777-46-29Sypn 83020Gli: 330) D-Sight~BARRYBREN Name:[place] [phone] [email or web address] Administrators LLCPO (HP)Tel: ([phone]) MTel: (330) [address] 62717Gbglmbgsa, [phone] (WP) [phone] (HP) [place] [address]ER: 02/07/2018 Secondary [facility] Insurance:AULTCARE BRENEMANDOB: [facility] [id number] Number: [id number] Repository [id number] [address] Date:2018-02-07 - [place] 3601-50-76Owzg 638[address]Vcz: (330) Name:[facility] [phone] [place] [address] ()Tel: ([phone]) [phone]: (wp) [phone] 02/04/2018 [facility] BRENEMANDOB: Insurance:MEDICARE BRENEMANDOB: [facility] PART BPolicy Number: [id number] [id number] [address] [place] Date:2018-02-04 - [place] [address]~HZ2809@[facility] 6008-55-40Hxrs 75363Ddz: (082) D-Sight~[facility] Name:CECILIA [phone] [email or web address] Administrators LLCPO (HP)Tel: (500) MTel: (330) [address] 78937Slydjhzvn, [phone] (WP) [phone] () [place] [address]PK: 02/04/2018 Secondary [facility] Insurance:AULTCARE BRENEMANDOB: [facility] [id number] Number: [id number] Repository [id number] [address] Date:2018-02-04 - [place] 0570-35-14Idez 639[address]Dvk: (330) 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 [phone] [place] [address] ()Tel: ([phone]) [phone]: (wp) [phone] 01/28/2018 JADA Primary [facility] BRENEMANDOB: Insurance:MEDICARE BRENEMANDOB: [facility] PART BPolicy Number: [id number] [address] [id number] [address] [place] Date:2018-01-28 - [place] [address]~MX1636@[facility] 3862-80-39Cupp 38733Mqw: (644) OO.COM~JOSEJEAN PIERRE Name:CECILIA [phone] [email or web address] Administrators LLCPO (HP)Tel: (724) MTel: (951) [address] 78841Sxyszqwod, [phone] (WP) [phone] (HP) [place] [address]NJ: 01/28/2018 Secondary JADA Graff [facility] Insurance:AULTCARE BRENEMANDOB: [facility] [id number] Number: [id number] Repository [id number] [address] Date:2018-01-28 - [place] 7263-54-00Harl 29[address]Dex: (330) 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 [phone] [place], [place] ()Tel: ([phone]) [phone]: (wp) [phone] 01/03/2018 JADA Graff Primary JADA [facility] BRENEMANDOB: Insurance:MEDICARE BRENEMANDOB: Foundation PART BPolicy Number: [id number] [id number] [address] [place], [place] Date:2018-01-03 - [place] [address]~GY1979@[facility] 0104-98-95Rzrc 83198Yav: (089) [employer]COM~SAMIR Name:CECILIA [phone] [email or web address] Administrators LLCPO (HP)Tel: (294) MTel: 330) [address] 70357Jduizbhwi, [phone] (WP) [phone] (HP) [place] [address]XI: 01/03/2018 Secondary JADA Graff [facility] Insurance:AUCARE BRENEMANDOB: Foundation [id number] Number: [id number] Repository [id number] [address] Date:2018-01-03 - [place] 8719-39-07Fvhn 327[address]Cqa: (330) 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 [phone] [place] [address] ()Tel: ([phone]) [phone]: (wp) [phone] 12/31/2017 JADA Primary [facility] BRENEMANDOB: Insurance:MEDICARE BRENEMANDOB: Foundation PART BPolicy Number: [id number] [id number] [address] [place] Date:2017-12-31 [place] [address]~LT1409@[facility] 6428-99-18Effe 18924Mji: (884) D-Sight~BRIIDYLAN Name:[facility] [phone] [email or web address] Administrators LLCPO (HP)Tel: (543) MTel: (022) [address]Cohynmtzj, [phone] (WP) [phone] () [place] [address]ZA: 12/31/2017 Secondary JADA [facility] Insurance:AULTCARE BRENEMANDOB: Foundation [id number] Number: [id number] Repository [id number] [address] Date:2017-12-31 - [place] 2762-97-92Kjwi 08668Zkn: (330) 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 [phone] [place] [address] ()Tel: [phone]) [phone]: (wp) [phone] 12/10/2017 JADA [facility] JADA [facility]: Insurance:MEDICARE BRENEMANDOB: Foundation PART BPolicy Number: [id number] [id number] [address] [facility] [place] Date:2017-11-27 - [facility] [place] [address]~KG5189@[facility] 9428-43-07Eeez 93206Tap: (796) D-Sight~SAMIR Name:[facility] LAWTONOneal [phone] [email or web address] Administrators LLCPO (HP)Tel: (819) MTel: (260) [address]Tenvuisva, [phone] (RZ) [phone] () [place] [address]CN: 12/10/2017 [facility]: [place] [address]APolicy Number: [id number] [facility] [id number] [address] Date:2017-11-27 - [place]CRU[place], [place] 2159-39-06Sgpr 14968Qmx: (330) Name:[facility] [phone] [place], [place] ()Tel: [phone]) [phone]: (wp) [phone]
== END 2018-11-07 16:30 | disposition short-term general hospital (02) | DRG 463 ==
LOC: ED 14:20 → MS3 11-06 07:15
PROVIDERS: Internal Medicine Nephrology; Admitting Provider Internal Medicine; Emergency Provider Emergency Medicine; Visit Provider Internal Medicine
DX: S72.144A Nondisplaced intertrochanteric fracture of right femur, initial encounter for closed fracture (principal); N17.0 Acute kidney failure with tubular necrosis; I13.0 Hypertensive heart and chronic kidney disease with heart failure and stage 1 through stage 4 chronic kidney disease, or unspecified chronic kidney disease; L97.429 Non-pressure chronic ulcer of left heel and midfoot with unspecified severity; Y92.092 Bedroom in other non-institutional residence as the place of occurrence of the external cause; M16.11 Unilateral primary osteoarthritis, right hip; I25.5 Ischemic cardiomyopathy; I25.10 Atherosclerotic heart disease of native coronary artery without angina pectoris; E66.01 Morbid (severe) obesity due to excess calories; G47.33 Obstructive sleep apnea (adult) (pediatric); E78.5 Hyperlipidemia, unspecified; E11.22 Type 2 diabetes mellitus with diabetic chronic kidney disease; N18.3 Chronic kidney disease, stage 3 (moderate); E11.51 Type 2 diabetes mellitus with diabetic peripheral angiopathy without gangrene; E87.6 Hypokalemia; E83.39 Other disorders of phosphorus metabolism; K27.9 Peptic ulcer, site unspecified, unspecified as acute or chronic, without hemorrhage or perforation; D64.9 Anemia, unspecified; L89.612 Pressure ulcer of right heel, stage 2; W18.30XA Fall on same level, unspecified, initial encounter; E11.42 Type 2 diabetes mellitus with diabetic polyneuropathy; T36.8X5A Adverse effect of other systemic antibiotics, initial encounter; B95.62 Methicillin resistant Staphylococcus aureus infection as the cause of diseases classified elsewhere; B95.4 Other streptococcus as the cause of diseases classified elsewhere; Z95.1 Presence of aortocoronary bypass graft; Z95.810 Presence of automatic (implantable) cardiac defibrillator; Z95.5 Presence of coronary angioplasty implant and graft; Z68.38 Body mass index [BMI] 38.0-38.9, adult; Z79.4 Long term (current) use of insulin
CPT/HCPCS: 71045; 72192; 73502; 73620; 80048; 80061; 81001; 82570; 82962; 83036; 83735; 84100; 84300; 85027; 85610; 86850; 86900; 87070; 87077; 87086; 87186; 87205; 87640; 87641; 93005; 94762; 97802; 99282; J7030; J7040; J7050; A4216; J2270; J2405

== ENCOUNTER 2018-12-08 03:22 | Emergency (ER) | payer MEDICARE, OTHER, SELFPAY ==
[2018-11-05 15:05] VITALS: BMI 38.9
[2018-12-08 03:23] VITALS: BP 174/86; PULSE 89; RESP 16; TEMP 36.4; O2SAT 96; BMI 36.1
--- NOTE | 2018-12-08 04:51 | VDLE_ITS ---
Reason For Study: LEG PAIN RIGHT LEFT CFV is compressible, spontaneous, phasic, CFV is compressible, spontaneous, phasic, competent and demonstrates normal competent, and demonstrates normal augmentation. augmentation. FV is compressible, spontaneous, phasic, competent and demonstrates normal augmentation. POP V is compressible, spontaneous, phasic, competent and demonstrates normal augmentation. T/P Trunk is compressible. PTV is compressible. RT PerV is compressible. GSV harvested. Interpretation Summary Deep veins of the right lower extremity are patent and compressible segmentally. There is no evidence of right lower extremity deep vein thrombosis. Valvular competence appears intact within the proximal deep venous system on the right . The right greater saphenous vein is absent, having been previously harvested. Ordering Physician: Yuniel Maurer Performed By: Luisa Page RVT
--- NOTE | 2018-12-08 04:51 | RAD_ITS ---
HISTORY: FELL 1 MONTH AGO FX RT PROXIMAL FEMURRECENTLY DISCHARGEDNOW C/O PAIN IN RT HIP COMPARISON: 11/05/2018 FINDINGS: XR AP pelvis and right hip 5 views Recent right intertrochanteric fracture transfixed with a right hip compression screw and long intramedullary femoral saira. The surgical hardware appears in good position. No loosening of the hardware or new fracture is seen. The distal saira is anchored with 2 screws placed in a transverse fashion. Redemonstration of advanced osteoarthritis of the right hip evident by marked joint space narrowing and accompanied by subchondral cyst formation, spurring, and reactive sclerosis. Vas deferens calcifications and these may be seen with diabetes. Atherosclerotic calcifications noted. RAD/HIP, UNI W/ Pelvis 2-3 Views IMPRESSION: 1. No recent fracture or acute disease identified. 2. Postsurgical and chronic changes, as above. at 0710 Reported and signed by: Ruy Singletary MD Electronically Signed: Ruy Singletary, at 7:09 EST Tel , Service support ,
[2018-12-08] MEDS: proMETHazine 25 MG/ML Syringe 6.25 MG IV (05:53)
[2018-12-08] MEDS: Morphine 4 MG/ML Syringe IV (05:53)
[2018-12-08 05:55] VITALS: BP 180/94; PULSE 91; RESP 16; O2SAT 94
[2018-12-08 06:04] LABS: Absolute Lymphocyte Count 1.51 X10^3/ul (0.83-4.51); Absolute Neutrophil Count 4.4 X10^3/uL (2.0-7.7); Basophil# 0.05 X10^3/uL; Basophil% 0.7 % (0-1); Eosinophil# 0.56 X10^3/uL; Eosinophils% 7.6 % (0-5); Hematocrit 36.9 % (40-54); Hemoglobin 11.5 g/dl (13.0-16.5); Lymphocyte # 1.51 X10^3/ul (4.0); Lymphocyte % 20.4 % (19-41); Mean Corp Hgb Conc 31.2 g/gl (32-36); Mean Corpuscular Hgb 29.4 pg (27.0-32.0); Mean Corpuscular Volume 94.4 fL (80-94); Mean Platelet Vol. 9.8 fl (6.2-12.0); Monocyte# 0.91 X10^3/uL; Monocyte% 12.3 % (0-10); Neutrophil # 4.35 X10^3/uL (2.7-7.7); Neutrophil % 58.9 % (47-70); Platelet Count 168 K/mm3 (150-450); RBC Distribution Width CV 14.8 % (11.6-14.6); RBC Distribution Width SD 48.9 fl (35.1-43.9); Red Blood Count 3.91 M/mm3 (4.6-6.2); White Blood Count 7.4 K/mm3 (4.4-11.0)
[2018-12-08 06:05] LABS: POSITIVE COUNT NO; POSITIVE DIFFERENTIAL NO; POSITIVE MORPHOLOGY NO
--- NOTE | 2018-12-08 06:17 | ED.RN ---
Right port accessed easily with 20g x 0.75 power loc. Good blood return. Port flushed with normal saline. Dressing applied to secure the port. Jennifer Montalvo RN
[2018-12-08 06:19] LABS: BUN 21 mg/dL (7-18); BUN/Creat Ratio 17.2 RATIO (10-20); Calcium,Total 8.3 mg/dL (8.5-10.1); Creatinine, Serum 1.22 mg/dL (0.70-1.30); EST Glomerular Filtration Rate 64 mL/min (>60); Est Glom Filt Rate - Afr Amer 77 mL/min (>60); Estimated Creatinine Clearance 56.65 ml/min; Glucose 171 mg/dL (74-106); Potassium 4.2 mmol/L (3.5-5.1); Sodium Level 138 mmol/L (136-145)
[2018-12-08 06:20] LABS: Anion Gap 8 (5-15); Chloride 103 mmol/L (98-107)
[2018-12-08 06:46] LABS: International Normalized Ratio 1.2; Prothrombin Time (Protime)PT. 14.8 SECONDS (11.7-14.9)
--- NOTE | 2018-12-08 08:00 | ED.VISSUMM ---
- ER Visit Summary Date of Service: 12/08/18 Chief Complaint: Right hip pain History of Present Illness: The patient is a 63 M who presents with right hip pain. He recently had a right hip fracture and underwent ORIF. This was a couple of weeks ago. He went to rehab. He recently came home. He does have Percocet at home. However over the past 2 days he has developed increasing pain from his hip down to about his knee. No paresthesias or weakness. Physical Examination: Afebrile hypertensive at 174/86 vitals otherwise normal Heart regular rate and rhythm Lungs are clear Abdomen soft Active full range of motion of the right lower extremity, surgical scars well-healed clean dry intact palpable dorsalis pedis pulses asymmetric lower extremity edema, 3+ on the right, 1+ on the left normal sensation light touch with brisk capillary refill no calf tenderness Test Results: CBC BMP unremarkable. 1.2. Hip x-ray shows no recent fracture, there are postsurgical changes. Venous duplex pending. Emergency Department Course and Treatment: Given the patient's increase in pain and edema will obtain a venous duplex to rule out DVT. X-ray and laboratory studies were unremarkable. He was given IV morphine here. Patient signed out to the oncoming physician to follow-up on venous duplex results but if negative I believe the patient can be discharged. He does have opioid analgesics at home. Treatment Plan: [] Disposition: Pending venous duplex Impression: Postoperative right hip pain This note was generated with [employer] dictation software. It may contain incorrect words, spelling, and punctuation that were not noted in review of the chart prior to signing ED Disposition - Plan for ED Patient: Referrals: [facility] ,Out of [Primary Care Provider] -
--- NOTE | 2018-12-08 08:02 | ED.DEP ---
ED Disposition - Plan for ED Patient: Instructions: ED Post Op Pain Referrals: [facility],Out of [Primary Care Provider] -
[2018-12-08] MEDS: Ketorolac 30 MG/ML Syringe IV (08:47)
[2018-12-08 08:48] VITALS: BP 184/78; PULSE 75
== END 2018-12-08 08:54 | disposition home or self-care (01) ==
PROVIDERS: Emergency Provider Emergency Medicine
DX: G89.18 Other acute postprocedural pain (principal); M25.551 Pain in right hip; M16.11 Unilateral primary osteoarthritis, right hip; I25.10 Atherosclerotic heart disease of native coronary artery without angina pectoris; I10 Essential (primary) hypertension; E78.00 Pure hypercholesterolemia, unspecified; E11.9 Type 2 diabetes mellitus without complications; I25.2 Old myocardial infarction; Z95.5 Presence of coronary angioplasty implant and graft; R60.0 Localized edema
CPT/HCPCS: 73502; 80048; 85025; 85610; 93971; 96374; 96375; 99284; A4216

== ENCOUNTER 2018-12-15 18:05 | Emergency (ER) | payer MEDICARE, OTHER, SELFPAY ==
[2018-12-15 18:07] VITALS: BP 152/75; PULSE 79; RESP 18; TEMP 36.4; O2SAT 96; BMI 31.3
[2018-12-15 20:24] LABS: Absolute Lymphocyte Count 1.72 X10^3/ul (0.83-4.51); Absolute Neutrophil Count 4.4 X10^3/uL (2.0-7.7); Basophil# 0.04 X10^3/uL; Basophil% 0.6 % (0-1); Eosinophil# 0.25 X10^3/uL; Eosinophils% 3.5 % (0-5); Hematocrit 34.8 % (40-54); Hemoglobin 11.2 g/dl (13.0-16.5); Lymphocyte # 1.72 X10^3/ul (4.0); Lymphocyte % 24.1 % (19-41); Mean Corp Hgb Conc 32.2 g/gl (32-36); Mean Corpuscular Hgb 29.9 pg (27.0-32.0); Mean Platelet Vol. 9.3 fl (6.2-12.0); Monocyte# 0.71 X10^3/uL; Monocyte% 9.9 % (0-10); Neutrophil # 4.41 X10^3/uL (2.7-7.7); Neutrophil % 61.8 % (47-70); Platelet Count 135 K/mm3 (150-450); RBC Distribution Width CV 14.3 % (11.6-14.6); RBC Distribution Width SD 46.5 fl (35.1-43.9); Red Blood Count 3.74 M/mm3 (4.6-6.2); White Blood Count 7.1 K/mm3 (4.4-11.0)
[2018-12-15 20:27] LABS: POSITIVE COUNT NO; POSITIVE DIFFERENTIAL NO; POSITIVE MORPHOLOGY NO
[2018-12-15 20:32] LABS: International Normalized Ratio 1.3; Prothrombin Time (Protime)PT. 15.5 SECONDS (11.7-14.9)
[2018-12-15 20:33] LABS: Partial Thromboplast Time 32.2 Seconds (24.1-36.2)
[2018-12-15 20:37] LABS: ALB/GLOB Ratio 0.7 RATIO (0.9-2.4); AST(SGOT) 21 U/L (15-37); Alanine Aminotransfer ALT/SGPT 17 U/L (16-61); Albumin, Serum 2.9 g/dL (3.2-5.0); Alkaline Phosphatase 153 U/L (45-117); Anion Gap 6 (5-15); BUN 22 mg/dL (7-18); BUN/Creat Ratio 15.2 RATIO (10-20); Calcium,Total 8.1 mg/dL (8.5-10.1); Chloride 104 mmol/L (98-107); Creatinine, Serum 1.45 mg/dL (0.70-1.30); EST Glomerular Filtration Rate 52 mL/min (>60); Est Glom Filt Rate - Afr Amer 63 mL/min (>60); Estimated Creatinine Clearance 52.82 ml/min; Glucose 388 mg/dL (74-106); Protein, Total 6.9 g/dL (6.4-8.2); Sodium Level 137 mmol/L (136-145)
[2018-12-15] MEDS: HYDROcodone Bitartrate/Apap 5/325 Tablet PO (20:42)
--- NOTE | 2018-12-15 21:18 | ED.DCSUM_ITS ---
- ER Visit Summary Date of Service: 12/15/18 Chief Complaint: Bilateral lower extremity swelling and bruising right lower extremity History of Present Illness: The patient is a 63 M with multiple significant past medical history problems presents because of increased swelling of both legs right slightly greater than left. He has had swelling in the right leg since hip surgery 1 year ago. He has history of congestive heart failure, CHF. He denies increased orthopnea and denies PND. He states he is on no anticoagulant. He is on Plavix. He denies hematuria, hemoptysis, melena or maroon colored stool. He denies hematochezia. Review of systems is remarkable for chronic dyspnea, cough and dyspnea on exertion. The new complaint is the bruising easily. Physical Examination: Vital signs noted and unremarkable. BMI is 31.4. HEENT exam is unremarkable. Conjunctive is pink. He appears pale, however. Lungs are clear to auscultation with good move air bilaterally. Heart is regular. Lower extremity exam reveals 2-3+ pitting edema bilaterally. Right may be slightly worse than left. Difficult to assess pulses because of the amount of edema. There is ecchymotic areas right leg and dorsum of the right foot. There is no pain to palpation over the phalanges, metatarsals, tarsal bones or tibia and fibula. He has full active range of motion of the hip, knee and ankle. He is alert and oriented x3. Test Results: CBC is remarkable for an H&H 11.2 and 24.8, which is a chronic problem for the patient. BUN/creatinine 24 1.45. Coags normal. Albumin is low. Emergency Department Course and Treatment: To evaluate patient's lymphedema will obtain albumin and total protein to determine if this is the cause since he has no symptoms of orthopnea, PND or increased dyspnea on exertion. Because he appears pale and affect is bruising we will obtain an CBC to assess H&H and platelet count. Coags were ordered as well because of the bruising issue. Treatment Plan: Take medication as directed, elevate lower extremities, follow- up with PCP part of the reason for your lymphedema is the low albumin. Disposition: Discharge to home follow-up with physician Impression: 1. Bilateral lymphedema 2. History of CHF 3. History of hypoalbuminemia 4. Chronic end-stage renal disease 5. Anemia nonspecified secondary to chronic illness 6. History of coronary disease 7. History of obstructive sleep apnea This note was generated with [employer] dictation software. It may contain incorrect words, spelling, and punctuation that were not noted in review of the chart prior to signing ED Disposition - Plan for ED Patient: Disposition: Home or Assisted Living Instructions: ED Lymphedema Referrals: [facility],Out of [Primary Care Provider] - 3-5 Days
[2018-12-15 21:28] VITALS: BP 145/107; PULSE 78; RESP 15; RESP 16; O2SAT 97
== END 2018-12-15 22:00 | disposition home or self-care (01) ==
PROVIDERS: Emergency Provider Emergency Medicine
DX: I89.0 Lymphedema, not elsewhere classified (principal); G47.33 Obstructive sleep apnea (adult) (pediatric); I25.10 Atherosclerotic heart disease of native coronary artery without angina pectoris; I13.2 Hypertensive heart and chronic kidney disease with heart failure and with stage 5 chronic kidney disease, or end stage renal disease; I50.9 Heart failure, unspecified; E11.22 Type 2 diabetes mellitus with diabetic chronic kidney disease; N18.6 End stage renal disease; D63.1 Anemia in chronic kidney disease; I25.2 Old myocardial infarction; Z95.5 Presence of coronary angioplasty implant and graft; Z95.810 Presence of automatic (implantable) cardiac defibrillator; Z72.0 Tobacco use
CPT/HCPCS: 36591; 80053; 85025; 85610; 85730; 99283; A4216

== ENCOUNTER 2019-01-03 16:04 | Emergency (ER) | payer MEDICARE, OTHER, SELFPAY ==
[2019-01-03 16:04] VITALS: BP 182/94; PULSE 89; RESP 15; TEMP 36.9; O2SAT 95; BMI 32.5
--- NOTE | 2019-01-03 16:07 | RAD_ITS ---
STUDY: X-RAY - RIGHT HIP REASON FOR EXAM: Male, 63 years old. Right-sided hip pain after fall TECHNIQUE: 2 views of the hip. AP pelvis COMPARISON: 12/08/2018 FINDINGS: Deferens calcifications are often associated with diabetes mellitus. Surgical clips project in the right lower quadrant. There are osteoarthritic changes of the femoral head with marginal osteophyte formation. There is osteoarthritic spur formation of the acetabular rim. There is severe articular joint space narrowing. Fixation screws and medullary saira in the right proximal femur noted. Pelvic ring is intact. Pubic symphysis and sacroiliac joints are unremarkable. There are mild degenerative changes of left knee. RAD/HIP, UNI W/ Pelvis 2-3 Views IMPRESSION: No acute fracture. Degenerative and operative changes, as above. Electronically Signed: Ramesh Torres MD at 17:40 EDT , Service support ,
--- NOTE | 2019-01-03 16:07 | CT_ITS ---
STUDY: CT BRAIN WITHOUT CONTRAST REASON FOR EXAM: Male, 63 years old. Fall RADIATION DOSAGE (If Supplied By Facility): CTDIvol = ( 44.99 ) mGy, DLP = ( 829.85 ) mGycm TECHNIQUE: Transaxial CT imaging of the brain was performed without administration of intravenous contrast material. Individualized dose optimization techniques were used for this CT. COMPARISON: None. FINDINGS: Normal soft tissue structures. Normal calvarium. There is mild cerebral atrophy with widening of the extra-axial spaces and ventricular dilatation. There are areas of decreased attenuation within the white matter tracts of the supratentorial brain, consistent with microvascular disease changes. Relatively localized area of diminished density in the right parafalcine vertex is similar since the prior study and likely sequela of prior ischemia. Normal basal ganglia and thalami. Normal brainstem. Normal cerebellum. Parafalcine mixed density subdural hematoma identified with maximum thickness measuring up to 8.8 mm, just left of midline, with only slight amount of mass effect (no parenchymal edema seen). A hematoma appears to layer along the left tentorium (image 16). There are no findings of an acute ischemic infarction. Normal visualized paranasal sinuses. There is atherosclerosis of the carotid siphons and vertebral arteries. CT/Brain/Head without Contrast IMPRESSION: 1. Small posterior left parafalcine and tentorial subdural hematoma. Electronically Signed: Ramesh Torres MD at 16:49 EDT , Service support ,
--- NOTE | 2019-01-03 16:07 | RAD_ITS ---
STUDY: X-RAY - LUMBAR SPINE REASON FOR EXAM: Male, 63 years old. Right-sided hip pain after fall TECHNIQUE: 3 view(s) of the lumbar spine were obtained. COMPARISON: CT lumbar spine from 03/05/2015 FINDINGS: There is straightening of the normal lumbar lordosis. There is no substantial scoliosis. There is a normal alignment of the vertebrae. There is diffuse demineralization with multi-level endplate spondylosis. Severe disc space loss with stable chronic deformity at L3-L4, better seen on prior lumbar spine CT. Canal narrowing suspected. Remaining disc levels are stable. Surgical clips in the right lower abdomen noted. Degenerative and operative changes of the right hip partially visualized. Vas deferens calcifications associated with diabetes mellitus. RAD/Lumbar Spine 2 or 3 Views IMPRESSION: 1. No acute compression fracture. Stable chronic deformity of L3-L4 as seen on prior CT of 2014. Electronically Signed: Ramesh Torres MD at 17:46 EDT , Service support ,
--- NOTE | 2019-01-03 16:07 | RAD_ITS ---
STUDY: X-RAY - THORACIC SPINE REASON FOR EXAM: Male, 63 years old. Fall, pain TECHNIQUE: 3 view(s) of the thoracic spine were obtained. COMPARISON: None. FINDINGS: Normal kyphosis of the thoracic spine. There is no substantial scoliosis. There is demineralization of the thoracic spine with endplate spondylosis. There is multilevel disc space narrowing of the thoracic spine. Right chest port cardiac conduction device noted. Sternal wires and mediastinal surgical clips compatible with prior CABG. RAD/Thoracic Spine 3 Views IMPRESSION: 1. No compression fracture. Electronically Signed: Ramesh Torres MD at 17:47 EDT , Service support ,
--- NOTE | 2019-01-03 16:07 | CT_ITS ---
STUDY: CT CERVICAL SPINE WITHOUT CONTRAST REASON FOR EXAM: Male, 63 years old. Fall RADIATION DOSAGE (If Supplied By Facility): CTDIvol = ( 31.18 ) mGy, DLP = ( 800.18 ) mGycm TECHNIQUE: High resolution transaxial imaging was performed without contrast material. Sagittal and coronal images were reconstructed. Individualized dose optimization techniques were used for this CT. COMPARISON: None FINDINGS: Normal craniovertebral junction. There are degenerative changes of the anterior atlantoaxial articulation. Unfused odontoid apophysis identified, normal variant. There is reversal of the normal cervical lordosis. No cervical spine fracture. There is joint space narrowing at multiple cervical levels with endplate sclerosis and anterior spondylosis. Posterior disc osteophyte complex is identified with canal narrowing most conspicuous at C4-C5 and C5-C6 with bilateral foraminal stenosis identified. However, no critical canal stenosis is seen. Small bilateral pleural effusions are partially visualized. Sternotomy wires are noted. There are atherosclerotic calcifications of the left carotid artery. Surgical clips of the right neck compatible with prior carotid endarterectomy. CT/Spine Cervical without Contras IMPRESSION: 1. No cervical spine fracture or traumatic subluxation. 2. Degenerative disc disease with canal and foraminal narrowing. 3. CABG, cardiac conduction device. 4. Small pleural effusions. Electronically Signed: Ramesh Torres MD at 17:14 EDT , Service support ,
--- NOTE | 2019-01-03 16:07 | RAD_ITS ---
STUDY: X-RAY CHEST REASON FOR EXAM: Male, 63 years old. Right-sided chest pain after fall TECHNIQUE: AP COMPARISON: None. FINDINGS: Single chamber cardiac conduction device via the left subclavian vein is identified with lead tips terminating over the right ventricle. Right subclavian chest port is present with tip projecting over the right atrium. The lungs are clear and expanded. A small left pleural effusion is demonstrated. There is mild cardiac enlargement. Sternal wires (some fractured) and mediastinal surgical clips compatible with prior CABG. Normal visualized pulmonary arteries. Normal visualized aortic arch and descending thoracic aorta. Normal visualized thoracic spine. Old left rib fracture is similar since 11/05/2018. There is no demonstrated abnormality of the visualized soft tissue structures of the upper abdomen. RAD/Chest 1 View IMPRESSION: 1. New small left pleural effusion. No pneumothorax. Electronically Signed: Ramesh Torres MD at 17:03 EDT , Service support ,
[2019-01-03 16:39] VITALS: BP 182/105; PULSE 90; RESP 16; O2SAT 92
--- NOTE | 2019-01-03 16:40 | ED.VISSUMM ---
- ER Visit Summary Date of Service: 01/03/19 Chief Complaint: Fall History of Present Illness: The patient is a 63 M who presents after a fall. He fell back from his rolling wheelchair when it caught on the ground. He hit the back of his head. He did not lose consciousness. He complains of head and neck pain. He also reports right side back pain, low back pain, and right hip pain. Denies any other associated symptoms like nausea or vomiting. Denies weakness or numbness. He does take aspirin and Plavix. Physical Examination: Hypertensive 182/105. Otherwise vitals normal. Afebrile. Alert and oriented. GCS 15. Neck is nontender. Heart regular. Lungs clear. Abdomen soft. Diffuse lumbar tenderness and right hip tenderness. No shortening. Neurovascular intact distally. Good strength and sensation, symmetrically. Test Results: Results pending at the time of this dictation. Emergency Department Course and Treatment: Imaging was ordered. His CT brain shows an apparent small subdural hemorrhage. Imaging of his cervical spine, chest, pelvis, right hip, and back is pending at this time. Laboratory studies pending. Patient had a c-collar applied. IV obtained. Fentanyl for pain. Patient was discussed with Dr. Ambrosio at [facility] and will be transferred for trauma care. Treatment Plan: As above Disposition: Transfer Impression: 1. Subdural hemorrhage 2. Cervical strain 3. Thoracic pain 4. Lumbar strain 5. Right hip contusion This note was generated with [employer] software. It may contain incorrect words, spelling, and punctuation that were not noted in review of the chart prior to signing ED Disposition - Plan for ED Patient: Referrals: [facility] [place] ,Out of [Primary Care Provider] -
[2019-01-03 16:42] VITALS: O2SAT 93
--- NOTE | 2019-01-03 16:43 | ED.DCSUM_ITS ---
- ER Visit Summary Date of Service: 01/03/19 Chief Complaint: Fall History of Present Illness: The patient is a 63 M who presents after a fall. He fell back from his rolling wheelchair when it caught on the ground. He hit the back of his head. He did not lose consciousness. He complains of head and neck pain. He also reports right side back pain, low back pain, and right hip pain. Denies any other associated symptoms like nausea or vomiting. Denies weakness or numbness. He does take aspirin and Plavix. Physical Examination: Hypertensive 182/105. Otherwise vitals normal. Afebrile. Alert and oriented. GCS 15. Neck is nontender. Heart regular. Lungs clear. Abdomen soft. Diffuse lumbar tenderness and right hip tenderness. No shortening. Neurovascular intact distally. Good strength and sensation, symmetrically. Test Results: Results pending at the time of this dictation. Emergency Department Course and Treatment: Imaging was ordered. His CT brain shows an apparent small subdural hemorrhage. Imaging of his cervical spine, chest, pelvis, right hip, and back is pending at this time. Laboratory studies pending. Patient had a c-collar applied. IV obtained. Fentanyl for pain. Patient was discussed with Dr. Ambrosio at [facility] and will be transferred for trauma care. Treatment Plan: As above Disposition: Transfer Impression: 1. Subdural hemorrhage 2. Cervical strain 3. Thoracic pain 4. Lumbar strain 5. Right hip contusion This note was generated with [employer] software. It may contain incorrect words, spelling, and punctuation that were not noted in review of the chart prior to signing ED Disposition - Plan for ED Patient: Referrals: [facility] [place] ,Out of [Primary Care Provider] -
[2019-01-03] MEDS: fentaNYL 100 MCG/2 ML Ampul 50 MCG IV (16:51)
[2019-01-03 17:05] LABS: Absolute Lymphocyte Count 1.41 X10^3/ul (0.83-4.51); Absolute Neutrophil Count 6.6 X10^3/uL (2.0-7.7); Basophil# 0.04 X10^3/uL; Basophil% 0.4 % (0-1); Eosinophil# 0.22 X10^3/uL; Eosinophils% 2.4 % (0-5); Hematocrit 34.7 % (40-54); Hemoglobin 11.4 g/dl (13.0-16.5); Lymphocyte # 1.41 X10^3/ul (4.0); Lymphocyte % 15.4 % (19-41); Mean Corp Hgb Conc 32.9 g/gl (32-36); Mean Corpuscular Hgb 29.6 pg (27.0-32.0); Mean Corpuscular Volume 90.1 fL (80-94); Mean Platelet Vol. 9.7 fl (6.2-12.0); Monocyte% 8.7 % (0-10); Neutrophil # 6.64 X10^3/uL (2.7-7.7); Neutrophil % 72.7 % (47-70); Platelet Count 174 K/mm3 (150-450); RBC Distribution Width CV 14.5 % (11.6-14.6); RBC Distribution Width SD 47.8 fl (35.1-43.9); Red Blood Count 3.85 M/mm3 (4.6-6.2); White Blood Count 9.2 K/mm3 (4.4-11.0)
[2019-01-03 17:07] VITALS: BP 182/91; PULSE 94; RESP 20; O2SAT 92
[2019-01-03 17:09] LABS: Anion Gap 2 (5-15); BUN 21 mg/dL (7-18); BUN/Creat Ratio 21.4 RATIO (10-20); Calcium,Total 8.3 mg/dL (8.5-10.1); Chloride 106 mmol/L (98-107); Creatinine, Serum 0.98 mg/dL (0.70-1.30); EST Glomerular Filtration Rate 82 mL/min (>60); Est Glom Filt Rate - Afr Amer 99 mL/min (>60); Estimated Creatinine Clearance 78.15 ml/min; Glucose 183 mg/dL (74-106); Potassium 4.6 mmol/L (3.5-5.1); Sodium Level 136 mmol/L (136-145)
[2019-01-03 17:12] LABS: POSITIVE COUNT NO; POSITIVE DIFFERENTIAL NO; POSITIVE MORPHOLOGY NO
[2019-01-03 17:18] LABS: International Normalized Ratio 1.3; Prothrombin Time (Protime)PT. 15.7 SECONDS (11.7-14.9)
[2019-01-03 17:19] LABS: Partial Thromboplast Time 30.9 Seconds (24.1-36.2)
[2019-01-03 17:30] VITALS: BP 170/86; PULSE 89; RESP 15; O2SAT 93
== END 2019-01-03 18:14 | disposition short-term general hospital (02) ==
LOC: ED 16:53
PROVIDERS: Emergency Provider Emergency Medicine
DX: I62.00 Nontraumatic subdural hemorrhage, unspecified (principal); S16.1XXA Strain of muscle, fascia and tendon at neck level, initial encounter; M54.6 Pain in thoracic spine; S39.012A Strain of muscle, fascia and tendon of lower back, initial encounter; S70.01XA Contusion of right hip, initial encounter; W05.0XXA Fall from non-moving wheelchair, initial encounter; Y93.9 Activity, unspecified; Y92.9 Unspecified place or not applicable; Y99.9 Unspecified external cause status; E11.9 Type 2 diabetes mellitus without complications; I10 Essential (primary) hypertension; E78.00 Pure hypercholesterolemia, unspecified; I25.10 Atherosclerotic heart disease of native coronary artery without angina pectoris; G47.33 Obstructive sleep apnea (adult) (pediatric); Z95.1 Presence of aortocoronary bypass graft; Z72.0 Tobacco use
CPT/HCPCS: 36591; 70450; 71045; 72072; 72100; 72125; 73502; 80048; 85025; 85610; 85730; 99282; A4216

== ENCOUNTER 2019-01-12 17:14 | Inpatient (IN) | payer MEDICARE, OTHER, SELFPAY ==
[2019-01-12 17:26] VITALS: BP 150/74; PULSE 95; RESP 16; TEMP 36.7; O2SAT 96; BMI 37.3
[2019-01-12 18:46] LABS: Bedside Glucose 151 mg/dL (70-110)
[2019-01-12] MEDS: oxyCODONE 5 MG Tablet PO (19:42)
[2019-01-12 20:48] VITALS: BP 153/74; PULSE 95; RESP 16; TEMP 36.7; O2SAT 96
[2019-01-12 20:57] VITALS: BP 150/74; PULSE 95
[2019-01-12] MEDS: tiZANidine HCl 2 MG Tablet PO (20:57)
[2019-01-12] MEDS: hydrALAZINE 25 MG Tablet PO (20:57)
[2019-01-12] MEDS: Nystatin Powder 15gm Bottle 1 APPLIC TOPICAL (20:58)
[2019-01-12] MEDS: Gabapentin 300 MG Capsule PO (20:58)
[2019-01-12] MEDS: levETIRAcetam 500 MG Tablet PO (20:59)
[2019-01-12] MEDS: Heparin Injection (Vial) 5,000 UNIT/ML VIAL 5000 UNIT SC (21:00)
[2019-01-12] MEDS: Famotidine 20 MG Tablet PO (21:01)
[2019-01-12] MEDS: Senna/Docusate Sodium 1 Tablet 2 TABLET PO (21:01)
[2019-01-12] MEDS: Carvedilol 25 MG Tablet PO (21:01)
--- NOTE | 2019-01-12 21:18 | PCM.PROGNOTE ---
Subjective: Patient was seen and examined today in the rehab unit at [facility], he was admitted there today for rehab services involving a recent fall with a left subdural hematoma in December 2018: he also sustained multiple left rib fractures, closed head trauma, and renal failure. He underwent treatment at [facility]. It was also noted that the patient underwent a right thoracentesis during that hospitalization. I have reviewed the patient's medications including the ones that were discontinued at [facility]. Patient has a history of ischemic cardiomyopathy, diabetic neuropathy, type 2 diabetes, osteoarthritis, and recent total hip arthroplasty due to a hip fracture. Patient has some mild confusion tonight, patient was able to tell me how he sustained his closed head trauma however. - Physical Exam General: Alert, Cooperative, No apparent distress, Well developed HEENT: Atraumatic, PERRLA, EOMI, Normocephalic Oral: Moist Mucosa Neck: Supple, No JVD, Negative Carotid Bruits, Trachea Midline, Thyroid Normal Size and Texture Lungs: Clear to auscultation, Normal air movement, No rhonchi, No wheeze, No rales Cardiovascular: Regular rate, Regular Rhythm, Normal S1, Normal S2, No murmurs, No Ectopic Activity, PMI Normal, No rub noted, No Gallop Abdomen: Bowel Sounds Present, Soft, Non Tender, Non-Distended, No hernias noted Extremities: No clubbing, No cyanosis, No edema, Capillary Refill Less than 3 Seconds Skin: No rashes, No breakdown Musculoskeletal: No Tenderness to Palpation of Joints or Extremities Neurological: Cranial nerves II-XII grossly intact, Neuro grossly intact, Sensory exam intact to light touch and pain, Coordination normal Psych/Mental Status: Normal Affect, Appropriate, Alert and oriented to time, place, person, mood and affect Vital Signs Temp Pulse Resp BP Pulse Ox 98.1 F 95 16 150/74 H 96 01/12/19 20:48 01/12/19 20:57 01/12/19 20:48 01/12/19 20:57 01/12/19 20:48 Oxygen Delivery Method Room Air Weight: 114.4 kg Body Mass Index (BMI) 37.3 Finger Stick Blood Glucose 42 POC Glucose 01/12/19 18:35 POC Glucose 151 H Medical Necessity - Tobacco Use Smoking Status: Never smoker Assessment/Plan All Active Problems Acute kidney injury (Resolved) Anemia (Resolved) Abnormal cardiac enzyme level (Resolved) Chest pain (Resolved) Shortness of breath (Resolved) hx epidural abscess (Resolved) #1 ischemic cardiomyopathy-I will place the patient back on Lotensin and carvedilol, he was on Bumex at one time but it appears this was stopped during his hospitalization at [facility]. I have elected not to restart his Bumex at this time. Patient's Plavix and aspirin was also stopped after his fall. #2 type 2 diabetes-patient was on basal insulin at one time, I recommend for now that he just be kept on sliding scale insulin per fingerstick blood sugars and monitor the need for any basal insulin. #3 coronary artery disease #4 osteoarthritis #5 recent left-sided subdural hematoma secondary to fall #6 Status post right hip fracture with ORIF October 2018 #7 Diabetic neuropathy-I have restarted the patient's Cymbalta #8 recent multiple left rib fractures #9 hypertension Code Visit Inpatient E&M: 65810 Subs Hosp L2
--- NOTE | 2019-01-12 21:23 | PN_ITS ---
Subjective: Patient was seen and examined today in the rehab unit at [facility], he was admitted there today for rehab services involving a recent fall with a left subdural hematoma in December 2018: he also sustained multiple left rib fractures, closed head trauma, and renal failure. He underwent treatment at [facility]. It was also noted that the patient underwent a right thoracentesis during that hospitalization. I have reviewed the patient's medications including the ones that were discontinued at [facility]. Patient has a history of ischemic cardiomyopathy, diabetic neuropathy, type 2 diabetes, osteoarthritis, and recent total hip arthroplasty due to a hip fracture. Patient has some mild confusion tonight, patient was able to tell me how he sustained his closed head trauma however. - Physical Exam General: Alert, Cooperative, No apparent distress, Well developed HEENT: Atraumatic, PERRLA, EOMI, Normocephalic Oral: Moist Mucosa Neck: Supple, No JVD, Negative Carotid Bruits, Trachea Midline, Thyroid Normal Size and Texture Lungs: Clear to auscultation, Normal air movement, No rhonchi, No wheeze, No rales Cardiovascular: Regular rate, Regular Rhythm, Normal S1, Normal S2, No murmurs, No Ectopic Activity, PMI Normal, No rub noted, No Gallop Abdomen: Bowel Sounds Present, Soft, Non Tender, Non-Distended, No hernias noted Extremities: No clubbing, No cyanosis, No edema, Capillary Refill Less than 3 Seconds Skin: No rashes, No breakdown Musculoskeletal: No Tenderness to Palpation of Joints or Extremities Neurological: Cranial nerves II-XII grossly intact, Neuro grossly intact, Sensory exam intact to light touch and pain, Coordination normal Psych/Mental Status: Normal Affect, Appropriate, Alert and oriented to time, place, person, mood and affect Vital Signs Temp Pulse Resp BP Pulse Ox 98.1 F 95 16 150/74 H 96 01/12/19 20:48 01/12/19 20:57 01/12/19 20:48 01/12/19 20:57 01/12/19 20:48 Oxygen Delivery Method Room Air Weight: 114.4 kg Body Mass Index (BMI) 37.3 Finger Stick Blood Glucose 42 POC Glucose 01/12/19 18:35 POC Glucose 151 H Medical Necessity - Tobacco Use Smoking Status: Never smoker Assessment/Plan All Active Problems Acute kidney injury (Resolved) Anemia (Resolved) Abnormal cardiac enzyme level (Resolved) Chest pain (Resolved) Shortness of breath (Resolved) hx epidural abscess (Resolved) #1 ischemic cardiomyopathy-I will place the patient back on Lotensin and carve dilol, he was on Bumex at one time but it appears this was stopped during his hospitalization at [facility]. I have elected not to restart his Bumex at this time. Patient's Plavix and aspirin was also stopped after his fall. #2 type 2 diabetes-patient was on basal insulin at one time, I recommend for now that he just be kept on sliding scale insulin per fingerstick blood sugars and monitor the need for any basal insulin. #3 coronary artery disease #4 osteoarthritis #5 recent left-sided subdural hematoma secondary to fall #6 Status post right hip fracture with ORIF October 2018 #7 Diabetic neuropathy-I have restarted the patient's Cymbalta #8 recent multiple left rib fractures #9 hypertension Code Visit Inpatient E&M: 25357 Subs Hosp L2
[2019-01-12 22:00] VITALS: PULSE 95; RESP 16
[2019-01-12 22:21] LABS: Bedside Glucose 149 mg/dL (70-110)
[2019-01-12] MEDS: Acetaminophen 325 MG Tablet 650 MG PO (23:27)
--- NOTE | 2019-01-13 00:46 | NURSING ---
20:20 Dr Gunderson saw pt and n/o for Cymbalta and Lantus [address] Gunderson d/c'd Lipitor d/t allergic reaction noted in records. Dr. Gunderson attempted to call daughter, Lorie, but no answer at 20:20. Pt reclining in bed and VS WNL.
--- NOTE | 2019-01-13 00:50 | NURSING ---
Pt placed on 2L O2 d/t pt c/o SOB. Pt states he has pain in ribs which makes breathing difficult. O2 placed. Pt had record of testing positive for CPAP but no CPAP is in place. Pt resting more comfortably at this time and will continue to monitor.
[2019-01-13] MEDS: oxyCODONE 5 MG Tablet PO ×3 (02:07→15:30)
[2019-01-13] MEDS: Heparin Injection (Vial) 5,000 UNIT/ML VIAL 5000 UNIT SC ×2 (05:29→14:30)
[2019-01-13] MEDS: Nystatin Powder 15gm Bottle 1 APPLIC TOPICAL (05:29)
[2019-01-13 05:57] LABS: Absolute Lymphocyte Count 1.33 X10^3/ul (0.83-4.51); Absolute Neutrophil Count 3.4 X10^3/uL (2.0-7.7); Basophil# 0.05 X10^3/uL; Basophil% 0.9 % (0-1); Eosinophil# 0.28 X10^3/uL; Eosinophils% 4.8 % (0-5); Hematocrit 29.9 % (40-54); Hemoglobin 9.3 g/dl (13.0-16.5); Lymphocyte # 1.33 X10^3/ul (4.0); Lymphocyte % 22.8 % (19-41); Mean Corp Hgb Conc 31.1 g/gl (32-36); Mean Corpuscular Hgb 28.8 pg (27.0-32.0); Mean Corpuscular Volume 92.6 fL (80-94); Mean Platelet Vol. 9.4 fl (6.2-12.0); Monocyte# 0.73 X10^3/uL; Monocyte% 12.5 % (0-10); Neutrophil # 3.43 X10^3/uL (2.7-7.7); Neutrophil % 58.8 % (47-70); Platelet Count 191 K/mm3 (150-450); RBC Distribution Width CV 14.1 % (11.6-14.6); RBC Distribution Width SD 46.1 fl (35.1-43.9); Red Blood Count 3.23 M/mm3 (4.6-6.2); White Blood Count 5.8 K/mm3 (4.4-11.0)
[2019-01-13 05:58] LABS: POSITIVE COUNT NO; POSITIVE DIFFERENTIAL NO; POSITIVE MORPHOLOGY NO
[2019-01-13 06:13] LABS: ALB/GLOB Ratio 0.8 RATIO (0.9-2.4); AST(SGOT) 19 U/L (15-37); Alanine Aminotransfer ALT/SGPT 12 U/L (16-61); Albumin, Serum 2.7 g/dL (3.2-5.0); Alkaline Phosphatase 120 U/L (45-117); Anion Gap 7 (5-15); BUN 16 mg/dL (7-18); BUN/Creat Ratio 11.9 RATIO (10-20); Calcium,Total 8.5 mg/dL (8.5-10.1); Chloride 107 mmol/L (98-107); Creatinine, Serum 1.35 mg/dL (0.70-1.30); EST Glomerular Filtration Rate 57 mL/min (>60); Est Glom Filt Rate - Afr Amer 69 mL/min (>60); Estimated Creatinine Clearance 54.89 ml/min; Globulin 3.5 g/dL (2.2-4.2); Glucose 110 mg/dL (74-106); Protein, Total 6.2 g/dL (6.4-8.2); Sodium Level 138 mmol/L (136-145)
[2019-01-13 06:56] VITALS: O2SAT 96
[2019-01-13 07:00] VITALS: BP 120/60; PULSE 62; RESP 17; TEMP 36.9; O2SAT 96
[2019-01-13 07:01] LABS: Bedside Glucose 111 mg/dL (70-110)
--- NOTE | 2019-01-13 08:00 | NURSING ---
Refusing oxygen at this time and patient denies SOB.
[2019-01-13] MEDS: levETIRAcetam 500 MG Tablet PO (08:55)
[2019-01-13] MEDS: DULoxetine Hcl 30 MG Capsule PO (08:55)
[2019-01-13] MEDS: Senna/Docusate Sodium 1 Tablet 2 TABLET PO (08:55)
[2019-01-13] MEDS: Famotidine 20 MG Tablet PO (08:55)
[2019-01-13] MEDS: amLODIPine 5 MG Tablet PO (08:55)
[2019-01-13] MEDS: Losartan Potassium 50 MG Tablet PO (08:55)
[2019-01-13] MEDS: Gabapentin 300 MG Capsule PO (08:55)
[2019-01-13] MEDS: Tamsulosin HCl 0.4 MG Capsule PO (08:55)
[2019-01-13] MEDS: Sertraline 100 MG Tablet PO (08:56)
[2019-01-13] MEDS: Lidocaine 5% Patch 1 PATCH TOPICAL (08:56)
[2019-01-13 08:57] VITALS: BP 120/60; PULSE 80
[2019-01-13] MEDS: hydrALAZINE 25 MG Tablet PO (08:57)
[2019-01-13] MEDS: Carvedilol 25 MG Tablet PO (08:57)
--- NOTE | 2019-01-13 09:00 | NURSING ---
Patient continues to ask nursing staff for more pain medicine and patient has been advised that he cannot get anymore according to his medication regimen. No pained facial expressions noted. Patient resting comfortably in bed.
--- NOTE | 2019-01-13 10:42 | HP.PCM_ITS ---
Problem List (1) Benign hypertension Status: Chronic (2) CAD (coronary artery disease) Status: Chronic Comment: extensive disease multiple stents (3) Cardiomyopathy Status: Chronic Qualifiers: Cardiomyopathy type: ischemic Qualified Code(s): I25.5 - Ischemic cardiomyopathy Comment: 38% gated nuclear EF on 11/03/18 (4) Carotid artery stenosis Status: Chronic Comment: R CEA (5) Chronic CHF (congestive heart failure) Status: Chronic Qualifiers: Heart failure type: systolic Qualified Code(s): I50.22 - Chronic systolic (congestive) heart failure Comment: ef=25% as of 04/04 (6) DM type 2 (diabetes mellitus, type 2) Status: Chronic (7) Decubitus ulcer of heel, right, unstageable Status: Chronic (8) Hx of CABG Status: Chronic (9) Hyperlipidemia Status: Chronic (10) ICD (implantable cardioverter-defibrillator) in place Status: Chronic (11) LISSA (obstructive sleep apnea) Status: Chronic (12) Obesity Status: Chronic Qualifiers: Obesity classification: adult class 2 (BMI 35 - 39.9) (13) S/P PTCA (percutaneous transluminal coronary angioplasty) Status: Chronic (14) Acute kidney injury Status: Resolved (15) Anemia Status: Resolved Qualifiers: Anemia type: other cause Other causes of anemia: acute posthemorrhagic Qualified Code(s): D62 - Acute posthemorrhagic anemia (16) Debility Status: Acute History of Present Illness Date of Admission: 01/12/19 Chief Complaint: Debility s/p SDH The patient is a 63 year old M with PMH HTN, HLD, DM, CAD s/p Stents, CABG, Ischemic Cardiomyopathy, LISSA, depression, morbid obesity, admitted to [facility] on 01/12/2019 with debility s/p fall and SDH, for > 3 hrs therapy daily with a goal of returning back home at or near his prior level of functional independence. Per patient he had a mechanical fall on 01/03/2019, came to [facility] ED where CT head done reported to show small left parafalcine and left tentorial SDH and also had right rib fractures. He was transferred to [facility] where he was managed conservatively, seen by Neurosurgery Dr. Flores who stopped his ASA/Plavix due to SDH. His course was complicated by ATN which was documented to be contrast nephropathy per nephrology. Patient was given prophylactic Keppra till 01/13/19 by NSG for seizure precaution, no documentation of witnessed seizures. At present patient complaints right rib pain and right shoulder pain. Denies any new onset MCDOWELL, dizziness, focal motor weakness, visual disturbances, speech disturbances or sensory loss. Per patient he lives in an apartment building with no steps going into the house, uses rollator to ambulate. [] Past Medical History Past Medical History (Chronic Problems): Chronic Problems LISSA (obstructive sleep apnea) (Chronic) Decubitus ulcer of heel, right, unstageable (Chronic) Cellulitis of right heel (Chronic) S/P PTCA (percutaneous transluminal coronary angioplasty) (Chronic) Cardiomyopathy (Chronic) 38% gated nuclear EF on 11/03/18 ICD (implantable cardioverter-defibrillator) in place (Chronic) mediport placement (Chronic) Hyperlipidemia (Chronic) DM type 2 (diabetes mellitus, type 2) (Chronic) Chronic CHF (congestive heart failure) (Chronic) ef=25% as of 04/04 Carotid artery stenosis (Chronic) R CEA CAD (coronary artery disease) (Chronic) extensive disease multiple stents Hx of CABG (Chronic) Obesity (Chronic) Benign hypertension (Chronic) Allergies metoclopramide HCl [From Reglan] Adverse Reaction (Verified 01/03/19 16:08) goofy, anxious, elevated BP ondansetron HCl [From Zofran] Adverse Reaction (Verified 01/03/19 16:08) goofy, anxious, elevated BP Winqkfa-Izk-Eyx Reductase Inhibitor Adverse Reaction (Verified 01/03/19 16:08) rhabdomyolosis Home Medications: Ambulatory Orders Medication Instructions Recorded Amlodipine [Norvasc] 5 mg PO DAILY 10/13/18 Gabapentin 300 mg PO BID 10/13/18 Hydroxyzine HCl 25 mg PO BID PRN 10/13/18 hydrALAZINE [Apresoline] 25 mg PO BID 10/13/18 Ipratropium/Albuterol Sulfate 3 ml INHALATION Q4H PRN PRN 01/12/19 [Duoneb] Lidocaine [Lidoderm Patch] 1 patch TOPICAL DAILY 01/12/19 Melatonin 1 mg PO QHS PRN PRN 01/12/19 Nitroglycerin 0.4 mg SL PRN PRN 01/12/19 Nystatin Powder [Mycostatin Powder] 1 applic TOPICAL TID 01/12/19 Sertraline HCl 100 mg PO DAILY 01/12/19 Tamsulosin HCl [Flomax] 0.4 mg PO DAILY 01/12/19 Tizanidine HCl [Zanaflex] 2 mg PO BID PRN PRN 01/12/19 Carvedilol [Coreg (Beta Ronald)] 25 mg PO BID tablet 01/13/19 Duloxetine Hcl [Cymbalta] 30 mg PO DAILY capsule 01/13/19 Heparin Injection (Vial) [Heparin 5,000 unit SC Q8 vial 01/13/19 Na] Insulin Glargine [Lantus SoloStar 10 units SC QHS pen 01/13/19 Pen] Insulin Lispro [Humalog KwikPen] See Protocol SC ACHS insuln.pen 01/13/19 Losartan Potassium [Cozaar] 50 mg PO DAILY tablet 01/13/19 Surgical History: appendectomy, cataract, cholecystectomy, coronary bypass surgery - 2004 - [place], herniorrhaphy, tonsillectomy, - - Cardiac stent placement ?24 (according to patient), right carotid endarterectomy. Lives: With Family Smoking Status: Never smoker Alcohol: None - *Family History Maternal History Items: No pertinent history Paternal History Items: Heart Disease - of an MA at age 61 Sibling History Items: No pertinent history Review of Systems Constitutional: Reports: - - complete ROS negative except as documented in HPI VTE Information - Inpt Only VTE Present on Admission: No VTE Mechan Device Prophylaxis: SCD's, Knee High NUBIA Hose VTE Pharm Prophylaxis ordered?: Yes Patient Problems: Active and Suspected Problems Debility (Acute) - Physical Exam General: Alert HEENT: Normocephalic Neck: Supple Lungs: Normal air movement Cardiovascular: Normal S1, Normal S2 Abdomen: Bowel Sounds Present Extremities: No cyanosis Neurological: Cranial nerves II-XII grossly intact, Neuro grossly intact, Motor Exam 5/5 strength throughout, Muscle tone normal, Sensory exam intact to light touch and pain, Coordination normal, - - Reflexes + B/L B/S/T/K/A, complaints of right shoulder pain. Psych/Mental Status: Normal Affect Vital Signs Temp Pulse Resp BP Pulse Ox 98.4 F 80 17 120/60 96 01/13/19 07:00 01/13/19 08:57 01/13/19 07:00 01/13/19 08:57 01/13/19 07:00 Oxygen Flow Rate (L/min) 2 Oxygen Delivery Method Room Air Weight: 114.4 kg Body Mass Index (BMI) 37.3 Finger Stick Blood Glucose 42 Intake and Output for Last 24 Hours 01/11/19 01/12/19 01/13/19 23:59 23:59 23:59 Intake Total 240 / 240 Output Total 250 / 250 Balance -10 / -10 Laboratory Tests Past 24 Hrs 01/13/19 01/13/19 05:25 05:25 WBC 5.8 RBC 3.23 L Hgb 9.3 L Hct 29.9 L MCV 92.6 MCH 28.8 MCHC 31.1 L RDW 14.1 RDW Differential 46.1 H Plt Count 191 MPV 9.4 Immature Gran % (Auto) 0.200 Neut % (Auto) 58.8 Lymph % (Auto) 22.8 [place] % (Auto) 12.5 H Eos % (Auto) 4.8 Baso % (Auto) 0.9 Absolute Neuts (auto) 3.4 Absolute Lymphs (auto) 1.33 Total Counted Not Reportable Sodium 138 Potassium 4.0 Chloride 107 Carbon Dioxide 24.0 Anion Gap 7 BUN 16 Creatinine 1.35 H Estim Creat Clear Calc 54.89 Est GFR (MDRD) Af Amer 69 Est GFR (MDRD) Non-Af 57 L BUN/Creatinine Ratio 11.9 Glucose 110 H Calcium 8.5 Total Bilirubin 0.40 AST 19 ALT 12 L Alkaline Phosphatase 120 H Total Protein 6.2 L Albumin 2.7 L Globulin 3.5 Albumin/Globulin Ratio 0.8 L POC Glucose 01/13/19 01/12/19 01/12/19 06:39 20:54 18:35 POC Glucose 111 H 149 H 151 H Assessment/Plan All Active Problems Debility (Acute) Acute kidney injury (Resolved) Anemia (Resolved) Abnormal cardiac enzyme level (Resolved) Chest pain (Resolved) Shortness of breath (Resolved) hx epidural abscess (Resolved) The patient is a 63 year old M with PMH HTN, HLD, DM, CAD s/p Stents, CABG, Ischemic Cardiomyopathy, LISSA, depression, morbid obesity, admitted to [facility] on 01/12/2019 with debility s/p fall and SDH, for > 3 hrs therapy daily with a goal of returning back home at or near his prior level of functional independence. Per patient he had a mechanical fall on 01/03/2019, came to [facility] ED where CT head done reported to show small left parafalcine and left tentorial SDH and also had right rib fractures. He was transferred to [facility] where he was managed conservatively, seen by Neurosurgery Dr. Flores who stopped his ASA/Plavix due to SDH. Patient was given prophylactic Keppra till 01/13/19 by NSG for seizure precaution, no documentation of witnessed seizures. His course was complicated by ATN which was documented to be contrast nephropathy per nephrology. At present patient complaints right rib pain and right shoulder pain. Denies any new onset MCDOWELL, dizziness, focal motor weakness, visual disturbances, speech disturbances or sensory loss. Per patient he lives in an apartment building with no steps going into the house, uses rollator to ambulate. Plan -PT for gait stability -OT for ADLs -Analgesics PRN -Bowel Protocol -Per nursing patient has been requesting to get more pain medications, with some pain medication seeking behavior -Per nursing patient requesting to be transferred to [place], as does not want to participate in the rehab level of therapy. -Small SDH- seen by Neurosurgery, conservative management. ASA/Plavix on hold per NSG recommendations, follow up with Dr. Flores in 1 week for further recommendations and clearance to use AP. -HTN-on Amlodipine, Coreg, hydralazine, Losartan, -HLD- statins was not restarted due to history of rhabdomyolysis possibly secondary to statins per documentation. -DM- on insulin -CAD-ASA/Plavix on hold per NSG recommendations due to SDH, on Coreg -Ischemic Cardiomyopathy- s/p ICD, on Coreg, Losartan -LISSA- use CPAP -ATN- creatinine improving, Nephrology consult -Recent h/o right Hip fracture and ORIF in October 2018 -Fall precautions -GI/DVT prophylaxis- on famotidine and heparin sq -Further medical management per hospitalist recommendations. All his cardiac medications restarted by Dr. Smith except for Bumex given recent renal issues. AP on hold per NSG -Follow up with PCP, NSG, Cardiology and orthopedics as outpatient. Code Visit Inpatient E&M: 66890 Init Hosp L3
--- NOTE | 2019-01-13 10:43 | PCM.TXEXTCAR ---
- Diet 01/12/19 17:32 Diet: Cardiac: Calorie-Controlled Food consistency:: Regular Liquid Consistency:: Regular/Thin How many daily calories?: 1800 calorie Diet: Renal - Carb-Controlled Food consistency:: Regular Liquid Consistency:: Regular/Thin - Wound(s) coccyx Wound Type: Surgical Incision rt upper chest Wound Type: port deaccessed 01/12 CHRISTELLE Wound Type: Abrasion RFA Wound Type: Burn Left Top hand Wound Type: Burn RLE Wound Type: Abrasion LLE Wound Type: Abrasion - Therapies Physical Therapy: Eval and Treat Occupational Therapy: Eval and Treat Speech Therapy: Eval and Treat - Allergies/Procedures Done in Hospital Allergies/Adverse Reactions: Allergies metoclopramide HCl [From Reglan] Adverse Reaction (Verified 01/03/19 16:08) goofy, anxious, elevated BP ondansetron HCl [From Zofran] Adverse Reaction (Verified 01/03/19 16:08) goofy, anxious, elevated BP Oizdcuq-Rwt-Teg Reductase Inhibitor Adverse Reaction (Verified 01/03/19 16:08) rhabdomyolosis - Type of Care/Length of Stay Estimated LOS: More Than 30 Days Type of Care Needed: Skilled Rehab Potential: Fair Prognosis: Fair - Additional Orders/Day of Discharge Day of Discharge: 01/13/19 - Dietary and Speech Recommendations Dietitian Recommendations/Changes: Rec diet change to 2000 caitlyn Cardiac/low sodium w/ fluid restriction as indicated - Follow Up Care Primary Care Physician: Malik Roper,Out of [Primary Care Provider] - When: Follow up with Neurosurgery Dr. Flores in 1 week When: F/U with Cardiology in 1-2 weeks When: F/U with Orthopedics for right shoulder pain ASIA When: F/U with Nephrology in 1-2 weeks
--- NOTE | 2019-01-13 10:44 | DS.PCM_ITS ---
Rehab Discharge Summary DATE OF ADMISSION: 01/12/19 DATE OF DISCHARGE: 01/13/2019 - Rehab Diagnosis Debility s/p SDH Patient Problems: Active and Suspected Problems Debility (Acute) Subjective: No Issues overnight. Care discussed with nursing staff. patient complaints of right shoulder pain which per patient is chronic. He refused to participate in therapy in the rehab floor and wants to be transferred to half-way. He does exhibit pain medication seeking behavior per nursing staff. - Physical Exam General: Alert HEENT: Normocephalic Neck: Supple Lungs: Normal air movement Cardiovascular: Normal S1, Normal S2 Abdomen: Bowel Sounds Present Extremities: No cyanosis Neurological: Cranial nerves II-XII grossly intact, Deep Tendon Reflexes 2+/4 and Symmetrical, Neuro grossly intact, Motor Exam 5/5 strength throughout, Muscle tone normal, Sensory exam intact to light touch and pain, - - complaints of pain in the right shoulder Vital Signs Temp Pulse Resp BP Pulse Ox 98.4 F 80 17 120/60 96 01/13/19 07:00 01/13/19 08:57 01/13/19 07:00 01/13/19 08:57 01/13/19 07:00 Oxygen Flow Rate (L/min) 2 Oxygen Delivery Method Room Air Weight: 114.4 kg Body Mass Index (BMI) 37.3 Finger Stick Blood Glucose 42 Intake and Output for Last 24 Hours 01/11/19 01/12/19 01/13/19 23:59 23:59 23:59 Intake Total 240 / 240 Output Total 250 / 250 Balance -10 / -10 Laboratory Tests Past 24 Hrs 01/13/19 01/13/19 05:25 05:25 WBC 5.8 RBC 3.23 L Hgb 9.3 L Hct 29.9 L MCV 92.6 MCH 28.8 MCHC 31.1 L RDW 14.1 RDW Differential 46.1 H Plt Count 191 MPV 9.4 Immature Gran % (Auto) 0.200 Neut % (Auto) 58.8 Lymph % (Auto) 22.8 [place] % (Auto) 12.5 H Eos % (Auto) 4.8 Baso % (Auto) 0.9 Absolute Neuts (auto) 3.4 Absolute Lymphs (auto) 1.33 Total Counted Not Reportable Sodium 138 Potassium 4.0 Chloride 107 Carbon Dioxide 24.0 Anion Gap 7 BUN 16 Creatinine 1.35 H Estim Creat Clear Calc 54.89 Est GFR (MDRD) Af Amer 69 Est GFR (MDRD) Non-Af 57 L BUN/Creatinine Ratio 11.9 Glucose 110 H Calcium 8.5 Total Bilirubin 0.40 AST 19 ALT 12 L Alkaline Phosphatase 120 H Total Protein 6.2 L Albumin 2.7 L Globulin 3.5 Albumin/Globulin Ratio 0.8 L POC Glucose 01/13/19 01/12/19 01/12/19 06:39 20:54 18:35 POC Glucose 111 H 149 H 151 H Discharge Diet: 1800 Calorie Control Diet, - - Renal, carb controlled diet Discharge Activity: May Not Drive Call your doctor if your incision/area has: Continuous Slow Oozing, Sudden Increased Bleeding, Increased Pain/ Swelling, Increased Redness, Foul Smelling Discharge, Swelling at the incision site Call your doctor if you observe: Fever of 101 or Higher, Coldness, Increased Pain, Numbness or Tingling, Change in Color, Inability to urinate, Inability to have a bowel movement, Using more than one pad per hour, Shortness of breath, Dizziness, Fainting spells, Swelling in the ankles, Chest pain, Prolonged hiccoughing, Increased palpitations (irregular heartbeat), Calf discomfort, Uncontrolled pain Home Medications: Medications to take at Discharge Amlodipine [Norvasc] 5 mg PO DAILY 10/13/18 Gabapentin 300 mg PO BID 10/13/18 Hydroxyzine HCl 25 mg PO BID PRN 10/13/18 hydrALAZINE [Apresoline] 25 mg PO BID 10/13/18 Ipratropium/Albuterol Sulfate [Duoneb] 3 ml INHALATION Q4H PRN PRN 01/12/19 Lidocaine [Lidoderm Patch] 1 patch TOPICAL DAILY 01/12/19 Melatonin 1 mg PO QHS PRN PRN 01/12/19 Nitroglycerin 0.4 mg SL PRN PRN 01/12/19 Nystatin Powder [Mycostatin Powder] 1 applic TOPICAL TID 01/12/19 Sertraline HCl 100 mg PO DAILY 01/12/19 Tamsulosin HCl [Flomax] 0.4 mg PO DAILY 01/12/19 Tizanidine HCl [Zanaflex] 2 mg PO BID PRN PRN 01/12/19 Carvedilol [Coreg (Beta Ronald)] 25 mg PO BID tablet 01/13/19 Duloxetine Hcl [Cymbalta] 30 mg PO DAILY capsule 01/13/19 Heparin Injection (Vial) [Heparin Na] 5,000 unit SC Q8 vial 01/13/19 Insulin Glargine [Lantus SoloStar Pen] 10 units SC QHS pen 01/13/19 Insulin Lispro [Humalog KwikPen] See Protocol SC ACHS insuln.pen 01/13/19 Losartan Potassium [Cozaar] 50 mg PO DAILY tablet 01/13/19 Primary Care Physician: Malik Roper,Out of [Primary Care Provider] - When: Follow up with Dr. Flores Neurosurgery in 1 week When: Follow up with Cardiology in 1-2 weeks When: Follow up with Orthopedics for right shoulder pain ASIA When: F/U with Nephrology in 1-2 week s Rehab Course The patient is a 63 year old M with PMH HTN, HLD, DM, CAD s/p Stents, CABG, Ischemic Cardiomyopathy, LISSA, depression, morbid obesity, admitted to [facility] on 01/12/2019 with debility s/p fall and SDH, for > 3 hrs therapy daily with a goal of returning back home at or near his prior level of functional independence. Per patient he had a mechanical fall on 01/03/2019, came to [facility] ED where CT head done reported to show small left parafalcine and left tentorial SDH and also had right rib fractures. He was transferred to [facility] where he was managed conservatively, seen by Neurosurgery Dr. Flores who stopped his ASA/Plavix due to SDH. Patient was given prophylactic Keppra by NSG at [facility] to be continued till 01/13/19 per documentation for seizure precaution, no documentation of witnessed seizures. His course was complicated by ATN which was documented to be contrast nephropathy per nephrology. At present patient complaints right rib pain and right shoulder pain. Denies any new onset MCDOWELL, dizziness, focal motor weakness, visual disturbances, speech disturbances or sensory loss. Per patient he lives in an apartment building with no steps going into the house, uses rollator to ambulate. Patient refused to participate in therapy at the rehab floor and requesting to be transferred to the residential. Patient had uncomplicated rehab stay. Will be transferred to half-way for further therapy. Meaningful Use Info Meaningful Use Diagnoses (Choose all that apply): None applicable
[2019-01-13 11:05] LABS: Bedside Glucose 144 mg/dL (70-110)
[2019-01-13] MEDS: Acetaminophen 325 MG Tablet 650 MG PO (11:36)
--- NOTE | 2019-01-13 12:00 | NURSING ---
Patient refusing to do anymore therapy today and has requested to be transferred to a shelter.
--- NOTE | 2019-01-13 15:26 | CASEMGMT ---
Social Work Referral made to [facility]. They have beds available. Referral faxed. Phone call to pt daughter with pt permission and left a voice mail requesting return call as soon as possible. [facility] return call and is able to accept pt. HIMANSHU Chandler
--- NOTE | 2019-01-13 16:16 | PCM.TXEXTCAR ---
- Diet 01/12/19 17:32 Diet: Cardiac: Calorie-Controlled Food consistency:: Regular Liquid Consistency:: Regular/Thin How many daily calories?: 1800 calorie Diet: Renal - Carb-Controlled Food consistency:: Regular Liquid Consistency:: Regular/Thin - Routine Orders/Code Status Suppository Type: Dulcolax 10mg Suppository Frequency: Daily PRN - Wound(s) coccyx Wound Type: Surgical Incision rt upper chest Wound Type: port deaccessed 01/12 CHRISTELLE Wound Type: Abrasion RFA Wound Type: Burn Left Top hand Wound Type: Burn RLE Wound Type: Abrasion LLE Wound Type: Abrasion - Therapies Weight Bearing: Weight bearing as tolerated Physical Therapy: Eval and Treat Occupational Therapy: Eval and Treat Speech Therapy: Eval and Treat - Allergies/Procedures Done in Hospital Allergies/Adverse Reactions: Allergies metoclopramide HCl [From Reglan] Adverse Reaction (Verified 01/03/19 16:08) goofy, anxious, elevated BP ondansetron HCl [From Zofran] Adverse Reaction (Verified 01/03/19 16:08) goofy, anxious, elevated BP Yivilxk-Aff-Hie Reductase Inhibitor Adverse Reaction (Verified 01/03/19 16:08) rhabdomyolosis - Type of Care/Length of Stay Estimated LOS: More Than 30 Days Type of Care Needed: Skilled Rehab Potential: Good Prognosis: Good - Additional Orders/Day of Discharge Day of Discharge: 01/13/19 - Dietary and Speech Recommendations Dietitian Recommendations/Changes: Rec diet change to 2000 caitlyn Cardiac/low sodium w/ fluid restriction as indicated - Follow Up Care Primary Care Physician: Malik Roper,Out of [Primary Care Provider] - When: Follow up with Dr. Flores Neurosurgery in 1 week When: Follow up with Cardiology in 1-2 weeks When: Follow up with Orthopedics for right shoulder pain ASIA When: F/U with Nephrology in 1-2 week s
--- NOTE | 2019-01-13 16:20 | PCM.PN.HOSP ---
Patient Problems: Active and Suspected Problems Debility (Acute) Subjective: Seen and examined. Patient complain of pain all over the body, mainly headache, left-sided rib region, right hip fracture. Patient was admitted to acute rehab unit yesterday for PT OT and speech evaluation. He had recent fall which led to left subdural hematoma in December 2018 and sustained multiple left-sided rib fracture, closed head injury. Patient underwent right thoracocentesis during that hospitalization. Patient has coronary artery disease status post CABG, multiple stents, ischemic cardiomyopathy with EF of about 38% on stress test done on 11/03/2018, chronic systolic congestive heart failure, AICD placement, hyperlipidemia, hypertension, diabetes mellitus type 2, carotid artery stenosis with history of right carotid endarterectomy, chronic renal failure, obstructive sleep apnea and right hip intertrochanteric fracture with evidence of severe DJD. I was called by the nurse in acute rehab as the patient needs to get discharged to SNF and does not want to stay here. Dr. Ziegler as did med reconciliation and transfer summary. Meds reconciliation and transfer summary is not signed. Vitals/I&O's: Vital Signs Temp Pulse Resp BP Pulse Ox 98.4 F 80 17 120/60 96 01/13/19 07:00 01/13/19 08:57 01/13/19 07:00 01/13/19 08:57 01/13/19 07:00 Oxygen Flow Rate (L/min) 2 Oxygen Delivery Method Room Air Weight: 252 lb 3.341 oz Body Mass Index (BMI) 37.3 Finger Stick Blood Glucose 42 Intake and Output for Last 24 Hours 01/11/19 01/12/19 01/13/19 23:59 23:59 23:59 Intake Total 480 / 480 Output Total 250 / 250 Balance 230 / 230 General: Alert, Oriented x3, Cooperative HEENT: Atraumatic, PERRLA, EOMI, Normocephalic Oral: Moist Mucosa, - - Edentulous Neck: Supple, No JVD, Negative Carotid Bruits Lungs: No rhonchi, No wheeze, No rales, Diminished Cardiovascular: Regular rate, Normal S1, Normal S2, No murmurs, - - AICD Abdomen: Bowel Sounds Present, Soft, Non Tender, Non-Distended Extremities: Edema Musculoskeletal: Arthritic Changes Neurological: Neuro grossly intact Laboratory Results 01/12/19 18:35: POC Glucose 151 H 01/12/19 20:54: POC Glucose 149 H 01/13/19 05:25: WBC 5.8, RBC 3.23 L, Hgb 9.3 L, Hct 29.9 L, MCV 92.6, MCH 28.8, MCHC 31.1 L, RDW 14.1, RDW Differential 46.1 H, Plt Count 191, MPV 9.4, Immature Gran % (Auto) 0.200, Neut % (Auto) 58.8, Lymph % (Auto) 22.8, [place] % (Auto) 12.5 H, Eos % (Auto) 4.8, Baso % (Auto) 0.9, Absolute Neuts (auto) 3.4, Absolute Lymphs (auto) 1.33, Total Counted Not Reportable 01/13/19 05:25: Sodium 138, Potassium 4.0, Chloride 107, Carbon Dioxide 24.0, Anion Gap 7, BUN 16, Creatinine 1.35 H, Estim Creat Clear Calc 54.89, Est GFR (MDRD) Af Amer 69, Est GFR (MDRD) Non-Af 57 L, BUN/Creatinine Ratio 11.9, Glucose 110 H, Calcium 8.5, Total Bilirubin 0.40, AST 19, ALT 12 L, Alkaline Phosphatase 120 H, Total Protein 6.2 L, Albumin 2.7 L, Globulin 3.5, Albumin/Globulin Ratio 0.8 L 01/13/19 06:39: POC Glucose 111 H 01/13/19 10:55: POC Glucose 144 H Current Medications Acetaminophen (Tylenol) 650 mg PO Q8H PRN PRN PRN Reason: PAIN Last Admin: 01/13/19 11:36 Dose: 650 mg Albuterol/Ipratropium (Duoneb) 3 ml INHALATION Q4H PRN PRN PRN Reason: SOB/Wheezing Amlodipine Besylate (Norvasc) 5 mg PO DAILY [facility] Last Admin: 01/13/19 08:55 Dose: 5 mg Bisacodyl (Dulcolax) 10 mg RECTAL .PRN X 1 PRN PRN Reason: Constipation Carvedilol (Coreg) 25 mg PO BID [facility] Last Admin: 01/13/19 08:57 Dose: 25 mg Duloxetine HCl (Cymbalta) 30 mg PO DAILY [facility] Stop: 01/17/19 10:00 Last Admin: 01/13/19 08:55 Dose: 30 mg Duloxetine HCl (Cymbalta) 60 mg PO DAILY [facility] Famotidine (Pepcid) 20 mg PO BID [facility] Last Admin: 01/13/19 08:55 Dose: 20 mg Gabapentin (Neurontin) 300 mg PO BID [facility] Last Admin: 01/13/19 08:55 Dose: 300 mg Heparin Sodium (Porcine) (Heparin Na) 5,000 unit SC Q8 [facility] Last Admin: 01/13/19 14:30 Dose: 5,000 unit Hydralazine HCl (Apresoline) 25 mg PO BID [facility] Last Admin: 01/13/19 08:57 Dose: 25 mg Hydroxyzine Pamoate (Vistaril Pamoate Capsule) 25 mg PO BID PRN PRN Reason: ITCHING Insulin Glargine (Lantus (Bkc)) 10 units SC QHS [facility] Last Admin: 01/12/19 20:59 Dose: 10 u Insulin Human Lispro (Humalog Kwikpen (Bk)) 0 unit SC ACHS [facility]; Protocol Last Admin: 01/13/19 11:36 Dose: Not Given Levetiracetam (Keppra Tablet) 500 mg PO BID [facility] Stop: 01/14/19 10:01 Last Admin: 01/13/19 08:55 Dose: 500 mg Lidocaine (Lidoderm Patch) 1 patch TOPICAL DAILY [facility]; Protocol Last Admin: 01/13/19 08:56 Dose: 1 patch Losartan Potassium (Cozaar) 50 mg PO DAILY [facility] Last Admin: 01/13/19 08:55 Dose: 50 mg Magnesium Hydroxide (Milk Of Magnesia) 30 ml PO .PRN X 1 PRN PRN Reason: Constipation Nitroglycerin (Nitrostat) 0.4 mg SUBLINGUAL Q5M PRN PRN Reason: chest pain Nystatin (Mycostatin Powder) 1 applic TOPICAL TID [facility]; Protocol Last Admin: 01/13/19 14:30 Dose: Not Given Oxycodone HCl (Oxyir) 5 - 10 mg PO Q6H PRN PRN PRN Reason: PAIN Last Admin: 01/13/19 15:30 Dose: 10 mg Senna/Docusate Sodium (Senokot-S, Kaur-Colace) 2 tablet PO BID [facility] Last Admin: 01/13/19 08:55 Dose: 2 tablet Sertraline HCl (Zoloft) 100 mg PO DAILY [facility] Last Admin: 01/13/19 08:56 Dose: 100 mg Tamsulosin HCl (Flomax) 0.4 mg PO DAILY [facility] Last Admin: 01/13/19 08:55 Dose: 0.4 mg Tizanidine HCl (Zanaflex) 2 mg PO BID PRN PRN PRN Reason: muslce tightness/spasms Last Admin: 01/12/19 20:57 Dose: 2 mg Medical Necessity - Tobacco Use Smoking Status: Never smoker Assessment/Plan All Active Problems Debility (Acute) Acute kidney injury (Resolved) Anemia (Resolved) Abnormal cardiac enzyme level (Resolved) Chest pain (Resolved) Shortness of breath (Resolved) hx epidural abscess (Resolved) This is a 63-year-old gentleman who was admitted to acute rehab for debility secondary to left subdural hematoma in December 2018 after a fall. He sustained multiple left rib fractures, closed head trauma. He also has chronic kidney disease. #1 debility secondary to left subdural hematoma: Patient is being transferred to SNF for PT, OT and speech evaluation. 2. Carotid artery disease with ischemic cardiomyopathy-patient is on losartan, carvedilol and Nitrostat as needed. Aspirin and Plavix was stopped after patient had subdural hematoma 3 type 2 diabetes mellitus: Patient need to continue Lantus and lispro insulin as per sliding scale 4 osteoarthritis 5 Status post right hip fracture with ORIF October 2018 6 Diabetic neuropathy-I have restarted the patient's Cymbalta 7 recent multiple left rib fractures 8. CKD stage III: Patient kidney is sensitive to vancomycin in the past after he was given because of right heel ulcer, MRSA infection which has almost healed. Still slight redness and skin peeling off. #9 hypertension Transfer summary to [facility] was completed on behalf of Dr. Ziegler. Discharge summary from Dr. Ziegler. Code Visit Inpatient E&M: 55477 Subs Hosp L2
--- NOTE | 2019-01-13 16:29 | PN_ITS ---
Patient Problems: Active and Suspected Problems Debility (Acute) Subjective: Seen and examined. Patient complain of pain all over the body, mainly headache, left-sided rib region, right hip fracture. Patient was admitted to acute rehab unit yesterday for PT OT and speech evaluation. He had recent fall which led to left subdural hematoma in December 2018 and sustained multiple left-sided rib fracture, closed head injury. Patient underwent right thoracocentesis during that hospitalization. Patient has coronary artery disease status post CABG, multiple stents, ischemic cardiomyopathy with EF of about 38% on stress test done on 11/03/2018, chronic systolic congestive heart failure, AICD placement, hyperlipidemia, hypertension, diabetes mellitus type 2, carotid artery stenosis with history of right carotid endarterectomy, chronic renal failure, obstructive sleep apnea and right hip intertrochanteric fracture with evidence of severe DJD. I was called by the nurse in acute rehab as the patient needs to get discharged to SNF and does not want to stay here. Dr. Ziegler as did med reconciliation and transfer summary. Meds reconciliation and transfer summary is not signed. Vitals/I&O's: Vital Signs Temp Pulse Resp BP Pulse Ox 98.4 F 80 17 120/60 96 01/13/19 07:00 01/13/19 08:57 01/13/19 07:00 01/13/19 08:57 01/13/19 07:00 Oxygen Flow Rate (L/min) 2 Oxygen Delivery Method Room Air Weight: 252 lb 3.341 oz Body Mass Index (BMI) 37.3 Finger Stick Blood Glucose 42 Intake and Output for Last 24 Hours 01/11/19 01/12/19 01/13/19 23:59 23:59 23:59 Intake Total 480 / 480 Output Total 250 / 250 Balance 230 / 230 General: Alert, Oriented x3, Cooperative HEENT: Atraumatic, PERRLA, EOMI, Normocephalic Oral: Moist Mucosa, - - Edentulous Neck: Supple, No JVD, Negative Carotid Bruits Lungs: No rhonchi, No wheeze, No rales, Diminished Cardiovascular: Regular rate, Normal S1, Normal S2, No murmurs, - - AICD Abdomen: Bowel Sounds Present, Soft, Non Tender, Non-Distended Extremities: Edema Musculoskeletal: Arthritic Changes Neurological: Neuro grossly intact Laboratory Results 01/12/19 18:35: POC Glucose 151 H 01/12/19 20:54: POC Glucose 149 H 01/13/19 05:25: WBC 5.8, RBC 3.23 L, Hgb 9.3 L, Hct 29.9 L, MCV 92.6, MCH 28.8, MCHC 31.1 L, RDW 14.1, RDW Differential 46.1 H, Plt Count 191, MPV 9.4, Immature Gran % (Auto) 0.200, Neut % (Auto) 58.8, Lymph % (Auto) 22.8, [place] % (Auto) 12.5 H, Eos % (Auto) 4.8, Baso % (Auto) 0.9, Absolute Neuts (auto) 3.4, Absolute Lymphs (auto) 1.33, Total Counted Not Reportable 01/13/19 05:25: Sodium 138, Potassium 4.0, Chloride 107, Carbon Dioxide 24.0, Anion Gap 7, BUN 16, Creatinine 1.35 H, Estim Creat Clear Calc 54.89, Est GFR (MDRD) Af Amer 69, Est GFR (MDRD) Non-Af 57 L, BUN/Creatinine Ratio 11.9, Glucose 110 H, Calcium 8.5, Total Bilirubin 0.40, AST 19, ALT 12 L, Alkaline Phosphatase 120 H, Total Protein 6.2 L, Albumin 2.7 L, Globulin 3.5, Albumin/Globulin Ratio 0.8 L 01/13/19 06:39: POC Glucose 111 H 01/13/19 10:55: POC Glucose 144 H Current Medications Acetaminophen (Tylenol) 650 mg PO Q8H PRN PRN PRN Reason: PAIN Last Admin: 01/13/19 11:36 Dose: 650 mg Albuterol/Ipratropium (Duoneb) 3 ml INHALATION Q4H PRN PRN PRN Reason: SOB/Wheezing Amlodipine Besylate (Norvasc) 5 mg PO DAILY [facility] Last Admin: 01/13/19 08:55 Dose: 5 mg Bisacodyl (Dulcolax) 10 mg RECTAL .PRN X 1 PRN PRN Reason: Constipation Carvedilol (Coreg) 25 mg PO BID [facility] Last Admin: 01/13/19 08:57 Dose: 25 mg Duloxetine HCl (Cymbalta) 30 mg PO DAILY [facility] Stop: 01/17/19 10:00 Last Admin: 01/13/19 08:55 Dose: 30 mg Duloxetine HCl (Cymbalta) 60 mg PO DAILY [facility] Famotidine (Pepcid) 20 mg PO BID [facility] Last Admin: 01/13/19 08:55 Dose: 20 mg Gabapentin (Neurontin) 300 mg PO BID [facility] Last Admin: 01/13/19 08:55 Dose: 300 mg Heparin Sodium (Porcine) (Heparin Na) 5,000 unit SC Q8 [facility] Last Admin: 01/13/19 14:30 Dose: 5,000 unit Hydralazine HCl (Apresoline) 25 mg PO BID [facility] Last Admin: 01/13/19 08:57 Dose: 25 mg Hydroxyzine Pamoate (Vistaril Pamoate Capsule) 25 mg PO BID PRN PRN Reason: ITCHING Insulin Glargine (Lantus (Bkc)) 10 units SC QHS [facility] Last Admin: 01/12/19 20:59 Dose: 10 u Insulin Human Lispro (Humalog Kwikpen (Bk)) 0 unit SC ACHS [facility]; Protocol Last Admin: 01/13/19 11:36 Dose: Not Given Levetiracetam (Keppra Tablet) 500 mg PO BID [facility] Stop: 01/14/19 10:01 Last Admin: 01/13/19 08:55 Dose: 500 mg Lidocaine (Lidoderm Patch) 1 patch TOPICAL DAILY [facility]; Protocol Last Admin: 01/13/19 08:56 Dose: 1 patch Losartan Potassium (Cozaar) 50 mg PO DAILY [facility] Last Admin: 01/13/19 08:55 Dose: 50 mg Magnesium Hydroxide (Milk Of Magnesia) 30 ml PO .PRN X 1 PRN PRN Reason: Constipation Nitroglycerin (Nitrostat) 0.4 mg SUBLINGUAL Q5M PRN PRN Reason: chest pain Nystatin (Mycostatin Powder) 1 applic TOPICAL TID [facility]; Protocol Last Admin: 01/13/19 14:30 Dose: Not Given Oxycodone HCl (Oxyir) 5 - 10 mg PO Q6H PRN PRN PRN Reason: PAIN Last Admin: 01/13/19 15:30 Dose: 10 mg Senna/Docusate Sodium (Senokot-S, Kaur-Colace) 2 tablet PO BID [facility] Last Admin: 01/13/19 08:55 Dose: 2 tablet Sertraline HCl (Zoloft) 100 mg PO DAILY [facility] Last Admin: 01/13/19 08:56 Dose: 100 mg Tamsulosin HCl (Flomax) 0.4 mg PO DAILY [facility] Last Admin: 01/13/19 08:55 Dose: 0.4 mg Tizanidine HCl (Zanaflex) 2 mg PO BID PRN PRN PRN Reason: muslce tightness/spasms Last Admin: 01/12/19 20:57 Dose: 2 mg Medical Necessity - Tobacco Use Smoking Status: Never smoker Assessment/Plan All Active Problems Debility (Acute) Acute kidney injury (Resolved) Anemia (Resolved) Abnormal cardiac enzyme level (Resolved) Chest pain (Resolved) Shortness of breath (Resolved) hx epidural abscess (Resolved) This is a 63-year-old gentleman who was admitted to acute rehab for debility secondary to left subdural hematoma in December 2018 after a fall. He sustained multiple left rib fractures, closed head trauma. He also has chronic kidney disease. #1 debility secondary to left subdural hematoma: Patient is being transferred to SNF for PT, OT and speech evaluation. 2. Carotid artery disease with ischemic cardiomyopathy-patient is on losartan, carvedilol and Nitrostat as needed. Aspirin and Plavix was stopped after patient had subdural hematoma 3 type 2 diabetes mellitus: Patient need to continue Lantus and lispro insulin as per sliding scale 4 osteoarthritis 5 Status post right hip fracture with ORIF October 2018 6 Diabetic neuropathy-I have restarted the patient's Cymbalta 7 recent multiple left rib fractures 8. CKD stage III: Patient kidney is sensitive to vancomycin in the past after he was given because of right heel ulcer, MRSA infection which has almost healed. Still slight redness and skin peeling off. #9 hypertension Transfer summary to [facility] was completed on behalf of Dr. Ziegler. Discharge summary from Dr. Ziegler. Code Visit Inpatient E&M: 46046 Subs Hosp L2
[2019-01-13 16:30] VITALS: BP 120/61; PULSE 56; RESP 17; TEMP 36.9; O2SAT 93
--- NOTE | 2019-01-13 16:45 | NURSING ---
Discharged to [facility] and report provided, in good spirits. Patient reported he tried to call his daughter to tell her and that she did not answer her phone. Alert and oriented x 3 at this time, no neurological issues, no headache, no vision changes.
[2019-01-13 16:46] LABS: Bedside Glucose 165 mg/dL (70-110)
--- NOTE | 2019-01-13 16:53 | CASEMGMT ---
Social Work: HENS completed and copy put in chart. TC to [facility]. Transport by cot scheduled for 5:00pm. TC to Jenni at [facility]. Jenni aware that patient will be leaving [facility] at 5:00pm. Orders faxed. Spoke with patient who is aware that he will be transported to [facility] by [facility] at 5:00pm. PLAN: Patient to be discharged to [facility] today for skilled care. LOLY Dickerson
== END 2019-01-13 16:55 | disposition skilled nursing facility (03) | DRG 948 ==
PROVIDERS: Admitting Provider Psychiatry & Neurology Neurology; Visit Provider Internal Medicine
DX: R53.81 Other malaise (principal); I50.22 Chronic systolic (congestive) heart failure; S06.5X9D Traumatic subdural hemorrhage with loss of consciousness of unspecified duration, subsequent encounter; S22.42XD Multiple fractures of ribs, left side, subsequent encounter for fracture with routine healing; E78.5 Hyperlipidemia, unspecified; W19.XXXD Unspecified fall, subsequent encounter; I25.10 Atherosclerotic heart disease of native coronary artery without angina pectoris; Z95.1 Presence of aortocoronary bypass graft; G47.33 Obstructive sleep apnea (adult) (pediatric); E66.01 Morbid (severe) obesity due to excess calories; Z68.37 Body mass index [BMI] 37.0-37.9, adult; Z71.3 Dietary counseling and surveillance; F32.9 Major depressive disorder, single episode, unspecified; I25.5 Ischemic cardiomyopathy; E11.40 Type 2 diabetes mellitus with diabetic neuropathy, unspecified; Z95.810 Presence of automatic (implantable) cardiac defibrillator; M19.90 Unspecified osteoarthritis, unspecified site; I11.0 Hypertensive heart disease with heart failure; L89.610 Pressure ulcer of right heel, unstageable
CPT/HCPCS: 36415; 80053; 82962; 85025; 97162; 97802

== ENCOUNTER 2019-01-14 22:23 | Emergency (ER) | payer MEDICARE, OTHER, SELFPAY ==
[2019-01-12 17:26] VITALS: BMI 37.3
[2019-01-14 22:25] VITALS: BP 134/73; PULSE 62; RESP 16; TEMP 35.9; O2SAT 93; BMI 38.6
--- NOTE | 2019-01-14 22:37 | CT_ITS ---
STUDY: CT BRAIN WITHOUT CONTRAST REASON FOR EXAM: Male, 63 years old. Follow up subdural hematoma. RADIATION DOSAGE (If Supplied By Facility): CTDIvol = ( 44.99 ) mGy, DLP = ( 863.60 ) mGycm TECHNIQUE: Transaxial CT imaging of the brain was performed without administration of intravenous contrast material. Individualized dose optimization techniques were used for this CT. COMPARISON: 01/03/2019. FINDINGS: Normal soft tissue structures. Normal calvarium. There is minimal prominence of the ventricles and cortical sulci. There again is a left parafalcine subdural hematoma unchanged or may be slightly decreased in size since previous examination. It measures now about 8 mm in thickness. The extension into the edge of the tentorium has decreased. There is however focal area of increased attenuation in the left occipital fossa probably at the edge of the tentorium best seen on axial image 14 series 2. Parenchymal hemorrhage is less likely. No shift of the midline or mass effect are seen. Normal basal ganglia and thalami. Normal brainstem. Normal cerebellum. Normal visualized paranasal sinuses. CT/Brain/Head without Contrast IMPRESSION: 1. Left parafalcine subdural hematoma unchanged or may be slightly decreased in size since previous examination. 2. Questionable focal blood at the edge of the left-sided tentorium as described above. Further follow-up exams are recommended. 3. No shift in the midline or mass effect are seen. Electronically Signed: Zion Flores MD at 0:34 EDT Tel , Service support ,
--- NOTE | 2019-01-14 22:39 | EKG12_ITS ---
Test Reason : DYSRHYTMIA Blood Pressure : / mmHG Vent. Rate : 061 BPM Atrial Rate : 061 BPM P-R Int : 000 ms QRS Dur : 168 ms QT Int : 456 ms P-R-T Axes : 000 262 036 degrees QTc Int : 459 ms Normal Sinus Rhythm Right bundle branch block Abnormal ECG Confirmed by SHERI KEY, ACE ([id number]), avid editor ROSANGELA QUINTERO ([id number]) on 01/15/2019 1:14:25 PM Referred By: CELESTINA Confirmed By:ACE WADE MD
--- NOTE | 2019-01-14 22:47 | ED.VISSUMM ---
- ER Visit Summary Date of Service: 01/14/19 Chief Complaint: Headache History of Present Illness: The patient is a 63 M who requested a ambulance bring him to the emergency department from long term facility for headache. He described as frontal occipital and throbbing. He notes black spots in his vision. He states that he was recently fallen and broken his leg. From what I can see he was seen earlier this year with a right hip fracture. Then (about 10 days ago) he fell and had subdural hematoma and right-sided rib fractures and was transferred to [facility] where he was transferred back to [place] for rehab. He tells me that nobody has told him anything that is wrong with him. He states that everything hurts on him. He states that Tylenol does not work statins do not work and request a shot of tramadol. Tells me that he was upset that nobody would bring him anything for pain so he asked for an ambulance. senior care facility notes an elevated blood sugar for which she received insulin. He tells me that all the stress is made hurt more. Physical Examination: Afebrile vital signs are stable Gen: Well-nourished well-developed orbit obesity Head: Normocephalic atraumatic Eyes: Perrl EOMI ENT: TMs clear no rhinorrhea moist mucous membranes Neck: Supple no lymphadenopathy no JVD nontender CVS: Regular rate rhythm no murmurs normal S1-S2 Respiratory: No distress clear to auscultation bilaterally chest is diffusely tender to palpation Abdomen: Soft diffusely tender nondistended normal bowel sounds no masses Back: Diffusely tender Extremity: 1+ bilateral lower extremity edema symmetric. Diffusely tender over all extremities and can even to light touch Skin: Normal color no rash Neuro: alert orientated ?3 CN II-XII intact normal strength sensation Psych: Normal affect normal mood Test Results: Basic labs are negative. Blood sugar is significantly improved from the m[facility]p. CT of the brain demonstrates improving subdural. Please see radiologist details for complete reading Emergency Department Course and Treatment: Patient received Toradol. Repeat examination he is sleeping. He will be discharged home instructions to follow-up as scheduled Impression: 1. Headache 2. Subacute subdural hematoma This note was generated with [employer] software. It may contain incorrect words, spelling, and punctuation that were not noted in review of the chart prior to signing ED Disposition - Plan for ED Patient: Disposition: Home or Assisted Living Instructions: ED Cephalgia Unspecified Referrals: Gumaro Kemp MD [STAFF PHYSICIAN] - Keep Jacqui appointment
--- NOTE | 2019-01-14 22:50 | ED.DCSUM_ITS ---
- ER Visit Summary Date of Service: 01/14/19 Chief Complaint: Headache History of Present Illness: The patient is a 63 M who requested a ambulance bring him to the emergency department from long term facility for headache. He described as frontal occipital and throbbing. He notes black spots in his vision. He states that he was recently fallen and broken his leg. From what I can see he was seen earlier this year with a right hip fracture. Then (about 10 days ago) he fell and had subdural hematoma and right-sided rib fractures and was transferred to [facility] where he was transferred back to [place] for rehab. He tells me that nobody has told him anything that is wrong with him. He states that everything hurts on him. He states that Tylenol does not work statins do not work and request a shot of tramadol. Tells me that he was upset that nobody would bring him anything for pain so he asked for an ambulance. nursing home facility notes an elevated blood sugar for which she received insulin. He tells me that all the stress is made hurt more. Physical Examination: Afebrile vital signs are stable Gen: Well-nourished well-developed orbit obesity Head: Normocephalic atraumatic Eyes: Perrl EOMI ENT: TMs clear no rhinorrhea moist mucous membranes Neck: Supple no lymphadenopathy no JVD nontender CVS: Regular rate rhythm no murmurs normal S1-S2 Respiratory: No distress clear to auscultation bilaterally chest is diffusely tender to palpation Abdomen: Soft diffusely tender nondistended normal bowel sounds no masses Back: Diffusely tender Extremity: 1+ bilateral lower extremity edema symmetric. Diffusely tender over all extremities and can even to light touch Skin: Normal color no rash Neuro: alert orientated ?3 CN II-XII intact normal strength sensation Psych: Normal affect normal mood Test Results: Basic labs are negative. Blood sugar is significantly improved from the mcc. CT of the brain demonstrates improving subdural. Please see radiologist details for complete reading Emergency Department Course and Treatment: Patient received Toradol. Repeat examination he is sleeping. He will be discharged home instructions to follow- up as scheduled Impression: 1. Headache 2. Subacute subdural hematoma This note was generated with [employer] software. It may contain incorrect words, spelling, and punctuation that were not noted in review of the chart prior to signing ED Disposition - Plan for ED Patient: Disposition: Home or Assisted Living Instructions: ED Cephalgia Unspecified Referrals: Gumaro Kemp MD [STAFF PHYSICIAN] - Keep Jacqui appointment
[2019-01-14] MEDS: Ketorolac 15 MG/ML Vial IV (23:05)
[2019-01-14 23:20] LABS: Anion Gap 5 (5-15); BUN 14 mg/dL (7-18); BUN/Creat Ratio 12.3 RATIO (10-20); Calcium,Total 8.1 mg/dL (8.5-10.1); Chloride 108 mmol/L (98-107); Creatinine, Serum 1.14 mg/dL (0.70-1.30); EST Glomerular Filtration Rate 69 mL/min (>60); Est Glom Filt Rate - Afr Amer 84 mL/min (>60); Estimated Creatinine Clearance 67.19 ml/min; Glucose 115 mg/dL (74-106); Potassium 3.8 mmol/L (3.5-5.1); Sodium Level 139 mmol/L (136-145)
[2019-01-14 23:48] LABS: Absolute Lymphocyte Count 1.22 X10^3/ul (0.83-4.51); Absolute Neutrophil Count 5.5 X10^3/uL (2.0-7.7); Basophil# 0.06 X10^3/uL; Basophil% 0.8 % (0-1); Eosinophil# 0.32 X10^3/uL; Hematocrit 31.5 % (40-54); Hemoglobin 9.8 g/dl (13.0-16.5); Lymphocyte # 1.22 X10^3/ul (4.0); Lymphocyte % 15.4 % (19-41); Mean Corp Hgb Conc 31.1 g/gl (32-36); Mean Corpuscular Hgb 29.1 pg (27.0-32.0); Mean Corpuscular Volume 93.5 fL (80-94); Mean Platelet Vol. 9.6 fl (6.2-12.0); Monocyte# 0.76 X10^3/uL; Monocyte% 9.6 % (0-10); Neutrophil # 5.52 X10^3/uL (2.7-7.7); Neutrophil % 69.8 % (47-70); Platelet Count 216 K/mm3 (150-450); RBC Distribution Width CV 14.1 % (11.6-14.6); Red Blood Count 3.37 M/mm3 (4.6-6.2); White Blood Count 7.9 K/mm3 (4.4-11.0)
[2019-01-14 23:49] LABS: POSITIVE COUNT NO; POSITIVE DIFFERENTIAL NO; POSITIVE MORPHOLOGY NO
--- NOTE | 2019-01-15 00:11 | ED.RN ---
MD MADE AWARE THAT THE PT IS C/O HEAD PAIN STILL AND ASKING FOR MORE TORADOL.MD STATED WAITING FOR CT OF HEAD FIRST.PT UPDATED.
[2019-01-15 00:27] VITALS: BP 129/68; PULSE 55; RESP 16; O2SAT 93
[2019-01-15] MEDS: Ketorolac 15 MG/ML Vial IV (00:55)
[2019-01-15 01:10] VITALS: BP 118/67; PULSE 56; RESP 18; O2SAT 94
== END 2019-01-15 01:33 | disposition skilled nursing facility (03) ==
PROVIDERS: Emergency Provider Emergency Medicine
DX: I62.02 Nontraumatic subacute subdural hemorrhage (principal); R51 Headache; E11.9 Type 2 diabetes mellitus without complications; I10 Essential (primary) hypertension; E78.00 Pure hypercholesterolemia, unspecified; I25.10 Atherosclerotic heart disease of native coronary artery without angina pectoris; I50.9 Heart failure, unspecified; G47.33 Obstructive sleep apnea (adult) (pediatric); M79.10 Myalgia, unspecified site; Z79.4 Long term (current) use of insulin
CPT/HCPCS: 70450; 80048; 85025; 93005; 96374; 96376; 99284; A4216

== ENCOUNTER 2019-01-18 18:38 | Inpatient (IN) | payer MEDICARE, OTHER, SELFPAY ==
[2019-01-18] VITALS (11 sets, daily range): BP systolic 158–188; BP diastolic 62–110; PULSE 63–75; RESP 18–24; TEMP 36.9–37.2; O2SAT 85–99; BMI 38.5; BMI 41.8
--- NOTE | 2019-01-18 19:13 | EKG12_ITS ---
Test Reason : SOB Blood Pressure : / mmHG Vent. Rate : 073 BPM Atrial Rate : 069 BPM P-R Int : 000 ms QRS Dur : 168 ms QT Int : 454 ms P-R-T Axes : 000 253 053 degrees QTc Int : 500 ms Normal sinus rhythm Right bundle branch block Abnormal ECG Confirmed by SHERI KEY, ACE ([id number]), senior technical editor ROSANGELA QUINTERO ([id number]) on 01/20/2019 1:26:14 PM Referred By: ALEJANDRA Confirmed By:ACE WADE MD
--- NOTE | 2019-01-18 19:13 | RAD_ITS ---
STUDY: X-RAY CHEST REASON FOR EXAM: Male, 63 years old. Shortness of breath TECHNIQUE: Single AP portable view of the chest. COMPARISON: Prior study of 01/03/2019 FINDINGS: There is a unipolar left-sided pacemaker. There is a right-sided MediPort with catheter tip superimposed on the atriocaval junction. There is a right perihilar infiltrate and/or atelectasis. There is fluid and/or thickening of the right minor fissure. There is a small right basilar effusion. There is mild cardiomegaly. Status post sternotomy changes are present. Normal mediastinum and rachele. Normal visualized pulmonary arteries. Normal visualized aortic arch and descending thoracic aorta. Normal visualized thoracic spine. There are degenerative changes of the right shoulder joint. There is no demonstrated abnormality of the visualized soft tissue structures of the upper abdomen. RAD/Chest 1 View (Portable) IMPRESSION: There is a small right perihilar infiltrate. There is minimal fluid and/or thickening of the right minor fissure. These abnormalities represent new interval findings from the previous study. There is also demonstrated a new small right-sided pleural effusion. There is mild cardiomegaly. Status post sternotomy changes are present. There is a right-sided MediPort with catheter tip superimposed on the atriocaval junction. There are severe degenerative changes of the right shoulder joint. Electronically Signed: Gerardo Villegas MD at 21:19 EDT , Service support ,
--- NOTE | 2019-01-18 19:16 | ED.VIS.GEN ---
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 chest pain Narrative: Patient has been in rehab this past week, he recently was in an [facility] and had a repair of his proximal right femur that had fractured. He was discharged to rehab around 5 or 6 days ago and started getting short of breath afterwards, it has progressively worsened. He states he has had left-sided chest discomfort as well. He cannot remember exactly when it started. He has a history of congestive heart failure and currently is on no diuretic. - Past Medical History (1) Benign hypertension Status: Chronic (2) CAD (coronary artery disease) Status: Chronic Comment: extensive disease multiple stents (3) Carotid artery stenosis Status: Chronic Comment: R CEA (4) Chronic CHF (congestive heart failure) Status: Chronic Comment: ef=25% as of 04/04 (5) DM type 2 (diabetes mellitus, type 2) Status: Chronic (6) Hyperlipidemia Status: Chronic (7) LISSA (obstructive sleep apnea) Status: Chronic (8) Anemia Status: Chronic Past Medical History - Allergies and Home Meds Allergies/Adverse Reactions: Allergies metoclopramide HCl [From Reglan] Adverse Reaction (Verified 01/18/19 19:49) goofy, anxious, elevated BP ondansetron HCl [From Zofran] Adverse Reaction (Verified 01/18/19 19:49) goofy, anxious, elevated BP Yfhbhla-Obr-Frk Reductase Inhibitor Adverse Reaction (Verified 01/18/19 19:49) rhabdomyolosis Primary Care Physician: [facility] ,Out of [Primary Care Provider] - Surgical History: appendectomy, cataract, cholecystectomy, coronary bypass surgery - 2004 - [place], herniorrhaphy, tonsillectomy, - - Cardiac stent placement ?24 (according to patient), right carotid endarterectomy. Lives: [facility] - rehab Smoking Status: Never smoker - Family History Maternal Family History: Reports: No pertinent history Paternal Family History: Reports: Heart Disease - of an [place] at age 61 Sibling Family History: Reports: No pertinent history Review of Systems General: Reports: Malaise. Denies: Chills, Fever Eyes: Denies: Visual changes - bilaterally, Diplopia ENT: Denies: Rhinorrhea, Sore throat Cardiovascular: Reports: Chest pain - left Respiratory: Reports: Dyspnea, Cough, Dyspnea on exertion, Orthopnea. Denies: Sputum Gastrointestinal: Reports: Nausea. Denies: Abdominal pain, Vomiting, Diarrhea, Melena, Hematochezia Genitourinary: Denies: Dysuria, Hematuria, Frequency Musculoskeletal: Reports: Swelling, Extremity Pain - right hip since surgery Skin: Denies: Rash, Wounds Neurological: Denies: Headache, Weakness, Numbness Physical Exam Vital Signs/Narrative: Vital Signs Temp Pulse Resp BP Pulse Ox 01/18/19 18:39 98.4 F 73 24 H 188/88 H 85 Inital Vital Signs reviewed: Yes General: Well nourished, Well developed, No Acute Distress Head: Normocephalic, Atraumatic Eyes: Perrl, EOMI ENT: Moist mucous membranes, No rhinorrhea Neck: Supple, Nontender, - - +JVD Cardiovascular: Regular rate, Regular rhythm, No murmurs Respiratory: No distress, Chest nontender, Rales - bibasilar, Wheezing - throughout expiration bilat Abdomen: Soft, Nontender, Nondistended, Normal bowel sounds Back: Negative for: CVA tenderness Extremities: Nontender, Edema - 3+ BLE. no signs of cellulitis Skin: Normal color, No rash Neurological: Alert, Oriented x3, Cranial nerves II-XII grossly intact, Normal Strength, Normal Sensation Psychological: Normal affect, Normal Mood Diagnostic/Tx/Re-eval Impressions Chest X-Ray 01/18/19 19:13 IMPRESSION: There is a small right perihilar infiltrate. There is minimal fluid and/or thickening of the right minor fissure. These abnormalities represent new interval findings from the previous study. There is also demonstrated a new small right-sided pleural effusion. There is mild cardiomegaly. Status post sternotomy changes are present. There is a right-sided MediPort with catheter tip superimposed on the atriocaval junction. There are severe degenerative changes of the right shoulder joint. Electronically Signed: Gerardo Villegas MD at 21:19 EDT , Service support , 01/18/19 19:13 Chest 1 View (Portable) [RAD] Stat Laboratory Results 01/18/19 01/18/19 01/18/19 19:00 19:00 19:00 WBC 5.8 RBC 3.58 L Hgb 10.4 L Hct 32.8 L MCV 91.6 MCH 29.1 MCHC 31.7 L RDW 14.6 RDW Differential 48.9 H Plt Count 179 MPV 9.3 Immature Gran % (Auto) 0.200 Neut % (Auto) 72.9 H Lymph % (Auto) 14.1 L [place] % (Auto) 9.9 Eos % (Auto) 2.4 Baso % (Auto) 0.5 Absolute Neuts (auto) 4.2 Absolute Lymphs (auto) 0.81 L Total Counted Not Reportable PT 15.2 H INR 1.2 APTT 43.5 H Sodium 136 Potassium 4.4 Chloride 105 Carbon Dioxide 25.0 Anion Gap 6 BUN 18 Creatinine 1.08 Estim Creat Clear Calc 70.92 Est GFR (MDRD) Af Amer 89 Est GFR (MDRD) Non-Af 74 BUN/Creatinine Ratio 16.7 Glucose 134 H Lactic Acid Calcium 7.9 L Total Bilirubin 0.50 AST 26 ALT 14 L Alkaline Phosphatase 140 H Troponin I 0.017 B-Natriuretic Peptide Total Protein 6.7 Albumin 2.9 L Globulin 3.8 Albumin/Globulin Ratio 0.8 L Urine Color Urine Clarity Urine pH Ur Specific [place] Urine Protein Urine Glucose (UA) Urine Ketones Urine Occult Blood Urine Nitrite Urine Bilirubin Urine Urobilinogen Ur Leukocyte Esterase 01/18/19 01/18/19 01/18/19 19:30 19:30 21:04 WBC RBC Hgb Hct MCV MCH MCHC RDW RDW Differential Plt Count MPV Immature Gran % (Auto) Neut % (Auto) Lymph % (Auto) [place] % (Auto) Eos % (Auto) Baso % (Auto) Absolute Neuts (auto) Absolute Lymphs (auto) Total Counted PT INR APTT Sodium Potassium Chloride Carbon Dioxide Anion Gap BUN Creatinine Estim Creat Clear Calc Est GFR (MDRD) Af Amer Est GFR (MDRD) Non-Af BUN/Creatinine Ratio Glucose Lactic Acid 0.5 Calcium Total Bilirubin AST ALT Alkaline Phosphatase Troponin I B-Natriuretic Peptide 963.2 H Total Protein Albumin Globulin Albumin/Globulin Ratio Urine Color Straw Urine Clarity Clear Urine pH 6.0 Ur Specific [place] 1.010 Urine Protein 30 H Urine Glucose (UA) Normal Urine Ketones Negative Urine Occult Blood 10 H Urine Nitrite Negative Urine Bilirubin Negative Urine Urobilinogen Normal Ur Leukocyte Esterase Negative - Rhythm Strip Rhythm Strip: Sinus Rhythm Rate: 73 Ectopy: None - EKG Initial EKG Interpretation: Sinus Rhythm, No Acute Injury Pattern, RBBB, Inverted T-Waves - anterior Prior: Unchanged - Medical Decision Making Septic workup was ordered initially including blood cultures and lactate, lactate returned normal white blood count is well within normal limits, and the workup is more consistent with an exacerbation of congestive heart failure than infection. He was treated with IV Lasix, nitroglycerin sublingual, and nebulizer treatments. He states his breathing is better and his chest discomfort feels much better. We will place nitroglycerin paste on his chest, continue oxygen treatment for his hypoxemia, watch his high blood pressure and admit to PCU for further treatment. His last echocardiogram was 3-4 months ago and showed an ejection fraction of 45% along with diastolic dysfunction. Troponin today is WNL. ED Disposition - Plan for ED Patient: Disposition: Acute Care Hospital [facility] Diagnosis: Hypoxemia, Acute exacerbation of CHF (congestive heart failure), Chest pain, unspecified Referrals: [facility] Doctor,Out of [Primary Care Provider] -
--- NOTE | 2019-01-18 19:19 | ED.DCSUM_ITS ---
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 He was discharged to rehab around 5 or 6 days ago and started getting short of breath afterwards, it has progressively worsened. He states he has had left-sided chest discomfort as well. He cannot remember exactly when it started. He has a history of congestive heart failure and currently is on no diuretic. - Past Medical History (1) Benign hypertension Status: Chronic (2) CAD (coronary artery disease) Status: Chronic Comment: extensive disease multiple stents (3) Carotid artery stenosis Status: Chronic Comment: R CEA (4) Chronic CHF (congestive heart failure) Status: Chronic Comment: ef=25% as of 04/04 (5) DM type 2 (diabetes mellitus, type 2) Status: Chronic (6) Hyperlipidemia Status: Chronic (7) LISSA (obstructive sleep apnea) Status: Chronic (8) Anemia Status: Chronic Past Medical History - Allergies and Home Meds Allergies/Adverse Reactions: Allergies metoclopramide HCl [From Reglan] Adverse Reaction (Verified 01/18/19 19:49) goofy, anxious, elevated BP ondansetron HCl [From Zofran] Adverse Reaction (Verified 01/18/19 19:49) goofy, anxious, elevated BP Hkwvubr-Tni-Jmo Reductase Inhibitor Adverse Reaction (Verified 01/18/19 19:49) rhabdomyolosis Primary Care Physician: [facility] ,Out of [Primary Care Provider] - Surgical History: appendectomy, cataract, cholecystectomy, coronary bypass surgery - 2004 - [place], herniorrhaphy, tonsillectomy, - - Cardiac stent placement ?24 (according to patient), right carotid endarterectomy. Lives: [facility] - rehab Smoking Status: Never smoker - Family History Maternal Family History: Reports: No pertinent history Paternal Family History: Reports: Heart Disease - of an [place] at age 61 Sibling Family History: Reports: No pertinent history Review of Systems General: Reports: Malaise. Denies: Chills, Fever Eyes: Denies: Visual changes - bilaterally, Diplopia ENT: Denies: Rhinorrhea, Sore throat Cardiovascular: Reports: Chest pain - left Respiratory: Reports: Dyspnea, Cough, Dyspnea on exertion, Orthopnea. Denies: Sputum Gastrointestinal: Reports: Nausea. Denies: Abdominal pain, Vomiting, Diarrhea, Melena, Hematochezia Genitourinary: Denies: Dysuria, Hematuria, Frequency Musculoskeletal: Reports: Swelling, Extremity Pain - right hip since surgery Skin: Denies: Rash, Wounds Neurological: Denies: Headache, Weakness, Numbness Physical Exam Vital Signs/Narrative: Vital Signs Temp Pulse Resp BP Pulse Ox 01/18/19 18:39 98.4 F 73 24 H 188/88 H 85 Inital Vital Signs reviewed: Yes General: Well nourished, Well developed, No Acute Distress Head: Normocephalic, Atraumatic Eyes: Perrl, EOMI ENT: Moist mucous membranes, No rhinorrhea Neck: Supple, Nontender, - - +JVD Cardiovascular: Regular rate, Regular rhythm, No murmurs Respiratory: No distress, Chest nontender, Rales - bibasilar, Wheezing - throughout expiration bilat Abdomen: Soft, Nontender, Nondistended, Normal bowel sounds Back: Negative for: CVA tenderness Extremities: Nontender, Edema - 3+ BLE. no signs of cellulitis Skin: Normal color, No rash Neurological: Alert, Oriented x3, Cranial nerves II-XII grossly intact, Normal Strength, Normal Sensation Psychological: Normal affect, Normal Mood Diagnostic/Tx/Re-eval Impressions Chest X-Ray 01/18/19 19:13 IMPRESSION: There is a small right perihilar infiltrate. There is minimal fluid and/or thickening of the right minor fissure. These abnormalities represent new interval findings from the previous study. There is also demonstrated a new small right-sided pleural effusion. There is mild cardiomegaly. Status post sternotomy changes are present. There is a right-sided MediPort with catheter tip superimposed on the atriocaval junction. There are severe degenerative changes of the right shoulder joint. Electronically Signed: Gerardo Villegas MD at 21:19 EDT , Service support , 01/18/19 19:13 Chest 1 View (Portable) [RAD] Stat Laboratory Results 01/18/19 01/18/19 01/18/19 19:00 19:00 19:00 WBC 5.8 RBC 3.58 L Hgb 10.4 L Hct 32.8 L MCV 91.6 MCH 29.1 MCHC 31.7 L RDW 14.6 RDW Differential 48.9 H Plt Count 179 MPV 9.3 Immature Gran % (Auto) 0.200 Neut % (Auto) 72.9 H Lymph % (Auto) 14.1 L [place] % (Auto) 9.9 Eos % (Auto) 2.4 Baso % (Auto) 0.5 Absolute Neuts (auto) 4.2 Absolute Lymphs (auto) 0.81 L Total Counted Not Reportable PT 15.2 H INR 1.2 APTT 43.5 H Sodium 136 Potassium 4.4 Chloride 105 Carbon Dioxide 25.0 Anion Gap 6 BUN 18 Creatinine 1.08 Estim Creat Clear Calc 70.92 Est GFR (MDRD) Af Amer 89 Est GFR (MDRD) Non-Af 74 BUN/Creatinine Ratio 16.7 Glucose 134 H Lactic Acid Calcium 7.9 L Total Bilirubin 0.50 AST 26 ALT 14 L Alkaline Phosphatase 140 H Troponin I 0.017 B-Natriuretic Peptide Total Protein 6.7 Albumin 2.9 L Globulin 3.8 Albumin/Globulin Ratio 0.8 L Urine Color Urine Clarity Urine pH Ur Specific [place] Urine Protein Urine Glucose (UA) Urine Ketones Urine Occult Blood Urine Nitrite Urine Bilirubin Urine Urobilinogen Ur Leukocyte Esterase 01/18/19 01/18/19 01/18/19 19:30 19:30 21:04 WBC RBC Hgb Hct MCV MCH MCHC RDW RDW Differential Plt Count MPV Immature Gran % (Auto) Neut % (Auto) Lymph % (Auto) [place] % (Auto) Eos % (Auto) Baso % (Auto) Absolute Neuts (auto) Absolute Lymphs (auto) Total Counted PT INR APTT Sodium Potassium Chloride Carbon Dioxide Anion Gap BUN Creatinine Estim Creat Clear Calc Est GFR (MDRD) Af Amer Est GFR (MDRD) Non-Af BUN/Creatinine Ratio Glucose Lactic Acid 0.5 Calcium Total Bilirubin AST ALT Alkaline Phosphatase Troponin I B-Natriuretic Peptide 963.2 H Total Protein Albumin Globulin Albumin/Globulin Ratio Urine Color Straw Urine Clarity Clear Urine pH 6.0 Ur Specific [place] 1.010 Urine Protein 30 H Urine Glucose (UA) Normal Urine Ketones Negative Urine Occult Blood 10 H Urine Nitrite Negative Urine Bilirubin Negative Urine Urobilinogen Normal Ur Leukocyte Esterase Negative - Rhythm Strip Rhythm Strip: Sinus Rhythm Rate: 73 Ectopy: None - EKG Initial EKG Interpretation: Sinus Rhythm, No Acute Injury Pattern, RBBB, Inverted T-Waves - anterior Prior: Unchanged - Medical Decision Making Septic workup was ordered initially including blood cultures and lactate, lactate returned normal white blood count is well within normal limits, and the workup is more consistent with an exacerbation of congestive heart failure than infection. He was treated with IV Lasix, nitroglycerin sublingual, and nebulizer treatments. He states his breathing is better and his chest discomfort feels much better. We will place nitroglycerin paste on his chest, continue oxygen treatment for his hypoxemia, watch his high blood pressure and admit to PCU for further treatment. His last echocardiogram was 3-4 months ago and showed an ejection fraction of 45% along with diastolic dysfunction. Troponin today is WNL. ED Disposition - Plan for ED Patient: Disposition: Acute Care Hospital [facility] Diagnosis: Hypoxemia, Acute exacerbation of CHF (congestive heart failure), Chest pain, unspecified Referrals: [facility] Doctor,Out of [Primary Care Provider] -
[2019-01-18 19:33] LABS: Absolute Lymphocyte Count 0.81 X10^3/ul (0.83-4.51); Absolute Neutrophil Count 4.2 X10^3/uL (2.0-7.7); Basophil# 0.03 X10^3/uL; Basophil% 0.5 % (0-1); Eosinophil# 0.14 X10^3/uL; Eosinophils% 2.4 % (0-5); Hematocrit 32.8 % (40-54); Hemoglobin 10.4 g/dl (13.0-16.5); Lymphocyte # 0.81 X10^3/ul (4.0); Lymphocyte % 14.1 % (19-41); Mean Corp Hgb Conc 31.7 g/gl (32-36); Mean Corpuscular Hgb 29.1 pg (27.0-32.0); Mean Corpuscular Volume 91.6 fL (80-94); Mean Platelet Vol. 9.3 fl (6.2-12.0); Monocyte# 0.57 X10^3/uL; Monocyte% 9.9 % (0-10); Neutrophil % 72.9 % (47-70); POSITIVE COUNT NO; POSITIVE DIFFERENTIAL NO; POSITIVE MORPHOLOGY NO; Platelet Count 179 K/mm3 (150-450); RBC Distribution Width CV 14.6 % (11.6-14.6); RBC Distribution Width SD 48.9 fl (35.1-43.9); Red Blood Count 3.58 M/mm3 (4.6-6.2); White Blood Count 5.8 K/mm3 (4.4-11.0)
[2019-01-18] MEDS: Furosemide 40 MG/4 ML Vial IV (19:34)
[2019-01-18] MEDS: proMETHazine 25 MG/ML Syringe 6.25 MG IV (19:34)
[2019-01-18 19:41] LABS: International Normalized Ratio 1.2; Prothrombin Time (Protime)PT. 15.2 SECONDS (11.7-14.9)
[2019-01-18 19:42] LABS: Partial Thromboplast Time 43.5 Seconds (24.1-36.2)
[2019-01-18 19:47] LABS: ALB/GLOB Ratio 0.8 RATIO (0.9-2.4); AST(SGOT) 26 U/L (15-37); Alanine Aminotransfer ALT/SGPT 14 U/L (16-61); Albumin, Serum 2.9 g/dL (3.2-5.0); Alkaline Phosphatase 140 U/L (45-117); Anion Gap 6 (5-15); BUN 18 mg/dL (7-18); BUN/Creat Ratio 16.7 RATIO (10-20); Calcium,Total 7.9 mg/dL (8.5-10.1); Chloride 105 mmol/L (98-107); Creatinine, Serum 1.08 mg/dL (0.70-1.30); EST Glomerular Filtration Rate 74 mL/min (>60); Est Glom Filt Rate - Afr Amer 89 mL/min (>60); Estimated Creatinine Clearance 70.92 ml/min; Globulin 3.8 g/dL (2.2-4.2); Glucose 134 mg/dL (74-106); Potassium 4.4 mmol/L (3.5-5.1); Protein, Total 6.7 g/dL (6.4-8.2); Sodium Level 136 mmol/L (136-145)
[2019-01-18 20:06] LABS: BNP,B-Type NATRIURETIC PEPTIDE 963.2 pg/mL (0-100); Lactic Acid 0.5 mmol/L (0.4-2.0)
[2019-01-18 21:09] LABS: Bacteria 0 SEEN /hpf (None Seen); Mucous, Urine 0 SEEN /hpf (<or=2+); White Blood Cells 0 SEEN /hpf (0-5)
[2019-01-18 21:19] LABS: Color, Urine Straw (Yellow); Glucose, Dipstick Normal (Normal); Ketone-Dipstick Negative (Negative); Leukocyte Esterase-Dipstick Negative /ul (Negative); Nitrite-Dipstick Negative (Negative); Occult Blood-Urine 10 /ul (Negative); Protein-Dipstick 30 mg/dl (Negative); Urine Bilirubin Dipstick Negative (Negative); Urine Clarity Clear (Clear); Urine Urobilinogen Normal (Normal)
[2019-01-18 21:56] LABS: Hyaline Cast 0-5 SEEN /lpf (0-5)
[2019-01-18 21:57] LABS: Red Blood Cells-Urine 0-5 SEEN /hpf (0-5); Squamous Epithelial Cells - UA 0-5 SEEN /hpf (0-5)
--- NOTE | 2019-01-18 23:04 | HP.PCM_ITS ---
Problem List (1) Shortness of breath Status: Acute (2) Wheezing Status: Acute History of Present Illness Date of Admission: 01/18/19 Chief Complaint: Shortness of breath, wheezing The patient is a 63 year old M was seen in the emergency room at [facility] with chief complaint of increasing shortness of breath over the last 3-5 days. [facility] a fall resulting in a subdural hematoma and multiple rib fractures. Patient was initially admitted to the rehab unit at [facility] but within 24 hours of admission decided he wanted to go to a assisted instead-there was some disagreement about his pain medication in the rehab unit. Patient is a poor informant, he does not admit to purulent sputum production, fevers, or chills. Workup in the emergency room included a chest x-ray which showed evidence of congestive heart failure, CBC was remarkable for hemoglobin of 10.4, chemistry profile was remarkable for glucose of 134. Liver profile showed a slightly elevated alkaline phosphatase at 140. Patient's beta natruretic peptide was elevated at 963. Urinalysis was unremarkable. Patient will be admitted to PCU for acute congestive heart failure diastolic in nature. Patient had an echocardiogram done in September 2018 which showed an EF of 45% with evidence of mild pulmonary hypertension. Past Medical History Past Medical History (Chronic Problems): Chronic Problems Hypoxemia (Chronic) LISSA (obstructive sleep apnea) (Chronic) Decubitus ulcer of heel, right, unstageable (Chronic) Cellulitis of right heel (Chronic) Anemia (Chronic) S/P PTCA (percutaneous transluminal coronary angioplasty) (Chronic) Cardiomyopathy (Chronic) 38% gated nuclear EF on 11/03/18 ICD (implantable cardioverter-defibrillator) in place (Chronic) mediport placement (Chronic) Hyperlipidemia (Chronic) DM type 2 (diabetes mellitus, type 2) (Chronic) Chronic CHF (congestive heart failure) (Chronic) ef=25% as of 04/04 Carotid artery stenosis (Chronic) R CEA CAD (coronary artery disease) (Chronic) extensive disease multiple stents Hx of CABG (Chronic) Obesity (Chronic) Benign hypertension (Chronic) Allergies metoclopramide HCl [From Reglan] Adverse Reaction (Verified 01/18/19 19:49) goofy, anxious, elevated BP ondansetron HCl [From Zofran] Adverse Reaction (Verified 01/18/19 19:49) goofy, anxious, elevated BP Buszqma-Ojq-Foh Reductase Inhibitor Adverse Reaction (Verified 01/18/19 19:49) rhabdomyolosis Home Medications: Ambulatory Orders Medication Instructions Recorded Amlodipine [Norvasc] 5 mg PO DAILY 10/13/18 Gabapentin 300 mg PO BID 10/13/18 Hydroxyzine HCl 25 mg PO BID PRN 10/13/18 hydrALAZINE [Apresoline] 25 mg PO BID 10/13/18 Ipratropium/Albuterol Sulfate 3 ml INHALATION Q4H PRN PRN 01/12/19 [Duoneb] Lidocaine [Lidoderm Patch] 1 patch TOPICAL DAILY 01/12/19 Sertraline HCl 100 mg PO DAILY 01/12/19 Tamsulosin HCl [Flomax] 0.4 mg PO DAILY 01/12/19 Carvedilol [Coreg (Beta Ronald)] 25 mg PO BID tablet 01/13/19 Duloxetine Hcl [Cymbalta] 30 mg PO DAILY capsule 01/13/19 Insulin Glargine [Lantus SoloStar 10 units SC QHS pen 01/13/19 Pen] Losartan Potassium [Cozaar] 50 mg PO DAILY tablet 01/13/19 Heparin Injection (Vial) [Heparin 5,000 unit SC TID 01/14/19 Na] Insulin Lispro [Humalog Nilesh unit SQ 4X/DAY 01/14/19 Kwikpen] traMADol [Ultram (G)] 50 mg PO Q8H PRN PRN 01/14/19 Bumetanide [Bumex] 2 mg PO DAILY 01/18/19 Surgical History: appendectomy, cataract, cholecystectomy, coronary bypass surgery - 2005 - [place], herniorrhaphy, tonsillectomy, - - Cardiac stent placement ?24 (according to patient), right carotid endarterectomy. Lives: [facility] - [facility]hab Smoking Status: Never smoker Tobacco Use: Non-smoker Alcohol: None Drugs: None - *Family History Maternal History Items: No pertinent history Paternal History Items: Heart Disease - of an MO at age 61 Sibling History Items: No pertinent history Review of Systems Constitutional: Reports: Weakness, Fatigue. Denies: Anorexia, Chills, Fever, Night Sweats, Malaise, Weight Change Eyes: Denies: Cataracts, Conjunctivae Inflammation, Double vision, Drainage HEENT: Denies: Difficulty Swallowing, Dysphasia, Ear Pain, Eye Pain, Hearing Changes, Nasal bleeding, Nasal Congestion, Post Nasal Drip Cardiovascular: Denies: Chest Pain, Claudication, Chest Pressure, Chest Tightness, Edema, Heaviness, Palpitations Respiratory: Reports: Shortness of Breath, Shortness of breath at rest, Shortness of breath upon exertion. Denies: Cough, Hemoptysis, Pleuritic Pain, Sputum production, Wheezing Gastrointestinal: Denies: Abdominal Pain, Constipation, Diarrhea, Hematemesis, Hematochezia, Nausea, Melena, Vomiting Genitourinary: Denies: Dysuria, Frequency, Hematuria, Hesitancy, Nocturia, Retention, Urgency Musculoskeletal: Reports: Joint Pain - Patient complains of generalized arthritic pains. Denies: Back Pain, Foot Pain, Joint stiffness, Joint swelling, Joint Tenderness Skin: Denies: Dryness, Pruritis, Rash Neurological: Denies: Blurred vision, Double vision, Slurred speech, Difficulty swallowing, Focal weakness, Headaches, Incoordination, Numbness, Tingling Psychiatric: Denies: Anxiety, Depression, Homicidal Ideations, Suicidal Ideations Endocrine: Denies: Change in Body Habitus, Heat/ Cold Intolerance, Polydipsia, Polyuria Hematologic/ Lymphatic: Denies: Adenopathy, Anemia, Easy Bruising, Easy Bleeding, Petechiae, Purpura VTE Information - Inpt Only VTE Present on Admission: No VTE Mechan Device Prophylaxis: None VTE Pharm Prophylaxis ordered?: Yes Patient Problems: Active and Suspected Problems Acute exacerbation of CHF (congestive heart failure) (Acute) Shortness of breath (Acute) Wheezing (Acute) - Physical Exam General: Alert, Oriented x3, Cooperative, No apparent distress, Well developed, Well nourished HEENT: Atraumatic, PERRLA, EOMI, Normocephalic Oral: Moist Mucosa Neck: Supple, No JVD, Negative Carotid Bruits, No Nuchal Rigidity, Trachea Midline, Thyroid Normal Size and Texture Lungs: Normal air movement, No rhonchi, No rales, Wheezes - Patient has expiratory wheezing bilaterally Cardiovascular: Regular rate, Regular Rhythm, Normal S1, Normal S2, No murmurs, No Ectopic Activity, PMI Normal, No rub noted, No Gallop Abdomen: Bowel Sounds Present, Soft, Non Tender, Non-Distended, No hernias noted Extremities: No clubbing, No cyanosis, Capillary Refill Less than 3 Seconds, Edema - Generalized edema is noted over both lower legs-+3 mm Skin: No rashes, No breakdown Neurological: Cranial nerves II-XII grossly intact, Neuro grossly intact, Sensory exam intact to light touch and pain Psych/Mental Status: Normal Affect, Appropriate, Alert and oriented to time, place, person, mood and affect Vital Signs Temp Pulse Resp BP Pulse Ox 98.6 F 69 20 H 158/62 H 99 01/18/19 23:01 01/18/19 23:01 01/18/19 23:01 01/18/19 23:01 01/18/19 23:01 Oxygen Flow Rate (L/min) 4 Oxygen Delivery Method Nasal Cannula Weight: 110.5 kg Body Mass Index (BMI) 41.8 Finger Stick Blood Glucose 42 Laboratory Tests Past 24 Hrs 01/18/19 01/18/19 01/18/19 19:00 19:00 19:00 WBC 5.8 RBC 3.58 L Hgb 10.4 L Hct 32.8 L MCV 91.6 MCH 29.1 MCHC 31.7 L RDW 14.6 RDW Differential 48.9 H Plt Count 179 MPV 9.3 Immature Gran % (Auto) 0.200 Neut % (Auto) 72.9 H Lymph % (Auto) 14.1 L [place] % (Auto) 9.9 Eos % (Auto) 2.4 Baso % (Auto) 0.5 Absolute Neuts (auto) 4.2 Absolute Lymphs (auto) 0.81 L Total Counted Not Reportable PT 15.2 H INR 1.2 APTT 43.5 H Sodium 136 Potassium 4.4 Chloride 105 Carbon Dioxide 25.0 Anion Gap 6 BUN 18 Creatinine 1.08 Estim Creat Clear Calc 70.92 Est GFR (MDRD) Af Amer 89 Est GFR (MDRD) Non-Af 74 BUN/Creatinine Ratio 16.7 Glucose 134 H Lactic Acid Calcium 7.9 L Total Bilirubin 0.50 AST 26 ALT 14 L Alkaline Phosphatase 140 H Troponin I 0.017 B-Natriuretic Peptide Total Protein 6.7 Albumin 2.9 L Globulin 3.8 Albumin/Globulin Ratio 0.8 L Urine Color Urine Clarity Urine pH Ur Specific [place] Urine Protein Urine Glucose (UA) Urine Ketones Urine Occult Blood Urine Nitrite Urine Bilirubin Urine Urobilinogen Ur Leukocyte Esterase Urine RBC Urine WBC Ur Squamous Epith Cells Urine Bacteria Hyaline Casts Urine Mucus 01/18/19 01/18/19 01/18/19 19:30 19:30 21:04 WBC RBC Hgb Hct MCV MCH MCHC RDW RDW Differential Plt Count MPV Immature Gran % (Auto) Neut % (Auto) Lymph % (Auto) [place] % (Auto) Eos % (Auto) Baso % (Auto) Absolute Neuts (auto) Absolute Lymphs (auto) Total Counted PT INR APTT Sodium Potassium Chloride Carbon Dioxide Anion Gap BUN Creatinine Estim Creat Clear Calc Est GFR (MDRD) Af Amer Est GFR (MDRD) Non-Af BUN/Creatinine Ratio Glucose Lactic Acid 0.5 Calcium Total Bilirubin AST ALT Alkaline Phosphatase Troponin I B-Natriuretic Peptide 963.2 H Total Protein Albumin Globulin Albumin/Globulin Ratio Urine Color Straw Urine Clarity Clear Urine pH 6.0 Ur Specific [place] 1.010 Urine Protein 30 H Urine Glucose (UA) Normal Urine Ketones Negative Urine Occult Blood 10 H Urine Nitrite Negative Urine Bilirubin Negative Urine Urobilinogen Normal Ur Leukocyte Esterase Negative Urine RBC 0-5 SEEN Urine WBC 0 SEEN Ur Squamous Epith Cells 0-5 SEEN Urine Bacteria 0 SEEN Hyaline Casts 0-5 SEEN Urine Mucus 0 SEEN Assessment/Plan All Active Problems Debility (Acute) Acute exacerbation of CHF (congestive heart failure) (Acute) Chest pain, unspecified (Resolved) Shortness of breath (Acute) Wheezing (Acute) Acute kidney injury (Resolved) Abnormal cardiac enzyme level (Resolved) Chest pain (Resolved) Shortness of breath (Resolved) hx epidural abscess (Resolved) # 1 acute on chronic diastolic congestive heart failure with intermediate ejection fraction-patient will be admitted to PCU, he will be placed on IV L asix, patient will be monitored #2 chronic hypoxic respiratory failure-patient is currently stable on 4 L via nasal cannula-during the patient's last hospitalization in the rehab unit, he was on 2 L nasal cannula at all times, patient will be monitored, oxygen will be weaned if possible #3 ischemic cardiomyopathy #4 coronary artery disease #5 hyperlipidemia #6 hypertension #7 generalized debility-PT and OT will see the patient #8 type 2 diabetes-blood sugars will be monitored, sliding scale insulin will be used Code Visit Inpatient E&M: 60079 Init Hosp L3
[2019-01-18] MEDS: proMETHazine 25 MG/ML Syringe 12.5 MG IV (23:58)
[2019-01-19] VITALS (18 sets, daily range): BP systolic 134–172; BP diastolic 70–84; PULSE 62–82; RESP 16–20; TEMP 36.6–37.4; O2SAT 93–97
[2019-01-19] MEDS: 0.9% NaCl Peripheral Flush Adult/Peds IV ×13 (00:03→22:14)
[2019-01-19 00:15] LABS: Bedside Glucose 130 mg/dL (70-110)
[2019-01-19] MEDS: Ipratropium/Albuterol Sulfate 3 ML AMPUL.NEB INHALATION ×4 (00:28→20:30)
[2019-01-19] MEDS: Furosemide 40 MG/4 ML Vial IV ×3 (05:27→22:08)
[2019-01-19 05:56] LABS: Absolute Lymphocyte Count 0.91 X10^3/ul (0.83-4.51); Absolute Neutrophil Count 3.9 X10^3/uL (2.0-7.7); Basophil# 0.03 X10^3/uL; Basophil% 0.5 % (0-1); Eosinophil# 0.07 X10^3/uL; Eosinophils% 1.3 % (0-5); Hematocrit 32.7 % (40-54); Hemoglobin 10.5 g/dl (13.0-16.5); Lymphocyte # 0.91 X10^3/ul (4.0); Lymphocyte % 16.5 % (19-41); Mean Corp Hgb Conc 32.1 g/gl (32-36); Mean Corpuscular Volume 90.3 fL (80-94); Mean Platelet Vol. 9.4 fl (6.2-12.0); Monocyte% 10.9 % (0-10); Neutrophil # 3.88 X10^3/uL (2.7-7.7); Neutrophil % 70.6 % (47-70); Platelet Count 198 K/mm3 (150-450); RBC Distribution Width CV 14.2 % (11.6-14.6); RBC Distribution Width SD 45.7 fl (35.1-43.9); Red Blood Count 3.62 M/mm3 (4.6-6.2); White Blood Count 5.5 K/mm3 (4.4-11.0)
[2019-01-19 06:11] LABS: POSITIVE COUNT NO; POSITIVE DIFFERENTIAL NO; POSITIVE MORPHOLOGY NO
[2019-01-19 06:30] LABS: Anion Gap 6 (5-15); BUN 17 mg/dL (7-18); BUN/Creat Ratio 16.7 RATIO (10-20); Chloride 103 mmol/L (98-107); Creatinine, Serum 1.02 mg/dL (0.70-1.30); EST Glomerular Filtration Rate 79 mL/min (>60); Est Glom Filt Rate - Afr Amer 95 mL/min (>60); Estimated Creatinine Clearance 62.88 ml/min; Glucose 129 mg/dL (74-106); Potassium 4.2 mmol/L (3.5-5.1); Sodium Level 135 mmol/L (136-145)
[2019-01-19] MEDS: amLODIPine 10 MG Tablet PO (06:56)
[2019-01-19] MEDS: proMETHazine 25 MG/ML Syringe 12.5 MG IV ×2 (07:02→22:09)
[2019-01-19 07:35] LABS: Bedside Glucose 124 mg/dL (70-110)
--- NOTE | 2019-01-19 08:42 | PCM.PN.HOSP ---
Patient Problems: Active and Suspected Problems Acute exacerbation of CHF (congestive heart failure) (Acute) Shortness of breath (Acute) Wheezing (Acute) Subjective: Still feeling fairly short of breath but denies any chest pain or syncope. Vitals/I&O's: Vital Signs Temp Pulse Resp BP Pulse Ox 97.8 F 77 20 H 163/84 H 97 01/19/19 08:14 01/19/19 08:14 01/19/19 08:14 01/19/19 08:14 01/19/19 08:14 Oxygen Flow Rate (L/min) 4 Oxygen Delivery Method Room Air Weight: 240 lb 15.444 oz Body Mass Index (BMI) 41.8 Finger Stick Blood Glucose 42 Intake and Output for Last 24 Hours 01/17/19 01/18/19 01/19/19 23:59 23:59 23:59 Intake Total 100 / 100 Output Total 1350 / 1350 Balance -1250 / -1250 General: Alert, Oriented x3, Cooperative, No apparent distress HEENT: Atraumatic, PERRLA, EOMI, Normocephalic Oral: Dry Mucosa Neck: Supple, No JVD, Trachea Midline Lungs: Diminished, Rales, Rhonchi, Wheezes Cardiovascular: Regular rate, Regular Rhythm, Normal S1, Normal S2, No murmurs Abdomen: Soft, Non Tender, Non-Distended, No Hepato-splenomegaly Extremities: Capillary Refill Less than 3 Seconds, Edema - 1-2+ pitting Skin: No rashes, No breakdown Neurological: Neuro grossly intact, Sensory exam intact to light touch and pain Psych/Mental Status: Normal Affect, Appropriate Laboratory Results 01/18/19 19:00: WBC 5.8, RBC 3.58 L, Hgb 10.4 L, Hct 32.8 L, MCV 91.6, MCH 29.1, MCHC 31.7 L, RDW 14.6, RDW Differential 48.9 H, Plt Count 179, MPV 9.3, Immature Gran % (Auto) 0.200, Neut % (Auto) 72.9 H, Lymph % (Auto) 14.1 L, [place] % (Auto) 9.9, Eos % (Auto) 2.4, Baso % (Auto) 0.5, Absolute Neuts (auto) 4.2, Absolute Lymphs (auto) 0.81 L, Total Counted Not Reportable 01/18/19 19:00: PT 15.2 H, INR 1.2, APTT 43.5 H 01/18/19 19:00: Sodium 136, Potassium 4.4, Chloride 105, Carbon Dioxide 25.0, Anion Gap 6, BUN 18, Creatinine 1.08, Estim Creat Clear Calc 70.92, Est GFR (MDRD) Af Amer 89, Est GFR (MDRD) Non-Af 74, BUN/Creatinine Ratio 16.7, Glucose 134 H, Calcium 7.9 L, Total Bilirubin 0.50, AST 26, ALT 14 L, Alkaline Phosphatase 140 H, Troponin I 0.017, Total Protein 6.7, Albumin 2.9 L, Globulin 3.8, Albumin/Globulin Ratio 0.8 L 01/18/19 19:30: Lactic Acid 0.5 01/18/19 19:30: B-Natriuretic Peptide 963.2 H 01/18/19 21:04: Urine Color Straw, Urine Clarity Clear, Urine pH 6.0, Ur Specific [place] 1.010, Urine Protein 30 H, Urine Glucose (UA) Normal, Urine Ketones Negative, Urine Occult Blood 10 H, Urine Nitrite Negative, Urine Bilirubin Negative, Urine Urobilinogen Normal, Ur Leukocyte Esterase Negative, Urine RBC 0-5 SEEN, Urine WBC 0 SEEN, Ur Squamous Epith Cells 0-5 SEEN, Urine Bacteria 0 SEEN, Hyaline Casts 0-5 SEEN, Urine Mucus 0 SEEN 01/18/19 23:14: POC Glucose 130 H 01/19/19 05:35: WBC 5.5, RBC 3.62 L, Hgb 10.5 L, Hct 32.7 L, MCV 90.3, MCH 29.0, MCHC 32.1, RDW 14.2, RDW Differential 45.7 H, Plt Count 198, MPV 9.4, Immature Gran % (Auto) 0.200, Neut % (Auto) 70.6 H, Lymph % (Auto) 16.5 L, [place] % (Auto) 10.9 H, Eos % (Auto) 1.3, Baso % (Auto) 0.5, Absolute Neuts (auto) 3.9, Absolute Lymphs (auto) 0.91, Total Counted Not Reportable 01/19/19 05:35: Sodium 135 L, Potassium 4.2, Chloride 103, Carbon Dioxide 26.0, Anion Gap 6, BUN 17, Creatinine 1.02, Estim Creat Clear Calc 62.88, Est GFR (MDRD) Af Amer 95, Est GFR (MDRD) Non-Af 79, BUN/Creatinine Ratio 16.7, Glucose 129 H, Calcium 8.0 L 01/19/19 06:58: POC Glucose 124 H Current Medications Acetaminophen (Tylenol) 650 mg PO Q6H PRN PRN PRN Reason: Mild Pain (1-3)/Temp > 100.7 F Albuterol/Ipratropium (Duoneb) 3 ml INHALATION Q4H PRN PRN PRN Reason: SOB/Wheezing Last Admin: 01/19/19 00:28 Dose: 3 ml Amlodipine Besylate (Norvasc) 10 mg PO DAILY [facility] Last Admin: 01/19/19 06:56 Dose: 10 mg Carvedilol (Coreg) 25 mg PO BID [facility] Duloxetine HCl (Cymbalta) 30 mg PO DAILY [facility] Enoxaparin Sodium (Lovenox) 40 mg SC DAILY@1000 [facility] Furosemide (Lasix) 40 mg IV Q8 [facility] Last Admin: 01/19/19 05:27 Dose: 40 mg Gabapentin (Neurontin) 300 mg PO BID [facility] Hydralazine HCl (Apresoline) 25 mg PO BID [facility] Insulin Glargine (Lantus (Bkc)) 10 units SC QHS [facility] Insulin Human Lispro (Humalog Kwikpen (Bkc)) 0 unit SC ACHS [facility]; Protocol Lidocaine (Lidoderm Patch) 1 patch TOPICAL DAILY [facility]; Protocol Losartan Potassium (Cozaar) 50 mg PO DAILY [facility] Magnesium Hydroxide (Milk Of Magnesia) 30 ml PO DAILY PRN PRN Reason: Constipation Nutritional Formula (Lactose Free) (Glucerna Shake) 120 ml PO 4X/DAY [facility] Promethazine HCl (Phenergan) 12.5 mg IV Q4H PRN PRN PRN Reason: NAUSEA/VOMITING Last Admin: 01/19/19 07:02 Dose: 12.5 mg Sertraline HCl (Zoloft) 100 mg PO DAILY [facility] Sodium Chloride () 5 - 15 ml IV UD PRN PRN Reason: SALINE FLUSH Last Admin: 01/19/19 07:03 Dose: 10 ml Tamsulosin HCl (Flomax) 0.4 mg PO DAILY [facility] Tramadol HCl (Ultram) 50 mg PO Q8H PRN PRN PRN Reason: PAIN Medical Necessity - Tobacco Use Smoking Status: Never smoker Tobacco Use: Non-smoker Assessment/Plan All Active Problems Debility (Acute) Acute exacerbation of CHF (congestive heart failure) (Acute) Chest pain, unspecified (Resolved) Shortness of breath (Acute) Wheezing (Acute) Acute kidney injury (Resolved) Abnormal cardiac enzyme level (Resolved) Chest pain (Resolved) Shortness of breath (Resolved) hx epidural abscess (Resolved) 1. Acute on chronic diastolic heart failure/chronic hypoxic respiratory failure or/CAD/HTN/HLD -We will continue with IV Lasix, had a recent stress test as well as a recent echo that demonstrated an EF of 45% -He wears chronic oxygen at 2 L and is now on 4 L nasal cannula, will attempt to wean. -He does say that he has a slight history of smoking and I am concerned given his physical exam findings wheezing that there also could be a superimposed COPD therefore will monitor throughout the day and if there is no improvement by tomorrow we will initiate on steroids -In the meantime continue with DuoNeb -Continue with Coreg, hydralazine, Norvasc, losartan 2. IDDM 2 -We will continue with his home insulin regimen scale coverage -BG stable at 129 3. Depression -Stable -Continue with Cymbalta, hydroxyzine and Zoloft 4. BPH -Stable -Continue with Flomax DVT: Lovenox Code Visit Inpatient E&M: 98552 Subs Hosp L2
--- NOTE | 2019-01-19 08:47 | PN_ITS ---
Patient Problems: Active and Suspected Problems Acute exacerbation of CHF (congestive heart failure) (Acute) Shortness of breath (Acute) Wheezing (Acute) Subjective: Still feeling fairly short of breath but denies any chest pain or syncope. Vitals/I&O's: Vital Signs Temp Pulse Resp BP Pulse Ox 97.8 F 77 20 H 163/84 H 97 01/19/19 08:14 01/19/19 08:14 01/19/19 08:14 01/19/19 08:14 01/19/19 08:14 Oxygen Flow Rate (L/min) 4 Oxygen Delivery Method Room Air Weight: 240 lb 15.444 oz Body Mass Index (BMI) 41.8 Finger Stick Blood Glucose 42 Intake and Output for Last 24 Hours 01/17/19 01/18/19 01/19/19 23:59 23:59 23:59 Intake Total 100 / 100 Output Total 1350 / 1350 Balance -1250 / -1250 General: Alert, Oriented x3, Cooperative, No apparent distress HEENT: Atraumatic, PERRLA, EOMI, Normocephalic Oral: Dry Mucosa Neck: Supple, No JVD, Trachea Midline Lungs: Diminished, Rales, Rhonchi, Wheezes Cardiovascular: Regular rate, Regular Rhythm, Normal S1, Normal S2, No murmurs Abdomen: Soft, Non Tender, Non-Distended, No Hepato-splenomegaly Extremities: Capillary Refill Less than 3 Seconds, Edema - 1-2+ pitting Skin: No rashes, No breakdown Neurological: Neuro grossly intact, Sensory exam intact to light touch and pain Psych/Mental Status: Normal Affect, Appropriate Laboratory Results 01/18/19 19:00: WBC 5.8, RBC 3.58 L, Hgb 10.4 L, Hct 32.8 L, MCV 91.6, MCH 29.1, MCHC 31.7 L, RDW 14.6, RDW Differential 48.9 H, Plt Count 179, MPV 9.3, Immature Gran % (Auto) 0.200, Neut % (Auto) 72.9 H, Lymph % (Auto) 14.1 L, [place] % (Auto) 9.9, Eos % (Auto) 2.4, Baso % (Auto) 0.5, Absolute Neuts (auto) 4.2, Absolute Lymphs (auto) 0.81 L, Total Counted Not Reportable 01/18/19 19:00: PT 15.2 H, INR 1.2, APTT 43.5 H 01/18/19 19:00: Sodium 136, Potassium 4.4, Chloride 105, Carbon Dioxide 25.0, Anion Gap 6, BUN 18, Creatinine 1.08, Estim Creat Clear Calc 70.92, Est GFR (MDRD) Af Amer 89, Est GFR (MDRD) Non-Af 74, BUN/Creatinine Ratio 16.7, Glucose 134 H, Calcium 7.9 L, Total Bilirubin 0.50, AST 26, ALT 14 L, Alkaline Phosphatase 140 H, Troponin I 0.017, Total Protein 6.7, Albumin 2.9 L, Globulin 3.8, Albumin/Globulin Ratio 0.8 L 01/18/19 19:30: Lactic Acid 0.5 01/18/19 19:30: B-Natriuretic Peptide 963.2 H 01/18/19 21:04: Urine Color Straw, Urine Clarity Clear, Urine pH 6.0, Ur Specific [place] 1.010, Urine Protein 30 H, Urine Glucose (UA) Normal, Urine Ketones Negative, Urine Occult Blood 10 H, Urine Nitrite Negative, Urine Bilirubin Negative, Urine Urobilinogen Normal, Ur Leukocyte Esterase Negative, Urine RBC 0-5 SEEN, Urine WBC 0 SEEN, Ur Squamous Epith Cells 0-5 SEEN, Urine Bacteria 0 SEEN, Hyaline Casts 0-5 SEEN, Urine Mucus 0 SEEN 01/18/19 23:14: POC Glucose 130 H 01/19/19 05:35: WBC 5.5, RBC 3.62 L, Hgb 10.5 L, Hct 32.7 L, MCV 90.3, MCH 29.0, MCHC 32.1, RDW 14.2, RDW Differential 45.7 H, Plt Count 198, MPV 9.4, Immature Gran % (Auto) 0.200, Neut % (Auto) 70.6 H, Lymph % (Auto) 16.5 L, [place] % (Auto) 10.9 H, Eos % (Auto) 1.3, Baso % (Auto) 0.5, Absolute Neuts (auto) 3.9, Absolute Lymphs (auto) 0.91, Total Counted Not Reportable 01/19/19 05:35: Sodium 135 L, Potassium 4.2, Chloride 103, Carbon Dioxide 26.0, Anion Gap 6, BUN 17, Creatinine 1.02, Estim Creat Clear Calc 62.88, Est GFR (MDRD) Af Amer 95, Est GFR (MDRD) Non-Af 79, BUN/Creatinine Ratio 16.7, Glucose 129 H, Calcium 8.0 L 01/19/19 06:58: POC Glucose 124 H Current Medications Acetaminophen (Tylenol) 650 mg PO Q6H PRN PRN PRN Reason: Mild Pain (1-3)/Temp > 100.7 F Albuterol/Ipratropium (Duoneb) 3 ml INHALATION Q4H PRN PRN PRN Reason: SOB/Wheezing Last Admin: 01/19/19 00:28 Dose: 3 ml Amlodipine Besylate (Norvasc) 10 mg PO DAILY [facility] Last Admin: 01/19/19 06:56 Dose: 10 mg Carvedilol (Coreg) 25 mg PO BID [facility] Duloxetine HCl (Cymbalta) 30 mg PO DAILY [facility] Enoxaparin Sodium (Lovenox) 40 mg SC DAILY@1000 [facility] Furosemide (Lasix) 40 mg IV Q8 [facility] Last Admin: 01/19/19 05:27 Dose: 40 mg Gabapentin (Neurontin) 300 mg PO BID [facility] Hydralazine HCl (Apresoline) 25 mg PO BID [facility] Insulin Glargine (Lantus (Bkc)) 10 units SC QHS [facility] Insulin Human Lispro (Humalog Kwikpen (Bkc)) 0 unit SC ACHS [facility]; Protocol Lidocaine (Lidoderm Patch) 1 patch TOPICAL DAILY [facility]; Protocol Losartan Potassium (Cozaar) 50 mg PO DAILY [facility] Magnesium Hydroxide (Milk Of Magnesia) 30 ml PO DAILY PRN PRN Reason: Constipation Nutritional Formula (Lactose Free) (Glucerna Shake) 120 ml PO 4X/DAY [facility] Promethazine HCl (Phenergan) 12.5 mg IV Q4H PRN PRN PRN Reason: NAUSEA/VOMITING Last Admin: 01/19/19 07:02 Dose: 12.5 mg Sertraline HCl (Zoloft) 100 mg PO DAILY [facility] Sodium Chloride () 5 - 15 ml IV UD PRN PRN Reason: SALINE FLUSH Last Admin: 01/19/19 07:03 Dose: 10 ml Tamsulosin HCl (Flomax) 0.4 mg PO DAILY [facility] Tramadol HCl (Ultram) 50 mg PO Q8H PRN PRN PRN Reason: PAIN Medical Necessity - Tobacco Use Smoking Status: Never smoker Tobacco Use: Non-smoker Assessment/Plan All Active Problems Debility (Acute) Acute exacerbation of CHF (congestive heart failure) (Acute) Chest pain, unspecified (Resolved) Shortness of breath (Acute) Wheezing (Acute) Acute kidney injury (Resolved) Abnormal cardiac enzyme level (Resolved) Chest pain (Resolved) Shortness of breath (Resolved) hx epidural abscess (Resolved) 1. Acute on chronic diastolic heart failure/chronic hypoxic respiratory failure or/CAD/HTN/HLD -We will continue with IV Lasix, had a recent stress test as well as a recent echo that demonstrated an EF of 45% -He wears chronic oxygen at 2 L and is now on 4 L nasal cannula, will attempt to wean. -He does say that he has a slight history of smoking and I am concerned given his physical exam findings wheezing that there also could be a superimposed COPD therefore will monitor throughout the day and if there is no improvement by tomorrow we will initiate on steroids -In the meantime continue with DuoNeb -Continue with Coreg, hydralazine, Norvasc, losartan 2. IDDM 2 -We will continue with his home insulin regimen scale coverage -BG stable at 129 3. Depression -Stable -Continue with Cymbalta, hydroxyzine and Zoloft 4. BPH -Stable -Continue with Flomax DVT: Lovenox Code Visit Inpatient E&M: 20341 Subs Hosp L2
[2019-01-19] MEDS: hydrALAZINE 25 MG Tablet PO ×2 (08:49→22:08)
[2019-01-19] MEDS: Carvedilol 25 MG Tablet PO ×2 (08:50→22:08)
[2019-01-19] MEDS: Tamsulosin HCl 0.4 MG Capsule PO (08:50)
[2019-01-19] MEDS: Losartan Potassium 50 MG Tablet PO (08:50)
[2019-01-19] MEDS: DULoxetine Hcl 30 MG Capsule PO (08:50)
[2019-01-19] MEDS: Gabapentin 300 MG Capsule PO ×2 (08:51→22:08)
[2019-01-19] MEDS: Sertraline 100 MG Tablet PO (08:51)
[2019-01-19] MEDS: Enoxaparin 40 MG/0.4 ML Syringe SC (08:51)
[2019-01-19 11:31] LABS: Bedside Glucose 119 mg/dL (70-110)
--- NOTE | 2019-01-19 14:16 | CASEMGMT ---
YOLANDA faxed updates to [place] for patient. YOLANDA will confirm with patient that his plan is to return to [place] at d/c. Letty MOSCOSO MSW
[2019-01-19] MEDS: traMADol 50 MG Tablet PO (15:15)
[2019-01-19 16:45] LABS: Bedside Glucose 154 mg/dL (70-110)
[2019-01-19] MEDS: MELATONIN 3 MG TABLET PO (22:25)
[2019-01-19 22:26] LABS: Bedside Glucose 113 mg/dL (70-110)
--- NOTE | 2019-01-19 23:25 | NURSING ---
Called to pt. room by PHYSICIAN NON INVASIVE CARDIOLOGIST. Pt. feels his blood sugar is low and is requesting juice. BG check= 131. Pt. not diaphoretic. Stated he felt it was low. Gave pt. juice per his request.
[2019-01-19 23:36] LABS: Bedside Glucose 131 mg/dL (70-110)
[2019-01-20] VITALS (15 sets, daily range): BP systolic 122–152; BP diastolic 62–76; PULSE 63–83; RESP 16–18; TEMP 37.2–37.4; O2SAT 86–96
[2019-01-20] MEDS: Ipratropium/Albuterol Sulfate 3 ML AMPUL.NEB INHALATION ×2 (06:00→21:47)
[2019-01-20] MEDS: Furosemide 40 MG/4 ML Vial IV ×3 (06:57→22:01)
[2019-01-20] MEDS: 0.9% NaCl Peripheral Flush Adult/Peds IV ×2 (06:59→20:34)
[2019-01-20 07:20] LABS: Bedside Glucose 106 mg/dL (70-110)
[2019-01-20] MEDS: predniSONE 20 MG Tablet 40 MG PO (09:10)
[2019-01-20] MEDS: hydrALAZINE 25 MG Tablet PO ×2 (09:11→22:01)
[2019-01-20] MEDS: Losartan Potassium 50 MG Tablet PO (09:11)
[2019-01-20] MEDS: Carvedilol 25 MG Tablet PO ×2 (09:11→22:01)
[2019-01-20] MEDS: Tamsulosin HCl 0.4 MG Capsule PO (09:12)
[2019-01-20] MEDS: DULoxetine Hcl 30 MG Capsule PO (09:12)
[2019-01-20] MEDS: Enoxaparin 40 MG/0.4 ML Syringe SC (09:12)
[2019-01-20] MEDS: Sertraline 100 MG Tablet PO (09:13)
[2019-01-20] MEDS: amLODIPine 10 MG Tablet PO (09:13)
[2019-01-20] MEDS: Gabapentin 300 MG Capsule PO ×2 (09:13→22:01)
--- NOTE | 2019-01-20 10:21 | PCM.PN.HOSP ---
Patient Problems: Active and Suspected Problems Acute exacerbation of CHF (congestive heart failure) (Acute) Shortness of breath (Acute) Wheezing (Acute) Subjective: No issues overnight, says that he is feeling better and breathing a little bit easier though he is noticing wheezing. Vitals/I&O's: Vital Signs Temp Pulse Resp BP Pulse Ox 99.0 F 65 18 143/62 H 96 01/20/19 07:42 01/20/19 09:11 01/20/19 07:42 01/20/19 07:42 01/20/19 07:42 Oxygen Flow Rate (L/min) 3 Oxygen Delivery Method Nasal Cannula Weight: 235 lb 0.204 oz Body Mass Index (BMI) 41.8 Finger Stick Blood Glucose 42 Intake and Output for Last 24 Hours 01/18/19 01/19/19 01/20/19 23:59 23:59 23:59 Intake Total 580 / 580 0 / 0 Output Total 4425 / 4425 0 / 0 Balance -3845 / -3845 0 / 0 General: Alert, Oriented x3, Cooperative, No apparent distress HEENT: Atraumatic, PERRLA, EOMI, Normocephalic Oral: Dry Mucosa Neck: Supple, No JVD, Trachea Midline Lungs: Diminished, Rales, Rhonchi, Wheezes Cardiovascular: Regular rate, Regular Rhythm, Normal S1, Normal S2, No murmurs Abdomen: Soft, Non Tender, Non-Distended, No Hepato-splenomegaly Extremities: Capillary Refill Less than 3 Seconds, Edema - 1-2+ pitting Skin: No rashes, No breakdown Neurological: Neuro grossly intact, Sensory exam intact to light touch and pain Psych/Mental Status: Normal Affect, Appropriate Microbiology Past 72 Hours 01/18/19 21:04 Urine, Clean Catch Urine Culture - Final Mixed Gram Pos & Gram Neg Org Laboratory Results 01/19/19 11:27: POC Glucose 119 H 01/19/19 16:23: POC Glucose 154 H 01/19/19 22:17: POC Glucose 113 H 01/19/19 23:30: POC Glucose 131 H 01/20/19 06:55: POC Glucose 106 Current Medications Acetaminophen (Tylenol) 650 mg PO Q6H PRN PRN PRN Reason: Mild Pain (1-3)/Temp > 100.7 F Albuterol/Ipratropium (Duoneb) 3 ml INHALATION Q4H PRN PRN PRN Reason: SOB/Wheezing Last Admin: 01/20/19 06:00 Dose: 3 ml Amlodipine Besylate (Norvasc) 10 mg PO DAILY [facility] Last Admin: 01/20/19 09:13 Dose: 10 mg Carvedilol (Coreg) 25 mg PO BID [facility] Last Admin: 01/20/19 09:11 Dose: 25 mg Duloxetine HCl (Cymbalta) 30 mg PO DAILY [facility] Last Admin: 01/20/19 09:12 Dose: 30 mg Enoxaparin Sodium (Lovenox) 40 mg SC DAILY@1000 [facility] Last Admin: 01/20/19 09:12 Dose: 40 mg Furosemide (Lasix) 40 mg IV Q8 [facility] Last Admin: 01/20/19 06:57 Dose: 40 mg Gabapentin (Neurontin) 300 mg PO BID [facility] Last Admin: 01/20/19 09:13 Dose: 300 mg Hydralazine HCl (Apresoline) 25 mg PO BID [facility] Last Admin: 01/20/19 09:11 Dose: 25 mg Insulin Glargine (Lantus (Bkc)) 10 units SC QHS [facility] Last Admin: 01/19/19 22:19 Dose: Not Given Insulin Human Lispro (Humalog Kwikpen (Bkc)) 0 unit SC [facility]; Protocol Last Admin: 01/20/19 06:57 Dose: Not Given Lidocaine (Lidoderm Patch) 1 patch TOPICAL DAILY [facility]; Protocol Last Admin: 01/20/19 09:12 Dose: Not Given Losartan Potassium (Cozaar) 50 mg PO DAILY [facility] Last Admin: 01/20/19 09:11 Dose: 50 mg Magnesium Hydroxide (Milk Of Magnesia) 30 ml PO DAILY PRN PRN Reason: Constipation Melatonin (Melatonin) 3 mg PO QHS [facility] Last Admin: 01/19/19 22:25 Dose: 3 mg Prednisone () 40 mg PO DAILY@0800 [facility] Last Admin: 01/20/19 09:10 Dose: 40 mg Promethazine HCl (Phenergan) 12.5 mg IV Q4H PRN PRN PRN Reason: NAUSEA/VOMITING Last Admin: 01/19/19 22:09 Dose: 12.5 mg Sertraline HCl (Zoloft) 100 mg PO DAILY [facility] Last Admin: 04/02/19 09:13 Dose: 100 mg Sodium Chloride () 5 - 15 ml IV UD PRN PRN Reason: SALINE FLUSH Last Admin: 01/20/19 06:59 Dose: 10 ml Tamsulosin HCl (Flomax) 0.4 mg PO DAILY [facility] Last Admin: 01/20/19 09:12 Dose: 0.4 mg Tramadol HCl (Ultram) 50 mg PO Q8H PRN PRN PRN Reason: PAIN Last Admin: 01/19/19 15:15 Dose: 50 mg Medical Necessity - Tobacco Use Smoking Status: Never smoker Tobacco Use: Non-smoker Assessment/Plan All Active Problems Debility (Acute) Acute exacerbation of CHF (congestive heart failure) (Acute) Chest pain, unspecified (Resolved) Shortness of breath (Acute) Wheezing (Acute) Acute kidney injury (Resolved) Abnormal cardiac enzyme level (Resolved) Chest pain (Resolved) Shortness of breath (Resolved) hx epidural abscess (Resolved) 1. Acute on chronic diastolic heart failure/chronic hypoxic respiratory failure or/CAD/HTN/HLD -We will continue with IV Lasix, had a recent stress test as well as a recent echo that demonstrated an EF of 45% -He wears chronic oxygen at 2 L and is now on 4 L nasal cannula, will attempt to wean. -Him on oral steroids considering he has continued wheezing -In the meantime continue with DuoNeb -Continue with Coreg, hydralazine, Norvasc, losartan 2. IDDM 2 -We will continue with his home insulin regimen scale coverage -BG stable at 129 3. Depression -Stable -Continue with Cymbalta, hydroxyzine and Zoloft 4. BPH -Stable -Continue with Flomax DVT: Lovenox Code Visit Inpatient E&M: 12158 Subs Hosp L2
[2019-01-20 11:16] LABS: Bedside Glucose 136 mg/dL (70-110)
[2019-01-20] MEDS: proMETHazine 25 MG/ML Syringe 12.5 MG IV ×2 (14:45→20:33)
[2019-01-20] MEDS: Insulin Lispro 100 UNIT/ML INSULN.PEN SC ×2 (16:15→22:04)
[2019-01-20 16:26] LABS: Bedside Glucose 210 mg/dL (70-110)
[2019-01-20] MEDS: MELATONIN 3 MG TABLET PO (22:01)
[2019-01-20 22:16] LABS: Bedside Glucose 201 mg/dL (70-110)
[2019-01-21] VITALS (15 sets, daily range): BP systolic 113–164; BP diastolic 53–76; PULSE 62–81; RESP 16–20; TEMP 36.6–37.7; O2SAT 93–96
[2019-01-21] MEDS: 0.9% NaCl Peripheral Flush Adult/Peds IV ×6 (00:41→20:59)
[2019-01-21] MEDS: proMETHazine 25 MG/ML Syringe 12.5 MG IV ×3 (00:41→20:51)
[2019-01-21] MEDS: Furosemide 40 MG/4 ML Vial IV ×3 (05:48→20:56)
[2019-01-21 06:42] LABS: Absolute Lymphocyte Count 1.03 X10^3/ul (0.83-4.51); Absolute Neutrophil Count 3.1 X10^3/uL (2.0-7.7); Basophil# 0.01 X10^3/uL; Basophil% 0.2 % (0-1); Eosinophil# 0.01 X10^3/uL; Eosinophils% 0.2 % (0-5); Hematocrit 29.2 % (40-54); Hemoglobin 9.5 g/dl (13.0-16.5); Lymphocyte # 1.03 X10^3/ul (4.0); Lymphocyte % 21.6 % (19-41); Mean Corp Hgb Conc 32.5 g/gl (32-36); Mean Corpuscular Hgb 29.1 pg (27.0-32.0); Mean Corpuscular Volume 89.3 fL (80-94); Mean Platelet Vol. 9.4 fl (6.2-12.0); Monocyte# 0.61 X10^3/uL; Monocyte% 12.8 % (0-10); Neutrophil % 65.2 % (47-70); Platelet Count 151 K/mm3 (150-450); RBC Distribution Width CV 14.4 % (11.6-14.6); RBC Distribution Width SD 47.2 fl (35.1-43.9); Red Blood Count 3.27 M/mm3 (4.6-6.2); White Blood Count 4.8 K/mm3 (4.4-11.0)
[2019-01-21 06:44] LABS: POSITIVE COUNT NO; POSITIVE DIFFERENTIAL NO; POSITIVE MORPHOLOGY NO
[2019-01-21 06:57] LABS: Anion Gap 4 (5-15); BUN 18 mg/dL (7-18); BUN/Creat Ratio 17.3 RATIO (10-20); Calcium,Total 7.6 mg/dL (8.5-10.1); Chloride 102 mmol/L (98-107); Creatinine, Serum 1.04 mg/dL (0.70-1.30); EST Glomerular Filtration Rate 77 mL/min (>60); Est Glom Filt Rate - Afr Amer 93 mL/min (>60); Estimated Creatinine Clearance 61.67 ml/min; Glucose 146 mg/dL (74-106); Potassium 3.7 mmol/L (3.5-5.1); Sodium Level 137 mmol/L (136-145)
[2019-01-21 07:05] LABS: Bedside Glucose 147 mg/dL (70-110)
[2019-01-21] MEDS: predniSONE 20 MG Tablet 40 MG PO (08:47)
[2019-01-21] MEDS: Sertraline 100 MG Tablet PO (08:48)
[2019-01-21] MEDS: DULoxetine Hcl 30 MG Capsule PO (08:48)
[2019-01-21] MEDS: amLODIPine 10 MG Tablet PO (08:48)
[2019-01-21] MEDS: hydrALAZINE 25 MG Tablet PO ×2 (08:48→21:03)
[2019-01-21] MEDS: Gabapentin 300 MG Capsule PO ×2 (08:48→20:58)
[2019-01-21] MEDS: Carvedilol 25 MG Tablet PO ×2 (08:48→21:03)
[2019-01-21] MEDS: Losartan Potassium 50 MG Tablet PO (08:48)
[2019-01-21] MEDS: Enoxaparin 40 MG/0.4 ML Syringe SC (08:49)
[2019-01-21] MEDS: Tamsulosin HCl 0.4 MG Capsule PO (08:49)
--- NOTE | 2019-01-21 11:23 | CASEMGMT ---
Physician said patient will probably be ready for discharge tomorrow. YOLANDA called Jenni at [facility] and let her know. YOLANDA also faxed them updates. Letty MOSCOSO MSW
--- NOTE | 2019-01-21 11:34 | PCM.PN.HOSP ---
Patient Problems: Active and Suspected Problems Acute exacerbation of CHF (congestive heart failure) (Acute) Shortness of breath (Acute) Wheezing (Acute) Subjective: Doing well, states that he is breathing better. He would like to stay another day to see if he can get off of the oxygen. Vitals/I&O's: Vital Signs Temp Pulse Resp BP Pulse Ox 98.2 F 71 18 113/53 L 95 01/21/19 05:45 01/21/19 08:48 01/21/19 05:45 01/21/19 05:45 01/21/19 08:00 Oxygen Flow Rate (L/min) 2 Oxygen Delivery Method Nasal Cannula Weight: 224 lb 10.417 oz Body Mass Index (BMI) 41.8 Finger Stick Blood Glucose 42 Intake and Output for Last 24 Hours 01/19/19 01/20/19 01/21/19 23:59 23:59 23:59 Intake Total 580 / 580 240 / 240 125 / 125 Output Total 4425 / 4425 2150 / 2150 925 / 925 Balance -3845 / -3845 -1910 / -1910 -800 / -800 General: Alert, Oriented x3, Cooperative, No apparent distress HEENT: Atraumatic, PERRLA, EOMI, Normocephalic Oral: Dry Mucosa Neck: Supple, No JVD, Trachea Midline Lungs: Diminished, Rales, Rhonchi, Wheezes Cardiovascular: Regular rate, Regular Rhythm, Normal S1, Normal S2, No murmurs Abdomen: Soft, Non Tender, Non-Distended, No Hepato-splenomegaly Extremities: Capillary Refill Less than 3 Seconds, Edema - 1-2+ pitting Skin: No rashes, No breakdown Neurological: Neuro grossly intact, Sensory exam intact to light touch and pain Psych/Mental Status: Normal Affect, Appropriate Microbiology Past 72 Hours 01/18/19 21:04 Urine, Clean Catch Urine Culture - Final Mixed Gram Pos & Gram Neg Org Laboratory Results 01/20/19 16:09: POC Glucose 210 H 01/20/19 22:03: POC Glucose 201 H 01/21/19 06:05: WBC 4.8, RBC 3.27 L, Hgb 9.5 L, Hct 29.2 L, MCV 89.3, MCH 29.1, MCHC 32.5, RDW 14.4, RDW Differential 47.2 H, Plt Count 151, MPV 9.4, Immature Gran % (Auto) 0.000, Neut % (Auto) 65.2, Lymph % (Auto) 21.6, [place] % (Auto) 12.8 H, Eos % (Auto) 0.2, Baso % (Auto) 0.2, Absolute Neuts (auto) 3.1, Absolute Lymphs (auto) 1.03, Total Counted Not Reportable 01/21/19 06:05: Sodium 137, Potassium 3.7, Chloride 102, Carbon Dioxide 31.0, Anion Gap 4 L, BUN 18, Creatinine 1.04, Estim Creat Clear Calc 61.67, Est GFR (MDRD) Af Amer 93, Est GFR (MDRD) Non-Af 77, BUN/Creatinine Ratio 17.3, Glucose 146 H, Calcium 7.6 L 01/21/19 06:51: POC Glucose 147 H Current Medications Acetaminophen (Tylenol) 650 mg PO Q6H PRN PRN PRN Reason: Mild Pain (1-3)/Temp > 100.7 F Albuterol/Ipratropium (Duoneb) 3 ml INHALATION Q4H PRN PRN PRN Reason: SOB/Wheezing Last Admin: 01/20/19 21:47 Dose: 3 ml Amlodipine Besylate (Norvasc) 10 mg PO DAILY [facility] Last Admin: 01/21/19 08:48 Dose: 10 mg Carvedilol (Coreg) 25 mg PO BID [facility] Last Admin: 01/21/19 08:48 Dose: 25 mg Duloxetine HCl (Cymbalta) 30 mg PO DAILY [facility] Last Admin: 01/21/19 08:48 Dose: 30 mg Enoxaparin Sodium (Lovenox) 40 mg SC DAILY@1000 [facility] Last Admin: 01/21/19 08:49 Dose: 40 mg Furosemide (Lasix) 40 mg IV Q8 [facility] Last Admin: 01/21/19 05:48 Dose: 40 mg Gabapentin (Neurontin) 300 mg PO BID [facility] Last Admin: 01/21/19 08:48 Dose: 300 mg Hydralazine HCl (Apresoline) 25 mg PO BID [facility] Last Admin: 01/21/19 08:48 Dose: 25 mg Insulin Glargine (Lantus (Bkc)) 10 units SC QHS [facility] Last Admin: 01/20/19 22:03 Dose: 10 u Insulin Human Lispro (Humalog Kwikpen (Bkc)) 0 unit SC ACHS [facility]; Protocol Last Admin: 01/21/19 07:14 Dose: Not Given Lidocaine (Lidoderm Patch) 1 patch TOPICAL DAILY [facility]; Protocol Last Admin: 01/21/19 08:49 Dose: Not Given Losartan Potassium (Cozaar) 50 mg PO DAILY [facility] Last Admin: 01/21/19 08:48 Dose: 50 mg Magnesium Hydroxide (Milk Of Magnesia) 30 ml PO DAILY PRN PRN Reason: Constipation Melatonin (Melatonin) 3 mg PO QHS [facility] Last Admin: 01/20/19 22:01 Dose: 3 mg Prednisone () 40 mg PO DAILY@0800 [facility] Last Admin: 01/21/19 08:47 Dose: 40 mg Promethazine HCl (Phenergan) 12.5 mg IV Q4H PRN PRN PRN Reason: NAUSEA/VOMITING Last Admin: 01/21/19 00:41 Dose: 12.5 mg Sertraline HCl (Zoloft) 100 mg PO DAILY [facility] Last Admin: 01/21/19 08:48 Dose: 100 mg Sodium Chloride () 5 - 15 ml IV UD PRN PRN Reason: SALINE FLUSH Last Admin: 01/21/19 05:49 Dose: 15 ml Tamsulosin HCl (Flomax) 0.4 mg PO DAILY [facility] Last Admin: 01/21/19 08:49 Dose: 0.4 mg Tramadol HCl (Ultram) 50 mg PO Q8H PRN PRN PRN Reason: PAIN Last Admin: 01/19/19 15:15 Dose: 50 mg Medical Necessity - Tobacco Use Smoking Status: Never smoker Tobacco Use: Non-smoker Assessment/Plan All Active Problems Debility (Acute) Acute exacerbation of CHF (congestive heart failure) (Acute) Chest pain, unspecified (Resolved) Shortness of breath (Acute) Wheezing (Acute) Acute kidney injury (Resolved) Abnormal cardiac enzyme level (Resolved) Chest pain (Resolved) Shortness of breath (Resolved) hx epidural abscess (Resolved) 1. Acute on chronic diastolic heart failure/chronic hypoxic respiratory failure or/CAD/HTN/HLD -We will continue with IV Lasix, had a recent stress test as well as a recent echo that demonstrated an EF of 45% -States he does not wear any oxygen and is currently on 2 L nasal cannula -Continue with oral steroids considering he has continued wheezing -In the meantime continue with DuoNeb -Continue with Coreg, hydralazine, Norvasc, losartan 2. IDDM 2 -We will continue with his home insulin regimen and scale coverage -BG stable at 146 3. Depression -Stable -Continue with Cymbalta, hydroxyzine and Zoloft 4. BPH -Stable -Continue with Flomax Disposition: Plan for discharge back to long term facility tomorrow DVT: Lovenox Code Visit Inpatient E&M: 33822 Subs Hosp L2
[2019-01-21] MEDS: Insulin Lispro 100 UNIT/ML INSULN.PEN SC ×2 (11:35→17:06)
--- NOTE | 2019-01-21 11:38 | PN_ITS ---
Patient Problems: Active and Suspected Problems Acute exacerbation of CHF (congestive heart failure) (Acute) Shortness of breath (Acute) Wheezing (Acute) Subjective: Doing well, states that he is breathing better. He would like to stay another day to see if he can get off of the oxygen. Vitals/I&O's: Vital Signs Temp Pulse Resp BP Pulse Ox 98.2 F 71 18 113/53 L 95 01/21/19 05:45 01/21/19 08:48 01/21/19 05:45 01/21/19 05:45 01/21/19 08:00 Oxygen Flow Rate (L/min) 2 Oxygen Delivery Method Nasal Cannula Weight: 224 lb 10.417 oz Body Mass Index (BMI) 41.8 Finger Stick Blood Glucose 42 Intake and Output for Last 24 Hours 01/19/19 01/20/19 01/21/19 23:59 23:59 23:59 Intake Total 580 / 580 240 / 240 125 / 125 Output Total 4425 / 4425 2150 / 2150 925 / 925 Balance -3845 / -3845 -1910 / -1910 -800 / -800 General: Alert, Oriented x3, Cooperative, No apparent distress HEENT: Atraumatic, PERRLA, EOMI, Normocephalic Oral: Dry Mucosa Neck: Supple, No JVD, Trachea Midline Lungs: Diminished, Rales, Rhonchi, Wheezes Cardiovascular: Regular rate, Regular Rhythm, Normal S1, Normal S2, No murmurs Abdomen: Soft, Non Tender, Non-Distended, No Hepato-splenomegaly Extremities: Capillary Refill Less than 3 Seconds, Edema - 1-2+ pitting Skin: No rashes, No breakdown Neurological: Neuro grossly intact, Sensory exam intact to light touch and pain Psych/Mental Status: Normal Affect, Appropriate Microbiology Past 72 Hours 01/18/19 21:04 Urine, Clean Catch Urine Culture - Final Mixed Gram Pos & Gram Neg Org Laboratory Results 01/20/19 16:09: POC Glucose 210 H 01/20/19 22:03: POC Glucose 201 H 01/21/19 06:05: WBC 4.8, RBC 3.27 L, Hgb 9.5 L, Hct 29.2 L, MCV 89.3, MCH 29.1, MCHC 32.5, RDW 14.4, RDW Differential 47.2 H, Plt Count 151, MPV 9.4, Immature Gran % (Auto) 0.000, Neut % (Auto) 65.2, Lymph % (Auto) 21.6, [place] % (Auto) 12.8 H, Eos % (Auto) 0.2, Baso % (Auto) 0.2, Absolute Neuts (auto) 3.1, Absolute Lymphs (auto) 1.03, Total Counted Not Reportable 01/21/19 06:05: Sodium 137, Potassium 3.7, Chloride 102, Carbon Dioxide 31.0, Anion Gap 4 L, BUN 18, Creatinine 1.04, Estim Creat Clear Calc 61.67, Est GFR (MDRD) Af Amer 93, Est GFR (MDRD) Non-Af 77, BUN/Creatinine Ratio 17.3, Glucose 146 H, Calcium 7.6 L 01/21/19 06:51: POC Glucose 147 H Current Medications Acetaminophen (Tylenol) 650 mg PO Q6H PRN PRN PRN Reason: Mild Pain (1-3)/Temp > 100.7 F Albuterol/Ipratropium (Duoneb) 3 ml INHALATION Q4H PRN PRN PRN Reason: SOB/Wheezing Last Admin: 01/20/19 21:47 Dose: 3 ml Amlodipine Besylate (Norvasc) 10 mg PO DAILY [facility] Last Admin: 01/21/19 08:48 Dose: 10 mg Carvedilol (Coreg) 25 mg PO BID [facility] Last Admin: 01/21/19 08:48 Dose: 25 mg Duloxetine HCl (Cymbalta) 30 mg PO DAILY [facility] Last Admin: 01/21/19 08:48 Dose: 30 mg Enoxaparin Sodium (Lovenox) 40 mg SC DAILY@1000 [facility] Last Admin: 01/21/19 08:49 Dose: 40 mg Furosemide (Lasix) 40 mg IV Q8 [facility] Last Admin: 01/21/19 05:48 Dose: 40 mg Gabapentin (Neurontin) 300 mg PO BID [facility] Last Admin: 01/21/19 08:48 Dose: 300 mg Hydralazine HCl (Apresoline) 25 mg PO BID [facility] Last Admin: 01/21/19 08:48 Dose: 25 mg Insulin Glargine (Lantus (Bkc)) 10 units SC QHS [facility] Last Admin: 01/20/19 22:03 Dose: 10 u Insulin Human Lispro (Humalog Kwikpen (Bkc)) 0 unit SC ACHS [facility]; Protocol Last Admin: 01/21/19 07:14 Dose: Not Given Lidocaine (Lidoderm Patch) 1 patch TOPICAL DAILY [facility]; Protocol Last Admin: 01/21/19 08:49 Dose: Not Given Losartan Potassium (Cozaar) 50 mg PO DAILY [facility] Last Admin: 01/21/19 08:48 Dose: 50 mg Magnesium Hydroxide (Milk Of Magnesia) 30 ml PO DAILY PRN PRN Reason: Constipation Melatonin (Melatonin) 3 mg PO QHS [facility] Last Admin: 01/20/19 22:01 Dose: 3 mg Prednisone () 40 mg PO DAILY@0800 [facility] Last Admin: 01/21/19 08:47 Dose: 40 mg Promethazine HCl (Phenergan) 12.5 mg IV Q4H PRN PRN PRN Reason: NAUSEA/VOMITING Last Admin: 01/21/19 00:41 Dose: 12.5 mg Sertraline HCl (Zoloft) 100 mg PO DAILY [facility] Last Admin: 01/21/19 08:48 Dose: 100 mg Sodium Chloride () 5 - 15 ml IV UD PRN PRN Reason: SALINE FLUSH Last Admin: 01/21/19 05:49 Dose: 15 ml Tamsulosin HCl (Flomax) 0.4 mg PO DAILY [facility] Last Admin: 01/21/19 08:49 Dose: 0.4 mg Tramadol HCl (Ultram) 50 mg PO Q8H PRN PRN PRN Reason: PAIN Last Admin: 01/19/19 15:15 Dose: 50 mg Medical Necessity - Tobacco Use Smoking Status: Never smoker Tobacco Use: Non-smoker Assessment/Plan All Active Problems Debility (Acute) Acute exacerbation of CHF (congestive heart failure) (Acute) Chest pain, unspecified (Resolved) Shortness of breath (Acute) Wheezing (Acute) Acute kidney injury (Resolved) Abnormal cardiac enzyme level (Resolved) Chest pain (Resolved) Shortness of breath (Resolved) hx epidural abscess (Resolved) 1. Acute on chronic diastolic heart failure/chronic hypoxic respiratory failure or/CAD/HTN/HLD -We will continue with IV Lasix, had a recent stress test as well as a recent echo that demonstrated an EF of 45% -States he does not wear any oxygen and is currently on 2 L nasal cannula -Continue with oral steroids considering he has continued wheezing -In the meantime continue with DuoNeb -Continue with Coreg, hydralazine, Norvasc, losartan 2. IDDM 2 -We will continue with his home insulin regimen and scale coverage -BG stable at 146 3. Depression -Stable -Continue with Cymbalta, hydroxyzine and Zoloft 4. BPH -Stable -Continue with Flomax Disposition: Plan for discharge back to long term facility tomorrow DVT: Lovenox Code Visit Inpatient E&M: 93001 Subs Hosp L2
[2019-01-21 11:41] LABS: Bedside Glucose 155 mg/dL (70-110)
[2019-01-21 17:16] LABS: Bedside Glucose 271 mg/dL (70-110)
[2019-01-21] MEDS: MELATONIN 3 MG TABLET PO (20:57)
[2019-01-21] MEDS: traMADol 50 MG Tablet PO (21:32)
[2019-01-21 21:35] LABS: Bedside Glucose 279 mg/dL (70-110)
[2019-01-21] MEDS: Ipratropium/Albuterol Sulfate 3 ML AMPUL.NEB INHALATION (22:03)
[2019-01-21] MEDS: Mag Hydrox/Al Hydrox/Simeth 30 ML UDC PO (22:10)
[2019-01-22] VITALS (11 sets, daily range): BP systolic 134–139; BP diastolic 59–81; PULSE 57–76; RESP 12–18; TEMP 36.8–37.6; O2SAT 92–95
[2019-01-22] MEDS: 0.9% NaCl Peripheral Flush Adult/Peds IV (05:37)
[2019-01-22] MEDS: Furosemide 40 MG/4 ML Vial IV (05:37)
[2019-01-22 06:50] LABS: Bedside Glucose 167 mg/dL (70-110)
[2019-01-22] MEDS: Insulin Lispro 100 UNIT/ML INSULN.PEN SC (09:23)
[2019-01-22] MEDS: Carvedilol 25 MG Tablet PO (09:24)
[2019-01-22] MEDS: DULoxetine Hcl 30 MG Capsule PO (09:24)
[2019-01-22] MEDS: Tamsulosin HCl 0.4 MG Capsule PO (09:24)
[2019-01-22] MEDS: Losartan Potassium 50 MG Tablet PO (09:24)
[2019-01-22] MEDS: hydrALAZINE 25 MG Tablet PO (09:24)
[2019-01-22] MEDS: predniSONE 20 MG Tablet 40 MG PO (09:24)
[2019-01-22] MEDS: amLODIPine 10 MG Tablet PO (09:25)
[2019-01-22] MEDS: Gabapentin 300 MG Capsule PO (09:25)
[2019-01-22] MEDS: Sertraline 100 MG Tablet PO (09:25)
[2019-01-22] MEDS: Enoxaparin 40 MG/0.4 ML Syringe SC (09:25)
--- NOTE | 2019-01-22 10:49 | TREXTCAR_ITS ---
- Diet 01/18/19 22:40 Diet: Cardiac: Calorie-Controlled Food consistency:: Regular Liquid Consistency:: Regular/Thin How many daily calories?: 1800 calorie - Routine Orders/Code Status Routine Lab Work: [facility] Code Status: Full Code - Wound(s) right forearm Wound Type: Burn - Therapies Physical Therapy: Eval and Treat Occupational Therapy: Eval and Treat - Allergies/Procedures Done in Hospital Allergies/Adverse Reactions: Allergies metoclopramide HCl [From Reglan] Adverse Reaction (Verified 01/18/19 19:49) goofy, anxious, elevated BP ondansetron HCl [From Zofran] Adverse Reaction (Verified 01/18/19 19:49) goofy, anxious, elevated BP Ovdcxrz-Ral-Brv Reductase Inhibitor Adverse Reaction (Verified 01/18/19 19:49) rhabdomyolosis - Type of Care/Length of Stay Estimated LOS: Convalescent Care Less Than 30 days Type of Care Needed: Skilled Rehab Potential: Good Prognosis: Good - Additional Orders/Day of Discharge Day of Discharge: 01/22/19 - Dietary and Speech Recommendations Dietitian Recommendations/Changes: Suggest diet change to 2000 calorie/cardiac, low sodium with 1500 ml FR. Will d/c glucerna shake on medpass--pt is refusing. - Follow Up Care Primary Care Physician: Malik Roper,Out of [Primary Care Provider] - Please follow up with your Primary Care Physician in: 3-5 days
--- NOTE | 2019-01-22 11:05 | CASEMGMT ---
Patient is ready for discharge back to [place] [facility]. YOLANDA spoke with patient and he needs transport set up. YOLANDA told him it would be wheelchair van and it is not covered by insurance. SW told him it would be around a $45 base fee and then $4.50 per mile. He said that is fine. YOLANDA called [facility] and arranged for patient to get picked up at via [facility] van. YOLANDA faxed orders to [facility]. YOLANDA called Jenni at [facility] and let her know about d/c and berry picker time. YOLANDA also notified RN who notified patient. Plan: d/c back to [place] [facility] under skilled level of care. [facility] transported him via wc van. Letty GALVAN
[2019-01-22 11:45] LABS: Bedside Glucose 167 mg/dL (70-110)
--- NOTE | 2019-01-22 12:02 | DS.PCM_ITS ---
Discharge Date and Diagnosis - Problem List Patient Problems: Active and Suspected Problems Acute exacerbation of CHF (congestive heart failure) (Acute) Shortness of breath (Acute) Wheezing (Acute) Date of Admission: 01/18/19 Date of Discharge: 01/22/19 - Primary Discharge Diagnosis Active and Suspected Problems Acute exacerbation of CHF (congestive heart failure) (Acute) Shortness of breath (Acute) Wheezing (Acute) - Secondary Discharge Diagnosis Chronic Problems Hypoxemia (Chronic) LISSA (obstructive sleep apnea) (Chronic) Decubitus ulcer of heel, right, unstageable (Chronic) Cellulitis of right heel (Chronic) Anemia (Chronic) S/P PTCA (percutaneous transluminal coronary angioplasty) (Chronic) Cardiomyopathy (Chronic) 38% gated nuclear EF on 11/03/18 ICD (implantable cardioverter-defibrillator) in place (Chronic) mediport placement (Chronic) Hyperlipidemia (Chronic) DM type 2 (diabetes mellitus, type 2) (Chronic) Chronic CHF (congestive heart failure) (Chronic) ef=25% as of 04/04 Carotid artery stenosis (Chronic) R CEA CAD (coronary artery disease) (Chronic) extensive disease multiple stents Hx of CABG (Chronic) Obesity (Chronic) Benign hypertension (Chronic) Hospital Course and Treatment Imaging Results: CXR: IMPRESSION: There is a small right perihilar infiltrate. There is minimal fluid and/or thickening of the right minor fissure. These abnormalities represent new interval findings from the previous study. There is also demonstrated a new small right-sided pleural effusion. There is mild cardiomegaly. Status post sternotomy changes are present. There is a right-sided MediPort with catheter tip superimposed on the atriocaval junction. There are severe degenerative changes of the right shoulder joint. Consults: None Operations: None Procedures: None Summary of Care Provided: Per HPI: The patient is a 63 year old M was seen in the emergency room at [facility] with chief complaint of increasing shortness of breath over the last 3-5 days. Patient is at a half-way facility for rehab following a fall resulting in a subdural hematoma and multiple rib fractures. Patient was initially admitted to the rehab unit at [facility] but within 24 hours of admission decided he wanted to go to a [facility] instead-there was some disagreement about his pain medication in the rehab unit. Patient is a poor informant, he does not admit to purulent sputum production, fevers, or chills. Workup in the emergency room included a chest x-ray which showed evidence of congestive heart failure, CBC was remarkable for hemoglobin of 10.4, chemistry profile was remarkable for glucose of 134. Liver profile showed a slightly elevated alkaline phosphatase at 140. Patient's beta natruretic peptide was elevated at 963. Urinalysis was unremarkable. Patient will be admitted to PCU for acute congestive heart failure diastolic in nature. Patient had an echocardiogram done in September 2018 which showed an EF of 45% with evidence of mild pulmonary hypertension. Hospital Course: 1. Acute on chronic diastolic heart failure/chronic hypoxic respiratory failure/CAD/HTN/PAZ-41-wmxz-old male presented to the hospital planing of shortness of breath. He had been recently admitted and discharged to a rehab facility following a subdural hematoma and multiple rib fractures, he had been on 2 L nasal cannula at baseline at the [facility] rehab. He was admitted and placed on 4 L and he was doing well. It was felt that he was having a diastolic heart failure exacerbation and was started on Lasix. During the course of his stay it was noted that he had wheezing in his lung le and was also started on prednisone as well as DuoNeb. He did have significant improvement and is currently off of oxygen. He states that he has not smoked and never had a diagnosis of asthma, and therefore I think that given the improvement with the Lasix and the steroids he may benefit from pulmonary function test as an outpatient. At the moment we will continue with his normal diuretic now that the fluid has been removed, and can proceed with prednisone taper. 2. His other medical diagnoses were evaluated and his home medications were continued where appropriate Patient Problems: Active and Suspected Problems Acute exacerbation of CHF (congestive heart failure) (Acute) Shortness of breath (Acute) Wheezing (Acute) Objective: General: Alert, Oriented x3, Cooperative, No apparent distress HEENT: Atraumatic, PERRLA, EOMI, Normocephalic Oral: Dry Mucosa Neck: Supple, No JVD, Trachea Midline Lungs: Good air movement, no Rales, no Rhonchi, Wheezes Cardiovascular: Regular rate, Regular Rhythm, Normal S1, Normal S2, No murmurs Abdomen: Soft, Non Tender, Non-Distended, No Hepato-splenomegaly Extremities: Capillary Refill Less than 3 Seconds, Edema - 1+ pitting Skin: No rashes, No breakdown Neurological: Neuro grossly intact, Sensory exam intact to light touch and pain Psych/Mental Status: Normal Affect, Appropriate - Physical Exam Vital Signs Temp Pulse Resp BP Pulse Ox 98.3 F 60 17 139/81 H 94 01/22/19 10:48 01/22/19 10:49 01/22/19 10:48 01/22/19 10:48 01/22/19 10:48 Oxygen Flow Rate (L/min) 2 Oxygen Delivery Method Room Air Weight: 221 lb 9.033 oz Body Mass Index (BMI) 41.8 Finger Stick Blood Glucose 42 Intake and Output for Last 24 Hours 01/20/19 01/21/19 01/22/19 23:59 23:59 23:59 Intake Total 240 / 240 1185 / 1185 0 / 0 Output Total 2150 / 2150 3250 / 3250 0 / 0 Balance -1910 / -1910 -2065 / -2065 0 / 0 Microbiology Past 72 Hours 01/18/19 19:30 Blood Culture - Preliminary Blood Culture (Wb) - Port No growth in 48 hours. 01/18/19 19:30 Blood Culture - Preliminary Blood Culture (Wb) - Left Hand No growth in 48 hours. 01/18/19 21:04 Urine Culture - Final Urine, Clean Catch Mixed Gram Pos & Gram Neg Org POC Glucose 01/22/19 01/22/19 01/21/19 11:05 06:46 21:12 POC Glucose 167 H 167 H 279 H 01/21/19 17:05 POC Glucose 271 H Home Medications: Medications to take at Discharge Gabapentin 300 mg PO BID 10/13/18 Hydroxyzine HCl 25 mg PO BID PRN 10/13/18 hydrALAZINE [Apresoline] 25 mg PO BID 10/13/18 Ipratropium/Albuterol Sulfate [Duoneb] 3 ml INHALATION Q4H PRN PRN 01/12/19 Lidocaine [Lidoderm Patch] 1 patch TOPICAL DAILY 01/12/19 Sertraline HCl 100 mg PO DAILY 01/12/19 Tamsulosin HCl [Flomax] 0.4 mg PO DAILY 01/12/19 Carvedilol [Coreg (Beta Ronald)] 25 mg PO BID tablet 01/13/19 Duloxetine Hcl [Cymbalta] 30 mg PO DAILY capsule 01/13/19 Insulin Glargine [Lantus SoloStar Pen] 10 units SC QHS pen 01/13/19 Losartan Potassium [Cozaar] 50 mg PO DAILY tablet 01/13/19 Heparin Injection (Vial) [Heparin Na] 5,000 unit SC TID 01/14/19 Insulin Lispro [Humalog Nilesh Kwikpen] unit SQ 4X/DAY 01/14/19 traMADol [Ultram] 50 mg PO Q8H PRN PRN 01/14/19 Bumetanide [Bumex] 2 mg PO DAILY 01/18/19 Melatonin 3 mg PO QHS 01/19/19 Amlodipine [Norvasc] 10 mg PO DAILY #0 01/22/19 predniSONE tablet 40 mg PO DAILY@0800 tablet 01/22/19 Primary Care Physician: Malik Roper,Out of [Primary Care Provider] - Please follow up with your Primary Care Physician in: 3-5 days Disposition: Residential facility Minutes spent on discharge:: 35 Patient Condition:: Good Medical Necessity - Tobacco Use Smoking Status: Never smoker Tobacco Use: Non-smoker Meaningful Use Info Meaningful Use Diagnoses (Choose all that apply): None applicable Code Visit Inpatient E&M: 87374 Disch Hosp
--- NOTE | 2019-01-22 12:09 | PHA.DC.MR ---
Pharmacy Service has performed discharge medication reconciliation for this patient upon transfer to [facility]. The patient's discharge medication list was reviewed for discrepancies and discrepancies were resolved. Home Medications Gabapentin 300 mg PO BID 10/13/18 Hydroxyzine HCl 25 mg PO BID PRN 10/13/18 hydrALAZINE [Apresoline] 25 mg PO BID 10/13/18 Ipratropium/Albuterol Sulfate [Duoneb] 3 ml INHALATION Q4H PRN PRN 01/12/19 Lidocaine [Lidoderm Patch] 1 patch TOPICAL DAILY 01/12/19 Sertraline HCl 100 mg PO DAILY 01/12/19 Tamsulosin HCl [Flomax] 0.4 mg PO DAILY 01/12/19 Carvedilol [Coreg (Beta Ronald)] 25 mg PO BID tablet 01/13/19 Duloxetine Hcl [Cymbalta] 30 mg PO DAILY capsule 01/13/19 Insulin Glargine [Lantus SoloStar Pen] 10 units SC QHS pen 01/13/19 Losartan Potassium [Cozaar] 50 mg PO DAILY tablet 01/13/19 Heparin Injection (Vial) [Heparin Na] 5,000 unit SC TID 01/14/19 Insulin Lispro [Humalog Nilesh Kwikpen] unit SQ 4X/DAY 01/14/19 traMADol [Ultram] 50 mg PO Q8H PRN PRN 01/14/19 Bumetanide [Bumex] 2 mg PO DAILY 01/18/19 Melatonin 3 mg PO QHS 01/19/19 Amlodipine [Norvasc] 10 mg PO DAILY #0 01/22/19 predniSONE tablet 40 mg PO DAILY@0800 tablet 01/22/19
--- NOTE | 2019-01-22 13:08 | NURSING ---
Report called to Adri at [facility].
[2019-01-22] MEDS: 0.9% NaCl VAD Flush 10 ML IV (13:14)
== END 2019-01-22 13:00 | disposition skilled nursing facility (03) | DRG 292 ==
LOC: ED 21:54 → PCU 22:39
PROVIDERS: Admitting Provider Internal Medicine; Emergency Provider Emergency Medicine; Visit Provider Family Medicine
DX: I11.0 Hypertensive heart disease with heart failure (principal); J96.11 Chronic respiratory failure with hypoxia; I50.33 Acute on chronic diastolic (congestive) heart failure; I25.10 Atherosclerotic heart disease of native coronary artery without angina pectoris; E78.5 Hyperlipidemia, unspecified; Z99.81 Dependence on supplemental oxygen; E11.9 Type 2 diabetes mellitus without complications; I25.5 Ischemic cardiomyopathy; N40.0 Benign prostatic hyperplasia without lower urinary tract symptoms; F32.9 Major depressive disorder, single episode, unspecified; G47.33 Obstructive sleep apnea (adult) (pediatric); Z95.1 Presence of aortocoronary bypass graft
CPT/HCPCS: 70450; 71045; 80048; 80053; 81001; 82962; 83605; 83880; 84484; 85025; 85610; 85730; 87040; 87086; 87088; 93005; 94640; 94660; 96374; 96376; 97110; 97162; 97166; 97530; 97802; 99284; 99285; A4216; J1940

== ENCOUNTER 2019-02-04 11:08 | Inpatient (IN) | payer MEDICARE, OTHER, SELFPAY ==
[2019-01-18 22:59] VITALS: BMI 41.8
[2019-02-04] VITALS (12 sets, daily range): BP systolic 79–122; BP diastolic 31–82; PULSE 50–67; RESP 12–19; TEMP 36.4–37.2; O2SAT 96–98; BMI 35.6; BMI 35.3
--- NOTE | 2019-02-04 11:16 | EKG12_ITS ---
Test Reason : HYPOTENSION Blood Pressure : / mmHG Vent. Rate : 054 BPM Atrial Rate : 054 BPM P-R Int : 212 ms QRS Dur : 154 ms QT Int : 504 ms P-R-T Axes : 041 251 043 degrees QTc Int : 477 ms Sinus bradycardia with 1st degree A-V block Right bundle branch block Abnormal ECG Confirmed by AMY KEY, ARMIDA ([id number]), publications editor ROSANGELA QUINTERO ([id number]) on 02/09/2019 9:55:55 AM Referred By: TREVOR Confirmed By:ARMIDA REYES MD
--- NOTE | 2019-02-04 11:16 | RAD_ITS ---
STUDY: X-RAY CHEST REASON FOR EXAM: Male, 63 years old. Chest pain. TECHNIQUE: Single AP portable view of the chest. COMPARISON: Comparison is made with prior study dated January 18, 2019. FINDINGS: EKG electrodes are seen. A right-sided portacatheter is present with the tip in the right atrium. Stable mild elevation of the right hemidiaphragm. The lungs are clear. There is no demonstrated pleural abnormality. Sternal cerclage wires and vascular clips are present from a prior sternotomy and coronary artery bypass graft procedure (CABG). A left-sided unipolar pacemaker is seen. Normal mediastinum and rachele. Normal visualized pulmonary arteries. Normal visualized aortic arch and descending thoracic aorta. Normal visualized thoracic spine. Normal visualized ribs, clavicles, and shoulders. There is no demonstrated abnormality of the visualized soft tissue structures of the upper abdomen. RAD/Chest 1 View (Portable) IMPRESSION: Stable examination. Electronically Signed: Alen Colin, at 11:35 EDT , Service support ,
--- NOTE | 2019-02-04 11:16 | CT_ITS ---
STUDY: CT ABDOMEN AND PELVIS WITHOUT CONTRAST REASON FOR EXAM: Male, 63 years old. Abdominal pain RADIATION DOSAGE (If Supplied By Facility): CTDIvol = ( 18.56 ) mGy, DLP = ( 1006.50 ) mGycm TECHNIQUE: Transaxial images were obtained from the dome of the diaphragm to the symphysis pubis without oral contrast, and without intravenous contrast. Sagittal and coronal images were reconstructed. Individualized dose optimization techniques were used for this CT. COMPARISON: CT pelvis 11/05/2018. FINDINGS: Lack of intravenous contrast limits evaluation of abdominal and pelvic organs. There are moderate bilateral pleural effusions. There is pulmonary edema noted at the lung bases and mild bibasilar atelectasis. Pacemaker wires are partially visualized. There are coronary artery calcifications. Normal liver. There are surgical clips in the gallbladder fossa consistent with a prior cholecystectomy. Normal spleen. Normal pancreas. Normal bilateral adrenal glands. Normal right kidney. Normal left kidney. There is a punctate, nonobstructing right renal upper pole stone. No hydronephrosis. Normal visualized stomach. Normal small intestine. Normal colon. There are surgical clips in the region of the appendix consistent with a prior appendectomy. There is aortic and branch vessel atherosclerotic disease. There is dense atherosclerotic calcifications of the vessel supplying the seminal vesicles and prostate gland.. Normal inferior vena cava. Normal retroperitoneum. There is moderate diffuse mesenteric edema and trace perihepatic ascites. There is mild free fluid in the presacral region. There is circumferential urinary bladder wall thickening and mild perivesicular inflammation.. There is bilateral inguinal hernia repair. There is marked diffuse subcutaneous edema of the abdominal and pelvic wall. Normal osseous structures. CT/Abdomen/Pelvis without Cont IMPRESSION: There is marked diffuse anasarca. Moderate diffuse mesenteric edema and trace perihepatic ascites. Moderate bilateral pleural effusions and bibasilar pulmonary edema. Findings are in keeping with fluid overload. There is diffuse urinary bladder wall thickening and perivesicular inflammation suggesting cystitis, correlate with UA. Electronically Signed: Enrique Doran, at 13:22 EDT Tel , Service support ,
--- NOTE | 2019-02-04 11:36 | ED.DCSUM_ITS ---
- ER Visit Summary Date of Service: 02/04/19 Chief Complaint: Generalized weakness History of Present Illness: The patient is a 63 M presenting for evaluation secondary to generalized weakness. Patient reports that since yesterday he has been feeling lightheaded and generally weak. He denies any laterality to this weakness. He denies any other associated symptoms on full review of systems, and denies any chest pain, shortness of breath, headaches, nausea, vomiting, sore throat, vomiting, diarrhea. She does endorse that he had some mild right lower quadrant abdominal pain but this been going on for quite some time. Patient has an underlying history of coronary artery disease with multiple stents, bypass in the past, and a history of congestive heart failure with an ejection fraction of 35%. Patient also states that he had a recent history of having a subdural hematoma. He denies any headache or visual changes. Review of systems otherwise negative. Physical Examination: Vital signs notable for blood pressure 83/48 and a heart rate of 55. Obese male no acute distress. Head normocephalic. No conjunctival pallor or scleral icterus, moist mucous membranes, neck was supple. Heart was bradycardic and regular with a 3 out of 6 systolic murmur. Lung sounds clear to auscultation bilaterally. Abdomen showed minimal tenderness in the right lower quadrant no guarding or rebound tenderness noted. There was peripheral edema noted, right being greater than left which patient states is chronic with 1+ bilateral DP pulses and 2+ radial pulses bilaterally symmetric. Test Results: EKG demonstrates sinus bradycardia with first-degree AV block and right bundle branch block no evidence of acute changes from prior EKG. EKG #2: Sinus bradycardia with rate of 52 long IA interval at 232, no evidence of acute ischemic changes. CBC demonstrates chronic anemia 9.0 with mild thrombocytopenia 148. Chemistry shows a creatinine 1.4. Urinalysis shows no infection, troponin negative, lactic acid negative. Chest x-ray shows chronic changes. CT abdomen and pelvis shows mesenteric edema with anasarca. Emergency Department Course and Treatment: Patient presented with hypotension and generalized weakness. Patient was given fluid resuscitation upon arrival. Patient's workup shows more so that he has congestive heart failure. There is no signs of infection. Blood cultures were sent lactic acid was found to be negative. Patient's blood pressure did improve, but it seems like he is significantly fluid overloaded at this point. Given the fact that the patient has an ejection fraction of 35%, has symptomatology of CHF exacerbation, and had hypotension I do believe that he requires admission. Patient was given a dose of Lasix. Patient will be admitted on the hospitalist. Disposition: Admission Impression: 1. CHF exacerbation 2. Hypotension, resolved This note was generated with [employer] dictation software. It may contain incorrect words, spelling, and punctuation that were not noted in review of the chart prior to signing ED Disposition - Plan for ED Patient: Referrals: [facility] Doctor,Out of [NON-STAFF] -
[2019-02-04 12:14] LABS: Absolute Lymphocyte Count 1.19 X10^3/ul (0.83-4.51); Absolute Neutrophil Count 4.2 X10^3/uL (2.0-7.7); Basophil# 0.03 X10^3/uL; Basophil% 0.5 % (0-1); Eosinophil# 0.22 X10^3/uL; Eosinophils% 3.4 % (0-5); Hematocrit 27.9 % (40-54); Lymphocyte # 1.19 X10^3/ul (4.0); Lymphocyte % 18.4 % (19-41); Mean Corp Hgb Conc 32.3 g/gl (32-36); Mean Corpuscular Hgb 29.4 pg (27.0-32.0); Mean Corpuscular Volume 91.2 fL (80-94); Mean Platelet Vol. 9.7 fl (6.2-12.0); Monocyte# 0.77 X10^3/uL; Monocyte% 11.9 % (0-10); Neutrophil # 4.24 X10^3/uL (2.7-7.7); Neutrophil % 65.6 % (47-70); Platelet Count 148 K/mm3 (150-450); RBC Distribution Width CV 15.1 % (11.6-14.6); RBC Distribution Width SD 49.8 fl (35.1-43.9); Red Blood Count 3.06 M/mm3 (4.6-6.2); White Blood Count 6.5 K/mm3 (4.4-11.0)
[2019-02-04 12:16] LABS: POSITIVE COUNT NO; POSITIVE DIFFERENTIAL NO; POSITIVE MORPHOLOGY NO
--- NOTE | 2019-02-04 12:17 | EKG12_ITS ---
Test Reason : REPEAT-CP Blood Pressure : / mmHG Vent. Rate : 052 BPM Atrial Rate : 052 BPM P-R Int : 232 ms QRS Dur : 154 ms QT Int : 508 ms P-R-T Axes : 062 248 042 degrees QTc Int : 472 ms Sinus bradycardia with 1st degree A-V block Right bundle branch block Abnormal ECG Confirmed by AMY KEY, ARMIDA ([id number]), rewrite editor ROSANGELA QUINTERO ([id number]) on 02/09/2019 9:56:16 AM Referred By: TREVOR Confirmed By:ARMIDA REYES MD
[2019-02-04 12:20] LABS: International Normalized Ratio 1.2
[2019-02-04 12:21] LABS: Partial Thromboplast Time 34.3 Seconds (24.1-36.2)
[2019-02-04] MEDS: 0.9% Normal Saline 1,000 ML 1000 ML IV (12:23)
[2019-02-04 12:31] LABS: ALB/GLOB Ratio 0.9 RATIO (0.9-2.4); AST(SGOT) 37 U/L (15-37); Alanine Aminotransfer ALT/SGPT 47 U/L (16-61); Alkaline Phosphatase 128 U/L (45-117); Anion Gap 5 (5-15); BUN 39 mg/dL (7-18); BUN/Creat Ratio 27.5 RATIO (10-20); Calcium,Total 8.2 mg/dL (8.5-10.1); Chloride 101 mmol/L (98-107); Creatinine, Serum 1.42 mg/dL (0.70-1.30); EST Glomerular Filtration Rate 54 mL/min (>60); Est Glom Filt Rate - Afr Amer 65 mL/min (>60); Estimated Creatinine Clearance 53.94 ml/min; Globulin 3.3 g/dL (2.2-4.2); Glucose 149 mg/dL (74-106); Potassium 4.5 mmol/L (3.5-5.1); Protein, Total 6.3 g/dL (6.4-8.2); Sodium Level 136 mmol/L (136-145)
[2019-02-04 12:34] LABS: Lactic Acid 0.8 mmol/L (0.4-2.0)
[2019-02-04] MEDS: Aspirin 81 MG TAB.CHEW 324 MG PO (13:10)
[2019-02-04] MEDS: proMETHazine 25 MG/ML Syringe 6.25 MG IV ×3 (13:19→22:43)
[2019-02-04] MEDS: fentaNYL 100 MCG/2 ML Ampul 25 MCG IV (13:19)
[2019-02-04 14:19] LABS: Bacteria 0 SEEN /hpf (None Seen); Mucous, Urine 0 SEEN /hpf (<or=2+); Red Blood Cells-Urine 0 SEEN /hpf (0-5)
[2019-02-04 14:30] LABS: Color, Urine Yellow (Yellow); Glucose, Dipstick Normal (Normal); Ketone-Dipstick Negative (Negative); Leukocyte Esterase-Dipstick 25 /ul (Negative); Nitrite-Dipstick Negative (Negative); Occult Blood-Urine Negative /ul (Negative); Protein-Dipstick 100 mg/dl (Negative); Specific Gravity, Urine 1.015 (1.002-1.030); Urine Bilirubin Dipstick Negative (Negative); Urine Clarity Sl. Cloudy (Clear); Urine Urobilinogen Normal (Normal)
[2019-02-04 15:40] LABS: Squamous Epithelial Cells - UA 0-5 SEEN /hpf (0-5); White Blood Cells 0-5 SEEN /hpf (0-5)
[2019-02-04] MEDS: Furosemide 40 MG/4 ML Vial IV (15:52)
--- NOTE | 2019-02-04 15:55 | NURSING ---
DR NIHARIKA MURRAY
--- NOTE | 2019-02-04 16:10 | NURSING ---
PCU CHF NIHARIKA
--- NOTE | 2019-02-04 16:12 | PCM.HP.STD ---
Problem List (1) (HFpEF) heart failure with preserved ejection fraction Status: Acute Qualifiers: Heart failure chronicity: acute Qualified Code(s): I50.31 - Acute diastolic (congestive) heart failure (2) Hypotension Status: Acute Qualifiers: Hypotension type: unspecified hypotension type Qualified Code(s): I95.9 - Hypotension, unspecified (3) Debility Status: Chronic (4) Hypoxemia Status: Chronic (5) Chest pain, unspecified Status: Inactive (6) LISSA (obstructive sleep apnea) Status: Acute (7) Decubitus ulcer of heel, right, unstageable Status: Resolved (8) Cellulitis of right heel Status: Resolved (9) Anemia Status: Chronic Qualifiers: Anemia type: unspecified type Qualified Code(s): D64.9 - Anemia, unspecified (10) S/P PTCA (percutaneous transluminal coronary angioplasty) Status: Chronic (11) Cardiomyopathy Status: Chronic Qualifiers: Cardiomyopathy type: ischemic Comment: 38% gated nuclear EF on 11/03/18 (12) ICD (implantable cardioverter-defibrillator) in place Status: Chronic (13) mediport placement Status: Chronic (14) Hyperlipidemia Status: Chronic (15) DM type 2 (diabetes mellitus, type 2) Status: Chronic 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 The patient is a 63 year old M stared experiencing dizziness/lightheadedness last night. Presented to the ED today and was found to be hypotensive with BP of 79/31. he was having abdominal pain and he received 1 liter of NS. BP subsequently improved. Given his abdominal pain, he underwent a CT AP which showed extensive anasarca, mesenteic edema, trace perihepatic ascites and bilateral pleural effusions. He then received 40mg of IV lasix. Patient was admitted earlier this month with CHF exacerbation.[] Past Medical History Past Medical History (Chronic Problems): Chronic Problems Debility (Chronic) Hypoxemia (Chronic) LISSA (obstructive sleep apnea) (Chronic) Anemia (Chronic) S/P PTCA (percutaneous transluminal coronary angioplasty) (Chronic) Cardiomyopathy (Chronic) 38% gated nuclear EF on 11/03/18 ICD (implantable cardioverter-defibrillator) in place (Chronic) mediport placement (Chronic) Hyperlipidemia (Chronic) DM type 2 (diabetes mellitus, type 2) (Chronic) Chronic CHF (congestive heart failure) (Chronic) ef=25% as of 04/04 Carotid artery stenosis (Chronic) R CEA CAD (coronary artery disease) (Chronic) extensive disease multiple stents Hx of CABG (Chronic) Obesity (Chronic) Benign hypertension (Chronic) Allergies metoclopramide HCl [From Reglan] Adverse Reaction (Verified 02/04/19 11:17) goofy, anxious, elevated BP ondansetron HCl [From Zofran] Adverse Reaction (Verified 02/04/19 11:17) goofy, anxious, elevated BP Ibjjwsq-Pxf-Cym Reductase Inhibitor Adverse Reaction (Verified 02/04/19 11:17) rhabdomyolosis Home Medications: Ambulatory Orders Medication Instructions Recorded Gabapentin 300 mg PO BID 10/13/18 Hydroxyzine HCl 25 mg PO BID PRN 10/13/18 hydrALAZINE [Apresoline] 25 mg PO BID 10/13/18 Ipratropium/Albuterol Sulfate 3 ml INHALATION Q4H PRN PRN 01/12/19 [Duoneb] Lidocaine [Lidoderm Patch] 1 patch TOPICAL DAILY 01/12/19 Sertraline HCl 100 mg PO DAILY 01/12/19 Tamsulosin HCl [Flomax] 0.4 mg PO DAILY 01/12/19 Carvedilol [Coreg (Beta Ronald)] 25 mg PO BID tablet 01/13/19 Duloxetine Hcl [Cymbalta] 30 mg PO DAILY capsule 01/13/19 Insulin Glargine [Lantus SoloStar 10 units SC QHS pen 01/13/19 Pen] Losartan Potassium [Cozaar] 50 mg PO DAILY tablet 01/13/19 Heparin Injection (Vial) [Heparin 5,000 unit SC TID 01/14/19 Na] Insulin Lispro [Humalog Nilesh See Protocol SQ 4X/DAY 01/14/19 Kwikpen] traMADol [Ultram] 50 mg PO Q8H PRN PRN 01/14/19 Bumetanide [Bumex] 2 mg PO DAILY 01/18/19 Melatonin 3 mg PO QHS 01/19/19 Amlodipine [Norvasc] 10 mg PO DAILY #0 01/22/19 Bisacodyl 10 mg RC QHS PRN PRN 02/04/19 Magnesium Hydroxide [Milk of 30 ml PO DAILY PRN PRN 02/04/19 Magnesia] Mineral Oil 1 bottle RC DAILY PRN PRN 02/04/19 Nitroglycerin [Nitrostat] 0.4 mg SUBLINGUAL Q5M PRN 02/04/19 Nystatin Powder [Mycostatin Powder] 1 applic TOPICAL TID 02/04/19 Surgical History: appendectomy, cataract, cholecystectomy, coronary bypass surgery - 2005 - [place], herniorrhaphy, tonsillectomy, - - Cardiac stent placement ?24 (according to patient), right carotid endarterectomy. Lives: [facility] Smoking Status: Never smoker - *Family History Maternal History Items: No pertinent history Paternal History Items: Heart Disease - of an NM at age 61 Sibling History Items: No pertinent history Review of Systems Constitutional: Reports: Weakness. Denies: Anorexia, Chills, Fever, Malaise Eyes: Reports: - - dizziness. Denies: Blurred vision, Double vision HEENT: Denies: Head Aches, Sinus Congestion, Sinus Drainage Cardiovascular: Reports: Edema. Denies: Chest Pain, Palpitations Respiratory: Denies: Cough, Shortness of breath at rest, Sputum production Gastrointestinal: Reports: Abdominal Pain. Denies: Nausea, Vomiting Genitourinary: Denies: Dysuria Musculoskeletal: Reports: - - pain in right groin. Denies: Joint Pain, Joint Tenderness Skin: Denies: Dryness, Rash Neurological: Denies: Blurred vision, Double vision, Focal weakness, Numbness, Tingling Psychiatric: Denies: Anxiety, Depression Endocrine: Denies: Change in Body Habitus Hematologic/ Lymphatic: Denies: Easy Bruising, Easy Bleeding, Hx of blood clot Comment: A 10 point review of systems were negative except as mentioned in the history of present illness and the other review of systems. VTE Information - Inpt Only VTE Present on Admission: No VTE Mechan Device Prophylaxis: None VTE Pharm Prophylaxis ordered?: Yes Patient Problems: Active and Suspected Problems (HFpEF) heart failure with preserved ejection fraction (Acute) Hypotension (Acute) - Physical Exam General: Alert, No apparent distress HEENT: Atraumatic, Normocephalic, - - no sceral icterus Oral: Moist Mucosa, No Gingival or Mucosal Lesions/ Ulcerations Neck: No Nodes, Thyroid Normal Size and Texture Lungs: Clear to auscultation, Normal air movement, No rhonchi, No wheeze Cardiovascular: Regular rate, Regular Rhythm, Normal S1, Normal S2, No murmurs Abdomen: Bowel Sounds Present, Soft, Non Tender, Non-Distended, No Hepato-splenomegaly Extremities: No Calf Tenderness, Edema - trace Skin: No rashes, No breakdown Musculoskeletal: No Muscle Wasting, - - TTP in right groin--no hernia. Psych/Mental Status: Normal Affect, Appropriate Vital Signs Temp Pulse Resp BP Pulse Ox 37.2 C 52 L 14 89/55 L 97 02/04/19 11:09 02/04/19 16:01 02/04/19 16:01 02/04/19 15:03 02/04/19 16:01 Oxygen Flow Rate (L/min) 2 Oxygen Delivery Method Nasal Cannula Weight: 109.6 kg Body Mass Index (BMI) 35.6 Finger Stick Blood Glucose 42 Laboratory Tests Past 24 Hrs 02/04/19 02/04/19 02/04/19 11:50 11:50 11:50 WBC 6.5 RBC 3.06 L Hgb 9.0 L Hct 27.9 L MCV 91.2 MCH 29.4 MCHC 32.3 RDW 15.1 H RDW Differential 49.8 H Plt Count 148 L MPV 9.7 Immature Gran % (Auto) 0.200 Neut % (Auto) 65.6 Lymph % (Auto) 18.4 L [place] % (Auto) 11.9 H Eos % (Auto) 3.4 Baso % (Auto) 0.5 Absolute Neuts (auto) 4.2 Absolute Lymphs (auto) 1.19 Total Counted Not Reportable PT INR APTT Sodium 136 Potassium 4.5 Chloride 101 Carbon Dioxide 30.0 Anion Gap 5 BUN 39 H Creatinine 1.42 H Estim Creat Clear Calc 53.94 Est GFR (MDRD) Af Amer 65 Est GFR (MDRD) Non-Af 54 L BUN/Creatinine Ratio 27.5 H Glucose 149 H Lactic Acid 0.8 Calcium 8.2 L Total Bilirubin 0.50 AST 37 ALT 47 Alkaline Phosphatase 128 H Troponin I 0.023 Total Protein 6.3 L Albumin 3.0 L Globulin 3.3 Albumin/Globulin Ratio 0.9 Urine Color Urine Clarity Urine pH Ur Specific [place] Urine Protein Urine Glucose (UA) Urine Ketones Urine Occult Blood Urine Nitrite Urine Bilirubin Urine Urobilinogen Ur Leukocyte Esterase Urine RBC Urine WBC Ur Squamous Epith Cells Urine Bacteria Urine Mucus 02/04/19 02/04/19 11:50 14:12 WBC RBC Hgb Hct MCV MCH MCHC RDW RDW Differential Plt Count MPV Immature Gran % (Auto) Neut % (Auto) Lymph % (Auto) [place] % (Auto) Eos % (Auto) Baso % (Auto) Absolute Neuts (auto) Absolute Lymphs (auto) Total Counted PT 15.0 H INR 1.2 APTT 34.3 Sodium Potassium Chloride Carbon Dioxide Anion Gap BUN Creatinine Estim Creat Clear Calc Est GFR (MDRD) Af Amer Est GFR (MDRD) Non-Af BUN/Creatinine Ratio Glucose Lactic Acid Calcium Total Bilirubin AST ALT Alkaline Phosphatase Troponin I Total Protein Albumin Globulin Albumin/Globulin Ratio Urine Color Yellow Urine Clarity Sl. Cloudy Urine pH 5.0 Ur Specific [place] 1.015 Urine Protein 100 H Urine Glucose (UA) Normal Urine Ketones Negative Urine Occult Blood Negative Urine Nitrite Negative Urine Bilirubin Negative Urine Urobilinogen Normal Ur Leukocyte Esterase 25 H Urine RBC 0 SEEN Urine WBC 0-5 SEEN Ur Squamous Epith Cells 0-5 SEEN Urine Bacteria 0 SEEN Urine Mucus 0 SEEN Assessment/Plan All Active Problems (HFpEF) heart failure with preserved ejection fraction (Acute) Hypotension (Acute) Chest pain, unspecified (Resolved) Shortness of breath (Acute) Wheezing (Acute) Acute kidney injury (Resolved) Abnormal cardiac enzyme level (Resolved) Cellulitis of right heel (Resolved) Chest pain (Resolved) Decubitus ulcer of heel, right, unstageable (Resolved) Shortness of breath (Resolved) hx epidural abscess (Resolved) 1. Acute HFpEF EF 38% from stress echo 11/03/18 hold oral Bumex and start IV furosemide monitor creatinine and BP already on carvedilol--will continue continue ARB RVSP from echo on 10/18/18 was 37mmHg. Outpt PSG to eval for LISSA. 2. Hypotension: transient maybe iatrogenic DC amlodipine put hold parameters on other BP meds 3. CKD 4 Creatinine has been variable, but up from earlier this month monitor 4. DM2 continue with Basal and SSI adjust as necessary 5. DVT proph: moderate risk. LMWH. 6. ACP: addressed code status with patient, he wishes to continue DNRCCA. Code Visit Inpatient E&M: [id number] Init Hosp L3
--- NOTE | 2019-02-04 16:19 | HP.PCM_ITS ---
Problem List (1) (HFpEF) heart failure with preserved ejection fraction Status: Acute Qualifiers: Heart failure chronicity: acute Qualified Code(s): I50.31 - Acute diastolic (congestive) heart failure (2) Hypotension Status: Acute Qualifiers: Hypotension type: unspecified hypotension type Qualified Code(s): I95.9 - Hypotension, unspecified (3) Debility Status: Chronic (4) Hypoxemia Status: Chronic (5) Chest pain, unspecified Status: Inactive (6) LISSA (obstructive sleep apnea) Status: Acute (7) Decubitus ulcer of heel, right, unstageable Status: Resolved (8) Cellulitis of right heel Status: Resolved (9) Anemia Status: Chronic Qualifiers: Anemia type: unspecified type Qualified Code(s): D64.9 - Anemia, unspecified (10) S/P PTCA (percutaneous transluminal coronary angioplasty) Status: Chronic (11) Cardiomyopathy Status: Chronic Qualifiers: Cardiomyopathy type: ischemic Comment: 38% gated nuclear EF on 11/03/18 (12) ICD (implantable cardioverter-defibrillator) in place Status: Chronic (13) mediport placement Status: Chronic (14) Hyperlipidemia Status: Chronic (15) DM type 2 (diabetes mellitus, type 2) Status: Chronic 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 The patient is a 63 year old M stared experiencing dizziness/lightheadedness last night. Presented to the ED today and was found to be hypotensive with BP of 79/31. he was having abdominal pain and he received 1 liter of NS. BP subsequently improved. Given his abdominal pain, he underwent a CT AP which showed extensive anasarca, mesenteic edema, trace perihepatic ascites and bilateral pleural effusions. He then received 40mg of IV lasix. Patient was admitted earlier this month with CHF exacerbation.[] Past Medical History Past Medical History (Chronic Problems): Chronic Problems Debility (Chronic) Hypoxemia (Chronic) LISSA (obstructive sleep apnea) (Chronic) Anemia (Chronic) S/P PTCA (percutaneous transluminal coronary angioplasty) (Chronic) Cardiomyopathy (Chronic) 38% gated nuclear EF on 11/03/18 ICD (implantable cardioverter-defibrillator) in place (Chronic) mediport placement (Chronic) Hyperlipidemia (Chronic) DM type 2 (diabetes mellitus, type 2) (Chronic) Chronic CHF (congestive heart failure) (Chronic) ef=25% as of 04/04 Carotid artery stenosis (Chronic) R CEA CAD (coronary artery disease) (Chronic) extensive disease multiple stents Hx of CABG (Chronic) Obesity (Chronic) Benign hypertension (Chronic) Allergies metoclopramide HCl [From Reglan] Adverse Reaction (Verified 02/04/19 11:17) goofy, anxious, elevated BP ondansetron HCl [From Zofran] Adverse Reaction (Verified 02/04/19 11:17) goofy, anxious, elevated BP Giygzkg-Zzq-Awr Reductase Inhibitor Adverse Reaction (Verified 02/04/19 11:17) rhabdomyolosis Home Medications: Ambulatory Orders Medication Instructions Recorded Gabapentin 300 mg PO BID 10/13/18 Hydroxyzine HCl 25 mg PO BID PRN 10/13/18 hydrALAZINE [Apresoline] 25 mg PO BID 10/13/18 Ipratropium/Albuterol Sulfate 3 ml INHALATION Q4H PRN PRN 01/12/19 [Duoneb] Lidocaine [Lidoderm Patch] 1 patch TOPICAL DAILY 01/12/19 Sertraline HCl 100 mg PO DAILY 01/12/19 Tamsulosin HCl [Flomax] 0.4 mg PO DAILY 01/12/19 Carvedilol [Coreg (Beta Ronald)] 25 mg PO BID tablet 01/13/19 Duloxetine Hcl [Cymbalta] 30 mg PO DAILY capsule 01/13/19 Insulin Glargine [Lantus SoloStar 10 units SC QHS pen 01/13/19 Pen] Losartan Potassium [Cozaar] 50 mg PO DAILY tablet 01/13/19 Heparin Injection (Vial) [Heparin 5,000 unit SC TID 01/14/19 Na] Insulin Lispro [Humalog Nilesh See Protocol SQ 4X/DAY 01/14/19 Kwikpen] traMADol [Ultram] 50 mg PO Q8H PRN PRN 01/14/19 Bumetanide [Bumex] 2 mg PO DAILY 01/18/19 Melatonin 3 mg PO QHS 01/19/19 Amlodipine [Norvasc] 10 mg PO DAILY #0 01/22/19 Bisacodyl 10 mg RC QHS PRN PRN 02/04/19 Magnesium Hydroxide [Milk of 30 ml PO DAILY PRN PRN 02/04/19 Magnesia] Mineral Oil 1 bottle RC DAILY PRN PRN 02/04/19 Nitroglycerin [Nitrostat] 0.4 mg SUBLINGUAL Q5M PRN 02/04/19 Nystatin Powder [Mycostatin Powder] 1 applic TOPICAL TID 02/04/19 Surgical History: appendectomy, cataract, cholecystectomy, coronary bypass surgery - 2005 - [place], herniorrhaphy, tonsillectomy, - - Cardiac stent placement ?24 (according to patient), right carotid endarterectomy. Lives: [facility] Smoking Status: Never smoker - *Family History Maternal History Items: No pertinent history Paternal History Items: Heart Disease - of an ID at age 61 Sibling History Items: No pertinent history Review of Systems Constitutional: Reports: Weakness. Denies: Anorexia, Chills, Fever, Malaise Eyes: Reports: - - dizziness. Denies: Blurred vision, Double vision HEENT: Denies: Head Aches, Sinus Congestion, Sinus Drainage Cardiovascular: Reports: Edema. Denies: Chest Pain, Palpitations Respiratory: Denies: Cough, Shortness of breath at rest, Sputum production Gastrointestinal: Reports: Abdominal Pain. Denies: Nausea, Vomiting Genitourinary: Denies: Dysuria Musculoskeletal: Reports: - - pain in right groin. Denies: Joint Pain, Joint Tenderness Skin: Denies: Dryness, Rash Neurological: Denies: Blurred vision, Double vision, Focal weakness, Numbness, Tingling Psychiatric: Denies: Anxiety, Depression Endocrine: Denies: Change in Body Habitus Hematologic/ Lymphatic: Denies: Easy Bruising, Easy Bleeding, Hx of blood clot Comment: A 10 point review of systems were negative except as mentioned in the history of present illness and the other review of systems. VTE Information - Inpt Only VTE Present on Admission: No VTE Mechan Device Prophylaxis: None VTE Pharm Prophylaxis ordered?: Yes Patient Problems: Active and Suspected Problems (HFpEF) heart failure with preserved ejection fraction (Acute) Hypotension (Acute) - Physical Exam General: Alert, No apparent distress HEENT: Atraumatic, Normocephalic, - - no sceral icterus Oral: Moist Mucosa, No Gingival or Mucosal Lesions/ Ulcerations Neck: No Nodes, Thyroid Normal Size and Texture Lungs: Clear to auscultation, Normal air movement, No rhonchi, No wheeze Cardiovascular: Regular rate, Regular Rhythm, Normal S1, Normal S2, No murmurs Abdomen: Bowel Sounds Present, Soft, Non Tender, Non-Distended, No Hepato- splenomegaly Extremities: No Calf Tenderness, Edema - trace Skin: No rashes, No breakdown Musculoskeletal: No Muscle Wasting, - - TTP in right groin--no hernia. Psych/Mental Status: Normal Affect, Appropriate Vital Signs Temp Pulse Resp BP Pulse Ox 37.2 C 52 L 14 89/55 L 97 02/04/19 11:09 02/04/19 16:01 02/04/19 16:01 02/04/19 15:03 02/04/19 16:01 Oxygen Flow Rate (L/min) 2 Oxygen Delivery Method Nasal Cannula Weight: 109.6 kg Body Mass Index (BMI) 35.6 Finger Stick Blood Glucose 42 Laboratory Tests Past 24 Hrs 02/04/19 02/04/19 02/04/19 11:50 11:50 11:50 WBC 6.5 RBC 3.06 L Hgb 9.0 L Hct 27.9 L MCV 91.2 MCH 29.4 MCHC 32.3 RDW 15.1 H RDW Differential 49.8 H Plt Count 148 L MPV 9.7 Immature Gran % (Auto) 0.200 Neut % (Auto) 65.6 Lymph % (Auto) 18.4 L [place] % (Auto) 11.9 H Eos % (Auto) 3.4 Baso % (Auto) 0.5 Absolute Neuts (auto) 4.2 Absolute Lymphs (auto) 1.19 Total Counted Not Reportable PT INR APTT Sodium 136 Potassium 4.5 Chloride 101 Carbon Dioxide 30.0 Anion Gap 5 BUN 39 H Creatinine 1.42 H Estim Creat Clear Calc 53.94 Est GFR (MDRD) Af Amer 65 Est GFR (MDRD) Non-Af 54 L BUN/Creatinine Ratio 27.5 H Glucose 149 H Lactic Acid 0.8 Calcium 8.2 L Total Bilirubin 0.50 AST 37 ALT 47 Alkaline Phosphatase 128 H Troponin I 0.023 Total Protein 6.3 L Albumin 3.0 L Globulin 3.3 Albumin/Globulin Ratio 0.9 Urine Color Urine Clarity Urine pH Ur Specific [place] Urine Protein Urine Glucose (UA) Urine Ketones Urine Occult Blood Urine Nitrite Urine Bilirubin Urine Urobilinogen Ur Leukocyte Esterase Urine RBC Urine WBC Ur Squamous Epith Cells Urine Bacteria Urine Mucus 02/04/19 02/04/19 11:50 14:12 WBC RBC Hgb Hct MCV MCH MCHC RDW RDW Differential Plt Count MPV Immature Gran % (Auto) Neut % (Auto) Lymph % (Auto) [place] % (Auto) Eos % (Auto) Baso % (Auto) Absolute Neuts (auto) Absolute Lymphs (auto) Total Counted PT 15.0 H INR 1.2 APTT 34.3 Sodium Potassium Chloride Carbon Dioxide Anion Gap BUN Creatinine Estim Creat Clear Calc Est GFR (MDRD) Af Amer Est GFR (MDRD) Non-Af BUN/Creatinine Ratio Glucose Lactic Acid Calcium Total Bilirubin AST ALT Alkaline Phosphatase Troponin I Total Protein Albumin Globulin Albumin/Globulin Ratio Urine Color Yellow Urine Clarity Sl. Cloudy Urine pH 5.0 Ur Specific [place] 1.015 Urine Protein 100 H Urine Glucose (UA) Normal Urine Ketones Negative Urine Occult Blood Negative Urine Nitrite Negative Urine Bilirubin Negative Urine Urobilinogen Normal Ur Leukocyte Esterase 25 H Urine RBC 0 SEEN Urine WBC 0-5 SEEN Ur Squamous Epith Cells 0-5 SEEN Urine Bacteria 0 SEEN Urine Mucus 0 SEEN Assessment/Plan All Active Problems (HFpEF) heart failure with preserved ejection fraction (Acute) Hypotension (Acute) Chest pain, unspecified (Resolved) Shortness of breath (Acute) Wheezing (Acute) Acute kidney injury (Resolved) Abnormal cardiac enzyme level (Resolved) Cellulitis of right heel (Resolved) Chest pain (Resolved) Decubitus ulcer of heel, right, unstageable (Resolved) Shortness of breath (Resolved) hx epidural abscess (Resolved) 1. Acute HFpEF * EF 38% from stress echo 11/03/18 * hold oral Bumex and start IV furosemide * monitor creatinine and BP * already on carvedilol--will continue * continue ARB * RVSP from echo on 10/18/18 was 37mmHg. Outpt PSG to eval for LISSA. 2. Hypotension: * transient * maybe iatrogenic * DC amlodipine * put hold parameters on other BP meds 3. CKD 4 * Creatinine has been variable, but up from earlier this month * monitor 4. DM2 * continue with Basal and SSI * adjust as necessary 5. DVT proph: moderate risk. LMWH. 6. ACP: addressed code status with patient, he wishes to continue DNRCCA. Code Visit Inpatient E&M: [id number] Init Hosp L3
--- NOTE | 2019-02-04 17:12 | NURSING ---
Attempted to obtain MAR from [facility], message left to fax MAR to [phone] after remaining on hold for over 5 minutes.
[2019-02-04] MEDS: traMADol 50 MG Tablet PO (17:26)
[2019-02-04 17:36] LABS: Bedside Glucose 110 mg/dL (70-110)
[2019-02-04] MEDS: Gabapentin 300 MG Capsule PO (17:41)
--- NOTE | 2019-02-04 17:41 | CASEMGMT ---
RN CM Assessment Introduced role of RN CM to patient.? Patient is alert, oriented and able?to participate in RN CM Assessment. ?Care providers, pharmacy, and demographics verified. Presentation: Generalized Weakness, Lightheaded Admit Dx: CHF Re-Admit: Yes, 01/18-01/22/19 CHF, [facility] DC[facility] for PT[facility] Barriers/Issues: None PCP: Dr Hollingsworth in [place]. [facility] needs to establish one closer to home. Specialists: None Preferred [facility]acy: [facility] Insurance: [employer], [facility] Benefit:?Yes LNOK: Dtr Lorie Colunga LW/HPOA: Yes Both, HPOA- Dtr Lorie Colunga Living Arrangements:? Lives alone at [address] [place] [address]. Lower Level Apartment. No steps to enter. States Dtr sometimes stays with him. ADL?s: Ambulates with walker or Rollator. Independent with ADL's Transportation: Patient Drives, Squad per patient to take him back to [facility] DME: CPAP-Neda, Walker, Rollator, Shower Chairs, Grab Bars HHC: None SNF: Current at [facility] for PT/OT per patient Goal: Back to [facility] and then home DC PLAN: [facility] resumption. DOC Ackerman
--- NOTE | 2019-02-04 18:14 | NURSING ---
Spoke w/ Staci at [facility] and states she will send over today's MAR.
[2019-02-04] MEDS: Heparin Injection (Vial) 5,000 UNIT/ML VIAL 5000 UNIT SC (22:36)
[2019-02-04] MEDS: Nystatin Powder 15gm Bottle 1 APPLIC TOPICAL (22:36)
[2019-02-04] MEDS: MELATONIN 3 MG TABLET PO (22:36)
[2019-02-04 22:45] LABS: Bedside Glucose 127 mg/dL (70-110)
[2019-02-04] MEDS: Carvedilol 6.25 MG Tablet PO (23:17)
[2019-02-05] VITALS (7 sets, daily range): BP systolic 117–126; BP diastolic 53–69; PULSE 51–58; RESP 16–18; TEMP 36.3–36.6; O2SAT 94–96
[2019-02-05] MEDS: traMADol 50 MG Tablet PO (04:00)
[2019-02-05 05:22] LABS: Anion Gap 5 (5-15); BUN 41 mg/dL (7-18); BUN/Creat Ratio 28.1 RATIO (10-20); Calcium,Total 8.2 mg/dL (8.5-10.1); Chloride 103 mmol/L (98-107); Creatinine, Serum 1.46 mg/dL (0.70-1.30); EST Glomerular Filtration Rate 52 mL/min (>60); Est Glom Filt Rate - Afr Amer 63 mL/min (>60); Estimated Creatinine Clearance 52.46 ml/min; Glucose 134 mg/dL (74-106); Potassium 4.5 mmol/L (3.5-5.1); Sodium Level 138 mmol/L (136-145)
[2019-02-05] MEDS: Heparin Injection (Vial) 5,000 UNIT/ML VIAL 5000 UNIT SC (06:39)
[2019-02-05 06:50] LABS: Bedside Glucose 133 mg/dL (70-110)
[2019-02-05] MEDS: proMETHazine 25 MG/ML Syringe 6.25 MG IV (09:08)
[2019-02-05] MEDS: Furosemide 40 MG/4 ML Vial IV (09:09)
[2019-02-05] MEDS: Tamsulosin HCl 0.4 MG Capsule PO (09:10)
[2019-02-05] MEDS: DULoxetine Hcl 30 MG Capsule PO (09:10)
[2019-02-05] MEDS: Losartan Potassium 50 MG Tablet PO (09:10)
[2019-02-05] MEDS: hydrALAZINE 25 MG Tablet PO (09:10)
[2019-02-05] MEDS: Sertraline 100 MG Tablet PO (09:10)
[2019-02-05] MEDS: Gabapentin 300 MG Capsule PO (09:11)
[2019-02-05] MEDS: Acetaminophen 325 MG Tablet 650 MG PO (09:11)
[2019-02-05] MEDS: Carvedilol 12.5 MG Tablet PO (11:12)
[2019-02-05] MEDS: Insulin Lispro 100 UNIT/ML INSULN.PEN SQ (11:13)
[2019-02-05 11:50] LABS: Bedside Glucose 182 mg/dL (70-110)
--- NOTE | 2019-02-05 11:54 | PCM.TXEXTCAR ---
- Diet 02/04/19 16:53 Diet: Cardiac/Low Cholesterol Food consistency:: Regular Liquid Consistency:: Regular/Thin - Routine Orders/Code Status Routine Lab Work: [facility] LT FOOT Wound Type: SCRATCHES RT FA Wound Type: Burn - Therapies Physical Therapy: Eval and Treat Occupational Therapy: Eval and Treat - Problem/Diagnosis (1) (HFpEF) heart failure with preserved ejection fraction Status: Acute Current Visit: Yes (2) Hypotension Status: Acute Current Visit: Yes (3) Debility Status: Chronic Current Visit: No (4) Hypoxemia Status: Chronic Current Visit: No (5) Chest pain, unspecified Status: Resolved Current Visit: No (6) LISSA (obstructive sleep apnea) Status: Chronic Current Visit: No (7) Decubitus ulcer of heel, right, unstageable Status: Resolved Current Visit: No (8) Cellulitis of right heel Status: Resolved Current Visit: No (9) Anemia Status: Chronic Current Visit: No (10) S/P PTCA (percutaneous transluminal coronary angioplasty) Status: Chronic Current Visit: No (11) Cardiomyopathy Status: Chronic Comment: 38% gated nuclear EF on 11/03/18 Current Visit: No (12) ICD (implantable cardioverter-defibrillator) in place Status: Chronic Current Visit: No (13) mediport placement Status: Chronic Current Visit: No (14) Hyperlipidemia Status: Chronic Current Visit: No (15) DM type 2 (diabetes mellitus, type 2) Status: Chronic Current Visit: No (16) Chronic CHF (congestive heart failure) Status: Chronic Comment: ef=25% as of 04/04 Current Visit: No (17) Carotid artery stenosis Status: Chronic Comment: R CEA Current Visit: No (18) CAD (coronary artery disease) Status: Chronic Comment: extensive disease multiple stents Current Visit: No (19) Hx of CABG Status: Chronic Current Visit: No (20) Obesity Status: Chronic Current Visit: No (21) Benign hypertension Status: Chronic Current Visit: No - Allergies/Procedures Done in Hospital Allergies/Adverse Reactions: Allergies metoclopramide HCl [From Reglan] Adverse Reaction (Verified 02/04/19 11:17) goofy, anxious, elevated BP ondansetron HCl [From Zofran] Adverse Reaction (Verified 02/04/19 11:17) goofy, anxious, elevated BP Mpmttau-Eom-Kzr Reductase Inhibitor Adverse Reaction (Verified 02/04/19 11:17) rhabdomyolosis - Type of Care/Length of Stay Estimated LOS: Convalescent Care Less Than 30 days Type of Care Needed: Skilled Rehab Potential: Fair Prognosis: Fair - Additional Orders/Day of Discharge Day of Discharge: 02/05/19 - Dietary and Speech Recommendations Dietitian Recommendations/Changes: Recommend Low-Sodium/Cardiac 2000 Calorie Controlle Diet with 1500ml fluid restriction. - Follow Up Care Primary Care Physician: Malik Roper,Out of [NON-STAFF] - Within 2 Weeks Please Follow Up With: Faisal Rg MD When: 1-2 months
--- NOTE | 2019-02-05 11:58 | TREXTCAR_ITS ---
- Diet 02/04/19 16:53 Diet: Cardiac/Low Cholesterol Food consistency:: Regular Liquid Consistency:: Regular/Thin - Routine Orders/Code Status Routine Lab Work: [facility] Wound(s) LT FOOT Wound Type: SCRATCHES RT FA Wound Type: Burn - Therapies Physical Therapy: Eval and Treat Occupational Therapy: Eval and Treat - Problem/Diagnosis (1) (HFpEF) heart failure with preserved ejection fraction Status: Acute Current Visit: Yes (2) Hypotension Status: Acute Current Visit: Yes (3) Debility Status: Chronic Current Visit: No (4) Hypoxemia Status: Chronic Current Visit: No (5) Chest pain, unspecified Status: Resolved Current Visit: No (6) LISSA (obstructive sleep apnea) Status: Chronic Current Visit: No (7) Decubitus ulcer of heel, right, unstageable Status: Resolved Current Visit: No (8) Cellulitis of right heel Status: Resolved Current Visit: No (9) Anemia Status: Chronic Current Visit: No (10) S/P PTCA (percutaneous transluminal coronary angioplasty) Status: Chronic Current Visit: No (11) Cardiomyopathy Status: Chronic Comment: 38% gated nuclear EF on 11/03/18 Current Visit: No (12) ICD (implantable cardioverter-defibrillator) in place Status: Chronic Current Visit: No (13) mediport placement Status: Chronic Current Visit: No (14) Hyperlipidemia Status: Chronic Current Visit: No (15) DM type 2 (diabetes mellitus, type 2) Status: Chronic Current Visit: No (16) Chronic CHF (congestive heart failure) Status: Chronic Comment: ef=25% as of 04/04 Current Visit: No (17) Carotid artery stenosis Status: Chronic Comment: R CEA Current Visit: No (18) CAD (coronary artery disease) Status: Chronic Comment: extensive disease multiple stents Current Visit: No (19) Hx of CABG Status: Chronic Current Visit: No (20) Obesity Status: Chronic Current Visit: No (21) Benign hypertension Status: Chronic Current Visit: No - Allergies/Procedures Done in Hospital Allergies/Adverse Reactions: Allergies metoclopramide HCl [From Reglan] Adverse Reaction (Verified 02/04/19 11:17) goofy, anxious, elevated BP ondansetron HCl [From Zofran] Adverse Reaction (Verified 02/04/19 11:17) goofy, anxious, elevated BP Edwmvsg-Zcd-Urq Reductase Inhibitor Adverse Reaction (Verified 02/04/19 11:17) rhabdomyolosis - Type of Care/Length of Stay Estimated LOS: Convalescent Care Less Than 30 days Type of Care Needed: Skilled Rehab Potential: Fair Prognosis: Fair - Additional Orders/Day of Discharge Day of Discharge: 02/05/19 - Dietary and Speech Recommendations Dietitian Recommendations/Changes: Recommend Low-Sodium/Cardiac 2000 Calorie Controlle Diet with 1500ml fluid restriction. - Follow Up Care Primary Care Physician: Malik Roper,Out of [NON-STAFF] - Within 2 Weeks Please Follow Up With: Faisal Rg MD When: 1-2 months
--- NOTE | 2019-02-05 11:59 | PCM.DC.SUM ---
Discharge Date and Diagnosis - Problem List Patient Problems: Active and Suspected Problems (HFpEF) heart failure with preserved ejection fraction (Acute) Hypotension (Acute) Date of Admission: 02/04/19 Date of Discharge: 02/05/19 - Primary Discharge Diagnosis Active and Suspected Problems (HFpEF) heart failure with preserved ejection fraction (Acute) Hypotension (Acute) 1. Acute HFpEF EF 38% from stress echo 11/03/18 stable. resume Bumex 2mg but change from daily to BID monitor creatinine and BP already on carvedilol--will continue continue ARB RVSP from echo on 10/18/18 was 37mmHg. Outpt PSG to eval for LISSA. 2. Hypotension: transient maybe iatrogenic DC amlodipine put hold parameters on other BP meds 3. CKD 4 Creatinine has been variable, but up from earlier this month monitor 4. DM2 continue with Basal and SSI adjust as necessary - Secondary Discharge Diagnosis Chronic Problems Debility (Chronic) Hypoxemia (Chronic) LISSA (obstructive sleep apnea) (Chronic) Anemia (Chronic) S/P PTCA (percutaneous transluminal coronary angioplasty) (Chronic) Cardiomyopathy (Chronic) 38% gated nuclear EF on 11/03/18 ICD (implantable cardioverter-defibrillator) in place (Chronic) mediport placement (Chronic) Hyperlipidemia (Chronic) DM type 2 (diabetes mellitus, type 2) (Chronic) Chronic CHF (congestive heart failure) (Chronic) ef=25% as of 04/04 Carotid artery stenosis (Chronic) R CEA CAD (coronary artery disease) (Chronic) extensive disease multiple stents Hx of CABG (Chronic) Obesity (Chronic) Benign hypertension (Chronic) Hospital Course and Treatment Imaging Results: Clinical Impression(s) from Imaging Studies Abdomen/Pelvis CT 02/04/19 11:16 IMPRESSION: There is marked diffuse anasarca. Moderate diffuse mesenteric edema and trace perihepatic ascites. Moderate bilateral pleural effusions and bibasilar pulmonary edema. Findings are in keeping with fluid overload. There is diffuse urinary bladder wall thickening and perivesicular inflammation suggesting cystitis, correlate with UA. Electronically Signed: Enrique Doran, at 13:22 EDT Tel , Service support , Chest X-Ray 02/04/19 11:16 IMPRESSION: Stable examination. Electronically Signed: Alen Colin, at 11:35 EDT , Service support , Operations: None Procedures: None Summary of Care Provided: The patient is a 63 year old M does with abdominal pain. Patient had hypertension when he arrived received fluids. Patient had a CAT scan that showed anasarca as well as mesenteric edema. Concern was for heart failure as patient also did have pleural effusions. Patient was clinically not demonstrate any signs of symptoms of heart failure and his abdominal pain is certainly not attributable to his heart failure. Patient was brought to the hospital started on IV Lasix. His course was uncomplicated and otherwise doing well. Patient be changed over to Bumex 2 mg twice daily from daily. Patient still claims of some right groin pain which seems to be more of a muscle strain. [] Patient Problems: Active and Suspected Problems (HFpEF) heart failure with preserved ejection fraction (Acute) Hypotension (Acute) - Physical Exam General: Alert, Cooperative, No apparent distress HEENT: Atraumatic, Normocephalic Oral: Moist Mucosa, No Gingival or Mucosal Lesions/ Ulcerations Neck: No Nodes, Thyroid Normal Size and Texture Lungs: Clear to auscultation, Normal air movement, No rhonchi, No wheeze Cardiovascular: Regular rate, Regular Rhythm, Normal S1, Normal S2, No murmurs Abdomen: Bowel Sounds Present, Soft, Non Tender, Non-Distended, No Hepato-splenomegaly Vital Signs Temp Pulse Resp BP Pulse Ox 36.6 C 58 L 16 120/69 96 02/05/19 08:48 02/05/19 09:10 02/05/19 08:48 02/05/19 09:10 02/05/19 08:48 Oxygen Flow Rate (L/min) 2 Oxygen Delivery Method Room Air Weight: 109.2 kg Body Mass Index (BMI) 35.3 Finger Stick Blood Glucose 42 Intake and Output for Last 24 Hours 02/03/19 02/04/19 02/05/19 23:59 23:59 23:59 Intake Total 170 / 170 670 / 670 Output Total 1000 / 1000 Balance 170 / 170 -330 / -330 Laboratory Tests Past 24 Hrs 02/04/19 02/04/19 02/04/19 11:50 11:50 11:50 WBC 6.5 RBC 3.06 L Hgb 9.0 L Hct 27.9 L MCV 91.2 MCH 29.4 MCHC 32.3 RDW 15.1 H RDW Differential 49.8 H Plt Count 148 L MPV 9.7 Immature Gran % (Auto) 0.200 Neut % (Auto) 65.6 Lymph % (Auto) 18.4 L [place] % (Auto) 11.9 H Eos % (Auto) 3.4 Baso % (Auto) 0.5 Absolute Neuts (auto) 4.2 Absolute Lymphs (auto) 1.19 Total Counted Not Reportable PT INR APTT Sodium 136 Potassium 4.5 Chloride 101 Carbon Dioxide 30.0 Anion Gap 5 BUN 39 H Creatinine 1.42 H Estim Creat Clear Calc 53.94 Est GFR (MDRD) Af Amer 65 Est GFR (MDRD) Non-Af 54 L BUN/Creatinine Ratio 27.5 H Glucose 149 H Lactic Acid 0.8 Calcium 8.2 L Total Bilirubin 0.50 AST 37 ALT 47 Alkaline Phosphatase 128 H Troponin I 0.023 Total Protein 6.3 L Albumin 3.0 L Globulin 3.3 Albumin/Globulin Ratio 0.9 Urine Color Urine Clarity Urine pH Ur Specific [place] Urine Protein Urine Glucose (UA) Urine Ketones Urine Occult Blood Urine Nitrite Urine Bilirubin Urine Urobilinogen Ur Leukocyte Esterase Urine RBC Urine WBC Ur Squamous Epith Cells Urine Bacteria Urine Mucus 02/04/19 02/04/19 02/04/19 11:50 14:12 17:35 WBC RBC Hgb Hct MCV MCH MCHC RDW RDW Differential Plt Count MPV Immature Gran % (Auto) Neut % (Auto) Lymph % (Auto) [place] % (Auto) Eos % (Auto) Baso % (Auto) Absolute Neuts (auto) Absolute Lymphs (auto) Total Counted PT 15.0 H INR 1.2 APTT 34.3 Sodium Potassium Chloride Carbon Dioxide Anion Gap BUN Creatinine Estim Creat Clear Calc Est GFR (MDRD) Af Amer Est GFR (MDRD) Non-Af BUN/Creatinine Ratio Glucose Lactic Acid Calcium Total Bilirubin AST ALT Alkaline Phosphatase Troponin I 0.027 Total Protein Albumin Globulin Albumin/Globulin Ratio Urine Color Yellow Urine Clarity Sl. Cloudy Urine pH 5.0 Ur Specific [place] 1.015 Urine Protein 100 H Urine Glucose (UA) Normal Urine Ketones Negative Urine Occult Blood Negative Urine Nitrite Negative Urine Bilirubin Negative Urine Urobilinogen Normal Ur Leukocyte Esterase 25 H Urine RBC 0 SEEN Urine WBC 0-5 SEEN Ur Squamous Epith Cells 0-5 SEEN Urine Bacteria 0 SEEN Urine Mucus 0 SEEN 02/04/19 02/05/19 22:26 04:57 WBC RBC Hgb Hct MCV MCH MCHC RDW RDW Differential Plt Count MPV Immature Gran % (Auto) Neut % (Auto) Lymph % (Auto) [place] % (Auto) Eos % (Auto) Baso % (Auto) Absolute Neuts (auto) Absolute Lymphs (auto) Total Counted PT INR APTT Sodium 138 Potassium 4.5 Chloride 103 Carbon Dioxide 30.0 Anion Gap 5 BUN 41 H Creatinine 1.46 H Estim Creat Clear Calc 52.46 Est GFR (MDRD) Af Amer 63 Est GFR (MDRD) Non-Af 52 L BUN/Creatinine Ratio 28.1 H Glucose 134 H Lactic Acid Calcium 8.2 L Total Bilirubin AST ALT Alkaline Phosphatase Troponin I 0.025 Total Protein Albumin Globulin Albumin/Globulin Ratio Urine Color Urine Clarity Urine pH Ur Specific [place] Urine Protein Urine Glucose (UA) Urine Ketones Urine Occult Blood Urine Nitrite Urine Bilirubin Urine Urobilinogen Ur Leukocyte Esterase Urine RBC Urine WBC Ur Squamous Epith Cells Urine Bacteria Urine Mucus POC Glucose 02/05/19 02/05/19 02/04/19 11:07 06:42 22:31 POC Glucose 182 H 133 H 127 H 02/04/19 17:29 POC Glucose 110 Discharge Diet: 1800 Calorie Control Diet, 6 Cup Fluid Restriction, 2000 mg Sodium Diet Discharge Activity: Return to Normal Activity Call your doctor if you observe: Fever of 101 or Higher, Shortness of breath Home Medications: Medications to take at Discharge Gabapentin 300 mg PO BID 10/13/18 Hydroxyzine HCl 25 mg PO BID PRN 10/13/18 hydrALAZINE [Apresoline] 25 mg PO BID 10/13/18 Ipratropium/Albuterol Sulfate [Duoneb] 3 ml INHALATION Q4H PRN PRN 01/12/19 Lidocaine [Lidoderm Patch] 1 patch TOPICAL DAILY PRN 01/12/19 Sertraline HCl 100 mg PO DAILY 01/12/19 Tamsulosin HCl [Flomax] 0.4 mg PO DAILY 01/12/19 Carvedilol [Coreg (Beta Ronald)] 25 mg PO BID tablet 01/13/19 Duloxetine Hcl [Cymbalta] 30 mg PO DAILY capsule 01/13/19 Insulin Glargine [Lantus SoloStar Pen] 10 units SC QHS pen 01/13/19 Losartan Potassium [Cozaar] 50 mg PO DAILY tablet 01/13/19 Insulin Lispro [Humalog Nilesh Kwikpen] See Protocol SQ ACHS 01/14/19 traMADol [Ultram] 50 mg PO Q6H PRN PRN 01/14/19 Bumetanide [Bumex] 2 mg PO DAILY 01/18/19 Melatonin 3 mg PO QHS 01/19/19 Amlodipine [Norvasc] 10 mg PO DAILY #0 01/22/19 Bisacodyl 10 mg RC QHS PRN PRN 02/04/19 Magnesium Hydroxide [Milk of Magnesia] 30 ml PO DAILY PRN PRN 02/04/19 Mineral Oil 1 bottle RC DAILY PRN PRN 02/04/19 Nitroglycerin [Nitrostat] 0.4 mg SUBLINGUAL Q5M PRN 02/04/19 Acetaminophen [Tylenol Tablet] 650 mg PO Q6H PRN PRN tablet 02/05/19 Primary Care Physician: [facility] Doctor,Out of [NON-STAFF] - Within 2 Weeks Please Follow Up With: Faisal Rg MD When: 1-2 months Disposition: Residential facility Minutes spent on discharge:: 32 Patient Condition:: Fair Medical Necessity - Tobacco Use Smoking Status: Never smoker Meaningful Use Info Meaningful Use Diagnoses (Choose all that apply): CHF - CHF SHEEBA/ARB ordered at discharge?: Yes Documented LVEF (%): 38 Code Visit OBSV E&M: 86506 Observation care discharge
--- NOTE | 2019-02-05 12:03 | DS.PCM_ITS ---
Discharge Date and Diagnosis - Problem List Patient Problems: Active and Suspected Problems (HFpEF) heart failure with preserved ejection fraction (Acute) Hypotension (Acute) Date of Admission: 02/04/19 Date of Discharge: 02/05/19 - Primary Discharge Diagnosis Active and Suspected Problems (HFpEF) heart failure with preserved ejection fraction (Acute) Hypotension (Acute) 1. Acute HFpEF * EF 38% from stress echo 11/03/18 * stable. resume Bumex 2mg but change from daily to BID * monitor creatinine and BP * already on carvedilol--will continue * continue ARB * RVSP from echo on 10/18/18 was 37mmHg. Outpt PSG to eval for LISSA. 2. Hypotension: * transient * maybe iatrogenic * DC amlodipine * put hold parameters on other BP meds 3. CKD 4 * Creatinine has been variable, but up from earlier this month * monitor 4. DM2 * continue with Basal and SSI * adjust as necessary - Secondary Discharge Diagnosis Chronic Problems Debility (Chronic) Hypoxemia (Chronic) LISSA (obstructive sleep apnea) (Chronic) Anemia (Chronic) S/P PTCA (percutaneous transluminal coronary angioplasty) (Chronic) Cardiomyopathy (Chronic) 38% gated nuclear EF on 11/03/18 ICD (implantable cardioverter-defibrillator) in place (Chronic) mediport placement (Chronic) Hyperlipidemia (Chronic) DM type 2 (diabetes mellitus, type 2) (Chronic) Chronic CHF (congestive heart failure) (Chronic) ef=25% as of 04/04 Carotid artery stenosis (Chronic) R CEA CAD (coronary artery disease) (Chronic) extensive disease multiple stents Hx of CABG (Chronic) Obesity (Chronic) Benign hypertension (Chronic) Hospital Course and Treatment Imaging Results: Clinical Impression(s) from Imaging Studies Abdomen/Pelvis CT 02/04/19 11:16 IMPRESSION: There is marked diffuse anasarca. Moderate diffuse mesenteric edema and trace perihepatic ascites. Moderate bilateral pleural effusions and bibasilar pulmonary edema. Findings are in keeping with fluid overload. There is diffuse urinary bladder wall thickening and perivesicular inflammation suggesting cystitis, correlate with UA. Electronically Signed: Enrique Doran, at 13:22 EDT Tel , Service support , Chest X-Ray 02/04/19 11:16 IMPRESSION: Stable examination. Electronically Signed: Alen Colin, at 11:35 EDT , Service support , Operations: None Procedures: None Summary of Care Provided: The patient is a 63 year old M does with abdominal pain. Patient had hypertension when he arrived received fluids. Patient had a CAT scan that showed anasarca as well as mesenteric edema. Concern was for heart failure as patient also did have pleural effusions. Patient was clinically not demonstrate any signs of symptoms of heart failure and his abdominal pain is certainly not attributable to his heart failure. Patient was brought to the hospital started on IV Lasix. His course was uncomplicated and otherwise doing well. Patient be changed over to Bumex 2 mg twice daily from daily. Patient still claims of some right groin pain which seems to be more of a muscle strain. [] Patient Problems: Active and Suspected Problems (HFpEF) heart failure with preserved ejection fraction (Acute) Hypotension (Acute) - Physical Exam General: Alert, Cooperative, No apparent distress HEENT: Atraumatic, Normocephalic Oral: Moist Mucosa, No Gingival or Mucosal Lesions/ Ulcerations Neck: No Nodes, Thyroid Normal Size and Texture Lungs: Clear to auscultation, Normal air movement, No rhonchi, No wheeze Cardiovascular: Regular rate, Regular Rhythm, Normal S1, Normal S2, No murmurs Abdomen: Bowel Sounds Present, Soft, Non Tender, Non-Distended, No Hepato- splenomegaly Vital Signs Temp Pulse Resp BP Pulse Ox 36.6 C 58 L 16 120/69 96 02/05/19 08:48 02/05/19 09:10 02/05/19 08:48 02/05/19 09:10 02/05/19 08:48 Oxygen Flow Rate (L/min) 2 Oxygen Delivery Method Room Air Weight: 109.2 kg Body Mass Index (BMI) 35.3 Finger Stick Blood Glucose 42 Intake and Output for Last 24 Hours 02/03/19 02/04/19 02/05/19 23:59 23:59 23:59 Intake Total 170 / 170 670 / 670 Output Total 1000 / 1000 Balance 170 / 170 -330 / -330 Laboratory Tests Past 24 Hrs 02/04/19 02/04/1919 11:50 11:50 11:50 WBC 6.5 RBC 3.06 L Hgb 9.0 L Hct 27.9 L MCV 91.2 MCH 29.4 MCHC 32.3 RDW 15.1 H RDW Differential 49.8 H Plt Count 148 L MPV 9.7 Immature Gran % (Auto) 0.200 Neut % (Auto) 65.6 Lymph % (Auto) 18.4 L [place] % (Auto) 11.9 H Eos % (Auto) 3.4 Baso % (Auto) 0.5 Absolute Neuts (auto) 4.2 Absolute Lymphs (auto) 1.19 Total Counted Not Reportable PT INR APTT Sodium 136 Potassium 4.5 Chloride 101 Carbon Dioxide 30.0 Anion Gap 5 BUN 39 H Creatinine 1.42 H Estim Creat Clear Calc 53.94 Est GFR (MDRD) Af Amer 65 Est GFR (MDRD) Non-Af 54 L BUN/Creatinine Ratio 27.5 H Glucose 149 H Lactic Acid 0.8 Calcium 8.2 L Total Bilirubin 0.50 AST 37 ALT 47 Alkaline Phosphatase 128 H Troponin I 0.023 Total Protein 6.3 L Albumin 3.0 L Globulin 3.3 Albumin/Globulin Ratio 0.9 Urine Color Urine Clarity Urine pH Ur Specific [place] Urine Protein Urine Glucose (UA) Urine Ketones Urine Occult Blood Urine Nitrite Urine Bilirubin Urine Urobilinogen Ur Leukocyte Esterase Urine RBC Urine WBC Ur Squamous Epith Cells Urine Bacteria Urine Mucus 02/04/19 02/04/19 02/04/19 11:50 14:12 17:35 WBC RBC Hgb Hct MCV MCH MCHC RDW RDW Differential Plt Count MPV Immature Gran % (Auto) Neut % (Auto) Lymph % (Auto) [place] % (Auto) Eos % (Auto) Baso % (Auto) Absolute Neuts (auto) Absolute Lymphs (auto) Total Counted PT 15.0 H INR 1.2 APTT 34.3 Sodium Potassium Chloride Carbon Dioxide Anion Gap BUN Creatinine Estim Creat Clear Calc Est GFR (MDRD) Af Amer Est GFR (MDRD) Non-Af BUN/Creatinine Ratio Glucose Lactic Acid Calcium Total Bilirubin AST ALT Alkaline Phosphatase Troponin I 0.027 Total Protein Albumin Globulin Albumin/Globulin Ratio Urine Color Yellow Urine Clarity Sl. Cloudy Urine pH 5.0 Ur Specific [place] 1.015 Urine Protein 100 H Urine Glucose (UA) Normal Urine Ketones Negative Urine Occult Blood Negative Urine Nitrite Negative Urine Bilirubin Negative Urine Urobilinogen Normal Ur Leukocyte Esterase 25 H Urine RBC 0 SEEN Urine WBC 0-5 SEEN Ur Squamous Epith Cells 0-5 SEEN Urine Bacteria 0 SEEN Urine Mucus 0 SEEN 02/04/19 02/05/19 22:26 04:57 WBC RBC Hgb Hct MCV MCH MCHC RDW RDW Differential Plt Count MPV Immature Gran % (Auto) Neut % (Auto) Lymph % (Auto) [place] % (Auto) Eos % (Auto) Baso % (Auto) Absolute Neuts (auto) Absolute Lymphs (auto) Total Counted PT INR APTT Sodium 138 Potassium 4.5 Chloride 103 Carbon Dioxide 30.0 Anion Gap 5 BUN 41 H Creatinine 1.46 H Estim Creat Clear Calc 52.46 Est GFR (MDRD) Af Amer 63 Est GFR (MDRD) Non-Af 52 L BUN/Creatinine Ratio 28.1 H Glucose 134 H Lactic Acid Calcium 8.2 L Total Bilirubin AST ALT Alkaline Phosphatase Troponin I 0.025 Total Protein Albumin Globulin Albumin/Globulin Ratio Urine Color Urine Clarity Urine pH Ur Specific [place] Urine Protein Urine Glucose (UA) Urine Ketones Urine Occult Blood Urine Nitrite Urine Bilirubin Urine Urobilinogen Ur Leukocyte Esterase Urine RBC Urine WBC Ur Squamous Epith Cells Urine Bacteria Urine Mucus POC Glucose 02/05/19 02/05/19 02/04/19 11:07 06:42 22:31 POC Glucose 182 H 133 H 127 H 02/04/19 17:29 POC Glucose 110 Discharge Diet: 1800 Calorie Control Diet, 6 Cup Fluid Restriction, 2000 mg Sodium Diet Discharge Activity: Return to Normal Activity Call your doctor if you observe: Fever of 101 or Higher, Shortness of breath Home Medications: Medications to take at Discharge Gabapentin 300 mg PO BID 10/13/18 Hydroxyzine HCl 25 mg PO BID PRN 10/13/18 hydrALAZINE [Apresoline] 25 mg PO BID 10/13/18 Ipratropium/Albuterol Sulfate [Duoneb] 3 ml INHALATION Q4H PRN PRN 01/12/19 Lidocaine [Lidoderm Patch] 1 patch TOPICAL DAILY PRN 01/12/19 Sertraline HCl 100 mg PO DAILY 01/12/19 Tamsulosin HCl [Flomax] 0.4 mg PO DAILY 01/12/19 Carvedilol [Coreg (Beta Ronald)] 25 mg PO BID tablet 01/13/19 Duloxetine Hcl [Cymbalta] 30 mg PO DAILY capsule 01/13/19 Insulin Glargine [Lantus SoloStar Pen] 10 units SC QHS pen 01/13/19 Losartan Potassium [Cozaar] 50 mg PO DAILY tablet 01/13/19 Insulin Lispro [Humalog Nilesh Kwikpen] See Protocol SQ ACHS 01/14/19 traMADol [Ultram] 50 mg PO Q6H PRN PRN 01/14/19 Bumetanide [Bumex] 2 mg PO DAILY 01/18/19 Melatonin 3 mg PO QHS 01/19/19 Amlodipine [Norvasc] 10 mg PO DAILY #0 01/22/19 Bisacodyl 10 mg RC QHS PRN PRN 02/04/19 Magnesium Hydroxide [Milk of Magnesia] 30 ml PO DAILY PRN PRN 02/04/19 Mineral Oil 1 bottle RC DAILY PRN PRN 02/04/19 Nitroglycerin [Nitrostat] 0.4 mg SUBLINGUAL Q5M PRN 02/04/19 Acetaminophen [Tylenol Tablet] 650 mg PO Q6H PRN PRN tablet 02/05/19 Primary Care Physician: [facility] Doctor,Out of [NON-STAFF] - Within 2 Weeks Please Follow Up With: Faisal Rg MD When: 1-2 months Disposition: Half-Way facility Minutes spent on discharge:: 32 Patient Condition:: Fair Medical Necessity - Tobacco Use Smoking Status: Never smoker Meaningful Use Info Meaningful Use Diagnoses (Choose all that apply): CHF - CHF SHEEBA/ARB ordered at discharge?: Yes Documented LVEF (%): 38 Code Visit OBSV E&M: 23374 Observation care discharge
--- NOTE | 2019-02-05 12:13 | CASEMGMT ---
Patient is ready for discharge back to [facility] at [place]. YOLANDA faxed orders to [facility]. YOLANDA called [facility] and arranged for patient to get picked up at via wheelchair van. YOLANDA notified RN, patient care secretary, as well as Jenni at [facility]. YOLANDA also let patient know and he said he would let his daughter know. Plan: d/c back to [facility] under skilled level of care. [facility] transported via wc van. Letty MOSCOSO MSW
== END 2019-02-05 12:58 | disposition skilled nursing facility (03) | DRG 291 ==
LOC: ED 12:11 → PCU 16:20
PROVIDERS: Emergency Provider Emergency Medicine
DX: I13.0 Hypertensive heart and chronic kidney disease with heart failure and stage 1 through stage 4 chronic kidney disease, or unspecified chronic kidney disease (principal); I50.31 Acute diastolic (congestive) heart failure; N18.4 Chronic kidney disease, stage 4 (severe); Z66 Do not resuscitate; I95.9 Hypotension, unspecified; E11.22 Type 2 diabetes mellitus with diabetic chronic kidney disease; G47.33 Obstructive sleep apnea (adult) (pediatric); E78.5 Hyperlipidemia, unspecified; I25.10 Atherosclerotic heart disease of native coronary artery without angina pectoris; Z95.5 Presence of coronary angioplasty implant and graft; Z95.1 Presence of aortocoronary bypass graft; E66.9 Obesity, unspecified; Z68.35 Body mass index [BMI] 35.0-35.9, adult; Z79.4 Long term (current) use of insulin
CPT/HCPCS: 36591; 71045; 74176; 80048; 80053; 81001; 82962; 83605; 84484; 85025; 85610; 85730; 87040; 93005; 97166; 99285; J7030; A4216; J1940

== ENCOUNTER → 2019-02-23 15:30 | Outpatient (CLI) | payer MEDICARE, OTHER, SELFPAY ==
[2018-11-05 18:26] LABS: Bedside Glucose 232 mg/dL (70-110)
[2019-02-04 16:48] VITALS: BMI 35.3
== END ==
PROVIDERS: Referring Provider Psychiatry & Neurology Neurology; Visit Provider Psychiatry & Neurology Neurology
DX: I70.213 Atherosclerosis of native arteries of extremities with intermittent claudication, bilateral legs (principal)
CPT/HCPCS: 82962

== ENCOUNTER → 2019-04-06 08:39 | Outpatient (CLI) | payer MEDICARE, OTHER, SELFPAY ==
[2019-03-26 10:59] VITALS: BMI 35.6
--- NOTE | 2019-04-06 08:45 | RDU_ITS ---
Reason For Study: CKD stage III Right Renal Artery Left Renal Artery Right renal artery distal 118/15 Left renal artery ostium 69/15 PSV/EDV. PSV/EDV. Right renal artery proximal 131/31 Left renal artery proximal PSV/EDV PSV/EDV. 93/20 . Right renal artery ostium 96/17 Left renal artery mid 129/22 RSV/EDV. PSV/EDV . RRA mid not visualized due to bowel Left renal artery distal 169/26 gas. PSV/EDV. Right Renal Parenchyma Left Renal Parenchyma Upper Pole Medula 44/8 PSV/EDV. Left upper pole medulla 38/6 Right upper pole medulla EDR 0.18 . PSV/EDV . Right upper pole medulla R.I. Left upper pole medulla EDR 0.16 . 0.82 . Left upper pole medulla R.I. 0.85 . Upper Tahir Cortx 30/6 PSV/EDV. UP Cortex 45/5 PSV/EDV. Right upper pole cortex EDR 0.20 . Left upper pole cortex EDR 0.11 . Right upper pole cortex R.I. 0.81 . Left upper pole cortex R.I. 0.88 . Right lower Pole medulla 47/7 Left lower Pole medulla 30/6 PSV/EDV . PSV/EDV . Right lower pole medulla EDR 0.15 . Left lower pole medulla EDR 0.20 . Right lower pole medulla R.I. Left lower pole medulla R.I. 0.79 . 0.86 . Lower Pole Cortx 18/4 PSV/EDV. Lower Pole Cortex 19/6 PSV/EDV. Left lower pole cortex EDR 0.22 . Right lower pole cortex EDR 0.32 . Left lower pole cortex R.I. 0.77 . Right lower pole cortex R.I. 0.70 . Left Renal Hilar Right Renal Hilar LT Hilar avg 195/23 PSV/EDV . Right Hilar avg 145/22 PSV/EDV. Left hilar acceleration time 50 Right hilar acceleration time 70 m/sec. m/sec. Left Renal Dimensions Right Renal Dimensions Left kidney size 12.23 cm . Right kidney size 13 cm . Left cortical dimension 1.85 cm . Right cortical dimension 1.52 cm . Aorta Proximal abdominal aorta 1.79cm x 1.76 cm . Proximal abdominal aorta peak systolic velocity is 123 cm/sec . Distal abdominal aorta 1.61cm x 1.76 cm . Distal abdominal aorta peak systolic velocity is 95 cm/sec . Procedures Very technically difficult due to bowel gas. Interpretation Summary Dimensions of the intra-abdominal aorta appear normal, without evidence of aneurysmal dilatation. Renal artery velocities are bilaterally normal. Acceleration times are normal bilaterally. There is no evidence of hemodynamically significant renal artery stenosis on either side. Renovascular resistance appears to be bilaterally elevated . The right cortical dimension is increased. The left cortical dimension is increased. Kidneys appear normal in size bilaterally. Ordering Physician: Alesha Blake Referring Physician: Alesha Blake Performed By: Robyn Byrnes, RDCS, RVT
== END ==
PROVIDERS: Referring Provider Internal Medicine Nephrology; Visit Provider Internal Medicine Nephrology
DX: N18.3 Chronic kidney disease, stage 3 (moderate) (principal)
CPT/HCPCS: 93975

== ENCOUNTER 2019-04-18 13:07 | Emergency (ER) | payer MEDICARE, OTHER, SELFPAY ==
[2019-04-06 11:58] VITALS: BMI 35.6
[2019-04-18 13:09] VITALS: BP 163/80; PULSE 71; RESP 16; TEMP 36.7; O2SAT 94; BMI 27.8
--- NOTE | 2019-04-18 13:28 | EKG12_ITS ---
Test Reason : PAIN Blood Pressure : / mmHG Vent. Rate : 068 BPM Atrial Rate : 068 BPM P-R Int : 244 ms QRS Dur : 166 ms QT Int : 468 ms P-R-T Axes : 059 250 044 degrees QTc Int : 497 ms Sinus rhythm with 1st degree A-V block Right bundle branch block Abnormal ECG Confirmed by AMY KEY, ARMIDA ([id number]), editor & co founder MATHIEU KOENIG ([id number] on 04/21/2019 11:54:23 AM Referred By: CINTIA Confirmed By:ARMIDA REYES MD
--- NOTE | 2019-04-18 13:30 | ED.VIS.GEN ---
History of Present Illness <Flaquito Mcnally - Last Filed: 04/18/19 15:13> Informant: Patient Onset: Weeks - 2 weeks Context: Gradual Onset Timing: Continuous Quality: aching Location: muscles in arms and legs Current Severity: Severe Maximum Severity: Severe Worsened by: movement Relieved by: rest Associated Symptoms: right hip pain Narrative: 63-year-old male who presents emergency department today for generalized malaise weakness as well as myalgias in his arms and legs. He was discharged from a [place] [facility] just a couple days ago after being admitted for rehab after suffering a subdural bleed. He feels tired. He denies any fevers chills coughing chest pain shortness of breath abdominal pain nausea vomiting or diarrhea. Denies any urinary symptoms. Denies falls injuries or trauma. Denies rash. Denies medication changes. Prior similar symptoms: Yes Recent Illness/Hospitalization: Yes <Jan Dawson - Last Filed: 04/18/19 15:25> Chief Complaint: Other, Pain/Inj Past Medical History - Family History Maternal Family History: Family History (Last Reviewed 04/06/19 @ 11:48 by Lorrie Sage) Father Sudden cardiac , Onset Age: 60 Brother CAD (coronary artery disease) History of coronary artery bypass surgery Paternal Family History: Family History (Last Reviewed 04/06/19 @ 11:48 by Lorrie Sage) Father Sudden cardiac , Onset Age: 60 Brother CAD (coronary artery disease) History of coronary artery bypass surgery Sibling Family History: Family History (Last Reviewed 04/06/19 @ 11:48 by Lorrie Sage) Father Sudden cardiac , Onset Age: 60 Brother CAD (coronary artery disease) History of coronary artery bypass surgery <Flaquito Mcnally - Last Filed: 04/18/19 15:13> Surgical History: appendectomy, cataract, cholecystectomy, coronary bypass surgery - 2005 - [place], herniorrhaphy, tonsillectomy, - - Cardiac stent placement ?24 (according to patient), right carotid endarterectomy. Smoking Status: Never smoker - Family History Maternal Family History: Family History (Last Reviewed 04/06/19 @ 11:48 by Lorrie Sage) Father Sudden cardiac , Onset Age: 60 Brother CAD (coronary artery disease) History of coronary artery bypass surgery Family History: Reports: No pertinent history Paternal Family History: Family History (Last Reviewed 04/06/19 @ 11:48 by Lorrie Sage) Father Sudden cardiac , Onset Age: 60 Brother CAD (coronary artery disease) History of coronary artery bypass surgery Family History: Reports: Heart Disease - of an ME at age 61 Sibling Family History: Family History (Last Reviewed 04/06/19 @ 11:48 by Lorrie Sage) Father Sudden cardiac , Onset Age: 60 Brother CAD (coronary artery disease) History of coronary artery bypass surgery Family History: Reports: No pertinent history <Jan Dawson - Last Filed: 04/18/19 15:25> - Allergies and Home Meds Allergies/Adverse Reactions: Allergies metoclopramide HCl [From Reglan] Adverse Reaction (Verified 04/18/19 13:08) goofy, anxious, elevated BP ondansetron HCl [From Zofran] Adverse Reaction (Verified 04/18/19 13:08) goofy, anxious, elevated BP Xexwrmy-Oeq-Qoi Reductase Inhibitor Adverse Reaction (Verified 04/18/19 13:08) rhabdomyolosis Primary Care Physician: Gumaro Kemp MD [Primary Care Provider] - Review of Systems All systems negative except as indicated General: Reports: Malaise Musculoskeletal: Reports: Myalgias <Jan Dawson - Last Filed: 04/18/19 15:25> Physical Exam Vital Signs/Narrative: Vital Signs Temp Pulse Resp BP Pulse Ox 04/18/19 13:09 98.1 F 71 16 163/80 H 94 <Mcnally,Flaquito - Last Filed: 04/18/19 15:13> Vital Signs/Narrative: Vital Signs Temp Pulse Resp BP Pulse Ox 04/18/19 13:09 98.1 F 71 16 163/80 H 94 Inital Vital Signs reviewed: Yes General: Well nourished, Well developed, No Acute Distress Head: Normocephalic, Atraumatic Eyes: Perrl, EOMI ENT: Moist mucous membranes Cardiovascular: Regular rate, Regular rhythm Respiratory: No distress, CTA bilaterally, Chest nontender Abdomen: Soft, Nontender, Nondistended, Normal bowel sounds, No masses Back: Nontender Extremities: Nontender, No edema Skin: Normal color, No rash Neurological: Alert, Oriented x3, Cranial nerves II-XII grossly intact, Normal Strength, Normal Sensation, Normal DTR <SamirJan - Last Filed: 04/18/19 15:25> Diagnostic/Tx/Re-eval Laboratory Results 04/18/19 04/18/19 13:55 13:55 WBC 7.8 RBC 3.78 L Hgb 10.5 L Hct 32.5 L MCV 86.0 MCH 27.8 MCHC 32.3 RDW 14.1 RDW Differential 44.2 H Plt Count 146 L MPV 9.4 Immature Gran % (Auto) 0.300 Neut % (Auto) 65.7 Lymph % (Auto) 18.6 L [place] % (Auto) 11.6 H Eos % (Auto) 3.3 Baso % (Auto) 0.5 Absolute Neuts (auto) 5.1 Absolute Lymphs (auto) 1.45 Total Counted Not Reportable Sodium 138 Potassium 4.5 Chloride 100 Carbon Dioxide 30.0 Anion Gap 8 BUN 52 H Creatinine 1.89 H Estim Creat Clear Calc 43.16 Est GFR (MDRD) Af Amer 47 L Est GFR (MDRD) Non-Af 39 L BUN/Creatinine Ratio 27.5 H Glucose 169 H Calcium 8.7 - Medical Decision Making Patient presents because he believes he is in a fog and complains of aching all over and generalized weakness. He denies fever or chills. He denies visual, ocular auditory symptoms. He denies chest pain. Denies shortness of breath. He did inform he has a history of congestive heart failure. He denies dysuria, frequency, urgency or hematuria. Denies black or maroon stool. He denies weakness in his upper or lower extremities. He denies problems with balance. Vital signs noted and blood pressure is elevated. HEENT exam is unremarkable. Lungs are clear to auscultation. Heart is regular. Abdomen soft nontender. Neuro exam is nonfocal. Patient is alert and oriented x3. He answers questions rapidly and correctly. Patient's work-up reveals no acute ab normality to explain his symptoms. Therefore plan is to discharge home and follow-up with his primary care physician in a week. Labs revealed mild chronic anemia and renal insufficiency. These would not explain his symptoms. <Flaquito Mcnally - Last Filed: 04/18/19 15:13> - EKG Initial EKG Interpretation: Sinus Rhythm Prior: Unchanged - Medical Decision Making Patient presents with malaise fatigue and weakness since being discharged from rehab yesterday. His labs are unremarkable. His exam is nonfocal. Discussed with patient at this time that we feel he is safe to be discharged back home. He does have a slightly elevated creatinine but not significantly from his baseline and he was given IV fluids. Patient is complaining of pain generalized in arms and legs and was given a Tylenol in the emergency department. Discussed with him I do not feel narcotics are indicated. He will be discharged home. <Jan Dawson - Last Filed: 04/18/19 15:25> ED Disposition <Flaquito Mcnally - Last Filed: 04/18/19 15:13> <Jan Dawson - Last Filed: 04/18/19 15:25> - Plan for ED Patient: Disposition: Home or Assisted Living Diagnosis: Generalized weakness, Myalgia Instructions: WEAKNESS, Unk Cause Referrals: Gumaro Kemp MD [Primary Care Provider] -
[2019-04-18 14:07] LABS: Absolute Lymphocyte Count 1.45 X10^3/ul (0.83-4.51); Absolute Neutrophil Count 5.1 X10^3/uL (2.0-7.7); Basophil# 0.04 X10^3/uL; Basophil% 0.5 % (0-1); Eosinophil# 0.26 X10^3/uL; Eosinophils% 3.3 % (0-5); Hematocrit 32.5 % (40-54); Hemoglobin 10.5 g/dl (13.0-16.5); Lymphocyte # 1.45 X10^3/ul (4.0); Lymphocyte % 18.6 % (19-41); Mean Corp Hgb Conc 32.3 g/gl (32-36); Mean Corpuscular Hgb 27.8 pg (27.0-32.0); Mean Platelet Vol. 9.4 fl (6.2-12.0); Monocyte% 11.6 % (0-10); Neutrophil # 5.12 X10^3/uL (2.7-7.7); Neutrophil % 65.7 % (47-70); POSITIVE COUNT NO; POSITIVE DIFFERENTIAL NO; POSITIVE MORPHOLOGY NO; Platelet Count 146 K/mm3 (150-450); RBC Distribution Width CV 14.1 % (11.6-14.6); RBC Distribution Width SD 44.2 fl (35.1-43.9); Red Blood Count 3.78 M/mm3 (4.6-6.2); White Blood Count 7.8 K/mm3 (4.4-11.0)
[2019-04-18] MEDS: Acetaminophen 325 MG Tablet 650 MG PO (14:09)
[2019-04-18 14:19] LABS: Anion Gap 8 (5-15); BUN 52 mg/dL (7-18); BUN/Creat Ratio 27.5 RATIO (10-20); Calcium,Total 8.7 mg/dL (8.5-10.1); Chloride 100 mmol/L (98-107); Creatinine, Serum 1.89 mg/dL (0.70-1.30); EST Glomerular Filtration Rate 39 mL/min (>60); Est Glom Filt Rate - Afr Amer 47 mL/min (>60); Estimated Creatinine Clearance 43.16 ml/min; Glucose 169 mg/dL (74-106); Potassium 4.5 mmol/L (3.5-5.1); Sodium Level 138 mmol/L (136-145)
[2019-04-18 15:34] VITALS: BP 164/88; PULSE 70; RESP 16
[2019-04-18 15:37] VITALS: BP 164/88; PULSE 70; RESP 16
== END 2019-04-18 15:52 | disposition home or self-care (01) ==
PROVIDERS: Emergency Provider Physician Assistant Medical; Family Provider Family Medicine; PCP Family Medicine
DX: R53.1 Weakness (principal); M79.10 Myalgia, unspecified site; Z82.49 Family history of ischemic heart disease and other diseases of the circulatory system
CPT/HCPCS: 36591; 80048; 85025; 93005; 99284; J7040; A4216